=== PATIENT | female | born 1970 | race Caucasian/White ===

== ENCOUNTER 2023-09-14 01:44 | Emergency (ER) | payer MEDICARE, MEDICAID, SELFPAY ==
[2023-09-14 01:45] VITALS: PULSE 120; RESP 16; TEMP 35.9; O2SAT 98; BMI 37.8
--- NOTE | 2023-09-14 01:46 | EX.ED.DYSGE1 ---
HPI History of Present Illness Chief Complaint: Abd Pain [facility] Medical History (Updated 09/14/23 @ 01:46 by Angela Miranda) Diabetes Home Medications lisinopril 2.5 mg tablet 2.5 mg PO BID 09/02/13 [History Last Taken Unknown] oxycodone-acetaminophen 10 mg-325 mg tablet (Percocet) 1 tab PO Q6H PRN PRN Pain 09/02/13 [History Last Taken Unknown] sulfamethoxazole 800 mg-trimethoprim 160 mg tablet (Bactrim DS) 1 tab PO BID 7 days #14 tabs 09/14/23 [Rx Last Taken Unknown] Allergy/AdvReac Type Severity Reaction Status Date / Time No Known Allergies Allergy Verified 09/14/23 01:45 Social History Smoking Status: Current every day smoker EXAM Physical Exam Const Vital Signs: 09/14/23 01:45 09/14/23 01:49 09/14/23 03:13 Temperature 96.7 F L Temperature Source Temporal Pulse Rate 120 H 108 H Respiratory Rate 16 15 Blood Pressure 238/131 H 198/113 H Blood Pressure Mean 166 141 Pulse Ox 98 96 Oxygen Delivery Method Room Air MDM MDM MDM Narrative Medical decision making narrative: HISTORY OF PRESENT ILLNESS: 53-year-old female here with lower abdominal pain. She states he has been suffering from 2 days of lower abdominal pain, urinary frequency urgency she thinks may have a UTI. She denies any chest pain, shortness of breath. Denies any headache. Denies any focal neurological deficits. Notes she has not been compliant with her home blood pressure regiment. REVIEW OF SYSTEMS: Pertinent positives: Abdominal pain, frequency, urgency Pertinent negatives: Headache, shortness of breath, chest pain, focal weakness. PHYSICAL EXAM: Nursing triage notes reviewed, Vital signs reviewed Constitutional: please see mdm HENT: MMM Eyes: Pupils equal round and reactive to light, Extraocular muscles intact Neck: No stridor, no JVD, full neck ROM Lungs: Clear to auscultation, No wheezing or rales. No increased work of breathing, no conversational dyspnea, no accessory muscle use, no nasal flaring. No respiratory distress noted Heart: Regular rate and rhythm, No murmurs, No rubs and No gallops, 2+ distal pulses (radial, femoral, posterior tibial) in all extremities Abdomen: Soft, lower abdominal tenderness but no rigidity, rebound or guarding, no obvious peritoneal signs, no palpable pulsatile abdominal masses, no auscultated abdominal bruit : No CVAT Extremities: No edema Neuro: No focal neurological deficits, cranial nerves II through XII intact, 5/5 strength in all extremities. Intact sensation to light touch in all extremities, 2+ reflexes bilateral patella tendons. Normal gait. No ataxia. Skin: No rash or lesions noted MEDICAL DECISION MAKING: Chief Complaint: Abdominal pain External records reviewed: Imaging studies reviewed: No recent advanced imaging the abdomen or pelvis Factors affecting care: Type 2 diabetes Social determinants of health: Current everyday smoker History obtained from others: none Consults: none [facility] Narrative: The patient was initially hypertensive, tachycardic otherwise had a nonfocal neuroexam and had lower abdominal tenderness. Patient notes she is typically hypertensive with blood pressures in the 200s typically. Patient also states she normally gets whitecoat hypertension. She just wanted her urine checked and just wanted antibiotics. Urine was consistent with acute UTI. Vital signs improved after home blood pressure medicine and pain medicine. She was still tachycardic and hypertensive however so I offered additional workup to rule out any signs of endorgan dysfunction including EKG and labs. Patient refused. Patient was alert and oriented x 3. Patient was not clinically intoxicated. She stated she like to go home with oral antibiotics follow-up with her primary doctor. She promised to return if symptoms change or worsen. Given the patient was alert and orient x 3 respected her decision and discharged home with prescription for Bactrim and close PCP follow-up. She was given strict return precautions. The patient and/or family, caregivers express understanding. The patient and/or family, caregivers agrees with the plan. Shared decision making: I will have a discussion with the patient and or visitors regarding risk/benefits of further testing or admission. They will be made aware of of the risk/benefits inherent in this decision they will be given the opportunity to voice understanding. Total critical care time today provided was at least 0 minutes. This excludes separately billable procedures. Critical care time (if documented) is secondary to the patient having high probability of clinically significant/life threatening deterioration in the patient's condition which required my urgent intervention. Impression: 1. Acute cystitis 2. Poorly controlled Hypertension 3. Tachycardia Dispo: Discharge Lab Data Labs: Laboratory Results - last 24 hr 09/14/23 01:45 Urine Color Yellow Urine Clarity Cloudy Urine pH 6.0 Ur Specific [place] 1.015 Urine Protein 100 H Urine Glucose (UA) 1000 H Urine Ketones Negative Urine Occult Blood 250 H Urine Nitrite Positive H Urine Bilirubin Negative Urine Urobilinogen Normal Ur Leukocyte Esterase 500 H Urine RBC > 100 SEEN Urine WBC 50-100 SEEN Ur Squamous Epith Cells 0-5 SEEN Urine Bacteria 1+ Urine Mucus 0 SEEN Discharge Plan Triage Chief Complaint: Abd Pain ED Provider: Elmer Gomes Dx/Rx/DC Orders Instructions: ED Hypertension, Established, ED Cystitis Female Adult Prescriptions: New sulfamethoxazole-trimethoprim [Bactrim DS] 800-160 mg tablet 1 tab PO BID 7 Days Qty: 14 0RF No Action oxycodone-acetaminophen [Percocet] 1 EACH tablet 1 tab PO Q6H PRN PRN (Reason: Pain) Patient Comments: PAIN lisinopril 2.5 MG tablet 2.5 mg PO BID Patient Comments: BLOOD PRESSURE Primary Care Provider: Care Physician,No Primary Referrals: Britt Galvez MD [Med Staff - [employer]] - Activity Restrictions/Additional Instructions: Thank you for trusting us with your care today! Please take Tylenol (2 pills, 650 mg), ibuprofen (2 pills, 400 mg) every 6 hours as needed for pain and fever control. Please take antibiotics as prescribed. Take your already prescribed home blood pressure medicine. Please return to the emergency department if your symptoms change or worsen. Specifically if you develop chest pain, shortness of breath, headache, slurred speech, loss of movement or sensation. Vomiting if you cannot take your antibiotics by mouth. Please follow with your primary care physician for further outpatient evaluation and management. Disposition Disposition: Home, Self Care
[2023-09-14 01:49] VITALS: BP 238/131
[2023-09-14 02:16] LABS: Color, Urine Yellow (Yellow); Glucose, Dipstick 1000 mg/dl (Normal); Ketone-Dipstick Negative (Negative); Leukocyte Esterase-Dipstick 500 /ul (Negative); Nitrite-Dipstick Positive (Negative); Occult Blood-Urine 250 /ul (Negative); Protein-Dipstick 100 mg/dl (Negative); Specific Gravity, Urine 1.015 (1.002-1.030); Urine Bilirubin Dipstick Negative (Negative); Urine Clarity Cloudy (Clear); Urine Urobilinogen Normal (Normal)
[2023-09-14 02:17] LABS: Mucous, Urine 0 SEEN /hpf (<or=2+)
[2023-09-14 02:22] LABS: Red Blood Cells-Urine > 100 SEEN /hpf (0-5)
[2023-09-14 02:23] LABS: Bacteria 1+ /hpf (None Seen); Squamous Epithelial Cells - UA 0-5 SEEN /hpf (5-10); White Blood Cells 50-100 SEEN /hpf (0-5)
[2023-09-14] MEDS: Oxycodone/Apap 5/325 Tablet PO (02:24)
[2023-09-14] MEDS: Lisinopril 20 MG Tablet PO (02:25)
[2023-09-14] MEDS: amLODIPine 10 MG Tablet PO (02:25)
[2023-09-14] MEDS: Smz/Tmp Ds Tablet 1 TABLET PO (02:51)
[2023-09-14 03:13] VITALS: BP 198/113; PULSE 108; RESP 15; O2SAT 96
== END 2023-09-14 03:48 | disposition home or self-care (01) ==
PROVIDERS: Emergency Provider Emergency Medicine; Visit Provider Emergency Medicine
DX: N30.00 Acute cystitis without hematuria (principal); E11.9 Type 2 diabetes mellitus without complications; R00.0 Tachycardia, unspecified; F17.200 Nicotine dependence, unspecified, uncomplicated; I10 Essential (primary) hypertension; Z79.899 Other long term (current) drug therapy
CPT/HCPCS: 81001; 99282

== ENCOUNTER 2023-09-16 05:45 | Emergency (ER) | payer MEDICARE, MEDICAID, SELFPAY ==
[2023-09-16 05:46] VITALS: BP 254/124; PULSE 118; RESP 18; TEMP 35.9; O2SAT 98; BMI 38.5
[2023-09-16 05:48] VITALS: BP 223/122; PULSE 118; RESP 18; TEMP 35.9; O2SAT 98
[2023-09-16 06:13] LABS: Absolute Neutrophil Count 10.1 X10^3/uL (2.0-7.7); Basophil# 0.07 X10^3/uL; Basophil% 0.5 % (0-1); Eosinophil# 0.13 X10^3/uL; Eosinophils% 0.9 % (0-5); Hematocrit 48.3 % (37-47); Hemoglobin 16.4 g/dL (12.0-15.0); Lymphocyte % 24.3 % (19-41); Mean Corpuscular Hgb 30.3 pg (27.0-32.0); Mean Corpuscular Volume 89.3 fL (81-99); Mean Platelet Vol. 12.4 fl (6.2-12.0); Monocyte# 1.15 X10^3/uL; Monocyte% 7.6 % (0-10); NRBC Flagged by Analyzer 0 % (0-5); Neutrophil # 10.09 X10^3/uL (2.7-7.7); Neutrophil % 66.2 % (47-70); Platelet Count 274 K/mm3 (150-450); RBC Distribution Width CV 12.8 % (11.6-14.6); RBC Distribution Width SD 41.5 fl (35.1-43.9); Red Blood Count 5.41 M/mm3 (4.2-5.4); White Blood Count 15.2 K/mm3 (4.4-11.0)
[2023-09-16 06:21] LABS: Bacteria 0 SEEN /hpf (None Seen); Mucous, Urine 0 SEEN /hpf (<or=2+); Red Blood Cells-Urine 0 SEEN /hpf (0-5)
[2023-09-16 06:22] LABS: Color, Urine Yellow (Yellow); Glucose, Dipstick 1000 mg/dl (Normal); Ketone-Dipstick Negative (Negative); Leukocyte Esterase-Dipstick Negative /ul (Negative); Nitrite-Dipstick Negative (Negative); Occult Blood-Urine 10 /ul (Negative); Protein-Dipstick 100 mg/dl (Negative); Urine Bilirubin Dipstick Negative (Negative); Urine Clarity Sl. Cloudy (Clear); Urine Urobilinogen Normal (Normal)
[2023-09-16 06:28] LABS: Squamous Epithelial Cells - UA 0-5 SEEN /hpf (5-10); White Blood Cells 5-10 SEEN /hpf (0-5)
--- NOTE | 2023-09-16 06:30 | EDS_ITS ---
HPI HPI - GI History of Present Illness Chief Complaint: Abd Pain Informant: patient Abdominal Pain/Flank Pain Onset: Today and Hours (6) Context: Gradual Onset Timing: Continuous Quality: - (Pressure) Location: RLQ Worsened by: Nothing Relieved by: Nothing Nausea/Vomiting/Emesis GI Symptom: Positive for Nausea; Negative for Vomiting Onset: Today Diarrhea/Melena/Hematochezia GI Symptom: Negative for Diarrhea, Melena or Hematochezia Associated Symptoms Associated Symptoms: Negative for Dysuria, Frequency or Hematuria Narrative Narrative: Patient presents with abdominal pain that began suddenly approximately 6 hours prior to arrival. Patient states it has been constant. Patient describes as a pressure. Patient states it is mainly over the right lower abdomen. Patient admits to some nausea but denies any vomiting. Patient denies any diarrhea, melena, or hematochezia. Patient denies any dysuria, frequency, or hematuria. Patient does admit to decreased urine output. Patient states nothing makes her pain better nothing makes it worse. Patient does admit to a decreased appetite. Patient states last time she ate anything was 11 PM last night. Patient states she did have some Sprite this morning at 5:45 AM. [facility] Medical History (Updated 09/16/23 @ 09:[address] Yaniv Tarango DO) Diabetes HTN (hypertension) Psoriasis Home Medications lisinopril 2.5 mg tablet 2.5 mg PO BID 09/02/13 [History Last Taken Unknown] oxycodone-acetaminophen 10 mg-325 mg tablet (Percocet) 1 tab PO Q6H PRN PRN Pain 09/02/13 [History Last Taken Unknown] sulfamethoxazole 800 mg-trimethoprim 160 mg tablet (Bactrim DS) 1 tab PO BID 7 days #14 tabs 09/14/23 [Rx Last Taken Unknown] ciprofloxacin HCl 500 mg tablet 500 mg PO BID #14 TABLETS 09/16/23 [Rx Last Taken Unknown] Allergy/AdvReac Type Severity Reaction Status Date / Time No Known Allergies Allergy Verified 09/16/23 05:51 Surgical History (Updated 09/16/23 @ 09:[address] Yaniv Tarango DO) History of nasal surgery Hx of cholecystectomy Hx of lymph node biopsy Social History Smoking Status: Current every day smoker tobacco type: cigarettes ROS ROS ED Constitutional Constitutional ED: Denies chills or fever(s) Eyes Eyes: Denies blurry vision or change in vision ENT ENT ED: Denies rhinorrhea or sore throat Cardiovascular Cardiovascular: Denies chest pain or palpitations Respiratory/Chest Respiratory/Chest: Denies cough or dyspnea Gastrointestinal Gastrointestinal: Reports abdominal pain and nausea; Denies vomiting Genitourinary Genitourinary ED: Denies dysuria or hematuria Musculoskeletal Musculoskeletal: Reports back pain; Denies neck pain Integumentary Denies abscess or rash Neurologic Neurologic: Reports headache(s); Denies weakness Allergic/Immunologic Allergic/Immunologic ED: Denies mouth swelling or urticaria EXAM Physical Exam Const Vital Signs: 09/16/23 05:46 09/16/23 05:48 09/16/23 05:48 Temperature 96.6 F L 96.6 F L Temperature Source Temporal Temporal Pulse Rate 118 H 118 H Respiratory Rate 18 18 Blood Pressure 254/124 H 223/122 H 223/122 H Blood Pressure Mean 167 155 155 Pulse Ox 98 98 09/16/23 07:14 09/16/23 07:39 Temperature Temperature Source Pulse Rate 97 Respiratory Rate Blood Pressure 163/93 H 166/96 H Blood Pressure Mean 116 119 Pulse Ox Positive well nourished and well developed General Appearance ED: well developed and NAD HEENT Reports moist mucous membranes normocephalic and atraumatic Resp normal respiratory effort and clear to auscultation bilaterally Cardio regular rate and regular rhythm GI Palpation: soft and tender RLQ and suprapubic; Negative for guarding Extremity full ROM General Extremety ED: Negative for edema or tenderness General Extremity: Negative for edema Neuro CN's II-XII intact bilaterally, moves all extremities and no sensory deficits noted Sensorium / Orientation: alert Motor Exam: strength 5/5 throughout Psych mental status grossly normal MDM MDM MDM Narrative Medical decision making narrative: Differential diagnosis includes appendicitis, gastroenteritis, ovarian cyst, ectopic , urinary tract infection, ureteral calculus, and gastroenteritis. CBC will be obtained to assess for leukocytosis and anemia. Comprehensive metabolic profile will be obtained to assess for hepatic function, renal function, and electrolyte abnormality. Urinalysis will be obtained to assess for urinary tract infection. CT scan of the abdomen and pelvis will be obtained to assess for appendicitis and ureteral calculus. Lab Data Attestation: I reviewed the patient's lab results. Lab results narrative: CBC was reviewed. There is mild leukocytosis of 15.2. Hemoglobin was 16.4 and hematocrit was 48.3. Comprehensive metabolic profile was reviewed. Glucose was elevated at 42. Anion gap was normal. Sodium slightly low at 135. BUN was normal at 14. Creatinine was slightly elevated at 1.56. The remainder was essentially within normal limits. Urinalysis was reviewed. There are 5-10 white blood cells but a negative leukocyte esterases. Urine glucose was thousand. Labs: Laboratory Results - last 24 hr 09/16/23 09/16/23 05:55 06:10 WBC 15.2 H RBC 5.41 H Hgb 16.4 H Hct 48.3 H MCV 89.3 MCH 30.3 MCHC 34.0 RDW Std Deviation 41.5 RDW Coeff of [place] 12.8 Plt Count 274 MPV 12.4 H Immature Gran % (Auto) 0.500 Neut % (Auto) 66.2 Lymph % (Auto) 24.3 Gage % (Auto) 7.6 Eos % (Auto) 0.9 Baso % (Auto) 0.5 Absolute Neuts (auto) 10.1 H Absolute Lymphs (auto) 3.70 Nucleated RBC % 0 Sodium 135 L Potassium 3.8 Chloride 103 Carbon Dioxide 25.0 Anion Gap 7 BUN 14 Creatinine 1.56 H Estim Creat Clear Calc 34.90 Est GFR (MDRD) Af Amer 45 L Est GFR (MDRD) Non-Af 37 L BUN/Creatinine Ratio 9.0 L Glucose 482 H* Calcium 9.1 Total Bilirubin 0.40 AST 13 L ALT 19 Alkaline Phosphatase 168 H Total Protein 9.1 H Albumin 3.7 Globulin 5.4 H Albumin/Globulin Ratio 0.7 L Urine Color Yellow Urine Clarity Sl. Cloudy Urine pH 6.0 Ur Specific [place] 1.020 Urine Protein 100 H Urine Glucose (UA) 1000 H Urine Ketones Negative Urine Occult Blood 10 H Urine Nitrite Negative Urine Bilirubin Negative Urine Urobilinogen Normal Ur Leukocyte Esterase Negative Urine RBC 0 SEEN Urine WBC 5-10 SEEN Ur Squamous Epith Cells 0-5 SEEN Urine Bacteria 0 SEEN Urine Mucus 0 SEEN Radiography Diagnostic Testing: Clinical Impression(s) from Imaging Studies Abdomen/Pelvis CT 09/16/23 06:28 IMPRESSION: Thick-walled urinary bladder with adjacent stranding, consistent with cystitis. Mild bilateral hydroureteronephrosis with urothelial thickening in the bilateral ureters and adjacent periureteral stranding and fluid. This is consistent with bilateral pyelitis. No evidence of pyelonephritis at this time. No bowel obstruction or inflammation. Normal appendix. Small amount of free fluid. No free air or fluid collection. Electronically Signed: Michael Aguillon MD at 9:17 EST , CT scan of the abdomen pelvis was obtained. There is a thick-walled urinary bladder with adjacent stranding consistent with cystitis. There is mild bilateral hydroureteronephrosis with thickening of the bilateral ureters and adjacent periureteral stranding of the fluid consistent with bilateral pyelitis. There is no evidence of pyelonephritis. This was interpreted by the radiologist and was also independently reviewed by myself. Treatment and Re-Evaluation :: Patient was given morphine and Zofran initially. Patient was also given a dose of labetalol. Because of her elevated glucose, patient was given a dose of Humalog. Patient was also given IV fluids. Patient was given a dose of Cipro here. Patient was given a prescription for Cipro. Patient was instructed to drink plenty of fluids. Patient was instructed to follow-up with her primary care physician in 3 to 5 days for reevaluation. Patient was instructed to take Tylenol or ibuprofen as needed for any pain. Patient was instructed to monitor her blood sugars daily. Patient understood and was agreeable with the plan. All questions were answered. Discharge Plan Triage Chief Complaint: Abd Pain ED Provider: Yaniv Tarango Dx/Rx/DC Orders Clinical Impression: Acute cystitis, Hyperglycemia Instructions: ED Diabetic Hyperglycemia, ED Cystitis Female Adult Prescriptions: New ciprofloxacin HCl [ciprofloxacin HCl] 500 mg tablet 500 mg PO BID Qty: 14 0RF No Action oxycodone-acetaminophen [Percocet] 1 EACH tablet 1 tab PO Q6H PRN PRN (Reason: Pain) Patient Comments: PAIN lisinopril 2.5 MG tablet 2.5 mg PO BID Patient Comments: BLOOD PRESSURE sulfamethoxazole-trimethoprim [Bactrim DS] 800-160 mg tablet 1 tab PO BID 7 Days Qty: 14 0RF Primary Care Provider: KLAUDIA MCDERMOTT Referrals: KLAUDIA MCDERMOTT [Other] - 3-5 Days Care Physician,No Primary [Non-Staff] - Disposition Disposition: Home, Self Care
[2023-09-16] MEDS: Labetalol (Prefilled) 20 MG/4 ML IV (06:37)
[2023-09-16] MEDS: Morphine 4 MG/ML Syringe IV (06:41)
[2023-09-16] MEDS: Ondansetron 4 MG/2 ML Vial IV (06:41)
--- NOTE | 2023-09-16 06:52 | ED.RN ---
PT STATES I WANT MY MEDICATIONS PUSHED THRU THE LOW PORT. THIS RN STATES I DON'T PUSH THRU THAT PORT I DON'T WANT YOU TO HAVE A WEIRD FEELING . PT STATES I LIKE THAT RAM FEELING. THIS RN INFORMS PT THAT THAT IS A PROBLEM. MEDS PUSHED THRU HIGHER PORT
[2023-09-16 07:06] LABS: ALB/GLOB Ratio 0.7 RATIO (0.9-2.4); AST(SGOT) 13 U/L (15-37); Alanine Aminotransfer ALT/SGPT 19 U/L (13-56); Albumin, Serum 3.7 g/dL (3.2-5.0); Alkaline Phosphatase 168 U/L (45-117); Anion Gap 7 (5-15); BUN 14 mg/dL (7-18); Calcium,Total 9.1 mg/dL (8.5-10.1); Chloride 103 mmol/L (98-107); Creatinine, Serum 1.56 mg/dL (0.55-1.02); EST Glomerular Filtration Rate 37 mL/min (>60); Est Glom Filt Rate - Afr Amer 45 mL/min (>60); Globulin 5.4 g/dL (2.2-4.2); Glucose 482 mg/dL (74-106); Potassium 3.8 mmol/L (3.5-5.1); Protein, Total 9.1 g/dL (6.4-8.2); Sodium Level 135 mmol/L (136-145)
[2023-09-16 07:14] VITALS: BP 163/93
[2023-09-16] MEDS: Insulin Lispro 100 UNIT/ML INSULN.PEN 12 UNIT SC (07:35)
[2023-09-16 07:39] VITALS: BP 166/96; PULSE 97
[2023-09-16] MEDS: 0.9% Normal Saline (1000mL) 1,000 ML 1000 ML IV (09:28)
== END 2023-09-16 10:03 | disposition home or self-care (01) ==
PROVIDERS: Emergency Provider Emergency Medicine; Visit Provider Emergency Medicine
DX: N30.00 Acute cystitis without hematuria (principal); E11.65 Type 2 diabetes mellitus with hyperglycemia; F17.210 Nicotine dependence, cigarettes, uncomplicated
CPT/HCPCS: 74177; 80053; 81001; 85025; 87086; 87088; 96361; 96374; 96375; 99282; J7030; Q9967; A4216; J2405

== ENCOUNTER 2024-03-14 11:42 | Inpatient (IN) | payer MEDICARE, MEDICAID, SELFPAY ==
[2024-03-14] VITALS (12 sets, daily range): BP systolic 131–208; BP diastolic 80–134; PULSE 77–113; RESP 16–26; TEMP 35.8–36.4; O2SAT 93–97; BMI 36.1; BMI 36.5
--- NOTE | 2024-03-14 11:51 | EKG12_ITS ---
Test Reason : CHEST PAIN Blood Pressure : / mmHG Vent. Rate : 106 BPM Atrial Rate : 106 BPM P-R Int : 152 ms QRS Dur : 094 ms QT Int : 372 ms P-R-T Axes : 058 -30 107 degrees QTc Int : 494 ms Sinus tachycardia Left axis deviation Minimal voltage criteria for LVH, may be normal variant ( [place] product ) T wave abnormality, consider lateral ischemia Abnormal ECG Confirmed by MICHELE MOLINA, FLORENCIA ([id number]), certified pesticide applicator LAUREN AKINS ([id number]) on 03/18/2024 11:11:18 AM Referred By: Confirmed By:FLORENCIA BAUTISTA MD
[2024-03-14 12:28] LABS: Absolute Lymphocyte Count 3.17 X10^3/uL (0.83-4.51); Absolute Neutrophil Count 6.8 X10^3/uL (2.0-7.7); Basophil# 0.07 X10^3/uL; Basophil% 0.6 % (0-1); Eosinophils% 1.8 % (0-5); Hematocrit 46.8 % (37-47); Hemoglobin 15.5 g/dL (12.0-15.0); Lymphocyte # 3.17 X10^3/ul (0.83-4.51); Lymphocyte % 28.5 % (19-41); Mean Corp Hgb Conc 33.1 g/dL (32-36); Mean Corpuscular Hgb 28.9 pg (27.0-32.0); Mean Corpuscular Volume 87.2 fL (81-99); Mean Platelet Vol. 13.5 fl (6.2-12.0); Monocyte# 0.92 X10^3/uL; Monocyte% 8.3 % (0-10); NRBC Flagged by Analyzer 0 % (0-5); Neutrophil # 6.75 X10^3/uL (2.7-7.7); Neutrophil % 60.5 % (47-70); Platelet Count 196 K/mm3 (150-450); RBC Distribution Width CV 13.3 % (11.6-14.6); RBC Distribution Width SD 42.1 fl (35.1-43.9); Red Blood Count 5.37 M/mm3 (4.2-5.4); White Blood Count 11.1 K/mm3 (4.4-11.0)
--- NOTE | 2024-03-14 12:29 | CT_ITS ---
STUDY: CTA CHEST REASON FOR EXAM: Female, 53 years old. Chest pain RADIATION DOSAGE (If Supplied By Facility): CTDIvol = ( 25.24 ) mGy, DLP = ( 468.16 ) mGycm TECHNIQUE: The examination was performed with the intravenous administration of [id number] 100ML. Post-processing of the angiographic images was performed, with multiplanar reformation and 3D reconstruction. Individualized dose optimization techniques were used for this CT. COMPARISON: None. FINDINGS: Normal enhancement of the main pulmonary artery and right and left pulmonary arteries. Normal enhancement of the bilateral peripheral pulmonary arteries. There is no demonstrated pulmonary embolism. Normal thoracic aorta and visualized great vessels. There is no demonstrated aortic dissection. There are calcifications of the coronary arteries. Normal mediastinum. Normal hilar regions. Normal visualized trachea and bronchi. The lungs are well expanded. Questionable mild degree of vascular congestion. Normal pleura. Normal chest wall structures. Normal osseous structures. Normal visualized upper abdomen. CT/CTA Chest W/WO Contrast IMPRESSION: Questionable mild degree of vascular congestion. Electronically Signed: Diaz Chaudhary MD at 13:37 EDT ,
[2024-03-14 12:42] LABS: D-Dimer Quantitative (DVT/PE) 0.51 FEU/ug/m (0.27-0.49)
[2024-03-14] MEDS: Morphine 4 MG/ML Syringe IV (12:42)
[2024-03-14] MEDS: Aspirin 81 MG TAB.CHEW 324 MG PO (12:42)
[2024-03-14] MEDS: Ondansetron 4 MG/2 ML Vial IV (12:42)
[2024-03-14] MEDS: Labetalol (Compound) 20 MG/4 ML SYRINGE IV (12:51)
[2024-03-14 12:53] LABS: Anion Gap 7 (5-15); BUN 15 mg/dL (7-18); BUN/Creat Ratio 11.2 RATIO (10-20); Calcium,Total 9.4 mg/dL (8.5-10.1); Chloride 100 mmol/L (98-107); Creatinine, Serum 1.34 mg/dL (0.55-1.02); EST Glomerular Filtration Rate 44 mL/min (>60); Est Glom Filt Rate - Afr Amer 53 mL/min (>60); Estimated Creatinine Clearance 53.07 ml/min; Glucose 498 mg/dL (74-106); Potassium 4.1 mmol/L (3.5-5.1); Sodium Level 131 mmol/L (136-145); Troponin-I HS (w/2H Reflex) 5221 pg/mL (3.0-54.0)
--- NOTE | 2024-03-14 13:01 | ED.VIS.CHEST ---
HPI History of Present Illness Chief Complaint: Chest Pain Narrative Narrative: 53-year-old female presenting with chest pain. She states it started yesterday. She describes it as a squeezing or pressure in the center of her chest. She feels it up into her jaw and into her left arm/shoulder. Patient states that she does not have a history of cardiac disease. Her last stress test she states was over 2 years ago. Patient does have a history of hypertension and states she has not taken her medicine since March 2022. She states she supposed to be on several different medications but has not taken them. She states she has not seen her primary care provider. Patient states that she does not see a primary care provider because she has been depressed and not wanting to leave the house. She does have a mild headache. She denies any visual changes. No nausea or vomiting. PE Risk Factors: Negative for Recent Travel/Surgery, Recent Immobilization, Prior DVT or PE, Cancer or OCP + Smoking + >/=35 PFSH PFSH Medical History Psoriasis HTN (hypertension) Diabetes Home Medications ?Medication ?Instructions ?Recorded ?Last Taken ?Type lisinopril 2.5 mg tablet 2.5 mg PO BID 09/02/13 Unknown History oxycodone-acetaminophen 10 mg-325 1 tab PO Q6H PRN PRN Pain 09/02/13 Unknown History mg tablet (Percocet) sulfamethoxazole 800 1 tab PO BID 7 days #14 tabs 09/14/23 Unknown Rx mg-trimethoprim 160 mg tablet (Bactrim DS) Allergy/AdvReac Type Severity Reaction Status Date / Time No Known Allergies Allergy Verified 03/14/24 11:45 Surgical History History of nasal surgery Hx of lymph node biopsy Hx of cholecystectomy Social History Smoking Status: Current every day smoker tobacco type: cigarettes ROS ROS ED Constitutional Constitutional ED: Denies chills or fever(s) Eyes Eyes: Denies blurry vision or change in vision ENT ENT ED: Denies ear pain or sore throat Cardiovascular Cardiovascular: Reports chest pain; Denies palpitations or racing heartbeat Respiratory/Chest Respiratory/Chest: Denies cough, dyspnea or sputum Gastrointestinal Gastrointestinal: Denies abdominal pain, constipation, diarrhea, nausea or vomiting Genitourinary Genitourinary ED: Denies dysuria, hematuria or urinary frequency Musculoskeletal Musculoskeletal: Denies arthralgias, myalgias or neck pain Integumentary Denies abscess, Abrasions or rash Neurologic Neurologic: Reports headache(s); Denies paresthesias or weakness Psychiatric Psychiatric: Denies anxiety, depression, suicidal ideation or suicidal thoughts Endocrine Endocrinology: Denies polydipsia or polyuria EXAM Physical Exam Const Vital Signs: 03/14/24 11:42 03/14/24 11:51 03/14/24 12:16 Temperature 96.4 F L Temperature Source Temporal Pulse Rate 113 H Respiratory Rate 20 H Respiratory Effort Normal Non-Labored Blood Pressure 208/134 H Blood Pressure Mean 158 Blood Pressure Source Blood Pressure Position Blood Pressure Location Pulse Ox 97 Oxygen Delivery Method Room Air Room Air Oxygen Flow Rate (L/min) 03/14/24 12:42 03/14/24 13:00 03/14/24 13:30 Temperature Temperature Source Pulse Rate 108 H 108 H 86 Respiratory Rate 24 H 16 Respiratory Effort Blood Pressure 197/133 H 146/101 H 140/100 H Blood Pressure Mean 154 116 113 Blood Pressure Source Monitor Blood Pressure Position Semi-Fowlers Blood Pressure Location Right Arm Pulse Ox 94 93 Oxygen Delivery Method Room Air Room Air Oxygen Flow Rate (L/min) 03/14/24 14:00 03/14/24 14:05 Temperature Temperature Source Pulse Rate 83 Respiratory Rate 26 H Respiratory Effort Blood Pressure 139/97 H 139/97 H Blood Pressure Mean 111 111 Blood Pressure Source Monitor Blood Pressure Position Semi-Fowlers Blood Pressure Location Right Arm Pulse Ox 97 Oxygen Delivery Method Nasal Cannula Oxygen Flow Rate (L/min) 2 Positive well nourished General Appearance ED: NAD; Negative for pallor HEENT Reports moist mucous membranes normocephalic Eyes PERRL and EOMs intact bilaterally Chest Wall inspection of chest normal and palpation of chest normal Resp normal respiratory effort and clear to auscultation bilaterally Auscultation: Negative for rales, rhonchi or wheezes Cardio regular rhythm Rate: tachycardic Neuro oriented x3 and CN's II-XII intact bilaterally Sensorium / Orientation: awake and alert Motor Exam: strength 5/5 throughout Psych mental status grossly normal Skin no rashes or lesions noted and no wounds General Skin Exam: Negative for jaundice or pallor Heart Score History: Moderately Suspicious ECG: Normal Age: >45 - <65 years Risk Factors: >/= 3 Risk Factors or History of CAD Troponin: >/=3 x Normal Limit Score: 6 MDM MDM MDM Narrative Medical decision making narrative: 53-year-old female present chest pain and mild headache. Subarachnoid hemorrhage, ACS, pneumonia, PE, aortic dissection, hypertensive, dehydration, anemia, electrolyte abnormalities. Patient medicated with 20 mg of labetalol, morphine, Zofran. CBC will be obtained to assess white blood cell count, hemoglobin, platelets. BMP to assess renal function, electrolytes, glucose. High-sensitivity troponin and EKG to assess for ischemia/dysrhythmia. Chest x-ray to rule out pneumonia or CHF. However D-dimer was obtained and is elevated at 0.51. Will obtain a CTA of the chest. CBC shows white blood cell count of 11.1. Hemoglobin 15.5. Platelets are normal at 196. Sodium slightly low at 131 however this is likely due to her glucose at 498. This is likely pseudohyponatremia. Creatinine 1.34. This is slightly better than previous. High-sensitivity troponin came back at 5200.1. EKG interpreted by myself shows a sinus tachycardia with a rate of 106 bpm. No STEMI. Chest x-ray interpreted by myself shows concern for vascular congestion/CHF discussed the case with Dr. Ortega who recommended a nitroglycerin drip which will be started. Will obtain a CT of the chest prior to starting a heparin drip. CTA of the chest was negative for PE or dissection but does show CHF. CT brain negative for acute intracranial pathology. Heparin drip was started. Patient's blood pressure is now down to 139/97. Patient was given 15 units of Humalog for the hospitalist. Her symptoms have been controlled with the nitroglycerin drip. Patient in stable condition. Impression: 1. Medical noncompliance 2. Hypertensive emergency 3. NSTEMI 4. Headache 5. Hyperglycemia 6. CHF Lab Data Attestation: I reviewed the patient's lab results. Labs: Laboratory Results - last 24 hr 03/14/24 12:10 WBC 11.1 H RBC 5.37 Hgb 15.5 H Hct 46.8 MCV 87.2 MCH 28.9 MCHC 33.1 RDW Std Deviation 42.1 RDW Coeff of Nhung 13.3 Plt Count 196 MPV 13.5 H Immature Gran % (Auto) 0.300 Neut % (Auto) 60.5 Lymph % (Auto) 28.5 Anson % (Auto) 8.3 Eos % (Auto) 1.8 Baso % (Auto) 0.6 Absolute Neuts (auto) 6.8 Absolute Lymphs (auto) 3.17 Nucleated RBC % 0 PT 13.7 INR 1.0 APTT 27.1 D-Dimer Quant (PE/DVT) 0.51 H* Sodium 131 L Potassium 4.1 Chloride 100 Carbon Dioxide 24.0 Anion Gap 7 BUN 15 Creatinine 1.34 H Estim Creat Clear Calc 53.07 Est GFR (MDRD) Af Amer 53 L Est GFR (MDRD) Non-Af 44 L BUN/Creatinine Ratio 11.2 Glucose 498 H* Calcium 9.4 Troponin I High Sens 5221 H* Radiography Diagnostic Testing: Clinical Impression(s) from Imaging Studies Chest CTA 03/14/24 12:29 IMPRESSION: Questionable mild degree of vascular congestion. Electronically Signed: Diaz Chaudhary MD at 13:37 EDT , Brain CT 03/14/24 13:02 IMPRESSION: Focal area of decreased attenuation in the region of the body of the left caudate nucleus. Age of which cannot be determined at this time. Electronically Signed: Diaz Chaudhary MD at 13:36 EDT , Chest X-Ray 03/14/24 13:05 IMPRESSION: Mild degree of vascular congestion. Electronically Signed: Diaz Chaudhary MD at 13:18 EDT , Discharge Plan Triage Chief Complaint: Chest Pain ED Provider: Ernie Uribe Dx/Rx/DC Orders Prescriptions: No Action oxycodone-acetaminophen [Percocet] 1 EACH tablet 1 tab PO Q6H PRN PRN (Reason: Pain) Patient Comments: PAIN lisinopril 2.5 MG tablet 2.5 mg PO BID Patient Comments: BLOOD PRESSURE sulfamethoxazole-trimethoprim [Bactrim DS] 800-160 mg tablet 1 tab PO BID 7 Days Qty: 14 0RF Primary Care Provider: KLAUDIA MCDERMOTT Referrals: KLAUDIA MCDERMOTT [Other] Print Language: Turkmen
--- NOTE | 2024-03-14 13:02 | CT_ITS ---
STUDY: CT BRAIN WITHOUT CONTRAST REASON FOR EXAM: Female, 53 years old. Headache RADIATION DOSAGE (If Supplied By Facility): CTDIvol = ( 44.99 ) mGy, DLP = ( 863.60 ) mGycm TECHNIQUE: Transaxial CT imaging of the brain was performed without administration of intravenous contrast material. Individualized dose optimization techniques were used for this CT. COMPARISON: No relevant priors. FINDINGS: Normal soft tissue structures. Normal calvarium. Normal size ventricles and extra-axial spaces for the patient''s age. Focal area of decreased attenuation deep in the left cerebral hemisphere most likely within the body of the left caudate nucleus. Clinical correlation is recommended. Normal basal ganglia and thalami. Normal brainstem. Normal cerebellum. There is no intracranial hemorrhage. There are no findings of an acute ischemic infarction. Atherosclerotic calcification of the vertebral arteries Normal visualized paranasal sinuses. CT/Brain/Head without Contrast IMPRESSION: Focal area of decreased attenuation in the region of the body of the left caudate nucleus. Age of which cannot be determined at this time. Electronically Signed: Diaz Chaudhary MD at 13:36 EDT ,
--- NOTE | 2024-03-14 13:05 | RAD_ITS ---
STUDY: X-RAY CHEST REASON FOR EXAM: Female, 53 years old. Chest pain TECHNIQUE: Single AP portable view of the chest. COMPARISON: Comparison is made with prior study dated September 06, 2013. FINDINGS: EKG electrodes are seen. Mild elevation of the right hemidiaphragm. Mild degree of vascular congestion. There is no demonstrated pleural abnormality. There is borderline cardiomegaly. Normal mediastinum and haylie. Normal visualized pulmonary arteries. Normal visualized aortic arch and descending thoracic aorta. Normal visualized thoracic spine. Normal visualized ribs, clavicles, and shoulders. There is no demonstrated abnormality of the visualized soft tissue structures of the upper abdomen. RAD/Chest 1 View (Portable) IMPRESSION: Mild degree of vascular congestion. Electronically Signed: Diaz Chaudhary MD at 13:18 EDT ,
[2024-03-14] MEDS: Nitroglycerin Infusion 250 ML 3 MG CONT INF (13:30)
[2024-03-14 13:53] LABS: Partial Thromboplast Time 27.1 Seconds (24.1-36.2); Prothrombin Time (Protime)PT. 13.7 SECONDS (11.7-14.9)
[2024-03-14] MEDS: HEPARIN/D5w 25,000 UNITS 25,000 UNITS/250 ML IV.SOLN. 10 UNITS CONT INF (14:07)
[2024-03-14] MEDS: Heparin Injection (Vial) 5,000 UNIT/ML VIAL 4000 UNIT IV (14:08)
[2024-03-14 14:21] LABS: Reflex Troponin-HS? (from REC) Y
--- NOTE | 2024-03-14 14:30 | PCM.HP.STD ---
HPI - General General Date of Admission: 03/14/24 Date of Service: 03/14/24 Chief Complaint: Chest pain started yesterday with radiation to left arm HPI Narrative NEIL WELLINGTON, is a 53 F came to ED for chest pain which was midsternal in location with radiation to neck and jaw and left arm since yesterday night. She does not follow PCP, last seen more than a year ago. She described her chest pain as pressure, feeling like heavyweight associated with mild shortness of breath but no dizziness or lightheadedness. Chest pain was a spontaneous onset when she was doing her house chores. She said she had similar chest pain about more than a year ago and went to [facility] where probably she had cardiac cath but she could not tell me details whether she had a stent or not. She is not very aware of her own medical history. In ED, her blood pressure was very high and chest pain of anginal nature, started on IV nitro drip. Blood pressure is improved and chest pain has almost resolved. She is not aware of family history of CAD or [place] in first-degree family active. She smokes cigarettes about 2 pack/day since age of 11 or 12. Denies drinking alcohol or substance use. [facility] Medical History Psoriasis HTN (hypertension) Diabetes Home Medications ?Medication ?Instructions ?Recorded ?Last Taken ?Type lisinopril 2.5 mg tablet 2.5 mg PO BID 09/02/13 Unknown History oxycodone-acetaminophen 10 mg-325 1 tab PO Q6H PRN PRN Pain 09/02/13 Unknown History mg tablet (Percocet) sulfamethoxazole 800 1 tab PO BID 7 days #14 tabs 09/14/23 Unknown Rx mg-trimethoprim 160 mg tablet (Bactrim DS) Allergy/AdvReac Type Severity Reaction Status Date / Time No Known Allergies Allergy Verified 03/14/24 11:45 Surgical History History of nasal surgery Hx of lymph node biopsy Hx of cholecystectomy Social History Smoking Status: Current every day smoker tobacco type: cigarettes ROS ROS Narrative Constitutional: Reports fatigue and weakness. No fever. HEENT: Reports systems reviewed and no addt'l complaints, except as documented Respiratory/Chest: Denies history of COPD but chronic smoker. CVS: As described in HPI Gastrointestinal: Denies coffee ground emesis, hematemesis or vomiting Genitourinary: Denies burning urination or new urinary tract symptoms Musculoskeletal: Denies acute joint pain or limited range of motion. No acute injury Neurologic: Denies seizure-like symptoms. skin: No ulcer. No rash Endocrinology: DM type II, uncontrolled. Blood sugar very high. Reports systems reviewed and no addt'l complaints, except as documented Hematologic/Lymphatic: Reports systems reviewed and no addt'l complaints, except as documented Rest 14 ROS are negative except as mentioned in HPI Vital Signs Vital Signs Vital Signs: 03/14/24 11:42 03/14/24 11:51 03/14/24 12:16 Temperature 96.4 F L Temperature Source Temporal Pulse Rate 113 H Respiratory Rate 20 H Respiratory Effort Normal Non-Labored Blood Pressure 208/134 H Blood Pressure Mean 158 Blood Pressure Source Blood Pressure Position Blood Pressure Location Pulse Ox 97 Oxygen Delivery Method Room Air Room Air Oxygen Flow Rate (L/min) 03/14/24 12:42 03/14/24 13:00 03/14/24 13:30 Temperature Temperature Source Pulse Rate 108 H 108 H 86 Respiratory Rate 24 H 16 Respiratory Effort Blood Pressure 197/133 H 146/101 H 140/100 H Blood Pressure Mean 154 116 113 Blood Pressure Source Monitor Blood Pressure Position Semi-Fowlers Blood Pressure Location Right Arm Pulse Ox 94 93 Oxygen Delivery Method Room Air Room Air Oxygen Flow Rate (L/min) 03/14/24 14:00 03/14/24 14:05 Temperature Temperature Source Pulse Rate 83 Respiratory Rate 26 H Respiratory Effort Blood Pressure 139/97 H 139/97 H Blood Pressure Mean 111 111 Blood Pressure Source Monitor Blood Pressure Position Semi-Fowlers Blood Pressure Location Right Arm Pulse Ox 97 Oxygen Delivery Method Nasal Cannula Oxygen Flow Rate (L/min) 2 Weight Weight: 204 lb Body Mass Index (BMI) 36.1 Physical Exam Narrative General: Alert, Oriented x3, Cooperative, obesity grade 370 BMI 36.1 kg/m? HEENT: Atraumatic, PERRLA, EOMI, Normocephalic Oral: Oral mucosa dry no Gingival or Mucosal Lesions/ Ulcerations Neck: Supple, No JVD, Negative Carotid Bruits Chest wall/Lungs: Air entry diminished in bilateral lung bases. No crepitation/rhonchi Cardiovascular: Sinus tachycardia. Normal S1, Normal S2, systolic murmur present. Abdomen: Bowel Sounds Present, Soft, Non Tender, Non-Distended : No dysuria. No renal angle tenderness. No suprapubic tenderness. Extremities: No edema, Capillary Refill Less than 3 Seconds Skin: No rashes, No breakdown Musculoskeletal: No Tenderness to Palpation of Joints or Extremities. ROM full and adequate Neurological: Cranial nerves II-XII grossly intact, DTR 2+/4. No acute focal neurological deficit. Psych/Mental Status: Flat affect. Results Lab / Micro Data 03/14/24 12:10 03/14/24 12:10 Labs: Laboratory Results - last 24 hr 03/14/24 12:10: WBC 11.1 H, RBC 5.37, Hgb 15.5 H, Hct 46.8, MCV 87.2, MCH 28.9, MCHC 33.1, RDW Std Deviation 42.1, RDW Coeff of Nhung 13.3, Plt Count 196, MPV 13.5 H, Immature Gran % (Auto) 0.300, Neut % (Auto) 60.5, Lymph % (Auto) 28.5, [place]ombs % (Auto) 8.3, Eos % (Auto) 1.8, Baso % (Auto) 0.6, Absolute Neuts (auto) 6.8, Absolute Lymphs (auto) 3.17, Nucleated RBC % 0, PT 13.7, INR 1.0, APTT 27.1, D-Dimer Quant (PE/DVT) 0.51 H*, Sodium 131 L, Potassium 4.1, Chloride 100, Carbon Dioxide 24.0, Anion Gap 7, BUN 15, Creatinine 1.34 H, Estim Creat Clear Calc 53.07, Est GFR (MDRD) Af Amer 53 L, Est GFR (MDRD) Non-Af 44 L, BUN/Creatinine Ratio 11.2, Glucose 498 H*, Calcium 9.4, Troponin I High Sens 5221 H* Imaging Radiology Impression Chest CTA 03/14/24 12:29 IMPRESSION: Questionable mild degree of vascular congestion. Electronically Signed: Diaz Chaudhary MD at 13:37 EDT , Brain CT 03/14/24 13:02 IMPRESSION: Focal area of decreased attenuation in the region of the body of the left caudate nucleus. Age of which cannot be determined at this time. Electronically Signed: Diaz Chaudhary MD at 13:36 EDT , Chest X-Ray 03/14/24 13:05 IMPRESSION: Mild degree of vascular congestion. Electronically Signed: Diaz Chaudhary MD at 13:18 EDT , Assessment & Plan Assessment/Plan (1) NSTEMI, initial episode of care: (2) Heart failure: QUALIFIERS: Heart failure type: unspecified Heart failure chronicity: acute Qualified Code(s): I50.9 - Heart failure, unspecified PLAN: Plan This is 59-year-old female came to ED for chest pain associated shortness of breath suggestive of anginal quality and high troponin consistent with non-STEMI 1. ACS/Non-STEMI: Patient is being admitted in PCU. Twelve-lead EKG shows sinus tachycardia 106 bpm, QTc 494 ms. [place] 152 ms, LAD with LVH. Currently on fixed dose of nitro drip 5 mics per minute and taper off. Patient blood pressure and chest pain has much improved. Patient also had labetalol 20 mg IV cycle cardiac enzymes. 2D echo is ordered. First troponin 5221. Second 1 pending. Patient had aspirin 324 mg and started on baby aspirin, metoprolol succinate, low-dose lisinopril and high intensity statin. Started on IV heparin drip. Shank Turner is consulted. Plan for possible heart catheter tomorrow AM. 2. Acute heart failure, exact classification, chronicity or etiology unclear possible ischemic cardiomyopathy: Chest x-ray and CTA showed pulmonary venous congestion. Lasix 40 mg IV 1 dose and titrate as needed. Rest as already mentioned above 3. Diabetes mellitus type 2: Glucose 490 8 in the morning, uncontrolled. Humalog insulin 15 units one-time given. Accu-Chek insulin coverage Humalog sliding scale. Started on Lantus 50 units subcutaneous daily 4. Hypertension, uncontrolled: Blood pressure was 208/134 in triage which was controlled 140/124. Will try to keep blood pressure 140-150 systolic for next 48 hours. Patient also had mild headache for which CT head was done even before starting nitro drip. It shows focal area of decreased attenuation in the region of body of left caudate nucleus, asymptomatic, probably chronic finding. Patient not having any focal signs and symptoms of stroke. 5. Chronically smoker: Patient smokes about 2 packs/day advised quitting smoking. 6. DVT prophylaxis already on therapeutic dose of heparin drip. Living will/advanced directive/end of life care: Patient does not have living will or advanced directive. She does not tending to power of state attorney. She has son and next of kin. After discussion of benefits/risks procedures involved with full code, DNR CC arrest and DNR CC, the patient opted for full code. Patient does want artificial life support including intubation, tube feed, ventilator and/chest compression, central venous catheter, vasopressor and DC shock if needed Total time spent in [id number] encounter in discussion of advanced directive 17 minutes. L Laboratory Results 03/14/24 12:10: WBC 11.1 H, RBC 5.37, Hgb 15.5 H, Hct 46.8, MCV 87.2, MCH 28.9, MCHC 33.1, RDW Std Deviation 42.1, RDW Coeff of Nhung 13.3, Plt Count 196, MPV 13.5 H, Immature Gran % (Auto) 0.300, Neut % (Auto) 60.5, Lymph % (Auto) 28.5, Toombs % (Auto) 8.3, Eos % (Auto) 1.8, Baso % (Auto) 0.6, Absolute Neuts (auto) 6.8, Absolute Lymphs (auto) 3.17, Nucleated RBC % 0, PT 13.7, INR 1.0, APTT 27.1, D-Dimer Quant (PE/DVT) 0.51 H*, Sodium 131 L, Potassium 4.1, Chloride 100, Carbon Dioxide 24.0, Anion Gap 7, BUN 15, Creatinine 1.34 H, Estim Creat Clear Calc 53.07, Est GFR (MDRD) Af Amer 53 L, Est GFR (MDRD) Non-Af 44 L, BUN/Creatinine Ratio 11.2, Glucose 498 H*, Calcium 9.4, Troponin I High Sens 5221 H* 03/14/24 14:45: Magnesium Pending, Troponin I High Sens Pending Clinical Impression(s) from Imaging Studies Chest CTA 03/14/24 12:29 IMPRESSION: Questionable mild degree of vascular congestion. Brain CT 03/14/24 13:02 IMPRESSION: Focal area of decreased attenuation in the region of the body of the left caudate nucleus. Age of which cannot be determined at this time. Chest X-Ray 03/14/24 13:05 IMPRESSION: Mild degree of vascular congestion. Charges/Coding Visit Charges Inpatient E&M: 92144 Init Hosp L3 Procedures Hospitalists Procedures: 69633 Advncd Care Plan 30 Min
[2024-03-14] MEDS: Insulin Lispro 100 UNIT/ML INSULN.PEN 15 UNIT SC (14:49)
[2024-03-14 15:48] LABS: Magnesium 1.6 mg/dL (1.6-2.6); Troponin-I HS 7528 pg/mL (3.0-54.0)
--- NOTE | 2024-03-14 15:48 | EKG12_ITS ---
Test Reason : AM EKG Blood Pressure : / mmHG Vent. Rate : 089 BPM Atrial Rate : 089 BPM P-R Int : 144 ms QRS Dur : 094 ms QT Int : 418 ms P-R-T Axes : 048 -41 102 degrees QTc Int : 508 ms Normal sinus rhythm Left axis deviation Minimal voltage criteria for LVH, may be normal variant ( Holland product ) T wave abnormality, consider lateral ischemia Prolonged QT Abnormal ECG When compared with ECG of 14-MAR-2024 17:10, MANUAL COMPARISON REQUIRED, DATA IS UNCONFIRMED Confirmed by Ricky Wagoner ([id number]), staff editor LAUREN AKINS ([id number]) on 03/19/2024 6:11:55 AM Referred By: Confirmed By:Ricky Wagoner
[2024-03-14] MEDS: 0.9% Saline Lock 10 ML Syringe IV (16:27)
[2024-03-14] MEDS: Metoprolol(XL)Succ 25 MG Tablet PO (16:27)
[2024-03-14] MEDS: Furosemide 40 MG/4 ML Vial IV (16:27)
[2024-03-14] MEDS: Insulin Lispro 100 UNIT/ML INSULN.PEN SC ×2 (16:29→20:47)
[2024-03-14] MEDS: Insulin Glargine-YFGN 100 UNIT/ML Pen 15 UNIT SC (16:30)
--- NOTE | 2024-03-14 16:51 | ECHOCS_ITS ---
Reason For Study: NSTEMI Procedure This was a 2D Doppler, Color Flow transthoracic echocardiogram. The study was technically difficult. Contrast injection was performed. Exam performed portable in patient room. Left Ventricle Normal LV size. Moderate concentric left ventricular hypertrophy. The estimated ejection fraction is 40 %. Moderate global left ventricular systolic dysfunction. Stage 2 diastolic dysfunction. Right Ventricle Mildly dilated right ventricle. Mild global right ventricular systolic dysfunction. Atria The left atrium is mildly enlarged. Normal right atrium. Mitral Valve Mild diffuse mitral valve thickening. Mild (1+) mitral valve insufficiency. Tricuspid Valve Normal tricuspid valve. Mild to moderate (1-2+) tricuspid valve insufficiency. Pulmonary artery systolic pressure is 46 mmHg. Aortic Valve Trisinus/trileaflet aortic valve. Mild focal aortic valve calcification. There is no aortic stenosis. Pulmonic Valve Normal pulmonic valve. Trivial pulmonic valve insufficiency. Great Vessels Normal aortic root. Pericardium/Pleural No pericardial effusion. Medication Diluted definity 2ml given slow IV push to enhance endocardial definition. MMode/2D Measurements & Calculations LVIDd: 4.7 cm IVSd: 1.6 cm Ao root diam: 3.3 cm LVIDs: 4.1 cm LVPWd: 1.6 cm LA dimension: 4.7 cm RVDd: 4.3 cm FS: 12.6 % LAV(MOD-bp): 62.4 ml LVAd ap4: 36.0 cm2 SV(MOD-sp4): 59.8 ml LAV(MOD-bp) Indexed: 31.9 ml/m2 LVLd ap4: 7.5 cm LAV(MOD-sp2): 75.9 ml EDV(MOD-sp4): 137.3 ml LAV(MOD-sp4): 50.0 ml EDV(sp4-el): 146.0 ml LVAs ap4: 25.0 cm2 LVLs ap4: 6.4 cm ESV(MOD-sp4): 77.5 ml ESV(sp4-el): 82.6 ml EF(MOD-sp4): 43.6 % EF(sp4-el): 43.4 % SV(sp4-el): 63.4 ml LA A4 area: 19.0 cm2 RA A4 area: 16.2 cm2 TAPSE: 1.5 cm Time Measurements MV dec time: 0.18 sec Doppler Measurements & Calculations MV E max butch: 150.6 cm/sec Lat Peak E' Butch: 5.0 cm/sec Med Peak E' Butch: 3.9 cm/sec MV A max butch: 86.3 cm/sec E/E' lat: 30.2 E/E' med: 38.4 MV E/A: 1.7 MV V2 max: 165.3 cm/sec MV P1/2t max butch: 165.3 cm/sec Ao V2 max: 141.4 cm/sec MV max P.0 mmHg MV P1/2t: 65.0 msec Ao max P.0 mmHg MV V2 mean: 81.9 cm/sec Ao V2 mean: 98.0 cm/sec MV mean P.4 mmHg MV dec slope: 744.5 cm/sec2 Ao mean P.4 mmHg MV V2 VTI: 40.7 cm MVA(P1/2t): 3.4 cm2 Ao V2 VTI: 22.1 cm AV (velocity ratio): 0.60 LV V1 max: 94.9 cm/sec MR max butch: 526.7 cm/sec PA V2 max: 84.6 cm/sec LV V1 max P.6 mmHg MR max P.0 mmHg PA max PG (full): 1.5 mmHg LV V1 mean P.8 mmHg MR mean butch: 380.9 cm/sec PA V2 mean: 54.9 cm/sec LV V1 mean: 61.7 cm/sec MR mean P.1 mmHg PA mean PG (full): 0.61 mmHg LV V1 VTI: 13.3 cm MR VTI: 169.3 cm TR max butch: 326.1 cm/sec TR max P.5 mmHg ECHO/Echo Complete W/ Contrast Interpretation Summary The estimated ejection fraction is 40 %. Stage 2 diastolic dysfunction. Moderate global left ventricular systolic dysfunction. Mildly dilated right ventricle. Mild global right ventricular systolic dysfunction. The left atrium is mildly enlarged. Mild diffuse mitral valve thickening. Mild (1+) mitral valve insufficiency. Mild to moderate (1-2+) tricuspid valve insufficiency. The study was technically difficult. Contrast injection was performed. Ordering Physician: Dmitry Retana Performed By: Peter Todd RCS
[2024-03-14 16:53] LABS: Bedside Glucose 297 mg/dL (74-106)
--- NOTE | 2024-03-14 17:08 | PCM.CONS.C ---
Assessment & Plan Assessment/Plan (1) NSTEMI, initial episode of care: PLAN: Agree with continuing IV heparin at this time. Chest pain is resolved. Agree with aspirin, beta-nando, statin, JAQUELINE inhibitor. Patient's creatinine is slightly elevated compared to baseline. Her blood sugar is also significantly elevated. Her blood pressure was significantly elevated on arrival and has improved now. Possible coronary angiogram tomorrow. (2) Hypertensive urgency: HPI Consult Data Date of Consult: 03/14/24 HPI Narrative Reason for Consultation: Chest pain, non-STEMI, uncontrolled hypertension HPI Narrative: NEIL WELLINGTON, is a 53 F who presents with chest pain that started yesterday. Patient's blood pressure was significantly elevated in the ER. She had a CT chest that was negative for PE and dissection. Her high-sensitivity troponin was a little over 5000 and then 7500. Patient was started on a nitro drip and heparin drip. Chest pain has now resolved. Patient is a poor historian. She describes what appears to be a heart cath at an outside hospital but does not recall the results or if she had a stent. [facility] Medical History (Updated 03/14/24 @ 17:[address] Linus Ortega MD) Psoriasis HTN (hypertension) Diabetes Home Medications ?Medication ?Instructions ?Recorded ?Last Taken ?Type lisinopril 2.5 mg tablet 2.5 mg PO BID 09/02/13 Unknown History oxycodone-acetaminophen 10 mg-325 1 tab PO Q6H PRN PRN Pain 09/02/13 Unknown History mg tablet (Percocet) sulfamethoxazole 800 1 tab PO BID 7 days #14 tabs 09/14/23 Unknown Rx mg-trimethoprim 160 mg tablet (Bactrim DS) Allergy/AdvReac Type Severity Reaction Status Date / Time No Known Allergies Allergy Verified 03/14/24 11:45 Surgical History History of nasal surgery Hx of lymph node biopsy Hx of cholecystectomy Social History Smoking Status: Current every day smoker tobacco type: cigarettes Physical Exam Const alert, oriented x3 and no apparent distress HEENT normocephalic Eyes no scleral icterus Resp normal respiratory effort and clear to auscultation bilaterally Cardio regular rate Extremity no pedal edema Skin no rashes or lesions noted Psych mental status grossly normal Risk Stratification Risk Stratification Applicable: No Charges/Coding Visit Charges Inpatient E&M: 52189 Init Hosp L2 Objective Data Vital Signs: Vital Signs Temp Pulse Resp BP Pulse Ox O2 Del Method O2 Flow Rate 97.1 F L 77 16 160/91 H 96 Room Air 2 03/14/24 15:43 03/14/24 16:27 03/14/24 15:43 03/14/24 16:27 03/14/24 15:43 03/14/24 16:12 03/14/24 15:00 Oxygen Flow Rate (L/min) 2 Oxygen Delivery Method Room Air Weight: 206 lb 5.643 oz Body Mass Index (BMI) 36.5 Intake & Output: Intake and Output for Last 24 Hours 03/12/24 03/13/24 03/14/24 23:59 23:59 23:59 Intake Total 1.75 / 1.75 Balance 1.75 / 1.75 Lab / Micro Data 03/14/24 12:10 03/14/24 12:10 Labs: Laboratory Results - last 24 hr 03/14/24 12:10: WBC 11.1 H, RBC 5.37, Hgb 15.5 H, Hct 46.8, MCV 87.2, MCH 28.9, MCHC 33.1, RDW Std Deviation 42.1, RDW Coeff of Nhung 13.3, Plt Count 196, MPV 13.5 H, Immature Gran % (Auto) 0.300, Neut % (Auto) 60.5, Lymph % (Auto) 28.5, [place] % (Auto) 8.3, Eos % (Auto) 1.8, Baso % (Auto) 0.6, Absolute Neuts (auto) 6.8, Absolute Lymphs (auto) 3.17, Nucleated RBC % 0, PT 13.7, INR 1.0, APTT 27.1, D-Dimer Quant (PE/DVT) 0.51 H*, Sodium 131 L, Potassium 4.1, Chloride 100, Carbon Dioxide 24.0, Anion Gap 7, BUN 15, Creatinine 1.34 H, Estim Creat Clear Calc 53.07, Est GFR (MDRD) Af Amer 53 L, Est GFR (MDRD) Non-Af 44 L, BUN/Creatinine Ratio 11.2, Glucose 498 H*, Calcium 9.4, Troponin I High Sens 5221 H* 03/14/24 14:45: Magnesium 1.6, Troponin I High Sens 7528 H* 03/14/24 16:26: POC Glucose 297 H Cardiology Labs/Tests 03/14/24 12:10: WBC 11.1 H, RBC 5.37, Hgb 15.5 H, Hct 46.8, MCV 87.2, MCH 28.9, MCHC 33.1, Plt Count 196, MPV 13.5 H, Immature Gran % (Auto) 0.300, Neut % (Auto) 60.5, Lymph % (Auto) 28.5, [place] % (Auto) 8.3, Eos % (Auto) 1.8, Baso % (Auto) 0.6, Absolute Neuts (auto) 6.8, Nucleated RBC % 0, PT 13.7, INR 1.0, APTT 27.1, D-Dimer Quant (PE/DVT) 0.51 H*, Sodium 131 L, Potassium 4.1, Chloride 100, Carbon Dioxide 24.0, Anion Gap 7, BUN 15, Creatinine 1.34 H, Est GFR (MDRD) Af Amer 53 L, Est GFR (MDRD) Non-Af 44 L, BUN/Creatinine Ratio 11.2, Glucose 498 H*, Calcium 9.4 03/14/24 14:45: Magnesium 1.6 Rhythm: EKG: ECHO: Stress Test: Cardiac Cath: PCI: CT Surgery: Holter monitor: EPS: PPM: CXR: Chest CT Scan: Radiography Diagnostic Testing: Radiology Impression Chest CTA 03/14/24 12:29 IMPRESSION: Questionable mild degree of vascular congestion. Electronically Signed: Diaz Chaudhary MD at 13:37 EDT , Brain CT 03/14/24 13:02 IMPRESSION: Focal area of decreased attenuation in the region of the body of the left caudate nucleus. Age of which cannot be determined at this time. Electronically Signed: Diaz Chaudhary MD at 13:36 EDT , Chest X-Ray 03/14/24 13:05 IMPRESSION: Mild degree of vascular congestion. Electronically Signed: Diaz Chaudhary MD at 13:18 EDT ,
[2024-03-14] MEDS: Lisinopril 10 MG Tablet PO (18:08)
[2024-03-14 18:38] LABS: Troponin-I HS 17010 pg/mL (3.0-54.0)
[2024-03-14 20:27] LABS: Partial Thromboplast Time 42.8 Seconds (24.1-36.2)
[2024-03-14] MEDS: Atorvastatin Calcium 40 MG Tablet PO (20:49)
[2024-03-14 21:15] LABS: Bedside Glucose 203 mg/dL (74-106)
[2024-03-15] VITALS (14 sets, daily range): BP systolic 113–150; BP diastolic 72–103; PULSE 75–98; RESP 16–18; TEMP 36.4–37.2; O2SAT 91–100
[2024-03-15 03:04] LABS: Absolute Lymphocyte Count 3.39 X10^3/uL (0.83-4.51); Absolute Neutrophil Count 8.1 X10^3/uL (2.0-7.7); Basophil# 0.08 X10^3/uL; Basophil% 0.6 % (0-1); Eosinophil# 0.25 X10^3/uL; Eosinophils% 1.9 % (0-5); Hematocrit 45.1 % (37-47); Hemoglobin 14.5 g/dL (12.0-15.0); Lymphocyte # 3.39 X10^3/ul (0.83-4.51); Lymphocyte % 26.3 % (19-41); Mean Corp Hgb Conc 32.2 g/dL (32-36); Mean Corpuscular Hgb 28.5 pg (27.0-32.0); Mean Corpuscular Volume 88.6 fL (81-99); Mean Platelet Vol. 12.6 fl (6.2-12.0); Monocyte# 0.99 X10^3/uL; Monocyte% 7.7 % (0-10); NRBC Flagged by Analyzer 0 % (0-5); Neutrophil # 8.14 X10^3/uL (2.7-7.7); Neutrophil % 63.1 % (47-70); Platelet Count 208 K/mm3 (150-450); RBC Distribution Width CV 13.3 % (11.6-14.6); RBC Distribution Width SD 43.4 fl (35.1-43.9); Red Blood Count 5.09 M/mm3 (4.2-5.4); White Blood Count 12.9 K/mm3 (4.4-11.0)
[2024-03-15 03:14] LABS: Partial Thromboplast Time 38.7 Seconds (24.1-36.2)
[2024-03-15] MEDS: Heparin Injection (Vial) 5,000 UNIT/ML VIAL IV (03:27)
[2024-03-15 03:46] LABS: Anion Gap 9 (5-15); BUN 17 mg/dL (7-18); BUN/Creat Ratio 15.5 RATIO (10-20); Calcium,Total 9.4 mg/dL (8.5-10.1); Chloride 100 mmol/L (98-107); Cholesterol 190 mg/dL (200); EST Glomerular Filtration Rate 55 mL/min (>60); Est Glom Filt Rate - Afr Amer 67 mL/min (>60); Estimated Creatinine Clearance 65.05 ml/min; Glucose 284 mg/dL (74-106); High Density Lipoprotein 47 mg/dL; Potassium 3.5 mmol/L (3.5-5.1); Sodium Level 135 mmol/L (136-145); Thyroid Stim Hormone (TSH) 3.66 uIU/mL (0.358-3.74); Triglycerides 135 mg/dL; Very Low Density Lipoprotein 27 mg/dL (5-40)
--- NOTE | 2024-03-15 05:55 | EKG12_ITS ---
Test Reason : Blood Pressure : / mmHG Vent. Rate : 075 BPM Atrial Rate : 075 BPM P-R Int : 160 ms QRS Dur : 098 ms QT Int : 452 ms P-R-T Axes : 065 -41 128 degrees QTc Int : 504 ms Normal sinus rhythm Left axis deviation Minimal voltage criteria for LVH, may be normal variant ( Sanju product ) T wave abnormality, consider lateral ischemia Prolonged QT Abnormal ECG When compared with ECG of 14-MAR-2024 12:17, MANUAL COMPARISON REQUIRED, DATA IS UNCONFIRMED Confirmed by Ricky Wagoner ([id number]), market editor LAUREN AKINS ([id number]) on 03/19/2024 6:13:11 AM Referred By: MILVIA Confirmed By:Ricky Wagoner
[2024-03-15] MEDS: Aspirin E.C. 81 MG Tablet PO (06:17)
[2024-03-15] MEDS: Metoprolol(XL)Succ 25 MG Tablet PO (06:18)
[2024-03-15 06:35] LABS: Bedside Glucose 273 mg/dL (74-106)
[2024-03-15 07:56] LABS: Hemoglobin A1c 12.7 % (3.8-5.6)
[2024-03-15 08:59] LABS: Partial Thromboplast Time 34.2 Seconds (24.1-36.2)
--- NOTE | 2024-03-15 09:42 | PN.CARD_ITS ---
Documented by User: Katelin RUTHERFORD, SANGEETA 03/15/24 09:50 Subjective Subjective Patient seen and examined today. She currently does not have any chest pain. She does not have any shortness of breath. She notes that she feels slightly better than yesterday. In talking with patient she has not been to her primary care doctors in quite some time. She admits to not being compliant with her medications. Her troponins trended to 17,010. Objective Data Vital Signs: Vital Signs Temp Pulse Resp BP Pulse Ox O2 Del Method O2 Flow Rate 97.6 F L 93 16 138/87 H 93 Room Air 2 03/15/24 06:12 03/15/24 06:18 03/15/24 06:12 03/15/24 06:18 03/15/24 08:23 03/15/24 08:23 03/14/24 15:00 Oxygen Flow Rate (L/min) 2 Oxygen Delivery Method Room Air Weight: 206 lb 5.643 oz Body Mass Index (BMI) 36.5 Intake & Output: Intake and Output for Last 24 Hours 03/13/24 03/14/24 03/15/24 23:59 23:59 23:59 Intake Total 459.43 / 459.43 73.7 / 73.7 Balance 459.43 / 459.43 73.7 / 73.7 Lab / Micro Data 03/15/24 02:53 03/15/24 02:53 Labs: Laboratory Results - last 24 hr 03/14/24 12:10: WBC 11.1 H, RBC 5.37, Hgb 15.5 H, Hct 46.8, MCV 87.2, MCH 28.9, MCHC 33.1, RDW Std Deviation 42.1, RDW Coeff of Nhung 13.3, Plt Count 196, MPV 13.5 H, Immature Gran % (Auto) 0.300, Neut % (Auto) 60.5, Lymph % (Auto) 28.5, [place] % (Auto) 8.3, Eos % (Auto) 1.8, Baso % (Auto) 0.6, Absolute Neuts (auto) 6.8, Absolute Lymphs (auto) 3.17, Nucleated RBC % 0, PT 13.7, INR 1.0, APTT 27.1, D-Dimer Quant (PE/DVT) 0.51 H*, Sodium 131 L, Potassium 4.1, Chloride 100, Carbon Dioxide 24.0, Anion Gap 7, BUN 15, Creatinine 1.34 H, Estim Creat Clear Calc 53.07, Est GFR (MDRD) Af Amer 53 L, Est GFR (MDRD) Non-Af 44 L, BUN/Creatinine Ratio 11.2, Glucose 498 H*, Calcium 9.4, Troponin I High Sens 5221 H* 03/14/24 14:45: Magnesium 1.6, Troponin I High Sens 7528 H* 03/14/24 16:26: POC Glucose 297 H 03/14/24 17:59: Troponin I High Sens 14353 H* 03/14/24 19:59: APTT 42.8 H 03/14/24 20:46: POC Glucose 203 H 03/15/24 02:53: WBC 12.9 H, RBC 5.09, Hgb 14.5, Hct 45.1, MCV 88.6, MCH 28.5, MCHC 32.2, RDW Std Deviation 43.4, RDW Coeff of Nhung 13.3, Plt Count 208, MPV 12.6 H, Immature Gran % (Auto) 0.400, Neut % (Auto) 63.1, Lymph % (Auto) 26.3, [place] % (Auto) 7.7, Eos % (Auto) 1.9, Baso % (Auto) 0.6, Absolute Neuts (auto) 8.1 H, Absolute Lymphs (auto) 3.39, Nucleated RBC % 0, APTT 38.7 H, Sodium 135 L , Potassium 3.5, Chloride 100, Carbon Dioxide 26.0, Anion Gap 9, BUN 17, C reatinine 1.10 H, Estim Creat Clear Calc 65.05, Est GFR (MDRD) Af Amer 67, Est GFR (MDRD) Non-Af 55 L, BUN/Creatinine Ratio 15.5, Glucose 284 H, Hemoglobin A1c 12.7 H, Calcium 9.4, Triglycerides 135, Cholesterol 190, LDL Cholesterol 116, VLDL Cholesterol 27, HDL Cholesterol 47, TSH 3.66 03/15/24 06:15: POC Glucose 273 H 03/15/24 08:45: APTT 34.2 Cardiology Labs/Tests 03/14/24 12:10: WBC 11.1 H, RBC 5.37, Hgb 15.5 H, Hct 46.8, MCV 87.2, MCH 28.9, MCHC 33.1, Plt Count 196, MPV 13.5 H, Immature Gran % (Auto) 0.300, Neut % (Auto) 60.5, Lymph % (Auto) 28.5, [place] % (Auto) 8.3, Eos % (Auto) 1.8, Baso % (Auto) 0.6, Absolute Neuts (auto) 6.8, Nucleated RBC % 0, PT 13.7, INR 1.0, APTT 27.1, D-Dimer Quant (PE/DVT) 0.51 H*, Sodium 131 L, Potassium 4.1, Chloride 100, Carbon Dioxide 24.0, Anion Gap 7, BUN 15, Creatinine 1.34 H, Est GFR (MDRD) Af Amer 53 L, Est GFR (MDRD) Non-Af 44 L, BUN/Creatinine Ratio 11.2, Glucose 498 H* , Calcium 9.4 03/14/24 14:45: Magnesium 1.6 03/14/24 19:59: APTT 42.8 H 03/15/24 02:53: WBC 12.9 H, RBC 5.09, Hgb 14.5, Hct 45.1, MCV 88.6, MCH 28.5, MCHC 32.2, Plt Count 208, MPV 12.6 H, Immature Gran % (Auto) 0.400, Neut % (Auto) 63.1, Lymph % (Auto) 26.3, [place] % (Auto) 7.7, Eos % (Auto) 1.9, Baso % (Auto) 0.6, Absolute Neuts (auto) 8.1 H, Nucleated RBC % 0, APTT 38.7 H, Sodium 135 L, Potassium 3.5, Chloride 100, Carbon Dioxide 26.0, Anion Gap 9, BUN 17, C reatinine 1.10 H, Est GFR (MDRD) Af Amer 67, Est GFR (MDRD) Non-Af 55 L, BUN/Creatinine Ratio 15.5, Glucose 284 H, Hemoglobin A1c 12.7 H, Calcium 9.4, Triglycerides 135, Cholesterol 190, LDL Cholesterol 116, VLDL Cholesterol 27, HDL Cholesterol 47 03/15/24 08:45: APTT 34.2 Rhythm: Sinus rhythm. ECHO: Pending. Radiography Diagnostic Testing: Radiology Impression Chest CTA 03/14/24 12:29 IMPRESSION: Questionable mild degree of vascular congestion. Electronically Signed: Diaz Chaudhary MD at 13:37 EDT , Brain CT 03/14/24 13:02 IMPRESSION: Focal area of decreased attenuation in the region of the body of the left caudate nucleus. Age of which cannot be determined at this time. Electronically Signed: Diaz Chaudhary MD at 13:36 EDT , Chest X-Ray 03/14/24 13:05 IMPRESSION: Mild degree of vascular congestion. Electronically Signed: Diaz Chaudhary MD at 13:18 EDT , Physical Exam Const alert, oriented x3 and no apparent distress HEENT normocephalic Eyes no scleral icterus Resp normal respiratory effort and clear to auscultation bilaterally Cardio regular rate and regular rhythm GI normal to inspection, nondistended, normoactive bowel sounds, soft to palpation and non-tender Extremity no pedal edema Peripheral Pulses: Yes pulses 2+ throughout Skin no rashes or lesions noted Psych mental status grossly normal Assessment & Plan Assessment/Plan (1) NSTEMI, initial episode of care: PLAN: Agree with continuing IV heparin at this time. Chest pain is resolved. Agree with aspirin, beta-nando, statin, JAQUELINE inhibitor. Patient's creatinine is slightly elevated compared to baseline. Her blood sugar is also significantly elevated. Her blood pressure was significantly elevated on arrival and has improved now. Possible coronary angiogram tomorrow. (2) Hypertensive urgency: PLAN: Plan * Patient is agreeable to proceed with diagnostic heart catheterization for her non-STEMI. * Continue with heparin, metoprolol, lisinopril, atorvastatin, aspirin. * Blood pressure better controlled on medications. Will continue to follow and adjust accordingly. * Echocardiogram is pending. Further recommendations will be made based on echocardiogram and diagnostic heart catheterization. Would like to follow-up with patient on an outpatient basis. Charges/Coding Visit Charges Inpatient E&M: 11660 Subs Hosp L3 Documented by User: Dr. Ilir Lr MD 03/15/24 12:18 Lab / Micro Data 03/15/24 02:53 03/15/24 02:53 Assessment & Plan Assessment/Plan (1) NSTEMI, initial episode of care: (2) Hypertensive urgency: PLAN: Plan Cardiac care plan; Patient underwent diagnostic heart catheterization for her non-STEMI. * Continue with heparin, metoprolol, lisinopril, atorvastatin, aspirin. * Blood pressure better controlled on medications. Will continue to follow and adjust accordingly. * Echocardiogram reviewed ejection fraction in the range of around 40% contrast echo used using Definity. Patient underwent cardiac catheterization which revealed significant lesion involving the ostium of the circumflex was occluded circumflex after the pheresed OM1 As well ostial lesion involving ramus intermedius Patient remained stable in the Research Nurse Practitioner with no further episode of chest pain Very high risk for PCI will plan for transfer to a tertiary cardiac facility. The risk will involve stenting post ostium of the circumflex as well as ramus intermedius which can compromise the left main. Will need surgical backup for procedure which is a high risk Patient condition is a stable The parameters for blood pressure and blood sugar is improving on the current treatment. And she has been stable hemodynamically in the Research Nurse Practitioner Will continue to monitor and follow-up clinically prior to transfer Ilir Lr MD,FACC,[facility]
--- NOTE | 2024-03-15 10:00 | CASEMGMT ---
Insurance review for hospitals In-network with [facility] Dual Complete insurance if transfer is recommended is as follows: [facility], [place], [facility], [facility], [facility], [facility], [facility] ([facility]), [facility], [facility], and . Rhonda Waller, Discharge Planning Asst.
--- NOTE | 2024-03-15 10:21 | CASEMGMT ---
PATTIE LUTHER Assessment Face to Face with patient for initial transition planning/care coordination assessment. PATTIE LUTHER introduced self and role at [facility], pt voices understanding. Pt is A&Ox4 and is resting comfortably in bed and is calm. Pt is about go for a cardiac cath. Care providers, pharmacy, and demographics verified. Admitting dx: CP, NSTEMI PCP: Luz Mera Specialists: Denies Preferred Pharmacy: [facility] [place] Insurance: [facility], [facility] Prescription Benefit: Yes LNOK: Bishnu Jiménez (SO) Living Arrangements: Pt lives with her SO in a single story home with 4 steps to enter ADLs/IADLs: Ind with ADLs. Pt states that her SO andfriend help her at home with IADLs Transportation: Self. 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 Pt states that she would like home oxygen. CM to follow to see if she qualifies. A verbal list of local in-network DME companies provided to the pt. Pt prefers [facility] HHC/SNF: Denies history Pt?s goal: Home Plan: Pt wishes to return home once she is medically ready. Pt states that it is too early to tell if she will need HHC or OP therapy at time of DC. Pt 6-Click score is 20. There currently is no therapy ordered. Pt is going for a heart cath at this time. CM to follow to ensure a safe DC from [facility]. Gina Michel RN, CM
--- NOTE | 2024-03-15 12:04 | PCM.OP.PRO ---
Procedure Report Date of Procedure: 03/15/24 Cardiac catheterization report. 1. Moderate sedation 2. Selective left coronary angiography 3. Selective right coronary angiography 4. Measurement of LVEDP 5. Pullback pressure 6. Placement of TR band to close the right radial artery arteriotomy site. Preprocedure diagnosis; 53-year-old patient history of diabetes hypertension presented with symptoms of chest pain evaluated In the hospital with an EKG, echocardiogram, series of high sensitive troponins Patient has hypertension started on medical treatment also has diabetes with blood sugar significant elevated Has non-ST elevation MN. Troponin I was significant elevated Maximum 7528. Patient treated with heparin aspirin statin Blood sugar improved from 498-2 84 Serum creatinine improved from 1.34-1.1. And blood pressure was better controlled. Based on the clinical presentation patient was taken to the Business System Consultant. Consent; Risk and benefit of the procedure explained in detail patient elected to proceed informed consent obtained. Moderate sedation patient sedated intravenous Versed intravenous fentanyl. Access; 6 [place] sheath placed in the right radial artery. Diagnostic catheter used 1. 5 [place] JL 3.5 #2 5 [place] JR4 Procedure in detail; Patient brought to the Business System Consultant in fasting state Right radial artery area prepped and draped in the usual sterile fashion And will proceed with access under fluoroscopic guidance. Will proceed with 5 [place] JL 3.5 diagnostic catheter advanced sending aorta cannulated the left main multiple views of the left coronary system were obtained. The catheter exchanged for 5 [place] JR4 catheter advanced sending aorta and cannulated the RCA without difficulty The same catheter was used to cross aortic valve and placed in the mid ventricle LVEDP measured And a pullback pressure recorded Following this all angiographic views were studied. And all catheter were removed TR band applied to right radial artery area No complication in the Business System Consultant Findings Hemodynamics LVEDP elevated to 27 mmHg There is no systolic gradient across aortic valve. Coronary angiography 1. Left main normal angiographically trifurcated into LAD, ramus intermedius and left circumflex 2. Left anterior descending artery mid LAD at the site of the second septal branch had nonobstructive atherosclerosis of around 30 to 40% the left anterior descending is a large vessel has a jagged diagonal branch with no significant atherosclerosis Mid and distal LAD had no significant atherosclerosis With a JULISSA-3 flow noted in the LAD 3. Ostial ramus intermedius of around 60-70% 4. Ostial left circumflex with haziness of around 70% Mid left circumflex after the OM1 is occluded. Conclusion recommendation 53-year-old patient with history of diabetes, hypertension presented with symptoms of chest pain with a clinical diagnosis of non-ST elevation MN Echocardiographic evaluation showed moderate LV systolic function ejection fraction in the range of around 40%. The finding of cardiac catheterization revealed significant lesion involving the ostium of the left circumflex which is moderate to large vessel as well as ramus intermedius. Patient remained stable clinically does not have any active chest pain. Start the patient on treatment with heparin aspirin statin beta-nando JAQUELINE inhibitor. I recommended to transfer this patient to a tertiary cardiac center due to the tight lesion involving the ostium of the circumflex as well as lesion in the large ramus intermedius with a risk of plaque shift compromise in the left main Patient will require high risk PCI at the tertiary cardiac center. Ilir Lr MD,FACC,[facility]
[2024-03-15] MEDS: Insulin Glargine-YFGN 100 UNIT/ML Pen 15 UNIT SC (12:21)
--- NOTE | 2024-03-15 12:25 | CASEMGMT ---
Social Work- SW met with pt to complete SDOH. Pt indicates that transportation, food, and utility information would be beneficial. SW provided resources for food stamps, home delivered meals, food pantries, people to people, community action, and [employer] card. No other resources requested at this time. SW will remain available to follow. BARBARA Calhoun
[2024-03-15] MEDS: Potassium Chloride Oral Tablet 20 MEQ 40 MEQ PO (12:27)
[2024-03-15 12:41] LABS: Bedside Glucose 282 mg/dL (74-106)
--- NOTE | 2024-03-15 14:07 | DS.PCM_ITS ---
Providers Date of Admission: 03/14/24 Date of Discharge: 03/15/24 Primary Care Physician: KLAUDIA MCDERMOTT Consultations 03/14/24 15:48 Consult: Cardiology Routine Consulting Provider: Linus Ortega Reason for Consult: Chest Pain/nstemi/acute HF EMERGENT Consult: No MD Notified: Yes Date Notified: 03/14/24 Time Notified: 14:26 Method of Notification: ED Physician Initiated Reason For Visit: CHEST PAIN/ NSTEMI Diagnosis Discharge Diagnosis (1) NSTEMI, initial episode of care: Status: Acute Code(s): I21.4 - Non-ST elevation (NSTEMI) myocardial infarction (2) Hypertensive urgency: Status: Acute Code(s): I16.0 - Hypertensive urgency Medications at Discharge Home Medications lisinopril 2.5 mg tablet 2.5 mg PO BID 09/02/13 oxycodone-acetaminophen 10 mg-325 mg tablet (Percocet) 1 tab PO Q6H PRN PRN Pain 09/02/13 sulfamethoxazole 800 mg-trimethoprim 160 mg tablet (Bactrim DS) 1 tab PO BID 7 days #14 tabs 09/14/23 Hospital Course Operations None Procedures 2-D Echocardiogram, Cardiac catheterization, EKG and - (CT brain/chest x-ray) Summary of Care Provided Minutes Spent on Discharge: 37 Hospital Course: Ms. Jennings is a 53-year-old white female who presents emergency department [facility] on 03/14/2020 for complaining of chest pain that started on the and had associated radiation to the left arm. She indicated also radiated to her left jaw and reported the pain felt like pressure and was associated with mild shortness of breath. It started while she was doing house chores. She indicated she had similar chest pain about a year prior to presenting here and went to [facility] at which time it sounds like she may have had a cardiac catheterization but could not tell me if any intervention was required. She was a poor historian. She is not aware of any familial history of coronary artery disease and has a history of hypertension and diabetes and has been smoking about 2 packs of cigarettes daily since she was 11 or 12 years old. Vital signs on presentation to the emergency department showed temperature of 96.4, heart rate 113, respiratory 20, blood pressure was 208/134 with a repeat of 197/133 and then 146/101, pulse ox was 97% on room air. Her CBC showed a mild leukocytosis and erythrocytosis with a white count of 11.1 and hemoglobin of 15.5. Coags were unremarkable. D-dimer was 0.51 which is slightly elevated but normalized when corrected for age. Chemistry panel showed mild hyponatremia with a sodium of 131 however this was pseudohyponatremia as her blood glucose level was 498. Serum creatinine was 1.34 and initial troponin was 5221 with a delta of 7528. Her third troponin was 17,010. Lipid panel was obtained and she was found of a total cholesterol of 190/LDL 116/HDL 47/triglycerides of 135. TSH was normal at 3.66. EKG on presentation did not show any signs of acute ST-T wave changes. In the emergency department she was started on a nitro drip which resulted in improvement in blood pressure and resolution of her chest pain. She was also started on heparin drip. She was admitted to telemetry floor and placed on aspirin, high-dose statin, JAQUELINE inhibitor, and metoprolol and cardiology was consulted. She was maintained on the nitro and heparin drip and cardiology evaluated the patient and after conversation with the patient elected to go to the [facility]. Cardiac catheterization revealed a normal left main with an LAD showing 30 to 40% stenosis and JULISSA flow 3, ostial ramus intermedius around 60 to 70% stenosis in ostial left circumflex with haziness of around 70% stenosis. The mid left circumflex after the OM 1 segment was occluded. Given these findings transfer to tertiary center was recommended due to the tightness of the lesion involving the ostium of the circumflex as well as a lesion of the large ramus intermedius with risk of plaque shift potentially compromising the left main resulting in a high risk PCI. Echo was performed and showed an EF of around 40%. Cardiology called [facility] and the patient was accepted by Dr. Max from cardiology. Patient was transferred to main campus medical center on 03/15/2024. Discharge diagnoses: NSTEMI DM-2 uncontrolled-A1c 12.7 Acute HFrEF CKD stage II Hypertension Hyperlipidemia Suspected COPD Chronic tobacco abuse Obesity Physical Exam Const alert, oriented x3, no apparent distress, no limitations and well nourished; Negative for average body habitus or healthy appearing Constitutional Narrative: Middle-aged, white female, obese, lying in left side-lying, appears comfortable, minimally interactive and affect seems flat, nontoxic, appears markedly older than stated age General Appearance: cooperative, comfortable, well kempt, well developed, disheveled and appears older than stated age Orientation / Consciousness: awake, oriented to person, oriented to place and oriented to time Exam Limitations: no limitations Nutritional Appearance: obese HEENT normocephalic, head/scalp atraumatic, hearing grossly normal bilaterally and moist oral mucous membranes HEENT Narrative: Dentition is poor, Mallampati is 2-3, no thrush Eyes PERRL, EOMs intact bilaterally and conjunctivae normal Eyes Narrative: No scleral icterus Neck no lymphadenopathy and supple Neck Narrative: Trachea midline, no thyroid enlargement Resp normal respiratory effort, no retractions, no use of accessory muscles and No clear to auscultation bilaterally Resp Narrative: Diffusely diminished, scattered end expiratory wheezes Auscultation: wheezes; Negative for rales or rhonchi Cardio regular rate, regular rhythm, S1 normal heart sound, S2 normal heart sound, no murmurs, no rub, no gallops and no clicks GI normal to inspection, nondistended, normoactive bowel sounds, soft to palpation and non-tender GI Narrative: Protuberant abdomen Extremity no clubbing, cyanosis or edema Extremity Narrative: Pedal pulses are 1+ bilaterally, right radial artery compression device in place after cath Skin no rashes or lesions noted, no wounds, skin turgor normal and no jaundice Skin Narrative: Patient's skin appears somewhat unclean Neuro oriented x3, CN's II-XII intact bilaterally, moves all extremities and no focal motor deficits Speech: speech normal Psych thought process normal Psych Narrative: Affect is flat Appearance: unkempt Attitude: calm and other Unengaged Weight / BMI Weight Weight: 93.6 kg Body Mass Index (BMI) 36.5 ABG / Lab / Microbiology Data 03/15/24 02:53 03/15/24 02:53 Laboratory: Laboratory Results - last 24 hr 03/14/24 14:45: Magnesium 1.6, Troponin I High Sens 7528 H* 03/14/24 16:26: POC Glucose 297 H 03/14/24 17:59: Troponin I High Sens 13800 H* 03/14/24 19:59: APTT 42.8 H 03/14/24 20:46: POC Glucose 203 H 03/15/24 02:53: WBC 12.9 H, RBC 5.09, Hgb 14.5, Hct 45.1, MCV 88.6, MCH 28.5, MCHC 32.2, RDW Std Deviation 43.4, RDW Coeff of [place]hung 13.3, Plt Count 208, MPV 12.6 H, Immature Gran % (Auto) 0.400, Neut % (Auto) 63.1, Lymph % (Auto) 26.3, [place] % (Auto) 7.7, Eos % (Auto) 1.9, Baso % (Auto) 0.6, Absolute Neuts (auto) 8.1 H, Absolute Lymphs (auto) 3.39, Nucleated RBC % 0, APTT 38.7 H, Sodium 135 L , Potassium 3.5, Chloride 100, Carbon Dioxide 26.0, Anion Gap 9, BUN 17, C reatinine 1.10 H, Estim Creat Clear Calc 65.05, Est GFR (MDRD) Af Amer 67, Est GFR (MDRD) Non-Af 55 L, BUN/Creatinine Ratio 15.5, Glucose 284 H, Hemoglobin A1c 12.7 H, Calcium 9.4, Triglycerides 135, Cholesterol 190, LDL Cholesterol 116, VLDL Cholesterol 27, HDL Cholesterol 47, TSH 3.66 03/15/24 06:15: POC Glucose 273 H 03/15/24 08:45: APTT 34.2 03/15/24 12:15: POC Glucose 282 H Meaningful Use Info Meaningful Use Meaningful Use Diagnoses (Choose all that apply): None applicable Ischemic Stroke Statin Dosing Therapy Reference: STATIN DOSE THERAPY REFERENCE: * Patients > 75 years receive moderate or high dose statin therapy. * Patients 75 years or YOUNGER should receive HIGH intensity statin dose unless contraindicated. You will be required to document reason for non-treatment if statin daily dose does not meet guidelines. HIGH DOSE STATIN THERAPY DAILY Atorvastatin > than or = to 40 mg Rosuvastatin > than or = to 20 mg Amlodipine + Atorvastatin > than or = to 2.5/40 mg Ezetimibe + Simvastatin 10/80 mg Simvastatin 80mg Discharge Plan Admission Admit Date/Time: 03/14/24 14:19 Primary Reason for Your Visit: chest pain Attending Provider: Mery Clarke Primary Care Provider: KLAUDIA MCDERMOTT Consulting Providers: Linus Ortega; Dmitry Retana Discharge Orders/Prescriptions Prescriptions: No Action oxycodone-acetaminophen [Percocet] 1 EACH tablet 1 tab PO Q6H PRN PRN (Reason: Pain) Patient Comments: PAIN lisinopril 2.5 MG tablet 2.5 mg PO BID Patient Comments: BLOOD PRESSURE sulfamethoxazole-trimethoprim [Bactrim DS] 800-160 mg tablet 1 tab PO BID 7 Days Qty: 14 0RF Referrals / Follow Up: KLAUDIA MCDERMOTT [Other] KLAUDIA MCDERMOTT [Other] Jocelyn Tan CORE MICROARCHITECT, CORE MI[facility]ARCHITECT-C [Non-Staff -Ordering Privileges] - 03/27/24 10:30 am Disposition Disposition (needs filled in before D/C Order can be placed): Acute Care Hospital Charges/Coding Visit Charges Inpatient E&M: 34325 Disch Hosp >30min
[2024-03-15] MEDS: Insulin Lispro 100 UNIT/ML INSULN.PEN SC ×2 (14:23→16:13)
[2024-03-15] MEDS: Insulin Lispro 100 UNIT/ML INSULN.PEN 10 UNIT SC (14:23)
[2024-03-15] MEDS: Acetaminophen 325 MG Tablet 650 MG PO (14:27)
[2024-03-15] MEDS: HEPARIN/D5w 25,000 UNITS 25,000 UNITS/250 ML IV.SOLN. 13 UNITS CONT INF (15:39)
--- NOTE | 2024-03-15 16:07 | NURSING ---
Report called to PATTIE Lopez at 1602.
[2024-03-15 16:35] LABS: Bedside Glucose 329 mg/dL (74-106)
== END 2024-03-15 18:01 | disposition short-term general hospital (02) | DRG 280 ==
LOC: ED 14:34 → PCU 14:42
PROVIDERS: Specialist; Admitting Provider Internal Medicine; Emergency Provider Student in an Organized Health Care Education/Training Program; Visit Provider Internal Medicine
DX: I21.4 Non-ST elevation (NSTEMI) myocardial infarction (principal); I50.21 Acute systolic (congestive) heart failure; I13.0 Hypertensive heart and chronic kidney disease with heart failure and stage 1 through stage 4 chronic kidney disease, or unspecified chronic kidney disease; E11.65 Type 2 diabetes mellitus with hyperglycemia; E11.22 Type 2 diabetes mellitus with diabetic chronic kidney disease; J44.9 Chronic obstructive pulmonary disease, unspecified; I16.0 Hypertensive urgency; E78.5 Hyperlipidemia, unspecified; N18.2 Chronic kidney disease, stage 2 (mild); F17.210 Nicotine dependence, cigarettes, uncomplicated; I25.10 Atherosclerotic heart disease of native coronary artery without angina pectoris; E66.9 Obesity, unspecified; Z91.199 Patient's noncompliance with other medical treatment and regimen due to unspecified reason; R51.9 Headache, unspecified; Z68.36 Body mass index [BMI] 36.0-36.9, adult; Z79.2 Long term (current) use of antibiotics; Z79.899 Other long term (current) drug therapy
CPT/HCPCS: 36415; 70450; 71045; 71275; 80048; 80061; 82962; 83036; 83735; 84443; 84484; 85025; 85379; 85610; 85730; 93005; 93306; 93454; 99152; 99153; 99285; J7030; J7040; Q9957; Q9967; A4216; C1769; C1894; C8929; J1940; J2405

== ENCOUNTER 2024-07-18 18:33 | Inpatient (IN) | payer MEDICARE, MEDICAID, SELFPAY ==
[2024-07-18] VITALS (11 sets, daily range): BP systolic 162–239; BP diastolic 64–107; PULSE 77–95; RESP 16–28; TEMP 36.9–37.1; O2SAT 94–97; BMI 39.5; BMI 38.2
--- NOTE | 2024-07-18 18:45 | EKG12_ITS ---
Test Reason : DYSRHYTHMIA Blood Pressure : / mmHG Vent. Rate : 088 BPM Atrial Rate : 088 BPM P-R Int : 150 ms QRS Dur : 090 ms QT Int : 412 ms P-R-T Axes : 048 -25 090 degrees QTc Int : 498 ms Normal sinus rhythm T wave abnormality, consider lateral ischemia Prolonged QT Abnormal ECG Confirmed by MICHELE MOLINA, FLORENCIA ([id number]), continuity editor TAN CAPONE ([id number]) on 07/19/2024 10:01:33 AM Referred By: Teddy Long Confirmed By:FLORENCIA BAUTISTA MD
--- NOTE | 2024-07-18 18:45 | CT_ITS ---
We are attempting to reach an attending provider to discuss findings. An addendum with communication details will be sent when the communication is complete. EXAM: CT HEAD WITHOUT INTRAVENOUS CONTRAST CLINICAL INDICATION: Neuro deficit, acute, stroke suspected TECHNIQUE: Multiple axial images were obtained of the head without intravenous contrast. This CT exam was performed using one or more of the following dose reduction techniques: automated exposure control, adjustment of the mA and/or kV according to patient size, and/or use of iterative reconstruction technique. COMPARISON: 03/14/2024 FINDINGS: BRAIN AND EXTRA-AXIAL SPACES: There is encephalomalacia in the occipital lobes bilaterally compatible with remote infarcts. No intra- or extra-axial hemorrhage. No intracranial mass or mass effect. Posterior fossa structures are unremarkable. Ventricles are appropriate for age. No hydrocephalus. Basal cisterns are patent. BONES/JOINTS: Unremarkable. No discrete lytic or blastic abnormalities. SINUSES: Unremarkable as visualized. Clear. MASTOID AIR CELLS: Unremarkable. Clear. ORBITS: Visualized globes, extraocular muscles, optic nerves and retrobulbar fat appear unremarkable. CT/STROKE Brain/Head without Cont IMPRESSION: 1. No acute intracranial abnormality. 2. Encephalomalacia in the occipital lobes compatible with remote infarcts. 3. ASPECTS score 10. Electronically Signed: Morris Camacho MD at 18:55 EDT ,
--- NOTE | 2024-07-18 18:50 | CT_ITS ---
We are attempting to reach an attending provider to discuss findings. An addendum with communication details will be sent when the communication is complete. EXAM: CT ANGIOGRAPHY HEAD AND NECK WITH INTRAVENOUS CONTRAST CLINICAL INDICATION: Neuro deficit, acute, stroke suspected TECHNIQUE: [place] [facility] [place]/head and neck CT angiography protocol performed with intravenous contrast. This CT exam was performed using one or more of the following dose reduction techniques: automated exposure control, adjustment of the mA and/or kV according to patient size, and/or use of iterative reconstruction technique. MIP reconstructed images were created and reviewed. CONTRAST: IV 100mL [id number] COMPARISON: No relevant prior studies available. FINDINGS: HEAD: RIGHT ANTERIOR CEREBRAL ARTERY: Unremarkable. No occlusion or significant stenosis. Anterior communicating artery is present. No aneurysm. RIGHT MIDDLE CEREBRAL ARTERY: Unremarkable. No occlusion or significant stenosis. No aneurysm. RIGHT POSTERIOR CEREBRAL ARTERY: Unremarkable. No occlusion or significant stenosis. No aneurysm. RIGHT INTRACRANIAL INTERNAL CAROTID ARTERY: Unremarkable. No significant stenosis. No dissection or occlusion. RIGHT INTRACRANIAL VERTEBRAL ARTERY: Unremarkable. No significant stenosis. No dissection or occlusion. LEFT ANTERIOR CEREBRAL ARTERY: Unremarkable. No occlusion or significant stenosis. No aneurysm. LEFT MIDDLE CEREBRAL ARTERY: Unremarkable. No occlusion or significant stenosis. No aneurysm. LEFT POSTERIOR CEREBRAL ARTERY: Unremarkable. No occlusion or significant stenosis. No aneurysm. LEFT INTRACRANIAL INTERNAL CAROTID ARTERY: Unremarkable. No significant stenosis. No dissection or occlusion. LEFT INTRACRANIAL VERTEBRAL ARTERY: Unremarkable. No significant stenosis. No dissection or occlusion. BASILAR ARTERY: Unremarkable. No occlusion or significant stenosis. No aneurysm. OTHER VASCULATURE: No vascular malformation. NECK: RIGHT COMMON CAROTID ARTERY: There is minimal soft plaque in the common carotid arteries bilaterally. There is no stenosis. No dissection or occlusion. RIGHT EXTRACRANIAL INTERNAL CAROTID ARTERY: Unremarkable. No significant stenosis. No dissection or occlusion. RIGHT EXTERNAL CAROTID ARTERY: Unremarkable. No occlusion. RIGHT EXTRACRANIAL VERTEBRAL ARTERY: Unremarkable. No significant stenosis. No dissection or occlusion. LEFT COMMON CAROTID ARTERY: See above. LEFT EXTRACRANIAL INTERNAL CAROTID ARTERY: Unremarkable. No significant stenosis. No dissection or occlusion. LEFT EXTERNAL CAROTID ARTERY: Unremarkable. No occlusion. LEFT EXTRACRANIAL VERTEBRAL ARTERY: Unremarkable. No significant stenosis. No dissection or occlusion. BRACHIOCEPHALIC AND SUBCLAVIAN ARTERIES: Unremarkable as visualized. No occlusion or significant stenosis. LUNG APICES: Unremarkable as visualized. HEAD and NECK: BONES/JOINTS: Unremarkable. No discrete lytic or blastic abnormalities. SOFT TISSUES: Unremarkable. CAROTID STENOSIS REFERENCE USING NASCET CRITERIA: % ICA stenosis = (1 - narrowest ICA diameter/diameter of distal cervical ICA) x 100. Mild - <50% stenosis. Moderate - 50-69% stenosis. Severe - 70-94% stenosis. Near occlusion - 95-99% stenosis. Occluded - 100% stenosis. CT/STROKE CTA Head AND Neck W/Con IMPRESSION: No acute findings in the arteries of the head and neck. Electronically Signed: Morris Camcaho MD at 19:11 EDT ,
--- NOTE | 2024-07-18 18:56 | ED.VIS.STROK ---
HPI History of Present Illness Chief Complaint: Stroke Alert Informant: patient Narrative Narrative: Patient is a 53-year-old female with history of NSTEMI, heart failure and prior stroke with residual vision deficits (she states she cannot see from the center of her vision). She states this all occurred about 4 months ago. She just recently returned home from nursing facility. She states that around noon today she started to have balance issues. She felt her vision was worse. She states her whole head and neck feel tingling. She denies any chest pain, shortness breath or difficulty breathing. Came in for further evaluation. Denies any associate numbness or tingling. Continues to smoke cigarettes. [facility] Medical History Psoriasis HTN (hypertension) Diabetes Home Medications ?Medication ?Instructions ?Recorded ?Last Taken ?Type HumaLOG KwikPen Insulin See Rx Instructions subcut 3XD 07/18/24 Unknown History DIABETES aspirin 81 mg chewable tablet 1 tab PO DAILY 07/18/24 Unknown History atorvastatin 40 mg tablet 40 mg PO DAILY 07/18/24 Unknown History buspirone 7.5 mg tablet 7.5 mg PO BID 07/18/24 Unknown History carvedilol 6.25 mg tablet 6.25 mg PO BID 07/18/24 Unknown History empagliflozin 10 mg tablet 10 mg PO DAILY 07/18/24 Unknown History (Jardiance) insulin glargine 100 unit/mL (3 26 unit subcut QPM 07/18/24 Unknown History mL) subcutaneous pen (Lantus Solostar U-100 Insulin) losartan 50 mg tablet 50 mg PO DAILY 07/18/24 Unknown History ropinirole 0.5 mg tablet 0.5 mg PO TID 07/18/24 Unknown History sertraline 25 mg tablet 25 mg PO DAILY 07/18/24 Unknown History ticagrelor 90 mg tablet (Brilinta) 90 mg PO BID 07/18/24 Unknown History Allergy/AdvReac Type Severity Reaction Status Date / Time No Known Allergies Allergy Verified 07/18/24 18:41 Surgical History History of nasal surgery Hx of lymph node biopsy Hx of cholecystectomy Social History Smoking Status: Current every day smoker tobacco type: cigarettes ROS ROS ED Constitutional Constitutional ED: Denies chills or fever(s) Eyes Eyes: Reports blurry vision and change in vision Cardiovascular Cardiovascular: Denies chest pain Respiratory/Chest Respiratory/Chest: Denies cough Gastrointestinal Gastrointestinal: Denies nausea or vomiting Musculoskeletal Musculoskeletal: Denies arthralgias or myalgias Integumentary Denies rash Neurologic Neurologic: Reports other Details: Feels off balance ; Denies headache(s), paresthesias or weakness Hematologic/Lymphatic Hematologic/Lymphatic: Denies easy bleeding or easy bruising EXAM Physical Exam Const Vital Signs: 07/18/24 18:35 07/18/24 18:41 07/18/24 19:00 Temperature 98.5 F Temperature Source Oral Pulse Rate 80 80 95 Respiratory Rate 16 16 28 H Blood Pressure 228/98 H 228/98 H 239/104 H Blood Pressure Mean 141 141 149 Pulse Ox 94 94 95 Oxygen Delivery Method Room Air Room Air Room Air 07/18/24 19:05 07/18/24 19:25 07/18/24 19:35 Temperature Temperature Source Pulse Rate 86 85 Respiratory Rate 25 H 18 Blood Pressure 229/100 H 202/107 H Blood Pressure Mean 143 138 Pulse Ox 95 97 97 Oxygen Delivery Method Room Air Room Air Room Air 07/18/24 20:00 07/18/24 20:11 07/18/24 20:25 Temperature 98.7 F Temperature Source Pulse Rate 85 86 84 Respiratory Rate 18 18 20 H Blood Pressure 193/94 H 193/88 H Blood Pressure Mean 127 123 Pulse Ox 97 97 97 Oxygen Delivery Method Room Air Room Air Positive well nourished and well developed General Appearance ED: well developed and NAD HEENT Reports moist mucous membranes Eyes PERRL and EOMs intact bilaterally Eyes Narrative: Patient does not have any significant nystagmus on exam. She has some central vision loss as well as what appears to be vision loss of the upper right quadrant in both eyes. Neck supple Chest Wall inspection of chest normal and palpation of chest normal Resp normal respiratory effort and clear to auscultation bilaterally Cardio Rate: regular rate Rhythm: regular rhythm Extremity normal to inspection General Extremety ED: Negative for edema General Extremity: Negative for edema Neuro oriented x3 Neuro Narrative: Very mild ataxia in the left upper extremity on exam. Decreased coordination with quick repetitive pinching movement of the left hand Sensorium / Orientation: alert Speech: speech normal Sensory Exam: sensory level loss detected Motor Exam: strength 5/5 throughout; Negative for general weakness Psych mental status grossly normal Skin no wounds NIHSS NIHSS Initial: 1a Level of Consciousness: 0 1b LOC Questions (Score 2 if aphasic/stupor): 0 1c LOC Commands (Only score 1st attempt): 0 2 Best Gaze (If aphasic, use reflexive mvmts.): 0 3 Visual: 1 4 Facial Palsy: 0 5 Motor Arm Right (UN = amputation/fusion): 0 5 Motor Arm Left: 0 6 Motor Leg Right: 0 6 Motor Leg Left: 0 7 Limb ataxia (Only + if out of proportion): 1 8 Sensory (Aphasia/stupor=0 or 1, coma=2): 0 9 Best Language: 0 10 Dysarthria (mute, coma=2, intubated=UN): 0 11 Extinction and Inattention (only scored if +): 0 Total Score: 2 Follow up: 1a Level of Consciousness: 0 1b LOC Questions (Score 2 if aphasic/stupor): 0 1c LOC Commands (Only score 1st attempt): 0 2 Best Gaze (If aphasic, use reflexive mvmts.): 0 3 Visual: 2 4 Facial Palsy: 0 5 Motor Arm Right (UN = amputation/fusion): 0 5 Motor Arm Left: 0 6 Motor Leg Right: 0 6 Motor Leg Left: 1 7 Limb ataxia (Only + if out of proportion): 1 8 Sensory (Aphasia/stupor=0 or 1, coma=2): 1 9 Best Language: 0 10 Dysarthria (mute, coma=2, intubated=UN): 0 11 Extinction and Inattention (only scored if +): 0 Total Score: 5 MDM MDM MDM Narrative Medical decision making narrative: Patient is evaluated in triage for concern of increased unsteadiness, worsening of vision and concern for recurrent stroke. Patient also feels that her head and neck are tingling. Stroke alert was called and brief NIH is performed in triage with NIH of 2. Patient sent for CT of the brain as well as CT of the head and neck. As her symptoms started at least 6 hours prior to arrival I do not think she is a TNK candidate. Repeat NIH is performed with teleneurology and her NIH is now 5 which I suspect is more accurate as she is now in the bed. CT of the brain communicated with the radiology shows encephalomalacia of the supra lobe compatible with remote infarct but no acute abnormality. CTA does not show any acute findings. Patient's blood work is significant for hypertension with a blood pressure of 228/98. I question some the symptoms could be associate with accelerated hypertension. Patient is given a dose of labetalol in the ER for blood pressure control but will aim for permissive hypertension's do not elicit any ischemia. Her lab work shows an elevated creatinine of 1.31 which is near her baseline. Her hemoglobin is also mildly elevated at 15.4 but patient is a heavy tobacco user. Her glucose is also elevated to 94 however patient has a normal anion gap and normal bicarb. Urinalysis is negative for infection. High sensitive troponin is elevated at 130 however on prior admission when patient had her NSTEMI her high sensitive troponin was in the thousands. Patient is given aspirin in the emergency room. Patient be admitted for further management of her hypertension and stroke workup. Spoke with hospitalist, Dr. Purvis who is agreeable this plan of care. Talk screen is also added on to ensure that there is no stimulator system that could be worsening her hypertension. Patient is agreeable this plan of care. History & Record Review Additional record(s) reviewed:: Prior inpatient record (Discharge summary from 03/15/2024-patient treated for NSTEMI and hypertensive urgency, was transferred to [facility] for further cardiac evaluation.) Lab Data Attestation: I reviewed the patient's lab results. Labs: Laboratory Results - last 24 hr 07/18/24 07/18/24 07/18/24 18:38 18:50 20:08 WBC 10.7 RBC 5.08 Hgb 15.4 H Hct 46.1 MCV 90.7 MCH 30.3 MCHC 33.4 RDW Std Deviation 44.2 H RDW Coeff of Nhung 13.2 Plt Count 293 MPV 11.8 Immature Gran % (Auto) 0.300 Neut % (Auto) 53.9 Lymph % (Auto) 34.2 [place] % (Auto) 8.4 Eos % (Auto) 2.4 Baso % (Auto) 0.8 Absolute Neuts (auto) 5.7 Absolute Lymphs (auto) 3.65 Nucleated RBC % 0 PT 12.9 INR 1.0 APTT 25.2 Sodium 138 Potassium 3.5 Chloride 106 Carbon Dioxide 27.0 Anion Gap 6 BUN 13 Creatinine 1.31 H Estim Creat Clear Calc 56.02 Est GFR (MDRD) Af Amer 55 L Est GFR (MDRD) Non-Af 45 L BUN/Creatinine Ratio 9.9 L Glucose 294 H Hemoglobin A1c 9.2 H Calcium 9.3 Troponin I High Sens 130 H* Urine Color Yellow Urine Clarity Clear Urine pH 6.0 Ur Specific [place] 1.010 Urine Protein 30 H Urine Glucose (UA) 1000 H Urine Ketones Negative Urine Occult Blood Negative Urine Nitrite Negative Urine Bilirubin Negative Urine Urobilinogen Normal Ur Leukocyte Esterase Negative Urine RBC 0-5 SEEN Urine WBC 0-5 SEEN Ur Squamous Epith Cells 0-5 SEEN Urine Bacteria RARE Urine Mucus 0 SEEN Urine Opiates Screen NEGATIVE Urine Methadone Screen NEGATIVE Ur Barbiturates Screen NEGATIVE Ur Phencyclidine Scrn NEGATIVE Ur Amphetamines Screen NEGATIVE MDMA (Ecstasy) Screen NEGATIVE U Benzodiazepines Scrn NEGATIVE Urine Cocaine Screen NEGATIVE U Cannabinoids Screen NEGATIVE Ur Drug Screen Comment POC Glucose 289 H Radiography Diagnostic Testing: Clinical Impression(s) from Imaging Studies Brain CT 07/18/24 18:45 IMPRESSION: 1. No acute intracranial abnormality. 2. Encephalomalacia in the occipital lobes compatible with remote infarcts. 3. ASPECTS score 10. Electronically Signed: Morris Camacho MD at 18:55 EDT , ADDENDUM: 07/18/24 1904 IMPRESSION: 1. No acute intracranial abnormality. 2. Encephalomalacia in the occipital lobes compatible with remote infarcts. 3. ASPECTS score 10. N.B. : The above Results were Read Back by Morris Camacho MD to Farrah Ludwig DO, and understanding confirmed on 07/18/2024 18:57:09 (ET). Electronically Signed: Morris Camacho MD at 18:55 EDT , Head/Neck CTA 07/18/24 18:50 IMPRESSION: No acute findings in the arteries of the head and neck. Electronically Signed: Morris Camacho MD at 19:11 EDT , ADDENDUM: 07/18/24 1923 IMPRESSION: No acute findings in the arteries of the head and neck. N.B. : The above Results were Read Back by Morris Camacho MD to Farrah Ludwig DO, and understanding confirmed on 07/18/2024 19:16:15 (ET). Electronically Signed: Morris Camacho MD at 19:11 EDT , Chest X-Ray 07/18/24 19:22 IMPRESSION: No radiographic evidence of acute cardiopulmonary disease. Electronically Signed: Morris Camacho MD at 20:00 EDT , Rhythm Strip Rhythm Strip: Sinus Rhythm Rate: 88 Ectopy: None EKG Initial EKG: Attestation: I personally reviewed and interpreted this EKG as follows: Interpretation: Sinus Rhythm Comments: Normal sinus rhythm at a rate of 88 bpm T wave inversions and 1, aVL and V6 Slightly prolonged QTc of 498 Normal NH and QRS No change compared to prior EKG Management Discussion w/another healthcare provider: Hospitalist Discharge Plan Dx/Rx/DC Orders Clinical Impression: Hypertensive emergency, Elevated troponin, Dizziness, Visual disturbance Disposition Disposition: Acute Care Hospital [facility] Discharge Date/Time: 07/18/24 20:56
[2024-07-18 19:02] LABS: Absolute Lymphocyte Count 3.65 X10^3/uL (0.83-4.51); Absolute Neutrophil Count 5.7 X10^3/uL (2.0-7.7); Basophil# 0.08 X10^3/uL; Basophil% 0.8 % (0-1); Eosinophil# 0.26 X10^3/uL; Eosinophils% 2.4 % (0-5); Hematocrit 46.1 % (37-47); Hemoglobin 15.4 g/dL (12.0-15.0); Lymphocyte # 3.65 X10^3/ul (0.83-4.51); Lymphocyte % 34.2 % (19-41); Mean Corp Hgb Conc 33.4 g/dL (32-36); Mean Corpuscular Hgb 30.3 pg (27.0-32.0); Mean Corpuscular Volume 90.7 fL (81-99); Mean Platelet Vol. 11.8 fl (6.2-12.0); Monocyte% 8.4 % (0-10); NRBC Flagged by Analyzer 0 % (0-5); Neutrophil # 5.74 X10^3/uL (2.7-7.7); Neutrophil % 53.9 % (47-70); Platelet Count 293 K/mm3 (150-450); RBC Distribution Width CV 13.2 % (11.6-14.6); RBC Distribution Width SD 44.2 fl (35.1-43.9); Red Blood Count 5.08 M/mm3 (4.2-5.4); White Blood Count 10.7 K/mm3 (4.4-11.0)
[2024-07-18 19:11] LABS: Partial Thromboplast Time 25.2 Seconds (24.1-36.2); Prothrombin Time (Protime)PT. 12.9 SECONDS (11.7-14.9)
--- NOTE | 2024-07-18 19:22 | RAD_ITS ---
EXAM: XR CHEST, 1 VIEW CLINICAL INDICATION: Neuro deficit, acute, stroke suspected TECHNIQUE: Frontal view of the chest. COMPARISON: 03/14/2024 FINDINGS: LUNGS AND PLEURAL SPACES: Unremarkable. No consolidation or edema. No pneumothorax. No effusion. HEART: Unremarkable. Cardiac silhouette not enlarged. MEDIASTINUM: Central airways and mediastinal contour are unremarkable. BONES/JOINTS: Unremarkable. No acute fracture. SOFT TISSUES: Unremarkable. RAD/Chest 1 View IMPRESSION: No radiographic evidence of acute cardiopulmonary disease. Electronically Signed: Morris Camacho MD at 20:00 EDT ,
[2024-07-18 19:34] LABS: Anion Gap 6 (5-15); BUN 13 mg/dL (7-18); BUN/Creat Ratio 9.9 RATIO (10-20); Calcium,Total 9.3 mg/dL (8.5-10.1); Chloride 106 mmol/L (98-107); Creatinine, Serum 1.31 mg/dL (0.55-1.02); EST Glomerular Filtration Rate 45 mL/min (>60); Est Glom Filt Rate - Afr Amer 55 mL/min (>60); Estimated Creatinine Clearance 56.02 ml/min; Glucose 294 mg/dL (74-106); Potassium 3.5 mmol/L (3.5-5.1); Sodium Level 138 mmol/L (136-145); Troponin-I HS 130 pg/mL (3.0-54.0)
[2024-07-18 19:40] LABS: Bedside Glucose 289 mg/dL (74-106)
--- NOTE | 2024-07-18 20:02 | PCM.HP.STD ---
HPI - General General Date of Admission: 07/18/24 Date of Service: 07/18/24 Chief Complaint: Dizziness, Headache and Elevated Blood Pressure. HPI Narrative NEIL JENNINGS, is a 53 F with a past medical history of essential hypertension; on Lisinopril, Losartan and Coreg, hyperlipidemia, obesity; with BMI of 38.3 this admission, DM-2; of unknown control on insulin, CAD; s/p NSTEMI, legally blind due to prior CVA due to bilateral medial field vision loss; on BASA and Brilinta, ongoing tobacco abuse, history of CHF, RLS; on ropinirole, depression; on sertraline, history of cellulitis, history of psoriasis, history of cholecystectomy, history of nasal surgery, history of lymph node biopsy, OA; with chronic pain on prn Oxycodone/APAP and recent discharge home from [facility] who presents to [facility] ER complaining of dizziness, headache and elevated blood pressure. Ms. Jennings reports her symptoms began approximately noon earlier today when she began to feel dizzy along with the sensation that her vision was worse than usual so she decided to come in for further evaluation and treatment. She also admits to a tingling sensation in her head and neck but she denies associated fever, chills, nausea, vomiting, diarrhea, constipation, chest pain or SOB. In the ER a 'stroke alert' was called with patient also having a critically elevated blood pressure of 239/104 mmHg consistent with suspected Hypertensive Emergency complicated by a mildly elevated troponin of 130 pg/mL due to suspected Acute Cardiac Strain with a CTA of the head and neck negative for acute pathologic changes and she was then admitted to the PCU for ongoing care for a stay that is expected to extend beyond 2 midnights. [facility] Medical History Psoriasis HTN (hypertension) Diabetes Home Medications ?Medication ?Instructions ?Recorded ?Last Taken ?Type HumaLOG KwikPen Insulin See Rx Instructions subcut 3XD 07/18/24 Unknown History DIABETES aspirin 81 mg chewable tablet 1 tab PO DAILY 07/18/24 Unknown History atorvastatin 40 mg tablet 40 mg PO DAILY 07/18/24 Unknown History buspirone 7.5 mg tablet 7.5 mg PO BID 07/18/24 Unknown History carvedilol 6.25 mg tablet 6.25 mg PO BID 07/18/24 Unknown History empagliflozin 10 mg tablet 10 mg PO DAILY 07/18/24 Unknown History (Jardiance) insulin glargine 100 unit/mL (3 26 unit subcut QPM 07/18/24 Unknown History mL) subcutaneous pen (Lantus Solostar U-100 Insulin) losartan 50 mg tablet 50 mg PO DAILY 07/18/24 Unknown History ropinirole 0.5 mg tablet 0.5 mg PO TID 07/18/24 Unknown History sertraline 25 mg tablet 25 mg PO DAILY 07/18/24 Unknown History ticagrelor 90 mg tablet (Brilinta) 90 mg PO BID 07/18/24 Unknown History Allergy/AdvReac Type Severity Reaction Status Date / Time No Known Allergies Allergy Verified 07/18/24 18:41 Surgical History History of nasal surgery Hx of lymph node biopsy Hx of cholecystectomy Social History Smoking Status: Current every day smoker tobacco type: cigarettes ROS ROS Narrative Review of Systems: Constitutional: Patient denies fever or chills. Eyes: Patient is legally blind at baseline after previous CVA as noted in HPI. ENT: Patient denies runny nose, sore throat or ear pain. Resp: Patient denies SOB or cough. CV: Patient denies chest pain, palpitations or heart racing. GI: Patient denies abdominal pain, nausea, vomiting, diarrhea or constipation. : Patient denies dysuria or hematuria. MSK: Patient denies arthralgias or myalgias. Skin: Patient denies rash, abscess or jaundice. Psych: Patient denies symptoms of uncontrolled depression or anxiety. Neuro: Patient admits to tingling sensation in her head and neck with dizziness and visual disturbance as per HPI. Allergy: Patient denies lip swelling, tongue swelling or urticaria. Hematology: Patient denies easy bleeding or easy bruisability. Endocrinology: Patient denies polyuria, polydipsia and polyphagia. 14 point ROS otherwise negative except for positives noted above in HPI. Vital Signs Vital Signs Vital Signs: 07/18/24 18:35 07/18/24 18:41 07/18/24 19:00 Temperature 98.5 F Temperature Source Oral Pulse Rate 80 80 95 Respiratory Rate 16 16 28 H Blood Pressure 228/98 H 228/98 H 239/104 H Blood Pressure Mean 141 141 149 Pulse Ox 94 94 95 Oxygen Delivery Method Room Air Room Air Room Air 07/18/24 19:05 07/18/24 19:25 Temperature Temperature Source Pulse Rate 86 Respiratory Rate 25 H Blood Pressure 229/100 H Blood Pressure Mean 143 Pulse Ox 95 97 Oxygen Delivery Method Room Air Room Air Weight Weight: 216 lb 0.848 oz Body Mass Index (BMI) 38.2 Physical Exam Const alert, oriented x3 and no apparent distress Constitutional Narrative: Obese with appearance much older than stated age. General Appearance: cooperative HEENT normocephalic, head/scalp atraumatic and hearing grossly normal bilaterally Eyes PERRL and EOMs intact bilaterally Neck no lymphadenopathy and supple Resp normal respiratory effort, no retractions, no use of accessory muscles and clear to auscultation bilaterally Cardio regular rate and regular rhythm GI normal to inspection, nondistended, normoactive bowel sounds, soft to palpation, non-tender and non-distended Extremity normal to inspection, full ROM and no clubbing, cyanosis or edema Skin Skin Narrative: Patient has no evidence of rash, abscess or jaundice. Neuro oriented x3, CN's II-XII intact bilaterally, moves all extremities and no focal motor deficits Sensorium / Orientation: awake, alert, oriented to person, oriented to place and oriented to time Speech: speech normal Psych affect normal Results Medical Records Data Attestation: I reviewed the patient's medical records Lab / Micro Data Attestation: I reviewed the patient's lab results. 07/18/24 18:50 07/18/24 18:50 Labs: Laboratory Results - last 24 hr 07/18/24 18:38: POC Glucose 289 H 07/18/24 18:50: WBC 10.7, RBC 5.08, Hgb 15.4 H, Hct 46.1, MCV 90.7, MCH 30.3, MCHC 33.4, RDW Std Deviation 44.2 H, RDW Coeff of [place]hung 13.2, Plt Count 293, MPV 11.8, Immature Gran % (Auto) 0.300, Neut % (Auto) 53.9, Lymph % (Auto) 34.2, [place] % (Auto) 8.4, Eos % (Auto) 2.4, Baso % (Auto) 0.8, Absolute Neuts (auto) 5.7, Absolute Lymphs (auto) 3.65, Nucleated RBC % 0, PT 12.9, INR 1.0, APTT 25.2, Sodium 138, Potassium 3.5, Chloride 106, Carbon Dioxide 27.0, Anion Gap 6, BUN 13, Creatinine 1.31 H, Estim Creat Clear Calc 56.02, Est GFR (MDRD) Af Amer 55 L, Est GFR (MDRD) Non-Af 45 L, BUN/Creatinine Ratio 9.9 L, Glucose 294 H, Calcium 9.3, Troponin I High Sens 130 H* Imaging Radiology Impression Brain CT 07/18/24 18:45 IMPRESSION: 1. No acute intracranial abnormality. 2. Encephalomalacia in the occipital lobes compatible with remote infarcts. 3. ASPECTS score 10. Electronically Signed: Morris Camacho MD at 18:55 EDT , ADDENDUM: 07/18/24 1904 IMPRESSION: 1. No acute intracranial abnormality. 2. Encephalomalacia in the occipital lobes compatible with remote infarcts. 3. ASPECTS score 10. N.B. : The above Results were Read Back by Morris Camacho MD to Farrah Ludwig DO, and understanding confirmed on 07/18/2024 18:57:09 (ET). Electronically Signed: Morris Camacho MD at 18:55 EDT , Head/Neck CTA 07/18/24 18:50 IMPRESSION: No acute findings in the arteries of the head and neck. Electronically Signed: Morris Camacho MD at 19:11 EDT , ADDENDUM: 07/18/24 192 IMPRESSION: No acute findings in the arteries of the head and neck. N.B. : The above Results were Read Back by Morris Camacho MD to Farrah Ludwig DO, and understanding confirmed on 07/18/2024 19:16:15 (ET). Electronically Signed: Morris Camacho MD at 19:11 EDT , Chest X-Ray 07/18/24 19:22 IMPRESSION: No radiographic evidence of acute cardiopulmonary disease. Electronically Signed: Morris Camacho MD at 20:00 EDT , Assessment & Plan Assessment/Plan (1) Hypertensive emergency: (2) Elevated troponin: (3) Dizziness: (4) Visual disturbance: (5) History of non-ST elevation myocardial infarction (NSTEMI): (6) Hyperlipidemia: QUALIFIERS: Hyperlipidemia type: unspecified Qualified Code(s): E78.5 - Hyperlipidemia, unspecified (7) Tobacco abuse: (8) Obesity (BMI 30-39.9): PLAN: Plan 1. Hypertensive Emergency with Dizziness and Visual Disturbance causing 'stroke alert' to be called in ER in spite of already being on Lisinopril, Losartan and Coreg - Admit to PCU. Complete TIA/CVA workup with MRI brain, cardiac echo and carotid doppler with previous CVA noted. UDS negative for stimulants raising suspicion for underlying secondary hypertension with critical hypertension in spite of already being on 3 antihypertensive agents. 2. Mildly elevated troponin of 130 pg/mL due to suspected Acute Cardiac Strain arising from #1 in the setting of known CAD; s/p NSTEMI - Serialize troponin. Echocardiogram pending for #1. Continue BASA, Brilinta, statin and Coreg as previous. 3. Legally blind due to prior CVA due to bilateral medial field vision loss; on BASA and Brilinta complicating #1 & #2 - Noted. 4. Hyperlipidemia - Resume statin and check Lipid Profile in light of #1 & #2. 5. Ongoing tobacco abuse adding to the burden of disease outlined from #1 - #4 - Tobacco Cessation will be strongly encouraged with Nicotine patch offered to control cravings. 6. Obesity; with BMI of 38.3 this admission adding to the medical complexity of the constellation of problems outlined from #1 - #5 - Weight loss will be recommended. Check TSH. This complicates her case and may hamper her recovery. 7. DM-2; of unknown control on insulin - ADA diet. FSBS q. AC/HS plus SSI. Check HgbA1c to objectively assess quality of diabetic control. 8. History of CHF - Stable. 9. RLS; on ropinirole - Resume ropinirole as before. 10. Depression; on sertraline - Continue home regimen. 11. History of cellulitis - Noted. 12. History of psoriasis - Noted. 13. History of cholecystectomy - Noted. 14. History of nasal surgery - Noted. 15. History of lymph node biopsy - Noted for the sake of completeness. 16. OA; with chronic pain on prn Oxycodone/APAP - Continue this agent for severe (level 6-10/10) pain. 17. DVT prophylaxis - Lovenox 40 mg sq daily plus SCD's. Total time: Approximately (but not less than) 75 minutes. Charges/Coding Visit Charges Inpatient E&M: 63026 Init Hosp L3
[2024-07-18 20:23] LABS: Mucous, Urine 0 SEEN /hpf (<or=2+)
--- NOTE | 2024-07-18 20:42 | ECHOCS_ITS ---
Reason For Study: TIA/STROKE Procedure This was a 2D Doppler, Color Flow transthoracic echocardiogram. The study was technically difficult. Contrast injection was performed. Exam performed portable in patient room. Left Ventricle Normal LV size. Severe concentric left ventricular hypertrophy. Left ventricular systolic function is normal. The estimated ejection fraction is 60 %. Diastolic function is indeterminate. No regional wall motion abnormalities noted. Right Ventricle Normal RV size. Normal systolic function. Atria The left atrium is mildly enlarged. Normal right atrium. Bubble contrast study negative for right to left interatrial shunt. Mitral Valve The mitral valve is structurally normal. No prolapse or stenosis seen. Mild (1+) mitral valve insufficiency. Tricuspid Valve Normal tricuspid valve. Trivial tricuspid valve insufficiency. Unable to estimate RV systolic pressure due to insufficient tricuspid regurgitant envelope. Aortic Valve Mild focal aortic valve calcification. There is no aortic stenosis. Pulmonic Valve The pulmonic valve is not well visualized. Great Vessels Normal aortic root. Pericardium/Pleural No pericardial effusion. Medication Diluted definity 2ml given slow IV push to enhance endocardial definition. Performed a rapid injection of agitated mix of 9 cc saline and 1cc air to assess for atrial septal defect. MMode/2D Measurements & Calculations LVIDd: 4.7 cm IVSd: 1.9 cm Ao root diam: 3.3 cm LVIDs: 3.6 cm LVPWd: 2.1 cm FS: 21.7 % LAV(MOD-bp): 63.5 ml LVAd ap4: 31.3 cm2 SV(MOD-sp4): 57.9 ml LAV(MOD-bp) Indexed: 31.3 ml/m2 LVLd ap4: 8.5 cm LAV(MOD-sp2): 45.2 ml EDV(MOD-sp4): 92.4 ml LAV(MOD-sp4): 71.2 ml EDV(sp4-el): 97.3 ml LVAs ap4: 16.7 cm2 LVLs ap4: 6.6 cm ESV(MOD-sp4): 34.5 ml ESV(sp4-el): 36.2 ml EF(MOD-sp4): 62.6 % EF(sp4-el): 62.8 % SV(sp4-el): 61.1 ml LA A4 area: 23.4 cm2 LA dimension(2D): 4.6 cm RA A4 area: 15.2 cm2 Time Measurements MV dec time: 0.21 sec Doppler Measurements & Calculations MV E max butch: 100.3 cm/sec Lat Peak E' Butch: 6.4 cm/sec Med Peak E' Butch: 4.7 cm/sec MV A max butch: 107.7 cm/sec E/E' lat: 15.6 E/E' med: 21.2 MV E/A: 0.93 MV V2 max: 115.5 cm/sec MV dec slope: 484.2 cm/sec2 Ao V2 max: 167.2 cm/sec MV max P.3 mmHg Ao max P.2 mmHg MV V2 mean: 80.2 cm/sec Ao V2 mean: 110.6 cm/sec MV mean P.8 mmHg Ao mean P.7 mmHg MV V2 VTI: 41.3 cm Ao V2 VTI: 36.0 cm AV (velocity ratio): 0.64 LV V1 max: 123.8 cm/sec PA V2 max: 74.9 cm/sec LV V1 max P.1 mmHg PA V2 mean: 47.8 cm/sec LV V1 mean P.7 mmHg LV V1 mean: 73.2 cm/sec LV V1 VTI: 23.1 cm ECHO/Echo Complete W/ Contrast Interpretation Summary The estimated ejection fraction is 60 %. Diastolic function is indeterminate. Severe concentric left ventricular hypertrophy. The left atrium is mildly enlarged. Bubble contrast study negative for right to left interatrial shunt. Mild (1+) mitral valve insufficiency. Mild focal aortic valve calcification. The study was technically difficult. Contrast injection was performed. Ordering Physician: Teddy Long Referring Physician: Teddy Long Performed By: Carol Villela RCS
--- NOTE | 2024-07-18 20:42 | CDU_ITS ---
Reason For Study: HX CVA Rt. Velocities/BP Lt. Velocities/BP Prox CCA 85.3/23.7 cm/sec. Prox CCA 125.3/21.2 cm/sec. Mid CCA 102.5/25.6 cm/sec. Mid CCA 81.8/17.9 cm/sec. Dist CCA 80.6/27.8 cm/sec. Dist CCA 96.5/19.2 cm/sec. Prox ICA 110.1/27.9 cm/sec. Prox ICA 92.8/21.6 cm/sec. Mid ICA 95.5/37.1 cm/sec. Mid ICA 59.8/21.6 cm/sec. Dist ICA 101.0/35.3 cm/sec. Dist ICA 78.9/29.2 cm/sec. Rt. ICA/CCA = 1.1. Lt. ICA/CCA = 1.3. Prox ECA 99.2/18.8 cm/sec. Prox ECA 227.0/32.7 cm/sec. Rt. Vert. 21.5/6.9 cm/sec. Lt. Vert. 36.5/16.6 cm/sec. Right Extracranial There is homogeneous, smooth atherosclerotic plaque noted in the right common carotid artery. There is intimal thickening but no significant atherosclerotic plaque noted in the right internal carotid artery. There is homogeneous, smooth atherosclerotic plaque noted in the right external carotid artery. Antegrade flow is noted in the right vertebral artery. Left Extracranial There is homogeneous, smooth atherosclerotic plaque noted in the left common carotid artery. There is intimal thickening but no significant atherosclerotic plaque noted in the left internal carotid artery. There is heterogeneous, irregular atherosclerotic plaque noted in the left external carotid artery. Antegrade flow is noted in the left vertebral artery. Procedure Carotid Duplex 25790. This is a Carotid Duplex examination using B-mode, color flow and specral Doppler. The exam was diagnostic. Exam performed portable in patient room. VL/Carotid Duplex Ultrasound Interpretation Summary Mild (<50%) stenosis right extracranial internal carotid. Mild (<50%) stenosis left extracranial internal carotid. Patent and antegrade vertebrals bilaterally. Ordering Physician: Teddy Long Referring Physician: N/A Performed By: Matt Hudson RVT
[2024-07-18] MEDS: Aspirin 81 MG TAB.CHEW 243 MG PO (20:43)
[2024-07-18 20:48] LABS: Color, Urine Yellow (Yellow); Glucose, Dipstick 1000 mg/dl (Normal); Ketone-Dipstick Negative (Negative); Leukocyte Esterase-Dipstick Negative /ul (Negative); Nitrite-Dipstick Negative (Negative); Occult Blood-Urine Negative /ul (Negative); Protein-Dipstick 30 mg/dl (Negative); Urine Bilirubin Dipstick Negative (Negative); Urine Clarity Clear (Clear); Urine Urobilinogen Normal (Normal)
[2024-07-18 20:56] LABS: Bacteria RARE /hpf (None Seen); Red Blood Cells-Urine 0-5 SEEN /hpf (0-5); Squamous Epithelial Cells - UA 0-5 SEEN /hpf (5-10); White Blood Cells 0-5 SEEN /hpf (0-5)
[2024-07-18 21:00] LABS: Amphetamine Urine NEGATIVE (<1000 ng/mL); Barbiturate Urine NEGATIVE (< 200 ng/mL); Benzodiazepine Urine NEGATIVE (< 200 ng/mL); Cocaine Urine NEGATIVE (< 300 ng/mL); Ecstacy Urine NEGATIVE (< 500 ng/mL); Methadone Urine NEGATIVE (< 300 ng/mL); Opiates Urine NEGATIVE (< 300 ng/mL); PCP Urine NEGATIVE (< 25 ng/mL); THC Urine NEGATIVE (< 50 ng/mL); Vista UDS pH Range 5
[2024-07-18 21:18] LABS: Hemoglobin A1c 9.2 % (3.8-5.6)
[2024-07-18 21:47] LABS: Alcohol, Blood (Medical)-Serum < 3.0 mg/dL
[2024-07-18] MEDS: TICAGRELOR 90 MG TABLET PO (22:23)
[2024-07-18] MEDS: 0.9% Saline Lock 10 ML Syringe IV (22:23)
[2024-07-18] MEDS: Insulin Glargine-YFGN 100 UNIT/ML Pen 16 UNIT SC (22:24)
[2024-07-18] MEDS: busPIRone 5 MG Tablet 7.5 MG PO (22:24)
[2024-07-18] MEDS: Atorvastatin Calcium 40 MG Tablet PO (22:25)
[2024-07-18] MEDS: Pramipexole Di-HCl 0.25 MG Tablet PO (22:25)
[2024-07-18] MEDS: oxyCODONE 5 MG Tablet PO (22:31)
[2024-07-18 23:04] LABS: Bedside Glucose 226 mg/dL (74-106)
[2024-07-18] MEDS: Scopolamine 1mg/72hr Patch 1 PATCH TD (23:58)
[2024-07-19 00:18] LABS: Troponin-I HS 126 pg/mL (3.0-54.0)
[2024-07-19 02:00] VITALS: BP 161/70; PULSE 65; RESP 18; TEMP 36.7; O2SAT 97
[2024-07-19 06:00] VITALS: BP 177/66; PULSE 74; RESP 18; TEMP 36.8; O2SAT 100
[2024-07-19] MEDS: Pramipexole Di-HCl 0.25 MG Tablet PO ×3 (06:14→21:52)
[2024-07-19] MEDS: Insulin Lispro 100 UNIT/ML INSULN.PEN SC ×4 (06:34→21:57)
[2024-07-19 06:38] LABS: Bedside Glucose 180 mg/dL (74-106)
[2024-07-19 06:46] LABS: Cholesterol 137 mg/dL (200); High Density Lipoprotein 44 mg/dL; Triglycerides 193 mg/dL; Very Low Density Lipoprotein 39 mg/dL (5-40)
--- NOTE | 2024-07-19 08:46 | PN.HOSP_ITS ---
Reason for Visit Reason for Visit: Diagnoses Obesity, unspecified (07/18/24) Hyperlipidemia, unspecified (07/18/24) Unspecified visual disturbance (07/18/24) Hypertensive emergency (07/18/24) Old myocardial infarction (07/18/24) Dizziness and giddiness (07/18/24) Other specified abnormal findings of blood chemistry (07/18/24) Tobacco use (07/18/24) Subjective Subjective Still feeling dizzy. Never had dizziness like this before. Objective Data Objective Data Vital Signs: Vital Signs Temp Pulse Resp BP Pulse Ox O2 Del Method 36.8 C 74 18 177/66 H 100 Room Air 07/19/24 06:00 07/19/24 06:00 07/19/24 06:00 07/19/24 06:00 07/19/24 06:00 07/19/24 06:00 Oxygen Delivery Method Room Air Weight: 101.3 kg Body Mass Index (BMI) 39.5 Intake & Output: Intake and Output for Last 24 Hours 07/17/24 07/18/24 07/19/24 23:59 23:59 23:59 Intake Total 220 / 220 0 / 0 Balance 220 / 220 0 / 0 Lab / Micro Data 07/18/24 18:50 07/18/24 18:50 Labs: Laboratory Results - last 24 hr 07/18/24 18:38: POC Glucose 289 H 07/18/24 18:50: WBC 10.7, RBC 5.08, Hgb 15.4 H, Hct 46.1, MCV 90.7, MCH 30.3, MCHC 33.4, RDW Std Deviation 44.2 H, RDW Coeff of [place]hung 13.2, Plt Count 293, MPV 11.8, Immature Gran % (Auto) 0.300, Neut % (Auto) 53.9, Lymph % (Auto) 34.2, [place] % (Auto) 8.4, Eos % (Auto) 2.4, Baso % (Auto) 0.8, Absolute Neuts (auto) 5.7, Absolute Lymphs (auto) 3.65, Nucleated RBC % 0, PT 12.9, INR 1.0, APTT 25.2, Sodium 138, Potassium 3.5, Chloride 106, Carbon Dioxide 27.0, Anion Gap 6, BUN 13, Creatinine 1.31 H, Estim Creat Clear Calc 56.02, Est GFR (MDRD) Af Amer 55 L, Est GFR (MDRD) Non-Af 45 L, BUN/Creatinine Ratio 9.9 L, Glucose 294 H, H emoglobin A1c 9.2 H, Calcium 9.3, Troponin I High Sens 130 H* 07/18/24 20:08: Urine Color Yellow, Urine Clarity Clear, Urine pH 6.0, Ur Specific [place] 1.010, Urine Protein 30 H, Urine Glucose (UA) 1000 H, Urine Ketones Negative, Urine Occult Blood Negative, Urine Nitrite Negative, Urine Bilirubin Negative, Urine Urobilinogen Normal, Ur Leukocyte Esterase Negative, Urine RBC 0-5 SEEN, Urine WBC 0-5 SEEN, Ur Squamous Epith Cells 0-5 SEEN, Urine Bacteria RARE, Urine Mucus 0 SEEN, Urine Opiates Screen NEGATIVE, Urine Methadone Screen NEGATIVE, Ur Barbiturates Screen NEGATIVE, Ur Phencyclidine Scrn NEGATIVE, Ur Amphetamines Screen NEGATIVE, MDMA (Ecstasy) Screen NEGATIVE, U Benzodiazepines Scrn NEGATIVE, Urine Cocaine Screen NEGATIVE, U Cannabinoids Screen NEGATIVE, Ur Drug Screen Comment 07/18/24 21:20: TSH 3.550, Ethyl Alcohol < 3.0 07/18/24 22:22: POC Glucose 226 H 07/18/24 23:15: Troponin I High Sens 126 H* 07/19/24 04:45: Triglycerides 193, Cholesterol 137, LDL Cholesterol 54, VLDL Cholesterol 39, HDL Cholesterol 44 07/19/24 06:18: POC Glucose 180 H Radiography Diagnostic Testing: Radiology Impression Brain CT 07/18/24 18:45 IMPRESSION: 1. No acute intracranial abnormality. 2. Encephalomalacia in the occipital lobes compatible with remote infarcts. 3. ASPECTS score 10. Electronically Signed: Morris Camacho MD at 18:55 EDT , ADDENDUM: 07/18/24 1259 IMPRESSION: 1. No acute intracranial abnormality. 2. Encephalomalacia in the occipital lobes compatible with remote infarcts. 3. ASPECTS score 10. N.B. : The above Results were Read Back by Morris Camacho MD to Farrah Ludwig DO, and understanding confirmed on 07/18/2024 18:57:09 (ET). Electronically Signed: Morris Camacho MD at 18:55 EDT , Head/Neck CTA 07/18/24 18:50 IMPRESSION: No acute findings in the arteries of the head and neck. Electronically Signed: Morris Camacho MD at 19:11 EDT , ADDENDUM: 07/18/24 1923 IMPRESSION: No acute findings in the arteries of the head and neck. N.B. : The above Results were Read Back by Morris Camacho MD to Farrah Ludwig DO, and understanding confirmed on 07/18/2024 19:16:15 (ET). Electronically Signed: Morris Camacho MD at 19:11 EDT , Chest X-Ray 07/18/24 19:22 IMPRESSION: No radiographic evidence of acute cardiopulmonary disease. Electronically Signed: Morris Camacho MD at 20:00 EDT , Rhythm Strip Rhythm Strip: Sinus Rhythm Rate: 88 Ectopy: None Physical Exam Const alert and no apparent distress HEENT head/scalp atraumatic and moist oral mucous membranes Eyes EOMs intact bilaterally Eyes Narrative: Difficulty tracking my fingers but she is legally blind. Resp normal respiratory effort, no retractions, no use of accessory muscles and clear to auscultation bilaterally Cardio regular rate, regular rhythm, S1 normal heart sound and S2 normal heart sound GI normal to inspection, nondistended, normoactive bowel sounds, soft to palpation, non-tender and non-distended Extremity normal to inspection, full ROM and no clubbing, cyanosis or edema Neuro Sensorium / Orientation: awake and alert Assessment & Plan Assessment/Plan (1) Hypertensive emergency: (2) Elevated troponin: PLAN: Plan Hypertensive Emergency * BP 229/100. Since improved. Symptomatic with dizziness. * On carvedilol 6.25 BID, losartan 50 daily (lisinopril ordered, will discontinue), start amlodipine. Dizziness * likely 2/2 hypertensive emergency versus vertigo. Less likely this being due to a stroke. * head CT and CTA H+N negative * MRI brain, echo ordered. * Neurology saw in ED and subsequently consulted. Elevated troponin * troponin 130. * suspect type II event. * recent NSTEMI in February. Multivessel disease and transferred to [facility] for mgmt. Pt had PCI to ostial mid circ and ostial RCA. 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 * DM2: a1c 9.2. glargine 26/QHS, VTE prophylaxis: LMWH. Charges/Coding Visit Charges Inpatient E&M: 72219 Subs Hosp L2
[2024-07-19 08:48] VITALS: O2SAT 97
[2024-07-19 09:39] VITALS: BP 173/99; PULSE 71; RESP 16; TEMP 36.3; O2SAT 97
[2024-07-19] MEDS: busPIRone 5 MG Tablet 7.5 MG PO ×2 (09:44→21:52)
[2024-07-19] MEDS: amLODIPine 5 MG Tablet PO (09:45)
[2024-07-19] MEDS: Sertraline 50 MG Tablet 25 MG PO (09:45)
[2024-07-19] MEDS: Aspirin 81 MG TAB.CHEW PO (09:46)
[2024-07-19] MEDS: Enoxaparin 40 MG/0.4 ML Syringe SC (09:47)
[2024-07-19] MEDS: Carvedilol 6.25 MG Tablet PO ×2 (09:47→16:27)
[2024-07-19] MEDS: Losartan Potassium 50 MG Tablet PO (09:47)
[2024-07-19] MEDS: TICAGRELOR 90 MG TABLET PO ×2 (09:47→21:52)
--- NOTE | 2024-07-19 11:40 | CASEMGMT ---
PATTIE LUTHER Face to Face with patient for initial transition planning/care coordination assessment. PATTIE LUTHER introduced self and role at [facility] [place]. Patient lying in bed, alert and oriented. Patient willing to participate in assessment and is able to answer all questions appropriately. Care providers, pharmacy, and demographics verified. Strata: 3 PCP: Luz Mera in [place]. List provided for Local PCPs if wishes to get established in [place] Specialists: none Preferred Pharmacy: [facility] [place] Insurance: [facility] Dual care Prescription Benefit: yes Living Will/HPOA: none LNOK: mother, friend Living Arrangements: Patient lives with caregiver in a mobile home with 6 steps and railing to enter the home. Patient states she is independent at home for care. Transportation: friend DME/HHC: Patient denies DME in the home. No previous HHC or SNF. Patient would like walker for at discharge, prefers [facility]. Green sheet placed on chart with script for hospitalist to sign. Patient wishes to discharge home and is interested in [facility] for med management and education. PATTIE LUTHER made referral to [facility]. Patient states she has no further needs or concerns at this time. CM to follow for discharge planning needs that may arise. Disposition Plan: Patient to discharge home with [facility], family support, and follow-up plans in place. Lisset LAIRD, RN, CM
[2024-07-19 12:19] LABS: Bedside Glucose 212 mg/dL (74-106)
--- NOTE | 2024-07-19 12:28 | CASEMGMT ---
SW met with patient due to SDOH concerns. SW introduced self and role at [facility]. SW provided patient with information on [employer], [employer], [employer], and the [employer] card. Patient stated she is blind, but her caregiver can read the papers for her. Caprice Shay [employer] EQUIPMENT TECHNICIAN G[employer]ER
--- NOTE | 2024-07-19 13:56 | NEURO.CONS ---
Assessment and Plan: Neuro Assessment/Plan This is a 53-year-old female with a past medical history of heart failure, NSTEMI, occipital stroke with visual deficits, hypertension, diabetes, psoriasis who presented to [facility] on 07/18/24 for new neurologic symptoms described as blurred vision, headache, and dizziness. Her systolic BP was >220 in the ED. Symptoms have improved with control of blood pressure. Overall high suspicion for hypertensive emergency. Agree with MRI brain to assess for any evidence of PRES, stroke. 1. MRI brain without contrast 2. Continue on ASA 81 and Brilinta (90mg) 3. BP goal: normotensive 4. Hemoglobin A1c 9.2, work on better blood glucose control in the outpatient setting I personally attended this patient and spent a total time of 60 minutes evaluating this patient including clinical assessment, review of chart, medical history imaging, and determining appropriate treatment and workup. HPI Consult Data Date of Consult: 07/19/24 HPI Narrative HPI Narrative: This is a 53-year-old female with a past medical history of heart failure, NSTEMI, occipital stroke with visual deficits, hypertension, diabetes, psoriasis who presented to [facility] on 07/18/24 for new neurologic symptoms. Amber reports on 07/18 she became dizzy, described as leaning to the left even when she was sitting. No room spinning. Her vision was blurred in both eyes, mild headache. She reports these symptoms started suddenly; describes like I was hit by a freight train. She has never experienced this before. This lasted 20-30 minutes, before symptoms improved. On arrival to the ED, BP was consistently >220systolic, with normal HR and RR. She was afebrile. CT head and CTA were completed and non-acute. Labs in the ED showed creatinine 1.31 with BUN 13, hemoglobin A1c 9.2, elevated troponin level. Currently, Amber reports symptoms have greatly improved, although still feels mild dizzy sensation. Mild headache and tired. For secondary stroke prevention, she is on ASA 81 and Brilinta (90mg) [facility] Medical History Psoriasis HTN (hypertension) Diabetes Home Medications ?Medication ?Instructions ?Recorded ?Last Taken ?Type HumaLOG KwikPen Insulin See Rx Instructions subcut 3XD 07/18/24 Unknown History DIABETES aspirin 81 mg chewable tablet 1 tab PO DAILY 07/18/24 Unknown History atorvastatin 40 mg tablet 40 mg PO DAILY 07/18/24 Unknown History buspirone 7.5 mg tablet 7.5 mg PO BID 07/18/24 Unknown History carvedilol 6.25 mg tablet 6.25 mg PO BID 07/18/24 Unknown History empagliflozin 10 mg tablet 10 mg PO DAILY 07/18/24 Unknown History (Jardiance) insulin glargine 100 unit/mL (3 26 unit subcut QPM 07/18/24 Unknown History mL) subcutaneous pen (Lantus Solostar U-100 Insulin) losartan 50 mg tablet 50 mg PO DAILY 07/18/24 Unknown History ropinirole 0.5 mg tablet 0.5 mg PO TID 07/18/24 Unknown History sertraline 25 mg tablet 25 mg PO DAILY 07/18/24 Unknown History ticagrelor 90 mg tablet (Brilinta) 90 mg PO BID 07/18/24 Unknown History Allergy/AdvReac Type Severity Reaction Status Date / Time No Known Allergies Allergy Verified 07/18/24 18:41 Surgical History History of nasal surgery Hx of lymph node biopsy Hx of cholecystectomy Social History Smoking Status: Current every day smoker tobacco type: cigarettes Vital Signs Vital Signs Vital Signs: 07/18/24 18:35 07/18/24 18:41 07/18/24 19:00 Temperature 98.5 F Temperature Source Oral Pulse Rate 80 80 95 Respiratory Rate 16 16 28 H Respiratory Effort Respiratory Depth Respiratory Pattern Blood Pressure 228/98 H 228/98 H 239/104 H Blood Pressure Mean 141 141 149 Blood Pressure Source Blood Pressure Position Blood Pressure Location Pulse Ox 94 94 95 Oxygen Delivery Method Room Air Room Air Room Air 07/18/24 19:05 07/18/24 19:25 07/18/24 19:35 Temperature Temperature Source Pulse Rate 86 85 Respiratory Rate 25 H 18 Respiratory Effort Respiratory Depth Respiratory Pattern Blood Pressure 229/100 H 202/107 H Blood Pressure Mean 143 138 Blood Pressure Source Blood Pressure Position Blood Pressure Location Pulse Ox 95 97 97 Oxygen Delivery Method Room Air Room Air Room Air 07/18/24 20:00 07/18/24 20:11 07/18/24 20:25 Temperature 98.7 F Temperature Source Pulse Rate 85 86 84 Respiratory Rate 18 18 20 H Respiratory Effort Respiratory Depth Respiratory Pattern Blood Pressure 193/94 H 193/88 H Blood Pressure Mean 127 123 Blood Pressure Source Blood Pressure Position Blood Pressure Location Pulse Ox 97 97 97 Oxygen Delivery Method Room Air Room Air 07/18/24 22:00 07/18/24 22:00 07/18/24 22:00 Temperature 98.4 F 98.4 F 98.4 F Temperature Source Oral Oral Oral Pulse Rate 77 77 77 Respiratory Rate 18 18 18 Respiratory Effort Respiratory Depth Respiratory Pattern Blood Pressure 162/64 H 162/64 H 162/64 H Blood Pressure Mean 96 96 96 Blood Pressure Source Monitor Monitor Monitor Blood Pressure Position Semi-Fowlers Semi-Fowlers Semi-Fowlers Blood Pressure Location Left Arm Left Arm Left Arm Pulse Ox 94 94 94 Oxygen Delivery Method Room Air Room Air Room Air 07/18/24 22:00 07/18/24 23:25 07/19/24 02:00 Temperature 98.0 F Temperature Source Oral Pulse Rate 65 Respiratory Rate 18 Respiratory Effort Normal Non-Labored Respiratory Depth Normal Respiratory Pattern Normal Blood Pressure 161/70 H Blood Pressure Mean 100 Blood Pressure Source Monitor Blood Pressure Position Semi-Fowlers Blood Pressure Location Left Arm Pulse Ox 96 97 Oxygen Delivery Method Room Air Room Air Room Air 07/19/24 02:00 07/19/24 02:15 07/19/24 06:00 Temperature 98.0 F 98.3 F Temperature Source Oral Oral Pulse Rate 65 74 Respiratory Rate 18 18 Respiratory Effort Normal Non-Labored Respiratory Depth Normal Respiratory Pattern Normal Blood Pressure 161/70 H 177/66 H Blood Pressure Mean 100 103 Blood Pressure Source Monitor Monitor Blood Pressure Position Semi-Fowlers Semi-Fowlers Blood Pressure Location Left Arm Left Arm Pulse Ox 97 100 Oxygen Delivery Method Room Air Room Air Room Air 07/19/24 06:00 07/19/24 08:48 07/19/24 09:39 Temperature 98.3 F 97.3 F L Temperature Source Oral Oral Pulse Rate 74 71 Respiratory Rate 18 16 Respiratory Effort Respiratory Depth Respiratory Pattern Blood Pressure 177/66 H 173/99 H Blood Pressure Mean 103 123 Blood Pressure Source Monitor Monitor Blood Pressure Position Semi-Fowlers Semi-Fowlers Blood Pressure Location Left Arm Left Arm Pulse Ox 100 97 97 Oxygen Delivery Method Room Air Room Air Room Air Weight Weight: 101.3 kg Body Mass Index (BMI) 39.5 NIHSS NIHSS Nursing Documentation NIHSS Nursing Documentation: NIHSS: Ischemic Stroke/TIA Start: 07/18/24 21:10 Text: For PCU Patients: NIH and Neuro Check every 4 Status: Active hours, PRN and with change in RN caregiver. Freq: [id number] Protocol: Activity Type Activity Date Activity User E-sign Co-sign Detail Recorded Client Recorded Date Recorded By Document 07/19/24 10:16 [facility] [id number] 07/19/24 10:24 [facility] 07/19/24 10:16 NIH Stroke Scale [NIHSS] A score of 0 is normal or asymptomatic . Total possible score is 42. Inpatient: RN or Physician to activate a stroke alert for onset of new stroke symptoms or with NIHSS increase >/= 3 points. Following change in neurological status, NIHSS will be performed per physician order or more frequently PRN. -1a. Level of Consciousness Alert; keenly responsive -1b. LOC Questions Answers BOTH questions correctly. -1c. LOC Commands Performs both tasks correctly . -2. Best Gaze Normal -3. Visual Bilateral hemianopia ( blind, including cortical blindness) -4. Facial Palsy Normal symmetrical movements -5a. Left Arm No drift; arm holds 90 (or 45 ) degrees for full 10 seconds -5b. Right Arm No drift; arm holds 90 (or 45 ) degrees for full 10 seconds -6a. Left Leg No drift; leg holds 30-degree position for full 5 seconds -6b. Right Leg No drift; leg holds 30-degree position for full 5 seconds -7. Limb Ataxia Absent -8. Sensory Normal; no sensory loss -9. Best Language No aphasia; normal -10. Dysarthria Normal -11. Extinction and Inattention No abnormality -Total 3 Query Text:A score of 0 is normal or asymptomatic. Total possible score is 42 . ED: Notify Physician for NIHSS increase by > / = 3 points. Inpatient: RN or Physician to activate a stroke alert for NIHSS increase of > / = 3 points. Coma Scale [Assess] -Eye Opening Spontaneous -Motor Obeys Commands -Verbal Oriented [Total] -Coma Scale Total 15 Physical Exam Neuro Neuro Narrative: Mental Status: The patient was alert and oriented to person, place, month, and year Language: speech is fluent and without dysarthria. Naming and repletion are intact Cranial Nerves: Pupils are equal and reactive to light. Central visual barriga are missing (chronic)? EOMI, no nystagmus is appreciated, visual barriga full, face is symmetric at rest and with activation, hearing is intact to conversational tone, tongue protrudes midline. Facial sensation is intact to light touch, and equal bilaterally. Motor: ?All extremities are antigravity. No pronator drift noted. Muscle bulk appears normal. Sensation- Intact to light touch bilaterally Coordination: No dysmetria on [id number], finger follow finger or [id number]. No truncal ataxia Lab / Micro Data 07/18/24 18:50 07/18/24 18:50 Labs: Laboratory Results - last 24 hr 07/18/24 18:38: POC Glucose 289 H 07/18/24 18:50: WBC 10.7, RBC 5.08, Hgb 15.4 H, Hct 46.1, MCV 90.7, MCH 30.3, MCHC 33.4, RDW Std Deviation 44.2 H, RDW Coeff of Nhung 13.2, Plt Count 293, MPV 11.8, Immature Gran % (Auto) 0.300, Neut % (Auto) 53.9, Lymph % (Auto) 34.2, [place] % (Auto) 8.4, Eos % (Auto) 2.4, Baso % (Auto) 0.8, Absolute Neuts (auto) 5.7, Absolute Lymphs (auto) 3.65, Nucleated RBC % 0, PT 12.9, INR 1.0, APTT 25.2, Sodium 138, Potassium 3.5, Chloride 106, Carbon Dioxide 27.0, Anion Gap 6, BUN 13, Creatinine 1.31 H, Estim Creat Clear Calc 56.02, Est GFR (MDRD) Af Amer 55 L, Est GFR (MDRD) Non-Af 45 L, BUN/Creatinine Ratio 9.9 L, Glucose 294 H, Hemoglobin A1c 9.2 H, Calcium 9.3, Troponin I High Sens 130 H* 07/18/24 20:08: Urine Color Yellow, Urine Clarity Clear, Urine pH 6.0, Ur Specific [place] 1.010, Urine Protein 30 H, Urine Glucose (UA) 1000 H, Urine Ketones Negative, Urine Occult Blood Negative, Urine Nitrite Negative, Urine Bilirubin Negative, Urine Urobilinogen Normal, Ur Leukocyte Esterase Negative, Urine RBC 0-5 SEEN, Urine WBC 0-5 SEEN, Ur Squamous Epith Cells 0-5 SEEN, Urine Bacteria RARE, Urine Mucus 0 SEEN, Urine Opiates Screen NEGATIVE, Urine Methadone Screen NEGATIVE, Ur Barbiturates Screen NEGATIVE, Ur Phencyclidine Scrn NEGATIVE, Ur Amphetamines Screen NEGATIVE, MDMA (Ecstasy) Screen NEGATIVE, U Benzodiazepines Scrn NEGATIVE, Urine Cocaine Screen NEGATIVE, U Cannabinoids Screen NEGATIVE, Ur Drug Screen Comment 07/18/24 21:20: TSH 3.550, Ethyl Alcohol < 3.0 07/18/24 22:22: POC Glucose 226 H 07/18/24 23:15: Troponin I High Sens 126 H* 07/19/24 04:45: Triglycerides 193, Cholesterol 137, LDL Cholesterol 54, VLDL Cholesterol 39, HDL Cholesterol 44 07/19/24 06:18: POC Glucose 180 H 07/19/24 11:56: POC Glucose 212 H Rhythm Strip Rhythm Strip: Sinus Rhythm Rate: 88 Ectopy: None Imaging Radiology Impression Brain CT 07/18/24 18:45 IMPRESSION: 1. No acute intracranial abnormality. 2. Encephalomalacia in the occipital lobes compatible with remote infarcts. 3. ASPECTS score 10. Electronically Signed: Morris Camacho MD at 18:55 EDT , ADDENDUM: 07/18/24 1904 IMPRESSION: 1. No acute intracranial abnormality. 2. Encephalomalacia in the occipital lobes compatible with remote infarcts. 3. ASPECTS score 10. N.B. : The above Results were Read Back by Morris Camacho MD to Farrah Ludwig DO, and understanding confirmed on 07/18/2024 18:57:09 (ET). Electronically Signed: Morris Camacho MD at 18:55 EDT , Head/Neck CTA 07/18/24 18:50 IMPRESSION: No acute findings in the arteries of the head and neck. Electronically Signed: Morris Camacho MD at 19:11 EDT , ADDENDUM: 07/18/24 1923 IMPRESSION: No acute findings in the arteries of the head and neck. N.B. : The above Results were Read Back by Morris Camacho MD to Farrah Ludwig DO, and understanding confirmed on 07/18/2024 19:16:15 (ET). Electronically Signed: Morris Camacho MD at 19:11 EDT , Chest X-Ray 07/18/24 19:22 IMPRESSION: No radiographic evidence of acute cardiopulmonary disease. Electronically Signed: Morris Camacho MD at 20:00 EDT , Active Medications Active Medications Active Medications: Current Medications Generic Name Dose Route Start Last Admin Trade Name Freq PRN Reason Stop Dose Admin Acetaminophen 650 mg 07/18/24 21:10 Acetaminophen 325 Mg Tablet PO Q4H PRN PRN Pain 1-5/10 Or Fever>99.6 Amlodipine Besylate 5 mg 07/19/24 10:00 07/19/24 09:45 Amlodipine 5 Mg Tablet PO 5 mg DAILY GER Administration Protocol Aspirin 81 mg 07/19/24 08:00 07/19/24 09:46 Aspirin 81 Mg Tab.Chew PO 81 mg DAILYCM GER Administration Atorvastatin Calcium 40 mg 07/18/24 22:00 07/18/24 22:25 Atorvastatin Calcium 40 Mg Tablet PO 40 mg 2200 [facility] Administration Buspirone HCl 7.5 mg 07/18/24 22:00 07/19/24 09:44 Buspirone 5 Mg Tablet PO 7.5 mg BID [facility] Administration Carvedilol 6.25 mg 07/18/24 22:00 07/19/24 09:47 Carvedilol 6.25 Mg Tablet PO 6.25 mg BIDCM [facility] Administration Protocol Enoxaparin Sodium 40 mg 07/19/24 10:00 07/19/24 09:47 Enoxaparin 40 Mg/0.4 Ml Syringe SC 40 mg DAILY GER Administration Hydralazine HCl 5 mg 07/18/24 21:10 Hydralazine 20 Mg/Ml Vial IV 07/19/24 21:10 Q30M PRN maintain BP parameters with HR <60 Sodium Chloride 500 mls @ 15 mls/hr 07/18/24 21:17 IV .[id number] PRN Saline Flush Sodium Chloride 500 mls @ 15 mls/hr 07/18/24 21:17 IV .[id number] PRN Additional IVPB Infusion Insulin Glargine 26 unit 07/19/24 22:00 Insulin Glargine-Yfgn 100 Unit/Ml Pen SC 2199 [facility] Insulin Human Lispro 0 unit 07/19/24 07:00 07/19/24 12:00 Insulin Lispro 100 Unit/Ml Insuln.Pen SC 1 unit ACHS [facility] Administration Protocol Labetalol HCl 20 mg 07/18/24 18:45 Labetalol (Prefilled) 20 Mg/4 Ml Vial IV 07/19/24 18:45 X1 PRN BLOOD PRESSURE Losartan Potassium 50 mg 07/19/24 10:00 07/19/24 09:47 Losartan Potassium 50 Mg Tablet PO 50 mg DAILY [facility] Administration Protocol Nicotine 14 mg 07/18/24 21:10 07/19/24 09:47 Nicotine 14 Mg Patch TD 14 mg DAILY [facility] Administration Oxycodone HCl 5 mg 07/18/24 21:10 07/18/24 22:31 Oxycodone 5 Mg Tablet PO 5 mg Q6H PRN PRN Administration Pain Score 6-10 Pramipexole Dihydrochloride 0.25 mg 07/18/24 22:00 07/19/24 13:14 Pramipexole Di-Hcl 0.25 Mg Tablet PO 0.25 mg TID G[facility] Administration Scopolamine HBr 1 patch 07/18/24 23:45 07/18/24 23:58 Scopolamine 1mg/72hr Patch TD 1 patch Q3D@2200 [facility] Administration Sertraline HCl 25 mg 07/19/24 10:00 07/19/24 09:45 Sertraline 50 Mg Tablet PO 25 mg DAILY [facility] Administration Sodium Chloride 10 - 40 ml 07/18/24 21:17 07/18/24 22:23 0.9% Saline Lock 10 Ml Syringe IV 10 ml UD PRN Administration SALINE FLUSH Ticagrelor 90 mg 07/18/24 22:00 07/19/24 09:47 Ticagrelor 90 Mg Tablet PO 90 mg BID GER Administration
--- NOTE | 2024-07-19 14:11 | CHAPLAIN ---
Type of Pastoral Visit _x__ Initial Visit ___ Follow-up Visit ___ On-call Visit ___ General Patient Visit ___ Spiritual Assessment ___ Family Conference ___ Bereavement ___ Rapid Response ___ Code Blue ___ Other (describe below) Pastoral Care Referral From _x__ Patient ___ Family ___ Nurse ___ Physician ___ Washer Off ___ Director Of Corporate Sales ___ Other (describe below) Sacrament/Intervention _x__ Active listening ___ Anointing ___ Mandaeism ___ Bereavement ___ Communion ___ Christina exploration ___ ___ Life review ___ Prayer ___ Reconciliation ___ Sacrament of Sick _x__ Supportive presence ___ Wedding ___ Other (describe below) Pastoral Comments patient is sitting up in the chair but not communicative; pt is asked questions but she does not answer much but with one word answers; pt states she has help and that she has no concerns but presents with a negative and frustrated attitude that is affirmed by her statements of unhappiness at being in the hospital and not knowing how to handle it all; offers of support, presence, and prayer are all denied; pt states that she just wants her lunch as she has not eaten all day;
[2024-07-19 16:01] VITALS: BP 169/73; PULSE 60; RESP 16; TEMP 36.4; O2SAT 97
[2024-07-19 16:46] LABS: Bedside Glucose 263 mg/dL (74-106)
[2024-07-19 17:00] VITALS: BMI 39.5
--- NOTE | 2024-07-19 20:42 | MRI_ITS ---
STUDY: MRI BRAIN WITHOUT CONTRAST REASON FOR EXAM: Female, 53 years old. Dizziness with visual disturbance; eval. for CVA. TECHNIQUE: Standardized multiplanar fat and water weighted pulse sequences were obtained. COMPARISON: Head CT dated July 18, 2024.. FINDINGS: A small acute infarct is present at the peripheral aspect of the left occipital lobe. No additional acute infarcts are present. Pre-existing infarcted parenchyma with associated volume loss and gliosis involving the anterior to posterior aspect of the left occipital lobe. Mild cortical gliosis and volume loss is present in the posterior and medial aspect of the right occipital lobe from prior infarction. There is mild cerebral atrophy with widening of the extra-axial spaces and ventricular dilatation. There are a limited number of small white matter hyperintensities, distributed throughout the deep white matter tracts of the cerebral hemispheres, consistent with mild chronic white matter ischemic changes. Normal T2* images of the brain without demonstrated susceptibility artifact. There is no demonstrated hemosiderin stain. Normal bilateral basal ganglia. Normal thalami. There is no extra-axial fluid accumulation. Normal flow voids within the major intracranial circulation suggesting patency by spin echo criteria. Normal sella turcica, pituitary gland, infundibular stalk, optic chiasm and hypothalamus. Normal tectal plate and pineal gland. Normal midbrain, bhavani and medulla. Normal cerebellum. Normal basal cisterns. Normal bilateral temporal bones. Normal bilateral internal auditory canals. No demonstrated orbital abnormality, within the constraints of a routine brain study. Normal visualized paranasal sinuses. Normal calvarium and skull base. Normal visualized soft tissue structures. Normal visualized upper cervical spine. MRI/Brain without Contrast IMPRESSION: 1. Small acute infarct is present at the peripheral aspect of the left occipital lobe. No additional acute infarcts are present Electronically Signed: Richard Sewell MD at 15:52 EDT Reading Location ID and State: [facility] / [place] , Service support ,
[2024-07-19] MEDS: Atorvastatin Calcium 40 MG Tablet PO (21:52)
[2024-07-19] MEDS: Insulin Glargine-YFGN 100 UNIT/ML Pen 26 UNIT SC (21:56)
[2024-07-19 22:00] VITALS: BP 161/75; PULSE 71; RESP 16; TEMP 36.1; O2SAT 94
[2024-07-19 23:07] LABS: Bedside Glucose 222 mg/dL (74-106)
[2024-07-20 01:30] VITALS: BP 147/81; PULSE 73; RESP 16; TEMP 35.9; O2SAT 95
[2024-07-20 02:00] VITALS: BP 161/78; PULSE 69; RESP 14; TEMP 36.1; O2SAT 96
[2024-07-20 05:37] LABS: Absolute Lymphocyte Count 3.78 X10^3/uL (0.83-4.51); Absolute Neutrophil Count 6.4 X10^3/uL (2.0-7.7); Basophil# 0.09 X10^3/uL; Basophil% 0.8 % (0-1); Eosinophil# 0.37 X10^3/uL; Eosinophils% 3.2 % (0-5); Hematocrit 44.2 % (37-47); Hemoglobin 14.7 g/dL (12.0-15.0); Lymphocyte # 3.78 X10^3/ul (0.83-4.51); Lymphocyte % 32.5 % (19-41); Mean Corp Hgb Conc 33.3 g/dL (32-36); Mean Corpuscular Hgb 30.2 pg (27.0-32.0); Mean Corpuscular Volume 90.9 fL (81-99); Mean Platelet Vol. 12.2 fl (6.2-12.0); Monocyte# 0.93 X10^3/uL; NRBC Flagged by Analyzer 0 % (0-5); Neutrophil # 6.42 X10^3/uL (2.7-7.7); Neutrophil % 55.2 % (47-70); Platelet Count 255 K/mm3 (150-450); RBC Distribution Width CV 13.2 % (11.6-14.6); RBC Distribution Width SD 43.8 fl (35.1-43.9); Red Blood Count 4.86 M/mm3 (4.2-5.4); White Blood Count 11.6 K/mm3 (4.4-11.0)
[2024-07-20] MEDS: Pramipexole Di-HCl 0.25 MG Tablet PO ×2 (05:54→13:29)
[2024-07-20] MEDS: Insulin Lispro 100 UNIT/ML INSULN.PEN SC ×2 (05:57→12:01)
[2024-07-20 06:00] VITALS: BP 151/73; PULSE 70; RESP 14; TEMP 36.4; O2SAT 97
[2024-07-20 06:16] LABS: Anion Gap 5 (5-15); BUN 18 mg/dL (7-18); BUN/Creat Ratio 17.6 RATIO (10-20); Chloride 110 mmol/L (98-107); Creatinine, Serum 1.02 mg/dL (0.55-1.02); EST Glomerular Filtration Rate 60 mL/min (>60); Est Glom Filt Rate - Afr Amer 73 mL/min (>60); Estimated Creatinine Clearance 73.29 ml/min; Glucose 178 mg/dL (74-106); Potassium 3.6 mmol/L (3.5-5.1); Sodium Level 139 mmol/L (136-145)
--- NOTE | 2024-07-20 07:30 | PN.HOSP_ITS ---
Reason for Visit Reason for Visit: Diagnoses Obesity, unspecified (07/18/24) Hyperlipidemia, unspecified (07/18/24) Unspecified visual disturbance (07/18/24) Hypertensive emergency (07/18/24) Old myocardial infarction (07/18/24) Dizziness and giddiness (07/18/24) Other specified abnormal findings of blood chemistry (07/18/24) Tobacco use (07/18/24) Subjective Subjective Still dizzy but better. Objective Data Objective Data Vital Signs: Vital Signs Temp Pulse Resp BP Pulse Ox O2 Del Method 36.4 C L 70 14 151/73 H 97 Room Air 07/20/24 06:00 07/20/24 06:00 07/20/24 06:00 07/20/24 06:00 07/20/24 06:00 07/20/24 06:00 Oxygen Delivery Method Room Air Weight: 101.3 kg Body Mass Index (BMI) 39.5 Intake & Output: Intake and Output for Last 24 Hours 07/18/24 07/19/24 07/20/24 23:59 23:59 23:59 Intake Total 220 / 220 0 / 0 Balance 220 / 220 0 / 0 Lab / Micro Data 07/20/24 04:23 07/20/24 04:23 Labs: Laboratory Results - last 24 hr 07/19/24 11:56: POC Glucose 212 H 07/19/24 16:24: POC Glucose 263 H 07/19/24 21:54: POC Glucose 222 H 07/20/24 04:23: WBC 11.6 H, RBC 4.86, Hgb 14.7, Hct 44.2, MCV 90.9, MCH 30.2, MCHC 33.3, RDW Std Deviation 43.8, RDW Coeff of Nhung 13.2, Plt Count 255, MPV 12.2 H, Immature Gran % (Auto) 0.300, Neut % (Auto) 55.2, Lymph % (Auto) 32.5, [place] % (Auto) 8.0, Eos % (Auto) 3.2, Baso % (Auto) 0.8, Absolute Neuts (auto) 6.4, Absolute Lymphs (auto) 3.78, Nucleated RBC % 0, Sodium 139, Potassium 3.6, Chloride 110 H, Carbon Dioxide 24.0, Anion Gap 5, BUN 18, Creatinine 1.02, Estim Creat Clear Calc 73.29, Est GFR (MDRD) Af Amer 73, Est GFR (MDRD) Non-Af 60, BUN/Creatinine Ratio 17.6, Glucose 178 H, Calcium 9.0 Radiography Diagnostic Testing: Radiology Impression Echocardiogram 07/18/24 20:42 Interpretation Summary The estimated ejection fraction is 60 %. Diastolic function is indeterminate. Severe concentric left ventricular hypertrophy. The left atrium is mildly enlarged. Bubble contrast study negative for right to left interatrial shunt. Mild (1+) mitral valve insufficiency. Mild focal aortic valve calcification. The study was technically difficult. Contrast injection was performed. Ordering Physician: Teddy Long Referring Physician: Teddy Long Performed By: Carol Villela RCS Brain MRI 07/19/24 20:42 IMPRESSION: 1. Small acute infarct is present at the peripheral aspect of the left occipital lobe. No additional acute infarcts are present Electronically Signed: Richard Sewell MD at 15:52 EDT Reading Location ID and State: [facility] / [place] , Service support , ADDENDUM: 07/19/24 1623 IMPRESSION: 1. Small acute infarct is present at the peripheral aspect of the left occipital lobe. No additional acute infarcts are present N.B. : Madonna Garcia RN, confirmed on 07/19/2024 16:16:17 (ET) that the healthcare facility has received the radiology report. Electronically Signed: Richard Sewell MD at 15:52 EDT , Rhythm Strip Rhythm Strip: Sinus Rhythm Rate: 88 Ectopy: None Physical Exam Const alert and no apparent distress HEENT head/scalp atraumatic and moist oral mucous membranes Resp normal respiratory effort, no retractions, no use of accessory muscles and clear to auscultation bilaterally Cardio regular rate, regular rhythm, S1 normal heart sound and S2 normal heart sound GI normal to inspection, nondistended, normoactive bowel sounds, soft to palpation, non-tender and non-distended Neuro Sensorium / Orientation: awake and alert Assessment & Plan Assessment/Plan (1) Hypertensive emergency: (2) Elevated troponin: PLAN: Plan Hypertensive Emergency * BP 229/100 on admission. Since improved. Symptomatic with dizziness. * On carvedilol 6.25 BID, losartan 50 daily (lisinopril ordered, will discontinue), start amlodipine. CVA * MRI brain shows small acute infarct at the periphery of the left occipital lobe. * Continue ASA, ticagrelor, atorvastatin * 30-day event monitor after discharge. Dizziness * given the location of the CVA, I still suspect it was not due to the CVA, but could be due to the hypertensive emergency or BPPV. * meclizine PRN. Elevated troponin * troponin 130. * suspect type II event 2/2 CVA, hypertensive emergency. * recent NSTEMI in February. Multivessel disease and transferred to [facility] for mgmt. Pt had PCI to ostial mid circ and ostial RCA. * continue ASA, ticagrelor, losartan, atorvastatin * Echo shows an EF 60%. Severe concentric LVH. 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 * DM2: a1c 9.2. glargine 26/QHS, VTE prophylaxis: LMWH.
[2024-07-20 10:00] VITALS: BP 182/93; PULSE 70; RESP 16; TEMP 37.1; O2SAT 95
[2024-07-20] MEDS: busPIRone 5 MG Tablet 7.5 MG PO (11:00)
[2024-07-20] MEDS: Carvedilol 6.25 MG Tablet PO (11:00)
[2024-07-20] MEDS: Aspirin 81 MG TAB.CHEW PO (11:00)
[2024-07-20] MEDS: Losartan Potassium 50 MG Tablet PO (11:01)
[2024-07-20] MEDS: Sertraline 50 MG Tablet 25 MG PO (11:02)
[2024-07-20] MEDS: amLODIPine 5 MG Tablet PO (11:03)
[2024-07-20] MEDS: TICAGRELOR 90 MG TABLET PO (11:03)
--- NOTE | 2024-07-20 11:10 | PCM.DC.SUM ---
Providers Date of Admission: 07/18/24 Primary Care Physician: KLAUDIA MCDERMOTT Consultations 07/18/24 21:10 Consult: Tele-Neurology Routine Consulting Provider: [facility] Reason for Consult: Acute Ischemic Stroke/TIA EMERGENT Consult: No MD Notified: Yes Date Notified: 07/18/24 Time Notified: 20:37 Method of Notification: ED Physician Initiated Method of Consult:: Telemedicine Nursing Unit Staff Notify [facility] of Tele-Neurology Consult: Yes Reason For Visit: HYPERTENSIVE EMERGENCY AND ELEVATED TROPONIN Diagnosis Discharge Diagnosis (1) Hypertensive emergency: Status: Acute Code(s): I16.1 - Hypertensive emergency (2) Elevated troponin: Status: Acute Code(s): R79.89 - Other specified abnormal findings of blood chemistry Plan Hypertensive Emergency BP 229/100 on admission. Since improved. Symptomatic with dizziness. On carvedilol 6.25 BID, losartan 50 daily (lisinopril ordered, will discontinue), start amlodipine. CVA MRI brain shows small acute infarct at the periphery of the left occipital lobe. Continue ASA, ticagrelor, atorvastatin 30-day event monitor after discharge. Dizziness given the location of the CVA, I still suspect it was not due to the CVA, but could be due to the hypertensive emergency or BPPV. meclizine PRN. Elevated troponin troponin 130. suspect type II event 2/2 CVA, hypertensive emergency. recent NSTEMI in February. Multivessel disease and transferred to [facility] for mgmt. Pt had PCI to ostial mid circ and ostial RCA. continue ASA, ticagrelor, losartan, atorvastatin Echo shows an EF 60%. Severe concentric LVH. 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 DM2: a1c 9.2. glargine 26/QHS, VTE prophylaxis: LMWH. Medications at Discharge Home Medications HumaLOG KwikPen Insulin See Rx Instructions subcut 3XD DIABETES 07/18/24 aspirin 81 mg chewable tablet 1 tab PO DAILY 07/18/24 buspirone 7.5 mg tablet 7.5 mg PO BID 07/18/24 carvedilol 6.25 mg tablet 6.25 mg PO BID 07/18/24 empagliflozin 10 mg tablet (Jardiance) 10 mg PO DAILY 07/18/24 insulin glargine 100 unit/mL (3 mL) subcutaneous pen (Lantus Solostar U-100 Insulin) 26 unit subcut QPM 07/18/24 losartan 50 mg tablet 50 mg PO DAILY 07/18/24 ropinirole 0.5 mg tablet 0.5 mg PO TID 07/18/24 sertraline 25 mg tablet 25 mg PO DAILY 07/18/24 ticagrelor 90 mg tablet (Brilinta) 90 mg PO BID 07/18/24 amlodipine 5 mg tablet 5 mg PO DAILY #30 tabs 07/20/24 atorvastatin 40 mg tablet 80 mg (2 x 40 mg) PO DAILY 30 days #60 tabs 07/20/24 meclizine 12.5 mg tablet 12.5 mg PO TID PRN PRN Dizziness #20 tabs 07/20/24 Hospital Course Operations None Procedures 2-D Echocardiogram Summary of Care Provided Minutes Spent on Discharge: 32 Hospital Course: Patient presents with dizziness. She was also profoundly hypertensive which came in here. Initially the blood pressure was felt to be either due to hypertension or benign vertigo but her MRI did show an occipital stroke. I do not feel that stroke caused her dizziness but may have exacerbated her blood pressure to maintain cerebral perfusion pressure but patient's dizziness is overall improved. Patient was seen in consultation by neurology as well. Patient is already on dual antiplatelet therapy for recent PCI that she had this summer. Patient is atorvastatin will be increased from 40-80 daily. For her blood pressure, amlodipine has been added. Patient was also on lisinopril and losartan as outpatient but lisinopril be discontinued as it was a lower dose. So further up titration of the amlodipine may be necessary in the future if blood pressure is not responsive to that. Weight / BMI Weight Weight: 101.3 kg Body Mass Index (BMI) 39.5 ABG / Lab / Microbiology Data 07/20/24 04:23 07/20/24 04:23 Laboratory: Laboratory Results - last 24 hr 07/19/24 11:56: POC Glucose 212 H 07/19/24 16:24: POC Glucose 263 H 07/19/24 21:54: POC Glucose 222 H 07/20/24 04:23: WBC 11.6 H, RBC 4.86, Hgb 14.7, Hct 44.2, MCV 90.9, MCH 30.2, MCHC 33.3, RDW Std Deviation 43.8, RDW Coeff of Nhung 13.2, Plt Count 255, MPV 12.2 H, Immature Gran % (Auto) 0.300, Neut % (Auto) 55.2, Lymph % (Auto) 32.5, [place] % (Auto) 8.0, Eos % (Auto) 3.2, Baso % (Auto) 0.8, Absolute Neuts (auto) 6.4, Absolute Lymphs (auto) 3.78, Nucleated RBC % 0, Sodium 139, Potassium 3.6, Chloride 110 H, Carbon Dioxide 24.0, Anion Gap 5, BUN 18, Creatinine 1.02, Estim Creat Clear Calc 73.29, Est GFR (MDRD) Af Amer 73, Est GFR (MDRD) Non-Af 60, BUN/Creatinine Ratio 17.6, Glucose 178 H, Calcium 9.0 Radiography Diagnostic Testing: Radiology Impression Echocardiogram 07/18/24 20:42 Interpretation Summary The estimated ejection fraction is 60 %. Diastolic function is indeterminate. Severe concentric left ventricular hypertrophy. The left atrium is mildly enlarged. Bubble contrast study negative for right to left interatrial shunt. Mild (1+) mitral valve insufficiency. Mild focal aortic valve calcification. The study was technically difficult. Contrast injection was performed. Ordering Physician: Teddy Long Referring Physician: Teddy Long Performed By: Carol Villela RCS Brain MRI 07/19/24 20:42 IMPRESSION: 1. Small acute infarct is present at the peripheral aspect of the left occipital lobe. No additional acute infarcts are present Electronically Signed: Richard Sewell MD at 15:52 EDT Reading Location ID and State: [facility] / [place] , Service support , ADDENDUM: 07/19/24 1623 IMPRESSION: 1. Small acute infarct is present at the peripheral aspect of the left occipital lobe. No additional acute infarcts are present N.B. : Madonna Garcia RN, confirmed on 07/19/2024 16:16:17 (ET) that the healthcare facility has received the radiology report. Electronically Signed: Richard Sewell MD at 15:52 EDT Reading Location ID and State: [facility] / [place] , Service support , D/C Instructions Discharge Diet: 1999 Calorie Control Diet Meaningful Use Info Meaningful Use Meaningful Use Diagnoses (Choose all that apply): Ischemic CVA CVA Therapy Assessed for PT,OT and/or ST?: Yes Ischemic Stroke Antithrombotic order at d/c?: Yes Dx of Atrial fib/flutter?: No Anticoagulant at discharge?: No Reason anticoagulant not ordered: Treatment not Indicated Statin Dosing Therapy Reference: STATIN DOSE THERAPY REFERENCE: * Patients > 75 years receive moderate or high dose statin therapy. * Patients 75 years or YOUNGER should receive HIGH intensity statin dose unless contraindicated. You will be required to document reason for non-treatment if statin daily dose does not meet guidelines. HIGH DOSE STATIN THERAPY DAILY Atorvastatin > than or = to 40 mg Rosuvastatin > than or = to 20 mg Amlodipine + Atorvastatin > than or = to 2.5/40 mg Ezetimibe + Simvastatin 10/80 mg Simvastatin 80mg Statins at discharge?: Yes If patient is 75 or younger, pt will be discharged on HIGH intensity statin.: Yes Primary Dx Acute Ischemic CVA?: Yes IV thrombolytic ordered during stay?: No Reason IV thrombolytic not ordered: Procedure not Indicated Discharge Plan Admission Admit Date/Time: 07/18/24 20:34 Primary Reason for Your Visit: CVA Attending Provider: Yaniv Nash Primary Care Provider: KLAUDIA MCDERMOTT Consulting Providers: Avtar Montelongo; Warren Reilly; Christy Walter; Mari Sanchez; Lala Penn; Cesar Astorga; Sheela Durand; Edwardo Peña; Jerardo Hinds; Fly Huntley; Ashlyn Triplett; Jayden Rodrigues; Patricia Vergara; Aleks Cantu; Nicholas Norman; Gerardo Lawrence; Sherwin Bustos; Diego Barr; Ana Cristina Clarke; Farzad Dodson; Teddy Long Discharge Orders/Prescriptions Prescriptions: New meclizine 12.5 mg Tablet 12.5 mg PO TID PRN PRN (Reason: Dizziness) Qty: 20 0RF amlodipine 5 mg Tablet 5 mg PO DAILY Qty: 30 0RF Continued Brilinta 90 mg tablet 90 mg PO BID losartan 50 mg tablet 50 mg PO DAILY carvedilol 6.25 mg tablet 6.25 mg PO BID ropinirole 0.5 mg tablet 0.5 mg PO TID sertraline 25 mg tablet 25 mg PO DAILY buspirone 7.5 mg tablet 7.5 mg PO BID aspirin 81 mg tablet,chewable 1 tab PO DAILY Jardiance 10 mg tablet 10 mg PO DAILY insulin glargine [Lantus Solostar U-100 Insulin] 100 unit/mL (3 mL) insulin pen 26 unit subcut QPM HumaLOG KwikPen Insulin pen injector See Rx Instructions subcut 3XD Protocol: 4. Sliding Scale Insulin High-Med Dosing Condition: 150-199 mg/dl = 2 units Condition: 200-259 mg/dl = 4 units Condition: 260-324 mg/dl = 6 units Condition: 325-374 mg/dl = 8 units Condition: 375-409 mg/dl = 10 units Condition: 410-449 mg/dl = 11 units Condition: Greater than 449 call physician Protocol Text: Suggested for: - Patients on Total Daily Insulin Dose of 56-80 units - Patient who are known to be insulin resistant or septic HIGH MEDIUM DOSING ALGORITHM Rx Instructions: SLIDING SCALE subcutaneously 3 times daily; SLIDING SCALE REFER TO SLIDING SCALE Changed atorvastatin 40 mg tablet 80 mg PO DAILY 30 Days Qty: 60 0RF Referrals / Follow Up: KLAUDIA MCDERMOTT [Other] - Within 2 Weeks KLAUDIA MCDERMOTT [Other] [facility] [Provider Group] - Within 3 Months Disposition Disposition (needs filled in before D/C Order can be placed): Home Health Service Charges/Coding Visit Charges Inpatient E&M: 37202 Disch Hosp >30min
[2024-07-20] MEDS: Enoxaparin 40 MG/0.4 ML Syringe SC (11:32)
[2024-07-20 12:05] LABS: Bedside Glucose 186 mg/dL (74-106)
--- NOTE | 2024-07-20 12:26 | STROKE.PNOTE ---
Objective Data Objective Data Vital Signs: Vital Signs Temp Pulse Resp BP Pulse Ox O2 Del Method 98.7 F 70 16 182/93 H 95 Room Air 07/20/24 10:00 07/20/24 10:00 07/20/24 10:00 07/20/24 10:00 07/20/24 10:00 07/20/24 10:00 Oxygen Delivery Method Room Air Weight: 101.3 kg Body Mass Index (BMI) 39.5 Intake & Output: Intake and Output for Last 24 Hours 07/18/24 07/19/24 07/20/24 23:59 23:59 23:59 Intake Total 220 / 220 0 / 0 Balance 220 / 220 0 / 0 Lab / Micro Data 07/20/24 04:23 07/20/24 04:23 Labs: Laboratory Results - last 24 hr 07/19/24 16:24: POC Glucose 263 H 07/19/24 21:54: POC Glucose 222 H 07/20/24 04:23: WBC 11.6 H, RBC 4.86, Hgb 14.7, Hct 44.2, MCV 90.9, MCH 30.2, MCHC 33.3, RDW Std Deviation 43.8, RDW Coeff of Nhung 13.2, Plt Count 255, MPV 12.2 H, Immature Gran % (Auto) 0.300, Neut % (Auto) 55.2, Lymph % (Auto) 32.5, [place] % (Auto) 8.0, Eos % (Auto) 3.2, Baso % (Auto) 0.8, Absolute Neuts (auto) 6.4, Absolute Lymphs (auto) 3.78, Nucleated RBC % 0, Sodium 139, Potassium 3.6, Chloride 110 H, Carbon Dioxide 24.0, Anion Gap 5, BUN 18, Creatinine 1.02, Estim Creat Clear Calc 73.29, Est GFR (MDRD) Af Amer 73, Est GFR (MDRD) Non-Af 60, BUN/Creatinine Ratio 17.6, Glucose 178 H, Calcium 9.0 07/20/24 05:57: POC Glucose 186 H Radiography Diagnostic Testing: Radiology Impression Echocardiogram 07/18/24 20:42 Interpretation Summary The estimated ejection fraction is 60 %. Diastolic function is indeterminate. Severe concentric left ventricular hypertrophy. The left atrium is mildly enlarged. Bubble contrast study negative for right to left interatrial shunt. Mild (1+) mitral valve insufficiency. Mild focal aortic valve calcification. The study was technically difficult. Contrast injection was performed. Ordering Physician: Teddy Long Referring Physician: Teddy Long Performed By: Carol Villela RCS Brain MRI 07/19/24 20:42 IMPRESSION: 1. Small acute infarct is present at the peripheral aspect of the left occipital lobe. No additional acute infarcts are present Electronically Signed: Richard Sewell MD at 15:52 EDT Reading Location ID and State: [facility] / [place] , Service support , ADDENDUM: 07/19/24 1623 IMPRESSION: 1. Small acute infarct is present at the peripheral aspect of the left occipital lobe. No additional acute infarcts are present N.B. : Madonna Garcia RN, confirmed on 07/19/2024 16:16:17 (ET) that the healthcare facility has received the radiology report. Electronically Signed: Richard Sewell MD at 15:52 EDT , Rhythm Strip Rhythm Strip: Sinus Rhythm Rate: 88 Ectopy: None Physical Exam Neuro Neuro Narrative: Neurological?examination: General: The patient appears nutritionally appropriate, well-groomed, and appears comfortable in no acute distress. Mental Status: ?The patient?s mental status was normal including orientation. ?Language was intact. ?Cranial nerves: ?Difficulty seeing centrally per patient, and extra-ocular motion was intact. Face motion symmetric. Tongue was midline with normal movement. ?There was no dysarthria. Motor: Suspect mild right arm weakness with Mild right arm pronator drift. Otherwise anti-gravity all other limbs without drift.Sensation: Decreased light touch in left leg (chronic per patient). ?Coordination: ?Bilateral finger to nose was normal. ?There was no dysmetria. Gait: ?deferred Subject: Neurology Subjective Patien feels okay this morning. She still feels off balance. She is on Asa, brillinta, lipitor 40, and nicotine patch. Patient has LINQ placed at time of her prior stroke, but has not sent data in a while. Assessment and Plan: Stroke Assessment/Plan NEIL WELLINGTON is a 53 left handed F with a history of psoriasis, CSD, CHF, prior ischemic stroke 4 months ago (LINQ placed) with residual vision deficits (legally blind), HTN, DM, and HL who presents with headache, dizziness, and blurry vision to [facility] on 07/18/24. LKN 07/17 evening, awoke 07/18 feeling off balance. In ER [facility] 229/100. CT brain negative. CTA head/neck negative. She was admitted. MRI brain DWI shows inferior division left MCA infarct, FLAIR shows old left MCA infarct and old right occipital margo infarct. LDL 54, HgbA1c 9.2. TTE EF 605. Neurological examination shows decreased vision and right arm weakness and left leg numbness (chronic), NIHSS 3 (VF-1, RUE-1, sens-1). ASSESSMENT/PLAN: Acute inferior division left MCA ischemic stroke, post stroke day #2. 1) Recommend LINQ interrogation to complete stroke workup. Otherwise stroke work-up completed. 2) Continue anti-platelet medication (on home Asa/brillinta). 3) Continue vascular risk factor modification. On lipitor. Smoking cessation reinforced, on nicoderm. Contiue BP management. 4) Follow-up in outpatient neurology clinic. Will sign off, please callus back with further stroke related questions. Primary team messaged recommendations on backline.
[2024-07-20 13:18] LABS: Bedside Glucose 247 mg/dL (74-106)
--- NOTE | 2024-07-23 08:44 | CCN.REFER ---
T/C TO PATIENT. AGREES TO [facility] WEEKLY HOME VISITS. SPORTS DOCTOR TO ARRANGE HOME VISIT WITHIN WEEK.
--- NOTE | 2024-07-29 14:03 | CCN.REFER ---
PATIENT ORIGINALLY AGREED TO [facility] HOME VISITS. UPON VISIT TO HOME - PATIENT WOULD NOT ALLOW [facility] STAFF INSIDE HOME. LIVING CONDITIONS WERE POOR WITH A VERY CLUTTERED HOME FROM THE VIEWS OUTSIDE. MULTIPLE SUSPICIOUS PEOPLE COMING AND GOING FROM HOME DURING NURSING VISIT IN THE DRIVEWAY. [facility] WILL NOT BE ABLE TO PROVIDE WEEKLY VISITS DUE TO PATIENT NOT AGREEING TO VS MONITORING AND HOME VISITS EACH WEEK.
== END 2024-07-20 15:10 | disposition home or self-care (01) | DRG 64 ==
LOC: ED 19:30 → PCU 20:31
PROVIDERS: Admitting Provider Internal Medicine; Emergency Provider Emergency Medicine; Referring Provider Internal Medicine
DX: I63.9 Cerebral infarction, unspecified (principal); I21.A1 Myocardial infarction type 2; I16.1 Hypertensive emergency; I11.0 Hypertensive heart disease with heart failure; E11.65 Type 2 diabetes mellitus with hyperglycemia; I69.398 Other sequelae of cerebral infarction; F32.A Depression, unspecified; Z68.38 Body mass index [BMI] 38.0-38.9, adult; I50.9 Heart failure, unspecified; M19.90 Unspecified osteoarthritis, unspecified site; H53.8 Other visual disturbances; E78.5 Hyperlipidemia, unspecified; F17.210 Nicotine dependence, cigarettes, uncomplicated; I25.2 Old myocardial infarction; Z79.4 Long term (current) use of insulin; I25.10 Atherosclerotic heart disease of native coronary artery without angina pectoris; R27.0 Ataxia, unspecified; G89.29 Other chronic pain; R79.89 Other specified abnormal findings of blood chemistry; R29.705 NIHSS score 5; H54.8 Legal blindness, as defined in USA; E66.812 Obesity, class 2; Z79.82 Long term (current) use of aspirin; Z79.84 Long term (current) use of oral hypoglycemic drugs; Z79.899 Other long term (current) drug therapy; Z79.02 Long term (current) use of antithrombotics/antiplatelets
CPT/HCPCS: 36415; 70450; 70496; 70498; 70551; 71045; 80048; 80061; 80307; 81001; 82077; 82962; 83036; 84443; 84484; 85025; 85610; 85730; 92610; 93005; 93306; 93880; 94762; 97162; 97166; 97802; 99285; 99406; Q9957; Q9967; A4216; C8929

== ENCOUNTER 2024-08-08 16:02 | Emergency (ER) | payer MEDICARE, MEDICAID, SELFPAY ==
[2024-08-08 16:03] VITALS: BP 120/90; PULSE 74; RESP 16; TEMP 35.8; O2SAT 97
[2024-08-08 17:10] VITALS: BP 141/81; BP 151/84; BP 169/108; PULSE 65; PULSE 68; PULSE 72
--- NOTE | 2024-08-08 17:10 | EKG12_ITS ---
Test Reason : DIZZY Blood Pressure : */* mmHG Vent. Rate : 69 BPM Atrial Rate : 69 BPM P-R Int : 146 ms QRS Dur : 98 ms QT Int : 448 ms P-R-T Axes : -25 -47 94 degrees QTcB Int : 480 ms Normal sinus rhythm Left axis deviation T wave abnormality, consider lateral ischemia Prolonged QT Abnormal ECG Confirmed by TRISHA MOLINA, REFUGIO ([id number]), material expeditor TAN CAPONE ([id number]) on 08/13/2024 7:50:31 AM Referred By: Cricket Fuentes Confirmed By: REFUGIO RICO MD
--- NOTE | 2024-08-08 17:12 | EX.ED.DYSGE1 ---
HPI History of Present Illness Chief Complaint: Dizziness Detail of Chief Complaint: Lightheadedness Informant: patient Onset/Context/Timing Onset: Today and Hours Context: Gradual Onset Timing: Continuous Current Severity: Mild Maximum Severity: Mild Narrative Narrative: 53-year-old female history of stroke x 3, [place] on Brilinta and diabetes. History of stents. States about an hour prior to arrival she felt fuzzy at home. Like lightheadedness. Associated nausea no vomiting. No chest pain. No shortness of breath. Says she took her blood pressure at home it was 104 over something. For her that is low. Says she just overall feels tired. Nausea but no vomiting. No diarrhea or melena. No dysuria or fever. Prior similar symptoms: No Recent Illness/Hospitalization: [facility] Medical History Tobacco abuse Hyperlipidemia History of non-ST elevation myocardial infarction (NSTEMI) Obesity (BMI 30-39.9) Visual disturbance Psoriasis HTN (hypertension) Diabetes Home Medications ?Medication ?Instructions ?Recorded ?Last Taken ?Type HumaLOG KwikPen Insulin See Rx Instructions subcut 3XD 07/18/24 Unknown History DIABETES aspirin 81 mg chewable tablet 1 tab PO DAILY heart health 07/18/24 Unknown History buspirone 7.5 mg tablet 7.5 mg PO BID mental health 07/18/24 Unknown History carvedilol 6.25 mg tablet 6.25 mg PO BID blood pressure 07/18/24 Unknown History empagliflozin 10 mg tablet 10 mg PO DAILY diabetes 07/18/24 Unknown History (Jardiance) insulin glargine 100 unit/mL (3 26 unit subcut QPM diabetes 07/18/24 Unknown History mL) subcutaneous pen (Lantus Solostar U-100 Insulin) losartan 50 mg tablet 50 mg PO DAILY blood pressure 07/18/24 Unknown History ropinirole 0.5 mg tablet 0.5 mg PO TID restless leg 07/18/24 Unknown History sertraline 25 mg tablet 25 mg PO DAILY mental health 07/18/24 Unknown History ticagrelor 90 mg tablet (Brilinta) 90 mg PO BID anti platelet 07/18/24 Unknown History atorvastatin 40 mg tablet 80 mg (2 x 40 mg) PO DAILY 30 days 07/20/24 Unknown Rx #60 tabs meclizine 12.5 mg tablet 12.5 mg PO TID PRN PRN Dizziness 07/20/24 Unknown Rx #20 tabs amlodipine 5 mg tablet 5 mg PO BID #60 tabs 07/25/24 Unknown Rx Allergy/AdvReac Type Severity Reaction Status Date / Time No Known Allergies Allergy Verified 08/08/24 16:08 Surgical History History of nasal surgery Hx of lymph node biopsy Hx of cholecystectomy Social History Smoking Status: Current every day smoker tobacco type: cigarettes ROS ROS ED ROS Narrative Lightheadedness. Nausea without vomiting. No fever. No dysuria. No chest pain. Constitutional Constitutional ED: Denies chills or fever(s) Eyes Eyes: Denies blurry vision ENT ENT ED: Denies ear pain Cardiovascular Cardiovascular: Denies chest pain Respiratory/Chest Respiratory/Chest: Denies cough or dyspnea Gastrointestinal Gastrointestinal: Reports nausea; Denies abdominal pain, constipation, diarrhea, melena or vomiting Genitourinary Genitourinary ED: Denies dysuria or hematuria Musculoskeletal Musculoskeletal: Denies arthralgias Integumentary Denies abscess Neurologic Neurologic: Reports headache(s) Psychiatric Psychiatric: Denies anxiety Endocrine Endocrinology: Denies cold intolerance Hematologic/Lymphatic Hematologic/Lymphatic: Reports none Allergic/Immunologic Allergic/Immunologic ED: Denies mouth swelling, tongue swelling or urticaria EXAM Physical Exam Narrative Exam Narrative: Well-appearing middle-aged female. Vital signs are stable afebrile. Pulse ox 97% on room air. Initial blood pressure 120/90. She does not look septic or toxic. She is in no distress. H EENT exam unremarkable. Pupils round reactive light. Extra motions are intact. No facial droop. Normal speech. Neck nontender no lymphadenopathy. Lungs clear to auscultation bilaterally. Heart regular rate rhythm rate about 70 no murmur. Chest wall ribs nontender. Abdomen soft nontender. No peritoneal signs. Moving all 4 extremities. 5 out of 5 party chief strength. Radial pulses are equal and symmetrical. Dorsi plantarflexion intact. No drift. Calves are nontender without edema or cords. Back nontender. She is awake and alert. No focal motor deficits. NIH 0. Answering questions and following commands. Const Vital Signs: 08/08/24 16:03 08/08/24 18:03 Temperature 96.4 F L Temperature Source Temporal Pulse Rate 74 Respiratory Rate 16 Blood Pressure 120/90 H 139/98 H Blood Pressure Mean 100 111 Pulse Ox 97 Oxygen Delivery Method Room Air Positive well nourished and well developed; Negative for cachectic, contractures or unkempt General Appearance ED: well developed and NAD; Negative for unkempt, cachectic, contractures, cyanotic, diaphoretic or pallor Nutritional Appearance: Negative for cachectic HEENT Reports moist mucous membranes Negative for trauma or tenderness Eyes PERRL and EOMs intact bilaterally General Eye ED: Negative for pale conjunctiva or scleral icterus Neck no lymphadenopathy, supple and no JVD General: Negative for tenderness Lymph Lymphatic: Negative for other Chest Wall inspection of chest normal and palpation of chest normal Chest: Negative for other Resp normal respiratory effort and clear to auscultation bilaterally Effort and Inspection: Negative for retractions Auscultation: Negative for rales, rhonchi, wheezes or diminished lung sounds Cardio regular rate, regular rhythm, S1 normal heart sound, S2 normal heart sound and no murmurs Palpation: Negative for palpable S3 or palpable S4 Rate: Negative for bradycardia or tachycardic Rhythm: Negative for abnormal rhythm GI normal to inspection, nondistended, normoactive bowel sounds and non-tender Inspection: Negative for abdominal distention Palpation: soft; Negative for tender, guarding or rebound tenderness present Back/Spine no CVA tenderness General Back: Negative for CVA tenderness Cervical Spine: Negative for cervical spine tenderness Thoracic Spine / Upper Back: Negative for thoracic spinal tenderness Lumbar Spine / Lower Back: Negative for lumbar spinal tenderness Extremity normal to inspection General Extremety ED: Negative for edema or tenderness General Extremity: Negative for edema Neuro oriented x3 Sensorium / Orientation: alert; Negative for orientation impaired, lethargic or stuporous Motor Exam: strength 5/5 throughout Psych mental status grossly normal Appearance: Negative for unkempt Attitude: No agitated Mood & Affect: Negative for depressed, anxious or tearful Skin no rashes or lesions noted and no wounds General Skin Exam: Negative for jaundice or pallor Lesions: No lesion noted Rashes: No rashes noted Trauma: Negative for abrasion Wounds: Negative for wounds noted MDM MDM MDM Narrative Medical decision making narrative: Middle-age female with both prior stroke history and [place] history on Brilinta. With lightheadedness. CAT scan of the brain and labs to be obtained. Exam is benign. Repeat exam at 6:46 PM patient doing well. Orthostatic vital signs are negative. CT and chest x-ray showed chronic changes nothing acute. Patient's repeat exam is unremarkable and unchanged. We discussed her test results. She will be discharged home with outpatient follow-up. History & Record Review Discussion w/independent historian: Patient Additional record(s) reviewed:: Prior inpatient record, Prior outpatient record, Prior ED visit and Prior labs Lab Data Attestation: I reviewed the patient's lab results. Lab results narrative: CBC send elevated white count of 15.7. H&H is 16 and 47. Platelets 230. Electrolytes show gap 9. BUN of 15 creatinine 1. Glucose 262. Liver enzymes unremarkable alk phos 139. Urinalysis shows thousand glucose. 250 occult blood. Negative nitrites. 5-10 red cells. 25-50 white cells. Contaminated with 5-10 epithelial cells and 1+ bacteria. Contaminated specimen. Labs: Laboratory Results - last 24 hr 08/08/24 08/08/24 17:17 17:21 WBC 15.7 H RBC 5.31 Hgb 16.2 H Hct 47.1 H MCV 88.7 MCH 30.5 MCHC 34.4 RDW Std Deviation 42.1 RDW Coeff of Nhung 12.9 Plt Count 230 MPV 12.1 H Immature Gran % (Auto) 0.600 Neut % (Auto) 70.1 H Lymph % (Auto) 20.0 [place] % (Auto) 6.4 Eos % (Auto) 2.2 Baso % (Auto) 0.7 Absolute Neuts (auto) 11.0 H Absolute Lymphs (auto) 3.14 Nucleated RBC % 0 Sodium 136 Potassium 3.5 Chloride 103 Carbon Dioxide 23.0 Anion Gap 9 BUN 15 Creatinine 1.07 H Est GFR (MDRD) Af Amer 69 Est GFR (MDRD) Non-Af 57 L BUN/Creatinine Ratio 14.0 Glucose 262 H Calcium 9.5 Total Bilirubin 0.90 AST 9 L ALT 22 Alkaline Phosphatase 139 H Total Protein 8.2 Albumin 3.9 Globulin 4.3 H Albumin/Globulin Ratio 0.9 Urine Color Yellow Urine Clarity Sl. Cloudy Urine pH 6.0 Ur Specific [place] 1.015 Urine Protein 30 H Urine Glucose (UA) 1000 H Urine Ketones Negative Urine Occult Blood 250 H Urine Nitrite Negative Urine Bilirubin Negative Urine Urobilinogen Normal Ur Leukocyte Esterase 100 H Urine RBC 5-10 SEEN Urine WBC 25-50 SEEN Ur Squamous Epith Cells 5-10 SEEN Urine Bacteria 1+ Urine Mucus 0 SEEN Radiography Chest X-Ray - ED: 2 View, Read by ED Physician, Lungs, Mediastinum, Bony Structures, No Acute Disease and Chronic Changes Diagnostic Testing: Clinical Impression(s) from Imaging Studies Brain CT 08/08/24 17:25 IMPRESSION: Remote bilateral occipital encephalomalacia. No acute disease. Electronically Signed: Heraclio Prince MD at 18:23 EST , Chest X-Ray 08/08/24 17:30 IMPRESSION: New electronic device right mid chest. Clinical correlation required. No acute disease otherwise. Electronically Signed: Heraclio Prince MD at 18:46 EST Reading Location ID and State: [facility] / [place] Tel , Service support , Chest x-ray, 2 views, AP and lateral, interpreted by myself shows no acute abnormality. Normal cardiac silhouette. Normal lung barriga with chronic changes. No infiltrate. No effusions. Rhythm Strip Rhythm Strip: Sinus Rhythm Rate: 69 Ectopy: None EKG Initial EKG: Attestation: I personally reviewed and interpreted this EKG as follows: Interpretation: Sinus Rhythm and No Acute Injury Pattern Comments: Normal sinus rhythm rate of 69 no acute signs of [place] nor ischemia nor dysrhythmia. Discharge Plan Triage Chief Complaint: Dizziness ED Provider: Cricket Fuentes Dx/Rx/DC Orders Clinical Impression: Light-headedness, History of multiple strokes, History of [place] (myocardial infarction), Chronic anticoagulation Instructions: ED Dizziness, Uncertain Cause Prescriptions: No Action Brilinta 90 mg tablet 90 mg PO BID losartan 50 mg tablet 50 mg PO DAILY carvedilol 6.25 mg tablet 6.25 mg PO BID ropinirole 0.5 mg tablet 0.5 mg PO TID sertraline 25 mg tablet 25 mg PO DAILY buspirone 7.5 mg tablet 7.5 mg PO BID aspirin 81 mg tablet,chewable 1 tab PO DAILY Jardiance 10 mg tablet 10 mg PO DAILY insulin glargine [Lantus Solostar U-100 Insulin] 100 unit/mL (3 mL) insulin pen 26 unit subcut QPM HumaLOG KwikPen Insulin pen injector See Rx Instructions subcut 3XD Protocol: 4. Sliding Scale Insulin High-Med Dosing Condition: 150-199 mg/dl = 2 units Condition: 200-259 mg/dl = 4 units Condition: 260-324 mg/dl = 6 units Condition: 325-374 mg/dl = 8 units Condition: 375-409 mg/dl = 10 units Condition: 410-449 mg/dl = 11 units Condition: Greater than 449 call physician Protocol Text: Suggested for: - Patients on Total Daily Insulin Dose of 56-80 units - Patient who are known to be insulin resistant or septic HIGH MEDIUM DOSING ALGORITHM Rx Instructions: SLIDING SCALE subcutaneously 3 times daily; SLIDING SCALE REFER TO SLIDING SCALE meclizine 12.5 mg Tablet 12.5 mg PO TID PRN PRN (Reason: Dizziness) Qty: 20 0RF atorvastatin 40 mg tablet 80 mg PO DAILY 30 Days Qty: 60 0RF amlodipine 5 mg tablet 5 mg PO BID Qty: 60 11RF Primary Care Provider: Care Physician,No Primary Referrals: Garrick Farrar MD [Med Staff - [facility]] - As soon as possible Care Physician,No Primary [Primary Care Provider] - Activity Restrictions/Additional Instructions: Plenty of fluids and rest. No specific findings today on your workup. Call and follow-up with local primary care physician or your primary care physician in [place]. Return if feeling worse. Print Language: Montenegrin Disposition Disposition: Home, Self Care
[2024-08-08 17:23] LABS: Absolute Lymphocyte Count 3.14 X10^3/uL (0.83-4.51); Basophil# 0.11 X10^3/uL; Basophil% 0.7 % (0-1); Eosinophil# 0.35 X10^3/uL; Eosinophils% 2.2 % (0-5); Hematocrit 47.1 % (37-47); Hemoglobin 16.2 g/dL (12.0-15.0); Lymphocyte # 3.14 X10^3/ul (0.83-4.51); Mean Corp Hgb Conc 34.4 g/dL (32-36); Mean Corpuscular Hgb 30.5 pg (27.0-32.0); Mean Corpuscular Volume 88.7 fL (81-99); Mean Platelet Vol. 12.1 fl (6.2-12.0); Monocyte% 6.4 % (0-10); NRBC Flagged by Analyzer 0 % (0-5); Neutrophil # 10.98 X10^3/uL (2.7-7.7); Neutrophil % 70.1 % (47-70); Platelet Count 230 K/mm3 (150-450); RBC Distribution Width CV 12.9 % (11.6-14.6); RBC Distribution Width SD 42.1 fl (35.1-43.9); Red Blood Count 5.31 M/mm3 (4.2-5.4); White Blood Count 15.7 K/mm3 (4.4-11.0)
--- NOTE | 2024-08-08 17:25 | CT_ITS ---
STUDY: CT BRAIN WITHOUT CONTRAST REASON FOR EXAM: Female, 53 years old. light headedness on thinner RADIATION DOSAGE (If Supplied By Facility): CTDIvol = ( 44.99 ) mGy, DLP = ( 846.73 ) mGycm TECHNIQUE: Transaxial CT imaging of the brain was performed without administration of intravenous contrast material. Individualized dose optimization techniques were used for this CT. The protocol utilizes one or more of the following dose reduction techniques: automated exposure control, adjustment of mA and/or kV according to patient size,and/or use of iterative reconstruction technique. COMPARISON: MR brain July 19, 2024. CT brain and CTA July 18, 2024. FINDINGS: Normal soft tissue structures. Normal calvarium. Normal size ventricles and extra-axial spaces for the patient''s age. Normal white matter tracts of the cerebral hemispheres. Normal basal ganglia and thalami. Normal brainstem. Normal cerebellum. Bilateral left greater than right occipital encephalomalacia unchanged. There is no intracranial hemorrhage. There are no findings of an acute ischemic infarction. Normal visualized paranasal sinuses. CT/Brain/Head without Contrast IMPRESSION: Remote bilateral occipital encephalomalacia. No acute disease. Electronically Signed: Heraclio Prince MD at 18:23 [facility] ,
[2024-08-08 17:26] LABS: Mucous, Urine 0 SEEN /hpf (<or=2+)
[2024-08-08 17:30] LABS: Color, Urine Yellow (Yellow); Glucose, Dipstick 1000 mg/dl (Normal); Ketone-Dipstick Negative (Negative); Leukocyte Esterase-Dipstick 100 /ul (Negative); Nitrite-Dipstick Negative (Negative); Occult Blood-Urine 250 /ul (Negative); Protein-Dipstick 30 mg/dl (Negative); Specific Gravity, Urine 1.015 (1.002-1.030); Urine Bilirubin Dipstick Negative (Negative); Urine Clarity Sl. Cloudy (Clear); Urine Urobilinogen Normal (Normal)
--- NOTE | 2024-08-08 17:30 | RAD_ITS ---
STUDY: X-RAY CHEST REASON FOR EXAM: Female, 53 years old. weakness TECHNIQUE: Single frontal view of the chest. COMPARISON: Chest x-ray July 18, 2024 FINDINGS: New electronic device projects over the right mediastinum. Loop recorder projects over the left chest. The lungs are clear and expanded. There is no demonstrated pleural abnormality. Normal size heart. Normal mediastinum and haylie. Normal visualized pulmonary arteries. Normal visualized aortic arch and descending thoracic aorta. Normal visualized thoracic spine. Normal visualized ribs, clavicles, and shoulders. There is no demonstrated abnormality of the visualized soft tissue structures of the upper abdomen. RAD/Chest PA and Lateral IMPRESSION: New electronic device right mid chest. Clinical correlation required. No acute disease otherwise. Electronically Signed: Heraclio Prince MD at 18:46 EST ,
[2024-08-08 17:40] LABS: ALB/GLOB Ratio 0.9 RATIO (0.9-2.4); AST(SGOT) 9 U/L (15-37); Alanine Aminotransfer ALT/SGPT 22 U/L (13-56); Albumin, Serum 3.9 g/dL (3.2-5.0); Alkaline Phosphatase 139 U/L (45-117); Anion Gap 9 (5-15); BUN 15 mg/dL (7-18); Calcium,Total 9.5 mg/dL (8.5-10.1); Chloride 103 mmol/L (98-107); Creatinine, Serum 1.07 mg/dL (0.55-1.02); EST Glomerular Filtration Rate 57 mL/min (>60); Est Glom Filt Rate - Afr Amer 69 mL/min (>60); Globulin 4.3 g/dL (2.2-4.2); Glucose 262 mg/dL (74-106); Potassium 3.5 mmol/L (3.5-5.1); Protein, Total 8.2 g/dL (6.4-8.2); Sodium Level 136 mmol/L (136-145)
[2024-08-08 17:40] LABS: Bacteria 1+ /hpf (None Seen); Squamous Epithelial Cells - UA 5-10 SEEN /hpf (5-10)
[2024-08-08 17:41] LABS: White Blood Cells 25-50 SEEN /hpf (0-5)
[2024-08-08 17:43] LABS: Red Blood Cells-Urine 5-10 SEEN /hpf (0-5)
[2024-08-08 18:03] VITALS: BP 139/98
[2024-08-08 18:58] VITALS: BP 139/98; PULSE 68; RESP 18; TEMP 36.6; O2SAT 99
== END 2024-08-08 19:28 | disposition home or self-care (01) ==
PROVIDERS: Emergency Provider Emergency Medicine; Referring Provider Emergency Medicine; Visit Provider Emergency Medicine
DX: R42 Dizziness and giddiness (principal); E11.9 Type 2 diabetes mellitus without complications; Z79.4 Long term (current) use of insulin; R11.0 Nausea; I10 Essential (primary) hypertension; E78.5 Hyperlipidemia, unspecified; F17.210 Nicotine dependence, cigarettes, uncomplicated; Z79.82 Long term (current) use of aspirin; Z79.84 Long term (current) use of oral hypoglycemic drugs; Z79.02 Long term (current) use of antithrombotics/antiplatelets; Z79.899 Other long term (current) drug therapy; Z86.73 Personal history of transient ischemic attack (TIA), and cerebral infarction without residual deficits; I25.2 Old myocardial infarction; Z95.5 Presence of coronary angioplasty implant and graft
CPT/HCPCS: 70450; 71046; 80053; 81001; 85025; 93005; 99285; A4216

== ENCOUNTER 2024-11-02 01:28 | Emergency (ER) | payer MEDICARE, MEDICAID, SELFPAY ==
[2024-11-02] VITALS (9 sets, daily range): BP systolic 128–211; BP diastolic 75–106; PULSE 71–105; RESP 18–30; TEMP 36.8–37.2; O2SAT 93–98; BMI 41.2
[2024-11-02] MEDS: Albuterol 2.5 MG/3 ML VIAL.NEB. INHALATION (01:56)
[2024-11-02] MEDS: Ipratropium/Albuterol Sulfate 3 ML AMPUL.NEB INHALATION (01:56)
[2024-11-02 01:58] LABS: Absolute Lymphocyte Count 1.92 X10^3/uL (0.83-4.51); Basophil# 0.12 X10^3/uL; Basophil% 1.7 % (0-1); Eosinophil# 0.16 X10^3/uL; Eosinophils% 2.2 % (0-5); Hematocrit 49.8 % (37-47); Hemoglobin 15.8 g/dL (12.0-15.0); Lymphocyte # 1.92 X10^3/ul (0.83-4.51); Lymphocyte % 26.9 % (19-41); Mean Corp Hgb Conc 31.7 g/dL (32-36); Mean Corpuscular Hgb 29.6 pg (27.0-32.0); Mean Corpuscular Volume 93.3 fL (81-99); Mean Platelet Vol. 12.1 fl (6.2-12.0); Monocyte# 0.95 X10^3/uL; Monocyte% 13.3 % (0-10); NRBC Flagged by Analyzer 0 % (0-5); Neutrophil # 3.97 X10^3/uL (2.7-7.7); Neutrophil % 55.6 % (47-70); Platelet Count 154 K/mm3 (150-450); RBC Distribution Width CV 12.8 % (11.6-14.6); RBC Distribution Width SD 43.5 fl (35.1-43.9); Red Blood Count 5.34 M/mm3 (4.2-5.4); White Blood Count 7.1 K/mm3 (4.4-11.0)
[2024-11-02] MEDS: cloNIDine HCl 0.1 MG Tablet PO (02:07)
--- NOTE | 2024-11-02 02:20 | RAD_ITS ---
PROCEDURE: PA and lateral chest radiographs, two views REASON FOR EXAM: Cough TECHNIQUE: PA and lateral chest radiographs were obtained. COMPARISON: 08/08/2024 FINDINGS: The cardiomediastinal silhouette is stable. Similar elevation right hemidiaphragm. Bones are osteopenic with degenerative changes in the spine. No pneumothorax, focal airspace consolidation, or pleural effusion. A left loop recorder remains in place. RAD/Chest PA and Lateral IMPRESSION: No acute cardiopulmonary process or significant change. If there are persisten t symptoms or clinical concern, short-term follow-up chest CT evaluation may be considered. Reading Location: [facility]
[2024-11-02 02:31] LABS: AST(SGOT) 19 U/L (15-37); Alanine Aminotransfer ALT/SGPT 34 U/L (13-56); Albumin, Serum 3.3 g/dL (3.2-5.0); Alkaline Phosphatase 138 U/L (45-117); Anion Gap 9 (5-15); BUN 16 mg/dL (7-18); BUN/Creat Ratio 12.8 RATIO (10-20); Bilirubin, Direct 0.12 mg/dL (0.00-0.30); Chloride 100 mmol/L (98-107); Creatinine, Serum 1.25 mg/dL (0.55-1.02); EST Glomerular Filtration Rate 48 mL/min (>60); Est Glom Filt Rate - Afr Amer 58 mL/min (>60); Estimated Creatinine Clearance 60.54 ml/min; Globulin 4.5 g/dL (2.2-4.2); Glucose 487 mg/dL (74-106); Magnesium 2.1 mg/dL (1.6-2.6); Potassium 4.2 mmol/L (3.5-5.1); Protein, Total 7.8 g/dL (6.4-8.2); Sodium Level 132 mmol/L (136-145)
[2024-11-02] MEDS: 0.9% Normal Saline (1000mL) 1,000 ML 999 ML IV (02:37)
--- NOTE | 2024-11-02 03:05 | EX.ED.DYSGE1 ---
HPI History of Present Illness Chief Complaint: Shortness of Breath Informant: patient and EMS Narrative Narrative: Patient is 54-year-old female with past medical history of insulin-dependent diabetes hypertension hyperlipidemia and CAD. She also reports a past medical history of smoking but denies any previous diagnosis of COPD or emphysema. She states her boyfriend and roommate have been sick with congestion and cough and she has had similar symptoms for the past 2 to 3 days. She states she feels like symptoms are worsening and secondary to this EMS was called to bring her in for evaluation. Patient also reports that she has been out of her daily medications for approximately 2 months and states she has not been able to follow-up with her doctor to get a refill [facility] Medical History Tobacco abuse Hyperlipidemia History of non-ST elevation myocardial infarction (NSTEMI) Obesity (BMI 30-39.9) Visual disturbance Psoriasis HTN (hypertension) Diabetes Home Medications ?Medication ?Instructions ?Recorded ?Last Taken ?Type HumaLOG KwikPen Insulin See Rx Instructions subcut 3XD 07/18/24 Unknown History Held on 11/02/24. DIABETES Instructions: pt hasn't taken med in 2 months, needs refill aspirin 81 mg chewable tablet 1 tab PO DAILY heart health 07/18/24 Unknown History Held on 11/02/24. Instructions: pt hasn't taken med in 2 months, needs refill buspirone 7.5 mg tablet 7.5 mg PO BID mental health 07/18/24 Unknown History Held on 11/02/24. Instructions: pt hasn't taken med in 2 months, needs refill carvedilol 6.25 mg tablet 6.25 mg PO BID blood pressure 07/18/24 Unknown History Held on 11/02/24. Instructions: pt hasn't taken med in 2 months, needs refill empagliflozin 10 mg tablet 10 mg PO DAILY diabetes 07/18/24 Unknown History (Jardiance) Held on 11/02/24. Instructions: pt hasn't taken med in 2 months, needs refill insulin glargine 100 unit/mL (3 26 unit subcut QPM diabetes 07/18/24 Unknown History mL) subcutaneous pen (Lantus Solostar U-100 Insulin) Held on 11/02/24. Instructions: pt hasn't taken med in 2 months, needs refill losartan 50 mg tablet 50 mg PO DAILY blood pressure 07/18/24 Unknown History ropinirole 0.5 mg tablet 0.5 mg PO TID restless leg 07/18/24 Unknown History Held on 11/02/24. Instructions: pt hasn't taken med in 2 months, needs refill sertraline 25 mg tablet 25 mg PO DAILY mental health 07/18/24 Unknown History Held on 11/02/24. Instructions: pt hasn't taken med in 2 months, needs refill ticagrelor 90 mg tablet (Brilinta) 90 mg PO BID anti platelet 07/18/24 Unknown History Held on 11/02/24. Instructions: pt hasn't taken med in 2 months, needs refill atorvastatin 40 mg tablet 80 mg (2 x 40 mg) PO DAILY 30 days 07/20/24 Unknown Rx Held on 11/02/24. #60 tabs Instructions: pt hasn't taken med in 2 months, needs refill meclizine 12.5 mg tablet 12.5 mg PO TID PRN PRN Dizziness 07/20/24 Unknown Rx Held on 11/02/24. #20 tabs Instructions: pt hasn't taken med in 2 months, needs refill amlodipine 5 mg tablet 5 mg PO BID #60 tabs 07/25/24 Unknown Rx Held on 11/02/24. Instructions: pt hasn't taken med in 2 months, needs refill Allergy/AdvReac Type Severity Reaction Status Date / Time No Known Allergies Allergy Verified 08/08/24 16:08 Surgical History History of nasal surgery Hx of lymph node biopsy Hx of cholecystectomy Social History Smoking Status: Current every day smoker tobacco type: cigarettes ROS ROS ED Constitutional Constitutional ED: Denies chills or fever(s) Eyes Eyes: Denies change in vision ENT ENT ED: Reports rhinorrhea and sore throat Cardiovascular Cardiovascular: Denies chest pain Respiratory/Chest Respiratory/Chest: Reports cough and dyspnea Gastrointestinal Gastrointestinal: Denies abdominal pain, diarrhea, nausea or vomiting Genitourinary Genitourinary ED: Denies dysuria Musculoskeletal Musculoskeletal: Reports myalgias Integumentary Denies rash Neurologic Neurologic: Denies headache(s) Hematologic/Lymphatic Hematologic/Lymphatic: Denies easy bleeding or easy bruising Allergic/Immunologic Allergic/Immunologic ED: Denies mouth swelling or tongue swelling EXAM Physical Exam Const Vital Signs: 11/02/24 01:30 11/02/24 01:33 11/02/24 01:59 Temperature 98.3 F 98.3 F Temperature Source Oral Oral Pulse Rate 102 H 105 H 100 Respiratory Rate 20 H 30 H 20 H Respiratory Effort Respiratory Depth Respiratory Pattern Normal Blood Pressure 211/106 H 211/106 H Blood Pressure Mean 141 141 Pulse Ox 95 96 Oxygen Delivery Method Room Air Room Air 11/02/24 01:59 11/02/24 02:08 11/02/24 02:08 Temperature Temperature Source Pulse Rate Respiratory Rate Respiratory Effort Short of Breath Labored Short of Breath Labored Respiratory Depth Shallow Respiratory Pattern Tachypnea Tachypnea Blood Pressure Blood Pressure Mean Pulse Ox 97 Oxygen Delivery Method Room Air Room Air 11/02/24 02:30 11/02/24 03:00 11/02/24 04:00 Temperature 98.9 F 98.9 F 98.5 F Temperature Source Oral Oral Oral Pulse Rate 83 79 71 Respiratory Rate 22 H 18 18 Respiratory Effort Respiratory Depth Respiratory Pattern Blood Pressure 152/101 H 152/75 H 137/76 H Blood Pressure Mean 118 100 96 Pulse Ox 94 98 93 Oxygen Delivery Method Room Air Room Air Room Air 11/02/24 04:14 Temperature 98.5 F Temperature Source Pulse Rate 81 Respiratory Rate 18 Respiratory Effort Respiratory Depth Respiratory Pattern Blood Pressure 137/76 H Blood Pressure Mean 96 Pulse Ox 95 Oxygen Delivery Method Positive well nourished, well developed and obese General Appearance ED: well developed; Negative for pallor Nutritional Appearance: obese HEENT HEENT Narrative: Nasal mucosa is hyperemic and boggy with enlarged inferior nasal turbinates Cobblestoning is noted in the posterior pharynx consistent with sinus drainage without airway edema or compromise; no secondary findings to suggest infection Eyes PERRL and EOMs intact bilaterally Neck supple and no JVD Chest Wall palpation of chest normal Resp Resp Narrative: Breath sounds are diminished throughout with diffuse inspiratory and expiratory wheeze There is mild tachypnea noted without nasal flaring retractions or accessory muscle use Cardio regular rate and regular rhythm Rate: other Other Details: Radial and carotid pulses are equal and symmetric No carotid bruit noted GI normal to inspection, nondistended, normoactive bowel sounds, non-tender, non-distended and no masses GI Narrative: No pulsatile mass or fluid wave Auscultation: normoactive bowel sounds Palpation: soft Extremity normal to inspection Extremity Narrative: No asymmetric edema no pitting edema negative Homans' sign bilaterally Neuro oriented x3, CN's II-XII intact bilaterally and no sensory deficits noted Neuro Narrative: GCS of 15 Cranial nerves II through XII are grossly intact no focal neurologic deficit No pronator drift no dysmetria no truncal ataxia NIH stroke scale score of 0 Sensorium / Orientation: alert Motor Exam: strength 5/5 throughout Psych mental status grossly normal Skin no rashes or lesions noted General Skin Exam: Negative for jaundice or pallor MDM MDM MDM Narrative Medical decision making narrative: Patient arrived to the ER hypertensive but otherwise with stable vitals and in no acute respiratory distress. She reported she has not been taking any of her home medication for approximately 2 months because she ran out of medication and could not get them refilled. Therefore the fact that she is hypertensive is to be expected. In order to ensure that the last few months of persistent hypertension has not led to acute kidney injury basic blood work will be obtained. Also because she has not been taking her insulin there is concern that she may be progressing to DKA or HHS. Her serum bicarb is normal her anion gap is normal and this goes against DKA and her serum osmolality is 296 going against HHS. Her main reason for coming in is persistent cough and congestion and with known sick contacts there is concern for COVID versus influenza versus RSV versus potential pneumonia and as she does have a history of congestive heart failure there is still potential for volume overload. Chest x-ray revealed no acute lung pathology such as pneumonia pneumothorax or pleural effusion. RSV swab was positive correlates with her symptoms and known sick contact. At this time she does not have findings of endorgan damage for hypertension and after treatment her blood pressure has improved. She was given 1 L of normal saline secondary to her hyperglycemia and after this blood sugar was rechecked and was still elevated so she was treated with insulin. At this time however she is not in acute kidney injury or showing signs of endorgan damage she is not persistently hypertensive despite treatment and she is not hypoxic or requiring supplemental oxygen and therefore there is no need for admission and she will be discharged home with symptomatic care History & Record Review Discussion w/independent historian: EMS personnel and Patient Lab Data Attestation: I reviewed the patient's lab results. Labs: Laboratory Results - last 24 hr 11/02/24 01:40 WBC 7.1 RBC 5.34 Hgb 15.8 H Hct 49.8 H MCV 93.3 MCH 29.6 MCHC 31.7 L RDW Std Deviation 43.5 RDW Coeff of Nhung 12.8 Plt Count 154 MPV 12.1 H Immature Gran % (Auto) 0.300 Neut % (Auto) 55.6 Lymph % (Auto) 26.9 [place] % (Auto) 13.3 H Eos % (Auto) 2.2 Baso % (Auto) 1.7 H Absolute Neuts (auto) 4.0 Absolute Lymphs (auto) 1.92 Nucleated RBC % 0 Sodium 132 L Potassium 4.2 Chloride 100 Carbon Dioxide 23.0 Anion Gap 9 BUN 16 Creatinine 1.25 H Estim Creat Clear Calc 60.54 Est GFR (MDRD) Af Amer 58 L Est GFR (MDRD) Non-Af 48 L BUN/Creatinine Ratio 12.8 Glucose 487 H* Calcium 9.0 Magnesium 2.1 Total Bilirubin 0.30 Direct Bilirubin 0.12 AST 19 ALT 34 Alkaline Phosphatase 138 H Total Protein 7.8 Albumin 3.3 Globulin 4.5 H Radiography Diagnostic Testing: Clinical Impression(s) from Imaging Studies Chest X-Ray 11/02/24 02:20 IMPRESSION: No acute cardiopulmonary process or significant change. If there are persistent symptoms or clinical concern, short-term follow-up chest CT evaluation may be considered. Reading Location: [facility] Chest x-ray as interpreted by the emergency medicine physician reveals no acute infiltrate pneumothorax pleural effusion or widening mediastinum Discharge Plan Triage Chief Complaint: Shortness of Breath ED Provider: Maximo Wayne Dx/Rx/DC Orders Clinical Impression: RSV bronchitis, Hypertension, Insulin dependent diabetes mellitus, Hyperglycemia Instructions: RSV (Respiratory Syncytial Virus) Prescriptions: No Action Brilinta 90 mg tablet 90 mg PO BID losartan 50 mg tablet 50 mg PO DAILY carvedilol 6.25 mg tablet 6.25 mg PO BID ropinirole 0.5 mg tablet 0.5 mg PO TID sertraline 25 mg tablet 25 mg PO DAILY buspirone 7.5 mg tablet 7.5 mg PO BID aspirin 81 mg tablet,chewable 1 tab PO DAILY Jardiance 10 mg tablet 10 mg PO DAILY insulin glargine [Lantus Solostar U-100 Insulin] 100 unit/mL (3 mL) insulin pen 26 unit subcut QPM HumaLOG KwikPen Insulin pen injector See Rx Instructions subcut 3XD Protocol: 4. Sliding Scale Insulin High-Med Dosing Condition: 150-199 mg/dl = 2 units Condition: 200-259 mg/dl = 4 units Condition: 260-324 mg/dl = 6 units Condition: 325-374 mg/dl = 8 units Condition: 375-409 mg/dl = 10 units Condition: 410-449 mg/dl = 11 units Condition: Greater than 449 call physician Protocol Text: Suggested for: - Patients on Total Daily Insulin Dose of 56-80 units - Patient who are known to be insulin resistant or septic HIGH MEDIUM DOSING ALGORITHM Rx Instructions: SLIDING SCALE subcutaneously 3 times daily; SLIDING SCALE REFER TO SLIDING SCALE meclizine 12.5 mg Tablet 12.5 mg PO TID PRN PRN (Reason: Dizziness) Qty: 20 0RF atorvastatin 40 mg tablet 80 mg PO DAILY 30 Days Qty: 60 0RF amlodipine 5 mg tablet 5 mg PO BID Qty: 60 11RF Primary Care Provider: Luz Mera Referrals: Luz Mera, EDUCATION ADMINISTRATOR-C [Primary Care Provider] - Activity Restrictions/Additional Instructions: Please use the inhaler provided to help with lung inflammation/bronchospasm caused by your RSV infection. Please follow-up with your family doctor soon as possible as you need to have your medications refilled in order to control your blood pressure and blood sugar. Return to the ER should you have any further concerns Print Language: Filipino Disposition Disposition: Home, Self Care
[2024-11-02] MEDS: guaiFENesin/Codeine 5 ML UDC 10 ML PO (03:06)
[2024-11-02] MEDS: Insulin Lispro 100 UNIT/ML INSULN.PEN 10 UNIT SC (04:29)
[2024-11-02] MEDS: Albuterol Sulfate 8 gm Inhaler (60 puffs) 2 PUFF INHALATION (04:29)
[2024-11-02 04:32] LABS: Bedside Glucose 404 mg/dL (74-106)
== END 2024-11-02 06:34 | disposition home or self-care (01) ==
PROVIDERS: Emergency Provider Emergency Medicine; PCP Nurse Practitioner Family; Visit Provider Emergency Medicine
DX: J20.5 Acute bronchitis due to respiratory syncytial virus (principal); E11.65 Type 2 diabetes mellitus with hyperglycemia; Z79.4 Long term (current) use of insulin; I25.10 Atherosclerotic heart disease of native coronary artery without angina pectoris; I10 Essential (primary) hypertension; E78.5 Hyperlipidemia, unspecified; Z11.52 Encounter for screening for COVID-19; F17.210 Nicotine dependence, cigarettes, uncomplicated; I25.2 Old myocardial infarction; Z79.02 Long term (current) use of antithrombotics/antiplatelets; Z79.82 Long term (current) use of aspirin; Z79.84 Long term (current) use of oral hypoglycemic drugs; Z79.899 Other long term (current) drug therapy
CPT/HCPCS: 71046; 80048; 80076; 82962; 83735; 85025; 87631; 94640; 96361; 96374; 99285; A4216

== ENCOUNTER 2025-07-09 09:00 | Emergency (ER) | payer MEDICARE, MEDICAID, SELFPAY ==
[2025-07-09 09:02] VITALS: BP 169/93; PULSE 73; RESP 15; TEMP 37.2; O2SAT 98; BMI 35.3
[2025-07-09] MEDS: 0.9% Normal Saline (1000mL) 1,000 ML 1000 ML IV (09:23)
[2025-07-09 09:24] LABS: Hematocrit 46.5 % (37-47); Hemoglobin 15.4 g/dL (12.0-15.0); Immature Granulocytes Count 0.070 X10^3/uL (0.0-0.0); Mean Corp Hgb Conc 33.1 g/dL (32-36); Mean Corpuscular Volume 89.8 fL (81-99); Mean Platelet Vol. 12.3 fl (6.2-12.0); NRBC Flagged by Analyzer 0 % (0-5); POSITIVE COUNT YES; RBC Distribution Width CV 12.6 % (11.6-14.6); RBC Distribution Width SD 41.1 fl (35.1-43.9); Red Blood Count 5.18 M/mm3 (4.2-5.4); White Blood Count 14.7 K/mm3 (4.4-11.0)
[2025-07-09] MEDS: DiphenhydrAMINE 50 MG/ML Syringe 25 MG IV (09:24)
[2025-07-09 09:28] VITALS: BP 150/86; PULSE 68; RESP 14
--- NOTE | 2025-07-09 09:40 | EX.ED.DYSGE1 ---
HPI History of Present Illness Chief Complaint: Headache Narrative Narrative: Chief complaint and HPI: 54-year-old male with past medical history of DM2, HTN, HLD, CAD, CVA presents for evaluation of headache. Patient states for the past several days she has been having a progressively worsening headache. States she has been sleeping little secondary to the pain. Associated symptom is light sensitivity although she is legally blind. She denies any history of migraines. Denies any fever, chills, URI symptoms, shortness of breath, chest pain, numbness/tingling, weakness, focal deficits, abdominal pain. Associated symptom is mild nausea. Patient states headache is already improving from when she called EMS. She states the headache waxes and wanes. Review of systems: See HPI Medications: As listed on the chart Allergies: As listed on the chart PFSH: Per chart Vital signs: As listed on the chart. Reviewed. Physical exam: Gen: A&O x3, NAD Eyes: No sclera icterus, conjunctiva clear, PERRL, EOMI ENT: TMs clear BL, moist mucous membranes, posterior oropharynx unremarkable, uvula midline, no temporal tenderness, no facial asymmetry Neck: Trachea midline, Full ROM CV: RRR, no murmurs, no peripheral edema Resp: Lungs CTA BL, no w/r/c GI: Abd soft, non-distended, non-tender, no r/r/g Musc: Full ROM, no deformity, strength +5/5 in all extremities, no pronator drift, no ataxia, lidocaine patches on bilateral calves Skin: Warm, dry, intact Neuro: Alert, oriented, grossly intact, sensation intact, no focal deficits Psych: Cooperative, appropriate mood and affect [facility] Medical History Tobacco abuse Hyperlipidemia History of non-ST elevation myocardial infarction (NSTEMI) Obesity (BMI 30-39.9) Visual disturbance Psoriasis HTN (hypertension) Diabetes Home Medications ?Medication ?Instructions ?Recorded ?Last Taken ?Type HumaLOG KwikPen Insulin See Rx Instructions subcut 3XD 07/18/24 Unknown History Held on 11/02/24. DIABETES Instructions: pt hasn't taken med in 2 months, needs refill aspirin 81 mg chewable tablet 1 tab PO DAILY heart health 07/18/24 Unknown History Held on 11/02/24. Instructions: pt hasn't taken med in 2 months, needs refill buspirone 7.5 mg tablet 7.5 mg PO BID mental health 07/18/24 Unknown History Held on 11/02/24. Instructions: pt hasn't taken med in 2 months, needs refill carvedilol 6.25 mg tablet 6.25 mg PO BID blood pressure 07/18/24 Unknown History Held on 11/02/24. Instructions: pt hasn't taken med in 2 months, needs refill empagliflozin 10 mg tablet 10 mg PO DAILY diabetes 07/18/24 Unknown History (Jardiance) Held on 11/02/24. Instructions: pt hasn't taken med in 2 months, needs refill insulin glargine 100 unit/mL (3 26 unit subcut QPM diabetes 07/18/24 Unknown History mL) subcutaneous pen (Lantus Solostar U-100 Insulin) Held on 11/02/24. Instructions: pt hasn't taken med in 2 months, needs refill losartan 50 mg tablet 50 mg PO DAILY blood pressure 07/18/24 Unknown History ropinirole 0.5 mg tablet 0.5 mg PO TID restless leg 07/18/24 Unknown History Held on 11/02/24. Instructions: pt hasn't taken med in 2 months, needs refill sertraline 25 mg tablet 25 mg PO DAILY mental health 07/18/24 Unknown History Held on 11/02/24. Instructions: pt hasn't taken med in 2 months, needs refill ticagrelor 90 mg tablet (Brilinta) 90 mg PO BID anti platelet 07/18/24 Unknown History Held on 11/02/24. Instructions: pt hasn't taken med in 2 months, needs refill atorvastatin 40 mg tablet 80 mg (2 x 40 mg) PO DAILY 30 days 07/20/24 Unknown Rx Held on 11/02/24. #60 tabs Instructions: pt hasn't taken med in 2 months, needs refill meclizine 12.5 mg tablet 12.5 mg PO TID PRN PRN Dizziness 07/20/24 Unknown Rx Held on 11/02/24. #20 tabs Instructions: pt hasn't taken med in 2 months, needs refill amlodipine 5 mg tablet 5 mg PO BID #60 tabs 07/25/24 Unknown Rx Held on 11/02/24. Instructions: pt hasn't taken med in 2 months, needs refill Allergy/AdvReac Type Severity Reaction Status Date / Time No Known Allergies Allergy Verified 07/09/25 09:02 Surgical History History of nasal surgery Hx of lymph node biopsy Hx of cholecystectomy Social History Smoking Status: Current every day smoker tobacco type: cigarettes EXAM Physical Exam Const Vital Signs: 07/09/25 09:02 07/09/25 09:28 07/09/25 11:01 Temperature 98.9 F Temperature Source Oral Pulse Rate 73 68 64 Respiratory Rate 15 14 18 Blood Pressure 169/93 H 150/86 H 141/76 H Blood Pressure Mean 118 107 97 Pulse Ox 98 97 Oxygen Delivery Method Room Air Room Air MDM MDM MDM Narrative Medical decision making narrative: 54-year-old male with past medical history of DM2, HTN, HLD, CAD, CVA presents for evaluation of headache. Patient states for the past several days she has been having a progressively worsening headache. States she has been sleeping little secondary to the pain. Associated symptom is light sensitivity although she is legally blind as well as nausea. Denies any fever, chills, URI symptoms, shortness of breath, chest pain, numbness/tingling, weakness, focal deficits, abdominal pain. Differential diagnosis includes but is not limited to tension headache, migraine headache, electrolyte abnormality, suspect less likely intracranial abnormality. NS bolus, Reglan, Benadryl, Tylenol ordered for symptoms. CT head ordered with basic labs. CBC shows leukocytosis of 14.7 and hemoconcentration of 15.4.. On chart review patient has a history of both on previous labs. BMP unremarkable except for hyperglycemia. Patient is a diabetic. CT of the brain shows bilateral occipital encephalomalacia. Consider sinusitis. Patient denying any URI symptoms. She has no sinus tenderness on exam. Does not correspond with sinusitis. UA negative for UTI. Positive for glucose. Patient is a diabetic. On reevaluation, patient's headache has resolved. Patient stable to discharge home. Follow-up with primary care physician. Return precautions explained. She confirmed understanding of the plan. Tylenol Motrin as needed. Impression: 1. Headache 2. Hyperglycemia and known diabetic Lab Data Labs: Laboratory Results - last 24 hr 07/09/25 07/09/25 08:50 11:04 WBC 14.7 H RBC 5.18 Hgb 15.4 H Hct 46.5 MCV 89.8 MCH 29.7 MCHC 33.1 RDW Std Deviation 41.1 RDW Coeff of Nhung 12.6 Plt Count TNP MPV 12.3 H Immature Gran % (Auto) 0.500 Neut % (Auto) 64.2 Lymph % (Auto) 25.7 [place] % (Auto) 6.8 Eos % (Auto) 2.1 Baso % (Auto) 0.7 Absolute Neuts (auto) 9.4 H Absolute Lymphs (auto) 3.77 Nucleated RBC % 0 Platelet Estimate ADEQUATE Sodium 135 Potassium 4.1 Chloride 99 Carbon Dioxide 24.1 Anion Gap 12 BUN 13 Creatinine 1.09 Estim Creat Clear Calc 63.70 Est GFR (MDRD) Non-Af 61 BUN/Creatinine Ratio 11.9 Glucose 325 H Calcium 9.4 Urine Color Yellow Urine Clarity Clear Urine pH 6.0 Ur Specific [place] 1.010 Urine Protein Negative Urine Glucose (UA) 1000 H Urine Ketones Negative Urine Occult Blood Negative Urine Nitrite Negative Urine Bilirubin Negative Urine Urobilinogen Normal Ur Leukocyte Esterase 25 H Urine RBC 0-5 SEEN Urine WBC 0-5 SEEN Ur Squamous Epith Cells 5-10 SEEN Urine Bacteria 1+ Urine Mucus 0 SEEN Radiography Diagnostic Testing: Clinical Impression(s) from Imaging Studies Brain CT 07/09/25 09:42 IMPRESSION: 1. Bilateral occipital encephalomalacia. 2. Paranasal sinus disease as above. Consider sinusitis. This may be the source of the patient's headache. Reading Location: [id number] Discharge Plan Triage Chief Complaint: Headache ED Provider: Peter Thompson Dx/Rx/DC Orders Clinical Impression: Headache Instructions: ED Headache Unspecified Prescriptions: No Action Brilinta 90 mg tablet 90 mg PO BID losartan 50 mg tablet 50 mg PO DAILY carvedilol 6.25 mg tablet 6.25 mg PO BID ropinirole 0.5 mg tablet 0.5 mg PO TID sertraline 25 mg tablet 25 mg PO DAILY buspirone 7.5 mg tablet 7.5 mg PO BID aspirin 81 mg tablet,chewable 1 tab PO DAILY Jardiance 10 mg tablet 10 mg PO DAILY insulin glargine [Lantus Solostar U-100 Insulin] 100 unit/mL (3 mL) insulin pen 26 unit subcut QPM HumaLOG KwikPen Insulin pen injector See Rx Instructions subcut 3XD Protocol: 4. Sliding Scale Insulin High-Med Dosing Condition: 150-199 mg/dl = 2 units Condition: 200-259 mg/dl = 4 units Condition: 260-324 mg/dl = 6 units Condition: 325-374 mg/dl = 8 units Condition: 375-409 mg/dl = 10 units Condition: 410-449 mg/dl = 11 units Condition: Greater than 449 call physician Protocol Text: Suggested for: - Patients on Total Daily Insulin Dose of 56-80 units - Patient who are known to be insulin resistant or septic HIGH MEDIUM DOSING ALGORITHM Rx Instructions: SLIDING SCALE subcutaneously 3 times daily; SLIDING SCALE REFER TO SLIDING SCALE meclizine 12.5 mg Tablet 12.5 mg PO TID PRN PRN (Reason: Dizziness) Qty: 20 0RF atorvastatin 40 mg tablet 80 mg PO DAILY 30 Days Qty: 60 0RF amlodipine 5 mg tablet 5 mg PO BID Qty: 60 11RF Primary Care Provider: Luz Mera Referrals: Luz Mera, COMMUNITY MANAGER-C [Primary Care Provider, Family Practice] - 3-5 Days Activity Restrictions/Additional Instructions: Follow-up with primary care physician. Monitor sugar at home. Return back to ED symptoms change or worsen. Print Language: Bangladeshi Disposition Disposition: Home, Self Care
--- NOTE | 2025-07-09 09:42 | CT_ITS ---
PROCEDURE: BRAIN/HEAD WITHOUT CONTRAST 07/09/2025 REASON FOR EXAM: Headache TECHNIQUE: Procedure Code: CTBR Modality: CT Procedure: BRAIN/HEAD WITHOUT CONTRAST Coronal and Sagittal reconstruction series were provided. One or more dose reduction techniques were used (e.g., Automated exposure control, adjustment of the mA and/or kV according to patient size, use of iterative reconstruction technique. RADIATION DOSE SUMMARY: CTDlvol: 45 mGy DLP: 846 mGycm COMPARISON: None FINDINGS: Brain: There is no evidence of hemorrhage, acute ischemia or mass. No extra- axial fluid collection, midline shift or mass effect. Encephalomalacia is seen occipital lobes bilaterally. Mild low-density in the periventricular white matter. Subtle patchy hypodensity in the deep white matter. CSF Spaces: Mild generalized cerebral atrophy Sinuses/Mastoids: Subtotal opacification right maxillary sinus with air-fluid level. Mucosal thickening left maxillary sinus; some of the contents are hyperdense suggesting inspissated mucus or fungal infection. Subtotal opacification right frontal sinus. Opacification right mid and anterior ethmoid air cells in the anterior left ethmoid air cells. Mucosal thickening right laterally in the right sphenoid sinus. Mastoid sinuses are clear. Bones: No fracture CT/Brain/Head without Contrast IMPRESSION: 1. Bilateral occipital encephalomalacia. 2. Paranasal sinus disease as above. Consider sinusitis. This may be the maggie rce of the patient's headache. Reading Location: [id number]
[2025-07-09 09:45] LABS: Differential Indicated SCAN CRITERIA MET
[2025-07-09 09:54] LABS: Anion Gap 12 (5-15); BUN 13 mg/dL (4-19); BUN/Creat Ratio 11.9 RATIO (10-20); Calcium,Total 9.4 mg/dL (7.6-11.0); Carbon Dioxide 24.1 mmol/L (21.0-32.0); Chloride 99 mmol/L (98-108); Estimated Creatinine Clearance 63.70 ml/min (50-250); Glucose 325 mg/dL (70-99); Potassium 4.1 mmol/L (3.3-5.1)
[2025-07-09 11:01] VITALS: BP 141/76; PULSE 64; RESP 18; O2SAT 97
[2025-07-09 11:15] LABS: Mucous, Urine 0 SEEN /hpf (<or=2+)
[2025-07-09 11:24] LABS: Color, Urine Yellow (Yellow); Glucose, Dipstick 1000 mg/dl (Normal); Ketone-Dipstick Negative (Negative); Leukocyte Esterase-Dipstick 25 /ul (Negative); Nitrite-Dipstick Negative (Negative); Occult Blood-Urine Negative /ul (Negative); Protein-Dipstick Negative (Negative); Specific Gravity, Urine 1.010 (1.002-1.030); Urine Bilirubin Dipstick Negative (Negative)
[2025-07-09 11:37] LABS: Squamous Epithelial Cells - UA 5-10 SEEN /hpf (5-10)
[2025-07-09 11:38] LABS: Red Blood Cells-Urine 0-5 SEEN /hpf (0-5)
[2025-07-09 12:26] VITALS: BP 134/78; PULSE 64; RESP 18; TEMP 36.6; O2SAT 99
== END 2025-07-09 12:27 | disposition home or self-care (01) ==
PROVIDERS: Emergency Provider Surgery; PCP Nurse Practitioner Family; Visit Provider Surgery
DX: R51.9 Headache, unspecified (principal); E11.65 Type 2 diabetes mellitus with hyperglycemia; Z79.4 Long term (current) use of insulin; E78.5 Hyperlipidemia, unspecified; I25.10 Atherosclerotic heart disease of native coronary artery without angina pectoris; I10 Essential (primary) hypertension; Z86.73 Personal history of transient ischemic attack (TIA), and cerebral infarction without residual deficits; I25.2 Old myocardial infarction; Z79.82 Long term (current) use of aspirin; Z79.84 Long term (current) use of oral hypoglycemic drugs; Z79.899 Other long term (current) drug therapy; Z90.49 Acquired absence of other specified parts of digestive tract; F17.210 Nicotine dependence, cigarettes, uncomplicated
CPT/HCPCS: 70450; 80048; 81001; 85025; 96361; 96374; 96375; 99285; A4216

== ENCOUNTER 2025-07-23 12:28 | Emergency (ER) | payer MEDICAID, MEDICARE, SELFPAY ==
[2025-07-23 12:30] VITALS: BP 156/91; PULSE 67; RESP 14; TEMP 36.8; O2SAT 98; BMI 35.7
--- NOTE | 2025-07-23 12:46 | EX.ED.DYSGE1 ---
HPI History of Present Illness Chief Complaint: Hypertension Informant: patient and EMS Narrative Narrative: Patient is a 54-year-old female with a history of DM presenting to the ED with elevated blood pressure and hyperglycemia. - Home health nurse recorded BP of 200/100 mmHg today. - Reports feeling a little bit lightheaded and off balance today; denies severe symptoms. - Denies dyspnea, chest pain, fever, or other illness although she felt a little short of breath once last night. - Denies dysuria; reports a normal cough. - Reports polyuria, unsure if it is more than usual. - Denies any recent EtOH or drug use. - Smoker. - Blood glucose measured at 354 mg/dL by EMS. - Has not taken insulin for an unspecified duration; insulin is at a different location, and she is unable to retrieve it. - Takes oral diabetes medication. [facility] Medical History Tobacco abuse Hyperlipidemia History of non-ST elevation myocardial infarction (NSTEMI) Obesity (BMI 30-39.9) Visual disturbance Psoriasis HTN (hypertension) Diabetes Home Medications ?Medication ?Instructions ?Recorded ?Last Taken ?Type HumaLOG KwikPen Insulin See Rx Instructions subcut 3XD 07/18/24 Unknown History Held on 11/02/24. DIABETES Instructions: pt hasn't taken med in 2 months, needs refill aspirin 81 mg chewable tablet 1 tab PO DAILY heart health 07/18/24 Unknown History Held on 11/02/24. Instructions: pt hasn't taken med in 2 months, needs refill buspirone 7.5 mg tablet 7.5 mg PO BID mental health 07/18/24 Unknown History Held on 11/02/24. Instructions: pt hasn't taken med in 2 months, needs refill carvedilol 6.25 mg tablet 6.25 mg PO BID blood pressure 07/18/24 Unknown History Held on 11/02/24. Instructions: pt hasn't taken med in 2 months, needs refill empagliflozin 10 mg tablet 10 mg PO DAILY diabetes 07/18/24 Unknown History (Jardiance) Held on 11/02/24. Instructions: pt hasn't taken med in 2 months, needs refill insulin glargine 100 unit/mL (3 26 unit subcut QPM diabetes 07/18/24 Unknown History mL) subcutaneous pen (Lantus Solostar U-100 Insulin) Held on 11/02/24. Instructions: pt hasn't taken med in 2 months, needs refill losartan 50 mg tablet 50 mg PO DAILY blood pressure 07/18/24 Unknown History ropinirole 0.5 mg tablet 0.5 mg PO TID restless leg 07/18/24 Unknown History Held on 11/02/24. Instructions: pt hasn't taken med in 2 months, needs refill sertraline 25 mg tablet 25 mg PO DAILY mental health 07/18/24 Unknown History Held on 11/02/24. Instructions: pt hasn't taken med in 2 months, needs refill ticagrelor 90 mg tablet (Brilinta) 90 mg PO BID anti platelet 07/18/24 Unknown History Held on 11/02/24. Instructions: pt hasn't taken med in 2 months, needs refill atorvastatin 40 mg tablet 80 mg (2 x 40 mg) PO DAILY 30 days 07/20/24 Unknown Rx Held on 11/02/24. #60 tabs Instructions: pt hasn't taken med in 2 months, needs refill meclizine 12.5 mg tablet 12.5 mg PO TID PRN PRN Dizziness 07/20/24 Unknown Rx Held on 11/02/24. #20 tabs Instructions: pt hasn't taken med in 2 months, needs refill amlodipine 5 mg tablet 5 mg PO BID #60 tabs 07/25/24 Unknown Rx Held on 11/02/24. Instructions: pt hasn't taken med in 2 months, needs refill Allergy/AdvReac Type Severity Reaction Status Date / Time No Known Allergies Allergy Verified 07/09/25 09:02 Surgical History History of nasal surgery Hx of lymph node biopsy Hx of cholecystectomy Social History Smoking Status: Current every day smoker tobacco type: cigarettes ROS ROS ED Constitutional Constitutional ED: Denies chills or fever(s) Eyes Eyes: Denies change in vision or diplopia ENT ENT ED: Denies rhinorrhea or sore throat Cardiovascular Cardiovascular: Reports lightheadedness; Denies chest pain, leg edema, palpitations or syncope Respiratory/Chest Respiratory/Chest: Reports cough; Denies dyspnea or sputum Gastrointestinal Gastrointestinal: Denies abdominal pain, diarrhea, nausea or vomiting Genitourinary Genitourinary ED: Reports urinary frequency; Denies dysuria or hematuria Musculoskeletal Musculoskeletal: Denies back pain or neck pain Integumentary Denies abscess or rash Neurologic Neurologic: Denies headache(s), paresthesias or weakness Psychiatric Psychiatric: Denies suicidal thoughts Endocrine Endocrinology: Reports polyuria EXAM Physical Exam Const Vital Signs: 07/23/25 12:30 07/23/25 14:29 Temperature 98.2 F Temperature Source Oral Pulse Rate 67 61 Respiratory Rate 14 18 Blood Pressure 156/91 H 168/91 H Blood Pressure Mean 112 116 Pulse Ox 98 99 Oxygen Delivery Method Room Air Positive well nourished, well developed and obese General Appearance ED: well developed and NAD Nutritional Appearance: obese HEENT Reports moist mucous membranes normocephalic and atraumatic Eyes PERRL and EOMs intact bilaterally Neck full ROM and supple Resp normal respiratory effort and clear to auscultation bilaterally Resp Narrative: occ expiratory wheeze. conversational w/o distress. Cardio regular rate, regular rhythm and no murmurs Rate: Negative for tachycardic GI non-tender and non-distended Auscultation: normoactive bowel sounds Palpation: soft Back/Spine no CVA tenderness General Back: other FROM Extremity normal to inspection General Extremety ED: Negative for edema, pulses abnormal or tenderness General Extremity: Negative for edema or pulses abnormal Neuro oriented x3, CN's II-XII intact bilaterally and no sensory deficits noted Sensorium / Orientation: awake and alert Motor Exam: strength 5/5 throughout Psych mental status grossly normal Skin no rashes or lesions noted and no wounds MDM MDM MDM Narrative Medical decision making narrative: Blood pressure currently 156/91, patient doing well relatively asymptomatic, we will observe her blood pressure work her up ensure that she has not had another NSTEMI or other evidence of endorgan damage. Assessment: The patient is a 54-year-old female presenting for elevated blood pressure and markedly elevated blood glucose noted by home-health and EMS. Initial BP reportedly 200s/100s and glucose 354 mg/dL; both improved after ED therapy to 153/88 and 170s respectively. Troponins x2 and chest radiograph are unremarkable, making acute coronary syndrome or pulmonary pathology unlikely. Mild nonspecific leukocytosis (12.6) without infectious source. Clinical picture most consistent with accelerated hypertension and hyperglycemia secondary to medication noncompliance; patient now asymptomatic and hemodynamically stable for discharge. Plan: - IV fluids administered for presumed dehydration from osmotic diuresis - Subcutaneous insulin given, achieved glucose reduction to 170s - Blood pressure monitored serially; no pharmacologic antihypertensive required in ED - Offered prescription for replacement insulin supply if unable to retrieve existing medications - Discharge home in stable condition with instructions to resume diabetes and antihypertensive medications and arrange outpatient follow-up Diagnostics: - Labs: WBC 12.6 K/?L (mild leukocytosis); renal function and electrolytes within normal limits - Troponin x2 ? normal - Urinalysis done due to urinary frequency, 100 leukocyte esterase, 5-10 white blood cells, 2+ bacteria and 1000 glucose; sent for culture, treatment not needed empirically given urinary frequency likely related to glycosuria from hyperglycemia. - Chest X-ray 1-view ? no acute infiltrate, no pulmonary edema, no focal abnormality Reevaluations: - After fluids and insulin, BP 153/88, glucose 170s; patient asymptomatic, no chest pain or dyspnea Lab Data Attestation: I reviewed the patient's lab results. Labs: Laboratory Results - last 24 hr 07/23/25 07/23/25 07/23/25 12:40 12:57 13:40 WBC 12.6 H RBC 4.91 Hgb 14.7 Hct 43.8 MCV 89.2 MCH 29.9 MCHC 33.6 RDW Std Deviation 43.6 RDW Coeff of Nhung 13.3 Plt Count 304 MPV 11.4 Immature Gran % (Auto) 0.400 Neut % (Auto) 62.6 Lymph % (Auto) 27.1 [place] % (Auto) 6.8 Eos % (Auto) 2.4 Baso % (Auto) 0.7 Absolute Neuts (auto) 7.9 H Absolute Lymphs (auto) 3.42 Nucleated RBC % 0 Sodium 137 Potassium 3.5 Chloride 102 Carbon Dioxide 21.6 Anion Gap 14 BUN 13 Creatinine 0.89 Estim Creat Clear Calc 78.57 Est GFR (MDRD) Non-Af 77 BUN/Creatinine Ratio 14.5 Glucose 315 H Calcium 9.1 Troponin T High Sens 8 Troponin T Hi Sens 2 Hr Urine Color Yellow Urine Clarity Sl. Cloudy Urine pH 6.0 Ur Specific Bonner 1.010 Urine Protein 15 H Urine Glucose (UA) 1000 H Urine Ketones Negative Urine Occult Blood 10 H Urine Nitrite Negative Urine Bilirubin Negative Urine Urobilinogen Normal Ur Leukocyte Esterase 100 H Urine RBC 0-5 SEEN Urine WBC 5-10 SEEN Ur Squamous Epith Cells 0-5 SEEN Urine Bacteria 2+ Urine Mucus 1+ Urine Yeast RARE POC Glucose 246 H 07/23/25 07/23/25 07/23/25 13:44 14:36 14:40 WBC RBC Hgb Hct MCV MCH MCHC RDW Std Deviation RDW Coeff of Nhung Plt Count MPV Immature Gran % (Auto) Neut % (Auto) Lymph % (Auto) [place] % (Auto) Eos % (Auto) Baso % (Auto) Absolute Neuts (auto) Absolute Lymphs (auto) Nucleated RBC % Sodium Potassium Chloride Carbon Dioxide Anion Gap BUN Creatinine Estim Creat Clear Calc Est GFR (MDRD) Non-Af BUN/Creatinine Ratio Glucose Calcium Troponin T High Sens Troponin T Hi Sens 2 Hr 9 Urine Color Urine Clarity Urine pH Ur Specific [place] Urine Protein Urine Glucose (UA) Urine Ketones Urine Occult Blood Urine Nitrite Urine Bilirubin Urine Urobilinogen Ur Leukocyte Esterase Urine RBC Urine WBC Ur Squamous Epith Cells Urine Bacteria Urine Mucus Urine Yeast POC Glucose 225 H 177 H Radiography Diagnostic Testing: Clinical Impression(s) from Imaging Studies Chest X-Ray 07/23/25 13:05 IMPRESSION: A left-sided loop recorder remains in place. Lungs appear clear. No pleural effusion or pneumothorax is seen. The cardiomediastinal silhouette is stable, without evidence of cardiomegaly. No acute osseous process is seen. No evidence of acute cardiopulmonary disease. Reading Location: [facility] Rhythm Strip Rhythm Strip: Sinus Rhythm Rate: 65 Ectopy: None EKG Initial EKG: Attestation: I personally reviewed and interpreted this EKG as follows: Interpretation: Sinus Rhythm, No Acute Injury Pattern and LAFB Prior EKG tracings: available for review Prior: Unchanged Discharge Plan Triage Chief Complaint: Hypertension ED Provider: Guero Gomez Dx/Rx/DC Orders Clinical Impression: Accelerated hypertension, Type 2 diabetes mellitus with hyperglycemia, Noncompliance with medication regimen, Lightheadedness Instructions: ED Diabetic Hyperglycemia Prescriptions: No Action Brilinta 90 mg tablet 90 mg PO BID losartan 50 mg tablet 50 mg PO DAILY carvedilol 6.25 mg tablet 6.25 mg PO BID ropinirole 0.5 mg tablet 0.5 mg PO TID sertraline 25 mg tablet 25 mg PO DAILY buspirone 7.5 mg tablet 7.5 mg PO BID aspirin 81 mg tablet,chewable 1 tab PO DAILY Jardiance 10 mg tablet 10 mg PO DAILY insulin glargine [Lantus Solostar U-100 Insulin] 100 unit/mL (3 mL) insulin pen 26 unit subcut QPM HumaLOG KwikPen Insulin pen injector See Rx Instructions subcut 3XD Protocol: 4. Sliding Scale Insulin High-Med Dosing Condition: 150-199 mg/dl = 2 units Condition: 200-259 mg/dl = 4 units Condition: 260-324 mg/dl = 6 units Condition: 325-374 mg/dl = 8 units Condition: 375-409 mg/dl = 10 units Condition: 410-449 mg/dl = 11 units Condition: Greater than 449 call physician Protocol Text: Suggested for: - Patients on Total Daily Insulin Dose of 56-80 units - Patient who are known to be insulin resistant or septic HIGH MEDIUM DOSING ALGORITHM Rx Instructions: SLIDING SCALE subcutaneously 3 times daily; SLIDING SCALE REFER TO SLIDING SCALE meclizine 12.5 mg Tablet 12.5 mg PO TID PRN PRN (Reason: Dizziness) Qty: 20 0RF atorvastatin 40 mg tablet 80 mg PO DAILY 30 Days Qty: 60 0RF amlodipine 5 mg tablet 5 mg PO BID Qty: 60 11RF Primary Care Provider: Luz Mera Referrals: Luz Mera, [employer] [Primary Care Provider, Family Practice] - 3-5 Days Referral Note: for BP recheck/reeval Activity Restrictions/Additional Instructions: Try to get your insulins and use as prescribed soon as possible. Print Language: Citizen Of [place] Disposition Disposition: Home, Self Care
[2025-07-23] MEDS: 0.9% Normal Saline (500mL Bag) 500 ML 999 ML IV (12:55)
[2025-07-23 12:57] LABS: Hematocrit 43.8 % (37-47); Hemoglobin 14.7 g/dL (12.0-15.0); Immature Granulocytes Count 0.050 X10^3/uL (0.0-0.0); Mean Corp Hgb Conc 33.6 g/dL (32-36); Mean Corpuscular Volume 89.2 fL (81-99); Mean Platelet Vol. 11.4 fl (6.2-12.0); NRBC Flagged by Analyzer 0 % (0-5); Platelet Count 304 K/mm3 (150-450); RBC Distribution Width CV 13.3 % (11.6-14.6); RBC Distribution Width SD 43.6 fl (35.1-43.9); Red Blood Count 4.91 M/mm3 (4.2-5.4); White Blood Count 12.6 K/mm3 (4.4-11.0)
--- NOTE | 2025-07-23 13:05 | RAD_ITS ---
PROCEDURE: RAD/Chest 1 View (Portable)
[2025-07-23 13:27] LABS: Troponin T High Sensitivity 8 ng/L (<=14)
[2025-07-23 13:28] LABS: Anion Gap 14 (5-15); BUN 13 mg/dL (4-19); BUN/Creat Ratio 14.5 RATIO (10-20); Calcium,Total 9.1 mg/dL (7.6-11.0); Carbon Dioxide 21.6 mmol/L (21.0-32.0); Chloride 102 mmol/L (98-108); Estimated Creatinine Clearance 78.57 ml/min (50-250); Glucose 315 mg/dL (70-99); Potassium 3.5 mmol/L (3.3-5.1)
[2025-07-23 14:05] LABS: Color, Urine Yellow (Yellow); Glucose, Dipstick 1000 mg/dl (Normal); Ketone-Dipstick Negative (Negative); Leukocyte Esterase-Dipstick 100 /ul (Negative); Nitrite-Dipstick Negative (Negative); Occult Blood-Urine 10 /ul (Negative); Protein-Dipstick 15 mg/dl (Negative); Specific Gravity, Urine 1.010 (1.002-1.030); Urine Bilirubin Dipstick Negative (Negative)
[2025-07-23 14:18] LABS: Mucous, Urine 1+ /hpf (<or=2+); Red Blood Cells-Urine 0-5 SEEN /hpf (0-5); Squamous Epithelial Cells - UA 0-5 SEEN /hpf (5-10); Yeast-Urine RARE /hpf (None Seen)
[2025-07-23 14:29] VITALS: BP 168/91; PULSE 61; RESP 18; O2SAT 99
[2025-07-23 15:01] LABS: Troponin T High Sens 2 HR 9 ng/L (<=14)
[2025-07-23 15:40] VITALS: BP 158/88; PULSE 62; RESP 20; TEMP 36.9; O2SAT 100
== END 2025-07-23 15:41 | disposition home or self-care (01) ==
PROVIDERS: Emergency Provider Emergency Medicine; PCP Nurse Practitioner Family; Visit Provider Emergency Medicine
DX: I10 Essential (primary) hypertension (principal); E11.65 Type 2 diabetes mellitus with hyperglycemia; Z79.4 Long term (current) use of insulin; Z91.148 Patient's other noncompliance with medication regimen for other reason; R42 Dizziness and giddiness; Z87.891 Personal history of nicotine dependence; I25.2 Old myocardial infarction; Z79.82 Long term (current) use of aspirin; Z79.899 Other long term (current) drug therapy; Z79.84 Long term (current) use of oral hypoglycemic drugs; Z90.49 Acquired absence of other specified parts of digestive tract; F17.210 Nicotine dependence, cigarettes, uncomplicated
CPT/HCPCS: 71045; 80048; 81001; 82962; 84484; 85025; 87086; 87088; 93005; 96360; 96372; 99285; A4216

== ENCOUNTER 2025-08-05 18:05 | Emergency (ER) | payer MEDICARE, MEDICAID, SELFPAY ==
[2025-08-05] VITALS (9 sets, daily range): BP systolic 136–183; BP diastolic 66–98; PULSE 67–91; RESP 16–24; TEMP 36.4–36.9; O2SAT 94–100; BMI 34.2
--- NOTE | 2025-08-05 18:15 | CT_ITS ---
PROCEDURE: STROKE CTA HEAD AND NECK W/CON 08/05/2025 REASON FOR EXAM: NEURO DEFICIT, ACUTE, STROKE SUSPECTED TECHNIQUE: Procedure Code: CTCTA.ST.HN Modality: CT Procedure: STROKE CTA HEAD AND NECK W/CON Multiplanar Sagittal and Coronal images were obtained. CONTRAST: 100 mL of Isovue 370 One or more dose reduction techniques were used (e.g., Automated exposure control, adjustment of the mA and/or kV according to patient size, use of iterative reconstruction technique). RADIATION DOSE SUMMARY: DLP: 598 mGycm COMPARISON: none FINDINGS: The aortic arch demonstrates a type I configuration. The ostia of the great vessels are patent. There is conventional branching. The right CCA contains mural noncalcified atherosclerosis with minimal stenosis. There is mild to moderate stenosis (~50%) of the right carotid bifurcation by NASCET criteria due to mural noncalcified atherosclerosis (series 2, image 253). There is moderate (~75%) stenosis of the right carotid siphon due to noncalcified atherosclerosis (series 2, image 378). The right A2 appears absent which may reflect congenital or occlusion. The right MCA appear patent. The left CCA contains mural noncalcified atherosclerosis with minimal stenosis. There is mild to moderate stenosis (~50%) of the left carotid bifurcation by NASCET criteria due to mural noncalcified atherosclerosis (series 2, image 252). the cervical left ICA is patent. The left RUTH ANN appear patent. There is mild stenosis of the distal M1 (series 2, image 391). There is no large vessel occlusion. The right vertebral artery arises from the right subclavian artery. The left vertebral artery arises from the left subclavian artery. There is mural noncalcified atherosclerosis of the proximal left subclavian artery with mild to moderate stenosis. There is complete occlusion of the right V1 and V2 segment up to the level of the C4 vertebral level. There is moderate stenosis vs possible dissection at the distal right V4 segment (series 2, image 351). Both vertebral arteries join to form the patent basilar artery. Both posterior cerebral arteries arise from the tip of the basilar. Both proximal APRON OPERATOR segments are patent but diminutive. There is no enhancing intracranial mass. Shotty cervical lymph nodes are identified. The thyroid gland is heterogeneous. The lung apices demonstrate no pneumothorax. No destructive osseous abnormalities identified. 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 Moderate stenosis vs possible dissection at the distal right V 4 segment. 2) right A2 appears absent which may reflect congenital or occlusion. 3) mild stenosis of the distal M1 (~50%). 4) mural noncalcified atherosclerosis of the proximal left subclavian artery wi th mild to moderate stenosis. 5) moderate (~75%) stenosis of the right carotid siphon and mild to moderate st enosis (~50%) of the bilateral carotid bulbs due to atherosclerosis. The critical findings in the findings and impression above were relayed directl y by me by telephone to Caprice Fermin on 08/05/2025 at 7:25 pm EST with readback verification. Reading Location: [facility]
--- NOTE | 2025-08-05 18:15 | EKG12_ITS ---
Test Reason : DYSRHYTHMIA Blood Pressure : */* mmHG Vent. Rate : 69 BPM Atrial Rate : 69 BPM P-R Int : 134 ms QRS Dur : 92 ms QT Int : 426 ms P-R-T Axes : -10 -7 98 degrees QTcB Int : 456 ms Normal sinus rhythm T wave abnormality, consider lateral ischemia Abnormal ECG Confirmed by Ricky Wagoner ([id number]), clinical editor TAN CAPONE ([id number]) on 08/06/2025 10:41:55 AM Referred By: Confirmed By: Ricky Wagoner
--- NOTE | 2025-08-05 18:15 | CT_ITS ---
PROCEDURE: STROKE BRAIN/HEAD WITHOUT CONT 08/05/2025 REASON FOR EXAM: NEURO DEFICIT, ACUTE, STROKE SUSPECTED TECHNIQUE: Procedure Code: CTBR.ST Modality: CT Procedure: STROKE BRAIN/HEAD WITHOUT CONT Coronal and Sagittal reconstruction series were provided. One or more dose reduction techniques were used (e.g., Automated exposure control, adjustment of the mA and/or kV according to patient size, use of iterative reconstruction technique. 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 Left carrizales radiata encephalomalacia. There is no acute infarct, intracranial hemorrhage, or mass effect. There is no hydrocephalus or significant midline shift. There is mild chronic microvascular ischemic changes and mild parenchymal volume loss. No acute, depressed calvarial fractures. No large scalp hematomas. Scattered paranasal sinus fluid. CT/STROKE Brain/Head without Cont IMPRESSION: No acute, large territorial infarction. 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 Left carrizales radiata encephalomalacia. Scattered paranasal sinus fluid. Stroke Alert: No acute, large territorial infarction. The critical findings in the findings and impression above were relayed directl y by me by telephone to Caprice Fermin on 08/05/2025 at 6:45 pm with readback verification. Reading Location: [facility]
--- OUTSIDE RECORDS SUMMARY | 2025-08-05 18:24 | XMS RPT_ITS | CCD ---
Author Organization [facility] Care Team Providers Care Cascade Operator Name Role Phone Ruthie MOLINA, Ricky Laguna Primary Care Provider Samaria BLAIR - Luz LEI Primary Care Provider Luz Mcdermott Primary Care Provider NONE, PCP Referring Unavailable JASE ORTIZ Admitting Unavailable MCDERMOTT, LUZ Primary Care Unavailable MAXIMO MAX Consulting Unavailable GUERO MONSON JR Attending Unavailable Mcdermott POISER - ELECTRICAL CAD DESIGNERLuz Primary Care Provider Samaria BLAIR - ELECTRICAL CAD DESIGNERLuz Primary Care Provider BAIRON BUCHANAN Primary Care Unavailable MCDERMOTT, LUZ E Primary Care Unavailable RIMA HAMMOND Attending Unavailable RIMA HAMMOND Admitting Unavailable MCDERMOTT, LUZ E Primary Care Unavailable MAROUF, LOAI F Referring Unavailable MAROUF, LOAI F Referring Unavailable MCDERMOTT, LUZ E Primary Care Unavailable MCDERMOTT, LUZ E Primary Care Unavailable MAROUF, LOAI F Referring Unavailable MCDERMOTT, LUZ E Referring Unavailable MCDERMOTT, LUZ E Primary Care Unavailable MAROUF, LOAI F Referring Unavailable MCDERMOTT, LUZ E Primary Care Unavailable MCDERMOTT, LUZ E Primary Care Unavailable MAROUF, LOAI F Referring Unavailable MAROUF, LOAI F Referring Unavailable MCDERMOTT, LUZ E Primary Care Unavailable MCDERMOTT, LUZ E Primary Care Unavailable MAROUF, LOAI F Referring Unavailable MAROUF, LOAI F Referring Unavailable MCDERMOTT, LUZ E Primary Care Unavailable MCDERMOTT, LUZ E Primary Care Unavailable MAROUF, LOAI F Referring Unavailable Samaria WALL CLEANER-CLuz Primary Care Physician Donna KINGSTON, Dr. Green Attending Physician Dr. Peter Thompson DO Emergency Departmen t Physician Luz Mcdermott Primary Care Unavailable Peter Thompson Attending UnavailMaximo Mcghee Attending Unavailable Luz Mcdermott Primary Care Unavailable Care Physician, No Primary Primary Care Unava ilable Cricket Fuentes Referring Unavailable Cricket Fuentes Attending Unavailable Luz Mcdermott Primary Care Unavailable Guero Gomez Attending Unavailable Medications Current Medications Medication Drug Class(es) Dates Sig (Normalized) Sig (Original) Acetaminophen (8 sources) Start: 03-29-2024 acetaminophen (TYLENOL) tablet 650 mg Start: 03-27-2024 End: 04-06-2024 take 650 mg by mouth every four hours as needed for pain Start: 03-15-2024 End: 03-16-2024 Start: 11-30-2022 take 1 tablet by honey th every eight hours as needed for pain acetaminophen (TYLENOL 8 HOUR ARTHRITIS PAIN) 650 MG extended release tablet Indications: Arthritis Take 1 tablet by mouth every 8 hours as needed for Pain 60 tablet 3 11/30/2022 Active Start: 04-05-2022 acetaminophen (TYLENOL) tablet 650 mg Start: 04-03-2022 acetaminophen (TYLENOL) tablet 650 mg cefTRIAXone (ROCEPHIN) 1,000 mg in sodium chloride 0.9 % 50 mL IVPB (mini-bag) (1 source) Start: 03-29-2024 End: 04-03-2024 1,000 mg, IntraVENous, EVERY 12 HOURS, 10 doses, First dose on Mon03/29/24 at 1230, Last dose on Mon04/03/24 at 0300 Antimicrobial Indications: Urinary Tract Infection UTI duration of therapy: 5 days cephalexin 500 mg oral capsule (3 sources) Cephalosporin Antibacterial Start: 04-02-2024 End: 04-04-2024 take 1 capsule by mouth three times daily cephALEXin (KEFLEX) 500 MG capsule Take 1 capsule by mouth 3 times daily for 2 days 0 04/02/2024 04/04/2024 Active Start: 09-08-2013 End: 09-08-2013 take 1 capsule by mouth three times daily Cephalexin (Keflex) 500 MG capsule Discontinued 500 mg PO THREE TIMES A DAY 24 0 September 08, 2013 1:00am September 08, 2013 9:48am diclofenac sodium 0.01 mg/mg topical gel (1 source) Nonsteroidal Anti-inflammatory Drug Start: 08-11-2022 diclofenac sodium (VOLTAREN) 1 % GEL Indications: Arthritis Apply 2 g topically 4 times daily 100 g 1 08/11/2022 Active docusate sodium 50 mg / sennosides, fpc 8.6 mg oral tablet (4 sources) Start: 03-23-2024 End: 03-28-2025 0.5 ml dulaglutide 1.5 mg/ml auto-injector (1 source) GLP-1 Receptor Agonist Start: 04-06-2022 Dulaglutide (TRULICITY) 0.75 MG/0.5ML SOPN Inject 0.75 mg into the skin once a week 4 pen 3 04/06/2022 Active empagliflozin 10 mg oral tablet (18 sources) Sodium-Glucose Cotransporter 2 Inhibitor Start: 06-23-2025 take 1 tablet by mouth once daily empagliflozin (JARDIANCE) 10 MG tablet Indications: Type 2 diabetes mellitus with other circulatory complication, with long-term current use of insulin (HCC) Take 1 tablet by mouth daily 90 tablet 1 06/23/2025 Suspended Start: 12-12-2024 take 1 tablet by honey th once daily empagliflozin (JARDIANCE) 10 MG tablet Indications: Type 2 diabetes mellitus with other circulatory complication, with long-term current use of insulin (HCC) Take 1 tablet by mouth daily 90 tablet 1 12/12/2024 Active Start: 07-18-2024 take 1 tablet by honey th twice daily Start: 04-03-2024 take 1 tablet by honey th once daily empagliflozin (JARDIANCE) 10 MG tablet Take 1 tablet by mouth daily 30 tablet 3 04/03/2024 Active Start: 03-29-2024 10 mg, Oral, D AILY, First dose on Mon03/29/24 at 1139, Until Discontinued Indication of Use: Type 2 diabetes, Heart Failure (preserved EF) Start: 01-05-2024 End: 04-02-2024 take 1 tablet by mouth once daily JARDIANCE 25 MG tablet Indications: Type 2 diabetes mellitus without complication, without long-term current use of insulin (HCC) TAKE ONE TABLET BY MOUTH DAILY AT 9AM 30 tablet 5 01/05/2024 04/02/2024 Discontinued (Stop Taking at Discharge) Start: 11-28-2022 take 1 tablet by honey th once daily empagliflozin (JARDIANCE) 10 MG tablet Indications: Uncontrolled type 2 diabetes mellitus with hyperglycemia (HCC) Take 1 tablet by mouth daily 90 tablet 1 11/28/2022 Active Start: 04-06-2022 take 1 tablet by honey th once daily empagliflozin (JARDIANCE) 10 MG tablet Take 1 tablet by mouth daily 30 tablet 3 04/06/2022 Active Start: 08-13-2021 End: 12-11-2021 Jardiance 10 mg oral tablet Dose : 10 mg = 1 tab(s), Oral, qAM, # 30 tab(s), 3 Refill(s), Pharmacy: [facility], 160, cm, 08/10/21 11:46:00 EST, Height, kg, 08/10/21 11:46:00 EST, Dosing Weight Start Date: 08/13/21 Stop Date: 12/11/21 Status: Ordered 1000 ml glucose 100 mg/ml injection (10 sources) Start: 03-29-2024 take 1 mL intravenously every hour IntraVENous, at 100 mL/hr, CONTINUOUS PRN, if blood glucose remains LESS THAN 70 mg/dL after 2 dextrose 10% intravenous boluses or administration of glucagon, Starting on Mon03/29/24 at 1204 If blood glucose fails to stabilize after 2 dextrose 10% intravenous boluses or glucagon administration, start dextrose 10% infusion at 100 mL/hour and repeat blood glucose at 30 and 60 minutes. If blood glucose is GREATER THAN 70 mg/dL after 60 minutes, discontinue dextrose 10% infusion. Start: 03-29-2024 dextrose bolus 10% 125 mL Start: 03-29-2024 16 g (4 tablet ), Oral, PRN, Starting on Mon03/29/24 at 1204, Until Discontinued, Low blood sugar If blood glucose is LESS THAN 70 mg/dL and patient is alert and tolerating oral. Give 4 tablets (16g) Repeat blood glucose in 15 minutes. If blood glucose is LESS THAN 70 mg/dL, repeat treatment and recheck blood glucose in 15 minutes x 2. If blood glucose remains LESS THAN 70 mg/dL, notify provider. Start: 03-15-2024 End: 03-27-2024 Start: 03-15-2024 End: 03-27-2024 Start: 04-03-2022 dextrose 5 % s olution Start: 04-03-2022 dextrose bolus 10% 125 mL Start: 04-03-2022 glucose chewab le tablet 16 g HumaLOG KwikPen Insulin pen injector (1 source) Start: 07-18-2024 inject 56-80 [IU] by subcutaneous injection twice daily 1 ml hydrALAZINE hydrochloride 20 mg/ml injection (3 sources) Arteriolar Vasodilator Start: 04-03-2022 hydrALAZINE (APRESOLINE) injection 10 mg Start: 04-03-2022 End: 04-03-2022 hydrALAZINE (APRESOLINE) inj ection 20 mg labetalol hydrochloride 5 mg/ml injectable solution (1 source) beta-Adrenergic Nando Start: 04-05-2022 labetalol (NORMODYNE;TRANDATE) injection 10 mg lidocaine 0.05 mg/mg medicated patch (2 sources) Antiarrhythmic, Amide Local Anesthetic Start: 12-12-2024 apply 1 dose transdermal route once daily lidocaine (LIDODERM) 5 % Indications: Other chronic pain Place 1 patch onto the skin daily 12 hours on, 12 hours off. 60 patch 1 12/12/2024 Active nitroglycerin 0.4 mg sublingual tablet (5 sources) Nitrate Vasodilator Start: 03-15-2024 End: 03-27-2025 Start: 04-03-2022 End: 04-04-2022 nitroglycerin (NITRO-BID) 2 % ointment 0.5 inch 2 ml ondansetron 2 mg/ml injection (1 source) Serotonin-3 Receptor Antagonist Start: 04-05-2022 ondansetron (ZOFRAN) injection 4 mg oxyCODONE hydrochloride 5 mg oral tablet (1 source) Opioid Agonist Start: 03-29-2024 oxyCODONE (ROXICODONE) immediate release tablet 5 mg polyethylene glycol 3350 [id number] mg powder for oral solution (6 sources) Osmotic Laxative Start: 03-23-2024 End: 03-31-2024 polyethylene glycol (GLYCOLAX) packet 17 g Start: 04-03-2022 17 g, Oral, DA STACY PRN, Starting on Mon04/03/22 at 1054, Until Discontinued, Constipation First line therapy for constipation 50 ml sodium chloride 9 mg/ml injection (20 sources) Start: 07-14-2025 IntraVENous, a t 75 mL/hr, CONTINUOUS, Starting on Mon07/14/25 at 1015, Pre-procedure(GI) Start: 07-14-2025 5-40 mL, Intra VENous, EVERY 12 HOURS SCHEDULED (2 times per day), First dose on Mon07/14/25 at 1015, Until Discontinued, For Line Patency: Peripheral IV = 5 mL; Midline or Central Line = 10 mL/lumen. If following IV push medication, administer flush at same rate as the IV push. Flush volume is determined by type of infusion therapy being given. For non-viscous solutions use: Peripheral IV = 5 mL Midline or Central Line = 10 mL/lumen For viscous solutions (i.e. blood components, parenteral nutrition, contrast media, or after obtaining blood sample) use: Peripheral IV = 10 mL Midline or Central Line = 20 mL/lumen, Pre-procedure(GI) Start: 07-14-2025 5-40 mL, Intra VENous, PRN, Starting on Mon07/14/25 at 0954, Until Discontinued, Line Care, After every IV line use, For Line Patency: Peripheral IV = 5 mL; Midline or Central Line = 10 mL/lumen. If following IV push medication, administer flush at same rate as the IV push. Flush volume is determined by type of infusion therapy being given. For non-viscous solutions use: Peripheral IV = 5 mL Midline or Central Line = 10 mL/lumen For viscous solutions (i.e. blood components, parenteral nutrition, contrast media, or after obtaining blood sample) use: Peripheral IV = 10 mL Midline or Central Line = 20 mL/lumen, Pre-procedure(GI) Start: 03-29-2024 0.9 % sodium c hloride infusion Start: 03-29-2024 sodium chlorid e flush 0.9 % injection 10 mL Start: 03-29-2024 End: 03-29-2024 sodium chloride 0.9 % bolus 500 mL Start: 03-15-2024 End: 03-27-2024 Start: 04-05-2022 0.9 % sodium c hloride infusion Start: 04-03-2022 sodium chlorid e flush 0.9 % injection 5-40 mL Start: 04-03-2022 IntraVENous, a t 5-250 mL/hr, PRN, if patient receiving piggyback infusions and maintenance fluids are not ordered OR KVO fluids to protect IV site / prevent frequent line interruptions/ long duration, Starting on [place] 04/03/22 at 1054 For piggyback infusion, administer at same rate as piggyback for a total of 25 mL. Enter 25 mL into dose field and piggyback rate into rate field of order. If piggyback is infusing at a rate less than 100 mL/hr, enter 25 mL into dose field and 100 mL/hr into rate field of order. For KVO fluids, enter rate of 20 mL/hr or less into rate field of order. Start: 04-03-2022 take 10 mL intraveno usly once as needed 10 mL, IntraVENous, PRN, Starting on [place] 04/03/22 at 1054, Until Discontinued, Line Care, After every IV line use Completed/Discontinued Medications Medication Drug Class(es) Dates Sig (Normalized) Sig (Original) acetaminophen 325 mg / oxyCODONE hydrochloride 10 mg oral tablet (2 sources) Opioid Agonist Start: 09-02-2013 End: 07-18-2024 Oxycodone-Acetamino phen (Percocet) 1 EACH tablet Discontinued 1 {tbl} PO EVERY 6 HOURS NEEDED as needed for Pain September 02, 2013 1:00am July 18, 2024 9:24pm albuterol 0.833 mg/ml / ipratropium bromide 0.167 mg/ml inhalation solution (14 sources) Anticholinergic, beta2-Adrenergic Agonist Start: 03-15-2024 End: 03-27-2025 Start: 04-03-2022 End: 04-03-2022 ipratropium-albuterol (DUONE B) nebulizer solution 1 ampule take 3 mL by inhalat ion every six hours as needed ipratropium 0.5 mg-albuterol 2.5 mg (DUONEB) 0.5-2.5 (3) MG/3ML SOLN nebulizer solution Inhale 3 mLs into the lungs every 6 hours as needed for Shortness of Breath Active ALPRAZolam 0.5 mg oral tablet (2 sources) Benzodiazepine Start: 03-19-2024 End: 03-20-2024 amLODIPine 5 mg oral tablet (12 sources) Dihydropyridine Calcium Channel Nando Start: 06-10-2025 take 1 tablet by mouth once daily amLODIPine (NORVASC) 5 MG tablet Indications: Uncontrolled hypertension Take 1 tablet by mouth daily 90 tablet 1 06/10/2025 Suspended Start: 12-12-2024 take 1 tablet by honey th once daily amLODIPine (NORVASC) 5 MG tablet Indications: Uncontrolled hypertension Take 1 tablet by mouth daily 90 tablet 1 12/12/2024 Active Start: 07-25-2024 take 1 tablet by honey th twice daily Start: 07-20-2024 End: 07-25-2024 take 1 tablet by mouth once daily Amlodipine 5 mg Tablet Discontinued 5 mg PO DAILY 30 0 July 20, 2024 12:00am July 25, 2024 2:04pm Start: 03-20-2023 End: 03-29-2024 take 1 tablet by mouth once daily amLODIPine (NORVASC) 5 MG tablet Indications: Hypertension, unspecified type Take 1 tablet by mouth daily 90 tablet 1 03/20/2023 03/29/2024 Discontinued (LIST CLEANUP) Start: 11-28-2022 take 1 tablet by honey th once daily amLODIPine (NORVASC) 5 MG tablet Indications: Hypertension, unspecified type Take 1 tablet by mouth daily 90 tablet 1 11/28/2022 Active Start: 04-05-2022 take 1 tablet by honey th once daily amLODIPine (NORVASC) 5 MG tablet Take 1 tablet by mouth daily 30 tablet 3 04/05/2022 Active aspirin 81 mg chewable tablet (20 sources) Platelet Aggregation Inhibitor, Nonsteroidal Anti-inflammatory Drug Start: 07-18-2024 Start: 06-29-2022 End: 03-28-2025 take 1 tablet by mouth once daily aspirin EC 81 MG EC tablet Take 1 tablet by mouth daily 30 tablet 5 06/29/2022 Suspended Start: 04-04-2022 aspirin EC tab let 81 mg Start: 08-13-2021 aspirin 81 mg oral tablet, chewable Dose : 81 mg = 1 tab(s), Oral, qDayM, # 30 tab(s), 3 Refill(s), Pharmacy: [facility], 160, cm, 08/10/21 11:46:00 EST, Height, kg, 08/10/21 11:46:00 EST, Dosing Weight Start Date: 08/13/21 Status: Ordered atorvastatin 40 mg oral tablet (20 sources) HMG-CoA Reductase Inhibitor Start: 07-18-2024 End: 07-20-2024 take 1 tablet by mouth once daily Atorvastatin 40 mg tablet Discontinued 40 mg PO DAILY July 18, 2024 12:00am July 20, 2024 11:20am Start: 04-02-2024 take 2 tablets by mo uth at bedtime atorvastatin (LIPITOR) 40 MG tablet Indications: Hyperlipidemia Take 2 tablets by mouth at bedtime Indications: High Amount of Fats in the Blood 90 tablet 1 06/23/2025 Suspended Start: 03-27-2024 End: 03-27-2024 Start: 03-27-2024 End: 03-27-2024 Start: 03-27-2024 End: 03-27-2025 Start: 03-20-2023 End: 04-02-2024 take 40 mg by mouth once daily 40 mg, Oral, NIGHTLY, F irst dose on Mon03/29/24 at 2100, Until Discontinued Start: 11-28-2022 take 1 tablet by honey once daily atorvastatin (LIPITOR) 40 MG tablet Take 1 tablet by mouth daily 90 tablet 1 11/28/2022 Active Start: 08-13-2021 take 40 mg by mouth once daily 40 mg, Oral, Nightly, First dose on Mon04/03/22 at 2100, Until Discontinued 60 actuat budesonide 0.16 mg/actuat / formoterol fumarate 0.0045 mg/actuat metered dose inhaler (4 sources) Corticosteroid, beta2-Adrenergic Agonist Start: 03-11-2025 take 2 puff(s) by inhalation twice daily SYMBICORT 160-4.5 MCG/ACT AERO Indications: Chronic obstructive pulmonary disease, unspecified COPD type (HCC) Inhale 2 puffs into the lungs 2 times daily 10.2 g 3 03/11/2025 Suspended busPIRone hydrochloride 7.5 mg oral tablet (7 sources) Start: 06-23-2025 take 1 tablet by mouth three times daily busPIRone (BUSPAR) 7.5 MG tablet Take 1 tablet by mouth 3 times daily 270 tablet 1 06/23/2025 Suspended Start: 07-18-2024 take 1 tablet by honey th twice daily Start: 05-14-2024 take 1 tablet by honey th three times daily busPIRone (BUSPAR) 7.5 MG tablet Take 1 tablet by mouth 3 times daily 05/14/2024 Active carvedilol 12.5 mg oral tablet (20 sources) alpha-Adrenergic Nando, beta-Adrenergic Nando Start: 07-18-2024 End: 07-18-2024 Carvedilol 12.5 mg tablet Discontinued 12.5 mg PO July 18, 2024 12:00am July 18, 2024 9:23pm Start: 04-02-2024 take 0.5 tablet by m outh twice daily carvedilol (COREG) 12.5 MG tablet Indications: Hypertension Take 0.5 tablets by mouth 2 times daily Indications: High Blood Pressure Disorder 04/02/2024 Active Start: 03-29-2024 take 6.25 mg by mout h twice daily at mealtime 6.25 mg, Oral, 2 TIMES DAILY, First dose on Mon03/29/24 at 1139, Until Discontinued Administer with food to minimize the risk of orthostatic hypotension Start: 03-17-2024 End: 03-27-2025 take 1 tablet by mouth twice daily at mealtime carvedilol (COREG) 6.25 MG tablet Indications: Hypertension Take 1 tablet by mouth 2 times daily (with meals) Indications: High Blood Pressure 180 tablet 1 06/10/2025 Suspended Start: 09-10-2023 End: 04-02-2024 take 1 tablet by mouth twice daily carvedilol (COREG) 12.5 MG tablet Indications: Uncontrolled hypertension TAKE 1 TABLET BY MOUTH TWICE DAILY 60 tablet 3 09/10/2023 04/02/2024 Discontinued Start: 11-28-2022 take 1 tablet by honey th twice daily carvedilol (COREG) 6.25 MG tablet Indications: Hypertension, unspecified type Take 1 tablet by mouth 2 times daily 180 tablet 1 11/28/2022 Active Start: 04-04-2022 carvedilol (CO REG) tablet 12.5 mg Start: 08-13-2021 End: 12-11-2021 Coreg 6.25 mg oral tablet Do se : 6.25 mg = 1 tab(s), Oral, BIDM, # 60 tab(s), 3 Refill(s), Pharmacy: [facility], 160, cm, 08/10/21 11:46:00 EST, Height, kg, 08/10/21 11:46:00 EST, Dosing Weight Start Date: 08/13/21 Stop Date: 12/11/21 Status: Ordered cholecalciferol 9.52 unt/ml / glucose 357 mg/ml oral gel (10 sources) Vitamin D Start: 03-15-2024 End: 03-27-2024 Start: 04-19-2022 TRUEPLUS GLUCO SE ON THE GO 4 g chewable tablet TAKE 3 TABLETS BY MOUTH NEEDED FOR LOW BLOOD SUGAR. 30 tablet 2 04/19/2022 Suspended Start: 04-19-2022 TRUEPLUS GLUCO SE ON THE GO 4 g chewable tablet TAKE 3 TABLETS BY MOUTH NEEDED FOR LOW BLOOD SUGAR. 30 tablet 2 04/19/2022 Active ciprofloxacin 500 mg oral tablet (2 sources) Quinolone Antimicrobial Start: 09-16-2023 End: 03-14-2024 take 1 tablet by mouth twice daily Ciprofloxacin Hcl 500 mg tablet Discontinued 500 mg PO TWICE A DAY 14 September 16, 2023 1:00am March 14, 2024 1:51pm cloNIDine hydrochloride 0.1 mg oral tablet (1 source) Central alpha-2 Adrenergic Agonist Start: 04-03-2022 End: 04-03-2022 cloNIDine (CATAPRES) tablet 0.2 mg Continuous Blood Gluc Computational Biologist (FREESTYLE LISET 14 DAY READER) WALKER (2 sources) Start: 04-13-2022 Continuous Blood Gluc Computational Biologist (FREESTYLE LISET 14 DAY READER) WALKER Indications: Uncontrolled type 2 diabetes mellitus with hyperglycemia (HCC) 1 actuation by Does not apply route 4 times daily (before meals and nightly) 1 each 0 04/13/2022 Suspended Start: 04-13-2022 Continuous Blo od Gluc Computational Biologist (FREESTYLE LISET 14 DAY READER) WALKER Indications: Uncontrolled type 2 diabetes mellitus with hyperglycemia (HCC) 1 actuation by Does not apply route 4 times daily (before meals and nightly) 1 each 0 04/13/2022 Active Continuous Blood Gluc Sensor (FREESTYLE LISET 14 DAY SENSOR) [facility] [place] (2 sources) Start: 03-14-2023 Continuous Blo od Gluc Sensor (FREESTYLE LISET 14 DAY SENSOR) [facility] [place] Indications: Uncontrolled type 2 diabetes mellitus with hyperglycemia (HCC) APPLY 1 SENSOR TO BACK OF UPPER ARM. REMOVE AND REPLACE EVERY 14 DAYS. USE WITH DEVICE TO MONITOR BLOOD SUGAR 2 each 10 03/14/2023 Suspended Start: 04-13-2022 Continuous Blo od Gluc Sensor (FREESTYLE LISET 14 DAY SENSOR) [facility] [place] Indications: Uncontrolled type 2 diabetes mellitus with hyperglycemia (HCC) Inject 1 actuation into the skin 4 times daily (before meals and nightly) 6 each 3 04/13/2022 Active Continuous Glucose Computational Biologist (DEXCOM G7 ASSEMBLER CONVERTIBLE TOP) WALKER (4 sources) Start: 02-20-2025 Continuous Glu cose Computational Biologist (DEXCOM G7 ASSEMBLER CONVERTIBLE TOP) WALKER Indications: Uncontrolled type 2 diabetes mellitus with hyperglycemia (HCC) , Type 2 diabetes mellitus with other circulatory complication, with long-term current use of insulin (HCC) 1 Device by Does not apply route daily 1 each 02/20/2025 Suspended Start: 02-20-2025 Continuous Glu cose Computational Biologist (DEXCOM G7 ASSEMBLER CONVERTIBLE TOP) WALKER Indications: Uncontrolled type 2 diabetes mellitus with hyperglycemia (HCC) , Type 2 diabetes mellitus with other circulatory complication, with long-term current use of insulin (HCC) 1 Device by Does not apply route daily 1 each 02/20/2025 Active Continuous Glucose Computational Biologist (FREESTYLE LISET 2 READER) WALKER (10 sources) Start: 12-12-2024 Continuous Glu cose Computational Biologist (FREESTYLE LISET 2 READER) WALKER Indications: Uncontrolled type 2 diabetes mellitus with hyperglycemia (HCC) USE DIRECTED FOUR TIMES DAILY BEFORE MEALS and NIGHTLY 1 each 12/12/2024 Suspended Start: 12-12-2024 Continuous Glu cose Computational Biologist (FREESTYLE LISET 2 READER) WALKER Indications: Uncontrolled type 2 diabetes mellitus with hyperglycemia (HCC) USE DIRECTED FOUR TIMES DAILY BEFORE MEALS and NIGHTLY 1 each 12/12/2024 Active Start: 09-15-2024 Continuous Glu cose Computational Biologist (FREESTYLE LISET 2 READER) WALKER Indications: Uncontrolled type 2 diabetes mellitus with hyperglycemia (HCC) USE DIRECTED FOUR TIMES DAILY BEFORE MEALS and NIGHTLY 1 each 09/15/2024 Active Start: 05-20-2024 Continuous Glu cose Computational Biologist (FREESTYLE LISET 2 READER) WALKER Indications: Uncontrolled type 2 diabetes mellitus with hyperglycemia (HCC) USE DIRECTED FOUR TIMES DAILY BEFORE MEALS and NIGHTLY 1 each 05/20/2024 Active Continuous Glucose Sensor (DEXCOM G7 SENSOR) [facility] [place] (4 sources) Start: 02-20-2025 Continuous Glu cose Sensor (DEXCOM G7 SENSOR) [facility] [place] Indications: Uncontrolled type 2 diabetes mellitus with hyperglycemia (HCC) , Type 2 diabetes mellitus with other circulatory complication, with long-term current use of insulin (HCC) 1 Device by Does not apply route every 10 days 3 each 02/20/2025 Suspended Start: 02-20-2025 Continuous Glu cose Sensor (DEXCOM G7 SENSOR) [facility] [place] Indications: Uncontrolled type 2 diabetes mellitus with hyperglycemia (HCC) , Type 2 diabetes mellitus with other circulatory complication, with long-term current use of insulin (HCC) 1 Device by Does not apply route every 10 days 3 each 02/20/2025 Active Continuous Glucose Sensor (FREESTYLE LISET 2 SENSOR) [facility] [place] (10 sources) Start: 12-12-2024 Continuous Glu cose Sensor (FREESTYLE LISET 2 SENSOR) [facility] [place] Indications: Uncontrolled type 2 diabetes mellitus with hyperglycemia (HCC) APPLY 1 SENSOR TO BACK OF UPPER ARM. REMOVE AND REPLACE EVERY 14 DAYS. USE WITH DEVICE TO MONITOR BLOOD SUGAR 2 each 12/12/2024 Suspended Start: 12-12-2024 Continuous Glu cose Sensor (FREESTYLE LISET 2 SENSOR) [facility] [place] Indications: Uncontrolled type 2 diabetes mellitus with hyperglycemia (HCC) APPLY 1 SENSOR TO BACK OF UPPER ARM. REMOVE AND REPLACE EVERY 14 DAYS. USE WITH DEVICE TO MONITOR BLOOD SUGAR 2 each 12/12/2024 Active Start: 09-15-2024 Continuous Glu cose Sensor (FREESTYLE LISET 2 SENSOR) [facility] [place] Indications: Uncontrolled type 2 diabetes mellitus with hyperglycemia (HCC) APPLY 1 SENSOR TO BACK OF UPPER ARM. REMOVE AND REPLACE EVERY 14 DAYS. USE WITH DEVICE TO MONITOR BLOOD SUGAR 2 each 09/15/2024 Active Start: 05-20-2024 Continuous Glu cose Sensor (FREESTYLE LISET 2 SENSOR) [facility] [place] Indications: Uncontrolled type 2 diabetes mellitus with hyperglycemia (HCC) APPLY 1 SENSOR TO BACK OF UPPER ARM. REMOVE AND REPLACE EVERY 14 DAYS. USE WITH DEVICE TO MONITOR BLOOD SUGAR 2 each 10 05/20/2024 Active 1 ml dexamethasone phosphate 10 mg/ml injection (1 source) Corticosteroid Start: 03-29-2024 End: 03-29-2024 dexAMETHasone (PF) (DECADRON) injection 8 mg diazePAM 5 mg oral tablet (1 source) Benzodiazepine Start: 03-29-2024 End: 03-30-2024 take 1 dose by mouth once 5 mg, Oral, ONCE PRN, 1 dose, Starting on Mon03/29/24 at 1141, Until 03/30/24 at 1055, MRI Administer 1 hour before MRI trip. Dulaglutide (TRULICITY) 3 MG/0.5ML SOPN (2 sources) Start: 12-10-2023 End: 04-02-2024 Dulaglutide (TRULICITY) 3 MG/0.5ML SOPN Indications: Uncontrolled type 2 diabetes mellitus with hyperglycemia (HCC) Inject Trulicity 3 mg once weekly 10 Adjustable Dose Pre-filled Pen Syringe 1 12/10/2023 04/02/2024 Discontinued (Stop Taking at Discharge) Start: 11-29-2022 Dulaglutide (T RULICITY) 3 MG/0.5ML SOPN Indications: Uncontrolled type 2 diabetes mellitus with hyperglycemia (HCC) Inject Trulicity 3 mg once weekly 12 Adjustable Dose Pre-filled Pen Syringe 1 11/29/2022 Active 0.4 ml enoxaparin sodium 100 mg/ml prefilled syringe (9 sources) Low Molecular Weight Heparin Start: 03-29-2024 End: 03-30-2024 enoxaparin (LOVENOX) injection 40 mg Start: 03-19-2024 End: 03-27-2024 Start: 04-03-2022 enoxaparin (LO VENOX) injection 40 mg enoxaparin (LOVE NOX) 300 MG/3ML injection Inject 0.4 mLs into the skin daily Active ezetimibe 10 mg oral tablet (2 sources) Dietary Cholesterol Absorption Inhibitor Start: 03-16-2024 End: 03-18-2024 folic acid 1 mg oral tablet (2 sources) Start: 03-17-2024 End: 03-18-2024 4 ml furosemide 10 mg/ml injection (8 sources) Loop Diuretic Start: 03-16-2024 End: 03-16-2024 Start: 06-29-2022 take 1 tablet by mouth once da stacy furosemide (LASIX) 20 MG tablet Take 1 tablet by mouth daily 30 tablet 5 06/29/2022 Active Start: 04-05-2022 furosemide (LA SIX) injection 40 mg Start: 04-03-2022 End: 04-04-2022 take 40 mg intravenously every eight hours 40 mg, IntraVENous, Every 8 hours, 3 doses, First dose on Mon04/03/22 at 1600, Last dose on Mon04/04/22 at 0800 Start: 04-03-2022 End: 04-03-2022 furosemide (LASIX) injection 40 mg Start: 08-13-2021 End: 12-11-2021 Lasix 40 mg oral tablet Dose : 40 mg = 1 tab(s), Oral, qDay, # 30 tab(s), 3 Refill(s), Pharmacy: [facility] #[id number], 160, cm, 08/10/21 11:46:00 EST, Height, kg, 08/10/21 11:46:00 EST, Dosing Weight Start Date: 08/13/21 Stop Date: 12/11/21 Status: Ordered glucagon (rdna) 1 mg injection (4 sources) Antihypoglycemic Agent Start: 03-29-2024 inject 1 mg by subcutaneous injection every hour as needed 1 mg, SubCUTAneous, PRN, Starting on Mon03/29/24 at 1204, Until Discontinued, Low blood sugar, Blood glucose LESS THAN 70 mg/dL and patient NOT ALERT or NPO and does not have IV access. After administration, attempt intravenous access and start dextrose 10% at 100 mL/hr. Repeat blood glucose in 15 minutes x 2 and notify provider. Start: 03-15-2024 End: 03-27-2024 Start: 04-03-2022 glucagon (rDNA ) injection 1 mg glucose monitoring kit (4 sources) Start: 02-20-2025 glucose monito ring kit Indications: Uncontrolled type 2 diabetes mellitus with hyperglycemia (HCC) , Type 2 diabetes mellitus with other circulatory complication, with long-term current use of insulin (HCC) 1 kit by Does not apply route daily 1 kit 02/20/2025 Suspended Start: 02-20-2025 glucose monito ring kit Indications: Uncontrolled type 2 diabetes mellitus with hyperglycemia (HCC) , Type 2 diabetes mellitus with other circulatory complication, with long-term current use of insulin (HCC) 1 kit by Does not apply route daily 1 kit 02/20/2025 Active Handicap Placard MISC (12 sources) Start: 12-12-[address] MISC Indications: Arthritis by Does not apply route Good for 5 years 1 each 12/12/2024 Suspended Start: 12-12-[address] MISC Indications: Arthritis by Does not apply route Good for 5 years 1 each 12/12/2024 Active Start: 11-30-[address] MISC Indications: Arthritis by Does not apply route Good for 5 years 1 each 11/30/2022 Active Start: 11-30-[address] MISC Indications: Arthritis by Does not apply route Good for 5 years 1 each 0 11/30/2022 Suspended Start: 11-30-[address] MISC Indications: Arthritis by Does not apply route Good for 5 years 1 each 0 11/30/2022 Active 250 ml heparin sodium, porcine 100 unt/ml injection (6 sources) Unfractionated Heparin, Anti-coagulant Start: 03-15-2024 End: 03-16-2024 Start: 03-15-2024 End: 03-16-2024 hydrOXYzine pamoate 25 mg oral capsule (2 sources) Antihistamine Start: 09-08-2013 End: 10-10-2013 take 1 capsule by mouth four times daily as needed Hydroxyzine Pamoate 25 MG capsule Discontinued 25 mg PO 4 TIMES DAILY NEEDED as needed for ITCHING 30 0 September 08, 2013 1:00am October 10, 2013 9:56pm insulin glargine 100 unt/ml injectable solution (20 sources) Insulin Analog Start: 06-23-2025 insulin glargi ne (LANTUS) 100 UNIT/ML injection vial Indications: Type 2 Diabetes Mellitus Inject 26 Units into the skin nightly Indications: Type 2 Diabetes 10 mL 2 06/23/2025 Suspended Start: 02-20-2025 insulin glargi ne (LANTUS) 100 UNIT/ML injection vial Indications: Type 2 Diabetes Mellitus Inject 26 Units into the skin nightly Indications: Type 2 Diabetes 10 mL 2 02/20/2025 Active Start: 12-12-2024 insulin glargi ne (LANTUS) 100 UNIT/ML injection vial Indications: Type 2 Diabetes Mellitus Inject 26 Units into the skin nightly Indications: Type 2 Diabetes 10 mL 2 12/12/2024 Active Start: 07-18-2024 Start: 03-29-2024 insulin glargi ne (LANTUS) injection vial 25 Units Start: 03-17-2024 End: 03-27-2025 Start: 03-15-2024 End: 03-17-2024 Start: 04-04-2022 insulin glargi ne (LANTUS) injection vial 12 Units insulin glargine (LANTUS) 100 UNIT/ML injection vial Indications: Type 2 Diabetes Mellitus Inject 26 Units into the skin nightly Indications: Type 2 Diabetes Active insulin glargine (LANTUS) 100 UNIT/ML injection vial Inject 26 Units into the skin nightly 0 Suspended insulin lispro 100 unt/ml injectable solution (20 sources) Insulin Analog Start: 06-23-2025 insulin lispro (HUMALOG,ADMELOG) 100 UNIT/ML SOLN injection vial Indications: Type 2 Diabetes Mellitus Inject 0-6 Units into the skin 3 times daily (with meals) Indications: Type 2 Diabetes Inject as per sliding scale: If 151-200=2u; 201-250=3u; 251-300=4u; 301-350=5u; 351-400=6u & call provider. 10 mL 5 06/23/2025 Suspended Start: 02-20-2025 insulin lispro (HUMALOG,ADMELOG) 100 UNIT/ML SOLN injection vial Indications: Type 2 Diabetes Mellitus Inject 0-6 Units into the skin 3 times daily (with meals) Indications: Type 2 Diabetes Inject as per sliding scale: If 151-200=2u; 201-250=3u; 251-300=4u; 301-350=5u; 351-400=6u & call provider. 10 mL 5 02/20/2025 Active Start: 12-12-2024 insulin lispro (HUMALOG,ADMELOG) 100 UNIT/ML SOLN injection vial Indications: Type 2 Diabetes Mellitus Inject 0-6 Units into the skin 3 times daily (with meals) Indications: Type 2 Diabetes Inject as per sliding scale: If 151-200=2u; 201-250=3u; 251-300=4u; 301-350=5u; 351-400=6u & call provider. 10 mL 5 12/12/2024 Active Start: 03-29-2024 insulin lispro (HUMALOG,ADMELOG) injection vial 2 Units Start: 03-29-2024 0-4 Units, Sub CUTAneous, NIGHTLY, First dose on Mon03/29/24 at 2100, Until Discontinued If continuous tube feedings/TPN/NPO, give correction dose based on result, no reduction in dose. If eating or bolus tube feeding: Corrective Bedtime Algorithm Glucose: Dose: 70-299 No Insulin 300-349 4 Units Over 349 4 Units and notify physician Start: 03-29-2024 insulin lispro (HUMALOG,ADMELOG) 100 UNIT/ML SOLN injection vial Inject 0-8 Units into the skin 3 times daily (with meals) 04/02/2024 Active Start: 03-29-2024 5 Units (round ed from 5.01 Units = 0.05 Units/kg 100.2 kg), SubCUTAneous, 3 TIMES DAILY WITH MEALS, First dose on Mon03/29/24 at 1230, Until Discontinued Give prior to [id number] only when tray is in room and patient eating 50% of meal. If meal intake is uncertain then immediate post meal injection is acceptable. Give prior to bolus tube feedings. Hold if patient is NPO or if pre-meal blood glucose is less than or equal to 70 mg/dL. Start: 03-17-2024 End: 03-27-2025 Start: 04-03-2022 insulin lispro (HUMALOG) injection vial 0-3 Units Start: 04-03-2022 insulin lispro (HUMALOG) injection vial 5 Units iopamidol (ISOVUE-300) 61 % injection 100 mL (1 source) Start: 04-05-2022 End: 04-05-2022 iopamidol (ISOVUE-300) 61 % injection 100 mL iopamidol (ISOVUE-300) 61 % injection 75 mL (1 source) Start: 04-03-2022 End: 04-03-2022 iopamidol (ISOVUE-300) 61 % injection 75 mL iopamidol (ISOVUE-370) 76 % injection 75 mL (1 source) Start: 03-29-2024 End: 03-29-2024 iopamidol (ISOVUE-370) 76 % injection 75 mL lisinopril 2.5 mg oral tablet (2 sources) Angiotensin Converting Enzyme Inhibitor Start: 09-02-2013 End: 07-18-2024 take 1 tablet by mouth twice daily Lisinopril 2.5 MG tablet Discontinued 2.5 mg PO TWICE A DAY September 02, 2013 1:00am July 18, 2024 9:24pm losartan potassium 50 mg oral tablet (20 sources) Angiotensin 2 Receptor Nando Start: 04-02-2024 losartan (COZAAR) tablet 25 mg Start: 03-28-2024 End: 03-28-2025 take 1 tablet by mouth once daily losartan (COZAAR) 50 MG tablet Indications: Hypertension Take 1 tablet by mouth daily Indications: High Blood Pressure 90 tablet 1 06/10/2025 Suspended Start: 03-17-2024 End: 03-27-2024 Start: 03-15-2024 End: 03-17-2024 Start: 03-20-2023 End: 04-02-2024 take 1 tablet by mouth once daily losartan (COZAAR) 100 MG tablet Indications: Hypertension, unspecified type Take 1 tablet by mouth daily 90 tablet 1 03/20/2023 04/02/2024 Discontinued (Stop Taking at Discharge) Start: 11-28-2022 take 1 tablet by honey once daily losartan (COZAAR) 100 MG tablet Indications: Hypertension, unspecified type Take 1 tablet by mouth daily 90 tablet 1 11/28/2022 Active Start: 04-04-2022 losartan (COZA AR) tablet 100 mg Start: 08-13-2021 End: 12-11-2021 losartan 100 mg oral tablet Dose : 100 mg = 1 tab(s), Oral, qDay, # 30 tab(s), 3 Refill(s), Pharmacy: [id number], 160, cm, 08/10/21 11:46:00 EST, Height, kg, 08/10/21 11:46:00 EST, Dosing Weight Start Date: 08/13/21 Stop Date: 12/11/21 Status: Ordered 50 ml magnesium sulfate 40 m g/ml injection (3 sources) Start: 03-17-2024 End: 03-17-2024 Start: 04-03-2022 End: 04-03-2022 magnesium sulfate 2000 mg in 50 mL IVPB premix meclizine hydrochloride 12.5 mg oral tablet (1 source) Antiemetic Start: 07-20-2024 take 1 tablet by mouth twice daily as needed for dizziness melatonin 5 mg oral tablet (2 sources) Start: 03-16-2024 End: 03-18-2024 meloxicam 7.5 mg oral tablet (2 sources) Nonsteroidal Anti-inflammatory Drug Start: 09-02-2013 End: 10-10-2013 take 1 tablet by mouth once daily Meloxicam 7.5 MG tablet Discontinued 7.5 mg PO DAILY September 02, 2013 1:00am October 10, 2013 9:55pm 24 hr metFORMIN hydrochloride 500 mg extended release oral tablet (3 sources) Biguanide Start: 07-20-2023 End: 03-29-2024 take 1 tablet by mouth twice daily at mealtime metFORMIN (GLUCOPHAGE-XR) 500 MG extended release tablet Indications: Uncontrolled type 2 diabetes mellitus with hyperglycemia (HCC) TAKE ONE (1) TABLET BY MOUTH TWICE DAILY WITH MEALS 60 tablet 07/20/2023 03/29/2024 Discontinued (LIST CLEANUP) Start: 11-28-2022 take 1 tablet by honey th twice daily before mealtime metFORMIN (GLUCOPHAGE XR) 500 MG extended release tablet Indications: Uncontrolled type 2 diabetes mellitus with hyperglycemia (HCC) Take 1 tablet by mouth 2 times daily (before meals) May substitute for generic or covered medication 180 tablet 1 11/28/2022 Active Start: 04-06-2022 metFORMIN (GLU COPHAGE) 500 MG tablet Start 04/08 due to heart cath 60 tablet 1 04/06/2022 Active methylPREDNISolone 125 mg injection (1 source) Corticosteroid Start: 04-03-2022 End: 04-03-2022 methylPREDNISolone sodium (SOLU-MEDROL) injection 125 mg 24 hr metoprolol succinate 25 mg extended release oral tablet (2 sources) beta-Adrenergic Nando Start: 03-15-2024 End: 03-17-2024 1 ml naloxone hydrochloride 0.4 mg/ml injection (2 sources) Opioid Antagonist Start: 03-15-2024 End: 03-27-2024 Nutritional Supplements (GLUCOSE MANAGEMENT) TABS (11 sources) Start: 02-20-2025 take 1 tablet by mouth once daily as needed Nutritional Supplements (GLUCOSE MANAGEMENT) TABS Take 1 tablet by mouth daily as needed (low blood sugar) 30 tablet 2 02/20/2025 Suspended Start: 02-20-2025 take 1 tablet by honey th once daily as needed Nutritional Supplements (GLUCOSE MANAGEMENT) TABS Take 1 tablet by mouth daily as needed (low blood sugar) 30 tablet 2 02/20/2025 Active Start: 09-03-2023 take 1 tablet by honey th once daily as needed Nutritional Supplements (GLUCOSE MANAGEMENT) TABS Indications: Type 2 diabetes mellitus without complication, without long-term current use of insulin Take 1 tablet by mouth daily as needed (low blood sugar) 30 tablet 2 09/03/2023 Active Start: 09-03-2023 take 1 tablet by honey th once daily as needed Nutritional Supplements (GLUCOSE MANAGEMENT) TABS Indications: Type 2 diabetes mellitus without complication, without long-term current use of insulin (HCC) Take 1 tablet by mouth daily as needed (low blood sugar) 30 tablet 2 09/03/2023 Active Start: 09-03-2023 take 1 tablet by honey th once daily as needed Nutritional Supplements (GLUCOSE MANAGEMENT) TABS Indications: Type 2 diabetes mellitus without complication, without long-term current use of insulin (HCC) Take 1 tablet by mouth daily as needed (low blood sugar) 30 tablet 2 09/03/2023 Suspended pantoprazole 40 mg delayed release oral tablet (2 sources) Proton Pump Inhibitor Start: 03-16-2024 End: 03-18-2024 permethrin 10 mg/ml medicated shampoo (4 sources) Pyrethroid Start: 09-07-2013 End: 10-10-2013 apply 60 mL topically once Permethrin (Nix Creme Rinse) 60 ML bottle Discontinued 60 mL TOPICAL ONE TIME 2 0 September 08, 2013 9:42am October 10, 2013 9:55pm Start: 09-07-2013 End: 10-10-2013 apply 60 mL topically once Permethrin (Nix Creme Rinse ) 60 ML bottle Discontinued 60 ML TOPICAL ONE TIME 2 September 08, 2013 8:42am October 10, 2013 8:55pm piperacillin-tazobactam (ZOSYN) 4,500 mg in sodium chloride 0.9 % 100 mL IVPB (mini-bag) (1 source) Start: 03-29-2024 End: 03-29-2024 piperacillin-tazobactam (ZOSYN) 4,500 mg in sodium chloride 0.9 % 100 mL IVPB (mini-bag) microencapsulated potassium chloride 20 meq extended release oral tablet (2 sources) Start: 12-29-2022 End: 03-29-2024 take 1 tablet by mouth once daily potassium chloride (KLOR-CON M) 20 MEQ extended release tablet Take 1 tablet by mouth daily 90 tablet 1 12/29/2022 03/29/2024 Discontinued (LIST CLEANUP) Start: 04-04-2022 End: 04-04-2022 potassium chloride (KLOR-CON M) extended release tablet 40 mEq rOPINIRole 0.5 mg oral tablet (8 sources) Nonergot Dopamine Agonist Start: 07-10-2025 take 1 tablet by mouth three times daily rOPINIRole (REQUIP) 0.5 MG tablet Indications: RLS (restless legs syndrome) Take 1 tablet by mouth 3 times daily 270 tablet 1 07/10/2025 Suspended Start: 12-12-2024 take 1 tablet by honey th three times daily rOPINIRole (REQUIP) 0.5 MG tablet Indications: RLS (restless legs syndrome) Take 1 tablet by mouth 3 times daily 270 tablet 1 12/12/2024 Active Start: 07-18-2024 End: 07-18-2024 Ropinirole 0.25 mg tablet Discontinued PO July 18, 2024 12:00am July 18, 2024 9:24pm Start: 07-18-2024 take 1 tablet by honey th twice daily rosuvastatin calcium 10 mg oral tablet (2 sources) HMG-CoA Reductase Inhibitor Start: 03-15-2024 End: 03-27-2024 sertraline 25 mg oral tablet (7 sources) Serotonin Reuptake Inhibitor Start: 06-10-2025 take 1 tablet by mouth once daily sertraline (ZOLOFT) 25 MG tablet Indications: Anxiety Take 1 tablet by mouth daily 90 tablet 1 06/10/2025 Suspended Start: 12-12-2024 take 1 tablet by honey th once daily sertraline (ZOLOFT) 25 MG tablet Indications: Anxiety Take 1 tablet by mouth daily 90 tablet 1 12/12/2024 Active Start: 07-18-2024 take 1 tablet by honey th twice daily spironolactone 25 mg oral ta blet (7 sources) Aldosterone Antagonist Start: 06-12-2023 End: 03-29-2024 Start: 11-30-2022 take 1 tablet by honey th once daily spironolactone (ALDACTONE) 25 MG tablet Indications: Chronic systolic (congestive) heart failure (HCC) Take 1 tablet by mouth daily 30 tablet 5 11/30/2022 Active Start: 04-04-2022 spironolactone (ALDACTONE) tablet 25 mg Start: 08-13-2021 End: 12-11-2021 Aldactone 50 mg oral tablet Dose : 50 mg = 1 tab(s), Oral, qDayM, # 30 tab(s), 3 Refill(s), Pharmacy: [facility] #[facility], 160, cm, 08/10/21 11:46:00 EST, Height, kg, 08/10/21 11:46:00 EST, Dosing Weight Start Date: 08/13/21 Stop Date: 12/11/21 Status: Ordered sulfamethoxazole 800 mg / trimethoprim 160 mg oral tablet (6 sources) Dihydrofolate Reductase Inhibitor Antibacterial, Sulfonamide Antimicrobial Start: 09-14-2023 End: 07-18-2024 Sulfamethoxazole-Trimethopri m (Bactrim Ds) 800-160 mg tablet Discontinued 1 {tbl} PO TWICE A DAY 14 7 September 14, 2023 1:00am July 18, 2024 9:24pm Start: 09-08-2013 End: 10-10-2013 Sulfamethoxazole-Trimethopri m 1 TABLET tablet Discontinued 2 {tbl} PO TWICE A DAY September 08, 2013 10:08am October 10, 2013 9:54pm Start: 09-08-2013 End: 10-10-2013 take 2 tablets by mouth twice daily Sulfamethoxazole-Trimethoprim Discontinu ed 2 TABLET PO TWICE A DAY September 08, 2013 9:08am October 10, 2013 8:54pm thiamine 100 mg oral tablet (2 sources) Start: 03-17-2024 End: 03-18-2024 ticagrelor 90 mg oral tablet (17 sources) Start: 07-10-2025 take 1 tablet by mouth twice daily ticagrelor (BRILINTA) 90 MG TABS tablet Indications: Hypertension Take 1 tablet by mouth 2 times daily Indications: High Blood Pressure 180 tablet 1 07/10/2025 Suspended Start: 03-16-2024 End: 03-16-2025 take 1 tablet by mouth twice daily Tirzepatide (MOUNJARO) 2.5 MG/0.5ML SOAJ pen (4 sources) Start: 06-23-2025 Tirzepatide (M OUNJARO) 2.5 MG/0.5ML SOAJ pen Indications: Uncontrolled type 2 diabetes mellitus with hyperglycemia (HCC) Inject 2.5 mg into the skin every 7 days 2 mL 5 06/23/2025 Suspended Start: 02-20-2025 Tirzepatide (M OUNJARO) 2.5 MG/0.5ML SOAJ pen Indications: Uncontrolled type 2 diabetes mellitus with hyperglycemia (HCC) Inject 2.5 mg into the skin every 7 days 2 mL 2 02/20/2025 Active (2 sources) Start: 03-19-2024 End: 03-19-2024 (6 sources) Start: 03-17-2024 End: 03-17-2024 Start: 03-16-2024 End: 03-27-2024 take 650 mg by mouth every four hours as needed for pain [Order 1 Start] Name: acetaminophen (Tylenol) tablet 650 mg Signed Summary: 650 mg, Oral, Every 4 hours PRN, mild pain (1-3), Starting on 03/16/24 at 1923, If inadequate response within 60 minutes, proceed to next-line agent for same PRN reason or contact provider if no further options ordered. [Order 1 End] [Order 2 Start] Name: Acetaminophen (Tylenol) 650 MG/20.3ML solution 650 mg Signed Summary: 650 mg, Oral, Every 4 hours PRN, mild pain (1-3), Starting on 03/16/24 at 1923, Give oral liquid if patient prefers or per feeding tube if present. If inadequate response within 60 minutes, proceed to next-line agent for same PRN reason or contact provider if no further options ordered. [Order 2 End] [Order 3 Start] Name: acetaminophen (Tylenol) suppository 650 mg Signed Summary: 650 mg, Rectal, Every 4 hours PRN, mild pain (1-3), Starting on Mon03/16/24 at 1923, Give AZ if unable to administer by mouth or feeding tube. If inadequate response within 60 minutes, proceed to next-line agent for same PRN reason or contact provider if no further options ordered. [Order 3 End] Start: 03-15-2024 End: 03-27-2024 take 4 mg by mouth every eight hours as needed for nausea and vomiting [Order 1 Start] Name: ondansetron ODT (Zofran-ODT) disintegrating tablet 4 mg Signed Summary: 4 mg, Oral, Every 8 hours PRN, nausea, vomiting, Starting on Mon03/15/24 at 1958, 1st Line. If inadequate response within 60 minutes, proceed to next-line agent or contact provider if no further options ordered. Patient should allow tablet to dissolve on tongue. Do not remove from blister pack until just before administering. [Order 1 End] [Order 2 Start] Name: ondansetron (Zofran) injection 4 mg Signed Summary: 4 mg, IntraVENous, Every 6 hours PRN, nausea, vomiting, Starting on Mon03/15/24 at 1958, 1st Line. Give IV if patient is unable to take orally. If inadequate response within 60 minutes, proceed to next-line agent or contact provider if no further options ordered. [Order 2 End] Problems Active Problems Problem Classification Problem Date Documented Da te Episodic/Chronic Acute bronchitis (1 source) Respiratory syncytial virus bronchitis; Translations: [Acute bronchitis due to respiratory syncytial virus] 11-10-2024 Episodic Acute myocardial infarction (9 sources) Myocardial infarction; Translations: [Non-ST elevation (NSTEMI) myocardial infarction] Onset: 03-15-2024 03-16-2024 Chronic Blindness and vision defects (10 sources) Blindness - both eyes; Translations: [Blindness right eye category 5, blindness left eye category 5] Onset: 04-02-2024 04-02-2024 Chronic Chronic kidney disease (6 sources) Chronic kidney disease stage 3; Translations: [Stage 3 chronic kidney disease, unspecified whether stage 3a or 3b CKD] Onset: 12-12-2024 12-12-2024 Chronic Chronic obstructive pulmonary disease and bronchiectasis (6 sources) Chronic obstructive lung disease; Translations: [Chronic obstructive pulmonary disease, unspecified] Onset: 12-12-2024 12-12-2024 Chronic Conduction disorders (1 source) Device in situ; Translations: [Encounter for adjustment and management of other cardiac device] 05-28-2025 Chronic Congestive heart failure; nonhypertensive (20 sources) Systolic heart failure; Translations: [Unspecified systolic (congestive) heart failure] Onset: 08-10-2021 Chronic Coronary atherosclerosis and other heart disease (3 sources) History of non-ST segment elevation myocardial infarction; Translations: [Old myocardial infarction] 03-29-2024 Chronic Diabetes mellitus with complications (20 sources) Hyperglycemia due to type 2 diabetes mellitus; Translations: [Type 2 diabetes mellitus with hyperglycemia] Onset: 03-18-2024 Resolved: 08-17-2022 Chronic Diabetes mellitus without complication (20 sources) Type 2 diabetes mellitus without complication; Translations: [Type 2 diabetes mellitus without complications] Onset: 08-10-2021 Chronic Diabetes mellitus without complication (3 sources) Hyperglycemia; Translations: [Hyperglycemia, unspecified] 09-16-2023 Episodic Disorders of lipid metabolism (1 source) Hyperlipidemia; Translations: [Hyperlipidemia, unspecified] 07-28-2024 Chronic Essential hypertension (6 sources) Essential hypertension; Translations: [Essential (primary) hypertension] Onset: 08-13-2021 Chronic Headache; including migraine (2 sources) Acute headache; Translations: [Acute nonintractable headache, unspecified headache type] 03-29-2024 Episodic Headache; including migraine (1 source) Headache; including migraine; Translations: [Headache, unspecified] Onset: 07-17-2025 Hypertension with complications and secondary hypertension (3 sources) Hypertensive emergency; Translations: [Hypertensive emergency] Onset: 08-09-2021 Chronic Late effects of cerebrovascular disease (10 sources) 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; Translations: [Other paralytic syndrome following cerebral infarction, bilateral] Onset: 04-02-2024 04-02-2024 Chronic Malaise and fatigue (1 source) Other fatigue; Translations: [Fatigue, unspecified type] Onset: 01-20-2025 Episodic Other aftercare (1 source) Long-term current use of anticoagulant; Translations: [senior care (current) use of anticoagulants] 08-16-2024 Episodic Other circulatory disease (2 sources) Presence of other cardiac implants and grafts; Translations: [Presence of other cardiac implants and grafts] Onset: 04-22-2025 Chronic Other gastrointestinal disorders (1 source) Constipation, unspecified; Translations: [Constipation, unspecified] Onset: 08-09-2021 Episodic Other hematologic conditions (1 source) Abnormal finding on evaluation procedure; Translations: [Other specified abnormalities of plasma proteins] Onset: 08-09-2021 Episodic Other infections; including parasitic (2 sources) Pediculosis capitis; Translations: [Pediculosis due to Pediculus humanus capitis] 09-08-2013 Episodic Other inflammatory condition of skin (14 sources) Psoriatic arthritis; Translations: [Arthropathic psoriasis, unspecified] Onset: 11-30-2022 11-30-2022 Chronic Other inflammatory condition of skin (2 sources) Psoriasis; Translations: [Psoriasis, unspecified] 09-08-2013 Chronic Other lower respiratory disease (1 source) Solitary nodule of lung; Translations: [Solitary pulmonary nodule] Onset: 08-09-2021 Episodic Other non-traumatic joint disorders (2 sources) Shoulder pain; Translations: [Pain in unspecified shoulder] 10-11-2013 Episodic Other nutritional; endocrine; and metabolic disorders (1 source) Morbid obesity; Translations: [Morbid (severe) obesity due to excess calories] Onset: 08-09-2021 Chronic Other nutritional; endocrine; and metabolic disorders (1 source) Body mass index 30+ - obesity; Translations: [Obesity, unspecified] 07-28-2024 Chronic Other screening for suspected conditions (not mental disorders or infectious disease) (17 sources) Raised cardiac enzyme or marker; Translations: [Other specified abnormal findings of blood chemistry] Onset: 03-29-2024 Resolved: 04-28-2024 04-28-2024 Episodic Bindu-; endo-; and myocarditis; cardiomyopathy (except that caused by tuberculosis or sexually transmitted disease) (1 source) Cardiomyopathy; Translations: [Cardiomyopathy, unspecified] Onset: 08-13-2021 Chronic Residual codes; unclassified (1 source) Edema, generalized; Translations: [Generalized edema] Onset: 08-09-2021 Episodic Residual codes; unclassified (3 sources) Tobacco user; Translations: [Tobacco use] Onset: 08-09-2021 Episodic Residual codes; unclassified (1 source) History of clinical finding in subject; Translations: [Patient's noncompliance with other medical treatment and regimen] Episodic Residual codes; unclassified (4 sources) Altered mental status; Translations: [Altered mental status, unspecified] Onset: 03-18-2024 03-18-2024 Episodic Residual codes; unclassified (1 source) Device in situ 05-29-2025 Episodic Screening and history of mental health and substance abuse codes (2 sources) Tobacco use and exposure - finding; Translations: [Personal history of nicotine dependence] Onset: 06-30-2025 Episodic Skin and subcutaneous tissue infections (2 sources) Cellulitis; Translations: [Cellulitis, unspecified] 09-08-2013 Episodic Substance-related disorders (1 source) Tobacco dependence syndrome; Translations: [Nicotine dependence, unspecified, uncomplicated] Chronic Syncope (1 source) Near syncope; Translations: [Syncope and collapse] Episodic Urinary tract infections (2 sources) Acute cystitis; Translations: [Acute cystitis without hematuria] 09-16-2023 Episodic Past or Other Problems Problem Classification Problem Date Documented Date Episodic/Chronic Acute cerebrovascular disease (20 sources) Lacunar infarction; 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] Onset: 03-18-2024 Resolved: 06-04-2025 03-18-2024 Chronic Blindness and vision defects (13 sources) Balint syndrome; 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] Onset: 03-31-2024 03-31-2024 Episodic Cancer of cervix (4 sources) Atypical squamous cells of undetermined significance on cervical Papanicolaou smear; Translations: [Atypical squamous cells of undetermined significance on cytologic smear of cervix (ASC-US)] Onset: 01-29-2014 03-16-2024 Episodic Conditions associated with dizziness or vertigo (3 sources) Dizziness; Translations: [Dizziness and giddiness] Onset: 11-08-2024 07-18-2024 Episodic Other circulatory disease (2 sources) History of cerebrovascular accident; Translations: [Personal history of transient ischemic attack (TIA), and cerebral infarction without residual deficits] Onset: 03-29-2024 06-04-2025 Episodic Other eye disorders (2 sources) Corneal ulcer; Translations: [Unspecified corneal ulcer, unspecified eye] Onset: 12-30-2016 03-16-2024 Episodic Other lower respiratory disease (1 source) Shortness of breath; Translations: [Shortness of breath] Onset: 11-17-2024 Episodic Septicemia (except in labor) (13 sources) Sepsis; Translations: [Sepsis, unspecified organism] Onset: 03-29-2024 03-29-2024 Episodic Viral infection (1 source) Disease caused by 2019-nCoV; Translations: [COVID-19] Onset: 08-13-2021 Results Test Name Value Interpretation Reference Range Facility Urine Cultureon 07-24-2025 [facility] Mixed Gram Positive Organisms [place] Count 11,000-25,000 [facility] Mixed contaminants. Submit a new specimen if indicated. Normal [facility] Comment on above: Performed By: #### L 500.2500, L100.0100 #### [facility] Laboratory [address] [place], [address] 12 Lead EKGon 07-23-2025 12 Lead EKG [facility] [address] [place] [address] 12 Lead EKG 07/23/25 1300 MR#: [id number] Acct: [id number] Name: NEIL WELLINGTON Rep #: [id number] : 1970 54 From: Eddy Puckett MD Attending Dr: Status: DEP ER Ordering Dr: Guero Gomez MD Date: 07/23/25 Location: ED Sex: F C Admitted: Test Reason : Blood Pressure : */* mmHG Vent. Rate : 65 BPM Atrial Rate : 65 BPM P-R Int : 144 ms QRS Dur : 88 ms QT Int : 462 ms P-R-T Axes : -9 -32 105 degrees QTcB Int : 480 ms Normal sinus rhythm Left axis deviation T wave abnormality, consider lateral ischemia QTcB >= 480 msec Abnormal ECG Confirmed by EDDY PUCKETT MD ([id number]), assignment editor LAUREN AKINS ([id number]) on 07/25/2025 7:08:43 AM Referred By: BB Confirmed By: EDDY PUCKETT MD 07/25/25 0708 Date Eddy Puckett MD CC: REBECCA Mcdermott; Dr. uGero Gomez MD Signed Normal [facility] Basic Metabolic Profile (BMP )on 07-23-2025 BUN/CRE 14.5 RATIO Normal 10-[address] [facility] Comment on above: Performed By: #### L 400.0001 #### [facility] [address] [place], [address] Calcium [Mass/Vol] 9.1 mg/dL Normal 7.6-11.0 [facility] Comment on above: Performed By: #### L 400.0001 #### [facility] [address] [place], [address] Chloride [Moles/Vol] 102 mmol/L Normal 98-108 [facility] Comment on above: Performed By: #### L 400.0001 #### [facility] [address] [place], [address] CO2 [Moles/Vol] 21.6 mmol/L Normal 21.0-32.[address] [facility] Comment on above: Performed By: #### L 400.0001 #### [facility] [address] [place], [address] Creatinine [Mass/Vol] 0.89 mg/dL Normal 0.70-1.20 [facility] Comment on above: Performed By: #### L 400.0001 #### [facility] [address] [place], [address] ECRCL 78.57 ml/min Normal 50-[address] [facility] Comment on above: Performed By: #### L 400.0001 #### [facility] [address] [place], [address] GAP 14 Normal 5-[address] [facility] Comment on above: Performed By: #### L 400.0001 #### [facility] [address] [place], [address] GFR/1.73 sq M.predicted among non-blacks MDRD (S/P/Bld) [Vol rate/Area] 77 mL/min/{1.73_m2} Normal >[address] [facility] Comment on above: Result Comment: mL/m in/1.73m2 CKD-EPI Creatinine Equation (2020) Performed By: #### L 400.0001 #### [facility] [address] [place], [address] Glucose [Mass/Vol] 315 mg/dL High 70-99 [facility] Comment on above: Performed By: #### L 400.0001 #### [facility] [address] [place], [address] Potassium [Moles/Vol] 3.5 mmol/L Normal 3.3-5.1 [facility] Comment on above: Performed By: #### L 400.0001 #### [facility] [address] [place], [address] Sodium [Moles/Vol] 137 mmol/L Normal 133-145 [facility] Comment on above: Performed By: #### L 400.0001 #### [facility] [address] [place], [address] Urea nitrogen [Mass/Vol] 13 mg/dL Normal 4-[address] [facility] Comment on above: Performed By: #### L 400.0001 #### [facility] [address] [place], [address] Bedside Glucoseon 07-23-2025 FINGERSTICK GLU 177 mg/dL High 74-[address] [facility] Comment on above: Result Comment: DENISE CARRINGTON OF PATIENT CARE PER NURSING PROTOCOL Performed By: #### L 501.080 #### [facility] [address] [place], [address] FINGERSTICK GLU 225 mg/dL High 74-[address] [facility] Comment on above: Result Comment: DENISE GEMENT OF PATIENT CARE PER NURSING PROTOCOL Performed By: #### L 501.080 #### [facility] [address] [place], [address] FINGERSTICK GLU 246 mg/dL High 74-[address] [facility] Comment on above: Result Comment: DENISE GEMENT OF PATIENT CARE PER NURSING PROTOCOL Performed By: #### L 400.0001 #### [facility] [address] [place], [address] CBC W/Diff, Automatedon 10-2 -2024 Absolute Lymph 3.42 X10 3/uL Normal 0.83-4.[address] [facility] Comment on above: Performed By: #### L 400.0001 #### [facility] [address] [place], [address] Absolute Neut 7.9 X10 3/uL High 2.0-7.[address] [facility] Comment on above: Performed By: #### L 400.0001 #### [facility] [address] [place], [address] Basophils/100 WBC (Bld) 0.7 % Normal 0-1 [facility] Comment on above: Performed By: #### L 400.0001 #### [facility] [address] [place], [address] Eosinophils/100 WBC (Bld) 2.4 % Normal 0-[address] [facility] Comment on above: Performed By: #### L 400.0001 #### [facility] [address] [place], [address] Erythrocyte distribution width (RBC) [Ratio] 13.3 % Normal 11.6-14.[address] [facility] Comment on above: Performed By: #### L 400.0001 #### [facility] [address] [place], [address] Hematocrit (Bld) [Volume fraction] 43.8 % Normal 37-[address] [facility] Comment on above: Performed By: #### L 400.0001 #### [facility] [address] [place], [address] Hemoglobin (Bld) [Mass/Vol] 14.7 g/dL Normal 12.0-15.[address] [facility] Comment on above: Performed By: #### L 400.0001 #### [facility] [address] [place], [address] IG% 0.400 Normal 0.0-0.[address] [facility] Comment on above: Result Comment: IG% - Immature Granulocytes (promyelocytes, myelocytes and metamyelocytes) > 1% indicates that a LEFT SHIFT is Present. Performed By: #### L 400.0001 #### [facility] [address] [place], [address] Lymphocytes/100 WBC (Bld) 27.1 % Normal 19-[address] [facility] Comment on above: Performed By: #### L 400.0001 #### [facility] [address] [place], [address] MCH (RBC) [Entitic mass] 29.9 pg Normal 27.0-32.[address] [facility] Comment on above: Performed By: #### L 400.0001 #### [facility] [address] [place], [address] MCHC (RBC) [Mass/Vol] 33.6 g/dL Normal 32-36 [facility] Comment on above: Performed By: #### L 400.0001 #### [facility] [address] [place], [address] MCV (RBC) [Entitic vol] 89.2 fL Normal 81-99 [facility] Comment on above: Performed By: #### L 400.0001 #### [facility] [address] [place], [address] Monocytes/100 WBC (Bld) 6.8 % Normal 0-10 [facility] Comment on above: Performed By: #### L 400.0001 #### [facility] [address] [place], [address] Neutrophils/100 WBC (Bld) 62.6 % Normal 47-[address] [facility] Comment on above: Performed By: #### L 400.0001 #### [facility] [address] [place], [address] Nucleated RBC (Bld) [#/Vol] 0 10*3/uL Normal 0-[address] [facility] Comment on above: Performed By: #### L 400.0001 #### [facility] [address] [place], [address] Platelet mean volume (Bld) [Entitic vol] 11.4 fL Normal 6.2-12.[address] [facility] Comment on above: Performed By: #### L 400.0001 #### [facility] [address] [place], [address] Platelets (Bld) [#/Vol] 304 10*3/uL Normal 150-[address] [facility] Comment on above: Performed By: #### L 400.0001 #### [facility] [address] [place], [address] RBC (Bld) [#/Vol] 4.91 10*6/uL Normal 4.2-5.4 [facility] Comment on above: Performed By: #### L 400.0001 #### [facility] [address] [place], [address] RDW SD 43.6 fl Normal 35.1-43.[address] [facility] Comment on above: Performed By: #### L 400.0001 #### [facility] [address] [place], [address] WBC (Bld) [#/Vol] 12.6 10*3/uL High 4.4-11.0 [facility] Comment on above: Performed By: #### L 400.0001 #### [facility] [address] [place], [address] Chest 1 View (Portable)on Chest 1 View (Portable) [facility] Imaging Services [address] [place] [address] Chest 1 View (Portable) MR#: [id number] Acct: [id number] Name: NEIL WELLINGTON Rep #: [id number] : 1970 F 54 From: Teddy Valladares PCP: REBECCA Parra Status: REG ER Study: Chest 1 View (Portable) Date of Exam: 07/23/25 Exam# [id number] Ordering Dr: Guero Gomez MD PROCEDURE: CHEST 1 VIEW (PORTABLE) 07/23/2025 REASON FOR EXAM: DYSPNEA TECHNIQUE: Frontal view of the chest. COMPARISON: Chest x-ray of 11/02/2024. RAD/Chest 1 View (Portable) IMPRESSION: A left-sided loop recorder remains in place. Lungs appear clear. No pleural effusion or pneumothorax is seen. The cardiomediastinal silhouette is stable, without evidence of cardiomegaly. No acute osseous process is seen. No evidence of acute cardiopulmonary disease. Reading Location: [place] [address] CC: WALL CLEANERJanethC Luz Mcdermott; Dr. Guero Gomez MD Charge Auditor: Signed Normal [facility] Emergency Department Summary on 07-23-2025 Emergency Department Summary [facility] Medical Records Department [address] [place] [address] Emergency Department Summary 07/23/25 MR#: [id number] Acct: [id number] Name: NEIL WELLINGTON Rep #: [id number] : 1970 54 From: Guero Gomez MD PCP: CHRISSIE ParraC Status:REG ER Location: ED HPI History of Present Illness Chief Complaint: Hypertension Informant: patient and EMS Narrative Narrative: Patient is a 54-year-old female with a history of DM presenting to the ED with elevated blood pressure and hyperglycemia. - Home health nurse recorded BP of 200/100 mmHg today. - Reports feeling "a little bit lightheaded" and "off balance" today; denies severe symptoms. - Denies dyspnea, chest pain, fever, or other illness although she felt a little short of breath once last night. - Denies dysuria; reports a "normal cough." - Reports polyuria, unsure if it is more than usual. - Denies any recent EtOH or drug use. - Smoker. - Blood glucose measured at 354 mg/dL by EMS. - Has not taken insulin for an unspecified duration; insulin is at a different location, and she is unable to retrieve it. - Takes oral diabetes medication. [facility] Medical History Tobacco abuse Hyperlipidemia History of non-ST elevation myocardial infarction (NSTEMI) Obesity (BMI 30-39.9) Visual disturbance Psoriasis HTN (hypertension) Diabetes Home Medications ???Medication ???Instructions ???Recorded ???Last Taken ???Type HumaLOG KwikPen Insulin See Rx Instructions subcut 3XD Unknown History Held on 11/02/24. DIABETES Instructions: pt hasn't taken med in 2 months, needs refill aspirin 81 mg chewable tablet 1 tab PO DAILY heart health Unknown History Held on 11/02/24. Instructions: pt hasn't taken med in 2 months, needs refill buspirone 7.5 mg tablet 7.5 mg PO BID mental health Unknown History Held on 11/02/24. Instructions: pt hasn't taken med in 2 months, needs refill carvedilol 6.25 mg tablet 6.25 mg PO BID blood pressure 06/26 01/16 Unknown History Held on 11/02/24. Instructions: pt hasn't taken med in 2 months, needs refill empagliflozin 10 mg tablet 10 mg PO DAILY diabetes 07/18/24 U nknown History (Jardiance) Held on 11/02/24. Instructions: pt hasn't taken med in 2 months, needs refill insulin glargine 100 unit/mL (3 26 unit subcut QPM diabetes Unknown History mL) subcutaneous pen (Lantus Solostar U-100 Insulin) Held on 11/02/24. Instructions: pt hasn't taken med in 2 months, needs refill losartan 50 mg tablet 50 mg PO DAILY blood pressure 06/26 01/16 Unknown History ropinirole 0.5 mg tablet 0.5 mg PO TID restless leg 4 Unknown History Held on 11/02/24. Instructions: pt hasn't taken med in 2 months, needs refill sertraline 25 mg tablet 25 mg PO DAILY mental health 07/18 Unknown History Held on 11/02/24. Instructions: pt hasn't taken med in 2 months, needs refill ticagrelor 90 mg tablet (Brilinta) 90 mg PO BID anti platelet 07/18 Unknown History Held on 11/02/24. Instructions: pt hasn't taken med in 2 months, needs refill atorvastatin 40 mg tablet 80 mg (2 x 40 mg) PO DAILY 30 days 07/20/24 Unknown Rx Held on 11/02/24. #60 tabs Instructions: pt hasn't taken med in 2 months, needs refill meclizine 12.5 mg tablet 12.5 mg PO TID PRN PRN Dizziness 1 Unknown Rx Held on 11/02/24. #20 tabs Instructions: pt hasn't taken med in 2 months, needs refill amlodipine 5 mg tablet 5 mg PO BID #60 tabs 07/25/24 Unkn own Rx Held on 11/02/24. Instructions: pt hasn't taken med in 2 months, needs refill Allergy/AdvReac Type Severity Reaction Status Date / Time No Known Allergies Allergy Verified 07/09/25 09:02 Surgical History History of nasal surgery Hx of lymph node biopsy Hx of cholecystectomy Social History Smoking Status: Current every day smoker tobacco type: cigarettes ROS ROS ED Constitutional Constitutional ED: Denies chills or fever(s) Eyes Eyes: Denies change in vision or diplopia ENT ENT ED: Denies rhinorrhea or sore throat Cardiovascular Cardiovascular: Reports lightheadedness; Denies chest pain, leg edema, palpitations or syncope Respiratory/Chest Respiratory/Chest: Reports cough; Denies dyspnea or sputum Gastrointestinal Gastrointestinal: Denies abdominal pain, diarrhea, nausea or vomiting Genitourinary Genitourinary ED: Reports urinary frequency; Denies dysuria or hematuria Musculoskeletal Musculoskeletal: Denies back pain or neck pain Integumentary Denies abscess or rash Neurol (more content not included)... Normal [facility] L501.4021on 07-23-2025 Trop T High Sen 8 ng/L Normal <=[address] [facility] Comment on above: Performed By: #### L 501.4021 #### [facility] [address] [place], [address] Troponin T HS 2 HRon 025 Trop T High Sen 9 ng/L Normal <=[address] [facility] Comment on above: Performed By: #### L 499.0042 #### [facility] [address] [place], [address] Troponin T HS 4 HRon 025 Trop T High Sen Normal <=[address] [facility] Comment on above: Result Comment: Canc elled via OM: Order cancelled - Patient discharged Performed By: #### L 500.2500, L100.0100 #### [facility] [address] [place], [address] Urinalysis, Completeon 07-23 BACTERIA 2+ /hpf Normal None Seen [facility] Comment on above: Order Comment: COLLE CTOR TO SPECIFY Performed By: #### L 499.0042 #### [facility] [address] [place], [address] EPI,SQUAMOUS 0-5 SEEN Normal 5-[address] [facility] Comment on above: Order Comment: COLLE CTOR TO SPECIFY Performed By: #### L 499.0042 #### [facility] [address] [place], [address] Mucus Ql (Urine sed) 1+ /hpf Normal [facility] Comment on above: Order Comment: MADDISON CTOR TO SPECIFY Performed By: #### L 499.0042 #### [facility] [address] [place], [address] RBC 0-5 SEEN Normal 0-[address] [facility] Comment on above: Order Comment: MADDISON CTOR TO SPECIFY Performed By: #### L 499.0042 #### [facility] [address] [place], [address] WBC 5-10 SEEN Normal 0-[address] [facility] Comment on above: Order Comment: MADDISON CTOR TO SPECIFY Performed By: #### L 499.0042 #### [facility] [address] [place], [address] YEAST RARE Normal None Seen [facility] Comment on above: Order Comment: MADDISON CTOR TO SPECIFY Performed By: #### L 499.0042 #### [facility] [address] [place], [address] Colonoscopy studyon 07-14-20 [facility] Patient: NEIL WELLINGTON : 1970 Account: [id number] Sex at : Female Age: 54 Years Procedure: Colonoscopy Date: 07/14/2025 Attending Physician: UNIQUE HAMMOND Indications: - Screening for colorectal malignant neoplasm Medications: - See the Anesthesia note for documentation of the administered medications Complications: - No immediate complications. Estimated Blood Loss: - Estimated blood loss was minimal. Procedure: - The Colonoscope was introduced through the anus and advanced to the cecum, identified by appendiceal orifice and ileocecal valve. - The colonoscopy was performed without difficulty. - The patient tolerated the procedure well. - The quality of the bowel preparation was good. - The ileocecal valve, appendiceal orifice, and rectum were photographed. Findings: - A 2 mm polyp was found in the descending colon. The polyp was sessile. Biopsies were taken with a cold forceps for histology. - A 2 mm polyp was found in the sigmoid colon. The polyp was sessile. Biopsies were taken with a cold forceps for histology. - External hemorrhoids were found during retroflexion. The hemorrhoids were Grade I (internal hemorrhoids that do not prolapse). Impression: - One 2 mm polyp in the descending colon. Biopsied. - One 2 mm polyp in the sigmoid colon. Biopsied. - External hemorrhoids. Recommendation: - Repeat colonoscopy in 5 years for surveillance. Procedure Code(s): - 23521, Colonoscopy, flexible; with biopsy, single or multiple Diagnosis Code(s): - Z12.11, Encounter for screening for malignant neoplasm of colon - D12.4, Benign neoplasm of descending colon - D12.5, Benign neoplasm of sigmoid colon - K64.0, First degree hemorrhoids - K64.4, Residual hemorrhoidal skin tags CPT(R) - 2023 copyright [employer]. All Rights Reserved. The CPT codes, CCI edits and ICD codes generated are intended as suggestions and were generated based on input data. These codes are preliminary and upon marketing assistant review may be revised to meet current compliance and payer requirements. The provider is responsible for the final determination of appropriate codes, and modifiers. Scope Withdrawal Time: 00:10:40 UNIQUE HAMMOND This document has been electronically signed. Note Initiated:07/14/2025 Note Completed:07/14/2025 11:51 AM Rima Mccain MD - 07/14/2025 [facility] Patient: NEIL WELLINGTON : 1970 Account: [id number] Sex at : Female Age: 54 Years Procedure: Colonoscopy Date: 07/14/2025 Attending Physician: UNIQUE HAMMOND Indications: - Screening for colorectal malignant neoplasm Medications: - See the Anesthesia note for documentation of the administered medications Complications: - No immediate complications. Estimated Blood Loss: - Estimated blood loss was minimal. Procedure: - The Colonoscope was introduced through the anus and advanced to the cecum, identified by appendiceal orifice and ileocecal valve. - The colonoscopy was performed without difficulty. - The patient tolerated the procedure well. - The quality of the bowel preparation was good. - The ileocecal valve, appendiceal orifice, and rectum were photographed. Findings: - A 2 mm polyp was found in the descending colon. The polyp was sessile. Biopsies were taken with a cold forceps for histology. - A 2 mm polyp was found in the sigmoid colon. The polyp was sessile. Biopsies were taken with a cold forceps for histology. - External hemorrhoids were found during retroflexion. The hemorrhoids were Grade I (internal hemorrhoids that do not prolapse). Impression: - One 2 mm polyp in the descending colon. Biopsied. - One 2 mm polyp in the sigmoid colon. Biopsied. - External hemorrhoids. Recommendation: - Repeat colonoscopy in 5 years for surveillance. Procedure Code(s): - 61808, Colonoscopy, flexible; with biopsy, single or multiple Diagnosis Code(s): - Z12.11, Encounter for screening for malignant neoplasm of colon - D12.4, Benign neoplasm of descending colon - D12.5, Benign neoplasm of sigmoid colon - K64.0, First degree hemorrhoids - K64.4, Residual hemorrhoidal skin tags CPT(R) - 2022 copyright [employer]. All Rights Reserved. The CPT codes, CCI edits and ICD codes generated are intended as suggestions and were generated based on input data. These codes are preliminary and upon marketing assistant review may be revised to meet current compliance and payer requirements. The provider is responsible for the final determination of appropriate codes, and modifiers. Scope Withdrawal Time: 00:10:40 UNIQUE HAMMOND This document has been electronically signed. Note Initiated:07/14/2025 Note Completed:07/14/2025 11:51 AM [facility] POCT Glucoseon 07-14-2025 Glucose [Mass/Vol] 192 mg/dL High 70 - 99 mg/dl [facility] Interpretation and review of laboratory results Abnormal [facility] Performed on ACCU-CHEK [facility] Glucose [Mass/Vol] 192 mg/dL Critically high 70-99 M [facility] Comment on above: Performed By: #### P GLU #### [facility] [address] [facility] [address] POC Performed on ACCU-CHEK Normal [facility] Comment on above: Performed By: #### P GLU #### [facility] [address] [facility] [address] Surgical Specimenon 07-14-20 Surgical Specimen [facility] Services [address] [place], [place] [id number] FINAL SURGICAL PATHOLOGY REPORT Patient Name: NEIL WELLINGTON Accession No: [id number] Age Sex: 1970 Location: [facility] Account No: [id number] Collected: 07/14/2025 [facility] Rec No: [id number] Received: 07/15/2025 Attend Phys: UNIQUE HAMMOND Completed: 07/16/2025 Perform Phys: UNIQUE HAMMOND FINAL DIAGNOSIS: A. DESCENDING POLYP: TUBULAR ADENOMA B. SIGMOID POLYP: HYPERPLASTIC POLYP CAROLYN/CAROLYN CLINICAL INFORMATION: Procedure: Colonoscopy with polypectomy. Preoperative diagnosis: Colon cancer screening. SPECIMEN: A. Descending Polyp B. Sigmoid Polyp GROSS DESCRIPTION: Received are two containers labeled with the patient's name. The specimens are received in formalin. A. Received is one container designated "colon". The specimen consists of portions of cunha soft tissue, 0.4 x 0.3 x 0.1 cm in aggregate. The specimen is submitted in toto in one cassette. B. Received is one container designated "sigmoid colon". The specimen consists of two pieces of cunha soft tissue, 0.1 and 0.3 cm in greatest dimension. The specimen is submitted in toto in one cassette. CAROLYN/TATYANA CPT: 89706 X2 Junior LYNNE M.D. 07/16/2025 Electronically signed out by Page 1 of 1 Invalid Interpretation Code [facility] Comment on above: Performed By: #### S UR #### [facility] [address] [facility] [address] Absolute lymphocyte countOrd ered By: Peter Thompson on 07-09-2025 Lymphocytes Auto (Unsp spec) [#/Vol] 3.77 10*3/uL 0.83-4.[address] [facility] Absolute neutrophil countOrd ered By: Peter Thompson on 07-09-2025 Neutrophils (Bld) [#/Vol] 9.4 10*3/uL High 2.0-7.[address] [facility] Anion gap in Serum or Plasma Ordered By: Petertyesha Thompson on 07-09-2025 Anion gap [Moles/Vol] 12 mmol/L 02-06 [facility] Automated lymphocyte count a s percentage of total leukocytesOrdered By: Peter Thompson on 07-09-2025 Lymphocytes/100 WBC Auto (Unsp spec) 25.7 % [facility] BUN/creatinine ratioOrdered By: Petertyesha Thompson on 07-09-2025 Urea nitrogen/Creatinine [Mass ratio] 11.9 mg/mg 07-[address] [facility] Basic Metabolic Profile (BMP )on 07-09-2025 BUN/CRE 11.9 RATIO Normal 07-[address] [facility] Comment on above: Performed By: #### L 500.2500, L100.0100 #### [facility] Laboratory [address] [place], [address] Calcium [Mass/Vol] 9.4 mg/dL Normal 7.6-11.0 [facility] Comment on above: Performed By: #### L 500.2500, L100.0100 #### [facility] [address] [place], [address] Chloride [Moles/Vol] 99 mmol/L Normal 98-108 [facility] Comment on above: Performed By: #### L 500.2500, L100.0100 #### [facility] [address] [place], [address] CO2 [Moles/Vol] 24.1 mmol/L Normal 21.0-32.[address] [facility] Comment on above: Performed By: #### L 500.2500, L100.0100 #### [facility] [address] [place], [address] Creatinine [Mass/Vol] 1.09 mg/dL Normal 0.70-1.20 [facility] Comment on above: Performed By: #### L 500.2500, L100.0100 #### [facility] [address] [place], [address] ECRCL 63.70 ml/min Normal 50-[address] [facility] Comment on above: Performed By: #### L 500.2500, L100.0100 #### [facility] [address] [place], [address] GAP 12 Normal 5-[address] [facility] Comment on above: Performed By: #### L 500.2500, L100.0100 #### [facility] [address] [place], [address] GFR/1.73 sq M.predicted among non-blacks MDRD (S/P/Bld) [Vol rate/Area] 61 mL/min/{1.73_m2} Normal >[address] [facility] Comment on above: Result Comment: mL/m in/1.73m2 CKD-EPI Creatinine Equation (2020) Performed By: #### L 500.2500, L100.0100 #### [facility] [address] [place], [address] Glucose [Mass/Vol] 325 mg/dL High 70-99 [facility] Comment on above: Performed By: #### L 500.2500, L100.0100 #### [facility] [address] [place], [address] Potassium [Moles/Vol] 4.1 mmol/L Normal 3.3-5.1 [facility] Comment on above: Performed By: #### L 500.2500, L100.0100 #### [facility] [address] [place], [address] Sodium [Moles/Vol] 135 mmol/L Normal 133-145 [facility] Comment on above: Performed By: #### L 500.2500, L100.0100 #### [facility] [address] [place], [address] Urea nitrogen [Mass/Vol] 13 mg/dL Normal 4-[address] [facility] Comment on above: Performed By: #### L 500.2500, L100.0100 #### [facility] [address] [place], [place], [address] Basophil percentageOrdered B y: Peter Thompson on 07-09-2025 Basophils/100 WBC (Bld) 0.7 % 0-1 [facility] Bilirubin Test strip Ql (U)O rdered By: Peter Thompson on 07-09-2025 Bilirubin Ql (U) Negative Negative [facility] Brain/Head without Contrasto n 07-09-2025 Brain/Head without Contrast [facility] Imaging Services [address] [place], [place] [address] Brain/Head without Contrast MR#: [id number] Acct: [id number] Name: NEIL WELLINGTON Rep #: [id number] : 1970 F 54 From: Anibal Clifton MD PCP: Luz Mcdermott [employer]-C Status: REG ER Study: Brain/Head without Contrast Date of Exam: 06/25 02/16 Exam# [id number] Ordering Dr: Peter Thompson DO PROCEDURE: BRAIN/HEAD WITHOUT CONTRAST 07/09/2025 REASON FOR EXAM: Headache TECHNIQUE: Procedure Code: CTBR Modality: CT Procedure: BRAIN/HEAD WITHOUT CONTRAST Coronal and Sagittal reconstruction series were provided. One or more dose reduction techniques were used (e.g., Automated exposure control, adjustment of the mA and/or kV according to patient size, use of iterative reconstruction technique. RADIATION DOSE SUMMARY: CTDlvol: 45 mGy DLP: 846 mGycm COMPARISON: None FINDINGS: Brain: There is no evidence of hemorrhage, acute ischemia or mass. No extra-axial fluid collection, midline shift or mass effect. Encephalomalacia is seen occipital lobes bilaterally. Mild low-density in the periventricular white matter. Subtle patchy hypodensity in the deep white matter. CSF Spaces: Mild generalized cerebral atrophy Sinuses/Mastoids: Subtotal opacification right maxillary sinus with air-fluid level. Mucosal thickening left maxillary sinus; some of the contents are hyperdense suggesting inspissated mucus or fungal infection. Subtotal opacification right frontal sinus. Opacification right mid and anterior ethmoid air cells in the anterior left ethmoid air cells. Mucosal thickening right laterally in the right sphenoid sinus. Mastoid sinuses are clear. Bones: No fracture CT/Brain/Head without Contrast IMPRESSION: 1. Bilateral occipital encephalomalacia. 2. Paranasal sinus disease as above. Consider sinusitis. This may be the source of the patient's headache. Reading Location: [id number] CC: W[employer]ER-C Luz Mcdermott; Dr. Peter Thompson DO Charge Auditor: Signed Normal [facility] CBC W/Diff, Automatedon 06-25 PLT EST ADEQUATE Normal ADEQ [facility] Comment on above: Performed By: #### L 500.2500, L100.0100 #### [facility] Laboratory [address] [place], [address] Carbon dioxide, total [Moles /volume] in Central venous bloodOrdered By: Peter Thompson on 07-09-2025 CO2 [Moles/Vol] 24.1 mmol/L 21.0-32.[address] [facility] Chloride assayOrdered By: Amor Thompson on 07-09-2025 Chloride [Moles/Vol] 99 mmol/L 98-108 [facility] Emergency Department Summary on 07-09-2025 Emergency Department Summary [facility] Medical Records Department [address] [place] [address] Emergency Department Summary 07/09/25 MR#: [id number] Acct: [id number] Name: NEIL WELLINGTON Rep #: [id number] : 1970 54 From: Peter Thompson DO PCP: REBECCA Parra Status:REG ER Location: ED HPI History of Present Illness Chief Complaint: Headache Narrative Narrative: Chief complaint and HPI: 54-year-old male with past medical history of DM2, HTN, HLD, CAD, CVA presents for evaluation of headache. Patient states for the past several days she has been having a progressively worsening headache. States she has been sleeping little secondary to the pain. Associated symptom is light sensitivity although she is legally blind. She denies any history of migraines. Denies any fever, chills, URI symptoms, shortness of breath, chest pain, numbness/tingling, weakness, focal deficits, abdominal pain. Associated symptom is mild nausea. Patient states headache is already improving from when she called EMS. She states the headache waxes and wanes. Review of systems: See HPI Medications: As listed on the chart Allergies: As listed on the chart PFSH: Per chart Vital signs: As listed on the chart. Reviewed. Physical exam: Gen: A O x3, NAD Eyes: No sclera icterus, conjunctiva clear, PERRL, EOMI ENT: TMs clear BL, moist mucous membranes, posterior oropharynx unremarkable, uvula midline, no temporal tenderness, no facial asymmetry Neck: Trachea midline, Full ROM CV: RRR, no murmurs, no peripheral edema Resp: Lungs CTA BL, no w/r/c GI: Abd soft, non-distended, non-tender, no r/r/g Musc: Full ROM, no deformity, strength +5/5 in all extremities, no pronator drift, no ataxia, lidocaine patches on bilateral calves Skin: Warm, dry, intact Neuro: Alert, oriented, grossly intact, sensation intact, no focal deficits Psych: Cooperative, appropriate mood and affect [facility] Medical History Tobacco abuse Hyperlipidemia History of non-ST elevation myocardial infarction (NSTEMI) Obesity (BMI 30-39.9) Visual disturbance Psoriasis HTN (hypertension) Diabetes Home Medications ???Medication ???Instructions ???Recorded ???Last Taken ???Type HumaLOG KwikPen Insulin See Rx Instructions subcut 3XD Unknown History Held on 11/02/24. DIABETES Instructions: pt hasn't taken med in 2 months, needs refill aspirin 81 mg chewable tablet 1 tab PO DAILY heart health Unknown History Held on 11/02/24. Instructions: pt hasn't taken med in 2 months, needs refill buspirone 7.5 mg tablet 7.5 mg PO BID mental health Unknown History Held on 11/02/24. Instructions: pt hasn't taken med in 2 months, needs refill carvedilol 6.25 mg tablet 6.25 mg PO BID blood pressure 06/26 01/16 Unknown History Held on 11/02/24. Instructions: pt hasn't taken med in 2 months, needs refill empagliflozin 10 mg tablet 10 mg PO DAILY diabetes 07/18/24 U nknown History (Jardiance) Held on 11/02/24. Instructions: pt hasn't taken med in 2 months, needs refill insulin glargine 100 unit/mL (3 26 unit subcut QPM diabetes Unknown History mL) subcutaneous pen (Lantus Solostar U-100 Insulin) Held on 11/02/24. Instructions: pt hasn't taken med in 2 months, needs refill losartan 50 mg tablet 50 mg PO DAILY blood pressure 06/26 01/16 Unknown History ropinirole 0.5 mg tablet 0.5 mg PO TID restless leg 4 Unknown History Held on 11/02/24. Instructions: pt hasn't taken med in 2 months, needs refill sertraline 25 mg tablet 25 mg PO DAILY mental health 07/18 Unknown History Held on 11/02/24. Instructions: pt hasn't taken med in 2 months, needs refill ticagrelor 90 mg tablet (Brilinta) 90 mg PO BID anti platelet 07/18 Unknown History Held on 11/02/24. Instructions: pt hasn't taken med in 2 months, needs refill atorvastatin 40 mg tablet 80 mg (2 x 40 mg) PO DAILY 30 days 07/20/24 Unknown Rx Held on 11/02/24. #60 tabs Instructions: pt hasn't taken med in 2 months, needs refill meclizine 12.5 mg tablet 12.5 mg PO TID PRN PRN Dizziness 1 Unknown Rx Held on 11/02/24. #20 tabs Instructions: pt hasn't taken med in 2 months, needs refill amlodipine 5 mg tablet 5 mg PO BID #60 tabs 07/25/24 Unkn own Rx Held on 11/02/24. Instructions: pt hasn't taken med in 2 months, needs refill Allergy/AdvReac Type Severity Reaction Status Date / Time No Known Allergies Allergy Verified 07/09/25 09:02 Surgical History History of nasal surgery Hx of lymph node biopsy Hx of cholecystectomy Social History ... Normal [facility] Eosinophil percentageOrdered By: Peter Thompson on 07-09-2025 Eosinophils/100 WBC (Bld) 2.1 % 0-[address] [facility] Erythrocyte distribution wid th ratioOrdered By: Peter Thompson on 07-09-2025 Erythrocyte distribution width (RBC) [Ratio] 12.6 % 11.6-14.[address] [facility] Erythrocyte distribution wid th standard deviationOrdered By: Peter Short on 07-09-2025 Erythrocyte distribution width (RBC) [Ratio] 41.1 fl 35.1-43.[address] [facility] Glomerular filtration rate ( GFR) estimation/1.73 sq m using serum, plasma, or whole bOrdered By: Peter Thompson on 07-09-2025 GFR/1.73 sq M.predicted among non-blacks MDRD (S/P/Bld) [Vol rate/Area] 61 mL/min/{1.73_m2} >[address] [facility] Comment on above: mL/min/1.73m2 CKD-EP I Creatinine Equation (2020) Hematocrit Auto (Bld) [Volum e fraction]Ordered By: Peter Thompson on 07-09-2025 Hematocrit (Bld) [Volume fraction] 46.5 % 37-[address] [facility] Hemoglobin measurementOrdere d By: Peter Thompson on 07-09-2025 Hemoglobin (Bld) [Mass/Vol] 15.4 g/dL High 12.0-15.[address] [facility] Immature granulocytes/100 WB C Auto (Bld)Ordered By: Peter Thompson on 07-09-2025 Immature granulocytes/100 WBC (Bld) 0.500 % 0.0-0.[address] [facility] Comment on above: IG% - Immature Granu locytes (promyelocytes, myelocytes and metamyelocytes) > 1% indicates that a LEFT SHIFT is Present. Ketones Test strip Ql (U)Ord ered By: Peter Thompson on 07-09-2025 Ketones Ql (U) Negative Negative [facility] MCV (mean corpuscular volume ) determinationOrdered By: Peter Thompson on 07-09-2025 MCV (RBC) [Entitic vol] 89.8 fL 81-99 [facility] Mean corpuscular hemoglobin (MCH) determinationOrdered By: Peter Thompson on 07-09-2025 MCH (RBC) [Entitic mass] 29.7 pg 27.0-32.[address] [facility] Mean corpuscular hemoglobin concentration (MCHC) determinationOrdered By: Peter Thompson on 07-09-2025 MCHC (RBC) [Mass/Vol] 33.1 g/dL 32-36 [facility] Mean platelet volume determi nationOrdered By: Peter Thompson on 07-09-2025 Platelet mean volume (Bld) [Entitic vol] 12.3 fL High 6.2-12.[address] [facility] Microscopic analysis of urin e for red blood cells (RBC)Ordered By: Peter Thompson on 07-09-2025 Microscopic analysis of urine for red blood cells (RBC) 0-5 SEEN /hpf 0-[address] [facility] Monocyte percentageOrdered B y: Peter Thompson on 07-09-2025 Monocytes/100 WBC (Bld) 6.8 % 0-10 [facility] Mucus LM Ql (Urine sed)Order ed By: Peter Thompson on 07-09-2025 Mucus Ql (Urine sed) 0 SEEN /hpf [facility] Neutrophil percentageOrdered By: Peter Thompson on 07-09-2025 Neutrophils/100 WBC (Bld) 64.2 % 47-[address] [facility] Nitrite Test strip Ql (U)Ord ered By: Peter Thompson on 07-09-2025 Nitrite Ql (U) Negative Negative [facility] Nucleated red blood cell per centageOrdered By: Peter Thompson on 07-09-2025 Nucleated RBC/100 WBC (Bld) [Ratio] 0 % 0-[address] [facility] Platelet countOrdered By: Amor Thompson on 07-09-2025 Platelet count TNP [facility] Comment on above: Test not performedPl ease note: For this sample, a platelet estimate is provided rather than a platelet count due to platelet clumping. Other parameters associated with this sample are not affected by platelet clumping. If a more accurate platelet count is required, a redraw of the patient will be necessary. Platelet estimateOrdered By: Peter Thompson on 07-09-2025 Platelets LM Ql (Bld) ADEQUATE ADEQ [facility] Potassium measurement (mass/ volume)Ordered By: Peter Thompson on 07-09-2025 Potassium (Unsp spec) [Mass/Vol] 4.1 mmol/L 3.3-5.[address] [facility] Protein Test strip Ql (U)Ord ered By: Peter Thompson on 07-09-2025 Protein Ql (U) Negative Negative [facility] RBC Auto (Bld) [#/Vol]Ordere d By: Peter Thompson on 07-09-2025 RBC (Bld) [#/Vol] 5.18 10*6/uL 4.2-5.4 [facility] Serum creatinine measurement (mass/volume)Ordered By: Peter Thompson on 07-09-2025 Creatinine [Mass/Vol] 1.09 mg/dL 0.70-1.20 [facility] Serum glucose measurement (m ass/volume)Ordered By: Peter Thompson on 07-09-2025 Glucose [Mass/Vol] 325 mg/dL High 70-99 [facility] Serum or plasma calcium mark urement (mass/volume)Ordered By: Peter Short on 07-09-2025 Calcium [Mass/Vol] 9.4 mg/dL 7.6-11.0 [facility] Serum or plasma urea nitroge n measurement (mass/volume)Ordered By: Peter Thompson on 07-09-2025 Urea nitrogen [Mass/Vol] 13 mg/dL 4-[address] [facility] Sodium levelOrdered By: Erick Thompson on 07-09-2025 Sodium [Moles/Vol] 135 mmol/L 133-145 [facility] Squamous epithelial cells de tection in urine sediment by light microscopyOrdered By: Peter Thompson on 07-09-2025 Epithelial cells.squamous LM Ql (Urine sed) 5-10 SEEN /hpf 5-[address] [facility] Urinalysis, Completeon 07-09 RBC 0-5 SEEN Normal 0-[address] [facility] Comment on above: Order Comment: MADDISON CTOR TO SPECIFY Performed By: #### L 400.0001 #### [facility] [address] [place] [address] BACTERIA 1+ /hpf Normal None Seen [facility] Comment on above: Order Comment: MADDISON CTOR TO SPECIFY Performed By: #### L 400.0001 #### [facility] [address] [facility] [address] EPI,SQUAMOUS 5-10 SEEN Normal 5-[address] [facility] Comment on above: Order Comment: MADDISON CTOR TO SPECIFY Performed By: #### L 400.0001 #### [facility] [address] [facility] [address] WBC 0-5 SEEN Normal 0-[address] [facility] Comment on above: Order Comment: MADDISON CTOR TO SPECIFY Performed By: #### L 400.0001 #### [facility] [address] [facility] [address] Mucus Ql (Urine sed) 0 SEEN Normal [facility] Comment on above: Order Comment: MADDISON CTOR TO SPECIFY Performed By: #### L 400.0001 #### [facility] [address] [place] [address] Urine clarityOrdered By: Sj Thompson on 07-09-2025 Clarity (U) Clear Clear [facility] Urine color determinationOrd ered By: Peter Thompson on 07-09-2025 Color (U) Yellow Yellow [facility] Urine glucose detectionOrder ed By: Peter Thompson on 07-09-2025 Glucose Ql (U) 1000 mg/dl High Normal [facility] Urine leukocyte esterase det ection by dipstickOrdered By: Peter Thompson on 07-09-2025 Leukocyte esterase Test strip Ql (U) 25 /ul High Negative [facility] Urine pHOrdered By: Peter Thorne on 07-09-2025 pH (U) 6.0 [pH] 5.0 - 8.[address] [facility] Urine sediment bacteria coun t by microscopy (number/high power field)Ordered By: Peter Thompson on 07-09-2025 Bacteria LM.HPF (Urine sed) [#/Area] 1 /[HPF] None Seen [facility] Urine specific gravity measu rementOrdered By: Peter Thompson on 07-09-2025 Specific gravity (U) [Rel density] 1.010 1.002-1.[address] [facility] Urine urobilinogen measureme ntOrdered By: Peter Thompson on 07-09-2025 Urobilinogen Ql (U) Normal mg/dl Normal [facility] White blood cell (WBC) count Ordered By: Peter Thompson on 07-09-2025 WBC (Bld) [#/Vol] 14.7 10*3/uL High 4.4-11.0 [facility] White blood cell countOrdere d By: Peter Thompson on 07-09-2025 White blood cell count 0-5 SEEN /hpf 0-[address] [facility] CT LUNG SCREENING (INITIAL/A NNUAL)on 06-30-2025 CT LUNG SCREENING (INITIAL/ANNUAL) EXAMINATION: LOW DOSE SCREENING CT OF THE CHEST WITHOUT CONTRAST 06/30/2025 3:36 pm TECHNIQUE: Low dose lung cancer screening CT of the chest was performed without the administration of intravenous contrast. Multiplanar reformatted images are provided for review. Automated exposure control, iterative reconstruction, and/or weight based adjustment of the mA/kV was utilized to reduce the radiation dose to as low as reasonably achievable. COMPARISON: None. HISTORY: ORDERING SYSTEM PROVIDED HISTORY: Personal history of tobacco use TECHNOLOGIST PROVIDED HISTORY: Age: Patient is 54 y.o. Smoking History: Tobacco Use Smoking status: Every Day Packs/day: 2.00 Years: 2.0 packs/day for 38.0 years (76.0 ttl pk-yrs) Types: Cigarettes Smokeless tobacco: Never Date of last lung cancer screenin12/16/2022 Is there documentation of shared decision making?->Yes Is this a low dose CT or a routine CT?->Low Dose CT Is this the first (baseline) CT or an annual exam?->Annual Does the patient show any signs or symptoms of lung cancer?->No Smoking Status?->Every Day Pack Years->76 What reading provider will be dictating this exam?->CRC FINDINGS: Mediastinum: The thoracic aorta is normal caliber. There is no pericardial effusion. No mediastinal or hilar pathological lymphadenopathy is identified. Lungs/Pleura: There are mild emphysematous changes. There is no pulmonary infiltrate or pulmonary mass. No suspicious solid noncalcified pulmonary nodules noted There is a 4 mm vague ground-glass focus within the right upper lobe laterally on axial image number 31 there is no pleural effusion or pleural thickening. Upper Abdomen: Limited images of the upper abdomen demonstrate no acute abnormality. Soft Tissues/Bones: Age related degenerative changes of the visualized osseous structures without focal destructive lesion. IMPRESSION: 1. There is no pulmonary infiltrate, mass or suspicious pulmonary nodule 2. Vague 4 mm ground-glass nodular density seen within the right upper lobe laterally best appreciated on axial image number 31 this is likely of no clinical significance. LUNG RADS: Lung-RADS 2 - Benign (v2022) Management: 12 month screening LDCT Interpreted by: Michael Melendez MD Signed by: Michael Melendez MD 07/01/25 Final result Normal [facility] Comprehensive Metabolic Pane darien 06-18-2025 Albumin [Mass/Vol] 4.0 g/dL Normal 3.5-4.6 [facility] Comment on above: Performed By: #### C MP #### [facility] [address] [place] [address] ALP [Catalytic activity/Vol] 144 U/L Critically high 40-130 [facility] Comment on above: Performed By: #### C MP #### [facility] [address] [place] [address] ALT [Catalytic activity/Vol] U/L Normal 0-33 [facility] Comment on above: Result Comment: Spec imen lipemia has exceeded the interference as defined by [facility]. Value may be falsely decreased. Performed By: #### C MP #### [facility] [address] [place] [address] Anion gap [Moles/Vol] 14 mmol/L Normal 9-15 [facility] Comment on above: Performed By: #### C MP #### [facility] [address] [place] [address] AST [Catalytic activity/Vol] 15 U/L Normal 0-35 [facility] Comment on above: Result Comment: Spec imen lipemia has exceeded the interference as defined by [facility]. Value may be falsely decreased. Performed By: #### C MP #### [facility] [address] [place] [address] Bilirubin [Mass/Vol] 0.3 mg/dL Normal 0.2-0.7 [facility] Comment on above: Performed By: #### C MP #### [facility] [address] [place] [address] Calcium [Mass/Vol] 9.2 mg/dL Normal 8.5-9.9 [facility] Comment on above: Performed By: #### C MP #### [facility] [address] [place] [address] Chloride [Moles/Vol] 99 mmol/L Normal 95-107 [facility] Comment on above: Performed By: #### C MP #### [facility] [address] [place] [address] CO2 [Moles/Vol] 20 mmol/L Normal 20-31 [facility] Comment on above: Performed By: #### C MP #### [facility] [address] [place] [address] Creatinine [Mass/Vol] 0.96 mg/dL Critically high 0.50-0.90 [facility] Comment on above: Performed By: #### C MP #### [facility] [address] [place] [address] GFR 70.4 Normal >60 [facility] Comment on above: Result Comment: Pedi atric calculator link https://www.kidney.org/professionals/kdoqi/gfr_calculatorped Effective Jun 27, 2022 These results are not intended for use in patients <18 years of age. eGFR results are calculated without a race factor using the 2020 CKD-EPI equation. Careful clinical correlation is recommended, particularly when comparing to results calculated using previous equations. The CKD-EPI equation is less accurate in patients with extremes of muscle mass, extra-renal metabolism of creatinine, excessive creatinine ingestion, or following therapy that affects renal tubular secretion. Performed By: #### C MP #### [facility] [address] [place] [address] Globulin (S) [Mass/Vol] 4.3 g/dL Critically high 2.3-3.5 [facility] Comment on above: Performed By: #### C MP #### [facility] [address] [place] [address] Glucose [Mass/Vol] 314 mg/dL Critically high 70-99 M [facility] Comment on above: Performed By: #### C MP #### [facility] [address] [place] [address] Potassium [Moles/Vol] 5.0 mmol/L Critically high 3.4-4.9 [facility] Comment on above: Performed By: #### C MP #### [facility] [address] [place] [address] Protein [Mass/Vol] 8.3 g/dL Critically high 6.3-8.0 M [facility] Comment on above: Performed By: #### C MP #### [facility] [address] [place] [address] Sodium [Moles/Vol] 133 mmol/L Low 135-144 [facility] Comment on above: Performed By: #### C MP #### [facility] [address] [place] [address] Urea nitrogen [Mass/Vol] 13 mg/dL Normal 6-20 [facility] Comment on above: Performed By: #### C MP #### [facility] [address] [place] [address] Lipid Panelon 06-18-2025 Cholesterol [Mass/Vol] 232 mg/dL Critically high 0-199 [facility] Comment on above: Result Comment: ATP III Cholesterol Classification is Borderline High. Performed By: #### L IPID #### [facility] [address] [place] [address] Cholesterol in HDL [Mass/Vol] 33 mg/dL Low 40-59 [facility] Comment on above: Result Comment: ATP III HDL Cholestrol Classification is low. Expected Values: Males: >55 = No Risk 35-55 = Moderate Risk <35 = High Risk Females: >65 = No Risk 45-65 = Moderate Risk <45 = High Risk NCEP Guidelines: Third Report January 2001 >59 = negative risk factor for CHD <40 = major risk factor for CHD Performed By: #### L IPID #### [facility] [address] [place] [address] Cholesterol in LDL [Mass/Vol] 123 mg/dL Normal 0-129 [facility] Comment on above: Result Comment: ATP III LDL Classification is Near Optimal. LDL calculated using the Friedewald equation. Performed By: #### L IPID #### [facility] [address] [place] [address] Triglyceride [Mass/Vol] 382 mg/dL Critically high 0-150 [facility] Comment on above: Result Comment: ATP III Triglycerides Classification is High. Performed By: #### L IPID #### [facility] [address] [place] [address] Comprehensive Metabolic Pane darien 02-20-2025 Anion gap [Moles/Vol] 13 mmol/L Normal 9-15 [facility] Comment on above: Performed By: #### C MP #### [facility] [address] [place] [address] Albumin [Mass/Vol] 4.1 g/dL Normal 3.5-4.6 [facility] Comment on above: Performed By: #### C MP #### [facility] [address] [place] [address] ALP [Catalytic activity/Vol] 152 U/L Critically high 40-130 [facility] Comment on above: Performed By: #### C MP #### [facility] [address] [place] [address] ALT [Catalytic activity/Vol] U/L Normal 0-33 [facility] Comment on above: Result Comment: Spec imen lipemia has exceeded the interference as defined by Wayne. Value may be falsely decreased. Performed By: #### C MP #### [facility] [address] [place] [address] AST [Catalytic activity/Vol] U/L Normal 0-35 [facility] Comment on above: Result Comment: Spec imen lipemia has exceeded the interference as defined by Wayne. Value may be falsely decreased. Performed By: #### C MP #### [facility] [address] [place] [address] Bilirubin [Mass/Vol] 0.5 mg/dL Normal 0.2-0.7 [facility] Comment on above: Performed By: #### C MP #### [facility] [address] [place] [address] Calcium [Mass/Vol] 9.7 mg/dL Normal 8.5-9.9 [facility] Comment on above: Performed By: #### C MP #### [facility] [address] [place] [address] Chloride [Moles/Vol] 98 mmol/L Normal 95-107 [facility] Comment on above: Performed By: #### C MP #### [facility] [address] [place] [address] CO2 [Moles/Vol] 28 mmol/L Normal 20-31 [facility] Comment on above: Performed By: #### C MP #### [facility] [address] [place] [address] Creatinine [Mass/Vol] 1.03 mg/dL Critically high 0.50-0.90 [facility] Comment on above: Performed By: #### C MP #### [facility] [address] [place] [address] GFR 64.8 Normal >60 [facility] Comment on above: Result Comment: Leticia atric calculator link https://www.kidney.org/professionals/kdoqi/gfr_calculatorped Effective Jun 27, 2022 These results are not intended for use in patients <18 years of age. eGFR results are calculated without a race factor using the 2020 CKD-EPI equation. Careful clinical correlation is recommended, particularly when comparing to results calculated using previous equations. The CKD-EPI equation is less accurate in patients with extremes of muscle mass, extra-renal metabolism of creatinine, excessive creatinine ingestion, or following therapy that affects renal tubular secretion. Performed By: #### C MP #### [facility] [address] [place] [address] Globulin (S) [Mass/Vol] 4.0 g/dL Critically high 2.3-3.5 [facility] Comment on above: Performed By: #### C MP #### [facility] [address] [place] [address] Glucose [Mass/Vol] 362 mg/dL Critically high 70-99 M [facility] Comment on above: Performed By: #### C MP #### [facility] [address] [place] [address] Potassium [Moles/Vol] 4.0 mmol/L Normal 3.4-4.9 [facility] Comment on above: Performed By: #### C MP #### [facility] [address] [place] [address] Protein [Mass/Vol] 8.1 g/dL Critically high 6.3-8.0 M [facility] Comment on above: Performed By: #### C MP #### [facility] [address] [place] [address] Sodium [Moles/Vol] 139 mmol/L Normal 135-144 [facility] Comment on above: Performed By: #### C MP #### [facility] [address] [place] [address] Urea nitrogen [Mass/Vol] 16 mg/dL Normal 6-20 [facility] Comment on above: Performed By: #### C MP #### [facility] [address] [place] [address] CBC panel Auto (Bld)on 01-20 Erythrocyte distribution width (RBC) [Ratio] 12.6 % Normal 11.5-15.0 [facility] Comment on above: Order Comment: Speci men Type: BLOOD SPECIMEN Ordering Facility: [facility] Address: [address] [place] [address], [address] [address] Performed By: #### 5 8410-2 #### [facility] CLIA [id number] [address] [place] [address] [place] Hematocrit (Bld) [Volume fraction] 46.7 % High 36.0-46.0 [facility] Comment on above: Order Comment: Speci men Type: BLOOD SPECIMEN Ordering Facility: [facility] Address: [address] [place] [address], [address] [place] [address] Performed By: #### 5 8410-2 #### [facility] CLIA [id number] [address] [place] [address] [place] Hemoglobin (Bld) [Mass/Vol] 15.4 g/dL Normal 11.5-15.5 [facility] Comment on above: Order Comment: Speci men Type: BLOOD SPECIMEN Ordering Facility: [facility] Address: [address] [place] [address], [address] [address] Performed By: #### 5 8410-2 #### [facility] CLIA [id number] [address] [place] [address] [place] MCH (RBC) [Entitic mass] 29.8 pg Normal 26.0-34.0 [facility] Comment on above: Order Comment: Speci men Type: BLOOD SPECIMEN Ordering Facility: [facility] Address: [address] [place] [address], [place] [id number] Performed By: #### 5 8410-2 #### [facility] CLIA [id number] [address] [place] [address] [place] MCHC (RBC) [Mass/Vol] 33.0 g/dL Normal 30.5-36.0 [facility] Comment on above: Order Comment: Speci men Type: BLOOD SPECIMEN Ordering Facility: [facility] Address: [address] [place] [address], [address] [address] Performed By: #### 5 8410-2 #### [facility] CLIA [id number] [address] [place] [address] [place] MCV (RBC) [Entitic vol] 90.3 fL Normal 80.0-100.0 C [facility] Comment on above: Order Comment: Speci men Type: BLOOD SPECIMEN Ordering Facility: [facility] Address: [address] [place] [address], [address] [address] Performed By: #### 5 8410-2 #### [facility] CLIA [id number] [address] [place] [address] [place] Nucleated RBC (Bld) [#/Vol] 10*3/uL Normal <0.01 [facility] Comment on above: Order Comment: Speci men Type: BLOOD SPECIMEN Ordering Facility: [facility] Address: [address] [place] [address], [address] [address] Performed By: #### 5 8410-2 #### [facility] CLIA [id number] [address] [place] [address] [place] Platelet mean volume (Bld) [Entitic vol] 12.8 fL High 9.0-12.7 [facility] Comment on above: Order Comment: Speci men Type: BLOOD SPECIMEN Ordering Facility: [facility] Address: [address] [place] [address] Performed By: #### 5 8410-2 #### [facility] CLIA [id number] [address] [place] [address] [place] Platelets (Bld) [#/Vol] 239 10*3/uL Normal 150-400 [facility] Comment on above: Order Comment: Speci men Type: BLOOD SPECIMEN Ordering Facility: [facility] Address: [address] [place] [address] Performed By: #### 5 8410-2 #### [facility] CLIA [id number] [address] [place] [address] [place] RBC (Bld) [#/Vol] 5.17 10*6/uL Normal 3.90-5.20 [facility] Comment on above: Order Comment: Speci men Type: BLOOD SPECIMEN Ordering Facility: [facility] Address: [address] [place] [address] Performed By: #### 5 8410-2 #### [facility] CLIA [id number] [address] [place] [address] [place] WBC (Bld) [#/Vol] 12.09 10*3/uL High 3.70-11.00 [facility] Comment on above: Order Comment: Speci men Type: BLOOD SPECIMEN Ordering Facility: [facility] Address: [address], [address], [place] [address] Performed By: #### 5 8410-2 #### [facility] CLIA [id number] [address] [place] [address] [place] Comprehensive metabolic 2000 panelon 01-20-2025 Albumin [Mass/Vol] 4.0 g/dL Normal 3.9-4.9 [facility] Comment on above: Order Comment: Speci men Type: BLOOD SPECIMEN Ordering Facility: [facility] Address: [address] [place] [address], [address], [place] [address] Performed By: #### 2 4323-8 #### [facility] CLIA [id number] [address] [place], [place] [id number] [place] ALP [Catalytic activity/Vol] 150 U/L High 34-123 [facility] Comment on above: Order Comment: Speci men Type: BLOOD SPECIMEN Ordering Facility: [facility] Address: [address] [place] [address], [address] [address] Performed By: #### 2 4323-8 #### [facility] CLIA [id number] [address] [place], [place] [id number] [place] ALT [Catalytic activity/Vol] 16 U/L Normal 7-38 [facility] Comment on above: Order Comment: Speci men Type: BLOOD SPECIMEN Ordering Facility: [facility] Address: [address] [place] [address], [address] [address] Performed By: #### 2 4323-8 #### [facility] CLIA [id number] [address] [place] [address] [place] Anion gap [Moles/Vol] 12 mmol/L Normal 8-15 [facility] Comment on above: Order Comment: Speci men Type: BLOOD SPECIMEN Ordering Facility: [facility] Address: [address] [place] [address], [address], [place] [address] Performed By: #### 2 4323-8 #### [facility] CLIA [id number] [address] [address] [place] AST [Catalytic activity/Vol] 15 U/L Normal 13-35 [facility] Comment on above: Order Comment: Speci men Type: BLOOD SPECIMEN Ordering Facility: [facility] Address: [address] [place] [address], [address] [address] Performed By: #### 2 4323-8 #### [facility] CLIA [id number] [address] [place] [id number] [place] Bilirubin [Mass/Vol] 0.3 mg/dL Normal 0.2-1.3 [facility] Comment on above: Order Comment: Speci men Type: BLOOD SPECIMEN Ordering Facility: [facility] Address: [address] [place] [address], [address] [address] Performed By: #### 2 4323-8 #### [facility] CLIA [id number] [address] [place] [id number] [place] Calcium [Mass/Vol] 9.2 mg/dL Normal 8.5-10.2 [facility] Comment on above: Order Comment: Speci men Type: BLOOD SPECIMEN Ordering Facility: [facility] Address: [address] [place] [address], [address] [address] Performed By: #### 2 4323-8 #### [facility] CLIA [id number] [address] [address] [place] Chloride [Moles/Vol] 101 mmol/L Normal 98-107 [facility] Comment on above: Order Comment: Speci men Type: BLOOD SPECIMEN Ordering Facility: [facility] Address: [address] [place] [address], [address] [address] Performed By: #### 2 4323-8 #### [facility] CLIA [id number] [address] [address] [place] CO2 [Moles/Vol] 24 mmol/L Normal 22-30 [facility] Comment on above: Order Comment: Roopa morales Type: BLOOD SPECIMEN Ordering Facility: [facility] Address: [address] [place] [address], [address], [place] [address] Performed By: #### 2 4323-8 #### [facility] CLIA [id number] [address] [place] [address] [place] Creatinine [Mass/Vol] 0.89 mg/dL Normal 0.58-0.96 [facility] Comment on above: Order Comment: Roopa morales Type: BLOOD SPECIMEN Ordering Facility: [facility] Address: [address] [place] [address], [address], [place] [address] Performed By: #### 2 4323-8 #### [facility] CLIA [id number] [address] [place] [address] [place] Creatinine and Glomerular filtration rate.predicted panel (S/P/Bld) 78 mL/min/1.73m??? Normal >=60 [facility] Comment on above: Order Comment: Roopa morales Type: BLOOD SPECIMEN Ordering Facility: [facility] Address: [address] [place] [address], [address], [place] [address] Result Comment: Devi mated Glomerular Filtration Rate (eGFR) is calculated using the 2020 CKD-EPI creatinine equation. This equation utilizes serum creatinine, sex, and age as parameters. The creatinine assay has traceable calibration to isotope dilution-mass spectrometry. Refer to KDIGO guidelines for clinical interpretation. In patients with unstable renal function, e.g. those with acute kidney injury, the eGFR may not accurately reflect actual GFR. Performed By: #### 2 4323-8 #### [facility] CLIA [id number] [address] [place] [id number] [place] Glucose [Mass/Vol] 407 mg/dL High 74-99 [facility] Comment on above: Order Comment: Roopa morales Type: BLOOD SPECIMEN Ordering Facility: [facility] Address: [address] [place] [address], [address], [place] [address] Result Comment: The [place] [employer] (ADA) provides guidance for cutoff values for fasting glucose and random glucose. The ADA defines fasting as no caloric intake for at least 8 hours. Fasting plasma glucose results between 100 to 125 mg/dL indicate increased risk for diabetes (prediabetes). Fasting plasma glucose results greater than or equal to 126 mg/dL meet the criteria for diagnosis of diabetes. In the absence of unequivocal hyperglycemia, results should be confirmed by repeat testing. In a patient with classic symptoms of hyperglycemia or hyperglycemic crisis, random plasma glucose results greater than or equal to 200 mg/dL meet the criteria for diagnosis of diabetes. Reference: Standards of Medical Care in Diabetes 2016, [place] [employer]. Diabetes Care. 2016.39(Suppl 1). Performed By: #### 2 4323-8 #### [facility] CLIA [id number] [address] [place] [address] [place] Potassium [Moles/Vol] 4.3 mmol/L Normal 3.7-5.1 [facility] Comment on above: Order Comment: Speci men Type: BLOOD SPECIMEN Ordering Facility: [facility] Address: [address] [place] [address], [place] [address] Performed By: #### 2 4323-8 #### [facility] CLIA [id number] [address] [place] [address] [place] Protein [Mass/Vol] 7.5 g/dL Normal 6.3-8.0 [facility] Comment on above: Order Comment: Speci men Type: BLOOD SPECIMEN Ordering Facility: [facility] Address: [address] [place] [address], [address] [address] Performed By: #### 2 4323-8 #### [facility] CLIA [id number] [address] [place] [id number] [place] Sodium [Moles/Vol] 137 mmol/L Normal 136-144 [facility] Comment on above: Order Comment: Speci men Type: BLOOD SPECIMEN Ordering Facility: [facility] Address: [address] [place] [address], [address] [address] Performed By: #### 2 4323-8 #### [facility] CLIA [id number] [address] [address] [place] Urea nitrogen [Mass/Vol] 11 mg/dL Normal 7-21 [facility] Comment on above: Order Comment: Roopa morales Type: BLOOD SPECIMEN Ordering Facility: [facility] Address: [address] [place] [address], [place] [address] Performed By: #### 2 4323-8 #### [facility] CLIA [id number] [address] [address] [place] HbA1c (Bld)on 01-20-2025 Average glucose Estimated from glycated hemoglobin (Bld) [Mass/Vol] 289 mg/dL Normal [facility] Comment on above: Order Comment: Roopa morales Type: BLOOD SPECIMEN Ordering Facility: [facility] Address: [address] [place] [address], [place] [address] Result Comment: eAG: (Estimated average glucose) is a calculated value from HgbA1c and is real estate representative of the average blood glucose level in the last 2-3 month period. Performed By: #### 5 5454-3 #### [facility] CLIA [id number] [address] [address] [place] HbA1c (Bld) [Mass fraction] 11.7 % High 4.3-5.6 [facility] Comment on above: Order Comment: Roopa morales Type: BLOOD SPECIMEN Ordering Facility: [facility] Address: [address] [place] [address], [place] [address] Result Comment: Amer [place] Diabetes Association guidelines indicate that patients with HgbA1c in the range 5.7-6.4% are at increased risk for development of diabetes, and intervention by lifestyle modification may be beneficial. HgbA1c greater or equal to 6.5% is considered diagnostic of diabetes. Performed By: #### 5 5454-3 #### [facility] CLIA [id number] [address] [facility] [place] [address] [place] Basic Metabolic Profile (BMP )on 11-02-2024 BUN/CRE 12.8 RATIO Normal 10-[address] [facility] Comment on above: Performed By: #### L 500.2500, L100.0100 #### [facility] [address] [place], [address] CA,Total 9.0 mg/dL Normal 8.5-10.[address] [facility] Comment on above: Performed By: #### L 500.2500, L100.0100 #### [facility] [address] [place], [address] Chloride [Moles/Vol] 100 mmol/L Normal 98-107 [facility] Comment on above: Performed By: #### L 500.2500, L100.0100 #### [facility] [address] [place], [address] CO2 [Moles/Vol] 23.0 mmol/L Normal 21.0-32.[address] [facility] Comment on above: Performed By: #### L 500.2500, L100.0100 #### [facility] [address] [place], [address] Creatinine [Mass/Vol] 1.25 mg/dL High 0.55-1.02 [facility] Comment on above: Result Comment: The validity of the calculated GFR GFRAA in patients over 70 years has not been determined. Clinical correlation is essential. Performed By: #### L 500.2500, L100.0100 #### [facility] [address] [place], [address] ECRCL 60.54 ml/min Normal [facility] Comment on above: Performed By: #### L 500.2500, L100.0100 #### [facility] [address] [place], [address] EST GFR - AA 58 mL/min Low >[address] [facility] Comment on above: Result Comment: Afri can Lebanese GFR Calc Performed By: #### L 500.2500, L100.0100 #### [facility] [address] [place], [address] GAP 9 Normal 5-[address] [facility] Comment on above: Performed By: #### L 500.2500, L100.0100 #### [facility] [address] [place], [address] GFR/1.73 sq M.predicted among non-blacks MDRD (S/P/Bld) [Vol rate/Area] 48 mL/min/{1.73_m2} Low >[address] [facility] Comment on above: Result Comment: Non- GFR Calc Performed By: #### L 500.2500, L100.0100 #### [facility] [address] [place], [address] Glucose [Mass/Vol] 487 mg/dL Invalid Interpretation Code 74-[address] [facility] Comment on above: Result Comment: Crit ical Result(s) Called at: 02:30:31 11/02/2024 by: Jerardo Gates. TO [employer]. Results read back by same. Glucose result greater than or equal to 200 mg/dL suggests DIABETES MELLITUS per A.D.A. criteria. Performed By: #### L 500.2500, L100.0100 #### [facility] [address] [place], [address] Potassium [Moles/Vol] 4.2 mmol/L Normal 3.5-5.1 [facility] Comment on above: Performed By: #### L 500.2500, L100.0100 #### [facility] [address] [place], [address] Sodium [Moles/Vol] 132 mmol/L Low 136-145 [facility] Comment on above: Performed By: #### L 500.2500, L100.0100 #### [facility] [address] [place], [address] Urea nitrogen [Mass/Vol] 16 mg/dL Normal 7-[address] [facility] Comment on above: Performed By: #### L 500.2500, L100.0100 #### [facility] [address] [place], [address] Bedside Glucoseon 11-02-2024 FINGERSTICK GLU 404 mg/dL High 74-[address] [facility] Comment on above: Result Comment: DENISE CARRINGTON OF PATIENT CARE PER NURSING PROTOCOL Performed By: #### L 501.080 #### [facility] [address] [place], [address] CBC W/Diff, Automatedon Absolute Lymph 1.92 X10 3/uL Normal 0.83-4.[address] [facility] Comment on above: Performed By: #### L 500.2500, L100.0100 #### [facility] [address] [place], [address] Absolute Neut 4.0 X10 3/uL Normal 2.0-7.[address] [facility] Comment on above: Performed By: #### L 500.2500, L100.0100 #### [facility] [address] [place], [address] Basophils/100 WBC (Bld) 1.7 % High 0-1 [facility] Comment on above: Performed By: #### L 500.2500, L100.0100 #### [facility] [address] [place], [address] Eosinophils/100 WBC (Bld) 2.2 % Normal 0-[address] [facility] Comment on above: Performed By: #### L 500.2500, L100.0100 #### [facility] [address] [place], [address] Erythrocyte distribution width (RBC) [Ratio] 12.8 % Normal 11.6-14.[address] [facility] Comment on above: Performed By: #### L 500.2500, L100.0100 #### [facility] [address] [place], [address] Hematocrit (Bld) [Volume fraction] 49.8 % High 37-[address] [facility] Comment on above: Performed By: #### L 500.2500, L100.0100 #### [facility] [address] [place], [address] Hemoglobin (Bld) [Mass/Vol] 15.8 g/dL High 12.0-15.[address] [facility] Comment on above: Performed By: #### L 500.2500, L100.0100 #### [facility] [address] [place], [address] IG% 0.300 Normal 0.0-0.[address] [facility] Comment on above: Result Comment: IG% - Immature Granulocytes (promyelocytes, myelocytes and metamyelocytes) > 1% indicates that a LEFT SHIFT is Present. Performed By: #### L 500.2500, L100.0100 #### [facility] [address] [place], [address] Lymphocytes/100 WBC (Bld) 26.9 % Normal 19-[address] [facility] Comment on above: Performed By: #### L 500.2500, L100.0100 #### [facility] [address] [place], [address] MCH (RBC) [Entitic mass] 29.6 pg Normal 27.0-32.[address] [facility] Comment on above: Performed By: #### L 500.2500, L100.0100 #### [facility] [address] [place], [address] MCHC (RBC) [Mass/Vol] 31.7 g/dL Low 32-36 [facility] Comment on above: Performed By: #### L 500.2500, L100.0100 #### [facility] [address] [place], [address] MCV (RBC) [Entitic vol] 93.3 fL Normal 81-99 [facility] Comment on above: Performed By: #### L 500.2500, L100.0100 #### [facility] [address] [place], [address] Monocytes/100 WBC (Bld) 13.3 % High 0-10 [facility] Comment on above: Performed By: #### L 500.2500, L100.0100 #### [facility] [address] [place], [address] Neutrophils/100 WBC (Bld) 55.6 % Normal 47-[address] [facility] Comment on above: Performed By: #### L 500.2500, L100.0100 #### [facility] [address] [place], [address] Nucleated RBC (Bld) [#/Vol] 0 10*3/uL Normal 0-[address] [facility] Comment on above: Performed By: #### L 500.2500, L100.0100 #### [facility] [address] [place], [address] Platelet mean volume (Bld) [Entitic vol] 12.1 fL High 6.2-12.[address] [facility] Comment on above: Performed By: #### L 500.2500, L100.0100 #### [facility] [address] [place], [address] Platelets (Bld) [#/Vol] 154 10*3/uL Normal 150-[address] [facility] Comment on above: Performed By: #### L 500.2500, L100.0100 #### [facility] [address] [place], [address] RBC (Bld) [#/Vol] 5.34 10*6/uL Normal 4.2-5.4 [facility] Comment on above: Performed By: #### L 500.2500, L100.0100 #### [facility] [address] [place], [address] RDW SD 43.5 fl Normal 35.1-43.[address] [facility] Comment on above: Performed By: #### L 500.2500, L100.0100 #### [facility] [address] [place], [address] WBC (Bld) [#/Vol] 7.1 10*3/uL Normal 4.4-11.0 [facility] Comment on above: Performed By: #### L 500.2500, L100.0100 #### [facility] [address] [place], [address] Chest PA and Lateralon 11-02 Chest PA and Lateral [facility] [address] [place] [address] Chest PA and Lateral MR#: [id number] Acct: [id number] Name: NEIL WELLINGTON Rep #: [id number] : 1970 F 54 From: Phuong Griffith i DO PCP: Care Physician,No Primary Status: PRE ER Study: Chest PA and Lateral Date of Exam: 11/02/24 Exam# [id number] Ordering Dr: Maximo Wayne DO PROCEDURE: PA and lateral chest radiographs, two views REASON FOR EXAM: Cough TECHNIQUE: PA and lateral chest radiographs were obtained. COMPARISON: 08/08/2024 FINDINGS: The cardiomediastinal silhouette is stable. Similar elevation right hemidiaphragm. Bones are osteopenic with degenerative changes in the spine. No pneumothorax, focal airspace consolidation, or pleural effusion. A left loop recorder remains in place. RAD/Chest PA and Lateral IMPRESSION: No acute cardiopulmonary process or significant change. If there are persistent symptoms or clinical concern, short-term follow-up chest CT evaluation may be considered. Reading Location: [facility] CC: Maximo Wayne DO; No Primary Care Physician Charge Auditor: Signed Normal [facility] Emergency Department Summary on 11-02-2024 Emergency Department Summary [facility] Medical Records Department [address] [place] [address] Emergency Department Summary 11/02/24 MR#: [id number] Acct: [id number] Name: NEIL WELLINGTON Rep #: [id number] : 1970 54 From: Maximo Wayne DO PCP: CHRISSIE ParraC Status:REG ER Location: ED HPI History of Present Illness Chief Complaint: Shortness of Breath Informant: patient and EMS Narrative Narrative: Patient is 54-year-old female with past medical history of insulin-dependent diabetes hypertension hyperlipidemia and CAD. She also reports a past medical history of smoking but denies any previous diagnosis of COPD or emphysema. She states her boyfriend and roommate have been sick with congestion and cough and she has had similar symptoms for the past 2 to 3 days. She states she feels like symptoms are worsening and secondary to this EMS was called to bring her in for evaluation. Patient also reports that she has been out of her daily medications for approximately 2 months and states she has not been able to follow-up with her doctor to get a refill [facility] Medical History Tobacco abuse Hyperlipidemia History of non-ST elevation myocardial infarction (NSTEMI) Obesity (BMI 30-39.9) Visual disturbance Psoriasis HTN (hypertension) Diabetes Home Medications ???Medication ???Instructions ???Recorded ???Last Taken ???Type HumaLOG KwikPen Insulin See Rx Instructions subcut 3XD Unknown History Held on 11/02/24. DIABETES Instructions: pt hasn't taken med in 2 months, needs refill aspirin 81 mg chewable tablet 1 tab PO DAILY heart health Unknown History Held on 11/02/24. Instructions: pt hasn't taken med in 2 months, needs refill buspirone 7.5 mg tablet 7.5 mg PO BID mental health Unknown History Held on 11/02/24. Instructions: pt hasn't taken med in 2 months, needs refill carvedilol 6.25 mg tablet 6.25 mg PO BID blood pressure 06/26 01/16 Unknown History Held on 11/02/24. Instructions: pt hasn't taken med in 2 months, needs refill empagliflozin 10 mg tablet 10 mg PO DAILY diabetes 07/18/24 U nknown History (Jardiance) Held on 11/02/24. Instructions: pt hasn't taken med in 2 months, needs refill insulin glargine 100 unit/mL (3 26 unit subcut QPM diabetes Unknown History mL) subcutaneous pen (Lantus Solostar U-100 Insulin) Held on 11/02/24. Instructions: pt hasn't taken med in 2 months, needs refill losartan 50 mg tablet 50 mg PO DAILY blood pressure 06/26 01/16 Unknown History ropinirole 0.5 mg tablet 0.5 mg PO TID restless leg 4 Unknown History Held on 11/02/24. Instructions: pt hasn't taken med in 2 months, needs refill sertraline 25 mg tablet 25 mg PO DAILY mental health 07/18 Unknown History Held on 11/02/24. Instructions: pt hasn't taken med in 2 months, needs refill ticagrelor 90 mg tablet (Brilinta) 90 mg PO BID anti platelet 07/18 Unknown History Held on 11/02/24. Instructions: pt hasn't taken med in 2 months, needs refill atorvastatin 40 mg tablet 80 mg (2 x 40 mg) PO DAILY 30 days 07/20/24 Unknown Rx Held on 11/02/24. #60 tabs Instructions: pt hasn't taken med in 2 months, needs refill meclizine 12.5 mg tablet 12.5 mg PO TID PRN PRN Dizziness 1 Unknown Rx Held on 11/02/24. #20 tabs Instructions: pt hasn't taken med in 2 months, needs refill amlodipine 5 mg tablet 5 mg PO BID #60 tabs 07/25/24 Unkn own Rx Held on 11/02/24. Instructions: pt hasn't taken med in 2 months, needs refill Allergy/AdvReac Type Severity Reaction Status Date / Time No Known Allergies Allergy Verified 08/08/24 16:08 Surgical History History of nasal surgery Hx of lymph node biopsy Hx of cholecystectomy Social History Smoking Status: Current every day smoker tobacco type: cigarettes ROS ROS ED Constitutional Constitutional ED: Denies chills or fever(s) Eyes Eyes: Denies change in vision ENT ENT ED: Reports rhinorrhea and sore throat Cardiovascular Cardiovascular: Denies chest pain Respiratory/Chest Respiratory/Chest: Reports cough and dyspnea Gastrointestinal Gastrointestinal: Denies abdominal pain, diarrhea, nausea or vomiting Genitourinary Genitourinary ED: Denies dysuria Musculoskeletal Musculoskeletal: Reports myalgias Integumentary Denies rash Neurologic Neurologic: Denies headache(s) Hematologic/Lymphati c Hematologic/Lymphati c: Denies easy bleeding or easy bruising Allergic/Immunologic Allergic/Immunologic ED: Denies mouth swelling or tongue swelling EXAM Physical Exa (more content not included)... Normal [facility] Liver Profileon 11-02-2024 Albumin [Mass/Vol] 3.3 g/dL Normal 3.2-5.0 [facility] Comment on above: Performed By: #### L 500.2500, L100.0100 #### [facility] [address] [place], [address] ALK P 138 U/L High 45-[address] [facility] Comment on above: Performed By: #### L 500.2500, L100.0100 #### [facility] [address] [place], [address] ALT [Catalytic activity/Vol] 34 U/L Normal 13-[address] [facility] Comment on above: Performed By: #### L 500.2500, L100.0100 #### [facility] [address] [place], [address] AST [Catalytic activity/Vol] 19 U/L Normal 15-[address] [facility] Comment on above: Performed By: #### L 500.2500, L100.0100 #### [facility] [address] [place], [address] Bilirubin [Mass/Vol] 0.30 mg/dL Normal 0.20-1.00 [facility] Comment on above: Result Comment: For patients on eltrombopag therapy, use of Dimension [place] TBIL is not recommended. Performed By: #### L 500.2500, L100.0100 #### [facility] [address] [place], [address] Bilirubin.direct [Mass/Vol] 0.12 mg/dL Normal 0.00-0.[address] [facility] Comment on above: Performed By: #### L 500.2500, L100.0100 #### [facility] [address] [place], [address] Globulin (S) [Mass/Vol] 4.5 g/dL High 2.2-4.2 [facility] Comment on above: Performed By: #### L 500.2500, L100.0100 #### [facility] [address] [place], [address] T PROT 7.8 g/dL Normal 6.4-8.[address] [facility] Comment on above: Performed By: #### L 500.2500, L100.0100 #### [facility] [address] [place], [address] M100.678on 11-02-2024 M100.678 SARS-CoV-2 (COVID 19) Negative INFLUENZA A Negative INFLUENZA B Negative RSV PCR A Positive A RSV Normal [facility] Comment on above: Performed By: #### L 499.0042 #### [facility] [address] [place], [address] Magnesiumon 11-02-2024 Magnesium [Mass/Vol] 2.1 mg/dL Normal 1.6-2.6 [facility] Comment on above: Performed By: #### L 500.2500, L100.0100 #### [facility] [address] [place], [address] 12 Lead EKGon 08-08-2024 12 Lead EKG [facility] [address] [place] [address] 12 Lead EKG 08/08/24 1722 MR#: [id number] Acct: [id number] Name: NEIL WELLINGTON Rep #: [id number] : 1970 53 From: Linus Ortega MD Attending Dr: Status: DEP ER Ordering Dr: Cricket Fuentes MD Date: 08/08/24 Location: ED Sex: F C Admitted: Test Reason : DIZZY Blood Pressure : */* mmHG Vent. Rate : 69 BPM Atrial Rate : 69 BPM P-R Int : 146 ms QRS Dur : 98 ms QT Int : 448 ms P-R-T Axes : -25 -47 94 degrees QTcB Int : 480 ms Normal sinus rhythm Left axis deviation T wave abnormality, consider lateral ischemia Prolonged QT Abnormal ECG Confirmed by TRISHA MOLINA, REFUGIO ([id number]), assignment editor TAN CAPONE ([id number]) on 08/13/2024 7:50:31 AM Referred By: Cricket Fuentes Confirmed By: REFUGIO ORTEGA MD 08/13/24 0750 Date Linus Ortega MD CC: Dr. Cricket Fuentse MD; No Primary Care Physician Signed Normal [facility] Brain/Head without Contrasto n 08-08-2024 Brain/Head without Contrast [facility] [address] [place], [place] [address] Brain/Head without Contrast MR#: [id number] Acct: [id number] Name: NEIL WELLINGTON Rep #: [id number] : 1970 F 53 From: Heraclio Valladares PCP: Care Physician,No Primary Status: REG ER Study: Brain/Head without Contrast Date of Exam: 07/26 01/16 Exam# [id number] Ordering Dr: Cricket Fuentes MD [id number] STUDY: CT BRAIN WITHOUT CONTRAST REASON FOR EXAM: Female, 53 years old. light headedness on thinner RADIATION DOSAGE (If Supplied By Facility): CTDIvol = ( 44.99 ) mGy, DLP = ( 846.73 ) mGycm TECHNIQUE: Transaxial CT imaging of the brain was performed without administration of intravenous contrast material. Individualized dose optimization techniques were used for this CT. The protocol utilizes one or more of the following dose reduction techniques: automated exposure control, adjustment of mA and/or kV according to patient size,and/or use of iterative reconstruction technique. COMPARISON: MR brain July 19, 2024. CT brain and CTA July 18, 2024. FINDINGS: Normal soft tissue structures. Normal calvarium. Normal size ventricles and extra-axial spaces for the patient''s age. Normal white matter tracts of the cerebral hemispheres. Normal basal ganglia and thalami. Normal brainstem. Normal cerebellum. Bilateral left greater than right occipital encephalomalacia unchanged. There is no intracranial hemorrhage. There are no findings of an acute ischemic infarction. Normal visualized paranasal sinuses. CT/Brain/Head without Contrast IMPRESSION: Remote bilateral occipital encephalomalacia. No acute disease. Electronically Signed: Heraclio Prince MD at 18:23 EST , CC: Dr. Cricket Fuentes MD; No Primary Care Physician Charge Auditor: Signed Normal [facility] CBC W/Diff, Automatedon 07-26 Absolute Lymph 3.14 X10 3/uL Normal 0.83-4.[address] [facility] Comment on above: Performed By: #### L 500.4050, L100.0100 #### [facility] [address] [place], [address] Absolute Neut 11.0 X10 3/uL High 2.0-7.[address] [facility] Comment on above: Performed By: #### L 500.4050, L100.0100 #### [facility] [address] [place], [address] Basophils/100 WBC (Bld) 0.7 % Normal 0-1 [facility] Comment on above: Performed By: #### L 500.4050, L100.0100 #### [facility] [address] [place], [address] Eosinophils/100 WBC (Bld) 2.2 % Normal 0-[address] [facility] Comment on above: Performed By: #### L 500.4050, L100.0100 #### [facility] [address] [place], [address] Erythrocyte distribution width (RBC) [Ratio] 12.9 % Normal 11.6-14.[address] [facility] Comment on above: Performed By: #### L 500.4050, L100.0100 #### [facility] [address] [place], [address] Hematocrit (Bld) [Volume fraction] 47.1 % High 37-[address] [facility] Comment on above: Performed By: #### L 500.4050, L100.0100 #### [facility] [address] [place], [address] Hemoglobin (Bld) [Mass/Vol] 16.2 g/dL High 12.0-15.[address] [facility] Comment on above: Performed By: #### L 500.4050, L100.0100 #### [facility] [address] [place], [address] IG% 0.600 Normal 0.0-0.[address] [facility] Comment on above: Result Comment: IG% - Immature Granulocytes (promyelocytes, myelocytes and metamyelocytes) > 1% indicates that a LEFT SHIFT is Present. Performed By: #### L 500.4050, L100.0100 #### [facility] [address] [place], [address] Lymphocytes/100 WBC (Bld) 20.0 % Normal 19-[address] [facility] Comment on above: Performed By: #### L 500.4050, L100.0100 #### [facility] [address] [place], [address] MCH (RBC) [Entitic mass] 30.5 pg Normal 27.0-32.[address] [facility] Comment on above: Performed By: #### L 500.4050, L100.0100 #### [facility] [address] [place], [address] MCHC (RBC) [Mass/Vol] 34.4 g/dL Normal 32-36 [facility] Comment on above: Performed By: #### L 500.4050, L100.0100 #### [facility] [address] [place], [address] MCV (RBC) [Entitic vol] 88.7 fL Normal 81-99 [facility] Comment on above: Performed By: #### L 500.4050, L100.0100 #### [facility] [address] [place], [address] Monocytes/100 WBC (Bld) 6.4 % Normal 0-10 [facility] Comment on above: Performed By: #### L 500.4050, L100.0100 #### [facility] [address] [place], [address] Neutrophils/100 WBC (Bld) 70.1 % High 47-[address] [facility] Comment on above: Performed By: #### L 500.4050, L100.0100 #### [facility] [address] [place], [address] Nucleated RBC (Bld) [#/Vol] 0 10*3/uL Normal 0-[address] [facility] Comment on above: Performed By: #### L 500.4050, L100.0100 #### [facility] [address] [place], [address] Platelet mean volume (Bld) [Entitic vol] 12.1 fL High 6.2-12.[address] [facility] Comment on above: Performed By: #### L 500.4050, L100.0100 #### [facility] [address] [place], [address] Platelets (Bld) [#/Vol] 230 10*3/uL Normal 150-[address] [facility] Comment on above: Performed By: #### L 500.4050, L100.0100 #### [facility] [address] [place], [address] RBC (Bld) [#/Vol] 5.31 10*6/uL Normal 4.2-5.4 [facility] Comment on above: Performed By: #### L 500.4050, L100.0100 #### [facility] [address] [place], [address] RDW SD 42.1 fl Normal 35.1-43.[address] [facility] Comment on above: Performed By: #### L 500.4050, L100.0100 #### [facility] [address] [place], [address] WBC (Bld) [#/Vol] 15.7 10*3/uL High 4.4-11.0 [facility] Comment on above: Performed By: #### L 500.4050, L100.0100 #### [facility] [address] [place], [place], [address] Chest PA and Lateralon 08-08 Chest PA and Lateral [facility] [address] [place] [address] Chest PA and Lateral MR#: [id number] Acct: [id number] Name: NEIL WELLINGTON Rep #: [id number] : 1970 F 53 From: Heraclio Valladares PCP: Care Physician,No Primary Status: [facility] ER Study: Chest PA and Lateral Date of Exam: 08/08/24 Exam# [id number] Ordering Dr: Cricket Fuentes MD [id number] STUDY: X-RAY CHEST REASON FOR EXAM: Female, 53 years old. weakness TECHNIQUE: Single frontal view of the chest. COMPARISON: Chest x-ray July 18, 2024 FINDINGS: New electronic device projects over the right mediastinum. Loop recorder projects over the left chest. The lungs are clear and expanded. There is no demonstrated pleural abnormality. Normal size heart. Normal mediastinum and haylie. Normal visualized pulmonary arteries. Normal visualized aortic arch and descending thoracic aorta. Normal visualized thoracic spine. Normal visualized ribs, clavicles, and shoulders. There is no demonstrated abnormality of the visualized soft tissue structures of the upper abdomen. RAD/Chest PA and Lateral IMPRESSION: New electronic device right mid chest. Clinical correlation required. No acute disease otherwise. Electronically Signed: Heraclio Prince MD at 18:46 EST , CC: Dr. Cricket Fuentes MD; No Primary Care Physician Charge Auditor: Signed Normal [facility] Comprehensive Metabolic Prof ilon 08-08-2024 Albumin [Mass/Vol] 3.9 g/dL Normal 3.2-5.0 [facility] Comment on above: Performed By: #### L 500.4050, L100.0100 #### [facility] [address] [place], [address] Albumin/Globulin [Mass ratio] 0.9 {ratio} Normal 0.9-2.[address] [facility] Comment on above: Performed By: #### L 500.4050, L100.0100 #### [facility] [address] [place], [address] ALK P 139 U/L High 45-[address] [facility] Comment on above: Performed By: #### L 500.4050, L100.0100 #### [facility] [address] [place], [address] ALT [Catalytic activity/Vol] 22 U/L Normal 13-[address] [facility] Comment on above: Performed By: #### L 500.4050, L100.0100 #### [facility] [address] [place], [address] AST [Catalytic activity/Vol] 9 U/L Low 15-[address] [facility] Comment on above: Performed By: #### L 500.4050, L100.0100 #### [facility] [address] [place], [address] Bilirubin [Mass/Vol] 0.90 mg/dL Normal 0.20-1.00 [facility] Comment on above: Result Comment: For patients on eltrombopag therapy, use of Dimension [place] TBIL is not recommended. Performed By: #### L 500.4050, L100.0100 #### [facility] [address] [place], [address] BUN/CRE 14.0 RATIO Normal 10-[address] [facility] Comment on above: Performed By: #### L 500.4050, L100.0100 #### [facility] [address] [place], [address] CA,Total 9.5 mg/dL Normal 8.5-10.[address] [facility] Comment on above: Performed By: #### L 500.4050, L100.0100 #### [facility] [address] [place], [address] Chloride [Moles/Vol] 103 mmol/L Normal 98-107 [facility] Comment on above: Performed By: #### L 500.4050, L100.0100 #### [facility] [address] [place], [address] CO2 [Moles/Vol] 23.0 mmol/L Normal 21.0-32.[address] [facility] Comment on above: Performed By: #### L 500.4050, L100.0100 #### [facility] [address] [place], [address] Creatinine [Mass/Vol] 1.07 mg/dL High 0.55-1.02 [facility] Comment on above: Result Comment: The validity of the calculated GFR GFRAA in patients over 70 years has not been determined. Clinical correlation is essential. Performed By: #### L 500.4050, L100.0100 #### [facility] [address] [place], [address] EST GFR - AA 69 mL/min Normal >[address] [facility] Comment on above: Result Comment: Afri can Lebanese GFR Calc Performed By: #### L 500.4050, L100.0100 #### [facility] [address] [place], [address] GAP 9 Normal 5-[address] [facility] Comment on above: Performed By: #### L 500.4050, L100.0100 #### [facility] [address] [place], [address] GFR/1.73 sq M.predicted among non-blacks MDRD (S/P/Bld) [Vol rate/Area] 57 mL/min/{1.73_m2} Low >[address] [facility] Comment on above: Result Comment: Non- GFR Calc Performed By: #### L 500.4050, L100.0100 #### [facility] [address] [place], [address] Globulin (S) [Mass/Vol] 4.3 g/dL High 2.2-4.2 [facility] Comment on above: Performed By: #### L 500.4050, L100.0100 #### [facility] [address] [place], [address] Glucose [Mass/Vol] 262 mg/dL High 74-106 [facility] Comment on above: Result Comment: Gluc ose result greater than or equal to 200 mg/dL suggests DIABETES MELLITUS per A.D.A. criteria. Performed By: #### L 500.4050, L100.0100 #### [facility] [address] [place], [address] Potassium [Moles/Vol] 3.5 mmol/L Normal 3.5-5.1 [facility] Comment on above: Performed By: #### L 500.4050, L100.0100 #### [facility] [address] [place], [address] Sodium [Moles/Vol] 136 mmol/L Normal 136-145 [facility] Comment on above: Performed By: #### L 500.4050, L100.0100 #### [facility] [address] [place], [address] T PROT 8.2 g/dL Normal 6.4-8.[address] [facility] Comment on above: Performed By: #### L 500.4050, L100.0100 #### [facility] [address] [place], [address] Urea nitrogen [Mass/Vol] 15 mg/dL Normal 7-[address] [facility] Comment on above: Performed By: #### L 500.4050, L100.0100 #### [facility] [address] [place], [address] Emergency Department Summary on 08-08-2024 Emergency Department Summary [facility] Medical Records Department [address] [facility] [place] [address] Emergency Department Summary 08/08/24 MR#: [id number] Acct: [id number] Name: NEIL WELLINGTON Rep #: [id number] : 1970 53 From: Cricket Fuentes MD PCP: Care Physician,No Primary Status:DEP ER Location: ED HPI History of Present Illness Chief Complaint: Dizziness Detail of Chief Complaint: Lightheadedness Informant: patient Onset/Context/Timing Onset: Today and Hours Context: Gradual Onset Timing: Continuous Current Severity: Mild Maximum Severity: Mild Narrative Narrative: 53-year-old female history of stroke x 3, [place] on Brilinta and diabetes. History of stents. States about an hour prior to arrival she felt "fuzzy" at home. Like lightheadedness. Associated nausea no vomiting. No chest pain. No shortness of breath. Says she took her blood pressure at home it was 104 over something. For her that is low. Says she just overall feels tired. Nausea but no vomiting. No diarrhea or melena. No dysuria or fever. Prior similar symptoms: No Recent Illness/Hospitalizat ion: Yes PFSH PFS Medical History Tobacco abuse Hyperlipidemia History of non-ST elevation myocardial infarction (NSTEMI) Obesity (BMI 30-39.9) Visual disturbance Psoriasis HTN (hypertension) Diabetes Home Medications ???Medication ???Instructions ???Recorded ???Last Taken ???Type HumaLOG KwikPen Insulin See Rx Instructions subcut 3XD 07/18/24 Unknown History DIABETES aspirin 81 mg chewable tablet 1 tab PO DAILY heart health 07/18/24 Unknown History buspirone 7.5 mg tablet 7.5 mg PO BID mental health 07/18/24 Unknown History carvedilol 6.25 mg tablet 6.25 mg PO BID blood pressure 07/18/24 Unknown History empagliflozin 10 mg tablet 10 mg PO DAILY diabetes 07/18/24 Unknown History (Jardiance) insulin glargine 100 unit/mL (3 26 unit subcut QPM diabetes 07/18/24 Unknown History mL) subcutaneous pen (Lantus Solostar U-100 Insulin) losartan 50 mg tablet 50 mg PO DAILY blood pressure 07/18/24 Unknown History ropinirole 0.5 mg tablet 0.5 mg PO TID restless leg 07/18/24 Unknown History sertraline 25 mg tablet 25 mg PO DAILY mental health 07/18/24 Unknown History ticagrelor 90 mg tablet (Brilinta) 90 mg PO BID anti platelet 07/18/24 Unknown History atorvastatin 40 mg tablet 80 mg (2 x 40 mg) PO DAILY 30 days 07/20/24 Unknown Rx #60 tabs meclizine 12.5 mg tablet 12.5 mg PO TID PRN PRN Dizziness 07/20/24 Unknown Rx #20 tabs amlodipine 5 mg tablet 5 mg PO BID #60 tabs 07/25/24 Unknown Rx Allergy/AdvReac Type Severity Reaction Status Date / Time No Known Allergies Allergy Verified 08/08/24 16:08 Surgical History History of nasal surgery Hx of lymph node biopsy Hx of cholecystectomy Social History Smoking Status: Current every day smoker tobacco type: cigarettes ROS ROS ED ROS Narrative Lightheadedness. Nausea without vomiting. No fever. No dysuria. No chest pain. Constitutional Constitutional ED: Denies chills or fever(s) Eyes Eyes: Denies blurry vision ENT ENT ED: Denies ear pain Cardiovascular Cardiovascular: Denies chest pain Respiratory/Chest Respiratory/Chest: Denies cough or dyspnea Gastrointestinal Gastrointestinal: Reports nausea; Denies abdominal pain, constipation, diarrhea, melena or vomiting Genitourinary Genitourinary ED: Denies dysuria or hematuria Musculoskeletal Musculoskeletal: Denies arthralgias Integumentary Denies abscess Neurologic Neurologic: Reports headache(s) Psychiatric Psychiatric: Denies anxiety Endocrine Endocrinology: Denies cold intolerance Hematologic/Lymphati c Hematologic/Lymphati c: Reports none Allergic/Immunologic Allergic/Immunologic ED: Denies mouth swelling, tongue swelling or urticaria EXAM Physical Exam Narrative Exam Narrative: Well-appearing middle-aged female. Vital signs are stable afebrile. Pulse ox 97% on room air. Initial blood pressure 120/90. She does not look septic or toxic. She is in no distress. H EENT exam unremarkable. Pupils round reactive light. Extra motions are intact. No facial droop. Normal speech. Neck nontender no lymphadenopathy. Lungs clear to auscultation bilaterally. Heart regular rate rhythm rate about 70 no murmur. Chest wall ribs nontender. Abdomen soft nontender. No peritoneal signs. Moving all 4 extremities. 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 Radial pulses are equal and symmetrical. Dorsi plantarflexion intact. No drift. Calves are nontender without edema or cords. Back nontender. She is awake and alert. No focal motor deficits. NIH 0. Answering questions and following commands. Const Vital Signs: 08/08/24 (more content not included)... Normal [facility] Urinalysis, Completeon 08-08 RBC 5-10 SEEN Normal 0-[address] [facility] Comment on above: Order Comment: CLEAN CATCH Performed By: #### L 500.2500, L100.0100 #### [facility] [address] [place], [address] WBC 25-50 SEEN Normal 0-[address] [facility] Comment on above: Order Comment: CLEAN CATCH Performed By: #### L 500.2500, L100.0100 #### [facility] [address] [place], [address] BACTERIA 1+ /hpf Normal None Seen [facility] Comment on above: Order Comment: CLEAN CATCH Performed By: #### L 500.2500, L100.0100 #### [facility] [address] [place], [address] EPI,SQUAMOUS 5-10 SEEN Normal 5-[address] [facility] Comment on above: Order Comment: CLEAN CATCH Performed By: #### L 500.2500, L100.0100 #### [facility] [address] [place], [address] Mucus Ql (Urine sed) 0 SEEN Normal [facility] Comment on above: Order Comment: CLEAN CATCH Performed By: #### L 500.2500, L100.0100 #### [facility] [address] [place], [address] Basic metabolic 2000 panelon 04-02-2024 Anion gap [Moles/Vol] 12 mmol/L [facility] Calcium [Mass/Vol] 9.2 mg/dL 8.5 - 9.9 mg/dL [facility] Chloride [Moles/Vol] 99 mmol/L [facility] CO2 [Moles/Vol] 23 mmol/L [facility] [employer] Creatinine [Mass/Vol] 1.06 mg/dL High 0.50 - 0.90 mg/dL [facility] GFR/1.73 sq M.predicted among non-blacks MDRD (S/P/Bld) [Vol rate/Area] 63.0 mL/min/{1.73_m2} 60 - PINF [facility] Comment on above: Pediatric calculator link https://www.kidney.org/professionals/kdoqi/gfr_calculatorped Effective Jun 27, 2022 These results are not intended for use in patients <18 years of age. eGFR results are calculated without a race factor using the 2020 CKD-EPI equation. Careful clinical correlation is recommended, particularly when comparing to results calculated using previous equations. The CKD-EPI equation is less accurate in patients with extremes of muscle mass, extra-renal metabolism of creatinine, excessive creatinine ingestion, or following therapy that affects renal tubular secretion. Glucose [Mass/Vol] 211 mg/dL High 70 - 99 mg/dL [facility] Interpretation and review of laboratory results Abnormal [facility] Potassium [Moles/Vol] 4.6 mmol/L [facility] Sodium [Moles/Vol] 134 mmol/L Low [facility] Urea nitrogen [Mass/Vol] 21 mg/dL High 6 - 20 mg/dL [facility] CBC W Auto Differential pane l (Bld)on 04-02-2024 Basophils (Bld) [#/Vol] 0.1 10*3/uL 0.0 - 0.2 K/uL [facility] Basophils/100 WBC (Bld) 0.5 % B ON [facility] Eosinophils (Bld) [#/Vol] 0.4 10*3/uL 0.0 - 0.7 K/uL [facility] Eosinophils/100 WBC (Bld) 3.0 % [facility] Erythrocyte distribution width (RBC) [Ratio] 12.9 % 11.5 - 14.5 % [facility] Hematocrit (Bld) [Volume fraction] 39.3 % 37.0 - 47.0 % [facility] Hemoglobin (Bld) [Mass/Vol] 12.9 g/dL 12.0 - 16.0 g/dL [facility] Interpretation and review of laboratory results Abnormal [facility] Lymphocytes (Bld) [#/Vol] 3.0 10*3/uL 1.0 - 4.8 K/uL [facility] Lymphocytes/100 WBC (Bld) 24.4 % [facility] MCH (RBC) [Entitic mass] 28.7 pg 27.0 - 31.3 pg [facility] MCHC (RBC) [Mass/Vol] 32.8 % Low 33.0 - 37.0 % [facility] MCV (RBC) [Entitic vol] 87.5 fL 79.4 - 94.8 fL [facility] Monocytes (Bld) [#/Vol] 1.1 10*3/uL High 0.2 - 0.8 K/uL [facility] Monocytes/100 WBC (Bld) 8.6 % B ON [facility] Neutrophils (Bld) [#/Vol] 7.8 10*3/uL High 1.4 - 6.5 K/uL [facility] Platelets (Bld) [#/Vol] 353 10*3/uL 130 - 400 K/uL [facility] RBC (Bld) [#/Vol] 4.49 10*6/uL [facility] [employer] [facility] Segmented neutrophils/100 WBC (Bld) 63.1 % [facility] WBC (Bld) [#/Vol] 12.3 10*3/uL High 4.8 - 10.8 K/uL [facility] EKG Rhythm Stripon MS [facility] MB [facility] POCT Glucoseon 04-02-2024 Glucose [Mass/Vol] 259 mg/dL High 70 - 99 mg/dl [facility] Interpretation and review of laboratory results Abnormal [facility] Performed on ACCU-CHEK [facility] Glucose [Mass/Vol] 189 mg/dL High 70 - 99 mg/dl [facility] Interpretation and review of laboratory results Abnormal [facility] Performed on ACCU-CHEK [facility] ANTI-DNA ANTIBODY, DOUBLE-ST RANDEDon 04-01-2024 DNA double strand Ab IF Crithidia luciliae (S) [Titer] 12 [facility] Comment on above: INTERPRETIVE INFORMA TION: Double-Stranded DNA (dsDNA) Ab IgG TEE 24 IU or less........Negative 25-30 IU.............Borderline Positive 30-60 IU.............Low Positive 60-200 IU............Positive 201 IU or greater....Strong Positive Positivity for anti-double stranded DNA (anti-dsDNA) IgG antibody is a diagnostic criterion of systemic lupus erythematosus (SLE). Specimens are initially screened by enzyme-linked immunosorbent assay (TEE). If ordered as reflex ([id number]), positive TEE results (>24 IU) will be reflexed to a highly specific IFA titer (Crithidia luciliae indirect fluorescent test [NEEMA]) for confirmation. Some patients with early or inactive SLE may be positive for anti-dsDNA IgG by TEE but negative by NEEMA. If the patient is negative by NEEMA but positive by TEE and clinical suspicion remains, consider antinuclear antibody (DANNY) testing by IFA. Additional information and recommendations for testing may be found at [email or web address]/[email or web address]-hqasn-pgcdjptiluohp. Performed by [facility], [address] [place] [id number] [email or web address], Estevan Orozco MD, Lab. Director [facility] Number: [id number] DNA double strand Ab IF Crit hidia luciliae (S) [Titer]on 04-01-2024 [facility] EKG Rhythm Stripon JLV [facility] Lupus Anticoagulant Reflex P anelon 04-01-2024 aPTT.lupus sensitive Coag (PPP) [Time] Not performed NINF - 1.20 [facility] aPTT.lupus sensitive/aPTT.lupus sensitive W excess phospholipid Coag (PPP) [Ratio] 1.10 NINF - 1.20 [facility] dRVVT w 1:1 PNP Coag (PPP) [Time] 1.20 NIN - 1.20 [facility] dRVVT W excess hexagonal phase phospholipid Coag (PPP) [Time] Not performed NINF - 7.9 s [facility] dRVVT/dRVVT.excess phospholipid Coag (PPP) [Ratio] 1.24 High NINF - 1.20 [facility] dRVVT/dRVVT.excess phospholipid Coag (PPP) [Ratio] 1.00 NINF - 1.20 [facility] Heparin neutralization Ql (PPP) Not performed Not Performed [facility] Interpretation and review of laboratory results Abnormal [facility] Low molecular weight heparin induced platelet Ab Ql (S) Not Present Not Present [facility] Lupus anticoagulant three screening tests W Reflex Coag (PPP) [Interp] See Note [facility] Comment on above: Lupus anticoagulant not detected. This panel did not detect evidence for heparin, direct thrombin inhibitors, or direct Xa inhibitors and drug neutralization was not performed. Lupus anticoagulant antibodies are heterogeneous and antibody titers fluctuate over time. Laboratory tests used to identify lupus anticoagulant demonstrate variable sensitivity. Testing is best performed when the patient is not acutely ill and not anticoagulated. If there is strong clinical suspicion for antiphospholipid antibody syndrome (APS), consider testing for cardiolipin and beta-2 glycoprotein 1 antibodies (IgG and IgM) if this testing has not already been performed. INTERPRETIVE INFORMATION: Lupus Anticoagulant Reflex Panel This test was developed and its performance characteristics determined by [facility]. It has not been cleared or approved by the U.S. Food and Drug Administration. This test was performed in a CLIA-certified laboratory and is intended for clinical purposes. Performed By: [facility] [address] [place] [id number] Electronic Publications Specialist: Shine Hinton MD, PhD CLIA Number: [id number] Neutralized dRVVT Screen Ratio Not performed NINF - 1.20 [facility] [employer] PT Coag (PPP) [Time] 14.1 s 12.0 - 15.5 s [facility]ON[facility] [employer] Thrombin time Coag (PPP) [Time] Not performed NINF - 19.5 s [facility]ON[facility] NOR[facility]Federal Finance [facility] POCT Glucoseon 04-01-2024 Glucose [Mass/Vol] 217 mg/dL High 70 - 99 mg/dl [facility] Interpretation and review of laboratory results Abnormal [facility] Performed on ACCU-CHEK [facility] Glucose [Mass/Vol] 324 mg/dL High 70 - 99 mg/dl [facility] Interpretation and review of laboratory results Abnormal [facility] Performed on ACCU-CHEK [facility] Glucose [Mass/Vol] 179 mg/dL High 70 - 99 mg/dl [facility] Interpretation and review of laboratory results Abnormal [facility] Performed on ACCU-CHEK [facility] US Heart Transesophagealon 0 04-01-2024 Body surface area Derived from formula 2.2 m2 [facility] [employer] MR Radius PISA 0.59 cm [facility] Big Live MR Regurg Volume PISA 18.83 mL [facility] MR VTI 104.6 cm DIPAK [facility] MV EROA PISA 0.2 cm2 [facility] MV Nyquist Velocity 28 cm/s DIPAK [facility] MV Regurg Velocity PISA 3.4 m/s B ON [facility] Addendum by Fara Soto DO on 04/01/2024 3:08 PM EDT Left Ventricle: Normal left ventricular systolic function with a visually estimated EF of 55 - 60%. Left ventricle size is normal. Moderately increased wall thickness. Normal wall motion. Mitral Valve: Mildly thickened, at the anterior and posterior leaflets. Moderate to severe regurgitation with an eccentrically directed jet and may underestimate severity. Left Atrium: Left atrium is moderately dilated. Normal sized appendage. No left atrial appendage thrombus noted. No left atrial appendage mass noted. Interatrial Septum: No interatrial shunt visualized with color Doppler. Agitated saline study was negative with and without provocation. Pericardium: Trivial localized pericardial effusion present around the right ventricle. No indication of cardiac tamponade. Image quality is adequate. Left Ventricle Normal left ventricular systolic function with a visually estimated EF of 55 - 60%. Left ventricle size is normal. Moderately increased wall thickness. Normal wall motion. Right Ventricle Right ventricle size is normal. Normal systolic function. Left Atrium Left atrium is moderately dilated. Normal sized appendage. No left atrial appendage thrombus noted. No left atrial appendage mass noted. Normal sized pulmonary veins. Right Atrium Right atrium size is normal. IVC/SVC IVC size is normal. Mitral Valve Mildly thickened, at the anterior and posterior leaflets. Moderate to severe regurgitation with an eccentrically directed jet and may underestimate severity. MV regurgitant volume by PISA is 18.83 mL. MV EROA by PISA is 0.2 cm2. The jet appears to be anterior directed with Coanda effect. No stenosis noted. Tricuspid Valve Valve structure is normal. Trace regurgitation. No stenosis noted. Aortic Valve Trileaflet valve. Mild sclerosis of the aortic valve, left, right and noncoronary cusps. No regurgitation. No stenosis. Pulmonic Valve Valve structure is normal. No regurgitation. No stenosis noted. Ascending Aorta Normal sized aortic root and ascending aorta. Pericardium Trivial localized pericardial effusion present around the right ventricle. No indication of cardiac tamponade. Septum No interatrial shunt visualized with color Doppler. Agitated saline study was negative with and without provocation. Pulmonary Artery Normal pulmonary arteries. Extracardiac No pleural effusion present. Study Details Image quality: adequate. The underlying ECG rhythm was sinus rhythm. The procedure, risks and alternatives were explained. Informed consent was obtained. ANNY probe number: [id number]. ANNY probe was inserted by the volleyball player with minimal difficulty. Benzocaine spray topical anesthetic was applied. Sedation was achieved by conscious sedation. 3 mg Versed was administered. 75 mcg of Fentanyl was administered. No complications. Color flow Doppler was performed and pulse wave and/or continuous wave Doppler was performed. Saline contrast was given to evaluate for intracardiac shunt. Wall Scoring Baseline Score Index: 1.00 The left ventricular wall motion is normal. [facility] [employer] [facility] [employer] Radiology Study observation (narrative) [facility] Basic metabolic 2000 panelon 03-31-2024 Anion gap [Moles/Vol] 14 mmol/L [facility] [employer] Calcium [Mass/Vol] 9.4 mg/dL 8.5 - 9.9 mg/dL [facility] Chloride [Moles/Vol] 100 mmol/L [facility] CO2 [Moles/Vol] 21 mmol/L [facility] Creatinine [Mass/Vol] 1.23 mg/dL High 0.50 - 0.90 mg/dL [facility] GFR/1.73 sq M.predicted among non-blacks MDRD (S/P/Bld) [Vol rate/Area] 52.7 mL/min/{1.73_m2} Low 60 - PINF [facility] Comment on above: Pediatric calculator link https://www.kidney.org/professionals/kdoqi/gfr_calculatorped Effective Jun 27, 2022 These results are not intended for use in patients <18 years of age. eGFR results are calculated without a race factor using the 2020 CKD-EPI equation. Careful clinical correlation is recommended, particularly when comparing to results calculated using previous equations. The CKD-EPI equation is less accurate in patients with extremes of muscle mass, extra-renal metabolism of creatinine, excessive creatinine ingestion, or following therapy that affects renal tubular secretion. Glucose [Mass/Vol] 182 mg/dL High 70 - 99 mg/dL [facility] Interpretation and review of laboratory results Abnormal [facility] Potassium [Moles/Vol] 4.4 mmol/L [facility] Sodium [Moles/Vol] 135 mmol/L [facility] Urea nitrogen [Mass/Vol] 28 mg/dL High 6 - 20 mg/dL [facility] CBC W Auto Differential pane l (Bld)on 03-31-2024 Basophils (Bld) [#/Vol] 0.1 10*3/uL 0.0 - 0.2 K/uL [facility] Basophils/100 WBC (Bld) 0.7 % B ON [facility] Eosinophils (Bld) [#/Vol] 0.2 10*3/uL 0.0 - 0.7 K/uL [facility] Eosinophils/100 WBC (Bld) 1.6 % [facility] Erythrocyte distribution width (RBC) [Ratio] 13.2 % 11.5 - 14.5 % [facility] Hematocrit (Bld) [Volume fraction] 38.5 % 37.0 - 47.0 % [facility] Hemoglobin (Bld) [Mass/Vol] 12.7 g/dL 12.0 - 16.0 g/dL [facility] Interpretation and review of laboratory results Abnormal [facility] Lymphocytes (Bld) [#/Vol] 2.8 10*3/uL 1.0 - 4.8 K/uL [facility] Lymphocytes/100 WBC (Bld) 20.9 % [facility] MCH (RBC) [Entitic mass] 29.0 pg 27.0 - 31.3 pg [facility] MCHC (RBC) [Mass/Vol] 33.0 % 33.0 - 37.0 % [facility] MCV (RBC) [Entitic vol] 87.9 fL 79.4 - 94.8 fL [facility] Monocytes (Bld) [#/Vol] 1.0 10*3/uL High 0.2 - 0.8 K/uL [facility] Monocytes/100 WBC (Bld) 7.2 % B ON [facility] Neutrophils (Bld) [#/Vol] 9.4 10*3/uL High 1.4 - 6.5 K/uL [facility] Platelets (Bld) [#/Vol] 367 10*3/uL 130 - 400 K/uL [facility] RBC (Bld) [#/Vol] 4.38 10*6/uL [facility] Segmented neutrophils/100 WBC (Bld) 69.0 % [facility] WBC (Bld) [#/Vol] 13.6 10*3/uL High 4.8 - 10.8 K/uL [facility] CT Head WO contraston 2023 Low-attenuation areas identified within the bilateral occipital lobes representing areas of evolving infarction. No acute intracranial hemorrhage, new mass effect or midline shift. [facility] EXAMINATION: CT OF THE HEAD WITHOUT CONTRAST 03/31/2024 7:40 am TECHNIQUE: CT of the head was performed without the administration of intravenous contrast. Automated exposure control, iterative reconstruction, and/or weight based adjustment of the mA/kV was utilized to reduce the radiation dose to as low as reasonably achievable. COMPARISON: MRI brain 03/30/2024 HISTORY: ORDERING SYSTEM PROVIDED HISTORY: f/u heamorrhagic transformation TECHNOLOGIST PROVIDED HISTORY: Reason for exam:->f/u heamorrhagic transformation Has a "code stroke" or "stroke alert" been called?->No What reading provider will be dictating this exam?->CRC FINDINGS: BRAIN/VENTRICLES: Low-attenuation areas identified within the bilateral occipital lobes representing areas of evolving infarction. Areas of subacute subarachnoid hemorrhage in the left occipital region on the MRI is not well appreciated on this examination. There is no acute intracranial hemorrhage, new mass effect or midline shift. No abnormal extra-axial fluid collection. There is no evidence of hydrocephalus. ORBITS: The visualized portion of the orbits demonstrate no acute abnormality. SINUSES: The visualized paranasal sinuses and mastoid air cells demonstrate no acute abnormality. SOFT TISSUES/SKULL: No acute abnormality of the visualized skull or soft tissues. [facility] Candy Ha MD - 03/31/2024 EXAMINATION: CT OF THE HEAD WITHOUT CONTRAST 03/31/2024 7:40 am TECHNIQUE: CT of the head was performed without the administration of intravenous contrast. Automated exposure control, iterative reconstruction, and/or weight based adjustment of the mA/kV was utilized to reduce the radiation dose to as low as reasonably achievable. COMPARISON: MRI brain 03/30/2024 HISTORY: ORDERING SYSTEM PROVIDED HISTORY: f/u heamorrhagic transformation TECHNOLOGIST PROVIDED HISTORY: Reason for exam:->f/u heamorrhagic transformation Has a "code stroke" or "stroke alert" been called?->No What reading provider will be dictating this exam?->CRC FINDINGS: BRAIN/VENTRICLES: Low-attenuation areas identified within the bilateral occipital lobes representing areas of evolving infarction. Areas of subacute subarachnoid hemorrhage in the left occipital region on the MRI is not well appreciated on this examination. There is no acute intracranial hemorrhage, new mass effect or midline shift. No abnormal extra-axial fluid collection. There is no evidence of hydrocephalus. ORBITS: The visualized portion of the orbits demonstrate no acute abnormality. SINUSES: The visualized paranasal sinuses and mastoid air cells demonstrate no acute abnormality. SOFT TISSUES/SKULL: No acute abnormality of the visualized skull or soft tissues. IMPRESSION: Low-attenuation areas identified within the bilateral occipital lobes representing areas of evolving infarction. No acute intracranial hemorrhage, new mass effect or midline shift. [facility] Radiology Study observation (narrative) [facility] CT Head WO contrastOrdered B y: Candy Ha on 03-31-2024 [facility] Work Phone: EKG Rhythm Stripon 4 [facility] SY [facility] MPO/AZ-3(ANCA) ABSon 024 Myeloperoxidase Ab Qn (S) 0 AU/mL 0 - 19 AU/mL [facility] Comment on above: INTERPRETIVE INFORMA TION: Myeloperoxidase Abs, IgG 19 AU/mL or Less ......... Negative 20-25 AU/mL .............. Equivocal 26 AU/mL or Greater ...... Positive Approximately 90% of patients with a P-ANCA pattern by IFA have antibodies specific for MPO. Proteinase 3 Ab Qn (S) 1 AU/mL 0 - 19 AU/mL [facility]ONMission Control TechnologiesBLUFFTON [facility]OS[facility]ITAL Comment on above: INTERPRETIVE INFORMA TION: Serine Proteinase 3, IgG 19 AU/mL or Less ........ Negative 20-25 AU/mL ............. Equivocal 26 AU/mL or Greater ..... Positive Approximately 85% of patients with a C-ANCA pattern by IFA have antibodies specific for PR3. Performed By: [facility] [address] [place] [id number] Electronic Publications Specialist: Shine Hinton MD, PhD CLIA Number: [id number] [facility]BL[facility] POCT Glucoseon 03-31-2024 Glucose [Mass/Vol] 254 mg/dL High 70 - 99 mg/dl [facility]ONFederal Finance [facility] Interpretation and review of laboratory results Abnormal [facility]ON[facility] Performed on ACCU-CHEK [facility]HTONFederal Finance [facility] Glucose [Mass/Vol] 350 mg/dL High 70 - 99 mg/dl [facility] Interpretation and review of laboratory results Abnormal [facility]ON[facility] Performed on ACCU-CHEK [facility]ONFederal Finance [facility] Glucose [Mass/Vol] 184 mg/dL High 70 - 99 mg/dl [facility] Interpretation and review of laboratory results Abnormal [facility]ON[facility] Performed on ACCU-CHEK [facility]HTONFederal Finance [facility]ONFederal Finance [facility] Glucose [Mass/Vol] 164 mg/dL High 70 - 99 mg/dl [facility] Interpretation and review of laboratory results Abnormal [facility]HTONMission Control TechnologiesBLUFFTON HOSPITAL Performed on ACCU-CHEK [facility] Glucose [Mass/Vol] 137 mg/dL High 70 - 99 mg/dl [facility] Interpretation and review of laboratory results Abnormal [employer] [facility] MARYVALEFederal Finance [facility] Performed on ACCU-CHEK [facility]HTONFederal Finance [facility] Glucose [Mass/Vol] 135 mg/dL High 70 - 99 mg/dl [facility] Interpretation and review of laboratory results Abnormal [employer] [facility] MARYVALEMission Control TechnologiesBLUFFTON HOSPITAL Performed on ACCU-CHEK [facility]ONMission Control Technologies HEALTH [facility]HTONMission Control TechnologiesBLUFFTON HOSPITAL Bacteria identified Cx Nom ( U)on 03-30-2024 ORDER#: [id number] ORDERED BY: MEG MATAMOROS SOURCE: Urine Clean Catch COLLECTED: 03/29/24 08:37 ANTIBIOTICS AT DOV.: RECEIVED : 03/29/24 08:37 [facility] CARDIOLIPIN ANTIBODIES IGG & IGMon 03-30-2024 Cardiolipin IgG IA Qn (S) [facility] Comment on above: INTERPRETIVE INFORMA TION: Anti-Cardiolipin IgG Ab <=14 GPL: Negative 15-19 GPL: Indeterminate 20-80 GPL: Low to Moderately Positive 81 GPL or above: High Positive The persistent presence of IgG and/or IgM cardiolipin (CL) antibodies in moderate or high levels (greater than 40 GPL and/or greater than 40 MPL units) is a laboratory criterion for the diagnosis of antiphospholipid syndrome (APS). Persistence is defined as moderate or high levels of IgG and/or IgM CL antibodies detected in two or more specimens drawn at least 12 weeks apart (J Throm Haemost. 2006;4:295-306). Lower positive levels of IgG and/or IgM CL antibodies (above cutoff but less than 40 GPL and/or less than 40 MPL units) may occur in patients with the clinical symptoms of APS; therefore, the actual significance of these levels is undefined. Results should not be used alone for diagnosis and must be interpreted in light of APS-specific clinical manifestations and/or other criteria phospholipid antibody tests. Cardiolipin IgM IA Qn (S) 11 [facility] Comment on above: INTERPRETIVE INFORMA TION: Anti-Cardiolipin IgM <=12 MPL: Negative 13-19 MPL: Indeterminate 20-80 MPL: Low to Moderately Positive 81 MPL or above: High Positive The persistent presence of IgG and/or IgM cardiolipin (CL) antibodies in moderate or high levels (greater than 40 GPL and/or greater than 40 MPL units) is a laboratory criterion for the diagnosis of antiphospholipid syndrome (APS). Persistence is defined as moderate or high levels of IgG and/or IgM CL antibodies detected in two or more specimens drawn at least 12 weeks apart (J Throm Haemost. 2006;4:295-306). Lower positive levels of IgG and/or IgM CL antibodies (above cutoff but less than 40 GPL and/or less than 40 MPL units) may occur in patients with the clinical symptoms of APS; therefore, the actual significance of these levels is undefined. Results should not be used alone for diagnosis and must be interpreted in light of APS-specific clinical manifestations and/or other criteria phospholipid antibody tests. Performed By: [facility] [address] [place], [place] [id number] Electronic Publications Specialist: Shine Hinton MD, PhD CLIA Number: [id number] [facility] CBC W Auto Differential pane l (Bld)on 03-30-2024 Basophils (Bld) [#/Vol] 0.0 10*3/uL 0.0 - 0.2 K/uL [facility] Basophils/100 WBC (Bld) 0.2 % B ON [facility] Eosinophils (Bld) [#/Vol] 0.0 10*3/uL 0.0 - 0.7 K/uL [facility] Eosinophils/100 WBC (Bld) 0.1 % [facility] Erythrocyte distribution width (RBC) [Ratio] 13.2 % 11.5 - 14.5 % [facility] Hematocrit (Bld) [Volume fraction] 35.6 % Low 37.0 - 47.0 % [facility] Hemoglobin (Bld) [Mass/Vol] 11.9 g/dL Low 12.0 - 16.0 g/dL [facility] Interpretation and review of laboratory results Abnormal [facility] Lymphocytes (Bld) [#/Vol] 2.2 10*3/uL 1.0 - 4.8 K/uL [facility] Lymphocytes/100 WBC (Bld) 10.8 % [facility] MCH (RBC) [Entitic mass] 29.0 pg 27.0 - 31.3 pg [facility] MCHC (RBC) [Mass/Vol] 33.4 % 33.0 - 37.0 % [facility] MCV (RBC) [Entitic vol] 86.8 fL 79.4 - 94.8 fL [facility] Monocytes (Bld) [#/Vol] 1.3 10*3/uL High 0.2 - 0.8 K/uL [facility] Monocytes/100 WBC (Bld) 6.6 % B ON [facility] Neutrophils (Bld) [#/Vol] 16.3 10*3/uL High 1.4 - 6.5 K/uL [facility] Platelets (Bld) [#/Vol] 362 10*3/uL 130 - 400 K/uL [facility] RBC (Bld) [#/Vol] 4.10 10*6/uL Low [facility] Segmented neutrophils/100 WBC (Bld) 81.7 % [facility] WBC (Bld) [#/Vol] 20.0 10*3/uL High 4.8 - 10.8 K/uL [facility] Comprehensive metabolic 2000 panelon 03-30-2024 Albumin [Mass/Vol] 3.1 g/dL Low 3.5 - 4.6 g/dL [facility] ALP [Catalytic activity/Vol] 173 U/L High 40 - 130 U/L [facility] ALT [Catalytic activity/Vol] 55 U/L High 0 - 33 U/L [facility] Anion gap [Moles/Vol] 15 mmol/L [facility] AST [Catalytic activity/Vol] 21 U/L 0 - 35 U/L [facility] Bilirubin [Mass/Vol] 0.3 mg/dL 0.2 - 0 .7 mg/dL [facility] Calcium [Mass/Vol] 9.3 mg/dL 8.5 - 9.9 mg/dL [facility] Chloride [Moles/Vol] 104 mmol/L [facility] CO2 [Moles/Vol] 19 mmol/L Low [facility] Creatinine [Mass/Vol] 1.25 mg/dL High 0.50 - 0.90 mg/dL [facility] GFR/1.73 sq M.predicted among non-blacks MDRD (S/P/Bld) [Vol rate/Area] 51.7 mL/min/{1.73_m2} Low 60 - PINF [facility] Comment on above: Pediatric calculator link https://www.kidney.org/professionals/kdoqi/gfr_calculatorped Effective Jun 27, 2022 These results are not intended for use in patients <18 years of age. eGFR results are calculated without a race factor using the 2020 CKD-EPI equation. Careful clinical correlation is recommended, particularly when comparing to results calculated using previous equations. The CKD-EPI equation is less accurate in patients with extremes of muscle mass, extra-renal metabolism of creatinine, excessive creatinine ingestion, or following therapy that affects renal tubular secretion. Globulin (S) [Mass/Vol] 4.6 g/dL High 2.3 - 3.5 g/dL [facility] Glucose [Mass/Vol] 174 mg/dL High 70 - 99 mg/dL [facility] Potassium [Moles/Vol] 4.5 mmol/L [facility] Protein [Mass/Vol] 7.7 g/dL 6.3 - 8.0 g/dL [facility] Sodium [Moles/Vol] 138 mmol/L [facility] Urea nitrogen [Mass/Vol] 29 mg/dL High 6 - 20 mg/dL [facility] Culture, Urineon 03-30-2024 Bacteria identified Cx Nom (U) Cult,Urine: NO SIGNIFICANT GROWTH Performed at [address] [id number] [phone] [facility] EKG Rhythm Stripon 4 IN [facility] SY [facility] MRI [facility] Hepatitis Panel, Acuteon HAV IgM IA Qn (S) Non-Reactive NR [facility] Comment on above: Performed at [facility], [address] [place] [id number] . Hep B Core Ab, IgM Non-Reactive NR [facility] Hepatitis B Surface Ag Non-Reactive NR [facility] Hepatitis C Ab Non-Reactive NR [facility] Comment on above: The hepatitis C procedure used in our laboratory is a Chemiluminescent test specific for three recombinant HCV antigens. A negative anti-HCV result indicates that the antibodies to hepatitis C virus are not present at this time. Individuals with reactive anti-HCV should be considered infected and infectious until proven otherwise. Confirmation of all equivocal or reactive results is recommended by ordering HCV RNA by PCR. [facility] Homocysteineon 03-30-2024 Homocysteine 15.0 umol/L 0.0 - 15.0 umol/L [facility] Comment on above: Performed at [facility], [address] [place] [address] . [facility] Lipid Panelon 03-30-2024 Cholesterol [Mass/Vol] 97 mg/dL 0 - 1 99 mg/dL [facility] Comment on above: ATP III Cholesterol classification is Desirable. Cholesterol in HDL [Mass/Vol] 24 mg/dL Low 40 - 59 mg/dL [facility] Comment on above: ATP III HDL Cholestr ol Classification is low. Expected Values: Males: >55 = No Risk 35-55 = Moderate Risk <35 = High Risk Females: >65 = No Risk 45-65 = Moderate Risk <45 = High Risk NCEP Guidelines: Third Report January 2001 >59 = negative risk factor for CHD <40 = major risk factor for CHD Cholesterol in LDL [Mass/Vol] 42 mg/dL 0 - 129 mg/dL [facility] Comment on above: ATP III LDL Classifi cation is Optimal. Triglyceride [Mass/Vol] 156 mg/dL High 0 - 150 mg/dL [facility] Comment on above: ATP III Triglyceride s Classification is Borderline High. MR Brain WO contraston 03-30 1. 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 The left-sided infarcts show some evidence of subacute hemorrhage. 2. Tiny acute/subacute left cerebellar lacunar infarct. 3. The findings were sent to the Radiology Results Communication Center at 1:11 pm on 03/30/2024 to be communicated to a licensed caregiver. [facility] EXAMINATION: MRI OF THE BRAIN WITHOUT CONTRAST 03/30/2024 11:20 am TECHNIQUE: Multiplanar multisequence MRI of the brain was performed without the administration of intravenous contrast. COMPARISON: Head CT and CTA head dated 03/29/2024 HISTORY: ORDERING SYSTEM PROVIDED HISTORY: Acute vs subacute CVA TECHNOLOGIST PROVIDED HISTORY: Reason for exam:->Acute vs subacute CVA What reading provider will be dictating this exam?->CRC FINDINGS: INTRACRANIAL STRUCTURES/VENTRICLE S: There are prominent areas of restricted diffusion in the bilateral occipital lobes, larger on the right extending into the posterior temporal lobe, consistent with acute/subacute posterior cerebral artery infarcts. On the sagittal T1 weighted images, few small areas of increased signal intensity is seen within the left occipital infarct, consistent with subacute hemorrhage. Otherwise, no definite acute hemorrhage is seen. There is associated cytotoxic edema with effacement of the overlying cortical sulci. Tiny focus of restricted diffusion is seen in the left cerebellar hemisphere on series 3, image 7, consistent with acute/subacute lacunar infarct. On the gradient echo images, small foci of low signal is seen in the bhavani with the large area on the left side as well as other tiny foci in the midbrain and posterolateral left thalamus, consistent with old microhemorrhage or possibly cavernomas. There is no evidence of midline shift. There is no evidence of hydrocephalus. The sellar/suprasellar regions appear unremarkable. The normal signal voids within the major intracranial vessels appear maintained. ORBITS: The visualized portion of the orbits demonstrate no acute abnormality. SINUSES: The visualized paranasal sinuses and mastoid air cells demonstrate no acute abnormality. BONES/SOFT TISSUES: The bone marrow signal intensity appears normal. The soft tissues demonstrate no acute abnormality. [facility] Aguilar Jones MD - 03/30/2024 EXAMINATION: MRI OF THE BRAIN WITHOUT CONTRAST 03/30/2024 11:20 am TECHNIQUE: Multiplanar multisequence MRI of the brain was performed without the administration of intravenous contrast. COMPARISON: Head CT and CTA head dated 03/29/2024 HISTORY: ORDERING SYSTEM PROVIDED HISTORY: Acute vs subacute CVA TECHNOLOGIST PROVIDED HISTORY: Reason for exam:->Acute vs subacute CVA What reading provider will be dictating this exam?->CRC FINDINGS: INTRACRANIAL STRUCTURES/VENTRICLE S: There are prominent areas of restricted diffusion in the bilateral occipital lobes, larger on the right extending into the posterior temporal lobe, consistent with acute/subacute posterior cerebral artery infarcts. On the sagittal T1 weighted images, few small areas of increased signal intensity is seen within the left occipital infarct, consistent with subacute hemorrhage. Otherwise, no definite acute hemorrhage is seen. There is associated cytotoxic edema with effacement of the overlying cortical sulci. Tiny focus of restricted diffusion is seen in the left cerebellar hemisphere on series 3, image 7, consistent with acute/subacute lacunar infarct. On the gradient echo images, small foci of low signal is seen in the bhavani with the large area on the left side as well as other tiny foci in the midbrain and posterolateral left thalamus, consistent with old microhemorrhage or possibly cavernomas. There is no evidence of midline shift. There is no evidence of hydrocephalus. The sellar/suprasellar regions appear unremarkable. The normal signal voids within the major intracranial vessels appear maintained. ORBITS: The visualized portion of the orbits demonstrate no acute abnormality. SINUSES: The visualized paranasal sinuses and mastoid air cells demonstrate no acute abnormality. BONES/SOFT TISSUES: The bone marrow signal intensity appears normal. The soft tissues demonstrate no acute abnormality. IMPRESSION: 1. 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 The left-sided infarcts show some evidence of subacute hemorrhage. 2. Tiny acute/subacute left cerebellar lacunar infarct. 3. The findings were sent to the Radiology Results Communication Center at 1:11 pm on 03/30/2024 to be communicated to a licensed caregiver. [facility] Radiology Study observation (narrative) [facility] MR Brain WO contrastOrdered By: Aguilar Jones on 03-30-2024 [facility] Work Phone: MRA Head vessels WO contrast on 03-30-2024 Bilateral posterior cerebral artery occlusions again noted, corresponding to bilateral posterior cerebral infarct seen on the MRI study. [facility] EXAMINATION: MRA OF THE HEAD WITHOUT CONTRAST 03/30/2024 11:20 am TECHNIQUE: MRA of the head was performed utilizing [id number] imaging with MIP images. No intravenous contrast was administered. COMPARISON: CTA head dated 03/29/2024 HISTORY: ORDERING SYSTEM PROVIDED HISTORY: Follow-up with basilar artery evaluation TECHNOLOGIST PROVIDED HISTORY: Reason for exam:->Follow-up with basilar artery evaluation What is the sedation requirement?->None What reading provider will be dictating this exam?->CRC FINDINGS: The images are somewhat degraded by motion artifact. ANTERIOR CIRCULATION: No significant stenosis of the intracranial internal carotid, anterior cerebral, or middle cerebral arteries. POSTERIOR CIRCULATION: No significant stenosis of the distal vertebral or basilar arteries. There is occlusion of the P2 segment of the left posterior cerebral artery. Short segment occlusion of the P segment of the right posterior cerebral artery is also noted. Some flow is seen more distally in the right posterior cerebral artery. The findings are similar compared to the recent CTA head. There is no evidence of an aneurysm or vascular malformation. [facility] Aguilar Jones MD - 03/30/2024 EXAMINATION: MRA OF THE HEAD WITHOUT CONTRAST 03/30/2024 11:20 am TECHNIQUE: MRA of the head was performed utilizing [id number] imaging with MIP images. No intravenous contrast was administered. COMPARISON: CTA head dated 03/29/2024 HISTORY: ORDERING SYSTEM PROVIDED HISTORY: Follow-up with basilar artery evaluation TECHNOLOGIST PROVIDED HISTORY: Reason for exam:->Follow-up with basilar artery evaluation What is the sedation requirement?->None What reading provider will be dictating this exam?->CRC FINDINGS: The images are somewhat degraded by motion artifact. ANTERIOR CIRCULATION: No significant stenosis of the intracranial internal carotid, anterior cerebral, or middle cerebral arteries. POSTERIOR CIRCULATION: No significant stenosis of the distal vertebral or basilar arteries. There is occlusion of the P2 segment of the left posterior cerebral artery. Short segment occlusion of the P segment of the right posterior cerebral artery is also noted. Some flow is seen more distally in the right posterior cerebral artery. The findings are similar compared to the recent CTA head. There is no evidence of an aneurysm or vascular malformation. IMPRESSION: Bilateral posterior cerebral artery occlusions again noted, corresponding to bilateral posterior cerebral infarct seen on the MRI study. [facility] Radiology Study observation (narrative) [facility] No Panel Informationon 03-30 Interpretation and review of laboratory results Abnormal [facility] POCT Glucoseon 03-30-2024 Glucose [Mass/Vol] 276 mg/dL High 70 - 99 mg/dl [facility] Interpretation and review of laboratory results Abnormal [facility] Performed on ACCU-CHEK [facility] Glucose [Mass/Vol] 214 mg/dL High 70 - 99 mg/dl [facility] Interpretation and review of laboratory results Abnormal [facility] Performed on ACCU-CHEK [facility] Glucose [Mass/Vol] 207 mg/dL High 70 - 99 mg/dl [facility] Interpretation and review of laboratory results Abnormal [facility] Performed on ACCU-CHEK [facility] Glucose [Mass/Vol] 161 mg/dL High 70 - 99 mg/dl [facility] Interpretation and review of laboratory results Abnormal [facility] Performed on ACCU-CHEK [facility] POCT Venouson 03-30-2024 Creatinine [Mass/Vol] 1.6 mg/dL High 0.6 - 1.2 mg/dL [facility] GFR/1.73 sq M.predicted among non-blacks MDRD (S/P/Bld) [Vol rate/Area] 38 mL/min/{1.73_m2} Abnormal 60 - PINF [facility] Comment on above: Pediatric calculator link https://www.kidney.org/professionals/kdoqi/gfr_calculatorped Effective Jun 27, 2022 These results are not intended for use in patients <18 years of age. eGFR results are calculated without a race factor using the 2020 CKD-EPI equation. Careful clinical correlation is recommended, particularly when comparing to results calculated using previous equations. The CKD-EPI equation is less accurate in patients with extremes of muscle mass, extra-renal metabolism of creatinine, excessive creatinine ingestion, or following therapy that affects renal tubular secretion. Interpretation and review of laboratory results Abnormal [facility] Performed on SEE BELOW [facility]ONMission Control TechnologiesBL[facility] Comment on above: Performed on POC Sample Type FLY [facility] Troponinon 03-30-2024 Interpretation and review of laboratory results Abnormal [facility] Troponin, High Sensitivity 170 ng/L Critically high 0 - 19 ng/L [facility] Comment on above: High Sensitivity Tro ponin values cannot be compared with other Troponin methodologies. CALL [facility] tel. [phone], trp5 results called to and read back by MITSI SAUCEDO RN, 03/30/2024 00:25, by [facility] Retroperitoneum limitedon 03-30-2024 Unremarkable ultrasound of the kidneys. [facility] EXAMINATION: ULTRASOUND OF THE KIDNEYS 03/30/2024 12:18 pm COMPARISON: None. HISTORY: ORDERING SYSTEM PROVIDED HISTORY: VERONA, CKD, Acute on chronic renal failure TECHNOLOGIST PROVIDED HISTORY: Reason for exam:->VERONA, CKD What reading provider will be dictating this exam?->CRC FINDINGS: The right kidney measures 10.2 cm in length and the left kidney measures 11.0 cm in length. Kidneys demonstrate normal cortical echogenicity. No hydronephrosis or intrarenal stones. No focal lesions. [facility] Teddy Ibrahim MD - 03/30/2024 EXAMINATION: ULTRASOUND OF THE KIDNEYS 03/30/2024 12:18 pm COMPARISON: None. HISTORY: ORDERING SYSTEM PROVIDED HISTORY: VERONA, CKD, Acute on chronic renal failure TECHNOLOGIST PROVIDED HISTORY: Reason for exam:->VERONA, CKD What reading provider will be dictating this exam?->CRC FINDINGS: The right kidney measures 10.2 cm in length and the left kidney measures 11.0 cm in length. Kidneys demonstrate normal cortical echogenicity. No hydronephrosis or intrarenal stones. No focal lesions. IMPRESSION: Unremarkable ultrasound of the kidneys. [facility] Radiology Study observation (narrative) [facility] Retroperitoneum limitedOr dered By: Teddy Ibrahim on 03-30-2024 [facility] Work Phone: Basic metabolic 2000 panelon 03-29-2024 Anion gap [Moles/Vol] 13 mmol/L [facility] Calcium [Mass/Vol] 8.8 mg/dL 8.5 - 9.9 mg/dL [facility] Chloride [Moles/Vol] 97 mmol/L [facility] CO2 [Moles/Vol] 18 mmol/L Low [facility] Creatinine [Mass/Vol] 1.43 mg/dL High 0.50 - 0.90 mg/dL [facility] GFR/1.73 sq M.predicted among non-blacks MDRD (S/P/Bld) [Vol rate/Area] 44.0 mL/min/{1.73_m2} Low 60 - PINF [facility] Comment on above: Pediatric calculator link https://www.kidney.org/professionals/kdoqi/gfr_calculatorped Effective Jun 27, 2022 These results are not intended for use in patients <18 years of age. eGFR results are calculated without a race factor using the 2020 CKD-EPI equation. Careful clinical correlation is recommended, particularly when comparing to results calculated using previous equations. The CKD-EPI equation is less accurate in patients with extremes of muscle mass, extra-renal metabolism of creatinine, excessive creatinine ingestion, or following therapy that affects renal tubular secretion. Glucose [Mass/Vol] 277 mg/dL High 70 - 99 mg/dL [facility] Interpretation and review of laboratory results Abnormal [facility] Potassium [Moles/Vol] 4.4 mmol/L [facility] Sodium [Moles/Vol] 128 mmol/L Low [facility] Urea nitrogen [Mass/Vol] 32 mg/dL High 6 - 20 mg/dL [facility] Beta-Hydroxybutyrateon 03-29 Beta hydroxybutyrate [Moles/Vol] 1.7 mg/dL 0.2 - 2.8 mg/dL [facility] Brain Natriuretic Peptideon 03-29-2024 Natriuretic peptide B (Bld) [Mass/Vol] 4153 pg/mL [facility] Comment on above: NT-pro BNP ACUTE Int erpretive Guidelines: Age Cutoff for Heart Failure Less than 50 yrs 450 pg/mL 50-75 yrs 900 pg/mL Greater than 75 yrs 1800 pg/mL NT-pro BNP NON-ACUTE Interpretive Guidelines: Age Reference Range Less than 74 yrs 0-125 pg/mL Greater than 74 yrs 0-450 pg/mL Other possible causes of an elevated NT-proBNP include: cardiac ischemia, acute coronary syndrome, COPD, pneumonia, atrial fibrillation, pulmonary emboli, pulmonary hypertension, pericarditis Reference: Gaetano Clarke, et al. NT-proBNP testing for diagnosis and short-term prognosis in acute destabilized HF: an international pooled analysis of 1256 patients. Heart Journal. 2006;27:330-337 CBC W Auto Differential pane l (Bld)on 03-29-2024 Anisocytosis Ql (Bld) 1+ [facility] Basophils (Bld) [#/Vol] 0.0 10*3/uL 0.0 - 0.2 K/uL [facility] Basophils/100 WBC (Bld) 0.3 % [facility] Eosinophils (Bld) [#/Vol] 0.0 10*3/uL 0.0 - 0.7 K/uL [facility] Eosinophils/100 WBC (Bld) 0.4 % [facility] Erythrocyte distribution width (RBC) [Ratio] 13.0 % 11.5 - 14.5 % [facility] Hematocrit (Bld) [Volume fraction] 40.7 % 37.0 - 47.0 % [facility] Hemoglobin (Bld) [Mass/Vol] 14.0 g/dL 12.0 - 16.0 g/dL [facility] Interpretation and review of laboratory results Abnormal [facility] Lymphocytes (Bld) [#/Vol] 3.7 10*3/uL 1.0 - 4.8 K/uL [facility] Lymphocytes/100 WBC (Bld) 14.0 % [facility] MCH (RBC) [Entitic mass] 29.8 pg 27.0 - 31.3 pg [facility] MCHC (RBC) [Mass/Vol] 34.4 % 33.0 - 37.0 % [facility] MCV (RBC) [Entitic vol] 86.6 fL 79.4 - 94.8 fL [facility] Monocytes (Bld) [#/Vol] 0.5 10*3/uL 0.2 - 0.8 K/uL [facility] Monocytes/100 WBC (Bld) 1.9 % [facility] Neutrophils (Bld) [#/Vol] 20.5 10*3/uL High 1.4 - 6.5 K/uL [facility] Platelets (Bld) [#/Vol] 376 10*3/uL 130 - 400 K/uL [facility] Platelets LM Ql (Bld) Adequate [facility] RBC (Bld) [#/Vol] 4.70 10*6/uL [facility] Segmented neutrophils/100 WBC (Bld) 83.0 % [facility] SLIDE REVIEW see below [facility] Comment on above: Slide review agrees with reported results Smudge cells LM Ql (Bld) 1.0 [facility] Variant lymphocytes/100 WBC (Bld) 1 % [facility] WBC (Bld) [#/Vol] 24.7 10*3/uL High 4.8 - 10.8 K/uL [facility] CT Head WO contraston 2023 Radiology Study observation (narrative) [facility] Cardiac echo study Procedure on 03-29-2024 AV Area by Peak Velocity 2.1 cm2 [facility] AV Area by VTI 2.1 cm2 [facility] AV Cusp Mmode 1.4 cm [facility] SECMission Control TechnologiesY [facility] AV Mean Gradient 7 mmHg [facility] AV Mean Velocity 1.2 m/s [facility] AV Peak Gradient 13 mmHg [facility] AV Peak Velocity 1.8 m/s [facility] AV Velocity Ratio 0.67 [facility] AV VTI 34.0 cm [facility] ST[facility]E/BSA Peak Velocity 1.0 cm2/m2 [facility] STEVE/BSA VTI 1.0 cm2/m2 [facility] Body surface area Derived from formula 2.2 m2 [facility] E/E' Lateral 27.20 [facility] E/E' Ratio (Averaged) 24.93 [facility] E/E' Septal 22.67 [facility] EF BP 64 % 55 - 100 % [facility] Est. RA Pressure 3 mmHg [facility] Fractional Shortening 2D 30 % 28 - 44 % [facility] TechnologiesY [facility] Interpretation and review of laboratory results Abnormal [facility] TechnologiesY [facility] IVSd 1.3 cm Abnormal 0.6 - 0.9 cm [facility] IVSs 1.9 cm [facility] [place] Diameter 4.4 cm [facility] [place] Size Index 2.10 cm/m2 [facility] [place] Volume A-L A4C 65 mL Abnormal 22 - 52 mL [facility] [place] Volume A-L A4C 55 mL Abnormal 22 - 52 mL [facility] [place] Volume A/L 61 mL [facility] [place] Volume Index A-L A2C 31 mL/m2 16 - 34 mL/m2 [facility] [place] Volume Index A-L A4C 26 mL/m2 16 - 34 mL/m2 [facility] [place] Volume Index A/L 29 mL/m2 16 - 34 mL/m2 [facility] [place] Volume Index MOD A2C 30 ml/m2 16 - 34 ml/m2 [facility] [place] Volume Index MOD A4C 24 ml/m2 16 - 34 ml/m2 [facility] [place] Volume MOD A2C 62 mL Abnormal 22 - 52 mL [facility] [place] Volume MOD A4C 51 mL 22 - 52 mL [facility] LV E' Lateral Velocity 5 cm/s ARMIDA N SECSem[employer] LV E' Septal Velocity 6 cm/s [facility] LV EDV A2C 110 mL [facility] LV EDV A4C 112 mL [facility] LV EDV BP 112 mL Abnormal 56 - 104 mL [facility] LV EDV Index A2C 52 mL/m2 [facility] LV EDV Index A4C 53 mL/m2 [facility] LV EDV Index BP 53 mL/m2 [facility] LV Ejection Fraction A2C 68 % [facility] LV Ejection Fraction A4C 57 % [facility] LV ESV A2C 35 mL [facility] LV ESV A4C 49 mL [facility] LV ESV BP 41 mL 19 - 49 mL [facility] LV ESV Index A2C 17 mL/m2 [facility] LV ESV Index A4C 23 mL/m2 [facility] LV ESV Index BP 20 mL/m2 [facility] LV Mass 2D 233.7 g Abnormal 67 - 162 g [facility] LV Mass 2D Index 111.3 g/m2 Abnormal 43 - 95 g/m2 [facility] [employer] LV RWT Ratio 0.44 [facility] LVIDd 5.0 cm 3.9 - 5.3 cm [facility] LVIDd Index 2.38 cm/m2 [facility] LVIDs 3.5 cm [facility] LVIDs Index 1.67 cm/m2 [facility] LVOT Area 3.1 cm2 [facility] LVOT Diameter 2.0 cm [facility] LVOT Mean Gradient 3 mmHg [facility] LVOT Peak Gradient 6 mmHg [facility] LVOT Peak Velocity 1.2 m/s [facility] LVOT Stroke Volume Index 35.1 mL/m2 [facility] LVOT SV 73.8 ml [facility] LVOT VTI 23.5 cm [facility] LVOT:AV VTI Index 0.69 [facility] LVPWd 1.1 cm Abnormal 0.6 - 0.9 cm [facility] LVPWs 2.1 cm [facility] MR Radius PISA 0.59 cm [facility] MR Regurg Volume PISA 20.42 mL [facility] MR VTI 141.5 cm [facility] MV A Velocity 1.13 m/s [facility] MV Area by VTI 1.6 cm2 [facility] MV E Velocity 1.36 m/s [facility] MV E Wave Deceleration Time 286.5 ms [facility] MV E/A 1.20 [facility] MV EROA PISA 0.1 cm2 [facility] MV Max Velocity 1.5 m/s [facility] Mean Gradient 4 mmHg [facility] Hivelocity MV Mean Velocity 0.9 m/s [facility] H[employer] MV Nyquist Velocity 33 cm/s [facility] MV Peak Gradient 9 mmHg [facility] MV Regurg Velocity PISA 5.0 m/s B ON [facility] MV VTI 45.9 cm [facility] MV:LVOT VTI Index 1.95 [facility] PV Max Velocity 1.1 m/s [facility] PV Peak Gradient 4 mmHg [facility] RVIDd 3.4 cm [facility] RVSP 31 mmHg [facility] TAPSE 1.8 cm 1.7 cm [facility] TR Max Velocity 2.65 m/s [facility] Peak Gradient 28 mmHg [facility] Left Ventricle: Normal left ventricular systolic function with a visually estimated EF of 50 - 55%. Left ventricle size is normal. Normal wall thickness. Normal wall motion. Diastolic dysfunction present with increased LAP with normal LV EF. Tricuspid Valve: The estimated RVSP is 31 mmHg. Left Atrium: Left atrium is mildly dilated. Image quality is adequate. Left Ventricle Normal left ventricular systolic function with a visually estimated EF of 50 - 55%. Left ventricle size is normal. Normal wall thickness. Normal wall motion. Diastolic dysfunction present with increased LAP with normal LV EF. Right Ventricle Right ventricle size is normal. Normal systolic function. Left Atrium Left atrium is mildly dilated. Right Atrium Right atrium size is normal. IVC/SVC IVC diameter is less than or equal to 21 mm and decreases greater than 50% during inspiration; therefore the estimated right atrial pressure is normal (~3 mmHg). IVC size is normal. Mitral Valve Valve structure is normal. Trace regurgitation. No stenosis noted. Tricuspid Valve Valve structure is normal. No regurgitation. No stenosis noted. The estimated RVSP is 31 mmHg. Aortic Valve Valve structure is normal. No regurgitation. No stenosis. Pulmonic Valve The pulmonic valve was not well visualized. No regurgitation. No stenosis noted. Ascending Aorta Normal sized aortic root and ascending aorta. Pericardium No pericardial effusion. Study Details Image quality: adequate. No contrast was given. [facility] CV CPACS [facility] Radiology Study observation (narrative) [facility] Comprehensive metabolic 2000 panelon 03-29-2024 Albumin [Mass/Vol] 3.5 g/dL 3.5 - 4.6 g/dL [facility] ALP [Catalytic activity/Vol] 223 U/L High 40 - 130 U/L [facility] ALT [Catalytic activity/Vol] 85 U/L High 0 - 33 U/L [facility] Anion gap [Moles/Vol] 16 mmol/L High [facility] AST [Catalytic activity/Vol] 36 U/L High 0 - 35 U/L [facility] Bilirubin [Mass/Vol] 0.7 mg/dL 0.2 - 0 .7 mg/dL [facility] Calcium [Mass/Vol] 9.9 mg/dL 8.5 - 9.9 mg/dL [facility] Chloride [Moles/Vol] 97 mmol/L [facility] CO2 [Moles/Vol] 19 mmol/L Low [facility] Creatinine [Mass/Vol] 1.58 mg/dL High 0.50 - 0.90 mg/dL [facility] GFR/1.73 sq M.predicted among non-blacks MDRD (S/P/Bld) [Vol rate/Area] 39.0 mL/min/{1.73_m2} Low 60 - PINF [facility] Comment on above: Pediatric calculator link https://www.kidney.org/professionals/kdoqi/gfr_calculatorped Effective Jun 27, 2022 These results are not intended for use in patients <18 years of age. eGFR results are calculated without a race factor using the 2020 CKD-EPI equation. Careful clinical correlation is recommended, particularly when comparing to results calculated using previous equations. The CKD-EPI equation is less accurate in patients with extremes of muscle mass, extra-renal metabolism of creatinine, excessive creatinine ingestion, or following therapy that affects renal tubular secretion. Globulin (S) [Mass/Vol] 4.8 g/dL High 2.3 - 3.5 g/dL [facility] Glucose [Mass/Vol] 206 mg/dL High 70 - 99 mg/dL [facility] Interpretation and review of laboratory results Abnormal [facility] Potassium [Moles/Vol] 4.2 mmol/L [facility] Protein [Mass/Vol] 8.3 g/dL High 6.3 - 8.0 g/dL [facility] Sodium [Moles/Vol] 132 mmol/L Low [facility] Urea nitrogen [Mass/Vol] 32 mg/dL High 6 - 20 mg/dL [facility] EKG 12 Leadon 03-29-2024 Atrial Rate 73 BPM [facility] P [place] 32 degrees [facility] P-R Interval 152 ms [facility] Q-T Interval 426 ms [facility] QRS Duration 92 ms [facility] QTc Calculation (Bazett) 469 ms [facility] R [place] 4 degrees [facility] T [place] 76 degrees [facility] Ventricular Rate 73 BPM [facility] Normal sinus rhythm Nonspecific T wave abnormality Prolonged QT Abnormal ECG When compared with ECG of 29-MAR-2024 08:10, No significant change was found Confirmed by GHADA PAL ([id number]) on 03/29/2024 4:14:34 PM Ghada Bella MD - 03/29/2024 Normal sinus rhythm Nonspecific T wave abnormality Prolonged QT Abnormal ECG When compared with ECG of 29-MAR-2024 08:10, No significant change was found Confirmed by GHADA PAL ([id number]) on 03/29/2024 4:14:34 PM [facility] Normal sinus rhythm Anterior infarct , age undetermined Abnormal ECG When compared with ECG of 05-APR-2022 05:28, Anterior infarct is now present Confirmed by GHADA PAL ([id number]) on 03/29/2024 4:14:26 PM Ghada Bella MD - 03/29/2024 Normal sinus rhythm Anterior infarct , age undetermined Abnormal ECG When compared with ECG of 05-APR-2022 05:28, Anterior infarct is now present Confirmed by GHADA PAL ([id number]) on 03/29/2024 4:14:26 PM [facility] EKG 12 LeadOrdered By: Dean Pal on 03-29-2024 Atrial Rate [address] [facility] [employer] Work Phone: [phone] P [place] [address] [facility] [employer] Work Phone: [phone] P-R Interval 156 ms [facility] [employer] Work Phone: Q-T Interval 420 ms [employer] [facility] [employer] Work Phone: QRS Duration 94 ms [employer] [facility] [employer] Work Phone: QTc Calculation (Bazett) 478 ms [facility] Work Phone: R [place] -17 degrees [facility] Work Phone: T [place] 76 degrees [facility] Work Phone: Ventricular Rate 78 BPM [facility] [employer] Work Phone: [facility] Work Phone: ESR Westergren method (Bld) [Velocity]on 03-29-2024 ESR (Bld) [Velocity] 87 mm High 0 - 30 mm [facility] Comment on above: ESR Units mm/Hr Interpretation and review of laboratory results Abnormal [facility] ETOHon 03-29-2024 Ethanol percent Not indicated G/dL [facility] Ethanolamine [Mass/Vol] <10 mg/dL [facility] Hemoglobin A1Con 03-29-2024 Glucose [Mass/Vol] 324 mg/dL [facility] Comment on above: The ADA and AACC rec ommend providing the estimated average glucose result to permit better patient understanding of their HBA1c result. Performed at [facility] [employer], [address] [place] [address] . HbA1c (Bld) [Mass fraction] 12.9 % High 4.0 - 6.0 % [facility] Interpretation and review of laboratory results Abnormal [facility] Lactate, Sepsison 03-29-2024 Lactic Acid, Sepsis 1.2 mmol/L 0.5 - 1. 9 mmol/L [facility] Lactic Acid, Sepsis 1.4 mmol/L 0.5 - 1. 9 mmol/L [facility] Magnesiumon 03-29-2024 Magnesium [Mass/Vol] 2.3 mg/dL 1.7 - 2 .4 mg/dL [facility] Microscopic Urinalysison Bacteria LM Ql (Urine sed) Negative Negative /HPF [facility] Epithelial cells Auto (Urine sed) [#/Area] 10-20 [facility] Hyaline casts Auto (Urine sed) [#/Area] 1-3 [facility] Interpretation and review of laboratory results Abnormal [facility] RBC LM.HPF (Urine sed) [#/Area] 5-10 Abnormal [facility] WBC Auto (Urine sed) [#/Area] >100 High [facility] No Panel Informationon 03-29 [facility] 1. Chronic right and subacute left parietooccipital infarcts. (Previously reported on an MRI of the brain from 03/19/2024 at an outside hospital). The report is available, the images are not available for direct comparison. 2. No new infarct or acute intracranial hemorrhage. 3. 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 4. 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 5. 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 6. 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 7. 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 8. Severe stenosis with near occlusion at the origin of the left vertebral artery. 9. Moderate stenosis of the junction of the V1 and V2 segments of the right vertebral artery. The above findings were discussed with SANGEETA Gonzalez at 9:45 a.m. on 03/29/2024. [facility] EXAMINATION: CTA OF THE HEAD WITHOUT AND WITH CONTRAST; CT OF THE HEAD WITHOUT CONTRAST; CTA OF THE NECK 03/29/2024 8:54 am; 03/29/2024 8:52 am: TECHNIQUE: CTA of the head/brain was performed without and with the administration of intravenous contrast. Multiplanar reformatted images are provided for review. MIP images are provided for review. Automated exposure control, iterative reconstruction, and/or weight based adjustment of the mA/kV was utilized to reduce the radiation dose to as low as reasonably achievable.; CT of the head was performed without the administration of intravenous contrast. Automated exposure control, iterative reconstruction, and/or weight based adjustment of the mA/kV was utilized to reduce the radiation dose to as low as reasonably achievable.; CTA of the neck was performed with the administration of intravenous contrast. Multiplanar reformatted images are provided for review. MIP images are provided for review. Stenosis of the internal carotid arteries measured using NASCET criteria. Automated exposure control, iterative reconstruction, and/or weight based adjustment of the mA/kV was utilized to reduce the radiation dose to as low as reasonably achievable. Noncontrast CT of the head with reconstructed 2-D images are also provided for review. COMPARISON: No prior imaging is available. Reports from previous imaging from 03/18/2024 and 03/19/2024 are available for review. HISTORY: ORDERING SYSTEM PROVIDED HISTORY: ams TECHNOLOGIST PROVIDED HISTORY: Reason for exam:->ams Additional Contrast?->1 What reading provider will be dictating this exam?->CRC; ORDERING SYSTEM PROVIDED HISTORY: headache, cva/bleed/trauma TECHNOLOGIST PROVIDED HISTORY: Has a "code stroke" or "stroke alert" been called?->No Reason for exam:->headache Decision Support Exception - unselect if not a suspected or confirmed emergency medical condition->Emergency Medical Condition (MA) What reading provider will be dictating this exam?->CRC FINDINGS: CT HEAD: BRAIN/VENTRICLES: There is abnormal hypoattenuation involving the bilateral occipital lobes, left greater than right. There is no acute intracranial hemorrhage. No mass effect or midline shift is present. There is no ventriculomegaly. ORBITS: Limited evaluation of the orbits is unremarkable. SINUSES: The paranasal sinuses and mastoid air cells are clear. SOFT TISSUES/SKULL: No lytic or blastic osseous lesions are identified. CTA NECK: AORTIC ARCH/ARCH VESSELS: No dissection or arterial injury. No significant stenosis of the brachiocephalic or subclavian arteries. CAROTID ARTERIES: There is circumferential mural thickening involving the bilateral common carotid arteries and proximal internal carotid arteries without significant stenosis or dissection. VERTEBRAL ARTERIES: There is a severe stenosis with near occlusion of the origin of the left vertebral artery. The left vertebral artery is otherwise normal in appearance. There is a moderate stenosis at the junction of the right V1 and V2 segments. The right vertebral artery is otherwise normal. SOFT TISSUES: The lung apices are clear. No pathologically enlarged lymphadenopathy or soft tissue mass is identified. The salivary glands are normal. The thyroid gland is unremarkable. BONES: No lytic or blastic osseous lesions are identified. CTA HEAD: ANTERIOR CIRCULATION: There is a severe stenosis of the supraclinoid left internal carotid artery. There is a saccular 2 mm aneurysm directed laterally from the cavernous right internal carotid artery. Azygous anterior cerebral artery is present. No significant stenosis or occlusion. The middle cerebral arteries are normal. There is no significant stenosis or aneurysm. POSTERIOR CIRCULATION: There is atherosclerotic plaque within the distal vertebral arteries without significant stenosis evident. The basilar artery is normal. There is abrupt occlusion of the P1 segment of the left posterior cerebral artery. There is abrupt occlusion of the P2 segment of the right posterior cerebral artery. OTHER: No dural venous sinus thrombosis on this non-dedicated study. [facility] Roger Dan MD - 03/29/2024 EXAMINATION: CTA OF THE HEAD WITHOUT AND WITH CONTRAST; CT OF THE HEAD WITHOUT CONTRAST; CTA OF THE NECK 03/29/2024 8:54 am; 03/29/2024 8:52 am: TECHNIQUE: CTA of the head/brain was performed without and with the administration of intravenous contrast. Multiplanar reformatted images are provided for review. MIP images are provided for review. Automated exposure control, iterative reconstruction, and/or weight based adjustment of the mA/kV was utilized to reduce the radiation dose to as low as reasonably achievable.; CT of the head was performed without the administration of intravenous contrast. Automated exposure control, iterative reconstruction, and/or weight based adjustment of the mA/kV was utilized to reduce the radiation dose to as low as reasonably achievable.; CTA of the neck was performed with the administration of intravenous contrast. Multiplanar reformatted images are provided for review. MIP images are provided for review. Stenosis of the internal carotid arteries measured using NASCET criteria. Automated exposure control, iterative reconstruction, and/or weight based adjustment of the mA/kV was utilized to reduce the radiation dose to as low as reasonably achievable. Noncontrast CT of the head with reconstructed 2-D images are also provided for review. COMPARISON: No prior imaging is available. Reports from previous imaging from 03/18/2024 and 03/19/2024 are available for review. HISTORY: ORDERING SYSTEM PROVIDED HISTORY: ams TECHNOLOGIST PROVIDED HISTORY: Reason for exam:->ams Additional Contrast?->1 What reading provider will be dictating this exam?->CRC; ORDERING SYSTEM PROVIDED HISTORY: headache, cva/bleed/trauma TECHNOLOGIST PROVIDED HISTORY: Has a "code stroke" or "stroke alert" been called?->No Reason for exam:->headache Decision Support Exception - unselect if not a suspected or confirmed emergency medical condition->Emergency Medical Condition ([place]) What reading provider will be dictating this exam?->CRC FINDINGS: CT HEAD: BRAIN/VENTRICLES: There is abnormal hypoattenuation involving the bilateral occipital lobes, left greater than right. There is no acute intracranial hemorrhage. No mass effect or midline shift is present. There is no ventriculomegaly. ORBITS: Limited evaluation of the orbits is unremarkable. SINUSES: The paranasal sinuses and mastoid air cells are clear. SOFT TISSUES/SKULL: No lytic or blastic osseous lesions are identified. CTA NECK: AORTIC ARCH/ARCH VESSELS: No dissection or arterial injury. No significant stenosis of the brachiocephalic or subclavian arteries. CAROTID ARTERIES: There is circumferential mural thickening involving the bilateral common carotid arteries and proximal internal carotid arteries without significant stenosis or dissection. VERTEBRAL ARTERIES: There is a severe stenosis with near occlusion of the origin of the left vertebral artery. The left vertebral artery is otherwise normal in appearance. There is a moderate stenosis at the junction of the right V1 and V2 segments. The right vertebral artery is otherwise normal. SOFT TISSUES: The lung apices are clear. No pathologically enlarged lymphadenopathy or soft tissue mass is identified. The salivary glands are normal. The thyroid gland is unremarkable. BONES: No lytic or blastic osseous lesions are identified. CTA HEAD: ANTERIOR CIRCULATION: There is a severe stenosis of the supraclinoid left internal carotid artery. There is a saccular 2 mm aneurysm directed laterally from the cavernous right internal carotid artery. Azygous anterior cerebral artery is present. No significant stenosis or occlusion. The middle cerebral arteries are normal. There is no significant stenosis or aneurysm. POSTERIOR CIRCULATION: There is atherosclerotic plaque within the distal vertebral arteries without significant stenosis evident. The basilar artery is normal. There is abrupt occlusion of the P1 segment of the left posterior cerebral artery. There is abrupt occlusion of the P2 segment of the right posterior cerebral artery. OTHER: No dural venous sinus thrombosis on this non-dedicated study. IMPRESSION: 1. Chronic right and subacute left parietooccipital infarcts. (Previously reported on an MRI of the brain from 03/19/2024 at an outside hospital). The report is available, the images are not available for direct comparison. 2. No new infarct or acute intracranial hemorrhage. 3. 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 4. 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 5. 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 6. Saccular 2 mm aneurysm directed laterally from the cavernous right in (more content not included)... [facility] tel. [phone], TROP results called to ED and read back by Yelizta Her, 03/29/2024 08:43, by [facility] Radiology Study observation (narrative) [facility] Interpretation and review of laboratory results Abnormal [facility] tel. [phone], TROP results called to ED and read back by Yelitza Her, 03/29/2024 08:43, by [facility] No Panel InformationOrdered By: Roger Dan on 03-29-2024 [facility] Work Phone: POCT CreatinineOrdered By: Viji Oneal on 03-29-2024 Interpretation and review of laboratory results Normal [facility] POC CREATININE WHOLE BLOOD 1.6 [facility] POCT Glucoseon 03-29-2024 Glucose [Mass/Vol] 285 mg/dL High 70 - 99 mg/dl [facility] Interpretation and review of laboratory results Abnormal [facility] Performed on ACCU-CHEK [facility] Glucose [Mass/Vol] 365 mg/dL High 70 - 99 mg/dl [facility] Interpretation and review of laboratory results Abnormal [facility] Performed on ACCU-CHEK [facility] Glucose [Mass/Vol] 275 mg/dL High 70 - 99 mg/dl [facility] Interpretation and review of laboratory results Abnormal [facility] Performed on [facility]-CHEK [facility] Glucose [Mass/Vol] 214 mg/dL High 70 - 99 mg/dl [facility] Interpretation and review of laboratory results Abnormal [facility] Performed on ACCU-CHEK [facility] Portable XR Chest AP single viewon 03-29-2024 No acute cardiopulmonary disease. [facility] EXAMINATION: ONE XRAY VIEW OF THE CHEST 03/29/2024 7:56 am COMPARISON: None. HISTORY: ORDERING SYSTEM PROVIDED HISTORY: ams TECHNOLOGIST PROVIDED HISTORY: Reason for exam:->ams Is the patient ?->No What reading provider will be dictating this exam?->CRC FINDINGS: Single AP upright portable chest demonstrate satisfactory expansion of the lungs which are clear. The cardiac silhouette appears unremarkable. There is no evidence of a pneumothorax. [facility] Alfredo Bell III, DO - 03/29/2024 EXAMINATION: ONE XRAY VIEW OF THE CHEST 03/29/2024 7:56 am COMPARISON: None. HISTORY: ORDERING SYSTEM PROVIDED HISTORY: ams TECHNOLOGIST PROVIDED HISTORY: Reason for exam:->ams Is the patient ?->No What reading provider will be dictating this exam?->CRC FINDINGS: Single AP upright portable chest demonstrate satisfactory expansion of the lungs which are clear. The cardiac silhouette appears unremarkable. There is no evidence of a pneumothorax. IMPRESSION: No acute cardiopulmonary disease. [facility] Radiology Study observation (narrative) [facility] Portable XR Chest AP single viewOrdered By: Alfredo Bell on 03-29-2024 [facility] Work Phone: Procalcitoninon 03-29-2024 Procalcitonin IA [Mass/Vol] 2.42 ng/mL High 0.00 - 0.15 ng/mL [facility] Comment on above: Suspected Sepsis: Low likelihood of sepsis <.50 ng/mL Increased likelihood of sepsis 0.50-2.00 ng/mL Antibiotics encouraged High risk of sepsis/shock >2.00 ng/mL Antibiotics strongly encouraged Suspected Lower Respiratory Tract Infections: Low likelihood of bacterial infection <0.24 ng/mL Increased likelihood of bacterial infection >0.24 ng/mL Antibiotics encouraged With successful antibiotic therapy, PCT levels should decrease rapidly. (Half-life of 24 to 36 hours.) Procalcitonin values from samples collected within the first 6 hours of systemic infection may still be low. Retesting may be indicated. Values from day 1 and day 4 can be entered into the Change in Procalcitonin Calculator to determine the patient's Mortality Risk Prognosis ([email or web address]-oza-inwofxunpl.com) In healthy neonates, plasma Procalcitonin (PCT) concentrations increase gradually after , reaching peak values at about 24 hours of age then decrease to normal values below 0.5 ng/mL by 48-72 hours of age. Respiratory pathogens DNA an d RNA panel SHAI+non-probe (Nph)on 03-29-2024 Adenovirus DNA SHAI+non-probe Ql (Nph) Not detected Not Detected [facility] B. parapertussis [id number] DNA SHAI+non-probe Ql (Nph) Not detected Not Detected [facility] B. pertussis toxin promoter region SHAI+non-probe Ql (Nph) Not detected Not Detected [facility] C. pneumoniae DNA SHAI+non-probe Ql (Nph) Not detected Not Detected [facility] FLUAV RNA SHAI+non-probe Ql (Nph) Not detected Not Detected [facility] FLUBV RNA SHAI+non-probe Ql (Nph) Not detected Not Detected [facility] HCoV 229E RNA SHAI+non-probe Ql (Nph) Not detected Not Detected [facility] HCoV HKU1 RNA SHAI+non-probe Ql (Nph) Not detected Not Detected [facility] HCoV NL63 RNA SHAI+non-probe Ql (Nph) Not detected Not Detected [facility] HCoV OC43 RNA SHAI+non-probe Ql (Nph) Not detected Not Detected [facility] hMPV RNA SHAI+non-probe Ql (Nph) Not detected Not Detected [facility] M. pneumoniae DNA SHAI+non-probe Ql (Nph) Not detected Not Detected [facility] Parainfluenza virus 1 RNA SHAI+non-probe Ql (Nph) Not detected Not Detected [facility] Parainfluenza virus 2 RNA SHAI+non-probe Ql (Nph) Not detected Not Detected [facility] Parainfluenza virus 3 RNA SHAI+non-probe Ql (Nph) Not detected Not Detected [facility] Parainfluenza virus 4 RNA SHAI+non-probe Ql (Nph) Not detected Not Detected [facility] Rhinovirus+Enterovirus RNA SHAI+non-probe Ql (Nph) Not detected Not Detected [facility] RSV RNA SHAI+non-probe Ql (Nph) Not detected Not Detected [facility] SARS-CoV-2 (COVID-19) RNA SHAI+non-probe Ql (Nph) Not detected Not Detected [facility] Troponin Now and Q 1 Hour x 3on 03-29-2024 Interpretation and review of laboratory results Abnormal [facility] Troponin, High Sensitivity 241 ng/L Critically high 0 - 19 ng/L [facility] Comment on above: High Sensitivity Tro ponin values cannot be compared with other Troponin methodologies. [facility] tel. [phone], TRP5 results called to and read back by Leona Oneal, 03/29/2024 11:18, by [facility] Interpretation and review of laboratory results Abnormal [facility] Troponin, High Sensitivity 273 ng/L Critically high 0 - 19 ng/L [facility] Comment on above: High Sensitivity Tro ponin values cannot be compared with other Troponin methodologies. [facility] tel. [phone], TRP5 results called to and read back by Leona Oneal, 03/29/2024 09:48, by [facility] Troponin, High Sensitivity 297 ng/L Critically high 0 - 19 ng/L [facility] Comment on above: High Sensitivity Tro ponin values cannot be compared with other Troponin methodologies. Urinalysis with Reflex to Cu ltureon 03-29-2024 Bilirubin Ql (U) MODERATE Abnormal Negative [facility] Clarity (U) TURBID Abnormal Clear [facility] Color (U) DARK YELLOW Abnormal Straw/Yellow [facility] Glucose Test strip (U) [Mass/Vol] 100 mg/dL Abnormal Negative [facility] Hemoglobin Ql (U) LARGE Abnormal Negative [facility] Interpretation and review of laboratory results Abnormal [facility] Ketones (U) [Mass/Vol] Negative Negat jorge mg/dL [facility] Leukocyte esterase Test strip Ql (U) MODERATE Abnormal Negative [facility] Nitrite Ql (U) Negative Negative [facility] pH (U) 5.0 [pH] 5.0 - 9.0 [facility] Protein (U) [Mass/Vol] mg/dL Abnormal Negat jorge mg/dL [facility] Specific gravity (U) [Rel density] 1.035 1.005 - 1.030 [facility] Urine Reflex to Culture Yes B ON [facility] Urobilinogen Qn (U) 1.0 [facility] Urine Drug Screenon 03-29-20 Amphetamines Ql (U) Negative Negative <1000 ng/mL [facility] Barbiturates Screen Ql (U) Negative Negative < 200 ng/mL [facility] Benzodiazepines Ql (U) Negative Negat jorge < 200 ng/mL [facility] Cannabinoids Screen Ql (U) Negative Negative < 50 ng/mL [facility] Cocaine Ql (U) Negative Negative < 300 ng/mL [facility] Drug screen comment (U) [Interp] see below [facility] Comment on above: This method is a scr eening test to detect only these drug classes as part of a medical workup. Confirmatory testing by another method should be ordered if clinically indicated. FENTANYL SCREEN, URINE Negative Negat jorge < 50 ng/mL [facility] Methadone Screen Ql (U) Negative Nega tive <300 ng/mL [facility] Opiates Screen Ql (U) Negative Negati ve < 300 ng/mL [facility] oxyCODONE Ql (U) Negative Negative <100 ng/mL [facility] Phencyclidine Ql (U) Negative Negativ e < 25 ng/mL [facility] Propoxyphene Screen Ql (U) Negative Negative <300 ng/mL [facility] CARECOORDon 03-27-2024 [facility] [place] Discharge med list transmitted to [facility] via [facility] per TCC request. [id number] completed in [facility] per TCC request. Facility notified via careport. Normal [facility] DC orders, MAR, and 7000 tasked to be sent to Lio Monzon via [employer]. Normal [facility] CARECOORD Normal [facility] IDNon 03-27-2024 IDN The patient is Moderately Stable - Low risk of patient condition declining or worsening The patient's goals for the shift include safety and rest The clinical goals for the shift include safety and rest Normal [facility] Laboratory - Chemistry and C hemistry - challengeon 03-27-2024 Glucose [Mass/Vol] 183 mg/dL High 70 - 100 mg/dL [facility] Glucose [Mass/Vol] 173 mg/dL High 70 - 100 mg/dL [facility] No Panel Informationon 03-27 Interpretation and review of laboratory results Abnormal [facility] Interpretation and review of laboratory results Abnormal [facility] Nursing Noteon 03-27-2024 Nursing Note Report called to Leonides Monzon. Patient's belongings gathered and with patient at bedside. YESSI and AVS in chart. Normal [facility] Progress Noteon 03-27-2024 Progress Note Normal [facility] Progress Note Normal [facility] Progress Note Normal [facility] CARECOORDon 03-26-2024 NADINE Spoke with mother Emerita, reviewed that [facility], [facility] and [facility] can accept. [facility] is facility of choice, snf updated via [employer], auth tasked to be started. [facility] CBC W Auto Differential pane l (Bld)on 03-26-2024 Basophils (Bld) [#/Vol] 0.1 10*3/uL 0.0 - 0.2 10*3/uL [facility] Basophils/100 WBC (Bld) 0.5 % 0.0 - 2.0 % [facility] Eosinophils (Bld) [#/Vol] 0.2 10*3/uL 0.0 - 0.5 10*3/uL [facility] Eosinophils/100 WBC (Bld) 1.1 % 0.0 - 6.0 % [facility] Erythrocyte distribution width (RBC) [Ratio] 13.1 % 11.5 - 15.0 % [facility] Hematocrit (Bld) [Volume fraction] 39.6 % 35.0 - 47.0 % [facility] Hemoglobin (Bld) [Mass/Vol] 13.1 g/dL 11.7 - 16.0 g/dL [facility] Immature granulocytes (Bld) [#/Vol] 0.1 10*3/uL High NINF - 0.1 10*3/uL [facility] Immature granulocytes/100 WBC (Bld) 0.5 % 0.0 - 2.0 % [facility] Interpretation and review of laboratory results Abnormal [facility] Lymphocytes (Bld) [#/Vol] 2.9 10*3/uL 1.0 - 4.3 10*3/uL [facility] Lymphocytes/100 WBC (Bld) 19.2 % 15.0 - 45.0 % [facility] MCH (RBC) [Entitic mass] 28.5 pg 26.0 - 34.0 pg [facility] MCHC (RBC) [Mass/Vol] 33.1 % 30.5 - 36.0 % [facility] MCV (RBC) [Entitic vol] 86.1 fL 77.0 - 99.0 fL [facility] Monocytes (Bld) [#/Vol] 1.7 10*3/uL High 0.0 - 0.9 10*3/uL [facility] Monocytes/100 WBC (Bld) 11.6 % 5.0 - 13.0 % [facility] Neutrophils (Bld) [#/Vol] 10.0 10*3/uL High 1.8 - 7.5 10*3/uL [facility] Neutrophils/100 WBC (Bld) 67.1 % 38.0 - 82.0 % [facility] Nucleated RBC/100 WBC (Bld) [Ratio] 0.0 % [facility] Platelet mean volume (Bld) [Entitic vol] 12.1 fL 9.0 - 12.7 fL [facility] Platelets (Bld) [#/Vol] 329 10*3/uL 140 - 440 10*3/uL [facility] RBC (Bld) [#/Vol] 4.60 10*6/uL 3.80 - 5.2 0 10*6/uL [facility] WBC (Bld) [#/Vol] 14.9 10*3/uL High 3.6 - 10.7 10*3/uL [facility] CBC WITH AUTO DIFFERENTIALon 03-26-2024 Basophils (Bld) [#/Vol] 0.1 10*3/uL Normal 0.0-0.2 [facility] Comment on above: Performed By: #### L [id number] ####Family Dinner Service Specialist: MESERET PAULA ([phone])[facility])[address] [place] [address] Basophils/100 WBC (Bld) 0.5 % Normal 0.0-2.0 [facility] Comment on above: Performed By: #### L [id number] ####Family Dinner Service Specialist: MESERET PAULA ([phone])[facility])[address] [place] [address] Eosinophils (Bld) [#/Vol] 0.2 10*3/uL Normal 0.0-0.5 [facility] Comment on above: Performed By: #### L [id number] ####Family Dinner Service Specialist: MESERET PAULA ([phone])[facility])[address] [place] [address] Eosinophils/100 WBC (Bld) 1.1 % Normal 0.0-6.0 [facility] Comment on above: Performed By: #### L [id number] ####Family Dinner Service Specialist: MESERET PAULA ([phone])[facility])[address] [place] [address] Erythrocyte distribution width (RBC) [Ratio] 13.1 % Normal 11.5-15.0 [facility] Comment on above: Performed By: #### L [id number] ####Family Dinner Service Specialist: MESERET PAULA ([phone])[facility] Hematocrit (Bld) [Volume fraction] 39.6 % Normal 35.0-47.0 [facility] Comment on above: Performed By: #### L [id number] ####Family Dinner Service Specialist: MESERET PAULA ([phone])[facility])[address] [place] [address] Hemoglobin (Bld) [Mass/Vol] 13.1 g/dL Normal 11.7-16.0 [facility] Comment on above: Performed By: #### L [id number] ####Family Dinner Service Specialist: MESERET PAULA ([phone])[facility])[address] [place] [address] IMMATURE GRANS % 0.5 % Normal 0.0-2.0 [facility] Comment on above: Performed By: #### L [id number] ####Family Dinner Service Specialist: MESERET PAULA ([phone])[facility])[address] [place] [address] IMMATURE GRANS ABSOLUTE 0.1 10*3/uL High <0.1 [facility] Comment on above: Performed By: #### L [id number] ####Family Dinner Service Specialist: MESERET PAULA ([phone])[facility])[address] [place] [address] Lymphocytes (Bld) [#/Vol] 2.9 10*3/uL Normal 1.0-4.3 [facility] Comment on above: Performed By: #### L [id number] ####Family Dinner Service Specialist: MESERET PAULA ([phone])[facility])[address] [place] [address] Lymphocytes/100 WBC (Bld) 19.2 % Normal 15.0-45.0 [facility] Comment on above: Performed By: #### L [id number] ####Family Dinner Service Specialist: MESERET PAULA ([phone])[facility])[address] [place] [address] MCH (RBC) [Entitic mass] 28.5 pg Normal 26.0-34.0 [facility] Comment on above: Performed By: #### L [id number] ####Family Dinner Service Specialist: MESERET PAULA ([phone])[facility])[address] [place] [address] MCHC 33.1 % Normal 30.5-36.0 [facility] Comment on above: Performed By: #### L [id number] ####Family Dinner Service Specialist: MESERET PAULA ([phone])[facility])[address] [place] [address] MCV (RBC) [Entitic vol] 86.1 fL Normal 77.0-99.0 [facility] Comment on above: Performed By: #### L [id number] ####Family Dinner Service Specialist: MESERET PAULA ([phone])[facility])[address] [place] [address] Monocytes (Bld) [#/Vol] 1.7 10*3/uL High 0.0-0.9 [facility] Comment on above: Performed By: #### L [id number] ####Family Dinner Service Specialist: MESERET PAULA ([phone])[facility])[address] [place] [address] Monocytes/100 WBC (Bld) 11.6 % Normal 5.0-13.0 [facility] Comment on above: Performed By: #### L [id number] ####Family Dinner Service Specialist: MESERET PAULA ([phone])[facility])[address] [place] [address] NEUTROPHILS ABSOLUTE 10.0 10*3/uL High 1.8-7.5 [facility] Comment on above: Performed By: #### L [id number] ####Family Dinner Service Specialist: MESERET PAULA ([phone])[facility])[address] [place] [address] Neutrophils/100 WBC (Bld) 67.1 % Normal 38.0-82.0 [facility] Comment on above: Performed By: #### L [id number] ####Family Dinner Service Specialist: MESEERT PAULA ([phone])[facility])[address] [place] [address] NRBC 0.0 /100 WBCs Normal 0.0-2.0 [facility] Comment on above: Performed By: #### L [id number] ####Family Dinner Service Specialist: MESERET PAULA ([phone])[facility])[address] [place] [address] Platelet mean volume (Bld) [Entitic vol] 12.1 fL Normal 9.0-12.7 [facility] Comment on above: Performed By: #### L [id number] ####Family Dinner Service Specialist: MESERET PAULA ([phone])[facility])[address] [place] [address] Platelets (Bld) [#/Vol] 329 10*3/uL Normal 140-440 [facility] Comment on above: Performed By: #### L [id number] ####Family Dinner Service Specialist: MESERET PAULA ([phone])[facility])[address] [place] [address] RBC (Bld) [#/Vol] 4.60 10*6/uL Normal 3.80-5.20 [facility] Comment on above: Performed By: #### L [id number] ####Family Dinner Service Specialist: MESERET PAULA ([phone])[facility])[address] [place] [address] WBC (Bld) [#/Vol] 14.9 10*3/uL High 3.6-10.7 [facility] Comment on above: Performed By: #### L [id number] ####Family Dinner Service Specialist: MESERET PAULA ([phone])[facility])[address] [place] [address] COMPREHENSIVE METABOLIC PANE [place] 03-26-2024 Albumin [Mass/Vol] 3.8 g/dL Normal 3.5-5.0 [facility] Comment on above: Performed By: #### L [id number], [id number], LAB17 ####Family Dinner Service Specialist: MESERET PAULA ([phone])[facility] [place] [address] [place] ALP [Catalytic activity/Vol] 173 U/L High 38-126 [facility] Comment on above: Performed By: #### L [id number], [id number], LAB17 ####Family Dinner Service Specialist: MESERET PAULA ([phone])[facility] [place] [address] [place] ALT [Catalytic activity/Vol] 121 U/L High 0-34 [facility] Comment on above: Performed By: #### L AB113, [id number], LAB17 ####Family Dinner Service Specialist: MESERET PAULA ([phone])[facility] ([facility])[address] [place] [address] Anion gap [Moles/Vol] 11 mmol/L Normal 3-13 [facility] Comment on above: Performed By: #### Yumiko ABAlina, [id number], LAB17 ####Family Dinner Service Specialist: MESERET PAULA ([phone])[facility] ([facility])[address] [place] [address] [place] AST [Catalytic activity/Vol] 85 U/L High 15-46 [facility] Comment on above: Performed By: #### Yumiko AB113, [id number], LAB17 ####Family Dinner Service Specialist: MESERET PAULA ([phone])[facility])[address] [place] [address] Bilirubin [Mass/Vol] 0.8 mg/dL Normal 0.2-1.3 [facility] Comment on above: Performed By: #### L AB113, [id number], LAB17 ####Family Dinner Service Specialist: MESERET PAULA ([phone])[facility] ([facility])[address] [place] [address] [place] Calcium [Mass/Vol] 9.2 mg/dL Normal 8.4-10.4 [facility] Comment on above: Performed By: #### L AB113, [id number], LAB17 ####Family Dinner Service Specialist: MESERET PAULA ([phone])[facility] ([facility])[address] [place] [address] [place] Chloride [Moles/Vol] 103 mmol/L Normal 98-107 [facility] Comment on above: Performed By: #### L AB113, [id number], LAB17 ####Family Dinner Service Specialist: MESERET PAULA ([phone])[facility])[address] [place] [address] CO2 [Moles/Vol] 21 mmol/L Low 22-30 [facility] Comment on above: Performed By: #### L AB113, [id number], LAB17 ####Family Dinner Service Specialist: MESERET PAULA ([phone])[facility])[address] [place] [address] Creatinine [Mass/Vol] 1.22 mg/dL High 0.52-1.04 [facility] Comment on above: Performed By: #### Yumiko AB113, DEU111, LAB17 ####Family Dinner Service Specialist: MESERET PAULA ([phone])[facility])[address] [place] [address] GLOMERULAR FILTRATION RATE ML/MIN/1.73 SQ M.PREDICTED 53.5 mL/min/1.73m*2 Low >60.0 [facility] Comment on above: Result Comment: Calc ulation based on the Chronic Kidney Disease Epidemiology Collaboration (CKD-EPI) equation refit without adjustment for race Performed By: #### L AB113, [id number], LAB17 ####Family Dinner Service Specialist: MESERET PAULA ([phone])[facility] ([facility])[address] [place] [address] Glucose [Mass/Vol] 179 mg/dL High 70-100 [facility] Comment on above: Performed By: #### L AB113, [id number], LAB17 ####Family Dinner Service Specialist: MESERET PAULA ([phone])[facility])[address] [place] [address] Potassium [Moles/Vol] 4.5 mmol/L Normal 3.5-5.1 [facility] Comment on above: Performed By: #### L AB113, [id number], LAB17 ####Family Dinner Service Specialist: MESERET [phone])[facility] [place] [address] Protein [Mass/Vol] 8.0 g/dL Normal 6.3-8.2 [facility] Comment on above: Performed By: #### L AB113, [id number], LAB17 ####Family Dinner Service Specialist: MESERET PAULA ([phone])[facility] ([facility])[address] [place] [address] Sodium [Moles/Vol] 135 mmol/L Normal 135-145 [facility] Comment on above: Performed By: #### L AB113, [id number], LAB17 ####Family Dinner Service Specialist: MESERET PAULA ([phone])[facility])[address] [place] [address] Urea nitrogen [Mass/Vol] 25 mg/dL High 7-17 [facility] Comment on above: Performed By: #### L AB113, [id number], LAB17 ####Family Dinner Service Specialist: MESERET PAULA ([phone])[facility] [place] [address] CT HEAD WO IV CONTRASTon CT HEAD WO IV CONTRAST Normal [facility] CT Head WO contraston 2023 [facility] RADIOLOGY [facility] EMERGENCY DEPARTMENT RADIOLOGY SYSTEM [facility] Radiology Study observation (narrative) [facility] Comprehensive metabolic 1998 panelon 03-26-2024 Albumin [Mass/Vol] 3.8 g/dL 3.5 - 5.0 g/dL [facility] ALP [Catalytic activity/Vol] 173 U/L High 38 - 126 U/L [facility] ALT [Catalytic activity/Vol] 121 U/L High 0 - 34 U/L [facility] Anion gap [Moles/Vol] 11 mmol/L 3 - 13 mmol/L [facility] AST [Catalytic activity/Vol] 85 U/L High 15 - 46 U/L [facility] Bilirubin [Mass/Vol] 0.8 mg/dL 0.2 - 1 .3 mg/dL [facility] Calcium [Mass/Vol] 9.2 mg/dL 8.4 - 10. 4 mg/dL [facility] Chloride [Moles/Vol] 103 mmol/L 98 - 10 7 mmol/L [facility] CO2 [Moles/Vol] 21 mmol/L Low 22 - 30 mmol/L [facility] Creatinine [Mass/Vol] 1.22 mg/dL High 0.52 - 1.04 mg/dL [facility] GFR/1.73 sq M.predicted MDRD (S/P/Bld) [Vol rate/Area] 53.5 mL/min/{1.73_m2} Low - PINF [facility] Glucose [Mass/Vol] 179 mg/dL High 70 - 100 mg/dL [facility] Interpretation and review of laboratory results Abnormal [facility] Potassium [Moles/Vol] 4.5 mmol/L 3.5 - 5.1 mmol/L [facility] Protein [Mass/Vol] 8.0 g/dL 6.3 - 8.2 g/dL [facility] Sodium [Moles/Vol] 135 mmol/L 135 - 145 mmol/L [facility] Urea nitrogen [Mass/Vol] 25 mg/dL High 7 - 17 mg/dL [facility] IDNon 03-26-2024 IDN Normal [facility] Laboratory - Chemistry and C hemistry - challengeon 03-26-2024 Glucose [Mass/Vol] 185 mg/dL High 70 - 100 mg/dL [facility] Glucose [Mass/Vol] 159 mg/dL High 70 - 100 mg/dL [facility] Glucose [Mass/Vol] 238 mg/dL High 70 - 100 mg/dL [facility] Glucose [Mass/Vol] 211 mg/dL High 70 - 100 mg/dL [facility] Glucose [Mass/Vol] 181 mg/dL High 70 - 100 mg/dL [facility] Magnesium [Mass/Vol] 2.2 mg/dL 1.6 - 2 .3 mg/dL [facility] MAGNESIUMon 03-26-2024 Magnesium [Mass/Vol] 2.2 mg/dL Normal 1.6-2.3 [facility] Comment on above: Performed By: #### L AB113, [id number], LAB17 ####Family Dinner Service Specialist: MESERET PAULA ([phone])[facility] ([address] No Panel Informationon 03-26 Interpretation and review of laboratory results Abnormal [facility] Interpretation and review of laboratory results Abnormal [facility] Interpretation and review of laboratory results Abnormal [facility] Interpretation and review of laboratory results Abnormal [facility] Interpretation and review of laboratory results Abnormal [facility] Interpretation and review of laboratory results Normal [facility] Nursing Noteon 03-26-2024 Nursing Note Normal [facility] PHOSPHORUSon 03-26-2024 Phosphate [Mass/Vol] 4.3 mg/dL Normal 2.5-4.5 [facility] Comment on above: Performed By: #### L AB113, [id number], LAB17 ####Family Dinner Service Specialist: MESERET PAULA ([phone])[address] Phosphate [Moles/Vol]on Phosphate [Mass/Vol] 4.3 mg/dL 2.5 - 4 .5 mg/dL [facility] Progress Noteon 03-26-2024 Progress Note Normal [facility] Progress Note Normal [facility] Progress Note Normal [facility] Progress Note Normal [facility] Progress Note Normal [facility] Progress Note Normal [facility] Progress Note Normal [facility] US ABDOMEN COMPLETEon 2023 US ABDOMEN COMPLETE Normal [facility] US Abdomenon 03-26-2024 [facility] RADIOLOGY [facility] EMERGENCY DEPARTMENT RADIOLOGY [facility] Radiology Study observation (narrative) [facility] US AbdomenOrdered By: Bety Atkinson on 03-26-2024 [facility] Work Phone: CARECOORDon 03-25-2024 CARECOORD Normal [facility] [place]OD[place] SW following with TCC. Normal [facility] CAR[place] Normal [facility] CBC W Auto Differential pane l (Bld)on 03-25-2024 Basophils (Bld) [#/Vol] 0.1 10*3/uL 0.0 - 0.2 10*3/uL [facility] Basophils/100 WBC (Bld) 0.6 % 0.0 - 2.0 % [facility] Eosinophils (Bld) [#/Vol] 0.2 10*3/uL 0.0 - 0.5 10*3/uL [facility] Eosinophils/100 WBC (Bld) 1.0 % 0.0 - 6.0 % [facility] Erythrocyte distribution width (RBC) [Ratio] 13.1 % 11.5 - 15.0 % [facility] Hematocrit (Bld) [Volume fraction] 41.6 % 35.0 - 47.0 % [facility] Hemoglobin (Bld) [Mass/Vol] 13.7 g/dL 11.7 - 16.0 g/dL [facility] Immature granulocytes (Bld) [#/Vol] 0.1 10*3/uL High NINF - 0.1 10*3/uL [facility] Immature granulocytes/100 WBC (Bld) 0.6 % 0.0 - 2.0 % [facility] Interpretation and review of laboratory results Abnormal [facility] Lymphocytes (Bld) [#/Vol] 3.1 10*3/uL 1.0 - 4.3 10*3/uL [facility] Lymphocytes/100 WBC (Bld) 21.5 % 15.0 - 45.0 % [facility] MCH (RBC) [Entitic mass] 28.3 pg 26.0 - 34.0 pg [facility] MCHC (RBC) [Mass/Vol] 32.9 % 30.5 - 36.0 % [facility] MCV (RBC) [Entitic vol] 86.0 fL 77.0 - 99.0 fL [facility] Monocytes (Bld) [#/Vol] 1.8 10*3/uL High 0.0 - 0.9 10*3/uL [facility] Monocytes/100 WBC (Bld) 12.8 % 5.0 - 13.0 % [facility] Neutrophils (Bld) [#/Vol] 9.1 10*3/uL High 1.8 - 7.5 10*3/uL [facility] Neutrophils/100 WBC (Bld) 63.5 % 38.0 - 82.0 % [facility] Nucleated RBC/100 WBC (Bld) [Ratio] 0.0 % [facility] Platelet mean volume (Bld) [Entitic vol] 12.0 fL 9.0 - 12.7 fL [facility] Platelets (Bld) [#/Vol] 301 10*3/uL 140 - 440 10*3/uL [facility] RBC (Bld) [#/Vol] 4.84 10*6/uL 3.80 - 5.2 0 10*6/uL [facility] WBC (Bld) [#/Vol] 14.4 10*3/uL High 3.6 - 10.7 10*3/uL [facility] CBC WITH AUTO DIFFERENTIALon 03-25-2024 Basophils (Bld) [#/Vol] 0.1 10*3/uL Normal 0.0-0.2 [facility] Comment on above: Performed By: #### L [id number] ####Family Dinner Service Specialist: MESERET PAULA ([phone])[facility] ([facility])[address] [place] [address] Basophils/100 WBC (Bld) 0.6 % Normal 0.0-2.0 [facility] Comment on above: Performed By: #### L [id number] ####Family Dinner Service Specialist: MESERET PAULA ([phone])[facility] ([facility])[address] [place] [address] Eosinophils (Bld) [#/Vol] 0.2 10*3/uL Normal 0.0-0.5 [facility] Comment on above: Performed By: #### L [id number] ####Family Dinner Service Specialist: MESERET PAULA ([phone])[facility] ([facility])[address] [place] [address] Eosinophils/100 WBC (Bld) 1.0 % Normal 0.0-6.0 [facility] Comment on above: Performed By: #### L [id number] ####Family Dinner Service Specialist: MESERET PAULA ([phone])[facility])[address] [place] [address] Erythrocyte distribution width (RBC) [Ratio] 13.1 % Normal 11.5-15.0 [facility] Comment on above: Performed By: #### L [id number] ####Family Dinner Service Specialist: MESERET PAULA ([phone])[facility])[address] [place] [address] Hematocrit (Bld) [Volume fraction] 41.6 % Normal 35.0-47.0 [facility] Comment on above: Performed By: #### L [id number] ####Family Dinner Service Specialist: MESERET PAULA ([phone])[facility])[address] [place] [address] Hemoglobin (Bld) [Mass/Vol] 13.7 g/dL Normal 11.7-16.0 [facility] [place] [facility] Comment on above: Performed By: #### L [id number] ####Family Dinner Service Specialist: MESERET PAULA ([phone])[facility])[address] [place] [address] IMMATURE GRANS % 0.6 % Normal 0.0-2.0 [facility] Comment on above: Performed By: #### L [id number] ####Family Dinner Service Specialist: MESERET PAULA ([phone])[facility])[address] [place] [address] IMMATURE GRANS ABSOLUTE 0.1 10*3/uL High <0.1 [facility] [place] [facility] Comment on above: Performed By: #### L [id number] ####Family Dinner Service Specialist: MESERET PAULA ([phone])[facility])[address] [place] [address] Lymphocytes (Bld) [#/Vol] 3.1 10*3/uL Normal 1.0-4.3 [facility] [place] [facility] Comment on above: Performed By: #### L [id number] ####Family Dinner Service Specialist: MESERET PAULA ([phone])[facility])[address] [place] [address] Lymphocytes/100 WBC (Bld) 21.5 % Normal 15.0-45.0 [facility] [place] [facility] Comment on above: Performed By: #### L [id number] ####Family Dinner Service Specialist: MESERET PAULA ([phone])[facility])[address] [place] [address] MCH (RBC) [Entitic mass] 28.3 pg Normal 26.0-34.0 [facility] [place] [facility] Comment on above: Performed By: #### L [id number] ####Family Dinner Service Specialist: MESERET PAULA ([phone])[facility])[address] [place] [address] MCHC 32.9 % Normal 30.5-36.0 [facility] [place] [facility] Comment on above: Performed By: #### L [id number] ####Family Dinner Service Specialist: MESERET PAULA ([phone])[facility])[address] [place] [address] MCV (RBC) [Entitic vol] 86.0 fL Normal 77.0-99.0 [facility] Comment on above: Performed By: #### L [id number] ####Family Dinner Service Specialist: MESERET PAULA ([phone])[facility])[address] [place] [address] Monocytes (Bld) [#/Vol] 1.8 10*3/uL High 0.0-0.9 [facility] [place] [facility] Comment on above: Performed By: #### L [id number] ####Family Dinner Service Specialist: MESERET PAULA ([phone])[facility])[address] [place] [address] Monocytes/100 WBC (Bld) 12.8 % Normal 5.0-13.0 [facility] Comment on above: Performed By: #### L [id number] ####Family Dinner Service Specialist: MESERET PAULA ([phone])[facility])[address] [place] [address] NEUTROPHILS ABSOLUTE 9.1 10*3/uL High 1.8-7.5 [facility] Comment on above: Performed By: #### L [id number] ####Family Dinner Service Specialist: MESERET PAULA ([phone])[facility])[address] [place] [address] Neutrophils/100 WBC (Bld) 63.5 % Normal 38.0-82.0 [facility] [place] [facility] Comment on above: Performed By: #### L [id number] ####Family Dinner Service Specialist: MESERET PAULA ([phone])[facility] ([facility])[address] [place] [address] NRBC 0.0 /100 WBCs Normal 0.0-2.0 [facility] Comment on above: Performed By: #### L [id number] ####Family Dinner Service Specialist: MESERET PAULA ([phone])[facility] ([facility])[address] [place] [address] Platelet mean volume (Bld) [Entitic vol] 12.0 fL Normal 9.0-12.7 [facility] [place] [facility] Comment on above: Performed By: #### L [id number] ####Family Dinner Service Specialist: MESERET PAULA ([phone])[facility] ([facility])[address] [place] [address] Platelets (Bld) [#/Vol] 301 10*3/uL Normal 140-440 [facility] [place] [facility] Comment on above: Performed By: #### L [id number] ####Family Dinner Service Specialist: MESERET PAULA ([phone])[facility] ([facility])[address] [place] [address] RBC (Bld) [#/Vol] 4.84 10*6/uL Normal 3.80-5.20 [facility] [place] [facility] Comment on above: Performed By: #### L [id number] ####Family Dinner Service Specialist: MESERET PAULA ([phone])[facility] ([facility])[address] [place] [address] WBC (Bld) [#/Vol] 14.4 10*3/uL High 3.6-10.7 [facility] [place] [facility] Comment on above: Performed By: #### L [id number] ####Family Dinner Service Specialist: MESERET PAULA ([phone])[facility])[address] [place] [address] COMPREHENSIVE METABOLIC PANE [place] 03-25-2024 Albumin [Mass/Vol] 3.9 g/dL Normal 3.5-5.0 [facility] [place] [facility] Comment on above: Performed By: #### Yumiko ABAlina, LAB17, [id number] ####Family Dinner Service Specialist: MESERET PAULA ([phone])[facility] [place] [address] ALP [Catalytic activity/Vol] 137 U/L High 38-126 [facility] [place] [facility] Comment on above: Performed By: #### Yumiko ABAlina, LAB17, [id number] ####Family Dinner Service Specialist: MESERET PAULA ([phone])[facility] [place] [address] ALT [Catalytic activity/Vol] 87 U/L High 0-34 [facility] [place] [facility] Comment on above: Performed By: #### Yumiko ABAlina, LAB17, [id number] ####Family Dinner Service Specialist: MESERET PAULA ([phone])[facility] ([facility])[address] [place] [address] Anion gap [Moles/Vol] 9 mmol/L Normal 3-13 [facility] Comment on above: Performed By: #### Yumiko ABAlina, LAB17, [id number] ####Family Dinner Service Specialist: MESERET PAULA ([phone])[facility] ([facility])[address] [place] [address] AST [Catalytic activity/Vol] 70 U/L High 15-46 [facility] [place] [facility] Comment on above: Performed By: #### Yumiko ABAlina, LAB17, [id number] ####Family Dinner Service Specialist: MESERET PAULA ([phone])[facility] ([facility])[address] [place] [address] Bilirubin [Mass/Vol] 0.9 mg/dL Normal 0.2-1.3 [facility] Comment on above: Performed By: #### Yumiko ABAlina, LAB17, [id number] ####Family Dinner Service Specialist: MESERET PAULA ([phone])[facility] ([facility])[address] [place] [address] Calcium [Mass/Vol] 9.4 mg/dL Normal 8.4-10.4 [facility] [place] [facility] Comment on above: Performed By: #### Yumiko ABAlina, LAB17, [id number] ####Family Dinner Service Specialist: MESERET PAULA ([phone])[facility] ([facility])[address] [place] [address] [place] Chloride [Moles/Vol] 103 mmol/L Normal 98-107 [facility] Comment on above: Performed By: #### L AB113, LAB17, [id number] ####Family Dinner Service Specialist: MESERET PAULA ([phone])[facility] [place] [address] [place] CO2 [Moles/Vol] 20 mmol/L Low 22-30 [facility] Comment on above: Performed By: #### Yumiko ABAlina, LAB17, [id number] ####Family Dinner Service Specialist: MESERET PAULA ([phone])[facility] ([facility])[address] [place] [address] Creatinine [Mass/Vol] 1.11 mg/dL High 0.52-1.04 [facility] Comment on above: Performed By: #### Yumiko ABAlina, LAB17, [id number] ####Family Dinner Service Specialist: MESERET PAULA ([phone])[facility] [place] [address] [place] GLOMERULAR FILTRATION RATE ML/MIN/1.73 SQ M.PREDICTED 59.9 mL/min/1.73m*2 Low >60.0 [facility] Comment on above: Result Comment: Calc ulation based on the Chronic Kidney Disease Epidemiology Collaboration (CKD-EPI) equation refit without adjustment for race Performed By: #### Yumiko ABAlina, LAB17, [id number] ####Family Dinner Service Specialist: MESERET PAULA ([phone])[facility] [place] [address] [place] Glucose [Mass/Vol] 193 mg/dL High 70-100 [facility] Comment on above: Performed By: #### L ABAlina, LAB17, [id number] ####Family Dinner Service Specialist: MESERET PAULA ([phone])[facility] [place] [address] [place] Potassium [Moles/Vol] 4.6 mmol/L Normal 3.5-5.1 [facility] Comment on above: Performed By: #### L AB113, LAB17, [id number] ####Family Dinner Service Specialist: MESERET PAULA ([phone])[facility])[address] [place] [address] Protein [Mass/Vol] 8.2 g/dL Normal 6.3-8.2 [facility] Comment on above: Performed By: #### L AB113, LAB17, [id number] ####Family Dinner Service Specialist: MESERET PAULA ([phone])[facility] ([facility])[address] [place] [address] Sodium [Moles/Vol] 132 mmol/L Low 135-145 [facility] [place] [facility] Comment on above: Performed By: #### Yumiko ABAlina, LAB17, [id number] ####Family Dinner Service Specialist: MESERET PAULA ([phone])[facility] ([facility])[address] [place] [address] Urea nitrogen [Mass/Vol] 23 mg/dL High 7-17 [facility] [place] [facility] Comment on above: Performed By: #### Yumiko AB113, LAB17, [id number] ####Family Dinner Service Specialist: MESERET PAULA ([phone])[facility] ([facility])[address] [place] [address] Comprehensive metabolic 1998 panelon 03-25-2024 Albumin [Mass/Vol] 3.9 g/dL 3.5 - 5.0 g/dL [facility] ALP [Catalytic activity/Vol] 137 U/L High 38 - 126 U/L [facility] ALT [Catalytic activity/Vol] 87 U/L High 0 - 34 U/L [facility] Anion gap [Moles/Vol] 9 mmol/L 3 - 13 mmol/L [facility] AST [Catalytic activity/Vol] 70 U/L High 15 - 46 U/L [facility] Bilirubin [Mass/Vol] 0.9 mg/dL 0.2 - 1 .3 mg/dL [facility] Calcium [Mass/Vol] 9.4 mg/dL 8.4 - 10. 4 mg/dL [facility] Chloride [Moles/Vol] 103 mmol/L 98 - 10 7 mmol/L [facility] CO2 [Moles/Vol] 20 mmol/L Low 22 - 30 mmol/L [facility] Creatinine [Mass/Vol] 1.11 mg/dL High 0.52 - 1.04 mg/dL [facility] GFR/1.73 sq M.predicted MDRD (S/P/Bld) [Vol rate/Area] 59.9 mL/min/{1.73_m2} Low - PINF [facility] Glucose [Mass/Vol] 193 mg/dL High 70 - 100 mg/dL [facility] Potassium [Moles/Vol] 4.6 mmol/L 3.5 - 5.1 mmol/L [facility] Protein [Mass/Vol] 8.2 g/dL 6.3 - 8.2 g/dL [facility] Sodium [Moles/Vol] 132 mmol/L Low 135 - 145 mmol/L [facility] Urea nitrogen [Mass/Vol] 23 mg/dL High 7 - 17 mg/dL [facility] IDNon 03-25-2024 IDN Patient verbalizes understanding to call for help. Patient used call light appropriately this shift to call for assistance. Safety measures maintained. Normal [facility] Laboratory - Chemistry and C hemistry - challengeon 03-25-2024 Glucose [Mass/Vol] 267 mg/dL High 70 - 100 mg/dL [facility] Glucose [Mass/Vol] 128 mg/dL High 70 - 100 mg/dL [facility] Glucose [Mass/Vol] 271 mg/dL High 70 - 100 mg/dL [facility] Glucose [Mass/Vol] 226 mg/dL High 70 - 100 mg/dL [facility] Magnesium [Mass/Vol] 2.2 mg/dL 1.6 - 2 .3 mg/dL [facility] MAGNESIUMon 03-25-2024 Magnesium [Mass/Vol] 2.2 mg/dL Normal 1.6-2.3 [facility] Comment on above: Performed By: #### L AB113, LAB17, [id number] ####Family Dinner Service Specialist: MESERET PAULA ([phone])[facility] ([address] Magnesium [Mass/Vol]on 03-25 Interpretation and review of laboratory results Normal [facility] No Panel Informationon 03-25 Interpretation and review of laboratory results Abnormal [facility] Interpretation and review of laboratory results Abnormal [facility] Interpretation and review of laboratory results Abnormal [facility] Interpretation and review of laboratory results Abnormal [facility] Interpretation and review of laboratory results Abnormal [facility] Nursing Noteon 03-25-2024 Nursing Note Normal [facility] Nursing Note Dr. Ace Cam notified that patients ALT/AST labs continue to elevate, and patient continues to take Tylenol prn. Dr. Cam acknowledged, no new orders received. Normal [facility] PHOSPHORUSon 03-25-2024 Phosphate [Mass/Vol] 4.6 mg/dL High 2.5-4.5 [facility] Comment on above: Performed By: #### L AB113, LAB17, [id number] ####Family Dinner Service Specialist: MESERET PAULA ([phone])[address] Phosphate [Moles/Vol]on Phosphate [Mass/Vol] 4.6 mg/dL High 2.5 - 4 .5 mg/dL [facility] Progress Noteon 03[facility]25-2024 Progress Note Normal [facility] Progress Note Normal [facility] Progress Note Normal [facility] Progress [facility] Normal [facility] Progress Note Normal [facility] [place] 03-24-2024 [place] Spoke with [facility] liaison, auth is back thru 03/29. No bed available at [facility] today. TCC to follow. Normal [facility] CBC W Auto Differential pane l (Bld)Ordered By: Jenifer Campos on 03-24-2024 Basophils (Bld) [#/Vol] 0.1 10*3/uL 0.0 - 0.2 10*3/uL [facility] Basophils/100 WBC (Bld) 0.4 % 0.0 - 2.0 % [facility] Eosinophils (Bld) [#/Vol] 0.1 10*3/uL 0.0 - 0.5 10*3/uL [facility] Eosinophils/100 WBC (Bld) 0.7 % 0.0 - 6.0 % [facility] Erythrocyte distribution width (RBC) [Ratio] 13.0 % 11.5 - 15.0 % [facility] Hematocrit (Bld) [Volume fraction] 41.3 % 35.0 - 47.0 % [facility] Hemoglobin (Bld) [Mass/Vol] 13.8 g/dL 11.7 - 16.0 g/dL [facility] Immature granulocytes (Bld) [#/Vol] 0.1 10*3/uL High NINF - 0.1 10*3/uL [facility] Immature granulocytes/100 WBC (Bld) 0.5 % 0.0 - 2.0 % [facility] Interpretation and review of laboratory results Abnormal [facility] Lymphocytes (Bld) [#/Vol] 2.7 10*3/uL 1.0 - 4.3 10*3/uL [facility] Lymphocytes/100 WBC (Bld) 18.2 % 15.0 - 45.0 % [facility] MCH (RBC) [Entitic mass] 28.7 pg 26.0 - 34.0 pg [facility] MCHC (RBC) [Mass/Vol] 33.4 % 30.5 - 36.0 % [facility] MCV (RBC) [Entitic vol] 85.9 fL 77.0 - 99.0 fL [facility] Monocytes (Bld) [#/Vol] 1.9 10*3/uL High 0.0 - 0.9 10*3/uL [facility] Monocytes/100 WBC (Bld) 12.5 % 5.0 - 13.0 % [facility] Neutrophils (Bld) [#/Vol] 10.1 10*3/uL High 1.8 - 7.5 10*3/uL [facility] Neutrophils/100 WBC (Bld) 67.7 % 38.0 - 82.0 % [facility] Nucleated RBC/100 WBC (Bld) [Ratio] 0.0 % [facility] Platelet mean volume (Bld) [Entitic vol] 12.0 fL 9.0 - 12.7 fL [facility] Platelets (Bld) [#/Vol] 317 10*3/uL 140 - 440 10*3/uL [facility] RBC (Bld) [#/Vol] 4.81 10*6/uL 3.80 - 5.2 0 10*6/uL [facility] WBC (Bld) [#/Vol] 15.0 10*3/uL High 3.6 - 10.7 10*3/uL [facility] CBC WITH AUTO DIFFERENTIALon 03-24-2024 Basophils (Bld) [#/Vol] 0.1 10*3/uL Normal 0.0-0.2 [facility] [place] [facility] Comment on above: Performed By: #### L [id number] ####Family Dinner Service Specialist: MESERET PAULA ([phone])[facility])[address] [place] [address] Basophils/100 WBC (Bld) 0.4 % Normal 0.0-2.0 [facility] Comment on above: Performed By: #### L [id number] ####Family Dinner Service Specialist: MESERET PAULA ([phone])[facility])[address] [place] [address] Eosinophils (Bld) [#/Vol] 0.1 10*3/uL Normal 0.0-0.5 [facility] [place] [facility] Comment on above: Performed By: #### L [id number] ####Family Dinner Service Specialist: MESERET PAULA ([phone])[facility])[address] [place] [address] Eosinophils/100 WBC (Bld) 0.7 % Normal 0.0-6.0 [facility] [place] [facility] Comment on above: Performed By: #### L [id number] ####Family Dinner Service Specialist: MESERET PAULA ([phone])[facility])[address] [place] [address] Erythrocyte distribution width (RBC) [Ratio] 13.0 % Normal 11.5-15.0 [facility] [place] [facility] Comment on above: Performed By: #### L [id number] ####Family Dinner Service Specialist: MESERET PAULA ([phone])[facility])[address] [place] [address] Hematocrit (Bld) [Volume fraction] 41.3 % Normal 35.0-47.0 [facility] [place] [facility] Comment on above: Performed By: #### L [id number] ####Family Dinner Service Specialist: MESERET PAULA ([phone])[facility])[address] [place] [address] Hemoglobin (Bld) [Mass/Vol] 13.8 g/dL Normal 11.7-16.0 [facility] [place] [facility] Comment on above: Performed By: #### L [id number] ####Family Dinner Service Specialist: MESERET PAULA ([phone])[facility])[address] [place] [address] IMMATURE GRANS % 0.5 % Normal 0.0-2.0 [facility] Comment on above: Performed By: #### L [id number] ####Family Dinner Service Specialist: MESERET PAULA ([phone])[facility])[address] [place] [address] IMMATURE GRANS ABSOLUTE 0.1 10*3/uL High <0.1 [facility] [place] [facility] Comment on above: Performed By: #### L [id number] ####Family Dinner Service Specialist: MESERET PAULA ([phone])[facility] ([facility])[address] [place] [address] Lymphocytes (Bld) [#/Vol] 2.7 10*3/uL Normal 1.0-4.3 [facility] [place] [facility] Comment on above: Performed By: #### L [id number] ####Family Dinner Service Specialist: MESERET PAULA ([phone])[facility])[address] [place] [address] Lymphocytes/100 WBC (Bld) 18.2 % Normal 15.0-45.0 [facility] [place] [facility] Comment on above: Performed By: #### L [id number] ####Family Dinner Service Specialist: MESERET PAULA ([phone])[facility])[address] [place] [address] MCH (RBC) [Entitic mass] 28.7 pg Normal 26.0-34.0 [facility] [place] [facility] Comment on above: Performed By: #### L [id number] ####Family Dinner Service Specialist: MESERET PAULA ([phone])[facility])[address] [place] [address] MCHC 33.4 % Normal 30.5-36.0 [facility] [place] [facility] Comment on above: Performed By: #### L [id number] ####Family Dinner Service Specialist: MESERET PAULA ([phone])[facility] ([facility])[address] [place] [address] MCV (RBC) [Entitic vol] 85.9 fL Normal 77.0-99.0 [facility] Comment on above: Performed By: #### L [id number] ####Family Dinner Service Specialist: MESERET PAULA ([phone])[facility])[address] [place] [address] Monocytes (Bld) [#/Vol] 1.9 10*3/uL High 0.0-0.9 [facility] [place] [facility] Comment on above: Performed By: #### L [id number] ####Family Dinner Service Specialist: MESERET PAULA ([phone])[facility] ([facility])[address] [place] [address] Monocytes/100 WBC (Bld) 12.5 % Normal 5.0-13.[address] [facility] Comment on above: Performed By: #### L [id number] ####Family Dinner Service Specialist: MESERET PAULA ([phone])[facility] ([facility])[address] [place] [address] NEUTROPHILS ABSOLUTE 10.1 10*3/uL High 1.8-7.5 [facility] Comment on above: Performed By: #### L [id number] ####Family Dinner Service Specialist: MESERET PAULA ([phone])[facility] ([facility])[address] [place] [address] Neutrophils/100 WBC (Bld) 67.7 % Normal 38.0-82.0 [facility] Comment on above: Performed By: #### L [id number] ####Family Dinner Service Specialist: MESERET PAULA ([phone])[facility])[address] [place] [address] [place] NRBC 0.0 /100 WBCs Normal 0.0-2.0 [facility] Comment on above: Performed By: #### L [id number] ####Family Dinner Service Specialist: MESERET PAULA ([phone])[facility])[address] [place] [address] Platelet mean volume (Bld) [Entitic vol] 12.0 fL Normal 9.0-12.7 [facility] [place] [facility] Comment on above: Performed By: #### L [id number] ####Family Dinner Service Specialist: MESERET PAULA ([phone])[facility] ([facility])[address] [place] [address] Platelets (Bld) [#/Vol] 317 10*3/uL Normal 140-440 [facility] [place] [facility] Comment on above: Performed By: #### L [id number] ####Family Dinner Service Specialist: MESERET PAULA ([phone])[facility])[address] [place] [address] RBC (Bld) [#/Vol] 4.81 10*6/uL Normal 3.80-5.20 [facility] [place] [facility] Comment on above: Performed By: #### L [id number] ####Family Dinner Service Specialist: MESERET PAULA ([phone])[facility])[address] [place] [address] WBC (Bld) [#/Vol] 15.0 10*3/uL High 3.6-10.7 [facility] Comment on above: Performed By: #### L [id number] ####Family Dinner Service Specialist: MESERET PAULA ([phone])[facility])[address] [place] [address] COMPREHENSIVE METABOLIC PANE [place] 03-24-2024 Albumin [Mass/Vol] 3.9 g/dL Normal 3.5-5.0 [facility] Comment on above: Performed By: #### L AB17, [id number], [id number] ####Family Dinner Service Specialist: MESERET PAULA ([phone])[facility])[address] [place] [address] ALP [Catalytic activity/Vol] 133 U/L High 38-126 [facility] Comment on above: Performed By: #### L AB17, [id number], [id number] ####Family Dinner Service Specialist: MESERET PAULA ([phone])[facility])[address] [place] [address] ALT [Catalytic activity/Vol] 67 U/L High 0-34 [facility] Comment on above: Performed By: #### L AB17, [id number], [id number] ####Family Dinner Service Specialist: MESERET PAULA ([phone])[facility] ([facility])[address] [place] [address] Anion gap [Moles/Vol] 10 mmol/L Normal 3-13 [facility] Comment on above: Performed By: #### L AB17, [id number], [id number] ####Family Dinner Service Specialist: MESERET PAULA ([phone])[facility])[address] [place] [address] AST [Catalytic activity/Vol] 63 U/L High 15-46 [facility] Comment on above: Performed By: #### L AB17, [id number], [id number] ####Family Dinner Service Specialist: MESERET PAULA ([phone])[facility] ([facility])[address] [place] [address] Bilirubin [Mass/Vol] 0.9 mg/dL Normal 0.2-1.3 [facility] Comment on above: Performed By: #### L AB17, [id number], [id number] ####Family Dinner Service Specialist: MESERET PAULA ([phone])[facility] ([facility])[address] [place] [address] Calcium [Mass/Vol] 9.5 mg/dL Normal 8.4-10.4 [facility] Comment on above: Performed By: #### L AB17, [id number], [id number] ####Family Dinner Service Specialist: MESERET PAULA ([phone])[facility])[address] [place] [address] Chloride [Moles/Vol] 100 mmol/L Normal 98-107 [facility] Comment on above: Performed By: #### L AB17, [id number], [id number] ####Family Dinner Service Specialist: MESERET PAULA ([phone])[facility] ([facility])[address] [place] [address] CO2 [Moles/Vol] 22 mmol/L Normal 22-30 [facility] Comment on above: Performed By: #### L AB17, [id number], [id number] ####Family Dinner Service Specialist: MESERET PAULA ([phone])[facility] ([facility])[address] [place] [address] Creatinine [Mass/Vol] 1.20 mg/dL High 0.52-1.04 [facility] Comment on above: Performed By: #### Yumiko AB17, [id number], [id number] ####Family Dinner Service Specialist: MESERET PAULA ([phone])[facility])[address] [place] [address] GLOMERULAR FILTRATION RATE ML/MIN/1.73 SQ M.PREDICTED 54.6 mL/min/1.73m*2 Low >60.0 [facility] Comment on above: Result Comment: Calc ulation based on the Chronic Kidney Disease Epidemiology Collaboration (CKD-EPI) equation refit without adjustment for race Performed By: #### Yumiko AB17, [id number], [id number] ####Family Dinner Service Specialist: MESERET PAULA ([phone])[facility] ([facility])[address] [place] [address] [place] Glucose [Mass/Vol] 236 mg/dL High 70-100 [facility] Comment on above: Performed By: #### Yumiko AB17, [id number], [id number] ####Family Dinner Service Specialist: MESERET PAULA ([phone])[facility] ([facility])[address] [place] [address] [place] Potassium [Moles/Vol] 4.6 mmol/L Normal 3.5-5.1 [facility] Comment on above: Performed By: #### L AB17, [id number], [id number] ####Family Dinner Service Specialist: MESERET PAULA ([phone])[facility])[address] [place] [address] [place] Protein [Mass/Vol] 8.0 g/dL Normal 6.3-8.2 [facility] Comment on above: Performed By: #### L AB17, [id number], [id number] ####Family Dinner Service Specialist: MESERET PAULA ([phone])[facility] [place] [address] Sodium [Moles/Vol] 131 mmol/L Low 135-145 [facility] Comment on above: Performed By: #### L AB17, [id number], [id number] ####Family Dinner Service Specialist: MESERET PAULA ([phone])[facility] [place] [address] Urea nitrogen [Mass/Vol] 24 mg/dL High 7-17 [facility] Comment on above: Performed By: #### L AB17, [id number], [id number] ####Family Dinner Service Specialist: MESERET PAULA ([phone])[facility] [place] [address] Comprehensive metabolic 1998 panelon 03-24-2024 Albumin [Mass/Vol] 3.9 g/dL 3.5 - 5.0 g/dL [facility] ALP [Catalytic activity/Vol] 133 U/L High 38 - 126 U/L [facility] ALT [Catalytic activity/Vol] 67 U/L High 0 - 34 U/L [facility] Anion gap [Moles/Vol] 10 mmol/L 3 - 13 mmol/L [facility] AST [Catalytic activity/Vol] 63 U/L High 15 - 46 U/L [facility] Bilirubin [Mass/Vol] 0.9 mg/dL 0.2 - 1 .3 mg/dL [facility] Calcium [Mass/Vol] 9.5 mg/dL 8.4 - 10. 4 mg/dL [facility] Chloride [Moles/Vol] 100 mmol/L 98 - 10 7 mmol/L [facility] CO2 [Moles/Vol] 22 mmol/L 22 - 30 mmol/L [facility] Creatinine [Mass/Vol] 1.20 mg/dL High 0.52 - 1.04 mg/dL [facility] GFR/1.73 sq M.predicted MDRD (S/P/Bld) [Vol rate/Area] 54.6 mL/min/{1.73_m2} Low - PINF [facility] Glucose [Mass/Vol] 236 mg/dL High 70 - 100 mg/dL [facility] Potassium [Moles/Vol] 4.6 mmol/L 3.5 - 5.1 mmol/L [facility] Protein [Mass/Vol] 8.0 g/dL 6.3 - 8.2 g/dL [facility] Sodium [Moles/Vol] 131 mmol/L Low 135 - 145 mmol/L [facility] Urea nitrogen [Mass/Vol] 24 mg/dL High 7 - 17 mg/dL [facility] IDNon 03-24-2024 IDN Patient free from injury. 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 Patient vitals stable, chronic conditions monitor and maintained. Normal [facility] IDN Normal [facility] Laboratory - Chemistry and C hemistry - challengeon 03-24-2024 Glucose [Mass/Vol] 221 mg/dL High 70 - 100 mg/dL [facility] Glucose [Mass/Vol] 294 mg/dL High 70 - 100 mg/dL [facility] Magnesium [Mass/Vol] 2.1 mg/dL 1.6 - 2 .3 mg/dL [facility] Glucose [Mass/Vol] 175 mg/dL High 70 - 100 mg/dL [facility] Glucose [Mass/Vol] 192 mg/dL High 70 - 100 mg/dL [facility] MAGNESIUMon 03-24-2024 Magnesium [Mass/Vol] 2.1 mg/dL Normal 1.6-2.3 [facility] Comment on above: Performed By: #### L AB17, [id number], [id number] ####Family Dinner Service Specialist: MESERET PAULA ([phone])[facility] ([address] Magnesium [Mass/Vol]on 03-24 Interpretation and review of laboratory results Normal [facility] No Panel Informationon 03-24 Interpretation and review of laboratory results Abnormal [facility] Interpretation and review of laboratory results Abnormal [facility] Interpretation and review of laboratory results Abnormal [facility] Interpretation and review of laboratory results Abnormal [facility] Interpretation and review of laboratory results Abnormal [facility] Nursing Noteon 03-24-2024 Nursing Note Patient awakens easily, resting in bed, but adamantly refuses am blood draw, despite encouragement. Safety measures maintained. Call light in reach. Normal [facility] PHOSPHORUSon 03-24-2024 Phosphate [Mass/Vol] 4.7 mg/dL High 2.5-4.5 [facility] Comment on above: Performed By: #### L AB17, [id number], [id number] ####Family Dinner Service Specialist: MESERET PAULA ([phone])[facility] ([address] Phosphate [Moles/Vol]on 02-25 Phosphate [Mass/Vol] 4.7 mg/dL High 2.5 - 4 .5 mg/dL [facility] Progress Noteon 03-24-2024 Progress Note Normal [facility] Progress Note Normal [facility] CARECOORDon 03-23-2024 CARECOORD Normal [facility] CBC W Auto Differential pane l (Bld)Ordered By: Teddy Esquivel on 03-23-2024 Erythrocyte distribution width (RBC) [Ratio] 13.1 % 11.5 - 15.0 % [facility] Hematocrit (Bld) [Volume fraction] 43.8 % 35.0 - 47.0 % [facility] Hemoglobin (Bld) [Mass/Vol] 14.3 g/dL 11.7 - 16.0 g/dL [facility] Interpretation and review of laboratory results Abnormal [facility] MCH (RBC) [Entitic mass] 28.0 pg 26.0 - 34.0 pg [facility] MCHC (RBC) [Mass/Vol] 32.6 % 30.5 - 36.0 % [facility] MCV (RBC) [Entitic vol] 85.9 fL 77.0 - 99.0 fL [facility] Platelet mean volume (Bld) [Entitic vol] 12.5 fL 9.0 - 12.7 fL [facility] Platelets (Bld) [#/Vol] 324 10*3/uL 140 - 440 10*3/uL [facility] RBC (Bld) [#/Vol] 5.10 10*6/uL 3.80 - 5.2 0 10*6/uL [facility] WBC (Bld) [#/Vol] 16.4 10*3/uL High 3.6 - 10.7 10*3/uL [facility] CBC WITH AUTO DIFFERENTIALon 03-23-2024 Erythrocyte distribution width (RBC) [Ratio] 13.1 % Normal 11.5-15.0 [facility] Comment on above: Performed By: #### L [id number], [id number] ####Family Dinner Service Specialist: MESERET PAULA ([phone])[address] Hematocrit (Bld) [Volume fraction] 43.8 % Normal 35.0-47.0 [facility] Comment on above: Performed By: #### Yumiko [id number], [id number] ####Family Dinner Service Specialist: MESERET PAULA ([phone])[address] Hemoglobin (Bld) [Mass/Vol] 14.3 g/dL Normal 11.7-16.0 [facility] Comment on above: Performed By: #### Yumiko [id number], [id number] ####Family Dinner Service Specialist: MESREET PAULA ([phone])[address] MCH (RBC) [Entitic mass] 28.0 pg Normal 26.0-34.0 [facility] Comment on above: Performed By: #### L [id number], [id number] ####Family Dinner Service Specialist: MESERET PAULA ([phone])[address] MCHC 32.6 % Normal 30.5-36.0 [facility] Comment on above: Performed By: #### L [id number], [id number] ####Family Dinner Service Specialist: MESERET PAULA ([phone])[address] MCV (RBC) [Entitic vol] 85.9 fL Normal 77.0-99.0 [facility] Comment on above: Performed By: #### L [id number], [id number] ####Family Dinner Service Specialist: MESERET PAULA ([phone])[facility])[address] [place] [address] Platelet mean volume (Bld) [Entitic vol] 12.5 fL Normal 9.0-12.7 [facility] Comment on above: Performed By: #### L [id number], [id number] ####Family Dinner Service Specialist: MESERET PAULA ([phone])[facility] ([facility])[address] [place] [address] Platelets (Bld) [#/Vol] 324 10*3/uL Normal 140-440 [facility] Comment on above: Performed By: #### L [id number], [id number] ####Family Dinner Service Specialist: MESERET PAULA ([phone])[facility] ([facility])[address] [place] [address] RBC (Bld) [#/Vol] 5.10 10*6/uL Normal 3.80-5.20 [facility] Comment on above: Performed By: #### L [id number], [id number] ####Family Dinner Service Specialist: MESERET PAULA ([phone])[facility] ([facility])[address] [place] [address] WBC (Bld) [#/Vol] 16.4 10*3/uL High 3.6-10.7 [facility] Comment on above: Performed By: #### L [id number], [id number] ####Family Dinner Service Specialist: MESERET PAULA ([phone])[facility] ([facility])[address] [place] [address] COMPREHENSIVE METABOLIC PANE [place] 03-23-2024 Albumin [Mass/Vol] 4.1 g/dL Normal 3.5-5.0 [facility] Comment on above: Performed By: #### L [id number], LAB17, [id number] ####Family Dinner Service Specialist: MESERET PAULA ([phone])[facility])[address] [place] [address] ALP [Catalytic activity/Vol] 136 U/L High 38-126 [facility] Comment on above: Performed By: #### L AB103, LAB17, [id number] ####Family Dinner Service Specialist: MESERET PAULA ([phone])[facility])[address] [place] [address] ALT [Catalytic activity/Vol] 52 U/L High 0-34 [facility] Comment on above: Performed By: #### Yumiko ABSteven, LAB17, [id number] ####Family Dinner Service Specialist: MESERET PAULA ([phone])[facility] ([facility])[address] [place] [address] Anion gap [Moles/Vol] 9 mmol/L Normal 3-13 [facility] Comment on above: Performed By: #### Yumiko RAPHAEL, LAB17, [id number] ####Family Dinner Service Specialist: MESERET PAULA ([phone])[facility])[address] [place] [address] AST [Catalytic activity/Vol] 47 U/L High 15-46 [facility] Comment on above: Performed By: #### Yumiko ABSteven, LAB17, [id number] ####Family Dinner Service Specialist: MESERET PAULA ([phone])[facility] ([facility])[address] [place] [address] Bilirubin [Mass/Vol] 0.8 mg/dL Normal 0.2-1.3 [facility] Comment on above: Performed By: #### Yumiko RAPHAEL, LAB17, [id number] ####Family Dinner Service Specialist: MESERET PAULA ([phone])[facility] ([facility])[address] [place] [address] Calcium [Mass/Vol] 9.7 mg/dL Normal 8.4-10.4 [facility] Comment on above: Performed By: #### Yumiko ABSteven, LAB17, [id number] ####Family Dinner Service Specialist: MESERET PAULA ([phone])[facility])[address] [place] [address] Chloride [Moles/Vol] 103 mmol/L Normal 98-107 [facility] Comment on above: Performed By: #### L AB103, LAB17, [id number] ####Family Dinner Service Specialist: MESERET PAULA ([phone])[facility] [place] [address] [place] CO2 [Moles/Vol] 21 mmol/L Low 22-30 [facility] Comment on above: Performed By: #### Yumiko RAPHAEL, LAB17, [id number] ####Family Dinner Service Specialist: MESERET PAULA ([phone])[facility] [place] [address] Creatinine [Mass/Vol] 1.25 mg/dL High 0.52-1.04 [facility] Comment on above: Performed By: #### Yumiko RAPHAEL, LAB17, [id number] ####Family Dinner Service Specialist: MESERET PAULA ([phone])[facility] ([facility])[address] [place] [address] [place] GLOMERULAR FILTRATION RATE ML/MIN/1.73 SQ M.PREDICTED 52.0 mL/min/1.73m*2 Low >60.0 [facility] Comment on above: Result Comment: Calc ulation based on the Chronic Kidney Disease Epidemiology Collaboration (CKD-EPI) equation refit without adjustment for race Performed By: #### Yumiko RAPHAEL, LAB17, [id number] ####Family Dinner Service Specialist: MESERET PAULA ([phone])[facility] ([facility])[address] [place] [address] [place] Glucose [Mass/Vol] 183 mg/dL High 70-100 [facility] Comment on above: Performed By: #### Yumiko RAPHAEL, LAB17, [id number] ####Family Dinner Service Specialist: MESERET PAULA ([phone])[facility] [place] [address] [place] Potassium [Moles/Vol] 4.8 mmol/L Normal 3.5-5.1 [facility] Comment on above: Performed By: #### Yumiko RAPHAEL, LAB17, [id number] ####Family Dinner Service Specialist: MESERET PAULA ([phone])[facility] [place] [address] [place] Protein [Mass/Vol] 8.2 g/dL Normal 6.3-8.2 [facility] Comment on above: Performed By: #### L AB103, LAB17, [id number] ####Family Dinner Service Specialist: MESERET PAULA ([phone])[facility] [place] [address] Sodium [Moles/Vol] 134 mmol/L Low 135-145 [facility] Comment on above: Performed By: #### L AB103, LAB17, [id number] ####Family Dinner Service Specialist: MESERET PAULA ([phone])[facility] [place] [address] Urea nitrogen [Mass/Vol] 22 mg/dL High 7-17 [facility] Comment on above: Performed By: #### L AB103, LAB17, [id number] ####Family Dinner Service Specialist: MESERET PAULA ([phone])[facility] ([facility])[address] [place] [address] CREATININE, URINE, RANDOMon 03-23-2024 CREATININE, URINE 92.3 mg/dL Normal No Range [facility] Comment on above: Performed By: #### L [id number], [id number] ####Family Dinner Service Specialist: MESERET PAULA ([phone])[facility] ([facility])[address] [place] [address] Comprehensive metabolic 1998 panelon 03-23-2024 Albumin [Mass/Vol] 4.1 g/dL 3.5 - 5.0 g/dL [facility] ALP [Catalytic activity/Vol] 136 U/L High 38 - 126 U/L [facility] ALT [Catalytic activity/Vol] 52 U/L High 0 - 34 U/L [facility] Anion gap [Moles/Vol] 9 mmol/L 3 - 13 mmol/L [facility] AST [Catalytic activity/Vol] 47 U/L High 15 - 46 U/L [facility] Bilirubin [Mass/Vol] 0.8 mg/dL 0.2 - 1 .3 mg/dL [facility] Calcium [Mass/Vol] 9.7 mg/dL 8.4 - 10. 4 mg/dL [facility] Chloride [Moles/Vol] 103 mmol/L 98 - 10 7 mmol/L [facility] CO2 [Moles/Vol] 21 mmol/L Low 22 - 30 mmol/L [facility] Creatinine [Mass/Vol] 1.25 mg/dL High 0.52 - 1.04 mg/dL [facility] GFR/1.73 sq M.predicted MDRD (S/P/Bld) [Vol rate/Area] 52.0 mL/min/{1.73_m2} Low - PINF [facility] Glucose [Mass/Vol] 183 mg/dL High 70 - 100 mg/dL [facility] Interpretation and review of laboratory results Abnormal [facility] Potassium [Moles/Vol] 4.8 mmol/L 3.5 - 5.1 mmol/L [facility] Protein [Mass/Vol] 8.2 g/dL 6.3 - 8.2 g/dL [facility] Sodium [Moles/Vol] 134 mmol/L Low 135 - 145 mmol/L [facility] Urea nitrogen [Mass/Vol] 22 mg/dL High 7 - 17 mg/dL [facility] Creatinine (U) [Mass/Vol]on 03-23-2024 CREATININE, URINE 92.3 mg/dL No Range [facility]24 IDN Patient denies pain throughout shift. She remains free from injury, calls appropriately for standby assist to and from bathroom. Normal [facility] Laboratory - Chemistry and C hemistry - challengeon 03-23-2024 Glucose [Mass/Vol] 262 mg/dL High 70 - 100 mg/dL [facility] Glucose [Mass/Vol] 163 mg/dL High 70 - 100 mg/dL [facility] Sodium (24H U) [Mass/Vol] 92 mmol/L High 30 - 90 mmol/L [facility] Glucose [Mass/Vol] 322 mg/dL High 70 - 100 mg/dL [facility] Glucose [Mass/Vol] 182 mg/dL High 70 - 100 mg/dL [facility] Magnesium [Mass/Vol] 2.1 mg/dL 1.6 - 2 .3 mg/dL [facility] Laboratory - Hematology and Cell countson 03-23-2024 Basophils (Bld) [#/Vol] 0.3 10*3/uL High 0.0 - 0.2 10*3/uL [facility] Basophils/100 WBC (Bld) 2 % 0 - 2 % [facility] Eosinophils (Bld) [#/Vol] 0.2 10*3/uL 0.0 - 0.5 10*3/uL [facility] Eosinophils/100 WBC (Bld) 1 % 0 - 6 % [facility] Lymphocytes (Bld) [#/Vol] 5.2 10*3/uL High 1.0 - 4.3 10*3/uL [facility] Lymphocytes/100 WBC (Bld) 32 % 15 - 45 % [facility] Monocytes (Bld) [#/Vol] 1.3 10*3/uL High 0.0 - 0.9 10*3/uL [facility] Monocytes/100 WBC (Bld) 8 % 5 - 13 % [facility] Neutrophils (Bld) [#/Vol] 9.2 10*3/uL High 1.8 - 7.5 10*3/uL [facility] Neutrophils.hypersegmen fabio LM Ql (Bld) Present Abnormal (none) [facility] RBC morphology finding Nom (Bld) Normal [facility] Segmented neutrophils/100 WBC (Bld) 56 % 38 - 82 % [facility] Variant lymphocytes (Bld) [#/Vol] 0.2 10*3/uL High NINF - 0.0 10*3/uL [facility] Variant lymphocytes/100 WBC (Bld) 1 % High NINF - 0 % [facility] MAGNESIUMon 03-23-2024 Magnesium [Mass/Vol] 2.1 mg/dL Normal 1.6-2.3 [facility] Comment on above: Performed By: #### L AB103, LAB17, [id number] ####Family Dinner Service Specialist: MESERET PAULA ([phone])[facility] ([facility])[address] [place] [address] MANUAL DIFFERENTIAL (CELLAVI SUKH)on 03-23-2024 BAND NEUTROPHILS TOTAL PER COUNTED LEUKOCYTES BY MANUAL COUNT Normal [facility] Comment on above: Performed By: #### L [id number], [id number] ####Family Dinner Service Specialist: MESERET PAULA ([phone])[facility] ([facility])[address] [place] [address] BASOPHILS (10*3/UL) IN BLOOD-CELLAVISION 0.3 10*3/uL High 0.0-0.2 [facility] Comment on above: Performed By: #### L [id number], [id number] ####Family Dinner Service Specialist: MESERET PAULA ([phone])[facility] [place] [address] [place] BASOPHILS TOTAL PER COUNTED LEUKOCYTES BY MANUAL COUNT 2 Normal [facility] Comment on above: Performed By: #### L [id number], [id number] ####Family Dinner Service Specialist: MESERET PAULA ([phone])[facility] [place] [address] [place] BASOPHILS/100 LEUKOCYTES IN BLOOD-CELLAVISION 2 % Normal 0-2 [facility] Comment on above: Performed By: #### L [id number], [id number] ####Family Dinner Service Specialist: MESERET PAULA ([phone])[facility] [place] [address] [place] BLASTS TOTAL PER COUNTED LEUKOCYTES BY MANUAL COUNT Normal [facility] Comment on above: Performed By: #### L [id number], [id number] ####Family Dinner Service Specialist: MESERET PAULA ([phone])[facility] ([facility])[address] [place] [address] [place] EOSINOPHILS (10*3/UL) IN BLOOD-CELLAVISION 0.2 10*3/uL Normal 0.0-0.5 [facility] Comment on above: Performed By: #### L [id number], [id number] ####Family Dinner Service Specialist: MESERET PAULA ([phone])[facility] [place] [address] [place] EOSINOPHILS TOTAL PER COUNTED LEUKOCYTES BY MANUAL COUNT 1 Normal 0-1 [facility] Comment on above: Performed By: #### L [id number], [id number] ####Family Dinner Service Specialist: MESERET PAULA ([phone])[facility] [place] [address] [place] EOSINOPHILS/100 LEUKOCYTES IN BLOOD-CELLAVISION 1 % Normal 0-6 [facility] Comment on above: Performed By: #### L [id number], [id number] ####Family Dinner Service Specialist: MESERET PAULA ([phone])[facility] ([facility])[address] [place] [address] HYPERSEGMENTED NEUTROPHILS IN BLOOD BY LIGHT MICROSCOPY (PRESENT) Present Abnormal (none) [facility] Comment on above: Performed By: #### L [id number], [id number] ####Family Dinner Service Specialist: MESERET PAULA ([phone])[facility] ([facility])[address] [place] [address] LYMPHOCYTE VARIANT/100 LEUKOCYTES IN BLOOD- CELLAVISION 1 % High <=0 [facility] Comment on above: Performed By: #### L [id number], [id number] ####Family Dinner Service Specialist: MESERET PAULA ([phone])[facility] ([facility])[address] [place] [address] LYMPHOCYTES (10*3/UL) IN BLOOD-CELLAVISION 5.2 10*3/uL High 1.0-4.3 [facility] Comment on above: Performed By: #### L [id number], [id number] ####Family Dinner Service Specialist: MESERET PAULA ([phone])[facility] ([facility])[address] [place] [address] [place] LYMPHOCYTES TOTAL PER COUNTED LEUKOCYTES BY MANUAL COUNT 32 Normal [facility] Comment on above: Performed By: #### L [id number], [id number] ####Family Dinner Service Specialist: MESERET PAULA ([phone])[facility] ([facility])[address] [place] [address] [place] LYMPHOCYTES/100 LEUKOCYTES IN BLOOD-CELLAVISION 32 % Normal 15-45 [facility] Comment on above: Performed By: #### L [id number], [id number] ####Family Dinner Service Specialist: MESERET PAULA ([phone])[facility])[address] [place] [address] [place] METAMYELOCYTES TOTAL PER COUNTED LEUKOCYTES BY MANUAL COUNT Normal [facility] Comment on above: Performed By: #### L [id number], [id number] ####Family Dinner Service Specialist: MESERET PAULA ([phone])[facility] ([facility])[address] [place] [address] [place] MONOCYTES (10*3/UL) IN BLOOD-CELLAVISION 1.3 10*3/uL High 0.0-0.9 [facility] Comment on above: Performed By: #### L [id number], [id number] ####Family Dinner Service Specialist: MESERET PAULA ([phone])[facility] [place] [address] [place] MONOCYTES TOTAL PER COUNTED LEUKOCYTES BY MANUAL COUNT 8 Normal [facility] Comment on above: Performed By: #### L [id number], [id number] ####Family Dinner Service Specialist: MESERET PAULA ([phone])[facility] ([facility])[address] [place] [address] [place] MONOCYTES/100 LEUKOCYTES IN BLOOD-RAMIRO 8 % Normal 5-13 [facility] Comment on above: Performed By: #### L [id number], [id number] ####Family Dinner Service Specialist: MESERET PAULA ([phone])[facility] [place] [address] [place] MYELOCYTES COUNTED BY MANUAL COUNT Normal [facility] Comment on above: Performed By: #### L [id number], [id number] ####Family Dinner Service Specialist: MESERET PAULA ([phone])[facility] [place] [address] [place] NEUTROPHILS TOTAL PER COUNTED LEUKOCYTES BY MANUAL COUNT 56 Normal [facility] Comment on above: Performed By: #### L [id number], [id number] ####Family Dinner Service Specialist: MESERET PAULA ([phone])[facility] ([facility])[address] [place] [address] [place] PROMYELOCYTES TOTAL PER COUNTED LEUKOCYTES BY MANUAL COUNT [facility] Comment on above: Performed By: #### L [id number], [id number] ####Family Dinner Service Specialist: MESERET PAULA ([phone])[facility] [facility])[address] [place] [address] [place] RBC MORPHOLOGY IN BLOOD Normal Normal [facility] Comment on above: Performed By: #### L [id number], [id number] ####Family Dinner Service Specialist: MESERET PAULA ([phone])[facility])[address] [place] [address] SEGMENTED NEUTROPHILS (10*3/UL) IN BLOOD-CELLAVISION 9.2 10*3/uL High 1.8-7.5 [facility] Comment on above: Performed By: #### L [id number], [id number] ####Family Dinner Service Specialist: MESERET PAULA ([phone])[facility])[address] [place] [address] [place] SEGMENTED NEUTROPHILS/100 LEUKOCYTES-CE 56 % Normal 38-82 [facility] Comment on above: Performed By: #### L [id number], [id number] ####Family Dinner Service Specialist: MESERET PAULA ([phone])[facility])[address] [place] [address] UNCLASSIFIED CELLS TOTAL PER COUNTED LEUKOCYTES BY MANUAL COUNT Normal [facility] Comment on above: Performed By: #### L [id number], [id number] ####Family Dinner Service Specialist: MESERET PAULA ([phone])[facility])[address] [place] [address] VARIANT LYMPHOCYTES (10*3/UL) IN BLOOD-CELLAVISION 0.2 10*3/uL High <=0.0 [facility] Comment on above: Performed By: #### L [id number], [id number] ####Family Dinner Service Specialist: MESERET PAULA ([phone])[facility])[address] [place] [address] [place] VARIANT LYMPHOCYTES TOTAL PER COUNTED LEUKOCYTES BY MANUAL COUNT 1 Normal [facility] Comment on above: Performed By: #### L [id number], [id number] ####Family Dinner Service Specialist: MESERET PAULA ([phone])[facility])[address] [place] [address] No Panel Informationon 03-23 Interpretation and review of laboratory results Abnormal [facility] Interpretation and review of laboratory results Abnormal [facility] Interpretation and review of laboratory results Abnormal [facility] Interpretation and review of laboratory results Abnormal [facility] Interpretation and review of laboratory results Abnormal [facility] Atypical Lymphocytes Manual 1 [facility] Basophils Manual 2 [facility] Eosinophils Manual 1 0 - 1 [facility] Interpretation and review of laboratory results Abnormal [facility] Lymphocytes Manual 32 [facility] Monocytes Manual 8 [facility] Neutrophils Manual 56 [facility] Interpretation and review of laboratory results Normal [facility] PHOSPHORUSon 03-23-2024 Phosphate [Mass/Vol] 4.5 mg/dL Normal 2.5-4.5 [facility] Comment on above: Performed By: #### L [id number], LAB17, [id number] ####Family Dinner Service Specialist: MESERET PAULA ([phone])[facility])[address] [place] [address] Phosphate [Moles/Vol]on 02-24 Phosphate [Mass/Vol] 4.5 mg/dL 2.5 - 4 .5 mg/dL [facility] Progress Noteon 03-23-2024 Progress Note Normal [facility] Progress Note Normal [facility] SODIUM, URINE, RANDOMon 02-24 Sodium (U) [Moles/Vol] 92 mmol/L High 30-90 [facility] Comment on above: Performed By: #### L [id number], [id number] ####Family Dinner Service Specialist: MESERET PAULA ([phone])[facility])[address] [place] [address] [place] 03-22-2024 [place] Auth pending to [facility]. Spoke with [facility] liaison, do not anticipate hearing today but potentially over the weekend. Will task weekend staff to follow for potential discharge. Normal [facility] CBC W Auto Differential pane l (Bld)on 03-22-2024 Basophils (Bld) [#/Vol] 0.1 10*3/uL 0.0 - 0.2 10*3/uL [facility] Basophils/100 WBC (Bld) 0.4 % 0.0 - 2.0 % [facility] Eosinophils (Bld) [#/Vol] 0.2 10*3/uL 0.0 - 0.5 10*3/uL [facility] Eosinophils/100 WBC (Bld) 1.3 % 0.0 - 6.0 % [facility] Erythrocyte distribution width (RBC) [Ratio] 13.2 % 11.5 - 15.0 % [facility] Hematocrit (Bld) [Volume fraction] 43.8 % 35.0 - 47.0 % [facility] Hemoglobin (Bld) [Mass/Vol] 14.3 g/dL 11.7 - 16.0 g/dL [facility] Immature granulocytes (Bld) [#/Vol] 0.1 10*3/uL High NINF - 0.1 10*3/uL [facility] Immature granulocytes/100 WBC (Bld) 0.6 % 0.0 - 2.0 % [facility] Interpretation and review of laboratory results Abnormal [facility] Lymphocytes (Bld) [#/Vol] 3.6 10*3/uL 1.0 - 4.3 10*3/uL [facility] Lymphocytes/100 WBC (Bld) 25.1 % 15.0 - 45.0 % [facility] MCH (RBC) [Entitic mass] 28.0 pg 26.0 - 34.0 pg [facility] MCHC (RBC) [Mass/Vol] 32.6 % 30.5 - 36.0 % [facility] MCV (RBC) [Entitic vol] 85.7 fL 77.0 - 99.0 fL [facility] Monocytes (Bld) [#/Vol] 1.6 10*3/uL High 0.0 - 0.9 10*3/uL [facility] Monocytes/100 WBC (Bld) 11.2 % 5.0 - 13.0 % [facility] Neutrophils (Bld) [#/Vol] 8.8 10*3/uL High 1.8 - 7.5 10*3/uL [facility] Neutrophils/100 WBC (Bld) 61.4 % 38.0 - 82.0 % [facility] Nucleated RBC/100 WBC (Bld) [Ratio] 0.0 % [facility] Platelet mean volume (Bld) [Entitic vol] 12.7 fL 9.0 - 12.7 fL [facility] Platelets (Bld) [#/Vol] 286 10*3/uL 140 - 440 10*3/uL [facility] RBC (Bld) [#/Vol] 5.11 10*6/uL 3.80 - 5.2 0 10*6/uL [facility] WBC (Bld) [#/Vol] 14.3 10*3/uL High 3.6 - 10.7 10*3/uL [facility] CBC WITH AUTO DIFFERENTIALon 03-22-2024 Basophils (Bld) [#/Vol] 0.1 10*3/uL Normal 0.0-0.2 [facility] Comment on above: Performed By: #### L [id number] ####Family Dinner Service Specialist: MESERET PAULA ([phone])[facility])[address] [place] [address] Basophils/100 WBC (Bld) 0.4 % Normal 0.0-2.0 [facility] Comment on above: Performed By: #### L [id number] ####Family Dinner Service Specialist: MESERET PAULA ([phone])[facility])[address] [place] [address] Eosinophils (Bld) [#/Vol] 0.2 10*3/uL Normal 0.0-0.5 [facility] Comment on above: Performed By: #### L [id number] ####Family Dinner Service Specialist: MESERET PAULA ([phone])[facility])[address] [place] [address] Eosinophils/100 WBC (Bld) 1.3 % Normal 0.0-6.0 [facility] Comment on above: Performed By: #### L [id number] ####Family Dinner Service Specialist: MESERET PAULA ([phone])[facility])[address] [place] [address] Erythrocyte distribution width (RBC) [Ratio] 13.2 % Normal 11.5-15.0 [facility] Comment on above: Performed By: #### L [id number] ####Family Dinner Service Specialist: MESERET PAULA ([phone])[facility])[address] [place] [address] Hematocrit (Bld) [Volume fraction] 43.8 % Normal 35.0-47.0 [facility] Comment on above: Performed By: #### L [id number] ####Family Dinner Service Specialist: MESERET PAULA ([phone])[facility])[address] [place] [address] Hemoglobin (Bld) [Mass/Vol] 14.3 g/dL Normal 11.7-16.0 [facility] Comment on above: Performed By: #### L [id number] ####Family Dinner Service Specialist: MESERET PAULA ([phone])[facility])[address] [place] [address] IMMATURE GRANS % 0.6 % Normal 0.0-2.0 [facility] Comment on above: Performed By: #### L [id number] ####Family Dinner Service Specialist: MESERET PAULA ([phone])[facility])[address] [place] [address] IMMATURE GRANS ABSOLUTE 0.1 10*3/uL High <0.1 [facility] Comment on above: Performed By: #### L [id number] ####Family Dinner Service Specialist: MESERET PAULA ([phone])[facility])[address] [place] [address] Lymphocytes (Bld) [#/Vol] 3.6 10*3/uL Normal 1.0-4.3 [facility] Comment on above: Performed By: #### L [id number] ####Family Dinner Service Specialist: MESERET PAULA ([phone])[facility])[address] [place] [address] Lymphocytes/100 WBC (Bld) 25.1 % Normal 15.0-45.0 [facility] Comment on above: Performed By: #### L [id number] ####Family Dinner Service Specialist: MESERET PAULA ([phone])[facility])[address] [place] [address] MCH (RBC) [Entitic mass] 28.0 pg Normal 26.0-34.0 [facility] Comment on above: Performed By: #### L [id number] ####Family Dinner Service Specialist: MESERET PAULA ([phone])[facility])[address] [place] [address] MCHC 32.6 % Normal 30.5-36.0 [facility] Comment on above: Performed By: #### L [id number] ####Family Dinner Service Specialist: MESERET PAULA ([phone])[facility])[address] [place] [address] MCV (RBC) [Entitic vol] 85.7 fL Normal 77.0-99.0 [facility] Comment on above: Performed By: #### L [id number] ####Family Dinner Service Specialist: MESERET PAULA ([phone])[facility])[address] [place] [address] Monocytes (Bld) [#/Vol] 1.6 10*3/uL High 0.0-0.9 [facility] Comment on above: Performed By: #### L [id number] ####Family Dinner Service Specialist: MESERET PAULA ([phone])[facility])[address] [place] [address] Monocytes/100 WBC (Bld) 11.2 % Normal 5.0-13.0 [facility] Comment on above: Performed By: #### L [id number] ####Family Dinner Service Specialist: MESERET PAULA ([phone])[facility])[address] [place] [address] NEUTROPHILS ABSOLUTE 8.8 10*3/uL High 1.8-7.5 [facility] Comment on above: Performed By: #### L [id number] ####Family Dinner Service Specialist: MESERET PAULA ([phone])[facility])[address] [place] [address] Neutrophils/100 WBC (Bld) 61.4 % Normal 38.0-82.0 [facility] Comment on above: Performed By: #### L [id number] ####Family Dinner Service Specialist: MESERET PAULA ([phone])[facility])[address] [place] [address] NRBC 0.0 /100 WBCs Normal 0.0-2.0 [facility] Comment on above: Performed By: #### L [id number] ####Family Dinner Service Specialist: MESERET PAULA ([phone])[facility])[address] [place] [address] Platelet mean volume (Bld) [Entitic vol] 12.7 fL Normal 9.0-12.7 [facility] Comment on above: Performed By: #### L [id number] ####Family Dinner Service Specialist: MESERET PAULA ([phone])[facility])[address] [place] [address] Platelets (Bld) [#/Vol] 286 10*3/uL Normal 140-440 [facility] Comment on above: Performed By: #### L [id number] ####Family Dinner Service Specialist: MESERET PAULA ([phone])[facility])[address] [place] [address] RBC (Bld) [#/Vol] 5.11 10*6/uL Normal 3.80-5.20 [facility] Comment on above: Performed By: #### L [id number] ####Family Dinner Service Specialist: MESERET PAULA ([phone])[facility])[address] [place] [address] WBC (Bld) [#/Vol] 14.3 10*3/uL High 3.6-10.7 [facility] Comment on above: Performed By: #### L [id number] ####Family Dinner Service Specialist: MESERET PAULA ([phone])[facility])[address] [place] [address] COMPREHENSIVE METABOLIC PANE [place] 03-22-2024 Albumin [Mass/Vol] 3.9 g/dL Normal 3.5-5.0 [facility] Comment on above: Performed By: #### [place]umi[place] AB103, LAB17, [id number] ####Family Dinner Service Specialist: MESERET PAULA ([phone])[facility])[address] [place] [address] ALP [Catalytic activity/Vol] 122 U/L Normal 38-126 [facility] Comment on above: Performed By: #### Yumiko ABSteven, LAB17, [id number] ####Family Dinner Service Specialist: MESERET PAULA ([phone])[facility])[address] [place] [address] ALT [Catalytic activity/Vol] 48 U/L High 0-34 [facility] Comment on above: Performed By: #### Yumiko RAPHAEL, LAB17, [id number] ####Family Dinner Service Specialist: MESERET PAULA ([phone])[facility])[address] [place] [address] Anion gap [Moles/Vol] 10 mmol/L Normal 3-13 [facility] Comment on above: Performed By: #### Yumiko RAPHAEL, LAB17, [id number] ####Family Dinner Service Specialist: MESERET PAULA ([phone])[facility])[address] [place] [address] AST [Catalytic activity/Vol] 44 U/L Normal 15-46 [facility] Comment on above: Performed By: #### Yumiko RAPHAEL, LAB17, [id number] ####Family Dinner Service Specialist: MESERET PAULA ([phone])[facility])[address] [place] [address] Bilirubin [Mass/Vol] 0.7 mg/dL Normal 0.2-1.3 [facility] Comment on above: Performed By: #### Yumiko RAPHAEL, LAB17, [id number] ####Family Dinner Service Specialist: MESERET PAULA ([phone])[facility])[address] [place] [address] Calcium [Mass/Vol] 9.4 mg/dL Normal 8.4-10.4 [facility] Comment on above: Performed By: #### Yumiko ABSteven, LAB17, [id number] ####Family Dinner Service Specialist: MESERET PAULA ([phone])[facility] [place] [address] [place] Chloride [Moles/Vol] 105 mmol/L Normal 98-107 [facility] Comment on above: Performed By: #### Yumiko RAPHAEL, LAB17, [id number] ####Family Dinner Service Specialist: MESERET PAULA ([phone])[facility] [place] [address] [place] CO2 [Moles/Vol] 21 mmol/L Low 22-30 [facility] Comment on above: Performed By: #### Yumiko RAPHAEL, LAB17, [id number] ####Family Dinner Service Specialist: MESERET PAULA ([phone])[facility])[address] [place] [address] Creatinine [Mass/Vol] 1.11 mg/dL High 0.52-1.04 [facility] Comment on above: Performed By: #### Yumiko RAPHAEL, LAB17, [id number] ####Family Dinner Service Specialist: MESERET PAULA ([phone])[facility] [place] [address] [place] GLOMERULAR FILTRATION RATE ML/MIN/1.73 SQ M.PREDICTED 59.9 mL/min/1.73m*2 Low >60.0 [facility] Comment on above: Result Comment: Calc ulation based on the Chronic Kidney Disease Epidemiology Collaboration (CKD-EPI) equation refit without adjustment for race Performed By: #### Yumiko RAPHAEL, LAB17, [id number] ####Family Dinner Service Specialist: MESERET PAULA ([phone])[facility] [place] [address] [place] Glucose [Mass/Vol] 187 mg/dL High 70-100 [facility] Comment on above: Performed By: #### Yumiko RAPHAEL, LAB17, [id number] ####Family Dinner Service Specialist: MESERET PAULA ([phone])[facility] [place] [address] [place] Potassium [Moles/Vol] 4.6 mmol/L Normal 3.5-5.1 [facility] Comment on above: Performed By: #### L AB103, LAB17, [id number] ####Family Dinner Service Specialist: MESERET PAULA ([phone])[facility])[address] [place] [address] Protein [Mass/Vol] 7.6 g/dL Normal 6.3-8.2 [facility] Comment on above: Performed By: #### Yumiko AB103, LAB17, [id number] ####Family Dinner Service Specialist: MESERET PAULA ([phone])[facility])[address] [place] [address] Sodium [Moles/Vol] 135 mmol/L Normal 135-145 [facility] Comment on above: Performed By: #### Yumiko LAWRENCE103, LAB17, [id number] ####Family Dinner Service Specialist: MESERET PAULA ([phone])[facility])[address] [place] [address] Urea nitrogen [Mass/Vol] 24 mg/dL High 7-17 [facility] Comment on above: Performed By: #### Yumiko LAWRENCE103, LAB17, [id number] ####Family Dinner Service Specialist: MESERET PAULA ([phone])[facility])[address] [place] [address] Comprehensive metabolic 1998 panelon 03-22-2024 Albumin [Mass/Vol] 3.9 g/dL 3.5 - 5.0 g/dL [facility] ALP [Catalytic activity/Vol] 122 U/L 38 - 126 U/L [facility] ALT [Catalytic activity/Vol] 48 U/L High 0 - 34 U/L [facility] Anion gap [Moles/Vol] 10 mmol/L 3 - 13 mmol/L [facility] AST [Catalytic activity/Vol] 44 U/L 15 - 46 U/L [facility] Bilirubin [Mass/Vol] 0.7 mg/dL 0.2 - 1 .3 mg/dL [facility] Calcium [Mass/Vol] 9.4 mg/dL 8.4 - 10. 4 mg/dL [facility] Chloride [Moles/Vol] 105 mmol/L 98 - 10 7 mmol/L [facility] CO2 [Moles/Vol] 21 mmol/L Low 22 - 30 mmol/L [facility] Creatinine [Mass/Vol] 1.11 mg/dL High 0.52 - 1.04 mg/dL [facility] GFR/1.73 sq M.predicted MDRD (S/P/Bld) [Vol rate/Area] 59.9 mL/min/{1.73_m2} Low - PINF [facility] Glucose [Mass/Vol] 187 mg/dL High 70 - 100 mg/dL [facility] Potassium [Moles/Vol] 4.6 mmol/L 3.5 - 5.1 mmol/L [facility] Protein [Mass/Vol] 7.6 g/dL 6.3 - 8.2 g/dL [facility] Sodium [Moles/Vol] 135 mmol/L 135 - 145 mmol/L [facility] Urea nitrogen [Mass/Vol] 24 mg/dL High 7 - 17 mg/dL [facility] Laboratory - Chemistry and C hemistry - challengeon 03-22-2024 Glucose [Mass/Vol] 199 mg/dL High 70 - 100 mg/dL [facility] Glucose [Mass/Vol] 202 mg/dL High 70 - 100 mg/dL [facility] Glucose [Mass/Vol] 392 mg/dL High 70 - 100 mg/dL [facility] Glucose [Mass/Vol] 204 mg/dL High 70 - 100 mg/dL [facility] Magnesium [Mass/Vol] 2.0 mg/dL 1.6 - 2 .3 mg/dL [facility] MAGNESIUMon 03-22-2024 Magnesium [Mass/Vol] 2.0 mg/dL Normal 1.6-2.3 [facility] Comment on above: Performed By: #### L AB103, LAB17, [id number] ####Family Dinner Service Specialist: MESERET PAULA ([phone])[facility] ([address] Magnesium [Mass/Vol]on 03-22 Interpretation and review of laboratory results Normal [facility] No Panel Informationon 03-22 Interpretation and review of laboratory results Abnormal [facility] Interpretation and review of laboratory results Abnormal [facility] Interpretation and review of laboratory results Abnormal [facility] Interpretation and review of laboratory results Abnormal [facility] Interpretation and review of laboratory results Abnormal [facility] Nursing Noteon 03-22-2024 Nursing Note Patient arrived to [facility] [address] [facility]. Vitals obtained, heart monitor on patient. Call light within reach, bed alarm on. Normal [facility] PHOSPHORUSon 03-22-2024 Phosphate [Mass/Vol] 5.1 mg/dL High 2.5-4.5 [facility] Comment on above: Performed By: #### L AB103, LAB17, [id number] ####Family Dinner Service Specialist: MESERET PAULA ([phone])[facility] ([address] Phosphate [Moles/Vol]on 02-24 Phosphate [Mass/Vol] 5.1 mg/dL High 2.5 - 4 .5 mg/dL [facility] Progress Noteon 03-22-2024 Progress Note [facility] Progress Note Normal [facility] Progress Note Normal [facility] Progress [facility] Normal [facility] Progress Note Normal [facility] [place]ORDon 03-21-2024 [place] Normal [facility] CBC W Auto Differential pane l (Bld)on 03-21-2024 Basophils (Bld) [#/Vol] 0.1 10*3/uL 0.0 - 0.2 10*3/uL [facility] Basophils/100 WBC (Bld) 0.5 % 0.0 - 2.0 % [facility] Eosinophils (Bld) [#/Vol] 0.2 10*3/uL 0.0 - 0.5 10*3/uL [facility] Eosinophils/100 WBC (Bld) 1.2 % 0.0 - 6.0 % [facility] Erythrocyte distribution width (RBC) [Ratio] 13.3 % 11.5 - 15.0 % [facility] Hematocrit (Bld) [Volume fraction] 43.5 % 35.0 - 47.0 % [facility] Hemoglobin (Bld) [Mass/Vol] 14.5 g/dL 11.7 - 16.0 g/dL [facility] Immature granulocytes (Bld) [#/Vol] 0.1 10*3/uL High NINF - 0.1 10*3/uL [facility] Immature granulocytes/100 WBC (Bld) 0.6 % 0.0 - 2.0 % [facility] Interpretation and review of laboratory results Abnormal [facility] Lymphocytes (Bld) [#/Vol] 3.3 10*3/uL 1.0 - 4.3 10*3/uL [facility] Lymphocytes/100 WBC (Bld) 23.4 % 15.0 - 45.0 % [facility] MCH (RBC) [Entitic mass] 28.8 pg 26.0 - 34.0 pg [facility] MCHC (RBC) [Mass/Vol] 33.3 % 30.5 - 36.0 % [facility] MCV (RBC) [Entitic vol] 86.3 fL 77.0 - 99.0 fL [facility] Monocytes (Bld) [#/Vol] 1.4 10*3/uL High 0.0 - 0.9 10*3/uL [facility] Monocytes/100 WBC (Bld) 9.9 % 5.0 - 13.0 % [facility] Neutrophils (Bld) [#/Vol] 9.2 10*3/uL High 1.8 - 7.5 10*3/uL [facility] Neutrophils/100 WBC (Bld) 64.4 % 38.0 - 82.0 % [facility] Nucleated RBC/100 WBC (Bld) [Ratio] 0.0 % [facility] Platelet mean volume (Bld) [Entitic vol] 12.9 fL High 9.0 - 12.7 fL [facility] Platelets (Bld) [#/Vol] 257 10*3/uL 140 - 440 10*3/uL [facility] RBC (Bld) [#/Vol] 5.04 10*6/uL 3.80 - 5.2 0 10*6/uL [facility] WBC (Bld) [#/Vol] 14.2 10*3/uL High 3.6 - 10.7 10*3/uL [facility] CBC WITH AUTO DIFFERENTIALon 03-21-2024 Basophils (Bld) [#/Vol] 0.1 10*3/uL Normal 0.0-0.2 [facility] Comment on above: Performed By: #### L [id number] ####Family Dinner Service Specialist: MESERET [phone])[facility] ([facility])[address] [place] [address] Basophils/100 WBC (Bld) 0.5 % Normal 0.0-2.0 [facility] Comment on above: Performed By: #### L [id number] ####Family Dinner Service Specialist: MESERET PAULA ([phone])[facility])[address] [place] [address] Eosinophils (Bld) [#/Vol] 0.2 10*3/uL Normal 0.0-0.5 [facility] Comment on above: Performed By: #### L [id number] ####Family Dinner Service Specialist: MESERET PAULA ([phone])[facility])[address] [place] [address] Eosinophils/100 WBC (Bld) 1.2 % Normal 0.0-6.0 [facility] Comment on above: Performed By: #### L [id number] ####Family Dinner Service Specialist: MESERET PAULA ([phone])[facility] ([facility])[address] [place] [address] Erythrocyte distribution width (RBC) [Ratio] 13.3 % Normal 11.5-15.0 [facility] Comment on above: Performed By: #### L [id number] ####Family Dinner Service Specialist: MESERET PAULA ([phone])[address] Hematocrit (Bld) [Volume fraction] 43.5 % Normal 35.0-47.0 [facility] Comment on above: Performed By: #### L [id number] ####Family Dinner Service Specialist: EMSERET PAULA ([phone])[facility])[address] [place] [address] Hemoglobin (Bld) [Mass/Vol] 14.5 g/dL Normal 11.7-16.0 [facility] Comment on above: Performed By: #### L [id number] ####Family Dinner Service Specialist: MESERET PAULA ([phone])[facility])[address] [place] [address] IMMATURE GRANS % 0.6 % Normal 0.0-2.0 [facility] Comment on above: Performed By: #### L [id number] ####Family Dinner Service Specialist: MESERET PAULA ([phone])[facility])[address] [place] [address] IMMATURE GRANS ABSOLUTE 0.1 10*3/uL High <0.1 [facility] Comment on above: Performed By: #### L [id number] ####Family Dinner Service Specialist: MESERET PAULA ([phone])[facility])[address] [place] [address] Lymphocytes (Bld) [#/Vol] 3.3 10*3/uL Normal 1.0-4.3 [facility] Comment on above: Performed By: #### L [id number] ####Family Dinner Service Specialist: MESERET PAULA ([phone])[facility])[address] [place] [address] Lymphocytes/100 WBC (Bld) 23.4 % Normal 15.0-45.0 [facility] Comment on above: Performed By: #### L [id number] ####Family Dinner Service Specialist: MESERET PAULA ([phone])[facility])[address] [place] [address] MCH (RBC) [Entitic mass] 28.8 pg Normal 26.0-34.0 [facility] Comment on above: Performed By: #### L [id number] ####Family Dinner Service Specialist: MESERET PAULA ([phone])[facility])[address] [place] [address] MCHC 33.3 % Normal 30.5-36.0 [facility] Comment on above: Performed By: #### L [id number] ####Family Dinner Service Specialist: MESERET PAULA ([phone])[facility])[address] [place] [address] MCV (RBC) [Entitic vol] 86.3 fL Normal 77.0-99.0 [facility] Comment on above: Performed By: #### L [id number] ####Family Dinner Service Specialist: MESERET PAULA ([phone])[facility] ([facility])[address] [place] [address] Monocytes (Bld) [#/Vol] 1.4 10*3/uL High 0.0-0.9 [facility] Comment on above: Performed By: #### L [id number] ####Family Dinner Service Specialist: MESERET PAULA ([phone])[facility] ([facility])[address] [place] [address] Monocytes/100 WBC (Bld) 9.9 % Normal 5.0-13.0 [facility] Comment on above: Performed By: #### L [id number] ####Family Dinner Service Specialist: MESERET PAULA ([phone])[facility])[address] [place] [address] NEUTROPHILS ABSOLUTE 9.2 10*3/uL High 1.8-7.5 [facility] Comment on above: Performed By: #### L [id number] ####Family Dinner Service Specialist: MESERET PAULA ([phone])[facility] ([facility])[address] [place] [address] Neutrophils/100 WBC (Bld) 64.4 % Normal 38.0-82.0 [facility] Comment on above: Performed By: #### L [id number] ####Family Dinner Service Specialist: MESERET PAULA ([phone])[facility])[address] [place] [address] NRBC 0.0 /100 WBCs Normal 0.0-2.0 [facility] Comment on above: Performed By: #### L [id number] ####Family Dinner Service Specialist: MESERET PAULA ([phone])[facility])[address] [place] [address] Platelet mean volume (Bld) [Entitic vol] 12.9 fL High 9.0-12.7 [facility] Comment on above: Performed By: #### L [id number] ####Family Dinner Service Specialist: MESERET [phone])[facility] ([facility])[address] [place] [address] Platelets (Bld) [#/Vol] 257 10*3/uL Normal 140-440 [facility] Comment on above: Performed By: #### L [id number] ####Family Dinner Service Specialist: MESERET PAULA ([phone])[facility] ([facility])[address] [place] [address] RBC (Bld) [#/Vol] 5.04 10*6/uL Normal 3.80-5.20 [facility] Comment on above: Performed By: #### L [id number] ####Family Dinner Service Specialist: MESERET PAULA ([phone])[facility] ([facility])[address] [place] [address] WBC (Bld) [#/Vol] 14.2 10*3/uL High 3.6-10.7 [facility] Comment on above: Performed By: #### L [id number] ####Family Dinner Service Specialist: MESERET PAULA ([phone])[facility] ([facility])[address] [place] [address] COMPREHENSIVE METABOLIC PANE [place] 03-21-2024 Albumin [Mass/Vol] 4.0 g/dL Normal 3.5-5.0 [facility] Comment on above: Performed By: #### L [id number], [id number], LAB17 ####Family Dinner Service Specialist: MESERET PAULA ([phone])[facility] ([facility])[address] [place] [address] ALP [Catalytic activity/Vol] 124 U/L Normal 38-126 [facility] Comment on above: Performed By: #### L [id number], [id number], LAB17 ####Family Dinner Service Specialist: MESERET PAULA ([phone])[facility])[address] [place] [address] ALT [Catalytic activity/Vol] 42 U/L High 0-34 [facility] Comment on above: Performed By: #### L [id number], [id number], LAB17 ####Family Dinner Service Specialist: MESERET PAULA ([phone])[facility] ([facility])[address] [place] [address] Anion gap [Moles/Vol] 11 mmol/L Normal 3-13 [facility] Comment on above: Performed By: #### L [id number], [id number], LAB17 ####Family Dinner Service Specialist: MESERET PAULA ([phone])[facility])[address] [place] [address] AST [Catalytic activity/Vol] 49 U/L High 15-46 [facility] Comment on above: Performed By: #### L [id number], [id number], LAB17 ####Family Dinner Service Specialist: MESERET PAULA ([phone])[facility] ([facility])[address] [place] [address] Bilirubin [Mass/Vol] 0.9 mg/dL Normal 0.2-1.3 [facility] Comment on above: Performed By: #### L [id number], [id number], LAB17 ####Family Dinner Service Specialist: MESERET PAULA ([phone])[facility] [place] [address] Calcium [Mass/Vol] 9.6 mg/dL Normal 8.4-10.4 [facility] Comment on above: Performed By: #### L [id number], [id number], LAB17 ####Family Dinner Service Specialist: MESERET PAULA ([phone])[facility] [place] [address] [place] Chloride [Moles/Vol] 104 mmol/L Normal 98-107 [facility] Comment on above: Performed By: #### L [id number], [id number], LAB17 ####Family Dinner Service Specialist: MESERET PAULA ([phone])[facility] [place] [address] [place] CO2 [Moles/Vol] 20 mmol/L Low 22-30 [facility] Comment on above: Performed By: #### L AB103, [id number], LAB17 ####Family Dinner Service Specialist: MESERET PAULA ([phone])[facility] ([facility])[address] [place] [address] Creatinine [Mass/Vol] 0.91 mg/dL Normal 0.52-1.04 [facility] Comment on above: Performed By: #### L AB103, [id number], LAB17 ####Family Dinner Service Specialist: MESERET PAULA ([phone])[facility])[address] [place] [address] GLOMERULAR FILTRATION RATE ML/MIN/1.73 SQ M.PREDICTED 76.1 mL/min/1.73m*2 Normal >60.0 [facility] Comment on above: Result Comment: Calc ulation based on the Chronic Kidney Disease Epidemiology Collaboration (CKD-EPI) equation refit without adjustment for raceORDER COMMENTS:Slightly Hemolyzed. Interpret K+, ALKP, AST with caution. Performed By: #### L AB103, [id number], LAB17 ####Family Dinner Service Specialist: MESERET PAULA ([phone])[facility])[address] [place] [address] Glucose [Mass/Vol] 189 mg/dL High 70-100 [facility] Comment on above: Performed By: #### L AB103, [id number], LAB17 ####Family Dinner Service Specialist: MESERET PAULA ([phone])[facility])[address] [place] [address] Potassium [Moles/Vol] 4.7 mmol/L Normal 3.5-5.1 [facility] Comment on above: Performed By: #### L AB103, [id number], LAB17 ####Family Dinner Service Specialist: MESERET PAULA ([phone])[facility])[address] [place] [address] [place] Protein [Mass/Vol] 8.3 g/dL High 6.3-8.2 [facility] Comment on above: Performed By: #### L AB103, [id number], LAB17 ####Family Dinner Service Specialist: MESERET PAULA ([phone])[facility])[address] [place] [address] Sodium [Moles/Vol] 135 mmol/L Normal 135-145 [facility] Comment on above: Performed By: #### L AB103, [id number], LAB17 ####Family Dinner Service Specialist: MESERET PAULA ([phone])[facility] ([facility])[address] [place] [address] Urea nitrogen [Mass/Vol] 15 mg/dL Normal 7-17 [facility] Comment on above: Performed By: #### L AB103, [id number], LAB17 ####Family Dinner Service Specialist: MESERET PAULA ([phone])[facility] [place] [address] Comprehensive metabolic 1998 panelon 03-21-2024 Albumin [Mass/Vol] 4.0 g/dL 3.5 - 5.0 g/dL [facility] ALP [Catalytic activity/Vol] 124 U/L 38 - 126 U/L [facility] ALT [Catalytic activity/Vol] 42 U/L High 0 - 34 U/L [facility] Anion gap [Moles/Vol] 11 mmol/L 3 - 13 mmol/L [facility] AST [Catalytic activity/Vol] 49 U/L High 15 - 46 U/L [facility] Bilirubin [Mass/Vol] 0.9 mg/dL 0.2 - 1 .3 mg/dL [facility] Calcium [Mass/Vol] 9.6 mg/dL 8.4 - 10. 4 mg/dL [facility] Chloride [Moles/Vol] 104 mmol/L 98 - 10 7 mmol/L [facility] CO2 [Moles/Vol] 20 mmol/L Low 22 - 30 mmol/L [facility] Creatinine [Mass/Vol] 0.91 mg/dL 0.52 - 1.04 mg/dL [facility] GFR/1.73 sq M.predicted MDRD (S/P/Bld) [Vol rate/Area] 76.1 mL/min/{1.73_m2} - PINF [facility] Glucose [Mass/Vol] 189 mg/dL High 70 - 100 mg/dL [facility] Potassium [Moles/Vol] 4.7 mmol/L 3.5 - 5.1 mmol/L [facility] Protein [Mass/Vol] 8.3 g/dL High 6.3 - 8.2 g/dL [facility] Sodium [Moles/Vol] 135 mmol/L 135 - 145 mmol/L [facility] Urea nitrogen [Mass/Vol] 15 mg/dL 7 - 17 mg/dL [facility] Consulton 03-21-2024 Consult Normal [facility] Consult Normal [facility] IDNon 03-21-2024 IDN Normal [facility] IDN Normal [facility] IDN Normal [facility] Laboratory - Chemistry and C hemistry - challengeon 03-21-2024 Glucose [Mass/Vol] 241 mg/dL High 70 - 100 mg/dL [facility] Glucose [Mass/Vol] 262 mg/dL High 70 - 100 mg/dL [facility] Glucose [Mass/Vol] 177 mg/dL High 70 - 100 mg/dL [facility] Glucose [Mass/Vol] 183 mg/dL High 70 - 100 mg/dL [facility] Magnesium [Mass/Vol] 2.0 mg/dL 1.6 - 2 .3 mg/dL [facility] MAGNESIUMon 03-21-2024 Magnesium [Mass/Vol] 2.0 mg/dL Normal 1.6-2.3 [facility] Comment on above: Result Comment: MARY Minor COMMENTS:Slightly Hemolyzed. Interpret Magnesium with caution. Performed By: #### L AB103, [id number], LAB17 ####Family Dinner Service Specialist: MESERET PAULA ([phone])[address] Magnesium [Mass/Vol]on 03-21 Interpretation and review of laboratory results Normal [facility] No Panel Informationon 03-21 Interpretation and review of laboratory results Abnormal [facility] Interpretation and review of laboratory results Abnormal [facility] Interpretation and review of laboratory results Abnormal [facility] Interpretation and review of laboratory results Abnormal [facility] Interpretation and review of laboratory results Abnormal [facility] PHOSPHORUSon 03-21-2024 Phosphate [Mass/Vol] 5.0 mg/dL High 2.5-4.5 [facility] Comment on above: Result Comment: ORDE R COMMENTS:Slightly Hemolyzed. Interpret Phosphorus with caution. Performed By: #### L AB103, [id number], LAB17 ####Family Dinner Service Specialist: MESERET PAULA ([phone])[facility] [place] [address] Phosphate [Moles/Vol]on 02-24 Phosphate [Mass/Vol] 5.0 mg/dL High 2.5 - 4 .5 mg/dL [facility] Progress Noteon 03-21-2024 Progress Note Normal [facility] Progress Note Normal [facility] Progress Note Normal [facility] Progress Note Normal [facility] CBC W Auto Differential pane l (Bld)on 03-20-2024 Basophils (Bld) [#/Vol] 0.0 10*3/uL 0.0 - 0.2 10*3/uL [facility] Basophils/100 WBC (Bld) 0.3 % 0.0 - 2.0 % [facility] Eosinophils (Bld) [#/Vol] 0.2 10*3/uL 0.0 - 0.5 10*3/uL [facility] Eosinophils/100 WBC (Bld) 1.5 % 0.0 - 6.0 % [facility] Erythrocyte distribution width (RBC) [Ratio] 13.4 % 11.5 - 15.0 % [facility] Hematocrit (Bld) [Volume fraction] 41.0 % 35.0 - 47.0 % [facility] Hemoglobin (Bld) [Mass/Vol] 13.6 g/dL 11.7 - 16.0 g/dL [facility] Immature granulocytes (Bld) [#/Vol] 0.0 10*3/uL NINF - 0.1 10*3/uL [facility] Immature granulocytes/100 WBC (Bld) 0.3 % 0.0 - 2.0 % [facility] Interpretation and review of laboratory results Abnormal [facility] Lymphocytes (Bld) [#/Vol] 2.8 10*3/uL 1.0 - 4.3 10*3/uL [facility] Lymphocytes/100 WBC (Bld) 22.4 % 15.0 - 45.0 % [facility] MCH (RBC) [Entitic mass] 28.6 pg 26.0 - 34.0 pg [facility] MCHC (RBC) [Mass/Vol] 33.2 % 30.5 - 36.0 % [facility] MCV (RBC) [Entitic vol] 86.1 fL 77.0 - 99.0 fL [facility] Monocytes (Bld) [#/Vol] 1.3 10*3/uL High 0.0 - 0.9 10*3/uL [facility] Monocytes/100 WBC (Bld) 10.2 % 5.0 - 13.0 % [facility] Neutrophils (Bld) [#/Vol] 8.0 10*3/uL High 1.8 - 7.5 10*3/uL [facility] Neutrophils/100 WBC (Bld) 65.3 % 38.0 - 82.0 % [facility] Nucleated RBC/100 WBC (Bld) [Ratio] 0.0 % [facility] Platelet mean volume (Bld) [Entitic vol] 13.0 fL High 9.0 - 12.7 fL [facility] Platelets (Bld) [#/Vol] 207 10*3/uL 140 - 440 10*3/uL [facility] RBC (Bld) [#/Vol] 4.76 10*6/uL 3.80 - 5.2 0 10*6/uL [facility] WBC (Bld) [#/Vol] 12.3 10*3/uL High 3.6 - 10.7 10*3/uL [facility] CBC WITH AUTO DIFFERENTIALon 03-20-2024 Basophils (Bld) [#/Vol] 0.0 10*3/uL Normal 0.0-0.2 [facility] Comment on above: Performed By: #### L [id number] ####Family Dinner Service Specialist: MESERET PAULA ([phone])[address] Basophils/100 WBC (Bld) 0.3 % Normal 0.0-2.0 [facility] Comment on above: Performed By: #### L [id number] ####Family Dinner Service Specialist: MESERET PAULA ([phone])[facility])[address] [place] [address] Eosinophils (Bld) [#/Vol] 0.2 10*3/uL Normal 0.0-0.5 [facility] Comment on above: Performed By: #### L [id number] ####Family Dinner Service Specialist: MESERET PAULA ([phone])[facility])[address] [place] [address] Eosinophils/100 WBC (Bld) 1.5 % Normal 0.0-6.0 [facility] Comment on above: Performed By: #### L [id number] ####Family Dinner Service Specialist: MESERET PAULA ([phone])[facility])[address] [place] [address] Erythrocyte distribution width (RBC) [Ratio] 13.4 % Normal 11.5-15.0 [facility] Comment on above: Performed By: #### L [id number] ####Family Dinner Service Specialist: MESERET PAULA ([phone])[address] Hematocrit (Bld) [Volume fraction] 41.0 % Normal 35.0-47.0 [facility] Comment on above: Performed By: #### L [id number] ####Family Dinner Service Specialist: MESERET PAULA ([phone])[address] Hemoglobin (Bld) [Mass/Vol] 13.6 g/dL Normal 11.7-16.0 [facility] Comment on above: Performed By: #### L [id number] ####Family Dinner Service Specialist: MESERET PAULA ([phone])[facility])[address] [place] [address] IMMATURE GRANS % 0.3 % Normal 0.0-2.0 [facility] Comment on above: Performed By: #### L [id number] ####Family Dinner Service Specialist: MESERET PAULA ([phone])[address] IMMATURE GRANS ABSOLUTE 0.0 10*3/uL Normal <0.1 [facility] Comment on above: Performed By: #### L [id number] ####Family Dinner Service Specialist: MESERET PAULA ([phone])[facility])[address] [place] [address] Lymphocytes (Bld) [#/Vol] 2.8 10*3/uL Normal 1.0-4.3 [facility] Comment on above: Performed By: #### L [id number] ####Family Dinner Service Specialist: MESERET PAULA ([phone])[facility] ([facility])[address] [place] [address] Lymphocytes/100 WBC (Bld) 22.4 % Normal 15.0-45.0 [facility] Comment on above: Performed By: #### L [id number] ####Family Dinner Service Specialist: MESERET PAULA ([phone])[facility])[address] [place] [address] MCH (RBC) [Entitic mass] 28.6 pg Normal 26.0-34.0 [facility] Comment on above: Performed By: #### L [id number] ####Family Dinner Service Specialist: MESERET PAULA ([phone])[facility])[address] [place] [address] MCHC 33.2 % Normal 30.5-36.0 [facility] Comment on above: Performed By: #### L [id number] ####Family Dinner Service Specialist: MESERET PAULA ([phone])[facility] ([facility])[address] [place] [address] MCV (RBC) [Entitic vol] 86.1 fL Normal 77.0-99.0 [facility] Comment on above: Performed By: #### L [id number] ####Family Dinner Service Specialist: MESERET PAULA ([phone])[facility] ([facility])[address] [place] [address] Monocytes (Bld) [#/Vol] 1.3 10*3/uL High 0.0-0.9 [facility] Comment on above: Performed By: #### L [id number] ####Family Dinner Service Specialist: MESERET PAULA ([phone])[facility])[address] [place] [address] Monocytes/100 WBC (Bld) 10.2 % Normal 5.0-13.0 [facility] Comment on above: Performed By: #### L [id number] ####Family Dinner Service Specialist: MESERET PAULA ([phone])[facility] ([facility])[address] [place] [address] NEUTROPHILS ABSOLUTE 8.0 10*3/uL High 1.8-7.5 [facility] Comment on above: Performed By: #### L [id number] ####Family Dinner Service Specialist: MESERET PAULA ([phone])[facility] ([facility])[address] [place] [address] Neutrophils/100 WBC (Bld) 65.3 % Normal 38.0-82.0 [facility] Comment on above: Performed By: #### L [id number] ####Family Dinner Service Specialist: MESERET PAULA ([phone])[facility] ([facility])[address] [place] [address] NRBC 0.0 /100 WBCs Normal 0.0-2.0 [facility] Comment on above: Performed By: #### L [id number] ####Family Dinner Service Specialist: MESERET PAULA ([phone])[facility] ([facility])[address] [place] [address] Platelet mean volume (Bld) [Entitic vol] 13.0 fL High 9.0-12.7 [facility] Comment on above: Performed By: #### L [id number] ####Family Dinner Service Specialist: MESERET PAULA ([phone])[facility] ([facility])[address] [place] [address] [place] Platelets (Bld) [#/Vol] 207 10*3/uL Normal 140-440 [facility] Comment on above: Performed By: #### L [id number] ####Family Dinner Service Specialist: MESERET PAULA ([phone])[facility] ([facility])[address] [place] [address] RBC (Bld) [#/Vol] 4.76 10*6/uL Normal 3.80-5.20 [facility] Comment on above: Performed By: #### L [id number] ####Family Dinner Service Specialist: MESERET PAULA ([phone])[facility] ([facility])[address] [place] [address] WBC (Bld) [#/Vol] 12.3 10*3/uL High 3.6-10.7 [facility] Comment on above: Performed By: #### L [id number] ####Family Dinner Service Specialist: MESERET PAULA ([phone])[facility] ([facility])[address] [place] [address] COMPREHENSIVE METABOLIC PANE [place] 03-20-2024 Albumin [Mass/Vol] 3.7 g/dL Normal 3.5-5.0 [facility] Comment on above: Performed By: #### L AB103, [id number], LAB17 ####Family Dinner Service Specialist: MESERET PAULA ([phone])[facility] ([facility])[address] [place] [address] ALP [Catalytic activity/Vol] 115 U/L Normal 38-126 [facility] Comment on above: Performed By: #### L AB103, [id number], LAB17 ####Family Dinner Service Specialist: MESERET PAULA ([phone])[facility] ([facility])[address] [place] [address] ALT [Catalytic activity/Vol] 31 U/L Normal 0-34 [facility] Comment on above: Performed By: #### L AB103, [id number], LAB17 ####Family Dinner Service Specialist: MESERET PAULA ([phone])[facility] ([facility])[address] [place] [address] Anion gap [Moles/Vol] 8 mmol/L Normal 3-13 [facility] Comment on above: Performed By: #### L AB103, [id number], LAB17 ####Family Dinner Service Specialist: MESERET PAULA ([phone])[facility])[address] [place] [address] AST [Catalytic activity/Vol] 47 U/L High 15-46 [facility] Comment on above: Performed By: #### L AB103, [id number], LAB17 ####Family Dinner Service Specialist: MESERET PAULA ([phone])[facility] ([facility])[address] [place] [address] [place] Bilirubin [Mass/Vol] 0.7 mg/dL Normal 0.2-1.3 [facility] Comment on above: Performed By: #### L AB103, [id number], LAB17 ####Family Dinner Service Specialist: MESERET PAULA ([phone])[facility] [place] [address] Calcium [Mass/Vol] 9.2 mg/dL Normal 8.4-10.4 [facility] Comment on above: Performed By: #### L AB103, [id number], LAB17 ####Family Dinner Service Specialist: MESERET PAULA ([phone])[facility] [place] [address] Chloride [Moles/Vol] 103 mmol/L Normal 98-107 [facility] Comment on above: Performed By: #### L AB103, [id number], LAB17 ####Family Dinner Service Specialist: MESERET PAULA ([phone])[facility] [place] [address] [place] CO2 [Moles/Vol] 22 mmol/L Normal 22-30 [facility] Comment on above: Performed By: #### L AB103, [id number], LAB17 ####Family Dinner Service Specialist: MESERET PAULA ([phone])[facility] [place] [address] [place] Creatinine [Mass/Vol] 0.90 mg/dL Normal 0.52-1.04 [facility] Comment on above: Performed By: #### L AB103, [id number], LAB17 ####Family Dinner Service Specialist: MESERET PAULA ([phone])[facility])[address] [place] [address] [place] GLOMERULAR FILTRATION RATE ML/MIN/1.73 SQ M.PREDICTED 77.1 mL/min/1.73m*2 Normal >60.0 [facility] Comment on above: Result Comment: Calc ulation based on the Chronic Kidney Disease Epidemiology Collaboration (CKD-EPI) equation refit without adjustment for race Performed By: #### L [id number], [id number], LAB17 ####Family Dinner Service Specialist: MESERET PAULA ([phone])[facility])[address] [place] [address] Glucose [Mass/Vol] 312 mg/dL High 70-100 [facility] Comment on above: Performed By: #### Yumiko AB103, [id number], LAB17 ####Family Dinner Service Specialist: MESERET PAULA ([phone])[facility])[address] [place] [address] Potassium [Moles/Vol] 4.1 mmol/L Normal 3.5-5.1 [facility] Comment on above: Performed By: #### Yumiko AB103, [id number], LAB17 ####Family Dinner Service Specialist: MESERET PAULA ([phone])[facility])[address] [place] [address] Protein [Mass/Vol] 7.5 g/dL Normal 6.3-8.2 [facility] Comment on above: Performed By: #### Yumiko AB103, [id number], [id number] ####Family Dinner Service Specialist: MESERET PAULA ([phone])[facility])[address] [place] [address] Sodium [Moles/Vol] 134 mmol/L Low 135-145 [facility] Comment on above: Performed By: #### Yumiko ABSteven, [id number], [id number] ####Family Dinner Service Specialist: MESERET PAULA ([phone])[facility])[address] [place] [address] Urea nitrogen [Mass/Vol] 17 mg/dL Normal 7-17 [facility] Comment on above: Performed By: #### L AB103, [id number], LAB17 ####Family Dinner Service Specialist: MESERET PAULA ([phone])[facility])[address] [place] [address] Comprehensive metabolic 1998 panelon 03-20-2024 Albumin [Mass/Vol] 3.7 g/dL 3.5 - 5.0 g/dL [facility] ALP [Catalytic activity/Vol] 115 U/L 38 - 126 U/L [facility] ALT [Catalytic activity/Vol] 31 U/L 0 - 34 U/L [facility] Anion gap [Moles/Vol] 8 mmol/L 3 - 13 mmol/L [facility] AST [Catalytic activity/Vol] 47 U/L High 15 - 46 U/L [facility] Bilirubin [Mass/Vol] 0.7 mg/dL 0.2 - 1 .3 mg/dL [facility] Calcium [Mass/Vol] 9.2 mg/dL 8.4 - 10. 4 mg/dL [facility] Chloride [Moles/Vol] 103 mmol/L 98 - 10 7 mmol/L [facility] CO2 [Moles/Vol] 22 mmol/L 22 - 30 mmol/L [facility] Creatinine [Mass/Vol] 0.90 mg/dL 0.52 - 1.04 mg/dL [facility] GFR/1.73 sq M.predicted MDRD (S/P/Bld) [Vol rate/Area] 77.1 mL/min/{1.73_m2} - PINF [facility] Glucose [Mass/Vol] 312 mg/dL High 70 - 100 mg/dL [facility] Interpretation and review of laboratory results Abnormal [facility] Potassium [Moles/Vol] 4.1 mmol/L 3.5 - 5.1 mmol/L [facility] Protein [Mass/Vol] 7.5 g/dL 6.3 - 8.2 g/dL [facility] Sodium [Moles/Vol] 134 mmol/L Low 135 - 145 mmol/L [facility] Urea nitrogen [Mass/Vol] 17 mg/dL 7 - 17 mg/dL [facility] IDNon 03-20-2024 IDN Normal [facility] Laboratory - Chemistry and C hemistry - challengeon 03-20-2024 Glucose [Mass/Vol] 264 mg/dL High 70 - 100 mg/dL [facility] Glucose [Mass/Vol] 165 mg/dL High 70 - 100 mg/dL [facility] Glucose [Mass/Vol] 227 mg/dL High 70 - 100 mg/dL [facility] Glucose [Mass/Vol] 216 mg/dL High 70 - 100 mg/dL [facility] Glucose [Mass/Vol] 208 mg/dL High 70 - 100 mg/dL [facility] Magnesium [Mass/Vol] 1.8 mg/dL 1.6 - 2 .3 mg/dL [facility] MAGNESIUMon 03-20-2024 Magnesium [Mass/Vol] 1.8 mg/dL Normal 1.6-2.3 [facility] Comment on above: Performed By: #### L AB103, [id number], LAB17 ####Family Dinner Service Specialist: MESERET PAULA ([phone])[facility])[address] [place] [address] No Panel Informationon 03-20 Interpretation and review of laboratory results Abnormal [facility] Interpretation and review of laboratory results Abnormal [facility] Interpretation and review of laboratory results Abnormal [facility] Interpretation and review of laboratory results Abnormal [facility] Interpretation and review of laboratory results Abnormal [facility] Interpretation and review of laboratory results Normal [facility] PHOSPHORUSon 03-20-2024 Phosphate [Mass/Vol] 4.1 mg/dL Normal 2.5-4.5 [facility] Comment on above: Performed By: #### L AB103, [id number], LAB17 ####Family Dinner Service Specialist: MESERET PAULA ([phone])[address] Phosphate [Moles/Vol]on 02-24 Phosphate [Mass/Vol] 4.1 mg/dL 2.5 - 4 .5 mg/dL [facility] Progress Noteon 03-20-2024 Progress Note Normal [facility] Progress Note Normal [facility] Progress Note Normal [facility] Progress Note Normal [facility] Progress Note Normal [facility] CBC W Auto Differential pane l (Bld)on 03-19-2024 Basophils (Bld) [#/Vol] 0.0 10*3/uL 0.0 - 0.2 10*3/uL [facility] Basophils/100 WBC (Bld) 0.3 % 0.0 - 2.0 % [facility] Eosinophils (Bld) [#/Vol] 0.3 10*3/uL 0.0 - 0.5 10*3/uL [facility] Eosinophils/100 WBC (Bld) 1.9 % 0.0 - 6.0 % [facility] Erythrocyte distribution width (RBC) [Ratio] 13.5 % 11.5 - 15.0 % [facility] Hematocrit (Bld) [Volume fraction] 41.7 % 35.0 - 47.0 % [facility] Hemoglobin (Bld) [Mass/Vol] 13.8 g/dL 11.7 - 16.0 g/dL [facility] Immature granulocytes (Bld) [#/Vol] 0.1 10*3/uL High NINF - 0.1 10*3/uL [facility] Immature granulocytes/100 WBC (Bld) 0.6 % 0.0 - 2.0 % [facility] Interpretation and review of laboratory results Abnormal [facility] IPF 12 [facility] Lymphocytes (Bld) [#/Vol] 3.1 10*3/uL 1.0 - 4.3 10*3/uL [facility] Lymphocytes/100 WBC (Bld) 22.4 % 15.0 - 45.0 % [facility] MCH (RBC) [Entitic mass] 28.7 pg 26.0 - 34.0 pg [facility] MCHC (RBC) [Mass/Vol] 33.1 % 30.5 - 36.0 % [facility] MCV (RBC) [Entitic vol] 86.7 fL 77.0 - 99.0 fL [facility] Monocytes (Bld) [#/Vol] 1.3 10*3/uL High 0.0 - 0.9 10*3/uL [facility] Monocytes/100 WBC (Bld) 9.5 % 5.0 - 13.0 % [facility] Neutrophils (Bld) [#/Vol] 9.2 10*3/uL High 1.8 - 7.5 10*3/uL [facility] Neutrophils/100 WBC (Bld) 65.3 % 38.0 - 82.0 % [facility] Nucleated RBC/100 WBC (Bld) [Ratio] 0.0 % [facility] Platelet mean volume (Bld) [Entitic vol] 13.2 fL High 9.0 - 12.7 fL [facility] Platelets (Bld) [#/Vol] 191 10*3/uL 140 - 440 10*3/uL [facility] RBC (Bld) [#/Vol] 4.81 10*6/uL 3.80 - 5.2 0 10*6/uL [facility] WBC (Bld) [#/Vol] 14.0 10*3/uL High 3.6 - 10.7 10*3/uL [facility] CBC WITH AUTO DIFFERENTIALon 03-19-2024 Basophils (Bld) [#/Vol] 0.0 10*3/uL Normal 0.0-0.2 [facility] Comment on above: Performed By: #### L [id number] ####Family Dinner Service Specialist: MESERET PAULA ([phone])[facility])[address] [place] [address] Basophils/100 WBC (Bld) 0.3 % Normal 0.0-2.0 [facility] Comment on above: Performed By: #### L [id number] ####Family Dinner Service Specialist: MESERET PAULA ([phone])[facility])[address] [place] [address] Eosinophils (Bld) [#/Vol] 0.3 10*3/uL Normal 0.0-0.5 [facility] Comment on above: Performed By: #### L [id number] ####Family Dinner Service Specialist: MESERET PAULA ([phone])[facility])[address] [place] [address] Eosinophils/100 WBC (Bld) 1.9 % Normal 0.0-6.0 [facility] Comment on above: Performed By: #### L [id number] ####Family Dinner Service Specialist: MESERET PAULA ([phone])[facility])[address] [place] [address] Erythrocyte distribution width (RBC) [Ratio] 13.5 % Normal 11.5-15.0 [facility] Comment on above: Performed By: #### L [id number] ####Family Dinner Service Specialist: MESERET PAULA ([phone])[facility])[address] [place] [address] Hematocrit (Bld) [Volume fraction] 41.7 % Normal 35.0-47.0 [facility] Comment on above: Performed By: #### L [id number] ####Family Dinner Service Specialist: MESERET PAULA ([phone])[facility])[address] [place] [address] Hemoglobin (Bld) [Mass/Vol] 13.8 g/dL Normal 11.7-16.0 [facility] Comment on above: Performed By: #### L [id number] ####Family Dinner Service Specialist: MESERET PAULA ([phone])[facility])[address] [place] [address] IMMATURE GRANS % 0.6 % Normal 0.0-2.0 [facility] Comment on above: Performed By: #### L [id number] ####Family Dinner Service Specialist: MESERET PAULA ([phone])[facility])[address] [place] [address] IMMATURE GRANS ABSOLUTE 0.1 10*3/uL High <0.1 [facility] Comment on above: Performed By: #### L [id number] ####Family Dinner Service Specialist: MESERET PAULA ([phone])[facility])[address] [place] [address] [place] IPF 12 Normal [facility] Comment on above: Performed By: #### L [id number] ####Family Dinner Service Specialist: MESERET PAULA ([phone])[facility])[address] [place] [address] [place] Lymphocytes (Bld) [#/Vol] 3.1 10*3/uL Normal 1.0-4.3 [facility] Comment on above: Performed By: #### L [id number] ####Family Dinner Service Specialist: MESERET PAULA ([phone])[facility])[address] [place] [address] Lymphocytes/100 WBC (Bld) 22.4 % Normal 15.0-45.0 [facility] Comment on above: Performed By: #### L [id number] ####Family Dinner Service Specialist: MESERET [phone])[facility] ([facility])[address] [place] [address] MCH (RBC) [Entitic mass] 28.7 pg Normal 26.0-34.0 [facility] Comment on above: Performed By: #### L [id number] ####Family Dinner Service Specialist: MESERET PAULA ([phone])[facility])[address] [place] [address] MCHC 33.1 % Normal 30.5-36.0 [facility] Comment on above: Performed By: #### L [id number] ####Family Dinner Service Specialist: MESERET PAULA ([phone])[facility])[address] [place] [address] MCV (RBC) [Entitic vol] 86.7 fL Normal 77.0-99.0 [facility] Comment on above: Performed By: #### L [id number] ####Family Dinner Service Specialist: MESERET PAULA ([phone])[facility])[address] [place] [address] Monocytes (Bld) [#/Vol] 1.3 10*3/uL High 0.0-0.9 [facility] Comment on above: Performed By: #### L [id number] ####Family Dinner Service Specialist: MESERET PAULA ([phone])[facility])[address] [place] [address] Monocytes/100 WBC (Bld) 9.5 % Normal 5.0-13.0 [facility] Comment on above: Performed By: #### L [id number] ####Family Dinner Service Specialist: MESERET PAULA ([phone])[facility])[address] [place] [address] NEUTROPHILS ABSOLUTE 9.2 10*3/uL High 1.8-7.5 [facility] Comment on above: Performed By: #### L [id number] ####Family Dinner Service Specialist: MESERET PAULA ([phone])[facility])[address] [place] [address] Neutrophils/100 WBC (Bld) 65.3 % Normal 38.0-82.0 [facility] Comment on above: Performed By: #### L [id number] ####Family Dinner Service Specialist: MESERET PAULA ([phone])[facility])[address] [place] [address] NRBC 0.0 /100 WBCs Normal 0.0-2.0 [facility] Comment on above: Performed By: #### L [id number] ####Family Dinner Service Specialist: MESERET PAULA ([phone])[facility] ([facility])[address] [place] [address] Platelet mean volume (Bld) [Entitic vol] 13.2 fL High 9.0-12.7 [facility] Comment on above: Performed By: #### L [id number] ####Family Dinner Service Specialist: MESERET PAULA ([phone])[facility])[address] [place] [address] Platelets (Bld) [#/Vol] 191 10*3/uL Normal 140-440 [facility] Comment on above: Performed By: #### L [id number] ####Family Dinner Service Specialist: MESERET PAULA ([phone])[facility])[address] [place] [address] RBC (Bld) [#/Vol] 4.81 10*6/uL Normal 3.80-5.20 [facility] Comment on above: Performed By: #### L [id number] ####Family Dinner Service Specialist: MESERET PAULA ([phone])[facility])[address] [place] [address] WBC (Bld) [#/Vol] 14.0 10*3/uL High 3.6-10.7 [facility] Comment on above: Performed By: #### L [id number] ####Family Dinner Service Specialist: MESERET PAULA ([phone])[facility])[address] [place] [address] COMPREHENSIVE METABOLIC PANE [place] 03-19-2024 Albumin [Mass/Vol] 3.7 g/dL Normal 3.5-5.0 [facility] Comment on above: Performed By: #### L [id number], [id number], LAB17 ####Family Dinner Service Specialist: MESERET PAULA ([phone])[facility])[address] [place] [address] ALP [Catalytic activity/Vol] 111 U/L Normal 38-126 [facility] Comment on above: Performed By: #### Yumiko AB103, [id number], LAB17 ####Family Dinner Service Specialist: MESERET PAULA ([phone])[facility])[address] [place] [address] ALT [Catalytic activity/Vol] 25 U/L Normal 0-34 [facility] Comment on above: Performed By: #### Yumiko AB103, [id number], LAB17 ####Family Dinner Service Specialist: MESERET PAULA ([phone])[facility])[address] [place] [address] Anion gap [Moles/Vol] 8 mmol/L Normal 3-13 [facility] Comment on above: Performed By: #### Yumiko ABSteven, [id number], LAB17 ####Family Dinner Service Specialist: MESERET PAULA ([phone])[facility] ([facility])[address] [place] [address] AST [Catalytic activity/Vol] 43 U/L Normal 15-46 [facility] Comment on above: Performed By: #### Yumiko AB103, [id number], LAB17 ####Family Dinner Service Specialist: MESERET PAULA ([phone])[facility] ([facility])[address] [place] [address] [place] Bilirubin [Mass/Vol] 0.6 mg/dL Normal 0.2-1.3 [facility] Comment on above: Performed By: #### L AB103, [id number], LAB17 ####Family Dinner Service Specialist: MESERET PAULA ([phone])[facility])[address] [place] [address] Calcium [Mass/Vol] 9.0 mg/dL Normal 8.4-10.4 [facility] Comment on above: Performed By: #### L AB103, [id number], LAB17 ####Family Dinner Service Specialist: MESERET PAULA ([phone])[facility])[address] [place] [address] [place] Chloride [Moles/Vol] 106 mmol/L Normal 98-107 [facility] Comment on above: Performed By: #### L AB103, [id number], LAB17 ####Family Dinner Service Specialist: MESERET PAULA ([phone])[facility] ([facility])[address] [place] [address] CO2 [Moles/Vol] 22 mmol/L Normal 22-30 [facility] Comment on above: Performed By: #### L AB103, [id number], LAB17 ####Family Dinner Service Specialist: MESERET PAULA ([phone])[facility])[address] [place] [address] Creatinine [Mass/Vol] 0.95 mg/dL Normal 0.52-1.04 [facility] Comment on above: Performed By: #### L AB103, [id number], LAB17 ####Family Dinner Service Specialist: MESERET PAULA ([phone])[facility])[address] [place] [address] GLOMERULAR FILTRATION RATE ML/MIN/1.73 SQ M.PREDICTED 72.2 mL/min/1.73m*2 Normal >60.0 [facility] Comment on above: Result Comment: Calc ulation based on the Chronic Kidney Disease Epidemiology Collaboration (CKD-EPI) equation refit without adjustment for race Performed By: #### L AB103, [id number], LAB17 ####Family Dinner Service Specialist: MESERET PAULA ([phone])[facility] ([facility])[address] [place] [address] [place] Glucose [Mass/Vol] 209 mg/dL High 70-100 [facility] Comment on above: Performed By: #### L AB103, [id number], LAB17 ####Family Dinner Service Specialist: MESERET PAULA ([phone])[facility])[address] [place] [address] [place] Potassium [Moles/Vol] 4.2 mmol/L Normal 3.5-5.1 [facility] Comment on above: Performed By: #### L AB103, [id number], LAB17 ####Family Dinner Service Specialist: MESERET PAULA ([phone])[facility] ([facility])[address] [place] [address] Protein [Mass/Vol] 7.4 g/dL Normal 6.3-8.2 [facility] Comment on above: Performed By: #### Yumiko AB103, [id number], LAB17 ####Family Dinner Service Specialist: MESERET PAULA ([phone])[facility] ([facility])[address] [place] [address] Sodium [Moles/Vol] 136 mmol/L Normal 135-145 [facility] Comment on above: Performed By: #### Yumiko AB103, [id number], LAB17 ####Family Dinner Service Specialist: MESERET PAULA ([phone])[facility] ([facility])[address] [place] [address] Urea nitrogen [Mass/Vol] 18 mg/dL High 7-17 [facility] Comment on above: Performed By: #### Yumiko AB103, [id number], LAB17 ####Family Dinner Service Specialist: MESERET PAULA ([phone])[facility])[address] [place] [address] Comprehensive metabolic 1998 panelon 03-19-2024 Albumin [Mass/Vol] 3.7 g/dL 3.5 - 5.0 g/dL [facility] ALP [Catalytic activity/Vol] 111 U/L 38 - 126 U/L [facility] ALT [Catalytic activity/Vol] 25 U/L 0 - 34 U/L [facility] Anion gap [Moles/Vol] 8 mmol/L 3 - 13 mmol/L [facility] AST [Catalytic activity/Vol] 43 U/L 15 - 46 U/L [facility] Bilirubin [Mass/Vol] 0.6 mg/dL 0.2 - 1 .3 mg/dL [facility] Calcium [Mass/Vol] 9.0 mg/dL 8.4 - 10. 4 mg/dL [facility] Chloride [Moles/Vol] 106 mmol/L 98 - 10 7 mmol/L [facility] CO2 [Moles/Vol] 22 mmol/L 22 - 30 mmol/L [facility] Creatinine [Mass/Vol] 0.95 mg/dL 0.52 - 1.04 mg/dL [facility] GFR/1.73 sq M.predicted MDRD (S/P/Bld) [Vol rate/Area] 72.2 mL/min/{1.73_m2} - PINF [facility] Glucose [Mass/Vol] 209 mg/dL High 70 - 100 mg/dL [facility] Interpretation and review of laboratory results Abnormal [facility] Potassium [Moles/Vol] 4.2 mmol/L 3.5 - 5.1 mmol/L [facility] Protein [Mass/Vol] 7.4 g/dL 6.3 - 8.2 g/dL [facility] Sodium [Moles/Vol] 136 mmol/L 135 - 145 mmol/L [facility] Urea nitrogen [Mass/Vol] 18 mg/dL High 7 - 17 mg/dL [facility] Consulton 03-19-2024 Consult Normal [facility] IDNon 03-19-2024 IDN The patient is Moderately Stable - Low risk of patient condition declining or worsening The patient's goals for the shift include remain CP free The clinical goals for the shift include remain CP free Normal [facility] Laboratory - Chemistry and C hemistry - challengeon 03-19-2024 Glucose [Mass/Vol] 138 mg/dL High 70 - 100 mg/dL [facility] Glucose [Mass/Vol] 266 mg/dL High 70 - 100 mg/dL [facility] Glucose [Mass/Vol] 186 mg/dL High 70 - 100 mg/dL [facility] Magnesium [Mass/Vol] 2.0 mg/dL 1.6 - 2 .3 mg/dL [facility] MAGNESIUMon 03-19-2024 Magnesium [Mass/Vol] 2.0 mg/dL Normal 1.6-2.3 [facility] Comment on above: Performed By: #### L AB103, [id number], LAB17 ####Family Dinner Service Specialist: MESERET PAULA ([phone])[facility] ([address] MR Brain WO and W contrast I Von 03-19-2024 [facility] MR Brain WO and W contrast I VOrdered By: Garrick Wharton on 03-19-2024 [facility] Work Phone: MRA Head vessels WO contrast on 03-19-2024 [facility] MRA Neck vessels WO and W co ntrast Gi 03-19-2024 [facility] No Panel Informationon 03-19 Radiology Study observation (narrative) [facility] Interpretation and review of laboratory results Abnormal [facility] Interpretation and review of laboratory results Abnormal [facility] Interpretation and review of laboratory results Abnormal [facility] Interpretation and review of laboratory results Normal [facility] PHOSPHORUSon 03-19-2024 Phosphate [Mass/Vol] 3.5 mg/dL Normal 2.5-4.5 [facility] Comment on above: Performed By: #### L AB103, [id number], LAB17 ####Family Dinner Service Specialist: MESERET PAULA ([phone])[address] Phosphate [Moles/Vol]on 02-24 Phosphate [Mass/Vol] 3.5 mg/dL 2.5 - 4 .5 mg/dL [facility] Progress Noteon 03-19-2024 Progress Note Normal [facility] Progress Note Normal [facility] Progress Note Normal [facility] Progress Note Normal [facility] Progress Note Normal [facility] Progress Note Normal [facility] Progress Note Normal [facility] XR ABDOMEN 1 VIEWon 03-19-20 XR ABDOMEN 1 VIEW Normal [facility] XR Abdomen Single viewon [facility] Radiology Study observation (narrative) Luis Alston alth XR Abdomen Single viewOrdere d By: Emelia Galeana on 03-19-2024 [facility] [employer] Phone: CARECOORDon 03-18-2024 [place] Normal [facility] CBC W Auto Differential pane l (Bld)Ordered By: Tri Barajas on 03-18-2024 Basophils (Bld) [#/Vol] 0.0 10*3/uL 0.0 - 0.2 10*3/uL [facility] Basophils/100 WBC (Bld) 0.2 % 0.0 - 2.0 % [facility] Eosinophils (Bld) [#/Vol] 0.3 10*3/uL 0.0 - 0.5 10*3/uL [facility] Eosinophils/100 WBC (Bld) 2.2 % 0.0 - 6.0 % [facility] Erythrocyte distribution width (RBC) [Ratio] 13.6 % 11.5 - 15.0 % [facility] Hematocrit (Bld) [Volume fraction] 42.5 % 35.0 - 47.0 % [facility] Hemoglobin (Bld) [Mass/Vol] 14.0 g/dL 11.7 - 16.0 g/dL [facility] Immature granulocytes (Bld) [#/Vol] 0.1 10*3/uL High NINF - 0.1 10*3/uL [facility] Immature granulocytes/100 WBC (Bld) 0.5 % 0.0 - 2.0 % [facility] Interpretation and review of laboratory results Abnormal [facility] Lymphocytes (Bld) [#/Vol] 3.2 10*3/uL 1.0 - 4.3 10*3/uL [facility] Lymphocytes/100 WBC (Bld) 22.7 % 15.0 - 45.0 % [facility] MCH (RBC) [Entitic mass] 28.6 pg 26.0 - 34.0 pg [facility] MCHC (RBC) [Mass/Vol] 32.9 % 30.5 - 36.0 % [facility] MCV (RBC) [Entitic vol] 86.9 fL 77.0 - 99.0 fL [facility] Monocytes (Bld) [#/Vol] 1.5 10*3/uL High 0.0 - 0.9 10*3/uL [facility] Monocytes/100 WBC (Bld) 10.9 % 5.0 - 13.0 % [facility] Health Neutrophils (Bld) [#/Vol] 8.9 10*3/uL High 1.8 - 7.5 10*3/uL [facility] Neutrophils/100 WBC (Bld) 63.5 % 38.0 - 82.0 % [facility] Nucleated RBC/100 WBC (Bld) [Ratio] 0.0 % [facility] Platelet mean volume (Bld) [Entitic vol] 12.8 fL High 9.0 - 12.7 fL [facility] Platelets (Bld) [#/Vol] 190 10*3/uL 140 - 440 10*3/uL [facility] RBC (Bld) [#/Vol] 4.89 10*6/uL 3.80 - 5.2 0 10*6/uL [facility] WBC (Bld) [#/Vol] 14.1 10*3/uL High 3.6 - 10.7 10*3/uL [facility] CBC WITH AUTO DIFFERENTIALon 03-18-2024 Basophils (Bld) [#/Vol] 0.0 10*3/uL Normal 0.0-0.2 [facility] Comment on above: Performed By: #### L [id number] ####Family Dinner Service Specialist: MESERET PAULA ([phone])[facility])[address] [place] [address] Basophils/100 WBC (Bld) 0.2 % Normal 0.0-2.0 [facility] Comment on above: Performed By: #### L [id number] ####Family Dinner Service Specialist: MESERET PAULA ([phone])[facility])[address] [place] [address] Eosinophils (Bld) [#/Vol] 0.3 10*3/uL Normal 0.0-0.5 [facility] Comment on above: Performed By: #### L [id number] ####Family Dinner Service Specialist: MESERET PAULA ([phone])[facility])[address] [place] [address] Eosinophils/100 WBC (Bld) 2.2 % Normal 0.0-6.0 [facility] Comment on above: Performed By: #### L [id number] ####Family Dinner Service Specialist: MESERET [phone])[facility])[address] [place] [address] Erythrocyte distribution width (RBC) [Ratio] 13.6 % Normal 11.5-15.0 [facility] Comment on above: Performed By: #### L [id number] ####Family Dinner Service Specialist: MESERET PAULA ([phone])[facility])[address] [place] [address] Hematocrit (Bld) [Volume fraction] 42.5 % Normal 35.0-47.0 [facility] Comment on above: Performed By: #### L [id number] ####Family Dinner Service Specialist: MESERET PAULA ([phone])[facility])[address] [place] [address] Hemoglobin (Bld) [Mass/Vol] 14.0 g/dL Normal 11.7-16.0 [facility] Comment on above: Performed By: #### L [id number] ####Family Dinner Service Specialist: MESERET PAULA ([phone])[facility])[address] [place] [address] IMMATURE GRANS % 0.5 % Normal 0.0-2.0 [facility] Comment on above: Performed By: #### L [id number] ####Family Dinner Service Specialist: MESERET PAULA ([phone])[facility])[address] [place] [address] IMMATURE GRANS ABSOLUTE 0.1 10*3/uL High <0.1 [facility] Comment on above: Performed By: #### L [id number] ####Family Dinner Service Specialist: MESERET PAULA ([phone])[facility])[address] [place] [address] Lymphocytes (Bld) [#/Vol] 3.2 10*3/uL Normal 1.0-4.3 [facility] Comment on above: Performed By: #### L [id number] ####Family Dinner Service Specialist: MESERET PAULA ([phone])[facility])[address] [place] [address] Lymphocytes/100 WBC (Bld) 22.7 % Normal 15.0-45.0 [facility] Comment on above: Performed By: #### L [id number] ####Family Dinner Service Specialist: MESERET PAULA ([phone])[facility])[address] [place] [address] MCH (RBC) [Entitic mass] 28.6 pg Normal 26.0-34.0 [facility] Comment on above: Performed By: #### L [id number] ####Family Dinner Service Specialist: MESERET PAULA ([phone])[facility])[address] [place] [address] MCHC 32.9 % Normal 30.5-36.0 [facility] Comment on above: Performed By: #### L [id number] ####Family Dinner Service Specialist: MESERET PAULA ([phone])[facility])[address] [place] [address] MCV (RBC) [Entitic vol] 86.9 fL Normal 77.0-99.0 [facility] Comment on above: Performed By: #### L [id number] ####Family Dinner Service Specialist: MESERET PAULA ([phone])[facility])[address] [place] [address] Monocytes (Bld) [#/Vol] 1.5 10*3/uL High 0.0-0.9 [facility] Comment on above: Performed By: #### L [id number] ####Family Dinner Service Specialist: MESERET PAULA ([phone])[facility])[address] [place] [address] Monocytes/100 WBC (Bld) 10.9 % Normal 5.0-13.0 [facility] Comment on above: Performed By: #### L [id number] ####Family Dinner Service Specialist: MESERET PAULA ([phone])[facility])[address] [place] [address] NEUTROPHILS ABSOLUTE 8.9 10*3/uL High 1.8-7.5 [facility] Comment on above: Performed By: #### L [id number] ####Family Dinner Service Specialist: MESERET PAULA ([phone])[facility] [place] [address] Neutrophils/100 WBC (Bld) 63.5 % Normal 38.0-82.0 [facility] Comment on above: Performed By: #### L [id number] ####Family Dinner Service Specialist: MESERET PAULA ([phone])[facility] ([facility])[address] [place] [address] NRBC 0.0 /100 WBCs Normal 0.0-2.0 [facility] Comment on above: Performed By: #### L [id number] ####Family Dinner Service Specialist: MESERET PAULA ([phone])[facility] ([facility])[address] [place] [address] Platelet mean volume (Bld) [Entitic vol] 12.8 fL High 9.0-12.7 [facility] Comment on above: Performed By: #### L [id number] ####Family Dinner Service Specialist: MESERET PAULA ([phone])[facility] ([facility])[address] [place] [address] Platelets (Bld) [#/Vol] 190 10*3/uL Normal 140-440 [facility] Comment on above: Performed By: #### L [id number] ####Family Dinner Service Specialist: MESERET PAULA ([phone])[facility] ([facility])[address] [place] [address] RBC (Bld) [#/Vol] 4.89 10*6/uL Normal 3.80-5.20 [facility] Comment on above: Performed By: #### L [id number] ####Family Dinner Service Specialist: MESERET PAULA ([phone])[facility] ([facility])[address] [place] [address] WBC (Bld) [#/Vol] 14.1 10*3/uL High 3.6-10.7 [facility] Comment on above: Performed By: #### L [id number] ####Family Dinner Service Specialist: MESERET PAULA ([phone])[facility] ([facility])[address] [place] [address] COMPREHENSIVE METABOLIC PANE [place] 03-18-2024 Albumin [Mass/Vol] 3.7 g/dL Normal 3.5-5.0 [facility] Comment on above: Performed By: #### Yumiko AB113, [id number], LAB17 ####Family Dinner Service Specialist: MESERET PAULA ([phone])[facility] ([facility])[address] [place] [address] ALP [Catalytic activity/Vol] 115 U/L Normal 38-126 [facility] Comment on above: Performed By: #### Yumiko ABAlina, [id number], LAB17 ####Family Dinner Service Specialist: MESERET PAULA ([phone])[facility] ([facility])[address] [place] [address] ALT [Catalytic activity/Vol] 27 U/L Normal 0-34 [facility] Comment on above: Performed By: #### Yumiko LADD, [id number], LAB17 ####Family Dinner Service Specialist: MESERET PAULA ([phone])[facility] ([facility])[address] [place] [address] Anion gap [Moles/Vol] 5 mmol/L Normal 3-13 [facility] Comment on above: Performed By: #### Yumiko LADD, [id number], LAB17 ####Family Dinner Service Specialist: MESERET PAULA ([phone])[facility] ([facility])[address] [place] [address] AST [Catalytic activity/Vol] 67 U/L High 15-46 [facility] Comment on above: Performed By: #### Yumiko ABAlina, [id number], LAB17 ####Family Dinner Service Specialist: MESERET PAULA ([phone])[facility] ([facility])[address] [place] [address] Bilirubin [Mass/Vol] 1.0 mg/dL Normal 0.2-1.3 [facility] Comment on above: Performed By: #### Yumiko AB113, [id number], LAB17 ####Family Dinner Service Specialist: MESERET PAULA ([phone])[facility] ([facility])[address] [place] [address] Calcium [Mass/Vol] 8.8 mg/dL Normal 8.4-10.4 [facility] Comment on above: Performed By: #### Yumiko AB113, [id number], LAB17 ####Family Dinner Service Specialist: MESERET PAULA ([phone])[facility] ([facility])[address] [place] [address] Chloride [Moles/Vol] 105 mmol/L Normal 98-107 [facility] Comment on above: Performed By: #### Yumiko ABAlina, [id number], LAB17 ####Family Dinner Service Specialist: MESERET PAULA ([phone])[facility] [place] [address] CO2 [Moles/Vol] 24 mmol/L Normal 22-30 [facility] Comment on above: Performed By: #### Yumiko ABAlina, [id number], LAB17 ####Family Dinner Service Specialist: MESERET PAULA ([phone])[facility] ([facility])[address] [place] [address] Creatinine [Mass/Vol] 0.85 mg/dL Normal 0.52-1.04 [facility] Comment on above: Performed By: #### Yumiko LADD, [id number], LAB17 ####Family Dinner Service Specialist: MESERET PAULA ([phone])[facility] ([facility])[address] [place] [address] [place] GLOMERULAR FILTRATION RATE ML/MIN/1.73 SQ M.PREDICTED 82.6 mL/min/1.73m*2 Normal >60.0 [facility] Comment on above: Result Comment: Calc ulation based on the Chronic Kidney Disease Epidemiology Collaboration (CKD-EPI) equation refit without adjustment for race Performed By: #### L AB113, [id number], LAB17 ####Family Dinner Service Specialist: MESERET PAULA ([phone])[facility] ([facility])[address] [place] [address] [place] Glucose [Mass/Vol] 206 mg/dL High 70-100 [facility] Comment on above: Performed By: #### Yumiko ABAlina, [id number], LAB17 ####Family Dinner Service Specialist: MESERET [phone])[facility] [place] [address] Potassium [Moles/Vol] 3.8 mmol/L Normal 3.5-5.1 [facility] Comment on above: Performed By: #### L AB113, [id number], LAB17 ####Family Dinner Service Specialist: MESERET PAULA ([phone])[facility] ([facility])[address] [place] [address] Protein [Mass/Vol] 7.3 g/dL Normal 6.3-8.2 [facility] Comment on above: Performed By: #### L AB113, [id number], LAB17 ####Family Dinner Service Specialist: MESERET PAULA ([phone])[facility] ([facility])[address] [place] [address] Sodium [Moles/Vol] 134 mmol/L Low 135-145 [facility] Comment on above: Performed By: #### L AB113, [id number], LAB17 ####Family Dinner Service Specialist: MESERET PAULA ([phone])[facility] ([facility])[address] [place] [address] Urea nitrogen [Mass/Vol] 16 mg/dL Normal 7-17 [facility] Comment on above: Performed By: #### L AB113, [id number], LAB17 ####Family Dinner Service Specialist: MESERET PAULA ([phone])[facility] ([facility])[address] [place] [address] CT HEAD WO IV CONTRASTon CT HEAD WO IV CONTRAST Normal [facility] CT Head WO contraston 2023 [facility] Radiology Study observation (narrative) [facility] Gamaliel alth CT Head WO contrastOrdered B y: Bartolo Bateman on 03-18-2024 [facility] Work Phone: Comprehensive metabolic 1998 panelon 03-18-2024 Albumin [Mass/Vol] 3.7 g/dL 3.5 - 5.0 g/dL [facility] ALP [Catalytic activity/Vol] 115 U/L 38 - 126 U/L [facility] ALT [Catalytic activity/Vol] 27 U/L 0 - 34 U/L [facility] Anion gap [Moles/Vol] 5 mmol/L 3 - 13 mmol/L [facility] AST [Catalytic activity/Vol] 67 U/L High 15 - 46 U/L [facility] Bilirubin [Mass/Vol] 1.0 mg/dL 0.2 - 1 .3 mg/dL [facility] Calcium [Mass/Vol] 8.8 mg/dL 8.4 - 10. 4 mg/dL [facility] Chloride [Moles/Vol] 105 mmol/L 98 - 10 7 mmol/L [facility] CO2 [Moles/Vol] 24 mmol/L 22 - 30 mmol/L [facility] Creatinine [Mass/Vol] 0.85 mg/dL 0.52 - 1.04 mg/dL [facility] GFR/1.73 sq M.predicted MDRD (S/P/Bld) [Vol rate/Area] 82.6 mL/min/{1.73_m2} - PINF [facility] Glucose [Mass/Vol] 206 mg/dL High 70 - 100 mg/dL [facility] Interpretation and review of laboratory results Abnormal [facility] Potassium [Moles/Vol] 3.8 mmol/L 3.5 - 5.1 mmol/L [facility] Protein [Mass/Vol] 7.3 g/dL 6.3 - 8.2 g/dL [facility] Sodium [Moles/Vol] 134 mmol/L Low 135 - 145 mmol/L [facility] Urea nitrogen [Mass/Vol] 16 mg/dL 7 - 17 mg/dL [facility] Consulton 03-18-2024 Consult Normal [facility] Consult Normal [facility] Consult Normal [facility] Consult Normal [facility] ECG 12-LEADon 03-18-2024 ECG 12-LEAD IMPRESSION: Sinus rhythm Right axis deviation Abnormal T, consider ischemia, lateral leads Electronically Signed On 03-18-2024 17:22:31 EDT by Justine Connolly Normal [facility] ECG 12-LEAD IMPRESSION: Sinus rhythm Abnormal T, consider ischemia, lateral leads ST elevation, consider inferior injury Electronically Signed On 03-18-2024 17:20:07 EDT by Justine Connolly Normal [facility] Laboratory - Chemistry and C hemistry - challengeon 03-18-2024 Glucose [Mass/Vol] 178 mg/dL High 70 - 100 mg/dL [facility] Glucose [Mass/Vol] 214 mg/dL High 70 - 100 mg/dL [facility] Glucose [Mass/Vol] 242 mg/dL High 70 - 100 mg/dL [facility] Magnesium [Mass/Vol] 2.0 mg/dL 1.6 - 2 .3 mg/dL [facility] MAGNESIUMon 03-18-2024 Magnesium [Mass/Vol] 2.0 mg/dL Normal 1.6-2.3 [facility] Comment on above: Performed By: #### L AB113, [id number], LAB17 ####Family Dinner Service Specialist: MESERET PAULA ([phone])[facility] ([address] No Panel Informationon 03-18 Interpretation and review of laboratory results Abnormal [facility] P [place] -44 degrees [facility] [place] Interval 150 ms [facility] QRS [place] 154 degrees [facility] QRSD Interval 90 ms [facility] QT Interval 410 ms [facility] QTC Interval 487 ms [facility] T Wave [place] 96 degrees [facility] CV EPIPHANY [facility] CV EPIPHANY [facility] Interpretation and review of laboratory results Abnormal [facility] Interpretation and review of laboratory results Abnormal [facility] Interpretation and review of laboratory results Normal [facility] No Panel InformationOrdered By: Justine Connolly on 03-18-2024 P [place] 65 degrees [facility] Work Phone: [place] Interval 162 ms [facility] Work Phone: QRS [place] 4 degrees [facility] Work Phone: QRSD Interval 91 ms [facility] Work Phone: QT Interval 406 ms [facility] Work Phone: QTC Interval 476 ms [facility] Work Phone: T Wave [place] 139 degrees [facility] Work Phone: [facility] Work Phone: PHOSPHORUSon 03-18-2024 Phosphate [Mass/Vol] 3.1 mg/dL Normal 2.5-4.5 [facility] Comment on above: Performed By: #### L AB113, [id number], LAB17 ####Family Dinner Service Specialist: MESERET PAULA ([phone])[address] Phosphate [Moles/Vol]on 02-24 Phosphate [Mass/Vol] 3.1 mg/dL 2.5 - 4 .5 mg/dL [facility] Progress Noteon 03-18-2024 Progress Note Normal [facility] Progress Note Normal [facility] Progress Note Normal [facility] Progress [facility] Vital signson 03-18-2024 Heart rate 85 /min bpm [facility] Vital signsOrdered By: Justine Connolly on 03-18-2024 Heart rate 82 /min bpm [facility] Work Phone: CBC W Auto Differential pane l (Bld)on 03-17-2024 Basophils (Bld) [#/Vol] 0.1 10*3/uL 0.0 - 0.2 10*3/uL [facility] Basophils/100 WBC (Bld) 0.4 % 0.0 - 2.0 % [facility] Eosinophils (Bld) [#/Vol] 0.1 10*3/uL 0.0 - 0.5 10*3/uL [facility] Eosinophils/100 WBC (Bld) 0.8 % 0.0 - 6.0 % [facility] Erythrocyte distribution width (RBC) [Ratio] 13.9 % 11.5 - 15.0 % [facility] Hematocrit (Bld) [Volume fraction] 46.5 % 35.0 - 47.0 % [facility] Hemoglobin (Bld) [Mass/Vol] 15.2 g/dL 11.7 - 16.0 g/dL [facility] Immature granulocytes (Bld) [#/Vol] 0.1 10*3/uL High NINF - 0.1 10*3/uL [facility] Immature granulocytes/100 WBC (Bld) 0.4 % 0.0 - 2.0 % [facility] Interpretation and review of laboratory results Abnormal [facility] IPF 13 [facility] Lymphocytes (Bld) [#/Vol] 2.9 10*3/uL 1.0 - 4.3 10*3/uL [facility] Lymphocytes/100 WBC (Bld) 17.5 % 15.0 - 45.0 % [facility] MCH (RBC) [Entitic mass] 28.7 pg 26.0 - 34.0 pg [facility] MCHC (RBC) [Mass/Vol] 32.7 % 30.5 - 36.0 % [facility] MCV (RBC) [Entitic vol] 87.7 fL 77.0 - 99.0 fL [facility] Monocytes (Bld) [#/Vol] 1.6 10*3/uL High 0.0 - 0.9 10*3/uL [facility] Monocytes/100 WBC (Bld) 10.0 % 5.0 - 13.0 % [facility] Neutrophils (Bld) [#/Vol] 11.5 10*3/uL High 1.8 - 7.5 10*3/uL [facility] Neutrophils/100 WBC (Bld) 70.9 % 38.0 - 82.0 % [facility] Nucleated RBC/100 WBC (Bld) [Ratio] 0.0 % [facility] Platelet mean volume (Bld) [Entitic vol] 13.3 fL High 9.0 - 12.7 fL [facility] Platelets (Bld) [#/Vol] 187 10*3/uL 140 - 440 10*3/uL [facility] RBC (Bld) [#/Vol] 5.30 10*6/uL High 3.80 - 5.2 0 10*6/uL [facility] WBC (Bld) [#/Vol] 16.3 10*3/uL High 3.6 - 10.7 10*3/uL [facility] CBC WITH AUTO DIFFERENTIALon 03-17-2024 Basophils (Bld) [#/Vol] 0.1 10*3/uL Normal 0.0-0.2 [facility] Comment on above: Performed By: #### L [id number] ####Family Dinner Service Specialist: MESERET PAULA ([phone])[facility] ([address] Basophils/100 WBC (Bld) 0.4 % Normal 0.0-2.[address] [facility] Comment on above: Performed By: #### L [id number] ####Family Dinner Service Specialist: MESERET PAULA ([phone])[facility])[address] [place] [address] Eosinophils (Bld) [#/Vol] 0.1 10*3/uL Normal 0.0-0.5 [facility] Comment on above: Performed By: #### L [id number] ####Family Dinner Service Specialist: MESERET PAULA ([phone])[facility])[address] [place] [address] Eosinophils/100 WBC (Bld) 0.8 % Normal 0.0-6.0 [facility] Comment on above: Performed By: #### L [id number] ####Family Dinner Service Specialist: MESERET PAULA ([phone])[address] Erythrocyte distribution width (RBC) [Ratio] 13.9 % Normal 11.5-15.0 [facility] Comment on above: Performed By: #### L [id number] ####Family Dinner Service Specialist: MESERET PAULA ([phone])[address] Hematocrit (Bld) [Volume fraction] 46.5 % Normal 35.0-47.0 [facility] Comment on above: Performed By: #### L [id number] ####Family Dinner Service Specialist: MESERET PAULA ([phone])[facility])[address] [place] [address] Hemoglobin (Bld) [Mass/Vol] 15.2 g/dL Normal 11.7-16.0 [facility] Comment on above: Performed By: #### L [id number] ####Family Dinner Service Specialist: MESERET PAULA ([phone])[facility])[address] [place] [address] IMMATURE GRANS % 0.4 % Normal 0.0-2.0 [facility] Comment on above: Performed By: #### L [id number] ####Family Dinner Service Specialist: MESERET [phone])[facility])[address] [place] [address] IMMATURE GRANS ABSOLUTE 0.1 10*3/uL High <0.1 [facility] Comment on above: Performed By: #### L [id number] ####Family Dinner Service Specialist: MESERET PAULA ([phone])[facility])[address] [place] [address] IPF 13 Normal [facility] Comment on above: Performed By: #### L [id number] ####Family Dinner Service Specialist: MESERET PAULA ([phone])[facility])[address] [place] [address] Lymphocytes (Bld) [#/Vol] 2.9 10*3/uL Normal 1.0-4.3 [facility] Comment on above: Performed By: #### L [id number] ####Family Dinner Service Specialist: MESERET PAULA ([phone])[facility])[address] [place] [address] Lymphocytes/100 WBC (Bld) 17.5 % Normal 15.0-45.0 [facility] Comment on above: Performed By: #### L [id number] ####Family Dinner Service Specialist: MESERET APULA ([phone])[facility])[address] [place] [address] MCH (RBC) [Entitic mass] 28.7 pg Normal 26.0-34.0 [facility] Comment on above: Performed By: #### L [id number] ####Family Dinner Service Specialist: MESERET PAULA ([phone])[facility])[address] [place] [address] MCHC 32.7 % Normal 30.5-36.0 [facility] Comment on above: Performed By: #### L [id number] ####Family Dinner Service Specialist: MESERET PAULA ([phone])[facility])[address] [place] [address] MCV (RBC) [Entitic vol] 87.7 fL Normal 77.0-99.0 [facility] Comment on above: Performed By: #### L [id number] ####Family Dinner Service Specialist: MESERET PAULA ([phone])[facility] ([facility])[address] [place] [address] Monocytes (Bld) [#/Vol] 1.6 10*3/uL High 0.0-0.9 [facility] Comment on above: Performed By: #### L [id number] ####Family Dinner Service Specialist: MESERET PAULA ([phone])[facility] ([facility])[address] [place] [address] Monocytes/100 WBC (Bld) 10.0 % Normal 5.0-13.0 [facility] Comment on above: Performed By: #### L [id number] ####Family Dinner Service Specialist: MESERET PAULA ([phone])[facility] ([facility])[address] [place] [address] NEUTROPHILS ABSOLUTE 11.5 10*3/uL High 1.8-7.5 [facility] Comment on above: Performed By: #### L [id number] ####Family Dinner Service Specialist: MESERET PAULA ([phone])[facility] ([facility])[address] [place] [address] Neutrophils/100 WBC (Bld) 70.9 % Normal 38.0-82.0 [facility] Comment on above: Performed By: #### L [id number] ####Family Dinner Service Specialist: MESERET PAULA ([phone])[facility] ([facility])[address] [place] [address] NRBC 0.0 /100 WBCs Normal 0.0-2.0 [facility] Comment on above: Performed By: #### L [id number] ####Family Dinner Service Specialist: MESERET PAULA ([phone])[facility])[address] [place] [address] Platelet mean volume (Bld) [Entitic vol] 13.3 fL High 9.0-12.7 [facility] Comment on above: Performed By: #### L [id number] ####Family Dinner Service Specialist: MESERET PAULA ([phone])[facility] ([facility])[address] [place] [address] Platelets (Bld) [#/Vol] 187 10*3/uL Normal 140-440 [facility] Comment on above: Performed By: #### L [id number] ####Family Dinner Service Specialist: MESERET PAULA ([phone])[facility])[address] [place] [address] RBC (Bld) [#/Vol] 5.30 10*6/uL High 3.80-5.20 [facility] Comment on above: Performed By: #### L [id number] ####Family Dinner Service Specialist: MESERET PAULA ([phone])[facility] ([facility])[address] [place] [address] WBC (Bld) [#/Vol] 16.3 10*3/uL High 3.6-10.7 [facility] Comment on above: Performed By: #### L [id number] ####Family Dinner Service Specialist: MESERET PAULA ([phone])[facility] ([facility])[address] [place] [address] COMPREHENSIVE METABOLIC PANE [place] 03-17-2024 Albumin [Mass/Vol] 4.0 g/dL Normal 3.5-5.0 [facility] Comment on above: Performed By: #### L [id number], [id number], [id number] ####Family Dinner Service Specialist: MESERET PAULA ([phone])[facility] ([facility])[address] [place] [address] ALP [Catalytic activity/Vol] 128 U/L High 38-126 [facility] Comment on above: Performed By: #### L [id number], [id number], [id number] ####Family Dinner Service Specialist: MESERET PAULA ([phone])[facility])[address] [place] [address] ALT [Catalytic activity/Vol] 40 U/L High 0-34 [facility] Comment on above: Performed By: #### L [id number], [id number], [id number] ####Family Dinner Service Specialist: MESERET PAULA ([phone])[facility] ([facility])[address] [place] [address] Anion gap [Moles/Vol] 8 mmol/L Normal 3-13 [facility] Comment on above: Performed By: #### L AB113, [id number], LAB17 ####Family Dinner Service Specialist: MESERET PAULA ([phone])[facility] [place] [address] AST [Catalytic activity/Vol] 132 U/L High 15-46 [facility] Comment on above: Performed By: #### L AB113, [id number], LAB17 ####Family Dinner Service Specialist: MESERET PAULA ([phone])[facility] ([facility])[address] [place] [address] Bilirubin [Mass/Vol] 1.0 mg/dL Normal 0.2-1.3 [facility] Comment on above: Performed By: #### Yumiko ABAlina, [id number], [id number] ####Family Dinner Service Specialist: MESERET PAULA ([phone])[facility] ([facility])[address] [place] [address] Calcium [Mass/Vol] 9.0 mg/dL Normal 8.4-10.4 [facility] Comment on above: Performed By: #### L [id number], [id number], LAB17 ####Family Dinner Service Specialist: MESERET PAULA ([phone])[facility] [place] [address] [place] Chloride [Moles/Vol] 102 mmol/L Normal 98-107 [facility] Comment on above: Performed By: #### L [id number], [id number], LAB17 ####Family Dinner Service Specialist: MESERET PAULA ([phone])[facility] ([facility])[address] [place] [address] [place] CO2 [Moles/Vol] 24 mmol/L Normal 22-30 [facility] Comment on above: Performed By: #### L AB113, [id number], LAB17 ####Family Dinner Service Specialist: MESERET PAULA ([phone])[facility])[address] [place] [address] Creatinine [Mass/Vol] 0.89 mg/dL Normal 0.52-1.04 [facility] Comment on above: Performed By: #### Yumiko AB113, [id number], LAB17 ####Family Dinner Service Specialist: MESERET PAULA ([phone])[facility])[address] [place] [address] GLOMERULAR FILTRATION RATE ML/MIN/1.73 SQ M.PREDICTED 78.1 mL/min/1.73m*2 Normal >60.0 [facility] Comment on above: Result Comment: Calc ulation based on the Chronic Kidney Disease Epidemiology Collaboration (CKD-EPI) equation refit without adjustment for race Performed By: #### Yumiko LADD, [id number], [id number] ####Family Dinner Service Specialist: MESERET PAULA ([phone])[facility])[address] [place] [address] Glucose [Mass/Vol] 269 mg/dL High 70-100 [facility] Comment on above: Performed By: #### Yumiko ABAlina, [id number], LAB17 ####Family Dinner Service Specialist: MESERET PAULA ([phone])[facility] ([facility])[address] [place] [address] Potassium [Moles/Vol] 4.0 mmol/L Normal 3.5-5.1 [facility] Comment on above: Performed By: #### Yumiko ABAlina, [id number], [id number] ####Family Dinner Service Specialist: MESERET PAULA ([phone])[facility])[address] [place] [address] Protein [Mass/Vol] 7.9 g/dL Normal 6.3-8.2 [facility] Comment on above: Performed By: #### Yumiko ABAlina, [id number], LAB17 ####Family Dinner Service Specialist: MESERET PAULA ([phone])[facility])[address] [place] [address] [place] Sodium [Moles/Vol] 133 mmol/L Low 135-145 [facility] Comment on above: Performed By: #### L AB113, [id number], LAB17 ####Family Dinner Service Specialist: MESERET PAULA ([phone])[facility] ([facility])[address] [place] [address] Urea nitrogen [Mass/Vol] 22 mg/dL High 7-17 [facility] Comment on above: Performed By: #### L AB113, [id number], LAB17 ####Family Dinner Service Specialist: MESERET PAULA ([phone])[facility] ([facility])[address] [place] [address] Cardiac catheterization stud yon 03-17-2024 CV CPACS HEMO Cardiac catheterization stud yOrdered By: Maximo aMx on 03-17-2024 [facility] [employer] Work Phone: Comprehensive metabolic 1998 panelon 03-17-2024 Albumin [Mass/Vol] 4.0 g/dL 3.5 - 5.0 g/dL [facility] [employer] ALP [Catalytic activity/Vol] 128 U/L High 38 - 126 U/L [facility] [employer] ALT [Catalytic activity/Vol] 40 U/L High 0 - 34 U/L [facility] Anion gap [Moles/Vol] 8 mmol/L 3 - 13 mmol/L [facility] AST [Catalytic activity/Vol] 132 U/L High 15 - 46 U/L [facility] Bilirubin [Mass/Vol] 1.0 mg/dL 0.2 - 1 .3 mg/dL [facility] Calcium [Mass/Vol] 9.0 mg/dL 8.4 - 10. 4 mg/dL [facility] Chloride [Moles/Vol] 102 mmol/L 98 - 10 7 mmol/L [facility] CO2 [Moles/Vol] 24 mmol/L 22 - 30 mmol/L [facility] Creatinine [Mass/Vol] 0.89 mg/dL 0.52 - 1.04 mg/dL [facility] GFR/1.73 sq M.predicted MDRD (S/P/Bld) [Vol rate/Area] 78.1 mL/min/{1.73_m2} - PINF [facility] Glucose [Mass/Vol] 269 mg/dL High 70 - 100 mg/dL [facility] Interpretation and review of laboratory results Abnormal [facility] Potassium [Moles/Vol] 4.0 mmol/L 3.5 - 5.1 mmol/L [facility] Protein [Mass/Vol] 7.9 g/dL 6.3 - 8.2 g/dL [facility] Sodium [Moles/Vol] 133 mmol/L Low 135 - 145 mmol/L [facility] Urea nitrogen [Mass/Vol] 22 mg/dL High 7 - 17 mg/dL [facility] Consulton 03-17-2024 Consult Normal [facility] - Chemistry and C hemistry - challengeon 03-17-2024 Glucose [Mass/Vol] 242 mg/dL High 70 - 100 mg/dL [facility] Lipoprotein a [Mass/Vol] 19 mg/dL NINF - 29 mg/dL [facility] Glucose [Mass/Vol] 287 mg/dL High 70 - 100 mg/dL [facility] Glucose [Mass/Vol] 369 mg/dL High 70 - 100 mg/dL [facility] Glucose [Mass/Vol] 255 mg/dL High 70 - 100 mg/dL [facility] Magnesium [Mass/Vol] 1.7 mg/dL 1.6 - 2 .3 mg/dL [facility] MAGNESIUMon 03-17-2024 Magnesium [Mass/Vol] 1.7 mg/dL Normal 1.6-2.3 [facility] Comment on above: Performed By: #### L [id number], [id number], LAB17 ####Family Dinner Service Specialist: MESERET PAULA ([phone])[address] No Panel Informationon 03-17 Interpretation and review of laboratory results Abnormal [facility] Interpretation and review of laboratory results Abnormal [facility] Interpretation and review of laboratory results Abnormal [facility] Interpretation and review of laboratory results Abnormal [facility] Interpretation and review of laboratory results Normal [facility] PHOSPHORUSon 03-17-2024 Phosphate [Mass/Vol] 3.1 mg/dL Normal 2.5-4.5 [facility] Comment on above: Performed By: #### L AB113, [id number], LAB17 ####Family Dinner Service Specialist: MESERET PAULA ([phone])[facility])[address] [place] [address] Phosphate [Moles/Vol]on 02-24 Phosphate [Mass/Vol] 3.1 mg/dL 2.5 - 4 .5 mg/dL [facility] Progress Noteon 03-17-2024 Progress Note Nutrition rescreen completed. Patient referred to the Dietitian for uncontrolled DM. Yashira Ferrer, LYUBOV Normal [facility] Progress Note Normal [facility] Progress Note Normal [facility] US Heart TransthoracicOrdere d By: Shine Almendarez on 03-17-2024 Ao Root Index 1.20 cm/m2 [facility] Work Phone: Aortic Root 2.3 cm [facility] [employer] Work Phone: Ascending Aorta 3.1 cm [facility] Work Phone: Ascending Aorta Index 1.61 cm/m2 [facility] [employer] Work Phone: EF BP 65 % 55 - 100 % [facility] [employer] Work Phone: Fractional Shortening 2D 30 % 28 - 44 % [facility] [employer] Work Phone: Interpretation and review of laboratory results Abnormal [facility] [employer] Work Phone: IVSd 1.4 cm Abnormal 0.6 - 0.9 cm [facility] [employer] Work Phone: LA Diameter 4.5 cm [facility] [employer] Work Phone: LA Size Index 2.34 cm/m2 [facility] Work Phone: LA Volume 2C 81 mL Abnormal 22 - 52 mL [facility] [employer] Work Phone: LA Volume 4C 68 mL Abnormal 22 - 52 mL [facility] [employer] Work Phone: LA Volume A/L 79 mL [facility] [employer] Work Phone: LA Volume BP 74 mL Abnormal 22 - 52 mL [facility] [employer] Work Phone: LA Volume Index 2C 42 mL/m2 Abnormal 16 - 34 mL/m2 [facility] [employer] Work Phone: LA Volume Index 4C 35 mL/m2 Abnormal 16 - 34 mL/m2 [facility] [employer] Work Phone: LA Volume Index A/L 41 mL/m2 16 - 34 mL/m2 [facility] Work Phone: LA Volume Index BP 39 ml/m2 16 - 34 ml/m2 [facility] Work Phone: LA/AO Root Ratio 1.96 [facility] Work Phone: LV E' Lateral Velocity 6 cm/s [facility] Work Phone: LV E' Septal Velocity 6 cm/s [facility] Work Phone: LV EDV A2C 147 mL [facility] Work Phone: LV EDV A4C 169 mL [facility] Work Phone: LV EDV BP 163 mL Abnormal 56 - 104 mL [facility] Work Phone: LV EDV Index A2C 77 mL/m2 [facility] Work Phone: LV EDV Index A4C 88 mL/m2 [facility] Work Phone: LV EDV Index BP 85 mL/m2 [facility] Work Phone: LV Ejection Fraction A2C 67 % [facility] Work Phone: LV Ejection Fraction A4C 63 % [facility] Work Phone: LV ESV A2C 48 mL [facility] Work Phone: LV ESV A4C 62 mL [facility] Work Phone: LV ESV BP 56 mL Abnormal 19 - 49 mL [facility] Work Phone: LV ESV Index A2C 25 mL/m2 [facility] Work Phone: LV ESV Index A4C 32 mL/m2 [facility] Work Phone: LV ESV Index BP 29 mL/m2 [facility] Work Phone: LV Mass 2D 276.4 g Abnormal 67 - 162 g [facility] Work Phone: LV Mass 2D Index 144.0 g/m2 Abnormal 43 - 95 g/m2 [facility] Work Phone: LV RWT Ratio 0.52 [facility] Work Phone: LVIDd 5.0 cm 3.9 - 5.3 cm [facility] Work Phone: LVIDd Index 2.60 cm/m2 [facility] [employer] Work Phone: LVIDs 3.5 cm [facility] Work Phone: LVIDs Index 1.82 cm/m2 [facility] Work Phone: LVOT Area 2.3 cm2 [facility] Work Phone: LVOT Cardiac Output 3.7 liter/minute [facility] Work Phone: LVOT Diameter 1.7 cm [facility] [employer] Work Phone: LVOT Mean Gradient 3 mmHg [facility] [employer] Work Phone: LVOT Peak Gradient 5 mmHg [facility] Work Phone: LVOT Peak Velocity 1.2 m/s [facility] [employer] Work Phone: LVOT Stroke Volume Index 19.4 mL/m2 [facility] [employer] Work Phone: LVOT SV 37.2 ml [facility] [employer] Work Phone: LVOT VTI 16.4 cm [facility] [employer] Work Phone: LVPWd 1.3 cm Abnormal 0.6 - 0.9 cm [facility] Work Phone: RA Area 4C 37.0 mL [facility] Work Phone: RA Area 4C 34.7 mL [facility] Work Phone: RV Basal Dimension 4.1 cm [facility] Work Phone: RV Mid Dimension 3.3 cm [facility] Work Phone: TAPSE 2.2 cm 1.7 cm [facility] Work Phone: [facility] [employer] Work Phone: US Heart Transthoracicon CV CPACS APTTon 03-16-2024 aPTT Coag (Bld) [Time] 27.4 s Normal 20.0-30.5 [facility] Comment on above: Result Comment: MARY Minor COMMENTS:NOTE: The therapeutic time for Heparin anticoagulation, based on Xa activity inhibition, is an APTT of 46-80 seconds. Performed By: #### L [id number] ####Family Dinner Service Specialist: MESERET PAULA ([phone])[address] Anesthesia Noteon 03-16-2024 Anesthesia Note Normal [facility] CBC W Auto Differential pane l (Bld)on 03-16-2024 Erythrocyte distribution width (RBC) [Ratio] 13.7 % 11.5 - 15.0 % [facility] Hematocrit (Bld) [Volume fraction] 45.0 % 35.0 - 47.0 % [facility] Hemoglobin (Bld) [Mass/Vol] 14.6 g/dL 11.7 - 16.0 g/dL [facility] Interpretation and review of laboratory results Abnormal [facility] MCH (RBC) [Entitic mass] 28.7 pg 26.0 - 34.0 pg [facility] MCHC (RBC) [Mass/Vol] 32.4 % 30.5 - 36.0 % [facility] MCV (RBC) [Entitic vol] 88.6 fL 77.0 - 99.0 fL [facility] Platelet mean volume (Bld) [Entitic vol] 12.9 fL High 9.0 - 12.7 fL [facility] Platelets (Bld) [#/Vol] 203 10*3/uL 140 - 440 10*3/uL [facility] RBC (Bld) [#/Vol] 5.08 10*6/uL 3.80 - 5.2 0 10*6/uL [facility] WBC (Bld) [#/Vol] 16.2 10*3/uL High 3.6 - 10.7 10*3/uL [facility] CBC WITH AUTO DIFFERENTIALon 03-16-2024 Erythrocyte distribution width (RBC) [Ratio] 13.7 % Normal 11.5-15.0 [facility] Comment on above: Performed By: #### L [id number], [id number] ####Family Dinner Service Specialist: MESERET PAULA ([phone])[facility])[address] [place] [address] Hematocrit (Bld) [Volume fraction] 45.0 % Normal 35.0-47.0 [facility] Comment on above: Performed By: #### L [id number], [id number] ####Family Dinner Service Specialist: MESERET PAULA ([phone])[facility])[address] [place] [address] Hemoglobin (Bld) [Mass/Vol] 14.6 g/dL Normal 11.7-16.0 [facility] Comment on above: Performed By: #### L [id number], [id number] ####Family Dinner Service Specialist: MESERET PAULA ([phone])[facility])[address] [place] [address] MCH (RBC) [Entitic mass] 28.7 pg Normal 26.0-34.0 [facility] Comment on above: Performed By: #### Yumiko [id number], [id number] ####Family Dinner Service Specialist: MESERET PAULA ([phone])[facility])[address] [place] [address] MCHC 32.4 % Normal 30.5-36.0 [facility] Comment on above: Performed By: #### L [id number], [id number] ####Family Dinner Service Specialist: MESERET PAULA ([phone])[facility])[address] [place] [address] MCV (RBC) [Entitic vol] 88.6 fL Normal 77.0-99.0 [facility] Comment on above: Performed By: #### L [id number], [id number] ####Family Dinner Service Specialist: MESERET PAULA ([phone])[facility])[address] [place] [address] Platelet mean volume (Bld) [Entitic vol] 12.9 fL High 9.0-12.7 [facility] Comment on above: Performed By: #### L [id number], [id number] ####Family Dinner Service Specialist: MESERET PAULA ([phone])[facility])[address] [place] [address] Platelets (Bld) [#/Vol] 203 10*3/uL Normal 140-440 [facility] Comment on above: Performed By: #### L [id number], [id number] ####Family Dinner Service Specialist: MESERET PAULA ([phone])[facility])[address] [place] [address] RBC (Bld) [#/Vol] 5.08 10*6/uL Normal 3.80-5.20 [facility] Comment on above: Performed By: #### L [id number], [id number] ####Family Dinner Service Specialist: MESERET PAULA ([phone])[facility])[address] [place] [address] WBC (Bld) [#/Vol] 16.2 10*3/uL High 3.6-10.7 [facility] Comment on above: Performed By: #### Yumiko [id number], [id number] ####Family Dinner Service Specialist: MESERET PAULA ([phone])[facility] ([facility])[address] [place] [address] COMPREHENSIVE METABOLIC PANE [place] 03-16-2024 Albumin [Mass/Vol] 3.8 g/dL Normal 3.5-5.0 [facility] Comment on above: Performed By: #### Yumiko [id number], LAB17 ####Family Dinner Service Specialist: MESERET PAULA ([phone])[facility])[address] [place] [address] ALP [Catalytic activity/Vol] 110 U/L Normal 38-126 [facility] Comment on above: Performed By: #### L [id number], LAB17 ####Family Dinner Service Specialist: MESERET PAULA ([phone])[facility])[address] [place] [address] ALT [Catalytic activity/Vol] 48 U/L High 0-34 [facility] Comment on above: Performed By: #### L [id number], LAB17 ####Family Dinner Service Specialist: MESERET PAULA ([phone])[facility] ([facility])[address] [place] [address] [place] Anion gap [Moles/Vol] 6 mmol/L Normal 3-13 [facility] Comment on above: Performed By: #### L [id number], LAB17 ####Family Dinner Service Specialist: MESERET PAULA ([phone])[facility] [place] [address] [place] AST [Catalytic activity/Vol] 182 U/L High 15-46 [facility] Comment on above: Performed By: #### L [id number], LAB17 ####Family Dinner Service Specialist: MESERET PAULA ([phone])[facility] [place] [address] Bilirubin [Mass/Vol] 1.0 mg/dL Normal 0.2-1.3 [facility] Comment on above: Performed By: #### L ABJusto, LAB17 ####Family Dinner Service Specialist: MESERET PAULA ([phone])[facility] [place] [address] Calcium [Mass/Vol] 9.2 mg/dL Normal 8.4-10.4 [facility] Comment on above: Performed By: #### L [id number], LAB17 ####Family Dinner Service Specialist: MESERET PAULA ([phone])[facility] [place] [address] [place] Chloride [Moles/Vol] 105 mmol/L Normal 98-107 [facility] Comment on above: Performed By: #### L [id number], LAB17 ####Family Dinner Service Specialist: MESERET PAULA ([phone])[facility] [place] [address] [place] CO2 [Moles/Vol] 27 mmol/L Normal 22-30 [facility] Comment on above: Performed By: #### L [id number], LAB17 ####Family Dinner Service Specialist: MESERET PAULA ([phone])[facility] [place] [address] [place] Creatinine [Mass/Vol] 0.96 mg/dL Normal 0.52-1.04 [facility] Comment on above: Performed By: #### Yumiko LAWRENCE74Zoya, LAB17 ####Family Dinner Service Specialist: MESERET PAULA ([phone])[facility])[address] [place] [address] [place] GLOMERULAR FILTRATION RATE ML/MIN/1.73 SQ M.PREDICTED 71.3 mL/min/1.73m*2 Normal >60.0 [facility] Comment on above: Result Comment: Calc ulation based on the Chronic Kidney Disease Epidemiology Collaboration (CKD-EPI) equation refit without adjustment for race Performed By: #### Yumiko MATHEW, LAB17 ####Family Dinner Service Specialist: MESERET PAULA ([phone])[facility])[address] [place] [address] Glucose [Mass/Vol] 153 mg/dL High 70-100 [facility] Comment on above: Performed By: #### Yumiko MATHEW, LAB17 ####Family Dinner Service Specialist: MESERET PAULA ([phone])[facility])[address] [place] [address] Potassium [Moles/Vol] 3.9 mmol/L Normal 3.5-5.1 [facility] Comment on above: Performed By: #### Yumiko MATHEW, LAB17 ####Family Dinner Service Specialist: MESERET PAULA ([phone])[facility] ([facility])[address] [place] [address] Protein [Mass/Vol] 7.4 g/dL Normal 6.3-8.2 [facility] Comment on above: Performed By: #### L [id number], LAB17 ####Family Dinner Service Specialist: MESERET PAULA ([phone])[facility])[address] [place] [address] [place] Sodium [Moles/Vol] 138 mmol/L Normal 135-145 [facility] Comment on above: Performed By: #### L 74Zoya, LAB17 ####Family Dinner Service Specialist: MESERET PAULA ([phone])[facility] [place] [address] Urea nitrogen [Mass/Vol] 21 mg/dL High 7-17 [facility] Comment on above: Performed By: #### L [id number], LAB17 ####Family Dinner Service Specialist: MESERET PAULA ([phone])[facility] ([facility])[address] [place] [address] Comprehensive metabolic 1998 panelon 03-16-2024 Albumin [Mass/Vol] 3.8 g/dL 3.5 - 5.0 g/dL [facility] ALP [Catalytic activity/Vol] 110 U/L 38 - 126 U/L [facility] ALT [Catalytic activity/Vol] 48 U/L High 0 - 34 U/L [facility] Anion gap [Moles/Vol] 6 mmol/L 3 - 13 mmol/L [facility] AST [Catalytic activity/Vol] 182 U/L High 15 - 46 U/L [facility] Bilirubin [Mass/Vol] 1.0 mg/dL 0.2 - 1 .3 mg/dL [facility] Calcium [Mass/Vol] 9.2 mg/dL 8.4 - 10. 4 mg/dL [facility] Chloride [Moles/Vol] 105 mmol/L 98 - 10 7 mmol/L [facility] CO2 [Moles/Vol] 27 mmol/L 22 - 30 mmol/L [facility] Creatinine [Mass/Vol] 0.96 mg/dL 0.52 - 1.04 mg/dL [facility] GFR/1.73 sq M.predicted MDRD (S/P/Bld) [Vol rate/Area] 71.3 mL/min/{1.73_m2} - PINF [facility] Glucose [Mass/Vol] 153 mg/dL High 70 - 100 mg/dL [facility] Interpretation and review of laboratory results Abnormal [facility] Potassium [Moles/Vol] 3.9 mmol/L 3.5 - 5.1 mmol/L [facility] Protein [Mass/Vol] 7.4 g/dL 6.3 - 8.2 g/dL [facility] Sodium [Moles/Vol] 138 mmol/L 135 - 145 mmol/L [facility] [facility] Urea nitrogen [Mass/Vol] 21 mg/dL High 7 - 17 mg/dL [facility] Health Consulton 03-16-2024 Consult Normal [facility] HEMOGLOBIN A1Con 03-16-2024 Glucose [Mass/Vol] 335 mg/dL Normal [facility] Comment on above: Performed By: #### L [id number] ####Family Dinner Service Specialist: MESERET PAULA ([phone])[facility] ([facility])[address] [place] [address] HbA1c (Bld) [Mass fraction] 13.3 % High <5.7 [facility] Comment on above: Result Comment: Norm al less than 5.7%Prediabetes 5.7% to 6.4%Diabetes 6.5% or higher--HgbA1C levels may not be accurate in patients who have renal disease, received recent blood transfusions, are anemic, or who have dyshemoglobinemia. Performed By: #### L AB90 ####Family Dinner Service Specialist: MESERET PAULA ([phone])[facility] ([facility])[address] [place] [address] LIPID PANELon 03-16-2024 Cholesterol [Mass/Vol] 173 mg/dL Normal <200 [facility] Comment on above: Performed By: #### L AB18, [id number], [id number] ####Family Dinner Service Specialist: MESERET PAULA ([phone])[facility] ([facility])[address] [place] [address] Cholesterol in HDL [Mass/Vol] 39 mg/dL Low 40-60 [facility] Comment on above: Performed By: #### L AB18, [id number], [id number] ####Family Dinner Service Specialist: MESERET PAULA ([phone])[facility])[address] [place] [address] Cholesterol.total/Radha sterol in HDL [Mass ratio] 4 {ratio} Normal [facility] Comment on above: Result Comment: Ref Range:< 3 Low Risk for CHD3-6 Mod Risk for CHD> 6 High Risk for CHD Performed By: #### L AB18, [id number], [id number] ####Family Dinner Service Specialist: MESERET PAULA ([phone])[facility] ([facility])[address] [place] [address] LOW DENSITY LIPOPROTEIN 104 mg/dL High 0-<[address] [facility] Comment on above: Performed By: #### L AB18, [id number], [id number] ####Family Dinner Service Specialist: MESERET PAULA ([phone])[facility] ([facility])[address] [place] [address] Triglyceride [Mass/Vol] 150 mg/dL High <[address] [facility] Comment on above: Performed By: #### L AB18, [id number], [id number] ####Family Dinner Service Specialist: MESERET PAULA ([phone])[facility] ([facility])[address] [place] [address] Laboratory - Chemistry and C hemistry - challengeon 03-16-2024 Glucose [Mass/Vol] 286 mg/dL High 70 - 100 mg/dL [facility] Glucose [Mass/Vol] 209 mg/dL High 70 - 100 mg/dL [facility] TSH Qn 1.923 m[IU]/[facility] Estimated from glycated hemoglobin (Bld) [Mass/Vol] 335 mg/dL [facility] Glucose [Mass/Vol] 203 mg/dL High 70 - 100 mg/dL [facility] Troponin I.cardiac [Mass/Vol] 37.400 ng/mL Crit[facility] high [facility] - 0.[facility] ng/mL [facility] Laboratory - Chemistry and C hemistry - challengeOrdered By: Brandon Dao on 03-16-2024 Troponin I.cardiac [Mass/Vol] 41.600 ng/mL Critically high NINF - 0.034 ng/mL [facility] Laboratory - Hematology and Cell countson 03-16-2024 HbA1c (Bld) [Mass fraction] 13.3 % High NINF - 5.7 % [facility] Lipid 1996 panelon 4 Cholesterol [Mass/Vol] 173 mg/dL NINF - 200 mg/dL [facility] Cholesterol in HDL [Mass/Vol] 39 mg/dL Low 40 - 60 mg/dL [facility] Cholesterol in LDL [Mass/Vol] 104 mg/dL High 0 - <100 [facility] Cholesterol.total/Radha sterol in HDL [Mass ratio] 4 {ratio} [facility] Interpretation and review of laboratory results Abnormal [facility] Triglyceride [Mass/Vol] 150 mg/dL High NINF - 150 mg/dL [facility] MANUAL DIFFERENTIALon 2023 BASOPHILS (10*3/UL) IN BLOOD BY MANUAL COUNT 0.2 10*3/uL Normal 0.0-0.2 [facility] Comment on above: Performed By: #### L [id number], [id number] ####Family Dinner Service Specialist: MESERET PAULA ([phone])[facility])[address] [place] [address] [place] BASOPHILS TOTAL PER COUNTED LEUKOCYTES BY MANUAL COUNT 1 Normal [facility] Comment on above: Performed By: #### L [id number], [id number] ####Family Dinner Service Specialist: MESERET PAULA ([phone])[facility])[address] [place] [address] BASOPHILS/100 LEUKOCYTES IN BLOOD BY MANUAL COUNT 1 % Normal 0-2 [facility] Comment on above: Performed By: #### Yumiko [id number], [id number] ####Family Dinner Service Specialist: MESERET PAULA ([phone])[facility])[address] [place] [address] CELLS COUNTED TOTAL (#) IN BLOOD 100 Normal [facility] Comment on above: Performed By: #### Yumiko [id number], [id number] ####Family Dinner Service Specialist: MESERET PAULA ([phone])[facility])[address] [place] [address] DIFFERENTIAL METHOD Automated differential reported after manual slide review Normal [facility] Comment on above: Performed By: #### L [id number], [id number] ####Family Dinner Service Specialist: MESERET PAULA ([phone])[facility] ([facility])[address] [place] [address] [place] EOSINOPHILS (10*3/UL) IN BLOOD BY MANUAL COUNT 0.2 10*3/uL Normal 0.0-0.5 [facility] Comment on above: Performed By: #### L [id number], [id number] ####Family Dinner Service Specialist: MESERET PAULA ([phone])[facility])[address] [place] [address] [place] EOSINOPHILS TOTAL PER COUNTED LEUKOCYTES BY MANUAL COUNT 1 Normal 0-1 [facility] Comment on above: Performed By: #### L [id number], [id number] ####Family Dinner Service Specialist: MESERET PAULA ([phone])[facility])[address] [place] [address] [place] EOSINOPHILS/100 LEUKOCYTES IN BLOOD BY MANUAL COUNT 1 % Normal 0-6 [facility] Comment on above: Performed By: #### L [id number], [id number] ####Family Dinner Service Specialist: MESERET PAULA ([phone])[facility])[address] [place] [address] LEUKOCYTE MORPHOLOGY FINDING IN BLOOD Normal Normal [facility] Comment on above: Performed By: #### Yumiko [id number], [id number] ####Family Dinner Service Specialist: MESERET PAULA ([phone])[facility] ([facility])[address] [place] [address] [place] LEUKOCYTES (10*3/UL) NUCLEATED ERYTHROCYTE ADJUST 16.2 10*3/uL High 3.6-10.7 [facility] Comment on above: Performed By: #### Yumiko [id number], [id number] ####Family Dinner Service Specialist: MESERET PAULA ([phone])[facility])[address] [place] [address] [place] LYMPHOCYTES (10*3/UL) IN BLOOD BY MANUAL COUNT 3.6 10*3/uL Normal 1.0-4.3 [facility] Comment on above: Performed By: #### Yumiko [id number], [id number] ####Family Dinner Service Specialist: MESERET PAULA ([phone])[facility])[address] [place] [address] [place] LYMPHOCYTES TOTAL PER COUNTED LEUKOCYTES BY MANUAL COUNT 22 Normal [facility] Comment on above: Performed By: #### L [id number], [id number] ####Family Dinner Service Specialist: MESERET PAULA ([phone])[facility])[address] [place] [address] [place] LYMPHOCYTES/100 LEUKOCYTES IN BLOOD BY MANUAL COUNT 22 % Normal 15-45 [facility] Comment on above: Performed By: #### L [id number], [id number] ####Family Dinner Service Specialist: MESERET PAULA ([phone])[facility])[address] [place] [address] [place] MONOCYTES (10*3/UL) IN BLOOD BY MANUAL COUNT 1.6 10*3/uL High 0.0-0.9 [facility] Comment on above: Performed By: #### L [id number], [id number] ####Family Dinner Service Specialist: MESERET PAULA ([phone])[facility])[address] [place] [address] [place] MONOCYTES TOTAL PER COUNTED LEUKOCYTES BY MANUAL COUNT 10 Normal [facility] Comment on above: Performed By: #### Yumiko [id number], [id number] ####Family Dinner Service Specialist: MESERET PAULA ([phone])[facility])[address] [place] [address] [place] MONOCYTES/100 LEUKOCYTES IN BLOOD BY MANUAL COUNT 10 % Normal 5-13 [facility] Comment on above: Performed By: #### Yumiko [id number], [id number] ####Family Dinner Service Specialist: MESERET PAULA ([phone])[facility])[address] [place] [address] [place] NEUTROPHILS (SEGS+BANDS) (10*3/UL) BY MANUAL COUNT 10.7 10*3/uL High 1.8-7.0 [facility] Comment on above: Performed By: #### L [id number], [id number] ####Family Dinner Service Specialist: MESERET PAULA ([phone])[facility])[address] [place] [address] [place] NEUTROPHILS TOTAL PER COUNTED LEUKOCYTES BY MANUAL COUNT 66 Normal [facility] Comment on above: Performed By: #### L [id number], [id number] ####Family Dinner Service Specialist: MESERET PAULA ([phone])[facility])[address] [place] [address] [place] PLATELET MORPHOLOGY IN BLOOD Normal Normal [facility] Comment on above: Performed By: #### L [id number], [id number] ####Family Dinner Service Specialist: MESERET [phone])[facility] ([facility])[address] [place] [address] RBC MORPHOLOGY IN BLOOD Normal Normal [facility] Comment on above: Performed By: #### L [id number], [id number] ####Family Dinner Service Specialist: MESERET PAULA ([phone])[facility] ([facility])[address] [place] [address] SEGEMENTED NEUTROPHILS/100 LEUKOCYTES BY MANUAL COUNT 66 % Normal 38-82 [facility] Comment on above: Performed By: #### L [id number], [id number] ####Family Dinner Service Specialist: MESERET PAULA ([phone])[facility] [place] [address] Manual differential performe d Ql (Bld)Ordered By: Dani Dickens on 03-16-2024 Basophils (Bld) [#/Vol] 0.2 10*3/uL 0.0 - 0.2 10*3/uL [facility] Basophils Manual 1 [facility] Basophils/100 WBC (Bld) 1 % 0 - 2 % [facility] Cells Counted Total (Bld) [#] 100 {cells} [facility] Differential Method Automated differential reported after manual slide review [facility] Eosinophils (Bld) [#/Vol] 0.2 10*3/uL 0.0 - 0.5 10*3/uL [facility] Eosinophils Manual 1 0 - 1 [facility] Eosinophils/100 WBC (Bld) 1 % 0 - 6 % [facility] Interpretation and review of laboratory results Abnormal [facility] Leukocyte morphology finding Nom (Bld) Normal [facility] Lymphocytes (Bld) [#/Vol] 3.6 10*3/uL 1.0 - 4.3 10*3/uL [facility] Lymphocytes Manual 22 [facility] Lymphocytes/100 WBC (Bld) 22 % 15 - 45 % [facility] Monocytes (Bld) [#/Vol] 1.6 10*3/uL High 0.0 - 0.9 10*3/uL [facility] Monocytes Manual 10 [facility] Monocytes/100 WBC (Bld) 10 % 5 - 13 % [facility] Neutrophils (Bld) [#/Vol] 10.7 10*3/uL High 1.8 - 7.0 10*3/uL [facility] Neutrophils Manual 66 [facility] Platelet morphology finding Nom (Bld) Normal [facility] RBC morphology finding Nom (Bld) Normal [facility] Segmented neutrophils/100 WBC (Bld) 66 % 38 - 82 % [facility] WBC corrected for nucl RBC (Bld) [#/Vol] 16.2 10*3/uL High 3.6 - 10.7 10*3/uL [facility] No Panel Informationon 03-16 Interpretation and review of laboratory results Abnormal [facility] Interpretation and review of laboratory results Abnormal [facility] Interpretation and review of laboratory results Normal [facility] POCT ACT 111 [facility] Interpretation and review of laboratory results Abnormal [facility] POCT ACT 232 High [facility] POCT ACT 225 High [facility] Interpretation and review of laboratory results Abnormal [facility] Interpretation and review of laboratory results Abnormal [facility] Progress Noteon 03-16-2024 Progress Note Normal [facility] THYROID STIMULATING HORMONEo n 03-16-2024 THYROID STIMULATING HORMONE 1.923 uIU/mL Normal 0.465-4.680 [facility] Comment on above: Performed By: #### L AB18, [id number], [id number] ####Family Dinner Service Specialist: MESERET PAULA ([phone])[facility] [place] [address] [place] TROPONIN Ion 03-16-2024 Troponin I.cardiac [Mass/Vol] 37.400 ng/mL Critically high <0.034 [facility] Comment on above: Result Comment: MARY R COMMENTS:Slightly Hemolyzed. Interpret Troponin I with caution.Patients with high levels of Biotin oral intake (ie >5 mg/day) may have falsely decreased Troponin levels. Performed By: #### L AB18, [id number], [id number] ####Family Dinner Service Specialist: MESERET PAULA ([phone])[facility] ([facility])[address] [place] [id number] [place] Troponin I.cardiac [Mass/Vol] 41.600 ng/mL Critically high <0.034 [facility] Comment on above: Result Comment: MARY Minor COMMENTS:Patients with high levels of Biotin oral intake (ie >5 mg/day) may have falsely decreased Troponin levels. Performed By: #### L [id number], [id number] ####Family Dinner Service Specialist: MESERET PAULA ([phone])[facility] [place] [address] TSH Qnon 03-16-2024 Interpretation and review of laboratory results Normal [facility] Troponin I.cardiac [Mass/Vol ]on 03-16-2024 Interpretation and review of laboratory results Abnormal [facility] Troponin I.cardiac [Mass/Vol ]Ordered By: Brandon Dao on 03-16-2024 Interpretation and review of laboratory results Abnormal [facility] aPTT Coag (Bld) [Time]on aPTT Coag (PPP) [Time] 27.4 s 20.0 - 30.5 s [facility] Interpretation and review of laboratory results Normal [facility] APTTon 03-15-2024 aPTT Coag (Bld) [Time] 22.2 s Normal 20.0-30.5 [facility] Comment on above: Result Comment: MARY Minor COMMENTS:NOTE: The therapeutic time for Heparin anticoagulation, based on Xa activity inhibition, is an APTT of 46-80 seconds. Performed By: #### L [id number] ####Family Dinner Service Specialist: MESERET PAULA ([phone])[facility] [place] [address] CBC W Auto Differential pane l (Bld)on 03-15-2024 Basophils (Bld) [#/Vol] 0.1 10*3/uL 0.0 - 0.2 10*3/uL [facility] Basophils/100 WBC (Bld) 0.4 % 0.0 - 2.0 % [facility] Eosinophils (Bld) [#/Vol] 0.2 10*3/uL 0.0 - 0.5 10*3/uL [facility] Eosinophils/100 WBC (Bld) 0.9 % 0.0 - 6.0 % [facility] Erythrocyte distribution width (RBC) [Ratio] 13.7 % 11.5 - 15.0 % [facility] Hematocrit (Bld) [Volume fraction] 48.1 % High 35.0 - 47.0 % [facility] Hemoglobin (Bld) [Mass/Vol] 15.9 g/dL 11.7 - 16.0 g/dL [facility] Immature granulocytes (Bld) [#/Vol] 0.1 10*3/uL High NINF - 0.1 10*3/uL [facility] Immature granulocytes/100 WBC (Bld) 0.3 % 0.0 - 2.0 % [facility] Interpretation and review of laboratory results Abnormal [facility] Lymphocytes (Bld) [#/Vol] 3.3 10*3/uL 1.0 - 4.3 10*3/uL [facility] Lymphocytes/100 WBC (Bld) 20.7 % 15.0 - 45.0 % [facility] MCH (RBC) [Entitic mass] 29.6 pg 26.0 - 34.0 pg [facility] MCHC (RBC) [Mass/Vol] 33.1 % 30.5 - 36.0 % [facility] MCV (RBC) [Entitic vol] 89.6 fL 77.0 - 99.0 fL [facility] Monocytes (Bld) [#/Vol] 1.4 10*3/uL High 0.0 - 0.9 10*3/uL [facility] Monocytes/100 WBC (Bld) 8.9 % 5.0 - 13.0 % [facility] Neutrophils (Bld) [#/Vol] 10.9 10*3/uL High 1.8 - 7.5 10*3/uL [facility] Neutrophils/100 WBC (Bld) 68.8 % 38.0 - 82.0 % [facility] Nucleated RBC/100 WBC (Bld) [Ratio] 0.0 % [facility] Platelet mean volume (Bld) [Entitic vol] 12.8 fL High 9.0 - 12.7 fL [facility] Platelets (Bld) [#/Vol] 231 10*3/uL 140 - 440 10*3/uL [facility] RBC (Bld) [#/Vol] 5.37 10*6/uL High 3.80 - 5.2 0 10*6/uL [facility] WBC (Bld) [#/Vol] 15.8 10*3/uL High 3.6 - 10.7 10*3/uL [facility] CBC WITH AUTO DIFFERENTIALon 03-15-2024 Basophils (Bld) [#/Vol] 0.1 10*3/uL Normal 0.0-0.2 [facility] Comment on above: Performed By: #### L [id number] ####Family Dinner Service Specialist: MESERET PAULA ([phone])[facility] ([facility])[address] [place] [address] Basophils/100 WBC (Bld) 0.4 % Normal 0.0-2.0 [facility] Comment on above: Performed By: #### L [id number] ####Family Dinner Service Specialist: MESERET PAULA ([phone])[facility])[address] [place] [address] Eosinophils (Bld) [#/Vol] 0.2 10*3/uL Normal 0.0-0.5 [facility] Comment on above: Performed By: #### L [id number] ####Family Dinner Service Specialist: MESERET PAULA ([phone])[facility])[address] [place] [address] Eosinophils/100 WBC (Bld) 0.9 % Normal 0.0-6.0 [facility] Comment on above: Performed By: #### L [id number] ####Family Dinner Service Specialist: MESERET PAULA ([phone])[facility])[address] [place] [address] Erythrocyte distribution width (RBC) [Ratio] 13.7 % Normal 11.5-15.0 [facility] Comment on above: Performed By: #### L [id number] ####Family Dinner Service Specialist: MESERET PAULA ([phone])[facility])[address] [place] [address] Hematocrit (Bld) [Volume fraction] 48.1 % High 35.0-47.0 [facility] Comment on above: Performed By: #### L [id number] ####Family Dinner Service Specialist: MESERET PAULA ([phone])[facility])[address] [place] [address] Hemoglobin (Bld) [Mass/Vol] 15.9 g/dL Normal 11.7-16.0 [facility] Comment on above: Performed By: #### L [id number] ####Family Dinner Service Specialist: MESERET PAULA ([phone])[facility])[address] [place] [address] IMMATURE GRANS % 0.3 % Normal 0.0-2.0 [facility] Comment on above: Performed By: #### L [id number] ####Family Dinner Service Specialist: MESERET PAULA ([phone])[facility])[address] [place] [address] IMMATURE GRANS ABSOLUTE 0.1 10*3/uL High <0.1 [facility] Comment on above: Performed By: #### L [id number] ####Family Dinner Service Specialist: MESERET PAULA ([phone])[facility] ([facility])[address] [place] [address] Lymphocytes (Bld) [#/Vol] 3.3 10*3/uL Normal 1.0-4.3 [facility] Comment on above: Performed By: #### L [id number] ####Family Dinner Service Specialist: MESERET PAULA ([phone])[facility])[address] [place] [address] Lymphocytes/100 WBC (Bld) 20.7 % Normal 15.0-45.0 [facility] Comment on above: Performed By: #### L [id number] ####Family Dinner Service Specialist: MESERET PAULA ([phone])[facility])[address] [place] [address] MCH (RBC) [Entitic mass] 29.6 pg Normal 26.0-34.0 [facility] Comment on above: Performed By: #### L [id number] ####Family Dinner Service Specialist: MESERET PAULA ([phone])[facility])[address] [place] [address] MCHC 33.1 % Normal 30.5-36.0 [facility] Comment on above: Performed By: #### L [id number] ####Family Dinner Service Specialist: MESERET PAULA ([phone])[facility] ([facility])[address] [place] [address] MCV (RBC) [Entitic vol] 89.6 fL Normal 77.0-99.0 [facility] Comment on above: Performed By: #### L [id number] ####Family Dinner Service Specialist: MESERET PAULA ([phone])[facility] ([facility])[address] [place] [address] Monocytes (Bld) [#/Vol] 1.4 10*3/uL High 0.0-0.9 [facility] Comment on above: Performed By: #### L [id number] ####Family Dinner Service Specialist: MESERET PAULA ([phone])[facility] ([facility])[address] [place] [address] Monocytes/100 WBC (Bld) 8.9 % Normal 5.0-13.0 [facility] Comment on above: Performed By: #### L [id number] ####Family Dinner Service Specialist: MESERET PAULA ([phone])[facility] ([facility])[address] [place] [address] NEUTROPHILS ABSOLUTE 10.9 10*3/uL High 1.8-7.5 [facility] Comment on above: Performed By: #### L [id number] ####Family Dinner Service Specialist: MESERET PAULA ([phone])[facility] ([facility])[address] [place] [address] Neutrophils/100 WBC (Bld) 68.8 % Normal 38.0-82.0 [facility] Comment on above: Performed By: #### L [id number] ####Family Dinner Service Specialist: MESERET PAULA ([phone])[facility])[address] [place] [address] NRBC 0.0 /100 WBCs Normal 0.0-2.0 [facility] Comment on above: Performed By: #### L [id number] ####Family Dinner Service Specialist: MESERET PAULA ([phone])[facility] ([facility])[address] [place] [address] Platelet mean volume (Bld) [Entitic vol] 12.8 fL High 9.0-12.7 [facility] Comment on above: Performed By: #### L [id number] ####Family Dinner Service Specialist: MESERET PAULA ([phone])[facility] ([facility])[address] [place] [address] Platelets (Bld) [#/Vol] 231 10*3/uL Normal 140-440 [facility] Comment on above: Performed By: #### L [id number] ####Family Dinner Service Specialist: MESERET PAULA ([phone])[facility] ([facility])[address] [place] [address] RBC (Bld) [#/Vol] 5.37 10*6/uL High 3.80-5.20 [facility] Comment on above: Performed By: #### L [id number] ####Family Dinner Service Specialist: MESERET PAULA ([phone])[facility] ([facility])[address] [place] [address] WBC (Bld) [#/Vol] 15.8 10*3/uL High 3.6-10.7 [facility] Comment on above: Performed By: #### L [id number] ####Family Dinner Service Specialist: MESERET PAULA ([phone])[facility] ([facility])[address] [place] [address] COMPREHENSIVE METABOLIC PANE [place] 03-15-2024 Albumin [Mass/Vol] 4.1 g/dL Normal 3.5-5.0 [facility] Comment on above: Performed By: #### L [id number], [id number], [id number], [id number], [id number] ####Family Dinner Service Specialist: MESERET PAULA ([phone])[facility])[address] [place] [address] ALP [Catalytic activity/Vol] 126 U/L Normal 38-126 [facility] Comment on above: Performed By: #### L [id number], [id number], [id number], [id number], [id number] ####Family Dinner Service Specialist: MESERET PAULA ([phone])[facility])[address] [place] [address] ALT [Catalytic activity/Vol] 52 U/L High 0-34 [facility] Comment on above: Performed By: #### L [id number], [id number], [id number], [id number], [id number] ####Family Dinner Service Specialist: MESERET PAULA ([phone])[facility] ([facility])[address] [place] [address] Anion gap [Moles/Vol] 6 mmol/L Normal 3-13 [facility] Comment on above: Performed By: #### L [id number], [id number], [id number], [id number], LAB17 ####Family Dinner Service Specialist: MESERET PAULA ([phone])[facility])[address] [place] [address] AST [Catalytic activity/Vol] 205 U/L High 15-46 [facility] Comment on above: Performed By: #### L [id number], [id number], [id number], [id number], LAB17 ####Family Dinner Service Specialist: MESERET PAULA ([phone])[facility])[address] [place] [address] Bilirubin [Mass/Vol] 0.8 mg/dL Normal 0.2-1.3 [facility] Comment on above: Performed By: #### L [id number], [id number], [id number], [id number], LAB17 ####Family Dinner Service Specialist: MESERET PAULA ([phone])[facility] ([facility])[address] [place] [address] Calcium [Mass/Vol] 9.6 mg/dL Normal 8.4-10.4 [facility] Comment on above: Performed By: #### L [id number], [id number], [id number], [id number], LAB17 ####Family Dinner Service Specialist: MESERET PAULA ([phone])[facility])[address] [place] [address] [place] Chloride [Moles/Vol] 102 mmol/L Normal 98-107 [facility] Comment on above: Performed By: #### L [id number], [id number], [id number], [id number], LAB17 ####Family Dinner Service Specialist: MESERET PAULA ([phone])[facility] [place] [id number] [place] [address] CO2 [Moles/Vol] 29 mmol/L Normal 22-30 [facility] Comment on above: Performed By: #### L [id number], [id number], [id number], [id number], LAB17 ####Family Dinner Service Specialist: MESERET PAULA ([phone])[facility] ([facility])[address] [place] [address] Creatinine [Mass/Vol] 0.96 mg/dL Normal 0.52-1.04 [facility] Comment on above: Performed By: #### Yumiko AB106, [id number], [id number], [id number], LAB17 ####Family Dinner Service Specialist: MESERET PAULA ([phone])[facility] ([facility])[address] [place] [address] [place] GLOMERULAR FILTRATION RATE ML/MIN/1.73 SQ M.PREDICTED 71.3 mL/min/1.73m*2 Normal >60.0 [facility] Comment on above: Result Comment: Calc ulation based on the Chronic Kidney Disease Epidemiology Collaboration (CKD-EPI) equation refit without adjustment for race Performed By: #### L AB106, [id number], [id number], [id number], LAB17 ####Family Dinner Service Specialist: MESERET PAULA ([phone])[facility] ([facility])[address] [place] [address] [place] Glucose [Mass/Vol] 152 mg/dL High 70-100 [facility] Comment on above: Performed By: #### L AB106, [id number], [id number], [id number], LAB17 ####Family Dinner Service Specialist: MESERET PAULA ([phone])[facility] ([facility])[address] [place] [address] [place] Potassium [Moles/Vol] 4.1 mmol/L Normal 3.5-5.1 [facility] Comment on above: Performed By: #### L AB106, [id number], [id number], [id number], LAB17 ####Family Dinner Service Specialist: MESERET PAULA ([phone])[facility] ([facility])[address] [place] [address] Protein [Mass/Vol] 8.0 g/dL Normal 6.3-8.2 [facility] Comment on above: Performed By: #### L AB106, [id number], [id number], [id number], LAB17 ####Family Dinner Service Specialist: MESERET PAULA ([phone])[facility] ([facility])[address] [place] [address] Sodium [Moles/Vol] 137 mmol/L Normal 135-145 [facility] Comment on above: Performed By: #### L AB106, [id number], [id number], [id number], LAB17 ####Family Dinner Service Specialist: MESERET PAULA ([phone])[facility] ([facility])[address] [place] [address] Urea nitrogen [Mass/Vol] 19 mg/dL High 7-17 [facility] Comment on above: Performed By: #### L [id number], [id number], [id number], [id number], LAB17 ####Family Dinner Service Specialist: MESERET PAULA ([phone])[facility] ([facility])[address] [place] [address] Comprehensive metabolic 1998 panelon 03-15-2024 Albumin [Mass/Vol] 4.1 g/dL 3.5 - 5.0 g/dL [facility] ALP [Catalytic activity/Vol] 126 U/L 38 - 126 U/L [facility] ALT [Catalytic activity/Vol] 52 U/L High 0 - 34 U/L [facility] Anion gap [Moles/Vol] 6 mmol/L 3 - 13 mmol/L [facility] AST [Catalytic activity/Vol] 205 U/L High 15 - 46 U/L [facility] Bilirubin [Mass/Vol] 0.8 mg/dL 0.2 - 1 .3 mg/dL [facility] Calcium [Mass/Vol] 9.6 mg/dL 8.4 - 10. 4 mg/dL [facility] Chloride [Moles/Vol] 102 mmol/L 98 - 10 7 mmol/L [facility] CO2 [Moles/Vol] 29 mmol/L 22 - 30 mmol/L [facility] Creatinine [Mass/Vol] 0.96 mg/dL 0.52 - 1.04 mg/dL [facility] GFR/1.73 sq M.predicted MDRD (S/P/Bld) [Vol rate/Area] 71.3 mL/min/{1.73_m2} - PINF [facility] Glucose [Mass/Vol] 152 mg/dL High 70 - 100 mg/dL [facility] Interpretation and review of laboratory results Abnormal [facility] Potassium [Moles/Vol] 4.1 mmol/L 3.5 - 5.1 mmol/L [facility] Protein [Mass/Vol] 8.0 g/dL 6.3 - 8.2 g/dL [facility] Sodium [Moles/Vol] 137 mmol/L 135 - 145 mmol/L [facility] Urea nitrogen [Mass/Vol] 19 mg/dL High 7 - 17 mg/dL [facility] LIPOPROTEIN A (LPA)on 2023 Lipoprotein a [Mass/Vol] 19 mg/dL Normal <=29 [facility] Comment on above: Result Comment: Perf ormed By: [address] [place], [place] [id number] Director: Shine Hinton MD, PhDCLIA Number: [id number] Performed By: #### L [id number] ####[facility] ([facility])[address] Laboratory - Chemistry and C hemistry - challengeOrdered By: Lisset Rodriguez on 03-15-2024 Troponin I.cardiac [Mass/Vol] 32.700 ng/mL Critically high NINF - 0.034 ng/mL [facility] Laboratory - Chemistry and C hemistry - challengeon 03-15-2024 Magnesium [Mass/Vol] 1.8 mg/dL 1.6 - 2 .3 mg/dL [facility] Glucose [Mass/Vol] 149 mg/dL High 70 - 100 mg/dL [facility] MAGNESIUMon 03-15-2024 Magnesium [Mass/Vol] 1.8 mg/dL Normal 1.6-2.3 [facility] Comment on above: Performed By: #### L [id number], [id number], [id number], [id number], LAB17 ####Family Dinner Service Specialist: MESERET PAULA ([phone])[facility] ([facility])[address] [place] [address] NT PRO BNPon 03-15-2024 Natriuretic peptide B (Bld) [Mass/Vol] 3160 pg/mL High <125 [facility] Comment on above: Performed By: #### L AB106, [id number], [id number], [id number], LAB17 ####Family Dinner Service Specialist: MESERET PAULA ([phone])[facility] ([facility])[address] [place] [address] [place] Natriuretic peptide B [Mass/ Vol]on 03-15-2024 Interpretation and review of laboratory results Abnormal [facility] Natriuretic peptide B (Bld) [Mass/Vol] 3160 pg/mL High NINF - 125 pg/mL [facility] No Panel Informationon 03-15 Interpretation and review of laboratory results Normal [facility] Interpretation and review of laboratory results Abnormal [facility] PHOSPHORUSon 03-15-2024 Phosphate [Mass/Vol] 4.4 mg/dL Normal 2.5-4.5 [facility] Comment on above: Performed By: #### L AB106, [id number], [id number], [id number], LAB17 ####Family Dinner Service Specialist: MESERET PAULA ([phone])[facility] ([facility])[address] [place] [address] [place] Phosphate [Moles/Vol]on 02-24 Phosphate [Mass/Vol] 4.4 mg/dL 2.5 - 4 .5 mg/dL [facility] TROPONIN, WITH SERIAL REFLEX on 03-15-2024 Troponin I.cardiac [Mass/Vol] 32.700 ng/mL Critically high <0.034 [facility] Comment on above: Result Comment: MARY Minor COMMENTS:Patients with high levels of Biotin oral intake (ie >5 mg/day) may have falsely decreased Troponin levels. Performed By: #### L AB106, [id number], [id number], [id number], LAB17 ####Family Dinner Service Specialist: MESERET PAULA ([phone])[facility] ([facility])[address] [place] [address] Troponin I.cardiac [Mass/Vol ]Ordered By: Lisset Rodriguez on 03-15-2024 Interpretation and review of laboratory results Abnormal [facility] XR CHEST 1 VIEWon 03-15-2024 XR CHEST 1 VIEW Normal [facility] XR Chest Single viewon 03-15 [facility] Radiology Study observation (narrative) [facility] XR Chest Single viewOrdered By: Jordan Davies on 03-15-2024 [facility] Work Phone: aPTT Coag (Bld) [Time]on aPTT Coag (PPP) [Time] 22.2 s 20.0 - 30.5 s [facility] Interpretation and review of laboratory results Normal [facility] Absolute lymphocyte countOrd ered By: ED PROVIDER on 09-16-2023 Lymphocytes Auto (Unsp spec) [#/Vol] 3.70 10*3/uL 0.83-4.[address] [facility] Basophil percentageOrdered B y: Yaniv Tarango on 09-16-2023 Basophil percentage 5-10 SEEN /hpf 0-5 [facility] Bilirubin [Mass/Vol] 0.40 mg/dL 0.20-1.00 [facility] Comment on above: For patients on eltr ombopag therapy, use of Dimension [place] TBIL is not recommended. Chloride [Moles/Vol] 103 mmol/L 98-107 [facility] Glucose [Mass/Vol] 482 mg/dL 74-106 [facility] Comment on above: Critical Result(s) C alled at: 07:05:01 09/16/2023 by: Jelani Dailey RN (ER). Results read back by same.Glucose result greater than or equal to 200 mg/dLsuggests DIABETES MELLITUS per A.D.A. criteria. Potassium [Moles/Vol] 3.8 mmol/L 3.5-5.1 [facility] Comment on above: Slight Hemolysis, Re sult may be falsely increased. Protein [Mass/Vol] 9.1 g/dL 6.4-8.2 [facility] Sodium [Moles/Vol] 135 mmol/L 136-145 [facility] Basophil percentageOrdered B y: ED PROVIDER on 09-16-2023 Basophils/100 WBC (Bld) 0.5 % 0-1 [facility] Eosinophils/100 WBC (Bld) 0.9 % 0-[address] [facility] Neutrophils (Bld) [#/Vol] 10.1 10*3/uL 2.0-7.[address] [facility] Neutrophils/100 WBC (Bld) 66.2 % 47-[address] [facility] WBC (Bld) [#/Vol] 15.2 10*3/uL 4.4-11.0 [facility] Bilirubin Test strip Ql (U)O rdered By: Yaniv Tarango on 09-16-2023 Bilirubin Ql (U) Negative Negative [facility] Blood erythrocytes count (nu mber/volume)Ordered By: ED PROVIDER on 09-16-2023 RBC (Bld) [#/Vol] 5.41 10*6/uL 4.2-5.4 [facility] Blood hemoglobin measurement (mass/volume)Ordered By: ED PROVIDER on 09-16-2023 Hemoglobin (Bld) [Mass/Vol] 16.4 g/dL 12.0-15.[address] [facility] Blood lymphocytes/100 leukoc ytesOrdered By: ED PROVIDER on 09-16-2023 Lymphocytes/100 WBC (Bld) 24.3 % 19-[address] [facility] Blood monocytes/100 leukocyt esOrdered By: ED PROVIDER on 09-16-2023 Monocytes/100 WBC (Bld) 7.6 % 0-10 [facility] Blood platelet mean volumeOr dered By: ED PROVIDER on 09-16-2023 Platelet mean volume (Bld) [Entitic vol] 12.4 fL 6.2-12.[address] [facility] Determination of erythrocyte mean corpuscular volume (MCV)Ordered By: ED PROVIDER on 09-16-2023 MCV (RBC) [Entitic vol] 89.3 fL 81-99 [facility] Hematocrit Auto (Bld) [Volum e fraction]Ordered By: ED PROVIDER on 09-16-2023 Hematocrit (Bld) [Volume fraction] 48.3 % 37-[address] [facility] Ketones Test strip Ql (U)Ord ered By: Yaniv Tarango on 09-16-2023 Ketones Ql (U) Negative Negative [facility] Laboratory - Chemistry and C hemistry - challengeOrdered By: Yaniv Tarango on 09-16-2023 ALP [Catalytic activity/Vol] 168 U/L 45-[address] [facility] ALT [Catalytic activity/Vol] 19 U/L 13-[address] [facility] CO2 [Moles/Vol] 25.0 mmol/L 21.0-32.[address] [facility] Globulin (S) [Mass/Vol] 5.4 g/dL 2.2-4.2 [facility] Urea nitrogen/Creatinine [Mass ratio] 9.0 mg/mg 10-[address] [facility] Laboratory - Hematology and Cell countsOrdered By: ED PROVIDER on 09-16-2023 Erythrocyte distribution width (RBC) [Entitic vol] 41.5 fL 35.1-43.[address] [facility] Erythrocyte distribution width (RBC) [Ratio] 12.8 % 11.6-14.[address] [facility] Immature granulocytes/100 WBC (Bld) 0.500 % 0.0-0.[address] [facility] Comment on above: IG% - Immature Granu locytes (promyelocytes, myelocytes and metamyelocytes) > 1% indicates that a LEFT SHIFT is Present. MCH (RBC) [Entitic mass] 30.3 pg 27.0-32.[address] [facility] Nucleated RBC/100 WBC (Bld) [Ratio] 0 % 0-[address] [facility] MCHC Auto (RBC) [Mass/Vol]Or dered By: ED PROVIDER on 09-16-2023 MCHC (RBC) [Mass/Vol] 34.0 g/dL 32-36 [facility] Mucus LM Ql (Urine sed)Order ed By: Yaniv Tarango on 09-16-2023 Mucus Ql (Urine sed) 0 SEEN /hpf [facility] Nitrite Test strip Ql (U)Ord ered By: Yaniv Tarango on 09-16-2023 Nitrite Ql (U) Negative Negative [facility] No Panel InformationOrdered By: Yaniv Tarango on 09-16-2023 Estimated Creatinine Clearance Calc 34.90 ml/min [facility] Estimated GFR (MDRD) Amer 45 mL/min >[address] [facility] Comment on above: GFR Calc Estimated GFR (MDRD) Non-Af Amer 37 mL/min >[address] [facility] Comment on above: Non- GFR Calc Platelets bldOrdered By: ED PROVIDER on 09-16-2023 Platelets (Bld) [#/Vol] 274 10*3/uL 150-[address] [facility] Protein Test strip Ql (U)Ord ered By: Yaniv Tarango on 09-16-2023 Protein Ql (U) 100 mg/dl Negative [facility] Serum or plasma albumin mark urement (mass/volume)Ordered By: Yaniv Tarango on 09-16-2023 Albumin [Mass/Vol] 3.7 g/dL 3.2-5.0 [facility] Serum or plasma albumin/glob ulin mass ratioOrdered By: Yaniv Tarango on 09-16-2023 Albumin/Globulin [Mass ratio] 0.7 {ratio} 0.9-2.[address] [facility] Serum or plasma calcium mark urement (mass/volume)Ordered By: Yaniv Tarango on 09-16-2023 Calcium [Mass/Vol] 9.1 mg/dL 8.5-10.1 [facility] Serum or plasma creatinine m easurement (mass/volume)Ordered By: Yaniv Tarango on 09-16-2023 Creatinine [Mass/Vol] 1.56 mg/dL 0.55-1.02 [facility] Comment on above: The validity of the calculated GFR & GFRAA in patients over 70 years has not been determined. Clinical correlation is essential. Serum or plasma urea nitroge n measurement (mass/volume)Ordered By: Yaniv Tarango on 09-16-2023 Urea nitrogen [Mass/Vol] 14 mg/dL 7-[address] [facility] Squamous epithelial cells de tection in urine sediment by light microscopyOrdered By: Yaniv Tarango on 09-16-2023 Epithelial cells.squamous LM Ql (Urine sed) 0-5 SEEN /hpf 5-[address] [facility] Thin prep Papanicolaou smear with manual screeningOrdered By: Yaniv Tarango on 09-16-2023 Thin prep Papanicolaou smear with manual screening 13 U/L 15-[address] [facility] Comment on above: Slight Hemolysis, Re sult may be falsely increased. Thin prep Papanicolaou smear with manual screening 7 5-[address] [facility] Urine blood detectionOrdered By: Yaniv Tarango on 09-16-2023 RBC Ql (U) 10 /ul Negative [facility] RBC Ql (U) 0 SEEN /hpf 0-[address] [facility] Urine clarityOrdered By: Trudy Tarango on 09-16-2023 Clarity (U) Sl. Cloudy Clear [facility] Urine color determinationOrd ered By: Yaniv Tarango on 09-16-2023 Color (U) Yellow Yellow [facility] Urine glucose detectionOrder ed By: Yaniv Tarango on 09-16-2023 Glucose Ql (U) 1000 mg/dl Normal [facility] Urine leukocyte esterase det ection by dipstickOrdered By: Yaniv Tarango on 09-16-2023 Leukocyte esterase Test strip Ql (U) Negative Negative [facility] Urine pHOrdered By: Yaniv gloria on 09-16-2023 pH (U) 6.0 [pH] 5.0 - 8.[address] [facility] Urine sediment bacteria coun t by microscopy (number/high power field)Ordered By: Yaniv Tarango on 09-16-2023 Bacteria LM.HPF (Urine sed) [#/Area] 0 /[HPF] None Seen [facility] Urine specific gravity measu rementOrdered By: Yaniv Tarango on 09-16-2023 Specific gravity (U) [Rel density] 1.020 1.002-1.[address] [facility] Urobilinogen Auto test strip Ql (U)Ordered By: Yaniv Tarango on 09-16-2023 Urobilinogen Ql (U) Normal mg/dl Normal [facility] Basophil percentageOrdered B y: Elmer Gomes on 09-14-2023 Basophil percentage 50-100 SEEN /hpf 0-[address] [facility] Bilirubin Test strip Ql (U)O rdered By: Elmer Gomes on 09-14-2023 Bilirubin Ql (U) Negative Negative [facility] Ketones Test strip Ql (U)Ord ered By: Elmer Gomes on 09-14-2023 Ketones Ql (U) Negative Negative [facility] Mucus LM Ql (Urine sed)Order ed By: Elmer Gomes on 09-14-2023 Mucus Ql (Urine sed) 0 SEEN /hpf [facility] Nitrite Test strip Ql (U)Ord ered By: Elmer Gomes on 09-14-2023 Nitrite Ql (U) Positive Negative [facility] Protein Test strip Ql (U)Ord ered By: Elmer Gomes on 09-14-2023 Protein Ql (U) 100 mg/dl Negative [facility] Squamous epithelial cells de tection in urine sediment by light microscopyOrdered By: Elmer Gomes on 09-14-2023 Epithelial cells.squamous LM Ql (Urine sed) 0-5 SEEN /hpf 5-[address] [facility] Urine blood detectionOrdered By: Elmer Gomes on 09-14-2023 RBC Ql (U) 250 /ul Negative [facility] RBC Ql (U) > 100 SEEN /hpf 0-[address] [facility] Urine clarityOrdered By: Lucie Gomes on 09-14-2023 Clarity (U) Cloudy Clear [facility] Urine color determinationOrd ered By: Elmer Gomes on 09-14-2023 Color (U) Yellow Yellow [facility] Urine glucose detectionOrder ed By: Elmer Gomes on 09-14-2023 Glucose Ql (U) 1000 mg/dl Normal [facility] Urine leukocyte esterase det ection by dipstickOrdered By: Elmer Gomes on 09-14-2023 Leukocyte esterase Test strip Ql (U) 500 /ul Negative [facility] Urine pHOrdered By: Elmer grier on 09-14-2023 pH (U) 6.0 [pH] 5.0 - 8.[address] [facility] Urine sediment bacteria coun t by microscopy (number/high power field)Ordered By: Elmer Gomes on 09-14-2023 Bacteria LM.HPF (Urine sed) [#/Area] 1 /[HPF] None Seen [facility] Urine specific gravity measu rementOrdered By: Elmer Gomes on 09-14-2023 Specific gravity (U) [Rel density] 1.015 1.002-1.[address] [facility] Urobilinogen Auto test strip Ql (U)Ordered By: Elmer Gomes on 09-14-2023 Urobilinogen Ql (U) Normal mg/dl Normal [facility] CT Lung Screen (Annual/Basel ine)on 12-16-2022 6 mm low-density nodule lateral right upper lobe. Although felt to be stable from a CTA examination from March 2022, recommend six-month follow-up noncontrast chest CT LUNG RADS: Lung-RADS 3 - Probably Benign (v2022) Management: 6 month LDCT RECOMMENDATIONS: If you would like to register your patient with the [facility] Lung Nodule/Lung Cancer Screening Program, please contact the Nurse Navigator at . [facility] EXAMINATION: LOW DOSE SCREENING CT OF THE CHEST WITHOUT CONTRAST 12/16/2022 1:49 pm TECHNIQUE: Low dose lung cancer screening CT of the chest was performed without the administration of intravenous contrast. Multiplanar reformatted images are provided for review. Automated exposure control, iterative reconstruction, and/or weight based adjustment of the mA/kV was utilized to reduce the radiation dose to as low as reasonably achievable. COMPARISON: March 2022 CTA chest HISTORY: ORDERING SYSTEM PROVIDED HISTORY: Personal history of tobacco use TECHNOLOGIST PROVIDED HISTORY: Age: Patient is 52 y.o. Smoking History: Social History Tobacco Use Smoking status: Every Day Packs/day: 2.00 Years: 38.00 Pack years: 76 Types: Cigarettes Smokeless tobacco: Never Alcohol use: Never Drug use: Never Pack years: 76 Date of last lung cancer screening: No previous lung cancer screening exam Is there documentation of shared decision making?->Yes Is this a low dose CT or a routine CT?->Low Dose CT Is this the first (baseline) CT or an annual exam?->Baseline Does the patient show any signs or symptoms of lung cancer?->No Smoking Status?->Every Day Smoking packs per day?->2 Years smoking?->38 What reading provider will be dictating this exam?->CRC FINDINGS: Mediastinum: Mild cardiomegaly. No lymphadenopathy. Lungs/Pleura: Low-density 6 mm nodule right upper lobe (series 3, image 23). This measured 5 mm on the prior CTA examination, though this may be technical in nature. Mild bronchial wall thickening Upper Abdomen: Limited images of the upper abdomen demonstrate no acute abnormality. Soft Tissues/Bones: Age related degenerative changes of the visualized osseous structures without focal destructive lesion. [facility] Tyron Gale MD - 12/16/2022 EXAMINATION: LOW DOSE SCREENING CT OF THE CHEST WITHOUT CONTRAST 12/16/2022 1:49 pm TECHNIQUE: Low dose lung cancer screening CT of the chest was performed without the administration of intravenous contrast. Multiplanar reformatted images are provided for review. Automated exposure control, iterative reconstruction, and/or weight based adjustment of the mA/kV was utilized to reduce the radiation dose to as low as reasonably achievable. COMPARISON: March 2022 CTA chest HISTORY: ORDERING SYSTEM PROVIDED HISTORY: Personal history of tobacco use TECHNOLOGIST PROVIDED HISTORY: Age: Patient is 52 y.o. Smoking History: Social History Tobacco Use Smoking status: Every Day Packs/day: 2.00 Years: 38.00 Pack years: 76 Types: Cigarettes Smokeless tobacco: Never Alcohol use: Never Drug use: Never Pack years: 76 Date of last lung cancer screening: No previous lung cancer screening exam Is there documentation of shared decision making?->Yes Is this a low dose CT or a routine CT?->Low Dose CT Is this the first (baseline) CT or an annual exam?->Baseline Does the patient show any signs or symptoms of lung cancer?->No Smoking Status?->Every Day Smoking packs per day?->2 Years smoking?->38 What reading provider will be dictating this exam?->CRC FINDINGS: Mediastinum: Mild cardiomegaly. No lymphadenopathy. Lungs/Pleura: Low-density 6 mm nodule right upper lobe (series 3, image 23). This measured 5 mm on the prior CTA examination, though this may be technical in nature. Mild bronchial wall thickening Upper Abdomen: Limited images of the upper abdomen demonstrate no acute abnormality. Soft Tissues/Bones: Age related degenerative changes of the visualized osseous structures without focal destructive lesion. IMPRESSION: 6 mm low-density nodule lateral right upper lobe. Although felt to be stable from a CTA examination from March 2022, recommend six-month follow-up noncontrast chest CT LUNG RADS: Lung-RADS 3 - Probably Benign (v2022) Management: 6 month LDCT RECOMMENDATIONS: If you would like to register your patient with the [facility] Lung Nodule/Lung Cancer Screening Program, please contact the Nurse Navigator at . [employer] Work Phone: Radiology Study observation (narrative) DIP[employer] BROWN [employer] Live Work Phone: CT Lung Screen (Annual/Basel ine)Ordered By: Tyron Gale on 12-16-2022 [employer] [facility] [employer] Work Phone: Basic Metabolic Panelon 03-25 Anion gap [Moles/Vol] 12 mmol/L [facility] [employer] Calcium [Mass/Vol] 9.2 mg/dL 8.5 - 9.9 mg/dL [facility] [employer] Chloride [Moles/Vol] 98 mmol/L [facility] [employer] CO2 [Moles/Vol] 26 mmol/L [facility] [employer] Creatinine [Mass/Vol] 0.82 mg/dL 0.50 - 0.90 mg/dL [facility] GFR >60.0 >60 [facility] Comment on above: >60 mL/min/1.73m2 EG FR, calc. for ages 18 and older using the MDRD formula (not corrected for weight), is valid for stable renal function. GFR Non- >60.0 >60 [facility] [employer] Comment on above: >60 mL/min/1.73m2 EG FR, calc. for ages 18 and older using the MDRD formula (not corrected for weight), is valid for stable renal function. Glucose [Mass/Vol] 181 mg/dL High 70 - 99 mg/dL [facility] Interpretation and review of laboratory results Abnormal [facility] [employer] Potassium [Moles/Vol] 4.2 mmol/L [facility] [employer] Sodium [Moles/Vol] 136 mmol/L [facility] [employer] Urea nitrogen (BldV) [Mass/Vol] 22 mg/dL High 6 - 20 mg/dL [facility] CBC with Auto Differentialon 04-06-2022 Basophils (Bld) [#/Vol] 0.2 10*3/uL 0.0 - 0.2 K/uL [facility] Basophils/100 WBC (Bld) 1.5 % B ON [facility] Eosinophils (Bld) [#/Vol] 0.2 10*3/uL 0.0 - 0.7 K/uL [facility] Eosinophils/100 WBC (Bld) 2.1 % [facility] Hematocrit (Bld) [Volume fraction] 45.9 % 37.0 - 47.0 % [facility] Hemoglobin (Bld) [Mass/Vol] 15.3 g/dL 12.0 - 16.0 g/dL [facility] Interpretation and review of laboratory results Abnormal [facility] Lymphocytes (Bld) [#/Vol] 3.3 10*3/uL 1.0 - 4.8 K/uL [facility] Lymphocytes/100 WBC (Bld) 32.2 % [facility] MCH (RBC) [Entitic mass] 31.3 pg 27.0 - 31.3 pg [facility] MCHC (RBC) [Mass/Vol] 33.4 % 33.0 - 37.0 % [facility] MCV (RBC) [Entitic vol] 93.8 fL 82.0 - 100.0 fL [facility] Monocytes (Bld) [#/Vol] 1.1 10*3/uL High 0.2 - 0.8 K/uL [facility] Monocytes/100 WBC (Bld) 11.1 % B ON [facility] Neutrophils Absolute 5.4 K/uL 1.4 - 6 .5 K/uL [facility] Neutrophils/100 WBC (Bld) 53.1 % [facility] Platelet distribution width (Bld) [Ratio] 14.6 % High 11.5 - 14.5 % [facility] Platelets (Bld) [#/Vol] 181 10*3/uL 130 - 400 K/uL [facility] RBC (Bld) [#/Vol] 4.89 10*6/uL [facility] WBC (Bld) [#/Vol] 10.3 10*3/uL 4.8 - 10.8 K/uL [facility] Magnesiumon 04-06-2022 Magnesium [Mass/Vol] 2.0 mg/dL 1.7 - 2 .4 mg/dL [facility] No Panel Informationon 04-06 [facility] POCT Glucoseon 04-06-2022 Glucose [Mass/Vol] 247 mg/dL High 70 - 99 mg/dl [facility] Interpretation and review of laboratory results Abnormal [facility] Performed on ACCU-CHEK [facility] Comment on above: Notified RN or MD [facility] Glucose [Mass/Vol] 194 mg/dL High 70 - 99 mg/dl [facility] Interpretation and review of laboratory results Abnormal [facility] Performed on ACCU-CHEK [facility] Comment on above: Notified RN or MD Sliding Scale [facility] Basic Metabolic Panelon 03-25 Anion gap [Moles/Vol] 11 mmol/L [facility] Calcium [Mass/Vol] 8.8 mg/dL 8.5 - 9.9 mg/dL [facility] Chloride [Moles/Vol] 96 mmol/L [facility] CO2 [Moles/Vol] 28 mmol/L [facility] Creatinine [Mass/Vol] 0.86 mg/dL 0.50 - 0.90 mg/dL [facility] GFR >60.0 >60 [facility] Comment on above: >60 mL/min/1.73m2 EG FR, calc. for ages 18 and older using the MDRD formula (not corrected for weight), is valid for stable renal function. GFR Non- >60.0 >60 [facility] Comment on above: >60 mL/min/1.73m2 EG FR, calc. for ages 18 and older using the MDRD formula (not corrected for weight), is valid for stable renal function. Glucose [Mass/Vol] 175 mg/dL High 70 - 99 mg/dL [facility] Interpretation and review of laboratory results Abnormal [facility] Potassium [Moles/Vol] 3.5 mmol/L [facility] Sodium [Moles/Vol] 135 mmol/L [facility] Urea nitrogen (BldV) [Mass/Vol] 19 mg/dL 6 - 20 mg/dL [facility] CBCon 04-05-2022 Hematocrit (Bld) [Volume fraction] 42.8 % 37.0 - 47.0 % [facility] Hemoglobin (Bld) [Mass/Vol] 14.6 g/dL 12.0 - 16.0 g/dL [facility] Interpretation and review of laboratory results Abnormal [facility] MCH (RBC) [Entitic mass] 31.5 pg High 27.0 - 31.3 pg [facility] MCHC (RBC) [Mass/Vol] 34.0 % 33.0 - 37.0 % [facility] MCV (RBC) [Entitic vol] 92.7 fL 82.0 - 100.0 fL [facility] Platelet distribution width (Bld) [Ratio] 14.6 % High 11.5 - 14.5 % [facility] Platelets (Bld) [#/Vol] 180 10*3/uL 130 - 400 K/uL [facility] RBC (Bld) [#/Vol] 4.62 10*6/uL [facility] WBC (Bld) [#/Vol] 10.4 10*3/uL 4.8 - 10.8 K/uL [facility] EKG 12 Leadon 04-05-2022 Atrial Rate 81 BPM [facility] Work Phone: P [place] 62 degrees [facility] Work Phone: P-R Interval 150 ms [facility] Work Phone: Q-T Interval 428 ms [facility] Work Phone: QRS Duration 100 ms [facility] Work Phone: QTc Calculation (Bazett) 497 ms [facility] Work Phone: R [place] -15 degrees [facility] Work Phone: T [place] 71 degrees [facility] Work Phone: Ventricular Rate 81 BPM [facility] [employer] Work Phone: Normal sinus rhythm Prolonged QT Abnormal ECG When compared with ECG of 03-APR-2022 17:25, T wave inversion no longer evident in Inferior leads T wave inversion no longer evident in Anterolateral leads QT has shortened Confirmed by Callum Esquivel ([id number]) on 04/05/2022 7:29:41 AM [facility] MUSE Result, Unknown Provider - 04/05/2022 Normal sinus rhythm Prolonged QT Abnormal ECG When compared with ECG of 03-APR-2022 17:25, T wave inversion no longer evident in Inferior leads T wave inversion no longer evident in Anterolateral leads QT has shortened Confirmed by Callum Esquivel ([id number]) on 04/05/2022 7:29:[address] [facility] Work Phone: [facility] [employer] Work Phone: POCT Glucoseon 04-05-2022 Glucose [Mass/Vol] 156 mg/dL High 70 - 99 mg/dl [facility]ON[facility] [employer] Interpretation and review of laboratory results Abnormal [facility] [employer] Performed on ACCU-CHEK [facility]ON[facility] [employer] Comment on above: Notified RN or MD [facility] [employer] Glucose [Mass/Vol] 174 mg/dL High 70 - 99 mg/dl [facility] Interpretation and review of laboratory results Abnormal [facility]ONMission Control TechnologiesBLUFFTON HOSPITAL Performed on ACCU-CHEK [facility] Glucose [Mass/Vol] 361 mg/dL High 70 - 99 mg/dl [facility]ONMission Control TechnologiesBLUFFTON [facility]OS[facility] Interpretation and review of laboratory results Abnormal [employer] [facility] [employer]EM[employer] Performed on ACCU-CHEK [facility] [employer] [facility]ONFederal [facility] Glucose [Mass/Vol] 154 mg/dL High 70 - 99 mg/dl [facility]ONMission Control TechnologiesBLUFFTON [facility]OSPITAL Interpretation and review of laboratory results Abnormal [facility] [employer] Performed on ACCU-CHEK [facility]ONM[facility] [employer] [facility]ONMission Control TechnologiesBLUFFTON [facility] Brain Natriuretic Peptideon 04-04-2022 Natriuretic peptide B (Bld) [Mass/Vol] 4169 pg/mL [facility] Comment on above: NT-pro BNP ACUTE Int erpretive Guidelines: Age Cutoff for Heart Failure Less than 50 yrs 450 pg/mL 50-75 yrs 900 pg/mL Greater than 75 yrs 1800 pg/mL NT-pro BNP NON-ACUTE Interpretive Guidelines: Age Reference Range Less than 74 yrs 0-125 pg/mL Greater than 74 yrs 0-450 pg/mL Other possible causes of an elevated NT-proBNP include: cardiac ischemia, acute coronary syndrome, COPD, pneumonia, atrial fibrillation, pulmonary emboli, pulmonary hypertension, pericarditis Reference: Gaetano Clarke et al. NT-proBNP testing for diagnosis and short-term prognosis in acute destabilized HF: an international pooled analysis of 1256 patients. Heart Journal. 2006;27:330-337 CBC with Auto Differentialon 04-04-2022 Basophils (Bld) [#/Vol] 0.0 10*3/uL 0.0 - 0.2 K/uL [facility] Basophils/100 WBC (Bld) 0.7 % B [facility] Eosinophils (Bld) [#/Vol] 0.0 10*3/uL 0.0 - 0.7 K/uL [facility] Eosinophils/100 WBC (Bld) 0.2 % [facility] Hematocrit (Bld) [Volume fraction] 41.4 % 37.0 - 47.0 % [facility] Hemoglobin (Bld) [Mass/Vol] 14.1 g/dL 12.0 - 16.0 g/dL [facility] Interpretation and review of laboratory results Abnormal [facility] Lymphocytes (Bld) [#/Vol] 2.8 10*3/uL 1.0 - 4.8 K/uL [facility] Lymphocytes/100 WBC (Bld) 16.0 % [facility] MCH (RBC) [Entitic mass] 31.8 pg High 27.0 - 31.3 pg [facility] MCHC (RBC) [Mass/Vol] 34.1 % 33.0 - 37.0 % [facility] MCV (RBC) [Entitic vol] 93.1 fL 82.0 - 100.0 fL [facility] Monocytes (Bld) [#/Vol] 1.2 10*3/uL High 0.2 - 0.8 K/uL [facility] Monocytes/100 WBC (Bld) 6.6 % B ON [facility] Neutrophils Absolute 13.3 K/uL High 1.4 - 6 .5 K/uL [facility] Neutrophils/100 WBC (Bld) 76.0 % [facility] Plasma Cells Relative 1 % [facility] Platelet distribution width (Bld) [Ratio] 14.5 % 11.5 - 14.5 % [facility] PLATELET SLIDE REVIEW Normal [facility] Platelets (Bld) [#/Vol] 197 10*3/uL 130 - 400 K/uL [facility] RBC (Bld) [#/Vol] 4.44 10*6/uL [facility] RBC (Bld) [#/Vol] Normal [facility] WBC (Bld) [#/Vol] 17.5 10*3/uL High 4.8 - 10.8 K/uL [facility] Comprehensive Metabolic Pane l w/ Reflex to MGon 04-04-2022 Albumin [Mass/Vol] 3.8 g/dL 3.5 - 4.6 g/dL [facility] ALP (Bld) [Catalytic activity/Vol] 101 U/L 40 - 130 U/L [facility] ALT [Catalytic activity/Vol] 21 U/L 0 - 33 U/L [facility] Anion gap [Moles/Vol] 17 mmol/L High [facility] AST [Catalytic activity/Vol] 22 U/L 0 - 35 U/L [facility] Comment on above: Specimen hemolysis h as exceeded the interference as defined by Wayne. Value may be falsely increased. Suggest recollection if clinically indicated. Bilirubin [Mass/Vol] 1.0 mg/dL High 0.2 - 0 .7 mg/dL [facility] Calcium [Mass/Vol] 9.2 mg/dL 8.5 - 9.9 mg/dL [facility] Chloride [Moles/Vol] 95 mmol/L [facility] CO2 [Moles/Vol] 25 mmol/L [facility] Creatinine [Mass/Vol] 0.89 mg/dL 0.50 - 0.90 mg/dL [facility] Free PSA/Total PSA [Mass fraction] 7.2 g/dL 6.3 - 8.0 g/dL [facility] GFR >60.0 >60 [facility] Comment on above: >60 mL/min/1.73m2 EG FR, calc. for ages 18 and older using the MDRD formula (not corrected for weight), is valid for stable renal function. GFR Non- >60.0 >60 [facility] Comment on above: >60 mL/min/1.73m2 EG FR, calc. for ages 18 and older using the MDRD formula (not corrected for weight), is valid for stable renal function. Globulin (S) [Mass/Vol] 3.4 g/dL 2.3 - 3.5 g/dL [facility] Glucose [Mass/Vol] 247 mg/dL High 70 - 99 mg/dL [facility] Interpretation and review of laboratory results Abnormal [facility] Potassium reflex Magnesium 3.3 Low [facility] Sodium [Moles/Vol] 137 mmol/L [facility] Urea nitrogen (BldV) [Mass/Vol] 24 mg/dL High 6 - 20 mg/dL [facility] ECHO Complete 2D W Doppler W Coloron 04-04-2022 Transthoracic Echocardiography Report (TTE) Demographics Patient Name ELIZ TREJO Gender Female R Patient Number [id number] Race Ethnicity Visit Number [id number] Room Number W184 Corporate ID Date of Study 04/04/2022 Referring Physician Number Date of 1970 [employer] Quita Del Toro Age 51 year(s) Interpreting [facility] Physician Cardiology Jean-Paul Klein MD Procedure Type of Study TTE procedure:ECHO COMPLETE 2D W/DOP W/COLOR. Procedure Date Date: 04/04/2022 Start: 02:02 PM Study Location: Portable Technical Quality: Adequate visualization Indications:Congesti ve heart failure. Patient Status: Routine Height: 63 inches Weight: 210 pounds BSA: 1.97 m^2 BMI: 37.2 kg/m^2 BP: 148/81 mmHg Conclusions Summary Normal tricuspid valve structure and function. Mild TR RVSP 39 mmHg Normal left ventricle structure and function. Left ventricular ejection fraction is visually estimated at 50%. Pseudonormal filling pattern noted. Signature ---- ---- Findings Left Ventricle Normal left ventricle structure and function. Left ventricular ejection fraction is visually estimated at 50%. Pseudonormal filling pattern noted. Right Ventricle Normal right ventricle structure and function. Normal right ventricle systolic pressure. Left Atrium Normal left atrium. Right Atrium Normal right atrium. Mitral Valve Normal mitral valve structure and function. Tricuspid Valve Normal tricuspid valve structure and function. Mild TR RVSP 39 mmHg Aortic Valve Normal aortic valve structure and function. Pulmonic Valve The pulmonic valve was not well visualized . Pericardial Effusion No evidence of pericardial effusion. Pleural Effusion No evidence of pleural effusion. M-Mode Measurements (cm) LVIDd: 4.03 cm LVIDs: 2.85 cm IVSd: 1.9 cm IVSs: 1.89 cm LVPWd: 2.06 cm AO Root Dimension: 2.82 cm Rt. Vent. Dimension: 3.64 cm LVOT: 1.98 cm Doppler Measurements: AV Velocity:0.03 m/s MV Peak E-Wave: 1.03 m/s AV Peak Gradient: 9.42 mmHg MV Peak A-Wave: 0.67 m/s AV Mean Gradient: 4.96 mmHg AV Area (Continuity):2.62 cm^2 TR Velocity:2.68 m/s Estimated RAP:10 mmHg TR Gradient:28.65 mmHg RVSP:38.65 mmHg Valves Mitral Valve Peak E-Wave: 1.03 m/s Peak A-Wave: 0.67 m/s E/A Ratio: 1.52 Peak Gradient: 4.21 mmHg Deceleration Time: 148.7 msec Aortic Valve Peak Velocity: 1.53 m/s Mean Velocity: 1.03 m/s Peak Gradient: 9.42 mmHg Mean Gradient: 4.96 mmHg Area (continuity): 2.62 cm^2 AV VTI: 22.34 cm Tricuspid Valve Estimated RVSP: 38.65 mmHg Estimated RAP: 10 mmHg TR Velocity: 2.68 m/s TR Gradient: 28.65 mmHg Pulmonic Valve Peak Velocity: 0.89 m/s Peak Gradient: 3.14 mmHg Estimated PASP: 38.65 mmHg LVOT Peak Velocity: 1.25 m/s Mean Velocity: 0.84 m/s Peak Gradient: 6.29 mmHg Mean Gradient: 3.33 mmHg LVOT Diameter: 1.98 cm LVOT VTI: 19.04 cm Structures Left Atrium LA Volume/Index: 51.88 ml /26 m^2 LA Area: 17.49 cm^2 Left Ventricle Diastolic Dimension: 4.03 cm Systolic Dimension: 2.85 cm Septum Diastolic: 1.9 cm Septum Systolic: 1.89 cm PW Diastolic: 2.06 cm FS: 29.3 % LV EDV/LV EDV Index: 71.29 ml/36 m^2 LV ESV/LV ESV Index: 30.85 ml/16 m^2 EF Calculated: 56.7 % LV Length: 7.79 cm LVOT Diameter: 1.98 cm Right Atrium RA Systolic Pressure: 10 mmHg Right Ventricle Diastolic Dimension: 3.64 cm RV Systolic Pressure: 38.65 mmHg Aorta/ Miscellaneous Aorta Aortic Root: 2.82 cm LVOT Diameter: 1.98 cm MLO[facility] CPACS Result, Unknown Provider - 04/04/2022 Transthoracic Echocardiography Report (TTE) Demographics Patient Name ELIZ TREJO Gender Female R Patient Number [id number] Race Ethnicity Visit Number [id number] Room Number W184 Corporate ID Date of Study 04/04/2022 Referring Physician Number Date of 1970 [employer] Quita Del Toro Age 51 year(s) Interpreting [facility] Physician Cardiology Jean-Paul Klein MD Procedure Type of Study TTE procedure:ECHO COMPLETE 2D W/DOP W/COLOR. Procedure Date Date: 04/04/2022 Start: 02:02 PM Study Location: Portable Technical Quality: Adequate visualization Indications:Congesti ve heart failure. Patient Status: Routine Height: 63 inches Weight: 210 pounds BSA: 1.97 m^2 BMI: 37.2 kg/m^2 BP: 148/81 mmHg Conclusions Summary Normal tricuspid valve structure and function. Mild TR RVSP 39 mmHg Normal left ventricle structure and function. Left ventricular ejection fraction is visually estimated at 50%. Pseudonormal filling pattern noted. Signature ---- ---- Findings Left Ventricle Normal left ventricle structure and function. Left ventricular ejection fraction is visually estimated at 50%. Pseudonormal filling pattern noted. Right Ventricle Normal right ventricle structure and function. Normal right ventricle systolic pressure. Left Atrium Normal left atrium. Right Atrium Normal right atrium. Mitral Valve Normal mitral valve structure and function. Tricuspid Valve Normal tricuspid valve structure and function. Mild TR RVSP 39 mmHg Aortic Valve Normal aortic valve structure and function. Pulmonic Valve The pulmonic valve was not well visualized . Pericardial Effusion No evidence of pericardial effusion. Pleural Effusion No evidence of pleural effusion. M-Mode Measurements (cm) LVIDd: 4.03 cm LVIDs: 2.85 cm IVSd: 1.9 cm IVSs: 1.89 cm LVPWd: 2.06 cm AO Root Dimension: 2.82 cm Rt. Vent. Dimension: 3.64 cm LVOT: 1.98 cm Doppler Measurements: AV Velocity:0.03 m/s MV Peak E-Wave: 1.03 m/s AV Peak Gradient: 9.42 mmHg MV Peak A-Wave: 0.67 m/s AV Mean Gradient: 4.96 mmHg AV Area (Continuity):2.62 cm^2 TR Velocity:2.68 m/s Estimated RAP:10 mmHg TR Gradient:28.65 mmHg RVSP:38.65 mmHg Valves Mitral Valve Peak E-Wave: 1.03 m/s Peak A-Wave: 0.67 m/s E/A Ratio: 1.52 Peak Gradient: 4.21 mmHg Deceleration Time: 148.7 msec Aortic Valve Peak Velocity: 1.53 m/s Mean Velocity: 1.03 m/s Peak Gradient: 9.42 mmHg Mean Gradient: 4.96 mmHg Area (continuity): 2.62 cm^2 AV VTI: 22.34 cm Tricuspid Valve Estimated RVSP: 38.65 mmHg Estimated RAP: 10 mmHg TR Velocity: 2.68 m/s TR Gradient: 28.65 mmHg Pulmonic Valve Peak Velocity: 0.89 m/s Peak Gradient: 3.14 mmHg Estimated PASP: 38.65 mmHg LVOT Peak Velocity: 1.25 m/s Mean Velocity: 0.84 m/s Peak Gradient: 6.29 mmHg Mean Gradient: 3.33 mmHg LVOT Diameter: 1.98 cm LVOT VTI: 19.04 cm Structures Left Atrium LA Volume/Index: 51.88 ml /26 m^2 LA Area: 17.49 cm^2 Left Ventricle Diastolic Dimension: 4.03 cm Systolic Dimension: 2.85 cm Septum Diastolic: 1.9 cm Septum Systolic: 1.89 cm PW Diastolic: 2.06 cm FS: 29.3 % LV EDV/LV EDV Index: 71.29 ml/36 m^2 LV ESV/LV ESV Index: 30.85 ml/16 m^2 EF Calculated: 56.7 % LV Length: 7.79 cm LVOT Diameter: 1.98 cm Right Atrium RA Systolic Pressure: 10 mmHg Right Ventricle Diastolic Dimension: 3.64 cm RV Systolic Pressure: 38.65 mmHg Aorta/ Miscellaneous Aorta Aortic Root: 2.82 cm LVOT Diameter: 1.98 cm [employer] Phone: [employer] Phone: EKG 12 LeadOrdered By: Dean Pal on 04-04-2022 Atrial Rate 109 BPM [facility] Work Phone: P [place] 61 degrees [facility] Work Phone: P-R Interval 138 ms [facility] Work Phone: Q-T Interval 374 ms [facility] Work Phone: QRS Duration 86 ms [facility] Work Phone: [phone] QTc Calculation (Bazett) 503 ms [facility] Work Phone: R [place] -16 degrees [facility] Work Phone: T [place] 60 degrees [facility] [employer] Work Phone: Ventricular Rate 109 BPM [facility] [employer] Work Phone: [facility] [employer] Work Phone: EKG 12 Leadon 04-04-2022 Sinus tachycardia Otherwise normal ECG No previous ECGs available Confirmed by GHADA PAL ([id number]) on 04/04/2022 4:56:34 PM Ghada Bella MD - 04/04/2022 Sinus tachycardia Otherwise normal ECG No previous ECGs available Confirmed by GHADA PAL ([id number]) on 04/04/2022 4:56:34 PM [employer] Work Phone: Atrial Rate 101 BPM [employer] Work Phone: P [place] 68 degrees [employer] Work Phone: P-R Interval 160 ms [employer] Work Phone: Q-T Interval 430 ms [employer] Work Phone: QRS Duration 92 ms [facility] [employer] Work Phone: QTc Calculation (Bazett) 557 ms [employer] Work Phone: R [place] -22 degrees [facility] [employer] Work Phone: T [place] 224 degrees [facility] [employer] Work Phone: Ventricular Rate 101 BPM [facility] MARYVALEJanette [facility] [employer] Work Phone: Sinus tachycardia T wave abnormality, consider inferior ischemia T wave abnormality, consider anterolateral ischemia Prolonged QT Abnormal ECG When compared with ECG of 03-APR-2022 05:14, T wave inversion now evident in Inferior leads T wave inversion now evident in Anterolateral leads Confirmed by GHADA PAL ([id number]) on 04/04/2022 9:34:57 AM Ghada Bella MD - 04/04/2022 Sinus tachycardia T wave abnormality, consider inferior ischemia T wave abnormality, consider anterolateral ischemia Prolonged QT Abnormal ECG When compared with ECG of 03-APR-2022 05:14, T wave inversion now evident in Inferior leads T wave inversion now evident in Anterolateral leads Confirmed by GHADA PAL ([id number]) on 04/04/2022 9:34:57 AM [facility] [employer] Work Phone: [facility] [employer] Work Phone: Magnesiumon 04-04-2022 Magnesium [Mass/Vol] 2.0 mg/dL 1.7 - 2 .4 mg/dL [facility] Microscopic Urinalysison Bacteria, UA Negative Negative /HPF [facility] Epithelial Cells, UA 3-5 [facility] Hyaline Casts, UA 0-1 [facility] Interpretation and review of laboratory results Abnormal [facility] RBC, UA 0-2 [facility] Trichomonas, UA Present Abnormal None Seen /HPF [facility] WBC, UA 10-20 Abnormal [facility] No Panel Informationon 04-04 [facility] POCT Glucoseon 04-04-2022 Glucose [Mass/Vol] 238 mg/dL High 70 - 99 mg/dl [facility] Interpretation and review of laboratory results Abnormal [facility] Performed on ACCU-CHEK [facility] Glucose [Mass/Vol] 161 mg/dL High 70 - 99 mg/dl [facility] Interpretation and review of laboratory results Abnormal [facility] Performed on ACCU-CHEK [facility] Glucose [Mass/Vol] 350 mg/dL High 70 - 99 mg/dl [facility] Interpretation and review of laboratory results Abnormal [facility] Performed on ACCU-CHEK [facility] Glucose [Mass/Vol] 218 mg/dL High 70 - 99 mg/dl [facility] Interpretation and review of laboratory results Abnormal [facility] Performed on ACCU-CHEK [facility] Procalcitoninon 04-04-2022 Procalcitonin 0.07 ng/mL 0.00 - 0.15 ng/mL [facility] Comment on above: Suspected Sepsis: Low likelihood of sepsis <.50 ng/mL Increased likelihood of sepsis 0.50-2.00 ng/mL Antibiotics encouraged High risk of sepsis/shock >2.00 ng/mL Antibiotics strongly encouraged Suspected Lower Respiratory Tract Infections: Low likelihood of bacterial infection <0.24 ng/mL Increased likelihood of bacterial infection >0.24 ng/mL Antibiotics encouraged With successful antibiotic therapy, PCT levels should decrease rapidly. (Half-life of 24 to 36 hours.) Procalcitonin values from samples collected within the first 6 hours of systemic infection may still be low. Retesting may be indicated. Values from day 1 and day 4 can be entered into the Change in Procalcitonin Calculator to determine the patient's Mortality Risk Prognosis ([email or web address]) In healthy neonates, plasma Procalcitonin (PCT) concentrations increase gradually after , reaching peak values at about 24 hours of age then decrease to normal values below 0.5 ng/mL by 48-72 hours of age. Collection has been rescheduled by PRE[facility] at 04/04/2022 09:08 Reason: Patient in [facility] Urinalysison 04-04-2022 Bilirubin Urine Negative Negative [facility] Blood, Urine Negative Negative [facility] Clarity, UA Clear Clear [facility] Color, UA Yellow Straw/Yellow [facility] Glucose, Ur 100 mg/dL Abnormal Negative [facility] Interpretation and review of laboratory results Abnormal [facility] Ketones Ql (U) Negative Negative mg/dL [facility] Leukocyte esterase Test strip Ql (U) SMALL Abnormal Negative [facility] Nitrite, Urine Negative Negative [facility] pH, UA 5.5 [facility] Protein, UA Negative Negative mg/dL [facility] Specific [place], UA 1.012 [facility] Urobilinogen, Urine 1.0 <2.0 E.U./dL [facility] APTTon 04-03-2022 aPTT Coag (Bld) [Time] 27.5 s [facility] Comment on above: Effective 07/29/2020: Heparin Therapeutic Range: 64.0 98.0 seconds. Brain Natriuretic Peptideon 04-03-2022 Natriuretic peptide B (Bld) [Mass/Vol] 4734 pg/mL [facility] Comment on above: NT-pro BNP ACUTE Int erpretive Guidelines: Age Cutoff for Heart Failure Less than 50 yrs 450 pg/mL 50-75 yrs 900 pg/mL Greater than 75 yrs 1800 pg/mL NT-pro BNP NON-ACUTE Interpretive Guidelines: Age Reference Range Less than 74 yrs 0-125 pg/mL Greater than 74 yrs 0-450 pg/mL Other possible causes of an elevated NT-proBNP include: cardiac ischemia, acute coronary syndrome, COPD, pneumonia, atrial fibrillation, pulmonary emboli, pulmonary hypertension, pericarditis Reference: Gaetano Clarke, et al. NT-proBNP testing for diagnosis and short-term prognosis in acute destabilized HF: an international pooled analysis of 1256 patients. Heart Journal. 2006;27:330-337 CBC with Auto Differentialon 04-03-2022 Basophils (Bld) [#/Vol] 0.1 10*3/uL 0.0 - 0.2 K/uL [facility] Basophils/100 WBC (Bld) 1.1 % B [facility] Eosinophils (Bld) [#/Vol] 0.2 10*3/uL 0.0 - 0.7 K/uL [facility] Eosinophils/100 WBC (Bld) 1.8 % [facility] Hematocrit (Bld) [Volume fraction] 43.0 % 37.0 - 47.0 % [facility] Hemoglobin (Bld) [Mass/Vol] 14.7 g/dL 12.0 - 16.0 g/dL [facility] Interpretation and review of laboratory results Abnormal [facility] Lymphocytes (Bld) [#/Vol] 3.0 10*3/uL 1.0 - 4.8 K/uL [facility] Lymphocytes/100 WBC (Bld) 32.5 % [facility] MCH (RBC) [Entitic mass] 31.5 pg High 27.0 - 31.3 pg [facility] MCHC (RBC) [Mass/Vol] 34.2 % 33.0 - 37.0 % [facility] MCV (RBC) [Entitic vol] 92.1 fL 82.0 - 100.0 fL [facility] Monocytes (Bld) [#/Vol] 0.8 10*3/uL 0.2 - 0.8 K/uL [facility] Monocytes/100 WBC (Bld) 8.7 % B [facility] Neutrophils Absolute 5.1 K/uL 1.4 - 6 .5 K/uL [facility] Neutrophils/100 WBC (Bld) 55.9 % [facility] Platelet distribution width (Bld) [Ratio] 14.4 % 11.5 - 14.5 % [facility] Platelets (Bld) [#/Vol] 162 10*3/uL 130 - 400 K/uL [facility] RBC (Bld) [#/Vol] 4.67 10*6/uL [facility] WBC (Bld) [#/Vol] 9.2 10*3/uL 4.8 - 10.8 K/uL [facility] COVID-19, Rapidon 04-03-2022 SARS-CoV-2 (COVID-19) RNA SHAI+probe Ql (Unsp spec) Not detected Not Detected [facility] Comment on above: Rapid NAAT: Negative results should be treated as presumptive and, if inconsistent with clinical signs and symptoms or necessary for patient management, should be tested with an alternative molecular assay. Negative results do not preclude SARS-CoV-2 infection and should not be used as the sole basis for patient management decisions. This test has been authorized by the FDA under an Emergency Use Authorization (EUA) for use by authorized laboratories. Fact sheet for Healthcare Providers: https://www.fda.gov/media/175894/download Fact sheet for Patients: https://www.fda.gov/media/208779/download METHODOLOGY: Isothermal Nucleic Acid Amplification [facility] CTA CHEST W WO CONTRASTon NO EVIDENCE OF PULMONARY EMBOLI. FINDINGS CONSISTENT WITH MILD CARDIAC DECOMPENSATION WITH A SMALL RIGHT PLEURAL EFFUSION. ATYPICAL PNEUMONIA SHOULD BE EXCLUDED CLINICALLY. [facility] CTA CHEST W WO CONTRAST: 04/03/2022 CLINICAL HISTORY: Shortness of breath. COMPARISON: None available. Spiral enhanced images were obtained of the chest during the infusion of approximately 75 mL of Isovue 300 contrast with pulmonary artery CTA protocol. Routine and volume rendered images were obtained on a 3-dimensional workstation. All CT scans at this facility use dose modulation, iterative reconstruction, and/or weight based dosing when appropriate to reduce radiation dose to as low as reasonably achievable. FINDINGS: There are no filling defects identified within the pulmonary arterial vasculature to suggest pulmonary emboli. The thoracic aorta is normal in caliber with minimal atherosclerotic plaquing of the arch. There is no dissection. The heart is mildly enlarged. A small layering right pleural effusion is present Minimal diffuse interstitial prominence and groundglass opacity is most likely edema. Atypical pneumonia should be excluded clinically. There is no focal consolidation, worrisome nodules, lymphadenopathy, left pleural or pericardial effusions identified. Mild degenerative changes of the thoracic spine are noted. There are no fractures identified. The limited images of the upper abdomen are noncontributory. [facility] Michael Fraga MD - 04/03/2022 CTA CHEST W WO CONTRAST: 04/03/2022 CLINICAL HISTORY: Shortness of breath. COMPARISON: None available. Spiral enhanced images were obtained of the chest during the infusion of approximately 75 mL of Isovue 300 contrast with pulmonary artery CTA protocol. Routine and volume rendered images were obtained on a 3-dimensional workstation. All CT scans at this facility use dose modulation, iterative reconstruction, and/or weight based dosing when appropriate to reduce radiation dose to as low as reasonably achievable. FINDINGS: There are no filling defects identified within the pulmonary arterial vasculature to suggest pulmonary emboli. The thoracic aorta is normal in caliber with minimal atherosclerotic plaquing of the arch. There is no dissection. The heart is mildly enlarged. A small layering right pleural effusion is present Minimal diffuse interstitial prominence and groundglass opacity is most likely edema. Atypical pneumonia should be excluded clinically. There is no focal consolidation, worrisome nodules, lymphadenopathy, left pleural or pericardial effusions identified. Mild degenerative changes of the thoracic spine are noted. There are no fractures identified. The limited images of the upper abdomen are noncontributory. IMPRESSION: NO EVIDENCE OF PULMONARY EMBOLI. FINDINGS CONSISTENT WITH MILD CARDIAC DECOMPENSATION WITH A SMALL RIGHT PLEURAL EFFUSION. ATYPICAL PNEUMONIA SHOULD BE EXCLUDED CLINICALLY. [facility] [employer] Work Phone: [facility] [employer] Work Phone: Radiology Study observation (narrative) [facility] [employer] [facility] [employer] Work Phone: Comprehensive Metabolic Pane l w/ Reflex to MGon 04-03-2022 Albumin [Mass/Vol] 4.3 g/dL 3.5 - 4.6 g/dL [facility] ALP (Bld) [Catalytic activity/Vol] 102 U/L 40 - 130 U/L [facility] [employer] ALT [Catalytic activity/Vol] 27 U/L 0 - 33 U/L [facility] [employer] Anion gap [Moles/Vol] 13 mmol/L [facility] [employer] AST [Catalytic activity/Vol] 22 U/L 0 - 35 U/L [facility] [employer] Bilirubin [Mass/Vol] 0.7 mg/dL 0.2 - 0 .7 mg/dL [facility] [employer] Calcium [Mass/Vol] 9.0 mg/dL 8.5 - 9.9 mg/dL [facility] [employer] Chloride [Moles/Vol] 104 mmol/L [facility] CO2 [Moles/Vol] 22 mmol/L [facility] Creatinine [Mass/Vol] 0.78 mg/dL 0.50 - 0.90 mg/dL [facility] Free PSA/Total PSA [Mass fraction] 7.6 g/dL 6.3 - 8.0 g/dL [facility] GFR >60.0 >60 [facility] Comment on above: >60 mL/min/1.73m2 EG FR, calc. for ages 18 and older using the MDRD formula (not corrected for weight), is valid for stable renal function. GFR Non- >60.0 >60 [facility] Comment on above: >60 mL/min/1.73m2 EG FR, calc. for ages 18 and older using the MDRD formula (not corrected for weight), is valid for stable renal function. Globulin (S) [Mass/Vol] 3.3 g/dL 2.3 - 3.5 g/dL [facility] Glucose [Mass/Vol] 248 mg/dL High 70 - 99 mg/dL [facility] Interpretation and review of laboratory results Abnormal [facility] Potassium reflex Magnesium 4.1 [facility] Sodium [Moles/Vol] 139 mmol/L [facility] Urea nitrogen (BldV) [Mass/Vol] 13 mg/dL 6 - 20 mg/dL [facility] D-Dimer, Quantitativeon 03-25 D-Dimer, Quant 1.61 Critically high [facility] Comment on above: VTE (DVT or PE) cut- off = 0.50 mg/L [facility] Interpretation and review of laboratory results Abnormal [facility] CALL [facility] tel. [phone], Coag results called to and read back by /NI, 04/03/2022 06:14, by [facility] Hemoglobin A1con 04-03-2022 HbA1c (Bld) [Mass fraction] 10.0 % High 4.8 - 5.9 % [facility] Interpretation and review of laboratory results Abnormal [facility] No Panel Informationon 04-03 [facility] POCT Glucoseon 04-03-2022 Glucose [Mass/Vol] 299 mg/dL High 70 - 99 mg/dl [facility] Interpretation and review of laboratory results Abnormal [facility] Performed on ACCU-CHEK [facility] Glucose [Mass/Vol] 318 mg/dL High 70 - 99 mg/dl [facility] Interpretation and review of laboratory results Abnormal [facility] Performed on ACCU-CHEK [facility] Glucose [Mass/Vol] 366 mg/dL High 70 - 99 mg/dl [facility] Interpretation and review of laboratory results Abnormal [facility] Performed on ACCU-CHEK [facility] Procalcitoninon 04-03-2022 Procalcitonin 0.06 ng/mL 0.00 - 0.15 ng/mL [facility] Comment on above: Suspected Sepsis: Low likelihood of sepsis <.50 ng/mL Increased likelihood of sepsis 0.50-2.00 ng/mL Antibiotics encouraged High risk of sepsis/shock >2.00 ng/mL Antibiotics strongly encouraged Suspected Lower Respiratory Tract Infections: Low likelihood of bacterial infection <0.24 ng/mL Increased likelihood of bacterial infection >0.24 ng/mL Antibiotics encouraged With successful antibiotic therapy, PCT levels should decrease rapidly. (Half-life of 24 to 36 hours.) Procalcitonin values from samples collected within the first 6 hours of systemic infection may still be low. Retesting may be indicated. Values from day 1 and day 4 can be entered into the Change in Procalcitonin Calculator to determine the patient's Mortality Risk Prognosis ([email or web address]) In healthy neonates, plasma Procalcitonin (PCT) concentrations increase gradually after , reaching peak values at about 24 hours of age then decrease to normal values below 0.5 ng/mL by 48-72 hours of age. [facility] Protime-INRon 04-03-2022 INR Coag (Bld) [Relative time] 1.1 {INR} [facility] PT Coag (PPP) [Time] 14 s [facility] Rapid Influenza A/B Antigens on 04-03-2022 Influenza A by PCR Negative [facility] Influenza B by PCR Negative [facility] Troponinon 04-03-2022 Troponin I.cardiac [Mass/Vol] ng/mL 0.000 - 0.010 ng/mL [facility] Comment on above: Methodology by Tropjanette Hooker. [facility] Troponin I.cardiac [Mass/Vol] ng/mL 0.000 - 0.010 ng/mL [facility] Comment on above: Methodology by Tropo bela T. [facility] Troponin I.cardiac [Mass/Vol] ng/mL 0.000 - 0.010 ng/mL [facility] Comment on above: Methodology by Tropo bela Hooker. US DUP LOWER EXTREMITIES JACKELIN ATERAL VENOUSon 04-03-2022 NO DVT IDENTIFIED IN EITHER LOWER EXTREMITY. [facility] US DUP LOWER EXTREMITIES BILATERAL VENOUS : 04/03/2022 CLINICAL HISTORY: Lower extremity swelling and shortness of breath. COMPARISON: 03/19/2015. Grayscale, compression, color and waveform Doppler analysis of both lower extremity deep venous systems was performed with augmentation. FINDINGS: There is no deep venous thrombosis, abnormal masses, fluid collections or other findings of concern identified within either lower extremity. [facility] Michael Fraga MD - 04/03/2022 US DUP LOWER EXTREMITIES BILATERAL VENOUS : 04/03/2022 CLINICAL HISTORY: Lower extremity swelling and shortness of breath. COMPARISON: 03/19/2015. Grayscale, compression, color and waveform Doppler analysis of both lower extremity deep venous systems was performed with augmentation. FINDINGS: There is no deep venous thrombosis, abnormal masses, fluid collections or other findings of concern identified within either lower extremity. IMPRESSION: NO DVT IDENTIFIED IN EITHER LOWER EXTREMITY. [facility] [employer] Work Phone: [facility] Work Phone: Radiology Study observation (narrative) [facility] [employer] Work Phone: XR CHEST PORTABLEon 04-03-20 22 BORDERLINE CARDIOMEGALY. NO OTHER EVIDENCE OF ACTIVE CARDIOPULMONARY DISEASE, BY PORTABLE CHEST RADIOGRAPHY. [facility] XR CHEST PORTABLE : 04/03/2022 CLINICAL HISTORY: PNA . COMPARISON: None available TECHNIQUE: A portable upright AP radiograph of the chest was obtained. FINDINGS: The heart is borderline enlarged, exaggerated by technique. There is no significant pulmonary infiltrate, sizable pleural effusion, vascular congestion, pneumothorax, or displaced fractures identified. [facility] Michael Fraga MD - 04/03/2022 XR CHEST PORTABLE : 04/03/2022 CLINICAL HISTORY: PNA . COMPARISON: None available TECHNIQUE: A portable upright AP radiograph of the chest was obtained. FINDINGS: The heart is borderline enlarged, exaggerated by technique. There is no significant pulmonary infiltrate, sizable pleural effusion, vascular congestion, pneumothorax, or displaced fractures identified. IMPRESSION: BORDERLINE CARDIOMEGALY. NO OTHER EVIDENCE OF ACTIVE CARDIOPULMONARY DISEASE, BY PORTABLE CHEST RADIOGRAPHY. [employer] Phone: Radiology Study observation (narrative) [employer] Phone: XR CHEST PORTABLEOrdered By: Michael Fraga on 04-03-2022 [facility] Submittable Phone: .Auto Diffon 08-13-2021 Basophil, Absolute 0.10 10 3/mcL Normal 0.00-0.27 Counts include 234 beds at the [facility] ([place]) Comment on above: Performed By: #### C BC, ADIFF, ANEU, LIP, CMP, GFR, PBNP, TROPHS #### [address] [address] Basophils/100 WBC (Bld) 1.0 % Normal 0.0-2.5 [facility] ([place]) Comment on above: Performed By: #### C BC, ADIFF, ANEU, LIP, CMP, GFR, PBNP, TROPHS #### [address] [address] Eosinophil, Absolute 0.00 10 3/mcL Normal 0.00-0.65 [facility] ([place]) Comment on above: Performed By: #### C BC, ADIFF, ANEU, LIP, CMP, GFR, PBNP, TROPHS #### [address] [address] Eosinophils/100 WBC (Bld) 0.6 % Normal 0.0-6.0 [facility] ([place]) Comment on above: Performed By: #### C BC, ADIFF, ANEU, LIP, CMP, GFR, PBNP, TROPHS #### [address] [address] Lymphocyte, Absolute 1.70 10 3/mcL Normal 0.90-4.32 [facility] ([place]) Comment on above: Performed By: #### C BC, ADIFF, ANEU, LIP, CMP, GFR, PBNP, TROPHS #### [address] [address] Lymphocytes/100 WBC (Bld) 35.5 % Normal 20.0-40.0 [facility] ([place] Comment on above: Performed By: #### C BC, ADIFF, ANEU, LIP, CMP, GFR, PBNP, TROPHS #### [address] [address] Monocyte, Absolute 0.90 10 3/mcL Normal 0.09-1.40 Counts include 234 beds at the [facility] ([place]) Comment on above: Performed By: #### C BC, ADIFF, ANEU, LIP, CMP, GFR, PBNP, TROPHS #### [address] [address] Monocytes/100 WBC (Bld) 19.0 % High 2.0-13.0 [facility] ([place]) Comment on above: Performed By: #### C BC, ADIFF, ANEU, LIP, CMP, GFR, PBNP, TROPHS #### [address] [address] Neutrophils/100 WBC (Bld) 43.9 % Low 50.0-75.0 [facility] ([place]) Comment on above: Performed By: #### C BC, ADIFF, ANEU, LIP, CMP, GFR, PBNP, TROPHS #### [address] [address] .GFRon 08-13-2021 GFR >60 Normal [facility] ([place]) Comment on above: Result Comment: GFR Population mean for , Non- Americans Ages 20-29 = 116 mL/min/1.73 sq.m. Ages 30-39 = 107 mL/min/1.73 sq.m. Ages 40-49 = 99 mL/min/1.73 sq.m. Ages 50-59 = 93 mL/min/1.73 sq.m. Ages 60-69 = 85 mL/min/1.73 sq.m. Ages 70+ = 75 mL/min/1.73 sq.m. Chronic Kidney Disease: Less than 60 mL/min/1.73 square meters End Stage Renal Disease: Less than 15 mL/min/1.73 square meters Performed By: #### C BC, ADIFF, ANEU, LIP, CMP, GFR, PBNP, TROPHS #### [address] [address] GFR Non- >60 Normal [facility] ([place]) Comment on above: Result Comment: GFR Population mean for , Non- Americans Ages 20-29 = 116 mL/min/1.73 sq.m. Ages 30-39 = 107 mL/min/1.73 sq.m. Ages 40-49 = 99 mL/min/1.73 sq.m. Ages 50-59 = 93 mL/min/1.73 sq.m. Ages 60-69 = 85 mL/min/1.73 sq.m. Ages 70+ = 75 mL/min/1.73 sq.m. Chronic Kidney Disease: Less than 60 mL/min/1.73 square meters End Stage Renal Disease: Less than 15 mL/min/1.73 square meters Performed By: #### C BC, ADIFF, ANEU, LIP, CMP, GFR, PBNP, TROPHS #### [address] [address] .NEUABSon 08-13-2021 Neutrophil, Absolute 2.10 10 3/mcL Low 2.25-8.10 [facility] ([place]) Comment on above: Performed By: #### C BC, ADIFF, ANEU, LIP, CMP, GFR, PBNP, TROPHS #### [address] [address] BMPon 08-13-2021 BUN/Creatinine Ratio 21.1 ratio Normal 10.0-22.0 [facility] ([place]) Comment on above: Performed By: #### C BC, ADIFF, ANEU, LIP, CMP, GFR, PBNP, TROPHS #### [address] [address] Calcium [Mass/Vol] 8.6 mg/dL Normal 8.4-10.1 [facility] ([place]) Comment on above: Result Comment: No te - New Reference Range in effect 20 Performed By: #### C BC, ADIFF, ANEU, LIP, CMP, GFR, PBNP, TROPHS #### [address] [address] Chloride [Moles/Vol] 102 mmol/L Normal 98-110 [facility] ([place]) Comment on above: Performed By: #### C BC, ADIFF, ANEU, LIP, CMP, GFR, PBNP, TROPHS #### [address] [address] CO2 [Moles/Vol] 30 mmol/L Normal 22-32 [facility] ([place]) Comment on above: Performed By: #### C BC, ADIFF, ANEU, LIP, CMP, GFR, PBNP, TROPHS #### [address] [address] Creatinine [Mass/Vol] 0.90 mg/dL Normal 0.50-1.20 Counts include 234 beds at the [facility] ([place]) Comment on above: Performed By: #### C BC, ADIFF, ANEU, LIP, CMP, GFR, PBNP, TROPHS #### [address] [address] Electrolyte Balance 6.0 mEq/L Normal 4.0-15.0 [facility] ([place]) Comment on above: Performed By: #### C BC, ADIFF, ANEU, LIP, CMP, GFR, PBNP, TROPHS #### [address] [address] Glucose [Mass/Vol] 139 mg/dL High 70-110 [facility] ([place]) Comment on above: Performed By: #### C BC, ADIFF, ANEU, LIP, CMP, GFR, PBNP, TROPHS #### [address] [address] Potassium [Moles/Vol] 3.9 mmol/L Normal 3.5-5.0 Counts include 234 beds at the [facility] ([place]) Comment on above: Result Comment: Spec imen slightly hemolyzed. Results may be falsely elevated. Performed By: #### C BC, ADIFF, ANEU, LIP, CMP, GFR, PBNP, TROPHS #### [address] [address] Sodium [Moles/Vol] 138 mmol/L Normal 136-145 [facility] ([place]) Comment on above: Performed By: #### C BC, ADIFF, ANEU, LIP, CMP, GFR, PBNP, TROPHS #### [address] [address] Urea nitrogen [Mass/Vol] 19.0 mg/dL Normal 8.0-22.0 [facility] ([place] Comment on above: Performed By: #### C BC, ADIFF, ANEU, LIP, CMP, GFR, PBNP, TROPHS #### [address] [address] CBCon 08-13-2021 Erythrocyte distribution width (RBC) [Ratio] 16.6 % High 11.5-15.5 [facility] ([place] Comment on above: Performed By: #### C BC, ADIFF, ANEU, LIP, CMP, GFR, PBNP, TROPHS #### [address] [address] Hematocrit (Bld) [Volume fraction] 41.0 % Normal 34.0-46.0 [facility] ([place] Comment on above: Performed By: #### C BC, ADIFF, ANEU, LIP, CMP, GFR, PBNP, TROPHS #### [address] [address] Hgb 13.5 G/dL Normal 12.0-16.0 [facility] ([place] Comment on above: Performed By: #### C BC, ADIFF, ANEU, LIP, CMP, GFR, PBNP, TROPHS #### [address] [address] MCH (RBC) [Entitic mass] 30.0 pg Normal 27.0-33.0 [facility] ([place] Comment on above: Performed By: #### C BC, ADIFF, ANEU, LIP, CMP, GFR, PBNP, TROPHS #### [place] [address] MCHC 32.9 G/dL Normal 32.0-36.0 [facility] ([place] Comment on above: Performed By: #### C BC, ADIFF, ANEU, LIP, CMP, GFR, PBNP, TROPHS #### [place] [id number] MCV (RBC) [Entitic vol] 91.2 fL Normal 80.0-99.0 [facility] ([place]) Comment on above: Performed By: #### C BC, ADIFF, ANEU, LIP, CMP, GFR, PBNP, TROPHS #### [address] [address] Platelet 147 10 3/mcL Low 150-450 [facility] ([place]) Comment on above: Performed By: #### C BC, ADIFF, ANEU, LIP, CMP, GFR, PBNP, TROPHS #### [address] [address] Platelet mean volume (Bld) [Entitic vol] 11.2 fL High 6.6-10.5 [facility] ([place] Comment on above: Performed By: #### C BC, ADIFF, ANEU, LIP, CMP, GFR, PBNP, TROPHS #### [place] [id number] RBC 4.49 10 6/mcL Normal 4.10-5.30 [facility] ([place] Comment on above: Performed By: #### C BC, ADIFF, ANEU, LIP, CMP, GFR, PBNP, TROPHS #### [place] [address] [place], [place] [address] WBC 4.90 10 3/mcL Normal 4.50-10.80 [facility] ([place] Comment on above: Performed By: #### C BC, ADIFF, ANEU, LIP, CMP, GFR, PBNP, TROPHS #### [facility] [address], [place] [address] LABORATORYOrdered By: Romy Carmona on 08-13-2021 Blood Glucose Testing Reason Routine (08/13/21 12:34 PM) [facility] Glucose [Mass/Vol] 198 mg/dL Invalid Interpretation Code 70 - 110 mg/dL [facility] Blood Glucose Testing Reason Routine (08/13/21 8:22 AM) [facility] Glucose [Mass/Vol] 144 mg/dL Invalid Interpretation Code 70 - 110 mg/dL [facility] LABORATORYOrdered By: SYSTEM SYSTEM on 08-13-2021 Base excess Calc (BldMV) [Moles/Vol] 6.0 mEq/L Invalid Interpretation Code 4.0 - 15.0 mEq/L ADM SS Basophils (Bld) [#/Vol] 0.10 103/mcL Invalid Interpretation Code 0.00 - 0.27 10^3/mcL AH Remisol SS Basophils/100 WBC (Bld) 1.0 % Invalid Interpretation Code 0.0 - 2.5 % AH Remisol SS Calcium [Mass/Vol] 8.6 mg/dL Invalid Interpretation Code 8.4 - 10.1 mg/dL AH ADM SS Chloride [Moles/Vol] 102 mmol/L Invalid Interpretation Code 98 - 110 mEq/L AH ADM SS CO2 [Moles/Vol] 30 mmol/L Invalid Interpretation Code 22 - 32 mEq/L AH ADM SS Creatinine [Mass/Vol] 0.90 mg/dL Invalid Interpretation Code 0.50 - 1.20 mg/dL AH ADM SS Eosinophils (Bld) [#/Vol] 0.00 103/mcL Invalid Interpretation Code 0.00 - 0.65 10^3/mcL AH Remisol SS Eosinophils/100 WBC (Bld) 0.6 % Invalid Interpretation Code 0.0 - 6.0 % AH Remisol SS Erythrocyte distribution width (RBC) [Ratio] 16.6 % Invalid Interpretation Code 11.5 - 15.5 % AH Remisol SS GFR/1.73 sq M.predicted among blacks MDRD (S/P/Bld) [Vol rate/Area] ml/min/1.73sqm Invalid Interpretation Code AH ADM SS GFR/1.73 sq M.predicted among non-blacks MDRD (S/P/Bld) [Vol rate/Area] ml/min/1.73sqm Invalid Interpretation Code ADM SS Glucose [Mass/Vol] 139 mg/dL Invalid Interpretation Code 70 - 110 mg/dL AH ADM SS Hematocrit (Bld) [Volume fraction] 41.0 % Invalid Interpretation Code 34.0 - 46.0 % AH Remisol SS Hemoglobin (Bld) [Mass/Vol] 13.5 G/dL Invalid Interpretation Code 12.0 - 16.0 G/dL AH Remisol SS Lymphocytes (Bld) [#/Vol] 1.70 103/mcL Invalid Interpretation Code 0.90 - 4.32 10^3/mcL AH Remisol SS Lymphocytes/100 WBC (Bld) 35.5 % Invalid Interpretation Code 20.0 - 40.0 % AH Remisol SS Magnesium [Mass/Vol] 2.2 mg/dL Invalid Interpretation Code 1.6 - 2.4 mg/dL AH ADM SS Comment on above: Result Comment: Spec imen slightly hemolyzed. Results may be falsely elevated. MCH (RBC) [Entitic mass] 30.0 pg Invalid Interpretation Code 27.0 - 33.0 pg AH Remisol SS MCHC (RBC) [Mass/Vol] 32.9 G/dL Invalid Interpretation Code 32.0 - 36.0 G/dL AH Remisol SS MCV (RBC) [Entitic vol] 91.2 fL Invalid Interpretation Code 80.0 - 99.0 fL AH Remisol SS Monocytes (Bld) [#/Vol] 0.90 103/mcL Invalid Interpretation Code 0.09 - 1.40 10^3/mcL AH Remisol SS Monocytes/100 WBC (Bld) 19.0 % Invalid Interpretation Code 2.0 - 13.0 % AH Remisol SS Neutrophils (Bld) [#/Vol] 2.10 103/mcL Invalid Interpretation Code 2.25 - 8.10 10^3/mcL AH Remisol SS Neutrophils/100 WBC (Bld) 43.9 % Invalid Interpretation Code 50.0 - 75.0 % AH Remisol SS Platelet mean volume (Bld) [Entitic vol] 11.2 fL Invalid Interpretation Code 6.6 - 10.5 fL AH Remisol SS Platelets (Bld) [#/Vol] 147 103/mcL Invalid Interpretation Code 150 - 450 10^3/mcL AH Remisol SS Potassium [Moles/Vol] 3.9 mmol/L Invalid Interpretation Code 3.5 - 5.0 mEq/L AH ADM SS Comment on above: Result Comment: Spec imen slightly hemolyzed. Results may be falsely elevated. RBC (Bld) [#/Vol] 4.49 106/mcL Invalid Interpretation Code 4.10 - 5.30 10^6/mcL AH Remisol SS Sodium [Moles/Vol] 138 mmol/L Invalid Interpretation Code 136 - 145 mEq/L AH ADM SS Urea nitrogen [Mass/Vol] 19.0 mg/dL Invalid Interpretation Code 8.0 - 22.0 mg/dL AH ADM SS Urea nitrogen/Creatinine [Mass ratio] 21.1 ratio Invalid Interpretation Code 10.0 - 22.0 ratio AH ADM SS WBC (Bld) [#/Vol] 4.90 103/mcL Invalid Interpretation Code 4.50 - 10.80 10^3/mcL AH Remisol SS MGon 08-13-2021 Magnesium [Mass/Vol] 2.2 mg/dL Normal 1.6-2.4 [facility] ([place]) Comment on above: Result Comment: Spec imen slightly hemolyzed. Results may be falsely elevated. Performed By: #### C BC, ADIFF, ANEU, LIP, CMP, GFR, PBNP, TROPHS #### [place] [address] [address] .GFRon 08-12-2021 GFR >60 Normal [facility] ([place]) Comment on above: Result Comment: GFR Population mean for , Non- Americans Ages 20-29 = 116 mL/min/1.73 sq.m. Ages 30-39 = 107 mL/min/1.73 sq.m. Ages 40-49 = 99 mL/min/1.73 sq.m. Ages 50-59 = 93 mL/min/1.73 sq.m. Ages 60-69 = 85 mL/min/1.73 sq.m. Ages 70+ = 75 mL/min/1.73 sq.m. Chronic Kidney Disease: Less than 60 mL/min/1.73 square meters End Stage Renal Disease: Less than 15 mL/min/1.73 square meters Performed By: #### C BC, ADIFF, ANEU, LIP, CMP, GFR, PBNP, TROPHS #### [address] [address] GFR Non- 57 ml/min/1.73sqm Normal [facility] ([place]) Comment on above: Result Comment: GFR Population mean for , Non- Americans Ages 20-29 = 116 mL/min/1.73 sq.m. Ages 30-39 = 107 mL/min/1.73 sq.m. Ages 40-49 = 99 mL/min/1.73 sq.m. Ages 50-59 = 93 mL/min/1.73 sq.m. Ages 60-69 = 85 mL/min/1.73 sq.m. Ages 70+ = 75 mL/min/1.73 sq.m. Chronic Kidney Disease: Less than 60 mL/min/1.73 square meters End Stage Renal Disease: Less than 15 mL/min/1.73 square meters Performed By: #### C BC, ADIFF, ANEU, LIP, CMP, GFR, PBNP, TROPHS #### [address] [address] .Manual Diffon 08-12-2021 Basophil %, Manual 1.0 % Normal 0.0-2.5 [facility] ([place]) Comment on above: Performed By: #### C BC, ADIFF, ANEU, LIP, CMP, GFR, PBNP, TROPHS #### [address] [address] Basophil, Abs Manual 0.04 10 3/mcL Normal 0.00-0.27 [facility] ([place]) Comment on above: Performed By: #### C BC, ADIFF, ANEU, LIP, CMP, GFR, PBNP, TROPHS #### [address] [address] Cells Counted 100 Normal [facility] ([place]) Comment on above: Performed By: #### C BC, ADIFF, ANEU, LIP, CMP, GFR, PBNP, TROPHS #### [address] [address] Eosinophil %, Manual 0.0 % Normal 0.0-6.0 [facility] ([place] Comment on above: Performed By: #### C BC, ADIFF, ANEU, LIP, CMP, GFR, PBNP, TROPHS #### [address] [address] Eosinophil, Abs Manual 0.00 10 3/mcL Normal 0.00-0.65 [facility] ([place] Comment on above: Performed By: #### C BC, ADIFF, ANEU, LIP, CMP, GFR, PBNP, TROPHS #### [address] [address] Lymphocyte %, Manual 11.0 % Low 20.0-40.0 [facility] ([place]) Comment on above: Performed By: #### C BC, ADIFF, ANEU, LIP, CMP, GFR, PBNP, TROPHS #### [address] [address] Lymphocyte, Abs Manual 0.49 10 3/mcL Low 0.90-4.32 [facility] ([place] Comment on above: Performed By: #### C BC, ADIFF, ANEU, LIP, CMP, GFR, PBNP, TROPHS #### [address] [address] Monocyte %, Manual 4.0 % Normal 2.0-13.0 [facility] ([place]) Comment on above: Performed By: #### C BC, ADIFF, ANEU, LIP, CMP, GFR, PBNP, TROPHS #### [address] [address] Monocyte, Abs Manual 0.18 10 3/mcL Normal 0.09-1.40 [facility] ([place]) Comment on above: Performed By: #### C BC, ADIFF, ANEU, LIP, CMP, GFR, PBNP, TROPHS #### [address] [address] Neutrophil %, Manual 84.0 % High 50.0-75.0 [facility] ([place]) Comment on above: Performed By: #### C BC, ADIFF, ANEU, LIP, CMP, GFR, PBNP, TROPHS #### [address] [address] Neutrophil, Abs Manual 3.78 10 3/mcL Normal 2.25-8.10 [facility] ([place] Comment on above: Performed By: #### C BC, ADIFF, ANEU, LIP, CMP, GFR, PBNP, TROPHS #### [address] [address] .Morphon 08-12-2021 Anisocytosis Ql (Bld) Slight Normal Counts include 234 beds at the [facility] ([place]) Comment on above: Performed By: #### C BC, ADIFF, ANEU, LIP, CMP, GFR, PBNP, TROPHS #### [address] [address] Platelet Estimate Normal Normal [facility] ([place] Comment on above: Performed By: #### C BC, ADIFF, ANEU, LIP, CMP, GFR, PBNP, TROPHS #### [address] [address] Tear Cell Rare Normal [facility] ([place] Comment on above: Performed By: #### C BC, ADIFF, ANEU, LIP, CMP, GFR, PBNP, TROPHS #### [address] [address] BMPon 08-12-2021 BUN/Creatinine Ratio 13.6 ratio Normal 10.0-22.0 [facility] ([place] Comment on above: Performed By: #### C BC, ADIFF, ANEU, LIP, CMP, GFR, PBNP, TROPHS #### [address] [address] Calcium [Mass/Vol] 9.3 mg/dL Normal 8.4-10.1 [facility] ([place]) Comment on above: Result Comment: No te - New Reference Range in effect 20 Performed By: #### C BC, ADIFF, ANEU, LIP, CMP, GFR, PBNP, TROPHS #### [address] [address] Chloride [Moles/Vol] 101 mmol/L Normal 98-110 [facility] ([place] Comment on above: Performed By: #### C BC, ADIFF, ANEU, LIP, CMP, GFR, PBNP, TROPHS #### [address] [address] CO2 [Moles/Vol] 32 mmol/L Normal 22-32 [facility] ([place] Comment on above: Performed By: #### C BC, ADIFF, ANEU, LIP, CMP, GFR, PBNP, TROPHS #### [address] [address] Creatinine [Mass/Vol] 1.03 mg/dL Normal 0.50-1.20 Counts include 234 beds at the [facility] ([place]) Comment on above: Performed By: #### C BC, ADIFF, ANEU, LIP, CMP, GFR, PBNP, TROPHS #### [address] [address] Electrolyte Balance 8.0 mEq/L Normal 4.0-15.0 [facility] ([place]) Comment on above: Performed By: #### C BC, ADIFF, ANEU, LIP, CMP, GFR, PBNP, TROPHS #### [address] [address] Glucose [Mass/Vol] 139 mg/dL High 70-110 [facility] ([place] Comment on above: Performed By: #### C BC, ADIFF, ANEU, LIP, CMP, GFR, PBNP, TROPHS #### [address] [address] Potassium [Moles/Vol] 3.6 mmol/L Normal 3.5-5.0 Counts include 234 beds at the [facility] ([place] Comment on above: Performed By: #### C BC, ADIFF, ANEU, LIP, CMP, GFR, PBNP, TROPHS #### [place] [id number] Sodium [Moles/Vol] 141 mmol/L Normal 136-145 [facility] ([place]) Comment on above: Performed By: #### C BC, ADIFF, ANEU, LIP, CMP, GFR, PBNP, TROPHS #### [place] [address] Urea nitrogen [Mass/Vol] 14.0 mg/dL Normal 8.0-22.0 [facility] ([place] Comment on above: Performed By: #### C BC, ADIFF, ANEU, LIP, CMP, GFR, PBNP, TROPHS #### [place] [phone] CBCon 08-12-2021 Erythrocyte distribution width (RBC) [Ratio] 16.9 % High 11.5-15.5 [facility] ([place] Comment on above: Performed By: #### C BC, ADIFF, ANEU, LIP, CMP, GFR, PBNP, TROPHS #### [place] [phone] Hematocrit (Bld) [Volume fraction] 41.2 % Normal 34.0-46.0 [facility] ([place] Comment on above: Performed By: #### C BC, ADIFF, ANEU, LIP, CMP, GFR, PBNP, TROPHS #### [place] [address] Hgb 13.4 G/dL Normal 12.0-16.0 [facility] ([place] Comment on above: Performed By: #### C BC, ADIFF, ANEU, LIP, CMP, GFR, PBNP, TROPHS #### [place] [phone] MCH (RBC) [Entitic mass] 29.9 pg Normal 27.0-33.0 [facility] ([place] Comment on above: Performed By: #### C BC, ADIFF, ANEU, LIP, CMP, GFR, PBNP, TROPHS #### [address] [address] MCHC 32.4 G/dL Normal 32.0-36.0 [facility] ([place] Comment on above: Performed By: #### C BC, ADIFF, ANEU, LIP, CMP, GFR, PBNP, TROPHS #### [address] [address] MCV (RBC) [Entitic vol] 92.4 fL Normal 80.0-99.0 [facility] ([place] Comment on above: Performed By: #### C BC, ADIFF, ANEU, LIP, CMP, GFR, PBNP, TROPHS #### [address] [address] Platelet 148 10 3/mcL Low 150-450 [facility] ([place] Comment on above: Performed By: #### C BC, ADIFF, ANEU, LIP, CMP, GFR, PBNP, TROPHS #### [address] [address] Platelet mean volume (Bld) [Entitic vol] 10.7 fL High 6.6-10.5 [facility] ([place] Comment on above: Performed By: #### C BC, ADIFF, ANEU, LIP, CMP, GFR, PBNP, TROPHS #### [address] [address] RBC 4.46 10 6/mcL Normal 4.10-5.30 [facility] ([place] Comment on above: Performed By: #### C BC, ADIFF, ANEU, LIP, CMP, GFR, PBNP, TROPHS #### [address] [address] WBC 4.50 10 3/mcL Normal 4.50-10.80 [facility] ([place] Comment on above: Performed By: #### C BC, ADIFF, ANEU, LIP, CMP, GFR, PBNP, TROPHS #### [place] [address] [place], [place] [address] LABORATORYOrdered By: Candie Interiano on 08-12-2021 Glucose [Mass/Vol] 174 mg/dL Invalid Interpretation Code 70 - 110 mg/dL [facility] LABORATORYOrdered By: Daniel Quiroga on 08-12-2021 Adenovirus DNA SHAI+non-probe Ql (Nph) Not Detected *NA* (08/12/21 2:29 PM) Invalid Interpretation Code Not Detected AH Auto Viro/Sero SS ADMITTED TO INTENSIVE CARE UNIT FOR CONDITION OF INTEREST:FIND:PT:^DOUG NT:ORD: No (08/12/21 2:29 PM) Invalid Interpretation Code AH Auto Viro/Sero SS B. pertussis toxin promoter region SHAI+non-probe Ql (Nph) Not Detected *NA* (08/12/21 2:29 PM) Invalid Interpretation Code Not Detected AH Auto Viro/Sero SS Bordetella Parapertussis Not Detected *NA* (08/12/21 2:29 PM) Invalid Interpretation Code Not Detected AH Auto Viro/Sero SS C. pneumoniae DNA SHAI+non-probe Ql (Nph) Not Detected *NA* (08/12/21 2:29 PM) Invalid Interpretation Code Not Detected AH Auto Viro/Sero SS EMPLOYED IN A HEALTHCARE SETTING:FIND:PT:^GELY T:ORD: No (08/12/21 2:29 PM) Invalid Interpretation Code AH Auto Viro/Sero SS FIRST TEST FOR CONDITION OF INTEREST:FIND:PT:^DOUG NT:ORD: No (08/12/21 2:29 PM) Invalid Interpretation Code AH Auto Viro/Sero SS FLUAV RNA SHAI+non-probe Ql (Nph) Not Detected *NA* (08/12/21 2:29 PM) Invalid Interpretation Code Not Detected AH Auto Viro/Sero SS FLUBV RNA SHAI+non-probe Ql (Nph) Not Detected *NA* (08/12/21 2:29 PM) Invalid Interpretation Code Not Detected AH Auto Viro/Sero SS HAS SYMPTOMS RELATED TO CONDITION OF INTEREST:FIND:PT:^DOUG NT:ORD: No (08/12/21 2:29 PM) Invalid Interpretation Code Auto Viro/Sero SS hMPV RNA SHAI+non-probe Ql (Nph) Not Detected *NA* (08/12/21 2:29 PM) Invalid Interpretation Code Not Detected Auto Viro/Sero SS Illness or injury onset date and time [id number] Invalid Interpretation Code Auto Viro/Sero SS M. pneumoniae DNA SHAI+non-probe Ql (Nph) Not Detected *NA* (08/12/21 2:29 PM) Invalid Interpretation Code Not Detected Auto Viro/Sero SS Parainfluenza virus 1 RNA SHAI+non-probe Ql (Nph) Not Detected *NA* (08/12/21 2:29 PM) Invalid Interpretation Code Not Detected Auto Viro/Sero SS Parainfluenza virus 2 RNA SHAI+non-probe Ql (Nph) Not Detected *NA* (08/12/21 2:29 PM) Invalid Interpretation Code Not Detected Auto Viro/Sero SS Parainfluenza virus 3 RNA SHAI+non-probe Ql (Nph) Not Detected *NA* (08/12/21 2:29 PM) Invalid Interpretation Code Not Detected Auto Viro/Sero SS Parainfluenza virus 4 RNA SHAI+non-probe Ql (Nph) Not Detected *NA* (08/12/21 2:29 PM) Invalid Interpretation Code Not Detected Auto Viro/Sero SS Patient was hospitalized because of this condition Yes (08/12/21 2:29 PM) Invalid Interpretation Code Auto Viro/Sero SS status Not (08/12/21 2:29 PM) Invalid Interpretation Code Auto Viro/Sero SS RESIDES IN A CONGREGATE CARE SETTING:FIND:PT:^PATIEN T:ORD: No (08/12/21 2:29 PM) Invalid Interpretation Code Auto Viro/Sero SS Rhinovirus+Enterovirus RNA SHAI+non-probe Ql (Nph) Not Detected *NA* (08/12/21 2:29 PM) Invalid Interpretation Code Not Detected Auto Viro/Sero SS RSV RNA SHAI+non-probe Ql (Nph) Not Detected *NA* (08/12/21 2:29 PM) Invalid Interpretation Code Not Detected Auto Viro/Sero SS SARS-CoV-2 (COVID-19) RNA SHAI+probe Ql (Unsp spec) Detected 1 *ABN* (08/12/21 2:29 PM) Invalid Interpretation Code Not Detected AH Auto Viro/Sero SS Comment on above: Result Comment: This organism causes a reportable disease. Infection Control has been notified. Results have been reported to the [place] [facility]. LABORATORYOrdered By: Gely Ramirez on 08-12-2021 Blood Glucose Testing Reason Routine (08/12/21 11:20 AM) [facility] LABORATORYOrdered By: SYSTEM SYSTEM on 08-12-2021 Anisocytosis Ql (Bld) Slight *NA* (08/12/21 10:25 AM) Invalid Interpretation Code AH Remisol SS Basophils (Bld) [#/Vol] 0.04 103/mcL Invalid Interpretation Code 0.00 - 0.27 10^3/mcL AH Remisol SS Basophils/100 WBC (Bld) 1.0 % Invalid Interpretation Code 0.0 - 2.5 % Remisol SS Cells Counted Total (Unsp spec) [#] 100 Invalid Interpretation Code Remisol SS Dacrocytes LM Ql (Bld) Rare *NA* (08/12/21 10:25 AM) Invalid Interpretation Code AH Remisol SS Eosinophils (Bld) [#/Vol] 0.00 103/mcL Invalid Interpretation Code 0.00 - 0.65 10^3/mcL AH Remisol SS Eosinophils/100 WBC (Bld) 0.0 % Invalid Interpretation Code 0.0 - 6.0 % AH Remisol SS Erythrocyte distribution width (RBC) [Ratio] 16.9 % Invalid Interpretation Code 11.5 - 15.5 % AH Remisol SS Hematocrit (Bld) [Volume fraction] 41.2 % Invalid Interpretation Code 34.0 - 46.0 % AH Remisol SS Hemoglobin (Bld) [Mass/Vol] 13.4 G/dL Invalid Interpretation Code 12.0 - 16.0 G/dL AH Remisol SS Lymphocytes (Bld) [#/Vol] 0.49 103/mcL Invalid Interpretation Code 0.90 - 4.32 10^3/mcL AH Remisol SS Lymphocytes/100 WBC (Bld) 11.0 % Invalid Interpretation Code 20.0 - 40.0 % AH Remisol SS MCH (RBC) [Entitic mass] 29.9 pg Invalid Interpretation Code 27.0 - 33.0 pg AH Remisol SS MCHC (RBC) [Mass/Vol] 32.4 G/dL Invalid Interpretation Code 32.0 - 36.0 G/dL AH Remisol SS MCV (RBC) [Entitic vol] 92.4 fL Invalid Interpretation Code 80.0 - 99.0 fL AH Remisol SS Monocytes (Bld) [#/Vol] 0.18 103/mcL Invalid Interpretation Code 0.09 - 1.40 10^3/mcL AH Remisol SS Monocytes/100 WBC (Bld) 4.0 % Invalid Interpretation Code 2.0 - 13.0 % AH Remisol SS Neutrophils (Bld) [#/Vol] 3.78 103/mcL Invalid Interpretation Code 2.25 - 8.10 10^3/mcL AH Remisol SS Neutrophils/100 WBC (Bld) 84.0 % Invalid Interpretation Code 50.0 - 75.0 % AH Remisol SS Platelet mean volume (Bld) [Entitic vol] 10.7 fL Invalid Interpretation Code 6.6 - 10.5 fL AH Remisol SS Platelets (Bld) [#/Vol] 148 103/mcL Invalid Interpretation Code 150 - 450 10^3/mcL AH Remisol SS Platelets LM Ql (Bld) Normal *NA* (08/12/21 10:25 AM) Invalid Interpretation Code AH Remisol SS RBC (Bld) [#/Vol] 4.46 106/mcL Invalid Interpretation Code 4.10 - 5.30 10^6/mcL AH Remisol SS WBC (Bld) [#/Vol] 4.50 103/mcL Invalid Interpretation Code 4.50 - 10.80 10^3/mcL AH Remisol SS Base excess Calc (BldMV) [Moles/Vol] 8.0 mEq/L Invalid Interpretation Code 4.0 - 15.0 mEq/L AH ADM SS Calcium [Mass/Vol] 9.3 mg/dL Invalid Interpretation Code 8.4 - 10.1 mg/dL AH ADM SS Chloride [Moles/Vol] 101 mmol/L Invalid Interpretation Code 98 - 110 mEq/L AH ADM SS CO2 [Moles/Vol] 32 mmol/L Invalid Interpretation Code 22 - 32 mEq/L AH ADM SS Creatinine [Mass/Vol] 1.03 mg/dL Invalid Interpretation Code 0.50 - 1.20 mg/dL ADM SS GFR/1.73 sq M.predicted among blacks MDRD (S/P/Bld) [Vol rate/Area] ml/min/1.73sqm Invalid Interpretation Code ADM SS GFR/1.73 sq M.predicted among non-blacks MDRD (S/P/Bld) [Vol rate/Area] 57 ml/min/1.73sqm Invalid Interpretation Code ADM SS Glucose [Mass/Vol] 139 mg/dL Invalid Interpretation Code 70 - 110 mg/dL ADM SS Magnesium [Mass/Vol] 2.1 mg/dL Invalid Interpretation Code 1.6 - 2.4 mg/dL ADM SS Potassium [Moles/Vol] 3.6 mmol/L Invalid Interpretation Code 3.5 - 5.0 mEq/L ADM SS Sodium [Moles/Vol] 141 mmol/L Invalid Interpretation Code 136 - 145 mEq/L ADM SS Urea nitrogen [Mass/Vol] 14.0 mg/dL Invalid Interpretation Code 8.0 - 22.0 mg/dL ADM SS Urea nitrogen/Creatinine [Mass ratio] 13.6 ratio Invalid Interpretation Code 10.0 - 22.0 ratio ADM SS MGon 08-12-2021 Magnesium [Mass/Vol] 2.1 mg/dL Normal 1.6-2.4 [facility] ([place]) Comment on above: Performed By: #### C BC, ADIFF, ANEU, LIP, CMP, GFR, PBNP, TROPHS #### [address] [address] PREGUon 08-12-2021 HCG ( test) Ql (U) Negative Normal [facility] ([place]) Comment on above: Performed By: #### C BC, ADIFF, ANEU, LIP, CMP, GFR, PBNP, TROPHS #### [address] [address] test (u) int Not detected Invalid Interpretation Code [facility] ([place]) Comment on above: Performed By: #### C BC, ADIFF, ANEU, LIP, CMP, GFR, PBNP, TROPHS #### [address] [address] Nevaeh 08-12-2021 Adenovirus Not detected Normal Not Detected [facility] ([place]) Comment on above: Performed By: #### C BC, ADIFF, ANEU, LIP, CMP, GFR, PBNP, TROPHS #### [address] [address] Bordetella Parapertussis Not detected Normal Not Detected [facility] ([place]) Comment on above: Performed By: #### C BC, ADIFF, ANEU, LIP, CMP, GFR, PBNP, TROPHS #### [place] [address] Bordetella Pertussis Not detected Normal Not Detected [facility] ([place]) Comment on above: Performed By: #### C BC, ADIFF, ANEU, LIP, CMP, GFR, PBNP, TROPHS #### [place] [address] Chlamydophila pneumoniae Not detected Normal Not Detected [facility] ([place]) Comment on above: Performed By: #### C BC, ADIFF, ANEU, LIP, CMP, GFR, PBNP, TROPHS #### [place] [address] Coronavirus 229E (Not COVID-19) Not detected Normal Not Detected [facility] ([place]) Comment on above: Performed By: #### C BC, ADIFF, ANEU, LIP, CMP, GFR, PBNP, TROPHS #### [place] [address] Coronavirus HKU1 (Not COVID-19) Not detected Normal Not Detected [facility] ([place]) Comment on above: Performed By: #### C BC, ADIFF, ANEU, LIP, CMP, GFR, PBNP, TROPHS #### [place] [address] Coronavirus NL63 (Not COVID-19) Not detected Normal Not Detected [facility] ([place]) Comment on above: Performed By: #### C BC, ADIFF, ANEU, LIP, CMP, GFR, PBNP, TROPHS #### [address] [address] Coronavirus OC43 (Not COVID-19) Not detected Normal Not Detected [facility] ([place] Comment on above: Performed By: #### C BC, ADIFF, ANEU, LIP, CMP, GFR, PBNP, TROPHS #### [place] [address] Date of Onset [id number] Invalid Interpretation Code [facility] ([place] Comment on above: Performed By: #### C BC, ADIFF, ANEU, LIP, CMP, GFR, PBNP, TROPHS #### [address] [address] Employed in Healthcare No Normal [facility] ([place]) Comment on above: Performed By: #### C BC, ADIFF, ANEU, LIP, CMP, GFR, PBNP, TROPHS #### [place] [address] First Test No Normal [facility] ([place] Comment on above: Performed By: #### C BC, ADIFF, ANEU, LIP, CMP, GFR, PBNP, TROPHS #### [address] [address] Hospitalized Yes Normal [facility] ([place] Comment on above: Performed By: #### C BC, ADIFF, ANEU, LIP, CMP, GFR, PBNP, TROPHS #### [address] [address] Human Metapneumovirus Not detected Normal Not Detected [facility] ([place] Comment on above: Performed By: #### C BC, ADIFF, ANEU, LIP, CMP, GFR, PBNP, TROPHS #### [address] [address] ICU No Normal [facility] ([place] Comment on above: Performed By: #### C BC, ADIFF, ANEU, LIP, CMP, GFR, PBNP, TROPHS #### [address] [address] Influenza A Not detected Normal Not Detected [facility] ([place] Comment on above: Performed By: #### C BC, ADIFF, ANEU, LIP, CMP, GFR, PBNP, TROPHS #### [place] [address] Influenza B Not detected Normal Not Detected [facility] ([place] Comment on above: Performed By: #### C BC, ADIFF, ANEU, LIP, CMP, GFR, PBNP, TROPHS #### [place] [address] Mycoplasma pneumoniae Not detected Normal Not Detected [facility] ([place] Comment on above: Performed By: #### C BC, ADIFF, ANEU, LIP, CMP, GFR, PBNP, TROPHS #### [place] [address] Parainfluenza 1 Not detected Normal Not Detected [facility] ([place] Comment on above: Performed By: #### C BC, ADIFF, ANEU, LIP, CMP, GFR, PBNP, TROPHS #### [place] [address] Parainfluenza 2 Not detected Normal Not Detected [facility] ([place] Comment on above: Performed By: #### C BC, ADIFF, ANEU, LIP, CMP, GFR, PBNP, TROPHS #### [place] [address] Parainfluenza 3 Not detected Normal Not Detected [facility] ([place] Comment on above: Performed By: #### C BC, ADIFF, ANEU, LIP, CMP, GFR, PBNP, TROPHS #### [place] [address] Parainfluenza 4 Not detected Normal Not Detected [facility] ([place] Comment on above: Performed By: #### C BC, ADIFF, ANEU, LIP, CMP, GFR, PBNP, TROPHS #### [place] [address] Not Normal [facility] ([place]) Comment on above: Performed By: #### C BC, ADIFF, ANEU, LIP, CMP, GFR, PBNP, TROPHS #### [place] [id number] [place], [place] [address] Resides in Congregate Care Setting No Normal [facility] ([place]) Comment on above: Performed By: #### C BC, ADIFF, ANEU, LIP, CMP, GFR, PBNP, TROPHS #### [place] [address] [place], [place] [address] Respiratory Syncytial Virus Not detected Normal Not Detected [facility] ([place]) Comment on above: Performed By: #### C BC, ADIFF, ANEU, LIP, CMP, GFR, PBNP, TROPHS #### [place] [address] [place], [place] [address] Rhinovirus/Enterovirus Not detected Normal Not Detecte d [facility] ([place]) Comment on above: Performed By: #### C BC, ADIFF, ANEU, LIP, CMP, GFR, PBNP, TROPHS #### [place] [address] [place] [address] SARS-CoV-2 (COVID-19) RNA SHAI+probe Ql (Unsp spec) Detected Abnormal Not Detected [facility] ([place]) Comment on above: Result Comment: This organism causes a reportable disease. Infection Control has been notified. Results have been reported to the [place] Department of Health. This test is being used under the FDA EUA procedure. This assay has been validated in the [facility] for use with nasopharyngeal specimens in [facility]. If a non-validated specimen or test collection method was used, please interpret the results with caution, especially if the test result is negative. A positive test result for COVID-19 indicates that RNA from SARS-CoV-2 was detected, and the patient is infected with the virus and presumed to be contagious. Laboratory test results should always be considered in the context of clinical observations and epidemiological data in making a final diagnosis and patient management decisions. Patient management should follow current CDC guidelines. A negative test result for this test means that SARS-CoV-2 RNA was not present in the specimen above the limit of detection. However, a negative result does not rule out COVID-19 and should not be used as the sole basis for treatment or patient management decisions. A negative result does not exclude the possibility of COVID-19. When diagnostic testing is negative, the possibility of a false negative result should be considered in the context of a patient's recent exposures and the presence of clinical signs and symptoms consistent with COVID-19. The possibility of a false negative result should especially be considered if the patient?s recent exposures or clinical presentation indicate that COVID-19 is likely, and diagnostic tests for other causes of illness (e.g., other respiratory illness) are negative. If COVID-19 is still suspected based on exposure history together with other clinical findings, re-testing should be considered by healthcare providers in consultation with public health authorities. Performed By: #### C BC, ADIFF, ANEU, LIP, CMP, GFR, PBNP, TROPHS #### [place] [address] Symptomatic as Defined by [facility] No Normal [facility] ([place]) Comment on above: Performed By: #### C BC, ADIFF, ANEU, LIP, CMP, GFR, PBNP, TROPHS #### [place] [address] UAon 08-12-2021 Color (U) Yellow Normal [facility] ([place]) Comment on above: Performed By: #### C BC, ADIFF, ANEU, LIP, CMP, GFR, PBNP, TROPHS #### [place] [phone] Glucose (U) [Mass/Vol] mg/dL Abnormal Negative [facility] ([place]) Comment on above: Performed By: #### C BC, ADIFF, ANEU, LIP, CMP, GFR, PBNP, TROPHS #### [place] [phone] Ketones Ql (U) Negative Normal Neg-Trace [facility] ([place]) Comment on above: Performed By: #### C BC, ADIFF, ANEU, LIP, CMP, GFR, PBNP, TROPHS #### [place] [phone] UA Appear Clear Normal Clear [facility] ([place] Comment on above: Performed By: #### C BC, ADIFF, ANEU, LIP, CMP, GFR, PBNP, TROPHS #### [address] [address] UA Blood Moderate Abnormal Neg-Trace [facility] ([place]) Comment on above: Performed By: #### C BC, ADIFF, ANEU, LIP, CMP, GFR, PBNP, TROPHS #### [address] [address] UA Leuk Est Trace Normal Negative [facility] ([place]) Comment on above: Performed By: #### C BC, ADIFF, ANEU, LIP, CMP, GFR, PBNP, TROPHS #### [address] [address] UA Nitrite Negative Normal Negative [facility] ([place]) Comment on above: Performed By: #### C BC, ADIFF, ANEU, LIP, CMP, GFR, PBNP, TROPHS #### [address] [address] UA pH 8.0 Normal 5.0 - 8.0 [facility] ([place]) Comment on above: Performed By: #### C BC, ADIFF, ANEU, LIP, CMP, GFR, PBNP, TROPHS #### [address] [address] UA Protein Negative Normal Negative [facility] ([place]) Comment on above: Performed By: #### C BC, ADIFF, ANEU, LIP, CMP, GFR, PBNP, TROPHS #### [address] [address] UA Spec Grav 1.010 Normal 1.006-1.029 [facility] ([place]) Comment on above: Performed By: #### C BC, ADIFF, ANEU, LIP, CMP, GFR, PBNP, TROPHS #### [address] [address] UA Specimen Type Void Normal [facility] ([place]) Comment on above: Performed By: #### C BC, ADIFF, ANEU, LIP, CMP, GFR, PBNP, TROPHS #### [address] [address] UA Urobilinogen 1.0 E.U./dL Normal 0.2-1.0 [facility] ([place]) Comment on above: Performed By: #### C BC, ADIFF, ANEU, LIP, CMP, GFR, PBNP, TROPHS #### [address] [address] Urobilinogen (U) [Mass/Vol] Negative Normal Neg-Trace [facility] ([place]) Comment on above: Performed By: #### C BC, ADIFF, ANEU, LIP, CMP, GFR, PBNP, TROPHS #### [address] [address] UAMICon 08-12-2021 UA Bacteria Trace Abnormal Negative [facility] ([place] Comment on above: Performed By: #### C BC, ADIFF, ANEU, LIP, CMP, GFR, PBNP, TROPHS #### [address] [address] UA Glitter cells Rare Abnormal [facility] ([place] Comment on above: Performed By: #### C BC, ADIFF, ANEU, LIP, CMP, GFR, PBNP, TROPHS #### [address] [address] UA RBC 0-2 Normal 0-2 [facility] ([place] Comment on above: Performed By: #### C BC, ADIFF, ANEU, LIP, CMP, GFR, PBNP, TROPHS #### [address] [address] UA Squam Epithelial Rare Normal 0-20 [facility] ([place]) Comment on above: Performed By: #### C BC, ADIFF, ANEU, LIP, CMP, GFR, PBNP, TROPHS #### [address] [address] UA WBC 0-2 Normal 0-5 [facility] ([place]) Comment on above: Performed By: #### C BC, ADIFF, ANEU, LIP, CMP, GFR, PBNP, TROPHS #### [place] [address] XR CHEST 1 VIEWon 08-12-2021 XR CHEST 1 VIEW ORIGINAL HISTORY: Short of breath COMPARISON: 3 days previously FINDINGS: The lungs are clear. The pulmonary vasculature is unremarkable in appearance. IMPRESSION: Clear lungs. Interpreted by: Jerardo Olivera MD Preliminary Report By: Jerardo Olivera MD Electronically signed By Jerardo Olivera MD Dictated Date: 08/12/2021 12:28:18 PM Prelim Date: 08/12/2021 12:28:43 PM Sign Date: 08/12/2021 12:28:43 PM Ordering Provider: MAXIMO Casas [facility] ([place]) .Auto Diffon 08-11-2021 Basophil, Absolute 0.00 10 3/mcL Normal 0.00-0.27 Counts include 234 beds at the [facility] ([place]) Comment on above: Performed By: #### C BC, ADIFF, ANEU, LIP, CMP, GFR, PBNP, TROPHS #### [address] [address] Basophils/100 WBC (Bld) 0.7 % Normal 0.0-2.5 [facility] ([place]) Comment on above: Performed By: #### C BC, ADIFF, ANEU, LIP, CMP, GFR, PBNP, TROPHS #### [address] [address] Eosinophil, Absolute 0.10 10 3/mcL Normal 0.00-0.65 [facility] ([place]) Comment on above: Performed By: #### C BC, ADIFF, ANEU, LIP, CMP, GFR, PBNP, TROPHS #### [address] [address] Eosinophils/100 WBC (Bld) 1.1 % Normal 0.0-6.0 [facility] ([place]) Comment on above: Performed By: #### C BC, ADIFF, ANEU, LIP, CMP, GFR, PBNP, TROPHS #### [address] [address] Lymphocyte, Absolute 1.10 10 3/mcL Normal 0.90-4.32 [facility] ([place]) Comment on above: Performed By: #### C BC, ADIFF, ANEU, LIP, CMP, GFR, PBNP, TROPHS #### [address] [address] Lymphocytes/100 WBC (Bld) 15.2 % Low 20.0-40.0 [facility] ([place] Comment on above: Performed By: #### C BC, ADIFF, ANEU, LIP, CMP, GFR, PBNP, TROPHS #### [address] [address] Monocyte, Absolute 0.60 10 3/mcL Normal 0.09-1.40 Counts include 234 beds at the [facility] ([place]) Comment on above: Performed By: #### C BC, ADIFF, ANEU, LIP, CMP, GFR, PBNP, TROPHS #### [address] [address] Monocytes/100 WBC (Bld) 8.0 % Normal 2.0-13.0 [facility] ([place]) Comment on above: Performed By: #### C BC, ADIFF, ANEU, LIP, CMP, GFR, PBNP, TROPHS #### [address] [address] Neutrophils/100 WBC (Bld) 75.0 % Normal 50.0-75.0 [facility] ([place]) Comment on above: Performed By: #### C BC, ADIFF, ANEU, LIP, CMP, GFR, PBNP, TROPHS #### [address] [address] .GFRon 08-11-2021 GFR >60 Normal [facility] ([place]) Comment on above: Result Comment: GFR Population mean for , Non- Americans Ages 20-29 = 116 mL/min/1.73 sq.m. Ages 30-39 = 107 mL/min/1.73 sq.m. Ages 40-49 = 99 mL/min/1.73 sq.m. Ages 50-59 = 93 mL/min/1.73 sq.m. Ages 60-69 = 85 mL/min/1.73 sq.m. Ages 70+ = 75 mL/min/1.73 sq.m. Chronic Kidney Disease: Less than 60 mL/min/1.73 square meters End Stage Renal Disease: Less than 15 mL/min/1.73 square meters Performed By: #### C BC, ADIFF, ANEU, LIP, CMP, GFR, PBNP, TROPHS #### [address] [address] GFR Non- >60 Normal [facility] ([place]) Comment on above: Result Comment: GFR Population mean for , Non- Americans Ages 20-29 = 116 mL/min/1.73 sq.m. Ages 30-39 = 107 mL/min/1.73 sq.m. Ages 40-49 = 99 mL/min/1.73 sq.m. Ages 50-59 = 93 mL/min/1.73 sq.m. Ages 60-69 = 85 mL/min/1.73 sq.m. Ages 70+ = 75 mL/min/1.73 sq.m. Chronic Kidney Disease: Less than 60 mL/min/1.73 square meters End Stage Renal Disease: Less than 15 mL/min/1.73 square meters Performed By: #### C BC, ADIFF, ANEU, LIP, CMP, GFR, PBNP, TROPHS #### [place] [id number] .Morphon 08-11-2021 Platelet Estimate Normal Normal [facility] ([place]) Comment on above: Result Comment: Few platelet clumps seen. Performed By: #### C BC, ADIFF, ANEU, LIP, CMP, GFR, PBNP, TROPHS #### [place] [id number] RBC morphology finding Nom (Bld) Normal Normal [facility] ([place]) Comment on above: Performed By: #### C BC, ADIFF, ANEU, LIP, CMP, GFR, PBNP, TROPHS #### [place] [id number] .NEUABSon 08-11-2021 Neutrophil, Absolute 5.30 10 3/mcL Normal 2.25-8.10 [facility] ([place]) Comment on above: Performed By: #### C BC, ADIFF, ANEU, LIP, CMP, GFR, PBNP, TROPHS #### [address] [address] on 08-11-2021 Barometric Pressure 712 mmHg Normal [facility] ([place]) Comment on above: Performed By: #### C BC, ADIFF, ANEU, LIP, CMP, GFR, PBNP, TROPHS #### [address] [address] Base excess Calc (Bld) [Moles/Vol] 7.1 mmol/L Normal [facility] ([place]) Comment on above: Performed By: #### C BC, ADIFF, ANEU, LIP, CMP, GFR, PBNP, TROPHS #### [address] [address] CO2 [Moles/Vol] 32.6 mmol/L High 22.0-30.0 [facility] ([place]) Comment on above: Performed By: #### C BC, ADIFF, ANEU, LIP, CMP, GFR, PBNP, TROPHS #### [address] [address] HCO3 (Bld) [Moles/Vol] 31.3 mmol/L High 21.0-29.0 [facility] ([place]) Comment on above: Performed By: #### C BC, ADIFF, ANEU, LIP, CMP, GFR, PBNP, TROPHS #### [address] [address] Oxygen (Bld) [Partial pressure] 54.6 mm[Hg] Low 74.0-108.0 [facility] ([place]) Comment on above: Performed By: #### C BC, ADIFF, ANEU, LIP, CMP, GFR, PBNP, TROPHS #### [address] [address] Oxygen saturation in Blood 89.2 % Low 92.0-96.0 [facility] ([place]) Comment on above: Performed By: #### C BC, ADIFF, ANEU, LIP, CMP, GFR, PBNP, TROPHS #### [address] [address] pCO2 42.4 mmHg Normal 32.0-46.0 [facility] ([place]) Comment on above: Performed By: #### C BC, ADIFF, ANEU, LIP, CMP, GFR, PBNP, TROPHS #### [address] [address] pH (Bld) 7.486 [pH] High 7.380-7.460 [facility] ([place]) Comment on above: Performed By: #### C BC, ADIFF, ANEU, LIP, CMP, GFR, PBNP, TROPHS #### [address] [address] BMPon 08-11-2021 BUN/Creatinine Ratio 16.5 ratio Normal 10.0-22.0 [facility] ([place]) Comment on above: Order Comment: hemol yzed...notified Leighann 08/11/2021 06:11:06 EST Performed By: #### C BC, ADIFF, ANEU, LIP, CMP, GFR, PBNP, TROPHS #### [address] [address] Calcium [Mass/Vol] 9.3 mg/dL Normal 8.4-10.1 [facility] ([place]) Comment on above: Order Comment: hemol yzed...notified Leighann 08/11/2021 06:11:06 EST Result Comment: No te - New Reference Range in effect 20 Performed By: #### C BC, ADIFF, ANEU, LIP, CMP, GFR, PBNP, TROPHS #### [address] [address] Chloride [Moles/Vol] 104 mmol/L Normal 98-110 [facility] ([place]) Comment on above: Order Comment: hemol yzed...notified Leighann 08/11/2021 06:11:06 EST Performed By: #### C BC, ADIFF, ANEU, LIP, CMP, GFR, PBNP, TROPHS #### [address] [address] CO2 [Moles/Vol] 29 mmol/L Normal 22-32 [facility] ([place]) Comment on above: Order Comment: hemol yzed...notified Leighann 08/11/2021 06:11:06 EST Performed By: #### C BC, ADIFF, ANEU, LIP, CMP, GFR, PBNP, TROPHS #### [place] [address] [address] Creatinine [Mass/Vol] 0.91 mg/dL Normal 0.50-1.20 Counts include 234 beds at the [facility] ([place]) Comment on above: Order Comment: hemol yzed...notified Leighann 08/11/2021 06:11:06 EST Performed By: #### C BC, ADIFF, ANEU, LIP, CMP, GFR, PBNP, TROPHS #### [address] [address] Electrolyte Balance 9.0 mEq/L Normal 4.0-15.0 [facility] ([place]) Comment on above: Order Comment: hemol yzed...notified [facility] 08/11/2021 06:11:06 EST Performed By: #### C BC, ADIFF, ANEU, LIP, CMP, GFR, PBNP, TROPHS #### [address] [address] Glucose [Mass/Vol] 158 mg/dL High 70-110 [facility] ([place]) Comment on above: Order Comment: hemol yzed...notified Leighann 08/11/2021 06:11:06 EST Performed By: #### C BC, ADIFF, ANEU, LIP, CMP, GFR, PBNP, TROPHS #### [place] [address] [address] Potassium [Moles/Vol] 3.4 mmol/L Low 3.5-5.0 Counts include 234 beds at the [facility] ([place]) Comment on above: Order Comment: hemol yzed...notified Leighann 08/11/2021 06:11:06 EST Performed By: #### C BC, ADIFF, ANEU, LIP, CMP, GFR, PBNP, TROPHS #### [address] [address] Sodium [Moles/Vol] 142 mmol/L Normal 136-145 [facility] ([place]) Comment on above: Order Comment: hemol yzed...notified Leighann 08/11/2021 06:11:06 EST Performed By: #### C BC, ADIFF, ANEU, LIP, CMP, GFR, PBNP, TROPHS #### [address] [address] Urea nitrogen [Mass/Vol] 15.0 mg/dL Normal 8.0-22.0 [facility] ([place]) Comment on above: Order Comment: hemol yzed...notified Leighann 08/11/2021 06:11:06 EST Performed By: #### C BC, ADIFF, ANEU, LIP, CMP, GFR, PBNP, TROPHS #### [address] [address] CBCon 08-11-2021 Platelet 186 10 3/mcL Normal 150-450 [facility] ([place]) Comment on above: Performed By: #### C BC, ADIFF, ANEU, LIP, CMP, GFR, PBNP, TROPHS #### [address] [address] Platelet mean volume (Bld) [Entitic vol] 11.4 fL High 6.6-10.5 [facility] ([place]) Comment on above: Performed By: #### C BC, ADIFF, ANEU, LIP, CMP, GFR, PBNP, TROPHS #### [address] [address] Erythrocyte distribution width (RBC) [Ratio] 16.5 % High 11.5-15.5 [facility] ([place]) Comment on above: Performed By: #### C BC, ADIFF, ANEU, LIP, CMP, GFR, PBNP, TROPHS #### [address] [address] Hematocrit (Bld) [Volume fraction] 40.5 % Normal 34.0-46.0 [facility] ([place]) Comment on above: Performed By: #### C BC, ADIFF, ANEU, LIP, CMP, GFR, PBNP, TROPHS #### [address] [address] Hgb 13.2 G/dL Normal 12.0-16.0 [facility] ([place]) Comment on above: Performed By: #### C BC, ADIFF, ANEU, LIP, CMP, GFR, PBNP, TROPHS #### [address] [address] MCH (RBC) [Entitic mass] 30.1 pg Normal 27.0-33.0 [facility] ([place]) Comment on above: Performed By: #### C BC, ADIFF, ANEU, LIP, CMP, GFR, PBNP, TROPHS #### [place] [address] MCHC 32.7 G/dL Normal 32.0-36.0 [facility] ([place]) Comment on above: Performed By: #### C BC, ADIFF, ANEU, LIP, CMP, GFR, PBNP, TROPHS #### [place] [address] MCV (RBC) [Entitic vol] 92.0 fL Normal 80.0-99.0 [facility] ([place]) Comment on above: Performed By: #### C BC, ADIFF, ANEU, LIP, CMP, GFR, PBNP, TROPHS #### [place] [address] RBC 4.40 10 6/mcL Normal 4.10-5.30 [facility] ([place]) Comment on above: Performed By: #### C BC, ADIFF, ANEU, LIP, CMP, GFR, PBNP, TROPHS #### [place] [address] WBC 7.00 10 3/mcL Normal 4.50-10.80 [facility] ([place]) Comment on above: Performed By: #### C BC, ADIFF, ANEU, LIP, CMP, GFR, PBNP, TROPHS #### [place] [address] DRUGUon 08-11-2021 Drug Screen Urine Negative Normal [facility] ([place]) Comment on above: Performed By: #### C BC, ADIFF, ANEU, LIP, CMP, GFR, PBNP, TROPHS #### [address] [address] Drug Screen Urine Interp Urine shows no evidence of drugs routinely screened. Invalid Interpretation Code [facility] ([place]) Comment on above: Performed By: #### C BC, ADIFF, ANEU, LIP, CMP, GFR, PBNP, TROPHS #### [address] [address] U pH Drug Scrn 8.0 Normal 5.0-8.0 [facility] ([place]) Comment on above: Performed By: #### C BC, ADIFF, ANEU, LIP, CMP, GFR, PBNP, TROPHS #### [address] [address] U Specific [place] Drg Scrn 1.008 Normal 1.005-1.030 [facility] ([place]) Comment on above: Performed By: #### C BC, ADIFF, ANEU, LIP, CMP, GFR, PBNP, TROPHS #### [address] [address] Urine Drugs screened: See Below Normal Counts include 234 beds at the [facility] ([place]) Comment on above: Result Comment: This drug screen is a presumptive screening only. No confirmation will be performed unless requested. Drugs screened include: Threshold Amphetamines/Methamphetamines 1,000 ng/mL Barbiturates 200 ng/mL Benzodiazepine metabolites 200 ng/mL Cannabinoids (THC metabolites) 50 ng/mL Benzoylecognine (Cocaine metab) 300 ng/mL Opiates 300 ng/mL Phencyclidine (PCP) 25 ng/mL Methadone 300 ng/mL Propoxyphene 300 ng/mL Testing has been performed FOR MEDICAL PURPOSES ONLY. Performed By: #### C BC, ADIFF, ANEU, LIP, CMP, GFR, PBNP, TROPHS #### [address] [address] LABORATORYOrdered By: Lizzeth Ferrer on 08-11-2021 Urine Preg POC Confirmation Sent to lab (08/11/21 10:47 PM) [facility] LABORATORYOrdered By: Renu Redding on 08-11-2021 Appearance (U) Clear (08/11/21 10:45 PM) Invalid Interpretation Code Clear AH Auto Urine SS Bacteria LM.HPF (Urine sed) [#/Area] Trace /HPF Invalid Interpretation Code Negative/HPF AH Auto Urine SS Bilirubin Ql (U) Negative (08/11/21 10:45 PM) Invalid Interpretation Code Neg-Trace AH Auto Urine SS Color (U) Yellow (08/11/21 10:45 PM) Invalid Interpretation Code AH Auto Urine SS Glucose Test strip (U) [Mass/Vol] >=1000 mg/dL Invalid Interpretation Code Negativemg/d L AH Auto Urine SS HCG Qn (U) Negative (08/11/21 10:45 PM) Invalid Interpretation Code AH Manual Urine SS Hemoglobin Auto test strip (U) [Mass/Vol] Moderate *ABN* (08/11/21 10:45 PM) Invalid Interpretation Code Neg-Trace AH Auto Urine SS Ketones Ql (U) Negative Invalid Interpretation Code Neg-Tracemg/ dL AH Auto Urine SS test (u) int HCG not detected.Very dilute urine specimens, as indicated by a low specific gravity, may not contain real estate representative levels of hCG.If is still suspected, a first morning urine specimen should be collected 48 hours later and tested. Invalid Interpretation Code AH Manual Urine SS UA Glitter cells Rare /HPF Invalid Interpretation Code AH Auto Urine SS UA Leuk Est Trace *NA* (08/11/21 10:45 PM) Invalid Interpretation Code Negative AH Auto Urine SS UA Nitrite Negative (08/11/21 10:45 PM) Invalid Interpretation Code Negative AH Auto Urine SS UA pH 8.0 (08/11/21 10:45 PM) Invalid Interpretation Code 5.0 - 8.0 AH Auto Urine SS UA Protein Negative Invalid Interpretation Code Negativemg/d L AH Auto Urine SS UA RBC 0-2 /HPF Invalid Interpretation Code 0-2/HPF AH Auto Urine SS UA Spec Grav 1.010 (08/11/21 10:45 PM) Invalid Interpretation Code 1.006-1.029 AH Auto Urine SS UA Specimen Type Void (08/11/21 10:45 PM) Invalid Interpretation Code AH Auto Urine SS UA Squam Epithelial Rare /HPF Invalid Interpretation Code 0-20/HPF AH Auto Urine SS UA Urobilinogen 1.0 E.U./dL Invalid Interpretation Code 0.2-1.0E.U./ dL Auto Urine SS WBC LM.HPF (Urine sed) [#/Area] 0-2 /HPF Invalid Interpretation Code 0-5/HPF Auto Urine SS LABORATORYOrdered By: Chandrika Butler on 08-11-2021 Barometric Pressure 712 mm[Hg] Invalid Interpretation Code Auto Chem SS Base excess Calc (Bld) [Moles/Vol] 7.1 mmol/L Invalid Interpretation Code Auto Chem SS CO2 (Bld) [Partial pressure] 42.4 mm[Hg] Invalid Interpretation Code 32.0 - 46.0 mm Hg Auto Chem SS CO2 [Moles/Vol] 32.6 mmol/L Invalid Interpretation Code 22.0 - 30.0 mmol/L Auto Chem SS HCO3 (Bld) [Moles/Vol] 31.3 mmol/L Invalid Interpretation Code 21.0 - 29.0 mmol/L AH Auto Chem SS Oxygen (Bld) [Partial pressure] 54.6 mm[Hg] Invalid Interpretation Code 74.0 - 108.0 mm Hg AH Auto Chem SS pH (Bld) 7.486 [pH] Invalid Interpretation Code 7.380 - 7.460 Auto Chem SS LABORATORYOrdered By: SYSTEM SYSTEM on 08-11-2021 Base excess Calc (BldMV) [Moles/Vol] 9.0 mEq/L Invalid Interpretation Code 4.0 - 15.0 mEq/L ADM SS Calcium [Mass/Vol] 9.3 mg/dL Invalid Interpretation Code 8.4 - 10.1 mg/dL ADM SS Chloride [Moles/Vol] 104 mmol/L Invalid Interpretation Code 98 - 110 mEq/L ADM SS CO2 [Moles/Vol] 29 mmol/L Invalid Interpretation Code 22 - 32 mEq/L ADM SS Creatinine [Mass/Vol] 0.91 mg/dL Invalid Interpretation Code 0.50 - 1.20 mg/dL ADM SS GFR/1.73 sq M.predicted among blacks MDRD (S/P/Bld) [Vol rate/Area] ml/min/1.73sqm Invalid Interpretation Code ADM SS GFR/1.73 sq M.predicted among non-blacks MDRD (S/P/Bld) [Vol rate/Area] ml/min/1.73sqm Invalid Interpretation Code ADM SS Glucose [Mass/Vol] 158 mg/dL Invalid Interpretation Code 70 - 110 mg/dL AH ADM SS Magnesium [Mass/Vol] 2.1 mg/dL Invalid Interpretation Code 1.6 - 2.4 mg/dL AH ADM SS Potassium [Moles/Vol] 3.4 mmol/L Invalid Interpretation Code 3.5 - 5.0 mEq/L AH ADM SS Sodium [Moles/Vol] 142 mmol/L Invalid Interpretation Code 136 - 145 mEq/L AH ADM SS Urea nitrogen [Mass/Vol] 15.0 mg/dL Invalid Interpretation Code 8.0 - 22.0 mg/dL AH ADM SS Urea nitrogen/Creatinine [Mass ratio] 16.5 ratio Invalid Interpretation Code 10.0 - 22.0 ratio AH ADM SS Basophils (Bld) [#/Vol] 0.00 103/mcL Invalid Interpretation Code 0.00 - 0.27 10^3/mcL AH Remisol SS Basophils/100 WBC (Bld) 0.7 % Invalid Interpretation Code 0.0 - 2.5 % AH Remisol SS Eosinophils (Bld) [#/Vol] 0.10 103/mcL Invalid Interpretation Code 0.00 - 0.65 10^3/mcL AH Remisol SS Eosinophils/100 WBC (Bld) 1.1 % Invalid Interpretation Code 0.0 - 6.0 % AH Remisol SS Erythrocyte distribution width (RBC) [Ratio] 16.5 % Invalid Interpretation Code 11.5 - 15.5 % AH Remisol SS Hematocrit (Bld) [Volume fraction] 40.5 % Invalid Interpretation Code 34.0 - 46.0 % AH Remisol SS Hemoglobin (Bld) [Mass/Vol] 13.2 G/dL Invalid Interpretation Code 12.0 - 16.0 G/dL AH Remisol SS Lymphocytes (Bld) [#/Vol] 1.10 103/mcL Invalid Interpretation Code 0.90 - 4.32 10^3/mcL AH Remisol SS Lymphocytes/100 WBC (Bld) 15.2 % Invalid Interpretation Code 20.0 - 40.0 % AH Remisol SS MCH (RBC) [Entitic mass] 30.1 pg Invalid Interpretation Code 27.0 - 33.0 pg AH Remisol SS MCHC (RBC) [Mass/Vol] 32.7 G/dL Invalid Interpretation Code 32.0 - 36.0 G/dL AH Remisol SS MCV (RBC) [Entitic vol] 92.0 fL Invalid Interpretation Code 80.0 - 99.0 fL AH Remisol SS Monocytes (Bld) [#/Vol] 0.60 103/mcL Invalid Interpretation Code 0.09 - 1.40 10^3/mcL AH Remisol SS Monocytes/100 WBC (Bld) 8.0 % Invalid Interpretation Code 2.0 - 13.0 % AH Remisol SS Neutrophils (Bld) [#/Vol] 5.30 103/mcL Invalid Interpretation Code 2.25 - 8.10 10^3/mcL AH Remisol SS Neutrophils/100 WBC (Bld) 75.0 % Invalid Interpretation Code 50.0 - 75.0 % AH Remisol SS Platelet mean volume (Bld) [Entitic vol] 11.4 fL Invalid Interpretation Code 6.6 - 10.5 fL AH Remisol SS Platelets (Bld) [#/Vol] 186 103/mcL Invalid Interpretation Code 150 - 450 10^3/mcL AH Remisol SS Platelets LM Ql (Bld) Normal 4 *NA* (08/11/21 4:14 AM) Invalid Interpretation Code AH Remisol SS Comment on above: Result Comment: Few platelet clumps seen. RBC (Bld) [#/Vol] 4.40 106/mcL Invalid Interpretation Code 4.10 - 5.30 10^6/mcL AH Remisol SS RBC morphology finding Nom (Bld) Normal *NA* (08/11/21 4:14 AM) Invalid Interpretation Code AH Remisol SS WBC (Bld) [#/Vol] 7.00 103/mcL Invalid Interpretation Code 4.50 - 10.80 10^3/mcL AH Remisol SS MGon 08-11-2021 Magnesium [Mass/Vol] 2.1 mg/dL Normal 1.6-2.4 [facility] ([place]) Comment on above: Order Comment: hemol yzed...notified Leighann 08/11/2021 06:11:52 EST Performed By: #### C BC, ADIFF, ANEU, LIP, CMP, GFR, PBNP, TROPHS #### [place] [phone] No Panel Informationon 08-11 Culture Urine <10,000 cfu/ml. No Significant growth. Sensitivity not indicated. [facility] Microscopic examination of blood, culture Culture has been received in lab and is no growth to date. Routine cultures are held for 5 days. [facility] .Auto Diffon 08-10-2021 Basophil, Absolute 0.10 10 3/mcL Normal 0.00-0.19 Counts include 234 beds at the [facility] ([place]) Comment on above: Performed By: #### C BC, ADIFF, ANEU, LIP, CMP, GFR, PBNP, TROPHS #### [address] [address] Basophils/100 WBC (Bld) 1.5 % Normal 0.0-2.5 [facility] ([place]) Comment on above: Performed By: #### C BC, ADIFF, ANEU, LIP, CMP, GFR, PBNP, TROPHS #### [address] [address] Eosinophil, Absolute 0.10 10 3/mcL Normal 0.00-0.40 [facility] ([place]) Comment on above: Performed By: #### C BC, ADIFF, ANEU, LIP, CMP, GFR, PBNP, TROPHS #### [address] [address] Eosinophils/100 WBC (Bld) 1.6 % Normal 0.0-7.0 [facility] ([place]) Comment on above: Performed By: #### C BC, ADIFF, ANEU, LIP, CMP, GFR, PBNP, TROPHS #### [address] [address] Lymphocyte, Absolute 2.20 10 3/mcL Normal 0.77-3.85 [facility] ([place]) Comment on above: Performed By: #### C BC, ADIFF, ANEU, LIP, CMP, GFR, PBNP, TROPHS #### [address] [address] Lymphocytes/100 WBC (Bld) 28.7 % Normal 10.0-50.0 [facility] ([place]) Comment on above: Performed By: #### C BC, ADIFF, ANEU, LIP, CMP, GFR, PBNP, TROPHS #### [address] [address] Monocyte, Absolute 0.70 10 3/mcL Normal 0.15-1.00 Counts include 234 beds at the [facility] ([place]) Comment on above: Performed By: #### C BC, ADIFF, ANEU, LIP, CMP, GFR, PBNP, TROPHS #### [address] [address] Monocytes/100 WBC (Bld) 9.2 % Normal 1.7-13.0 [facility] ([place]) Comment on above: Performed By: #### C BC, ADIFF, ANEU, LIP, CMP, GFR, PBNP, TROPHS #### [address] [address] Neutrophils/100 WBC (Bld) 59.0 % Normal 37.0-80.0 [facility] ([place]) Comment on above: Performed By: #### C BC, ADIFF, ANEU, LIP, CMP, GFR, PBNP, TROPHS #### [address] [address] .GFRon 08-10-2021 GFR >60 Normal [facility] ([place]) Comment on above: Result Comment: GFR Population mean for , Non- Americans Ages 20-29 = 116 mL/min/1.73 sq.m. Ages 30-39 = 107 mL/min/1.73 sq.m. Ages 40-49 = 99 mL/min/1.73 sq.m. Ages 50-59 = 93 mL/min/1.73 sq.m. Ages 60-69 = 85 mL/min/1.73 sq.m. Ages 70+ = 75 mL/min/1.73 sq.m. Chronic Kidney Disease: Less than 60 mL/min/1.73 square meters End Stage Renal Disease: Less than 15 mL/min/1.73 square meters Performed By: #### C BC, ADIFF, ANEU, LIP, CMP, GFR, PBNP, TROPHS #### [address] [address] GFR Non- >60 Normal [facility] ([place]) Comment on above: Result Comment: GFR Population mean for , Non- Americans Ages 20-29 = 116 mL/min/1.73 sq.m. Ages 30-39 = 107 mL/min/1.73 sq.m. Ages 40-49 = 99 mL/min/1.73 sq.m. Ages 50-59 = 93 mL/min/1.73 sq.m. Ages 60-69 = 85 mL/min/1.73 sq.m. Ages 70+ = 75 mL/min/1.73 sq.m. Chronic Kidney Disease: Less than 60 mL/min/1.73 square meters End Stage Renal Disease: Less than 15 mL/min/1.73 square meters Performed By: #### C BC, ADIFF, ANEU, LIP, CMP, GFR, PBNP, TROPHS #### [address] [address] .NEUABSon 08-10-2021 Neutrophil, Absolute 4.60 10 3/mcL Normal 2.85-6.16 [facility] [place]) Comment on above: Performed By: #### C BC, ADIFF, ANEU, LIP, CMP, GFR, PBNP, TROPHS #### [address] [address] APTTon 08-10-2021 aPTT Coag (Bld) [Time] 28.6 s Normal 24.8-33.3 [facility] ([place]) Comment on above: Result Comment: For Heparin anticoagulation therapy, the recommended therapeutic range is: 53.6-87.4 seconds (1.5 - 2.5 the normal plasma mean). Patients on heparin therapy may have an extreme result. Performed By: #### C BC, ADIFF, ANEU, LIP, CMP, GFR, PBNP, TROPHS #### [address] [address] Heparin dose (APTT) Heparin IV Normal [facility] ([place]) Comment on above: Performed By: #### C BC, ADIFF, ANEU, LIP, CMP, GFR, PBNP, TROPHS #### [address] [address] BMPon 08-10-2021 BUN/Creatinine Ratio 15.5 ratio Normal 10.0-22.0 [facility] ([place]) Comment on above: Performed By: #### C BC, ADIFF, ANEU, LIP, CMP, GFR, PBNP, TROPHS #### [address] [address] Calcium [Mass/Vol] 9.0 mg/dL Normal 8.4-10.1 [facility] ([place]) Comment on above: Result Comment: No te - New Reference Range in effect 20 Performed By: #### C BC, ADIFF, ANEU, LIP, CMP, GFR, PBNP, TROPHS #### [address] [address] Chloride [Moles/Vol] 104 mmol/L Normal 98-110 [facility] ([place]) Comment on above: Performed By: #### C BC, ADIFF, ANEU, LIP, CMP, GFR, PBNP, TROPHS #### [address] [address] CO2 [Moles/Vol] 30 mmol/L Normal 22-32 [facility] ([place]) Comment on above: Performed By: #### C BC, ADIFF, ANEU, LIP, CMP, GFR, PBNP, TROPHS #### [address] [address] Creatinine [Mass/Vol] 0.84 mg/dL Normal 0.50-1.20 Counts include 234 beds at the [facility] ([place]) Comment on above: Performed By: #### C BC, ADIFF, ANEU, LIP, CMP, GFR, PBNP, TROPHS #### [address] [address] Electrolyte Balance 6.0 mEq/L Normal 4.0-15.0 [facility] ([place]) Comment on above: Performed By: #### C BC, ADIFF, ANEU, LIP, CMP, GFR, PBNP, TROPHS #### [address] [address] Glucose [Mass/Vol] 156 mg/dL High 70-110 [facility] ([place]) Comment on above: Performed By: #### C BC, ADIFF, ANEU, LIP, CMP, GFR, PBNP, TROPHS #### [address] [address] Potassium [Moles/Vol] 3.8 mmol/L Normal 3.5-5.0 Counts include 234 beds at the [facility] ([place]) Comment on above: Result Comment: Spec imen slightly hemolyzed. Performed By: #### C BC, ADIFF, ANEU, LIP, CMP, GFR, PBNP, TROPHS #### [place] [address] Sodium [Moles/Vol] 140 mmol/L Normal 136-145 [facility] ([place]) Comment on above: Performed By: #### C BC, ADIFF, ANEU, LIP, CMP, GFR, PBNP, TROPHS #### [address] [address] Urea nitrogen [Mass/Vol] 13.0 mg/dL Normal 8.0-22.0 [facility] ([place] Comment on above: Performed By: #### C BC, ADIFF, ANEU, LIP, CMP, GFR, PBNP, TROPHS #### [address] [address] CBCon 08-10-2021 Erythrocyte distribution width (RBC) [Ratio] 16.3 % High 11.5-14.5 [facility] ([place] Comment on above: Performed By: #### C BC, ADIFF, ANEU, LIP, CMP, GFR, PBNP, TROPHS #### [address] [address] Hematocrit (Bld) [Volume fraction] 38.9 % Normal 37.0-47.0 [facility] ([place] Comment on above: Performed By: #### C BC, ADIFF, ANEU, LIP, CMP, GFR, PBNP, TROPHS #### [address] [address] Hgb 12.7 G/dL Normal 12.0-16.0 [facility] ([place] Comment on above: Performed By: #### C BC, ADIFF, ANEU, LIP, CMP, GFR, PBNP, TROPHS #### [address] [address] MCH (RBC) [Entitic mass] 29.6 pg Normal 27.0-31.2 [facility] ([place] Comment on above: Performed By: #### C BC, ADIFF, ANEU, LIP, CMP, GFR, PBNP, TROPHS #### [place] [address] MCHC 32.8 G/dL Low 33.0-37.0 [facility] ([place] Comment on above: Performed By: #### C BC, ADIFF, ANEU, LIP, CMP, GFR, PBNP, TROPHS #### [place] [address] MCV (RBC) [Entitic vol] 90.4 fL Normal 80.0-94.0 [facility] ([place]) Comment on above: Performed By: #### C BC, ADIFF, ANEU, LIP, CMP, GFR, PBNP, TROPHS #### [place] [phone] Platelet 179 10 3/mcL Normal 130-400 [facility] ([place]) Comment on above: Performed By: #### C BC, ADIFF, ANEU, LIP, CMP, GFR, PBNP, TROPHS #### [address] [address] Platelet mean volume (Bld) [Entitic vol] 10.5 fL High 7.4-10.4 [facility] ([place] Comment on above: Performed By: #### C BC, ADIFF, ANEU, LIP, CMP, GFR, PBNP, TROPHS #### [place] [phone] RBC 4.30 10 6/mcL Normal 4.20-5.40 [facility] ([place] Comment on above: Performed By: #### C BC, ADIFF, ANEU, LIP, CMP, GFR, PBNP, TROPHS #### [facility] [address] [place], [place] [address] WBC 7.80 10 3/mcL Normal 4.60-10.80 [facility] ([place] Comment on above: Performed By: #### C BC, ADIFF, ANEU, LIP, CMP, GFR, PBNP, TROPHS #### [facility] [address] [place], [place] [address] LABORATORYOrdered By: Renu Redding on 08-10-2021 Drug Screen Urine Negative (08/10/21 11:12 PM) Invalid Interpretation Code Chemistry S Drug Screen Urine Interp Urine shows no evidence of drugs routinely screened. Invalid Interpretation Code AH Chemistry S pH (U) 8.0 [pH] Invalid Interpretation Code 5.0 - 8.0 AH Chemistry S Specific gravity (U) [Rel density] 1.008 Invalid Interpretation Code 1.005 - 1.030 AH Chemistry S Urine Drugs screened: See Below (08/10/21 11:12 PM) Invalid Interpretation Code AH Chemistry S LABORATORYOrdered By: Philip Cool on 08-10-2021 Magnesium [Mass/Vol] 1.9 mg/dL Invalid Interpretation Code 1.8 - 2.4 mg/dL AO ADM SS aPTT Coag (Bld) [Time] 28.6 s Invalid Interpretation Code 24.8 - 33.3 seconds AO Coag SS Heparin dose (APTT) Heparin IV (08/10/21 9:11 AM) Invalid Interpretation Code AO Coag SS INR Coag (PPP) [Relative time] 1.2 {INR} Invalid Interpretation Code 0.9 - 1.2 ratio AO Coag SS PT Coag (PPP) [Time] 14.3 s Invalid Interpretation Code 9.7 - 14.3 seconds AO Coag SS LABORATORYOrdered By: Emerita Lacey on 08-10-2021 Basophil, Absolute 0.10 103/mcL Invalid Interpretation Code 0.00 - 0.19 10^3/mcL AO Auto Heme SS Basophils/100 WBC (Bld) 1.5 % Invalid Interpretation Code 0.0 - 2.5 % AO Auto Heme SS Eosinophil, Absolute 0.10 103/mcL Invalid Interpretation Code 0.00 - 0.40 10^3/mcL AO Auto Heme SS Eosinophils/100 WBC (Bld) 1.6 % Invalid Interpretation Code 0.0 - 7.0 % AO Auto Heme SS Erythrocyte distribution width (RBC) [Ratio] 16.3 % Invalid Interpretation Code 11.5 - 14.5 % AO Auto Heme SS Hematocrit (Bld) [Volume fraction] 38.9 % Invalid Interpretation Code 37.0 - 47.0 % AO Auto Heme SS Hemoglobin (Bld) [Mass/Vol] 12.7 G/dL Invalid Interpretation Code 12.0 - 16.0 G/dL AO Auto Heme SS Lymphocyte, Absolute 2.20 103/mcL Invalid Interpretation Code 0.77 - 3.85 10^3/mcL AO Auto Heme SS Lymphocytes/100 WBC (Bld) 28.7 % Invalid Interpretation Code 10.0 - 50.0 % AO Auto Heme SS MCH (RBC) [Entitic mass] 29.6 pg Invalid Interpretation Code 27.0 - 31.2 pg AO Auto Heme SS MCHC (RBC) [Mass/Vol] 32.8 G/dL Invalid Interpretation Code 33.0 - 37.0 G/dL AO Auto Heme SS MCV (RBC) [Entitic vol] 90.4 fL Invalid Interpretation Code 80.0 - 94.0 fL AO Auto Heme SS Monocyte, Absolute 0.70 103/mcL Invalid Interpretation Code 0.15 - 1.00 10^3/mcL AO Auto Heme SS Monocytes/100 WBC (Bld) 9.2 % Invalid Interpretation Code 1.7 - 13.0 % AO Auto Heme SS Neutrophil, Absolute 4.60 103/mcL Invalid Interpretation Code 2.85 - 6.16 10^3/mcL AO Auto Heme SS Neutrophils/100 WBC (Bld) 59.0 % Invalid Interpretation Code 37.0 - 80.0 % AO Auto Heme SS Platelet mean volume (Bld) [Entitic vol] 10.5 fL Invalid Interpretation Code 7.4 - 10.4 fL AO Auto Heme SS Platelets (Bld) [#/Vol] 179 103/mcL Invalid Interpretation Code 130 - 400 10^3/mcL AO Auto Heme SS RBC (Bld) [#/Vol] 4.30 106/mcL Invalid Interpretation Code 4.20 - 5.40 10^6/mcL AO Auto Heme SS WBC (Bld) [#/Vol] 7.80 103/mcL Invalid Interpretation Code 4.60 - 10.80 10^3/mcL AO Auto Heme SS LABORATORYOrdered By: Shayy Pierce on 08-10-2021 Glucose [Mass/Vol] 200 mg/dL Invalid Interpretation Code 70 - 110 mg/dL [facility] MGon 08-10-2021 Magnesium [Mass/Vol] 1.9 mg/dL Normal 1.8-2.4 [facility] ([place]) Comment on above: Performed By: #### C BC, ADIFF, ANEU, LIP, CMP, GFR, PBNP, TROPHS #### [address] [address] No Panel InformationOrdered By: Samanta Pan on 08-10-2021 Blood Glucose Testing Reason Routine (08/10/21 8:19 AM) [facility] PROon 08-10-2021 INR Coag (PPP) [Relative time] 1.2 {INR} Normal 0.9-1.2 [facility] ([place]) Comment on above: Result Comment: Moose dard Dose 2.0 - 3.0 High Dose 2.5 - 3.5 The recommended therapeutic range for oral anticoagulant therapy is: LOW RISK: Prophylaxis of venous thrombosis INR: 2.0 - 3.0 Treatment of pulmonary embolism 2.0 - 3.0 Prevention of systemic embolism 2.0 - 3.0 HIGH RISK: Mechanical prosthetic valves 2.5 - 3.5 Performed By: #### C BC, ADIFF, ANEU, LIP, CMP, GFR, PBNP, TROPHS #### [address] [address] PT Coag (PPP) [Time] 14.3 s Normal 9.7-14.3 [facility] ([place]) Comment on above: Performed By: #### C BC, ADIFF, ANEU, LIP, CMP, GFR, PBNP, TROPHS #### [place] [address] [place], [place] [address] .Auto Diffon 08-09-2021 Basophil, Absolute 0.10 10 3/mcL Normal 0.00-0.19 Counts include 234 beds at the [facility] ([place]) Comment on above: Performed By: #### C BC, ADIFF, ANEU, LIP, CMP, GFR, PBNP, TROPHS #### [address] [address] Basophils/100 WBC (Bld) 1.1 % Normal 0.0-2.5 [facility] ([place]) Comment on above: Performed By: #### C BC, ADIFF, ANEU, LIP, CMP, GFR, PBNP, TROPHS #### [address] [address] Eosinophil, Absolute 0.10 10 3/mcL Normal 0.00-0.40 [facility] ([place]) Comment on above: Performed By: #### C BC, ADIFF, ANEU, LIP, CMP, GFR, PBNP, TROPHS #### [address] [address] Eosinophils/100 WBC (Bld) 0.8 % Normal 0.0-7.0 [facility] ([place]) Comment on above: Performed By: #### C BC, ADIFF, ANEU, LIP, CMP, GFR, PBNP, TROPHS #### [address] [address] Lymphocyte, Absolute 3.20 10 3/mcL Normal 0.77-3.85 [facility] ([place]) Comment on above: Performed By: #### C BC, ADIFF, ANEU, LIP, CMP, GFR, PBNP, TROPHS #### [address] [address] Lymphocytes/100 WBC (Bld) 27.0 % Normal 10.0-50.0 [facility] ([place]) Comment on above: Performed By: #### C BC, ADIFF, ANEU, LIP, CMP, GFR, PBNP, TROPHS #### [address] [address] Monocyte, Absolute 0.90 10 3/mcL Normal 0.15-1.00 Counts include 234 beds at the [facility] ([place]) Comment on above: Performed By: #### C BC, ADIFF, ANEU, LIP, CMP, GFR, PBNP, TROPHS #### [address] [address] Monocytes/100 WBC (Bld) 7.4 % Normal 1.7-13.0 [facility] ([place]) Comment on above: Performed By: #### C BC, ADIFF, ANEU, LIP, CMP, GFR, PBNP, TROPHS #### [address] [address] Neutrophils/100 WBC (Bld) 63.7 % Normal 37.0-80.0 [facility] ([place] Comment on above: Performed By: #### C BC, ADIFF, ANEU, LIP, CMP, GFR, PBNP, TROPHS #### [address] [address] .GFRon 08-09-2021 GFR 72 ml/min/1.73sqm Normal [facility] ([place]) Comment on above: Result Comment: GFR Population mean for , Non- Americans Ages 20-29 = 116 mL/min/1.73 sq.m. Ages 30-39 = 107 mL/min/1.73 sq.m. Ages 40-49 = 99 mL/min/1.73 sq.m. Ages 50-59 = 93 mL/min/1.73 sq.m. Ages 60-69 = 85 mL/min/1.73 sq.m. Ages 70+ = 75 mL/min/1.73 sq.m. Chronic Kidney Disease: Less than 60 mL/min/1.73 square meters End Stage Renal Disease: Less than 15 mL/min/1.73 square meters Performed By: #### C BC, ADIFF, ANEU, LIP, CMP, GFR, PBNP, TROPHS #### [address] [address] GFR Non- 60 ml/min/1.73sqm Normal [facility] ([place]) Comment on above: Result Comment: GFR Population mean for , Non- Americans Ages 20-29 = 116 mL/min/1.73 sq.m. Ages 30-39 = 107 mL/min/1.73 sq.m. Ages 40-49 = 99 mL/min/1.73 sq.m. Ages 50-59 = 93 mL/min/1.73 sq.m. Ages 60-69 = 85 mL/min/1.73 sq.m. Ages 70+ = 75 mL/min/1.73 sq.m. Chronic Kidney Disease: Less than 60 mL/min/1.73 square meters End Stage Renal Disease: Less than 15 mL/min/1.73 square meters Performed By: #### C BC, ADIFF, ANEU, LIP, CMP, GFR, PBNP, TROPHS #### [address] [address] GFR 68 ml/min/1.73sqm Normal [facility] ([place]) Comment on above: Result Comment: GFR Population mean for , Non- Americans Ages 20-29 = 116 mL/min/1.73 sq.m. Ages 30-39 = 107 mL/min/1.73 sq.m. Ages 40-49 = 99 mL/min/1.73 sq.m. Ages 50-59 = 93 mL/min/1.73 sq.m. Ages 60-69 = 85 mL/min/1.73 sq.m. Ages 70+ = 75 mL/min/1.73 sq.m. Chronic Kidney Disease: Less than 60 mL/min/1.73 square meters End Stage Renal Disease: Less than 15 mL/min/1.73 square meters Performed By: #### C BC, ADIFF, ANEU, LIP, CMP, GFR, PBNP, TROPHS #### [address] [address] GFR Non- 56 ml/min/1.73sqm [facility] ([place]) Comment on above: Result Comment: GFR Population mean for , Non- Americans Ages 20-29 = 116 mL/min/1.73 sq.m. Ages 30-39 = 107 mL/min/1.73 sq.m. Ages 40-49 = 99 mL/min/1.73 sq.m. Ages 50-59 = 93 mL/min/1.73 sq.m. Ages 60-69 = 85 mL/min/1.73 sq.m. Ages 70+ = 75 mL/min/1.73 sq.m. Chronic Kidney Disease: Less than 60 mL/min/1.73 square meters End Stage Renal Disease: Less than 15 mL/min/1.73 square meters Performed By: #### C BC, ADIFF, ANEU, LIP, CMP, GFR, PBNP, TROPHS #### [place] [address] .NEUABSon 08-09-2021 Neutrophil, Absolute 7.60 10 3/mcL High 2.85-6.16 [facility] ([place]) Comment on above: Performed By: #### C BC, ADIFF, ANEU, LIP, CMP, GFR, PBNP, TROPHS #### [place] [address] .Urinalysis Microscopic (AO) on 08-09-2021 UA Bacteria Trace Abnormal [facility] ([place]) Comment on above: Performed By: #### C BC, ADIFF, ANEU, LIP, CMP, GFR, PBNP, TROPHS #### [place] [address] UA RBC None Seen Normal None Seen [facility] ([place] Comment on above: Performed By: #### C BC, ADIFF, ANEU, LIP, CMP, GFR, PBNP, TROPHS #### [place] [address] UA Squam Epithelial 0-5 Abnormal None Seen [facility] ([place]) Comment on above: Performed By: #### C BC, ADIFF, ANEU, LIP, CMP, GFR, PBNP, TROPHS #### [place] [address] UA WBC 10-15 Abnormal None Seen [facility] ([place] Comment on above: Performed By: #### C BC, ADIFF, ANEU, LIP, CMP, GFR, PBNP, TROPHS #### [place] [address] A1Con 08-09-2021 HbA1c (Bld) [Mass fraction] 9.8 % High 4.3-6.4 [facility] ([place]) Comment on above: Performed By: #### C BC, ADIFF, ANEU, LIP, CMP, GFR, PBNP, TROPHS #### [address] [address] CBCon 08-09-2021 Erythrocyte distribution width (RBC) [Ratio] 16.4 % High 11.5-14.5 [facility] ([place] Comment on above: Performed By: #### C BC, ADIFF, ANEU, LIP, CMP, GFR, PBNP, TROPHS #### [place] [phone] Hematocrit (Bld) [Volume fraction] 43.2 % Normal 37.0-47.0 [facility] ([place] Comment on above: Performed By: #### C BC, ADIFF, ANEU, LIP, CMP, GFR, PBNP, TROPHS #### [place] [address] Hgb 14.2 G/dL Normal 12.0-16.0 [facility] ([place] Comment on above: Performed By: #### C BC, ADIFF, ANEU, LIP, CMP, GFR, PBNP, TROPHS #### [address] [address] MCH (RBC) [Entitic mass] 29.8 pg Normal 27.0-31.2 [facility] ([place] Comment on above: Performed By: #### C BC, ADIFF, ANEU, LIP, CMP, GFR, PBNP, TROPHS #### [place] [address] MCHC 32.9 G/dL Low 33.0-37.0 [facility] ([place] Comment on above: Performed By: #### C BC, ADIFF, ANEU, LIP, CMP, GFR, PBNP, TROPHS #### [place] [phone] MCV (RBC) [Entitic vol] 90.6 fL Normal 80.0-94.0 [facility] ([place] Comment on above: Performed By: #### C BC, ADIFF, ANEU, LIP, CMP, GFR, PBNP, TROPHS #### [place] [address] Platelet 232 10 3/mcL Normal 130-400 [facility] ([place] Comment on above: Performed By: #### C BC, ADIFF, ANEU, LIP, CMP, GFR, PBNP, TROPHS #### [address] [address] Platelet mean volume (Bld) [Entitic vol] 10.8 fL High 7.4-10.4 [facility] ([place] Comment on above: Performed By: #### C BC, ADIFF, ANEU, LIP, CMP, GFR, PBNP, TROPHS #### [address] [address] RBC 4.76 10 6/mcL Normal 4.20-5.40 [facility] ([place] Comment on above: Performed By: #### C BC, ADIFF, ANEU, LIP, CMP, GFR, PBNP, TROPHS #### [address] [address] WBC 11.90 10 3/mcL High 4.60-10.80 [facility] ([place] Comment on above: Performed By: #### C BC, ADIFF, ANEU, LIP, CMP, GFR, PBNP, TROPHS #### [address] [address] CMPon 08-09-2021 Albumin Level 3.2 G/dL Low 3.5-5.0 [facility] ([place] Comment on above: Performed By: #### C BC, ADIFF, ANEU, LIP, CMP, GFR, PBNP, TROPHS #### [address] [address] Albumin/Globulin [Mass ratio] 0.9 {ratio} Low 1.1-2.5 [facility] ([place] Comment on above: Performed By: #### C BC, ADIFF, ANEU, LIP, CMP, GFR, PBNP, TROPHS #### [address] [address] ALP [Catalytic activity/Vol] 90 U/L Normal 40-135 [facility] ([place] Comment on above: Performed By: #### C BC, ADIFF, ANEU, LIP, CMP, GFR, PBNP, TROPHS #### [address] [address] ALT [Catalytic activity/Vol] 25 U/L Normal 14-59 [facility] ([place] Comment on above: Performed By: #### C BC, ADIFF, ANEU, LIP, CMP, GFR, PBNP, TROPHS #### [address] [address] AST [Catalytic activity/Vol] 20 U/L Normal 10-40 [facility] ([place] Comment on above: Performed By: #### C BC, ADIFF, ANEU, LIP, CMP, GFR, PBNP, TROPHS #### [address] [address] Bili Total 1.2 mg/dL High 0.2-1.0 [facility] ([place] Comment on above: Result Comment: Use of this assay is not recommended for patients undergoing treatment with eltrombopag due to the potential for falsely elevated results. Performed By: #### C BC, ADIFF, ANEU, LIP, CMP, GFR, PBNP, TROPHS #### [address] [address] BUN/Creatinine Ratio 12 ratio Normal 7-27 [facility] ([place] Comment on above: Performed By: #### C BC, ADIFF, ANEU, LIP, CMP, GFR, PBNP, TROPHS #### [address] [address] Calcium [Mass/Vol] 8.6 mg/dL Normal 8.4-10.2 [facility] ([place]) Comment on above: Performed By: #### C BC, ADIFF, ANEU, LIP, CMP, GFR, PBNP, TROPHS #### [address] [address] Chloride [Moles/Vol] 103 mmol/L Normal 98-107 [facility] ([place] Comment on above: Performed By: #### C BC, ADIFF, ANEU, LIP, CMP, GFR, PBNP, TROPHS #### [address] [address] CO2 [Moles/Vol] 30 mmol/L High 22-29 [facility] ([place]) Comment on above: Performed By: #### C BC, ADIFF, ANEU, LIP, CMP, GFR, PBNP, TROPHS #### [address] [address] Creatinine [Mass/Vol] 0.99 mg/dL Normal 0.55-1.02 Counts include 234 beds at the [facility] ([place]) Comment on above: Performed By: #### C BC, ADIFF, ANEU, LIP, CMP, GFR, PBNP, TROPHS #### [address] [address] Electrolyte Balance 9.0 mEq/L Normal [facility] ([place]) Comment on above: Performed By: #### C BC, ADIFF, ANEU, LIP, CMP, GFR, PBNP, TROPHS #### [address] [address] Globulin 3.7 G/dL Normal [facility] ([place]) Comment on above: Performed By: #### C BC, ADIFF, ANEU, LIP, CMP, GFR, PBNP, TROPHS #### [address] [address] Glucose [Mass/Vol] 219 mg/dL High 70-105 [facility] ([place]) Comment on above: Performed By: #### C BC, ADIFF, ANEU, LIP, CMP, GFR, PBNP, TROPHS #### [address] [address] Potassium [Moles/Vol] 3.5 mmol/L Normal 3.5-5.1 Counts include 234 beds at the [facility] ([place]) Comment on above: Performed By: #### C BC, ADIFF, ANEU, LIP, CMP, GFR, PBNP, TROPHS #### [address] [address] Sodium [Moles/Vol] 142 mmol/L Normal 136-145 [facility] ([place]) Comment on above: Performed By: #### C BC, ADIFF, ANEU, LIP, CMP, GFR, PBNP, TROPHS #### [address] [address] [address] Total Protein 6.9 G/dL Normal 6.4-8.2 [facility] ([place]) Comment on above: Performed By: #### C BC, ADIFF, ANEU, LIP, CMP, GFR, PBNP, TROPHS #### [address] [address] Urea nitrogen [Mass/Vol] 12 mg/dL Normal 7-18 [facility] ([place] Comment on above: Performed By: #### C BC, ADIFF, ANEU, LIP, CMP, GFR, PBNP, TROPHS #### [address] [address] Albumin Level 3.4 G/dL Low 3.5-5.0 [facility] ([place] Comment on above: Performed By: #### C BC, ADIFF, ANEU, LIP, CMP, GFR, PBNP, TROPHS #### [address] [address] Albumin/Globulin [Mass ratio] 0.9 {ratio} Low 1.1-2.5 [facility] ([place] Comment on above: Performed By: #### C BC, ADIFF, ANEU, LIP, CMP, GFR, PBNP, TROPHS #### [address] [address] ALP [Catalytic activity/Vol] 98 U/L Normal 40-135 [facility] ([place] Comment on above: Performed By: #### C BC, ADIFF, ANEU, LIP, CMP, GFR, PBNP, TROPHS #### [address] [address] ALT [Catalytic activity/Vol] 29 U/L Normal 14-59 [facility] ([place] Comment on above: Performed By: #### C BC, ADIFF, ANEU, LIP, CMP, GFR, PBNP, TROPHS #### [address] [address] AST [Catalytic activity/Vol] 25 U/L Normal 10-40 [facility] [place] Comment on above: Performed By: #### C BC, ADIFF, ANEU, LIP, CMP, GFR, PBNP, TROPHS #### [address] [address] Bili Total 1.2 mg/dL High 0.2-1.0 [facility] ([place] Comment on above: Result Comment: Use of this assay is not recommended for patients undergoing treatment with eltrombopag due to the potential for falsely elevated results. Performed By: #### C BC, ADIFF, ANEU, LIP, CMP, GFR, PBNP, TROPHS #### [address] [address] BUN/Creatinine Ratio 12 ratio Normal 7-27 [facility] ([place]) Comment on above: Performed By: #### C BC, ADIFF, ANEU, LIP, CMP, GFR, PBNP, TROPHS #### [address] [address] Calcium [Mass/Vol] 8.9 mg/dL Normal 8.4-10.2 [facility] ([place]) Comment on above: Performed By: #### C BC, ADIFF, ANEU, LIP, CMP, GFR, PBNP, TROPHS #### [address] [address] Chloride [Moles/Vol] 103 mmol/L Normal 98-107 [facility] ([place] Comment on above: Performed By: #### C BC, ADIFF, ANEU, LIP, CMP, GFR, PBNP, TROPHS #### [address] [address] CO2 [Moles/Vol] 26 mmol/L Normal 22-29 [facility] [place] Comment on above: Performed By: #### C BC, ADIFF, ANEU, LIP, CMP, GFR, PBNP, TROPHS #### [address] [address] Creatinine [Mass/Vol] 1.05 mg/dL High 0.55-1.02 Counts include 234 beds at the [facility] ([place]) Comment on above: Performed By: #### C BC, ADIFF, ANEU, LIP, CMP, GFR, PBNP, TROPHS #### [address] [address] Electrolyte Balance 10.0 mEq/L Normal [facility] ([place]) Comment on above: Performed By: #### C BC, ADIFF, ANEU, LIP, CMP, GFR, PBNP, TROPHS #### [address] [address] Globulin 3.9 G/dL Normal [facility] ([place] Comment on above: Performed By: #### C BC, ADIFF, ANEU, LIP, CMP, GFR, PBNP, TROPHS #### [address] [address] Glucose [Mass/Vol] 281 mg/dL High 70-105 [facility] ([place]) Comment on above: Performed By: #### C BC, ADIFF, ANEU, LIP, CMP, GFR, PBNP, TROPHS #### [address] [address] Potassium [Moles/Vol] 4.4 mmol/L Normal 3.5-5.1 Counts include 234 beds at the [facility] ([place]) Comment on above: Performed By: #### C BC, ADIFF, ANEU, LIP, CMP, GFR, PBNP, TROPHS #### [address] [address] Sodium [Moles/Vol] 139 mmol/L Normal 136-145 [facility] ([place]) Comment on above: Performed By: #### C BC, ADIFF, ANEU, LIP, CMP, GFR, PBNP, TROPHS #### [address] [address] Total Protein 7.3 G/dL Normal 6.4-8.2 [facility] ([place] Comment on above: Performed By: #### C BC, ADIFF, ANEU, LIP, CMP, GFR, PBNP, TROPHS #### [address] [address] Urea nitrogen [Mass/Vol] 13 mg/dL Normal 7-18 [facility] ([place] Comment on above: Performed By: #### C BC, ADIFF, ANEU, LIP, CMP, GFR, PBNP, TROPHS #### [place] [address] [id number] 08-09-2021 Date of Onset [id number] Invalid Interpretation Code [facility] [place] Comment on above: Performed By: #### C BC, ADIFF, ANEU, LIP, CMP, GFR, PBNP, TROPHS #### [place] [address] Employed in Healthcare No [facility] ([place]) Comment on above: Performed By: #### C BC, ADIFF, ANEU, LIP, CMP, GFR, PBNP, TROPHS #### [place] [address] First [facility] ([place] Comment on above: Performed By: #### C BC, ADIFF, ANEU, LIP, CMP, GFR, PBNP, TROPHS #### [place] [address] Hospitalized [facility] [place] Comment on above: Performed By: #### C BC, ADIFF, ANEU, LIP, CMP, GFR, PBNP, TROPHS #### [place] [address] ICU [facility] [place] Comment on above: Performed By: #### C BC, ADIFF, ANEU, LIP, CMP, GFR, PBNP, TROPHS #### [place] [address] [facility] [place] Comment on above: Performed By: #### C BC, ADIFF, ANEU, LIP, CMP, GFR, PBNP, TROPHS #### [place] [address] Resides in Congregate Care Setting [facility] ([place] Comment on above: Performed By: #### C BC, ADIFF, ANEU, LIP, CMP, GFR, PBNP, TROPHS #### [address] [address] SARS-CoV-2 (COVID-19) RNA SHAI+probe Ql (Unsp spec) Negative Normal Negative [facility] [place] Comment on above: Performed By: #### C BC, ADIFF, ANEU, LIP, CMP, GFR, PBNP, TROPHS #### [address] [address] [place], [place] [address] SARS-CoV-2 (COVID-19) RNA SHAI+probe Ql (Unsp spec) Normal [facility] [place] Comment on above: Result Comment: Nega tive results do not preclude SARS-CoV-2 infection and should not be used as the sole basis for patient management decisions. Negative results must be combined with clinical observations, patient history, and epidemiological information. There is a risk of false negative values resulting from improperly collected, transported, or handled specimens. There is a risk of false negative values due to the presence of sequence variants in the pathogen targets of the assay, procedural errors, amplification inhibitors in specimens, or inadequate numbers of organisms for amplification. MATHEUS SARS-CoV-2 Assay is a Real-Time reverse-transcriptase polymerase chain reaction (RT-PCR) based qualitative in vitro diagnostic test intended for the qualitative detection of nucleic acid from the SARS-CoV-2 in nasopharyngeal swab specimens collected from individuals suspected of COVID-19 by their healthcare provider. Testing is limited to laboratories certified under the Clinical Laboratory Improvement Amendments of 1988 (CLIA), 42 U.S.C. ?263a, to perform moderate and high complexity tests. COVID-19 Int Performed By: #### C BC, ADIFF, ANEU, LIP, CMP, GFR, PBNP, TROPHS #### [address] [address] Symptomatic as Defined by CDC Yes Normal [facility] ([place] Comment on above: Performed By: #### C BC, ADIFF, ANEU, LIP, CMP, GFR, PBNP, TROPHS #### [place] [address] [place], [place] [address] CT CHEST/ABDOMEN/PELVIS W/CO NTRASTon 08-09-2021 CT CHEST/ABDOMEN/PELVIS W/CONTRAST ORIGINAL EXAMINATION: CT pulmonary angiogram OF THE CHEST, CT ABDOMEN AND PELVIS WITH CONTRAST 08/09/2021 3:43 am TECHNIQUE: CT of the chest, abdomen and pelvis was performed with the administration of intravenous contrast. Multiplanar reformatted images are provided for review. Dose modulation, iterative reconstruction, and/or weight based adjustment of the mA/kV was utilized to reduce the radiation dose to as low as reasonably achievable. Three-dimensional reconstructions were created.. No pulmonary embolism is present. Pulmonary arteries are normal in size. The heart is mildly enlarged in a generalized manner. No pericardial fluid is present. The thoracic aorta is nonaneurysmal. No coronary artery calcification is detected. COMPARISON: Chest x-ray on 08/09/2021 HISTORY: ORDERING SYSTEM PROVIDED HISTORY: Reason for Exam: difficulty breathing; suspect PE Short of breath. Abdomen pain. FINDINGS: Chest: Mediastinum: There is adequate opacification of pulmonary arteries. There is no pulmonary embolism. Pulmonary arteries are normal in size. The heart is mildly enlarged in a generalized manner. There is no pericardial fluid. No coronary artery calcification is present. Thoracic aorta is nonaneurysmal. A 1.1 cm right paratracheal lymph node is present. There is a 1.4 cm right hilar lymph node Lungs/pleura: Small right pleural effusion layers out dependently. There is mild atelectasis associated with the right pleural fluid. Small ground-glass infiltrate in the left upper lobe is present. There is a 4 mm noncalcified right upper lobe nodule seen on image 15 of series 7. Soft Tissues/Bones: No acute findings. Abdomen/Pelvis: Organs: The liver, pancreas, spleen, adrenal glands, and kidneys show no sign of acute abnormality. GI/Bowel: There is no intestinal obstruction or inflammation the appendix is normal. There is a small amount of generalized ascites. No free intraperitoneal air is present. Pelvis: There is small amount of ascites in the pelvis. Uterus is normal in size and contains an intrauterine contraceptive device. There is a 1 cm faint hyperdensity in the uterus that is likely a small fibroid. There is no adnexal abnormality. Urinary bladder is nearly empty and contains no stones. Peritoneum/Retroperi toneum: Abdominal aorta is nonaneurysmal. Inferior vena cava is normal in size. There is no retroperitoneal lymph node enlargement. Bones/Soft Tissues: No acute or aggressive osseous lesion is present. There is moderate generalized edema of abdominal wall consistent with anasarca. IMPRESSION: Mild cardiomegaly, small pleural effusion, small amount of ascites, and anasarca. These findings may be on the basis of congestive heart failure. Hepatic failure or renal insufficiency are also considerations. No hepatic or renal abnormality is detected on this exam. No pulmonary embolism. Small ground-glass infiltrate in left upper lobe may be infectious or inflammatory. 4 mm right upper lobe lung nodule. If patient is low risk, no routine follow-up. If patient is high risk, optional CT at 12 months. If stable at 12 months, no further follow-up. Mild mediastinal and right hilar lymph node enlargement is likely reactive. Interpreted by: Jeremy Polk MD Preliminary Report By: Jeremy Polk MD Electronically signed By Jeremy Polk MD Dictated Date: 08/09/2021 3:49:17 AM Prelim Date: 08/09/2021 4:05:06 AM Sign Date: 08/09/2021 4:05:06 AM Ordering Provider: PHUONG Casas [facility]) DIMERon 08-09-2021 D-Dimer 535 ng/mL D-DU High 0-230 [facility]) Comment on above: Result Comment: The result of the D-Dimer test should be evaluated in the context of all the clinical and laboratory data available. In those instances where the laboratory result does not agree with the clinical evaluation, additional tests should be performed accordingly. If the D-Dimer result is used to exclude DVT or PE, the recommended cutoff value is less than 230 ng/mL. The D-Dimer result should not be used alone to rule in DVT/PE, but should be used in conjunction with a clinical pretest probability (PTP)assessment model to exclude venous thromboembolism (VTE) in outpatients suspected of deep venous thrombosis (DVT) and pulmonary embolism (PE). Performed By: #### C BC, ADIFF, ANEU, LIP, CMP, GFR, PBNP, TROPHS #### [facility] [address] [place], [place] [address] LABORATORYOrdered By: Jocelyn Lopez on 08-09-2021 Blood Glucose Testing Reason Routine (08/09/21 8:37 PM) [facility] Glucose [Mass/Vol] 168 mg/dL Invalid Interpretation Code 70 - 110 mg/dL [facility] LABORATORYOrdered By: Jag Palencia on 08-09-2021 Glucose [Mass/Vol] 181 mg/dL Invalid Interpretation Code 70 - 110 mg/dL [facility] LABORATORYOrdered By: Alvina Hernandez on 08-09-2021 Albumin BCP dye [Mass/Vol] 3.2 G/dL Invalid Interpretation Code 3.5 - 5.0 G/dL AO ADM SS Albumin/Globulin [Mass ratio] 0.9 {ratio} Invalid Interpretation Code 1.1 - 2.5 ratio AO ADM SS ALP [Catalytic activity/Vol] 90 U/L Invalid Interpretation Code 40 - 135 U/L AO ADM SS ALT With P-5'-P [Catalytic activity/Vol] 25 U/L Invalid Interpretation Code 14 - 59 U/L AO ADM SS AST With P-5'-P [Catalytic activity/Vol] 20 U/L Invalid Interpretation Code 10 - 40 U/L AO ADM SS Bilirubin [Mass/Vol] 1.2 mg/dL Invalid Interpretation Code 0.2 - 1.0 mg/dL AO ADM SS Calcium [Mass/Vol] 8.6 mg/dL Invalid Interpretation Code 8.4 - 10.2 mg/dL AO ADM SS Chloride [Moles/Vol] 103 mmol/L Invalid Interpretation Code 98 - 107 mmol/L AO ADM SS CO2 [Moles/Vol] 30 mmol/L Invalid Interpretation Code 22 - 29 mmol/L AO ADM SS Creatinine [Mass/Vol] 0.99 mg/dL Invalid Interpretation Code 0.55 - 1.02 mg/dL AO ADM SS Electrolyte Balance 9.0 mEq/L Invalid Interpretation Code AO ADM SS Globulin 3.7 G/dL Invalid Interpretation Code AO ADM SS Glucose [Mass/Vol] 219 mg/dL Invalid Interpretation Code 70 - 105 mg/dL AO ADM SS HbA1c (Bld) [Mass fraction] 9.8 % Invalid Interpretation Code 4.3 - 6.4 % AO ADM SS Potassium [Moles/Vol] 3.5 mmol/L Invalid Interpretation Code 3.5 - 5.1 mmol/L AO ADM SS Protein [Mass/Vol] 6.9 G/dL Invalid Interpretation Code 6.4 - 8.2 G/dL AO ADM SS Sodium [Moles/Vol] 142 mmol/L Invalid Interpretation Code 136 - 145 mmol/L AO ADM SS Troponin I.cardiac DL <= 0.01 ng/mL [Mass/Vol] 55.7 ng/L Invalid Interpretation Code 0.0 - 51.4 ng/L AO ADM SS Urea nitrogen [Mass/Vol] 12 mg/dL Invalid Interpretation Code 7 - 18 mg/dL AO ADM SS Urea nitrogen/Creatinine [Mass ratio] 12 ratio Invalid Interpretation Code 7 - 27 ratio AO ADM SS Troponin I.cardiac DL <= 0.01 ng/mL [Mass/Vol] 53.7 ng/L Invalid Interpretation Code 0.0 - 51.4 ng/L AO ADM SS LABORATORYOrdered By: SYSTEM SYSTEM on 08-09-2021 GFR 72 ml/min/1.73sqm Invalid Interpretation Code AO Chemistry S GFR Non- 60 ml/min/1.73sqm Invalid Interpretation Code AO Chemistry S GFR 68 ml/min/1.73sqm Invalid Interpretation Code AO Chemistry S GFR Non- 56 ml/min/1.73sqm Invalid Interpretation Code AO Chemistry S LABORATORYOrdered By: Lucrecia Jon on 08-09-2021 Fibrin D-dimer DDU (PPP) [Mass/Vol] 535 ng/mL D-DU Invalid Interpretation Code 0 - 230 ng/mL D-DU AO Coag SS ADMITTED TO INTENSIVE CARE UNIT FOR CONDITION OF INTEREST:FIND:PT:^PATIE NT:ORD: No (08/09/21 1:40 AM) Invalid Interpretation Code AO Auto Urine SS Albumin BCP dye [Mass/Vol] 3.4 G/dL Invalid Interpretation Code 3.5 - 5.0 G/dL AO ADM SS Albumin/Globulin [Mass ratio] 0.9 {ratio} Invalid Interpretation Code 1.1 - 2.5 ratio AO ADM SS ALP [Catalytic activity/Vol] 98 U/L Invalid Interpretation Code 40 - 135 U/L AO ADM SS ALT With P-5'-P [Catalytic activity/Vol] 29 U/L Invalid Interpretation Code 14 - 59 U/L AO ADM SS Appearance (U) Clear (08/09/21 1:40 AM) Invalid Interpretation Code Clear AO Auto Urine SS AST With P-5'-P [Catalytic activity/Vol] 25 U/L Invalid Interpretation Code 10 - 40 U/L AO ADM SS Bacteria LM.HPF (Urine sed) [#/Area] Trace /HPF Invalid Interpretation Code AO Auto Urine SS Basophil, Absolute 0.10 103/mcL Invalid Interpretation Code 0.00 - 0.19 10^3/mcL AO Auto Heme SS Basophils/100 WBC (Bld) 1.1 % Invalid Interpretation Code 0.0 - 2.5 % AO Auto Heme SS Bilirubin [Mass/Vol] 1.2 mg/dL Invalid Interpretation Code 0.2 - 1.0 mg/dL AO ADM SS Bilirubin Ql (U) Small *ABN* (08/09/21 1:40 AM) Invalid Interpretation Code Negative AO Auto Urine SS Calcium [Mass/Vol] 8.9 mg/dL Invalid Interpretation Code 8.4 - 10.2 mg/dL AO ADM SS Chloride [Moles/Vol] 103 mmol/L Invalid Interpretation Code 98 - 107 mmol/L AO ADM SS CO2 [Moles/Vol] 26 mmol/L Invalid Interpretation Code 22 - 29 mmol/L AO ADM SS Color (U) Dark yellow Invalid Interpretation Code AO Auto Urine SS Creatinine [Mass/Vol] 1.05 mg/dL Invalid Interpretation Code 0.55 - 1.02 mg/dL AO ADM SS Electrolyte Balance 10.0 mEq/L Invalid Interpretation Code AO ADM SS EMPLOYED IN A HEALTHCARE SETTING:FIND:PT:^GELY T:ORD: No (08/09/21 1:40 AM) Invalid Interpretation Code AO Auto Urine SS Eosinophil, Absolute 0.10 103/mcL Invalid Interpretation Code 0.00 - 0.40 10^3/mcL AO Auto Heme SS Eosinophils/100 WBC (Bld) 0.8 % Invalid Interpretation Code 0.0 - 7.0 % AO Auto Heme SS Erythrocyte distribution width (RBC) [Ratio] 16.4 % Invalid Interpretation Code 11.5 - 14.5 % AO Auto Heme SS FIRST TEST FOR CONDITION OF INTEREST:FIND:PT:^DOUG NT:ORD: No (08/09/21 1:40 AM) Invalid Interpretation Code AO Auto Urine SS Globulin 3.9 G/dL Invalid Interpretation Code AO ADM SS Glucose [Mass/Vol] 281 mg/dL Invalid Interpretation Code 70 - 105 mg/dL AO ADM SS Glucose Test strip (U) [Mass/Vol] 100 mg/dL Invalid Interpretation Code Negativemg/d L AO Auto Urine SS HAS SYMPTOMS RELATED TO CONDITION OF INTEREST:FIND:PT:^DOUG NT:ORD: Yes (08/09/21 1:40 AM) Invalid Interpretation Code AO Auto Urine SS HCG ( test) Ql Negative (08/09/21 1:40 AM) Invalid Interpretation Code AO Manual Urine SS Hematocrit (Bld) [Volume fraction] 43.2 % Invalid Interpretation Code 37.0 - 47.0 % AO Auto Heme SS Hemoglobin (Bld) [Mass/Vol] 14.2 G/dL Invalid Interpretation Code 12.0 - 16.0 G/dL AO Auto Heme SS Hemoglobin Auto test strip (U) [Mass/Vol] Trace *ABN* (08/09/21 1:40 AM) Invalid Interpretation Code Negative AO Auto Urine SS Illness or injury onset date and time [id number] Invalid Interpretation Code AO Auto Urine SS Ketones Ql (U) Negative Invalid Interpretation Code Negativemg/d L AO Auto Urine SS Lipase [Catalytic activity/Vol] 181 U/L Invalid Interpretation Code 73 - 393 U/L AO ADM SS Lymphocyte, Absolute 3.20 103/mcL Invalid Interpretation Code 0.77 - 3.85 10^3/mcL AO Auto Heme SS Lymphocytes/100 WBC (Bld) 27.0 % Invalid Interpretation Code 10.0 - 50.0 % AO Auto Heme SS MCH (RBC) [Entitic mass] 29.8 pg Invalid Interpretation Code 27.0 - 31.2 pg AO Auto Heme SS MCHC (RBC) [Mass/Vol] 32.9 G/dL Invalid Interpretation Code 33.0 - 37.0 G/dL AO Auto Heme SS MCV (RBC) [Entitic vol] 90.6 fL Invalid Interpretation Code 80.0 - 94.0 fL AO Auto Heme SS Monocyte, Absolute 0.90 103/mcL Invalid Interpretation Code 0.15 - 1.00 10^3/mcL AO Auto Heme SS Monocytes/100 WBC (Bld) 7.4 % Invalid Interpretation Code 1.7 - 13.0 % AO Auto Heme SS Natriuretic peptide.B prohormone N-Terminal [Mass/Vol] 7070 pg/mL Invalid Interpretation Code 0 - 125 pg/mL AO ADM SS Neutrophil, Absolute 7.60 103/mcL Invalid Interpretation Code 2.85 - 6.16 10^3/mcL AO Auto Heme SS Neutrophils/100 WBC (Bld) 63.7 % Invalid Interpretation Code 37.0 - 80.0 % AO Auto Heme SS Patient was hospitalized because of this condition No (08/09/21 1:40 AM) Invalid Interpretation Code AO Auto Urine SS Platelet mean volume (Bld) [Entitic vol] 10.8 fL Invalid Interpretation Code 7.4 - 10.4 fL AO Auto Heme SS Platelets (Bld) [#/Vol] 232 103/mcL Invalid Interpretation Code 130 - 400 10^3/mcL AO Auto Heme SS Potassium [Moles/Vol] 4.4 mmol/L Invalid Interpretation Code 3.5 - 5.1 mmol/L AO ADM SS status Not (08/09/21 1:40 AM) Invalid Interpretation Code AO Auto Urine SS test (u) int Not detected Invalid Interpretation Code AO Manual Urine SS Protein [Mass/Vol] 7.3 G/dL Invalid Interpretation Code 6.4 - 8.2 G/dL AO ADM SS RBC (Bld) [#/Vol] 4.76 106/mcL Invalid Interpretation Code 4.20 - 5.40 10^6/mcL AO Auto Heme SS RESIDES IN A CONGREGATE CARE SETTING:FIND:PT:^PATIEN T:ORD: No (08/09/21 1:40 AM) Invalid Interpretation Code AO Auto Urine SS SARS-CoV-2 (COVID-19) RNA SHAI+probe Ql (Resp) Negative (08/09/21 1:40 AM) Invalid Interpretation Code Negative AO Auto Urine SS SARS-CoV-2 (COVID-19) RNA SHAI+probe Ql (Unsp spec) Negative results do not preclude SARS-CoV-2 infection and should not be used as the sole basis for patient management decisions. Negative results must be combined with clinical observations, patient history, and epidemiological information.There is a risk of false negative values resulting from improperly collected, transported, or handled specimens.There is a risk of false negative values due to the presence of sequence variants in the pathogen targets of the assay, procedural errors, amplification inhibitors in specimens, or inadequate numbers of organisms for amplification.MATHEUS SARS-CoV-2 Assay is a Real-Time reverse-transcriptas e polymerase chain reaction (RT-PCR) based qualitative in vitro diagnostic test intended for the qualitative detection of nucleic acid from the SARS-CoV-2 in nasopharyngeal swab specimens collected from individuals suspected of COVID-19 by their healthcare provider. Testing is limited to laboratories certified under the Clinical Laboratory Improvement Amendments of 1988 (CLIA), 42 U.S.C. 263a, to perform moderate and high complexity tests. Invalid Interpretation Code AO Auto Urine SS Sodium [Moles/Vol] 139 mmol/L Invalid Interpretation Code 136 - 145 mmol/L AO ADM SS Troponin I.cardiac DL <= 0.01 ng/mL [Mass/Vol] 56.2 ng/L Invalid Interpretation Code 0.0 - 51.4 ng/L AO ADM SS UA Leuk Est Trace *ABN* (08/09/21 1:40 AM) Invalid Interpretation Code Negative AO Auto Urine SS UA Nitrite Negative (08/09/21 1:40 AM) Invalid Interpretation Code Negative AO Auto Urine SS UA pH 5.5 (08/09/21 1:40 AM) Invalid Interpretation Code 5.0 - 8.0 AO Auto Urine SS UA Protein >=300 mg/dL Invalid Interpretation Code Negativemg/d L AO Auto Urine SS UA RBC None Seen /HPF Invalid Interpretation Code None Seen/HPF AO Auto Urine SS UA Spec Grav >=1.030 *ABN* (08/09/21 1:40 AM) Invalid Interpretation Code 1.015-1.025 AO Auto Urine SS UA Specimen Type Clean Catch (08/09/21 1:40 AM) Invalid Interpretation Code AO Auto Urine SS UA Squam Epithelial 0-5 /HPF Invalid Interpretation Code None Seen/HPF AO Auto Urine SS UA Urobilinogen 1.0 E.U./dL Invalid Interpretation Code 0.2-1.0E.U./ dL AO Auto Urine SS Urea nitrogen [Mass/Vol] 13 mg/dL Invalid Interpretation Code 7 - 18 mg/dL AO ADM SS Urea nitrogen/Creatinine [Mass ratio] 12 ratio Invalid Interpretation Code 7 - 27 ratio AO ADM SS WBC (Bld) [#/Vol] 11.90 103/mcL Invalid Interpretation Code 4.60 - 10.80 10^3/mcL AO Auto Heme SS WBC LM.HPF (Urine sed) [#/Area] 10-15 /HPF Invalid Interpretation Code None Seen/HPF AO Auto Urine SS LIPon 08-09-2021 Lipase Level 181 U/L Normal 73-393 [facility] ([place]) Comment on above: Performed By: #### C BC, ADIFF, ANEU, LIP, CMP, GFR, PBNP, TROPHS #### [place] [address] [place], [place] [address] PBNPon 08-09-2021 Natriuretic peptide B (Bld) [Mass/Vol] 7070 pg/mL High 0-125 [facility] ([place] Comment on above: Result Comment: NT-p roBNP results of less than 300 pg/mL effectively rules out acute congestive heart failure with 99% negative predictive value. Performed By: #### C BC, ADIFF, ANEU, LIP, CMP, GFR, PBNP, TROPHS #### [place] [address] PREGUon 08-09-2021 HCG ( test) Ql (U) Negative Normal [facility] ([place] Comment on above: Performed By: #### U A, PREGU, UAMICAO #### [place] [address] test (u) int Not detected Invalid Interpretation Code [facility] ([place] Comment on above: Performed By: #### U A, PREGU, UAMICAO #### [place] [address] TROPHSon 08-09-2021 Troponin I High Sensitivity 55.7 ng/L High 0.0-51.4 [facility] ([place] Comment on above: Performed By: #### C BC, ADIFF, ANEU, LIP, CMP, GFR, PBNP, TROPHS #### [place] [address] Troponin I High Sensitivity 53.7 ng/L High 0.0-51.4 [facility] ([place] Comment on above: Performed By: #### C BC, ADIFF, ANEU, LIP, CMP, GFR, PBNP, TROPHS #### [place] [address] Troponin I High Sensitivity 56.2 ng/L High 0.0-51.4 [facility] ([place] Comment on above: Performed By: #### C BC, ADIFF, ANEU, LIP, CMP, GFR, PBNP, TROPHS #### [place] [address] UAon 08-09-2021 Color (U) Dark yellow Normal [facility] ([place] Comment on above: Performed By: #### U A, PREGU, UAMICAO #### [place] [address] Glucose (U) [Mass/Vol] 100 mg/dL Abnormal Negative [facility] ([place]) Comment on above: Performed By: #### U A, PREGU, UAMICAO #### [place] [address] Ketones Ql (U) Negative Normal Negative [facility] ([place] Comment on above: Performed By: #### U A, PREGU, UAMICAO #### [place] [address] UA Appear Clear Normal Clear [facility] [place] Comment on above: Performed By: #### U A, PREGU, UAMICAO #### [place] [address] UA Bili Small Abnormal Negative [facility] [place]) Comment on above: Performed By: #### U A, PREGU, UAMICAO #### [address] [address] UA Blood Trace Abnormal Negative [facility] [place] Comment on above: Performed By: #### U A, PREGU, UAMICAO #### [place] [id number] UA Leuk Est Trace Abnormal Negative [facility] [place] Comment on above: Performed By: #### U A, PREGU, UAMICAO #### [address] [address] UA Nitrite Negative Normal Negative [facility] [place] Comment on above: Performed By: #### U A, PREGU, UAMICAO #### [place] [id number] UA pH 5.5 Normal 5.0 - 8.0 [facility] [place] Comment on above: Performed By: #### U A, PREGU, UAMICAO #### [place] [address] UA Protein >=300 Abnormal Negative [facility] [place] Comment on above: Performed By: #### U A PREGU UAMICAO #### [address] [address] UA Spec Grav >=1.030 Abnormal 1.015-1.025 [facility] [place] Comment on above: Performed By: #### U A PREGU UAMICAO #### [address] [address] UA Specimen Type Clean Catch Normal [facility] [place] Comment on above: Performed By: #### U A PREGU, UAMICAO #### [address] [address] UA Urobilinogen 1.0 E.U./dL Normal 0.2-1.0 [facility] [place] Comment on above: Performed By: #### U A PREGU UAMICAO #### [address] [address] XR CHEST 1 VIEWon 08-09-2021 XR CHEST 1 VIEW ORIGINAL EXAMINATION: ONE XRAY VIEW OF THE CHEST 08/09/2021 2:15 am COMPARISON: None. HISTORY: ORDERING SYSTEM PROVIDED HISTORY: Reason for Exam: chest pain FINDINGS: The heart size is at the upper limits of normal. There is no lung infiltrate or edema. No pneumothorax or pleural fluid is present. The skeletal structures are unremarkable. IMPRESSION: No acute radiographic abnormality of the chest. Interpreted by: Jeremy Polk MD Preliminary Report By: Jeremy Polk MD Electronically signed By Jeremy Polk MD Dictated Date: 08/09/2021 2:19:48 AM Prelim Date: 08/09/2021 2:20:26 AM Sign Date: 08/09/2021 2:20:26 AM Ordering Provider: [facility] ([place]) Vital Signs Date Time Vital Sign Value Performing Clinician Dayron craevn 07-14-2025 12:05-0400 Diastolic blood pressure 75 mm[Hg] Unique Hammond MD Work Phone: [facility] 07-14-2025 12:05-0400 Heart rate 83 /min Unique Hammond MD Work Phone: [facility] 07-14-2025 12:05-0400 Respiratory rate 20 /min Unique Hammond MD Work Phone: [facility] 07-14-2025 12:05-0400 SaO2% (BldA) [Mass fraction] 96 % Unique Hammond MD Work Phone: [facility] 07-14-2025 12:05-0400 Systolic blood pressure 155 mm[Hg] Unique Hammond MD Work Phone: [facility] 07-14-2025 10:15-0400 Body temperature 97.9 [degF] Unique Hammond MD Work Phone: [facility] 07-14-2025 10:00-0400 Body height 160 cm Unique Hammond MD Work Phone: [facility] 07-14-2025 10:00-0400 Body mass index (BMI) [Ratio] 34.01 kg/m2 Unique Hammond MD Work Phone: [facility] 07-14-2025 10:00-0400 Body weight 87.09 kg Unique Hammond MD Work Phone: [facility] 07-09-2025 12:26-0400 Body temperature 97.8 [degF] Luz Martinezach WALL CLEANER[employer]C Work Phone: [facility] 07-09-2025 12:26-0400 Diastolic blood pressure 78 mm[Hg] Luz Mcdermott W[employer] CLE[employer]ER[employer]C Work Phone: [facility] 07-09-2025 12:26-0400 Heart rate 64 /min Luz Samaria W[employer] CLE[employer]ER[employer]C Work Phone: [facility] 07-09-2025 12:26-0400 Respiratory rate 18 /min Luz Mcdermott W[employer] CLE[employer]C Work Phone: [facility] 07-09-2025 12:26-0400 SaO2% (BldA) [Mass fraction] 99 % Luz Mcdermott WALL CLE[employer]ER[employer]C Work Phone: [facility] 07-09-2025 12:26-0400 Systolic blood pressure 134 mm[Hg] Luz Mcdermott WALL CLE[employer]ER[employer]C Work Phone: [facility] 07-09-2025 09:02-0400 Body height 160.02 cm Luz Mcdermott WALL CLE[employer]ER[employer]C Work Phone: [facility] 07-09-2025 09:02-0400 Body mass index (BMI) [Ratio] 35.3 kg/m2 Luz Mcdermott WALL CLE[employer]ER[employer]C Work Phone: [facility] 07-09-2025 09:02-0400 Body weight 90.4 kg Luz Mdcermott WALL CLE[employer]ER-C Work Phone: [facility] 04-02-2024 07:12-0400 Body temperature 98.4 [degF] Mateusz Ruff MD Work Phone: [employer] 04-02-2024 07:12-0400 Diastolic blood pressure 73 mm[Hg] Mateusz Ruff MD Work Phone: [employer] [facility] 04-02-2024 07:12-0400 Heart rate 60 /min Mateusz Ruff MD Work Phone: [facility] 04-02-2024 07:12-0400 Respiratory rate 17 /min Mateusz Ruff MD Work Phone: [facility] 04-02-2024 07:12-0400 SaO2% (BldA) [Mass fraction] 99 % Mateusz Ruff MD Work Phone: [facility] 04-02-2024 07:12-0400 Systolic blood pressure 149 mm[Hg] Mateusz Ruff MD Work Phone: [facility] 04-01-2024 10:21-0400 Body height 162.6 cm Mateusz Ruff MD Work Phone: [employer] [facility] 04-01-2024 10:21-0400 Body mass index (BMI) [Ratio] 40.68 kg/m2 Mateusz Ruff MD Work Phone: [facility] [employer] 04-01-2024 10:21-0400 Body weight 107.5 kg Mateusz Ruff MD Work Phone: [facility] [employer] 03-27-2024 15:33-0400 Body temperature 97.2 [degF] [facility] 03-27-2024 15:33-0400 Diastolic blood pressure 79 mm[Hg] [facility] 03-27-2024 15:33-0400 Heart rate 83 /min Jase Olsono DO Work Phone: [facility] [employer] 03-27-2024 15:33-0400 Respiratory rate 18 /min Jase Olsono DO Work Phone: [facility] [employer] 03-27-2024 15:33-0400 SaO2% (BldA) [Mass fraction] 95 % Jase Olsono DO [facility] 03-27-2024 15:33-0400 Systolic blood pressure 143 mm[Hg] Jase Olsono DO Work Phone: [facility] [employer] 03-27-2024 03:42-0400 Body mass index (BMI) [Ratio] 36.43 kg/m2 Jase Olsono DO [facility] 03-27-2024 03:42-0400 Body weight 90.36 kg Jase Olsono DO Work Phone: [facility] [employer] 03-18-2024 12:33-0400 Body height 157.5 cm Jase Olsono DO Work Phone: [facility] 09-16-2023 07:39-0500 Diastolic blood pressure 96 mm[Hg] [facility] 09-16-2023 07:39-0500 Heart rate 97 /min [facility] 09-16-2023 07:39-0500 Systolic blood pressure 166 mm[Hg] [facility] 09-16-2023 05:48-0500 Body temperature 96.6 [degF] [facility] 09-16-2023 05:48-0500 Respiratory rate 18 /min [facility] 09-16-2023 05:48-0500 SaO2% (BldA) [Mass fraction] 98 % [facility] 09-16-2023 05:46-0500 Body height 160.[address] [facility] 09-16-2023 05:46-0500 Body mass index (BMI) [Ratio] 38.5 kg/m2 [facility] 09-16-2023 05:46-0500 Body weight 98.[address] [facility] 09-14-2023 03:13-0500 Diastolic blood pressure 113 mm[Hg] [facility] 09-14-2023 03:13-0500 Heart rate 108 /min [facility] 09-14-2023 03:13-0500 Respiratory rate 15 /min [facility] 09-14-2023 03:13-0500 SaO2% (BldA) [Mass fraction] 96 % [facility] 09-14-2023 03:13-0500 Systolic blood pressure 198 mm[Hg] [facility] 09-14-2023 01:45-0500 Body mass index (BMI) [Ratio] 37.8 kg/m2 [facility] 09-14-2023 01:45-0500 Body temperature 96.7 [degF] [facility] 09-14-2023 01:45-0500 Body weight 100.[address] [facility] 04-05-2022 21:53-0400 Body temperature 97.7 [degF] Simpson MD Work Phone: [facility] 04-05-2022 21:53-0400 Diastolic blood pressure 73 mm[Hg] Simpson MD Work Phone: [facility] 04-05-2022 21:53-0400 Heart rate 74 /min Simpson MD Work Phone: [facility] 04-05-2022 21:53-0400 Respiratory rate 18 /min Simpson MD Work Phone: [facility] 04-05-2022 21:53-0400 SaO2% (BldA) [Mass fraction] 93 % Simpson MD Work Phone: [facility] 04-05-2022 21:53-0400 Systolic blood pressure 139 mm[Hg] Simpson MD Work Phone: [facility] 04-05-2022 05:45-0400 Body mass index (BMI) [Ratio] 37.02 kg/m2 Simpson MD Work Phone: [facility] 04-05-2022 05:45-0400 Body weight 94.8 kg Simpson MD Work Phone: [facility] 04-03-2022 05:13-0400 Body height 160 cm Simpson MD Work Phone: [facility] 08-13-2021 12:34-0500 Body temperature 98.06 [degF] DR YAMILETH NOVOA MD [facility] 08-13-2021 12:34-0500 Diastolic blood pressure 82 mm[Hg] DR YAMILETH NOVOA MD [facility] 08-13-2021 12:34-0500 Heart rate 67 /min DR YAMILETH NOVOA MD [facility] 08-13-2021 12:34-0500 Mean blood pressure 98 mm[Hg] DR YAMILETH NOVOA MD [facility] 08-13-2021 12:34-0500 Respiratory rate 18 /min DR YAMILETH NOVOA MD [facility] 08-13-2021 12:34-0500 Systolic blood pressure 130 mm[Hg] DR YAMILETH NOVOA MD [address] [place] [address] 08-13-2021 08:22-0500 Diastolic blood pressure 94 mm[Hg] DR YAMILETH NOVOA MD [address] [place] [address] 08-13-2021 08:22-0500 Heart rate 80 /min DR YAMILETH NOVOA MD [address] [place] [address] 08-13-2021 08:22-0500 Mean blood pressure 113 mm[Hg] DR YAMILETH NOVOA MD [address] [place] [address] 08-13-2021 08:22-0500 Respiratory rate 18 /min DR YAMILETH NOVOA MD [facility] 08-13-2021 08:22-0500 Systolic blood pressure 150 mm[Hg] DR YAMILETH NOVOA MD [facility] 08-13-2021 05:35-0500 Body temperature 98.42 [degF] DR YAMILETH NOVOA MD [facility] 08-13-2021 05:35-0500 Diastolic blood pressure 76 mm[Hg] DR YAMILETH NOVOA MD [facility] 08-13-2021 05:35-0500 Heart rate 82 /min DR YAMILETH NOVOA MD [address] [place] [address] 08-13-2021 05:35-0500 Mean blood pressure 96 mm[Hg] DR YAMILETH NOVOA MD [facility] 08-13-2021 05:35-0500 Respiratory rate 18 /min DR YAMILETH NOVOA MD [facility] 08-13-2021 05:35-0500 Systolic blood pressure 136 mm[Hg] DR YAMILETH NOVOA MD [facility] 08-12-2021 22:26-0500 Body temperature 98.42 [degF] DR YAMILETH NOVOA MD [facility] 08-12-2021 18:14-0500 Body temperature 98.6 [degF] DR YAMILETH NOVOA MD [facility] 08-12-2021 02:49-0500 Reason For Taking VItal Signs DR YAMILETH NOVOA MD [facility] 08-11-2021 22:31-0500 Heart rate 86 /min DR YAMILETH NOVOA MD [facility] 08-11-2021 19:33-0500 Reason For Taking VItal Signs DR YAMILETH NOVOA MD [facility] 08-11-2021 19:16-0500 Reason For Taking VItal Signs DR YAMILETH NOVOA MD [facility] 08-11-2021 10:08-0500 SaO2% (BldA) [Mass fraction] 89.2 % DR YAMILETH NOVOA MD [employer] [facility] 08-10-2021 23:05-0500 Heart rate 99 /min DR YAMILETH NOVOA MD [facility] 08-10-2021 19:43-0500 Heart rate 103 /min DR YAMILETH NOVOA MD [facility] 08-10-2021 11:46-0500 Body height [address] YAMILETH NOVOA MD [facility] 08-10-2021 11:46-0500 Body weight [address] YAMILETH NOVOA MD [facility] 08-10-2021 11:46-0500 Body weight 41.02 kg/m2 DR YAMILETH NOOVA MD [facility] 08-10-2021 10:16-0500 Diastolic blood pressure 96 mm[Hg] MARTA SERGIO [employer]ELECTRICAL CAD DESIGNER [facility] 08-10-2021 10:16-0500 Heart rate 80 /min MARTA SERGIO [employer] DES[employer] [facility] 08-10-2021 10:16-0500 Respiratory rate 20 /min MARTA SERGIO [employer] DES[employer] [facility] 08-10-2021 10:16-0500 Systolic blood pressure 152 mm[Hg] MARTA SERGIO [employer]RICAL [employer] DESIGNER [facility] 08-10-2021 08:19-0500 Body temperature 98.6 [degF] MARTA SERGIO [employer]ELECTRICAL [employer] DESIGNER [facility] 08-10-2021 08:19-0500 Diastolic blood pressure 93 mm[Hg] MARTA HILL PO[employer]ER[employer]ELECTRICAL CAD DESIGNER [facility] 08-10-2021 08:19-0500 Heart rate 104 /min MARTA HILL [employer]ICAL [employer] DES[employer] [facility] 08-10-2021 08:19-0500 Mean blood pressure 121 mm[Hg] MARTA HILL [employer]ICAL [employer] DES[employer] [facility] 08-10-2021 08:19-0500 Reason For Taking VItal Signs MARTA HILL [employer]ICAL [employer] DESIGN[employer] [facility] 08-10-2021 08:19-0500 Respiratory rate 20 /min MARTA HILL [employer]ICAL [employer] DES[employer] [facility] 08-10-2021 08:19-0500 Systolic blood pressure 176 mm[Hg] MARTA HILL [employer]ICAL [employer] DES[employer] [facility] 08-10-2021 04:00-0500 Body temperature 98.24 [degF] MARTA HILL [employer]RICAL [employer] DESIGNER [facility] 08-10-2021 04:00-0500 Diastolic blood pressure 112 mm[Hg] MARTA REAELY [employer]LECTRICAL [employer] DESIGNER [facility] 08-10-2021 04:00-0500 Heart rate 78 /min MARTA REAELY [employer]ICAL [employer] DES[employer] [facility] 08-10-2021 04:00-0500 Mean blood pressure 135 mm[Hg] MARTA HILL [employer]ICAL [employer] DES[employer] [facility] 08-10-2021 04:00-0500 Reason For Taking VItal Signs MARTA HILL [employer]ICAL [employer] DESIGN[employer] [facility] 08-10-2021 04:00-0500 Systolic blood pressure 181 mm[Hg] MARTA HILL [employer]ICAL [employer] DES[employer] [facility] 08-10-2021 00:18-0500 Body temperature 98.24 [degF] MARTA HILL [employer]RICAL [employer] DESIGNER [facility] 08-10-2021 00:18-0500 Mean blood pressure 122 mm[Hg] MARTA HILL [employer]ICAL [employer] DESIGNER [facility] 08-10-2021 00:18-0500 Reason For Taking VItal Signs MARTA HILL [employer]ICAL [employer] DESIGNER [facility] 08-09-2021 05:42-0500 Body height 160 cm MARTA HILL [employer]ICAL [employer] DESIGNER [facility] 08-09-2021 05:42-0500 Body weight 105 kg MARTA HILL [employer]ICAL [employer] DES[employer]ER [facility] 08-09-2021 05:42-0500 Body weight 41.02 kg/m2 MARTA HILL [employer]ICAL [employer] DES[employer] [facility] 08-09-2021 01:55-0500 Heart rate 90 /min MARTA HILL [employer]ICAL [employer] DES[employer] [facility] 08-09-2021 01:49-0500 Heart rate 124 /min MARTA REAELY [employer]RICAL [employer] DESIGNER [facility] 08-09-2021 01:33-0500 Body height 160 cm MARTA HILL [employer]ICAL [employer] DES[employer]ER [facility] 08-09-2021 01:33-0500 Body weight 104.5 kg MARTA HILL [employer]ICAL [employer] DES[employer] [facility] 08-09-2021 01:33-0500 Heart rate 124 /min MARTA HILL [employer] DES[employer] [facility] Encounters Encounter Date Encounter Type Care Provider Facility Start: 07-23-2025 End: 07-23-2025 Emergency department patient visit Luz Mcdermott Facility:[facility] Start: 07-14-2025 End: 07-14-2025 ambulatory LUZ [facility] Start: 07-14-2025 End: 07-14-2025 Subsequent hospital visit by physician Rima Hammond MD Work Phone: [facility] [place] Comment on above: Colon cancer screeni ng Start: 07-09-2025 End: 07-09-2025 Emergency department patient visit Dr. Peter Thompson DO -Emergency Department Work Phone: Start: 07-01-2025 End: 07-01-2025 ambulatory LUZ MCDERMOTT [facility] Start: 06-30-2025 End: 07-02-2025 ambulatory [facility] Start: 05-27-2025 End: 05-27-2025 ambulatory [facility] Start: 05-27-2025 End: 05-27-2025 Subsequent hospital visit by physician [facility] Comment on above: Encounter for loop r ecorder check (Primary Dx) Start: 04-22-2025 End: 04-22-2025 ambulatory [facility] Start: 04-22-2025 End: 04-22-2025 Subsequent hospital visit by physician [facility] Comment on above: Arrived Start: 03-18-2025 End: 03-18-2025 ambulatory [facility] Start: 03-18-2025 End: 03-18-2025 Subsequent hospital visit by physician [facility] Comment on above: Arrived Start: 02-11-2025 End: 02-11-2025 ambulatory [facility] Start: 02-11-2025 End: 02-11-2025 Subsequent hospital visit by physician [facility] Comment on above: Arrived Start: 01-20-2025 End: 01-20-2025 ambulatory BAIRON BUCHANAN Facility:[facility] Start: 01-07-2025 End: 01-07-2025 ambulatory [facility] Start: 01-07-2025 End: 01-07-2025 Subsequent hospital visit by physician [facility] Comment on above: Arrived Start: 12-03-2024 End: 12-03-2024 ambulatory [facility] Start: 12-03-2024 End: 12-03-2024 Subsequent hospital visit by physician [facility] Comment on above: Arrived Start: 11-02-2024 End: 11-02-2024 Emergency department patient visit Maximo Wayne Facility:[facility] Start: 10-29-2024 End: 10-29-2024 ambulatory [facility] Start: 10-29-2024 End: 10-29-2024 Subsequent hospital visit by physician [facility] Comment on above: Arrived Start: 08-20-2024 End: 08-20-2024 ambulatory FARA SOTO [facility] Start: 08-20-2024 End: 08-20-2024 Subsequent hospital visit by physician [facility] Start: 08-08-2024 End: 08-08-2024 Emergency department patient visit No Primary Care Physician Facility:[facility] Start: 06-11-2024 End: 06-11-2024 Subsequent hospital visit by physician Connor [facility] Comment on above: Arrived Start: 03-29-2024 End: 04-02-2024 Evaluation and management of inpatient Mateusz Ruff MD Work Phone: [facility] 2W Ortho Tele Comment on above: Sepsis secondary to UTI (HCC) (Primary Dx); Acute nonintractable headache, unspecified headache type; Cerebrovascular accident (CVA), unspecified mechanism (HCC); History of non-ST elevation myocardial infarction (NSTEMI); Cerebral infarction due to posterior cerebral artery occlusion, unspecified blood vessel laterality (HCC); Systolic congestive heart failure, unspecified HF chronicity (HCC); 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-Emergency Department Work Phone: Start: 09-14-2023 End: 09-14-2023 Emergency department patient visit 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); Near syncope; H/O noncompliance with medical treatment, presenting hazards to health; Tobacco dependence Start: 08-10-2021 End: 08-13-2021 Evaluation and management of inpatient DR YAMILETH NOVOA MD [facility] Start: 08-09-2021 End: 08-10-2021 Evaluation and management of inpatient MARTA HILL POISER[employer]ELECTRICAL CAD DESIGNER [facility] Procedures Date Procedure Procedure Detail Performing Clinician Start: 07-14-2025 End: 07-14-2025 Colonoscopy Rima Hammond MD Work Phone: Start: 07-14-2025 Gluc bld gluc mntr dev cleared fda spec home use Unknown Provider Result Start: 07-09-2025 Urnls dip stick/tablet reagent auto microscopy Luz Mcdermott WALL CLEANER[employer]C Work Phone: Start: 07-09-2025 CT of head without contrast Luz Mcdermott WALL CLE[employer]ER[employer]C Work Phone: Start: 07-09-2025 Estimated creatinine clearance Luz Mcdermott WALL CLEANER[employer]C Work Phone: Start: 04-02-2024 Gluc bld gluc mntr dev cleared fda spec home use Unknown Provider Result Start: 04-02-2024 Rhythm ecg 1-3 leads w/interpretation & report Unknown Provider Result Start: 04-02-2024 Gluc bld gluc mntr dev cleared fda spec home use Unknown Provider Result Start: 04-02-2024 Basic metabolic 2000 panel - Serum or Plasma Sal Jalloh DO Work Phone: Start: 04-02-2024 Blood count complete auto&auto difrntl wbc Sal Jalloh DO Work Phone: Start: 04-02-2024 Rhythm ecg 1-3 leads w/interpretation & report Unknown Provider Result Start: 04-01-2024 Gluc bld gluc mntr dev cleared fda spec home use Unknown Provider Result Start: 04-01-2024 Gluc bld gluc mntr dev cleared fda spec home use Unknown Provider Result Start: 04-01-2024 ELECTROPHYSIOLOGY PROCEDURE Fara hill DO Work Phone: Start: 04-01-2024 Percutaneous coronary intervention Fara Soto DO Work Phone: Start: 04-01-2024 Echo transesophag r-t 2d w/prb img acquisj i&r Kamron Cool MD Work Phone: Start: 04-01-2024 Rhythm ecg 1-3 leads w/interpretation & report Unknown Provider Result Start: 04-01-2024 Gluc bld gluc mntr dev cleared fda spec home use Unknown Provider Result Start: 04-01-2024 Rhythm ecg 1-3 leads w/interpretation & report Unknown Provider Result Start: 03-31-2024 Gluc bld gluc mntr dev cleared fda spec home use Unknown Provider Result Start: 03-31-2024 Gluc bld gluc mntr dev cleared fda spec home use Unknown Provider Result Start: 03-31-2024 Rhythm ecg 1-3 leads w/interpretation & report Unknown Provider Result Start: 03-31-2024 Gluc bld gluc mntr dev cleared fda spec home use Unknown Provider Result Start: 03-31-2024 Rhythm ecg 1-3 leads w/interpretation & report Unknown Provider Result Start: 03-31-2024 End: 03-31-2024 Basic metabolic panel calcium total Mateusz Ruff MD Work Phone: Start: 03-31-2024 Gluc bld gluc mntr dev cleared fda spec home use Unknown Provider Result Start: 03-31-2024 Ct head/brain w/o contrast material Kamron Cool MD Work Phone: Start: 03-31-2024 Gluc bld gluc mntr dev cleared fda spec home use Unknown Provider Result Start: 03-31-2024 Rhythm ecg 1-3 leads w/interpretation & report Unknown Provider Result Start: 03-30-2024 Gluc bld gluc mntr dev cleared fda spec home use Unknown Provider Result Start: 03-30-2024 Gluc bld gluc mntr dev cleared fda spec home use Unknown Provider Result Start: 03-30-2024 Us retroperitoneal real time w/image limited Quiuqe Nugent MD Work Phone: Start: 03-30-2024 Rhythm ecg 1-3 leads w/interpretation & report Unknown Provider Result Start: 03-30-2024 Gluc bld gluc mntr dev cleared fda spec home use Unknown Provider Result Start: 03-30-2024 End: 03-30-2024 Mra head w/o contrst material Kamron Cool MD Work Phone: Start: 03-30-2024 End: 03-30-2024 Rhythm ecg 1-3 leads w/interpretation & report Unknown Provider Result Start: 03-30-2024 Gluc bld gluc mntr dev cleared fda spec home use Unknown Provider Result Start: 03-30-2024 Lipid panel Quique Nugent MD Work Phone: Start: 03-30-2024 MPO/AZ-3(ANCA) ABS Kamron Cool MD Work Phone: Start: 03-30-2024 Thromboplastin inhibition tissue Kamron Cool MD Work Phone: Start: 03-30-2024 Rhythm ecg 1-3 leads w/interpretation & report Unknown Provider Result Start: 03-29-2024 Acute hepatitis panel Quique Nugent MD Work Phone: Start: 03-29-2024 Assay of troponin quantitative Fara Soto DO Work Phone: Start: 03-29-2024 Gluc bld gluc mntr dev cleared fda spec home use Unknown Provider Result Start: 03-29-2024 Gluc bld gluc mntr dev cleared fda spec home use Unknown Provider Result Start: 03-29-2024 Ecg routine ecg w/least 12 lds w/i&r Fara Soto DO Work Phone: Start: 03-29-2024 End: 03-29-2024 Basic metabolic panel calcium total Quique Nugent MD Work Phone: Start: 03-29-2024 CARDIOLIPIN ANTIBODIES IGG & IGM Kamron Cool MD Work Phone: Start: 03-29-2024 Echo tthrc r-t 2d w/wom-mode compl spec&colr d Quique Nugent MD Work Phone: Start: 03-29-2024 End: 03-29-2024 Hemoglobin glycosylated a1c Quique sims MD Work Phone: Start: 03-29-2024 Ecg routine ecg w/least 12 lds i&r only Quique Nugent MD Work Phone: Start: 03-29-2024 Assay of troponin quantitative Meg RUTHERFORD-Amanda Work Phone: Start: 03-29-2024 End: 03-29-2024 Ct angiography head w/contrast/noncontrast eMg RUTHERFORD-Amanda Work Phone: Start: 03-29-2024 Ct angiography neck w/contrast/noncontrast Meg Matamoros PA-C Work Phone: Start: 03-29-2024 Bacteria identified in Blood by Culture Meg RUTHERFORD-C Work Phone: Start: 03-29-2024 End: 03-29-2024 Culture bacterial quanttative colony count urine Meg RUTHERFORD-Amanda Work Phone: Start: 03-29-2024 Ecg routine ecg w/least 12 lds i&r only Meg RUTHERFORD-Amanda Work Phone: Start: 03-29-2024 Respiratory pathogens DNA and RNA panel - Nasopharynx by SHAI with non-probe detection Meg RUTHERFORD-C Work Phone: Start: 03-29-2024 Radiologic exam chest single view Meg Matamoros PA-C Work Phone: Start: 03-29-2024 POCT VENOUS Quique Nugent MD Work Phone: Start: 03-29-2024 End: 03-29-2024 Comprehensive metabolic panel Meg Matamoros PA-C Work Phone: Start: 03-29-2024 End: 03-29-2024 LACTATE, SEPSIS Meg Gina Saturnino HOPE Work Phone: Start: 03-29-2024 Assay of ethanol Meg Matamoros PA-C Work Phone: Start: 03-29-2024 Drug tst prsmv instrmnt chem analyzers pr date Meg Matamoros PA-C Work Phone: Start: 03-29-2024 Urinalysis microscopic only Meg Gina Matanino holt PA-C Work Phone: Start: 03-29-2024 Urnls dip stick/tablet rgnt auto w/o microscopy Meg Gina Saturnino HOPE Work Phone: Start: 03-27-2024 Glucose quantitative blood xcpt reagent strip Guero Monson MD Work Phone: Start: 03-27-2024 Glucose quantitative blood xcpt reagent strip Guero Monson MD Work Phone: Start: 03-26-2024 Glucose quantitative blood xcpt reagent strip Guero Monson MD Work Phone: Start: 03-26-2024 Glucose quantitative blood xcpt reagent strip Guero Monson MD Work Phone: Start: 03-26-2024 Ct head/brain w/o contrast material Alice Harper DO Work Phone: Start: 03-26-2024 Glucose quantitative blood xcpt reagent strip Guero Monson MD Work Phone: Start: 03-26-2024 Glucose quantitative blood xcpt reagent strip Guero Monson MD Work Phone: Start: 03-26-2024 Us abdominal real time w/image documentation afviji W Pool DO Work Phone: Start: 03-26-2024 Glucose quantitative blood xcpt reagent strip Marily Silverio DO Work Phone: Start: 03-26-2024 Comprehensive metabolic panel Christiana Cruz DO Work Phone: Start: 03-25-2024 Glucose quantitative blood xcpt reagent strip Marily D Zaugg DO Work Phone: Start: 03-25-2024 Glucose quantitative blood xcpt reagent strip Marily D Zaugg DO Work Phone: Start: 03-25-2024 Glucose quantitative blood xcpt reagent strip Marily D Zaugg DO Work Phone: Start: 03-25-2024 Glucose quantitative blood xcpt reagent strip Marily D Zaugg DO Work Phone: Start: 03-25-2024 Comprehensive metabolic panel Soumajit Anthony DO Work Phone: Start: 03-24-2024 Glucose quantitative blood xcpt reagent strip Marily D Zaugg DO Work Phone: Start: 03-24-2024 Glucose quantitative blood xcpt reagent strip Marily D Zaugg DO Work Phone: Start: 03-24-2024 End: 03-24-2024 Comprehensive metabolic panel Soumajit Anthony DO Work Phone: Start: 03-24-2024 Glucose quantitative blood xcpt reagent strip Marily D Zaugg DO Work Phone: Start: 03-23-2024 Glucose quantitative blood xcpt reagent strip Marily D Zaugg DO Work Phone: Start: 03-23-2024 Glucose quantitative blood xcpt reagent strip Marily D Zaugg DO Work Phone: Start: 03-23-2024 Creatinine other source Camilo Camara DO Work Phone: Start: 03-23-2024 Glucose quantitative blood xcpt reagent strip Marily D Zaugg DO Work Phone: Start: 03-23-2024 Glucose quantitative blood xcpt reagent strip Marily D Zaugg DO Work Phone: Start: 03-23-2024 Comprehensive metabolic panel Soumajit Anthony DO Work Phone: Start: 03-23-2024 Manual Differential panel - Blood Soumajit Anthony DO Work Phone: Start: 03-22-2024 Glucose quantitative blood xcpt reagent strip Justine E Citlali MOLINA Work Phone: Start: 03-22-2024 Glucose quantitative blood xcpt reagent strip Justine E Citlali MOLINA Work Phone: Start: 03-22-2024 Glucose quantitative blood xcpt reagent strip Justine E Citlali MOLINA Work Phone: Start: 03-22-2024 Glucose quantitative blood xcpt reagent strip Justine E Citlali MOLINA Work Phone: Start: 03-22-2024 Comprehensive metabolic panel Souelvie Cruz DO Work Phone: Start: 03-21-2024 Glucose quantitative blood xcpt reagent strip Justine Socrates Godwin MD Work Phone: Start: 03-21-2024 Glucose quantitative blood xcpt reagent strip Justine E Citlali MOLINA Work Phone: Start: 03-21-2024 Glucose quantitative blood xcpt reagent strip Justine E Citlali MOLINA Work Phone: Start: 03-21-2024 Glucose quantitative blood xcpt reagent strip Justine Sorcates Godwin MD Work Phone: Start: 03-21-2024 Comprehensive metabolic panel Christiana Cruz DO Work Phone: Start: 03-20-2024 Glucose quantitative blood xcpt reagent strip Justine Socrates Godwin MD Work Phone: Start: 03-20-2024 Glucose quantitative blood xcpt reagent strip Justine Socrates Godwin MD Work Phone: Start: 03-20-2024 Glucose quantitative blood xcpt reagent strip Justine E Citlali MOLINA Work Phone: Start: 03-20-2024 Glucose quantitative blood xcpt reagent strip Justine Socrates Godwin MD Work Phone: Start: 03-20-2024 Glucose quantitative blood xcpt reagent strip Justine Socrates Godwin MD Work Phone: Start: 03-20-2024 Comprehensive metabolic panel Souadint Anthony DO Work Phone: Start: 03-19-2024 Mra head w/o contrst material Gi Sim MD Work Phone: Start: 03-19-2024 Glucose quantitative blood xcpt reagent strip Justine Godwin MD Work Phone: Start: 03-19-2024 Glucose quantitative blood xcpt reagent strip Justine Godwin MD Work Phone: Start: 03-19-2024 Radiologic exam abdomen 1 view Marah Daren DO Work Phone: Start: 03-19-2024 Glucose quantitative blood xcpt reagent strip Justine Godwin MD Work Phone: Start: 03-19-2024 Comprehensive metabolic panel Sousccarolynnt Anthony DO Work Phone: Start: 03-18-2024 Glucose quantitative blood xcpt reagent strip Justine Godwin MD Work Phone: Start: 03-18-2024 History of placement of stent for coronary artery disease Jase Lucasyordanjanette DO Work Phone: Start: 03-18-2024 Glucose quantitative blood xcpt reagent strip Justine Godwin MD Work Phone: Start: 03-18-2024 Ct head/brain w/o contrast material Ace Blakely MD Work Phone: Start: 03-18-2024 Glucose quantitative blood xcpt reagent strip Justine Godwin MD Work Phone: Start: 03-18-2024 Comprehensive metabolic panel Soumajit Anthony DO Work Phone: Start: 03-17-2024 Glucose quantitative blood xcpt reagent strip Jase Lucasneo DO Work Phone: Start: 03-17-2024 Glucose quantitative blood xcpt reagent strip Jase Lucasneo DO Work Phone: Start: 03-17-2024 Glucose quantitative blood xcpt reagent strip Jase Lucasyordano DO Work Phone: Start: 03-17-2024 TTE w or wo fol wcon,Doppler Marah Daren DO Work Phone: Start: 03-17-2024 Glucose quantitative blood xcpt reagent strip Jase Ortiz DO Work Phone: Start: 03-17-2024 Comprehensive metabolic panel Souelvie Cruz DO Work Phone: Start: 03-16-2024 Glucose quantitative blood xcpt reagent strip Jase Ortiz DO Work Phone: Start: 03-16-2024 Glucose quantitative blood xcpt reagent strip Jase Ortiz DO Work Phone: Start: 03-16-2024 Ecg routine ecg w/least 12 lds trcg only w/o i&r Festus Han MD Work Phone: Start: 03-16-2024 Cardiac catheterization study Maximo Max MD Work Phone: Start: 03-16-2024 End: 03-16-2024 POCT ACT Jase Valladares O Work Phone: Start: 03-16-2024 End: 03-16-2024 POCT ACT Jase Valladares O Work Phone: Start: 03-16-2024 Glucose quantitative blood xcpt reagent strip aJse Ortiz DO Work Phone: Start: 03-16-2024 Hemoglobin glycosylated a1c Bhavana adam MD Work Phone: Start: 03-16-2024 Lipid panel Marah Daren DO Work Phone: Start: 03-16-2024 Manual differential performed [Presence] in Blood Vinuth Koduru DO Work Phone: Start: 03-16-2024 Comprehensive metabolic panel Soumacarolynnt Anthony DO Work Phone: Start: 03-15-2024 End: 03-15-2024 Comprehensive metabolic panel Soumacarolynnt Anthony DO Work Phone: Start: 03-15-2024 Ecg routine ecg w/least 12 lds trcg only w/o i&r Soumajit Anthony DO Work Phone: Start: 03-15-2024 Radiologic exam chest single view Christiana Cruz DO Work Phone: Start: 09-16-2023 Computed tomography of abdomen and pelvis with contrast Start: 12-16-2022 CT LUNG SCREENING Luz Mcdermott POISER - ELECTRICAL CAD DESIGNER Work Phone: Start: 04-06-2022 Gluc bld gluc mntr dev cleared fda spec home use Unknown Provider Result Start: 04-06-2022 End: 04-06-2022 Basic metabolic panel calcium total Arabella Stnoe DO Work Phone: Start: 04-05-2022 Gluc bld gluc mntr dev cleared fda spec home use Unknown Provider Result Start: 04-05-2022 Gluc bld gluc mntr dev cleared fda spec home use Unknown Provider Result Start: 04-05-2022 Gluc bld gluc mntr dev cleared fda spec home use Unknown Provider Result Start: 04-05-2022 End: 04-05-2022 Basic metabolic panel calcium total Callum Esquivel MD Work Phone: Start: 04-05-2022 Ecg routine ecg w/least 12 lds w/i&r Corbett MD Work Phone: Start: 04-04-2022 Gluc bld gluc mntr dev cleared fda spec home use Unknown Provider Result Start: 04-04-2022 Gluc bld gluc mntr dev cleared fda spec home use Unknown Provider Result Start: 04-04-2022 Echo tthrc r-t 2d w/wom-mode compl spec&colr d Quique Nugent MD Work Phone: Start: 04-04-2022 Gluc bld gluc mntr dev cleared fda spec home use Unknown Provider Result Start: 04-04-2022 Urinalysis microscopic only Arabella candelario DO Work Phone: Start: 04-04-2022 Urnls dip stick/tablet rgnt auto w/o microscopy Arabella Stone DO Work Phone: Start: 04-04-2022 Procalcitonin (pct) Arabella Stone DO Work Phone: Start: 04-04-2022 End: 04-04-2022 Assay of magnesium Quique Nugent MD Work Phone: Start: 04-03-2022 Assay of troponin quantitative Quique Nugent MD Work Phone: Start: 04-03-2022 Gluc bld gluc mntr dev cleared fda spec home use Unknown Provider Result Start: 04-03-2022 Ecg routine ecg w/least 12 lds i&r only Quique Nugent MD Work Phone: Start: 04-03-2022 Gluc bld gluc mntr dev cleared fda spec home use Unknown Provider Result Start: 04-03-2022 Dup-scan xtr veins complete bilateral study Quique Nugent MD Work Phone: Start: 04-03-2022 Hemoglobin glycosylated a1c Quique sims MD Work Phone: Start: 04-03-2022 Gluc bld gluc mntr dev cleared fda spec home use Unknown Provider Result Start: 04-03-2022 Ct angiography chest w/contrast/noncontrast Corbett MD Work Phone: Start: 04-03-2022 COVID-19, RAPID Corbett MD Work Phone: Start: 04-03-2022 Iaadiadoo influenza Corbett MD Work Phone: Start: 04-03-2022 Radiologic exam chest single view Corbett MD Work Phone: Start: 04-03-2022 Natriuretic peptide Corbett MD Work Phone: Start: 04-03-2022 Ecg routine ecg w/least 12 lds w/i&r Mel RUTHERFORD Work Phone: Cholecstot/cholecsto st w/expl drg/rmvl st1 spx MARTA HILL POISER-ELECTRICAL CAD DESIGNER History of placement of stent for coronary artery disease S/P coronary artery stent placement Jase Ortiz DO Work Phone: Plan of Treatment Date Care Activity Detail Author Start: 07-14-2035 Screening for malignant neoplasm of colon [facility] Start: 2031 [facility] Start: 06-30-2026 Screening for malignant neoplasm of lung Lung Cancer Screening &/or Counseling [facility] Start: 06-18-2026 GFR test (Diabetes, CKD 3-4, OR last GFR 15-59) GFR test (Diabetes, CKD 3-4, OR last GFR 15-59) [facility] Start: 06-18-2026 Lipid panel Lipids [facility] Start: 02-20-2026 GFR test (Diabetes, CKD 3-4, OR last GFR 15-59) GFR test (Diabetes, CKD 3-4, OR last GFR 15-59) [facility] Start: 01-21-2026 GFR test (Diabetes, CKD 3-4, OR last GFR 15-59) GFR test (Diabetes, CKD 3-4, OR last GFR 15-59) [facility] Start: 12-12-2025 Depression Monitoring Depression Monitoring [facility] [employer] Start: 09-17-2025 Hemoglobin A1c measurement A1C test (Diabetic or Prediabetic) [facility] Start: 09-10-2025 End: 09-10-2025 Patient encounter procedure 09/10/2025 2:30 PM EST Office Visit [facility] [address] [place] [address] Luz Mcdermott, POISER - ELECTRICAL CAD DESIGNER [address] [place] [address] 3 month follow up [facility] Comment on above: 3 month follow up Start: 08-30-2025 Screening for malignant neoplasm of breast Breast cancer screen [facility] Start: 08-20-2025 End: 08-20-2025 Patient encounter procedure 08/20/2025 11:00 AM EST Office Visit [facility] [address] [place] [address] Catie Moreno DO [address] [place] [address] Specialty Services Required [facility] Comment on above: Specialty Services Required Start: 07-14-2025 End: 07-14-2025 Colon ca scrn not hi rsk ind COLORECTAL CANCER SCREENING, NOT HIGH RISK Colon cancer screening 07/14/2025 11:26 AM EDT [facility] Start: 07-09-[address] [facility] Start: 05-28-2025 End: 05-28-2026 PACEMAKER EVALUATION PACEMAKER EVALUATION Cardiac Services Routine Encounter for loop recorder check Expected: 05/28/2025, Expires: 05/28/2026 [facility] Comment on above: Expected: 05/28/2025, Expires: Start: 05-26-2025 COVID-19 Vaccine () COVID-19 Vaccine () [facility] Start: 04-25-2025 [facility] Start: 04-22-2025 Hemoglobin A1c measurement A1C test (Diabetic or Prediabetic) [facility] Start: 04-02-2025 GFR test (Diabetes, CKD 3-4, OR last GFR 15-59) GFR test (Diabetes, CKD 3-4, OR last GFR 15-59) [facility] Start: 03-30-2025 [facility]id [facility] Start: 03-26-2025 Creatinine measurement [facility] Start: 03-26-2025 Potassium measurement [facility] Start: 03-26-2025 [facility] Start: 03-21-2025 Glaucoma screening [facility] Start: 03-20-2025 End: 03-20-2025 Patient encounter procedure 03/20/2025 1:30 PM EDT Office Visit [facility] [address] [place] [address] Luz Mcdermott, POISER - ELECTRICAL CAD DESIGNER [address] [place] [address] 4 week follow up [facility] Comment on above: 4 week follow up Start: 03-17-2025 [facility] Start: 03-16-2025 Hemoglobin A1c measurement [facility] Start: 03-16-2025 Lipid panel [facility] Start: 02-20-2025 End: 02-20-2025 Patient encounter procedure 02/20/2025 1:00 PM EDT Office Visit [facility] [address] [place] [address] Luz Mcdermott, POISER - ELECTRICAL CAD DESIGNER [address] [place] [address] 1-3 months [facility] Comment on above: 1-3 months Start: 01-23-2025 End: 01-23-2025 Patient encounter procedure 01/23/2025 2:00 PM EDT Office Visit [facility] [address] [place] [address] Luz Mcdermott, POISER - ELECTRICAL CAD DESIGNER [address] [place] [address] 1-3 months [facility] Comment on above: 1-3 months Start: 12-12-2024 End: 12-12-2024 Patient encounter procedure 12/12/2024 2:30 PM EDT Office Visit [facility] [address] [place] [address] Luz Mcdermott, POISER - ELECTRICAL CAD DESIGNER [address] [place] [address] Med refills [facility] Comment on above: Med refills Start: 09-25-2024 Annual Wellness Visit (Medicare Advantage) Annual Wellness Visit (Medicare Advantage) [facility] Start: 08-30-2024 Urine screening for protein Diabetic Alb to Cr ratio (uACR) test [facility] Start: 06-29-2024 Hemoglobin A1c measurement A1C test (Diabetic or Prediabetic) [facility] [employer] Start: 06-06-2024 Screening for malignant neoplasm of lung Lung Cancer Screening &/or Counseling [facility] [employer] Start: 05-26-2024 COVID-19 Vaccine ( season) COVID-19 Vaccine () [facility] Start: 05-26-2024 COVID-19 Vaccine () COVID-19 Vaccine () [facility] [employer] Start: 05-26-2024 [facility] [employer] Start: 05-09-2024 End: 05-09-2024 Patient encounter procedure 05/09/2024 10:40 AM EDT Office Visit [facility] [address] [address] [place] [address] [place] [id number] WEEK S/P ILR [facility] Comment on above: 4 WEEK S/P ILR Start: 04-25-2024 Influenza vaccination Flu vaccine (#1) [facility] Start: 04-08-2024 End: 04-08-2024 Nursing evaluation of patient and report 04/08/2024 1:00 PM EDT Nurse Only [facility] [address] [facility] [address] [place] [id number] 1 WEEK STAPLE REMOVAL [facility] Comment on above: 1 WEEK STAPLE REMOVAL Start: 12-17-2023 Screening for malignant neoplasm of lung [facility] Start: 12-01-2023 Depression Monitoring Depression Monitoring [facility] [employer] Start: 09-25-2023 Annual Wellness Visit (Medicare Advantage) Annual Wellness Visit (Medicare Advantage) [facility] Start: 09-25-2023 [facility] Start: 09-16-2023 Bacteria identified in Urine by Culture Urine Culture [facility] Start: 09-16-[address] [facility] Start: 09-16-[address] [facility] Start: 08-11-2023 Hemoglobin A1c measurement A1C test (Diabetic or Prediabetic) [facility] Start: 07-13-2023 GFR test (Diabetes, CKD 3-4, OR last GFR 15-59) GFR test (Diabetes, CKD 3-4, OR last GFR 15-59) [facility] Start: 05-26-2023 [facility] Start: 04-25-2023 Diabetic foot examination Diabetic foot exam [facility] Start: 04-21-2023 Lipid panel Lipids [facility] Start: 12-29-2022 End: 12-29-2022 Patient encounter procedure 12/29/2022 Office Visit Cardiology Mel Antonio PA [address] [facility] [address] [place] [address] [facility] Start: 12-27-2022 End: 12-27-2022 Patient encounter procedure 12/27/2022 Office Visit Family Luz Stanley APRN - ELECTRICAL CAD DESIGNER [address] [place] [address] [facility] Start: 07-04-2022 Hemoglobin A1c measurement A1C test (Diabetic or Prediabetic) [facility] Start: 05-26-2022 Influenza vaccination Flu vaccine (#1) [facility] Start: 04-25-2022 Influenza vaccination Flu vaccine (#1) [facility] Start: 04-21-2022 End: 04-21-2022 Patient encounter procedure 04/21/2022 Office Visit Cardiology Mel Antonio PA [address] [facility] [address] [place] [address] [facility] Start: 04-13-2022 End: 04-13-2022 Patient encounter procedure 04/13/2022 Office Visit Family Luz Stanley APRN - ELECTRICAL CAD DESIGNER [address] [place] [address] (work) [facility] Start: 2021 Screening for malignant neoplasm of breast Breast cancer screen [facility] Start: 2021 Screening for malignant neoplasm of lung Low dose CT lung screening [facility] Start: 2021 Shingles vaccine (1 of 2) Shingles vaccine (1 of 2) [facility] Start: 2021 [facility] Start: 2016 Screening for malignant neoplasm of colon [facility] Start: 03-13-2016 Lipid panel Lipids [facility] Start: 2011 Screening for malignant neoplasm of breast [facility] Start: 2001 Screening for malignant neoplasm of cervix [facility] Start: 1992 Screening for malignant neoplasm of cervix [facility] Start: 1990 DTaP/Tdap/Td vaccine (1 - Tdap) DTaP/Tdap/Td vaccine (1 - Tdap) [facility] Start: 1990 Hepatitis B vaccine (1 of 3 - 19+ 3-dose series) Hepatitis B vaccine (1 of 3 - 19+ 3-dose series) [facility] Start: 1990 Hepatitis B vaccine (1 of 3 - Risk 3-dose series) Hepatitis B vaccine (1 of 3 - Risk 3-dose series) [facility] Start: 1990 Pneumococcal 50+ years Vaccine (1 of 2 - PCV) Pneumococcal 50+ years Vaccine (1 of 2 - PCV) [facility] Start: 1990 [facility] Start: 1989 Diabetic retinal exam Diabetic retinal exam [facility] Start: 1989 Glaucoma screening Diabetic retinal exam [facility] Start: 1989 Hepatitis C screening [facility] Start: 1989 Urine screening for protein [facility] Start: 1989 [facility] Start: 1983 Depression Monitoring Depression Monitoring [facility] Start: 1983 Depression Screen Depression Screen [facility] Start: 1983 [facility] Start: 1981 Diabetic foot examination [facility] Start: 1981 Preventive dental service [facility] Start: 1977 Pneumococcal 0-64 years Vaccine (1 - PCV) Pneumococcal 0-64 years Vaccine (1 - PCV) [facility] Start: 1977 Pneumococcal 0-64 years Vaccine (1 of 2 - PCV) Pneumococcal 0-64 years Vaccine (1 of 2 - PCV) [facility] Start: 1977 [facility] Start: 1976 COVID-19 Vaccine (1) COVID-19 Vaccine (1) [facility] Start: 1972 [facility] Start: 02-17-1972 COVID-19 Vaccine (#1) COVID-19 Vaccine (#1) [facility] Start: 1971 Hepatitis B vaccine (1 of 3 - 3-dose series) Hepatitis B vaccine (1 of 3 - 3-dose series) [facility] Start: 1971 HIV screening [facility] Start: 1971 Screening for malignant neoplasm of colon [facility] Bacteria # 2 identif ied in Blood by Culture Culture, Blood 2 Microbiology STAT 03/29/2024 8:42 AM EDT [facility] Bacteria identified in Blood by Culture Blood Culture 1 Microbiology STAT 03/29/2024 8:42 AM EDT [facility] [employer] Basic metabolic 2000 panel - Serum or Plasma Basic Metabolic Panel Lab Routine Tomorrow AM until discontinued starting 04/06/2022, 1 completed [facility] [employer] Work Phone: Comment on above: Tomorrow AM until discontinued starting 04/06/2022, 1 completed End: 04-07-2022 Brain Natriuretic Peptide Brain Natriuretic Peptide Lab Timed One Time for 1 Occurrences starting 04/07/2022 until 04/07/2022 [facility] [employer] Phone: Comment on above: One Time for 1 Occurrences starting 03/25 until 04/07/2022 End: 04-05-2022 Catheterization and angiography procedure details panel Diagnostic Cardiac Glazier Stained Glass Procedure Cardiac Cath Routine One Time for 1 Occurrences starting 04/05/2022 until 04/05/2022 [employer] [employer] Phone: Comment on above: One Time for 1 Occurrences starting 03/25 until 04/05/2022 CBC W Auto Different ial panel - Blood CBC with Auto Differential Lab Routine Tomorrow AM until discontinued starting 04/06/2022, 1 completed [employer] Phone: Comment on above: Tomorrow AM until discontinued starting 04/06/2022, 1 completed EKG 12 Lead EKG 12 Lead ECG Routine 03/29/2024 6:14 PM EDT [facility] Electrophysiology procedure Electrophysiology procedure CV Electrophysiology Routine Systolic congestive heart failure, unspecified HF chronicity (HCC) 04/01/2024 12:32 PM EDT [facility] [place] Glucose [Mass/volume ] in Serum or Plasma [employer] Phone: Comment on above: 4X Daily (AC & HS) until discontinued st arting 04/03/2022 As Needed until disc ontinued starting 04/03/2022 Glucose [Mass/volume ] in Serum or Plasma [facility] [place] Comment on above: 4X Daily (AC & HS) until discontinued st arting 03/29/2024 As Needed until disc ontinued starting 03/29/2024 Glucose [Mass/volume ] in Serum or Plasma POCT glucose Point of Care Testing STAT As Needed until discontinued starting 07/14/2025 [employer] Comment on above: As Needed until discontinued starting Magnesium [Mass/volu me] in Serum or Plasma Magnesium Lab Routine Tomorrow AM until discontinued starting 04/06/2022, 1 completed [employer] Phone: Comment on above: Tomorrow AM until discontinued starting 04/06/2022, 1 completed Oxygen therapy [Mini mum Data Set] Initiate Oxygen Therapy Protocol Respiratory Care Routine Daily until discontinued starting 04/03/2022 [employer] Phone: Comment on above: Daily until discontinued starting 2021 Oxygen therapy [Mini mum Data Set] Initiate Oxygen Therapy Protocol Respiratory Care Routine As Needed until discontinued starting 04/05/2022 [employer] Phone: Comment on above: As Needed until discontinued starting Oxygen therapy [Mini mum Data Set] Initiate Oxygen Therapy Protocol Respiratory Care Routine Daily until discontinued starting 04/05/2022 [facility] Work Phone: Comment on above: Daily until discontinued starting 2021 Oxygen therapy [Mini mum Data Set] Initiate Oxygen Therapy Protocol Respiratory Care Routine Daily until discontinued starting 03/29/2024 [facility] Comment on above: Daily until discontinued starting 2023 Pathology study Surgical Patholo gy Lab Routine Colon cancer screening Release Upon Ordering for 1 Occurrences starting 07/14/2025 [employer] Comment on above: Release Upon Ordering for 1 Occurrences starting 07/14/2025 Patient Education [facility] Work Phone: Patient referral [facility] Work Phone: Percutaneous coronar y intervention Cardiac procedure CV Cardiac Cath Routine Systolic congestive heart failure, unspecified HF chronicity (HCC) 04/01/2024 12:32 PM EDT [facility] End: 07-14-2025 Urine , POCT Urine , POCT Point of Care Testing STAT One Time for 1 Occurrences starting 07/14/2025 until 07/14/2025 [employer] Comment on above: One Time for 1 Occurrences starting 06/26 until 07/14/2025 Payers Date Payer Category Payer Medicare [id number] 2024 Self-pay 2023 Medicare [id number] 2022 Medicare [id number] 2014 Medicaid [id number] 1970 Unknown [id number] 2.16. [id number] 1970 Unknown [id number] 2.16. 840.1.272968.3.579.2.182 1970 Unknown [id number] 2.16. 840.1.018930.3.579.2.182 1970 Unknown [id number] 2.16. 840.1.368175.3.579.2.182 1970 Unknown [id number] 2.16. 840.1.444434.3.579.2.182 1970 Unknown [id number] 2.16. 840.1.457647.3.579.2.182 1970 Unknown [id number] 2.16. 840.1.403697.3.579.2.182 1970 Unknown [id number] 2.16. 840.1.768192.3.579.2.182 1970 Unknown [id number] 2.16. 840.1.578498.3.579.2.182 1971 Unknown [id number] 2.16 840.1.527454.3.579.2.182 1970 Unknown [id number] 2.16. 840.1.382071.3.579.2.182 Medicare MEDICARE PART A B [id number] Unknown [id number] Unknown [id number] 2.16.8 [id number] Unknown [id number] 2.16.8 40.1.493929.3.579.2.462 Unknown [id number] 2.16.8 40.1.203074.3.579.2.462 Unknown [id number] 2.16.8 [id number] Social History Date Type Detail Facility Start: 08-09-2021 Heavy tobacco smoker (finding) [facility] Start: 1970 Sex Assigned At Female A [facility] Start: 04-03-2022 End: 07-09-2025 Tobacco smoking status NHIS Smokes tobacco daily [employer] Phone: Start: 04-03-2022 End: 07-14-2025 Cigarettes smoked current (pack per day) - Reported 2 [facility] Start: 04-03-2022 End: 12-12-2024 Tobacco use and exposure Smokeless tobacco non-user [employer] Phone: Start: 04-04-2022 End: 07-14-2025 Alcohol intake Lifetime non-drinker (finding) [employer] Phone: Start: 04-03-2022 End: 11-30-2022 History SDOH Alcohol Frequency 1 [employer] Phone: Start: 1970 Sex Assigned At Not on file [facility] Phone: Start: 03-24-2022 End: 11-30-2022 Exposure to SARS-CoV-2 (event) Not sure [employer] Phone: History of tobacco use Cigarette Smoker [facility] Phone: Start: 11-30-2022 History SDOH Financial 5 [employer] Phone: Start: 11-30-2022 History SDOH Transpo rt Non-Med 2 [employer] Phone: Start: 09-16-2023 End: 03-16-2024 Tobacco smoking status NHIS Unknown if ever smoked [facility] Start: 09-07-2013 None [facility] Start: 09-07-2013 Spouse/ Signif icant Other [facility] Start: 09-07-2013 Cigarettes [facility] Start: 03-27-2024 End: 07-14-2025 [facility] [employer] Has the electric, [employer] s, oil, or water company threatened to shut off services in your home in past 12Mo [employer] Within the last year , have you been afraid of your partner or ex-partner? No [employer] How often to you hav e a drink containing alcohol? Never [facility] Start: 03-15-2024 Gender identity Identifies as female gender (finding) [employer] (I/We) worried wheth er (my/our) food would run out before (I/we) got money to buy more. Never true [facility] [employer] Start: 11-06-2012 Sex Female (finding) [place] [facility] [employer] Procedure Code Equipment Code Equipment Origin al Text Equipment Identifier Dates [id number] Start: 03-16-2024 [id number] Start: 03-16-2024 Monitor Crd 1.4 Cc 3.4 Gm Insertable Linq - [id number], [id number] FDA Start: 04-01-2024 1 strip by Other route 4 times daily as needed for Other (blood sugar checks) Test 4 times a day & as needed for symptoms of irregular blood glucose. [id number] Start: 02-20-2025 1 each by Does n ot apply route daily [id number] Start: 02-20-2025 [employer] Linq 22 FDA Start: 04-01-2024 Mental Status Date Assessment Result Facility 07-09-2025 Cognitive function Level Of Consciousness Awake [facility] Work Phone: Clinical Notes 08-09-2021 to 07-09-2025 Discharge InstructionsDischarge Instr - ActivityDischarge Instr - DietDischarge Instr - COCAttachmentsSal Jalloh, - 04/02/2024 1:30 PM EDTMSal rose, - 04/01/2024 5:25 PM EDT Note Date & Type Note Facility 07-09-[address] [facility] 07-09-2025 Radiology Diagnostic study note [facility] Imaging Services [address] [place] [address] Brain/Head without Contrast MR#: [id number] Acct: [id number] Name: NEIL WELLINGTON Rep #: [id number] : 1970 F 54 From: Ian Clifton MD PCP: REBECCA Parra Status: REG E R Study:Brain/Head without Contrast Date of Exa m: 07/09/25 Exam# [id number] Ordering Dr: Peter Billy DO PROCEDURE: BRAIN/HEAD WITHOUT CONTRAST 07/09/2025 REASON FOR EXAM: Headache TECHNIQUE: Procedure Code: CTBR Modality: CT Procedure: BRAIN/HEAD WITHOUT CONTRAST Coronal and Sagittal reconstruction series were provided. One or more dose reduction techniques were used (e.g., Automated exposure control, adjustment of the mA and/or kV according to patient size, use of iterative reconstruction technique. RADIATION DOSE SUMMARY: CTDlvol: 45 mGy DLP: 846 mGycm COMPARISON: None FINDINGS: Brain: There is no evidence of hemorrhage, acute ischemia or mass. No extra-axial fluid collection, midline shift or mass effect. Encephalomalacia is seen occipital lobes bilaterally. Mild low-density in the periventricular white matter. Subtle patchy hypodensityin the deep white matter. CSF Spaces: Mild generalized cerebral atrophy Sinuses/Mastoids: Subtotal opacification right maxillary sinus with air-fluid level. Mucosal thickening left maxillary sinus; some of the contents are hyperdense suggesting inspissated mucus or fungal infection. Subtotal opacification right frontal sinus. Opacification right mid and anterior ethmoid air cells in the anterior left ethmoid air cells. Mucosal thickening right laterally in the right sphenoid sinus. Mastoid sinuses are clear. Bones: No fracture CT/Brain/Head without Contrast IMPRESSION: 1. Bilateral occipital encephalomalacia. 2. Paranasal sinus disease as above. Consider sinusitis. This may be the source of the patient's headache. Reading Location: [id number] CC: WALL CLEANERJeffery Mcdermott; Dr. Peter Thompson DO ~ Charge Auditor: Signed [facility] 04-02-2024 Hospital Discharge instructions Catia Murillo RN - 04/02/2024 1:37 PM EDT Catia Murillo RN - 04/02/2024 1:53 PM EDT UP TOLERATED WITH WALKER AND ASSISTANCE, SAFELY. Catia Murillo RN - 04/02/2024 1:54 PM EDT Good nutrition is important when healing from an illness, injury, or surgery. Follow any nutrition recommendations given to you during your hospital stay. If you were given an oral nutrition supplement while in the hospital, continue to take this supplement at home. You can take it with meals, in-between meals, and/or before bedtime. These supplements can be purchased at most local grocery stores, pharmacies, and [employer]stores. If you have any questions about your diet or nutrition, call the hospital and ask for the dietitian. - GENERAL DIET 4 CARB CHOICES Catia Murillo RN - 04/02/2024 11:41 AM EDT Continuity of Care Form Patient Name: Neil Wellington : 1970 Admit date: 03/29/2024 Discharge date: 04/02/2024 Code Status Order: Full Code Advance Directives: Admitting Physician: Mateusz Ruff MD PCP: Luz Mcdermott, ROSSY - ELECTRICAL CAD DESIGNER Discharging Nurse: 2W Discharging Hospital Unit/Room#: W292/W292-01 Discharging Unit Phone Number: [phone] Emergency Contact: Extended Emergency Contact Information Primary Emergency Contact: MarvinEmerita gil Mobile Relation: Parent Preferred language: Togolese Director Index needed? No Secondary Emergency Contact: yanna luna Mobile Relation: Boyfriend Director Index needed? No Past Surgical History: History reviewed. No pertinent surgical history. Immunization History: There is no immunization history on file for this patient. 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 IV Access: - None Nursing Mobility/ADLs: Walking Assisted Transfer Assisted Bathing Assisted Dressing Assisted Toileting Assisted Feeding Dependent Waffle Machine Operator Assisted Med Delivery whole Wound Care Documentation and Therapy: Elimination: Continence: Bowel: Yes Bladder: Yes Urinary Catheter: None Colostomy/Ileostomy/Ileal Conduit: No Date of Last BM: 04/02/2024 No intake or output data in the 24 hours ending 04/02/24 1136 I/O last 3 completed shifts: In: - Out: 200 [Urine:200] Safety Concerns: History of falls Impairments/Disabilities: Vision Nutrition Therapy: Current Nutrition Therapy: - Oral Diet: Carb Control 4 carbs/meal (1800kcals/day) Routes of Feeding: Oral Liquids: Thin Liquids Daily Fluid Restriction: no Last Modified Barium Swallow with Video (Video Swallowing Test): not done Treatments at the Time of Hospital Discharge: Respiratory Treatments: N/A Oxygen Therapy: is not on home oxygen therapy. Ventilator: - No ventilator support Rehab Therapies: Physical Therapy and Occupational Therapy Weight Bearing Status/Restrictions: No weight bearing restrictions Other Medical Equipment (for information only, NOT a DME order): walker Other Treatments: none Patient's personal belongings (please select all that are sent with patient): Glasses, medical technologist chief, medtronic device, clothing RN SIGNATURE: CASE MANAGEMENT/SOCIAL WORK SECTION Inpatient Status Date: 03/29/2024 Readmission Risk Assessment Score: Readmission Risk Risk of Unplanned Readmission: 13 Discharging to Facility/ Agency Name: [facility] Address: Phone: Fax: Dialysis Facility (if applicable) Name: Address: Dialysis Schedule: Phone: Fax: Melt Helper/Applications Developer signature: PHYSICIAN SECTION Prognosis: {Prognosis:2321862471} Condition at Discharge: { Patient Condition:792151569} Rehab Potential (if transferring to Rehab): {Prognosis:2747013930} Recommended Labs or Other Treatments After Discharge: Physician Certification: I certify the above information and transfer of Neil Wellington is necessary for the continuing treatment of the diagnosis listed and that she requires [facility] Facility for less 30 days. Update Admission H&P: {CHP DME Changes in HandP:200058676} PHYSICIAN SIGNATURE: The following attachments cannot be sent through Care Everywhere.cephalexin (Togolese)empagliflozin (Togolese)insulin lispro (Togolese)Stroke (Togolese)documented in this encounter [facility] 04-02-2024 Hospital course Narrative [facility] Hospital Medicine Discharge Summary Neil Wellington : 1970 Admit date: 03/29/2024 Discharge date: 04/02/2024 Admitting Physician: Mateusz Ruff MD Primary Care Physician: Luz Mcdermott, POISER - ELECTRICAL CAD DESIGNER Discharge Diagnoses: Principal Problem: Sepsis (HCC) Active Problems: CVA (cerebrovascular accident due to intracerebral hemorrhage) (HCC) 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 * Chief Complaint Patient presents with Headache X3 days Condition: improved Activity: no strenuous activity Diet: diabetic Disposition: SNF Functional Status: ambulatory with assistance Significant Findings: MRI Brain: 1. 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 The left-sided infarcts show some evidence of subacute hemorrhage. 2. Tiny acute/subacute left cerebellar lacunar infarct. ANNY: Moderate to severe eccentric mitral regurgitation Moderate left atrial enlargement No evidence of thrombus in the left atrium or left atrial appendage. No PFO or ASD by color flow Doppler or agitated bubble study x 2 Elevated LA pressure with bowing of atrial septum to right. Normal LVEF 55-60% Recommendations: Given evidence of moderate LAE and significant MR, the likelihood of pAFib is now considered high. Will proceed with loop recorder implant. Hospital Course: 53-year-old female with class III obesity, poorly controlled type 2 diabetes, CAD (recent IL and stenting) and recent CVA complicated by near complete vision loss for which she was recovering at nursing facility presented initially with worsening vision, headache, new leukocytosis. She was empirically treated for infection that while cultures were negative. MRI showed large bilateral occipital strokes as described above. She did have ANNY and loop recorder implantation. For now, she will continue on dual antiplatelet therapy and high intensity statin with close attention to risk factor modification (obesity, diabetes, hypertension). She will continue her rehabilitation at [facility]. Exam on Discharge: BP (!) 149/73 Pulse 60 Temp 98.4 F (36.9 C) (Oral) Resp 17 Ht 1.626 m (5' 4") Wt 107.5 kg (236 lb 15.9 oz) SpO2 99% BMI 40.68 kg/m General appearance: alert, cooperative and no distress. Obese and chronically ill-appearing Mental Status: oriented to person, place and time and normal affect Lungs: clear to auscultation bilaterally, normal effort Heart: regular rate and rhythm, no murmur Abdomen: soft, nontender, nondistended, bowel sounds present, no masses Extremities: no edema, redness, tenderness in the calves Skin: no gross lesions, rashes Discharge Medication List: Medication List START taking these medications cephALEXin 500 MG capsule Commonly known as: KEFLEX Take 1 capsule by mouth 3 times daily for 2 days empagliflozin 10 MG tablet Commonly known as: JARDIANCE Take 1 tablet by mouth daily Start taking on: April 03, 2024 insulin lispro 100 UNIT/ML Soln injection vial Commonly known as: HUMALOG,ADMELOG Inject 0-8 Units into the skin 3 times daily (with meals) CONTINUE taking these medications aspirin EC 81 MG EC tablet Take 1 tablet by mouth daily atorvastatin 40 MG tablet Commonly known as: LIPITOR carvedilol 12.5 MG tablet Commonly known as: COREG enoxaparin 300 MG/3ML injection Commonly known as: LOVENOX FreeStyle Liset 14 Day [place] Walker 1 actuation by Does not apply route 4 times daily (before meals and nightly) FreeStyle Liset 14 Day Sensor Misc APPLY 1 SENSOR TO BACK OF UPPER ARM. REMOVE AND REPLACE EVERY 14 DAYS. USE WITH DEVICE TO MONITOR BLOOD SUGAR Glucose Management Tabs Take 1 tablet by mouth daily as needed (low blood sugar) Handicap Placard Misc by Does not apply route Good for 5 years insulin glargine 100 UNIT/ML injection vial Commonly known as: LANTUS ipratropium 0.5 mg-albuterol 2.5 mg 0.5-2.5 (3) MG/3ML Soln nebulizer solution Commonly known as: DUONEB losartan 50 MG tablet Commonly known as: COZAAR ticagrelor 90 MG Tabs tablet Commonly known as: BRILINTA TRUEplus Glucose On The Go 4 g chewable tablet Generic drug: glucose TAKE 3 TABLETS BY MOUTH NEEDED FOR LOW BLOOD SUGAR. STOP taking these medications Trulicity 3 MG/0.5ML Sopn Generic drug: Dulaglutide Where to Get Your Medications Information about where to get these medications is not yet available Ask your nurse or doctor about these medications cephALEXin 500 MG capsule empagliflozin 10 MG tablet insulin lispro 100 UNIT/ML Soln injection vial DC time 43 minutes Signed: Sal Jalloh DO 04/02/2024, 1:30 PM documented in this encounter [facility] 04-01-2024 History of Present illness Narrative Physician Progress Note 04/01/2024 5:25 PM Name: Neil Wellington IP Day: 3 Admit Date: 03/29/2024 6:54 AM PCP: Luz Mcdermott APRN - CNP Code Status: Full Code Subjective: Still having difficulty seeing. Doing fine after ANNY and loop recorder insertion Current Facility-Administered Medications Medication Dose Route Frequency Provider Last Rate Last Admin bacteriostatic water injection 30 mL 30 mL IntraVENous Once Fara Soto F, DO sodium chloride flush 0.9 % injection 10 mL 10 mL IntraVENous PRN Quique Nugent MD 10 mL at 04/01/24 1510 0.9 % sodium chloride infusion IntraVENous PRN Quique Nugent MD polyethylene glycol (GLYCOLAX) packet 17 g 17 g Oral Daily PRN Quique Nugent MD acetaminophen (TYLENOL) tablet 650 mg 650 mg Oral Q6H PRN Quique Nugent MD Or acetaminophen (TYLENOL) suppository 650 mg 650 mg Rectal Q6H PRN Quique Nugent MD ticagrelor (BRILINTA) tablet 90 mg 90 mg Oral BID Quique Nugent MD 90 mg at 03/31/242002 empagliflozin (JARDIANCE) tablet 10 mg 10 mg Oral Daily Quique Nugent MD 10 mg at 03/31/24 0938 carvedilol (COREG) tablet 6.25 mg 6.25 mg Oral BID Quique Nugent MD 6.25 mg at 03/31/242002 atorvastatin (LIPITOR) tablet 40 mg 40 mg Oral Nightly Quique Nugent MD 40 mg at 03/31/242002 aspirin EC tablet 81 mg 81 mg Oral Daily Quique Nugent MD 81 mg at 03/31/24 0938 insulin lispro (HUMALOG,ADMELOG) injection vial 5 Units 0.05 Units/kg SubCUTAneous TID Quique Nugent MD 5 Units at 03/31/24 1715 glucose chewable tablet 16 g 4 tablet Oral PRN Quique Nugent MD dextrose bolus 10% 125 mL 125 mL IntraVENous PRN Quique Nugent MD Or dextrose bolus 10% 250 mL 250 mL IntraVENous PRN Quique Nugent MD glucagon injection 1 mg 1 mg SubCUTAneous PRN Quique Nugent MD dextrose 10 % infusion IntraVENous Continuous PRN Quique Nugent MD insulin lispro (HUMALOG,ADMELOG) injection vial 0-8 Units 0-8 Units SubCUTAneous TID WC Quique Nugent MD 2 Units at 03/30/24 1800 insulin lispro (HUMALOG,ADMELOG) injection vial 0-4 Units 0-4 Units SubCUTAneous Nightly Quique Nugent MD 4 Units at 03/31/242009 cefTRIAXone (ROCEPHIN) 1,000 mg in sodium chloride 0.9 % 50 mL IVPB (mini-bag) 1,000 mg IntraVENous Q12H Quique Nugent MD Stopped at 04/01/24 1551 oxyCODONE (ROXICODONE) immediate release tablet 5 mg 5 mg Oral Q4H PRN Quique Nugent MD 5 mg at 04/01/24 0148 insulin glargine (LANTUS) injection vial 25 Units 25 Units SubCUTAneous Daily Quique Nugent MD 25 Units at 03/31/24 0939 Physical Examination: Vitals: BP 117/78 Pulse 71 Temp 98.2 F (36.8 C) (Oral) Resp 19 Ht 1.626 m (5' 4") Wt 107.5 kg (236 lb 15.9 oz) SpO2 96% BMI 40.68 kg/m Temp (24hrs), Av.5 F (36.9 C), Min:97.5 F (36.4 C), Max:99.1 F (37.3 C) General appearance: alert, cooperative and no distress. Obese Mental Status: oriented to person, place and time and normal affect Lungs: clear to auscultation bilaterally, normal effort Heart: regular rate and rhythm, no murmur Abdomen: soft, nontender, nondistended, bowel sounds present, no masses Extremities: no edema, redness, tenderness in the calves. Cap refill <2s Skin: no gross lesions, rashes Data: Labs: Recent Labs 03/30/24 0638 03/31/24 1101 WBC 20.0* 13.6* HGB 11.9* 12.7 PLT 362 367 Recent Labs 03/30/24 0638 03/31/24 1101 NA 138 135 K 4.5 4.4 CL 104 100 CO2 19* 21 BUN 29* 28* CREATININE 1.25* 1.23* GLUCOSE 174* 182* Recent Labs 03/30/24 0638 AST 21 ALT 55* BILITOT 0.3 ALKPHOS 173* Assessment and Plan: 1. Large bilateral CVA involving occipital lobes: -DAPT, high intensity statin -Reviewed ANNY -Loop recorder implanted. 2. Suspected sepsis due to UTI: -Though culture negative, will treat empirically with ceftriaxone until discharge Mild VERONA on CKD 3: Improved Poorly controlled type 2 diabetes Class III obesity Hypertension Moderate to severe mitral regurgitation Diet: ADULT DIET; Regular; 4 carb choices (60 gm/meal) Full Code Awaiting SNF acceptance Report given to Aung on nursing unit. No questions or concerns at this time. Patient placed on portable tele monitor and transport request placed VSS remain stable at this time. Loop insert site/dressing remains CDI. Gag reflux has returned and patient tolerating PO fluids. No complaints of pain at this time. Attempted to see patient on neurology rounds. Patient at ANNY. Patient arrived from procedure room. Report received from Catia OVERTON. VSS and monitored. LOOP insert site remains CDI. Patient sister requested to return back to [facility], shown to the floor. Patient to metallurgical lab technician for procedure at this time. Report given to Elise OVERTON. Patient taken to procedure room for procedure Patient arrived from nursing unit via cart. Informed consent obtained from Sister JOE via telephone. All questions and concerns addressed with understanding verbalized. Patient prepped for procedure. Physical Therapy Med Surg Initial Assessment Facility/Department: [address] Room: [place] [address] NAME: Neil Wellington : 1970 (53 y.o.) CODE STATUS: Full Code Date of Service: 04/01/2024 Patient Diagnosis(es): CVA (cerebrovascular accident due to intracerebral hemorrhage) ([facility]) [I61.9] Sepsis secondary to UTI ([facility]) [A41.9, N39.0] History of non-ST elevation myocardial infarction (NSTEMI) [I25.2] Sepsis ([facility]) [A41.9] Acute nonintractable headache, unspecified headache type [R51.9] Cerebrovascular accident (CVA), unspecified mechanism ([facility]) [I63.9] Cerebral infarction due to posterior cerebral artery occlusion, unspecified blood vessel laterality ([facility]) [I63.539] Systolic congestive heart failure, unspecified HF chronicity ([facility]) [I50.20] Chief Complaint Patient presents with Headache X3 days Patient Active Problem List Diagnosis Date Noted Psoriatic arthritis ([facility]) 11/30/2022 Chronic systolic (congestive) heart failure 11/30/2022 Type 2 diabetes mellitus without complication, without long-term current use of insulin ([facility]) 08/17/2022 New onset of congestive heart failure (HCC) 04/03/2022 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 No pertinent surgical history. Chart Reviewed: Yes Family / Caregiver Present: No Diagnosis: Sepsis (HCC) General Comment Comments: Pt resting in bed - agreeable to PT evaluation Restrictions: Restrictions/Precautions: Fall Risk, Bed Alarm, Other (comment) (new onset of blindness per pt report) SUBJECTIVE: Subjective: "I'm groggy." Pain Pain: Denies pain pre and post session Prior Level of Function: Social/Functional History Lives With: (Pt states that she doesn't live alone, however unable to describe current living situation.) Type of Home: Apartment Home Layout: One level Home Access: Stairs to enter without rails Entrance Stairs - Number of Steps: 5 Bathroom Toilet: Standard Bathroom Accessibility: Accessible Home Equipment: None Receives Help From: Other (comment) (snf staff.) ADL Assistance: Needs assistance (per halfway SBA with ambulation and adl's since the pt is visually impaired.) Homemaking Responsibilities: No Ambulation Assistance: Independent (without AD; per case management, pt requires SBA) Transfer Assistance: Independent (Per facility, pt completes with SBA) Active Jewel Stripper: No Occupation: On disability Additional Comments: PLOF was difficult to obtain as patient was unable to report consistently. Information above obtained per case management and pt report OBJECTIVE: Vision Vision: Impaired Vision Exceptions: (Pt able to focus on object, unable to track effectively) Hearing: Within functional limits Cognition: Overall Orientation Status: Impaired Orientation Level: Disoriented to place, Disoriented to time, Disoriented to situation, Oriented to person Follows Commands: Within Functional Limits Cognition Comment: Patient had difficulty with attending to directions and then following through with information. She frequently reported "I don't know" when asked simple question about her PLOF Observation/Palpation Observation: No acute distress noted. Heavy word finding deficits and confusion noted during assessment. ROM: AROM: Generally decreased, functional Strength: Strength: Generally decreased, functional Neuro: Balance Sitting - Static: Good;- Sitting - Dynamic: Fair Standing - Static: Fair Standing - Dynamic: Poor;Fair Tone: Normal Coordination: Grossly decreased, non-functional Sensation: Intact Bed mobility Supine to Sit: Stand by assistance Sit to Supine: Stand by assistance Bed Mobility Comments: Increased time to complete Transfers Sit to Stand: Minimal Assistance;Stand by assistance Stand to Sit: Minimal Assistance;Stand by assistance Bed to Chair: Minimal assistance;Stand by assistance Comment: Close guarding d/t inconsistencies in balance and decreased attention. Ambulation Surface: Level tile Device: Rolling Walker Assistance: Minimal assistance Quality of Gait: Steadying assist and assist to manage WW safely. Decreased attention requiring cues for redirection. Distance: 10ft with turn Activity Tolerance Activity Tolerance: Treatment limited secondary to decreased cognition Patient Education Education Given To: Patient Education Provided: Role of Therapy;Plan of Care Education Method: Verbal Barriers to Learning: Cognition Education Outcome: Verbalized understanding;Continued education needed ASSESSMENT: Body Structures, Functions, Activity Limitations Requiring Skilled Therapeutic Intervention: Decreased functional mobility ;Decreased ADL status;Decreased cognition;Decreased safe awareness;Decreased strength;Decreased endurance;Decreased balance;Decreased coordination Decision Making: Medium Complexity History: High Exam: Med Clinical Presentation: High Therapy Prognosis: Good Barriers to Learning: attention; vision DISCHARGE RECOMMENDATIONS: Discharge Recommendations: Continue to assess pending progress, Patient would benefit from continued therapy after discharge Assessment: Continued PT indicated to progress mobility and facilitate DC at highest level of indep and safety. Per chart, pt's baseline SBA, and per pt's report, baseline is indep. Currently pt with decline in function from reported baseline. Rec therapy stay prior to DC home. Requires PT Follow-Up: Yes PLAN OF CARE: Physical Therapy Plan General Plan: 1 time a day 3-6 times a week Current Treatment Recommendations: Strengthening, ROM, Balance training, Functional mobility training, ADL/Self-care training, Transfer training, Endurance training, Gait training, Stair training, Neuromuscular re-education, Safety education & training, Home exercise program, Equipment evaluation, education, & procurement, Patient/Caregiver education & training, Positioning Safety Devices Type of Devices: All fall risk precautions in place Goals: Care Home Goals Fly Raiser Lockstitch Goal 1: Pt to complete bed mobility with indep Care Home Goal 2: Pt to complete transfers with SBA Fly Raiser Lockstitch Goal 3: Pt to ambulate 50-150ft with LRD and SBA Fly Raiser Lockstitch Goal 4: Pt to manage 5 steps with HR and SBA [facility] (6 CLICK) BASIC MOBILITY AM-PAC Inpatient Mobility Raw Score : 17 Therapy Time: Individual Time In 0845 Time Out 0854 Minutes 9 Rasheeda Monsivais PT, 04/01/24 at 9:12 AM Definitions for assistance levels Independent = pt does not require any physical supervision or assistance from another person for activity completion. Device may be needed. Stand by assistance = pt requires verbal cues or instructions from another person, close to but not touching, to perform the activity Minimal assistance= pt performs 75% or more of the activity; assistance is required to complete the activity Moderate assistance= pt performs 50% of the activity; assistance is required to complete the activity Maximal assistance = pt performs 25% of the activity; assistance is required to complete the activity Dependent = pt requires total physical assistance to accomplish the task Obtained telephone consent from sister, Valerie with RN x 2 for ANNY, +/- loop recorder insert. Cardiology Follow up Note Subjective: No chest pain or shortness of breath. Still with significant visual impairment and headaches. Review of Systems: As noted in HPI Objective: BP (!) 140/76 Pulse 65 Temp 98.4 F (36.9 C) (Oral) Resp 18 Ht 1.62 m (5' 3.78") Wt 107.5 kg (237 lb) SpO2 99% BMI 40.96 kg/m Constitutional: alert, cooperative, in no distress Eyes: Conjunctiva clear; no scleral icturus. PERRLA Respiratory: clear to auscultation bilaterally Musculoskeletal: No chest wall tenderness. No clubbing or cyanosis. Cardiovascular: regular rate and rhythm, S1, S2 normal, no murmur, click, rub or gallop. No carotid bruit. No JVD. Pulses 2+ and symmetric. GI: soft, non-tender, non-distended. Bowel sounds normal. No masses, no organomegaly MSK: extremities normal, atraumatic, no clubbing. No chest wall pain. Neurologic: + visual Skin: No rashes or lesions. No cyanosis. Intake/Output Summary (Last 24 hours) at 03/31/2024 8447 Last data filed at 03/31/2024 0220 Gross per 24 hour Intake 325 ml Output 700 ml Net -375 ml Medications: ticagrelor, 90 mg, BID empagliflozin, 10 mg, Daily carvedilol, 6.25 mg, BID atorvastatin, 40 mg, Nightly aspirin EC, 81 mg, Daily insulin lispro, 0.05 Units/kg, TID WC insulin lispro, 0-8 Units, TID WC insulin lispro, 0-4 Units, Nightly cefTRIAXone (ROCEPHIN) IV, 1,000 mg, Q12H insulin glargine, 25 Units, Daily sodium chloride dextrose Recent Labs 03/29/24 0730 03/29/24 0745 03/29/24 1738 03/30/24 0638 03/31/24 1101 HGB 14.0 -- -- 11.9* 12.7 WBC 24.7* -- -- 20.0* 13.6* PLT 376 -- -- 362 367 NA -- 132* 128* 138 135 K -- 4.2 4.4 4.5 4.4 CO2 -- 19* 18* 19* 21 BUN -- 32* 32* 29* 28* MG -- 2.3 -- -- -- C r 1.25 High-sensitivity troponin: 297, 293, 241, 170 EKG: My independent review reveals sinus rhythm. No significant ST-T wave changes. Telemetry: Not currently on telemetry Chest x-ray negative for acute process Echo (TTE) complete 03/29/2024 Interpretation Summary Left Ventricle: Normal left ventricular systolic function with a visually estimated EF of 50 - 55%. Left ventricle size is normal. Normal wall thickness. Normal wall motion. Diastolic dysfunction present with increased LAP with normal LV EF. Tricuspid Valve: The estimated RVSP is 31 mmHg. Left Atrium: Left atrium is mildly dilated. Image quality is adequate. CT of the head: Chronic right and subacute left parietooccipital infarcts. (Previously reported on an MRI of the brain from 03/19/2024 at an outside hospital). The report is available, the images are not available for direct comparison. 2. No new infarct or acute intracranial hemorrhage. 3. 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 4. 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 5. 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 6. 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 7. 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 8. Severe stenosis with near occlusion at the origin of the left vertebral artery. 9. Moderate stenosis of the junction of the V1 and V2 segments of the right vertebral artery. Echo at [facility] 03/17/24 Left Ventricle: Left ventricle size is normal. Mildly increased wall thickness. Normal left ventricular systolic function. EF by 2D Simpsons Biplane is 65%. See diagram for wall motion findings. Right Ventricle: Right ventricle size is normal. Normal systolic function. Mitral Valve: Not well visualized. Valve structure is normal. Moderate (2+) regurgitation. Left Atrium: Left atrium is mildly dilated. Left atrium size is mildly increased (LA volume index 35-41 mL/m2).LA Vol Index is 39 ml/m2. Cardiac cath: 03/17/24 at [facility] - Successful IVUS guided PCI of ostial to mid circumflex artery with deployment of 3.0 mm x 48 mm Synergy KINGSLEY (culprit lesion) - Successful IVUS guided PCI of ostial RCA with deployment of 4.0 mm x 12 mm Xience KINGSLEY - Medical therapy for mild to moderate disease of LAD and ramus as well as ostial LMT disease Assessment: Elevated troponin, suspect demand ischemia due to residual mild to moderate nonobstructive CAD in the LAD, ramus branch, and left main. Known CAD with recent IL, status post PCI/drug-eluting stents to circumflex and RCA (03/17/2024 at [facility]) History of cardiomyopathy, now recovered with normal LV systolic function, EF 50 to 55% Subacute left parietal occipital CVA, cryptogenic, suspected thromboembolic. Hypertension Hyperlipidemia Diabetes mellitus type 2 COPD/tobacco abuse Obesity Principal Problem: Sepsis (HCC) Active Problems: CVA (cerebrovascular accident due to intracerebral hemorrhage) (HCC) Elevated troponin Balint's syndrome Resolved Problems: * No resolved hospital problems. * Recommendations: Case discussed with neurology. Patient recommended ANNY to evaluate for embolic causes. If ANNY is negative, then loop recorder implantation is warranted to monitor for A-fib. She is at high risk for developing A-fib. Risks and benefits of ANNY and loop recorder were discussed in detail including risks of bleeding, infection, and esophageal injury. She would like to think about it and discuss with her brother and sister. She will let me know. If agreeable, plan for tomorrow. Continue aspirin and Brilinta without interruption for at least the next 6 months, ideally 1 year. Continue carvedilol, Jardiance, and statin. ADDENDUM: Spoke with patient's sister Valerie at [phone] with update and recommendation for above procedures. Reviewed risks/benefits again. She will speak to patient today and patient will make decision. Sister also mentions patient has had issues with non compliance in the past due to meth addiction but patient will likely require correction care so compliance should improve. Thank you for allowing me to participate in your patient's cardiac care. Should you have questions, please do not hesitate to contact me. Fara Soto DO, FAC, [facility] Hospitalist Progress Note PCP: Luz Mcdermott APRN - [facility] Date of Admission: 03/29/2024 Chief Complaint: Bilateral occipital strokes Subjective: : Pt is tearful today and having adjustment difficulty after the stroke. She continues to report blindness and only able to see shadows. No headache.No fever or dysuria Medications: Infusion Medications sodium chloride dextrose Scheduled Medications ticagrelor 90 mg Oral BID empagliflozin 10 mg Oral Daily carvedilol 6.25 mg Oral BID atorvastatin 40 mg Oral Nightly aspirin EC 81 mg Oral Daily insulin lispro 0.05 Units/kg SubCUTAneous TID WC insulin lispro 0-8 Units SubCUTAneous TID WC insulin lispro 0-4 Units SubCUTAneous Nightly cefTRIAXone (ROCEPHIN) IV 1,000 mg IntraVENous Q12H insulin glargine 25 Units SubCUTAneous Daily PRN Meds: sodium chloride flush, sodium chloride, polyethylene glycol, acetaminophen OR acetaminophen, glucose, dextrose bolus OR dextrose bolus, glucagon (rDNA), dextrose, oxyCODONE Intake/Output Summary (Last 24 hours) at 03/31/2024 1256 Last data filed at 03/31/2024 0220 Gross per 24 hour Intake 625 ml Output 1750 ml Net -1125 ml Exam: BP 134/77 Pulse 69 Temp 97.9 F (36.6 C) (Oral) Resp 18 Ht 1.62 m (5' 3.78") Wt 107.5 kg (237 lb) SpO2 98% BMI 40.96 kg/m General appearance: alert, awake Lungs: clear to auscultation bilaterally, normal effort Heart: regular rate and rhythm, no murmur Abdomen: soft, nontender, nondistended, bowel sounds present, no masses Extremities: no edema, redness, tenderness in the calves. 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 She is able to move her eyes with intact EOMI Labs: Recent Labs 03/29/24 0730 03/30/24 0638 03/31/24 1101 WBC 24.7* 20.0* 13.6* HGB 14.0 11.9* 12.7 HCT 40.7 35.6* 38.5 PLT 376 362 367 Recent Labs 03/29/24 1738 03/30/24 0638 03/31/24 1101 NA 128* 138 135 K 4.4 4.5 4.4 CL 97 104 100 CO2 18* 19* 21 BUN 32* 29* 28* CREATININE 1.43* 1.25* 1.23* CALCIUM 8.8 9.3 9.4 Recent Labs 03/29/24 0745 03/30/24 0638 AST 36* 21 ALT 85* 55* BILITOT 0.7 0.3 ALKPHOS 223* 173* No results for input(s): "INR" in the last 72 hours. No results for input(s): "CKTOTAL", "TROPONINI" in the last 72 hours. Radiology: CT HEAD WO CONTRAST Final Result Low-attenuation areas identified within the bilateral occipital lobes representing areas of evolving infarction. No acute intracranial hemorrhage, new mass effect or midline shift. US RETROPERITONEAL LIMITED Final Result Unremarkable ultrasound of the kidneys. MRA HEAD WO CONTRAST Final Result Bilateral posterior cerebral artery occlusions again noted, corresponding to bilateral posterior cerebral infarct seen on the MRI study. MRI BRAIN WO CONTRAST Final Result 1. 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 The left-sided infarcts show some evidence of subacute hemorrhage. 2. Tiny acute/subacute left cerebellar lacunar infarct. 3. The findings were sent to the Radiology Results Communication Center at 1:11 pm on 03/30/2024 to be communicated to a licensed caregiver. CTA NECK W WO CONTRAST Final Result 1. Chronic right and subacute left parietooccipital infarcts. (Previously reported on an MRI of the brain from 03/19/2024 at an outside hospital). The report is available, the images are not available for direct comparison. 2. No new infarct or acute intracranial hemorrhage. 3. 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 4. 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 5. 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 6. 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 7. 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 8. Severe stenosis with near occlusion at the origin of the left vertebral artery. 9. Moderate stenosis of the junction of the V1 and V2 segments of the right vertebral artery. The above findings were discussed with SANGEETA Gonzalez at 9:45 a.m. on 03/29/2024. CTA HEAD W WO CONTRAST Final Result 1. Chronic right and subacute left parietooccipital infarcts. (Previously reported on an MRI of the brain from 03/19/2024 at an outside hospital). The report is available, the images are not available for direct comparison. 2. No new infarct or acute intracranial hemorrhage. 3. 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 4. 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 5. 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 6. 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 7. 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 8. Severe stenosis with near occlusion at the origin of the left vertebral artery. 9. Moderate stenosis of the junction of the V1 and V2 segments of the right vertebral artery. The above findings were discussed with SANGEETA Gonzalez at 9:45 a.m. on 03/29/2024. CT HEAD WO CONTRAST Final Result 1. Chronic right and subacute left parietooccipital infarcts. (Previously reported on an MRI of the brain from 03/19/2024 at an outside hospital). The report is available, the images are not available for direct comparison. 2. No new infarct or acute intracranial hemorrhage. 3. 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 4. 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 5. 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 6. 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 7. 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 8. Severe stenosis with near occlusion at the origin of the left vertebral artery. 9. Moderate stenosis of the junction of the V1 and V2 segments of the right vertebral artery. The above findings were discussed with SANGEETA Gonzalez at 9:45 a.m. on 03/29/2024. XR CHEST PORTABLE Final Result No acute cardiopulmonary disease. 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 The left-sided infarcts show some evidence of subacute hemorrhage. Repeat CT of the head done on 03/31 didn't show any noticeable hemorrhage or bleeding. The patient is currently on ASA, brillinta, and lipitor. ANNY and loop recorder recommended per neurology *Sepsis present on admission. Likely source is urinary.Noted to have leukocytosis and evidence of UTI on urinalysis. WBC count down to 13K. No other signs of sepsis. Continue IV Rocephin and follow up blood and urine cultures. *VERONA/CKD. Improved, creatinine almost back to baseline *Elevated troponin. Recent IL. Recent stenting. Patient is on dual antiplatelets therapy as well as beta-nando. Her troponin is flat. No chest pain. Seen by cardiology and recommended conservative management. Continue DAPT, coreg and lipitor *Elevated liver enzymes of unknown etiology. Showed some improvement. US liver on 03/26/2024 didn't show any significant pathology *Diabetes with hyperglycemia. On lantus 25 units daily, jardiance and pre meal lispro cover with ISS. Bloood sugars reviewed seems to be better controlled with current dose of lantus *Multiple other medical issues not listed above. Diet: ADULT DIET; Regular Code Status: Full Code Neurology Follow up SUBJECTIVE: Patient quite frustrated as she cannot see and she was not able to eat. Headache does not appear to be a prominent symptom at this time. 03/31 No clinical change. Patient is blind has some minor vision on the left side though this could be a balance syndrome with visual apraxia. No other focal findings noted. No headaches reported. Repeat CT scan done and shows no hemorrhage. Current Facility-Administered Medications Medication Dose Route Frequency Provider Last Rate Last Admin sodium chloride flush 0.9 % injection 10 mL 10 mL IntraVENous PRN Quique Nugent MD 10 mL at 03/30/24 1008 0.9 % sodium chloride infusion IntraVENous PRN Quique Nugent MD polyethylene glycol (GLYCOLAX) packet 17 g 17 g Oral Daily PRN Quique Nugent MD acetaminophen (TYLENOL) tablet 650 mg 650 mg Oral Q6H PRN Quique Nugent MD Or acetaminophen (TYLENOL) suppository 650 mg 650 mg Rectal Q6H PRN Quique Nugent MD ticagrelor (BRILINTA) tablet 90 mg 90 mg Oral BID Quique Nugent MD 90 mg at 03/31/24 0938 empagliflozin (JARDIANCE) tablet 10 mg 10 mg Oral Daily Quique Nugent MD 10 mg at 03/31/24 0938 carvedilol (COREG) tablet 6.25 mg 6.25 mg Oral BID Quique Nugent MD 6.25 mg at 03/31/24 0938 atorvastatin (LIPITOR) tablet 40 mg 40 mg Oral Nightly Quique Nugent MD 40 mg at 03/30/24 2149 aspirin EC tablet 81 mg 81 mg Oral Daily Quique Nugent MD 81 mg at 03/31/24 0938 insulin lispro (HUMALOG,ADMELOG) injection vial 5 Units 0.05 Units/kg SubCUTAneous TID Quique Nugent MD 5 Units at 03/30/24 1759 glucose chewable tablet 16 g 4 tablet Oral PRN Quique Nugent MD dextrose bolus 10% 125 mL 125 mL IntraVENous PRN Quique Nugent MD Or dextrose bolus 10% 250 mL 250 mL IntraVENous PRN Quique Nugent MD glucagon injection 1 mg 1 mg SubCUTAneous PRN Quique Nugent MD dextrose 10 % infusion IntraVENous Continuous PRN Quique Nugent MD insulin lispro (HUMALOG,ADMELOG) injection vial 0-8 Units 0-8 Units SubCUTAneous TID Quique Nugent MD 2 Units at 03/30/24 1800 insulin lispro (HUMALOG,ADMELOG) injection vial 0-4 Units 0-4 Units SubCUTAneous Nightly Quique Nugent MD 4 Units at 03/29/24 2056 cefTRIAXone (ROCEPHIN) 1,000 mg in sodium chloride 0.9 % 50 mL IVPB (mini-bag) 1,000 mg IntraVENous Q12H Quique Nugent MD Stopped at 03/31/24 0342 oxyCODONE (ROXICODONE) immediate release tablet 5 mg 5 mg Oral Q4H PRN Quique Nugent MD 5 mg at 03/31/24 1137 insulin glargine (LANTUS) injection vial 25 Units 25 Units SubCUTAneous Daily Quique uNgent MD 25 Units at 03/31/24 0939 PHYSICAL EXAM: BP 134/77 Pulse 69 Temp 97.9 F (36.6 C) (Oral) Resp 18 Ht 1.62 m (5' 3.78") Wt 107.5 kg (237 lb) SpO2 98% BMI 40.96 kg/m General Appearance: Skin: normal CVS - Normal sounds, No murmurs , No carotid Bruits RS -CTA Abdomen Soft, BS present Review of Systems Mental Status Exam: Level of Alertness: awake Orientation: person, place, time Attention/Concentration: normal Language: normal Funduscopic Exam: Cranial Nerves Cranial nerve II patient completely blind or patient truly has a visual apraxia Cranial nerve III Pupils: equal, round, reactive to light Cranial nerves III, IV, Extraocular Movements: intact Cranial nerve XI Shoulder shrug: intact Cranial nerve XII Tongue movement: normal Motor: Overall weakness of 4/5 Drift: absent Motor exam is symmetrical 4 out of 5 all extremities bilaterally Tone: normal Abnormal Movements: absent Sensory: Pinprick Right Upper Extremity: normal Left Upper Extremity: normal Right Lower Extremity: normal Left Lower Extremity: normal Vibration Touch Proprioception Coordination: Unable to perform as no vision F Gait: Casual: Gait is deferred. Reflexes: Deep Tendon Reflexes: Reflexes are 2 + Plantar response: Right: downgoing Left: downgoing Vascular: Cardiac Exam: normal Echo (TTE) complete (PRN contrast/bubble/strain/3D) Result Date: 03/29/2024 Left Ventricle: Normal left ventricular systolic function with a visually estimated EF of 50 - 55%. Left ventricle size is normal. Normal wall thickness. Normal wall motion. Diastolic dysfunction present with increased LAP with normal LV EF. Tricuspid Valve: The estimated RVSP is 31 mmHg. Left Atrium: Left atrium is mildly dilated. Image quality is adequate. CT HEAD WO CONTRAST Result Date: 03/29/2024 EXAMINATION: CTA OF THE HEAD WITHOUT AND WITH CONTRAST; CT OF THE HEAD WITHOUT CONTRAST; CTA OF THE NECK 03/29/2024 8:54 am; 03/29/2024 8:52 am: TECHNIQUE: CTA of the head/brain was performed without and with the administration of intravenous contrast. Multiplanar reformatted images are provided for review. MIP images are provided for review. Automated exposure control, iterative reconstruction, and/or weight based adjustment of the mA/kV was utilized to reduce the radiation dose to as low as reasonably achievable.; CT of the head was performed without the administration of intravenous contrast. Automated exposure control, iterative reconstruction, and/or weight based adjustment of the mA/kV was utilized to reduce the radiation dose to as low as reasonably achievable.; CTA of the neck was performed with the administration of intravenous contrast. Multiplanar reformatted images are provided for review. MIP images are provided for review. Stenosis of the internal carotid arteries measured using NASCET criteria. Automated exposure control, iterative reconstruction, and/or weight based adjustment of the mA/kV was utilized to reduce the radiation dose to as low as reasonably achievable. Noncontrast CT of the head with reconstructed 2-D images are also provided for review. COMPARISON: No prior imaging is available. Reports from previous imaging from 03/18/2024 and 03/19/2024 are available for review. HISTORY: ORDERING SYSTEM PROVIDED HISTORY: ams TECHNOLOGIST PROVIDED HISTORY: Reason for exam:->ams Additional Contrast?->1 What reading provider will be dictating this exam?->CRC; ORDERING SYSTEM PROVIDED HISTORY: headache, cva/bleed/trauma TECHNOLOGIST PROVIDED HISTORY: Has a "code stroke" or "stroke alert" been called?->No Reason for exam:->headache Decision Support Exception - unselect if not a suspected or confirmed emergency medical condition->Emergency Medical Condition ([place]) What reading provider will be dictating this exam?->CRC FINDINGS: CT HEAD: BRAIN/VENTRICLES: There is abnormal hypoattenuation involving the bilateral occipital lobes, left greater than right. There is no acute intracranial hemorrhage. No mass effect or midline shift is present. There is no ventriculomegaly. ORBITS: Limited evaluation of the orbits is unremarkable. SINUSES: The paranasal sinuses and mastoid air cells are clear. SOFT TISSUES/SKULL: No lytic or blastic osseous lesions are identified. CTA NECK: AORTIC ARCH/ARCH VESSELS: No dissection or arterial injury. No significant stenosis of the brachiocephalic or subclavian arteries. CAROTID ARTERIES: There is circumferential mural thickening involving the bilateral common carotid arteries and proximal internal carotid arteries without significant stenosis or dissection. VERTEBRAL ARTERIES: There is a severe stenosis with near occlusion of the origin of the left vertebral artery. The left vertebral artery is otherwise normal in appearance. There is a moderate stenosis at the junction of the right V1 and V2 segments. The right vertebral artery is otherwise normal. SOFT TISSUES: The lung apices are clear. No pathologically enlarged lymphadenopathy or soft tissue mass is identified. The salivary glands are normal. The thyroid gland is unremarkable. BONES: No lytic or blastic osseous lesions are identified. CTA HEAD: ANTERIOR CIRCULATION: There is a severe stenosis of the supraclinoid left internal carotid artery. There is a saccular 2 mm aneurysm directed laterally from the cavernous right internal carotid artery. Azygous anterior cerebral artery is present. No significant stenosis or occlusion. The middle cerebral arteries are normal. There is no significant stenosis or aneurysm. POSTERIOR CIRCULATION: There is atherosclerotic plaque within the distal vertebral arteries without significant stenosis evident. The basilar artery is normal. There is abrupt occlusion of the P1 segment of the left posterior cerebral artery. There is abrupt occlusion of the P2 segment of the right posterior cerebral artery. OTHER: No dural venous sinus thrombosis on this non-dedicated study. 1. Chronic right and subacute left parietooccipital infarcts. (Previously reported on an MRI of the brain from 03/19/2024 at an outside hospital). The report is available, the images are not available for direct comparison. 2. No new infarct or acute intracranial hemorrhage. 3. 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 4. 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 5. 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 6. 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 7. 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 8. Severe stenosis with near occlusion at the origin of the left vertebral artery. 9. Moderate stenosis of the junction of the V1 and V2 segments of the right vertebral artery. The above findings were discussed with SANGEETA Gonzalez at 9:45 a.m. on 03/29/2024. CTA NECK W WO CONTRAST Result Date: 03/29/2024 EXAMINATION: CTA OF THE HEAD WITHOUT AND WITH CONTRAST; CT OF THE HEAD WITHOUT CONTRAST; CTA OF THE NECK 03/29/2024 8:54 am; 03/29/2024 8:52 am: TECHNIQUE: CTA of the head/brain was performed without and with the administration of intravenous contrast. Multiplanar reformatted images are provided for review. MIP images are provided for review. Automated exposure control, iterative reconstruction, and/or weight based adjustment of the mA/kV was utilized to reduce the radiation dose to as low as reasonably achievable.; CT of the head was performed without the administration of intravenous contrast. Automated exposure control, iterative reconstruction, and/or weight based adjustment of the mA/kV was utilized to reduce the radiation dose to as low as reasonably achievable.; CTA of the neck was performed with the administration of intravenous contrast. Multiplanar reformatted images are provided for review. MIP images are provided for review. Stenosis of the internal carotid arteries measured using NASCET criteria. Automated exposure control, iterative reconstruction, and/or weight based adjustment of the mA/kV was utilized to reduce the radiation dose to as low as reasonably achievable. Noncontrast CT of the head with reconstructed 2-D images are also provided for review. COMPARISON: No prior imaging is available. Reports from previous imaging from 03/18/2024 and 03/19/2024 are available for review. HISTORY: ORDERING SYSTEM PROVIDED HISTORY: ams TECHNOLOGIST PROVIDED HISTORY: Reason for exam:->ams Additional Contrast?->1 What reading provider will be dictating this exam?->CRC; ORDERING SYSTEM PROVIDED HISTORY: headache, cva/bleed/trauma TECHNOLOGIST PROVIDED HISTORY: Has a "code stroke" or "stroke alert" been called?->No Reason for exam:->headache Decision Support Exception - unselect if not a suspected or confirmed emergency medical condition->Emergency Medical Condition ([place]) What reading provider will be dictating this exam?->CRC FINDINGS: CT HEAD: BRAIN/VENTRICLES: There is abnormal hypoattenuation involving the bilateral occipital lobes, left greater than right. There is no acute intracranial hemorrhage. No mass effect or midline shift is present. There is no ventriculomegaly. ORBITS: Limited evaluation of the orbits is unremarkable. SINUSES: The paranasal sinuses and mastoid air cells are clear. SOFT TISSUES/SKULL: No lytic or blastic osseous lesions are identified. CTA NECK: AORTIC ARCH/ARCH VESSELS: No dissection or arterial injury. No significant stenosis of the brachiocephalic or subclavian arteries. CAROTID ARTERIES: There is circumferential mural thickening involving the bilateral common carotid arteries and proximal internal carotid arteries without significant stenosis or dissection. VERTEBRAL ARTERIES: There is a severe stenosis with near occlusion of the origin of the left vertebral artery. The left vertebral artery is otherwise normal in appearance. There is a moderate stenosis at the junction of the right V1 and V2 segments. The right vertebral artery is otherwise normal. SOFT TISSUES: The lung apices are clear. No pathologically enlarged lymphadenopathy or soft tissue mass is identified. The salivary glands are normal. The thyroid gland is unremarkable. BONES: No lytic or blastic osseous lesions are identified. CTA HEAD: ANTERIOR CIRCULATION: There is a severe stenosis of the supraclinoid left internal carotid artery. There is a saccular 2 mm aneurysm directed laterally from the cavernous right internal carotid artery. Azygous anterior cerebral artery is present. No significant stenosis or occlusion. The middle cerebral arteries are normal. There is no significant stenosis or aneurysm. POSTERIOR CIRCULATION: There is atherosclerotic plaque within the distal vertebral arteries without significant stenosis evident. The basilar artery is normal. There is abrupt occlusion of the P1 segment of the left posterior cerebral artery. There is abrupt occlusion of the P2 segment of the right posterior cerebral artery. OTHER: No dural venous sinus thrombosis on this non-dedicated study. 1. Chronic right and subacute left parietooccipital infarcts. (Previously reported on an MRI of the brain from 03/19/2024 at an outside hospital). The report is available, the images are not available for direct comparison. 2. No new infarct or acute intracranial hemorrhage. 3. 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 4. 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 5. 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 6. 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 7. 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 8. Severe stenosis with near occlusion at the origin of the left vertebral artery. 9. Moderate stenosis of the junction of the V1 and V2 segments of the right vertebral artery. The above findings were discussed with SANGEETA Gonzalez at 9:45 a.m. on 03/29/2024. CTA HEAD W WO CONTRAST Result Date: 03/29/2024 EXAMINATION: CTA OF THE HEAD WITHOUT AND WITH CONTRAST; CT OF THE HEAD WITHOUT CONTRAST; CTA OF THE NECK 03/29/2024 8:54 am; 03/29/2024 8:52 am: TECHNIQUE: CTA of the head/brain was performed without and with the administration of intravenous contrast. Multiplanar reformatted images are provided for review. MIP images are provided for review. Automated exposure control, iterative reconstruction, and/or weight based adjustment of the mA/kV was utilized to reduce the radiation dose to as low as reasonably achievable.; CT of the head was performed without the administration of intravenous contrast. Automated exposure control, iterative reconstruction, and/or weight based adjustment of the mA/kV was utilized to reduce the radiation dose to as low as reasonably achievable.; CTA of the neck was performed with the administration of intravenous contrast. Multiplanar reformatted images are provided for review. MIP images are provided for review. Stenosis of the internal carotid arteries measured using NASCET criteria. Automated exposure control, iterative reconstruction, and/or weight based adjustment of the mA/kV was utilized to reduce the radiation dose to as low as reasonably achievable. Noncontrast CT of the head with reconstructed 2-D images are also provided for review. COMPARISON: No prior imaging is available. Reports from previous imaging from 03/18/2024 and 03/19/2024 are available for review. HISTORY: ORDERING SYSTEM PROVIDED HISTORY: ams TECHNOLOGIST PROVIDED HISTORY: Reason for exam:->ams Additional Contrast?->1 What reading provider will be dictating this exam?->CRC; ORDERING SYSTEM PROVIDED HISTORY: headache, cva/bleed/trauma TECHNOLOGIST PROVIDED HISTORY: Has a "code stroke" or "stroke alert" been called?->No Reason for exam:->headache Decision Support Exception - unselect if not a suspected or confirmed emergency medical condition->Emergency Medical Condition ([place]) What reading provider will be dictating this exam?->CRC FINDINGS: CT HEAD: BRAIN/VENTRICLES: There is abnormal hypoattenuation involving the bilateral occipital lobes, left greater than right. There is no acute intracranial hemorrhage. No mass effect or midline shift is present. There is no ventriculomegaly. ORBITS: Limited evaluation of the orbits is unremarkable. SINUSES: The paranasal sinuses and mastoid air cells are clear. SOFT TISSUES/SKULL: No lytic or blastic osseous lesions are identified. CTA NECK: AORTIC ARCH/ARCH VESSELS: No dissection or arterial injury. No significant stenosis of the brachiocephalic or subclavian arteries. CAROTID ARTERIES: There is circumferential mural thickening involving the bilateral common carotid arteries and proximal internal carotid arteries without significant stenosis or dissection. VERTEBRAL ARTERIES: There is a severe stenosis with near occlusion of the origin of the left vertebral artery. The left vertebral artery is otherwise normal in appearance. There is a moderate stenosis at the junction of the right V1 and V2 segments. The right vertebral artery is otherwise normal. SOFT TISSUES: The lung apices are clear. No pathologically enlarged lymphadenopathy or soft tissue mass is identified. The salivary glands are normal. The thyroid gland is unremarkable. BONES: No lytic or blastic osseous lesions are identified. CTA HEAD: ANTERIOR CIRCULATION: There is a severe stenosis of the supraclinoid left internal carotid artery. There is a saccular 2 mm aneurysm directed laterally from the cavernous right internal carotid artery. Azygous anterior cerebral artery is present. No significant stenosis or occlusion. The middle cerebral arteries are normal. There is no significant stenosis or aneurysm. POSTERIOR CIRCULATION: There is atherosclerotic plaque within the distal vertebral arteries without significant stenosis evident. The basilar artery is normal. There is abrupt occlusion of the P1 segment of the left posterior cerebral artery. There is abrupt occlusion of the P2 segment of the right posterior cerebral artery. OTHER: No dural venous sinus thrombosis on this non-dedicated study. 1. Chronic right and subacute left parietooccipital infarcts. (Previously reported on an MRI of the brain from 03/19/2024 at an outside hospital). The report is available, the images are not available for direct comparison. 2. No new infarct or acute intracranial hemorrhage. 3. 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 4. 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 5. 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 6. 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 7. 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 8. Severe stenosis with near occlusion at the origin of the left vertebral artery. 9. Moderate stenosis of the junction of the V1 and V2 segments of the right vertebral artery. The above findings were discussed with SANGEETA Gonzalez at 9:45 a.m. on 03/29/2024. XR CHEST PORTABLE Result Date: 03/29/2024 EXAMINATION: ONE XRAY VIEW OF THE CHEST 03/29/2024 7:56 am COMPARISON: None. HISTORY: ORDERING SYSTEM PROVIDED HISTORY: ams TECHNOLOGIST PROVIDED HISTORY: Reason for exam:->ams Is the patient ?->No What reading provider will be dictating this exam?->CRC FINDINGS: Single AP upright portable chest demonstrate satisfactory expansion of the lungs which are clear. The cardiac silhouette appears unremarkable. There is no evidence of a pneumothorax. No acute cardiopulmonary disease. Recent Labs 03/29/24 0730 03/30/24 0638 03/31/24 1101 WBC 24.7* 20.0* 13.6* HGB 14.0 11.9* 12.7 PLT 376 362 367 Recent Labs 03/29/24 1738 03/30/24 0638 03/31/24 1101 NA 128* 138 135 K 4.4 4.5 4.4 CL 97 104 100 CO2 18* 19* 21 BUN 32* 29* 28* CREATININE 1.43* 1.25* 1.23* GLUCOSE 277* 174* 182* Recent Labs 03/29/24 0745 03/30/24 0638 BILITOT 0.7 0.3 ALKPHOS 223* 173* AST 36* 21 ALT 85* 55* Lab Results Component Value Date/Time PROTIME 14.0 04/03/2022 05:30 AM INR 1.1 04/03/2022 05:30 AM No results found for: "LITHIUM", "DILFRTOT", "VALPROATE" ASSESSMENT AND PLAN Bilateral occipital parietal strokes. The right one appears to be chronic and the right 1 quite large is subacute. 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 Findings based on patient's clinical presentation of bilateral parieto-occipital strokes and initially was able to function and see. This explains the ophthalmic examination that was done at [facility]. In any case the strokes appear to be secondary to multiple risk factors for cerebrovascular disease. MRI pending an MRA to see if there is ongoing basilar artery stenosis. 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 No extracranial stenosis identified on the MRA done at [facility] which is more reliable. Instructed nursing staff to feed her as she is not able to feed herself due to the blindness. 7/7 Bilateral occipital strokes. The right one is chronic the left 1 large parieto-occipital is acute to subacute. This has remained stable since hospitalization repeat CT scan done due to hemorrhagic transformation of the stroke on the MRI. Patient still needs to continue aspirin and Brilinta. Had a lengthy discussion with cardiology and given her age and the type of stroke I recommended a ANNY and eventually patient require loop recorder as high risk for atrial fibrillation the management of this likely changes if she is high risk for atrial fibrillation then anticoagulation be recommended. Patient also high risk for DVT likely to be expected for patient is going to be immobile due to blindness. Had a lengthy discussion with the sister regarding all the findings that we are seeing at this point and the expectation is long-term care as patient likely require help and there is no way to predict what her visual compensation is going to be at least for now. 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 No other large vessel disease identified to consider any other syndromes of concern. No fibromuscular dysplasia notable on all the studies that are available. Total time 50-minute Kamron Cool MD, AARON Diplomate, [place] [employer] Board Certified in Vascular Neurology Board Certified in Neuromuscular Medicine Certified in Neurorehabilitation Cardiology Follow up Note Subjective: No chest pain or shortness of breath. Headaches improved. Still with significant visual impairment. Troponin trending down Review of Systems: As noted manage Objective: BP 129/63 Pulse 67 Temp 98.8 F (37.1 C) (Oral) Resp 17 Ht 1.62 m (5' 3.78") Wt 107.5 kg (237 lb) SpO2 99% BMI 40.96 kg/m Constitutional: alert, cooperative, in no distress Eyes: Conjunctiva clear; no scleral icturus. PERRLA Respiratory: clear to auscultation bilaterally Musculoskeletal: No chest wall tenderness. No clubbing or cyanosis. Cardiovascular: regular rate and rhythm, S1, S2 normal, no murmur, click, rub or gallop. No carotid bruit. No JVD. Pulses 2+ and symmetric. GI: soft, non-tender, non-distended. Bowel sounds normal. No masses, no organomegaly MSK: extremities normal, atraumatic, no clubbing. No chest wall pain. Neurologic: + Blindness Skin: No rashes or lesions. No cyanosis. Intake/Output Summary (Last 24 hours) at 03/30/2024 1930 Last data filed at 03/30/2024 1750 Gross per 24 hour Intake 875 ml Output 1050 ml Net -175 ml Medications: ticagrelor, 90 mg, BID empagliflozin, 10 mg, Daily carvedilol, 6.25 mg, BID atorvastatin, 40 mg, Nightly aspirin EC, 81 mg, Daily insulin lispro, 0.05 Units/kg, TID WC insulin lispro, 0-8 Units, TID WC insulin lispro, 0-4 Units, Nightly cefTRIAXone (ROCEPHIN) IV, 1,000 mg, Q12H insulin glargine, 25 Units, Daily sodium chloride dextrose Recent Labs 03/29/24 0730 03/29/24 0745 03/29/24 1738 03/30/24 0638 HGB 14.0 -- -- 11.9* WBC 24.7* -- -- 20.0* PLT 376 -- -- 362 NA -- 132* 128* 138 K -- 4.2 4.4 4.5 CO2 -- 19* 18* 19* BUN -- 32* 32* 29* MG -- 2.3 -- -- C r 1.25 High-sensitivity troponin: 297, 293, 241, 170 EKG: My independent review reveals sinus rhythm. No significant ST-T wave changes. Telemetry: Not currently on telemetry Chest x-ray negative for acute process Echo (TTE) complete 03/29/2024 Interpretation Summary Left Ventricle: Normal left ventricular systolic function with a visually estimated EF of 50 - 55%. Left ventricle size is normal. Normal wall thickness. Normal wall motion. Diastolic dysfunction present with increased LAP with normal LV EF. Tricuspid Valve: The estimated RVSP is 31 mmHg. Left Atrium: Left atrium is mildly dilated. Image quality is adequate. CT of the head: Chronic right and subacute left parietooccipital infarcts. (Previously reported on an MRI of the brain from 03/19/2024 at an outside hospital). The report is available, the images are not available for direct comparison. 2. No new infarct or acute intracranial hemorrhage. 3. 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 4. 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 5. 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 6. 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 7. 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 8. Severe stenosis with near occlusion at the origin of the left vertebral artery. 9. Moderate stenosis of the junction of the V1 and V2 segments of the right vertebral artery. Echo at [facility] 03/17/24 Left Ventricle: Left ventricle size is normal. Mildly increased wall thickness. Normal left ventricular systolic function. EF by 2D Simpsons Biplane is 65%. See diagram for wall motion findings. Right Ventricle: Right ventricle size is normal. Normal systolic function. Mitral Valve: Not well visualized. Valve structure is normal. Moderate (2+) regurgitation. Left Atrium: Left atrium is mildly dilated. Left atrium size is mildly increased (LA volume index 35-41 mL/m2).LA Vol Index is 39 ml/m2. Cardiac cath: 03/17/24 at [facility] - Successful IVUS guided PCI of ostial to mid circumflex artery with deployment of 3.0 mm x 48 mm Synergy KINGSLEY (culprit lesion) - Successful IVUS guided PCI of ostial RCA with deployment of 4.0 mm x 12 mm Xience KINGSLEY - Medical therapy for mild to moderate disease of LAD and ramus as well as ostial LMT disease Assessment: Elevated troponin, suspect demand ischemia due to residual mild to moderate nonobstructive CAD in the LAD, ramus branch, and left main. Known CAD with recent IL, status post PCI/drug-eluting stents to circumflex and RCA (03/17/2024 at [facility]) History of cardiomyopathy, now recovered with normal LV systolic function, EF 50 to 55% Subacute left parietal occipital CVA, possibly related to recent cardiac catheterization. Hypertension Hyperlipidemia Diabetes mellitus type 2 COPD/tobacco abuse Obesity Principal Problem: Sepsis (HCC) Active Problems: CVA (cerebrovascular accident due to intracerebral hemorrhage) ([facility]) Elevated troponin Resolved Problems: * No resolved hospital problems. * Recommendations: Troponins continue trending down Continue aspirin and Brilinta without interruption for at least the next 6 months, ideally 1 year. Continue carvedilol, Jardiance, and statin. No plan for further ischemic workup at this time unless anginal symptoms develop especially given concern for recent thromboembolic phenomenon from cardiac catheterization (risk outweigh benefits at this time). May need to be considered for ANNY pending neurology recommendations. Thank you for allowing me to participate in your patient's cardiac care. Should you have questions, please do not hesitate to contact me. Fara Soto DO, FAC, [facility] Hospitalist Progress Note PCP: Luz Mcdermott, POISER - ELECTRICAL CAD DESIGNER Date of Admission: 03/29/2024 Chief Complaint: Bilateral occipital strokes Subjective: : Pt reports improvement in the headaches but is frustrated because she cannot see at all. NO chest pain, SOB, N,V. No focal motor weakness. Medications: Infusion Medications sodium chloride dextrose Scheduled Medications ticagrelor 90 mg Oral BID empagliflozin 10 mg Oral Daily carvedilol 6.25 mg Oral BID atorvastatin 40 mg Oral Nightly aspirin EC 81 mg Oral Daily insulin lispro 0.05 Units/kg SubCUTAneous TID WC insulin lispro 0-8 Units SubCUTAneous TID WC insulin lispro 0-4 Units SubCUTAneous Nightly cefTRIAXone (ROCEPHIN) IV 1,000 mg IntraVENous Q12H insulin glargine 25 Units SubCUTAneous Daily PRN Meds: sodium chloride flush, sodium chloride, polyethylene glycol, acetaminophen OR acetaminophen, glucose, dextrose bolus OR dextrose bolus, glucagon (rDNA), dextrose, oxyCODONE Intake/Output Summary (Last 24 hours) at 03/30/2024 1525 Last data filed at 03/30/2024 1008 Gross per 24 hour Intake 10 ml Output -- Net 10 ml Exam: BP 129/63 Pulse 67 Temp 98.8 F (37.1 C) (Oral) Resp 17 Ht 1.62 m (5' 3.78") Wt 107.5 kg (237 lb) SpO2 99% BMI 40.96 kg/m General appearance: alert, awake Lungs: clear to auscultation bilaterally, normal effort Heart: regular rate and rhythm, no murmur Abdomen: soft, nontender, nondistended, bowel sounds present, no masses Extremities: no edema, redness, tenderness in the calves. 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 She is able to move her eyes with intact EOMI Labs: Recent Labs 03/29/24 0730 03/30/24 0638 WBC 24.7* 20.0* HGB 14.0 11.9* HCT 40.7 35.6* PLT 376 362 Recent Labs 03/29/24 0745 03/29/24 0755 03/29/24 1738 03/30/24 0638 NA 132* -- 128* 138 K 4.2 -- 4.4 4.5 CL 97 -- 97 104 CO2 19* -- 18* 19* BUN 32* -- 32* 29* CREATININE 1.58* 1.6* 1.43* 1.25* CALCIUM 9.9 -- 8.8 9.3 Recent Labs 03/29/24 0745 03/30/24 0638 AST 36* 21 ALT 85* 55* BILITOT 0.7 0.3 ALKPHOS 223* 173* No results for input(s): "INR" in the last 72 hours. No results for input(s): "CKTOTAL", "TROPONINI" in the last 72 hours. Radiology: US RETROPERITONEAL LIMITED Final Result Unremarkable ultrasound of the kidneys. MRA HEAD WO CONTRAST Final Result Bilateral posterior cerebral artery occlusions again noted, corresponding to bilateral posterior cerebral infarct seen on the MRI study. MRI BRAIN WO CONTRAST Final Result 1. 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 The left-sided infarcts show some evidence of subacute hemorrhage. 2. Tiny acute/subacute left cerebellar lacunar infarct. 3. The findings were sent to the Radiology Results Communication Center at 1:11 pm on 03/30/2024 to be communicated to a licensed caregiver. CTA NECK W WO CONTRAST Final Result 1. Chronic right and subacute left parietooccipital infarcts. (Previously reported on an MRI of the brain from 03/19/2024 at an outside hospital). The report is available, the images are not available for direct comparison. 2. No new infarct or acute intracranial hemorrhage. 3. 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 4. 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 5. 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 6. 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 7. 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 8. Severe stenosis with near occlusion at the origin of the left vertebral artery. 9. Moderate stenosis of the junction of the V1 and V2 segments of the right vertebral artery. The above findings were discussed with SANGEETA Gonzalez at 9:45 a.m. on 03/29/2024. CTA HEAD W WO CONTRAST Final Result 1. Chronic right and subacute left parietooccipital infarcts. (Previously reported on an MRI of the brain from 03/19/2024 at an outside hospital). The report is available, the images are not available for direct comparison. 2. No new infarct or acute intracranial hemorrhage. 3. 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 4. 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 5. 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 6. 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 7. 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 8. Severe stenosis with near occlusion at the origin of the left vertebral artery. 9. Moderate stenosis of the junction of the V1 and V2 segments of the right vertebral artery. The above findings were discussed with SANGEETA Gonzalez at 9:45 a.m. on 03/29/2024. CT HEAD WO CONTRAST Final Result 1. Chronic right and subacute left parietooccipital infarcts. (Previously reported on an MRI of the brain from 03/19/2024 at an outside hospital). The report is available, the images are not available for direct comparison. 2. No new infarct or acute intracranial hemorrhage. 3. 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 4. 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 5. 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 6. 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 7. 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 8. Severe stenosis with near occlusion at the origin of the left vertebral artery. 9. Moderate stenosis of the junction of the V1 and V2 segments of the right vertebral artery. The above findings were discussed with SANGEETA Gonzalez at 9:45 a.m. on 03/29/2024. XR CHEST PORTABLE Final Result No acute cardiopulmonary disease. CT HEAD WO CONTRAST (Results Pending) Assessment/Plan: Active Hospital Problems Diagnosis Date Noted Sepsis ([facility]) [A41.9] 03/29/2024 CVA (cerebrovascular accident due to intracerebral hemorrhage) ([facility]) [I61.9] 03/29/2024 Elevated troponin [R79.89] 03/29/2024 *Large bilateral acute/subacute posterior cerebral artery infarcts, MRI reports noed showing larger infarct on the left involving the bilateral occipital lobes and extending into the left posterior temporal lobe. The left-sided infarcts show some evidence of subacute hemorrhage. The findings were reviewed with Dr. Cool and he feels that the hemorrhage is small and is most likely related to ischemic stroke transformation. Ok to continue aspirin and brillinta but hold lovenox. Repeat CT head in the morning. Continue high dose statin. May need ANNY on Monday *Sepsis present on admission. Likely source is urinary.Noted to have leukocytosis and evidence of UTI on urinalysis. *UTI. Continue IV Rocephin and follow up blood and urine cultures. *VERONA/CKD. Improved, creatinine almost back to baseline *Elevated troponin. Recent IL. Recent stenting. Patient is on dual antiplatelets therapy as well as beta-nando. Her troponin is flat. No chest pain. Seen by cardiology and recommended conservative management. Continue DAPT, coreg and lipitor *Elevated liver enzymes of unknown etiology. Showed some improvement. US liver on 03/26/2024 didn't show any significant pathology *Diabetes with hyperglycemia. On lantus 25 units daily, jardiance and pre meal lispro cover with ISS. *Multiple other medical issues not listed above. Diet: ADULT DIET; Regular Code Status: Full Code Mayraetn assisted by CANDY STARCH MOLD PRINTERJerardo, to eat. Ate breakfast late and consumed 100 %. Also ate 100 % of lunch. In bed resting with eyes closed. Physical Therapy Missed Treatment Facility/Department: [facility] MED SURG [id number] NAME: Neil Wellington : 1970 (53 y.o.) Account: [id number] Gender: female Orders received, chart reviewed. Attempted PT evaluation at 1312, patient with Nsg. Eating lunch. Will follow and attempt PT evaluation again at earliest availability. Rosita Jack, PT, 03/30/24 at 1:10 PM Neurology Follow up SUBJECTIVE: Patient quite frustrated as she cannot see and she was not able to eat. Headache does not appear to be a prominent symptom at this time. Current Facility-Administered Medications Medication Dose Route Frequency Provider Last Rate Last Admin sodium chloride flush 0.9 % injection 10 mL 10 mL IntraVENous PRN Quique Nugent MD 10 mL at 03/30/24 1008 0.9 % sodium chloride infusion IntraVENous PRN Quique Nugent MD enoxaparin (LOVENOX) injection 40 mg 40 mg SubCUTAneous Daily Quique Nugent MD 40 mg at 03/30/24 1007 polyethylene glycol (GLYCOLAX) packet 17 g 17 g Oral Daily PRN Quique Nugent MD acetaminophen (TYLENOL) tablet 650 mg 650 mg Oral Q6H PRN Quique Nugent MD Or acetaminophen (TYLENOL) suppository 650 mg 650 mg Rectal Q6H PRN Quique Nuegnt MD ticagrelor (BRILINTA) tablet 90 mg 90 mg Oral BID Quique Nugent MD 90 mg at 03/30/241006 empagliflozin (JARDIANCE) tablet 10 mg 10 mg Oral Daily Quique Nugent MD 10 mg at 03/30/241006 carvedilol (COREG) tablet 6.25 mg 6.25 mg Oral BID Quique Nugent MD 6.25 mg at 03/30/241015 atorvastatin (LIPITOR) tablet 40 mg 40 mg Oral Nightly Quique Nugent MD 40 mg at 03/29/242055 aspirin EC tablet 81 mg 81 mg Oral Daily Quique Nugent MD 81 mg at 03/30/241006 insulin lispro (HUMALOG,ADMELOG) injection vial 5 Units 0.05 Units/kg SubCUTAneous TID WC Quique Nugent MD 5 Units at 03/30/24 1008 glucose chewable tablet 16 g 4 tablet Oral PRN Quique Nugent MD dextrose bolus 10% 125 mL 125 mL IntraVENous PRN Quique Nugent MD Or dextrose bolus 10% 250 mL 250 mL IntraVENous PRN Quique Nugent MD glucagon injection 1 mg 1 mg SubCUTAneous PRN Quique Nugent MD dextrose 10 % infusion IntraVENous Continuous PRN Quique Nugent MD insulin lispro (HUMALOG,ADMELOG) injection vial 0-8 Units 0-8 Units SubCUTAneous TID WC Quique Nugent MD 4 Units at 03/29/24 1737 insulin lispro (HUMALOG,ADMELOG) injection vial 0-4 Units 0-4 Units SubCUTAneous Nightly Quique Nugent MD 4 Units at 03/29/24 2056 cefTRIAXone (ROCEPHIN) 1,000 mg in sodium chloride 0.9 % 50 mL IVPB (mini-bag) 1,000 mg IntraVENous Q12H Quique Nugent MD Stopped at 03/30/24 0341 oxyCODONE (ROXICODONE) immediate release tablet 5 mg 5 mg Oral Q4H PRN Quique Nugent MD 5 mg at 03/29/24 1459 insulin glargine (LANTUS) injection vial 25 Units 25 Units SubCUTAneous Daily Quique Nugent MD 25 Units at 03/30/24 1008 PHYSICAL EXAM: BP (!) 151/81 Pulse 69 Temp 98.6 F (37 C) (Oral) Resp 17 Ht 1.62 m (5' 3.78") Wt 107.5 kg (237 lb) SpO2 100% BMI 40.96 kg/m General Appearance: Skin: normal CVS - Normal sounds, No murmurs , No carotid Bruits RS -CTA Abdomen Soft, BS present Review of Systems Mental Status Exam: Level of Alertness: awake Orientation: person, place, time Attention/Concentration: normal Language: normal Funduscopic Exam: Cranial Nerves Cranial nerve II patient completely blind Cranial nerve III Pupils: equal, round, reactive to light Cranial nerves III, IV, Extraocular Movements: intact Cranial nerve XI Shoulder shrug: intact Cranial nerve XII Tongue movement: normal Motor: Overall weakness of 4/5 Drift: absent Motor exam is symmetrical 4 out of 5 all extremities bilaterally Tone: normal Abnormal Movements: absent Sensory: Pinprick Right Upper Extremity: normal Left Upper Extremity: normal Right Lower Extremity: normal Left Lower Extremity: normal Vibration Touch Proprioception Coordination: Unable to perform as no vision F Gait: Casual: Gait is deferred. Reflexes: Deep Tendon Reflexes: Reflexes are 2 + Plantar response: Right: downgoing Left: downgoing Vascular: Cardiac Exam: normal Echo (TTE) complete (PRN contrast/bubble/strain/3D) Result Date: 03/29/2024 Left Ventricle: Normal left ventricular systolic function with a visually estimated EF of 50 - 55%. Left ventricle size is normal. Normal wall thickness. Normal wall motion. Diastolic dysfunction present with increased LAP with normal LV EF. Tricuspid Valve: The estimated RVSP is 31 mmHg. Left Atrium: Left atrium is mildly dilated. Image quality is adequate. CT HEAD WO CONTRAST Result Date: 03/29/2024 EXAMINATION: CTA OF THE HEAD WITHOUT AND WITH CONTRAST; CT OF THE HEAD WITHOUT CONTRAST; CTA OF THE NECK 03/29/2024 8:54 am; 03/29/2024 8:52 am: TECHNIQUE: CTA of the head/brain was performed without and with the administration of intravenous contrast. Multiplanar reformatted images are provided for review. MIP images are provided for review. Automated exposure control, iterative reconstruction, and/or weight based adjustment of the mA/kV was utilized to reduce the radiation dose to as low as reasonably achievable.; CT of the head was performed without the administration of intravenous contrast. Automated exposure control, iterative reconstruction, and/or weight based adjustment of the mA/kV was utilized to reduce the radiation dose to as low as reasonably achievable.; CTA of the neck was performed with the administration of intravenous contrast. Multiplanar reformatted images are provided for review. MIP images are provided for review. Stenosis of the internal carotid arteries measured using NASCET criteria. Automated exposure control, iterative reconstruction, and/or weight based adjustment of the mA/kV was utilized to reduce the radiation dose to as low as reasonably achievable. Noncontrast CT of the head with reconstructed 2-D images are also provided for review. COMPARISON: No prior imaging is available. Reports from previous imaging from 03/18/2024 and 03/19/2024 are available for review. HISTORY: ORDERING SYSTEM PROVIDED HISTORY: ams TECHNOLOGIST PROVIDED HISTORY: Reason for exam:->ams Additional Contrast?->1 What reading provider will be dictating this exam?->CRC; ORDERING SYSTEM PROVIDED HISTORY: headache, cva/bleed/trauma TECHNOLOGIST PROVIDED HISTORY: Has a "code stroke" or "stroke alert" been called?->No Reason for exam:->headache Decision Support Exception - unselect if not a suspected or confirmed emergency medical condition->Emergency Medical Condition ([place]) What reading provider will be dictating this exam?->CRC FINDINGS: CT HEAD: BRAIN/VENTRICLES: There is abnormal hypoattenuation involving the bilateral occipital lobes, left greater than right. There is no acute intracranial hemorrhage. No mass effect or midline shift is present. There is no ventriculomegaly. ORBITS: Limited evaluation of the orbits is unremarkable. SINUSES: The paranasal sinuses and mastoid air cells are clear. SOFT TISSUES/SKULL: No lytic or blastic osseous lesions are identified. CTA NECK: AORTIC ARCH/ARCH VESSELS: No dissection or arterial injury. No significant stenosis of the brachiocephalic or subclavian arteries. CAROTID ARTERIES: There is circumferential mural thickening involving the bilateral common carotid arteries and proximal internal carotid arteries without significant stenosis or dissection. VERTEBRAL ARTERIES: There is a severe stenosis with near occlusion of the origin of the left vertebral artery. The left vertebral artery is otherwise normal in appearance. There is a moderate stenosis at the junction of the right V1 and V2 segments. The right vertebral artery is otherwise normal. SOFT TISSUES: The lung apices are clear. No pathologically enlarged lymphadenopathy or soft tissue mass is identified. The salivary glands are normal. The thyroid gland is unremarkable. BONES: No lytic or blastic osseous lesions are identified. CTA HEAD: ANTERIOR CIRCULATION: There is a severe stenosis of the supraclinoid left internal carotid artery. There is a saccular 2 mm aneurysm directed laterally from the cavernous right internal carotid artery. Azygous anterior cerebral artery is present. No significant stenosis or occlusion. The middle cerebral arteries are normal. There is no significant stenosis or aneurysm. POSTERIOR CIRCULATION: There is atherosclerotic plaque within the distal vertebral arteries without significant stenosis evident. The basilar artery is normal. There is abrupt occlusion of the P1 segment of the left posterior cerebral artery. There is abrupt occlusion of the P2 segment of the right posterior cerebral artery. OTHER: No dural venous sinus thrombosis on this non-dedicated study. 1. Chronic right and subacute left parietooccipital infarcts. (Previously reported on an MRI of the brain from 03/19/2024 at an outside hospital). The report is available, the images are not available for direct comparison. 2. No new infarct or acute intracranial hemorrhage. 3. 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 4. 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 5. 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 6. 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 7. 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 8. Severe stenosis with near occlusion at the origin of the left vertebral artery. 9. Moderate stenosis of the junction of the V1 and V2 segments of the right vertebral artery. The above findings were discussed with SANGEETA Gonzalez at 9:45 a.m. on 03/29/2024. CTA NECK W WO CONTRAST Result Date: 03/29/2024 EXAMINATION: CTA OF THE HEAD WITHOUT AND WITH CONTRAST; CT OF THE HEAD WITHOUT CONTRAST; CTA OF THE NECK 03/29/2024 8:54 am; 03/29/2024 8:52 am: TECHNIQUE: CTA of the head/brain was performed without and with the administration of intravenous contrast. Multiplanar reformatted images are provided for review. MIP images are provided for review. Automated exposure control, iterative reconstruction, and/or weight based adjustment of the mA/kV was utilized to reduce the radiation dose to as low as reasonably achievable.; CT of the head was performed without the administration of intravenous contrast. Automated exposure control, iterative reconstruction, and/or weight based adjustment of the mA/kV was utilized to reduce the radiation dose to as low as reasonably achievable.; CTA of the neck was performed with the administration of intravenous contrast. Multiplanar reformatted images are provided for review. MIP images are provided for review. Stenosis of the internal carotid arteries measured using NASCET criteria. Automated exposure control, iterative reconstruction, and/or weight based adjustment of the mA/kV was utilized to reduce the radiation dose to as low as reasonably achievable. Noncontrast CT of the head with reconstructed 2-D images are also provided for review. COMPARISON: No prior imaging is available. Reports from previous imaging from 03/18/2024 and 03/19/2024 are available for review. HISTORY: ORDERING SYSTEM PROVIDED HISTORY: ams TECHNOLOGIST PROVIDED HISTORY: Reason for exam:->ams Additional Contrast?->1 What reading provider will be dictating this exam?->CRC; ORDERING SYSTEM PROVIDED HISTORY: headache, cva/bleed/trauma TECHNOLOGIST PROVIDED HISTORY: Has a "code stroke" or "stroke alert" been called?->No Reason for exam:->headache Decision Support Exception - unselect if not a suspected or confirmed emergency medical condition->Emergency Medical Condition ([place]) What reading provider will be dictating this exam?->CRC FINDINGS: CT HEAD: BRAIN/VENTRICLES: There is abnormal hypoattenuation involving the bilateral occipital lobes, left greater than right. There is no acute intracranial hemorrhage. No mass effect or midline shift is present. There is no ventriculomegaly. ORBITS: Limited evaluation of the orbits is unremarkable. SINUSES: The paranasal sinuses and mastoid air cells are clear. SOFT TISSUES/SKULL: No lytic or blastic osseous lesions are identified. CTA NECK: AORTIC ARCH/ARCH VESSELS: No dissection or arterial injury. No significant stenosis of the brachiocephalic or subclavian arteries. CAROTID ARTERIES: There is circumferential mural thickening involving the bilateral common carotid arteries and proximal internal carotid arteries without significant stenosis or dissection. VERTEBRAL ARTERIES: There is a severe stenosis with near occlusion of the origin of the left vertebral artery. The left vertebral artery is otherwise normal in appearance. There is a moderate stenosis at the junction of the right V1 and V2 segments. The right vertebral artery is otherwise normal. SOFT TISSUES: The lung apices are clear. No pathologically enlarged lymphadenopathy or soft tissue mass is identified. The salivary glands are normal. The thyroid gland is unremarkable. BONES: No lytic or blastic osseous lesions are identified. CTA HEAD: ANTERIOR CIRCULATION: There is a severe stenosis of the supraclinoid left internal carotid artery. There is a saccular 2 mm aneurysm directed laterally from the cavernous right internal carotid artery. Azygous anterior cerebral artery is present. No significant stenosis or occlusion. The middle cerebral arteries are normal. There is no significant stenosis or aneurysm. POSTERIOR CIRCULATION: There is atherosclerotic plaque within the distal vertebral arteries without significant stenosis evident. The basilar artery is normal. There is abrupt occlusion of the P1 segment of the left posterior cerebral artery. There is abrupt occlusion of the P2 segment of the right posterior cerebral artery. OTHER: No dural venous sinus thrombosis on this non-dedicated study. 1. Chronic right and subacute left parietooccipital infarcts. (Previously reported on an MRI of the brain from 03/19/2024 at an outside hospital). The report is available, the images are not available for direct comparison. 2. No new infarct or acute intracranial hemorrhage. 3. 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 4. 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 5. 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 6. 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 7. 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 8. Severe stenosis with near occlusion at the origin of the left vertebral artery. 9. Moderate stenosis of the junction of the V1 and V2 segments of the right vertebral artery. The above findings were discussed with SANGEETA Gonzalez at 9:45 a.m. on 03/29/2024. CTA HEAD W WO CONTRAST Result Date: 03/29/2024 EXAMINATION: CTA OF THE HEAD WITHOUT AND WITH CONTRAST; CT OF THE HEAD WITHOUT CONTRAST; CTA OF THE NECK 03/29/2024 8:54 am; 03/29/2024 8:52 am: TECHNIQUE: CTA of the head/brain was performed without and with the administration of intravenous contrast. Multiplanar reformatted images are provided for review. MIP images are provided for review. Automated exposure control, iterative reconstruction, and/or weight based adjustment of the mA/kV was utilized to reduce the radiation dose to as low as reasonably achievable.; CT of the head was performed without the administration of intravenous contrast. Automated exposure control, iterative reconstruction, and/or weight based adjustment of the mA/kV was utilized to reduce the radiation dose to as low as reasonably achievable.; CTA of the neck was performed with the administration of intravenous contrast. Multiplanar reformatted images are provided for review. MIP images are provided for review. Stenosis of the internal carotid arteries measured using NASCET criteria. Automated exposure control, iterative reconstruction, and/or weight based adjustment of the mA/kV was utilized to reduce the radiation dose to as low as reasonably achievable. Noncontrast CT of the head with reconstructed 2-D images are also provided for review. COMPARISON: No prior imaging is available. Reports from previous imaging from 03/18/2024 and 03/19/2024 are available for review. HISTORY: ORDERING SYSTEM PROVIDED HISTORY: ams TECHNOLOGIST PROVIDED HISTORY: Reason for exam:->ams Additional Contrast?->1 What reading provider will be dictating this exam?->CRC; ORDERING SYSTEM PROVIDED HISTORY: headache, cva/bleed/trauma TECHNOLOGIST PROVIDED HISTORY: Has a "code stroke" or "stroke alert" been called?->No Reason for exam:->headache Decision Support Exception - unselect if not a suspected or confirmed emergency medical condition->Emergency Medical Condition (MA) What reading provider will be dictating this exam?->CRC FINDINGS: CT HEAD: BRAIN/VENTRICLES: There is abnormal hypoattenuation involving the bilateral occipital lobes, left greater than right. There is no acute intracranial hemorrhage. No mass effect or midline shift is present. There is no ventriculomegaly. ORBITS: Limited evaluation of the orbits is unremarkable. SINUSES: The paranasal sinuses and mastoid air cells are clear. SOFT TISSUES/SKULL: No lytic or blastic osseous lesions are identified. CTA NECK: AORTIC ARCH/ARCH VESSELS: No dissection or arterial injury. No significant stenosis of the brachiocephalic or subclavian arteries. CAROTID ARTERIES: There is circumferential mural thickening involving the bilateral common carotid arteries and proximal internal carotid arteries without significant stenosis or dissection. VERTEBRAL ARTERIES: There is a severe stenosis with near occlusion of the origin of the left vertebral artery. The left vertebral artery is otherwise normal in appearance. There is a moderate stenosis at the junction of the right V1 and V2 segments. The right vertebral artery is otherwise normal. SOFT TISSUES: The lung apices are clear. No pathologically enlarged lymphadenopathy or soft tissue mass is identified. The salivary glands are normal. The thyroid gland is unremarkable. BONES: No lytic or blastic osseous lesions are identified. CTA HEAD: ANTERIOR CIRCULATION: There is a severe stenosis of the supraclinoid left internal carotid artery. There is a saccular 2 mm aneurysm directed laterally from the cavernous right internal carotid artery. Azygous anterior cerebral artery is present. No significant stenosis or occlusion. The middle cerebral arteries are normal. There is no significant stenosis or aneurysm. POSTERIOR CIRCULATION: There is atherosclerotic plaque within the distal vertebral arteries without significant stenosis evident. The basilar artery is normal. There is abrupt occlusion of the P1 segment of the left posterior cerebral artery. There is abrupt occlusion of the P2 segment of the right posterior cerebral artery. OTHER: No dural venous sinus thrombosis on this non-dedicated study. 1. Chronic right and subacute left parietooccipital infarcts. (Previously reported on an MRI of the brain from 03/19/2024 at an outside hospital). The report is available, the images are not available for direct comparison. 2. No new infarct or acute intracranial hemorrhage. 3. 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 4. 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 5. 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 6. 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 7. 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 8. Severe stenosis with near occlusion at the origin of the left vertebral artery. 9. Moderate stenosis of the junction of the V1 and V2 segments of the right vertebral artery. The above findings were discussed with SANGEETA Gonzalez at 9:45 a.m. on 03/29/2024. XR CHEST PORTABLE Result Date: 03/29/2024 EXAMINATION: ONE XRAY VIEW OF THE CHEST 03/29/2024 7:56 am COMPARISON: None. HISTORY: ORDERING SYSTEM PROVIDED HISTORY: ams TECHNOLOGIST PROVIDED HISTORY: Reason for exam:->ams Is the patient ?->No What reading provider will be dictating this exam?->CRC FINDINGS: Single AP upright portable chest demonstrate satisfactory expansion of the lungs which are clear. The cardiac silhouette appears unremarkable. There is no evidence of a pneumothorax. No acute cardiopulmonary disease. Recent Labs 03/29/24 0730 03/30/24 0638 WBC 24.7* 20.0* HGB 14.0 11.9* PLT 376 362 Recent Labs 03/29/24 0745 03/29/24 0755 03/29/24 1738 03/30/24 0638 NA 132* -- 128* 138 K 4.2 -- 4.4 4.5 CL 97 -- 97 104 CO2 19* -- 18* 19* BUN 32* -- 32* 29* CREATININE 1.58* 1.6* 1.43* 1.25* GLUCOSE 206* -- 277* 174* Recent Labs 03/29/24 0745 03/30/24 0638 BILITOT 0.7 0.3 ALKPHOS 223* 173* AST 36* 21 ALT 85* 55* Lab Results Component Value Date/Time PROTIME 14.0 04/03/2022 05:30 AM INR 1.1 04/03/2022 05:30 AM No results found for: "LITHIUM", "DILFRTOT", "VALPROATE" ASSESSMENT AND PLAN Bilateral occipital parietal strokes. The right one appears to be chronic and the right 1 quite large is subacute. 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 Findings based on patient's clinical presentation of bilateral parieto-occipital strokes and initially was able to function and see. This explains the ophthalmic examination that was done at [facility]. In any case the strokes appear to be secondary to multiple risk factors for cerebrovascular disease. MRI pending an MRA to see if there is ongoing basilar artery stenosis. 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 No extracranial stenosis identified on the MRA done at [facility] which is more reliable. Instructed nursing staff to feed her as she is not able to feed herself due to the blindness. Kamron Cool MD, FAHA Diplomate, [place] Board [employer]iatry & Neurology Board Certified in Vascular Neurology Board Certified in Neuromuscular Medicine Certified in Neurorehabilitation [facility] OCCUPATIONAL [facility]Y EVALUATION - ACUTE NAME: Neil [place] : 1970 (53 y.o.) CODE STATUS: Full Code Room: W292/W292-01 Date of Service: 03/29/2024 Patient Diagnosis(es): CVA (cerebrovascular accident due to intracerebral hemorrhage) (HCC) [I61.9] Sepsis secondary to UTI (HCC) [A41.9, N39.0] History of non-ST elevation myocardial infarction (NSTEMI) [I25.2] Sepsis (HCC) [A41.9] Acute nonintractable headache, unspecified headache type [R51.9] Cerebrovascular accident (CVA), unspecified mechanism (HCC) [I63.9] Cerebral infarction due to posterior cerebral artery occlusion, unspecified blood vessel laterality ([facility]) [I63.539] Systolic congestive heart failure, unspecified HF chronicity ([facility]) [I50.20] Patient Active Problem List Diagnosis Date Noted Psoriatic arthritis ([facility]) 11/30/2022 Chronic systolic (congestive) heart failure 11/30/2022 Type 2 diabetes mellitus without complication, without long-term current use of insulin ([facility]) 08/17/2022 New onset of congestive heart failure ([facility]) 04/03/2022 Sepsis ([facility]) 03/29/2024 CVA (cerebrovascular accident due to intracerebral hemorrhage) ([facility]) 03/29/2024 Past Medical History: Diagnosis Date Diabetes mellitus ([facility]) Hypertension History reviewed. No pertinent surgical history. Restrictions Restrictions/Precautions: Fall Risk, Bed Alarm, Other (comment) (new onset of blindness) Safety Devices: Safety Devices Type of Devices: All fall risk precautions in place Patient's date of confirmed: Yes General: Chart Reviewed: Yes Subjective Subjective: "I can't see" Pain at start of treatment: No Pain at end of treatment: No Prior Level of Function: Social/Functional History Lives With: (Patient was in a NH for about 1 day prior to this hospitalization. Prior to that per visitor in the room reported [facility] and then went to [facility] for about one day) Type of Home: Facility Home Layout: One level (layout/equipment per facility.) Bathroom Toilet: Standard Bathroom Accessibility: Accessible Home Equipment: None Has the patient had two or more falls in the past year or any fall with injury in the past year?: Unknown Receives Help From: Other (comment) (snf staff.) ADL Assistance: Needs assistance (per halfway SBA with ambulation and adl's since the pt is visually impaired.) Homemaking Responsibilities: No Ambulation Assistance: Needs assistance (sba) Active Jewel Stripper: No Occupation: On disability Additional Comments: PLOF was difficult to obtain as patient was unable to report OBJECTIVE: Orientation Status: Orientation Overall Orientation Status: Impaired Orientation Level: Disoriented to place;Disoriented to time;Disoriented to situation Observation: Observation/Palpation Posture: Fair Observation: Patient exhibits decreased ability to focus and often defers questions and reports an inability to state answers to questions asks Cognition Status: Cognition Cognition Comment: Patient had difficulty with attending to directions and then following through with information. She frequently reported "I don't know" when asked simple question about her PLOF Perception Status: Perception Overall Perceptual Status: (Unable to assess due to vision impairments) Vision and Hearing Status: Vision Vision Exceptions: Legally blind (new onset of blindness) Hearing Hearing: Within functional limits Vision - Basic Assessment Prior Vision: Blind Visual Field Cut: Not tested Vision Comments: bright light was turned on in patient's room but it did not appear to make a difference for patient's ability to see GROSS ASSESSMENT AROM/PROM: AROM: Generally decreased, functional PROM: Generally decreased, functional UE STRENGTH: Strength: Generally decreased, functional UE COORDINATION: Coordination: Generally decreased, functional UE TONE: Tone: Normal UE SENSATION: Sensation: (NT) Hand Dominance: Hand Dominance Hand Dominance: Right ADL Status: ADL Feeding: Dependent/Total Feeding Skilled Clinical Factors: visitor mentioned that she was feeding patient because with new onset of decreased vision patient is unable to feed herself Grooming: Minimal assistance;Setup Grooming Skilled Clinical Factors: Following set up including placing soap on patient's hands and turning the water on patient was able to wash her hands with min assist while standing at the sink. Patient was able to use mouthwash for oral cleansing with min assist to maintain balance and to identify the exact location of the sink UE Dressing: Based on clinical judgement;Moderate assistance;Verbal cueing LE Dressing: Based on clinical judgement;Dependent/Total Toileting Skilled Clinical Factors: Nursing completed just prior to therapist arrival Functional Mobility: Minimal assistance Toilet Transfers Toilet - Technique: Ambulating Toilet Transfer: Minimal assistance Toilet Transfers Comments: observed patient going to the bathroom with RN Functional Mobility: Transfers Sit to stand: Minimal assistance Stand to sit: Minimal assistance Patient ambulated to/from sink with Handheld assist at Min A level. Bed Mobility Bed mobility Supine to Sit: Stand by assistance Sit to Supine: Stand by assistance Scooting: Minimal assistance Seated and Standing Balance: Balance Sitting: With support Standing: With support Functional Endurance: Activity Tolerance Activity Tolerance: Patient Tolerated treatment well D/C Recommendations: OT D/C RECOMMENDATIONS REQUIRES OT FOLLOW-UP: Yes Equipment Recommendations: OT Equipment Recommendations Other: to be assessed OT Education: Patient Education Education Given To: Patient (visitor) Education Provided: Plan of Care;Role of Therapy Education Method: Verbal Barriers to Learning: Cognition;Vision Education Outcome: Continued education needed OT Follow Up: OT D/C RECOMMENDATIONS REQUIRES OT FOLLOW-UP: Yes Assessment/Discharge Disposition: Assessment: Patient is a 53 year old female with recent admission to a SNF prior to CVA with loss of vision and decerased ability to perform self care. Patient will benefit from occupational therapy to address the above stated issues Performance deficits / Impairments: Decreased functional mobility , Decreased vision/visual deficit, Decreased posture, Decreased cognition, Decreased ADL status, Decreased coordination, Decreased high-level IADLs, Decreased balance, Decreased endurance, Decreased safe awareness Prognosis: Guarded Discharge Recommendations: Continue to assess pending progress Decision Making: High Complexity History: intensive chart review Exam: 10 areas of deficit Assistance / Modification: max modifcation due to vision [facility] ([facility]) Self care Score How much help is needed for putting on and taking off regular lower body clothing?: Total How much help is needed for bathing (which includes washing, rinsing, drying)?: A Lot How much help is needed for toileting (which includes using toilet, bedpan, or urinal)?: A Lot How much help is needed for putting on and taking off regular upper body clothing?: A Lot How much help is needed for taking care of personal grooming?: A Lot How much help for eating meals?: Total [facility] Inpatient Daily Activity Raw Score: 10 [facility] Inpatient ADL T-Scale Score : 27.31 ADL Inpatient CMS 0-100% Score: 74.7 Therapy nino for assistance levels - Independent/Mod I = Pt. is able to perform task with no assistance but may require a device Stand by assistance = Pt. does not perform task at an independent level but does not need physical assistance, requires verbal cues Minimal, Moderate, Maximal Assistance = Pt. requires physical assistance (25%, 50%, 75% assist from helper) for task but is able to actively participate in task Dependent = Pt. requires total assistance with task and is not able to actively participate with task completion Plan: Occupational Therapy Plan Times Per Week: 1-4 Therapy Duration: (acute length of stay) Current Treatment Recommendations: Strengthening, Equipment evaluation, education, & procurement, Patient/Caregiver education & training, Balance training, Safety education & training, Cognitive/Perceptual training, Self-Care / ADL, Cognitive reorientation, Coordination training, Endurance training Additional Comments: low vision training Goals: Patient will: - Improve functional endurance to tolerate/complete 15-30 mins of ADL's - Be supervision in UB ADLs - Be min assist in LB ADLs - Be supervision in ADL transfers without LOB - Be supervision in toileting tasks - Improve B UE strength and endurance to WFL in order to participate in self-care activities as projected. - Sequence self-care tasks with min verbal cues - Other : Feed herself after set up with verbal cues Patient Goal: Patient goals : Patient was unable to state a goal during the eval Discussed and agreed upon: Yes Comments: Therapy Time: Individual Time In 1330 Time Out 1350 Minutes 20 Eval: 20 minutes Electronically signed by: DONNY Watkins/Yumiko, 03/29/2024, 3:05 PM documented in this encounter [facility] 03-27-2024 Nurse Note Report called to Leonides Monzon. Patient's belongings gathered and with patient at bedside. YESSI and AVS in chart. Dr. Camara came to patient room and assessed patient. He states no new neurological deficit. I informed him that patient ALT/AST had been trending up. He states he reviewed patient chart and okay to give Tylenol. I went to patients room and she was sleeping, awoke easily and took Tylenol. Safety measures maintained. Continuous tele monitoring in progress. She denies further needs at this time. Patients brother Junaid visited late this shift. Patient gave me verbal permission to discuss her care, medical history and plans with her brother and that she wants he to help make decisions in regards to her discharge. Junaid had to leave, but I spoke with him on the phone. He states that he and the rest of the patients family live about an hour away in [place] and would like for patient to be discharged to somewhere closer to them if possible, because she has no family around her, and he feels that most of the people that live around her are just using her. He states their mother doesn't drive so it would be difficult to be involved in patients care. If possible he would like to see if she could go to [facility] instead of [facility]. I confirmed his contact information, and made him the primary contact in the chart based on patient request and his agreement to assist with patient care. Dr. Ace Cam notified that patients ALT/AST labs continue to elevate, and patient continues to take Tylenol prn. Dr. Cam acknowledged, no new orders received. Patient awakens easily, resting in bed, but adamantly refuses am blood draw, despite encouragement. Safety measures maintained. Call light in reach. Patient arrived to [facility] from [facility]. Vitals obtained, heart monitor on patient. Call light within reach, bed alarm on. documented in this encounter [facility] 03-27-2024 Miscellaneous Notes Patient Choice Patient Name: NEIL WELLINGTON Date of : 1970 All Providers Sent Referral Name: [facility] ([facility]AN Member) Phone: [phone] Address: [address] [place] [address] Name: [facility] Address: [address] [place] [address] Name: [facility] Phone: [phone] Address: [address] [place] [address] Name: Leonides Monzon Phone: [phone] Address: [address] [place] [address] [address] [place] [address] Name: [facility] Phone: [phone] Address: [address] [place] [address] Name: [facility] Phone: [phone] Address: [address] [place] [address] Name: [facility] Phone: [phone] Address: [address] [place] [address] Discharge med list transmitted to [facility] via [facility] per [facility] request. 7000 completed in [facility] per T[facility] request. Facility notified via [facility]. DC orders, MAR, and 7000 tasked to be sent to [facility] via [facility]. Per TCC pt is going to be dc'd today to [facility] at a snf loc. Transportation set up with [employer] and [employer] claimed the trip. 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 Informed director of pulmonary unit, TCC, Tian Anders, pt informed, facility via careport, and pt's mom Jessica. The patient is Moderately Stable - Low risk of patient condition declining or worsening The patient's goals for the shift include safety and rest The clinical goals for the shift include safety and rest Called to bedside by nursing d/t complaints of headaches and visual field deficits. Known visual deficits for 1-2 weeks prior to admission. MRI obtained on 03/19/2024 consistent with acute infarct in the posterior temporal and occipital lobes. On initial stroke neurologist examination, documented complete hemianopia. She was evaluated by ophthalmology on 03/21 with recommendation for formal visual field testing as outpatient. Patient unable to provide any insight regarding timing of visual changes or worsening of symptoms. She at one point states that her vision has been altered since she got here but later states that her vision worsened today. She is unable to provide further details regarding the nature of her visual abnormalities (blurry versus black etc). Extraoccular motions intact during exams. NIHSS completed with score of 4 for aphasia and visual field deficits. She was unable to answer her cell phone d/t reported visual deficits, but notably did set water jug on table without apparent difficulty. She additionally complains of continued headache. 10/10 headache reported overnight which was alleviated with Tylenol. Discussed with attending physician, and d/t inconsistency of exam, and worsening headache over past day, will obtain non-contrast CT scan. Alice Harper DO, RD 03/26/24 The patient is Moderately Unstable - Medium risk of patient condition declining or worsening The patient's goals for the shift include rest and safety The clinical goals for the shift include remain CP free, remain free of injury, remain hemodynamically stable Spoke with mother Emerita, reviewed that [facility] is facility of choice, snf updated via [facility] tasked to be started. Called to bedside by nursing as on awakening this AM, patient reporting a 10/10 headache. Went to bedside to evaluate. No new neurologic deficits on exam, patient still denoting vision changes that are similar to prior. Patient alert and oriented. Patient states that this headache feels similar to headaches that she has had in the past. Pain is predominately located in the center of the forehead. Patient states that this headache did not awaken her from her sleep, but that she noticed it when the nurse woke her up this AM. Explained to patient that will give her a dose of tylenol this AM and see how she responds, information to be passed on to day team to follow up on and assess for resolution or change in symptoms Patient verbalizes understanding to call for help. Patient used call light appropriately this shift to call for assistance. Safety measures maintained. Referral placed to SNF - 1. [facility] 2. [facility] 3. [facility] 4. [facility] 5. [facility] via [facility] per TCC request. Await review and response regarding ability to accept. TCC notified. Spoke with sister Valerie, updated her that [facility] and [facility] in [place] do no have open beds. She is agreeable to referral to [facility] and referrals to snfs in [facility], [facility], and [facility]. Spoke with pt's mom Emerita, she requests referral to [facility] as well. Referrals tasked to be placed in careport. Referral placed to SNF - [facility] via [facility] per TCC request. Await review and response regarding ability to accept. TCC notified. SW following with TCC. Referral placed to SNF - [facility] via [facility] per TCC request. Await review and response regarding ability to accept. TCC notified. Received note from RN that family would like referral to [facility], does not want [facility]. Would like pt to be close to family. Met with pt at bedside to discuss, she confirms she would like a snf in [place]. Received call from sister Valerie, she states that it is important for pt to be close to family so family can assist in caring for pt. Referral has been tasked to be placed to [place], if they are unable to accept will work with family on other choices. Valerie agreeable to this plan. Patient free from injury. 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 Patient vitals stable, chronic conditions monitor and maintained. The patient is Moderately Stable - Low risk of patient condition declining or worsening The patient's goals for the shift include remain CP free The clinical goals for the shift include remain CP free Over the shift, the patient did not make progress toward the following goals. Barriers to progression include knowledge deficit. Recommendations to address these barriers include education. Spoke with [facility] liaison, auth is back thru 03/29. No bed available at [facility] today. TCC to follow. Patient denies pain throughout shift. She remains free from injury, calls appropriately for standby assist to and from bathroom. Images from the original note were not included. Care Management Progress Note Tasked to follow this patient over the weekend. Spoke with [facility] liaison, auth remains pending. TCC to follow. Discharge Milestones and Delays Expected date/time: 03/22/[address] discharge order Complete med reconciliation Case mgmt discharge readiness Clinical Stability Diagnostic Workup Patient Education Complete Expected Discharge History Expected Date/Time Set By Reviewed At 03/22/2024 Jessica Nelson RN 03/21/2024 10:45 AM 06/22/2024 Jessica Nelson RN 03/20/2024 10:14 AM 06/22/2024 Jessica Nelson RN 03/19/2024 10:24 AM 06/22/2024 Christiana Cruz DO 03/15/2024 7:57 PM Length of Stay (Days): 8 GMLOS: 3.8 Auth pending to [facility]. Spoke with [facility] liaison, do not anticipate hearing today but potentially over the weekend. Will task weekend staff to follow for potential discharge. Problem: Pain - Adult Goal: Verbalizes/displays adequate comfort level or baseline comfort level Outcome: Progressing Problem: Safety - Adult Goal: Free from fall injury Outcome: Progressing Problem: Discharge Planning Goal: Discharge to home or other facility with appropriate resources Outcome: Progressing Problem: Chronic Conditions and Co-morbidities Goal: Patient's chronic conditions and co-morbidity symptoms are monitored and maintained or improved Outcome: Progressing Problem: Problem Interventions Goal: Assess Nutritional Intake Outcome: Progressing The patient is Moderately Stable - Low risk of patient condition declining or worsening The patient's goals for the shift include have pain controlled. The clinical goals for the shift include remain safe. The patient is Moderately Stable - Low risk of patient condition declining or worsening The patient's goals for the shift include remain CP free The clinical goals for the shift include remain CP free Over the shift, the patient did not make progress toward the following goals. Barriers to progression include current diagnostic. Recommendations to address these barriers include verbally confirming an understanding of plan of care. Images from the original note were not included. Care Management Progress Note Patient remains in CTV ICU with NSTEMI. VSS, on RA, in NSR on tele, endocrine and neuro critical care following and PT/OT recommending IPR. DCP-requested [facility] start auth Discharge Milestones and Delays Expected date/time: 06/22/[address] discharge order Complete med reconciliation Case mgmt discharge readiness Clinical Stability Diagnostic Workup Patient Education Complete Expected Discharge History Expected Date/Time Set By Reviewed At 06/22/2024 Jessica Nelson RN 03/20/2024 10:14 AM 06/22/2024 Jessica Nelson RN 03/19/2024 10:24 AM 06/22/2024 Christiana Cruz DO 03/15/2024 7:57 PM Length of Stay (Days): 6 GMLOS: 3.8 The patient is Moderately Stable - Low risk of patient condition declining or worsening The patient's goals for the shift include remain CP free The clinical goals for the shift include remain CP free Over the shift, the patient did not make progress toward the following goals. Barriers to progression include . Recommendations to address these barriers include . Problem: Discharge Planning Goal: Discharge to home or other facility with appropriate resources Outcome: Not Progressing The patient is Moderately Stable - Low risk of patient condition declining or worsening The patient's goals for the shift include remain CP free The clinical goals for the shift include remain CP free Over the shift, the patient did not make progress toward the following goals. Barriers to progression include none. Recommendations to address these barriers include none. Referral placed to [facility] request. Await review and response regarding ability to accept. TCC notified. Electronically signed by [facility] [place]. Spoke with patient at bedside to discuss PT recommendation of IPR. Patient agreeable, choice provided, would like [facility]. Task to [facility] to place referral. The patient is Moderately Stable - Low risk of patient condition declining or worsening The patient's goals for the shift include remain CP free The clinical goals for the shift include remain CP free Care Managment Initial Assessment Date: 03/18/2024 Patient Name: Neil Wellington : 1970 Patient Information Source of Information: Patient Cognition/Language: WFL - Within Functional Limits Permission given to speak with patient real estate representative/caregiver as indicated: Confirmation of Payer with patient/family: Yes Payer Name: [employer] Caroleen: No Confirmation of Primary Care Physician: Confirmed PCP Name: Luz Mcdermott Seen in last 2 years?: Yes Primary Caregiver: Self If assistance needed, confirmed caregiver ready, willing and able to care for patient at discharge: Confirmed with: Living Arrangements Current Residence: Private Residence (trailer) Number of Floors 1 Number of Entry Steps: 5 or more Bed/Bath Levels: Both first floor Facility: Facility Name: Plan to Return: Lives with: Alone Support Systems: Friends/neighbors Activities of Daily Living Ambulation: Independent Bathing/Dressing: Independent Elimination/Continence/Toileting: Independent Feeding: Independent Who Assists with Activities of Daily Living: Instrumental Activities of Daily Living Prescription Coverage: Yes Pharmacy Used: Patient unable to recall Medication Management: Independent Transportation/Shopping: Transportation Mode: Needs Assistance with Transportation at Discharge: No Meal Preparation: Independent Laundry/Cleaning: Independent Finances/Bill Paying: Independent Communication: Independent Types of Care Services/Equipment Utilized Care Services: Dialysis Type: Durable Medical Equipment: Patient's Goal/Discharge Plan Patient expects to be discharged to: home Discharge Planning Actions: No needs identified Patient's Choice Rights and [employer] and Collaborative Relationships Disclosed as Indicated for Post-Acute Care: Interdisciplinary Team Engagement: Social Work Referral for: Additional Information: Patient admitted to CTV ICU with NSTEMI. Spoke with patient at bedside, introduced self and role. Patient from home with SO, is independent, has PCP and prescription coverage, will have a ride home and anticipate no discharge needs. Jessica Nelson RN Sedation Plan ASA class 3 - patient with severe systemic disease Mallampati class: III - soft palate, base of uvula visible. Sedation plan: local anesthesia and moderate (conscious sedation) Risks, benefits, and alternatives discussed with patient. Plan discussed with attending. Immediate reassessment prior to sedation: Patient's status reviewed and vital signs assessed; acceptable to perform procedure and proceed to administer sedation as planned. documented in this encounter [facility] 03-27-2024 History of Present illness Narrative Images from the original note were not included. Speech-Language Pathology SPEECH LANGUAGE PATHOLOGY [facility] Language Treatment Note Patient Name: Neil Wellington Evaluation Date: 03/27/2024 Date of : 1970 Admission Date: 03/15/2024 7:36 PM Age: 53 y.o. Room/Bed: [facility] Subjective Patient confused, and restless. Seen upright in bed. No visitors at bedside . Spoke with TIAN Anders who cleared pt for treatment. Pain: RN managing pain. PPE Worn: gloves Objective & Assessment Language Treatment # of Activities: 1 Language Activity 1: expressive language tasks Activity 1 Comment: Pt was lethargic and restless in bed. Cues provided for her keep eyes open and participate in session. Oriented to self and place " hospital " but unable to state name of this facility. She continues to report visual defiicts and is unable to read any large print words. responsive naming tasks = 20% with max cues, category naming for 4 items was 30% with max cues and increased time to complete task. Often needs re-direction due to poor attention / focus. Word finding deficits also noted in conversational speech. The patient continues to present with significant expressive language deficits, cognitive deficits and poor attention / focus. Plan & Recommendations Plan: continue current POC , pt will require ongoing speech therapy at next level of care Continue acute HULL AND DECK REMOVER therapy per initial plan of care and established goals. D/C Recommendations: ongoing speech therapy at next level of care Education Education Given: role of therapy, communication Given To: patient Response: no evidence of learning Goals Patient Stated Goal: improve communication Encounter Problems Encounter Problems (Active) Speech/Language/Cognition Patient will name objects/items in environment or functional pictures with 75% accuracy (Progressing) Start: 03/19/24 Expected End: 04/02/24 Patient will participate with evaluation of reading comprehension and graphic expression. (Not Progressing) Start: 03/19/24 Expected End: 04/02/24 Goal Note Visual deficits Encounter Problems (Resolved) HULL AND DECK REMOVER Misc Misc 1 (Completed) Start: 03/19/24 Expected End: 04/02/24 Resolved: 03/20/24 Goal Note Patient will follow 3 step commands x 80% Therapy Time HULL AND DECK REMOVER Individual Minutes Time In: 924 Time Out: 939 Minutes: 15 SALVADOR Maldonado Department of Internal Medicine Division of Endocrinology, Diabetes, & Metabolism Endocrinology Note Patient Name: Neil Wellington : 1970 AGE: 53 y.o. 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 Please reach out to our team with any further questions or concerns ICU goal <180 GMF goal <150 POCT BG ACHS Hypoglycemia management per protocol Carb controlled diet ANTICIPATED ENDOCRINE HOME GOING RECOMMENDATIONS: Optimized for Discharge from Endocrine standpoint: yes Home Going Endocrine Rx Recommendations-- Please continue current insulin regimen to [facility] or SNF on DC Outpt Follow Up-- PCP SUBJECTIVE/HPI: CHIEF COMPLAINT: No chief complaint on file. Patient presented to [facility] ED with CP radiating down left arm and jaw pain started 03/13/24 Patient transferred from [facility] had there -for NSTEMI--for CABG vs stents--patient declines surgery Had heart cath and stents placed at [facility] 03/16/24 EF improved on ANNY after stents placed ( was 44% at [facility]) Today patient is resting in bed, barely opens eyes Endorses not taking any medications ordered for more than year Reviewed PCP not from care everywhere 07/2023 states depression reason for not taking medications--patient states ahe did npot follow up with PCP at that visit was advised ED for HTN and patient refused--states memory issues at that time--does not look like mediction for depression was discussed Today she says she does not care Reviewed A1c and need for insulin here but we need to discuss plan. Patient just states I don't care several times in trying determine what plan of treatment she is willing to do--discussed with Dr Caal will place psych consult Asked about appetite and what she ate--I don't remember Per nursing ate eggs and hungarian toast for BF Interval events BGL below-stable today Resting in bed VSS RA Flat affect Had all of bfast just finished eating Cannot recall if had late snack Did eat dinner last night She denies nv abd pain No family in room today Will go to [facility] rehab vs home snf near her hometown with family Spoke with nursing Remains on on GMF- waiting for rehab bed Still no discharge as of yet She has remained stable we will sign off at this time Type of DM: DM2 Onset of DM: age 51 Home DM Medication Regimen: was ordered but not clear if she ever took regularly DM control (last A1c/glucose data): Lab Results Component Value Date HGBA1C 13.3 (H) 03/16/2024 Glucose Date/Time Value Ref Range Status 03/27/2024 07:45 AM 173 (H) 70 - 100 mg/dL Final 03/26/2024 07:58 PM 185 (H) 70 - 100 mg/dL Final 03/26/2024 04:47 PM 159 (H) 70 - 100 mg/dL Final 03/26/2024 01:01 PM 238 (H) 70 - 100 mg/dL Final 03/26/2024 10:32 AM 211 (H) 70 - 100 mg/dL Final 03/26/2024 07:35 AM 181 (H) 70 - 100 mg/dL Final Review of Systems Respiratory: Negative for chest tightness and shortness of breath. Cardiovascular: Negative for chest pain. Skin: Negative for wound. Neurological: Negative for numbness. Psychiatric/Behavioral: Positive for behavioral problems. ROS negative except for those mentioned in HPI. OBJECTIVE: Vitals: 03/26/24199903/26/24 2348 03/27/24 0342 03/27/24 0743 BP: 108/74 105/69 116/66 138/81 BP Location: Left arm Left arm Left arm Left arm Patient Position: Sitting Lying Lying Lying Pulse: 79 84 82 77 Resp: 16 20 18 18 Temp: 37.3 C (99.1 F) 36.8 C (98.3 F) 36.5 C (97.7 F) (!) 35.9 C (96.6 F) TempSrc: Temporal Temporal Temporal Temporal SpO2: 97% 96% 95% 92% Weight: 199 lb 3.2 oz (90.4 kg) Height: Physical Exam Vitals and nursing note reviewed. Constitutional: General: She is awake. She is not in acute distress. Appearance: She is obese. Eyes: Conjunctiva/sclera: Conjunctivae normal. Cardiovascular: Rate and Rhythm: Normal rate. Pulses: Normal pulses. Pulmonary: Breath sounds: Normal breath sounds. Abdominal: General: Bowel sounds are normal. Tenderness: There is no guarding. Musculoskeletal: General: No swelling. Normal range of motion. Skin: General: Skin is warm and dry. Neurological: Mental Status: She is alert and oriented to person, place, and time. Mental status is at baseline. Psychiatric: Attention and Perception: She is inattentive. Mood and Affect: Mood is depressed. Behavior: Behavior is slowed and withdrawn. Comments: 24 hour intake/output: Intake/Output Summary (Last 24 hours) at 03/27/2024 0943 Last data filed at 03/27/2024 0851 Gross per 24 hour Intake 680 ml Output 1450 ml Net -770 ml Diet: Adult diet Regular; 4 carb choices (60 gm/meal); Low Fat/Low Chol/High Fiber/2 gm Na Medications (as per EMR): HomeMeds: No current outpatient medications Scheduled Meds:aspirin, 81 mg, Oral, Daily carvedilol, 6.25 mg, Oral, BID WC enoxaparin, 40 mg, SubCUTAneous, Daily insulin glargine, 26 Units, SubCUTAneous, Nightly insulin lispro, 0-12 Units, SubCUTAneous, TID WC insulin lispro, 24 Units, SubCUTAneous, TID WC losartan, 50 mg, Oral, Daily polyethylene glycol (PEG) 3350, 17 g, Oral, Daily rosuvastatin, 40 mg, Oral, Nightly senna-docusate sodium, 2 tablet, Oral, Daily ticagrelor, 90 mg, Oral, BID Continuous Infusions: PRN Meds:PRN medications: acetaminophen OR acetaminophen OR acetaminophen, dextrose, dextrose, glucagon (rDNA), glucose, insulin lispro, ipratropium-albuterol, naloxone, nitroglycerin, ondansetron ODT OR ondansetron, sodium chloride Diagnostic Workup: I reviewed pertinent Laboratory results, Radiographic results, and Other Clinical Notes at the time of today's encounter. Labs: No components found for: "LABA1C" No components found for: "EAG" Lab Results Component Value Date NA 135 03/26/2024 K 4.5 03/26/2024 CL 103 03/26/2024 CO2 21 (L) 03/26/2024 BUN 25 (H) 03/26/2024 CREATININE 1.22 (H) 03/26/2024 GLUCOSE 179 (H) 03/26/2024 CALCIUM 9.2 03/26/2024 Lab Results Component Value Date CHOL 173 03/16/2024 Lab Results Component Value Date TRIG 150 (H) 03/16/2024 Lab Results Component Value Date HDL 39 (L) 03/16/2024 Lab Results Component Value Date LDLCALC 104 (H) 03/16/2024 No results found for: "VLDL" Lab Results Component Value Date CHOLHDLRATIO 4 03/16/2024 No results found for: "[id number]" Lab Results Component Value Date TSH 1.923 03/16/2024 Radiology reportsas per the Radiologist Radiology: POCT glucose meter Result Date: 03/16/2024 Performed by: [facility], [address] [place] [id number] CLIA ID: [id number] POCT glucose meter Result Date: 03/16/2024 Performed by: [facility], [address] [place] [address] CLIA ID: [id number] POCT ACT Result Date: 03/16/2024 Performed by: [facility], [address] [place] [id number] CLIA ID: [id number] POCT ACT Result Date: 03/16/2024 Performed by: [facility], [address] [place] [id number] CLIA ID: [id number] POCT ACT Result Date: 03/16/2024 Performed by: [facility], [address] [place] [id number] CLIA ID: [id number] ECG 12 lead Sinus rhythm Right axis deviation Abnormal T, consider ischemia, lateral leads ST elevation, consider inferior injury Cardiac procedure Result Date: 03/16/2024 - Successful IVUS guided PCI of ostial to mid circumflex artery with deployment of 3.0 mm x 48 mm Synergy KINGSLEY - Successful IVUS guided PCI of ostial RCA with deployment of 4.0 mm x 12 mm Xience KINGSLEY - Medical therapy for mild to moderate disease of LAD and ramus POCT glucose meter Result Date: 03/16/2024 Performed by: [facility], [address] [place] [id number] CLIA ID: [id number] POCT glucose meter Result Date: 03/15/2024 Performed by: [facility], [address] [place] [id number] CLIA ID: [id number] XR chest 1 view Result Date: 03/15/2024 Patient Name: NEIL WELLINGTON : 1970 [id number] Exam Date/Time: 03/15/2024 20:23 Procedure: XR CHEST 1 VIEW Ordering Provider: ORTIZ JOSEPH Reason For Exam: Shortness of breath PORTABLE CHEST: INDICATION: Shortness of breath COMPARISON: No previous studies are available for comparison. Obtained at 2020. A single portable AP radiograph of the chest was obtained. The heart is borderline in size. The mediastinal silhouette is normal. There is mild vascular congestion. No effusions or acute infiltrates. There is no pleural thickening. The osseous structures are unremarkable. Mild vascular congestion. Report Dictated on Electronically Signed By: Jordan Davies DO Electronically Signed Date/Time: 03/15/2024 10:47 PM EDT ECG 12 lead Sinus rhythm Probable left atrial enlargement Abnormal T, consider ischemia, lateral leads ST elevation, consider inferior injury History/Other: Past Medical History: History reviewed. No pertinent past medical history. Past Surgical History: Past Surgical History: Procedure Laterality Date CARDIAC CATHETERIZATION N/A 03/16/2024 Performed by Maximo Max MD at [facility] Cardiac Cath/EP Lab CARDIAC CATHETERIZATION N/A 03/16/2024 Performed by Maximo Max MD at [facility] Cardiac Cath/EP Lab CARDIAC CATHETERIZATION N/A 03/16/2024 Performed by Maximo Max MD at [facility] Cardiac Cath/EP Lab Allergy(ies): No Known Allergies Family History: No family history on file. Social History: Social History Tobacco Use Smoking status: Unknown Portions of the information within this encounter were entered using an electronic dictation system. Best attempts were made to edit/proofread the information prior to note completion. Despite the review of information, some errors may remain. If there are questions related to the information contained within the note please contact the signing physician directly. I spent 35 minutes with the pt which involved coordination of care, medical evaluation, review of records, and/or counseling of the pt regarding his/her condition/disease state/prognosis on the date of this note. Med Team Progress Note Neil Wellington : 1970(53 y.o.) Date: March 27, 2024 Med Team: A Attending: Dr. Guero Monson Chief Complaint: NSTEMI, Stroke Subjective: - No acute overnight events - Yesterday was called to bedside for concern of headache and vision changes per Dr. Harper's note. On further examination, no changes in neurologic ability following stroke. Visual exam inconsistent with a change in her already present hemianopia. CT Head was ordered and demonstrated no acute infarct or hemorrhage, only evolution of left posterior temporal and left occipital infarct. Today: - She reports some fatigue and difficulty seeing. She has been eating well and drinking, but endorses a headache that comes and goes. Otherwise, no nausea, vomiting, SOB, chest pain, change in mental status. She refused blood draw due to her stating that it aggravates her headache. - Authorization filed and accepted for [facility] in [place], [place]. Medically stable for discharge, transport planned for this afternoon. Please see discharge summary for entire hospital course. PRN meds used in last 24hrs: Tylenol Patient seen and examined on teaching rounds this AM. Headache resolved. Vision changes actually a bit better per patient today. Review of Systems Constitutional: Negative for chills, diaphoresis and fever. Respiratory: Negative for cough, shortness of breath and wheezing. Cardiovascular: Negative for chest pain, palpitations and leg swelling. Gastrointestinal: Negative for abdominal pain, constipation, diarrhea, nausea and vomiting. Genitourinary: Negative for dysuria, frequency and urgency. Neurological: Positive for speech difficulty. Negative for weakness, light-headedness and headaches. Scheduled Meds:aspirin, 81 mg, Oral, Daily carvedilol, 6.25 mg, Oral, BID WC enoxaparin, 40 mg, SubCUTAneous, Daily insulin glargine, 26 Units, SubCUTAneous, Nightly insulin lispro, 0-12 Units, SubCUTAneous, TID WC insulin lispro, 24 Units, SubCUTAneous, TID WC losartan, 50 mg, Oral, Daily polyethylene glycol (PEG) 3350, 17 g, Oral, Daily rosuvastatin, 40 mg, Oral, Nightly senna-docusate sodium, 2 tablet, Oral, Daily ticagrelor, 90 mg, Oral, BID Objective: BP 138/81 (BP Location: Left arm, Patient Position: Lying) Pulse 77 Temp (!) 35.9 C (96.6 F) (Temporal) Resp 18 Ht 5' 2" (1.575 m) Wt 199 lb 3.2 oz (90.4 kg) SpO2 92% BMI 36.43 kg/m Physical Exam Vitals reviewed. Constitutional: General: She is not in acute distress. Appearance: She is obese. She is not ill-appearing, toxic-appearing or diaphoretic. HENT: Head: Normocephalic and atraumatic. Mouth/Throat: Mouth: Mucous membranes are dry. Pharynx: Oropharynx is clear. Eyes: General: No scleral icterus. Extraocular Movements: Extraocular movements intact. Conjunctiva/sclera: Conjunctivae normal. Cardiovascular: Rate and Rhythm: Normal rate and regular rhythm. Pulses: Normal pulses. Heart sounds: Normal heart sounds. No murmur heard. No friction rub. No gallop. Pulmonary: Effort: Pulmonary effort is normal. Breath sounds: Normal breath sounds. No wheezing, rhonchi or rales. Abdominal: General: Abdomen is flat. There is no distension. Palpations: Abdomen is soft. Tenderness: There is no abdominal tenderness. Musculoskeletal: General: Normal range of motion. Right lower leg: No edema. Left lower leg: No edema. Skin: General: Skin is warm and dry. Neurological: Mental Status: She is alert and oriented to person, place, and time. Comments: Some word finding difficulty, some visual deficit, appears to be worse in the right visual field, decreased visual acuity, able to see figures, follow finger (although worse in the right visual field. [facility] within last 24 hours No results found for: "WBC", "HGB", "HCT", "PLT", "MCV" No results found for: "NA", "K", "CL", "CO2", "BUN", "CREATININE", "GLUCOSE", "CALCIUM", "MG", "PHOS" No results found for: "AST", "ALT", "PROT", "BILITOT", "ALKPHOS", "INR", "APTT", "LIPASE" No results found for: "CKTOTAL", "CKMB", "TROPONINI" No results found for: "PROCAL", "CHOL", "TRIG", "HDL", "TSH", "VITD25", "HGBA1C", "VANCOTROUGH" Abdominal US (03/26) - Surgically absent GB, No intrahepatic/extrahepatic dilatation of the bile ducts, normal parenchymal echogenicity of the bilateral kidneys, normal spleen. Head CT (03/26) 1. Evolutionary changes of a subacute left temporal occipital infarct. Remote right occipital infarct. 2. No definite acute cortical infarct or intracranial hemorrhage. Note that if there is persistent concern for a new acute infarct, MRI is a more sensitive means of evaluation. 3. White matter changes likely due to microangiopathic disease." Assessment and Plan: NSTEMI - S/p [facility] (03/16/24) - [place] to ostial-mid Lcx (85% stenosis) and ostial RCA (80% stenosis), with medical mgmt of mild - moderate disease of LAD disease -LV function preserved post event with EF 65% Plan: - Continue ASA 81 mg daily - Continue Brilinta 90 mg BID - Continue Losartan 50 mg daily for afterload reduction - Continue Coreg 6.25 mg BID daily Agree VERONA - Cr increased by 0.3 to 1.25 from 03/21 to 03/23, consistent with stage I VERONA per KDIGO criteria. - Encouraging PO intake of water Agree. Continue to monitor labs every week at [facility]. Transaminitis - AST of 85, ALT of 121 yesterday, and elevated Alk Phos at 173 yesterday, no new lab values. - Recommending hepatic panel within [address] [facility] - See below (HLD), changing crestor to atorvastatin as it may have been the etiology. Agree Subacute embolic stroke of left posterior temporal and occipital lobe - Suspect embolic vs atheroembolic (03/19/24) 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 - Speech therapy following, appreciate their assistance, PT/OT - Ophthalmology consulted, recommended outpatient follow up in eye clinic for formal visual field testing - Fall precautions - Continue DAPT - Head CT on Mar 31 demonstrating evolution of left occipital and left posterior temporal lobe, no hemorrhage. - Outpatient ANNY and event monitor recommended by neuro, neuro felt that even if patient had indication for anticoagulation that she would not be a great candidate due to concern for compliance Agree T2DM - Ha1c 13.3% (03/16/24) - Non-compliant with home regimen (Metformin 500 mg BID daily, Jardiance 10 mg daily, Trulicity 3 mg once weekly) Plan: - Endocrinology recommendations for discharge to SNF include the following: - Continue Lantus 26 units nightly - Humalog insulin 24 units before meals (changed recommendation) - Humalog low dose SS with meals - 4 units with late night snack Agree Chronic Problems and Follow Up Items: HTN - Continue Losartan 50 mg daily - Continue Coreg 6.25 mg BID daily HLD - Changing to Atorvastatin 80 mg every day from Crestor 40 mg. HF recovered EF - TTE (03/17/24) - EF 65%, mildly increased wall thickness and moderate (2+) regurgitation Plan: - Continue Losartan 50 mg daily - Continue Coreg 6.25 mg BID daily - Consider starting Farxiga 10 mg daily in outpatient setting given history of T2DM Suspected COPD Tobacco Use - Consider obtaining PFTs outpatient - Encouraged smoking cessation; patient not ready to quit - Goals of Care: FULL CODE - DVT Prophylaxis: Lovenox 40 q24hr - CrCl >30 - GI Prophylaxis: Not Indicated - Diet: Carb-Control and Cardiac Disposition: Discharge this afternoon to [facility] ([facility]) I have discussed the care of Neil Wellington with the medical student and/or resident. I have personally taken a history, examined the patient, and performed the associated medical decision making activities. I have reviewed & verified the attested documentation. Unless otherwise noted above, this documentation reflects the history, physical exam, and medical decision making that I performed myself. Please see green and bolded text for my personal highlights or additions to the note. Patient seen and examined by myself on 03/27/24 >30 minutes spent on hospital discharge Images from the original note were not included. Department of Psychiatry Consult Service Psychiatry Progress Note Neil Wellington is a 53 y.o. female who was seen in follow up for: depression Interval History: Patient seen and examined at the beside, calm and cooperative on approach. She expresses frustration with her vision. Says she wants to talk to family, but is unable to answer her phone and can't remember her pass code to make outgoing calls. Says her mood has gotten worse since she's been hospitalized. Endorses hopelessness and anhedonia due to her medical condition. She remains ambivalent regarding psychotropics at this time. Medications: aspirin, 81 mg, Oral, Daily carvedilol, 6.25 mg, Oral, BID WC enoxaparin, 40 mg, SubCUTAneous, Daily insulin glargine, 26 Units, SubCUTAneous, Nightly insulin lispro, 0-12 Units, SubCUTAneous, TID WC insulin lispro, 24 Units, SubCUTAneous, TID WC losartan, 50 mg, Oral, Daily polyethylene glycol (PEG) 3350, 17 g, Oral, Daily rosuvastatin, 40 mg, Oral, Nightly senna-docusate sodium, 2 tablet, Oral, Daily ticagrelor, 90 mg, Oral, BID PRN medications: [Held by provider] acetaminophen OR [Held by provider] acetaminophen OR [Held by provider] acetaminophen, dextrose, dextrose, glucagon (rDNA), glucose, insulin lispro, ipratropium-albuterol, naloxone, nitroglycerin, ondansetron ODT OR ondansetron, sodium chloride Mental Status Examination: Level of consciousness: Alert Appearance: Well-groomed and hospital attire Eye contact: Poor Behavior/Motor: Normal Gait: Sitting down Involuntary movements: Normal Attitude toward examiner: Cooperative Speech: clear, coherent, and word-finding difficulty Mood: Depressed Affect: blunted Associations: Intact Thought processes: logical and sequential/linear Thought content: No SI, No HI, and No AVH Cognition: Oriented per interview Concentration: Intact Memory: recent and remote memory intact Insight: Fair Judgement: Fair Vitals: Vitals: 03/26/24 0325 03/26/24 0544 03/26/24 0736 03/26/24 1052 BP: 108/59 128/80 125/78 110/59 BP Location: Right arm Left arm Left arm Patient Position: Lying Sitting Lying Pulse: 77 96 92 75 Resp: 18 16 16 Temp: 36.5 C (97.7 F) 36.4 C (97.6 F) 36.4 C (97.6 F) TempSrc: Temporal Temporal Temporal SpO2: 96% 96% 96% 99% Weight: 90.4 kg (199 lb 6.4 oz) Height: Physical Exam: Physical Exam Constitutional: Appearance: Normal appearance. HENT: Head: Normocephalic and atraumatic. Mouth/Throat: Mouth: Mucous membranes are moist. Pharynx: Oropharynx is clear. Pulmonary: Effort: Pulmonary effort is normal. Abdominal: General: Abdomen is flat. Neurological: Mental Status: She is alert. Labs: Recent Results (from the past 48 hour(s)) POCT glucose meter Collection Time: 03/24/24 4:42 PM Result Value Ref Range Glucose 294 (H) 70 - 100 mg/dL POCT glucose meter Collection Time: 03/24/24 8:28 PM Result Value Ref Range Glucose 221 (H) 70 - 100 mg/dL CBC auto differential Collection Time: 03/25/24 5:33 AM Result Value Ref Range Auto WBC 14.4 (H) 3.6 - 10.7 10*3/uL RBC 4.84 3.80 - 5.20 10*6/uL Hemoglobin 13.7 11.7 - 16.0 g/dL Hematocrit 41.6 35.0 - 47.0 % MCV 86.0 77.0 - 99.0 fL MCH 28.3 26.0 - 34.0 pg MCHC 32.9 30.5 - 36.0 % RDW 13.1 11.5 - 15.0 % Platelets 301 140 - 440 10*3/uL MPV 12.0 9.0 - 12.7 fL nRBC 0.0 0.0 - 2.0 /100 WBCs Neutrophils Relative 63.5 38.0 - 82.0 % Lymphocytes Relative 21.5 15.0 - 45.0 % Monocytes Relative 12.8 5.0 - 13.0 % Eosinophils Relative 1.0 0.0 - 6.0 % Basophils Relative 0.6 0.0 - 2.0 % Immature Grans % 0.6 0.0 - 2.0 % Neutrophils Absolute 9.1 (H) 1.8 - 7.5 10*3/uL Lymphocytes Absolute 3.1 1.0 - 4.3 10*3/uL Monocytes Absolute 1.8 (H) 0.0 - 0.9 10*3/uL Eosinophils Absolute 0.2 0.0 - 0.5 10*3/uL Basophils Absolute 0.1 0.0 - 0.2 10*3/uL Immature Grans Absolute 0.1 (H) <0.1 10*3/uL Comprehensive metabolic panel Collection Time: 03/25/24 5:33 AM Result Value Ref Range SODIUM 132 (L) 135 - 145 mmol/L POTASSIUM 4.6 3.5 - 5.1 mmol/L CHLORIDE 103 98 - 107 mmol/L CARBON DIOXIDE 20 (L) 22 - 30 mmol/L ANION GAP 9 3 - 13 mmol/L UREA NITROGEN 23 (H) 7 - 17 mg/dL CREATININE 1.11 (H) 0.52 - 1.04 mg/dL GLUCOSE 193 (H) 70 - 100 mg/dL CALCIUM 9.4 8.4 - 10.4 mg/dL AST (SGOT) 70 (H) 15 - 46 U/L ALT 87 (H) 0 - 34 U/L ALKALINE PHOSPHATASE 137 (H) 38 - 126 U/L ALBUMIN 3.9 3.5 - 5.0 g/dL BILIRUBIN, TOTAL 0.9 0.2 - 1.3 mg/dL TOTAL PROTEIN 8.2 6.3 - 8.2 g/dL eGFR 59.9 (L) >60.0 mL/min/1.73m*2 Magnesium Collection Time: 03/25/24 5:33 AM Result Value Ref Range MAGNESIUM 2.2 1.6 - 2.3 mg/dL Phosphorus Collection Time: 03/25/24 5:33 AM Result Value Ref Range PHOSPHORUS 4.6 (H) 2.5 - 4.5 mg/dL POCT glucose meter Collection Time: 03/25/24 7:38 AM Result Value Ref Range Glucose 226 (H) 70 - 100 mg/dL POCT glucose meter Collection Time: 03/25/24 11:41 AM Result Value Ref Range Glucose 271 (H) 70 - 100 mg/dL POCT glucose meter Collection Time: 03/25/24 6:01 PM Result Value Ref Range Glucose 128 (H) 70 - 100 mg/dL POCT glucose meter Collection Time: 03/25/24 7:44 PM Result Value Ref Range Glucose 267 (H) 70 - 100 mg/dL CBC auto differential Collection Time: 03/26/24 5:37 AM Result Value Ref Range Auto WBC 14.9 (H) 3.6 - 10.7 10*3/uL RBC 4.60 3.80 - 5.20 10*6/uL Hemoglobin 13.1 11.7 - 16.0 g/dL Hematocrit 39.6 35.0 - 47.0 % MCV 86.1 77.0 - 99.0 fL MCH 28.5 26.0 - 34.0 pg MCHC 33.1 30.5 - 36.0 % RDW 13.1 11.5 - 15.0 % Platelets 329 140 - 440 10*3/uL MPV 12.1 9.0 - 12.7 fL nRBC 0.0 0.0 - 2.0 /100 WBCs Neutrophils Relative 67.1 38.0 - 82.0 % Lymphocytes Relative 19.2 15.0 - 45.0 % Monocytes Relative 11.6 5.0 - 13.0 % Eosinophils Relative 1.1 0.0 - 6.0 % Basophils Relative 0.5 0.0 - 2.0 % Immature Grans % 0.5 0.0 - 2.0 % Neutrophils Absolute 10.0 (H) 1.8 - 7.5 10*3/uL Lymphocytes Absolute 2.9 1.0 - 4.3 10*3/uL Monocytes Absolute 1.7 (H) 0.0 - 0.9 10*3/uL Eosinophils Absolute 0.2 0.0 - 0.5 10*3/uL Basophils Absolute 0.1 0.0 - 0.2 10*3/uL Immature Grans Absolute 0.1 (H) <0.1 10*3/uL Comprehensive metabolic panel Collection Time: 03/26/24 5:37 AM Result Value Ref Range SODIUM 135 135 - 145 mmol/L POTASSIUM 4.5 3.5 - 5.1 mmol/L CHLORIDE 103 98 - 107 mmol/L CARBON DIOXIDE 21 (L) 22 - 30 mmol/L ANION GAP 11 3 - 13 mmol/L UREA NITROGEN 25 (H) 7 - 17 mg/dL CREATININE 1.22 (H) 0.52 - 1.04 mg/dL GLUCOSE 179 (H) 70 - 100 mg/dL CALCIUM 9.2 8.4 - 10.4 mg/dL AST (SGOT) 85 (H) 15 - 46 U/L ALT 121 (H) 0 - 34 U/L ALKALINE PHOSPHATASE 173 (H) 38 - 126 U/L ALBUMIN 3.8 3.5 - 5.0 g/dL BILIRUBIN, TOTAL 0.8 0.2 - 1.3 mg/dL TOTAL PROTEIN 8.0 6.3 - 8.2 g/dL eGFR 53.5 (L) >60.0 mL/min/1.73m*2 Magnesium Collection Time: 03/26/24 5:37 AM Result Value Ref Range MAGNESIUM 2.2 1.6 - 2.3 mg/dL Phosphorus Collection Time: 03/26/24 5:37 AM Result Value Ref Range PHOSPHORUS 4.3 2.5 - 4.5 mg/dL POCT glucose meter Collection Time: 03/26/24 7:35 AM Result Value Ref Range Glucose 181 (H) 70 - 100 mg/dL POCT glucose meter Collection Time: 03/26/24 10:32 AM Result Value Ref Range Glucose 211 (H) 70 - 100 mg/dL POCT glucose meter Collection Time: 03/26/24 1:01 PM Result Value Ref Range Glucose 238 (H) 70 - 100 mg/dL DIAGNOSIS: Unspecified mood disorder Rule out MDD vs dysthymia ASSESSMENT/PLAN: -Continue supportive psychotherapy -Patient still ambivalent about meds -Delirium precautions Encourage family members to visit Bring special items from home Utilize hearing aids and glasses Open blinds in the daytime Reduce nighttime disruptions Monitor for substance-related withdrawals Promote early, safe mobilization Optimize pain control with non-opioid medications as able Minimize physical restraints Avoid benzodiazepines, anticholinergics & other sedating medications Discontinue lines, drains and tubes as able Will follow. Patient seen and staffed with attending psychiatrist, Dr. Bartlett. . Associated attestation - Ole Bartlett MD - 03/27/2024 9:45 AM EDT I saw and evaluated the patient, participating in the nino portions of the service. I reviewed the resident s note. I agree with the resident s findings and plan. Patient presently declines offer of sertraline to address dysphoric mood. Ole Bartlett MD Images from the original note were not included. PHYSICAL THERAPY [facility] Treatment Note Name/MRN: Neil Wellington ([id number]) Date of : 1970 Age: 53 y.o. Room/Bed: W5524/W524 B Discharge Recommendation: IP Rehab Equipment Needed: (tbd) Assessment Pt presents with the listed deficits and decreased functional mobility. Bed Mobility demo'd SBA with use of bed features. Transfers demo'd Real. Ambulation demo'd with use of FWW at Real. Pt limited by visual deficits, dizziness, fatigue, weakness and decreased endurance. Increased time required to complete tasks d/t fatigue. PT goals progressing. Pt would benefit from continued skilled PT. Pt would tolerate 15 hours of therapy a day. Recommend IP Rehab at discharge. Subjective Pt side lying. Agreeable to therapy. RN cleared for PT. Pain: Pt denies any current pain. Medical Precautions: No active isolations Proper PPE donned/doffed in accordance with facility standards. Fall Risk: Llamas Fall Risk Score: 45 (High Risk) Overall Cognitive Status: WFL Overall Orientation Status: Oriented x4 Family/Caregiver Present: none Objective Bed Mobility Supine to sit: SBA Sit to supine: SBA Scooting: SBA Increased time and effort required to complete. HOB elevated with use of bed rails. Cues for sequencing required. Required increased time to complete but no physical assist. Slow transitions noted. Denies dizziness. Transfers/Mobility Sit to stand: Min Assist Stand to sit: Min Assist Toilet: Min Assist X 3 from EOB. Good anterior wt shift noted. Cues for proper hand and foot placement. Wanting to pull up on FWW. Cues to reach for safety awareness and maintain eccentric control when returning to seated surface. Pt "plopping" when returning to seated surface. Use of grab bars from toilet. Cues for upright posture. Notable posting against bed to maintain stability. No LOB. Slight sway and unsteadiness noted. Denies dizziness. Device(s) used: front wheeled walker Ambulation Ambulation 1 Assistive device(s) used: front wheeled walker Assist level: Min Assist Distance (ft): 125 ft x 2 Quality of gait: short reciprocal stepping, decreased B foot clearance, shuffling, uneven step length, narrow TAMI, slow mely, postural sway, path deviations, instability through all phases Cues for obstacle negotiation and FWW management and safety. Pt cued to maintain TAMI within FWW. Cued to maintain close proximity to FWW. Cues for continuous reciprocal gait with increased step height and length to normalize gait pattern. Limited carryover noted. X 4 LOB with assist from this SOLOIST DANCER to recover. Cues for management and safety when turning with use of FWW. Cues for upright posture with some carryover. Denies dizziness and increase in pain. General instability/unsteadiness. Seated rest break between ambulations. Ambulation 2 Assistive device(s) used: front wheeled walker Assist level: Min Assist Distance (ft): 25ft x 2 Quality of gait: See above Balance: Balance activities performed reaching outside TAMI for pericare, hand hygiene and face washing. Pt able to perform with intermittent UE support. Able to shawn and doff brief without assist and with use of grab bar Posture: fair Sitting - Static: Supervision Sitting - Dynamic: Supervision Standing - Static: Contact Guard Standing - Dynamic: Contact Guard, Min Assist Exercises Exercises Quad Sets: BLE AROM x 3 reps Heelslides: BLE AROM x 4 reps in sitting Gluteal Sets: BLE AROM x 3 reps Knee Long Arc Quad: BLE AROM x 5 reps Ankle Pumps: BLE AROM x 10 reps Comments: Increased time and cues required for performance. Verbal and tactile cues needed. Educated on benefits of performing exercise throughout the day. Recommend 2-3 sets of 10 reps x 2-3 times a day. Pt verbalized understanding. Heart Failure on Admission Dyspnea: Yes Heart failure diagnosis: No dyspnea with moderate exertion (NYHA class II) Plan Continue acute PT per plan of care. Safety/Education Safety Safety Devices in place: All fall risk precautions in place, call light within reach, gait belt, patient at risk for falls, nurse notified, and patient positioned onto transport cart of Restraints: No Education Education Given To: patient Education Provided: PT Role, PT Goals, Gait Training, Plan of Care, Home Exercise Program, Precautions, Transfer Training, Energy Conservation, Equipment, Fall Prevention Education, Discharge Recommendations, Benefits of Increasing Activity, and Breathing Techniques Education Method: Verbal, Demonstration, and Teach Back Barriers to Learning: None Education Outcome: Verbalized Understanding, Demonstrated Understanding, and Continued Education Needed Outcome Measures AM-PAC AM-PAC Inpatient Mobility Raw Score (No Stairs) : 17 [facility] Score: Walked 250 ft or more (i.e. several laps on unit) Goals Patient Stated Goal: to go home Encounter Problems Encounter Problems (Active) Mobility Patient will ambulate 150 feet with min assist and least restrictive device in order to improve safety and independence with mobility. (Progressing) Start: 03/19/24 Patient will ascend and descend 5 stairs with no assistive device and min assist in order to safely negotiate home. (Not Addressed) Start: 03/19/24 Pain - Adult Transfers Patient will perform bed mobility with modified independence in order to improve independence and prepare for out of bed mobility. (Progressing) Start: 03/19/24 Patient will complete functional transfer with one hand hold with modified independence in order to prepare for ambulation. (Progressing) Start: 03/19/24 Therapy Time Individual Co-treatment Time In 0900 Time Out 0924 Minutes 24 Timed Code Treatment Minutes: 23 Minutes (GENNARO, GT) SOLOIST DANCER wore PPE in compliance with hospital guidelines and regulation when treating this patient. Padmini Khan, SOLOIST DANCER Images from the original note were not included. Speech-Language Pathology SPEECH LANGUAGE PATHOLOGY [facility] Language Treatment Note Patient Name: Neil Wellington Evaluation Date: 03/26/2024 Date of : 1970 Admission Date: 03/15/2024 7:36 PM Age: 53 y.o. Room/Bed: [facility] B Subjective Patient awakened easily and was cooperative. Appeared frustrated by her communication difficulty. Pain: Pt denies any current pain. PPE Worn: not applicable Objective & Assessment Language Treatment # of Activities: 1 Language Activity 1: expressive language tasks Patient completed mild-moderate level responsive naming tasks with 25% accuracy. With phonemic cueing and more descriptions, accuracy improved to 63%. Able to name a maximum of one item in a stated category but was able to increase to 3 with cues. Did not attempt reading/writing tasks due to visual deficits. Plan & Recommendations Continue acute [employer] DECK [employer]OVER therapy per initial plan of care and established goals. D/C Recommendations: ongoing speech therapy at next level of care Education Education Given: role of therapy, communication Given To: patient Response: verbalizes understanding Goals Patient Stated Goal: to be done with therapy Encounter Problems Encounter Problems (Active) Speech/Language/Cognition Patient will name objects/items in environment or functional pictures with 75% accuracy (Progressing) Start: 03/19/24 Expected End: 04/02/24 Patient will participate with evaluation of reading comprehension and graphic expression. (Not Addressed) Start: 03/19/24 Expected End: 04/02/24 Encounter Problems (Resolved) [facility]OVER Misc Misc 1 (Completed) Start: 03/19/24 Expected End: 04/02/24 Resolved: 03/20/24 Goal Note Patient will follow 3 step commands x 80% Therapy Time [facility] Individual Minutes Time In: 1055 Time Out: 1110 Minutes: 15 Patti Gaston MA, CCC/[facility]OVER Department of Internal Medicine Division of Endocrinology, Diabetes, & Metabolism Endocrinology Note Patient Name: Neil Wellington : 1970 AGE: 53 y.o. Room/Bed: [facility]/[address] Admission Date: 03/15/2024 Visit Date: 03/26/2024 Reason for Endocrine Consult: uncontrolled DM Provider/Team Requesting Consult: Cardiology PCP: Luz Mcdermott Outpt Peanut Cleaner: No ASSESSMENT: Uncontrolled DM2 with correction insulin Med noncompliance NSTEMI-stents placed 03/16/24 CKD 3 Depression Tobacco abuse HTN/HLP Poor vision Psoriatic arthritis PLAN: Keep lantus to 26 units HS Keep Humalog units before meals Continue Humalog low dose SS Add humalog HS scale dose 4 units PRN if eats late snack Psych consult for depression- refusing psych meds Refusing diabetes education ICU goal <180 GMF goal <150 POCT BG ACHS Hypoglycemia management per protocol Carb controlled diet ANTICIPATED ENDOCRINE HOME GOING RECOMMENDATIONS: Optimized for Discharge from Endocrine standpoint: yes Home Going Endocrine Rx Recommendations-- Please continue current insulins to [facility] Outpt Follow Up-- PCP SUBJECTIVE/HPI: CHIEF COMPLAINT: No chief complaint on file. Patient presented to [facility] ED with CP radiating down left arm and jaw pain started 03/13/24 Patient transferred from [facility] had there -for NSTEMI--for CABG vs stents--patient declines surgery Had heart cath and stents placed at [facility] 03/16/24 EF improved on ANNY after stents placed ( was 44% at [facility]) Today patient is resting in bed, barely opens eyes Endorses not taking any medications ordered for more than year Reviewed PCP not from care everywhere 07/2023 states depression reason for not taking medications--patient states ahe did npot follow up with PCP at that visit was advised ED for HTN and patient refused--states memory issues at that time--does not look like mediction for depression was discussed Today she says she does not care Reviewed A1c and need for insulin here but we need to discuss plan. Patient just states I don't care several times in trying determine what plan of treatment she is willing to do--discussed with Dr Caal will place psych consult Asked about appetite and what she ate--I don't remember Per nursing ate eggs and hungarian toast for BF Interval events BGL below- elevated Resting in chair VSS RA Flat affect Had all of bfast just finished eating Cannot recall if had late snack Did eat dinner last night She denies nv abd pain No family in room Will go to [facility] rehab vs home snf near her hometown with family Spoke with nursing Remains on on GMF- waiting for rehab bed Type of DM: DM2 Onset of DM: age 51 Home DM Medication Regimen: was ordered but not clear if she ever took regularly DM control (last A1c/glucose data): Lab Results Component Value Date HGBA1C 13.3 (H) 03/16/2024 Glucose Date/Time Value Ref Range Status 03/26/2024 07:35 AM 181 (H) 70 - 100 mg/dL Final 03/25/2024 07:44 PM 267 (H) 70 - 100 mg/dL Final 03/25/2024 06:01 PM 128 (H) 70 - 100 mg/dL Final 03/25/2024 11:41 AM 271 (H) 70 - 100 mg/dL Final 03/25/2024 07:38 AM 226 (H) 70 - 100 mg/dL Final 03/24/2024 08:28 PM 221 (H) 70 - 100 mg/dL Final Review of Systems Respiratory: Negative for chest tightness and shortness of breath. Cardiovascular: Negative for chest pain. Skin: Negative for wound. Neurological: Negative for numbness. Psychiatric/Behavioral: Positive for behavioral problems. ROS negative except for those mentioned in HPI. OBJECTIVE: Vitals: 03/25/24 2344 03/26/24 0325 03/26/24 0544 03/26/24 0736 BP: 147/66 108/59 128/80 125/78 BP Location: Right arm Left arm Patient Position: Lying Sitting Pulse: 80 77 96 92 Resp: 16 18 16 Temp: (!) 35.8 C (96.5 F) 36.5 C (97.7 F) 36.4 C (97.6 F) TempSrc: Temporal Temporal Temporal SpO2: 94% 96% 96% 96% Weight: 199 lb 6.4 oz (90.4 kg) Height: Physical Exam Vitals and nursing note reviewed. Constitutional: General: She is awake. She is not in acute distress. Appearance: She is obese. Eyes: Conjunctiva/sclera: Conjunctivae normal. Cardiovascular: Rate and Rhythm: Normal rate. Pulses: Normal pulses. Pulmonary: Breath sounds: Normal breath sounds. Abdominal: General: Bowel sounds are normal. Tenderness: There is no guarding. Musculoskeletal: General: No swelling. Normal range of motion. Skin: General: Skin is warm and dry. Neurological: Mental Status: She is alert and oriented to person, place, and time. Mental status is at baseline. Psychiatric: Attention and Perception: She is inattentive. Mood and Affect: Mood is depressed. Behavior: Behavior is slowed and withdrawn. Comments: 24 hour intake/output: Intake/Output Summary (Last 24 hours) at 03/26/2024 0954 Last data filed at 03/26/2024 0646 Gross per 24 hour Intake 1080 ml Output 700 ml Net 380 ml Diet: Adult diet Regular; 4 carb choices (60 gm/meal); Low Fat/Low Chol/High Fiber/2 gm Na Medications (as per EMR): HomeMeds: No current outpatient medications Scheduled Meds:aspirin, 81 mg, Oral, Daily carvedilol, 6.25 mg, Oral, BID WC enoxaparin, 40 mg, SubCUTAneous, Daily insulin glargine, 26 Units, SubCUTAneous, Nightly insulin lispro, 0-12 Units, SubCUTAneous, TID WC insulin lispro, 24 Units, SubCUTAneous, TID WC losartan, 50 mg, Oral, Daily polyethylene glycol (PEG) 3350, 17 g, Oral, Daily rosuvastatin, 40 mg, Oral, Nightly senna-docusate sodium, 2 tablet, Oral, Daily ticagrelor, 90 mg, Oral, BID Continuous Infusions: PRN Meds:PRN medications: [Held by provider] acetaminophen OR [Held by provider] acetaminophen OR [Held by provider] acetaminophen, dextrose, dextrose, glucagon (rDNA), glucose, insulin lispro, ipratropium-albuterol, naloxone, nitroglycerin, ondansetron ODT OR ondansetron, sodium chloride Diagnostic Workup: I reviewed pertinent Laboratory results, Radiographic results, and Other Clinical Notes at the time of today's encounter. Labs: No components found for: "LABA1C" No components found for: "EAG" Lab Results Component Value Date NA 135 03/26/2024 K 4.5 03/26/2024 CL 103 03/26/2024 CO2 21 (L) 03/26/2024 BUN 25 (H) 03/26/2024 CREATININE 1.22 (H) 03/26/2024 GLUCOSE 179 (H) 03/26/2024 CALCIUM 9.2 03/26/2024 Lab Results Component Value Date CHOL 173 03/16/2024 Lab Results Component Value Date TRIG 150 (H) 03/16/2024 Lab Results Component Value Date HDL 39 (L) 03/16/2024 Lab Results Component Value Date LDLCALC 104 (H) 03/16/2024 No results found for: "VLDL" Lab Results Component Value Date CHOLHDLRATIO 4 03/16/2024 No results found for: "[id number]" Lab Results Component Value Date TSH 1.923 03/16/2024 Radiology reportsas per the Radiologist Radiology: POCT glucose meter Result Date: 03/16/2024 Performed by: [facility], [address] [place] [id number] CLIA ID: [id number] POCT glucose meter Result Date: 03/16/2024 Performed by: [facility], [address] [place] [address] [id number] CLIA ID: [id number] POCT ACT Result Date: 03/16/2024 Performed by: [facility], [address] [place] [address] [id number] CLIA ID: [id number] POCT ACT Result Date: 03/16/2024 Performed by: [facility], [address] [place] [address] [id number] CLIA ID: [id number] POCT ACT Result Date: 03/16/2024 Performed by: [facility], [address] [place] [address] [id number] CLIA ID: [id number] ECG 12 lead Sinus rhythm Right axis deviation Abnormal T, consider ischemia, lateral leads ST elevation, consider inferior injury Cardiac procedure Result Date: 03/16/2024 - Successful IVUS guided PCI of ostial to mid circumflex artery with deployment of 3.0 mm x 48 mm Synergy KINGSLEY - Successful IVUS guided PCI of ostial RCA with deployment of 4.0 mm x 12 mm Xience KINGSLEY - Medical therapy for mild to moderate disease of LAD and ramus POCT glucose meter Result Date: 03/16/2024 Performed by: [facility], [address] [place] [address] [id number] CLIA ID: [id number] POCT glucose meter Result Date: 03/15/2024 Performed by: [facility], [address] [place] [address] [id number] CLIA ID: [id number] XR chest 1 view Result Date: 03/15/2024 Patient Name: NEIL WELLINGTON : 1970 Exam Date/Time: 03/15/2024 20:23 Procedure: XR CHEST 1 VIEW Ordering Provider: ORTIZ JOSEPH Reason For Exam: Shortness of breath PORTABLE CHEST: INDICATION: Shortness of breath COMPARISON: No previous studies are available for comparison. Obtained at 2020. A single portable AP radiograph of the chest was obtained. The heart is borderline in size. The mediastinal silhouette is normal. There is mild vascular congestion. No effusions or acute infiltrates. There is no pleural thickening. The osseous structures are unremarkable. Mild vascular congestion. Report Dictated on Electronically Signed By: Jordan Davies DO Electronically Signed Date/Time: 03/15/2024 10:47 PM EDT ECG 12 lead Sinus rhythm Probable left atrial enlargement Abnormal T, consider ischemia, lateral leads ST elevation, consider inferior injury History/Other: Past Medical History: History reviewed. No pertinent past medical history. Past Surgical History: Past Surgical History: Procedure Laterality Date CARDIAC CATHETERIZATION N/A 03/16/2024 Performed by Maximo Max MD at [facility] Cardiac Cath/EP Lab CARDIAC CATHETERIZATION N/A 03/16/2024 Performed by Maximo Max MD at [facility] Cardiac Cath/EP Lab CARDIAC CATHETERIZATION N/A 03/16/2024 Performed by Maximo Max MD at [facility] Cardiac Cath/EP Lab Allergy(ies): No Known Allergies Family History: No family history on file. Social History: Social History Tobacco Use Smoking status: Unknown Portions of the information within this encounter were entered using an electronic dictation system. Best attempts were made to edit/proofread the information prior to note completion. Despite the review of information, some errors may remain. If there are questions related to the information contained within the note please contact the signing physician directly. I spent 15 minutes with the pt which involved coordination of care, medical evaluation, review of records, and/or counseling of the pt regarding his/her condition/disease state/prognosis on the date of this note. Associated attestation - Rosamaria Urban MD - 03/26/2024 1:53 PM EDT Attending Supervising Physician's Attestation Statement I performed a history and physical examination on the patient and discussed the management with the nurse practitioner. I reviewed and agree with the findings and plan as documented in her note. Patient with type 2 diabetes No overnight events Patient seen at bedside. Asleep but arousable , answers with eyes closed. Has been tolerating diet without any GI issues Noted plans for placement On exam she is obese, sleepy CVS RRR Abdomen B/L AE + No lower extremity edema Assessment: Type 2 DM with complications, uncontrolled, on long-term insulin Type 2 DM with hyperglycemia CAD/NSTEMI s/p PCI Acute CVA Depression Poor compliance with therapy Tobacco abuse Vision impairment Recommendations: Current sugars are improving, no changes to insulin regimen today. Noted plans for discharge to rehab- continue current doses of insulin on discharge to rehab Portions of the information within this encounter were entered using an electronic dictation system. Best attempts were made to edit/proofread the information prior to note completion. Despite the review of information, some errors may remain. If there are questions related to the information contained within the note please contact the signing physician directly. I spent 20 minutes with the pt which involved coordination of care, medical evaluation, review of records, and/or counseling of the pt regarding his/her condition/disease state/prognosis on the date of this note. Med Team Progress Note Neil Wellington : 1970(53 y.o.) Date: March 26, 2024 Med Team: [place] Attending: Dr. Guero Monson Chief Complaint: NSTEMI, Stroke Subjective: - Acute events per evening team: Mrs. Wellington reported headache localized to center of the forehead. Reported no new neurologic changes. Received does of acetaminophen. - Mrs. Wellington was seen this morning with no acute complaints. Per case management, bed available at [facility] near her family ([place], [place]), will have authorization filed today. - She endorses some mouth dryness and some speech difficulty, is slow to respond to questioning. PRN meds used in last 24hrs: Tylenol Patient seen and examined on teaching rounds this AM. I agree with the above. See later note from Dr. Harper as she developed additional complaints this afternoon related to headache and vision changes. Review of Systems Constitutional: Negative for chills, diaphoresis and fever. Respiratory: Negative for cough, shortness of breath and wheezing. Cardiovascular: Negative for chest pain, palpitations and leg swelling. Gastrointestinal: Negative for abdominal pain, constipation, diarrhea, nausea and vomiting. Genitourinary: Negative for dysuria, frequency and urgency. Neurological: Positive for speech difficulty. Negative for weakness, light-headedness and headaches. Scheduled Meds:aspirin, 81 mg, Oral, Daily carvedilol, 6.25 mg, Oral, BID WC enoxaparin, 40 mg, SubCUTAneous, Daily insulin glargine, 26 Units, SubCUTAneous, Nightly insulin lispro, 0-12 Units, SubCUTAneous, TID WC insulin lispro, 24 Units, SubCUTAneous, TID WC losartan, 50 mg, Oral, Daily polyethylene glycol (PEG) 3350, 17 g, Oral, Daily rosuvastatin, 40 mg, Oral, Nightly senna-docusate sodium, 2 tablet, Oral, Daily ticagrelor, 90 mg, Oral, BID Objective: BP 125/78 (BP Location: Left arm, Patient Position: Sitting) Pulse 92 Temp 36.4 C (97.6 F) (Temporal) Resp 16 Ht 5' 2" (1.575 m) Wt 199 lb 6.4 oz (90.4 kg) SpO2 96% BMI 36.47 kg/m Physical Exam Vitals reviewed. Constitutional: General: She is not in acute distress. Appearance: She is obese. She is not ill-appearing, toxic-appearing or diaphoretic. HENT: Head: Normocephalic and atraumatic. Mouth/Throat: Mouth: Mucous membranes are dry. Pharynx: Oropharynx is clear. Eyes: General: No scleral icterus. Conjunctiva/sclera: Conjunctivae normal. Cardiovascular: Rate and Rhythm: Normal rate and regular rhythm. Pulses: Normal pulses. Heart sounds: Normal heart sounds. No murmur heard. No friction rub. No gallop. Pulmonary: Effort: Pulmonary effort is normal. Breath sounds: Normal breath sounds. No wheezing, rhonchi or rales. Abdominal: General: Abdomen is flat. There is no distension. Palpations: Abdomen is soft. Tenderness: There is no abdominal tenderness. Musculoskeletal: General: Normal range of motion. Right lower leg: No edema. Left lower leg: No edema. Skin: General: Skin is warm and dry. Neurological: Mental Status: She is alert. Comments: Some word finding difficulty [facility] within last 24 hours Auto WBC Date Value Ref Range Status 03/26/2024 14.9 (H) 3.6 - 10.7 10*3/uL Final Hemoglobin Date Value Ref Range Status 03/26/2024 13.1 11.7 - 16.0 g/dL Final Hematocrit Date Value Ref Range Status 03/26/2024 39.6 35.0 - 47.0 % Final Platelets Date Value Ref Range Status 03/26/2024 329 140 - 440 10*3/uL Final MCV Date Value Ref Range Status 03/26/2024 86.1 77.0 - 99.0 fL Final SODIUM Date Value Ref Range Status 03/26/2024 135 135 - 145 mmol/L Final POTASSIUM Date Value Ref Range Status 03/26/2024 4.5 3.5 - 5.1 mmol/L Final CHLORIDE Date Value Ref Range Status 03/26/2024 103 98 - 107 mmol/L Final CARBON DIOXIDE Date Value Ref Range Status 03/26/2024 21 (L) 22 - 30 mmol/L Final UREA NITROGEN Date Value Ref Range Status 03/26/2024 25 (H) 7 - 17 mg/dL Final CREATININE Date Value Ref Range Status 03/26/2024 1.22 (H) 0.52 - 1.04 mg/dL Final GLUCOSE Date Value Ref Range Status 03/26/2024 179 (H) 70 - 100 mg/dL Final CALCIUM Date Value Ref Range Status 03/26/2024 9.2 8.4 - 10.4 mg/dL Final MAGNESIUM Date Value Ref Range Status 03/26/2024 2.2 1.6 - 2.3 mg/dL Final PHOSPHORUS Date Value Ref Range Status 03/26/2024 4.3 2.5 - 4.5 mg/dL Final AST (SGOT) Date Value Ref Range Status 03/26/2024 85 (H) 15 - 46 U/L Final ALT Date Value Ref Range Status 03/26/2024 121 (H) 0 - 34 U/L Final TOTAL PROTEIN Date Value Ref Range Status 03/26/2024 8.0 6.3 - 8.2 g/dL Final BILIRUBIN, TOTAL Date Value Ref Range Status 03/26/2024 0.8 0.2 - 1.3 mg/dL Final ALKALINE PHOSPHATASE Date Value Ref Range Status 03/26/2024 173 (H) 38 - 126 U/L Final No results found for: "CKTOTAL", "CKMB", "TROPONINI" No results found for: "PROCAL", "CHOL", "TRIG", "HDL", "TSH", "VITD25", "HGBA1C", "VANCOTROUGH" Abdominal US (03/26) - Surgically absent GB, No intrahepatic/extrahepatic dilatation of the bile ducts, normal parenchymal echogenicity of the bilateral kidneys, normal spleen. Assessment and Plan: NSTEMI - S/p LHC (03/16/24) - KINGSLEY to ostial-mid Lcx (85% stenosis) and ostial RCA (80% stenosis), with medical mgmt of mild - moderate disease of LAD disease -LV function preserved post event with EF 65% Plan: - Continue ASA 81 mg daily - Continue Brilinta 90 mg BID - Continue Losartan 50 mg daily for afterload reduction - Continue Coreg 6.25 mg BID daily Agree. VERONA-improving - FENa of 0.9% consistent with pre-renal injury - creatinine bump to 1.25 on 03/23/24, up from 0.91 on 03/21/24 consistent with KDIGO criteria - up to 1.22 today, she is quite dry on exam, I encouraged adequate PO fluid intake Transaminitis - AST of 85, ALT of 121 today, and elevated Alk Phos at 173 - Uptrending since Mar 21, abdominal US ordered to evaluate US unremarkable. Agree. I'm not sure the cause, but it is pretty mild at this point. Continue to monitor. We thought about stopping acetaminophen altogether, but it is helping her headache symptoms and other options are even less desirable for her. Continue for now, but monitor. 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 Having intermittent headaches (none on my encounter this AM but returned this PM). Complains of vision changes but history isn't clear if these are new/evolving. Regardless, we got a CT scan this afternoon which showed evolutionary changes to infarcts but otherwise no hemorrhage. T2DM - Ha1c 13.3% (03/16/24) - Non-compliant with home regimen (Metformin 500 mg BID daily, Jardiance 10 mg daily, Trulicity 3 mg once weekly) Plan: - Endocrinology recommendations for discharge to SNF include the following: - Continue Lantus 26 units nightly - Humalog insulin units before meals (changed recommendation) - Humalog low dose SS with meals - 4 units with late night snack Agree. Continue current insulin doses per endocrine including on discharge to SNF. Chronic Problems and Follow Up Items: HTN - Continue Losartan 50 mg daily - Continue Coreg 6.25 mg BID daily HLD - Continue Crestor 40 mg nighty HF recovered EF - TTE (03/17/24) - EF 65%, mildly increased wall thickness and moderate (2+) regurgitation Plan: - Continue Losartan 50 mg daily - Continue Coreg 6.25 mg BID daily - Consider starting Farxiga 10 mg daily in outpatient setting given history of T2DM Suspected COPD Tobacco Use - Consider obtaining PFTs outpatient - Encouraged smoking cessation; patient not ready to quit - Goals of Care: FULL CODE - DVT Prophylaxis: Lovenox 40 q24hr - CrCl >30 - GI Prophylaxis: Not Indicated - Diet: Carb-Control and Cardiac I have discussed the care of Neil Wellington with the medical student and/or resident. I have personally taken a history, examined the patient, and performed the associated medical decision making activities. I have reviewed & verified the attested documentation. Unless otherwise noted above, this documentation reflects the history, physical exam, and medical decision making that I performed myself. Please see green and bolded text for my personal highlights or additions to the note. Patient seen and examined by myself on 03/26/24 Images from the original note were not included. OCCUPATIONAL THERAPY [facility] Treatment Note Name/MRN: Neil Wellington ([id number]) Date of : 1970 Age: 53 y.o. Room/Bed: [facility] B Discharge Recommendation: IP Rehab Equipment Needed: (TBD next level of therapy) Prior Level of Function ADL Assistance: Independent Ambulation Assistance: Independent Transfer Assistance: Independent Assessment Cooperative/motivated. Difficulty with negotiating in environment due to visual deficit. Will need ongoing services of neuro emt b/intervention specialist. Suggest intensive rehab level therapies at discharge. Subjective Pt in bed, agrees to OT as requested for insurance precert. Tearful, "I can't see right, everything I used to be able to do is so hard now." Pain: No specific c/o pain this session. Medical Precautions: No active isolations Proper PPE donned/doffed in accordance with facility standards. Fall Risk: Llamas Fall Risk Score: 60 (High Risk) Family/Caregiver Present: none Objective ADLs Grooming: Min Assist, stand at sink to wash hands, complete oral care LE Dressing: Min Assist Toileting: Min Assist Bed Mobility Supine to sit: Supervision Sit to supine: Supervision Transfers/Mobility Sit to stand: Contact Guard Stand to sit: Contact Guard Stand step: Min Assist, for guidance/positioning Toilet: Min Assist Sitting balance: Supervision Standing balance: Min Assist, dynamic tasks; largely due to vision deficit Functional mobility: Min Assist, funct amb with min assist, FWW. Assist to negotiate walker around obstacles due to visual deficit; pt occasionally running into objects in both hemifields. Plan Continue acute OT per plan of care. Safety/Education Safety Safety Devices in place: call light within reach, left in bed, and no alarms engaged upon entry Restraints: N/A Education Walker management Will need ongoing education. AM-PAC AM-PAC Inpatient Daily Activity Raw Score: 19 ADL Inpatient CMS G-Code Modifier: CK Goals Patient Stated Goal: be able to function Encounter Problems Encounter Problems (Active) Balance Patient will maintain dynamic standing balance for 10 minutes with modified independence in order to demonstrate decreased risk of falling. (Progressing) Start: 03/20/24 Expected End: 04/17/24 Bathing Patient will utilize adaptive techniques to bathe body with mod I (Not Addressed) Start: 03/20/24 Expected End: 04/17/24 Dressings Lower Extremities Patient will dress lower body with mod I (Progressing) Start: 03/20/24 Expected End: 04/17/24 Toileting Patient will complete toileting tasks at standard toilet with modified independence. (Progressing) Start: 03/20/24 Expected End: 04/17/24 Transfers Patient will complete functional transfer with no assistive device with independence in order to prepare for ambulation. (Progressing) Start: 03/20/24 Expected End: 04/17/24 Vision Patient will ID 4 # objects in bilateral visual hemispheres with min verbal cues. (Progressing) Start: 03/20/24 Expected End: 04/17/24 Therapy Time Individual Co-treatment Time In 1440 Time Out 1503 Minutes 23 Timed Code Treatment Minutes: (Funct--1; Self--1) MALA Cao Images from the original note were not included. Speech-Language Pathology SPEECH LANGUAGE PATHOLOGY [facility] Language Treatment Note Patient Name: Neil Wellington Evaluation Date: 03/25/2024 Date of : 1970 Admission Date: 03/15/2024 7:36 PM Age: 53 y.o. Room/Bed: [facility] B Subjective Patient alert and cooperative. Seen upright in bedside chair. No visitors at bedside. Spoke with RN, Shalonda, who cleared pt for treatment. Pain: RN managing pain. PPE Worn: gloves Objective & Assessment Activity 1: Naming - semantic feature analysis Pt's visual deficits prohibit pt from identify objects/pictures clearly. Semantic feature analysis was utilized to increase naming function with current word-finding deficits. [employer] provided the pt with an object name, and prompted pt to provided 3-4 attributes per object (function, location, looks like, etc). Pt presented with 67% accuracy in 9 trials. Agitation increases as session progressed. Reading/writing not addressed due to pt preference ("I can't see anything anyways") Plan & Recommendations Plan: Continue acute [employer] therapy per initial plan of care and established goals. D/C Recommendations: to be determined Education Education Given: communication Given To: patient and RN Response: verbalizes understanding Goals Patient Stated Goal: "Can I just lay down" Encounter Problems Encounter Problems (Active) Speech/Language/Cognition Patient will name objects/items in environment or functional pictures with 75% accuracy (Progressing) Start: 03/19/24 Expected End: 04/02/24 Patient will participate with evaluation of reading comprehension and graphic expression. (Not Progressing) Start: 03/19/24 Expected End: 04/02/24 Encounter Problems (Resolved) HULL AND DECK REMOVER Misc Misc 1 (Completed) Start: 03/19/24 Expected End: 04/02/24 Resolved: 03/20/24 Goal Note Patient will follow 3 step commands x 80% Therapy Time HULL AND DECK REMOVER Individual Minutes Time In: 1000 Time Out: 1017 Minutes: 17 Jessica Solis CCC-HULL AND DECK REMOVER Images from the original note were not included. PHYSICAL THERAPY [facility] Treatment Note Name/MRN: Neil Wellington ([id number]) Date of : 1970 Age: 53 y.o. Room/Bed: 5524/5[facility]4 B Discharge Recommendation: IP Rehab Equipment Needed: (tbd) Assessment The pt is continuing to make progress towards her goals and will continue to benefit from therapy to improve her overall functional capacity. The pt would benefit from 15 hours of therapy a week, and she would be able to participate with intense therapies. IP REHAB is recommended at discharge. CGA to Min assist was required for mobility. Overall endurance remains below baseline per pt report and her limited vision did also hinder her balance. Pt did present with several episodes of unsteadiness and required assist to correct. Seated rest breaks were needed secondary to fatigue. Subjective Pt in bed and agreed to PT. Pt reported feeling tired. Pain: Pt denies any current pain. Medical Precautions: No active isolations Proper PPE donned/doffed in accordance with facility standards. Fall Risk: Llamas Fall Risk Score: 60 (High Risk) Precautions/Restrictions: Lines/Drains/Airways: IV, tele Overall Cognitive Status: Exceptions - Arousal/alertness: appropriate responses to stimuli - Following commands: follows one step commands consistently - Attention span: attends with cues to redirect - Memory: decreased short term memory - Safety judgement: decreased awareness of need for assistance - Problem solving: decreased awareness of errors - Insights: pt presented as aware of her limitations - Initiation: requires cues for some - Sequencing: requires cues for some Overall Orientation Status: Oriented to Place and Oriented to Person Family/Caregiver Present: none Objective Bed Mobility Supine to sit: Min Assist Sit to supine: SBA Rolling to right: Supervision Rolling to left: Supervision Scooting: Supervision Use of rails and hand held assist. Increased time needed. Transfers/Mobility Sit to stand: Min Assist Stand to sit: Min Assist 3 trials from EOB to FWW with cues. Device(s) used: front wheeled walker Ambulation Ambulation 1 Assistive device(s) used: front wheeled walker Assist level: Min Assist Distance (ft): 130 Quality of gait: step through pattern, decreased velocity and step length, unsteady with turns and maneuvering around objects Ambulation 2 Assistive device(s) used: front wheeled walker Assist level: Min Assist Distance (ft): 155 Quality of gait: decreased velocity and step length and height, intermittent unsteadiness with assist to correct balance. Cues for posture provided intermittently. Balance: Pt able to stand with near upright posture for greater than one minute with UE support. Pt able to stand with UE support and demonstrate anterior trunk lean with correction to neutral with UE assist without LOB on second standing trail, time greater than one minute. Posture: fair Sitting - Static: Supervision Sitting - Dynamic: SBA Standing - Static: Contact Guard Standing - Dynamic: Min Assist Exercises Exercises Straight Leg Raise: x8 bilat Hip Flexion: x8 bilat Hip Abduction: x10 bilat in sidelying. Knee Long Arc Quad: x10 seated cues for eccentric control Ankle Pumps: x10 bilat Comments: Increased time and cues required for performance. Verbal and tactile cues needed. Plan Continue acute PT per plan of care. Safety/Education Safety Safety Devices in place: call light within reach, left in bed, gait belt, and no alarms engaged upon entry Restraints: No Education Education Given To: patient Education Provided: PT Role, PT Goals, Gait Training, Plan of Care, and Transfer Training Education Method: Verbal Barriers to Learning: cognition Education Outcome: Verbalized Understanding and Continued Education Needed Outcome Measures AM-PAC AM-PAC Inpatient Mobility Raw Score (No Stairs) : 16 JH-HLM JH-HLM Score: Walked 250 ft or more (i.e. several laps on unit) Goals Patient Stated Goal: to go home Encounter Problems Encounter Problems (Active) Mobility Patient will ambulate 150 feet with min assist and least restrictive device in order to improve safety and independence with mobility. (Progressing) Start: 03/19/24 Patient will ascend and descend 5 stairs with no assistive device and min assist in order to safely negotiate home. (Not Addressed) Start: 03/19/24 Pain - Adult Transfers Patient will perform bed mobility with modified independence in order to improve independence and prepare for out of bed mobility. (Progressing) Start: 03/19/24 Patient will complete functional transfer with one hand hold with modified independence in order to prepare for ambulation. (Progressing) Start: 03/19/24 Therapy Time Individual Co-treatment Time In 916 (one gait, one TP) Time Out 0940 Minutes 23 Timed Code Treatment Minutes: 23 Minutes Ricky Pearson PT Department of Internal Medicine Division of Endocrinology, Diabetes, & Metabolism Endocrinology Note Patient Name: Neil Wellington : 1970 AGE: 53 y.o. Room/Bed: [facility] B Admission Date: 03/15/2024 Visit Date: 03/25/2024 Reason for Endocrine Consult: uncontrolled DM Provider/Team Requesting Consult: Cardiology PCP: Luz Mcdermott Outpt Peanut Cleaner: No ASSESSMENT: Uncontrolled DM2 with correction insulin Med noncompliance NSTEMI-stents placed 03/16/24 CKD 3 Depression Tobacco abuse HTN/HLP Poor vision Psoriatic arthritis PLAN: Keep lantus to 26 units HS Increase Humalog units before meals Continue Humalog low dose SS Add humalog HS scale dose 4 units PRN if eats late snack Psych consult for depression- refusing psych meds Refusing diabetes education ICU goal <180 GMF goal <150 POCT BG ACHS Hypoglycemia management per protocol Carb controlled diet ANTICIPATED ENDOCRINE HOME GOING RECOMMENDATIONS: Optimized for Discharge from Endocrine standpoint: yes Home Going Endocrine Rx Recommendations-- Please continue current insulins to [facility] Out[facility] Follow Up-- PCP SUBJECTIVE/HPI: CHIEF COMPLAINT: No chief complaint on file. Patient presented to [facility] ED with CP radiating down left arm and jaw pain started 03/13/24 Patient transferred from [facility] had there -for NSTEMI--for CABG vs stents--patient declines surgery Had heart cath and stents placed at [facility] 03/16/24 EF improved on ANNY after stents placed ( was 44% at [facility]) Today patient is resting in bed, barely opens eyes Endorses not taking any medications ordered for more than year Reviewed PCP not from care everywhere 07/2023 states depression reason for not taking medications--patient states ahe did npot follow up with PCP at that visit was advised ED for HTN and patient refused--states memory issues at that time--does not look like mediction for depression was discussed Today she says she does not care Reviewed A1c and need for insulin here but we need to discuss plan. Patient just states I don't care several times in trying determine what plan of treatment she is willing to do--discussed with Dr Caal will place psych consult Asked about appetite and what she ate--I don't remember Per nursing ate eggs and hungarian toast for BF Interval events BGL below- elevated Resting in chair OT in room VSS RA Flat affect Had all of bfast- eggs and sides (cannot recall) Had late snack Did eat dinner last night She denies nv abd pain No family in room Advised to not snack on candy while here Does not want to take home insulins Will plan for this on DC Will go to [facility] rehab vs home snf near her hometown with family Spoke with nursing Remains on on GMF- waiting for rehab bed Type of DM: DM2 Onset of DM: age 51 Home DM Medication Regimen: was ordered but not clear if she ever took regularly DM control (last A1c/glucose data): Lab Results Component Value Date HGBA1C 13.3 (H) 03/16/2024 Glucose Date/Time Value Ref Range Status 03/25/2024 07:38 AM 226 (H) 70 - 100 mg/dL Final 03/24/2024 08:28 PM 221 (H) 70 - 100 mg/dL Final 03/24/2024 04:42 PM 294 (H) 70 - 100 mg/dL Final 03/24/2024 11:47 AM 175 (H) 70 - 100 mg/dL Final 03/24/2024 07:29 AM 192 (H) 70 - 100 mg/dL Final 03/23/2024 07:43 PM 262 (H) 70 - 100 mg/dL Final Review of Systems Respiratory: Negative for chest tightness and shortness of breath. Cardiovascular: Negative for chest pain. Skin: Negative for wound. Neurological: Negative for numbness. Psychiatric/Behavioral: Positive for behavioral problems. ROS negative except for those mentioned in HPI. OBJECTIVE: Vitals: 03/24/24 2028 03/24/24 2336 03/25/24 0329 03/25/24 0739 BP: 100/61 103/79 96/63 122/62 BP Location: Left arm Patient Position: Lying Pulse: 88 86 83 82 Resp: 16 16 16 18 Temp: 36.9 C (98.4 F) 36.7 C (98 F) 36.4 C (97.6 F) 36.6 C (97.9 F) TempSrc: Temporal Temporal Temporal Temporal SpO2: 97% 98% 93% 93% Weight: 199 lb 14.4 oz (90.7 kg) Height: Physical Exam Vitals and nursing note reviewed. Constitutional: General: She is awake. She is not in acute distress. Appearance: She is obese. Eyes: Conjunctiva/sclera: Conjunctivae normal. Cardiovascular: Rate and Rhythm: Normal rate. Pulses: Normal pulses. Pulmonary: Breath sounds: Normal breath sounds. Abdominal: General: Bowel sounds are normal. Tenderness: There is no guarding. Musculoskeletal: General: No swelling. Normal range of motion. Skin: General: Skin is warm and dry. Neurological: Mental Status: She is alert and oriented to person, place, and time. Mental status is at baseline. Psychiatric: Attention and Perception: She is inattentive. Mood and Affect: Mood is depressed. Behavior: Behavior is slowed and withdrawn. Comments: 24 hour intake/output: Intake/Output Summary (Last 24 hours) at 03/25/2024 0905 Last data filed at 03/25/2024 0644 Gross per 24 hour Intake 940 ml Output 900 ml Net 40 ml Diet: Adult diet Regular; 4 carb choices (60 gm/meal); Low Fat/Low Chol/High Fiber/2 gm Na Medications (as per EMR): HomeMeds: No current outpatient medications Scheduled Meds:aspirin, 81 mg, Oral, Daily carvedilol, 6.25 mg, Oral, BID WC enoxaparin, 40 mg, SubCUTAneous, Daily insulin glargine, 26 Units, SubCUTAneous, Nightly insulin lispro, 0-12 Units, SubCUTAneous, TID WC insulin lispro, 20 Units, SubCUTAneous, TID WC losartan, 50 mg, Oral, Daily polyethylene glycol (PEG) 3350, 17 g, Oral, Daily rosuvastatin, 40 mg, Oral, Nightly senna-docusate sodium, 2 tablet, Oral, Daily ticagrelor, 90 mg, Oral, BID Continuous Infusions: PRN Meds:PRN medications: acetaminophen OR acetaminophen OR acetaminophen, dextrose, dextrose, glucagon (rDNA), glucose, insulin lispro, ipratropium-albuterol, naloxone, nitroglycerin, ondansetron ODT OR ondansetron, sodium chloride Diagnostic Workup: I reviewed pertinent Laboratory results, Radiographic results, and Other Clinical Notes at the time of today's encounter. Labs: No components found for: "LABA1C" No components found for: "EAG" Lab Results Component Value Date NA 132 (L) 03/25/2024 K 4.6 03/25/2024 CL 103 03/25/2024 CO2 20 (L) 03/25/2024 BUN 23 (H) 03/25/2024 CREATININE 1.11 (H) 03/25/2024 GLUCOSE 193 (H) 03/25/2024 CALCIUM 9.4 03/25/2024 Lab Results Component Value Date CHOL 173 03/16/2024 Lab Results Component Value Date TRIG 150 (H) 03/16/2024 Lab Results Component Value Date HDL 39 (L) 03/16/2024 Lab Results Component Value Date LDLCALC 104 (H) 03/16/2024 No results found for: "VLDL" Lab Results Component Value Date CHOLHDLRATIO 4 03/16/2024 No results found for: "[id number]" Lab Results Component Value Date TSH 1.923 03/16/2024 Radiology reportsas per the Radiologist Radiology: POCT glucose meter Result Date: 03/16/2024 [facility]formed [facility]: [facility], [address] [place] [id number] CLIA ID: [id number] POCT glucose meter Result Date: 03/16/2024 [facility]formed by: [facility], [address] [place] [id number] CLIA ID: [id number] POCT ACT Result Date: 03/16/2024 Performed by: [facility], [address] [place] [id number] CLIA ID: [id number] POCT ACT Result Date: 03/16/2024 [facility]formed by: [facility], [address] [place] [id number] CLIA ID: [id number] POCT ACT Result Date: 03/16/2024 Performed by: [facility], [address] [place] [id number] CLIA ID: [id number] ECG 12 lead Sinus rhythm Right axis deviation Abnormal T, consider ischemia, lateral leads ST elevation, consider inferior injury Cardiac procedure Result Date: 03/16/2024 - Successful IVUS guided PCI of ostial to mid circumflex artery with deployment of 3.0 mm x 48 mm Synergy KINGSLEY - Successful IVUS guided PCI of ostial RCA with deployment of 4.0 mm x 12 mm Xience KINGSLEY - Medical therapy for mild to moderate disease of LAD and ramus POCT glucose meter Result Date: 03/16/2024 Performed by: [facility], [address] [place] [id number] CLIA ID: [id number] POCT glucose meter Result Date: 03/15/2024 Performed by: [facility], [address] [place] [id number] CLIA ID: [id number] XR chest 1 view Result Date: 03/15/2024 Patient Name: NEIL WELLINGTON : 1970 Exam Date/Time: 03/15/2024 20:23 Procedure: XR CHEST 1 VIEW Ordering Provider: ORTIZ JOSEPH Reason For Exam: Shortness of breath PORTABLE CHEST: INDICATION: Shortness of breath COMPARISON: No previous studies are available for comparison. Obtained at 2020 hours. A single portable AP radiograph of the chest was obtained. The heart is borderline in size. The mediastinal silhouette is normal. There is mild vascular congestion. No effusions or acute infiltrates. There is no pleural thickening. The osseous structures are unremarkable. Mild vascular congestion. Report Dictated on Electronically Signed By: Jordan Davies DO Electronically Signed Date/Time: 03/15/2024 10:47 PM EDT ECG 12 lead Sinus rhythm Probable left atrial enlargement Abnormal T, consider ischemia, lateral leads ST elevation, consider inferior injury History/Other: Past Medical History: History reviewed. No pertinent past medical history. Past Surgical History: Past Surgical History: Procedure Laterality Date CARDIAC CATHETERIZATION N/A 03/16/2024 Performed by Maximo Max MD at [facility] Cardiac Cath/EP Lab CARDIAC CATHETERIZATION N/A 03/16/2024 Performed by Maximo Max MD at [facility] Cardiac Cath/EP Lab CARDIAC CATHETERIZATION N/A 03/16/2024 Performed by Maximo Max MD at [facility] Cardiac Cath/EP Lab Allergy(ies): No Known Allergies Family History: No family history on file. Social History: Social History Tobacco Use Smoking status: Unknown Portions of the information within this encounter were entered using an electronic dictation system. Best attempts were made to edit/proofread the information prior to note completion. Despite the review of information, some errors may remain. If there are questions related to the information contained within the note please contact the signing physician directly. I spent 25 minutes with the pt which involved coordination of care, medical evaluation, review of records, and/or counseling of the pt regarding his/her condition/disease state/prognosis on the date of this note. Med Team Progress Note Neli Wellington : 1970(53 y.o.) Date: March 25, 2024 Med Team: [place] Attending: Dr. Guero Monson Chief Complaint: NSTEMI, Stroke Subjective: - No acute events overnight. - Currently, pt seen and examined at bedside. Eating breakfast without any acute distress. She continues to have some word finding difficulty but is working with speech therapy. She denies CP, dyspnea, but does c/o some difficulty intermittently breathing through nose. Saturating consistently >92% on room air. She denies abdominal pain. Eating/drinking well. Pt confirms that she no longer wants to go to [facility]. Wants to go to [place] to be closer to her family. Case management aware. PRN meds used in last 24hrs: Tylenol Patient seen and examined with Dr. Harper. I agree with the above. Review of Systems Constitutional: Negative for chills, diaphoresis and fever. HENT: Positive for congestion. Respiratory: Negative for cough, shortness of breath and wheezing. Cardiovascular: Negative for chest pain, palpitations and leg swelling. Gastrointestinal: Negative for abdominal pain, constipation, diarrhea, nausea and vomiting. Genitourinary: Negative for dysuria, frequency and urgency. Neurological: Positive for speech difficulty. Negative for weakness, light-headedness and headaches. Scheduled Meds:aspirin, 81 mg, Oral, Daily carvedilol, 6.25 mg, Oral, BID WC enoxaparin, 40 mg, SubCUTAneous, Daily insulin glargine, 26 Units, SubCUTAneous, Nightly insulin lispro, 0-12 Units, SubCUTAneous, TID WC insulin lispro, 20 Units, SubCUTAneous, TID WC losartan, 50 mg, Oral, Daily polyethylene glycol (PEG) 3350, 17 g, Oral, Daily rosuvastatin, 40 mg, Oral, Nightly senna-docusate sodium, 2 tablet, Oral, Daily ticagrelor, 90 mg, Oral, BID Objective: BP 122/62 (BP Location: Left arm, Patient Position: Lying) Pulse 82 Temp 36.6 C (97.9 F) (Temporal) Resp 18 Ht 5' 2" (1.575 m) Wt 199 lb 14.4 oz (90.7 kg) SpO2 93% BMI 36.56 kg/m Physical Exam Vitals reviewed. Constitutional: General: She is not in acute distress. Appearance: She is obese. She is not ill-appearing, toxic-appearing or diaphoretic. HENT: Head: Normocephalic and atraumatic. Mouth/Throat: Mouth: Mucous membranes are moist. Pharynx: Oropharynx is clear. Eyes: General: No scleral icterus. Conjunctiva/sclera: Conjunctivae normal. Cardiovascular: Rate and Rhythm: Normal rate and regular rhythm. Pulses: Normal pulses. Heart sounds: Normal heart sounds. No murmur heard. No friction rub. No gallop. Pulmonary: Effort: Pulmonary effort is normal. Breath sounds: Normal breath sounds. No wheezing, rhonchi or rales. Abdominal: General: Abdomen is flat. There is no distension. Palpations: Abdomen is soft. Tenderness: There is no abdominal tenderness. Musculoskeletal: General: Normal range of motion. Right lower leg: No edema. Left lower leg: No edema. Skin: General: Skin is warm and dry. Neurological: Mental Status: She is alert. Comments: Some word finding difficulty [facility] within last 24 hours Auto WBC Date Value Ref Range Status 03/25/2024 14.4 (H) 3.6 - 10.7 10*3/uL Final Hemoglobin Date Value Ref Range Status 03/25/2024 13.7 11.7 - 16.0 g/dL Final 03/24/2024 13.8 11.7 - 16.0 g/dL Final Hematocrit Date Value Ref Range Status 03/25/2024 41.6 35.0 - 47.0 % Final Platelets Date Value Ref Range Status 03/25/2024 301 140 - 440 10*3/uL Final MCV Date Value Ref Range Status 03/25/2024 86.0 77.0 - 99.0 fL Final SODIUM Date Value Ref Range Status 03/25/2024 132 (L) 135 - 145 mmol/L Final POTASSIUM Date Value Ref Range Status 03/25/2024 4.6 3.5 - 5.1 mmol/L Final CHLORIDE Date Value Ref Range Status 03/25/2024 103 98 - 107 mmol/L Final CARBON DIOXIDE Date Value Ref Range Status 03/25/2024 20 (L) 22 - 30 mmol/L Final UREA NITROGEN Date Value Ref Range Status 03/25/2024 23 (H) 7 - 17 mg/dL Final CREATININE Date Value Ref Range Status 03/25/2024 1.11 (H) 0.52 - 1.04 mg/dL Final 03/24/2024 1.20 (H) 0.52 - 1.04 mg/dL Final GLUCOSE Date Value Ref Range Status 03/25/2024 193 (H) 70 - 100 mg/dL Final CALCIUM Date Value Ref Range Status 03/25/2024 9.4 8.4 - 10.4 mg/dL Final MAGNESIUM Date Value Ref Range Status 03/25/2024 2.2 1.6 - 2.3 mg/dL Final PHOSPHORUS Date Value Ref Range Status 03/25/2024 4.6 (H) 2.5 - 4.5 mg/dL Final AST (SGOT) Date Value Ref Range Status 03/25/2024 70 (H) 15 - 46 U/L Final ALT Date Value Ref Range Status 03/25/2024 87 (H) 0 - 34 U/L Final TOTAL PROTEIN Date Value Ref Range Status 03/25/2024 8.2 6.3 - 8.2 g/dL Final BILIRUBIN, TOTAL Date Value Ref Range Status 03/25/2024 0.9 0.2 - 1.3 mg/dL Final ALKALINE PHOSPHATASE Date Value Ref Range Status 03/25/2024 137 (H) 38 - 126 U/L Final No results found for: "CKTOTAL", "CKMB", "TROPONINI" No results found for: "PROCAL", "CHOL", "TRIG", "HDL", "TSH", "VITD25", "HGBA1C", "VANCOTROUGH" Assessment and Plan: NSTEMI - S/p [facility] (03/16/24) - KINGSLEY to ostial-mid Lcx (85% stenosis) and ostial RCA (80% stenosis), with medical mgmt of mild - moderate disease of LAD disease -LV function preserved post event with EF 65% Plan: - Continue ASA 81 mg daily - Continue Brilinta 90 mg BID - Continue Losartan 50 mg daily for afterload reduction - Continue Coreg 6.25 mg BID daily Agree VERONA-improving - FENa of 0.9% consistent with pre-renal injury -creatinine bump to 1.25 on 03/23/24, up from 0.91 on 03/21/24 consistent with KDIGO criteria -down to 1.11 today, encourage adequate PO fluid intake Agree Subacute embolic stroke of left posterior temporal and occipital lobe - Suspect embolic vs atheroembolic (03/19/24) 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 - Speech therapy following, appreciate their assistance, PT/OT - Ophthalmology consulted, recommended outpatient follow up in eye clinic for formal visual field testing - Fall precautions - Continue DAPT - Outpatient ANNY and event monitor recommended by neuro, neuro felt that even if patient had indication for anticoagulation that she would not be a great candidate due to concern for compliance Agree T2DM - Ha1c 13.3% (03/16/24) - Non-compliant with home regimen (Metformin 500 mg BID daily, Jardiance 10 mg daily, Trulicity 3 mg once weekly) Plan: - Endocrinology following - Continue Lantus 26 units nightly - Increase prandial insulin to units before meals - MDSSI with meals - 4 units with late night snack Agree Transaminitis -AST of 70, ALT of 87 today -initial bump in LFTs observed after cardiac event but normalized, has been up-trending over past 3 days, will monitor, if continues to uptrend, consider RUQ US Chronic Problems and Follow Up Items: HTN - Continue Losartan 50 mg daily - Continue Coreg 6.25 mg BID daily HLD - Continue Crestor 40 mg nighty HF recovered EF - TTE (03/17/24) - EF 65%, mildly increased wall thickness and moderate (2+) regurgitation Plan: - Continue Losartan 50 mg daily - Continue Coreg 6.25 mg BID daily - Consider starting Farxiga 10 mg daily in outpatient setting given history of T2DM Suspected COPD Tobacco Use - Consider obtaining PFTs outpatient - Encouraged smoking cessation; patient not ready to quit - Goals of Care: FULL CODE - DVT Prophylaxis: Lovenox 40 q24hr - CrCl >30 - GI Prophylaxis: Not Indicated - Diet: Carb-Control and Cardiac I have discussed the care of Neil Wellington with the medical student and/or resident. I have personally taken a history, examined the patient, and performed the associated medical decision making activities. I have reviewed & verified the attested documentation. Unless otherwise noted above, this documentation reflects the history, physical exam, and medical decision making that I performed myself. Please see green and bolded text for my personal highlights or additions to the note. Patient seen and examined by myself on 03/25/24 Department of Internal Medicine Division of Endocrinology, Diabetes, & Metabolism Endocrinology Note Patient Name: Neil Wellington : 1970 AGE: 53 y.o. Room/Bed: [facility] B Admission Date: 03/15/2024 Visit Date: 03/24/2024 Reason for Endocrine Consult: uncontrolled DM Provider/Team Requesting Consult: Cardiology PCP: Luz Mcdermott Outpt Peanut Cleaner: No ASSESSMENT: Uncontrolled DM2 Med noncompliance NSTEMI-stents placed 03/16/24 CKD 3 Depression Tobacco abuse HTN/HLP Poor vision Psoriatic arthritis PLAN: Continue lantus to 26 units HS Increase Humalog 20/20/20 units before meals Continue Humalog moderate dose SS Add humalog HS dose 4 units PRN if eats late snack Psych consult for depression- refusing psych meds Diabetic education completed last week ICU goal <180 GMF goal <150 POCT BG ACHS Hypoglycemia management per protocol Carb controlled diet ANTICIPATED ENDOCRINE HOME GOING RECOMMENDATIONS: Optimized for Discharge from Endocrine standpoint: yes Home Going Endocrine Rx Recommendations-- Please continue current insulins to [facility] Start noeity 0.75 weekly Jardiance 25 mg po daily Once out of rehab start metformin 500 mg po bid Meter + testing supplies Outpt Follow Up-- PCP SUBJECTIVE/HPI: CHIEF COMPLAINT: No chief complaint on file. Patient presented to [facility] ED with CP radiating down left arm and jaw pain started 03/13/24 Patient transferred from [facility] had there -for NSTEMI--for CABG vs stents--patient declines surgery Had heart cath and stents placed at [facility] 03/16/24 EF improved on ANNY after stents placed ( was 44% at [facility]) Today patient is resting in bed, barely opens eyes Endorses not taking any medications ordered for more than year Reviewed PCP not from care everywhere 07/2023 states depression reason for not taking medications--patient states ahe did npot follow up with PCP at that visit was advised ED for HTN and patient refused--states memory issues at that time--does not look like mediction for depression was discussed Today she says she does not care Reviewed A1c and need for insulin here but we need to discuss plan. Patient just states I don't care several times in trying determine what plan of treatment she is willing to do--discussed with Dr Caal will place psych consult Asked about appetite and what she ate--I don't remember Per nursing ate eggs and hungarian toast for BF Type of DM: DM2 Onset of DM: age 51 Home DM Medication Regimen: was ordered but not clear if she ever took regularly DM control (last A1c/glucose data): Lab Results Component Value Date HGBA1C 13.3 (H) 03/16/2024 TODAY- BGLs as below Glucose levels with continued fluctuation Denies nausea Denies pain Has been eating well, did not have an bedtime snack last night She is looking forward to going to rehab tomorrow if possible Glucose Date/Time Value Ref Range Status 03/24/2024 07:29 AM 192 (H) 70 - 100 mg/dL Final 03/23/2024 07:43 PM 262 (H) 70 - 100 mg/dL Final 03/23/2024 04:42 PM 163 (H) 70 - 100 mg/dL Final 03/23/2024 11:04 AM 322 (H) 70 - 100 mg/dL Final 03/23/2024 07:52 AM 182 (H) 70 - 100 mg/dL Final 03/22/2024 08:14 PM 199 (H) 70 - 100 mg/dL Final Review of Systems Respiratory: Negative for chest tightness and shortness of breath. Cardiovascular: Negative for chest pain. Skin: Negative for wound. Neurological: Negative for numbness. Psychiatric/Behavioral: Positive for behavioral problems. ROS negative except for those mentioned in HPI. OBJECTIVE: Vitals: 03/23/24 1944 03/23/24 2339 03/24/24 0427 03/24/24 0729 BP: 130/75 145/93 109/71 123/90 BP Location: Left arm Patient Position: Lying Pulse: 88 94 86 95 Resp: 16 16 16 16 Temp: 36.7 C (98.1 F) 36.6 C (97.8 F) 36.9 C (98.5 F) 36.3 C (97.3 F) TempSrc: Temporal Temporal Temporal Temporal SpO2: 94% 94% 97% 95% Weight: 199 lb (90.3 kg) Height: Physical Exam Vitals and nursing note reviewed. Constitutional: General: She is awake. She is not in acute distress. Appearance: She is obese. Eyes: Conjunctiva/sclera: Conjunctivae normal. Cardiovascular: Rate and Rhythm: Normal rate. Pulses: Normal pulses. Pulmonary: Breath sounds: Normal breath sounds. Abdominal: General: Bowel sounds are normal. Tenderness: There is no guarding. Musculoskeletal: General: No swelling. Normal range of motion. Skin: General: Skin is warm and dry. Neurological: Mental Status: She is alert and oriented to person, place, and time. Mental status is at baseline. Psychiatric: Attention and Perception: She is inattentive. Mood and Affect: Mood is depressed. Behavior: Behavior is slowed and withdrawn. Comments: 24 hour intake/output: Intake/Output Summary (Last 24 hours) at 03/24/2024 0972 Last data filed at 03/24/2024 0427 Gross per 24 hour Intake 476 ml Output 800 ml Net -324 ml Diet: Adult diet Regular; 4 carb choices (60 gm/meal); Low Fat/Low Chol/High Fiber/2 gm Na Medications (as per EMR): HomeMeds: No current outpatient medications Scheduled Meds:aspirin, 81 mg, Oral, Daily carvedilol, 6.25 mg, Oral, BID WC enoxaparin, 40 mg, SubCUTAneous, Daily insulin glargine, 26 Units, SubCUTAneous, Nightly insulin lispro, 0-12 Units, SubCUTAneous, TID WC insulin lispro, 18 Units, SubCUTAneous, TID WC losartan, 50 mg, Oral, Daily polyethylene glycol (PEG) 3350, 17 g, Oral, Daily rosuvastatin, 40 mg, Oral, Nightly senna-docusate sodium, 2 tablet, Oral, Daily ticagrelor, 90 mg, Oral, BID Continuous Infusions: PRN Meds:PRN medications: acetaminophen OR acetaminophen OR acetaminophen, dextrose, dextrose, glucagon (rDNA), glucose, insulin lispro, ipratropium-albuterol, naloxone, nitroglycerin, ondansetron ODT OR ondansetron, sodium chloride Diagnostic Workup: I reviewed pertinent Laboratory results, Radiographic results, and Other Clinical Notes at the time of today's encounter. Labs: No components found for: "LABA1C" No components found for: "EAG" Lab Results Component Value Date NA 134 (L) 03/23/2024 K 4.8 03/23/2024 CL 103 03/23/2024 CO2 21 (L) 03/23/2024 BUN 22 (H) 03/23/2024 CREATININE 1.25 (H) 03/23/2024 GLUCOSE 183 (H) 03/23/2024 CALCIUM 9.7 03/23/2024 Lab Results Component Value Date CHOL 173 03/16/2024 Lab Results Component Value Date TRIG 150 (H) 03/16/2024 Lab Results Component Value Date HDL 39 (L) 03/16/2024 Lab Results Component Value Date LDLCALC 104 (H) 03/16/2024 No results found for: "VLDL" Lab Results Component Value Date CHOLHDLRATIO 4 03/16/2024 No results found for: "[id number]" Lab Results Component Value Date TSH 1.923 03/16/2024 Radiology reportsas per the Radiologist Radiology: POCT glucose meter Result Date: 03/16/2024 Performed by: [facility], [address] [place], [place] [id number] CLIA ID: [id number] POCT glucose meter Result Date: 03/16/2024 Performed by: [facility], [address] [place] [id number] CLIA ID: [id number] POCT ACT Result Date: 03/16/2024 Performed by: [facility], [address] [place] [id number] CLIA ID: [id number] POCT ACT Result Date: 03/16/2024 Performed by: [facility], [address] [place] [id number] CLIA ID: [id number] POCT ACT Result Date: 03/16/2024 Performed by: [facility], [address] [place] [id number] CLIA ID: [id number] ECG 12 lead Sinus rhythm Right axis deviation Abnormal T, consider ischemia, lateral leads ST elevation, consider inferior injury Cardiac procedure Result Date: 03/16/2024 - Successful IVUS guided PCI of ostial to mid circumflex artery with deployment of 3.0 mm x 48 mm Synergy KINGSLEY - Successful IVUS guided PCI of ostial RCA with deployment of 4.0 mm x 12 mm Xience KINGSLEY - Medical therapy for mild to moderate disease of LAD and ramus POCT glucose meter Result Date: 03/16/2024 Performed by: [facility], [address] [place] [id number] CLIA ID: [id number] POCT glucose meter Result Date: 03/15/2024 Performed by: [facility], [address] [place] [id number] CLIA ID: [id number] XR chest 1 view Result Date: 03/15/2024 Patient Name: [place]IL WELL[place] : 1970 [place] [id number] Exam Date/Time: 03/15/2024 20:23 Procedure: XR CHEST 1 VIEW Ordering Provider: ORTIZ JOSEPH Reason For Exam: Shortness of breath PORTABLE CHEST: INDICATION: Shortness of breath COMPARISON: No previous studies are available for comparison. Obtained at 2020. A single portable AP radiograph of the chest was obtained. The heart is borderline in size. The mediastinal silhouette is normal. There is mild vascular congestion. No effusions or acute infiltrates. There is no pleural thickening. The osseous structures are unremarkable. Mild vascular congestion. Report Dictated on Electronically Signed By: Jordan Davies DO Electronically Signed Date/Time: 03/15/2024 10:47 PM EDT ECG 12 lead Sinus rhythm Probable left atrial enlargement Abnormal T, consider ischemia, lateral leads ST elevation, consider inferior injury History/Other: Past Medical History: History reviewed. No pertinent past medical history. Past Surgical History: Past Surgical History: Procedure Laterality Date CARDIAC CATHETERIZATION N/A 03/16/2024 Performed by Maximo Max MD at [facility] Cardiac Cath/EP Lab CARDIAC CATHETERIZATION N/A 03/16/2024 Performed by Maximo Max MD at [facility] Cardiac Cath/EP Lab CARDIAC CATHETERIZATION N/A 03/16/2024 Performed by Maximo Max MD at [facility] Cardiac Cath/EP Lab Allergy(ies): No Known Allergies Family History: No family history on file. Social History: Social History Tobacco Use Smoking status: Unknown Portions of the information within this encounter were entered using an electronic dictation system. Best attempts were made to edit/proofread the information prior to note completion. Despite the review of information, some errors may remain. If there are questions related to the information contained within the note please contact the signing physician directly. I spent 15 minutes with the pt which involved coordination of care, medical evaluation, review of records, and/or counseling of the pt regarding his/her condition/disease state/prognosis on the date of this note. Associated attestation - Jazmine Caal MD - 03/24/2024 2:32 PM EDT I performed a history and physical examination of the patient. I have reviewed the patient's chart including pertinent history, medications, labs, radiology, and other reports. I reviewed the resident/AMINTA's note, agree with the documented findings and plan of care (with modifications noted if any), and discussed the management plan. Pt was seen at bedside. She was laying in bed. She was hugging a stuffed animal. conversant. Still with poor vision. Eating well. No additional snacks today. BG improved today. States that she would like to be discharged to SNF/rehab closer to her family in [facility]. Adult diet Regular; 4 carb choices (60 gm/meal); Low Fat/Low Chol/High Fiber/2 gm Na Estimated Creatinine Clearance: 57.3 mL/min (A) (by C-G formula based on SCr of 1.2 mg/dL (H)). BP 103/72 (BP Location: Left arm, Patient Position: Sitting) Pulse 85 Temp 36.1 C (96.9 F) (Temporal) Resp 16 Ht 5' 2" (1.575 m) Wt 199 lb (90.3 kg) SpO2 95% BMI 36.40 kg/m Obese, sleepy, not in distress, RRR, abdomen soft, nontender, no edema, no focal deficits, poor vision, mild expressive aphasia, flat affect. Dx: Type 2 DM with complications, uncontrolled, on long-term insulin Type 2 DM with hyperglycemia CAD/NSTEMI s/p PCI Acute strokes Depression Poor compliance with therapy Tobacco abuse Vision impairment Plan: -pt with poorly controlled DM due to poor compliance -BG improved with basal bolus insulin regimen; occasional hyperglycemia due to related to dietary indiscretion -continue Lantus 26 at bedtime -continue Humalog 18 units TID + mod dose SS -closely monitor BG; adjust doses as necessary -management of hypoglycemia per protocol -counseled pt on DM management -carb controlled diet --discussed importance of compliance with diet -s/p DSME --limited participation due to poor vision; will need continued education -pt has declined tx for ongoing depression -tobacco cessation -FU with Ophthalmology -Noted plan for discharge to [facility] rehab hospital although patient prefers a facility closer to her family Anticipated homegoing regimen: Lantus/Humalog at [facility]; possibly switch to Trulicity, metformin, and Jardiance on DC to home; resume liset CGM FU with Endocrinology outpatient. Total time 20 minutes which include review of records, counseling, management, and coordination of care as documented in note. Med Team Progress Note Neil Wellington : 1970(53 y.o.) Date: March 24, 2024 Med Team: A Attending: Dr. Silverio Chief Complaint: NSTEMI Subjective: - No acute events overnight. - Patient seen and examined at bedside this AM. Patient reportedly refused labs this AM. Discussed this with patient and ultimately was agreeable to lab draw. Patient's auth was accepted for [facility] rehab, currently awaiting a bed becoming available and then will be able to be discharged at that time. Patient currently medically stable for discharge at this time. Patient with no other questions or concerns at this time. Review of Systems Constitutional: Negative for chills, diaphoresis and fever. Respiratory: Negative for cough, shortness of breath and wheezing. Cardiovascular: Negative for chest pain, palpitations and leg swelling. Gastrointestinal: Negative for abdominal pain, constipation, diarrhea, nausea and vomiting. Genitourinary: Negative for dysuria, frequency and urgency. Neurological: Negative for weakness, light-headedness and headaches. Scheduled Meds:aspirin, 81 mg, Oral, Daily carvedilol, 6.25 mg, Oral, BID WC enoxaparin, 40 mg, SubCUTAneous, Daily insulin glargine, 26 Units, SubCUTAneous, Nightly insulin lispro, 0-12 Units, SubCUTAneous, TID WC insulin lispro, 18 Units, SubCUTAneous, TID WC losartan, 50 mg, Oral, Daily polyethylene glycol (PEG) 3350, 17 g, Oral, Daily rosuvastatin, 40 mg, Oral, Nightly senna-docusate sodium, 2 tablet, Oral, Daily ticagrelor, 90 mg, Oral, BID Continuous Infusions: Objective: BP 109/71 Pulse 86 Temp 36.9 C (98.5 F) (Temporal) Resp 16 Ht 5' 2" (1.575 m) Wt 199 lb (90.3 kg) SpO2 97% BMI 36.40 kg/m Physical Exam Vitals reviewed. Constitutional: General: She is not in acute distress. Appearance: She is obese. She is not ill-appearing, toxic-appearing or diaphoretic. HENT: Head: Normocephalic and atraumatic. Mouth/Throat: Mouth: Mucous membranes are moist. Pharynx: Oropharynx is clear. Eyes: General: No scleral icterus. Conjunctiva/sclera: Conjunctivae normal. Cardiovascular: Rate and Rhythm: Normal rate and regular rhythm. Pulses: Normal pulses. Heart sounds: Normal heart sounds. No murmur heard. No friction rub. No gallop. Pulmonary: Effort: Pulmonary effort is normal. Breath sounds: Normal breath sounds. No wheezing, rhonchi or rales. Abdominal: General: Abdomen is flat. There is no distension. Palpations: Abdomen is soft. Tenderness: There is no abdominal tenderness. Musculoskeletal: General: Normal range of motion. Right lower leg: No edema. Left lower leg: No edema. Skin: General: Skin is warm and dry. Neurological: Mental Status: She is alert. [facility] within last 24 hours No results found for: "WBC", "HGB", "HCT", "PLT", "MCV" No results found for: "NA", "K", "CL", "CO2", "BUN", "CREATININE", "GLUCOSE", "CALCIUM", "MG", "PHOS" No results found for: "AST", "ALT", "PROT", "BILITOT", "ALKPHOS", "INR", "APTT", "LIPASE" No results found for: "CKTOTAL", "CKMB", "TROPONINI" No results found for: "PROCAL", "CHOL", "TRIG", "HDL", "TSH", "VITD25", "HGBA1C", "VANCOTROUGH" Assessment and Plan: NSTEMI - S/p [facility] (03/16/24) - KINGSLEY to ostial-mid Lcx (85% stenosis) and ostial RCA (80% stenosis), with medical mgmt of mild - moderate disease of LAD disease Plan: - Continue ASA 81 mg daily - Continue Brilinta 90 mg BID - Continue Losartan 50 mg daily - Continue Coreg 6.25 mg BID daily - PT/OT - PT recommending IP Rehab, auth accepted for [facility] rehab, currently awaiting bed - Continue to monitor daily labs VERONA - FeNa 0.9%, indicating pre-renal etiology - Discussed with patient and will obtain labs this afternoon, if Cr remains stable or improved then etiology of Cr bump likely 2/2 the initiation of ARB and will continue med. However, if markedly worse then will have to look at holding ARB HTN - Continue Losartan 50 mg daily - Continue Coreg 6.25 mg BID daily HLD - Continue Crestor 40 mg nighty Subacute embolic stroke of left posterior temporal and occipital lobe - Suspect embolic vs atheroembolic (03/19/24) Chronic right occipital infarct - Speech therapy following, appreciate their assistance - Ophthalmology consulted, recommended outpatient follow up in eye clinic for formal visual field testing - Fall precautions - Continue Tele - Continue DAPT - Outpatient ANNY and event monitor recommended by neuro, neuro felt that even if patient had indication for anticoagulation that she would not be a great candidate due to concern for compliance Suspected VALENTIN - Will need referral to Sleep Medicine outpatient for sleep study HF recovered EF - TTE (03/17/24) - EF 65%, mildly increased wall thickness and moderate (2+) regurgitation Plan: - Continue Losartan 50 mg daily - Continue Coreg 6.25 mg BID daily - Consider starting Farxiga 10 mg daily in outpatient setting given history of T2DM T2DM - Ha1c 13.3% (03/16/24) - Non-compliant with home regimen (Metformin 500 mg BID daily, Jardiance 10 mg daily, Trulicity 3 mg once weekly) Plan: - Endocrinology following - Continue Lantus 26 units nightly - Continue Humalog 18 units TID with meals - MDSSI with meals - 4 units lispro with late nigh snack prn Suspected COPD Tobacco Use - Consider obtaining PFTs outpatient - Encouraged smoking cessation; patient not ready to quit - Goals of Care: FULL CODE - DVT Prophylaxis: Lovenox 40 q24hr - CrCl >30 - GI Prophylaxis: Not Indicated - Diet: General Associated attestation - Marily Silverio DO - 03/24/2024 1:30 PM EDT I saw and evaluated the patient. I agree with the findings and plan of care as documented in the resident's note, except as noted in Green text. Patient seen and examined personally during bedside teaching rounds (Date of Service: 03/24/24) -pt refused am labs. On rounds discussed rationale and need for repeat to monitor kidney function. Agreeable for labs sometime today. 7AM-5PM: contact resident on "ACH Med A" (find by hovering over attending's name on left side of patient's chart) 5PM-7AM: contact AI2 res Department of Internal Medicine Division of Endocrinology, Diabetes, & Metabolism Endocrinology Note Patient Name: Neil Wellington : 1970 AGE: 53 y.o. Room/Bed: [facility]/[address] Admission Date: 03/15/2024 Visit Date: 03/23/2024 Reason for Endocrine Consult: uncontrolled DM Provider/Team Requesting Consult: Cardiology PCP: Luz Mcdermott Outpt Peanut Cleaner: No ASSESSMENT: Uncontrolled DM2 Med noncompliance NSTEMI-stents placed 03/16/24 CKD 3 Depression Tobacco abuse HTN/HLP Poor vision Psoriatic arthritis PLAN: Keep lantus to 26 units HS Humalog units before meals Continue Humalog low dose SS Add humalog HS scale dose 4 units PRN if eats late snack Psych consult for depression- refusing psych meds Refusing diabetes education ICU goal <180 GMF goal <150 POCT BG ACHS Hypoglycemia management per protocol Carb controlled diet ANTICIPATED ENDOCRINE HOME GOING RECOMMENDATIONS: Optimized for Discharge from Endocrine standpoint: yes Home Going Endocrine Rx Recommendations-- Please continue current insulins to [facility] Start trulicity 0.75 weekly Jardiance 25 mg po daily Once out of rehab start metformin 500 mg po bid Meter + testing supplies Outpt Follow Up-- PCP SUBJECTIVE/HPI: CHIEF COMPLAINT: No chief complaint on file. Patient presented to [facility] ED with CP radiating down left arm and jaw pain started 03/13/24 Patient transferred from [facility] had there -for NSTEMI--for CABG vs stents--patient declines surgery Had heart cath and stents placed at [facility] 03/16/24 EF improved on ANNY after stents placed ( was 44% at [facility]) Today patient is resting in bed, barely opens eyes Endorses not taking any medications ordered for more than year Reviewed PCP not from care everywhere 07/2023 states depression reason for not taking medications--patient states ahe did npot follow up with PCP at that visit was advised ED for HTN and patient refused--states memory issues at that time--does not look like mediction for depression was discussed Today she says she does not care Reviewed A1c and need for insulin here but we need to discuss plan. Patient just states I don't care several times in trying determine what plan of treatment she is willing to do--discussed with Dr Caal will place psych consult Asked about appetite and what she ate--I don't remember Per nursing ate eggs and hungarian toast for BF Interval events BGL below- elevated Resting in bed- tired today VSS RA Flat affect Had all of bfast- eggs and sides (cannot recall) Not sure if she had late snack "but maybe did" Did eat dinner last night She denies nv abd pain No family in room Denies snacking on M& Ms today Does not want to take home insulins Will plan for this on DC Will go to [facility] rehab Spoke with nursing Now on GMF- waiting for rehab bed Type of DM: DM2 Onset of DM: age 51 Home DM Medication Regimen: was ordered but not clear if she ever took regularly DM control (last A1c/glucose data): Lab Results Component Value Date HGBA1C 13.3 (H) 03/16/2024 Glucose Date/Time Value Ref Range Status 03/23/2024 07:52 AM 182 (H) 70 - 100 mg/dL Final 03/22/2024 08:14 PM 199 (H) 70 - 100 mg/dL Final 03/22/2024 06:45 PM 202 (H) 70 - 100 mg/dL Final 03/22/2024 11:32 AM 392 (H) 70 - 100 mg/dL Final 03/22/2024 08:58 AM 204 (H) 70 - 100 mg/dL Final 03/21/2024 07:46 PM 241 (H) 70 - 100 mg/dL Final Review of Systems Respiratory: Negative for chest tightness and shortness of breath. Cardiovascular: Negative for chest pain. Skin: Negative for wound. Neurological: Negative for numbness. Psychiatric/Behavioral: Positive for behavioral problems. ROS negative except for those mentioned in HPI. OBJECTIVE: Vitals: 03/22/24 2013 03/22/24 2332 03/23/24 0314 03/23/24 0750 BP: 114/83 128/85 135/93 129/83 BP Location: Left arm Left arm Left arm Left arm Patient Position: Sitting Lying Sitting Sitting Pulse: 91 94 108 99 Resp: 18 20 18 18 Temp: 36.8 C (98.3 F) 36.7 C (98 F) 37.4 C (99.4 F) 36.7 C (98 F) TempSrc: Temporal Temporal Temporal Temporal SpO2: 94% 97% 95% 96% Weight: 200 lb 1.6 oz (90.8 kg) Height: Physical Exam Vitals and nursing note reviewed. Constitutional: General: She is awake. She is not in acute distress. Appearance: She is obese. Eyes: Conjunctiva/sclera: Conjunctivae normal. Cardiovascular: Rate and Rhythm: Normal rate. Pulses: Normal pulses. Pulmonary: Breath sounds: Normal breath sounds. Abdominal: General: Bowel sounds are normal. Tenderness: There is no guarding. Musculoskeletal: General: No swelling. Normal range of motion. Skin: General: Skin is warm and dry. Neurological: Mental Status: She is alert and oriented to person, place, and time. Mental status is at baseline. Psychiatric: Attention and Perception: She is inattentive. Mood and Affect: Mood is depressed. Behavior: Behavior is slowed and withdrawn. Comments: 24 hour intake/output: Intake/Output Summary (Last 24 hours) at 03/23/2024 0838 Last data filed at 03/23/2024 0825 Gross per 24 hour Intake 596 ml Output 200 ml Net 396 ml Diet: Adult diet Regular; 4 carb choices (60 gm/meal); Low Fat/Low Chol/High Fiber/2 gm Na Medications (as per EMR): HomeMeds: No current outpatient medications Scheduled Meds:aspirin, 81 mg, Oral, Daily carvedilol, 6.25 mg, Oral, BID WC enoxaparin, 40 mg, SubCUTAneous, Daily insulin glargine, 30 Units, SubCUTAneous, Nightly insulin lispro, 0-12 Units, SubCUTAneous, TID WC insulin lispro, 18 Units, SubCUTAneous, TID WC [Held by provider] losartan, 50 mg, Oral, Daily rosuvastatin, 40 mg, Oral, Nightly ticagrelor, 90 mg, Oral, BID Continuous Infusions: PRN Meds:PRN medications: acetaminophen OR acetaminophen OR acetaminophen, dextrose, dextrose, glucagon (rDNA), glucose, ipratropium-albuterol, naloxone, nitroglycerin, ondansetron ODT OR ondansetron, sodium chloride Diagnostic Workup: I reviewed pertinent Laboratory results, Radiographic results, and Other Clinical Notes at the time of today's encounter. Labs: No components found for: "LABA1C" No components found for: "EAG" Lab Results Component Value Date NA 134 (L) 03/23/2024 K 4.8 03/23/2024 CL 103 03/23/2024 CO2 21 (L) 03/23/2024 BUN 22 (H) 03/23/2024 CREATININE 1.25 (H) 03/23/2024 GLUCOSE 183 (H) 03/23/2024 CALCIUM 9.7 03/23/2024 Lab Results Component Value Date CHOL 173 03/16/2024 Lab Results Component Value Date TRIG 150 (H) 03/16/2024 Lab Results Component Value Date HDL 39 (L) 03/16/2024 Lab Results Component Value Date LDLCALC 104 (H) 03/16/2024 No results found for: "VLDL" Lab Results Component Value Date CHOLHDLRATIO 4 03/16/2024 No results found for: "[id number]" Lab Results Component Value Date TSH 1.923 03/16/2024 Radiology reportsas per the Radiologist Radiology: POCT glucose meter Result Date: 03/16/2024 Performed by: [facility], [address] [place] [id number] CLIA ID: [id number] POCT glucose meter Result Date: 03/16/2024 Performed by: [facility], [address] [place] [id number] CLIA ID: [id number] POCT ACT Result Date: 03/16/2024 Performed by: [facility], [address] [place] [address] [id number] CLIA ID: [id number] POCT ACT Result Date: 03/16/2024 Performed by: [facility], [address] [place] [id number] CLIA ID: [id number] POCT ACT Result Date: 03/16/2024 Performed by: [facility], [address] [place] [id number] CLIA ID: [id number] ECG 12 lead Sinus rhythm Right axis deviation Abnormal T, consider ischemia, lateral leads ST elevation, consider inferior injury Cardiac procedure Result Date: 03/16/2024 - Successful IVUS guided PCI of ostial to mid circumflex artery with deployment of 3.0 mm x 48 mm Synergy KINGSLEY - Successful IVUS guided PCI of ostial RCA with deployment of 4.0 mm x 12 mm Xience KINGSLEY - Medical therapy for mild to moderate disease of LAD and ramus POCT glucose meter Result Date: 03/16/2024 Performed by: [facility], [address] [place] [id number] CLIA ID: [id number] POCT glucose meter Result Date: 03/15/2024 Performed by: [facility], [address] [place] [id number] CLIA ID: [id number] XR chest 1 view Result Date: 03/15/2024 Patient Name: NEIL WELLINGTON : 1970 Exam Date/Time: 03/15/2024 20:23 Procedure: XR CHEST 1 VIEW Ordering Provider: ORTIZ JOSEPH Reason For Exam: Shortness of breath PORTABLE CHEST: INDICATION: Shortness of breath COMPARISON: No previous studies are available for comparison. Obtained at 2020 hours. A single portable AP radiograph of the chest was obtained. The heart is borderline in size. The mediastinal silhouette is normal. There is mild vascular congestion. No effusions or acute infiltrates. There is no pleural thickening. The osseous structures are unremarkable. Mild vascular congestion. Report Dictated on Electronically Signed By: Jordan Davies DO Electronically Signed Date/Time: 03/15/2024 10:47 PM EDT ECG 12 lead Sinus rhythm Probable left atrial enlargement Abnormal T, consider ischemia, lateral leads ST elevation, consider inferior injury History/Other: Past Medical History: History reviewed. No pertinent past medical history. Past Surgical History: Past Surgical History: Procedure Laterality Date CARDIAC CATHETERIZATION N/A 03/16/2024 Performed by Maximo Max MD at [facility] Cardiac Cath/EP Lab CARDIAC CATHETERIZATION N/A 03/16/2024 Performed by Maximo Max MD at [facility] Cardiac Cath/EP Lab CARDIAC CATHETERIZATION N/A 03/16/2024 Performed by Maximo Max MD at [facility] Cardiac Cath/EP Lab Allergy(ies): No Known Allergies Family History: No family history on file. Social History: Social History Tobacco Use Smoking status: Unknown Portions of the information within this encounter were entered using an electronic dictation system. Best attempts were made to edit/proofread the information prior to note completion. Despite the review of information, some errors may remain. If there are questions related to the information contained within the note please contact the signing physician directly. I spent 15 minutes with the pt which involved coordination of care, medical evaluation, review of records, and/or counseling of the pt regarding his/her condition/disease state/prognosis on the date of this note. Associated attestation - Jazmine Caal MD - 03/23/2024 2:25 PM EDT I performed a history and physical examination of the patient. I have reviewed the patient's chart including pertinent history, medications, labs, radiology, and other reports. I reviewed the resident/AMINTA's note, agree with the documented findings and plan of care (with modifications noted if any), and discussed the management plan. Pt was seen in bed. Fairly sleepy but arousable. Still with poor vision. Eating well. She denies eating any additional snacks today. BG improved this morning to 182 but before lunch was 322. Adult diet Regular; 4 carb choices (60 gm/meal); Low Fat/Low Chol/High Fiber/2 gm Na Estimated Creatinine Clearance: 55.2 mL/min (A) (by C-G formula based on SCr of 1.25 mg/dL (H)). BP 117/80 (BP Location: Right arm, Patient Position: Sitting) Pulse 85 Temp (!) 35.7 C (96.2 F) (Temporal) Resp 17 Ht 5' 2" (1.575 m) Wt 200 lb 1.6 oz (90.8 kg) SpO2 95% BMI 36.60 kg/m Obese, sleepy, not in distress, RRR, abdomen soft, nontender, no edema, no focal deficits, poor vision, flat affect. Dx: Type 2 DM with complications, uncontrolled, on long-term insulin Type 2 DM with hyperglycemia CAD/NSTEMI s/p PCI Acute strokes Depression Poor compliance with therapy Tobacco abuse Vision impairment Plan: -pt with poorly controlled DM due to poor compliance -BG improved with basal bolus insulin regimen; hyperglycemia likely related to dietary indiscretion -continue Lantus 26 at bedtime -okay to continue Humalog 18 units TID + mod dose SS -continue Humalog 4 units if eating bedtime snack -closely monitor BG; adjust doses as necessary -management of hypoglycemia per protocol -counseled pt on DM management -carb controlled diet --discussed importance of compliance with diet -s/p DSME --limited participation due to poor vision; will need continued education -pt has declined tx for ongoing depression -tobacco cessation -FU with Ophthalmology -Noted plan for discharge to [facility] Anticipated homegoing regimen: Lantus/Humalog at [facility]; possibly switch to Trulicity, metformin, and Jardiance on DC to home; resume liset CGM FU with Endocrinology outpatient. Total time 20 minutes which include review of records, counseling, management, and coordination of care as documented in note. Med Team Progress Note Neil Wellington : 1970(53 y.o.) Date: March 23, 2024 Med Team: Viji Attending: Dr. Silverio Chief Complaint: NSTEMI Subjective: - No acute events overnight. - Patient seen and examined at bedside this AM. No new complaints at this time. Vitals stable. Patient sweaty on exam, however denying any symptoms of chest pain, shortness of breath, N/V, jaw pain, pain radiating into the extremities. 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 Patient updated on the plan of care and was in agreement, had no other questions at this time. Review of Systems Constitutional: Positive for diaphoresis. Negative for chills and fever. Respiratory: Negative for cough, shortness of breath and wheezing. Cardiovascular: Negative for chest pain, palpitations and leg swelling. Gastrointestinal: Negative for abdominal pain, constipation, diarrhea, nausea and vomiting. Genitourinary: Negative for dysuria, frequency and urgency. Neurological: Negative for weakness, light-headedness and headaches. Scheduled Meds:aspirin, 81 mg, Oral, Daily carvedilol, 6.25 mg, Oral, BID WC enoxaparin, 40 mg, SubCUTAneous, Daily insulin glargine, 26 Units, SubCUTAneous, Nightly insulin lispro, 0-12 Units, SubCUTAneous, TID WC insulin lispro, 14 Units, SubCUTAneous, TID WC insulin lispro, 4 Units, SubCUTAneous, Nightly losartan, 50 mg, Oral, Daily rosuvastatin, 40 mg, Oral, Nightly ticagrelor, 90 mg, Oral, BID Continuous Infusions: Objective: BP 135/93 (BP Location: Left arm, Patient Position: Sitting) Pulse 108 Temp 37.4 C (99.4 F) (Temporal) Resp 18 Ht 5' 2" (1.575 m) Wt 200 lb 1.6 oz (90.8 kg) SpO2 95% BMI 36.60 kg/m Physical Exam Vitals reviewed. Constitutional: General: She is not in acute distress. Appearance: She is obese. She is diaphoretic. She is not ill-appearing or toxic-appearing. HENT: Head: Normocephalic and atraumatic. Mouth/Throat: Mouth: Mucous membranes are moist. Pharynx: Oropharynx is clear. Eyes: General: No scleral icterus. Conjunctiva/sclera: Conjunctivae normal. Cardiovascular: Rate and Rhythm: Normal rate and regular rhythm. Pulses: Normal pulses. Heart sounds: Normal heart sounds. No murmur heard. No friction rub. No gallop. Pulmonary: Effort: Pulmonary effort is normal. Breath sounds: Normal breath sounds. No wheezing, rhonchi or rales. Abdominal: General: Abdomen is flat. There is no distension. Palpations: Abdomen is soft. Tenderness: There is no abdominal tenderness. Musculoskeletal: General: Normal range of motion. Right lower leg: No edema. Left lower leg: No edema. Skin: General: Skin is warm. Neurological: Mental Status: She is alert. [facility] within last 24 hours Auto WBC Date Value Ref Range Status 03/23/2024 16.4 (H) 3.6 - 10.7 10*3/uL Final Hemoglobin Date Value Ref Range Status 03/23/2024 14.3 11.7 - 16.0 g/dL Final Hematocrit Date Value Ref Range Status 03/23/2024 43.8 35.0 - 47.0 % Final Platelets Date Value Ref Range Status 03/23/2024 324 140 - 440 10*3/uL Final MCV Date Value Ref Range Status 03/23/2024 85.9 77.0 - 99.0 fL Final SODIUM Date Value Ref Range Status 03/23/2024 134 (L) 135 - 145 mmol/L Final POTASSIUM Date Value Ref Range Status 03/23/2024 4.8 3.5 - 5.1 mmol/L Final CHLORIDE Date Value Ref Range Status 03/23/2024 103 98 - 107 mmol/L Final CARBON DIOXIDE Date Value Ref Range Status 03/23/2024 21 (L) 22 - 30 mmol/L Final UREA NITROGEN Date Value Ref Range Status 03/23/2024 22 (H) 7 - 17 mg/dL Final CREATININE Date Value Ref Range Status 03/23/2024 1.25 (H) 0.52 - 1.04 mg/dL Final GLUCOSE Date Value Ref Range Status 03/23/2024 183 (H) 70 - 100 mg/dL Final CALCIUM Date Value Ref Range Status 03/23/2024 9.7 8.4 - 10.4 mg/dL Final MAGNESIUM Date Value Ref Range Status 03/23/2024 2.1 1.6 - 2.3 mg/dL Final PHOSPHORUS Date Value Ref Range Status 03/23/2024 4.5 2.5 - 4.5 mg/dL Final AST (SGOT) Date Value Ref Range Status 03/23/2024 47 (H) 15 - 46 U/L Final ALT Date Value Ref Range Status 03/23/2024 52 (H) 0 - 34 U/L Final TOTAL PROTEIN Date Value Ref Range Status 03/23/2024 8.2 6.3 - 8.2 g/dL Final BILIRUBIN, TOTAL Date Value Ref Range Status 03/23/2024 0.8 0.2 - 1.3 mg/dL Final ALKALINE PHOSPHATASE Date Value Ref Range Status 03/23/2024 136 (H) 38 - 126 U/L Final No results found for: "CKTOTAL", "CKMB", "TROPONINI" No results found for: "PROCAL", "CHOL", "TRIG", "HDL", "TSH", "VITD25", "HGBA1C", "VANCOTROUGH" Assessment and Plan: NSTEMI - S/p [facility] (03/16/24) - KINGSLEY to ostial-mid Lcx (85% stenosis) and ostial RCA (80% stenosis), with medical mgmt of mild - moderate disease of LAD disease Plan: - Continue ASA 81 mg daily - Continue Brilinta 90 mg BID - Continue Losartan 50 mg daily - Continue Coreg 6.25 mg BID daily - PT/OT - PT recommending IP Rehab, referral sent to [facility] rehab - Continue to monitor daily labs VERONA - Obtain urine studies HTN - Continue Losartan 50 mg daily - Continue Coreg 6.25 mg BID daily HLD - Continue Crestor 40 mg nighty Subacute embolic stroke of left posterior temporal and occipital lobe - Suspect embolic vs atheroembolic (03/19/24) Chronic right occipital infarct - Speech therapy following, appreciate their assistance - Ophthalmology consulted, recommended outpatient follow up in eye clinic for formal visual field testing - Fall precautions - Continue Tele - Continue DAPT - Outpatient ANNY and event monitor recommended by neuro, neuro felt that even if patient had indication for anticoagulation that she would not be a great candidate due to concern for compliance Suspected VALENTIN - Will need referral to Sleep Medicine outpatient for sleep study HF recovered EF - TTE (03/17/24) - EF 65%, mildly increased wall thickness and moderate (2+) regurgitation Plan: - Continue Losartan 50 mg daily - Continue Coreg 6.25 mg BID daily - Consider starting Farxiga 10 mg daily in outpatient setting given history of T2DM T2DM - Ha1c 13.3% (03/16/24) - Non-compliant with home regimen (Metformin 500 mg BID daily, Jardiance 10 mg daily, Trulicity 3 mg once weekly) Plan: - Endocrinology following - Continue Lantus 26 units nightly - Continue Humalog 18 units TID with meals - MDSSI with meals - 4 units with late nigh snack Suspected COPD Tobacco Use - Consider obtaining PFTs outpatient - Encouraged smoking cessation; patient not ready to quit - Goals of Care: FULL CODE - DVT Prophylaxis: Lovenox 40 q24hr - CrCl >30 - GI Prophylaxis: Not Indicated - Diet: General Associated attestation - Marily Silverio DO - 03/23/2024 4:03 PM EDT I saw and evaluated the patient. I agree with the findings and plan of care as documented in the resident's note, except as noted in Green text. Patient seen and examined personally during bedside teaching rounds (Date of Service: 03/23/24) -pt not taking any medication prior to hospital stay, reports knows she should. Endo following 7AM-5PM: contact resident on "[facility] Med A" (find by hovering over attending's name on left side of patient's chart) 5PM-7AM: contact AI2 res Nutrition Assessment Type and Reason for Visit: Reassess Nutrition Recommendations/Plan: Continue 4 carb choices, cardiac diet as ordered. Pt is eating well on current diet Pt remains inappropriate for diet education; will continue to monitor Suggest continued documentation of pt's % PO intake at meals in I/O flowsheet RD will monitor overall nutrition status and will follow weekly Malnutrition Assessment: Malnutrition Status: At risk for malnutrition (Comment) Context: Acute Illness Findings of the 6 clinical characteristics of malnutrition: Energy Intake: (eating well at all meals) Weight Loss: Greater than 2% over 1 week (-3.3% BW since 02/23; will monitor) Body Fat Loss: Muscle Mass Loss: Fluid Accumulation: Pool Coordinator Strength: Nutrition Assessment: Pt with PMH including uncontrolled T2DM, HTN, HLD, CKD stage III, suspected COPD, chronic tobacco abuse with reported 2PPD x40+ years, and obesity presented to [facility] 03/15/[address] [facility] for CABG evaluation after she initially presented with chest pain and underwent LHC which demonstrated MV CAD. She refused CABG and underwent PCI with KINGSLEY 03/16. Pt is noted to be a poor historian, oriented x2 per documentation. Pt is noted to be non compliant with medications, disinterested and disengaged with medical treatment, concern for depression. Psych saw for concern of apathy. Continued AMS with CT head 03/18 showing concern for strokes. Stroke service consulted. Suspected embolic stroke. Pt is A&Ox2 this a.m. Noted to be consistently apathetic about treatments. Remains inappropriate for diet educaiton. Eating well at all meals. Estimated Daily Nutrient Needs: Energy Requirements Based On: Kcal/kg Weight Used for Energy Requirements: [place] (25-30 kcal/kg) Weight for Energy Calculation (kg): 50 kg Total Energy Requirements (kcals/day): 1401-7336 Weight Used for Protein Requirements: [place] (1.2-1.3 g/kg) Weight in Kg Used for Protein Requirements: 50 kg Estimated Total Protein (g/day): 60-65 Estimated Daily Total Fluid (ml/day): per MD Nutrition Related Findings: Lives with: Alone Teeth: Missing teeth Room Service Room Service: Assist Lemuel Scale Score: 19 .Wound Type: None Net IO Since Admission: 1,210 mL [03/22/24 1639] Edema: RUE Edema: Trace, LUE Edema: Trace, RLE Edema: Non-pitting, LLE Edema: Non-pitting Bowel Sounds (All Quadrants): Active Last BM Date: 03/21/24 Labs and meds reviewed: aspirin, 81 mg, Oral, Daily carvedilol, 6.25 mg, Oral, BID WC enoxaparin, 40 mg, SubCUTAneous, Daily insulin glargine, 26 Units, SubCUTAneous, Nightly insulin lispro, 0-12 Units, SubCUTAneous, TID WC insulin lispro, 14 Units, SubCUTAneous, TID WC insulin lispro, 4 Units, SubCUTAneous, Nightly losartan, 50 mg, Oral, Daily rosuvastatin, 40 mg, Oral, Nightly ticagrelor, 90 mg, Oral, BID BMP: Recent Labs 03/20/24 0113 03/21/24 0537 03/22/24 0057 NA 134* 135 135 K 4.1 4.7 4.6 CL 103 104 105 CO2 22 20* 21* BUN 17 15 24* CREATININE 0.90 0.91 1.11* GLUCOSE 312* 189* 187* CALCIUM 9.2 9.6 9.4 MG 1.8 2.0 2.0 PHOS 4.1 5.0* 5.1* Recent Labs 03/21/24 0748 03/21/24 1207 03/21/24 1659 03/21/24 1946 03/22/24 0858 03/22/24 1132 POCGLU 183* 177* 262* 241* 204* 392* Lab Results Component Value Date HGBA1C 13.3 (H) 03/16/2024 Lab Results Component Value Date EFBP 65 03/17/2024 Lab Results Component Value Date CHOL 173 03/16/2024 HDL 39 (L) 03/16/2024 TRIG 150 (H) 03/16/2024 Current Nutrition Therapies: Adult diet Regular; 4 carb choices (60 gm/meal); Low Fat/Low Chol/High Fiber/2 gm Na Current Oral Intake Average Meal Intake: 76-100% (documented at 7 meals in 3 days) Average Supplements Intake: None Ordered Anthropometric Measures: Height: 157.5 cm (5' 2") Current Body Weight: 90.3 kg (199 lb) (03/22) Admission Body Weight: 93.5 kg (206 lb 2.1 oz[facility] Usual Body Weight: (229# on 04/27/23, 221# on 07/31/23) [place] Body Weight (lbs) (Calculated): 110 lbs [place] Body Weight (Kg) (Calculated): 50 kg % [place] Body Weight (Calculated): 184.6 % BMI (kg/m2) (Calculated): 36.4 BMI Categories: Obese Class 2 (BMI 35.0 -39.9) Wt Readings from Last 10 Encounters: 03/22/24 90.3 kg (199 lb) Nutrition Diagnosis: Altered nutrition-related lab values related to endocrine dysfuntion as evidenced by (elevated A1C) Nutrition Interventions: Food and/or Nutrient Delivery: Continue Current Diet Nutrition Education/Counseling: Education not appropriate Coordination of Nutrition Care: Continue to monitor while inpatient Goals: Goals: PO intake 75% or greater, by next RD assessment (Glucose will be well-controlled during admission) Nutrition Monitoring and Evaluation: Behavioral-Environmental Outcomes: Knowledge or Skill, Beliefs and Attitutes Food/Nutrient Intake Outcomes: Food and Nutrient Intake, Supplement Intake Physical Signs/Symptoms Outcomes: Biochemical Data, GI Status, Fluid Status or Edema, Weight, Nutrition Focused Physical Findings Discharge Planning: Too soon to determine Marily Watkins RD, LD Contact: *[phone] or via [employer] chat Images from the original note were not included. PHYSICAL THERAPY [facility] Treatment Note Name/MRN: Neil Wellington ([id number]) Date of : 1970 Age: 53 y.o. Room/Bed: T1-111/T1-111 A Discharge Recommendation: IP Rehab Equipment Needed: (TBD at next level of care) Prior Level of Function ADL Assistance: Independent Ambulation Assistance: Independent Transfer Assistance: Independent Assessment Pt requires min to mod assist for transfers and ambulation with FWW, SBA for bed mobility. She is unsteady, impulsive and is at high risk for falls. No PT goals met this session. Recommend IP Rehab at discharge. Subjective Pt is supine in the bed, agrees to PT. Pt reports decreased vision from stroke Pain: Pt denies any current pain. Medical Precautions: No active isolations Proper PPE donned/doffed in accordance with facility standards. Fall Risk: Llamas Fall Risk Score: 60 (High Risk) Precautions/Restrictions: Lines/Drains/Airways: IV, tele Overall Cognitive Status: Exceptions - Safety judgement: decreased awareness of need for assistance and decreased awareness of need for safety - Problem solving: assistance required to identify errors made, assistance required to correct errors made, and decreased awareness of errors Family/Caregiver Present: none Objective Bed Mobility Supine to sit: SBA Sit to supine: SBA Transfers/Mobility Sit to stand: Min Assist Stand to sit: Min Assist Toilet: Min Assist Verbal cues for hand placement Ambulation Ambulation 1 Assistive device(s) used: front wheeled walker Assist level: Min Assist, Mod Assist Distance (ft): 15 ft, 20 ft x 2 Pt's right knee buckled during ambulation, requiring mod assist to correct Balance: static stand at FWW with min assist x 1 Exercises Exercises Hip Flexion: x10 seated Hip Abduction: x10 Knee Long Arc Quad: x10 seated Ankle Pumps: x10 Plan Continue acute PT per plan of care. Safety/Education Safety Safety Devices in place: All fall risk precautions in place, call light within reach, left in bed, bed alarm in place, patient at risk for falls, and nurse notified Restraints: No Education Education Given To: patient Education Provided: PT Role, PT Goals, Gait Training, Transfer Training, and Discharge Recommendations Education Method: Verbal Barriers to Learning: Cognition Education Outcome: Continued Education Needed Outcome Measures AM-PAC AM-PAC Inpatient Mobility Raw Score (No Stairs) : 16 JH-HLM JH-HLM Score: Walked 25 ft or more (i.e. walked outside of room) Goals Patient Stated Goal: to go home Encounter Problems Encounter Problems (Active) Mobility Patient will ambulate 150 feet with min assist and least restrictive device in order to improve safety and independence with mobility. (Progressing) Start: 03/19/24 Patient will ascend and descend 5 stairs with no assistive device and min assist in order to safely negotiate home. (Not Addressed) Start: 03/19/24 Pain - Adult Transfers Patient will perform bed mobility with modified independence in order to improve independence and prepare for out of bed mobility. (Progressing) Start: 03/19/24 Patient will complete functional transfer with one hand hold with modified independence in order to prepare for ambulation. (Progressing) Start: 03/19/24 Therapy Time Individual Co-treatment Time In 1320 Time Out 1345 Minutes 25 Timed Code Treatment Minutes: (GT, FA) Claribel Castaneda PTA Images from the original note were not included. Speech-Language Pathology SPEECH LANGUAGE PATHOLOGY [facility] Language Treatment Note Patient Name: Neil Wellington Evaluation Date: 03/22/2024 Date of : 1970 Admission Date: 03/15/2024 7:36 PM Age: 53 y.o. Room/Bed: T1-111/T1-111 A Subjective Patient alert and agitated. Seen upright in bedside chair. No visitors at bedside. Spoke with RNJelani, who cleared pt for treatment. Pain: RN managing pain. PPE Worn: not applicable Objective & Assessment Activity 1: Naming + semantic features Pt somewhat agitated in today's therapy session. Lunch tray brought in and pt agreeable to work with H[employer] AND DECK REMOVER while eating. Pt prompted to name the objects on her tray, but noted difficulty with visual deficits. H[employer] DECK REMOVER provided the name, pt prompted to provide 1-3 semantic attributes per item - 60% Activity 2: Reading/writing Attempted activity, but pt declined and due to agitation, did not push pt to further participate. Will re-attempt this goal next session. Plan & Recommendations Plan: Continue acute H[employer] AND DECK REMOVER therapy per initial plan of care and established goals. D/C Recommendations: to be determined Education Education Given: communication, cognition Given To: patient and RN Response: verbalizes understanding Goals Patient Stated Goal: None stated. Encounter Problems Encounter Problems (Active) Speech/Language/Cognition Patient will name objects/items in environment or functional pictures with 75% accuracy (Progressing) Start: 03/19/24 Expected End: 04/02/24 Patient will participate with evaluation of reading comprehension and graphic expression. (Progressing) Start: 03/19/24 Expected End: 04/02/24 Encounter Problems (Resolved) HULL AND DECK REMOVER Misc Misc 1 (Completed) Start: 03/19/24 Expected End: 04/02/24 Resolved: 03/20/24 Goal Note Patient will follow 3 step commands x 80% Therapy Time HULL AND DECK REMOVER Individual Minutes Time In: 1237 Time Out: 1250 Minutes: 13 DAVON Mayer Images from the original note were not included. [facility] [place] [facility] CCU PROGRESS NOTE Patient Name: Neil Wellington : 1970 Subjective: Interval History: no events overnight. No active concerns today. A&Ox1 today to person. Review of Systems: Review of Systems Constitutional: Negative for chills, fatigue and fever. Respiratory: Negative for cough and shortness of breath. Cardiovascular: Negative for chest pain and palpitations. Gastrointestinal: Negative for abdominal distention, abdominal pain, diarrhea, nausea and vomiting. Genitourinary: Negative for difficulty urinating. Psychiatric/Behavioral: Positive for confusion. Inpatient Medications: Scheduled Meds:aspirin, 81 mg, Oral, Daily carvedilol, 6.25 mg, Oral, BID WC enoxaparin, 40 mg, SubCUTAneous, Daily insulin glargine, 26 Units, SubCUTAneous, Nightly insulin lispro, 0-12 Units, SubCUTAneous, TID WC insulin lispro, 14 Units, SubCUTAneous, TID WC insulin lispro, 4 Units, SubCUTAneous, Nightly losartan, 50 mg, Oral, Daily rosuvastatin, 40 mg, Oral, Nightly ticagrelor, 90 mg, Oral, BID Continuous Infusions: PRN Meds used in the last 24hr: acetaminophen x1 Objective: Physical Examination: BP 124/76 Pulse 95 Temp 36.3 C (97.3 F) (Oral) Resp 18 Ht 5' 2" (1.575 m) Wt 199 lb (90.3 kg) SpO2 95% BMI 36.40 kg/m No intake or output data in the 24 hours ending 03/22/24 1235 Physical Exam Vitals reviewed. Constitutional: General: She is not in acute distress. Cardiovascular: Rate and Rhythm: Normal rate and regular rhythm. Pulses: Normal pulses. Heart sounds: Normal heart sounds. No murmur heard. Pulmonary: Effort: Pulmonary effort is normal. No respiratory distress. Breath sounds: Normal breath sounds. No wheezing. Abdominal: General: Abdomen is flat. Bowel sounds are normal. There is no distension. Tenderness: There is no abdominal tenderness. Musculoskeletal: Right lower leg: No edema. Left lower leg: No edema. Skin: General: Skin is warm and dry. Neurological: Mental Status: She is alert. Psychiatric: Comments: A&Ox2 Pertinent Labs: BMP: Lab Results Component Value Date NA 135 03/22/2024 K 4.6 03/22/2024 CL 105 03/22/2024 CO2 21 (L) 03/22/2024 BUN 24 (H) 03/22/2024 CREATININE 1.11 (H) 03/22/2024 GLUCOSE 187 (H) 03/22/2024 CALCIUM 9.4 03/22/2024 MG 2.0 03/22/2024 PHOS 5.1 (H) 03/22/2024 CBC: Lab Results Component Value Date WBC 14.3 (H) 03/22/2024 HGB 14.3 03/22/2024 HCT 43.8 03/22/2024 MCV 85.7 03/22/2024 PLT 286 03/22/2024 Cardiac profile: TROPONIN I Date Value Ref Range Status 03/16/2024 37.400 (HH) <0.034 ng/mL Final 03/16/2024 41.600 (HH) <0.034 ng/mL Final 03/15/2024 32.700 (HH) <0.034 ng/mL Final Coagulation: No results found for: "INR", "PTT" Lipid panel: Lab Results Component Value Date CHOL 173 03/16/2024 HDL 39 (L) 03/16/2024 TRIG 150 (H) 03/16/2024 Other: Lab Results Component Value Date HGBA1C 13.3 (H) 03/16/2024 TSH 1.923 03/16/2024 Chest Imaging: CXR: === 03/15/24 === XR ABDOMEN 1 VIEW - Impression - No findings that preclude MR imaging. Report Dictated on Electronically Signed By: Emelia Galeana MD Electronically Signed Date/Time: 03/19/2024 11:52 AM EDT Cardiac Studies: Telemetry findings reviewed: yes ECG: Encounter Date: 03/15/24 ECG 12 lead Result Value Heart Rate 85 QRSD Interval 90 QT Interval 410 QTC Interval 487 P [place] -44 QRS [place] 154 T Wave [place] 96 [place] Interval 150 Impression Sinus rhythm Right axis deviation Abnormal T, consider ischemia, lateral leads Electronically Signed On 03-18-2024 17:22:31 EDT by Justine Connolly Echo: 03/15/24 TRANSTHORACIC ECHOCARDIOGRAM (TTE) COMPLETE (CONTRAST/BUBBLE/3D PRN) 03/17/2024 12:46 PM (Final) Interpretation Summary Left Ventricle: Left ventricle size is normal. Mildly increased wall thickness. Normal left ventricular systolic function. EF by 2D Simpsons Biplane is 65%. See diagram for wall motion findings. Right Ventricle: Right ventricle size is normal. Normal systolic function. Mitral Valve: Not well visualized. Valve structure is normal. Moderate (2+) regurgitation. Left Atrium: Left atrium is mildly dilated. Left atrium size is mildly increased (LA volume index 35-41 mL/m2).LA Vol Index is 39 ml/m2. Signed by: Shine Almendarez MD on 03/17/2024 12:46 PM Cath Report: 03/15/24 CARDIAC PROCEDURE 03/17/2024 3:19 PM (Final) Conclusion - Successful IVUS guided PCI of ostial to mid circumflex artery with deployment of 3.0 mm x 48 mm Synergy KINGSLEY (culprit lesion) - Successful IVUS guided PCI of ostial RCA with deployment of 4.0 mm x 12 mm Xience KINGSLEY - Medical therapy for mild to moderate disease of LAD and ramus as well as ostial LMT disease Signed by: Maximo Max MD on 03/17/2024 3:19 PM Assessment/Plan NSTEMI - Presented to [facility] ED with substernal chest pain that started on 03/13/24 - Initially placed on nitroglycerin gtt which resolved - Transferred from [facility] on 03/15/24 for concern of high-risk PCI and CABG evaluation - EKG NSR with high lateral T wave inversions and no ST depression - Troponin 32.7 ==> 41.6 ==> 37.4 - proBNP elevated to 3,160 [facility] (03/16/24) - KINGSLEY to ostial-mid Lcx (85% stenosis) and ostial RCA (80% stenosis), and mild - moderate disease of LAD and ramus - Continue ASA 81 mg daily - Continue Brilinta 90 mg BID daily - Continue Losartan 50 mg daily - Continue Coreg 6.25 mg BID daily - PT/OT - PT recommending IP Rehab - Encourage ambulation HTN BP normotensive to mildly hypertensive this morning - Continue Losartan 50 mg daily - Continue Coreg 6.25 mg BID daily HLD - Continue Crestor 40 mg nighty Vasogenic Edema Suspected embolic stroke A&O x 2; rest of Neuro exam unremarkable NIH score of 1 - Neurology consulted; appreciate recs - MRA imaging ordered; FINDINGS: Diffusion-weighted imaging shows an acute infarct in the posterior temporal and occipital lobes on the left measuring 2.6 x 6.2 cm. In addition, there are several tiny posterior fossa acute infarcts involving bilateral cerebellar hemispheres and right side of bhavani. Chronic right occipital infarct. There are patchy and confluent areas of T2 bright signal in the periventricular and subcortical white matter, which are nonspecific, but may relate to chronic small vessel ischemic changes. Major intracranial flow voids are visualized. Ventricular system is normal for age. On gradient echo T2-weighted imaging, there are multiple foci of very low signal which may represent remote areas of remote hemorrhage. - Consult Speech therapy - Consult OT for visual rehab > ophthalmology consult which recommended outpatient follow up - Fall precautions - Continue Tele - continue DAPT - Outpatient ANNY and event monitor recommended by neuro crit-care Suspected VALENTIN - Will need referral to Sleep Medicine outpatient for sleep study Delirium Likely in setting of current hospitalization but unaware of baseline - Psychiatry consulted; appreciate recs HFrEF (EF on 03/15/24) Euvolemic on exam TTE (03/17/24) - EF 65%, mildly increased wall thickness and moderate (2+) regurgitation - Continue Losartan 50 mg daily - Continue Coreg 6.25 mg BID daily - Consider starting Farxiga 10 mg daily in outpatient setting given history of T2DM T2DM Ha1c 13.3% (03/16/24) Non-compliant with home regimen (Metformin 500 mg BID daily, Jardiance 10 mg daily, Trulicity 3 mg once weekly) - Endocrinology following - Continue Lantus 24 units nightly - Continue Humalog 10 units TID with meals - MDSSI with meals Suspected COPD Tobacco Use - Consider obtaining PFTs outpatient - Encouraged smoking cessation; patient not ready to quit - Goals of Care: Full Code - DVT Prophylaxis: lovenox daily - GI Prophylaxis: Protonix daily - Diet: Cardiac and carb control - BMI Classification: Body mass index is 36.9 kg/m . - Disposition: Transfer to [facility] / Telemetry. > will be ready for [facility] if accepted from medical perspective Associated attestation - Justine Godwin MD - 03/22/2024 10:56 PM EDT I, Dr. Justine Godwin, saw and evaluated the patient on 03/22/2024. I personally obtained the nino and critical portions of the history and physical exam. I reviewed the medical record including labs, imaging studies, and notes. I discussed the patient with the medical advisor, and I agree with the resident's medical decision making. 53 y.o. female with uncontrolled diabetes mellitus type 2 (A1c 13.3%), hyperlipidemia, hypertension transferred from [facility] for non-STEMI and multivessel coronary disease. Successful staged PCI of ostial RCA and ostial/proximal circumflex with 2 separate KINGSLEY, with medical management of LAD disease. EF preserved. Postprocedural course complicated by altered mental status with CT and MRI showing evidence of acute left posterior temporal and occipital stroke with old right occipital stroke. Patient has remained stable with no focal neurologic deficits at this point. LV function preserved with no major valvular abnormalities. Labs stable with normal kidney function and blood counts. No arrhythmias at any point on telemetry. Patient remains without acute complaints. She has been able to ambulate to bathroom. Acute rehab advised given recent stroke, and patient has verbally agreed. No anginal symptoms or neurologic changes. Continuing baseline medical therapy of patient's CAD with recent PCI. Continue DAPT, high intensity statin, and beta-nando. Given lack of atrial arrhythmias, currently no indication for anticoagulation. Patient stable for transfer to general medical floor pending discharge to acute rehab. Medically stable for discharge when accepted by rehab. Case discussed with clinical coordinators. Justine Godwin MD Department of Internal Medicine Division of Endocrinology, Diabetes, & Metabolism Endocrinology Note Patient Name: Neil Wellington : 1970 AGE: 53 y.o. Room/Bed: T1-111/T1-111 A Admission Date: 03/15/2024 Visit Date: 03/22/2024 Reason for Endocrine Consult: uncontrolled DM Provider/Team Requesting Consult: Cardiology PCP: Luz Mcdermott Outpt Peanut Cleaner: No ASSESSMENT: Uncontrolled DM2 Med noncompliance NSTEMI-stents placed 03/16/24 CKD 3 Depression Tobacco abuse HTN/HLP Poor vision Psoriatic arthritis PLAN: Keep lantus to 26 units HS Humalog 14//14 units before meals Continue Humalog low dose SS Add humalog HS scale dose 4 units PRN if eats late snack Psych consult for depression- refusing psych meds Refusing diabetes education ICU goal <180 GMF goal <150 POCT BG ACHS Hypoglycemia management per protocol Carb controlled diet ANTICIPATED ENDOCRINE HOME GOING RECOMMENDATIONS: Optimized for Discharge from Endocrine standpoint: yes Home Going Endocrine Rx Recommendations-- Please continue current insulins to [facility] Start trulicity 0.75 weekly Jardiance 25 mg po daily Once out of rehab start metformin 500 mg po bid Meter + testing supplies Outpt Follow Up-- PCP SUBJECTIVE/HPI: CHIEF COMPLAINT: No chief complaint on file. Patient presented to [facility] ED with CP radiating down left arm and jaw pain started 03/13/24 Patient transferred from [facility] had there -for NSTEMI--for CABG vs stents--patient declines surgery Had heart cath and stents placed at [facility] 03/16/24 EF improved on ANNY after stents placed ( was 44% at [facility]) Today patient is resting in bed, barely opens eyes Endorses not taking any medications ordered for more than year Reviewed PCP not from care everywhere 07/2023 states depression reason for not taking medications--patient states ahe did npot follow up with PCP at that visit was advised ED for HTN and patient refused--states memory issues at that time--does not look like mediction for depression was discussed Today she says she does not care Reviewed A1c and need for insulin here but we need to discuss plan. Patient just states I don't care several times in trying determine what plan of treatment she is willing to do--discussed with Dr Caal will place psych consult Asked about appetite and what she ate--I don't remember Per nursing ate eggs and hungarian toast for BF Interval events BGL below Resting in bed- tired today VSS RA Flat affect Had all of bfast- eggs and sides (cannot recall) Not sure if she had late snack "but maybe did" Did eat dinner last night Today for lunch- per nursing she had "M&M candy before bgl check- now 392" She denies nv abd pain No family in room Does not want to take home insulins Will plan for this on DC Will go to [facility] Spoke with nursing Type of DM: DM2 Onset of DM: age 51 Home DM Medication Regimen: was ordered but not clear if she ever took regularly DM control (last A1c/glucose data): Lab Results Component Value Date HGBA1C 13.3 (H) 03/16/2024 Glucose Date/Time Value Ref Range Status 03/21/2024 07:46 PM 241 (H) 70 - 100 mg/dL Final 03/21/2024 04:59 PM 262 (H) 70 - 100 mg/dL Final 03/21/2024 12:07 PM 177 (H) 70 - 100 mg/dL Final 03/21/2024 07:48 AM 183 (H) 70 - 100 mg/dL Final 03/20/2024 07:55 PM 264 (H) 70 - 100 mg/dL Final 03/20/2024 03:58 PM 165 (H) 70 - 100 mg/dL Final Review of Systems Respiratory: Negative for chest tightness and shortness of breath. Cardiovascular: Negative for chest pain. Skin: Negative for wound. Neurological: Negative for numbness. Psychiatric/Behavioral: Positive for behavioral problems. ROS negative except for those mentioned in HPI. OBJECTIVE: Vitals: 03/21/24 1659 03/21/24 2005 03/22/24 0222 03/22/24 0847 BP: 138/84 126/70 124/76 BP Location: Left arm Left arm Patient Position: Lying Sitting Pulse: 92 85 95 Resp: 20 18 18 Temp: 36.6 C (97.9 F) 36.8 C (98.2 F) 36.3 C (97.3 F) TempSrc: Temporal Temporal Oral SpO2: 95% 93% 95% Weight: 199 lb (90.3 kg) Height: Physical Exam Vitals and nursing note reviewed. Constitutional: General: She is awake. She is not in acute distress. Appearance: She is obese. Eyes: Conjunctiva/sclera: Conjunctivae normal. Cardiovascular: Rate and Rhythm: Normal rate. Pulses: Normal pulses. Pulmonary: Breath sounds: Normal breath sounds. Abdominal: General: Bowel sounds are normal. Tenderness: There is no guarding. Musculoskeletal: General: No swelling. Normal range of motion. Skin: General: Skin is warm and dry. Neurological: Mental Status: She is alert and oriented to person, place, and time. Mental status is at baseline. Psychiatric: Attention and Perception: She is inattentive. Mood and Affect: Mood is depressed. Behavior: Behavior is slowed and withdrawn. Comments: 24 hour intake/output: Intake/Output Summary (Last 24 hours) at 03/22/2024 0854 Last data filed at 03/21/2024 1200 Gross per 24 hour Intake 250 ml Output -- Net 250 ml Diet: Adult diet Regular; 4 carb choices (60 gm/meal); Low Fat/Low Chol/High Fiber/2 gm Na Medications (as per EMR): HomeMeds: No current outpatient medications Scheduled Meds:aspirin, 81 mg, Oral, Daily carvedilol, 6.25 mg, Oral, BID enoxaparin, 40 mg, SubCUTAneous, Daily insulin glargine, 26 Units, SubCUTAneous, Nightly insulin lispro, 0-12 Units, SubCUTAneous, TID WC insulin lispro, 14 Units, SubCUTAneous, TID WC insulin lispro, 4 Units, SubCUTAneous, Nightly losartan, 50 mg, Oral, Daily rosuvastatin, 40 mg, Oral, Nightly ticagrelor, 90 mg, Oral, BID Continuous Infusions: PRN Meds:PRN medications: acetaminophen OR acetaminophen OR acetaminophen, dextrose, dextrose, glucagon (rDNA), glucose, ipratropium-albuterol, naloxone, nitroglycerin, ondansetron ODT OR ondansetron, sodium chloride Diagnostic Workup: I reviewed pertinent Laboratory results, Radiographic results, and Other Clinical Notes at the time of today's encounter. Labs: No components found for: "LABA1C" No components found for: "EAG" Lab Results Component Value Date NA 135 03/22/2024 K 4.6 03/22/2024 CL 105 03/22/2024 CO2 21 (L) 03/22/2024 BUN 24 (H) 03/22/2024 CREATININE 1.11 (H) 03/22/2024 GLUCOSE 187 (H) 03/22/2024 CALCIUM 9.4 03/22/2024 Lab Results Component Value Date CHOL 173 03/16/2024 Lab Results Component Value Date TRIG 150 (H) 03/16/2024 Lab Results Component Value Date HDL 39 (L) 03/16/2024 Lab Results Component Value Date LDLCALC 104 (H) 03/16/2024 No results found for: "VLDL" Lab Results Component Value Date CHOLHDLRATIO 4 03/16/2024 No results found for: "[id number]" Lab Results Component Value Date TSH 1.923 03/16/2024 Radiology reportsas per the Radiologist Radiology: POCT glucose meter Result Date: 03/16/2024 Performed by: [facility], [address] [place] [id number] CLIA ID: [id number] POCT glucose meter Result Date: 03/16/2024 Performed by: [facility], [address] [place] [id number] CLIA ID: [id number] POCT ACT Result Date: 03/16/2024 Performed by: [facility], [address] [place] [id number] CLIA ID: [id number] POCT ACT Result Date: 03/16/2024 Performed by: [facility], [address] [place] [id number] CLIA ID: [id number] POCT ACT Result Date: 03/16/2024 Performed by: [facility], [address] [place] [id number] CLIA ID: [id number] ECG 12 lead Sinus rhythm Right axis deviation Abnormal T, consider ischemia, lateral leads ST elevation, consider inferior injury Cardiac procedure Result Date: 03/16/2024 - Successful IVUS guided PCI of ostial to mid circumflex artery with deployment of 3.0 mm x 48 mm Synergy KINGSLEY - Successful IVUS guided PCI of ostial RCA with deployment of 4.0 mm x 12 mm Xience KINGSLEY - Medical therapy for mild to moderate disease of LAD and ramus POCT glucose meter Result Date: 03/16/2024 Performed by: [facility], [address] [place] [id number] CLIA ID: [id number] POCT glucose meter Result Date: 03/15/2024 Performed by: [facility], [address] [place] [id number] CLIA ID: [id number] XR chest 1 view Result Date: 03/15/2024 Patient Name: NEIL WELLINGTON : 1970 Exam Date/Time: 03/15/2024 20:23 Procedure: XR CHEST 1 VIEW Ordering Provider: ORTIZ JOSEPH Reason For Exam: Shortness of breath PORTABLE CHEST: INDICATION: Shortness of breath COMPARISON: No previous studies are available for comparison. Obtained at 2020 hours. A single portable AP radiograph of the chest was obtained. The heart is borderline in size. The mediastinal silhouette is normal. There is mild vascular congestion. No effusions or acute infiltrates. There is no pleural thickening. The osseous structures are unremarkable. Mild vascular congestion. Report Dictated on Electronically Signed By: Jordan Davies DO Electronically Signed Date/Time: 03/15/2024 10:47 PM EDT ECG 12 lead Sinus rhythm Probable left atrial enlargement Abnormal T, consider ischemia, lateral leads ST elevation, consider inferior injury History/Other: Past Medical History: History reviewed. No pertinent past medical history. Past Surgical History: Past Surgical History: Procedure Laterality Date CARDIAC CATHETERIZATION N/A 03/16/2024 Performed by Maximo Max MD at [facility] Cardiac Cath/EP Lab CARDIAC CATHETERIZATION N/A 03/16/2024 Performed by Maximo Max MD at [facility] Cardiac Cath/EP Lab CARDIAC CATHETERIZATION N/A 03/16/2024 Performed by Maximo Max MD at [facility] Cardiac Cath/EP Lab Allergy(ies): No Known Allergies Family History: No family history on file. Social History: Social History Tobacco Use Smoking status: Unknown Portions of the information within this encounter were entered using an electronic dictation system. Best attempts were made to edit/proofread the information prior to note completion. Despite the review of information, some errors may remain. If there are questions related to the information contained within the note please contact the signing physician directly. I spent 15 minutes with the pt which involved coordination of care, medical evaluation, review of records, and/or counseling of the pt regarding his/her condition/disease state/prognosis on the date of this note. Associated attestation - Jazmine Caal MD - 03/22/2024 5:25 PM EDT I performed a history and physical examination of the patient. I have reviewed the patient's chart including pertinent history, medications, labs, radiology, and other reports. I reviewed the resident/AMINTA's note, agree with the documented findings and plan of care (with modifications noted if any), and discussed the management plan. Pt was in bed. Lethargic/sleepy but able to communicate. Still with poor vision. Eating well. She had candy before lunch (M&M's) that her family brought in. BG higher today. Adult diet Regular; 4 carb choices (60 gm/meal); Low Fat/Low Chol/High Fiber/2 gm Na Estimated Creatinine Clearance: 62 mL/min (A) (by C-G formula based on SCr of 1.11 mg/dL (H)). BP 128/77 (BP Location: Right arm, Patient Position: Sitting) Pulse 87 Temp (!) 35.9 C (96.7 F) (Temporal) Resp 18 Ht 5' 2" (1.575 m) Wt 199 lb (90.3 kg) SpO2 95% BMI 36.40 kg/m Obese, sleepy, not in distress, RRR, abdomen soft, nontender, no edema, no focal deficits, poor vision, flat affect. Dx: Type 2 DM with complications, uncontrolled, on long-term insulin Type 2 DM with hyperglycemia CAD/NSTEMI s/p PCI Acute strokes Depression Poor compliance with therapy Tobacco abuse Vision impairment Plan: -pt with poorly controlled DM due to poor compliance -continue Lantus 26 at bedtime -continue Humalog 14 units TID + mod dose SS -continue Humalog 4 units with bedtime snack -closely monitor BG; adjust doses as necessary -management of hypoglycemia per protocol -counseled pt on DM management -carb controlled diet --discussed importance of compliance with diet -s/p DSME --limited participation due to poor vision; will need continued education -pt declined tx for ongoing depression -tobacco cessation -FU with Ophthalmology -Noted plan for discharge to [facility] Anticipated homegoing regimen: Lantus/Humalog at [facility]; possibly switch to Trulicity, metformin, and Jardiance on DC to home; resume liset CGM FU with Endocrinology outpatient. Total time 20 minutes which include review of records, counseling, management, and coordination of care as documented in note. Images from the original note were not included. Speech-Language Pathology SPEECH LANGUAGE PATHOLOGY [facility] Language Treatment Note Patient Name: Neil Wellington Evaluation Date: 03/21/2024 Date of : 1970 Admission Date: 03/15/2024 7:36 PM Age: 53 y.o. Room/Bed: T1-111/T1-111 A Subjective Patient alert and cooperative. Seen upright in bedside chair. No visitors at bedside. Spoke with RN Mundo who cleared pt for treatment. Pain: 0-10 pain scale: 2/10 Location: hand PPE Worn: gloves Objective & Assessment Language Treatment Language Activity 1: Assess graphic expression - signature: 100% Writing words to dictation (3 - 7 letters) 75%= . Sentence completion (1 word required) = 20% (noted reversal of letters and semantic paraphasias). Writing words by description: 80% Language Activity 2: Naming objects - patient named objects x 40% accuracy independently and with a ist phoneme cue = 100%. Patient is frustrated by her inability to find her words Spoke with the RN. Patient was seen by ophthalmology and there is no ocular deficit. Plan & Recommendations Plan: Continue acute HULL AND DECK REMOVER therapy per initial plan of care and established goals. D/C Recommendations: ongoing speech therapy at next level of care Education Education Given: role of therapy Given To: patient Response: demonstrated understanding Goals Patient Stated Goal: to be able to speak clearly Encounter Problems Encounter Problems (Active) Speech/Language/Cognition Patient will name objects/items in environment or functional pictures with 75% accuracy (Progressing) Start: 03/19/24 Expected End: 04/02/24 Patient will participate with evaluation of reading comprehension and graphic expression. (Progressing) Start: 03/19/24 Expected End: 04/02/24 Encounter Problems (Resolved) HULL AND DECK REMOVER Misc Misc 1 (Completed) Start: 03/19/24 Expected End: 04/02/24 Resolved: 03/20/24 Goal Note Patient will follow 3 step commands x 80% Therapy Time HULL AND DECK REMOVER Individual Minutes Time In: 1520 Time Out: 1540 Minutes: 20 SALVADOR Teran Images from the original note were not included. PHYSICAL THERAPY [facility] Treatment Note Name/MRN: Neil Wellington ([id number]) Date of : 1970 Age: 53 y.o. Room/Bed: T1-111/T1-111 A Discharge Recommendation: IP Rehab Equipment Needed: (TBD at next level of care) Prior Level of Function ADL Assistance: Independent Ambulation Assistance: Independent Transfer Assistance: Independent Assessment Pt requires min to mod assist for ambulation. She is unsteady and at increased risk for falls. No PT goals met this session. Recommend IP Rehab at discharge. Subjective Pt is supine in the bed, agrees to PT. Reports being really tired. Pain: Pt denies any current pain. Medical Precautions: No active isolations Proper PPE donned/doffed in accordance with facility standards. Fall Risk: Llamas Fall Risk Score: 45 (High Risk) Precautions/Restrictions: Lines/Drains/Airways: IV, tele Overall Cognitive Status: Exceptions - Safety judgement: decreased awareness of need for assistance and decreased awareness of need for safety - Problem solving: assistance required to identify errors made, assistance required to correct errors made, and decreased awareness of errors Family/Caregiver Present: none Objective Bed Mobility Supine to sit: SBA Sit to supine: SBA Transfers/Mobility Sit to stand: Min Assist Stand to sit: Min Assist Toilet: Min Assist Verbal cues for hand placement Ambulation Ambulation 1 Assistive device(s) used: front wheeled walker Assist level: Min Assist, Mod Assist Distance (ft): 20 ft x 2 Quality of gait: pt needed assist to maneuver FWW Balance: Pt stood at sink to wash and dry hands with min assist Exercises Exercises Quad Sets: x 5 Heelslides: x10 Hip Flexion: x10 seated Hip Abduction: x10 Knee Long Arc Quad: x10 seated Ankle Pumps: x10 Plan Continue acute PT per plan of care. Safety/Education Safety Safety Devices in place: All fall risk precautions in place, call light within reach, left in bed, bed alarm in place, patient at risk for falls, and nurse notified Restraints: No Education Education Given To: patient Education Provided: PT Role, PT Goals, Gait Training, Plan of Care, Transfer Training, and Discharge Recommendations Education Method: Verbal Barriers to Learning: Cognition Education Outcome: Continued Education Needed Outcome Measures AM-PAC AM-PAC Inpatient Mobility Raw Score (No Stairs) : 16 JH-HLM -HLM Score: Walked 25 ft or more (i.e. walked outside of room) Goals Patient Stated Goal: to go home Encounter Problems Encounter Problems (Active) Mobility Patient will ambulate 150 feet with min assist and least restrictive device in order to improve safety and independence with mobility. (Progressing) Start: 03/19/24 Patient will ascend and descend 5 stairs with no assistive device and min assist in order to safely negotiate home. (Not Addressed) Start: 03/19/24 Pain - Adult Transfers Patient will perform bed mobility with modified independence in order to improve independence and prepare for out of bed mobility. (Progressing) Start: 03/19/24 Patient will complete functional transfer with one hand hold with modified independence in order to prepare for ambulation. (Progressing) Start: 03/19/24 Therapy Time Individual Co-treatment Time In 1146 Time Out 1209 Minutes 23 Timed Code Treatment Minutes: (GT, FA) Claribel Castaneda PTA Department of Internal Medicine Division of Endocrinology, Diabetes, & Metabolism Endocrinology Note Patient Name: Neil Wellington : 1970 AGE: 53 y.o. Room/Bed: T1-111/T1-111 A Admission Date: 03/15/2024 Visit Date: 03/21/2024 Reason for Endocrine Consult: uncontrolled DM Provider/Team Requesting Consult: Cardiology PCP: Luz Mcdermott Outpt Peanut Cleaner: No ASSESSMENT: Uncontrolled DM2 Med noncompliance NSTEMI-stents placed 03/16/24 CKD 3 Depression Tobacco abuse HTN/HLP Poor vision Psoriatic arthritis PLAN: Keep lantus to 26 units HS Humalog 09/05/12 units before meals Continue Humalog low dose SS Add humalog HS scale dose 4 units PRN if eats late snack Psych consult for depression- refusing psych meds Refusing diabetes education ICU goal <180 GMF goal <150 POCT BG ACHS Hypoglycemia management per protocol Carb controlled diet ANTICIPATED ENDOCRINE HOME GOING RECOMMENDATIONS: Optimized for Discharge from Endocrine standpoint: yes Home Going Endocrine Rx Recommendations-- Please continue current insulins to [facility] Start trulicity 0.75 weekly Jardiance 25 mg po daily Once out of rehab start metformin 500 mg po bid Meter + testing supplies Outpt Follow Up-- PCP SUBJECTIVE/HPI: CHIEF COMPLAINT: No chief complaint on file. Patient presented to [facility] ED with CP radiating down left arm and jaw pain started 03/13/24 Patient transferred from [facility] had there -for NSTEMI--for CABG vs stents--patient declines surgery Had heart cath and stents placed at [facility] 03/16/24 EF improved on ANNY after stents placed ( was 44% at [facility]) Today patient is resting in bed, barely opens eyes Endorses not taking any medications ordered for more than year Reviewed PCP not from care everywhere 07/2023 states depression reason for not taking medications--patient states ahe did npot follow up with PCP at that visit was advised ED for HTN and patient refused--states memory issues at that time--does not look like mediction for depression was discussed Today she says she does not care Reviewed A1c and need for insulin here but we need to discuss plan. Patient just states I don't care several times in trying determine what plan of treatment she is willing to do--discussed with Dr Caal will place psych consult Asked about appetite and what she ate--I don't remember Per nursing ate eggs and hungarian toast for BF Interval events BGL below-better controlled today Resting in chair VSS RA Flat affect Had all of bfast- eggs and sides Has bebeto crackers over night Did eat dinner last night- nursing did not give humalog per MAR She denies nv abd pain No family in room Does not want to take home insulins Will plan for this on DC Will go to [facility] rehab over stay here Spoke with nursing Type of DM: DM2 Onset of DM: age 51 Home DM Medication Regimen: was ordered but not clear if she ever took regularly DM control (last A1c/glucose data): Lab Results Component Value Date HGBA1C 13.3 (H) 03/16/2024 Glucose Date/Time Value Ref Range Status 03/21/2024 07:48 AM 183 (H) 70 - 100 mg/dL Final 03/20/2024 07:55 PM 264 (H) 70 - 100 mg/dL Final 03/20/2024 03:58 PM 165 (H) 70 - 100 mg/dL Final 03/20/2024 12:19 PM 227 (H) 70 - 100 mg/dL Final 03/20/2024 08:10 AM 216 (H) 70 - 100 mg/dL Final 03/20/2024 06:26 AM 208 (H) 70 - 100 mg/dL Final Review of Systems Respiratory: Negative for chest tightness and shortness of breath. Cardiovascular: Negative for chest pain. Skin: Negative for wound. Neurological: Negative for numbness. Psychiatric/Behavioral: Positive for behavioral problems. ROS negative except for those mentioned in HPI. OBJECTIVE: Vitals: 03/20/24 1936 03/21/24 0056 03/21/24 0522 03/21/24 0615 BP: 121/82 147/86 127/66 BP Location: Left arm Left arm Left arm Patient Position: Sitting Lying Lying Pulse: 84 91 91 Resp: 20 16 20 Temp: 36.6 C (97.8 F) 36.7 C (98 F) TempSrc: Temporal Temporal SpO2: 96% 95% 94% Weight: 201 lb 11.5 oz (91.5 kg) Height: Physical Exam Vitals and nursing note reviewed. Constitutional: General: She is awake. She is not in acute distress. Appearance: She is obese. Eyes: Conjunctiva/sclera: Conjunctivae normal. Cardiovascular: Rate and Rhythm: Normal rate. Pulses: Normal pulses. Pulmonary: Breath sounds: Normal breath sounds. Abdominal: General: Bowel sounds are normal. Tenderness: There is no guarding. Musculoskeletal: General: No swelling. Normal range of motion. Skin: General: Skin is warm and dry. Neurological: Mental Status: She is alert and oriented to person, place, and time. Mental status is at baseline. Psychiatric: Attention and Perception: She is inattentive. Mood and Affect: Mood is depressed. Behavior: Behavior is slowed and withdrawn. Comments: 24 hour intake/output: Intake/Output Summary (Last 24 hours) at 03/21/2024 09 Last data filed at 03/20/20242041 Gross per 24 hour Intake 640 ml Output -- Net 640 ml Diet: Adult diet Regular; 4 carb choices (60 gm/meal); Low Fat/Low Chol/High Fiber/2 gm Na Medications (as per EMR): HomeMeds: No current outpatient medications Scheduled Meds:aspirin, 81 mg, Oral, Daily carvedilol, 6.25 mg, Oral, BID WC enoxaparin, 40 mg, SubCUTAneous, Daily insulin glargine, 26 Units, SubCUTAneous, Nightly insulin lispro, 0-12 Units, SubCUTAneous, TID WC insulin lispro, 12 Units, SubCUTAneous, TID WC insulin lispro, 4 Units, SubCUTAneous, Nightly losartan, 50 mg, Oral, Daily rosuvastatin, 40 mg, Oral, Nightly ticagrelor, 90 mg, Oral, BID Continuous Infusions: PRN Meds:PRN medications: acetaminophen OR acetaminophen OR acetaminophen, dextrose, dextrose, glucagon (rDNA), glucose, ipratropium-albuterol, naloxone, nitroglycerin, ondansetron ODT OR ondansetron, sodium chloride Diagnostic Workup: I reviewed pertinent Laboratory results, Radiographic results, and Other Clinical Notes at the time of today's encounter. Labs: No components found for: "LABA1C" No components found for: "EAG" Lab Results Component Value Date NA 135 03/21/2024 K 4.7 03/21/2024 CL 104 03/21/2024 CO2 20 (L) 03/21/2024 BUN 15 03/21/2024 CREATININE 0.91 03/21/2024 GLUCOSE 189 (H) 03/21/2024 CALCIUM 9.6 03/21/2024 Lab Results Component Value Date CHOL 173 03/16/2024 Lab Results Component Value Date TRIG 150 (H) 03/16/2024 Lab Results Component Value Date HDL 39 (L) 03/16/2024 Lab Results Component Value Date LDLCALC 104 (H) 03/16/2024 No results found for: "VLDL" Lab Results Component Value Date CHOLHDLRATIO 4 03/16/2024 No results found for: "[id number]" Lab Results Component Value Date TSH 1.923 03/16/2024 Radiology reportsas per the Radiologist Radiology: POCT glucose meter Result Date: 03/16/2024 Performed by: [facility], [address] [place] [id number] CLIA ID: [id number] POCT glucose meter Result Date: 03/16/2024 Performed by: [facility], [address] [place] [id number] CLIA ID: [id number] POCT ACT Result Date: 03/16/2024 Performed by: [facility], [address] [place] [address] CLIA ID: [id number] POCT ACT Result Date: 03/16/2024 Performed by: [facility], [address] [place] [address] CLIA ID: [id number] POCT ACT Result Date: 03/16/2024 Performed by: [facility], [address] [place] [address] CLIA ID: [id number] ECG 12 lead Sinus rhythm Right axis deviation Abnormal T, consider ischemia, lateral leads ST elevation, consider inferior injury Cardiac procedure Result Date: 03/16/2024 - Successful IVUS guided PCI of ostial to mid circumflex artery with deployment of 3.0 mm x 48 mm Synergy KINGSLEY - Successful IVUS guided PCI of ostial RCA with deployment of 4.0 mm x 12 mm Xience KINGSLEY - Medical therapy for mild to moderate disease of LAD and ramus POCT glucose meter Result Date: 03/16/2024 Performed by: [facility], [address] [place] [id number] CLIA ID: [id number] POCT glucose meter Result Date: 03/15/2024 Performed by: [facility], [address] [place] [address] CLIA ID: [id number] XR chest 1 view Result Date: 03/15/2024 Patient Name: NEIL WELLINGTON : 1970 [id number] Exam Date/Time: 03/15/2024 20:23 Procedure: XR CHEST 1 VIEW Ordering Provider: ORTIZ JOSEPH Reason For Exam: Shortness of breath PORTABLE CHEST: INDICATION: Shortness of breath COMPARISON: No previous studies are available for comparison. Obtained at 2020 hours. A single portable AP radiograph of the chest was obtained. The heart is borderline in size. The mediastinal silhouette is normal. There is mild vascular congestion. No effusions or acute infiltrates. There is no pleural thickening. The osseous structures are unremarkable. Mild vascular congestion. Report Dictated on Electronically Signed By: Jordan Davies DO Electronically Signed Date/Time: 03/15/2024 10:47 PM EDT ECG 12 lead Sinus rhythm Probable left atrial enlargement Abnormal T, consider ischemia, lateral leads ST elevation, consider inferior injury History/Other: Past Medical History: History reviewed. No pertinent past medical history. Past Surgical History: Past Surgical History: Procedure Laterality Date CARDIAC CATHETERIZATION N/A 03/16/2024 Performed by Maximo Max MD at [facility] Cardiac Cath/EP Lab CARDIAC CATHETERIZATION N/A 03/16/2024 Performed by Maximo Max MD at [facility] Cardiac Cath/EP Lab CARDIAC CATHETERIZATION N/A 03/16/2024 Performed by Maximo Max MD at [facility] Cardiac Cath/EP Lab Allergy(ies): No Known Allergies Family History: No family history on file. Social History: Social History Tobacco Use Smoking status: Unknown Portions of the information within this encounter were entered using an electronic dictation system. Best attempts were made to edit/proofread the information prior to note completion. Despite the review of information, some errors may remain. If there are questions related to the information contained within the note please contact the signing physician directly. I spent 15 minutes with the pt which involved coordination of care, medical evaluation, review of records, and/or counseling of the pt regarding his/her condition/disease state/prognosis on the date of this note. Associated attestation - Jazmine Caal MD - 03/21/2024 5:31 PM EDT I performed a history and physical examination of the patient. I have reviewed the patient's chart including pertinent history, medications, labs, radiology, and other reports. I reviewed the resident/AMINTA's note, agree with the documented findings and plan of care (with modifications noted if any), and discussed the management plan. Pt was in bed. Feels tired. Mild aphasia. Poor vision. Was seen by Ophthalmology no ocular deficits from stroke but will need follow-up outpatient for formal visual testing. Eating well. BG overall improved but higher before dinner. Patient was seen by primary special educator today; unable to participate in insulin teaching due to poor vision. Adult diet Regular; 4 carb choices (60 gm/meal); Low Fat/Low Chol/High Fiber/2 gm Na Estimated Creatinine Clearance: 76.1 mL/min (by C-G formula based on SCr of 0.91 mg/dL). BP 138/99 (BP Location: Left arm, Patient Position: Lying) Pulse 87 Temp 36.9 C (98.4 F) (Temporal) Resp 20 Ht 5' 2" (1.575 m) Wt 201 lb 11.5 oz (91.5 kg) SpO2 94% BMI 36.90 kg/m Obese, awake, alert, not in distress, RRR, abdomen soft, nontender, no edema, no focal deficits, poor vision, mild expressive aphasia, flat affect. Dx: Type 2 DM with complications, uncontrolled, on long-term insulin Type 2 DM with hyperglycemia CAD/NSTEMI s/p PCI Acute strokes Depression Poor compliance with therapy Tobacco abuse Vision impairment Plan: -pt with poorly controlled DM due to poor compliance -continue Lantus 26 at bedtime -increase Humalog 14 units TID + mod dose SS -continue Humalog 4 units with bedtime snack -closely monitor BG; adjust doses as necessary -management of hypoglycemia per protocol -counseled pt on DM management -carb controlled diet -s/p DSME --will need continued education -pt declined tx for ongoing depression -tobacco cessation -Noted plan for discharge to [facility] Anticipated homegoing regimen: Lantus/Humalog at [facility]; possibly switch to Trulicity, metformin, and Jardiance vs insulin; will resume liset CGM FU with Endocrinology outpatient. Total time 25 minutes which include review of records, counseling, management, and coordination of care as documented in note. Images from the original note were not included. [facility] PROGRESS NOTE Patient Name: Neil Wellington : 1970 Subjective: Interval History: no acute events overnight. When seen alert and oriented to place and self. No complaints today. Review of Systems: Review of Systems Constitutional: Negative for chills, fatigue and fever. Respiratory: Negative for cough and shortness of breath. Cardiovascular: Negative for chest pain and palpitations. Gastrointestinal: Negative for abdominal distention, abdominal pain, diarrhea, nausea and vomiting. Genitourinary: Negative for difficulty urinating. Psychiatric/Behavioral: Positive for confusion. Inpatient Medications: Scheduled Meds:aspirin, 81 mg, Oral, Daily carvedilol, 6.25 mg, Oral, BID WC enoxaparin, 40 mg, SubCUTAneous, Daily insulin glargine, 26 Units, SubCUTAneous, Nightly insulin lispro, 0-12 Units, SubCUTAneous, TID WC insulin lispro, 12 Units, SubCUTAneous, TID WC insulin lispro, 4 Units, SubCUTAneous, Nightly losartan, 50 mg, Oral, Daily rosuvastatin, 40 mg, Oral, Nightly ticagrelor, 90 mg, Oral, BID Continuous Infusions: PRN Meds used in the last 24hr: none Objective: Physical Examination: BP 127/66 (BP Location: Left arm, Patient Position: Lying) Pulse 91 Temp 36.7 C (98 F) (Temporal) Resp 20 Ht 5' 2" (1.575 m) Wt 201 lb 11.5 oz (91.5 kg) SpO2 94% BMI 36.90 kg/m Intake/Output Summary (Last 24 hours) at 03/21/2024 0722 Last data filed at 03/20/20242041 Gross per 24 hour Intake 760 ml Output -- Net 760 ml Physical Exam Vitals reviewed. Constitutional: General: She is not in acute distress. Cardiovascular: Rate and Rhythm: Normal rate and regular rhythm. Pulses: Normal pulses. Heart sounds: Normal heart sounds. No murmur heard. Pulmonary: Effort: Pulmonary effort is normal. No respiratory distress. Breath sounds: Normal breath sounds. No wheezing. Abdominal: General: Abdomen is flat. Bowel sounds are normal. There is no distension. Tenderness: There is no abdominal tenderness. Musculoskeletal: Right lower leg: No edema. Left lower leg: No edema. Skin: General: Skin is warm and dry. Neurological: Mental Status: She is alert. Psychiatric: Comments: A&Ox2 Pertinent Labs: BMP: Lab Results Component Value Date NA 135 03/21/2024 K 4.7 03/21/2024 CL 104 03/21/2024 CO2 20 (L) 03/21/2024 BUN 15 03/21/2024 CREATININE 0.91 03/21/2024 GLUCOSE 189 (H) 03/21/2024 CALCIUM 9.6 03/21/2024 MG 2.0 03/21/2024 PHOS 5.0 (H) 03/21/2024 CBC: Lab Results Component Value Date WBC 14.2 (H) 03/21/2024 HGB 14.5 03/21/2024 HCT 43.5 03/21/2024 MCV 86.3 03/21/2024 PLT 257 03/21/2024 Cardiac profile: TROPONIN I Date Value Ref Range Status 03/16/2024 37.400 (HH) <0.034 ng/mL Final 03/16/2024 41.600 (HH) <0.034 ng/mL Final 03/15/2024 32.700 (HH) <0.034 ng/mL Final Coagulation: No results found for: "INR", "PTT" Lipid panel: Lab Results Component Value Date CHOL 173 03/16/2024 HDL 39 (L) 03/16/2024 TRIG 150 (H) 03/16/2024 Other: Lab Results Component Value Date HGBA1C 13.3 (H) 03/16/2024 TSH 1.923 03/16/2024 Chest Imaging: CXR: === 03/15/24 === XR ABDOMEN 1 VIEW - Impression - No findings that preclude MR imaging. Report Dictated on Electronically Signed By: Emelia Galeana MD Electronically Signed Date/Time: 03/19/2024 11:52 AM EDT Cardiac Studies: Telemetry findings reviewed: yes ECG: Encounter Date: 03/15/24 ECG 12 lead Result Value Heart Rate 85 QRSD Interval 90 QT Interval 410 QTC Interval 487 P [place] -44 QRS [place] 154 T Wave [place] 96 [place] Interval 150 Impression Sinus rhythm Right axis deviation Abnormal T, consider ischemia, lateral leads Electronically Signed On 03-18-2024 17:22:31 EDT by Justine Connolly Echo: 03/15/24 TRANSTHORACIC ECHOCARDIOGRAM (TTE) COMPLETE (CONTRAST/BUBBLE/3D PRN) 03/17/2024 12:46 PM (Final) Interpretation Summary Left Ventricle: Left ventricle size is normal. Mildly increased wall thickness. Normal left ventricular systolic function. EF by 2D Simpsons Biplane is 65%. See diagram for wall motion findings. Right Ventricle: Right ventricle size is normal. Normal systolic function. Mitral Valve: Not well visualized. Valve structure is normal. Moderate (2+) regurgitation. Left Atrium: Left atrium is mildly dilated. Left atrium size is mildly increased (LA volume index 35-41 mL/m2).LA Vol Index is 39 ml/m2. Signed by: Shine Almendarez MD on 03/17/2024 12:46 PM Cath Report: 03/15/24 CARDIAC PROCEDURE 03/17/2024 3:19 PM (Final) Conclusion - Successful IVUS guided PCI of ostial to mid circumflex artery with deployment of 3.0 mm x 48 mm Synergy KINGSLEY (culprit lesion) - Successful IVUS guided PCI of ostial RCA with deployment of 4.0 mm x 12 mm Xience KINGSLEY - Medical therapy for mild to moderate disease of LAD and ramus as well as ostial LMT disease Signed by: Maximo Max MD on 03/17/2024 3:19 PM Assessment/Plan NSTEMI - Presented to [facility] ED with substernal chest pain that started on 03/13/24 - Initially placed on nitroglycerin gtt which resolved - Transferred from [facility] on 03/15/24 for concern of high-risk PCI and CABG evaluation - EKG NSR with high lateral T wave inversions and no ST depression - Troponin 32.7 ==> 41.6 ==> 37.4 - proBNP elevated to 3,160 [facility] (03/16/24) - KINGSLEY to ostial-mid Lcx (85% stenosis) and ostial RCA (80% stenosis), and mild - moderate disease of LAD and ramus - Continue ASA 81 mg daily - Continue Brilinta 90 mg BID daily - Continue Losartan 50 mg daily - Continue Coreg 6.25 mg BID daily - PT/OT - PT recommending IP Rehab - Encourage ambulation HTN BP normotensive to mildly hypertensive this morning - Continue Losartan 50 mg daily - Continue Coreg 6.25 mg BID daily HLD - Continue Crestor 40 mg nighty Vasogenic Edema Suspected embolic stroke A&O x 2; rest of Neuro exam unremarkable NIH score of 1 - Neurology consulted; appreciate recs - MRA imaging ordered; FINDINGS: Diffusion-weighted imaging shows an acute infarct in the posterior temporal and occipital lobes on the left measuring 2.6 x 6.2 cm. In addition, there are several tiny posterior fossa acute infarcts involving bilateral cerebellar hemispheres and right side of bhavani. Chronic right occipital infarct. There are patchy and confluent areas of T2 bright signal in the periventricular and subcortical white matter, which are nonspecific, but may relate to chronic small vessel ischemic changes. Major intracranial flow voids are visualized. Ventricular system is normal for age. On gradient echo T2-weighted imaging, there are multiple foci of very low signal which may represent remote areas of remote hemorrhage. - Consult Speech therapy - Consult OT for visual rehab > recommended ophthalmology consult, will place - Fall precautions - Continue Tele - continue DAPT - Outpatient ANNY and event monitor recommended by neuro crit-care Suspected VALENTIN - Will need referral to Sleep Medicine outpatient for sleep study Delirium Likely in setting of current hospitalization but unaware of baseline - Psychiatry consulted; appreciate recs HFrEF (EF on 03/15/24) Euvolemic on exam TTE (03/17/24) - EF 65%, mildly increased wall thickness and moderate (2+) regurgitation - Continue Losartan 50 mg daily - Continue Coreg 6.25 mg BID daily - Consider starting Farxiga 10 mg daily in outpatient setting given history of T2DM T2DM Ha1c 13.3% (03/16/24) Non-compliant with home regimen (Metformin 500 mg BID daily, Jardiance 10 mg daily, Trulicity 3 mg once weekly) - Endocrinology following - Continue Lantus 24 units nightly - Continue Humalog 10 units TID with meals - MDSSI with meals Suspected COPD Tobacco Use - Consider obtaining PFTs outpatient - Encouraged smoking cessation; patient not ready to quit - Goals of Care: Full Code - DVT Prophylaxis: lovenox daily - GI Prophylaxis: Protonix daily - Diet: Cardiac and carb control - BMI Classification: Body mass index is 36.9 kg/m . - Disposition: Transfer to [facility] / Telemetry. > will be ready for [facility] if accepted from medical perspective Associated attestation - Justine Godwin MD - 03/21/2024 11:57 PM EDT I, Dr. Justine Godwin, saw and evaluated the patient on 03/21/2024. I personally obtained the nino and critical portions of the history and physical exam. I reviewed the medical record including labs, imaging studies, and notes. I discussed the patient with the medical advisor, and I agree with the resident's medical decision making. 53 y.o. female with uncontrolled diabetes mellitus type 2 (A1c 13.3%), hyperlipidemia, hypertension transferred from [facility] for non-STEMI and multivessel coronary disease. Successful staged PCI of ostial RCA and ostial/proximal circumflex with 2 separate KINGSLEY, with medical management of LAD disease. EF preserved. Postprocedural course complicated by altered mental status with CT and MRI showing evidence of acute left posterior temporal and occipital stroke with old right occipital stroke. Patient has remained stable with no focal neurologic deficits at this point. LV function preserved with no major valvular abnormalities. Labs stable with normal kidney function and blood counts. No arrhythmias at any point on telemetry. Patient remains without acute complaints, but is not very conversational. Acute rehab advised given recent stroke, and patient has verbally agreed. No anginal symptoms. Continuing baseline medical therapy of patient's CAD with recent PCI. Continue DAPT, high intensity statin, and beta-nando. Continue symptom management for recent embolic stroke. No evidence of hemorrhage. Currently no indication for anticoagulation. No atrial fibrillation. Patient stable for transfer to general medical floor pending discharge to acute rehab. Stable for discharge when accepted by rehab. Case discussed with clinical coordinators. Justine Godwin MD Images from the original note were not included. OCCUPATIONAL THERAPY [facility] Initial Evaluation Name/MRN: Neil Wellington ([id number]) Evaluation Date: 03/20/2024 Date of : 1970 Admission Date: 03/15/2024 7:36 PM Age: 53 y.o. Room/Bed: T1-111/T1-111 A Discharge Recommendation: IP Rehab Equipment Needed: (TBD next level of therapy) Assessment IMPRESSION: Pt admitted to [facility] for NSTEMI and possible stroke affecting the R side and vision. 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 The pt also presents to have difficulty with far sightedness and convergence at this time (see below for details). Additionally, the pt required min assist for LB ADLs and functional mobility. Presents with impulsivity and limited safety awareness. IP Rehab recommended at discharge. OT is recommending Opthalmology evaluation. Performance Deficits /Impairments: Increased Pain, Decreased Functional Mobility, Decreased ADL status, Decreased ROM, Decreased Strength, Decreased Safety Awareness, Decreased Cognition, Decreased Endurance, Decreased Balance, Decreased Vision/Visual Deficit, and Decreased High Level IADLs Prognosis: Good Decision Making: Medium Complexity Subjective Pt seen side-lying upon OT arrival. Agreeable to therapy but presents with significant fatigue. Seemed lethargic during eval. Slight aphasia noted, pt voiced frustrations with speech difficulties. Left in bed at end of session with all needs within reach, RN notified. Pain: Pt denies any current pain. Past Medical History: History reviewed. No pertinent past medical history. Past Surgical History: Past Surgical History: Procedure Laterality Date CARDIAC CATHETERIZATION N/A 03/16/2024 Performed by Maximo Max MD at [facility] Cardiac Cath/EP Lab CARDIAC CATHETERIZATION N/A 03/16/2024 Performed by Maximo Max MD at [facility] Cardiac Cath/EP Lab CARDIAC CATHETERIZATION N/A 03/16/2024 Performed by Maximo Max MD at [facility] Cardiac Cath/EP Lab Admission Diagnosis: Patient Active Problem List Diagnosis Date Noted S/P coronary artery stent placement 03/18/2024 Altered mental status, unspecified 03/18/2024 Lacunar cerebrovascular accident (CVA) ([facility]) 03/18/2024 Uncontrolled type 2 diabetes mellitus with hyperglycemia ([facility]) 03/18/2024 NSTEMI (non-ST elevated myocardial infarction) ([facility]) 03/15/2024 Psoriatic arthritis ([facility]) 11/30/2022 Chronic systolic (congestive) heart failure ([facility]) 11/30/2022 Type 2 diabetes mellitus without complication, without long-term current use of insulin ([facility]) ([facility]) 08/17/2022 Cornea ulcer 12/30/2016 SHAN III (cervical intraepithelial neoplasia grade III) with severe dysplasia 07/10/2015 ASCUS with positive high risk HPV cervical 01/29/2014 Medical Precautions: No active isolations Proper PPE donned/doffed in accordance with facility standards. Fall Risk: Llamas Fall Risk Score: 45 (High Risk) Precautions/Restrictions: Lines/Drains/Airways: IV, tele Family/Caregiver Present: none Overall Cognitive Status: Exceptions - Arousal/alertness: delayed responses to stimuli - Following commands: follows one step commands with increased time - Safety judgement: decreased awareness of need for assistance and decreased awareness of need for safety Overall Orientation Status: Oriented to Place and Oriented to Person Social/Functional History Patient admitted from home. Lives With: Significant Other Type of Home: trailer Home Layout: Single Level Home Home Access: Stairs to Enter without Rails (# of stairs: 5) Bathroom Shower/Tub: Tub/shower combo Toilet: Standard Home Equipment: none Homemaking Responsibilities: Needs Assist Receives Help From: Significant other Active Jewel Stripper: Yes Prior Level of Function ADL Assistance: Independent Ambulation Assistance: Independent Transfer Assistance: Independent Objective ADLs LE Dressing: Min Assist, While pt donned bilateral socks while sitting EOB. Impaired seated balance noted Toileting: Min Assist, to steady balance while pt completed clothing management and bindu hygiene. Upper Extremity Assessment AROM: Exceptions: LUE is WFL, R shoulder flexion ~100 degrees. PROM: WFL Strength: Exceptions: R weaker than L, demo's 3-/5 RUE, 3+/5 LUE Occupational Therapy: Neuro-Vision Assessment Visual Acuity wears glasses at all times and and are being used during the eval WFL Impaired Comments: Functional near sight [x] [] Pt able to read words that within arms reach, however when asked to look at therapist's finger that was ~10 inches from face, pt states "I cannot see a finger". Possible indication of visual loss at midline. Functional far sight [] [x] Could not read clock or see objects ~10+ feet away from pt Smooth Pursuits/Tracking WFL Impaired Comments: Crosses midline [x] [] Able to track to all quadrants [x] [] Head stays still [] [x] Head moves slightly to L side when tracking to across midline to L side Visual Field/Peripheral WFL Impaired Comments: Ocular ROM [x] [] Confrontation test [x] [] Peripherals Right [] [x] Acknowledges objects ~45 degrees from midline Left [] [x] Acknowledges objects ~45 degrees from midline Neglect Yes No Comments: Is neglect suspected? [] [x] Extinguish Test: No neglect noted on either side. Convergence WFL Impaired Comments: [] [x] Pt stops with converging ~4 inches from nose. Did not report any breaks or recovery. Breaks at N/A ; no report in break Recovers at N/A; No report of recovery Diplopia Yes No Comments: Does patient c/o double vision? [] [x] WFL Impaired [place] 4 Dot Test [] [] Not tested; as pt does not report double vision at this time. Additional Information Pt has difficulty seeing objects that are directly in front of pt, indicating possible visual loss at midline to about 10 degrees from midline bilaterally. 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 The pt also presents to have difficulty with far sightedness and convergence at this time. OT is recommending an ophthalmology evaluation. Will continue to follow and educate on compensatory strategies as needed. Further Treatment Indicated: yes, recommending ophthalmology evaluation. Hearing: normal Bed Mobility Supine to sit: SBA Sit to supine: SBA Scooting: SBA Transfers/Functional Mobility Sit to stand: Min Assist Stand to sit: Min Assist Toilet: Min Assist Sitting balance: Min Assist Standing balance: Min Assist Functional mobility: Min Assist Pt presents with impulsivity and limited safety awareness. Min assist for all tasks, demo's impaired balance. Device(s) used: none Hand dominance: Right AM-PAC AM-PAC Inpatient Daily Activity Raw Score: 20 ADL Inpatient CMS G-Code Modifier: CJ Plan Pt would benefit from skilled acute OT services to address Strengthening, ROM, Balance Training, Functional Mobility Training, Endurance Training, Neuromuscular Re-Education Training, Cognitive Reorientation, Pain Management, Safety Education and Training, Patient/Caregiver Training, Equipment Evaluation/Education, Positioning, Self-Care/ADL Training, and Visual Training. Frequency: 4x/week for 4 weeks Barriers: Pain, Decreased endurance, and vision Prognosis: good Safety/Education Safety Safety Devices in place: All fall risk precautions in place, call light within reach, left in bed, bed alarm in place, gait belt, patient at risk for falls, and nurse notified Restraints: No Education Education Given To: patient Education Provided: OT Role, Plan of Care, Low Vision Education, and Discharge Recommendations Education Method: Verbal Barriers to Learning: None Education Outcome: Verbalized Understanding Goals Patient Stated Goal: Get better Encounter Problems Encounter Problems (Active) Balance Patient will maintain dynamic standing balance for 10 minutes with modified independence in order to demonstrate decreased risk of falling. Start: 03/20/24 Expected End: 04/17/24 Bathing Patient will utilize adaptive techniques to bathe body with mod I Start: 03/20/24 Expected End: 04/17/24 Dressings Lower Extremities Patient will dress lower body with mod I Start: 03/20/24 Expected End: 04/17/24 Toileting Patient will complete toileting tasks at standard toilet with modified independence. Start: 03/20/24 Expected End: 04/17/24 Transfers Patient will complete functional transfer with no assistive device with independence in order to prepare for ambulation. Start: 03/20/24 Expected End: 04/17/24 Vision Patient will ID 4 # objects in bilateral visual hemispheres with min verbal cues. Start: 03/20/24 Expected End: 04/17/24 Therapy Time Individual Co-treatment Time In 1440 Time Out 1513 Minutes 33 Timed Code Treatment Minutes: 12 Minutes (SC-1) Boogie Booker OT Patient's Occupational Therapy Plan of Care supervision is transferred to a [facility] Occupational Therapist. Goals and/or treatment plan was established in collaboration with patient/family/other representatives. Patient again turned on her side I came to talk to her about her MRI and the plan of care but she just told me that she was tired and did not wanted to talk I am concern based on her exam, behaviour and her poor compliance that even if she was to have indications for anticoagulation that she was likely not to adhere to recommendations , I suggest conservative treatments with SAMM< ensure and prove consistent follow up Try to get event monitor and ANNY as outpatient if she was to follow up and prove compliance prior to initiating anticoagulation of any kind Images from the original note were not included. Speech-Language Pathology SPEECH LANGUAGE PATHOLOGY [facility] Language Treatment Note Patient Name: Neil Wellington Evaluation Date: 03/20/2024 Date of : 1970 Admission Date: 03/15/2024 7:36 PM Age: 53 y.o. Room/Bed: T1111/T1-111 A Subjective Patient lethargic and cooperative. Seen semi-upright in bed. No visitors at bedside. Spoke with RN Mundo who cleared pt for treatment. Pain: Pt denies any current pain. PPE Worn: gloves Objective & Assessment Language Treatment # of Activities: 3 Language Activity 1: Assess reading comprehension - patient able to identify named pictures (field of 2) x 75%. Letter recognition (field of 5) = 62% Patient matched word to picture x 80%. Reading a sentence (3 words) = 0%. Language Activity 2: Naming pictures: 40% independent and 100% with 1st phoneme cue. Language Activity 3: 3-step commands = 100% (goal met) Noted right neglect with letter recognition. Patient continues to state "I cannot see anything." Patient states that she is left handed and typically prints. Did not attempt to evaluate graphic expression due to patient somnolence and right side lying in the bed. Patient reiterated that she completed 9th or 10th grade and that she quit school to help her mother at home. Spoke with OT who is planning a vision assessment now. Plan & Recommendations Plan: Continue acute HULL AND DECK REMOVER therapy per initial plan of care and established goals. D/C Recommendations: to be determined Education Education Given: role of therapy Given To: patient and RN Response: patient needs reinforcement Goals Patient Stated Goal: None stated Encounter Problems Encounter Problems (Active) Speech/Language/Cognition Patient will name objects/items in environment or functional pictures with 75% accuracy (Progressing) Start: 03/19/24 Expected End: 04/02/24 Patient will participate with evaluation of reading comprehension and graphic expression. (Progressing) Start: 03/19/24 Expected End: 04/02/24 Encounter Problems (Resolved) HULL AND DECK REMOVER Misc Misc 1 (Completed) Start: 03/19/24 Expected End: 04/02/24 Resolved: 03/20/24 Goal Note Patient will follow 3 step commands x 80% Therapy Time HULL AND DECK REMOVER Individual Minutes Time In: 1340 Time Out: 1400 Minutes: 20 SALVADOR Teran Images from the original note were not included. PHYSICAL THERAPY [facility] Treatment Note Name/MRN: Neil Wellington ([id number]) Date of : 1970 Age: 53 y.o. Room/Bed: T1-111/T1-111 A Discharge Recommendation: IP Rehab Equipment Needed: (TBD at next level of care) Prior Level of Function ADL Assistance: Independent Ambulation Assistance: Independent Transfer Assistance: Independent Assessment Pt requires min to mod assist for mobility. She is unsteady, impulsive, and at increased risk for falls. Pt would be able to tolerate 3 hours of therapy per day. Recommend IP Rehab at discharge. Subjective Pt is supine in the bed, agrees to PT. Reports that she feels SOB. SpO2 at 96-99% on RA. Pain: Pt denies any current pain. Medical Precautions: No active isolations Proper PPE donned/doffed in accordance with facility standards. Fall Risk: Llamas Fall Risk Score: 45 (High Risk) Precautions/Restrictions: Lines/Drains/Airways: IV FALL risk Overall Cognitive Status: Exceptions - Safety judgement: decreased awareness of need for assistance and decreased awareness of need for safety - Problem solving: assistance required to identify errors made, assistance required to correct errors made, and decreased awareness of errors - Insights: decreased awareness of deficits Overall Orientation Status: Unable to Assess Family/Caregiver Present: none Objective Bed Mobility Supine to sit: Min Assist Sit to supine: Min Assist Rolling to left: Min Assist Transfers/Mobility Sit to stand: Mod Assist Stand to sit: Min Assist Verbal cues for hand placement and safety with transfers Ambulation Ambulation 1 Assistive device(s) used: front wheeled walker Assist level: Min Assist, Mod Assist Distance (ft): 8 ft x 2 Balance: static stand at FWW with min assist x 1 Exercises Exercises Heelslides: x10 Hip Abduction: x10 Knee Long Arc Quad: x10 Ankle Pumps: x10 Plan Continue acute PT per plan of care. Safety/Education Safety Safety Devices in place: All fall risk precautions in place, call light within reach, left in bed, bed alarm in place, gait belt, patient at risk for falls, and nurse notified Restraints: No Education Education Given To: patient Education Provided: PT Role, PT Goals, Gait Training, Plan of Care, Transfer Training, and Discharge Recommendations Education Method: Verbal Barriers to Learning: Cognition Education Outcome: Verbalized Understanding and Continued Education Needed Outcome Measures AM-PAC AM-PAC Inpatient Mobility Raw Score (No Stairs) : 13 JH-HLM JH-HLM Score: Walked 10 steps or more (i.e. walked to restroom) Goals Patient Stated Goal: to go home Encounter Problems Encounter Problems (Active) Mobility Patient will ambulate 150 feet with min assist and least restrictive device in order to improve safety and independence with mobility. (Progressing) Start: 03/19/24 Patient will ascend and descend 5 stairs with no assistive device and min assist in order to safely negotiate home. (Not Addressed) Start: 03/19/24 Pain - Adult Transfers Patient will perform bed mobility with modified independence in order to improve independence and prepare for out of bed mobility. (Progressing) Start: 03/19/24 Patient will complete functional transfer with one hand hold with modified independence in order to prepare for ambulation. (Progressing) Start: 03/19/24 Therapy Time Individual Co-treatment Time In 1313 Time Out 1337 Minutes 24 Timed Code Treatment Minutes: (GT. FA) Claribel Castaneda PTA Department of Internal Medicine Division of Endocrinology, Diabetes, & Metabolism Endocrinology Note Patient Name: Neil Wellington : 1970 AGE: 53 y.o. Room/Bed: T1-111/T1-111 A Admission Date: 03/15/2024 Visit Date: 03/20/2024 Reason for Endocrine Consult: uncontrolled DM Provider/Team Requesting Consult: Cardiology PCP: Luz Mcdermott Outpt Peanut Cleaner: No ASSESSMENT: Uncontrolled DM2 Med noncompliance NSTEMI-stents placed 03/16/24 CKD 3 Depression Tobacco abuse HTN/HLP Poor vision Psoriatic arthritis PLAN: Keep lantus to 26 units HS Humalog 09/05/12 units before meals Continue Humalog low dose SS Add humalog HS scale dose 4 units PRN if eats late snack Psych consult for depression- refusing psych meds Refusing diabetes education ICU goal <180 GMF goal <150 POCT BG ACHS Hypoglycemia management per protocol Carb controlled diet ANTICIPATED ENDOCRINE HOME GOING RECOMMENDATIONS: Optimized for Discharge from Endocrine standpoint: yes Home Going Endocrine Rx Recommendations-- Please continue current insulins to [facility] Start trulicity 0.75 weekly Jardiance 25 mg po daily Once out of rehab start metformin 500 mg po bid Meter + testing supplies Outpt Follow Up-- PCP SUBJECTIVE/HPI: CHIEF COMPLAINT: No chief complaint on file. Patient presented to [facility] ED with CP radiating down left arm and jaw pain started 03/13/24 Patient transferred from [facility] had there -for NSTEMI--for CABG vs stents--patient declines surgery Had heart cath and stents placed at [facility] 03/16/24 EF improved on ANNY after stents placed ( was 44% at [facility]) Today patient is resting in bed, barely opens eyes Endorses not taking any medications ordered for more than year Reviewed PCP not from care everywhere 07/2023 states depression reason for not taking medications--patient states ahe did npot follow up with PCP at that visit was advised ED for HTN and patient refused--states memory issues at that time--does not look like mediction for depression was discussed Today she says she does not care Reviewed A1c and need for insulin here but we need to discuss plan. Patient just states I don't care several times in trying determine what plan of treatment she is willing to do--discussed with Dr Caal will place psych consult Asked about appetite and what she ate--I don't remember Per nursing ate eggs and hungarian toast for BF Interval events BGL below- elevated Resting in chair VSS RA Flat affect Had all of bfast- eggs and "cannot remember what else" Has bebeto joeng over night Did eat dinner last night- nursing did not give humalog per MAR She denies nv abd pain No family in room Does not want to take home insulins Will plan for this on DC Will go to [facility] rehab over stay here Spoke with nursing Type of DM: DM2 Onset of DM: age 51 Home DM Medication Regimen: was ordered but not clear if she ever took regularly DM control (last A1c/glucose data): Lab Results Component Value Date HGBA1C 13.3 (H) 03/16/2024 Glucose Date/Time Value Ref Range Status 03/20/2024 08:10 AM 216 (H) 70 - 100 mg/dL Final 03/20/2024 06:26 AM 208 (H) 70 - 100 mg/dL Final 03/19/2024 05:01 PM 138 (H) 70 - 100 mg/dL Final 03/19/2024 12:42 PM 266 (H) 70 - 100 mg/dL Final 03/19/2024 08:52 AM 186 (H) 70 - 100 mg/dL Final 03/18/2024 05:22 PM 178 (H) 70 - 100 mg/dL Final Review of Systems Respiratory: Negative for chest tightness and shortness of breath. Cardiovascular: Negative for chest pain. Skin: Negative for wound. Neurological: Negative for numbness. Psychiatric/Behavioral: Positive for behavioral problems. ROS negative except for those mentioned in HPI. OBJECTIVE: Vitals: 03/20/24 0348 03/20/24 0400 03/20/24 0555 03/20/24 0911 BP: 149/69 138/95 BP Location: Left arm Left arm Patient Position: Sitting Sitting Pulse: 86 94 95 Resp: 20 18 Temp: 36.3 C (97.3 F) 36.2 C (97.2 F) TempSrc: Temporal Temporal SpO2: 98% 99% Weight: 203 lb 14.8 oz (92.5 kg) Height: Physical Exam Vitals and nursing note reviewed. Constitutional: General: She is awake. She is not in acute distress. Appearance: She is obese. Eyes: Conjunctiva/sclera: Conjunctivae normal. Cardiovascular: Rate and Rhythm: Normal rate. Pulses: Normal pulses. Pulmonary: Breath sounds: Normal breath sounds. Abdominal: General: Bowel sounds are normal. Tenderness: There is no guarding. Musculoskeletal: General: No swelling. Normal range of motion. Skin: General: Skin is warm and dry. Neurological: Mental Status: She is alert and oriented to person, place, and time. Mental status is at baseline. Psychiatric: Attention and Perception: She is inattentive. Mood and Affect: Mood is depressed. Behavior: Behavior is slowed and withdrawn. Comments: 24 hour intake/output: Intake/Output Summary (Last 24 hours) at 03/20/2024 1039 Last data filed at 03/20/2024 0800 Gross per 24 hour Intake 720 ml Output -- Net 720 ml Diet: Adult diet Regular; 4 carb choices (60 gm/meal); Low Fat/Low Chol/High Fiber/2 gm Na Medications (as per EMR): HomeMeds: No current outpatient medications Scheduled Meds:aspirin, 81 mg, Oral, Daily carvedilol, 6.25 mg, Oral, BID WC enoxaparin, 40 mg, SubCUTAneous, Daily insulin glargine, 26 Units, SubCUTAneous, Nightly insulin lispro, 0-12 Units, SubCUTAneous, TID WC insulin lispro, 12 Units, SubCUTAneous, TID WC losartan, 50 mg, Oral, Daily rosuvastatin, 40 mg, Oral, Nightly ticagrelor, 90 mg, Oral, BID Continuous Infusions: PRN Meds:PRN medications: acetaminophen OR acetaminophen OR acetaminophen, ALPRAZolam, dextrose, dextrose, glucagon (rDNA), glucose, ipratropium-albuterol, naloxone, nitroglycerin, ondansetron ODT OR ondansetron, sodium chloride Diagnostic Workup: I reviewed pertinent Laboratory results, Radiographic results, and Other Clinical Notes at the time of today's encounter. Labs: No components found for: "LABA1C" No components found for: "EAG" Lab Results Component Value Date NA 134 (L) 03/20/2024 K 4.1 03/20/2024 CL 103 03/20/2024 CO2 22 03/20/2024 BUN 17 03/20/2024 CREATININE 0.90 03/20/2024 GLUCOSE 312 (H) 03/20/2024 CALCIUM 9.2 03/20/2024 Lab Results Component Value Date CHOL 173 03/16/2024 Lab Results Component Value Date TRIG 150 (H) 03/16/2024 Lab Results Component Value Date HDL 39 (L) 03/16/2024 Lab Results Component Value Date LDLCALC 104 (H) 03/16/2024 No results found for: "VLDL" Lab Results Component Value Date CHOLHDLRATIO 4 03/16/2024 No results found for: "WHLC01SHE" Lab Results Component Value Date TSH 1.923 03/16/2024 Radiology reportsas per the Radiologist Radiology: POCT glucose meter Result Date: 03/16/2024 Performed by: [facility], [address] [place] [id number] CLIA ID: [id number] POCT glucose meter Result Date: 03/16/2024 Performed by: [facility], [address] [place] [id number] CLIA ID: [id number] POCT ACT Result Date: 03/16/2024 Performed by: [facility], [address] [place] [address] [id number] CLIA ID: [id number] POCT ACT Result Date: 03/16/2024 Performed by: [facility], [address] [place] [id number] CLIA ID: [id number] POCT ACT Result Date: 03/16/2024 Performed by: [facility], [address] [place] [id number] CLIA ID: [id number] ECG 12 lead Sinus rhythm Right axis deviation Abnormal T, consider ischemia, lateral leads ST elevation, consider inferior injury Cardiac procedure Result Date: 03/16/2024 - Successful IVUS guided PCI of ostial to mid circumflex artery with deployment of 3.0 mm x 48 mm Synergy KINGSLEY - Successful IVUS guided PCI of ostial RCA with deployment of 4.0 mm x 12 mm Xience KINGSLEY - Medical therapy for mild to moderate disease of LAD and ramus POCT glucose meter Result Date: 03/16/2024 Performed by: [facility], [address] [place] [address] [id number] CLIA ID: [id number] POCT glucose meter Result Date: 03/15/2024 Performed by: [facility], [address] [place] [id number] CLIA ID: [id number] XR chest 1 view Result Date: 03/15/2024 Patient Name: NEIL WELLINGTON : 1970 Exam Date/Time: 03/15/2024 20:23 Procedure: XR CHEST 1 VIEW Ordering Provider: ORTIZ JOSEPH Reason For Exam: Shortness of breath PORTABLE CHEST: INDICATION: Shortness of breath COMPARISON: No previous studies are available for comparison. Obtained at 2020 hours. A single portable AP radiograph of the chest was obtained. The heart is borderline in size. The mediastinal silhouette is normal. There is mild vascular congestion. No effusions or acute infiltrates. There is no pleural thickening. The osseous structures are unremarkable. Mild vascular congestion. Report Dictated on Electronically Signed By: Jordan Davies DO Electronically Signed Date/Time: 03/15/2024 10:47 PM EDT ECG 12 lead Sinus rhythm Probable left atrial enlargement Abnormal T, consider ischemia, lateral leads ST elevation, consider inferior injury History/Other: Past Medical History: History reviewed. No pertinent past medical history. Past Surgical History: Past Surgical History: Procedure Laterality Date CARDIAC CATHETERIZATION N/A 03/16/2024 Performed by Maximo Max MD at [facility] Cardiac Cath/EP Lab CARDIAC CATHETERIZATION N/A 03/16/2024 Performed by Maximo Max MD at [facility] Cardiac Cath/EP Lab CARDIAC CATHETERIZATION N/A 03/16/2024 Performed by Maximo Max MD at [facility] Cardiac Cath/EP Lab Allergy(ies): No Known Allergies Family History: No family history on file. Social History: Social History Tobacco Use Smoking status: Unknown Portions of the information within this encounter were entered using an electronic dictation system. Best attempts were made to edit/proofread the information prior to note completion. Despite the review of information, some errors may remain. If there are questions related to the information contained within the note please contact the signing physician directly. I spent 15 minutes with the pt which involved coordination of care, medical evaluation, review of records, and/or counseling of the pt regarding his/her condition/disease state/prognosis on the date of this note. Associated attestation - Jazmine Caal MD - 03/20/2024 5:42 PM EDT I performed a history and physical examination of the patient. I have reviewed the patient's chart including pertinent history, medications, labs, radiology, and other reports. I reviewed the resident/AMINTA's note, agree with the documented findings and plan of care (with modifications noted if any), and discussed the management plan. Pt was in bed. More awake and conversant today. She states she has poor vision. Some aphasia. BG elevated but improved to 165 before dinner. Patient did not receive Humalog dose for dinner last night and BG spiked to 312 this morning. Patient also had crackers last night. Patient continues to refuse pharmacotherapy for depression. MRI showed acute strokes in the left posterior temporal and occipital lobes as well as bilateral cerebellar hemispheres and right bhavani. Neurology following. Patient has refused diabetes education twice. She states that her family would like her to move to [facility] where they can help her. Adult diet Regular; 4 carb choices (60 gm/meal); Low Fat/Low Chol/High Fiber/2 gm Na Estimated Creatinine Clearance: 77.5 mL/min (by C-G formula based on SCr of 0.9 mg/dL). BP 138/95 (BP Location: Left arm, Patient Position: Sitting) Pulse 95 Temp 36.2 C (97.2 F) (Temporal) Resp 18 Ht 5' 2" (1.575 m) Wt 203 lb 14.8 oz (92.5 kg) SpO2 99% BMI 37.30 kg/m Obese, awake, alert, not in distress, RRR, abdomen soft, nontender, no open skin lesions, no edema, no focal deficits, poor vision, mild expressive aphasia, flat affect. Dx: Type 2 DM with complications, uncontrolled, on long-term insulin Type 2 DM with hyperglycemia CAD/NSTEMI s/p PCI Acute strokes Depression Poor compliance with therapy Tobacco abuse Vision impairment Psoriatic arthritis Plan: -pt with poorly controlled DM due to poor compliance -will continue Lantus 26 and Humalog 12 units TID + mod dose SS -- d/w RN -Will start Humalog 4 units with bedtime snack -closely monitor BG; adjust doses as necessary -management of hypoglycemia per protocol -counseled pt on DM management -carb controlled diet -will benefit from DSME -- however, pt has refused multiple times; we can attempt again in the future -Since patient may not be able to comply with insulin regimen, she can resume home regimen on discharge from rehab -pt declined tx for ongoing depression -Neuro following for stroke -tobacco cessation -Noted plan for discharge to [facility] Anticipated homegoing regimen: Lantus/Humalog at [facility]; switch to Trulicity, metformin, and Jardiance on DC to home; possible insulin?; will resume liset CGM FU with Endocrinology outpatient. Total time 35 minutes which include review of records, counseling, management, and coordination of care as documented in note. Images from the original note were not included. [facility] PROGRESS NOTE Patient Name: Neil Wellington : 1970 Subjective: Interval History: MRIs resulted. No acute events noted by night team. When seen today patient with no complaints. Denying chest pain, sob, fevers, chills. A&O only to person today. Not in distress. Review of Systems: Review of Systems Constitutional: Negative for chills, fatigue and fever. Respiratory: Negative for cough and shortness of breath. Cardiovascular: Negative for chest pain and palpitations. Gastrointestinal: Negative for abdominal distention, abdominal pain, diarrhea, nausea and vomiting. Genitourinary: Negative for difficulty urinating. Psychiatric/Behavioral: Positive for confusion. Inpatient Medications: Scheduled Meds:aspirin, 81 mg, Oral, Daily carvedilol, 6.25 mg, Oral, BID WC enoxaparin, 40 mg, SubCUTAneous, Daily insulin glargine, 26 Units, SubCUTAneous, Nightly insulin lispro, 0-12 Units, SubCUTAneous, TID WC insulin lispro, 12 Units, SubCUTAneous, TID WC losartan, 50 mg, Oral, Daily rosuvastatin, 40 mg, Oral, Nightly ticagrelor, 90 mg, Oral, BID Continuous Infusions: PRN Meds used in the last 24hr: None Objective: Physical Examination: BP 149/69 (BP Location: Left arm, Patient Position: Sitting) Pulse 94 Temp 36.3 C (97.3 F) (Temporal) Resp 20 Ht 5' 2" (1.575 m) Wt 203 lb 14.8 oz (92.5 kg) SpO2 98% BMI 37.30 kg/m Intake/Output Summary (Last 24 hours) at 03/20/2024 0704 Last data filed at 03/19/2024 1619 Gross per 24 hour Intake 600 ml Output -- Net 600 ml Physical Exam Vitals reviewed. Constitutional: General: She is not in acute distress. Cardiovascular: Rate and Rhythm: Normal rate and regular rhythm. Pulses: Normal pulses. Heart sounds: Normal heart sounds. No murmur heard. Pulmonary: Effort: Pulmonary effort is normal. No respiratory distress. Breath sounds: Normal breath sounds. No wheezing. Abdominal: General: Abdomen is flat. Bowel sounds are normal. There is no distension. Tenderness: There is no abdominal tenderness. Musculoskeletal: Right lower leg: No edema. Left lower leg: No edema. Skin: General: Skin is warm and dry. Neurological: Mental Status: She is alert. Psychiatric: Comments: A&Ox1 Pertinent Labs: BMP: Lab Results Component Value Date NA 134 (L) 03/20/2024 K 4.1 03/20/2024 CL 103 03/20/2024 CO2 22 03/20/2024 BUN 17 03/20/2024 CREATININE 0.90 03/20/2024 GLUCOSE 312 (H) 03/20/2024 CALCIUM 9.2 03/20/2024 MG 1.8 03/20/2024 PHOS 4.1 03/20/2024 CBC: Lab Results Component Value Date WBC 12.3 (H) 03/20/2024 HGB 13.6 03/20/2024 HCT 41.0 03/20/2024 MCV 86.1 03/20/2024 PLT 207 03/20/2024 Cardiac profile: TROPONIN I Date Value Ref Range Status 03/16/2024 37.400 (HH) <0.034 ng/mL Final 03/16/2024 41.600 (HH) <0.034 ng/mL Final 03/15/2024 32.700 (HH) <0.034 ng/mL Final Coagulation: No results found for: "INR", "PTT" Lipid panel: Lab Results Component Value Date CHOL 173 03/16/2024 HDL 39 (L) 03/16/2024 TRIG 150 (H) 03/16/2024 Other: Lab Results Component Value Date HGBA1C 13.3 (H) 03/16/2024 TSH 1.923 03/16/2024 Chest Imaging: CXR: === 03/15/24 === XR ABDOMEN 1 VIEW - Impression - No findings that preclude MR imaging. Report Dictated on Electronically Signed By: Emelia Galeana MD Electronically Signed Date/Time: 03/19/2024 11:52 AM EDT Cardiac Studies: Telemetry findings reviewed: yes ECG: Encounter Date: 03/15/24 ECG 12 lead Result Value Heart Rate 85 QRSD Interval 90 QT Interval 410 QTC Interval 487 P [place] -44 QRS [place] 154 T Wave [place] 96 [place] Interval 150 Impression Sinus rhythm Right axis deviation Abnormal T, consider ischemia, lateral leads Electronically Signed On 03-18-2024 17:22:31 EDT by Justine Connolly Echo: 03/15/24 TRANSTHORACIC ECHOCARDIOGRAM (TTE) COMPLETE (CONTRAST/BUBBLE/3D PRN) 03/17/2024 12:46 PM (Final) Interpretation Summary Left Ventricle: Left ventricle size is normal. Mildly increased wall thickness. Normal left ventricular systolic function. EF by 2D Simpsons Biplane is 65%. See diagram for wall motion findings. Right Ventricle: Right ventricle size is normal. Normal systolic function. Mitral Valve: Not well visualized. Valve structure is normal. Moderate (2+) regurgitation. Left Atrium: Left atrium is mildly dilated. Left atrium size is mildly increased (LA volume index 35-41 mL/m2).LA Vol Index is 39 ml/m2. Signed by: Shine Almendarez MD on 03/17/2024 12:46 PM Cath Report: 03/15/24 CARDIAC PROCEDURE 03/17/2024 3:19 PM (Final) Conclusion - Successful IVUS guided PCI of ostial to mid circumflex artery with deployment of 3.0 mm x 48 mm Synergy KINGSLEY (culprit lesion) - Successful IVUS guided PCI of ostial RCA with deployment of 4.0 mm x 12 mm Xience KINGSLEY - Medical therapy for mild to moderate disease of LAD and ramus as well as ostial LMT disease Signed by: Maximo Max MD on 03/17/2024 3:19 PM Assessment/Plan NSTEMI - Presented to [facility] ED with substernal chest pain that started on 03/13/24 - Initially placed on nitroglycerin gtt which resolved - Transferred from [facility] on 03/15/24 for concern of high-risk PCI and CABG evaluation - EKG NSR with high lateral T wave inversions and no ST depression - Troponin 32.7 ==> 41.6 ==> 37.4 - proBNP elevated to 3,160 C (03/16/24) - KINGSLEY to ostial-mid Lcx (85% stenosis) and ostial RCA (80% stenosis), and mild - moderate disease of LAD and ramus - Continue ASA 81 mg daily - Continue Brilinta 90 mg BID daily - Continue Losartan 50 mg daily - Continue Coreg 6.25 mg BID daily - PT/OT - PT recommending IP Rehab - Encourage ambulation HTN BP normotensive to mildly hypertensive this morning - Continue Losartan 50 mg daily - Continue Coreg 6.25 mg BID daily HLD - Continue Crestor 40 mg nighty Vasogenic Edema Suspected embolic stroke A&O x 1; rest of Neuro exam unremarkable NIH score of 1 - Neurology consulted; appreciate recs - MRA imaging ordered; FINDINGS: Diffusion-weighted imaging shows an acute infarct in the posterior temporal and occipital lobes on the left measuring 2.6 x 6.2 cm. In addition, there are several tiny posterior fossa acute infarcts involving bilateral cerebellar hemispheres and right side of bhavani. Chronic right occipital infarct. There are patchy and confluent areas of T2 bright signal in the periventricular and subcortical white matter, which are nonspecific, but may relate to chronic small vessel ischemic changes. Major intracranial flow voids are visualized. Ventricular system is normal for age. On gradient echo T2-weighted imaging, there are multiple foci of very low signal which may represent remote areas of remote hemorrhage. - Consult Speech therapy - Consult OT for visual rehab - Fall precautions - Continue Tele Suspected VALENTIN - Will need referral to Sleep Medicine outpatient for sleep study Delirium Likely in setting of current hospitalization but unaware of baseline - Psychiatry consulted; appreciate recs HFrEF (EF on 03/15/24) Euvolemic on exam TTE (03/17/24) - EF 65%, mildly increased wall thickness and moderate (2+) regurgitation - Continue Losartan 50 mg daily - Continue Coreg 6.25 mg BID daily - Consider starting Farxiga 10 mg daily in outpatient setting given history of T2DM T2DM Ha1c 13.3% (03/16/24) Non-compliant with home regimen (Metformin 500 mg BID daily, Jardiance 10 mg daily, Trulicity 3 mg once weekly) - Endocrinology following - Continue Lantus 24 units nightly - Continue Humalog 10 units TID with meals - MDSSI with meals Suspected COPD Tobacco Use - Consider obtaining PFTs outpatient - Encouraged smoking cessation; patient not ready to quit - Goals of Care: Full Code - DVT Prophylaxis: lovenox - GI Prophylaxis: Protonix daily - Diet: NPO - BMI Classification: Body mass index is 37.3 kg/m . - Disposition: Transfer to [facility] / Telemetry. Associated attestation - Justine Godwin MD - 03/20/2024 4:25 PM EDT I, Dr. Justine Godwin, saw and evaluated the patient on 03/20/2024. I personally obtained the nino and critical portions of the history and physical exam. I reviewed the medical record including labs, imaging studies, and notes. I discussed the patient with the medical advisor, and I agree with the resident's medical decision making. 53 y.o. female with uncontrolled diabetes mellitus type 2 (A1c 13.3%), hyperlipidemia, hypertension transferred from [facility] for non-STEMI and evidence of multivessel coronary disease by cardiac cath. Successful staged PCI of ostial RCA and ostial/proximal circumflex with 2 separate KINGSLEY, with medical management of LAD disease. EF preserved. Postprocedural course complicated by altered mental status CT and MRI showing evidence of acute left posterior temporal and occipital stroke with old right occipital stroke. No focal neurologic deficits at this point. Labs stable with normal kidney function and blood counts. No arrhythmias at any point on telemetry. Patient remains without acute complaints, but is not very conversational. Acute rehab advised given recent stroke, and patient has verbally agreed. No anginal symptoms. Impression/Plan: Non-STEMI, type 1, in the setting of multivessel coronary disease. Successful circumflex and RCA PCI. continue DAPT with aspirin and Brilinta, beta-nando, high intensity statin Mild ischemic cardiomyopathy with inferior/posterior hypokinesis but preserved EF. No heart failure. Continue beta-nando and ARB. Uncontrolled diabetes mellitus type 2--appreciate endocrinology input. Continue insulin. Needs close long-term management. Small stroke noted by CT head with associated altered mental status, but no acute focal deficits. No intracranial bleed. Appreciate neurology management. For now, continue antiplatelet therapy. No convincing evidence for oral anticoagulant. Transferring to floor for further PT/OT assessment, and acute rehab placement Justine Godwin MD Images from the original note were not included. Speech-Language Pathology SPEECH LANGUAGE PATHOLOGY [facility] Speech Language Evaluation Patient Name: Neil Wellington Evaluation Date: 03/19/2024 Date of : 1970 Admission Date: 03/15/2024 7:36 PM Age: 53 y.o. Room/Bed: [facility] A Subjective Patient alert and cooperative. Seen upright in bed. No visitors at bedside. Spoke with RN Jessica who cleared pt to be evaluated. Past Medical History: History reviewed. No pertinent past medical history. Past Surgical History: Past Surgical History: Procedure Laterality Date CARDIAC CATHETERIZATION N/A 03/16/2024 Performed by Maximo Max MD at [facility] Cardiac Cath/EP Lab CARDIAC CATHETERIZATION N/A 03/16/2024 Performed by Maximo Max MD at [facility] Cardiac Cath/EP Lab CARDIAC CATHETERIZATION N/A 03/16/2024 Performed by Maximo Max MD at [facility] Cardiac Cath/EP Lab Admission Diagnosis: Patient Active Problem List Diagnosis Date Noted S/P coronary artery stent placement 03/18/2024 Altered mental status, unspecified 03/18/2024 Lacunar cerebrovascular accident (CVA) ([facility]) 03/18/2024 Uncontrolled type 2 diabetes mellitus with hyperglycemia ([facility]) 03/18/2024 NSTEMI (non-ST elevated myocardial infarction) ([facility]) 03/15/2024 Psoriatic arthritis ([facility]) 11/30/2022 Chronic systolic (congestive) heart failure ([facility]) 11/30/2022 Type 2 diabetes mellitus without complication, without long-term current use of insulin ([facility]) ([facility]) 08/17/2022 Cornea ulcer 12/30/2016 SHAN III (cervical intraepithelial neoplasia grade III) with severe dysplasia 07/10/2015 ASCUS with positive high risk HPV cervical 01/29/2014 CT/MRI Results: CT head wo IV contrast 03/18/2024 Impression Hypoattenuation in the white matter of left parieto-occipital temporal region suggesting vasogenic edema. There may be a small component of transcortical hypoattenuation anteriorly in the left temporal lobe. Findings are nonspecific and could be due to an acute/subacute infarct though the degree of vasogenic edema could also raise possibility of other etiologies such as neoplasm if in the appropriate clinical setting. Suspect acute to subacute lacunar infarct of the left caudate body and into the anterior limb internal capsule and left lentiform nucleus. Suggest neurology consult and further evaluation with MRI without and with contrast. CRITICAL TEST RESULT COMMUNICATION: Notification of these findings was made to JUSTINE GODWIN via phone call on 03/18/2024 12:24 PM EDT. Report Dictated on Electronically Signed By: Bartolo Bateman MD Electronically Signed Date/Time: 03/18/2024 12:26 PM EDT History of Present Illness: [facility] Complaint: Chest pain History of Present Illness: Neil Wellington is a 53 y.o. female with significant past medical history of HFrEF (LVEF 40% on TTE 03/15/24), uncontrolled type II diabetes mellitus, hypertension, hyperlipidemia, CKD stage III, suspected COPD, chronic tobacco abuse, and obesity who presented to [facility] 03/15/[address] [facility] as a transfer for CAD management/CABG evaluation. HOSPITAL COURSE : The patient is a 53 y.o. female with PMH HFrEF (LVEF 40% on TTE 03/15/24), uncontrolled type II diabetes mellitus, hypertension, hyperlipidemia, CKD stage III, suspected COPD, chronic tobacco abuse, and obesity that was admitted to the hospital on 03/15/2024 7:36 PM for CAD management/CABG evaluation following presentation to [facility] ED with substernal chest pain that started 03/13. LHC 03/16 with KINGSLEY to ostial-mid LCX and ostial RCA. Started on aspirin and brilinta. Altered mental status 03/17 with NIH 0. Endo seeing for controlled DM. Psych saw for concern of apathy. Continued AMS with CT head 03/18 showing concern for strokes. Stroke service consulted. 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 MRI pending at time of transfer. Patient Complaint: No Patient complaints during evaluation Pain: Patient did not describe any pain during evaluation PPE Worn: gloves Social Support: Boyfriend, reportedly has people come check on her. Community resources: Friends, boyfriend Social Roles/Occupation: unemployed and disability Education Level: Some High School Per patient, Patient completed up to sophomore year of high school Objective Oral Motor Mechanism: Adequate structure, strength, and ROM in lingual, labial, and buccal musculature. No dentition. Auditory Comprehension: Object Identification: 100% Body Parts: 100% Following 1-step commands: 100% Following 2-step commands: 100% Following 3-step commands: 0% Answering Yes/No Questions: Simple: 100% Summary: Pt presents with within functional limits impairment in auditory comprehension. Impairment limited to load capacity following three-step commands Verbal Expression: Automatic Speech Tasks: Counting 1 - 10: Initiated w/ cue then 100% Days of Week: 100%, with cues for initiation Months of Year: 0% with cues Confrontation Namin% although 100% with initial phoneme cues Function of Object: 100% Responsive Namin% independently, with initial phoneme cue, 100% Divergent Namin% Patient was required to generate 5 category members and was only able to generate 1 member per category Verbal Explanation: 100% although lacking content words Synonyms 25% Antonyms: 100% Fluency: Pt demonstrated fluent sentences in conversational speech and could state her wants and needs independently. Fluency in sentence production and spontaneous conversation improved as session went on Summary: Pt presents with moderate impairment in verbal expression, characterized by anomia. Concomitant Factors: Other RN reported visual changes and unknown intellectual limitations Impact on Functioning: Activity Limitations and Restrictions: General tasks and demands: moderate Interpersonal interactions: moderate Employment: severe Assessment/Plan IMPRESSION: The patient presents with functional auditory comprehension for limited complexity of information. Patient also demonstrates moderate verbal expression difficulties characterized by anomia/word finding difficulty. Pt would benefit from skilled acute [employer]OVER services to address word finding difficulties and further assess reading and writing. Frequency: 3 days/wk for 2 weeks Barriers: Impaired vision and unknown baseline intellectual ability Prognosis: good D/C Recommendations: to be determined Education Given: role of therapy Given To: patient and RN Response: verbalizes understanding Goals Patient Stated Goal: Patient unable to participate in goal setting at this time. 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 Start: 03/19/24 Expected End: 04/02/24 Therapy Time [employer] DECK REMOVER Individual Minutes Time In: 1450 Time Out: 1520 Minutes: 30 Heraclio Wagoner - Speech therapy student [facility] CCU TRANSFER NOTE Name: Neil Wellington : 1970 Admit Date: 03/15/2024 Transfer Date: 03/19/2024 HOSPITAL COURSE : The patient is a 53 y.o. female with PMH HFrEF (LVEF 40% on TTE 03/15/24), uncontrolled type II diabetes mellitus, hypertension, hyperlipidemia, CKD stage III, suspected COPD, chronic tobacco abuse, and obesity that was admitted to the hospital on 03/15/2024 7:36 PM for CAD management/CABG evaluation following presentation to [facility] with substernal chest pain that started 03/13. LHC 03/16 with KINGSLEY to ostial-mid LCX and ostial RCA. Started on aspirin and brilinta. Altered mental status 03/17 with NIH 0. Endo seeing for controlled DM. Psych saw for concern of apathy. Continued AMS with CT head 03/18 showing concern for strokes. Stroke service consulted. 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 MRI pending at time of transfer. CARDIAC STUDIES: Echo (TTE): 03/17 Left Ventricle: Left ventricle size is normal. Mildly increased wall thickness. Normal left ventricular systolic function. EF by 2D Simpsons Biplane is 65%. See diagram for wall motion findings. Right Ventricle: Right ventricle size is normal. Normal systolic function. Mitral Valve: Not well visualized. Valve structure is normal. Moderate (2+) regurgitation. Left Atrium: Left atrium is mildly dilated. Left atrium size is mildly increased (LA volume index 35-41 mL/m2).LA Vol Index is 39 ml/m2. Cardiac Cath (c): 03/17 - Successful IVUS guided PCI of ostial to mid circumflex artery with deployment of 3.0 mm x 48 mm Synergy KINGSLEY (culprit lesion) - Successful IVUS guided PCI of ostial RCA with deployment of 4.0 mm x 12 mm Xience KINGSLEY - Medical therapy for mild to moderate disease of LAD and ramus as well as ostial LMT disease CARDIAC MEDICATIONS: ASA: ASA 81mg QD P2Y12: Brilinta 90mg BID Statin: Crestor 40mg QHS JAQUELINE/ARB: Losartan 50mg QD B-Nando: Coreg 6.25 mg BID Diuresis: Not needed Anticoagulation: SCDs Other: - Goals of Care: Full Code - DVT Prophylaxis: Lovenox 40 q24hr - CrCl >30 - GI Prophylaxis: Not Indicated - Diet: General and Cardiac carb control Accepting Physician: Transfer d/w Dr. Milad Cristobal - transfer to [facility] Team A Department of Psychiatry Consult Service Resident Consult Follow-Up Note CHIEF COMPLAINT: depression SUBJECTIVE: Patient seen and examined at bedside. She reports feeling better today. Still having difficulty with with word finding. Was able to have a phone call with her boyfriend who is incarcerated. Denies thoughts of suicide. Denies homicidal ideation, auditory hallucinations, and visual hallucinations. She is discharge focused. Discussed initiating an antidepressant again today. Discussed the potential adverse effects for sertraline as well as the potential benefits. She declined initiating the medicine today. CURRENT MEDICATIONS: Current Facility-Administered Medications Medication Dose Route Frequency Provider Last Rate Last Admin acetaminophen (Tylenol) tablet 650 mg 650 mg Oral q4h PRN Vinuth Koduru, DO 650 mg at 03/17/242046 Or Acetaminophen (Tylenol) 650 MG/20.3ML solution 650 mg 650 mg Oral q4h PRN Vinuth Koduru, DO Or acetaminophen (Tylenol) suppository 650 mg 650 mg Rectal q4h PRN Vinuth Koduru, DO ALPRAZolam (Xanax) tablet 0.5 mg 0.5 mg Oral Once PRN Lucrecia Smallwood, DO aspirin EC tablet 81 mg 81 mg Oral Daily Soumajit Anthony, DO 81 mg at 03/19/24 0943 carvedilol (Coreg) tablet 6.25 mg 6.25 mg Oral BID Deric Farooq, DO 6.25 mg at 03/19/24 0943 dextrose 5 % infusion 100 mL/hr IntraVENous PRN Souadint Anthony, DO dextrose 50 % solution 12.5 g 12.5 g IntraVENous PRN Christiana Moredu, DO enoxaparin (Lovenox) syringe 40 mg 40 mg SubCUTAneous Daily Marah Daren, DO 40 mg at 03/19/24 0943 glucagon (human recombinant) injection 1 mg 1 mg IntraMUSCular PRN Christiana Moredu, DO glucose oral gel 15 g 15 g Oral PRN Christiana Moredu, DO insulin glargine (Lantus) injection 24 Units 24 Units SubCUTAneous Nightly Yaz Eddy, POISER - ELECTRICAL CAD DESIGNER 24 Units at 03/18/24 2019 Insulin Lispro (Humalog) injection 0-12 Units 0-12 Units SubCUTAneous TID Jazmine Caal MD 6 Units at 03/19/24 124 Insulin Lispro (Humalog) injection 10 Units 10 Units SubCUTAneous TID Jazmine Caal MD 10 Units at 03/19/24 124 ipratropium-albuterol (Duo-Neb) 0.5-2.5 mg/3 mL nebulizer solution 3 mL 3 mL Nebulization TID PRN Souadint Anthony, DO losartan (Cozaar) tablet 50 mg [address] [facility] Daren, DO 50 mg at 03/19/24 0943 naloxone (Narcan) injection 0.4 mg 0.4 mg IntraVENous q5 min PRN Souelvie Moredu, DO nitroglycerin (Nitrostat) SL tablet 0.4 mg 0.4 mg SubLINGual q5 min PRN Souadint Anthony, DO ondansetron ODT (Zofran-ODT) disintegrating tablet 4 mg 4 mg Oral q8h PRN Soumajit Anthony, DO Or ondansetron (Zofran) injection 4 mg 4 mg IntraVENous q6h PRN Soumacarolynnt Anthony, DO rosuvastatin (Crestor) tablet 40 mg 40 mg Oral Nightly Soumajit Anthony, DO 40 mg at 03/18/242019 sodium chloride 0.9 % infusion 5-250 mL/hr IntraVENous PRN Soumajit Anthony, DO ticagrelor (Brilinta) tablet 90 mg 90 mg Oral BID Bhavana Brink MD 90 mg at 03/19/24 0942 PSYCHIATRIC EXAMINATION: Vitals: Vitals: 03/19/24 1200 BP: 114/59 Pulse: 75 Resp: Temp: SpO2: (!) 88% Physical Examination: Constitutional: well developed, ill appearing, but non-toxic, alert, and obese Musculoskeletal: gait Not examined Mental Status Examination: Appearance: moderately kept, appears slightly older than stated age Attitude toward examiner: Difficult to engage. and Poor eye contact. Behavior/motor: No psychomotor agitation or retardation, no tremor or other abnormal movements. Speech: Regular rate, rhythm, volume and articulation Mood: "Fine" Affect: Dysphoric, constricted but reactive Thought process: Linear, goal directed Thought content: Mood congruent Thought perception: No perceptual abnormalities noted Suicidal ideation:Denies Homicidal ideation: Denies Cognition: oriented to person Memory: Not formally tested Insight: fair Judgment: fair DATA REVIEWED: Encounter Date: 03/15/24 ECG 12 lead Result Value Heart Rate 85 QRSD Interval 90 QT Interval 410 QTC Interval 487 P [place] -44 QRS [place] 154 T Wave [place] 96 [place] Interval 150 Impression Sinus rhythm Right axis deviation Abnormal T, consider ischemia, lateral leads Electronically Signed On 03-18-2024 17:22:31 EDT by Justine Connolly Labs: Recent Results (from the past 24 hour(s)) POCT glucose meter Collection Time: 03/18/24 1:14 PM Result Value Ref Range Glucose 214 (H) 70 - 100 mg/dL POCT glucose meter Collection Time: 03/18/24 5:22 PM Result Value Ref Range Glucose 178 (H) 70 - 100 mg/dL CBC auto differential Collection Time: 03/19/24 12:35 AM Result Value Ref Range Auto WBC 14.0 (H) 3.6 - 10.7 10*3/uL RBC 4.81 3.80 - 5.20 10*6/uL Hemoglobin 13.8 11.7 - 16.0 g/dL Hematocrit 41.7 35.0 - 47.0 % MCV 86.7 77.0 - 99.0 fL MCH 28.7 26.0 - 34.0 pg MCHC 33.1 30.5 - 36.0 % RDW 13.5 11.5 - 15.0 % Platelets 191 140 - 440 10*3/uL MPV 13.2 (H) 9.0 - 12.7 fL nRBC 0.0 0.0 - 2.0 /100 WBCs Neutrophils Relative 65.3 38.0 - 82.0 % Lymphocytes Relative 22.4 15.0 - 45.0 % Monocytes Relative 9.5 5.0 - 13.0 % Eosinophils Relative 1.9 0.0 - 6.0 % Basophils Relative 0.3 0.0 - 2.0 % Immature Grans % 0.6 0.0 - 2.0 % Neutrophils Absolute 9.2 (H) 1.8 - 7.5 10*3/uL Lymphocytes Absolute 3.1 1.0 - 4.3 10*3/uL Monocytes Absolute 1.3 (H) 0.0 - 0.9 10*3/uL Eosinophils Absolute 0.3 0.0 - 0.5 10*3/uL Basophils Absolute 0.0 0.0 - 0.2 10*3/uL Immature Grans Absolute 0.1 (H) <0.1 10*3/uL IPF 12 Comprehensive metabolic panel Collection Time: 03/19/24 12:35 AM Result Value Ref Range SODIUM 136 135 - 145 mmol/L POTASSIUM 4.2 3.5 - 5.1 mmol/L CHLORIDE 106 98 - 107 mmol/L CARBON DIOXIDE 22 22 - 30 mmol/L ANION GAP 8 3 - 13 mmol/L UREA NITROGEN 18 (H) 7 - 17 mg/dL CREATININE 0.95 0.52 - 1.04 mg/dL GLUCOSE 209 (H) 70 - 100 mg/dL CALCIUM 9.0 8.4 - 10.4 mg/dL AST (SGOT) 43 15 - 46 U/L ALT 25 0 - 34 U/L ALKALINE PHOSPHATASE 111 38 - 126 U/L ALBUMIN 3.7 3.5 - 5.0 g/dL BILIRUBIN, TOTAL 0.6 0.2 - 1.3 mg/dL TOTAL PROTEIN 7.4 6.3 - 8.2 g/dL eGFR 72.2 >60.0 mL/min/1.73m*2 Magnesium Collection Time: 03/19/24 12:35 AM Result Value Ref Range MAGNESIUM 2.0 1.6 - 2.3 mg/dL Phosphorus Collection Time: 03/19/24 12:35 AM Result Value Ref Range PHOSPHORUS 3.5 2.5 - 4.5 mg/dL POCT glucose meter Collection Time: 03/19/24 8:52 AM Result Value Ref Range Glucose 186 (H) 70 - 100 mg/dL POCT glucose meter Collection Time: 03/19/24 12:42 PM Result Value Ref Range Glucose 266 (H) 70 - 100 mg/dL ASSESSMENT: Patient is a 53-year-old female with a past medical history significant for T2DM, HLD, CAD, HTN, arthritis, tobacco use, and depression who is presenting to the hospital status post PCI. Psychiatry was consulted for evaluation of depression. Still appears overtly dysphoric on exam. Also declined starting sertraline. Inpatient psychiatric hospitalization not presently indicated given that she is not displaying a high risk for suicide. Diagnostic Impression: Unspecified mood disorder R/O Major depressive disorder, recurrent episode, moderate vs Persistent depressive disorder RECOMMENDATIONS: Inpatient psychiatric hospitalization not presently indicated Medications: Declined starting an antidepressant at this time Labs: None to be ordered by psychiatry Studies: None to be ordered by psychiatry Delirium precautions: Avoid sedating/anticholinergic medications, encourage sleep hygiene, minimize barriers to nutrition, optimize sensory input and access to assistive devices (dentures, glasses, etc) where indicated, encourage time up in chair as able, D/c Saenz, restraints, IV lines, as able and reserve agitation PRNs for instances where patient is danger to self/others/treatment. Recommendations shared with primary team. Follow up: Will follow as able Pt seen and discussed with attending psychiatrist, Dr. Bartlett, who agrees with above recommendations. Associated attestation - Ole Bartlett MD - 03/20/2024 2:50 PM EDT I saw and evaluated the patient, participating in the nino portions of the service. I reviewed the resident s note. I agree with the resident s findings and plan. Ole Bartlett MD Images from the original note were not included. PHYSICAL THERAPY [facility] Initial Evaluation Name/MRN: Neil Wellington ([id number]) Evaluation Date: 03/19/2024 Date of : 1970 Admission Date: 03/15/2024 7:36 PM Age: 53 y.o. Room/Bed: T1-111/T1-111 A Discharge Recommendation: IP Rehab Equipment Needed: No Assessment IMPRESSION: Neil Wellington was admitted on 03.15.24 with NSTEMI. She has also had a ?? Stroke leaving her right side weaker than her left. She has right UE weakness, right homonymous hemianopsia, is slow to answer questions, and does not have the answer to some of the questions. She has decreased safety, decreased vision on right, and is disoriented to place, situation and time. Recommend IP REHAB upon discharge. Diagnosis: NSTEMI, ??stroke affecting her right side. Prognosis: good Performance Deficits /Impairments: Decreased Functional Mobility, Decreased ADL status, Decreased ROM, Decreased Strength, Decreased Safety Awareness, Decreased Endurance, Decreased Balance, Decreased High Level IADLs, Decreased Coordination, and Decreased Posture Decision Making: Medium Complexity Subjective Pt was in bed upon arrival. She is lethargic and confused, poor historian, right sided weakness. High fall risk. Chair alarm activated at end of session. Food tray in front of patient , nurse aware. Pain: Pt denies any current pain. Past Medical History: History reviewed. No pertinent past medical history. Past Surgical History: Past Surgical History: Procedure Laterality Date CARDIAC CATHETERIZATION N/A 03/16/2024 Performed by Maximo Max MD at [facility] Cardiac Cath/EP Lab CARDIAC CATHETERIZATION N/A 03/16/2024 Performed by Maximo Max MD at [facility] Cardiac Cath/EP Lab CARDIAC CATHETERIZATION N/A 03/16/2024 Performed by Maximo Max MD at [facility] Cardiac Cath/EP Lab Admission Diagnosis: Patient Active Problem List Diagnosis Date Noted S/P coronary artery stent placement 03/18/2024 Altered mental status, unspecified 03/18/2024 Lacunar cerebrovascular accident (CVA) ([facility]) 03/18/2024 Uncontrolled type 2 diabetes mellitus with hyperglycemia ([facility]) 03/18/2024 NSTEMI (non-ST elevated myocardial infarction) ([facility]) 03/15/2024 Psoriatic arthritis ([facility]) 11/30/2022 Chronic systolic (congestive) heart failure ([facility]) 11/30/2022 Type 2 diabetes mellitus without complication, without long-term current use of insulin ([facility]) ([facility]) 08/17/2022 Cornea ulcer 12/30/2016 SHAN III (cervical intraepithelial neoplasia grade III) with severe dysplasia 07/10/2015 ASCUS with positive high risk HPV cervical 01/29/2014 Medical Precautions: No active isolations Proper PPE donned/doffed in accordance with facility standards. Fall Risk: Llamas Fall Risk Score: 45 (High Risk) Precautions/Restrictions: Lines/Drains/Airways: IV FALL risk Family/Caregiver Present: none Overall Cognitive Status: Slow to answer, slow to move. Overall Orientation Status: Oriented to Person Vision: right sided homonymous hemianopsia Hearing: normal Social/Functional History Patient admitted from home. 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: Yes Prior Level of Function ADL Assistance: Independent Ambulation Assistance: Independent Transfer Assistance: Independent Objective Lower Extremity Assessment AROM: WFL PROM: WFL Strength: WFL Bed Mobility: Supine to sit: Min Assist Rolling to left: Min Assist Scooting: Min Assist Transfers Sit to stand: Min Assist Stand to sit: Min Assist Bed to chair: Min Assist Ambulation Ambulation 1 Assistive device(s) used: bear hug assist Assist level: Mod Assist Distance (ft): 5' Quality of gait: step to pattern, uneven step length, narrow TAMI, slow mely, postural sway Coordination: Impaired: decreased coordination with transfers, bed mobility, and gait Outcome Measures AM-PAC How much HELP from another person do you currently need Turning from your back to your side while in a flat bed without using bedrails?: A Little Moving from lying on your back to sitting on the side of a flat bed without using bedrails?: A Little Moving to and from a bed to a chair (including a wheelchair)?: A Little Standing up from a chair using your arms (wheelchair or bedside chair)?: A Little Walking in a hospital room?: A Little Stair climbing assessed?: No AM-PAC Inpatient Mobility Raw Score (No Stairs) : 15 JH-HLM -HLM Score: Transferred to chair/commode Plan Pt would benefit from skilled acute PT services to address Strengthening, Balance Training, Functional Mobility Training, Endurance Training, Gait Training, Stair Training, and Positioning. Frequency: 3x/week for 2 weeks Barriers: Cognitive deficit, Impulsivity, Limited safety awareness, Limited insight into deficits, Communication deficit, Decreased endurance, Decreased proprioception, Upper extremity weakness, and Impaired vision Safety/Education Safety Safety Devices in place: call light within reach, left in bed, left in chair, chair alarm in place, gait belt, patient at risk for falls, and nurse notified Restraints: No Education Education Given To: patient Education Provided: PT Role, Gait Training, Transfer Training, Low Vision Education, and Discharge Recommendations Education Method: Verbal and Demonstration Barriers to Learning: Cognition, Vision Education Outcome: Continued Education Needed Goals Patient Stated Goal: Patient unable to participate in goal setting at this time. Encounter Problems Encounter Problems (Active) Mobility Patient will ambulate 150 feet with min assist and least restrictive device in order to improve safety and independence with mobility. Start: 03/19/24 Patient will ascend and descend 5 stairs with no assistive device and min assist in order to safely negotiate home. Start: 03/19/24 Pain - Adult Transfers Patient will perform bed mobility with modified independence in order to improve independence and prepare for out of bed mobility. Start: 03/19/24 Patient will complete functional transfer with one hand hold with modified independence in order to prepare for ambulation. Start: 03/19/24 Therapy Time Individual Co-treatment Time In 09 Time Out 0931 Minutes 26 Timed Code Treatment Minutes: 13 Minutes Padmini Davis PT Patient's Physical Therapy Plan of Care supervision is transferred to a [facility] Therapy Services Physical Therapist. Goals and/or treatment plan was established in collaboration with patient/family/other representatives. PROGRESS NOTE. NEUROCRITICAL CARE Patient Name:Neil Wellington Patient : 1970 Acct: [id number] Date of Admission: 03/15/2024 Room/Bed: T1-111/T1-111 A PCP: Luz Mcdermott Patient location ICU Remains in the hospital due to persistent unresolved acute issues, Subjective: New Complain: Patient with no new neurological complaints, refusing to be examined because she complained of being tired Awaiting imaiging Current Facility-Administered Medications: acetaminophen (Tylenol) tablet 650 mg, 650 mg, Oral, q4h PRN, 650 mg at 03/17/242046 OR Acetaminophen (Tylenol) 650 MG/20.3ML solution 650 mg, 650 mg, Oral, q4h PRN OR acetaminophen (Tylenol) suppository 650 mg, 650 mg, Rectal, q4h PRN, Vicki Francis, DO ALPRAZolam (Xanax) tablet 0.5 mg, 0.5 mg, Oral, Once PRN, Lucrecia Smallwood, DO, 0.5 mg at 03/19/24 1720 aspirin EC tablet 81 mg, 81 mg, Oral, Daily, Soumajit Anthony, DO, 81 mg at 03/19/24 0943 carvedilol (Coreg) tablet 6.25 mg, 6.25 mg, Oral, BID , Deric Farooq, DO, 6.25 mg at 03/19/24 1718 dextrose 5 % infusion, 100 mL/hr, IntraVENous, PRN, Soumajit Anthony, DO dextrose 50 % solution 12.5 g, 12.5 g, IntraVENous, PRN, Soumajit Anthony, DO enoxaparin (Lovenox) syringe 40 mg, 40 mg, SubCUTAneous, Daily, Marah Daren, DO, 40 mg at 03/19/24 0943 glucagon (human recombinant) injection 1 mg, 1 mg, IntraMUSCular, PRN, Soumajit Anthony, DO glucose oral gel 15 g, 15 g, Oral, PRN, Soumajit Anthony, DO insulin glargine (Lantus) injection 26 Units, 26 Units, SubCUTAneous, Nightly, Yaz Eddy, POISER - ELECTRICAL CAD DESIGNER, 26 Units at 03/19/242004 Insulin Lispro (Humalog) injection 0-12 Units, 0-12 Units, SubCUTAneous, TID , Jazmine Caal MD, 6 Units at 03/19/24 1246 Insulin Lispro (Humalog) injection 12 Units, 12 Units, SubCUTAneous, TID SHERYL, Yaz Eddy, POISER - ELECTRICAL CAD DESIGNER ipratropium-albuterol (Duo-Neb) 0.5-2.5 mg/3 mL nebulizer solution 3 mL, 3 mL, Nebulization, TID PRN, Soumajit Anthony, DO losartan (Cozaar) tablet 50 mg, 50 mg, Oral, Daily, Marah Daren, DO, 50 mg at 03/19/24 0943 naloxone (Narcan) injection 0.4 mg, 0.4 mg, IntraVENous, q5 min PRN, Soumajit Anthony, DO nitroglycerin (Nitrostat) SL tablet 0.4 mg, 0.4 mg, SubLINGual, q5 min PRN, Soumajit Anthony, DO ondansetron ODT (Zofran-ODT) disintegrating tablet 4 mg, 4 mg, Oral, q8h PRN OR ondansetron (Zofran) injection 4 mg, 4 mg, IntraVENous, q6h PRN, Soumajit Anthony, DO rosuvastatin (Crestor) tablet 40 mg, 40 mg, Oral, Nightly, Soumajit Anthony, DO, 40 mg at 03/19/242004 sodium chloride 0.9 % infusion, 5-250 mL/hr, IntraVENous, PRN, Soumajit Anthony, DO [COMPLETED] ticagrelor (Brilinta) tablet 180 mg, 180 mg, Oral, Once, 180 mg at 03/16/24 1051 FOLLOWED BY ticagrelor (Brilinta) tablet 90 mg, 90 mg, Oral, BID, Bhavana Brink MD, 90 mg at 03/19/242004 Stroke Specific: Lipids: No results for input(s): "CHOL", "TRIG", "HDL", "AMYLASE", "LIPASE" in the last 72 hours. 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 PRINTER MRA extracrnial poor quality but vessels appeared to be open Physical Examination: Patient Vitals for the past 8 hrs: BP Temp Temp src Pulse Resp SpO2 Weight 06/26/24 0555 -- -- -- -- -- -- 92.5 kg (203 lb 14.8 oz) 03/20/24 0400 149/69 36.3 C (97.3 F) Temporal 94 20 98 % -- 03/20/24 0348 -- -- -- 86 -- -- -- 03/20/24 0347 121/74 36.2 C (97.2 F) Temporal 83 18 94 % -- PRIOR NIHSS 5 Neuro Critical Care / stroke Attending Neurological ASSESSMENT / PLAN/RECOMMENDATIONS: Subacute left temporo parietal subcortical infarction suspect embolic however it could also be athero thrombotic , in the setting of cardiac ischemia - Nees outpatient event monitor , - Consider ANNY , as outpatient in the next couple of weeks , OK to be done outpatient since it would not be advisable to place her on triple therapy at this time as she is at risk for hemorrhagic transformation Follow up with neurology in Neuro Critical Care / stroke Attending I personally interviewed and examined this patient , personally completed completed the note for this patient. I reviewed the chart including MAR, labs, neuroimaging, other imaging studies and discussed my diagnostic impression and patient's plan of care with my AMINTA/resident/ Fellow , student and the consulting team and patient's family members/surrogate decision makers (in cases where the patient is incapacitated and unable to participate in their own care). [x] Encounter Face to Face [x] follow up [x] Time spend [x] 35 [x] No longer neurological follow up needed, will sign off, let us know if need for further assistance Personal discussion of test results and plan of care with: Patient treatments and testing options informed consent and plan of care, Admitting Team, ., ., . Thank you Luz Mcdermott for the opportunity to be involved in this patient's care. Department of Internal Medicine Division of Endocrinology, Diabetes, & Metabolism Endocrinology Note Patient Name: Neil Wellington : 1970 AGE: 53 y.o. Room/Bed: T1-111/T1-111 A Admission Date: 03/15/2024 Visit Date: 03/19/2024 Reason for Endocrine Consult: uncontrolled DM Provider/Team Requesting Consult: Cardiology PCP: Luz Mcdermott Outpt Peanut Cleaner: No ASSESSMENT: Uncontrolled DM2 Med noncompliance NSTEMI-stents placed 03/16/24 CKD 3 Depression Tobacco abuse HTN/HLP Poor vision Psoriatic arthritis PLAN: Increase lantus to 26 units HS Increase Humalog 09/05/12 units before meals Continue Humalog low dose SS Psych consult for depression ICU goal <180 GMF goal <150 POCT BG ACHS Hypoglycemia management per protocol Carb controlled diet ANTICIPATED ENDOCRINE HOME GOING RECOMMENDATIONS: Optimized for Discharge from Endocrine standpoint: No Home Going Endocrine Rx Recommendations-- TBD--patient has not taken any medications for more than 1 year Will eval if ok for insulin pens on dc with education team Outpt Follow Up-- PCP SUBJECTIVE/HPI: CHIEF COMPLAINT: No chief complaint on file. Patient presented to [facility] ED with CP radiating down left arm and jaw pain started 03/13/24 Patient transferred from [facility] had there -for NSTEMI--for CABG vs stents--patient declines surgery Had heart cath and stents placed at [facility] 03/16/24 EF improved on ANNY after stents placed ( was 44% at [facility]) Today patient is resting in bed, barely opens eyes Endorses not taking any medications ordered for more than year Reviewed PCP not from care everywhere 07/2023 states depression reason for not taking medications--patient states ahe did npot follow up with PCP at that visit was advised ED for HTN and patient refused--states memory issues at that time--does not look like mediction for depression was discussed Today she says she does not care Reviewed A1c and need for insulin here but we need to discuss plan. Patient just states I don't care several times in trying determine what plan of treatment she is willing to do--discussed with Dr Caal will place psych consult Asked about appetite and what she ate--I don't remember Per nursing ate eggs and hungarian toast for BF Interval events BGL below- elevated Resting in chair VSS RA Still has Flat affect Psych on for depression She is eating ok Had all of bfast Denies late snacks No nv noted Dm ed to help eval her insulin techniques Spoke w nursing team Type of DM: DM2 Onset of DM: age 51 Home DM Medication Regimen: was ordered but not clear if she ever took regularly DM control (last A1c/glucose data): Lab Results Component Value Date HGBA1C 13.3 (H) 03/16/2024 Glucose Date/Time Value Ref Range Status 03/18/2024 05:22 PM 178 (H) 70 - 100 mg/dL Final 03/18/2024 01:14 PM 214 (H) 70 - 100 mg/dL Final 03/18/2024 09:16 AM 242 (H) 70 - 100 mg/dL Final 03/17/2024 08:40 PM 242 (H) 70 - 100 mg/dL Final 03/17/2024 05:42 PM 287 (H) 70 - 100 mg/dL Final 03/17/2024 01:11 PM 369 (H) 70 - 100 mg/dL Final Review of Systems Respiratory: Negative for chest tightness and shortness of breath. Cardiovascular: Negative for chest pain. Endocrine: Positive for polydipsia and polyuria. Skin: Negative for wound. Neurological: Negative for numbness. Psychiatric/Behavioral: Positive for behavioral problems. ROS negative except for those mentioned in HPI. OBJECTIVE: Vitals: 03/19/24 0300 03/19/24 0400 03/19/24 0500 03/19/24 0600 BP: 144/72 145/80 159/87 (!) 152/104 BP Location: Left arm Patient Position: Lying Pulse: 98 102 89 97 Resp: 18 Temp: 36.4 C (97.6 F) TempSrc: Temporal SpO2: 96% 97% 96% 96% Weight: Height: Physical Exam Vitals and nursing note reviewed. Constitutional: General: She is awake. She is not in acute distress. Appearance: She is obese. Cardiovascular: Rate and Rhythm: Normal rate and regular rhythm. Pulses: Normal pulses. Heart sounds: Normal heart sounds. Pulmonary: Breath sounds: Normal breath sounds. Abdominal: General: Bowel sounds are normal. Musculoskeletal: General: No swelling. Normal range of motion. Cervical back: Normal range of motion. Skin: General: Skin is warm and dry. Neurological: Mental Status: She is alert and oriented to person, place, and time. Psychiatric: Attention and Perception: She is inattentive. Mood and Affect: Mood is depressed. Behavior: Behavior is slowed and withdrawn. Comments: 24 hour intake/output: Intake/Output Summary (Last 24 hours) at 03/19/2024 0846 Last data filed at 03/18/2024 1400 Gross per 24 hour Intake 1000 ml Output -- Net 1000 ml Diet: Adult diet Regular; 4 carb choices (60 gm/meal); Low Fat/Low Chol/High Fiber/2 gm Na Medications (as per EMR): HomeMeds: No current outpatient medications Scheduled Meds:aspirin, 81 mg, Oral, Daily carvedilol, 6.25 mg, Oral, BID WC enoxaparin, 40 mg, SubCUTAneous, Daily insulin glargine, 24 Units, SubCUTAneous, Nightly insulin lispro, 0-12 Units, SubCUTAneous, TID WC insulin lispro, 10 Units, SubCUTAneous, TID WC losartan, 50 mg, Oral, Daily rosuvastatin, 40 mg, Oral, Nightly ticagrelor, 90 mg, Oral, BID Continuous Infusions: PRN Meds:PRN medications: acetaminophen OR acetaminophen OR acetaminophen, ALPRAZolam, dextrose, dextrose, glucagon (rDNA), glucose, ipratropium-albuterol, naloxone, nitroglycerin, ondansetron ODT OR ondansetron, sodium chloride Diagnostic Workup: I reviewed pertinent Laboratory results, Radiographic results, and Other Clinical Notes at the time of today's encounter. Labs: No components found for: "LABA1C" No components found for: "EAG" Lab Results Component Value Date NA 136 03/19/2024 K 4.2 03/19/2024 CL 106 03/19/2024 CO2 22 03/19/2024 BUN 18 (H) 03/19/2024 CREATININE 0.95 03/19/2024 GLUCOSE 209 (H) 03/19/2024 CALCIUM 9.0 03/19/2024 Lab Results Component Value Date CHOL 173 03/16/2024 Lab Results Component Value Date TRIG 150 (H) 03/16/2024 Lab Results Component Value Date HDL 39 (L) 03/16/2024 Lab Results Component Value Date LDLCALC 104 (H) 03/16/2024 No results found for: "VLDL" Lab Results Component Value Date CHOLHDLRATIO 4 03/16/2024 No results found for: "[id number]" Lab Results Component Value Date TSH 1.923 03/16/2024 Radiology reportsas per the Radiologist Radiology: POCT glucose meter Result Date: 03/16/2024 Performed by: [facility], [address] [place] [id number] CLIA ID: [id number] POCT glucose meter Result Date: 03/16/2024 Performed by: [facility], [address] [place] [id number] CLIA ID: [id number] POCT ACT Result Date: 03/16/2024 Performed by: [facility], [address] [place] [id number] CLIA ID: [id number] POCT ACT Result Date: 03/16/2024 Performed by: [facility], [address] [place] [id number] CLIA ID: [id number] POCT ACT Result Date: 03/16/2024 Performed by: [facility], [address] [place] [id number] CLIA ID: [id number] ECG 12 lead Sinus rhythm Right axis deviation Abnormal T, consider ischemia, lateral leads ST elevation, consider inferior injury Cardiac procedure Result Date: 03/16/2024 - Successful IVUS guided PCI of ostial to mid circumflex artery with deployment of 3.0 mm x 48 mm Synergy KINGSLEY - Successful IVUS guided PCI of ostial RCA with deployment of 4.0 mm x 12 mm Xience KINGSLEY - Medical therapy for mild to moderate disease of LAD and ramus POCT glucose meter Result Date: 03/16/2024 Performed by: [facility], [address] [place] [id number] CLIA ID: [id number] POCT glucose meter Result Date: 03/15/2024 Performed by: [facility], [address] [place] [id number] CLIA ID: [id number] XR chest 1 view Result Date: 03/15/2024 Patient Name: NEIL WELLINGTON : 1970 Exam Date/Time: 03/15/2024 20:23 Procedure: XR CHEST 1 VIEW Ordering Provider: ORTIZ JOSEPH Reason For Exam: Shortness of breath PORTABLE CHEST: INDICATION: Shortness of breath COMPARISON: No previous studies are available for comparison. Obtained at 2020 hours. A single portable AP radiograph of the chest was obtained. The heart is borderline in size. The mediastinal silhouette is normal. There is mild vascular congestion. No effusions or acute infiltrates. There is no pleural thickening. The osseous structures are unremarkable. Mild vascular congestion. Report Dictated on Electronically Signed By: Jordan Davies DO Electronically Signed Date/Time: 03/15/2024 10:47 PM EDT ECG 12 lead Sinus rhythm Probable left atrial enlargement Abnormal T, consider ischemia, lateral leads ST elevation, consider inferior injury History/Other: Past Medical History: History reviewed. No pertinent past medical history. Past Surgical History: Past Surgical History: Procedure Laterality Date CARDIAC CATHETERIZATION N/A 03/16/2024 Performed by Maximo Max MD at [facility] Cardiac Cath/EP Lab CARDIAC CATHETERIZATION N/A 03/16/2024 Performed by Maximo Max MD at [facility] Cardiac Cath/EP Lab CARDIAC CATHETERIZATION N/A 03/16/2024 Performed by Maximo Max MD at [facility] Cardiac Cath/EP Lab Allergy(ies): No Known Allergies Family History: No family history on file. Social History: Social History Tobacco Use Smoking status: Unknown Portions of the information within this encounter were entered using an electronic dictation system. Best attempts were made to edit/proofread the information prior to note completion. Despite the review of information, some errors may remain. If there are questions related to the information contained within the note please contact the signing physician directly. I spent 15 minutes with the pt which involved coordination of care, medical evaluation, review of records, and/or counseling of the pt regarding his/her condition/disease state/prognosis on the date of this note. Associated attestation - Jazmine Caal MD - 03/19/2024 1:59 PM EDT I performed a history and physical examination of the patient. I have reviewed the patient's chart including pertinent history, medications, labs, radiology, and other reports. I reviewed the resident/AMINTA's note, agree with the documented findings and plan of care (with modifications noted if any), and discussed the management plan. Pt was in bed. Sleepy but arousable. Eating well. BG still elevated but overall improved. Appreciate Psych input; noted pt refused pharmacotherapy. Stroke workup per Neuro. Adult diet Regular; 4 carb choices (60 gm/meal); Low Fat/Low Chol/High Fiber/2 gm Na Estimated Creatinine Clearance: 73.3 mL/min (by C-G formula based on SCr of 0.95 mg/dL). BP 114/59 Pulse 75 Temp 36.1 C (97 F) (Temporal) Resp 18 Ht 5' 2" (1.575 m) Wt 203 lb 7.8 oz (92.3 kg) SpO2 (!) 88% BMI 37.22 kg/m Obese, sleepy, not in distress, RRR, abdomen soft, nontender, no open skin lesions, no edema, no focal deficits, depressed, flat affect. Dx: Type 2 DM with complications, uncontrolled, on long-term insulin Type 2 DM with hyperglycemia CAD/NSTEMI s/p PCI Depression Poor compliance with therapy Tobacco abuse Vision impairment Psoriatic arthritis Plan: -pt with poorly controlled DM due to poor cmpliance, possibly contributed by depression -will increase Lantus to 26 and Humalog to 12 units TID + mod dose SS -closely monitor BG; adjust doses as necessary -management of hypoglycemia per protocol -counseled pt on DM management -carb controlled diet -advised pt regarding importance of compliance -advised to start back on Liset at home -will benefit from DSME -- refused yesterday; will retry today -- will need to evaluate ability to use insulin to determine appropriate homegoing regimen -she will likely need to determine a simple DM regimen for pt due to physical limitations -appreciate Psych eval/mx for ongoing depression -Neuro workup in process -tobacco cessation Anticipated homegoing regimen: possibly resume Trulicity, metformin, Jardiance; possible insulin? FU with Endocrinology outpatient. Total time 20 minutes which include review of records, counseling, management, and coordination of care as documented in note. Images from the original note were not included. [facility] PROGRESS NOTE Patient Name: Neil Wellington : 1970 Subjective: Interval History: - No acute overnight events - Resting in bed comfortably; NAD - Minimally engaged in conversation - Denies chest pain, lightheadedness, palpitations, shortness of breath, nausea, and vomiting - Still A&O x1; oriented to name, not place, month and year Review of Systems: Review of Systems All other systems reviewed and are negative. Inpatient Medications: Scheduled Meds:aspirin, 81 mg, Oral, Daily carvedilol, 6.25 mg, Oral, BID WC insulin glargine, 24 Units, SubCUTAneous, Nightly insulin lispro, 0-12 Units, SubCUTAneous, TID WC insulin lispro, 10 Units, SubCUTAneous, TID WC losartan, 50 mg, Oral, Daily rosuvastatin, 40 mg, Oral, Nightly ticagrelor, 90 mg, Oral, BID Continuous Infusions: none PRN Meds used in the last 24hr: none Objective: Physical Examination: BP (!) 152/104 Pulse 97 Temp 36.4 C (97.6 F) (Temporal) Resp 18 Ht 1.575 m (5' 2") Wt 92.3 kg (203 lb 7.8 oz) SpO2 96% BMI 37.22 kg/m Intake/Output Summary (Last 24 hours) at 03/19/2024 0701 Last data filed at 03/18/2024 1400 Gross per 24 hour Intake 1000 ml Output -- Net 1000 ml Physical Exam Constitutional: Appearance: She is obese. Comments: Appears sluggish; slow to respond Cardiovascular: Rate and Rhythm: Normal rate and regular rhythm. Comments: Radial access site intact Pulmonary: Effort: Pulmonary effort is normal. Abdominal: General: Abdomen is flat. Palpations: Abdomen is soft. Musculoskeletal: Right lower leg: No edema. Left lower leg: No edema. Skin: General: Skin is warm and dry. Neurological: General: No focal deficit present. Mental Status: She is alert. Cranial Nerves: No cranial nerve deficit. Sensory: No sensory deficit. Motor: No weakness. Coordination: Coordination normal. Deep Tendon Reflexes: Reflexes normal. Comments: A&O x 1; oriented to name; not location, month and year Psychiatric: Comments: Flat affect Pertinent Labs: BMP: Lab Results Component Value Date NA 136 03/19/2024 K 4.2 03/19/2024 CL 106 03/19/2024 CO2 22 03/19/2024 BUN 18 (H) 03/19/2024 CREATININE 0.95 03/19/2024 GLUCOSE 209 (H) 03/19/2024 CALCIUM 9.0 03/19/2024 MG 2.0 03/19/2024 PHOS 3.5 03/19/2024 CBC: Lab Results Component Value Date WBC 14.0 (H) 03/19/2024 HGB 13.8 03/19/2024 HCT 41.7 03/19/2024 MCV 86.7 03/19/2024 PLT 191 03/19/2024 Cardiac profile: TROPONIN I Date Value Ref Range Status 03/16/2024 37.400 (HH) <0.034 ng/mL Final 03/16/2024 41.600 (HH) <0.034 ng/mL Final 03/15/2024 32.700 (HH) <0.034 ng/mL Final Coagulation: No results found for: "INR", "PTT" Lipid panel: Lab Results Component Value Date CHOL 173 03/16/2024 HDL 39 (L) 03/16/2024 TRIG 150 (H) 03/16/2024 Other: Lab Results Component Value Date HGBA1C 13.3 (H) 03/16/2024 TSH 1.923 03/16/2024 Chest Imaging: CXR: === 03/15/24 === XR CHEST 1 VIEW - Impression - Mild vascular congestion. Report Dictated on Electronically Signed By: Jordan Davies DO Electronically Signed Date/Time: 03/15/2024 10:47 PM EDT Cardiac Studies: Telemetry findings reviewed: yes ECG: Encounter Date: 03/15/24 ECG 12 lead Result Value Heart Rate 85 QRSD Interval 90 QT Interval 410 QTC Interval 487 P [place] -44 QRS [place] 154 T Wave [place] 96 [place] Interval 150 Impression Sinus rhythm Right axis deviation Abnormal T, consider ischemia, lateral leads Electronically Signed On 03-18-2024 17:22:31 EDT by Justine Connolly Echo: No results found for this or any previous visit. Cath Report: No results found for this or any previous visit. Assessment/Plan NSTEMI - Presented to [facility] with substernal chest pain that started on 03/13/24 - Initially placed on nitroglycerin gtt which resolved - Transferred from [facility] on 03/15/24 for concern of high-risk PCI and CABG evaluation - EKG NSR with high lateral T wave inversions and no ST depression - Troponin 32.7 ==> 41.6 ==> 37.4 - proBNP elevated to 3,160 [facility] (03/16/24) - KINGSLEY to ostial-mid Lcx (85% stenosis) and ostial RCA (80% stenosis), and mild - moderate disease of LAD and ramus - Continue ASA 81 mg daily - Continue Brilinta 90 mg BID daily - Continue Losartan 50 mg daily - Continue Coreg 6.25 mg BID daily - PT/OT - PT recommending IP Rehab - Encourage ambulation HTN BP normotensive to mildly hypertensive this morning - Continue Losartan 50 mg daily - Continue Coreg 6.25 mg BID daily HLD - Continue Crestor 40 mg nighty Vasogenic Edema Suspected embolic stroke A&O x 1; rest of Neuro exam unremarkable NIH score of 1 - Neurology consulted; appreciate recs - MRA imaging ordered; results pending - Xanax 0.5 mg x 1 PRN for anxiety prior to MRA - Consult Speech therapy - Consult OT for visual rehab - Fall precautions - Continue Tele Suspected VALENTIN - Will need referral to Sleep Medicine outpatient for sleep study Delirium Likely in setting of current hospitalization but unaware of baseline - Psychiatry consulted; appreciate recs HFrEF (EF on 03/15/24) Euvolemic on exam TTE (03/17/24) - EF 65%, mildly increased wall thickness and moderate (2+) regurgitation - Continue Losartan 50 mg daily - Continue Coreg 6.25 mg BID daily - Consider starting Farxiga 10 mg daily in outpatient setting given history of T2DM T2DM Ha1c 13.3% (03/16/24) Non-compliant with home regimen (Metformin 500 mg BID daily, Jardiance 10 mg daily, Trulicity 3 mg once weekly) - Endocrinology following - Continue Lantus 24 units nightly - Continue Humalog 10 units TID with meals - MDSSI with meals Suspected COPD Tobacco Use - Consider obtaining PFTs outpatient - Encouraged smoking cessation; patient not ready to quit - Goals of Care: Full Code - DVT Prophylaxis: heparin - GI Prophylaxis: Protonix daily - Diet: NPO - BMI Classification: Body mass index is 37.22 kg/m . - Disposition: Continue to monitor in CCU.; plan for discharge tomorrow if no acute changes Associated attestation - Justine Godwin MD - 03/19/2024 5:21 PM EDT I, Dr. Justine Godwin, saw and evaluated the patient on 03/19/2024. I personally obtained the nino and critical portions of the history and physical exam. I reviewed the medical record including labs, imaging studies, and notes. I discussed the patient with the medical advisor, and I agree with the resident's medical decision making. 53 y.o. female with uncontrolled diabetes mellitus type 2 (A1c 13.3%), hyperlipidemia, hypertension transferred from [facility] for non-STEMI and evidence of multivessel coronary disease by cardiac cath. LAD disease noted to be only mild to moderate, prompting staged PCI of ostial RCA and ostial/proximal circumflex with 2 separate KINGSLEY. EF preserved with mild inferior/posterior hypokinesis. Postprocedural course complicated by altered mental status with CT head showing evidence of small stroke. No focal neurologic deficits. Neuro involved and brain MRI pending. No clinical changes overnight. Patient remains fatigued. Labs stable with creatinine 0.9, normal LFTs, mild leukocytosis. Impression/Plan: Non-STEMI, type 1, in the setting of multivessel coronary disease. Successful circumflex and RCA PCI with plan for medical management of mild to moderate LAD disease--continue DAPT with aspirin and Brilinta, beta-nando, high intensity statin Mild ischemic cardiomyopathy with inferior/posterior hypokinesis but preserved EF. Continue beta-nando and ARB. Uncontrolled diabetes mellitus type 2--appreciate endocrinology input. Continue insulin Small stroke noted by CT head with associated altered mental status, but no acute focal deficits. No intracranial bleed. Ongoing neurochecks. Brain MRI scheduled. Appreciate neurology management. Transferring to floor for further PT/OT assessment, and possible rehab post-discharge. Justine Godwin MD Nutrition Assessment Type and Reason for Visit: Initial (DT referral- uncontrolled DM) Nutrition Recommendations/Plan: Suggest modifying diet to SANDY, 4 carb choices (60 g/meal) diet to promote PO intake and euglycemia Pt is added to room service assist due to 'poor vision' noted per chart review Monitor PO intake for indication for ONS. Suggest to document pt's % PO intake at meals to facilitate monitoring Diabetes diet and heart healthy diet information is added to pt's discharge instruction. Will monitor appropriateness for diet education needs assessment RD will monitor PO intake, weight, labs, overall nutrition status and will follow weekly Malnutrition Assessment: Malnutrition Status: Insufficient data Nutrition Assessment: Pt with PMH including uncontrolled T2DM, HTN, HLD, CKD stage III, suspected COPD, chronic tobacco abuse with reported 2PPD x40+ years, and obesity presented to [facility] 03/15/[address] [facility] for CABG evaluation after she initially presented with chest pain and underwent LHC which demonstrated MV CAD. She refused CABG and underwent PCI with KINGSLEY 03/16. Pt is noted to be a poor historian, oriented x2 per documentation. Pt is noted to be non compliant with medications, disinterested and disengaged with medical treatment, concern for depression. Psych consulted. Noted A1C of 13.3 on 03/16. Pt is sleeping at time of RD visit and does not respond to name. Estimated Daily Nutrient Needs: Energy Requirements Based On: Kcal/kg Weight Used for Energy Requirements: [place] (25-30 kcal/kg) Weight for Energy Calculation (kg): 50 kg Total Energy Requirements (kcals/day): 1627-4041 Weight Used for Protein Requirements: [place] (1.2-1.3 g/kg) Weight in Kg Used for Protein Requirements: 50 kg Estimated Total Protein (g/day): 60-65 Estimated Daily Total Fluid (ml/day): per MD Nutrition Related Findings: Lives with: Alone Teeth: Missing teeth Room Service Room Service: Selective Lemuel Scale Score: 20 .Wound Type: None Net IO Since Admission: -1,600 mL [03/18/24 1509] Edema: RLE Edema: Non-pitting, LLE Edema: Non-pitting Labs and meds reviewed: aspirin, 81 mg, Oral, Daily carvedilol, 6.25 mg, Oral, BID WC insulin glargine, 24 Units, SubCUTAneous, Nightly insulin lispro, 0-12 Units, SubCUTAneous, TID WC insulin lispro, 10 Units, SubCUTAneous, TID WC losartan, 50 mg, Oral, Daily rosuvastatin, 40 mg, Oral, Nightly ticagrelor, 90 mg, Oral, BID BMP: Recent Labs 03/15/24 2247 03/16/24 0157 03/17/24 0049 03/18/24 0130 NA 137 138 133* 134* K 4.1 3.9 4.0 3.8 CL 102 105 102 105 CO2 29 24 24 BUN 19* 21* 22* 16 CREATININE 0.96 0.96 0.89 0.85 GLUCOSE 152* 153* 269* 206* CALCIUM 9.6 9.2 9.0 8.8 MG 1.8 -- 1.7 2.0 PHOS 4.4 -- 3.1 3.1 Recent Labs 03/17/24 0905 03/17/24 1311 03/17/24 1742 03/17/24 2040 03/18/24 0916 03/18/24 1314 POCGLU 255* 369* 287* 242* 242* 214* Lab Results Component Value Date HGBA1C 13.3 (H) 03/16/2024 Lab Results Component Value Date EFBP 65 03/17/2024 Lab Results Component Value Date CHOL 173 03/16/2024 HDL 39 (L) 03/16/2024 TRIG 150 (H) 03/16/2024 Current Nutrition Therapies: Adult diet Regular; Low Fat/Low Chol/High Fiber/2 gm Na Current Oral Intake Average Meal Intake: Unable to assess Average Supplements Intake: None Ordered Anthropometric Measures: Height: 157.5 cm (5' 2") Current Body Weight: 92.1 kg (203 lb 0.7 oz) (03/18) Admission Body Weight: 93.5 kg (206 lb 2.1 oz[facility] Usual Body Weight: (229# on 04/27/23, 221# on 07/31/23) [place] Body Weight (lbs) (Calculated): 110 lbs [place] Body Weight (Kg) (Calculated): 50 kg % [place] Body Weight (Calculated): 184.6 % BMI (kg/m2) (Calculated): 37.1 BMI Categories: Obese Class 2 (BMI 35.0 -39.9) Wt Readings from Last 10 Encounters: 03/18/24 92.1 kg (203 lb 0.7 oz) Nutrition Diagnosis: Altered nutrition-related lab values related to endocrine dysfuntion as evidenced by (elevated A1C) Nutrition Interventions: Food and/or Nutrient Delivery: Modify Current Diet Nutrition Education/Counseling: Education not appropriate (A&Ox2; sleeping; non compliance) Coordination of Nutrition Care: Continue to monitor while inpatient Goals: Goals: PO intake 75% or greater, by next RD assessment (Glucose will be well-controlled during admission) Nutrition Monitoring and Evaluation: Behavioral-Environmental Outcomes: Knowledge or Skill, Beliefs and Attitutes Food/Nutrient Intake Outcomes: Food and Nutrient Intake, Supplement Intake Physical Signs/Symptoms Outcomes: Biochemical Data, GI Status, Fluid Status or Edema, Weight, Nutrition Focused Physical Findings Discharge Planning: Too soon to determine Marily Watkins RD, LD Contact: *[phone] or via [employer] chat Images from the original note were not included. [facility] [place] [facility] CCU PROGRESS NOTE Patient Name: Neil Wellington : 1970 Subjective: Interval History: - No acute overnight events - Patient was resting in bed this morning. A& O x 1; oriented to name, not month, year and location. Denies chest pain, palpitations, shortness of breath, nausea, vomiting, diarrhea. Review of Systems: Review of Systems All other systems reviewed and are negative. Inpatient Medications: Scheduled Meds:aspirin, 81 mg, Oral, Daily carvedilol, 6.25 mg, Oral, BID WC insulin glargine, 24 Units, SubCUTAneous, Nightly insulin lispro, 0-12 Units, SubCUTAneous, TID WC insulin lispro, 8 Units, SubCUTAneous, TID WC losartan, 50 mg, Oral, Daily rosuvastatin, 40 mg, Oral, Nightly ticagrelor, 90 mg, Oral, BID Continuous Infusions: none PRN Meds used in the last 24hr: Tylenol 650 mg x 1 Objective: Physical Examination: BP 137/74 (BP Location: Left arm, Patient Position: Lying) Pulse 84 Temp 36.2 C (97.2 F) (Temporal) Resp 18 Ht 1.575 m (5' 2") Wt 92.1 kg (203 lb 0.7 oz) SpO2 95% BMI 37.14 kg/m No intake or output data in the 24 hours ending 03/18/24 1246 Physical Exam Constitutional: Appearance: She is obese. Comments: Appears sluggish;slow to respond Cardiovascular: Rate and Rhythm: Normal rate and regular rhythm. Comments: Radial access site intact Pulmonary: Effort: Pulmonary effort is normal. Abdominal: General: Abdomen is flat. Palpations: Abdomen is soft. Musculoskeletal: Right lower leg: No edema. Left lower leg: No edema. Skin: General: Skin is warm and dry. Neurological: General: No focal deficit present. Mental Status: She is alert. Cranial Nerves: No cranial nerve deficit. Sensory: No sensory deficit. Motor: No weakness. Coordination: Coordination normal. Gait: Gait abnormal (Unable to visualize gait but patient reports instability with walking). Deep Tendon Reflexes: Reflexes normal. Comments: A&O x 1; oriented to name; not location, month and year Psychiatric: Comments: Flat affect Pertinent Labs: BMP: Lab Results Component Value Date NA 134 (L) 03/18/2024 K 3.8 03/18/2024 CL 105 03/18/2024 CO2 24 03/18/2024 BUN 16 03/18/2024 CREATININE 0.85 03/18/2024 GLUCOSE 206 (H) 03/18/2024 CALCIUM 8.8 03/18/2024 MG 2.0 03/18/2024 PHOS 3.1 03/18/2024 CBC: Lab Results Component Value Date WBC 14.1 (H) 03/18/2024 HGB 14.0 03/18/2024 HCT 42.5 03/18/2024 MCV 86.9 03/18/2024 PLT 190 03/18/2024 Cardiac profile: TROPONIN I Date Value Ref Range Status 03/16/2024 37.400 (HH) <0.034 ng/mL Final 03/16/2024 41.600 (HH) <0.034 ng/mL Final 03/15/2024 32.700 (HH) <0.034 ng/mL Final Coagulation: No results found for: "INR", "PTT" Lipid panel: Lab Results Component Value Date CHOL 173 03/16/2024 HDL 39 (L) 03/16/2024 TRIG 150 (H) 03/16/2024 Other: Lab Results Component Value Date HGBA1C 13.3 (H) 03/16/2024 TSH 1.923 03/16/2024 Chest Imaging: CXR: === 03/15/24 === XR CHEST 1 VIEW - Impression - Mild vascular congestion. Report Dictated on Electronically Signed By: Jordan Davies DO Electronically Signed Date/Time: 03/15/2024 10:47 PM EDT Cardiac Studies: Telemetry findings reviewed: yes ECG: Encounter Date: 03/15/24 ECG 12 lead Result Value Heart Rate 85 QRSD Interval 90 QT Interval 410 QTC Interval 487 P [place] -44 QRS [place] 154 T Wave [place] 96 [place] Interval 150 Impression Sinus rhythm Right axis deviation Abnormal T, consider ischemia, lateral leads ST elevation, consider inferior injury Echo: No results found for this or any previous visit. Cath Report: No results found for this or any previous visit. Assessment/Plan NSTEMI - Presented to [facility] ED with substernal chest pain that started on 03/13/24 - Initially placed on nitroglycerin gtt which resolved - Transferred from [facility] on 03/15/24 for concern of high-risk PCI and CABG evaluation - EKG NSR with high lateral T wave inversions and no ST depression - Troponin 32.7 ==> 41.6 ==> 37.4 - proBNP elevated to 3,160 LHC (03/16/24) - KINGSLEY to ostial-mid Lcx (85% stenosis) and ostial RCA (80% stenosis), and mild - moderate disease of LAD and ramus - Continue ASA 81 mg daily - Continue Brilinta 90 mg BID daily - PT/OT HTN BP elevated this morning 148/103 - Continue Losartan 50 mg daily - Continue Coreg 6.25 mg BID daily HFrEF (EF on 03/15/24) Euvolemic on exam TTE (03/17/24) - EF 65%, mildly increased wall thickness and moderate (2+) regurgitation - Continue Losartan 50 mg daily - Continue Coreg 6.25 mg BID daily - Discontinue Spironolactone 25 mg daily - Consider starting Farxiga 10 mg daily in outpatient setting given history of T2DM HLD - Continue Crestor 40 mg nighty - Discontinue Zetia 10 mg nightly T2DM Ha1c 13.3% (03/16/24) Non-compliant with home regimen (Metformin 500 mg BID daily, Jardiance 10 mg daily, Trulicity 3 mg once weekly) - Endocrinology following - Continue Lantus 24 units nightly - Continue Humalog 8 units TID with meals - LDSSI - Endocrinology consulted; appreciate recs Delirium Likely in setting of current hospitalization but unaware of baseline A&O x 1; rest of Neuro exam unremarkable NIH score of 0 - Will obtain CT head wo contrast to rule out stroke/TIA - Psychiatry consulted; appreciate recs Suspected COPD Tobacco Use - Consider obtaining PFTs outpatient - Encouraged smoking cessation; patient not ready to quit - Goals of Care: Full Code - DVT Prophylaxis: heparin - GI Prophylaxis: Protonix daily - Diet: NPO - BMI Classification: Body mass index is 37.14 kg/m . - Disposition: Continue to monitor in CCU. Associated attestation - Justine Godwin MD - 03/18/2024 10:10 PM EDT I, Dr. Justine Godwin, saw and evaluated the patient on 03/18/2024. I personally obtained the nino and critical portions of the history and physical exam. I reviewed the medical record including labs, imaging studies, and notes. I discussed the patient with the medical advisor, and I agree with the resident's medical decision making. 53 y.o. female with uncontrolled diabetes mellitus type 2 (A1c 13.3%), hyperlipidemia, hypertension transferred from [facility] for non-STEMI and evidence of multivessel coronary disease by cardiac cath. LAD disease noted to be only mild to moderate, prompting staged PCI of ostial RCA and ostial/proximal circumflex with 2 separate KINGSLEY echo personally reviewed showing EF 65% with left atrial enlargement and. Moderate mitral insufficiency. Mild Inari posterior hypokinesis noted. Patient noted to have some decreased alertness yesterday and this morning with no focal neurologic deficits. No headache reported. No arrhythmias. Creatinine 0.8 downtrending mild leukocytosis of 14,000, hemoglobin A1c 13.3%, LDL 104. Endocrinology assistance appreciated. Impression/Plan: Non-STEMI, type 1, in the setting of multivessel coronary disease. Successful circumflex and RCA PCI with plan for medical management of mild to moderate LAD disease--continue DAPT with aspirin and Brinlinta, beta-nando, high intensity statin Mild ischemic cardiomyopathy with inferior/posterior hypokinesis but preserved EF. Continue beta-nando and ARB. Uncontrolled diabetes mellitus type 2--appreciate endocrinology input. Continue insulin Altered mental status with decreased alertness. No focal deficits. In light of recent cardiac caths and PCI, CT head advised to exclude CVA or bleed. Close neurochecks. CT head revealed possible subacute stroke (left lacunar; left parietal/occipital). Keep patient in CCU with close neurochecks. Continue current meds. Neurocritical care consultation. Will need MRI Justine Godwin MD Department of Internal Medicine Division of Endocrinology, Diabetes, & Metabolism Endocrinology Note Patient Name: Neil Wellington : 1970 AGE: 53 y.o. Room/Bed: [facility]/[address] Admission Date: 03/15/2024 Visit Date: 03/18/2024 Reason for Endocrine Consult: uncontrolled DM Provider/Team Requesting Consult: Cardiology PCP: Luz Mcdermott Outpt Peanut Cleaner: No ASSESSMENT: Uncontrolled DM2 Med noncompliance NSTEMI-stents placed 03/16/24 CKD 3 Depression Tobacco abuse HTN/HLP Poor vision Psoriatic arthritis PLAN: Increase lantus to 24 units HS Keep Humalog 6 units before meals Continue Humalog low dose SS Psych consult for depression ICU goal <180 GMF goal <150 POCT BG ACHS Hypoglycemia management per protocol Carb controlled diet ANTICIPATED ENDOCRINE HOME GOING RECOMMENDATIONS: Optimized for Discharge from Endocrine standpoint: No Home Going Endocrine Rx Recommendations-- TBD--patient has not taken any medications for more than 1 year Outpt Follow Up-- PCP SUBJECTIVE/HPI: CHIEF COMPLAINT: No chief complaint on file. Patient presented to [facility] ED with CP radiating down left arm and jaw pain started 03/13/24 Patient transferred from [facility] had there -for NSTEMI--for CABG vs stents--patient declines surgery Had heart cath and stents placed at [facility] 03/16/24 EF improved on ANNY after stents placed ( was 44% at [facility]) Today patient is resting in bed, barely opens eyes Endorses not taking any medications ordered for more than year Reviewed PCP not from care everywhere 07/2023 states depression reason for not taking medications--patient states ahe did npot follow up with PCP at that visit was advised ED for HTN and patient refused--states memory issues at that time--does not look like mediction for depression was discussed Today she says she does not care Reviewed A1c and need for insulin here but we need to discuss plan. Patient just states I don't care several times in trying determine what plan of treatment she is willing to do--discussed with Dr Caal will place psych consult Asked about appetite and what she ate--I don't remember Per nursing ate eggs and hungarian toast for BF Interval events 6-24-24 BGL below- elevated Resting in chair VSS RA Flat affect Does not communicate much States ate eggs for bfast and denies late snacking Has cough Denies nv abd pain Psych on to see Spoke with nursing team Type of DM: DM2 Onset of DM: age 51 Home DM Medication Regimen: was ordered but not clear if she ever took regularly DM control (last A1c/glucose data): Lab Results Component Value Date HGBA1C 13.3 (H) 03/16/2024 Glucose Date/Time Value Ref Range Status 03/18/2024 09:16 AM 242 (H) 70 - 100 mg/dL Final 03/17/2024 08:40 PM 242 (H) 70 - 100 mg/dL Final 03/17/2024 05:42 PM 287 (H) 70 - 100 mg/dL Final 03/17/2024 01:11 PM 369 (H) 70 - 100 mg/dL Final 03/17/2024 09:05 AM 255 (H) 70 - 100 mg/dL Final 03/16/2024 08:41 PM 286 (H) 70 - 100 mg/dL Final Review of Systems Respiratory: Negative for chest tightness and shortness of breath. Cardiovascular: Negative for chest pain. Endocrine: Positive for polydipsia and polyuria. Skin: Negative for wound. Neurological: Negative for numbness. Psychiatric/Behavioral: Positive for behavioral problems. ROS negative except for those mentioned in HPI. OBJECTIVE: Vitals: 03/18/24 0500 03/18/24 0600 03/18/24 0700 03/18/24 0801 BP: (!) 129/115 146/77 158/81 BP Location: Patient Position: Pulse: 105 92 98 Resp: 16 Temp: TempSrc: SpO2: 98% 95% 97% Weight: Height: Physical Exam Vitals and nursing note reviewed. Constitutional: General: She is awake. She is not in acute distress. Appearance: She is obese. Cardiovascular: Rate and Rhythm: Normal rate and regular rhythm. Pulses: Normal pulses. Heart sounds: Normal heart sounds. Pulmonary: Breath sounds: Normal breath sounds. Abdominal: General: Bowel sounds are normal. Musculoskeletal: General: No swelling. Normal range of motion. Cervical back: Normal range of motion. Skin: General: Skin is warm and dry. Neurological: Mental Status: She is alert and oriented to person, place, and time. Psychiatric: Attention and Perception: She is inattentive. Mood and Affect: Mood is depressed. Behavior: Behavior is slowed and withdrawn. Comments: 24 hour intake/output: Intake/Output Summary (Last 24 hours) at 03/18/2024 0984 Last data filed at 03/17/2024 0935 Gross per 24 hour Intake 55 ml Output -- Net 55 ml Diet: Adult diet Regular; Low Fat/Low Chol/High Fiber/2 gm Na Medications (as per EMR): HomeMeds: No current outpatient medications Scheduled Meds:aspirin, 81 mg, Oral, Daily carvedilol, 6.25 mg, Oral, BID WC ezetimibe, 10 mg, Oral, Nightly folic acid, 1 mg, Oral, Daily insulin glargine, 18 Units, SubCUTAneous, Nightly insulin lispro, 0-12 Units, SubCUTAneous, TID WC insulin lispro, 8 Units, SubCUTAneous, TID WC losartan, 50 mg, Oral, Daily melatonin, 5 mg, Oral, Nightly nicotine, 1 patch, TransDERmal, Daily pantoprazole, 40 mg, Oral, q AM rosuvastatin, 40 mg, Oral, Nightly spironolactone, 25 mg, Oral, Daily thiamine, 100 mg, Oral, Daily ticagrelor, 90 mg, Oral, BID Continuous Infusions: PRN Meds:PRN medications: acetaminophen OR acetaminophen OR acetaminophen, dextrose, dextrose, glucagon (rDNA), glucose, ipratropium-albuterol, naloxone, nitroglycerin, ondansetron ODT OR ondansetron, sodium chloride Diagnostic Workup: I reviewed pertinent Laboratory results, Radiographic results, and Other Clinical Notes at the time of today's encounter. Labs: No components found for: "LABA1C" No components found for: "EAG" Lab Results Component Value Date NA 134 (L) 03/18/2024 K 3.8 03/18/2024 CL 105 03/18/2024 CO2 24 03/18/2024 BUN 16 03/18/2024 CREATININE 0.85 03/18/2024 GLUCOSE 206 (H) 03/18/2024 CALCIUM 8.8 03/18/2024 Lab Results Component Value Date CHOL 173 03/16/2024 Lab Results Component Value Date TRIG 150 (H) 03/16/2024 Lab Results Component Value Date HDL 39 (L) 03/16/2024 Lab Results Component Value Date LDLCALC 104 (H) 03/16/2024 No results found for: "VLDL" Lab Results Component Value Date CHOLHDLRATIO 4 03/16/2024 No results found for: "[id number]" Lab Results Component Value Date TSH 1.923 03/16/2024 Radiology reportsas per the Radiologist Radiology: POCT glucose meter Result Date: 03/16/2024 [facility]formed [facility]: [facility], [address] [place] [id number] CLIA ID: [id number] POCT glucose meter Result Date: 03/16/2024 [facility]formed by: [facility], [address] [place] [id number] CLIA ID: [id number] POCT ACT Result Date: 03/16/2024 Performed by: [employer] [facility], [address] [place] [id number] CLIA ID: [id number] POCT ACT Result Date: 03/16/2024 [facility]formed by: [facility], [address] [place] [id number] CLIA ID: [id number] POCT ACT Result Date: 03/16/2024 Performed by: [facility], [address] [place] [id number] CLIA ID: [id number] ECG 12 lead Sinus rhythm Right axis deviation Abnormal T, consider ischemia, lateral leads ST elevation, consider inferior injury Cardiac procedure Result Date: 03/16/2024 - Successful IVUS guided PCI of ostial to mid circumflex artery with deployment of 3.0 mm x 48 mm Synergy KINGSLEY - Successful IVUS guided PCI of ostial RCA with deployment of 4.0 mm x 12 mm Xience KINGSLEY - Medical therapy for mild to moderate disease of LAD and ramus POCT glucose meter Result Date: 03/16/2024 Performed by: [facility], [address] [place] [address] CLIA ID: [id number] POCT glucose meter Result Date: 03/15/2024 Performed by: [facility], [address] [place] [id number] CLIA ID: [id number] XR chest 1 view Result Date: 03/15/2024 Patient Name: NEIL WELLINGTON : 1970 [id number] Exam Date/Time: 03/15/2024 20:23 Procedure: XR CHEST 1 VIEW Ordering Provider: ORTIZ JOSEPH Reason For Exam: Shortness of breath PORTABLE CHEST: INDICATION: Shortness of breath COMPARISON: No previous studies are available for comparison. Obtained at 2020. A single portable AP radiograph of the chest was obtained. The heart is borderline in size. The mediastinal silhouette is normal. There is mild vascular congestion. No effusions or acute infiltrates. There is no pleural thickening. The osseous structures are unremarkable. Mild vascular congestion. Report Dictated on Electronically Signed By: Jordan Davies DO Electronically Signed Date/Time: 03/15/2024 10:47 PM EDT ECG 12 lead Sinus rhythm Probable left atrial enlargement Abnormal T, consider ischemia, lateral leads ST elevation, consider inferior injury History/Other: Past Medical History: History reviewed. No pertinent past medical history. Past Surgical History: Past Surgical History: Procedure Laterality Date CARDIAC CATHETERIZATION N/A 03/16/2024 Performed by Maximo Max MD at [facility] Cardiac Cath/EP Lab CARDIAC CATHETERIZATION N/A 03/16/2024 Performed by Maximo Max MD at [facility] Cardiac Cath/EP Lab CARDIAC CATHETERIZATION N/A 03/16/2024 Performed by Maximo Max MD at [facility] Cardiac Cath/EP Lab Allergy(ies): No Known Allergies Family History: No family history on file. Social History: Social History Tobacco Use Smoking status: Unknown Portions of the information within this encounter were entered using an electronic dictation system. Best attempts were made to edit/proofread the information prior to note completion. Despite the review of information, some errors may remain. If there are questions related to the information contained within the note please contact the signing physician directly. I spent 15 minutes with the pt which involved coordination of care, medical evaluation, review of records, and/or counseling of the pt regarding his/her condition/disease state/prognosis on the date of this note. Associated attestation - Jazmine Caal MD - 03/18/2024 2:06 PM EDT I performed a history and physical examination of the patient. I have reviewed the patient's chart including pertinent history, medications, labs, radiology, and other reports. I reviewed the resident/AMINTA's note, agree with the documented findings and plan of care (with modifications noted if any), and discussed the management plan. Pt was up in the recliner. Denies pain. No SOB. Eating well. Lethargic. Eyes closed. Not very conversant. BG still elevated. Explained current plan. She acknowledged she needed to do better. Psych consulted. Adult diet Regular; Low Fat/Low Chol/High Fiber/2 gm Na Estimated Creatinine Clearance: 81.8 mL/min (by C-G formula based on SCr of 0.85 mg/dL). BP 137/74 (BP Location: Left arm, Patient Position: Lying) Pulse 84 Temp 36.2 C (97.2 F) (Temporal) Resp 18 Ht 5' 2" (1.575 m) Wt 203 lb 0.7 oz (92.1 kg) SpO2 95% BMI 37.14 kg/m Obese, awake, alert, not in distress, RRR, abdomen soft, nontender, no open skin lesions, no edema, no focal deficits, depressed, flat affect. Dx: Type 2 DM with complications, uncontrolled, on long-term insulin Type 2 DM with hyperglycemia CAD/NSTEMI s/p PCI Depression Poor compliance with therapy Tobacco abuse Vision impairment Psoriatic arthritis Plan: -pt with poorly controlled DM due to poor cmpliance, possibly contributed by depression -will increase Lantus to 24 and Humalog to 10 units TID + mod dose SS -closely monitor BG; adjust doses as necessary -management of hypoglycemia per protocol -counseled pt on DM management -carb controlled diet -advised pt regarding importance of compliance -advised to start back on Liset at home -will benefit from DSME -- will also evaluate ability to use insulin -will need to determine a simple DM regimen for pt due to physical limitations -appreciate Psych eval/mx for ongoing depression -tobacco cessation Anticipated homegoing regimen: possibly resume Trulicity, metformin, Jardiance; possible insulin? FU with Endocrinology outpatient. Total time 20 minutes which include review of records, counseling, management, and coordination of care as documented in note. [facility] Respiratory Care Department Progress Note As part of the Respiratory Assessment Program (RAP), the following Respiratory Therapist evaluation has been completed, including a chart review and clinical/physical assessment. Respiratory Therapist RAP Evaluation Guideline Points 0 1 2 3 4 Points Strongly Consider History Factor No Pulmonary conditions Stable Pulmonary condition(s) Surgery or Intervention that may impact Pulmonary system (at risk) Surgery or Intervention that is impacting Pulmonary system Active Exacerbation of Pulmonary Condition 1 Respiratory Pattern Regular, RR= 12-18 OCONNOR or Increased RR= 19-24 Irregular, or RR= 25-30 SOB, talk in short sentences, or RR= 31-35 Severe SOB, accessory muscle use, one word answers, or RR>35 0 Aerosol Med(s), High Flow O2 Breath Sounds Clear Diminished in 1 lobe Diminished in ? 2 lobes Adventitious breath sounds Coarse crackles, Wheezes, or Diminished in >2 lobes 0 Aerosol Med(s), Bronchial Hygiene, Hyperinflation Cough & Sputum Strong cough, no secretion retention or production Weak cough, no secretion retention or production Weak cough, w/ production (less often than Q2hr), or secretion retention No cough, w/ secretion retention or production (less often than Q2hr) Significant secretion production (more often than Q2hr) or mucus plug 0 Aerosol Med(s), Bronchial Hygiene, Hyperinflation Level of Activity Ambulatory Ambulatory with Assist Up in chair or edge of bed (dangle) Non-ambulatory, bedridden with active ROM Completely paralyzed or without active ROM 1 Triage 5 0-2 Triage 4 3-5 Triage 3 6-10 Triage 2 11-14 Triage 1 ?15 Total 2 Triage Score = 5 TRIAGE SCORING - SUGGESTED FREQUENCIES Aerosol Therapy Bronchial Hygiene Hyperinflation Triage Score Q4h & PRN 1 Q4hWA (QID) & PRN 2 TID & PRN 3 BID & PRN 4 PRN 5 Therapy(s) Indicated Yes/No Aerosol Medication No Hyperinflation No Bronchial Hygiene No High Flow Oxygen No RT to enter/modify frequency of treatment order in EMR/EHR to match this RAP evaluation. Based on this RAP evaluation the following therapy is being changed to PRN Comments: Thank you for involving Respiratory in the care of this patient, Nutrition rescreen completed. Patient referred to the Dietitian for uncontrolled DM. LYUBOV Palacio Images from the original note were not included. [facility] [place] [facility] CCU PROGRESS NOTE Patient Name: Neil Wellington : 1970 Subjective: Interval History: No acute overnight events. This morning, nurse was concerned for change in mentation and expressive aphasia. Stroke team NOT activated. NIH score of 0. Patient was resting in bed this morning; sluggish and slow to respond (similar to yesterday). However, patient appears more confused than yesterday; unclear of baseline. A&O x 1. Denies chest pain, shortness of breath, palpitations, lightheadedness, dizziness, nausea and vomiting. States last bowel movement was near day of admission. Review of Systems: Review of Systems All other systems reviewed and are negative. Inpatient Medications: Scheduled Meds:aspirin, 81 mg, Oral, Daily carvedilol, 6.25 mg, Oral, BID WC ezetimibe, 10 mg, Oral, Nightly folic acid, 1 mg, Oral, Daily insulin glargine, 10 Units, SubCUTAneous, Nightly insulin lispro, 0-6 Units, SubCUTAneous, TID WC ipratropium-albuterol, 3 mL, Nebulization, TID losartan, 50 mg, Oral, Daily melatonin, 5 mg, Oral, Nightly nicotine, 1 patch, TransDERmal, Daily pantoprazole, 40 mg, Oral, q AM rosuvastatin, 40 mg, Oral, Nightly spironolactone, 25 mg, Oral, Daily thiamine, 100 mg, Oral, Daily ticagrelor, 90 mg, Oral, BID Continuous Infusions: PRN Meds used in the last 24hr: heparin 4000 units x 1 Objective: Physical Examination: BP 154/94 Pulse 81 Temp 36.5 C (97.7 F) (Temporal) Resp 17 Ht 1.575 m (5' 2") Wt 92.5 kg (203 lb 14.8 oz) SpO2 96% BMI 37.30 kg/m Intake/Output Summary (Last 24 hours) at 03/17/2024 0949 Last data filed at 03/16/2024 1700 Gross per 24 hour Intake -- Output 1055 ml Net -1055 ml Physical Exam Constitutional: Appearance: She is obese. Comments: Sluggish-appearing Cardiovascular: Rate and Rhythm: Normal rate and regular rhythm. Comments: Radial access site intact Pulmonary: Effort: Pulmonary effort is normal. Abdominal: General: Abdomen is flat. Palpations: Abdomen is soft. Musculoskeletal: Right lower leg: No edema. Left lower leg: No edema. Skin: General: Skin is warm and dry. Neurological: General: No focal deficit present. Mental Status: She is alert. Cranial Nerves: No cranial nerve deficit. Sensory: No sensory deficit. Motor: No weakness. Coordination: Coordination normal. Deep Tendon Reflexes: Reflexes normal. Comments: A&O x 1; oriented to name; not location, month and year Pertinent Labs: BMP: Lab Results Component Value Date NA 133 (L) 03/17/2024 K 4.0 03/17/2024 CL 102 03/17/2024 CO2 24 03/17/2024 BUN 22 (H) 03/17/2024 CREATININE 0.89 03/17/2024 GLUCOSE 269 (H) 03/17/2024 CALCIUM 9.0 03/17/2024 MG 1.7 03/17/2024 PHOS 3.1 03/17/2024 CBC: Lab Results Component Value Date WBC 16.3 (H) 03/17/2024 HGB 15.2 03/17/2024 HCT 46.5 03/17/2024 MCV 87.7 03/17/2024 PLT 187 03/17/2024 Cardiac profile: TROPONIN I Date Value Ref Range Status 03/16/2024 37.400 (HH) <0.034 ng/mL Final 03/16/2024 41.600 (HH) <0.034 ng/mL Final 03/15/2024 32.700 (HH) <0.034 ng/mL Final Coagulation: No results found for: "INR", "PTT" Lipid panel: Lab Results Component Value Date CHOL 173 03/16/2024 HDL 39 (L) 03/16/2024 TRIG 150 (H) 03/16/2024 Other: Lab Results Component Value Date HGBA1C 13.3 (H) 03/16/2024 TSH 1.923 03/16/2024 Chest Imaging: CXR: === 03/15/24 === XR CHEST 1 VIEW - Impression - Mild vascular congestion. Report Dictated on Electronically Signed By: Jordan Davies DO Electronically Signed Date/Time: 03/15/2024 10:47 PM EDT Cardiac Studies: Telemetry findings reviewed: yes ECG: Encounter Date: 03/15/24 ECG 12 lead Result Value Heart Rate 85 QRSD Interval 90 QT Interval 410 QTC Interval 487 P [place] -44 QRS [place] 154 T Wave [place] 96 [place] Interval 150 Impression Sinus rhythm Right axis deviation Abnormal T, consider ischemia, lateral leads ST elevation, consider inferior injury Echo: No results found for this or any previous visit. Cath Report: No results found for this or any previous visit. Assessment/Plan NSTEMI - Presented to [facility] ED with substernal chest pain that started on 03/13/24 - Initially placed on nitroglycerin gtt which resolved - Transferred from [facility] on 03/15/24 for concern of high-risk PCI and CABG evaluation - EKG NSR with high lateral T wave inversions and no ST depression - Troponin 32.7 ==> 41.6 ==> 37.4 - proBNP elevated to 3,160 - CTS consulted - Patient does not want to proceed with bypass surgery [facility] (03/16/24) - KINGSLEY to ostial-mid Lcx (85% stenosis) and ostial RCA (80% stenosis), and mild - moderate disease of LAD and ramus - Continue ASA 81 mg daily - Continue Brilinta 90 mg BID daily - PT/OT HTN BP elevated overnight with max SBP 177 and DBP of 100 - INCREASE Losartan 25 to 50 mg daily - START Coreg 6.25 mg BID daily; if BP elevated this afternoon; can increase to 12.5 mg HFrEF (EF 40% on 03/15/24) Euvolemic on exam UOP of 1.35 L yesterday S/p IV Lasix 40 mg x 1 - TTE results pending - Continue Losartan 50 mg daily - DC Toprol XL-25 mg daily - Continue Coreg 6.25 mg BID daily - START Spironolactone 25 mg daily - Consider starting Farxiga 10 mg daily in outpatient setting given history of T2DM HLD - Continue Crestor 40 mg nighty - Continue Zetia 10 mg nightly T2DM Ha1c 13.3% (03/16/24) Non-compliant with home regimen (Metformin 500 mg BID daily, Jardiance 10 mg daily, Trulicity 3 mg once weekly) - Continue home Lantus 10 units nightly - Consider increasing to 14 units nightly - Consider starting Humalog 15 units TID with meals - LDSSI - Endocrinology consulted; appreciate recs Delirium Likely in setting of current hospitalization but unaware of baseline A&O x 1; rest of Neuro exam unremarkable NIH score of 0 - no concern for TIA/stroke at this moment - Consider starting thiamine and folate for concern of alcohol withdrawal Suspected COPD Tobacco Use - DuoNebs TID - Consider obtaining PFTs outpatient - Continue NRT - Counseled on tobacco cessation and discussed risks for developing recurrent IL; patient refused to stop smoking and understood risks of her decision - Goals of Care: Full Code - DVT Prophylaxis: heparin - GI Prophylaxis: Protonix daily - Diet: NPO - BMI Classification: Body mass index is 37.3 kg/m . - Disposition: Continue to monitor in CCU. Associated attestation - Shine Almendarez MD - 03/18/2024 12:39 PM EDT I, Dr. Shine Almendarez, saw and evaluated the patient on 03/17/2024. I personally obtained the nino and critical portions of the history and physical exam. I reviewed the chart, the resident's documentation, and discussed the patient with the resident. I agree with the resident's medical decision making and have edited the note to reflect my clinical findings and my assessment and plan. In summary, Neil Wellington is a 53 yo F with NSTEMI s/p PCI. Hypertensive. - Smoking cessation - DAPT, statin - BP control -- Carvedilol Shine Almendarez MD Department of Cardiovascular Disease, Division of Heart Failure [facility] [place] 12:23 PM 03/17/24 Addendum: Patient has Class 3 obesity with BMI of 37.1 Shine Almendarez MD Department of Cardiovascular Disease, Division of Heart Failure [facility] [place] [facility] Cardiovascular Medicine Interventional Cardiology Progress Note Today's Date: 03/17/2024 8:23 AM PatientName: Neil Wellington Date of Admission: 03/15/2024 7:36 PM Patient's Age: 53 y.o., 1970 Primary Care Physician: Luz Mcdermott Subjective: No acute events overnight. Patient denies any chest pain, palpitations, or SOB. Sitting in a chair eating breakfast at the time of my exam and doing well. Allergies: Patient has no known allergies. Current Medications: aspirin, 81 mg, Oral, Daily ezetimibe, 10 mg, Oral, Nightly insulin glargine, 10 Units, SubCUTAneous, Nightly insulin lispro, 0-6 Units, SubCUTAneous, TID WC And insulin lispro, 0-6 Units, SubCUTAneous, Nightly ipratropium-albuterol, 3 mL, Nebulization, TID losartan, 50 mg, Oral, Daily magnesium sulfate, 2,000 mg, IntraVENous, Once melatonin, 5 mg, Oral, Nightly metoprolol succinate XL, 25 mg, Oral, Daily nicotine, 1 patch, TransDERmal, Daily pantoprazole, 40 mg, Oral, q AM rosuvastatin, 40 mg, Oral, Nightly spironolactone, 25 mg, Oral, Daily ticagrelor, 90 mg, Oral, BID Infusions: Physical Exam: VITAL SIGNS: Vitals: 03/17/24 0453 03/17/24 0500 03/17/24 0730 03/17/24 0742 BP: BP Location: Patient Position: Pulse: 92 96 89 Resp: 16 Temp: TempSrc: SpO2: 97% 98% 97% Weight: 203 lb 14.8 oz (92.5 kg) Height: Telemetry: Intake/Output Summary (Last 24 hours) at 03/17/2024 0823 Last data filed at 03/16/2024 1700 Gross per 24 hour Intake -- Output 1355 ml Net -1355 ml Wt Readings from Last 3 Encounters: 03/17/24 203 lb 14.8 oz (92.5 kg) Physical Exam Cardiovascular: Rate and Rhythm: Normal rate and regular rhythm. Heart sounds: No murmur heard. Comments: Radial access site intact. Faint distal pulse is noted to right radial artery, which is similar prior to PCI Pulmonary: Effort: Pulmonary effort is normal. Breath sounds: Normal breath sounds. Musculoskeletal: Cervical back: Normal range of motion. Neurological: Mental Status: She is alert and oriented to person, place, and time. Data: CBC: Recent Labs 03/15/24224603/16/244 03/17/24 0049 WBC 15.8* 16.2* 16.3* HGB 15.9 14.6 15.2 HCT 48.1* 45.0 46.5 MCV 89.6 88.6 87.7 PLT 231 203 187 BMP: Recent Labs 03/15/24224603/16/247 03/17/24 0049 NA 137 138 133* K 4.1 3.9 4.0 CL 102 105 102 CO2 29 27 24 BUN 19* 21* 22* CREATININE 0.96 0.96 0.89 EGFR 71.3 71.3 78.1 Biomarkers: Recent Labs 03/15/24224603/16/2415603/16/24453 TROPONINI 32.700* 41.600* 37.400* PRO-BNP: Recent Labs 03/15/242246 BNP 3,160* ABGs: No results found for: "PHART", "PO2ART", "[id number]" PT/INR: No results for input(s): "INR" in the last 72 hours. APTT: Recent Labs 03/15/24 2247 03/16/24 0454 APTT 22.2 27.4 TSH: Lab Results Component Value Date TSH 1.923 03/16/2024 FASTING LIPID PANEL: Lab Results Component Value Date CHOL 173 03/16/2024 Lab Results Component Value Date HDL 39 (L) 03/16/2024 Lab Results Component Value Date LDLCALC 104 (H) 03/16/2024 Lab Results Component Value Date TRIG 150 (H) 03/16/2024 No results found for: "CHOLHDL" LIVER PROFILE: Results from last 7 days Lab Units 03/17/24 0049 03/16/24 0157 03/15/247 AST U/L 132* 182* 205* ALT U/L 40* 48* 52* Hemoglobin A1C: Lab Results Component Value Date HGBA1C 13.3 (H) 03/16/2024 Iron: No results found for: "IRON", "TIBC", "FERRITIN" CXR: XR chest 1 view Final Result Mild vascular congestion. Report Dictated on Electronically Signed By: Jordan Davies DO Electronically Signed Date/Time: 03/15/2024 10:47 PM EDT Last EKG 03/15/24 ECG 12-LEAD (Preliminary) This result has not been signed. Information might be incomplete. Impression Sinus rhythm Right axis deviation Abnormal T, consider ischemia, lateral leads ST elevation, consider inferior injury Last Echo No results found for this or any previous visit. Last Cath 03/15/24 CARDIAC PROCEDURE (Preliminary) This result has not been signed. Information might be incomplete. Conclusion - Successful IVUS guided PCI of ostial to mid circumflex artery with deployment of 3.0 mm x 48 mm Synergy KINGSLEY - Successful IVUS guided PCI of ostial RCA with deployment of 4.0 mm x 12 mm Xience KINGSLEY - Medical therapy for mild to moderate disease of LAD and ramus Last Stress Test No results found for this or any previous visit. Last EP study No results found for this or any previous visit. No results found for: "EFBP", "PLVEF", "LVEFPHYS", "LVEF2D", "EF" Problem List: Patient Active Problem List Diagnosis NSTEMI (non-ST elevated myocardial infarction) (HCC) Type 2 diabetes mellitus without complication, without long-term current use of insulin (CMS/HCC) (HCC) Psoriatic arthritis (HCC) ASCUS with positive high risk HPV cervical Chronic systolic (congestive) heart failure (HCC) SHAN III (cervical intraepithelial neoplasia grade III) with severe dysplasia Cornea ulcer Assessment & Plan: Coronary artery disease s/p PCI PCI to circumflex and RCA via right radial artery. Poor radial pulse prior to PCI and required ultrasound for radial access. Pulse is faint to right radial artery which is similar prior to PCI On DAPT and tolerating well On GDMT for ACS Discussed the importance of medication adherence to DAPT and patient agreeable to taking her medications as prescribed Discussed cardiac rehab and patient is agreeable to the referral Associated attestation - Maximo Max MD - 03/17/2024 2:38 PM EDT I, Dr. Maximo Max, saw and evaluated the patient 03/17/2024. I personally obtained the nino and critical portions of the history and physical exam. I reviewed the chart and discussed the patient with the resident/fellow. I agree with the resident's and/or fellow's medical decision making and have edited the note to reflect my findings and my assessment and plan. Doing well today s/p PCI of the LCx and RCA in the setting of NSTEMI. Denies chest pain, dyspnea. EF preserved. Given the LCx was an acute thrombotic occlusion on original cath from [facility], would recommend observing at least one more day in CCU. Plan DAPT, statin on discharge. Images from the original note were not included. [facility] [place] [facility] CCU PROGRESS NOTE Patient Name: Neil Wellington : 1970 Subjective: Interval History: This morning, patient appears very tired and not engaged in conversation. Denies chest pain, shortness of breath, lightheadedness, dizziness, abdominal pain and nausea. Discussed plan with patient regarding CABG evaluation vs PCI. No further questions or concerns at this time. Review of Systems: Review of Systems All other systems reviewed and are negative. Inpatient Medications: Scheduled Meds:acetaminophen, 1,000 mg, Oral, 3 times per day aspirin, 81 mg, Oral, Daily ezetimibe, 10 mg, Oral, Nightly insulin glargine, 10 Units, SubCUTAneous, Nightly insulin lispro, 0-6 Units, SubCUTAneous, TID WC And insulin lispro, 0-6 Units, SubCUTAneous, Nightly ipratropium-albuterol, 3 mL, Nebulization, TID losartan, 25 mg, Oral, Daily metoprolol succinate XL, 25 mg, Oral, Daily nicotine, 1 patch, TransDERmal, Daily pantoprazole, 40 mg, Oral, q AM rosuvastatin, 40 mg, Oral, Nightly ticagrelor, 90 mg, Oral, BID Continuous Infusions:heparin, 5-30 Units/kg/hr, Last Rate: 12 Units/kg/hr (03/16/24 0531) PRN Meds used in the last 24hr: heparin 4000 units x 1 Objective: Physical Examination: BP (!) 147/103 Pulse 73 Temp (!) 35.6 C (96 F) Resp 16 Ht 1.575 m (5' 2") Wt 93.5 kg (206 lb 2.1 oz) SpO2 97% BMI 37.70 kg/m Intake/Output Summary (Last 24 hours) at 03/16/2024 1119 Last data filed at 03/16/2024 0830 Gross per 24 hour Intake -- Output 600 ml Net -600 ml Physical Exam Constitutional: Appearance: She is obese. Cardiovascular: Rate and Rhythm: Normal rate and regular rhythm. Pulmonary: Effort: Pulmonary effort is normal. Breath sounds: Wheezing present. Abdominal: General: Abdomen is flat. Palpations: Abdomen is soft. Skin: General: Skin is warm and dry. Neurological: Mental Status: She is alert and oriented to person, place, and time. Psychiatric: Mood and Affect: Mood normal. Pertinent Labs: BMP: Lab Results Component Value Date NA 138 03/16/2024 K 3.9 03/16/2024 CL 105 03/16/2024 CO2 27 03/16/2024 BUN 21 (H) 03/16/2024 CREATININE 0.96 03/16/2024 GLUCOSE 153 (H) 03/16/2024 CALCIUM 9.2 03/16/2024 MG 1.8 03/15/2024 PHOS 4.4 03/15/2024 CBC: Lab Results Component Value Date WBC 16.2 (H) 03/16/2024 HGB 14.6 03/16/2024 HCT 45.0 03/16/2024 MCV 88.6 03/16/2024 PLT 203 03/16/2024 Cardiac profile: TROPONIN I Date Value Ref Range Status 03/16/2024 37.400 (HH) <0.034 ng/mL Final 03/16/2024 41.600 (HH) <0.034 ng/mL Final 03/15/2024 32.700 (HH) <0.034 ng/mL Final Coagulation: No results found for: "INR", "PTT" Lipid panel: Lab Results Component Value Date CHOL 173 03/16/2024 HDL 39 (L) 03/16/2024 TRIG 150 (H) 03/16/2024 Other: No results found for: "HGBA1C", "TSH" Chest Imaging: CXR: === 03/15/24 === XR CHEST 1 VIEW - Impression - Mild vascular congestion. Report Dictated on Electronically Signed By: Jordan Davies DO Electronically Signed Date/Time: 03/15/2024 10:47 PM EDT Cardiac Studies: Telemetry findings reviewed: yes ECG: Encounter Date: 03/15/24 ECG 12 lead Result Value Heart Rate 82 QRSD Interval 91 QT Interval 406 QTC Interval 476 P [place] 65 QRS [place] 4 T Wave [place] 139 [place] Interval 162 Impression Sinus rhythm Probable left atrial enlargement Abnormal T, consider ischemia, lateral leads ST elevation, consider inferior injury Echo: No results found for this or any previous visit. Cath Report: No results found for this or any previous visit. Assessment/Plan NSTEMI - Presented to [facility] ED with substernal chest pain that started on 03/13/24 - Initially placed on nitroglycerin gtt which resolved - Transferred from [facility] for concern of high-risk PCI and CABG evaluation - EKG NSR with high lateral T wave inversions and no ST depression - Troponin 32.7 ==> 41.6 ==> 37.4 - proBNP elevated to 3,160 - [facility] reviewed with ostial LMT disease, mild LAD disease and possible severe ostial stenosis of RCA - CTS consulted - Patient does not want to proceed with bypass surgery - Case discussed with phlebotomy director with plan for PCI - NPO this morning for potential PCI this afternoon - Will load with Brilinta 180 mg followed by 90 mg BID - Continue ASA 81 mg daily - Continue heparin drip HFrEF (EF 40% on 03/15/24) Unable to access TTE records from [facility] - Will obtain TTE S/p IV Lasix 40 mg x 1 - Continue Losartan 25 mg PO daily - Continue Toprol-XL 25 mg PO daily HTN HLD BP normotensive this morning - Will obtain lipid panel - Continue Crestor 40 mg nighty - START Zetia 10 mg nightly T2DM Ha1c 13.3% on 08/30/23 - Will obtain Ha1c today - Continue home Lantus 10 units nightly - LDSSI - POCT glucose checks as needed Suspected COPD Tobacco Use - DuoNebs TID - Consider obtaining PFTs outpatient - Continue NRT CKD Stage III Cr 0.96 - stable - Avoid nephrotoxic agents as able - Goals of Care: Full Code - DVT Prophylaxis: Heparin Drip - GI Prophylaxis: Protonix daily - Diet: NPO - BMI Classification: Body mass index is 37.7 kg/m . - Disposition: Continue to monitor in CCU. Associated attestation - Jase Ortiz DO - 03/16/2024 5:57 PM EDT Pt seen and examined, her films reviewed. The LMT does not look severe (may need IVUS confirmation and there is no significant LAD disease. The RCA and Cx are problematic and amenable to PCI. Concern for compliance with DAPT. She needs verry aggressive RF management. We started this today. Patient seen and examined independently by me. Above discussed and I agree with resident and or fellow note except where indicated in the EMR revision history. Also see my additional comments and changes indicated by discrete font, text color, italics, and/or initials. Labs, cultures, and radiographs where available were personally reviewed. Changes were made in the orders as necessary. I discussed patient concerns with all appropriate caregivers and instructions were given. Please see our orders for the updated patient care plan. documented in this encounter [facility] 03-25-2024 Note Referral placed to [facility] - 1. [facility]. [place] 3. [place] 4. [facility] 5. [facility] via [facility] per TCC request. Await review and response regarding ability to accept. TCC notified. Electronically signed by KASIA Barajas. [facility] 03-25-2024 Note Referral placed to [facility] via [facility] per TCC request. Await review and response regarding ability to accept. TCC notified. [facility] 03-25-2024 Note Referral placed to [facility] via [facility] per TCC request. Await review and response regarding ability to accept. TCC notified. [facility] 03-24-2024 Note [facility] 03-24-2024 Hospital course Narrative Images from the original note were not included. Internal Medicine: Med Team Discharge Summary Neil Wellington : 1970 ADMIT DATE: 03/15/2024 DISCHARGE DATE: 03/27/24 PCP: Luz Mcdermott Visit Status: Admission Code Status: FULL CODE Primary Discharge Diagnosis: NSTEMI Secondary Discharge Diagnoses: Subacute embolic stroke of left posterior temporal and occipital lobe - Suspect embolic vs atheroembolic (03/19/24) Chronic right occipital infarct VERONA HTN HLD Suspected VALENTIN HF recovered EF T2DM Suspected COPD Tobacco use disorder Transaminitis Reason for Admission & Hospital Course: Neil Wellington is a 53 y.o. female that presented to [facility] on 03/15/2024 and was admitted for NSTEMI. Patient initially presented to [facility] where she was complaining of chest pain radiating to the left arm and jaw that started on 03/13. On arrival to [facility] ED patient hypertensive and the 200s systolic, blood glucose elevated 498, creatinine 1.34, initial Troponin 5221 with delta of 7528, third troponin obtained at 17,010. No signs of ST segment changes on initial EKG. Patient was started on nitroglycerin drip as well as heparin drip. At [facility] she underwent left heart cath which demonstrated LMCA with LAD 30 to 40% stenosis and JULISSA-3 flow, ostial ramus intermedius 60 to 70% stenosis and ostial left circumflex with haziness of around 70%. Mid left's circumflex after M1 segment was also occluded. Based on these findings it was recommended the patient be transferred to [facility] for further management. Patient underwent left heart catheterization and staged PCI with KINGSLEY placed to ostial mid circumflex and ostial RCA and medical management of mild to moderate disease of the LAD. Following catheterization patient was started on DAPT, initiated on losartan and Coreg. Echo obtained on 03/17 showed ejection fraction recovered to 65% with mildly increased wall thickness and moderate 2+ regurgitation of the mitral valve, echo at outside hospital prior to patient's transfer showed that LVEF was 40%. On morning of 03/18 patient with altered mental status and decreased alertness, with no focal neurologic deficit however in light of recent cardiac cath and PCI it was recommended that patient undergo CT head to exclude CVA. Patient ultimately found to have had subacute embolic/atheroembolic stroke of the left posterior temporal and occipital lobe as well as had evidence of chronic right occipital infarct. Patient was seen by neurology, recommended that the patient undergo outpatient ANNY and event monitor. Also stated that they felt that even if patient had indication for anticoagulation that she would not be a great candidate due to concern for compliance. Patient was evaluated by PT/OT who recommended patient undergo inpatient rehab. Ophthalmology was consulted due to visual changes associated with subacute stroke, recommended patient undergo outpatient follow-up for formal visual testing. Patient also with chronic noncompliance to her diabetes regimen, A1c of 13.3% on admission. Endocrinology consulted, adjustments were made to patient's insulin regimen. These changes to be continued on transfer to SNF, however also have recommendations in place for once patient is discharged home. Patient will need to follow-up/establish with PCP following stent at rehab facility. On March 26, there was concern for elevation in AST/ALT, which reached 85 and 121, respectively. Abdominal US was ordered which was unremarkable. Additionally, she exhibited an intense headache later in the afternoon with complaints of difficulty seeing. She had some inconsistent visual and oculomotor defects and so a head CT was ordered which showed infarction evolution in the left posterior temporal and occipital area with no hemorrhage. Her headache resolved with acetaminophen. Disposition: Acute Rehab Activity: No restriction. Diet: Adult diet Regular; 4 carb choices (60 gm/meal); Low Fat/Low Chol/High Fiber/2 gm Na Discharge Medications: Medication List START taking these medications acetaminophen 325 MG tablet Commonly known as: Tylenol Take 2 tablets (650 mg) by mouth every 4 hours as needed for mild pain (1-3) for up to 10 days. aspirin 81 MG EC tablet Take 1 tablet (81 mg) by mouth daily. Start taking on: March 28, 2024 atorvastatin 80 MG tablet Commonly known as: Lipitor Take 1 tablet (80 mg) by mouth Nightly. carvedilol 6.25 MG tablet Commonly known as: Coreg Take 1 tablet (6.25 mg) by mouth in the morning and 1 tablet (6.25 mg) in the evening. Take with meals. insulin glargine 100 UNIT/ML injection Commonly known as: Lantus Inject 26 Units under the skin Nightly. * Insulin Lispro 100 UNIT/ML solution injection Commonly known as: Humalog Inject 24 Units under the skin in the morning and 24 Units at noon and 24 Units in the evening. Inject with meals. * Insulin Lispro 100 UNIT/ML solution injection Commonly known as: Humalog Inject 0-12 Units under the skin 3 times daily (with meals). * Insulin Lispro 100 UNIT/ML solution injection Commonly known as: Humalog Inject 4 Units under the skin take with snacks for high blood sugar (For late night snack). ipratropium-albuterol 0.5-2.5 mg/3 mL nebulizer solution Commonly known as: Duo-Neb Take 3 mL by nebulization 3 times daily as needed for wheezing. losartan 50 MG tablet Commonly known as: Cozaar Take 1 tablet (50 mg) by mouth daily. Start taking on: March 28, 2024 nitroglycerin 0.4 MG SL tablet Commonly known as: Nitrostat Place 1 tablet (0.4 mg) under the tongue every 5 minutes as needed for chest pain. polyethylene glycol (PEG) 3350 17 g packet Commonly known as: Miralax Take 17 g by mouth daily for 3 days. Start taking on: March 28, 2024 senna-docusate sodium 8.6-50 MG tablet Commonly known as: Senokot-S Take 2 tablets by mouth daily. Start taking on: March 28, 2024 ticagrelor 90 MG tablet Commonly known as: Brilinta Take 1 tablet (90 mg) by mouth 2 times daily for 708 doses. * This list has 3 medication(s) that are the same as other medications prescribed for you. Read the directions carefully, and ask your doctor or other care provider to review them with you. Where to Get Your Medications Information about where to get these medications is not yet available Ask your nurse or doctor about these medications acetaminophen 325 MG tablet aspirin 81 MG EC tablet atorvastatin 80 MG tablet carvedilol 6.25 MG tablet insulin glargine 100 UNIT/ML injection Insulin Lispro 100 UNIT/ML solution injection Insulin Lispro 100 UNIT/ML solution injection Insulin Lispro 100 UNIT/ML solution injection ipratropium-albuterol 0.5-2.5 mg/3 mL nebulizer solution losartan 50 MG tablet nitroglycerin 0.4 MG SL tablet polyethylene glycol (PEG) 3350 17 g packet senna-docusate sodium 8.6-50 MG tablet ticagrelor 90 MG tablet Notable Medication Changes & Reasoning: NSTEMI Medications: - Aspirin 81 mg daily - Brilinta 90 mg twice daily - Losartan 50 mg daily - Coreg 6.25 mg twice daily - Crestor 40 mg daily Endocrinology recommendations for SNF: - Lantus 26 units nightly - Humalog 18 units 3 times daily with meals - Medium dose slding scale with meals while in the SNF - 4 units lispro with late-night snacks as needed Consultants CTS Endocrinology Psychiatry Neurocritical care Ophthalmology Cardiac rehab Procedures Performed Left heart cath with staged PCI and KINGSLEY placement to ostial-mid left circumflex and ostial RCA Significant Laboratory/Radiographic Data: TTE 03/17/2024: Left Ventricle: Left ventricle size is normal. Mildly increased wall thickness. Normal left ventricular systolic function. EF by 2D Simpsons Biplane is 65%. See diagram for wall motion findings. Right Ventricle: Right ventricle size is normal. Normal systolic function. Mitral Valve: Not well visualized. Valve structure is normal. Moderate (2+) regurgitation. Left Atrium: Left atrium is mildly dilated. Left atrium size is mildly increased (LA volume index 35-41 mL/m2).LA Vol Index is 39 ml/m2. CT head without contrast 03/14/2024: IMPRESSION: - Hypoattenuation in the white matter of left parieto-occipital temporal region suggesting vasogenic edema. There may be a small component of transcortical hypoattenuation anteriorly in the left temporal lobe. Findings are nonspecific and could be due to an acute/subacute infarct though the degree of vasogenic edema could also raise possibility of other etiologies such as neoplasm if in the appropriate clinical setting. - Suspect acute to subacute lacunar infarct of the left caudate body and into the anterior limb internal capsule and left lentiform nucleus. MR brain/head/neck with and without contrast 03/19/2024: FINDINGS: Diffusion-weighted imaging shows an acute infarct in the posterior temporal and occipital lobes on the left measuring 2.6 x 6.2 cm. In addition, there are several tiny posterior fossa acute infarcts involving bilateral cerebellar hemispheres and right side of bhavani. Chronic right occipital infarct. There are patchy and confluent areas of T2 bright signal in the periventricular and subcortical white matter, which are nonspecific, but may relate to chronic small vessel ischemic changes. Major intracranial flow voids are visualized. Ventricular system is normal for age. On gradient echo T2-weighted imaging, there are multiple foci of very low signal which may represent remote areas of remote hemorrhage. No abnormal enhancement seen after IV contrast administration. Postcontrast images suboptimal secondary to motion artifact. CT head wo IV contrast 03/26/2024 FINDINGS: Cerebral and cerebellar parenchyma: Encephalomalacia and gliosis in the right occipital lobe related to a chronic remote infarct. Interval increase in hypodensity in the left occipital and temporal lobes corresponding to evolutionary changes of the recently seen infarct on MRI. The small infarcts in the cerebellum noted on the prior MRI are not well seen by CT. Periventricular low attenuation areas are noted bilaterally, likely due to white matter small vessel ischemic change. No evidence of hemorrhage. No additional focal mass or edema. IMPRESSION: 1. Evolutionary changes of a subacute left temporal occipital infarct. Remote right occipital infarct. 2. No definite acute cortical infarct or intracranial hemorrhage. Note that if there is persistent concern for a new acute infarct, MRI is a more sensitive means of evaluation. 3. White matter changes likely due to microangiopathic disease. Pending Results at Time of Discharge None Follow Up Appointment(s): No future appointments. Items to Address at Followup Visit: - Establish PCP - Ensure compliance with medication regimen at discharge - CBC, CMP- mildly elevated transaminases, ensure resolution - Ophthalmology evaluation, will need formal visual field testing - ANNY and event monitor in setting of subacute stroke discovered while hospitalized - Consideration of anticoagulation, patient needs to show signs of compliance to therapy prior to initiation - Sleep medicine referral for polysomnography - Ensure cardiology follow-up given recent stent placement - Endocrinology follow-up for diabetes management, poorly controlled, consider GLP-1, SGLT-2 inhibitor and metformin if patient shows signs of compliance. - Likely COPD; outpatient PFTs as well as education on smoking cessation documented in this encounter [facility] 03-21-2024 Consult note Formatting of th is note is different from the original. Images from the original note were not included. [facility] CTV ICU [address] [place] [id number] Dept: [phone] Loc: [phone] Reason for Visit: No chief complaint on file. Assessment and Plan Problem List Items Addressed This Visit * (Principal) NSTEMI (non-ST elevated myocardial infarction) (HCC) - Primary Relevant Medications nitroglycerin (Nitrostat) SL tablet 0.4 mg ticagrelor (Brilinta) tablet 90 mg carvedilol (Coreg) tablet 6.25 mg Other Relevant Orders Transthoracic echocardiogram (TTE) complete with contrast, bubble, strain, and 3D PRN (Completed) Case Request [place] Stained Glass: Left heart cath / coronary angiography (Completed) Cardiac procedure (Completed) Ambulatory referral to Cardiology Chronic systolic (congestive) heart failure (HCC) Relevant Medications nitroglycerin (Nitrostat) SL tablet 0.4 mg ticagrelor (Brilinta) tablet 90 mg carvedilol (Coreg) tablet 6.25 mg Other Relevant Orders Transthoracic echocardiogram (TTE) complete with contrast, bubble, strain, and 3D PRN (Completed) No follow-ups on file. Subjective No Known Allergies Current Facility-Administered Medications Medication Dose Route Frequency Provider Last Rate Last Admin acetaminophen (Tylenol) tablet 650 mg 650 mg Oral q4h PRN Vinuth Koduru, DO 650 mg at 03/17/242046 Or Acetaminophen (Tylenol) 650 MG/20.3ML solution 650 mg 650 mg Oral q4h PRN Vinuth Koduru, DO Or acetaminophen (Tylenol) suppository 650 mg 650 mg Rectal q4h PRN Vinuth Koduru, DO aspirin EC tablet 81 mg 81 mg Oral Daily Soumajit Anthony, DO 81 mg at 03/21/24 08 carvedilol (Coreg) tablet 6.25 mg 6.25 mg Oral BID Deric Farooq, DO 6.25 mg at 03/21/24 0814 dextrose 5 % infusion 100 mL/hr IntraVENous PRN Souadint Anthony, DO dextrose 50 % solution 12.5 g 12.5 g IntraVENous PRN Christaina Cruz, DO enoxaparin (Lovenox) syringe 40 mg 40 mg SubCUTAneous Daily Marah Daren, DO 40 mg at 03/21/24 08 glucagon (human recombinant) injection 1 mg 1 mg IntraMUSCular PRN Christiana Cruz, DO glucose oral gel 15 g 15 g Oral PRN Christiana Cruz, DO insulin glargine (Lantus) injection 26 Units 26 Units SubCUTAneous Nightly ROSSY Hatch CNP 26 Units at 03/20/241958 Insulin Lispro (Humalog) injection 0-12 Units 0-12 Units SubCUTAneous TID Jazmine Caal MD 2 Units at 03/21/241214 Insulin Lispro (Humalog) injection 12 Units 12 Units SubCUTAneous TID ROSSY Hatch CNP 12 Units at 03/21/241215 Insulin Lispro (Humalog) injection 4 Units 4 Units SubCUTAneous Nightly ROSSY Hatch CNP 4 Units at 03/20/241958 ipratropium-albuterol (Duo-Neb) 0.5-2.5 mg/3 mL nebulizer solution 3 mL 3 mL Nebulization TID PRN Christiana Cruz, DO losartan (Cozaar) tablet 50 mg 50 mg Oral Daily Marah Daren, DO 50 mg at 03/21/24 08 naloxone (Narcan) injection 0.4 mg 0.4 mg IntraVENous q5 min PRN Souelvie Cruz, DO nitroglycerin (Nitrostat) SL tablet 0.4 mg 0.4 mg SubLINGual q5 min PRN Soumajit Anthony, DO ondansetron ODT (Zofran-ODT) disintegrating tablet 4 mg 4 mg Oral q8h PRN Soumajit Anthony, DO Or ondansetron (Zofran) injection 4 mg 4 mg IntraVENous q6h PRN Soumajit Anthony, DO rosuvastatin (Crestor) tablet 40 mg 40 mg Oral Nightly Soumajit Anthony, DO 40 mg at 03/20/241958 sodium chloride 0.9 % infusion 5-250 mL/hr IntraVENous PRN Soumajit Anthony, DO ticagrelor (Brilinta) tablet 90 mg 90 mg Oral BID Bhavana Brink MD 90 mg at 03/21/24 0814 History reviewed. No pertinent past medical history. Social History Tobacco Use Smoking status: Unknown Smokeless tobacco: Not on file Substance Use Topics Alcohol use: Not on file Past Surgical History: Procedure Laterality Date CARDIAC CATHETERIZATION N/A 03/16/2024 Performed by Maximo Max MD at [facility] Cardiac Cath/EP Lab CARDIAC CATHETERIZATION N/A 03/16/2024 Performed by Maximo Max MD at [facility] Cardiac Cath/EP Lab CARDIAC CATHETERIZATION N/A 03/16/2024 Performed by Maximo Max MD at [facility] Cardiac Cath/EP Lab No family history on file. Objective Base Eye Exam Visual Acuity (Snellen - Linear) Right Left Near sc J10 J10 Tonometry (Tonopen, 3:35 PM) Right Left Pressure soft soft Extraocular Movement Right Left Full, Ortho Full, Ortho Neuro/Psych Oriented x3: Yes Mood/Affect: Normal Slit Lamp and Fundus Exam External Exam Right Left External Normal Normal Slit Lamp Exam Right Left Lids/Lashes Normal Normal Conjunctiva/Sclera White and quiet White and quiet Cornea Clear Clear Anterior Chamber Deep and quiet Deep and quiet Iris Round and reactive Round and reactive Lens Clear Clear Anterior Vitreous Normal Normal Fundus Exam Right Left Disc Normal Normal Macula Normal Normal Vessels Normal Normal Periphery Normal Normal 1. Acute left occipital infarct - anterior and posterior segments of both eyes appear within normal limits (normal ocular exam). Difficult to perform bedside acuity. Confrontational barriga at times appeared full but inconsistent. Recommend follow in Eye Clinic on discharge for formal visual field testing. Holland Cline MD Associated Order(s): IP CONSULT TO BINDER OPERATOR In Patient DIABETES EDUCATION: Patient instructed in the following; Most recent HgbA1C lab result 13.3, its interpretation and in the need for optimal glycemic management. Hyperglycemia symptoms DM pathophysiology and natural progression of disease with the loss of beta cells. Nutrition; with attention to Carb/protein/healthy fat balance, emphasizing a regular schedule for meal times. Hypoglycemia sxs, treatment and prevention; The need for prompt recognition of and treatment for. Agrees to have oral glucose readily available at all times. The timing, actions and side effects of ordered oral agent(s) and non insulin injectables Availability of CGMs The importance of communicate CGM reports and/or glucose log to provider at follow up, The steps in using a glucometer: Obtaining BG sample, correctly, the purpose, proper disposal of sharps, frequency of testing, documentation, target blood sugars and when to call the doctor The rationale for basal, prandial, mixed insulins, their timing, actions and potential side effects. Timing of meals and prandial doses, emphasizing a regular schedule for meal times. Using demo flex and kwikpen, patient able to perform an "air shot", dial up draw up accurate stated doses and self-inject into a model, accurately; Agrees to continue skill, and self-inject ordered doses under direct support staff supervision. Storage of insulin, Implications for driving now that insulin therapy initiated Effects of steroid use on BG and in the need for the wood form builder or ordering physician to decrease insulin dosages as steroids are weaned. States understanding of importance of communicating BG results to physician, at regular intervals Pt verbalized good understanding of information given. Denies having any concerns or questions regarding current home regimen (SMBG, taking oral meds, insulin administration). Encouraged to follow up as outpatient Handouts reviewed and given: Survival Skills: Controlling Blood Sugar Book Blood Sugar Log Sat at bedside, identified my role. Pt believes she has been on insulin in the past, although her "friend," would give her 'the shot." Although pt did not elaborate. Instr in the importance of ongoing insulin and the need to work with her on the skill. Pulled out a demo pen, pt rolled over in bed, closed her eyes and stated not now. Per PT note, the recommendation is for rehab. Plan to follow and attempt session again Attempted to engage in conversation with pt.. Instructed in current A1C value and interpretation, symptoms of hyperglycemia and the need for insulin therapy while in the hospital and upon discharge. When I offered to demonstrate insulin pen administration, pt responded "no." After explaining the importance, stated "no," again. Updated direct support staff. Will attempt to engage in conversation, tomorrow Associated Order(s): IP CONSULT TO NEUROLOGY INITIAL CONSULT NOTE. NEUROCRITICAL CARE Patient Name: Neil Wellington Patient : 1970 Acct: [id number] Date of Admission: 03/15/2024 Room[facility]: [facility] A PCP: Luz Mcdermott History of Present Ilness: Neil Wellington is a 53 y.o. is right handed female whom presented to [facility] on 03/15/[address] [facility] as a transfer for CAD management/CABG evaluation after sustaining NSTEMI on 03/13/24 with chief complaint of "chest pain." Neuro critical care was consulted for "acute vs subacute stroke on CT ordered for continuous altered mental status." Complain: word finding difficulty and loss of vision (> 1 week) Evolution: Patient complained of chest pain with radiation to left arm and jaw which started on 03/13/24. She was treated for NSTEMI at [facility]. At [facility] ED, she was notably hypertensive wit initial SPB in 200s which came down to 146. She received nitroglycerin and was started on heparin. Admitted on aspirin, high dose statin, ACEi, and metoprolol. Underwent left heart catheterization. Transferred to [facility]. Patient noted to have disorientation to place, time, situation so primary team ordered CT head wo contrast which revealed suspected acute-subacute lacunar infarct of left caudate body. Associated symptoms: chest pain, fatigue, depression This occurred in the setting of: HFrEF (LVEF 40% on TTE 03/15/24), uncontrolled type II diabetes mellitus, hypertension, hyperlipidemia, CKD stage III, suspected COPD, chronic tobacco abuse, and obesity as well as poor compliance with home medications Past Medical History: History reviewed. No pertinent past medical history. NSTEMI Hypertension HFrEF (EF 65% on 03/17/24) Hyperlipidemia Diabetes mellitus, type 2, uncontrolled Tobacco use Suspected COPD Past Surgical History: Past Surgical History: Procedure Laterality Date CARDIAC CATHETERIZATION N/A 03/16/2024 Performed by Maximo Max MD at [facility] Cardiac Cath/EP Lab CARDIAC CATHETERIZATION N/A 03/16/2024 Performed by Maximo Max MD at [facility] Cardiac Cath/EP Lab CARDIAC CATHETERIZATION N/A 03/16/2024 Performed by Maximo Max MD at [facility] Cardiac Cath/EP Lab Home Medications: Prior to Admission medications Not on File Current Hospital Medications: Current Facility-Administered Medications: acetaminophen (Tylenol) tablet 650 mg, 650 mg, Oral, q4h PRN, 650 mg at 03/17/242046 OR Acetaminophen (Tylenol) 650 MG/20.3ML solution 650 mg, 650 mg, Oral, q4h PRN OR acetaminophen (Tylenol) suppository 650 mg, 650 mg, Rectal, q4h PRN, Vicki Francis, aspirin EC tablet 81 mg, 81 mg, Oral, Daily, Christiana Cruz, DO, 81 mg at 03/18/24 0924 carvedilol (Coreg) tablet 6.25 mg, 6.25 mg, Oral, BID , Deric Farooq, DO, 6.25 mg at 03/18/24 0924 dextrose 5 % infusion, 100 mL/hr, IntraVENous, PRN, Soumacarolynnt Anthony, DO dextrose 50 % solution 12.5 g, 12.5 g, IntraVENous, PRN, Soumacarolynnt Anthony, DO glucagon (human recombinant) injection 1 mg, 1 mg, IntraMUSCular, PRN, Soumamiki Cruz, DO glucose oral gel 15 g, 15 g, Oral, PRN, Soumacarolynnt Anthony, DO insulin glargine (Lantus) injection 24 Units, 24 Units, SubCUTAneous, Nightly, Yaz Eddy, POISER - ELECTRICAL CAD DESIGNER Insulin Lispro (Humalog) injection 0-12 Units, 0-12 Units, SubCUTAneous, TID Jazmine SAUCEDO MD, 4 Units at 03/18/24 1335 Insulin Lispro (Humalog) injection 10 Units, 10 Units, SubCUTAneous, TID Jazmine SAUCEDO MD ipratropium-albuterol (Duo-Neb) 0.5-2.5 mg/3 mL nebulizer solution 3 mL, 3 mL, Nebulization, TID PRN, Soumacarolynnt Anthony, DO losartan (Cozaar) tablet 50 mg, 50 mg, Oral, Daily, Marah Daren, DO, 50 mg at 03/18/24 0924 naloxone (Narcan) injection 0.4 mg, 0.4 mg, IntraVENous, q5 min PRN, Soumajit Anthony, DO nitroglycerin (Nitrostat) SL tablet 0.4 mg, 0.4 mg, SubLINGual, q5 min PRN, Soumajit Anthony, DO ondansetron ODT (Zofran-ODT) disintegrating tablet 4 mg, 4 mg, Oral, q8h PRN OR ondansetron (Zofran) injection 4 mg, 4 mg, IntraVENous, q6h PRN, Soumajit Anthony, DO rosuvastatin (Crestor) tablet 40 mg, 40 mg, Oral, Nightly, Soumajit Anthony, DO, 40 mg at 03/17/24 2041 sodium chloride 0.9 % infusion, 5-250 mL/hr, IntraVENous, PRN, Soumajit Anthony, DO [COMPLETED] ticagrelor (Brilinta) tablet 180 mg, 180 mg, Oral, Once, 180 mg at 03/16/24 1051 FOLLOWED BY ticagrelor (Brilinta) tablet 90 mg, 90 mg, Oral, BID, Bhavana Brink MD, 90 mg at 03/18/24 0924 Continuous Infusions: Allergies: Patient has no known allergies. Social History: TOBACCO: has no history on file for tobacco use. ETOH: has no history on file for alcohol use. RECREATIONAL DRUG USE: Social History Substance and Sexual Activity Drug Use Not on file Family History: :Unable to obtain, due to patient level of consciousness, no data on file, no family able to provide information No family history on file. ROS:A complete review of system was performed , pertinent positives noted and remainder are negative Review of Systems Eyes: Positive for visual disturbance. Neurological: Positive for speech difficulty. Psychiatric/Behavioral: Positive for decreased concentration. Physical Examination: Patient Vitals for the past 8 hrs: BP Temp Temp src Pulse Resp SpO2 Height 03/18/24 1600 -- 36.6 C (97.8 F) -- -- -- -- -- 03/18/24 1233 -- -- -- -- -- -- 1.575 m (5' 2") 03/18/24 1212 137/74 36.2 C (97.2 F) Temporal 84 18 95 % -- 03/18/24 1100 143/84 -- -- 89 -- -- -- 03/18/24 1000 149/79 -- -- 94 -- 96 % -- 03/18/24 0900 (!) 166/89 -- -- 90 -- 90 % -- I/O last 3 completed shifts: In: 55 (0.6 mL/kg) [I.V.:55 (0.6 mL/kg)] Out: - (0 mL/kg) Weight: 92.1 kg General Physical Examination: General: Appears well nourished, somewhat uncomfortable and frustrated with speech, in no acute distress. HEENT:Normocephalic, atraumaticl CV: S1+S2, RRR, no MRG. Pulm:CTA b/l, unlabored Abdomen: Soft NT/ND. BS + Skin: Intact without ulcers, breakdowns or discoloration Extremities: normal with no edema or cyanosis Orthopedic limitation; No Pulses: Intact peripherally Carotid auscultation :No bruits Neurological Examination: Higher Functions: Mental Status Exam: Level of Alertness:Awake Orientation: Normal to self, time, place Memory: Normal Fund of Knowledge: Intact Language: Anomic aphasia - word finding difficulty Dysarthria not present Cranial Nerves: -II Visual acuity: normal -II Visual barriga: Right Homonymous anopia -III Pupils (~ 4 mm OD, 4 mm OU) equal, round, reactive to light -III-IV- Extraocular Movements: intact -Nystagmus not present -Saccades and pursuits normal -V Facial sensation: intact Corneal's Intact bilateral -VII Facial strength: intact -VIII Hearing: intact -IX-X- Gag reflex present -X Palate:intact -XI Shoulder shrug: Intact -XII Tongue movement: Normal Funduscopic Exam: normal, no edema or exudates both eyes Motor Examination: Tone after evaluation of 4 limbs, the following findings applied: decreased LEFT arm and leg -Bulk: normal -Muscle Stretchafter evaluation of all limbs, and axial musculature the following findings applied: Drift: absent -Reflexes: after evaluation of 4 limbs, the following findings applied ; normal all limbs -Plantar responce: Flexor bilaterally Sensory Intact to light touch, pain / temperature, proprioception, Coordination: Arms Normal finger to nose Legs Intact heel knee cramer testing Tremors not present Gait abnormal, patient unable to walk due to acute circumstances / bedrest / safety concerns NIHSS 1a Level of consciousness: 0=alert; keenly responsive 1b. LOC questions: 0=Performs both tasks correctly 1c. LOC commands: 0=Performs both tasks correctly 2. Best Gaze: 0=normal 3. Visual: 2=Complete hemianopia 4. Facial Palsy: 0=Normal symmetric movement 5a. Motor left arm: 0=No drift, limb holds 90 (or 45) degrees for full 10 seconds 5b. Motor right arm: 0=No drift, limb holds 90 (or 45) degrees for full 10 seconds 6a. motor left le=No drift, limb holds 90 (or 45) degrees for full 10 seconds 6b Motor right le=No drift, limb holds 90 (or 45) degrees for full 10 seconds 7. Limb Ataxia: 2=Present in two limbs 8. Sensory: 0=Normal; no sensory loss 9. Best Language: 1=Mild to moderate aphasia; some obvious loss of fluency or facility of comprehension without significant limitation on ideas expressed or form of expression. 10. Dysarthria: 0=Normal 11. Extinction and Inattention: 0=No abnormality 12. Distal motor function: 0=Normal Total: 5 Results Labs: Last 24hrs Recent Results (from the past 24 hour(s)) POCT glucose meter Collection Time: 03/17/24 5:42 PM Result Value Ref Range Glucose 287 (H) 70 - 100 mg/dL POCT glucose meter Collection Time: 03/17/24 8:40 PM Result Value Ref Range Glucose 242 (H) 70 - 100 mg/dL CBC auto differential Collection Time: 03/18/24 1:30 AM Result Value Ref Range Auto WBC 14.1 (H) 3.6 - 10.7 10*3/uL RBC 4.89 3.80 - 5.20 10*6/uL Hemoglobin 14.0 11.7 - 16.0 g/dL Hematocrit 42.5 35.0 - 47.0 % MCV 86.9 77.0 - 99.0 fL MCH 28.6 26.0 - 34.0 pg MCHC 32.9 30.5 - 36.0 % RDW 13.6 11.5 - 15.0 % Platelets 190 140 - 440 10*3/uL MPV 12.8 (H) 9.0 - 12.7 fL nRBC 0.0 0.0 - 2.0 /100 WBCs Neutrophils Relative 63.5 38.0 - 82.0 % Lymphocytes Relative 22.7 15.0 - 45.0 % Monocytes Relative 10.9 5.0 - 13.0 % Eosinophils Relative 2.2 0.0 - 6.0 % Basophils Relative 0.2 0.0 - 2.0 % Immature Grans % 0.5 0.0 - 2.0 % Neutrophils Absolute 8.9 (H) 1.8 - 7.5 10*3/uL Lymphocytes Absolute 3.2 1.0 - 4.3 10*3/uL Monocytes Absolute 1.5 (H) 0.0 - 0.9 10*3/uL Eosinophils Absolute 0.3 0.0 - 0.5 10*3/uL Basophils Absolute 0.0 0.0 - 0.2 10*3/uL Immature Grans Absolute 0.1 (H) <0.1 10*3/uL Comprehensive metabolic panel Collection Time: 03/18/24 1:30 AM Result Value Ref Range SODIUM 134 (L) 135 - 145 mmol/L POTASSIUM 3.8 3.5 - 5.1 mmol/L CHLORIDE 105 98 - 107 mmol/L CARBON DIOXIDE 24 22 - 30 mmol/L ANION GAP 5 3 - 13 mmol/L UREA NITROGEN 16 7 - 17 mg/dL CREATININE 0.85 0.52 - 1.04 mg/dL GLUCOSE 206 (H) 70 - 100 mg/dL CALCIUM 8.8 8.4 - 10.4 mg/dL AST (SGOT) 67 (H) 15 - 46 U/L ALT 27 0 - 34 U/L ALKALINE PHOSPHATASE 115 38 - 126 U/L ALBUMIN 3.7 3.5 - 5.0 g/dL BILIRUBIN, TOTAL 1.0 0.2 - 1.3 mg/dL TOTAL PROTEIN 7.3 6.3 - 8.2 g/dL eGFR 82.6 >60.0 mL/min/1.73m*2 Magnesium Collection Time: 03/18/24 1:30 AM Result Value Ref Range MAGNESIUM 2.0 1.6 - 2.3 mg/dL Phosphorus Collection Time: 03/18/24 1:30 AM Result Value Ref Range PHOSPHORUS 3.1 2.5 - 4.5 mg/dL POCT glucose meter Collection Time: 03/18/24 9:16 AM Result Value Ref Range Glucose 242 (H) 70 - 100 mg/dL POCT glucose meter Collection Time: 03/18/24 1:14 PM Result Value Ref Range Glucose 214 (H) 70 - 100 mg/dL Since admission: Recent Labs 03/15/24 2247 03/16/24 0157 03/16/24 0454 TROPONINI 32.700* 41.600* 37.400* Recent Labs 03/18/24 0130 ALKPHOS 115 ALT 27 AST 67* BILITOT 1.0 Stroke Specific: Lipids: Recent Labs 03/16/24 0454 CHOL 173 TRIG 150* HDL 39* Radiology: CT head wo IV contrast Result Date: 03/18/2024 Patient Name: [facility] [place] : 1970 [place] [id number] Exam Date/Time: 03/18/2024 12:02 Procedure: CT HEAD WO IV CONTRAST Ordering Provider: GODWIN MARK Reason For Exam: Mental status change, unknown cause EXAMINATION: CT HEAD WO IV CONTRAST HISTORY: Mental status change, unknown cause TECHNIQUE: CT head without contrast. Dose reduction was employed with automated exposure control. COMPARISON: None available. RESULT: Acute change/mass effect: Hypoattenuation predominantly in the white matter of the left parieto-occipital and temporal lobes, likely edema with suggestion of a small transcortical hypoattenuation in the temporal lobe (series 6 image 34). Mild local sulcal effacement. No extra-axial fluid collection. Hemorrhage: No evidence of acute intracranial hemorrhage. Chronic change: Linear encephalomalacia in the right occipital lobe continuous with the occipital horn of the right lateral ventricle. Atherosclerotic calcifications of the carotid siphons and vertebral arteries. Hypoattenuation of the left caudate consistent with a lacunar infarct left caudate body involving the anterior limb of the left internal capsule and extending into the left lentiform nucleus Parenchyma: There is no significant volume loss. Ventricles: Normal caliber and morphology. Other: The calvarium, skull base, imaged paranasal sinuses, mastoids, orbits and extracranial soft tissues are unremarkable. Hypoattenuation in the white matter of left parieto-occipital temporal region suggesting vasogenic edema. There may be a small component of transcortical hypoattenuation anteriorly in the left temporal lobe. Findings are nonspecific and could be due to an acute/subacute infarct though the degree of vasogenic edema could also raise possibility of other etiologies such as neoplasm if in the appropriate clinical setting. Suspect acute to subacute lacunar infarct of the left caudate body and into the anterior limb internal capsule and left lentiform nucleus. Suggest neurology consult and further evaluation with MRI without and with contrast. CRITICAL TEST RESULT COMMUNICATION: Notification of these findings was made to JUSTINE GODWIN via phone call on 03/18/2024 12:24 PM EDT. Report Dictated on Electronically Signed By: Bartolo Bateman MD Electronically Signed Date/Time: 03/18/2024 12:26 PM EDT ASSESSMENT: Anomic Aphasia Vision impairment Acute to subacute lacunar infarct of the left caudate body and into the anterior limb internal capsule and left lentiform nucleus -ETIOLOGY: lacunar infarct, small vessel disease Chronic issues Uncontrolled diabetes mellitus type 2 CAD/NSTEMI s/p PCI Tobacco use PLAN / SUGGESTIONS: -MRI brain w and wo contrast: pending -MRA head and neck w and wo IV contrast: pending -0.5 mg Alprazolam (Xanax) ordered once PRN to be given 30-90 minutes before imaging to reduce anxiety -Continue 81 mg aspirin daily -Continue 40 mg rosuvastatin nightly -Blood pressure control, continue 6.25 mg carvedilol BID -Maximum fall precautions in place -Diabetes control -Recommend smoking cessation -PT/OT will likely recommend inpatient rehabilitation -Follow up for stroke with outpatient neurology -Case management to assist -Neuro critical care will continue to follow for finalized recommendations. Thank you. Patient seen and discussed with Dr. Roney MD Associated attestation - Gi Sim MD - 03/18/2024 6:44 PM EDT Neuro Critical Care / stroke Attending Patient seen with my resident She reported visual problems and speech problems between 1 - 2 weeks prior to coming But for sure for the last week . The CT suggest " vasogenic edema " Most large subacute strokes in the 1-4 weeks period may adquire imaging that is confusing and hard to determine if infarction or tumor, which is the case this time This is NOT A LACUNAR stroke , If a stroke it would be likely embolic and left [employer] most likely Plan Will complete stroke risk assessment, with imaging At risk for stroke in the setting of recent IL, She also has enlarge left atrium . ( Which in combination with BMI 37 % and Mallampati iv places her at risk for VALENTIN and PAF She is on Brilinta and and ASA already for her recent cardiac stents , x 3 Will discuss after MRIs and MRAs with cardiology if need or not for ANNY Patient to continue telemetry She needs speech therapy order, for expressive aphasia Needs OT consultation for visual rehab Max fall precautions, she can't see and she is not aware of it She will NOT be able to drive , Need referral to sleep medicine for VALENTIN evaluation as outpatient Very severe uncontrol DM, will need endocrine None compliant with medications she may benefit of close monitor by PCP , She would benefit of referral to bariatric care I personally interviewed and examined this patient , reviewed , corrected, agreed and attested the note for this patient. I reviewed the chart including MAR, labs, neuroimaging, other imaging studies and discussed my diagnostic impression and patient's plan of care with my AMINTA/resident/ Fellow , student and the consulting team and patient's family members/surrogate decision makers (in cases where the patient is incapacitated and unable to participate in their own care). [x] Encounter Face to Face [x] Consult [x] Time spend [x] 80 [x] will continue to follow Personal discussion of test results and plan of care with: Patient treatments and testing options informed consent and plan of care, Admitting Team, ., ., . Thank you Luz Mcdermott for the opportunity to be involved in this patient's care. Associated Order(s): IP CONSULT TO PSYCHIATRY Department of Psychiatry Consult Service Resident Consult Note Reason for Consult: "Depression, non-compliance with treatment, apathy" Requesting Physician: Jazmine Caal MD CHIEF COMPLAINT: No chief complaint on file. History obtained from: patient and past medical records HISTORY OF PRESENT ILLNESS: The patient is a 53 y.o.female with significant past medical history of T2DM, HLD, CAD, HTN, arthritis, tobacco use, and depression who arrived from [facility] after being cared for an NSTEMI. Pt was subsequently transferred to [facility] for high risk PCI vs CABG. Psychiatry was consulted for evaluation of depression. Patient seen and examined at bedside. She explained the events leading to her hospital admission. Expresses preference of wanting to return home. She is also unsure of the future directions with her care. She does admit to struggling with a depressed mood, but has difficulty identifying psychosocial stressors. Reports difficulty with finances. Additionally, her boyfriend is now incarcerated. She declined to explain what for. She is also has infrequent contact with her son. Endorses increased appetite, problems with fatigue, and anhedonia. She denies thoughts of suicide or homicide. She also denies auditory and visual hallucinations. Denies ever seeing a psychiatrist before. Offered to initiate an antidepressant to address her mood, however patient declined. She does look uncomfortable on exam, however she denies pain. REVIEW OF SYSTEMS: Medical Review Of Systems: Pertinent items are noted in HPI. Psychiatric Review Of Systems: Depressed mood: Endorses depressed mood Sleep changes:Denies Appetite changes: Reports increased appetite Weight changes:Denies Energy changes: Reports problems with fatigue Loss of interest/anhedonia: Anhedonia expressed on interview Somatic symptoms:Denies Libido changes:Denies Anxiety/panic:Denies Guilty/hopeless:Denies Self-injurious/risky behavior:Denies Suicidal ideation:Denies Homicidal ideation:Denies Access to weapons:Denies Lifetime Psychiatric Review Of Systems: Loren or hypomania:Denies Panic attacks:Denies Phobias:Denies PTSD:Denies Obsessions/compulsions:Denies Hallucinations:Denies Delusions:Denies PAST PSYCHIATRIC HISTORY: The patient is not currently receiving care for the above psychiatric illness. Past mental health outpatient care includes: Denies Previous psychiatric hospitalizations: Denies Previous diagnoses: Depression Previous suicide attempts:Denies History of self-injurious behavior:Denies History of violence:Denies Past psychiatric medications include: Denies ever being on a psychotropic meds PAST MEDICAL/SURGICAL HISTORY: Past Medical History: History reviewed. No pertinent past medical history. Past Surgical History: Past Surgical History: Procedure Laterality Date CARDIAC CATHETERIZATION N/A 03/16/2024 Performed by Maximo Max MD at [facility] Cardiac Cath/EP Lab CARDIAC CATHETERIZATION N/A 03/16/2024 Performed by Maximo Max MD at [facility] Cardiac Cath/EP Lab CARDIAC CATHETERIZATION N/A 03/16/2024 Performed by Maximo Max MD at [facility] Cardiac Cath/EP Lab CURRENT MEDICATIONS/ALLERGIES: Current Facility-Administered Medications Medication Dose Route Frequency Provider Last Rate Last Admin acetaminophen (Tylenol) tablet 650 mg 650 mg Oral q4h PRN Vinuth Koduru, DO 650 mg at 03/17/242046 Or Acetaminophen (Tylenol) 650 MG/20.3ML solution 650 mg 650 mg Oral q4h PRN Vinuth Koduru, DO Or acetaminophen (Tylenol) suppository 650 mg 650 mg Rectal q4h PRN Teddyuth Koduru, DO aspirin EC tablet 81 mg 81 mg Oral Daily Souadint Anthony, DO 81 mg at 03/17/24 0923 carvedilol (Coreg) tablet 6.25 mg 6.25 mg Oral BID Deric Farooq, DO 6.25 mg at 03/17/24 1747 dextrose 5 % infusion 100 mL/hr IntraVENous PRN Soumajit Anthony, DO dextrose 50 % solution 12.5 g 12.5 g IntraVENous PRN Soumajit Anthony, DO ezetimibe (Zetia) tablet 10 mg 10 mg Oral Nightly Marah Daren, DO 10 mg at 03/17/242040 folic acid (Folvite) tablet 1 mg 1 mg Oral Daily Feroz Siddiqui MD 1 mg at 03/17/24 1224 glucagon (human recombinant) injection 1 mg 1 mg IntraMUSCular PRN Christiana Cruz, DO glucose oral gel 15 g 15 g Oral PRN Christiana Cruz, DO insulin glargine (Lantus) injection 18 Units 18 Units SubCUTAneous Nightly Sosalyle Woodard, POISER - CASH APPLICATIONS ANALYST 18 Units at 03/17/242040 Insulin Lispro (Humalog) injection 0-12 Units 0-12 Units SubCUTAneous TID Jazmine Caal MD Insulin Lispro (Humalog) injection 8 Units 8 Units SubCUTAneous TID Jazmine Caal MD ipratropium-albuterol (Duo-Neb) 0.5-2.5 mg/3 mL nebulizer solution 3 mL 3 mL Nebulization TID PRN Christiana rCuz, DO losartan (Cozaar) tablet 50 mg 50 mg Oral Daily [facility], DO 50 mg at 03/17/24923 melatonin tablet 5 mg 5 mg Oral Nightly Vinuth Koduru, DO 5 mg at 03/17/242040 naloxone (Narcan) injection 0.4 mg 0.4 mg IntraVENous q5 min PRN Christiana Cruz, DO nicotine (Nicoderm, Step 1) 21 MG/24HR patch 1 patch 1 patch TransDERmal Daily carolemorro Cruz, DO nitroglycerin (Nitrostat) SL tablet 0.4 mg 0.4 mg SubLINGual q5 min PRN Christiana Moredu, DO ondansetron ODT (Zofran-ODT) disintegrating tablet 4 mg 4 mg Oral q8h PRN Souelvie Cruz, DO Or ondansetron (Zofran) injection 4 mg 4 mg IntraVENous q6h PRN Soumacarolynnt Anthony, DO pantoprazole (ProtoNix) EC tablet 40 mg 40 mg Oral q AM Soumacarolynnt Anthony, DO 40 mg at 03/17/24922 rosuvastatin (Crestor) tablet 40 mg 40 mg Oral Nightly Soumajit Anthony, DO 40 mg at 03/17/242040 sodium chloride 0.9 % infusion 5-250 mL/hr IntraVENous PRN Christiana Cruz, DO spironolactone (Aldactone) tablet 25 mg 25 mg Oral Daily Marah Daren, DO 25 mg at 03/17/24 0924 thiamine (Vitamin B1) tablet 100 mg 100 mg Oral Daily Feroz Siddiqui MD 100 mg at 03/17/24 1224 ticagrelor (Brilinta) tablet 90 mg 90 mg Oral BID Bhavana Brink MD 90 mg at 03/17/24 204 Allergies: No Known Allergies FAMILY HISTORY: Psychiatric Family History: Denies Family history of suicide:Denies SOCIAL HISTORY: Relationship status: Single, denies ever being Children: Has a son that she is not in frequent contact with Living situation: Currently living alone in a trailer Level of education: 10th grade, dropped out to take care of mother Occupation: unemployed, disabled service:Denies Legal history:Denies Trauma history: Patient deferred discussing this at this time Substance Use History: Nicotine: ~2ppd Alcohol:Denies Recreational Drugs: Denies PSYCHIATRIC EXAMINATION: Vitals: Vitals: 03/18/24 0801 BP: Pulse: Resp: 16 Temp: SpO2: Physical Examination: Constitutional: well developed, ill appearing, but non-toxic, alert, and obese Musculoskeletal: gait Not examined Mental Status Examination: Appearance: moderately kept, appears slightly older than stated age, in hospital attire Attitude toward examiner: Difficult to engage. Poor eye contact Behavior/motor: No psychomotor agitation or retardation, no tremor or other abnormal movements. Speech: Regular rate, rhythm, volume and articulation Mood: "Depressed" Affect: Dysphoric, constricted Thought process: Linear, goal directed Thought content: Mood congruent Thought perception: No perceptual abnormalities noted Suicidal ideation:Denies Homicidal ideation: Denies Cognition: oriented to person Memory: Not formally tested due to poor participation Insight: fair Judgment: appropriate DATA REVIEWED: Prior records have been reviewed in EMR Encounter Date: 03/15/24 ECG 12 lead Result Value Heart Rate 85 QRSD Interval 90 QT Interval 410 QTC Interval 487 P [place] -44 QRS [place] 154 T Wave [place] 96 [place] Interval 150 Impression Sinus rhythm Right axis deviation Abnormal T, consider ischemia, lateral leads ST elevation, consider inferior injury Labs: Recent Results (from the past 24 hour(s)) Transthoracic echocardiogram (TTE) complete with contrast, bubble, strain, and 3D PRN Collection Time: 03/17/24 10:22 AM Result Value Ref Range IVSd 1.4 (A) 0.6 - 0.9 cm LVIDd 5.0 3.9 - 5.3 cm LVIDs 3.5 cm LVOT Diameter 1.7 cm LVPWd 1.3 (A) 0.6 - 0.9 cm EF BP 65 55 - 100 % LV Ejection Fraction A2C 67 % LV Ejection Fraction A4C 63 % LV EDV A2C 147 mL LV EDV A4C 169 mL LV EDV BP 163 (A) 56 - 104 mL LV ESV A2C 48 mL LV ESV A4C 62 mL LV ESV BP 56 (A) 19 - 49 mL LVOT Cardiac Output 3.7 liter/minute LVOT Peak Gradient 5 mmHg LVOT Mean Gradient 3 mmHg LVOT SV 37.2 ml LVOT Peak Velocity 1.2 m/s LVOT VTI 16.4 cm RV Mid Dimension 3.3 cm RV Basal Dimension 4.1 cm LA Diameter 4.5 cm LA Volume A/L 79 mL LA Volume 2C 81 (A) 22 - 52 mL LA Volume 4C 68 (A) 22 - 52 mL LA Volume BP 74 (A) 22 - 52 mL RA Area 4C 37.0 mL RA Area 4C 34.7 mL LV E' Lateral Velocity 6 cm/s LV E' Septal Velocity 6 cm/s TAPSE 2.2 1.7 cm Ascending Aorta 3.1 cm Aortic Root 2.3 cm Fractional Shortening 2D 30 28 - 44 % LV ESV Index BP 29 mL/m2 LV EDV Index BP 85 mL/m2 LV ESV Index A4C 32 mL/m2 LV EDV Index A4C 88 mL/m2 LV ESV Index A2C 25 mL/m2 LV EDV Index A2C 77 mL/m2 LVIDd Index 2.60 cm/m2 LVIDs Index 1.82 cm/m2 LV RWT Ratio 0.52 LV Mass 2D 276.4 (A) 67 - 162 g LV Mass 2D Index 144.0 (A) 43 - 95 g/m2 LA Volume Index BP 39 16 - 34 ml/m2 LA Volume Index A/L 41 16 - 34 mL/m2 LVOT Stroke Volume Index 19.4 mL/m2 LVOT Area 2.3 cm2 LA Volume Index 2C 42 (A) 16 - 34 mL/m2 LA Volume Index 4C 35 (A) 16 - 34 mL/m2 LA Size Index 2.34 cm/m2 LA/AO Root Ratio 1.96 Ao Root Index 1.20 cm/m2 Ascending Aorta Index 1.61 cm/m2 POCT glucose meter Collection Time: 03/17/24 1:11 PM Result Value Ref Range Glucose 369 (H) 70 - 100 mg/dL POCT glucose meter Collection Time: 03/17/24 5:42 PM Result Value Ref Range Glucose 287 (H) 70 - 100 mg/dL POCT glucose meter Collection Time: 03/17/24 8:40 PM Result Value Ref Range Glucose 242 (H) 70 - 100 mg/dL CBC auto differential Collection Time: 03/18/24 1:30 AM Result Value Ref Range Auto WBC 14.1 (H) 3.6 - 10.7 10*3/uL RBC 4.89 3.80 - 5.20 10*6/uL Hemoglobin 14.0 11.7 - 16.0 g/dL Hematocrit 42.5 35.0 - 47.0 % MCV 86.9 77.0 - 99.0 fL MCH 28.6 26.0 - 34.0 pg MCHC 32.9 30.5 - 36.0 % RDW 13.6 11.5 - 15.0 % Platelets 190 140 - 440 10*3/uL MPV 12.8 (H) 9.0 - 12.7 fL nRBC 0.0 0.0 - 2.0 /100 WBCs Neutrophils Relative 63.5 38.0 - 82.0 % Lymphocytes Relative 22.7 15.0 - 45.0 % Monocytes Relative 10.9 5.0 - 13.0 % Eosinophils Relative 2.2 0.0 - 6.0 % Basophils Relative 0.2 0.0 - 2.0 % Immature Grans % 0.5 0.0 - 2.0 % Neutrophils Absolute 8.9 (H) 1.8 - 7.5 10*3/uL Lymphocytes Absolute 3.2 1.0 - 4.3 10*3/uL Monocytes Absolute 1.5 (H) 0.0 - 0.9 10*3/uL Eosinophils Absolute 0.3 0.0 - 0.5 10*3/uL Basophils Absolute 0.0 0.0 - 0.2 10*3/uL Immature Grans Absolute 0.1 (H) <0.1 10*3/uL Comprehensive metabolic panel Collection Time: 03/18/24 1:30 AM Result Value Ref Range SODIUM 134 (L) 135 - 145 mmol/L POTASSIUM 3.8 3.5 - 5.1 mmol/L CHLORIDE 105 98 - 107 mmol/L CARBON DIOXIDE 24 22 - 30 mmol/L ANION GAP 5 3 - 13 mmol/L UREA NITROGEN 16 7 - 17 mg/dL CREATININE 0.85 0.52 - 1.04 mg/dL GLUCOSE 206 (H) 70 - 100 mg/dL CALCIUM 8.8 8.4 - 10.4 mg/dL AST (SGOT) 67 (H) 15 - 46 U/L ALT 27 0 - 34 U/L ALKALINE PHOSPHATASE 115 38 - 126 U/L ALBUMIN 3.7 3.5 - 5.0 g/dL BILIRUBIN, TOTAL 1.0 0.2 - 1.3 mg/dL TOTAL PROTEIN 7.3 6.3 - 8.2 g/dL eGFR 82.6 >60.0 mL/min/1.73m*2 Magnesium Collection Time: 03/18/24 1:30 AM Result Value Ref Range MAGNESIUM 2.0 1.6 - 2.3 mg/dL Phosphorus Collection Time: 03/18/24 1:30 AM Result Value Ref Range PHOSPHORUS 3.1 2.5 - 4.5 mg/dL POCT glucose meter Collection Time: 03/18/24 9:16 AM Result Value Ref Range Glucose 242 (H) 70 - 100 mg/dL PDMP records have been reviewed ASSESSMENT: Patient is a 53-year-old female with a past medical history significant for T2DM, HLD, CAD, HTN, arthritis, tobacco use, and depression who is presenting to the hospital status post PCI. Psychiatry was consulted for evaluation of depression. Inpatient psychiatric hospitalization not presently indicated given that she does not display a high risk for suicide. We will continue to follow while the patient is in the hospital to address any new concerns that may arise. Diagnostic Impression: Unspecified mood disorder R/O Major depressive disorder, recurrent episode, moderate vs Persistent depressive disorder Risk of harm to self: Low Risk -- Risk factors include: Depression, History of not adhering to treatment or medication regimen , Hopelessness , Lack of outpatient care , Medical illness comorbidity , and Unwillingness to seek help Protective factors include:Denies current suicidal ideation, Denies history of suicide attempts , Future-oriented talk , Interpersonal relationships and supports, e.g., family, friends, peers, community , and Restricted access to firearms or other lethal means of suicide Risk of harm to others: low - No significant risk factors identified on screening RECOMMENDATIONS: Inpatient psychiatric hospitalization not presently indicated. Medications: Patient declined medications at this time Labs: None to be ordered by psychiatry Studies: None to be ordered by psychiatry Delirium precautions: Avoid sedating/anticholinergic medications, encourage sleep hygiene, minimize barriers to nutrition, optimize sensory input and access to assistive devices (dentures, glasses, etc) where indicated, encourage time up in chair as able, D/c Saenz, restraints, IV lines, as able and reserve agitation PRNs for instances where patient is danger to self/others/treatment. Recommendations shared with primary team. Follow up: Will follow Pt seen and discussed with attending psychiatrist, Dr. Bartlett, who agrees with above recommendations. Associated attestation - Ole Bartlett MD - 03/19/2024 8:21 AM EDT I saw and evaluated the patient, participating in the nino portions of the service. I reviewed the resident s note. I agree with the resident s findings and plan. Ole Bartlett MD Associated Order(s): IP CONSULT TO CARDIAC REHAB; IP CONSULT TO CARDIAC REHAB Received referral and reviewed chart. Unable to discuss Phase II Cardiopulmonary Rehab Referral with Neil Wellington at this time. Will follow to discuss program when appropriate. Patient will be contacted at home if discharged prior to discussion. Associated Order(s): IP CONSULT TO ENDOCRINOLOGY Department of Internal Medicine Division of Endocrinology, Diabetes, & Metabolism Endocrinology Note Patient Name: Neil Wellington : 1970 AGE: 53 y.o. Room/Bed: T1-111/T1-111 A Admission Date: 03/15/2024 Visit Date: 03/17/2024 Reason for Endocrine Consult: uncontrolled DM Provider/Team Requesting Consult: Cardiology PCP: Luz E Mcdermott Outpt Peanut Cleaner: No ASSESSMENT: Uncontrolled DM2 Med noncompliance NSTEMI-stents placed 03/16/24 CKD 3 Depression Tobacco abuse HTN/HLP Poor vision Psoriatic arthritis PLAN: Increase lantus to 18 units Add Humalog 6 units before meals Continue Humalog low dose SS Discontinue night Humalog Psych consult for depression ICU goal <180 GMF goal <150 POCT BG ACHS Hypoglycemia management per protocol Carb controlled diet ANTICIPATED ENDOCRINE HOME GOING RECOMMENDATIONS: Optimized for Discharge from Endocrine standpoint: No Home Going Endocrine Rx Recommendations-- TBD--patient has not taken any medications for more than 1 year Outpt Follow Up-- PCP SUBJECTIVE/HPI: CHIEF COMPLAINT: No chief complaint on file. Patient presented to [facility] ED with CP radiating down left arm and jaw pain started 03/13/24 Patient transferred from [facility] had there -for NSTEMI--for CABG vs stents--patient declines surgery Had heart cath and stents placed at [facility] 03/16/24 EF improved on ANNY after stents placed ( was 44% at [facility]) Today patient is resting in bed, barely opens eyes Endorses not taking any medications ordered for more than year Reviewed PCP not from care everywhere 07/2023 states depression reason for not taking medications--patient states ahe did npot follow up with PCP at that visit was advised ED for HTN and patient refused--states memory issues at that time--does not look like mediction for depression was discussed Today she says she does not care Reviewed A1c and need for insulin here but we need to discuss plan. Patient just states I don't care several times in trying determine what plan of treatment she is willing to do--discussed with Dr Caal will place psych consult Asked about appetite and what she ate--I don't remember Per nursing ate eggs and hungarian toast for BF Type of DM: DM2 Onset of DM: age 51 Home DM Medication Regimen: was ordered but not clear if she ever took regularly DM control (last A1c/glucose data): Lab Results Component Value Date HGBA1C 13.3 (H) 03/16/2024 Glucose Date/Time Value Ref Range Status 03/17/2024 09:05 AM 255 (H) 70 - 100 mg/dL Final 03/16/2024 08:41 PM 286 (H) 70 - 100 mg/dL Final 03/16/2024 05:33 PM 209 (H) 70 - 100 mg/dL Final 03/16/2024 08:12 AM 203 (H) 70 - 100 mg/dL Final 03/15/2024 10:56 PM 149 (H) 70 - 100 mg/dL Final Review of Systems Respiratory: Negative for chest tightness and shortness of breath. Cardiovascular: Negative for chest pain. Endocrine: Positive for polydipsia and polyuria. Skin: Negative for wound. Neurological: Negative for numbness. Psychiatric/Behavioral: Per chart reports depression but not treated since not taking any medications ROS negative except for those mentioned in HPI. OBJECTIVE: Vitals: 03/17/24 1005 03/17/24 1031 03/17/24 1100 03/17/24 1200 BP: (!) 152/102 157/73 148/72 BP Location: Patient Position: Pulse: 95 89 97 Resp: 16 Temp: TempSrc: SpO2: 96% 97% 95% Weight: 203 lb (92.1 kg) Height: 5' 2" (1.575 m) Physical Exam Vitals reviewed. Constitutional: Appearance: She is obese. Comments: Does not open eyes to questions, answers some questions in 1-2 words only Cardiovascular: Rate and Rhythm: Normal rate and regular rhythm. Pulses: Normal pulses. Heart sounds: Normal heart sounds. Pulmonary: Breath sounds: Normal breath sounds. Abdominal: General: Bowel sounds are normal. Musculoskeletal: General: No swelling. Normal range of motion. Cervical back: Normal range of motion. Skin: General: Skin is warm and dry. Neurological: Mental Status: She is oriented to person, place, and time. Psychiatric: Comments: States frequently to questions "I don't care" 24 hour intake/output: Intake/Output Summary (Last 24 hours) at 03/17/2024 1214 Last data filed at 03/17/2024 0935 Gross per 24 hour Intake 55 ml Output 655 ml Net -600 ml Diet: Adult diet Regular; Low Fat/Low Chol/High Fiber/2 gm Na Medications (as per EMR): HomeMeds: No current outpatient medications Scheduled Meds:aspirin, 81 mg, Oral, Daily carvedilol, 6.25 mg, Oral, BID WC ezetimibe, 10 mg, Oral, Nightly folic acid, 1 mg, Oral, Daily insulin glargine, 10 Units, SubCUTAneous, Nightly insulin lispro, 0-6 Units, SubCUTAneous, TID WC ipratropium-albuterol, 3 mL, Nebulization, TID losartan, 50 mg, Oral, Daily melatonin, 5 mg, Oral, Nightly nicotine, 1 patch, TransDERmal, Daily pantoprazole, 40 mg, Oral, q AM rosuvastatin, 40 mg, Oral, Nightly spironolactone, 25 mg, Oral, Daily thiamine, 100 mg, Oral, Daily ticagrelor, 90 mg, Oral, BID Continuous Infusions: PRN Meds:PRN medications: acetaminophen OR acetaminophen OR acetaminophen, dextrose, dextrose, glucagon (rDNA), glucose, naloxone, nitroglycerin, ondansetron ODT OR ondansetron, sodium chloride Diagnostic Workup: I reviewed pertinent Laboratory results, Radiographic results, and Other Clinical Notes at the time of today's encounter. Labs: No components found for: "LABA1C" No components found for: "EAG" Lab Results Component Value Date NA 133 (L) 03/17/2024 K 4.0 03/17/2024 CL 102 03/17/2024 CO2 24 03/17/2024 BUN 22 (H) 03/17/2024 CREATININE 0.89 03/17/2024 GLUCOSE 269 (H) 03/17/2024 CALCIUM 9.0 03/17/2024 Lab Results Component Value Date CHOL 173 03/16/2024 Lab Results Component Value Date TRIG 150 (H) 03/16/2024 Lab Results Component Value Date HDL 39 (L) 03/16/2024 Lab Results Component Value Date LDLCALC 104 (H) 03/16/2024 No results found for: "VLDL" Lab Results Component Value Date CHOLHDLRATIO 4 03/16/2024 No results found for: "[id number]" Lab Results Component Value Date TSH 1.923 03/16/2024 Radiology reportsas per the Radiologist Radiology: POCT glucose meter Result Date: 03/16/2024 Performed by: [facility], [address] [place] [id number] CLIA ID: [id number] POCT glucose meter Result Date: 03/16/2024 Performed by: [facility], [address] [place] [id number] CLIA ID: [id number] POCT ACT Result Date: 03/16/2024 Performed by: [facility], [address] [place] [id number] CLIA ID: [id number] POCT ACT Result Date: 03/16/2024 Performed by: [facility], [address] [place] [id number] CLIA ID: [id number] POCT ACT Result Date: 03/16/2024 Performed by: [facility], [address] [place] [id number] CLIA ID: [id number] ECG 12 lead Sinus rhythm Right axis deviation Abnormal T, consider ischemia, lateral leads ST elevation, consider inferior injury Cardiac procedure Result Date: 03/16/2024 - Successful IVUS guided PCI of ostial to mid circumflex artery with deployment of 3.0 mm x 48 mm Synergy KINGSLEY - Successful IVUS guided PCI of ostial RCA with deployment of 4.0 mm x 12 mm Xience KINGSLEY - Medical therapy for mild to moderate disease of LAD and ramus POCT glucose meter Result Date: 03/16/2024 Performed by: [facility], [address] [place] [id number] CLIA ID: [id number] POCT glucose meter Result Date: 03/15/2024 Performed by: [facility], [address] [place] [id number] CLIA ID: [id number] XR chest 1 view Result Date: 03/15/2024 Patient Name: NEIL WELLINGTON : 1970 [facility]#: [id number] Exam Date/Time: 03/15/2024 20:23 Procedure: XR CHEST 1 VIEW Ordering Provider: ORTIZ JOSEPH Reason For Exam: Shortness of breath PORTABLE CHEST: INDICATION: Shortness of breath COMPARISON: No previous studies are available for comparison. Obtained at 2020. A single portable AP radiograph of the chest was obtained. The heart is borderline in size. The mediastinal silhouette is normal. There is mild vascular congestion. No effusions or acute infiltrates. There is no pleural thickening. The osseous structures are unremarkable. Mild vascular congestion. Report Dictated on Electronically Signed By: Jordan Davies DO Electronically Signed Date/Time: 03/15/2024 10:47 PM EDT ECG 12 lead Sinus rhythm Probable left atrial enlargement Abnormal T, consider ischemia, lateral leads ST elevation, consider inferior injury History/Other: Past Medical History: History reviewed. No pertinent past medical history. Past Surgical History: History reviewed. No pertinent surgical history. Allergy(ies): No Known Allergies Family History: No family history on file. Social History: Social History Tobacco Use Smoking status: Unknown Portions of the information within this encounter were entered using an electronic dictation system. Best attempts were made to edit/proofread the information prior to note completion. Despite the review of information, some errors may remain. If there are questions related to the information contained within the note please contact the signing physician directly. I spent 30 minutes with the pt which involved coordination of care, medical evaluation, review of records, and/or counseling of the pt regarding his/her condition/disease state/prognosis on the date of this note. Associated attestation - Jazmine Caal MD - 03/17/2024 10:55 PM EDT I performed a history and physical examination of the patient. I have reviewed the patient's chart including pertinent history, medications, labs, radiology, and other reports. I reviewed the resident/AMINTA's note, agree with the documented findings and plan of care (with modifications noted if any), and discussed the management plan. Consulted for: DM Pt admitted for CAD mx from [facility]. Pt had NSTEMI, EF 40%, LHC showed MV-CAD. Pt recommended CABG but she refused. She underwent PCI/stent placement 03/16/24. Pt has uncontrolled T2DM dx 2021, supposed to be on Trulicity, metformin, and Jardiance. She states she took these meds before for a short period but has not taken them in >1 yr. Denied s/e or cost/access issues. She states she just did not want to take them. Also poorly compliant with the rest of her meds. She has Liset at home with reader; has not been using. Poor diet; drinks regular pop. Smokes. Lives with boyfriend who is currently incarcerated. She has vision problems. She has arthritis. BG have been >200. Pt was very disinterested and disengaged. She denies SI but has been very depressed. No family in the area. No other support system. Pt was struggling with eating her lunch due to poor vision and decreased dexterity and ROM. Adult diet Regular; Low Fat/Low Chol/High Fiber/2 gm Na Lab Results Component Value Date HGBA1C 13.3 (H) 03/16/2024 Estimated Creatinine Clearance: 78.1 mL/min (by C-G formula based on SCr of 0.89 mg/dL). BP 127/68 (BP Location: Left arm, Patient Position: Lying) Pulse 81 Temp 36.2 C (97.2 F) (Temporal) Resp 16 Ht 5' 2" (1.575 m) Wt 203 lb (92.1 kg) SpO2 95% BMI 37.13 kg/m Obese, disheveled, awake, alert, not in distress, RRR, intact pulses, clear breath sounds, no rales, abdomen soft, nontender, no open skin lesions, no edema, no focal deficits, depressed, flat affect. Dx: Type 2 DM with complications, uncontrolled, on long-term insulin Type 2 DM with hyperglycemia CAD/NSTEMI s/p PCI Depression Poor compliance with therapy Tobacco abuse Vision impairment Psoriatic arthritis Plan: -pt with poorly controlled DM due to poor cmpliance, possibly contributed by depression -will increase Lantus to 18 and start Humalog 6 units TID + low dose SS --- will increase further starting radha to Humalog 8 units TID and mod dose SS -closely monitor BG; adjust doses as necessary -management of hypoglycemia per protocol -counseled pt on DM management; reviewed DM complications -carb controlled diet -will benefit from DSME -will need to determine a simple DM regimen for pt due to physical limitations -will consult Psych due to ongoing depression and poor compliance significantly affecting health -tobacco cessation Anticipated homegoing regimen: possibly resume Trulicity, metformin, Jardiance FU with Endocrinology outpatient. Total time 50 minutes which include review of records, counseling, management, and coordination of care as documented in note. Associated Order(s): IP CONSULT TO CARDIOTHORACIC SURGERY Images from the original note were not included. [facility]: Cardiothoracic Surgery Consultation Note PATIENT NAME: Neil Wellington : 1970 (53 y.o.) TODAY'S DATE: 03/16/2024 DATE OF ADMISSION: 03/15/2024 7:36 PM Reason for Consult: Multivessel CAD Consulting Provider: Dr. Ortiz Subjective: CC: Chest pain, SOB HPI: 53 yo female with PMH of HFrEF (LVEF 40% on TTE 03/15/24), T2DM, HTN, HPL, CKD stg III, COPD, tobacco use (2PPD), obesity. She presented to [facility] on 03/13/24 with c/o chest pain with radiation to left arm and jaw along with SOB. She had a similar episode approx 1 year ago, underwent cath at [facility], unable to recall if an intervention was performed. In [facility] ED workup showed patient was hypertensive with SBP in 200s, BG 498, Cr- 1.34, initial troponin elevated. She underwent a LHC which demonstrated multivessel CAD including LAD 30-40% stenosis and JULISSA 3 flow, ostial ramus intermedius 60-70%, ostial LCx ~70% stenosis, mid-left LCx after OM1 segment occluded. She was transferred to [facility] for high risk PCI vs CABG. Patient seen while resting in bed. She answered questions with mostly one-word answers and kept eyes closed for most of conversation. Did state she did not want to undergo surgery. Would not be interested in CABG. Review of Systems Constitutional: Positive for fatigue. Negative for activity change and fever. Eyes: Negative for visual disturbance. Respiratory: Negative for cough, chest tightness and shortness of breath. Cardiovascular: Negative for chest pain, palpitations and leg swelling. Gastrointestinal: Negative for abdominal pain, nausea and vomiting. Musculoskeletal: Negative for gait problem. Skin: Negative for wound. Neurological: Negative for speech difficulty and weakness. Psychiatric/Behavioral: Positive for decreased concentration. Negative for confusion and sleep disturbance. The patient is not nervous/anxious. Allergies: Patient has no known allergies. Past Medical History: has no past medical history on file. Past Surgical History: has no past surgical history on file. Social History: Family History: Patient is not aware of any family hx of CAD Medications: Prior to Admission medications Not on File Objective: Vitals: BP: 121/78, MAP (mmHg): 91, BP Method: Automatic Heart Rate: 73 Resp: 25 Temp: 36.9 C (98.4 F), Temp Source: Temporal BMI (Calculated): 37.69 Intake/Output Summary (Last 24 hours) at 03/16/2024 0758 Last data filed at 03/15/2024 2304 Gross per 24 hour Intake -- Output 300 ml Net -300 ml Physical Exam Constitutional: General: She is not in acute distress. Comments: answers some questions HENT: Head: Normocephalic and atraumatic. Right Ear: External ear normal. Left Ear: External ear normal. Nose: Nose normal. Mouth/Throat: Dentition: Abnormal dentition. Eyes: General: Lids are normal. Conjunctiva/sclera: Conjunctivae normal. Cardiovascular: Rate and Rhythm: Normal rate and regular rhythm. Heart sounds: Normal heart sounds. No murmur heard. Pulmonary: Effort: Pulmonary effort is normal. No accessory muscle usage. Breath sounds: Normal breath sounds. No wheezing or rhonchi. Abdominal: General: Bowel sounds are normal. Tenderness: There is no abdominal tenderness. Musculoskeletal: Right lower leg: No edema. Left lower leg: No edema. Skin: General: Skin is warm. Capillary Refill: Capillary refill takes less than 2 seconds. Findings: No lesion, rash or wound. Comments: Color normal for ethnicity Psychiatric: Attention and Perception: She is inattentive. Diagnostics: Reviewed in EMR Labs: Reviewed in EMR BMP: Recent Labs 03/15/24224603/16/24 0157 NA 137 138 K 4.1 3.9 CL 102 105 CO2 29 27 BUN 19* 21* CREATININE 0.96 0.96 CALCIUM 9.6 9.2 MG 1.8 -- PHOS 4.4 -- CBC: Recent Labs 03/15/24224603/16/24 0454 WBC 15.8* 16.2* HGB 15.9 14.6 HCT 48.1* 45.0 PLT 231 203 MCV 89.6 88.6 RDW 13.7 13.7 Assessment: Multivessel CAD NSTEMI T2 DM HTN HPL COPD CKD stg III Tobacco abuse (2 PPD) Plan: Patient states she does not wish to undergo surgical intervention, she refused CABG at this time Recommend alternative management to CAD (PCI per interventional cardiology) If patient changes her mind on CABG, please notify oncall CTS provider Will sign off treatment team Personally Reviewed: [x]Epic notes [x]Radiology studies [x]Labs [x]EKG []Other A total of 30 minutes were spent between the byoe-id-vtag encounter, physical exam, reviewing the medical history, coordinating the patient's care, counseling/educating the patient, ordering medications/test/procedures, interpreting results and documenting clinical information in the patients electronic health record on the day of the encounter. The patient was seen and examined independently and relevant data reviewed by myself. A full chart review was performed. Associated attestation - Yaniv Bishop MD - 03/27/2024 9:12 AM EDT DOS: 03-16-24 I personally performed a mcmj-md-uvjk diagnostic evaluation on this patient I agree with the findings and plan of care as documented by the AMINTA or resident. There has been no change in the physical exam or findings unless otherwise noted below. A total of 80 minutes were spent between the skiy-nu-rgyt encounter, physical exam, reviewing the medical history, coordinating the patient's care, counseling/educating the patient, ordering medications/test/procedures, interpreting results and documenting clinical information in the patients electronic health record on the day of the encounter. The patient was seen and examined independently and relevant data reviewed by myself. A full chart review was performed. documented in this encounter [facility] 03-20-2024 Note [facility] via [facility] per [facility] request. Await review and response regarding ability to accept. TCC notified. Electronically signed by KASIA Barajas. [facility] 03-20-2024 Note Spoke with patient a t bedside to discuss PT recommendation of IPR. Patient agreeable, choice provided, would like [facility]. Task to [facility] to place referral. [facility] 03-18-2024 Hospital Discharge instructions Henny Chong, POISER - ELECTRICAL CAD DESIGNER - 03/18/2024 10:32 AM EDT Expect a phone call within 72 hours post discharge. If you have questions, issues, or concerns please call or text the Ischemic Heart Disease Hotline, this is a cell phone, # [phone] (available 17/04) Post Cardiac Catheterization/Wrist Site Care Call your doctor with any medication questions or if you notice any side effects from your medications. If you are unable to fill your medications, please call your Contact Finger Assembler immediately. The office number is located with your follow-up appointment information. Call your doctor if any redness or drainage from the wound site. DO NOT stop taking your medication unless instructed to do so by your doctor. No alcoholic beverages for 24 hours. It may interfere with healing. No exercise or sex for 5 days. Call your doctor if a lump at the puncture site enlarges or is larger than marble size. Call your doctor for numbness, tingling, or swelling of the fingers, hand or wrist. Call your doctor for increased area or bruising with discoloration extending into the arm. If bleeding occurs, hold pressure with your thumb against the puncture site and your finger against the back of the wrist for 10 minutes, if BLEEDING continues CALL 911. OK to shower. No tub baths, swimming pools or hot tub soaking for 3 days. Wash site daily with soap and water, dry gently. The healing wound should remain soft and dry. Keep site clean and dry, no soaking of wrist for 3 days (no cleaning or dish washing). Remove band aid the day after procedure and leave open to air. No bending of affected wrist for 24 hours. DO NOT lift more than 3 pounds for 3-5 days[address] No driving for 24 hours. ACUTE CORONARY SYNDROME (Heart attack, Myocardial Infarction [STEMI/NSTEMI], unstable angina): situations where the blood supplied to the heart muscle is severely reduced or blocked (the blockage can be a narrowing or sudden and complete). Then the section of the heart muscle supplied by that artery can be damaged. The amount of damage increases the longer an artery stays blocked and in some cases, it may even . The amount of damage to the heart muscle depends on the size of the area supplied by the blocked artery and the time between injury and treatment. Risk Factors Cannot Change [] Age [] Gender [] Family history of heart disease Can Change [] Tobacco use (cigarettes, chewing, vape) [] Diabetes [] High cholesterol [] Sedentary lifestyle [] Poor diet [] For women, a History of high blood pressure, pre-eclampsia or diabetes during GREEN ZONE: All Clear- Your Symptoms Are Under Control No increase in frequency or severity of chest pain No increased shortness of breath No lightheadedness or dizziness This Means You Should: Continue taking your medications as prescribed Continue activity as tolerated Exercise regularly or as recommended by your physician Eat a healthy diet low in saturated and trans fat, limiting alcohol and caffeine Maintain a healthy weight Keep all doctor appointments Avoid smoking YELLOW ZONE: Caution Chest pain, pressure or tightness - return of symptoms similar to what brought you to the hospital Pain radiating into your neck, jaw or arm Shortness of breath Nausea or heavy sweating Lightheadedness or dizziness Any side effects from your medications Uneasy feeling or that something is wrong This Means You Should: Call/text the Ischemic hotline [phone] or your doctor's office for further instructions RED ZONE: Medical Alert Chest pain/pressure/discomfort or pain in the neck, jaw, arm, upper back that is lasting longer than 5 minutes OR NOT relieved after nitroglycerin (if prescribed) Severe shortness of breath Passing out or fainting This Means You Should Call 911 Immediately Heart-Healthy Life-Style Modifications Take your medications as prescribed Quit smoking ([email or web address]) Control your blood sugar Treat high-blood pressure Eat a heart-healthy diet, low in saturated and trans-fat, sodium and added sugars Exercise regularly Achieve and maintain a healthy weight Keep your follow-up appointments Ask Your Provider Before You Take New medications Tknf-yev-vldasva drugs, nutrition supplements or herbal therapies Avoid nonsteroidal anti-inflammatory drugs (NSAIDS). Example are ibuprofen (Advil , Motrin ) and naproxen (Aleve , Naprosyn ). Acetaminophen (Tylenol ) is recommended to relieve aches, pains and/or fever. Avoid decongestants, such as pseudoephedrine (Sudafed ). If you have any questions about whether it is safe to take a medicine, ask your doctor, nurse, or pharmacist. Cardiac Rehab The Cardiac Rehab team at [facility] consists of highly skilled exercise physiologists, nurses, respiratory therapists and physicians working together with you. Our purpose is to help you have a full recovery and achieve the goals you set for yourself. Over the years many of our patients have returned to activities they assumed they would never do again! We can help restore your confidence and motivation to make lifestyle changes that can have a significant impact on your health and quality of life! We can help answer questions and concerns you may have about exercise, lifestyle, medications, diet, stress and anxiety which are common following a hospitalization. We monitor ECG and vital signs during exercise and discuss your progress with you and report to your physician. Cardiac Rehab is proven to help reduce readmissions, improve functional capacity and lower recurrence of problems with your heart. We have facilities at both [facility] and [facility]. At both locations we have street level parking which is free and our sites are easily accessible. For both [facility] you can contact us at . We invite you to call us with your questions or to get started in our program. If you have other questions or concerns be sure to ask your provider during your follow up visit. We look forward to seeing you there. Our locations: [facility] [address] [facility] [address] [facility] [id number] - [facility] Martita Aceves RN - 03/21/2024 10:39 AM EDT Images from the original note were not included. Continuity of Care Form Patient Name: Neil Wellington : 1970 Admit date: 03/15/2024 Discharge date: 03/27/2024 Code Status Order: Full Code Advance Directives: N Admitting Physician: Jase Ortiz DO PCP: Luz Mcdermott Discharging Nurse: TIAN Anders Discharging Hospital Unit/Room#: T1-111/T1-111 A Discharging Unit Phone Number: [phone] Emergency Contact: Extended Emergency Contact Information Primary Emergency Contact: Yanna Jiménez Relation: Significant Other Preferred language: Togolese Director Index needed? No Secondary Emergency Contact: Eliz Quiroga Relation: Brother Past Surgical History: Past Surgical History: Procedure Laterality Date CARDIAC CATHETERIZATION N/A 03/16/2024 Performed by Maximo Max MD at [facility] Cardiac Cath/EP Lab CARDIAC CATHETERIZATION N/A 03/16/2024 Performed by Maximo Max MD at [facility] Cardiac Cath/EP Lab CARDIAC CATHETERIZATION N/A 03/16/2024 Performed by Maximo Max MD at [facility] Cardiac Cath/EP Lab Immunization History: There is no immunization history on file for this patient. Active Problems: Medical Problems Problem List * (Principal) NSTEMI (non-ST elevated myocardial infarction) (HCC) Type 2 diabetes mellitus without complication, without long-term current use of insulin (CMS/HCC) (HCC) Psoriatic arthritis (HCC) ASCUS with positive high risk HPV cervical Chronic systolic (congestive) heart failure (HCC) SHAN III (cervical intraepithelial neoplasia grade III) with severe dysplasia Overview Signed 03/16/2024 6:20 AM by Bhavana Brink MD S/p LEEP Cornea ulcer S/P coronary artery stent placement Altered mental status, unspecified Lacunar cerebrovascular accident (CVA) (HCC) Uncontrolled type 2 diabetes mellitus with hyperglycemia (HCC) Isolation/Infection: No active isolations No active infections Nurse Assessment: Last Vital Signs: BP 138/99 (BP Location: Left arm, Patient Position: Lying) Pulse 87 Temp 37.2 C (98.9 F) (Temporal) Resp 20 Ht 1.575 m (5' 2") Wt 91.5 kg (201 lb 11.5 oz) SpO2 94% BMI 36.90 kg/m Last documented pain score (0-10 scale): Last Weight: Wt Readings from Last 1 Encounters: 03/21/24 91.5 kg (201 lb 11.5 oz) Mental Status: YESSI Patient Mental Status: oriented IV Access: YESSI IV Access: None Nursing Mobility/ADLs: Walking Minimal assistance Transfer Minimal assistance Bathing Minimal assistance Dressing Minimal assistance Toileting Minimal assistance Feeding Minimal assistance Waffle Machine Operator Minimal assistance Med Delivery yes Wound Care Documentation and Therapy: Puncture Site 03/18/24 Wrist Anterior;Right (Active) Location Radial - right 03/20/241999 Site Assessment No redness, drainage, swelling or hematoma 03/20/241999 Dressing Applied No 03/20/241999 Number of days: 3 Elimination: Continence: Bowel: yes Bladder: yes Urinary Catheter: None Colostomy/Ileostomy/Ileal Conduit: None Date of Last BM: 03/21/2024 Intake/Output Summary (Last 24 hours) at 03/21/2024 1039 Last data filed at 03/21/2024 0800 Gross per 24 hour Intake 840 ml Output -- Net 840 ml I/O last 3 completed shifts: In: 760 (8.3 mL/kg) [P.O.:760] Out: - (0 mL/kg) Weight: 91.5 kg Safety Concerns: history of falls (last 30 days) and at risk for falls Impairments/Disabilities: vision and hearing Nutrition Therapy: Current Nutrition Therapy: Oral diet: carb control 4 carbs/meal (1800kcals/day), low fat, low fiber, and low sodium (2gm) Routes of Feeding: oral Liquids: no restrictions Daily Fluid Restriction: no Last Modified Barium Swallow with Video (Video Swallowing Test): not done Treatments at the Time of Hospital Discharge: Respiratory Treatments: none Oxygen Therapy: is not on home oxygen therapy. Ventilator: No ventilator support Rehab Therapies: physical therapy, occupational therapy, speech therapy, nursing, and aide Weight Bearing Status/Restrictions: no restriction Other Medical Equipment (for information only, NOT a DME order): bedside commode Other Treatments: none Patient's personal belongings (please select all that are sent with patient): glasses and clothing RN SIGNATURE: MANAGEMENT/SOCIAL WORK SECTION Inpatient Status Date: 03/15/2024 Discharging to Facility/ Agency Name: [facility] Address: [address] [place] [id number] Fax: Dialysis Facility (if applicable) Name: Address: Dialysis Schedule: Phone: Fax: Melt Helper/Applications Developer signature: ICIAN SECTION Name: Neil Wellington Prognosis: fair Condition at Discharge: stable Rehab Potential (if transferring to Rehab): good, pt declined IPR, wants to go to SNF in [place] Recommended Labs or Other Treatments After Discharge: - will need follow up with endocrinology in [place], diabetes uncontrolled and insulin titrated during inpatient stay - will need ANNY and event monitor as outpatient prior to initiating anticoagulation of any kind - Will need hepatic panel within 1 week to monitor AST/ALT elevation while on atorvastatin - Consider starting Farxiga 10 mg daily in outpatient setting given history of T2DM and HF The individual is being admitted to a nursing facility directly from an [facility] or a unit of a [facility] that is not operated by or licensed by [facility] under section 5119.14 or 5160-3-15.1 5 The individual requires the level of services provided by a nursing facility for the condition for which he or she was treated in the hospital and, Physician Certification: I certify the above information and transfer of Neil Wellington is necessary for the continuing treatment of the diagnosis listed and that she requires fci facility for less than 30 days. Update Admission H&P: No change in H&P PHYSICIAN SIGNATURE: The following attachments cannot be sent through Care Everywhere.Heart Healthy Diet (Togolese)Dietary Fats (Togolese)Diabetes and Diet (Togolese)Carb Counting for Adults With Diabetes (Togolese)documented in this encounter [facility] 03-15-2024 Note [facility] 03-15-2024 History and physical note Images from the original note were not included. [facility] [place] [facility] CCU HISTORY & PHYSICAL Patient Name: Neil Wellington : 1970 Date of Admission: 03/15/2024 7:36 PM Established volleyball player: N/A Subjective: Chief Complaint: Chest pain History of Present Illness: Neil Wellington is a 53 y.o. female with significant past medical history of HFrEF (LVEF 40% on TTE 03/15/24), uncontrolled type II diabetes mellitus, hypertension, hyperlipidemia, CKD stage III, suspected COPD, chronic tobacco abuse, and obesity who presented to [facility] 03/15/[address] [facility] as a transfer for CAD management/CABG evaluation. Per [facility] notes, patient complained of chest pain with radiation to left arm and jaw that started 03/13. She described it as pressure and endorsed accompanying shortness of breath. She reported that it starting while doing house chores. She described similar chest pain a year prior for which she underwent catheterization at [facility] but could not recall whether intervention was performed; she was a poor historian. She was unaware of any familial CAD. She is a heavy smoker; 2 PPD for 40+ years. Upon arrival at [facility] ED, she was notably hypertensive with initial SBPs in the 200s, which later came down to 146. She was notably leukocytotic and erythrocytotic with WBC 11.1 and Hgb 15.5. Other labs notable for Na 131 which was deemed normal in s/o elevated BG 498, Cr 1.34, initial troponin 5221 with delta 7528. Third troponin 17,010. Lipid panel with total cholesterol 190, LDL 116, HDL 47, TG 135. TSH WNL at 3.66. EKG demonstrated no signs of acute ST-T wave changes. She was started on nitroglycerin gtt. which notably improved blood pressure and resolved her chest pain. Started on heparin gtt. as well. Admitted to telemetry floor and placed on aspirin, high-dose statin, ACEi, and metoprolol. Underwent LHC which demonstrated normal LMCA with LAD 30-40% stenosis and JULISSA 3 flow, ostial ramus intermedius 60-70% stenosis in ostial LCx with haziness of ~70% stenosis. Mid-left LCx after OM1 segment occluded. As a result of these findings, transfer to another hospital was recommended based on tightness of lesions of LCx ostium and ramus intermedius with risk of plaque shift. TTE demonstrated LVEF 40%. Patient was ultimately accepted by Dr Max from cardiology at [facility]. Upon inquiry, patient partially reinforced some of this history. She remained a poor historian. She denies chest pain currently. She has some shortness of breath and feels she needs the supplemental oxygen for now; currently on 2.5 LPM O2 via NC. Denies home oxygen use/dependence. Complains of right arm pain following her cath, but otherwise no other complaints, including fever, nausea, chills, cough, abdominal pain, dysuria, hematuria, dyschezia, hematochezia, dizziness, lightheadedness, or headaches. Endorses appetite. On exam, she appears disheveled, obese, and in mild distress. Cardiac auscultation unremarkable; normal rate, rhythm, no murmurs noted. Mild wheezing noted on upper lung barriga bilaterally. Left lower extremity notable cooler than right, otherwise b/l LEs dry, nonedematous, nonerythematous with 2+ posterior tibial pulses bilaterally. 2+ radial pulses bilaterally; remainder of extremities warm and dry. Review of Systems: Review of Systems Constitutional: Negative for chills and fatigue. Respiratory: Positive for shortness of breath. Negative for cough, choking, chest tightness and wheezing. Cardiovascular: Negative for chest pain, palpitations and leg swelling. Gastrointestinal: Negative for abdominal pain, blood in stool, diarrhea, nausea and vomiting. Genitourinary: Negative for dysuria and hematuria. Neurological: Negative for dizziness, weakness, light-headedness and headaches. Psychiatric/Behavioral: Negative for agitation. Past Medical History: No past medical history on file. Past Surgical History: No past surgical history on file. Family History: No family history on file. Social History: Allergies: Not on File Medications: No current outpatient medications Objective: Physical Examination: There were no vitals taken for this visit. No intake or output data in the 24 hours ending 03/15/242006 Physical Exam Constitutional: Appearance: She is obese. HENT: Head: Normocephalic and atraumatic. Cardiovascular: Rate and Rhythm: Normal rate and regular rhythm. Pulses: Normal pulses. Heart sounds: Normal heart sounds. Pulmonary: Effort: Pulmonary effort is normal. Breath sounds: Wheezing present. Abdominal: Palpations: Abdomen is soft. Tenderness: There is no abdominal tenderness. Musculoskeletal: General: No swelling or tenderness. Right lower leg: No edema. Left lower leg: No edema. Skin: General: Skin is dry. Comments: Left lower extremity cool to touch, remainder of extremities warm. Neurological: Mental Status: She is alert and oriented to person, place, and time. Psychiatric: Mood and Affect: Mood normal. Behavior: Behavior normal. Laboratory Tests: BMP: No results found for: "NA", "K", "CL", "CO2", "BUN", "CREATININE", "GLUCOSE", "CALCIUM", "MG", "PHOS" CBC: No results found for: "WBC", "HGB", "HCT", "MCV", "PLT" Cardiac profile: No results found for: "BNP", "TROPONINI" Coagulation: No results found for: "PROTIME", "INR", "APTT" Lipid panel: No results found for: "CHOL", "HDL", "LDLCALC", "TRIG" Other: No results found for: "HGBA1C", "TSH" Chest Imaging: CXR: CT Chest wo contrast: CTA Chest w and wo contrast: Cardiac Studies: Telemetry findings: Last EKG: No results found for this or any previous visit. Last Echo: No results found for this or any previous visit. Last Cath: No results found for this or any previous visit. Last Stress Test: No results found for this or any previous visit. Last EP study: No results found for this or any previous visit. Assessment/Plan NSTEMI CAD [facility] 03/15/24 demonstrating extensive LCx and ramus disease Patient presented with symptoms of pressurized chest pain with radiation to left arm and jaw and accompanying shortness of breath, initially placed on nitroglycerin gtt. which resolved initial hypertension on presentation as well as chest pain EKG at [facility] demonstrated no acute ST-T changes; will obtain repeat EKG for re-evaluation here at [facility] demonstrated significant LCx and ramus stenoses; deemed high risk PCI Plan: Will consider CT surgery consult for CABG evaluation tomorrow (03/16) No need for nitroglycerin gtt. currently given lack of chest pain, will have sublingual nitroglycerin 0.4 mg tabs available PRN Initiate heparin gtt. Initiate aspirin 81 mg daily Initiate rosuvastatin 40 mg daily HFrEF (LVEF 40% on TTE 03/15/24) TTE at [facility] demonstrated LVEF 40%; other features not elucidated on report; will try obtaining formal TTE report Patient does not currently appear volume overloaded on exam, however cannot r/o patient's SOB 2* fluid in lungs Plan: Obtain CXR for further evaluation Initiate some HFrEF GDMT: Losartan 25 mg daily Metoprolol succinate 25 mg daily Type II diabetes mellitus Hyperglycemia On 10 U Lantus nightly at home, will continue here LDSSI + hypoglycemia protocol Diabetic + low sodium diet Hypertension Continue aforementioned HFrEF regimen Hyperlipidemia Continue aforementioned statin Suspected COPD Suspected VALENTIN DuoNebs TID Consider outpatient PFTs and PSG Work on weaning supplemental O2 CKD stage III Avoid nephrotoxic agents as best as possible, eg abstinence from NSAIDs Tobacco abuse Heavy smoker, 2 PPD for 40+ years 24-hour transdermal nicotine 21 mg patch nightly - Goals of Care: Full Code - DVT Prophylaxis: Heparin - GI Prophylaxis: Protonix daily - Diet: Carb-Control and Low-Sodium - BMI Classification: There is no height or weight on file to calculate BMI. - Disposition: Admit to CCU. Associated attestation - Jase Ortiz DO - 03/16/2024 10:03 AM EDT The patient sustained a NSTEMI and was cared at [facility]. Cath was performed there and I reviewed the study. Currently pain free. Limited echo reports a 40% EF (needs confirmation). ECG shwos NSR with high lateral T wave inversions no ST depression. CXR c/w significant tobacco use. No heart failure. Labs look OK. The cath shows some ostial LMT disease This does not look severe to me and it was not more thoroughly interrogated with IVUS or iFR/FFR. The LAD has mid diffuse disease with small to moderate sized diagonals that are mildly diseased. The Cx mostly consists of a moderate size high lateral branch with moderated to severe disease and may have been the culprit. The RCA is large. I believe there is a severe ostial stenosis and some distal disease. CT surgery has seen her and she told them she did not want bypass. I discussed options with her and she is not engaging an any decision making. My recommendation would be as follows: Recath and reevaluate LMT more thoroughly. If significant stenosis, CABG would be a reasonable option especially if LVD confirmed. If she refuses, PCI ostial LMT and RCA and perhaps the Cx (assuming she will conform to DAPT requirements and this is a credible unknown in her). GDMT with DAPT, and smoking cessation, which is absolutely causative here and needs to be stopped, or she will continue to have recurrent event. She has significant hyperlipidemia that apparently has not been treated. We will initiate therapies. LP(a) assessment underway. We will discuss with the Interventional Service. Patient seen and examined independently by me. Above discussed and I agree with resident and or fellow note except where indicated in the EMR revision history. Also see my additional comments and changes indicated by discrete font, text color, italics, and/or initials. Labs, cultures, and radiographs where available were personally reviewed. Changes were made in the orders as necessary. I discussed patient concerns with all appropriate caregivers and instructions were given. Please see our orders for the updated patient care plan. documented in this encounter [facility] 04-06-2022 History of Present illness Narrative Discharge paperwork reviewed with patient. Follow up appts reviewed, new medications reviewed. Patient had a ride. Transport called. Tele pack removed and returned to monitor room. Assessment documented. Vital signs stable. Meds taken well. Denies any discomfort or pain. Right wrist dressing is clean, dry and intact, no numbness or pain. Call light within reach. BP 139/73 Pulse 74 Temp 97.7 F (36.5 C) (Oral) Resp 18 Ht 5' 3" (1.6 m) Wt 209 lb (94.8 kg) SpO2 93% BMI 37.02 kg/m ENDO CONSULT CALLED TO DR SMITH/ GÉNESIS EDDY VIA PERFECT SERVE Neil Wellington, seen for evaluation and education on Type 2 uncontrolled. Lab Results Component Value Date LABA1C 10.0 (H) 04/03/2022 No results found for: EAG Neil Wellington has had diabetes for unknown by patient years. Discussed with Neil Wellington, their current diabetes self-care routines prior to this admission. medication compliance: taking nothing at home, diabetic diet compliance: noncompliant much of the time, home glucose monitoring: is not performed Survival Skill Topics discussed: [x] Type 2 Diabetes diagnosis as chronic and progressive [] Type 1 Diabetes diagnosis [x] Eating healthy - [x] plate method [] portion control [] label reading [] carb counting [x] sources of carbohydrates Assessment of current status: [x] Needs instruction [] Needs review [] Comprehends nino points [] Demonstrates understanding/competence [] Not covered Neil did give up mountain dew , SN encouraged water [x] Being active current recommendations and safety Assessment of current status: [] Needs instruction [] Needs review [] Comprehends nino points [] Demonstrates understanding/competence [x] Not covered [x] Medications current medications: action, side effects, precautions Patient's medications: no homegoing plans in notes , she was not taking anything for her diabetes at home Assessment of current status: [] Needs instruction [] Needs review [] Comprehends nino points [] Demonstrates understanding/competence [x] Not covered [x] Monitoring frequency & targets . Assessment of current status: [x] Needs instruction [] Needs review [] Comprehends nino points [] Demonstrates understanding/competence [] Not covered [x] Signs and symptoms of hypo/hyperglycemia, and Rule of 15 handouts provided. Assessment of current status: [] Needs instruction [] Needs review [] Comprehends nino points [] Demonstrates understanding/competence [x] Not covered [x] Sick day management handout provided [] Testing for ketones Assessment of current status: [] Needs instruction [] Needs review [] Comprehends nino points [] Demonstrates understanding/competence [x] Not covered [x] Overview of chronic complications and how to prevent them from occurring Assessment of current status: [] Needs instruction [] Needs review [] Comprehends nino points [] Demonstrates understanding/competence [x] Not covered [x] Use of insulin: [] Previous use of insulin - Patient currently taking: ____ Assessment of current status: [] Needs instruction [] Needs review [] Comprehends nino points [] Demonstrates understanding/competence [] Not covered Reviewed the following [] Type of insulin onset, peak and duration of each type [] Injection site currently uses: [] abd [] thighs [] upper arms [] Inspected site for bruising, redness, infection, lipoatrophy or lipohypertrophy. [] no problems [] Problem: [] Not injecting near umbilicus or scars/tattoos. [] Rotates sites appropriately [] Not rotating sites and advised [] Proper storage of insulin [] Stores insulin appropriately [] Does not store insulin appropriately and reinstructed [] History of hypoglycemia within last month? [] Yes. Was it treated appropriately? [] yes [] no and reinstructed on proper treatment [] No [x] New to insulin Patient is new to insulin and prescribed: ____ [] Instructed today on type of insulin(s), onset, peak and duration. [x] Demonstrated proper administration technique using []Vial & syringe [x]Pen. [x] Return demonstration via [] Self-injection __U Site:____ [x] demonstrator pillow. [] Verbally [x] Reviewed recommended injection sites, proper storage of insulin, Proper needle disposal, importance of blood glucose monitoring when taking insulin, and risk of hypoglycemia. [x] Handouts given. SN instructed on insulin pen in case it's ordered at discharge. Neil had difficulty manipulating the pen and needles, r/t dexterity. She did bend the needle twice using injection pillow. She stated she has someone at home who could help her with this if needed. [x] Use of meter: [] Previous use of meter and at home patient checks: patient did nt have a meter at home [] Daily [] weekly [] monthly [] other: [] Once a day [] twice a day [] 3 times a day [] 4 times a day or more [] Before meal [] 2 hours after meal [] Reviewed technique and patient uses meter: [] Appropriately [] Patient was not using appropriately and advised [x] Patient is new to glucose meter and instructed on the following.: [x] Overview of meter 800 number on all machines for help [] Proper storage/ handling of meter and test strips [x] Washing hands, turning on meter [x] Loading and using lancet device to obtain an adequate sample [x] Obtaining blood sample and reading results on meter [x] Proper disposal of used strips and lancets [x] Frequency of testing , per Dr order [x] Importance of record keeping [] When to call their PCM with abnormal results [x] Desired blood glucose goals for optimal control handout given [] All of the above [] Patient instructed on home meter. Name of meter: [x] Patient instructed with demonstrator model in office. Freestyle The patient return demonstrated: [x] verbally [] self-tested BG SUPPORT MATERIALS The following support materials were provided for patient to take home: [x] Diabetes Education Survival Packet [x] Self-care diary/log for blood glucose and food [] Insulin how to kit [x] Diabetes ID card [x] [facility] Diabetes Education brochure/ contact card RECOMMENDATIONS INPATIENT PLAN: [] Claims Adjuster Supervisor Consult this admission for education on CHO diet and diet plan for home [] Would recommend follow -up education at outpatient diabetes education at [facility]. [] An order has been placed for signature. Diabetes Education team will contact patient for appointment after discharge. [] Patient declines education at this time. Education Brochure given for future reference [x] No further education is recommended at this time. Neil reports she has some cognitive difficulties , needs things explained slowly and forgets much of what she hears, per her. Education would be appropriate with a co-learner. RN Bedside Support Plan: [x] Bedside RN to support patient with administration of insulin at bedside [] Bedside RN to support patient with SMBG - OK to use home meter along-side floor meter [] Reinforce target BG ranges, Hyper and Hypo signs and symptoms and treatment [] Bedside RN to coordinate BG Check with mealtime and insulin [] Bedside RN to ensure snack at HS for patient on HS insulin [x] Bedside RN to reinforce survival skills education and diabetes self-care . Spoke to nurse Radha, advised her of Neil's difficulty with injection and suggested she participate in insulin administration while inpatient , incase it's ordered at discharge . Also advised genaky note to MD for glucometer and supplies at discharge. [x] Patient will need prescriptions for the following supplies at discharge: [x] Preferred / formulary blood glucose meter, with strips and lancets for testing [] Insulin pen needle tips [] Insulin syringes with needles Patient needs reinforcement. understanding of survival skills education. Narrative note: 0800 Initial assessment completed, see flow sheet for details. Patient denies any chest pain or acute SOB at this time. Lungs clear,dim. PP +2. No edema. MP SR. Patient aware NPO for ordered cardiac catheterization with Dr. Esquivel this morning; per shift supervisor RN patient will sign consent after explanation from Dr. Jace jacobson. Report given to metallurgical lab technician and updated patient will sign consent after explanation from Dr. Esquivel. Will continue to evaluate and note changes. Patient left via wc to metallurgical lab technician, pain free. Stable. 1200 PM patient returned from cardiac metallurgical lab technician, S/pa heart catheterization. Patient denies any CP or acute SOB. VSS. Lungs clear/dim. Right radial cath site dressing transparen,t dry, and intact. Right radial site remains soft to touch, no numbness or tingling right hand. Hemostasis maintained. Dr. Stone here on patient return; evaluated patient. BR for 2 hours per metallurgical lab technician. No acute distress. No CP. Will note changes in tissue perfusion. Stable at this time. SR up X 2. Call light in reach. 1330 PM Hemostasis maintained. Patinet updated Dr. Stone plans to possible discharge tomorrow. Family updated as per patient request. 1700 PM Hemostasis maintained right wrist s/p cardiac catheterizaion. Dressing right wrist dry and intact. Soft to touch/no hematoma. Denies any numbness or tingling of right hand, "slightly sore"per patient. Will continue to evaluate and note changes. Call light in reach. [address] Stone called and Orders received for endocrinology consult. [facility] discharge on 04/06/2022. A list of potential PPCs given to patient. Aware needs to choose one before discharge tomorrow for follow up. Will note any changes. Progress Note Date:04/05/2022 Room:[place] [address] Patient Name:Neil Wellington Date of :1970 Age:51 y.o. Subjective No acute events overnight. WBC significantly improved, back to WNL this morning. Previous day leukocytosis as isolated outlier. No other evidence of acute infection at this time. Underwent cardiac catheterization with cardiology this morning, reported that essentially normal coronaries with no acute blockages. Start amlodipine 5 mg for hypertension not fully controlled on previous regimen. Objective Vitals Last 24 Hours: TEMPERATURE: Temp Av.2 F (36.8 C) Min: 98.1 F (36.7 C) Max: 98.2 F (36.8 C) RESPIRATIONS RANGE: Resp Av Min: 18 Max: 18 PULSE OXIMETRY RANGE: SpO2 Av.5 % Min: 95 % Max: 96 % PULSE RANGE: Pulse Av.3 Min: 91 Max: 99 BLOOD PRESSURE RANGE: Systolic (24hrs), Av , Min:133 , Max:160 ; Diastolic (24hrs), Av, Min:74, Max:96 I/O (24Hr): Intake/Output Summary (Last 24 hours) at 04/05/2022 0809 Last data filed at 04/05/2022 0544 Gross per 24 hour Intake 1080 ml Output 1300 ml Net -220 ml Objective: Vital signs: (most recent): Blood pressure (!) 160/91, pulse 93, temperature 98.2 F (36.8 C), temperature source Oral, resp. rate 18, height 5' 3" (1.6 m), weight 209 lb (94.8 kg), SpO2 96 %. General appearance: alert, appears stated age and cooperative, mildly somnolent s/p return to medical floor from [facility]. HEENT: Head: Normocephalic, no lesions, without obvious abnormality. Neck: no adenopathy, no carotid bruit, no JVD, supple, symmetrical, trachea midline and thyroid not enlarged, symmetric, no tenderness/mass/nodules Lungs: Normal rate and effort of respiration on room air. Fine bibasilar crackles. Heart: regular rate and rhythm, S1, S2 normal, no murmur, click, rub or gallop Abdomen: soft, non-tender; bowel sounds normal; no masses, no organomegaly Extremities: +1 pitting edema in both legs. Neurologic: Mental status: Alert, oriented, thought content appropriate Labs/Imaging/Diagnostics Labs: CBC: Recent Labs 04/03/22 0530 04/04/22 0546 04/05/22 0554 WBC 9.2 17.5* 10.4 RBC 4.67 4.44 4.62 HGB 14.7 14.1 14.6 HCT 43.0 41.4 42.8 MCV 92.1 93.1 92.7 RDW 14.4 14.5 14.6* PLT 162 197 180 CHEMISTRIES: Recent Labs 04/03/2252904/04/22 0546 04/05/22 0554 NA 139 137 135 K 4.1 3.3* 3.5 CL 104 95 96 CO2 22 25 28 BUN 13 24* 19 CREATININE 0.78 0.89 0.86 GLUCOSE 248* 247* 175* MG -- 2.0 -- PT/INR: Recent Labs 04/03/22 0530 PROTIME 14.0 INR 1.1 APTT: Recent Labs 04/03/22 0530 APTT 27.5 LIVER PROFILE: Recent Labs 04/03/2230 04/04/22 0546 AST 22 22 ALT 27 21 BILITOT 0.7 1.0* ALKPHOS 102 101 Imaging Last 24 Hours: CTA CHEST W WO CONTRAST Result Date: 04/03/2022 CTA CHEST W WO CONTRAST: 04/03/2022 CLINICAL HISTORY: Shortness of breath. COMPARISON: None available. Spiral enhanced images were obtained of the chest during the infusion of approximately 75 mL of Isovue 300 contrast with pulmonary artery CTA protocol. Routine and volume rendered images were obtained on a 3-dimensional workstation. All CT scans at this facility use dose modulation, iterative reconstruction, and/or weight based dosing when appropriate to reduce radiation dose to as low as reasonably achievable. FINDINGS: There are no filling defects identified within the pulmonary arterial vasculature to suggest pulmonary emboli. The thoracic aorta is normal in caliber with minimal atherosclerotic plaquing of the arch. There is no dissection. The heart is mildly enlarged. A small layering right pleural effusion is present Minimal diffuse interstitial prominence and groundglass opacity is most likely edema. Atypical pneumonia should be excluded clinically. There is no focal consolidation, worrisome nodules, lymphadenopathy, left pleural or pericardial effusions identified. Mild degenerative changes of the thoracic spine are noted. There are no fractures identified. The limited images of the upper abdomen are noncontributory. NO EVIDENCE OF PULMONARY EMBOLI. FINDINGS CONSISTENT WITH MILD CARDIAC DECOMPENSATION WITH A SMALL RIGHT PLEURAL EFFUSION. ATYPICAL PNEUMONIA SHOULD BE EXCLUDED CLINICALLY. XR CHEST PORTABLE Result Date: 04/03/2022 XR CHEST PORTABLE : 04/03/2022 CLINICAL HISTORY: PNA . COMPARISON: None available TECHNIQUE: A portable upright AP radiograph of the chest was obtained. FINDINGS: The heart is borderline enlarged, exaggerated by technique. There is no significant pulmonary infiltrate, sizable pleural effusion, vascular congestion, pneumothorax, or displaced fractures identified. BORDERLINE CARDIOMEGALY. NO OTHER EVIDENCE OF ACTIVE CARDIOPULMONARY DISEASE, BY PORTABLE CHEST RADIOGRAPHY. US DUP LOWER EXTREMITIES BILATERAL VENOUS Result Date: 04/03/2022 US DUP LOWER EXTREMITIES BILATERAL VENOUS : 04/03/2022 CLINICAL HISTORY: Lower extremity swelling and shortness of breath. COMPARISON: 03/19/2015. Grayscale, compression, color and waveform Doppler analysis of both lower extremity deep venous systems was performed with augmentation. FINDINGS: There is no deep venous thrombosis, abnormal masses, fluid collections or other findings of concern identified within either lower extremity. NO DVT IDENTIFIED IN EITHER LOWER EXTREMITY. Assessment//Plan Hospital Problems Last Modified POA * (Principal) New onset of congestive heart failure (HCC) 04/04/2022 Yes Assessment & Plan Acute diastolic heart failure. Rule out the possibility of systolic dysfunction and acute systolic failure as well. This is likely triggered by hypertensive urgency. Cardiac consultation. 04/05: Echocardiogram and cardiac catheterization per cardiology. EF relatively normal. Catheterization 04/05 revealing no significant coronary disease. Appreciate further cardiology recommendations when available. Hypertensive urgency/crisis. Blood pressure 226/172 on presentation. Patient admitted that she has not been compliant taking her medications for several months. 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 Patient is denied. Pressure is much better controlled at this time. 04/05: Added amlodipine 5 mg p.o. daily to existing regimen for better BP control. Diabetes with hyperglycemia uncontrolled. Basal/bolus insulin, with good control since admission. Tobacco addiction. Cessation counseling Lower extremities edema with positive D-dimer. No PE on CTA. Ordered venous study rule out DVT: Also negative. Diabetes Accu-Chek with a sliding scale coverage. Check hemoglobin A1c. Medical treatment noncompliance. Counseling and education New acute leukocytosis 04/04: No acute focal complaints at present, but polyuria approximately 1 week ago. Procalcitonin 0.07, but WBCs increased to 17.5 from 9.2. Reactive versus infectious. Afebrile, and no chills. Urinalysis pending in setting of reported polyuria. Defer antibiotic initiation until additional results obtained. 04/05: Leukocytosis fully resolved. Isolated elevation on 04/04. Daily CBC. Admission Plan: Medical and telemetry unit. Aspirin, beta-nando, angiotensin receptor nando, intravenous Lasix and nitroglycerin. Echocardiogram to assess cardiac function and rule out any significant valvular disease. Continue to titrate BP meds to achieve optimal blood pressure control. Received report from Radha OVERTON. Pt arrived to pre/post cath. Alert and oriented. Consent signed. Prepped for procedure and taken to metallurgical lab technician. 0905 Pt returned to pre/post cath from procedure. Asleep, easily aroused. Attached to monitor. Vitals obtained and stable IV -SL as directed by Dr. Esquivel. Received report from Pako OVERTON. R radial quikclot and pressure bandage in place. Wrist is soft, no signs of bleeding or hematoma. Will monitor. 0950 Outer pressure bandage removed. R wrist remains stable. 1010 Report called to Radha Overton 1WT. Request made for transport back to room. 1025 Pt transferred back to room on portable tele monitor and O2. Nutrition Education Referral for 2gna diet + Carb Control diet education, Attempted to meet with pt x2, did not wake to name, on 3rd visit, sister and mom were in pt's room. Pt minimally participative in education, family reports + substance abuse problem, and that pt has been non-compliant with medical care for years. Family supportive and offfering help to pt. Question pt's ability to comply with recommended dietary modifications, until substance abuse issues are resolved. CHF diet education completed per protocol. Reviewed high sodium foods to avoid and low sodium foods recommended. Utilizing food label information included as well as handout on alternative spices/seasonings provided. Basic Diabetes Diet Guidelines reviewed with patient. Reviewed CHO containing foods, portion sizes, and carbohydrate counting to meet CHO targets for each meal. Also provided information on food label reading and sample meal plans for reference. Discussed importance of meal spacing and not skipping meals and following a balanced diet rich in fruits, vegetables, whole grains and lean meats. Pt will likely need outpatient referral for further instruction, once she is motivated to make recommended dietary changes. Learners: Patient and Family Readiness: Non-acceptance Method: Explanation and Handout Response: Needs Reinforcement Contact name and number provided. NEIL KEMP RD, LD Physical Therapy Med Surg Initial Assessment Facility/Department: [address] TELEMETRY Room: [place] [address] NAME: Neil Wellington : 1970 (51 y.o.) CODE STATUS: Full Code Date of Service: 04/04/2022 Patient Diagnosis(es): Tobacco dependence [F17.200] Essential hypertension [I10] Near syncope [R55] H/O noncompliance with medical treatment, presenting hazards to health [Z91.19] Acute congestive heart failure with left ventricular diastolic dysfunction (HCC) [I50.31] New onset of congestive heart failure (HCC) [I50.9] Type 2 diabetes mellitus with hyperglycemia, unspecified whether exterminator termite insulin use (HCC) [E11.65] Chief Complaint Patient presents with Shortness of Breath Patient Active Problem List Diagnosis Date Noted Acute congestive heart failure with left ventricular diastolic dysfunction (HCC) 04/03/2022 Past Medical History: Diagnosis Date Diabetes mellitus (HCC) Hypertension History reviewed. No pertinent surgical history. Chart Reviewed: Yes Family / Caregiver Present: No General Comment Comments: Pt resting in bed - agreeable to PT evaluation Restrictions: Restrictions/Precautions: Fall Risk SUBJECTIVE: Subjective: "I'm alright." Pain Pain: Denies pain pre and post session Prior Level of Function: Social/Functional History Lives With: (Mother) Type of Home: House Home Layout: One level Home Access: Stairs to enter without rails Entrance Stairs - Number of Steps: 1 Bathroom Shower/Tub: Tub/Shower unit Bathroom Equipment: Tub transfer bench,Grab bars in shower (planning to have bars installed) Home Equipment: (NA) Has the patient had two or more falls in the past year or any fall with injury in the past year?: (1 fall out of truck) ADL Assistance: Independent Ambulation Assistance: Independent (without AD) Transfer Assistance: Independent Active Jewel Stripper: Yes Additional Comments: pt states that lately she has been struggling with functional mobility and ADLs OBJECTIVE: Vision Vision Exceptions: Wears glasses at all times Hearing: Within functional limits Cognition: Overall Orientation Status: Within Functional Limits Follows Commands: Within Functional Limits Cognition Comment: Pt uses environment cues to orient. Pt follows one step commands consistently Observation/Palpation Observation: No acute distress noted. Pleasant and motivated. ROM: RLE PROM: WFL LLE PROM: WFL Strength: Strength RLE Strength RLE: WFL Strength LLE Strength LLE: WFL Neuro: Balance Sitting - Static: Good Sitting - Dynamic: Good Standing - Static: Good Standing - Dynamic: Good Comments: Retrieves object from floor indep. Tone: Normal Sensation: Impaired (intermittent tingling in fingers) Bed mobility Rolling to Right: Independent Supine to Sit: Independent Sit to Supine: Independent Transfers Sit to Stand: Independent;Modified independent Stand to sit: Independent;Modified independent Bed to Chair: Independent;Modified independent Ambulation Surface: level tile Device: No Device Assistance: Modified Independent;Independent Quality of Gait: Normalized Distance: 20ft with turn Activity Tolerance Activity Tolerance: Patient tolerated treatment well Patient Education Education Given To: Patient Education Provided: Role of Therapy Education Provided Comments: healthy lifestyle choice/changes Education Method: Verbal Education Outcome: Verbalized understanding ASSESSMENT: Decision Making: Low Complexity History: High Exam: Med Clinical Presentation: Med Therapy Prognosis: Good Barriers to Learning: none DISCHARGE RECOMMENDATIONS: Discharge Recommendations: Home independently No Skilled PT: Safe to return home Assessment: Pt completes basic mobility at indep level of function. No further PT indicated in house. Requires PT Follow-Up: No PLAN OF CARE: Plan Plan: Discharge with evaluation only Safety Devices Type of Devices: All fall risk precautions in place Restraints Restraints Initially in Place: No Goals: Care Home Goals senior care goal 1: NA [facility] (6 CLICK) BASIC MOBILITY AM-PAC Inpatient Mobility Raw Score : 24 Therapy Time: Individual Time In 1145 Time Out 1157 Minutes 12 Rasheeda Monsivais PT, 04/04/22 at 1:07 PM Definitions for assistance levels Independent = pt does not require any physical supervision or assistance from another person for activity completion. Device may be needed. Stand by assistance = pt requires verbal cues or instructions from another person, close to but not touching, to perform the activity Minimal assistance= pt performs 75% or more of the activity; assistance is required to complete the activity Moderate assistance= pt performs 50% of the activity; assistance is required to complete the activity Maximal assistance = pt performs 25% of the activity; assistance is required to complete the activity Dependent = pt requires total physical assistance to accomplish the task [facility]ER[facility] EVALUATION - ACUTE NAME: Neil Wellington : 1970 (51 y.o.) CODE STATUS: Full Code Room: [place] [address] Date of Service: 04/04/2022 Patient Diagnosis(es): Tobacco dependence [F17.200] Essential hypertension [I10] Near syncope [R55] H/O noncompliance with medical treatment, presenting hazards to health [Z91.19] Acute congestive heart failure with left ventricular diastolic dysfunction (HCC) [I50.31] New onset of congestive heart failure (HCC) [I50.9] Type 2 diabetes mellitus with hyperglycemia, unspecified whether correction insulin use (HCC) [E11.65] Patient Active Problem List Diagnosis Date Noted Acute congestive heart failure with left ventricular diastolic dysfunction (HCC) 04/03/2022 Past Medical History: Diagnosis Date Diabetes mellitus (HCC) Hypertension History reviewed. No pertinent surgical history. Restrictions Safety Devices: Safety Devices Type of Devices: Call light within reach;Left in bed Patient's date of confirmed: Yes General: Subjective:Pt pleasant and cooperative. "I do have to pee." Pain at start of treatment: No Pain at end of treatment: No Location: Nursing notified: No RN: Intervention: Repositioned Prior Level of Function: Social/Functional History Lives With: (Mother) Type of Home: House Home Layout: One level Home Access: Stairs to enter without rails Entrance Stairs - Number of Steps: 1 Bathroom Shower/Tub: Tub/Shower unit Bathroom Equipment: Tub transfer bench,Grab bars in shower (planning to have bars installed) Home Equipment: (NA) Has the patient had two or more falls in the past year or any fall with injury in the past year?: (1 fall out of truck) ADL Assistance: Independent Ambulation Assistance: Independent (without AD) Transfer Assistance: Independent Active Jewel Stripper: Yes Additional Comments: pt states that lately she has been struggling with functional mobility and ADLs. Pt with flat affect OBJECTIVE: Orientation Status: Orientation Overall Orientation Status: Within Functional Limits Observation: Observation/Palpation Posture: Fair Observation: mild rounding of shoulders Cognition Status: Cognition Cognition Comment: Pt uses environment cues to orient. Pt follows one step commands consistently Perception Status: Perception Overall Perceptual Status: WFL Vision and Hearing Status: Vision Vision Exceptions: Wears glasses at all times Hearing Hearing: Within functional limits Vision - Basic Assessment Prior Vision: Wears glasses all the time Visual History: No significant visual history Patient Visual Report: No visual complaint reported. Visual Field Cut: No Oculo Motor Control: WNL GROSS ASSESSMENT AROM/PROM: AROM: Within functional limits ROM: LUE AROM (degrees) LUE AROM : WFL Left Hand AROM (degrees) Left Hand AROM: WFL RUE AROM (degrees) RUE AROM : WFL Right Hand AROM (degrees) Right Hand AROM: WFL UE STRENGTH: Strength: Within functional limits UE COORDINATION: Coordination: Within functional limits UE TONE: Tone: Normal UE SENSATION: Sensation: Intact Hand Dominance: Hand Dominance Hand Dominance: Left ADL Status: ADL Feeding: Independent Grooming: Setup;Increased time to complete UE Bathing: Setup;Increased time to complete LE Bathing: Setup;Increased time to complete UE Dressing: Setup;Increased time to complete LE Dressing: Setup;Increased time to complete Toileting: Independent Toilet Transfers Toilet - Technique: Ambulating Equipment Used: Standard toilet Toilet Transfer: Independent Functional Mobility: Patient ambulated to/from bathroom with No device at Supervision level. Bed Mobility Seated and Standing Balance: Balance Sitting: Intact Standing: (supervision) Functional Endurance: Activity Tolerance Activity Tolerance: Treatment limited secondary to medical complications (free text) D/C Recommendations: OT D/C RECOMMENDATIONS REQUIRES OT FOLLOW-UP: No Equipment Recommendations: OT Education: OT Follow Up: OT D/C RECOMMENDATIONS REQUIRES OT FOLLOW-UP: No Assessment/Discharge Disposition: Performance deficits / Impairments: Decreased balance Prognosis: Good Discharge Recommendations: Continue to assess pending progress No Skilled OT: At baseline function Decision Making: Low Complexity History: 3 complexities Exam: 1 deficit Assistance / Modification: supervision [facility] ([facility]) Self care Score How much help for putting on and taking off regular lower body clothing?: None How much help for Bathing?: None How much help for Toileting?: None How much help for putting on and taking off regular upper body clothing?: None How much help for taking care of personal grooming?: None How much help for eating meals?: None AM-[facility] Inpatient Daily Activity Raw Score: 24 AM-[facility] Inpatient ADL T-Scale Score : 57.54 ADL Inpatient CMS 0-100% Score: 0 Therapy nino for assistance levels Independent/Mod I = Pt. is able to perform task with no assistance but may require a device Stand by assistance = Pt. does not perform task at an independent level but does not need physical assistance, requires verbal cues Minimal, Moderate, Maximal Assistance = Pt. requires physical assistance (25%, 50%, 75% assist from helper) for task but is able to actively participate in task Dependent = Pt. requires total assistance with task and is not able to actively participate with task completion Plan: Plan Times per Week: N/A Goals: Patient will: Patient Goal: Patient goals : To return to home when ready Discussed and agreed upon: Yes Comments: Therapy Time: Individual Time In 1145 Time Out 1157 Minutes 12 Eval: 12 minutes Electronically signed by: ONELIA Crenshaw, 04/04/2022, 12:51 PM Referral received for diabetes education , patient in room , introduced myself and explained the purpose of my visit. Neil didn't open her eyes , asked her a few questions, what did she take for her diabetes at home ? She replied it is complicated, asked her to elaborate, she declined. I left the survival skills packet and told her Ill try to come back another time. Notified nurse Radha of same. Progress Note Date:04/04/2022 Room:[place] [address] Patient Name:Neil Wellintgon Date of :1970 Age:51 y.o. Subjective No acute events overnight. WBCs jumped significantly to 17.5 from 9.2. Procalcitonin WNL at 0.07. Patient reports polyuria approximately 1 week ago, no dysuria or polyuria at present. Patient has no other new/acute complaints at present. Patient family member reporting to nurse that patient occasionally uses methamphetamine at home, which patient verbally denied to nursing. Doppler scan negative for acute lower extremity DVT. Objective Vitals Last 24 Hours: TEMPERATURE: Temp Av.4 F (36.9 C) Min: 98.4 F (36.9 C) Max: 98.4 F (36.9 C) RESPIRATIONS RANGE: Resp Av.3 Min: 18 Max: 25 PULSE OXIMETRY RANGE: SpO2 Av % Min: 95 % Max: 99 % PULSE RANGE: Pulse Av.3 Min: 96 Max: 110 BLOOD PRESSURE RANGE: Systolic (24hrs), Av , Min:148 , Max:177 ; Diastolic (24hrs), Av, Min:63, Max:100 I/O (24Hr): Intake/Output Summary (Last 24 hours) at 04/04/2022 0883 Last data filed at 04/04/2022 0529 Gross per 24 hour Intake Output 1700 ml Net -1700 ml Objective General appearance: alert, appears stated age and cooperative, no respiratory distress at rest, mild with exertion. Skin: Skin color, texture, turgor normal. No rashes or lesions HEENT: Head: Normocephalic, no lesions, without obvious abnormality. Neck: no adenopathy, no carotid bruit, no JVD, supple, symmetrical, trachea midline and thyroid not enlarged, symmetric, no tenderness/mass/nodules Lungs: Bilateral fine crackles. Heart: regular rate and rhythm, S1, S2 normal, no murmur, click, rub or gallop Abdomen: soft, non-tender; bowel sounds normal; no masses, no organomegaly Extremities: +1 pitting edema in both legs. Neurologic: Mental status: Alert, oriented, thought content appropriate Labs/Imaging/Diagnostics Labs: CBC: Recent Labs 04/03/2252904/04/22545 WBC 9.2 17.5* RBC 4.67 4.44 HGB 14.7 14.1 HCT 43.0 41.4 MCV 92.1 93.1 RDW 14.4 14.5 PLT 162 197 CHEMISTRIES: Recent Labs 04/03/2252904/04/22545 NA 139 137 K 4.1 3.3* CL 104 95 CO2 22 25 BUN 13 24* CREATININE 0.78 0.89 GLUCOSE 248* 247* MG -- 2.0 PT/INR: Recent Labs 04/03/22529 PROTIME 14.0 INR 1.1 APTT: Recent Labs 04/03/22529 APTT 27.5 LIVER PROFILE: Recent Labs 04/03/2252904/04/22545 AST 22 22 ALT 27 21 BILITOT 0.7 1.0* ALKPHOS 102 101 Imaging Last 24 Hours: CTA CHEST W WO CONTRAST Result Date: 04/03/2022 CTA CHEST W WO CONTRAST: 04/03/2022 CLINICAL HISTORY: Shortness of breath. COMPARISON: None available. Spiral enhanced images were obtained of the chest during the infusion of approximately 75 mL of Isovue 300 contrast with pulmonary artery CTA protocol. Routine and volume rendered images were obtained on a 3-dimensional workstation. All CT scans at this facility use dose modulation, iterative reconstruction, and/or weight based dosing when appropriate to reduce radiation dose to as low as reasonably achievable. FINDINGS: There are no filling defects identified within the pulmonary arterial vasculature to suggest pulmonary emboli. The thoracic aorta is normal in caliber with minimal atherosclerotic plaquing of the arch. There is no dissection. The heart is mildly enlarged. A small layering right pleural effusion is present Minimal diffuse interstitial prominence and groundglass opacity is most likely edema. Atypical pneumonia should be excluded clinically. There is no focal consolidation, worrisome nodules, lymphadenopathy, left pleural or pericardial effusions identified. Mild degenerative changes of the thoracic spine are noted. There are no fractures identified. The limited images of the upper abdomen are noncontributory. NO EVIDENCE OF PULMONARY EMBOLI. FINDINGS CONSISTENT WITH MILD CARDIAC DECOMPENSATION WITH A SMALL RIGHT PLEURAL EFFUSION. ATYPICAL PNEUMONIA SHOULD BE EXCLUDED CLINICALLY. XR CHEST PORTABLE Result Date: 04/03/2022 XR CHEST PORTABLE : 04/03/2022 CLINICAL HISTORY: PNA . COMPARISON: None available TECHNIQUE: A portable upright AP radiograph of the chest was obtained. FINDINGS: The heart is borderline enlarged, exaggerated by technique. There is no significant pulmonary infiltrate, sizable pleural effusion, vascular congestion, pneumothorax, or displaced fractures identified. BORDERLINE CARDIOMEGALY. NO OTHER EVIDENCE OF ACTIVE CARDIOPULMONARY DISEASE, BY PORTABLE CHEST RADIOGRAPHY. US DUP LOWER EXTREMITIES BILATERAL VENOUS Result Date: 04/03/2022 US DUP LOWER EXTREMITIES BILATERAL VENOUS : 04/03/2022 CLINICAL HISTORY: Lower extremity swelling and shortness of breath. COMPARISON: 03/19/2015. Grayscale, compression, color and waveform Doppler analysis of both lower extremity deep venous systems was performed with augmentation. FINDINGS: There is no deep venous thrombosis, abnormal masses, fluid collections or other findings of concern identified within either lower extremity. NO DVT IDENTIFIED IN EITHER LOWER EXTREMITY. Assessment//Plan Hospital Problems Last Modified POA * (Principal) Acute congestive heart failure with left ventricular diastolic dysfunction (HCC) 04/03/2022 Yes Assessment & Plan Acute diastolic heart failure. Rule out the possibility of systolic dysfunction and acute systolic failure as well. This is likely triggered by hypertensive urgency. Cardiac consultation. Hypertensive urgency/crisis. Blood pressure 226/172 on presentation. Patient admitted that she has not been compliant taking her medications for several months. 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 Patient is denied. Pressure is much better controlled at this time. Diabetes with hyperglycemia uncontrolled. Basal/bolus insulin, with good control since admission. Tobacco addiction. Cessation counseling Lower extremities edema with positive D-dimer. No PE on CTA. Ordered venous study rule out DVT: Also negative. Diabetes Accu-Chek with a sliding scale coverage. Check hemoglobin A1c. Medical treatment noncompliance. Counseling and education New acute leukocytosis 04/04: No acute focal complaints at present, but polyuria approximately 1 week ago. Procalcitonin 0.07, but WBCs increased to 17.5 from 9.2. Reactive versus infectious. Afebrile, and no chills. Urinalysis pending in setting of reported polyuria. Defer antibiotic initiation until additional results obtained. Admission Plan: Medical and telemetry unit. Aspirin, beta-nando, angiotensin receptor nando, intravenous Lasix and nitroglycerin. Echocardiogram to assess cardiac function and rule out any significant valvular disease. Continue to titrate BP meds to achieve optimal blood pressure control. documented in this encounter [facility] Submittable Phone: 04-06-2022 Hospital course Narrative Discharge Summary Date: 04/06/2022 Patient Name: Neil Wellington Date of : 1970 Age: 51 y.o. Admit Date: 04/03/2022 Discharge Date: 04/06/2022 Discharge Condition: Good Admission Diagnosis Tobacco dependence (F17.200);Essential hypertension (I10);Near syncope (R55);H/O noncompliance with medical treatment, presenting hazards to health (Z91.19);Acute congestive heart failure with left ventricular diastolic dysfunction (HCC) (I50.31);New onset of congestive heart failure (HCC) (I50.9);Type 2 diabetes mellitus with hyperglycemia, unspecified whether exterminator termite insulin use (HCC) (E11.65) Discharge Diagnosis Principal Problem: New onset of congestive heart failure (HCC)Resolved Problems: * No resolved hospital problems. * Hospital Stay Narrative of Hospital Course: 51-year-old female admitted 04/03/2022 with new onset CHF concerning for diastolic congestive heart failure in setting of hypertensive urgency. Cardiology consulted on admission for assistance with evaluation and management. Echocardiogram results relatively normal. Underwent cardiac catheterization 04/05/2022 with no evidence of significant coronary disease. Severe hypertension progressively normalized during the course of admission. Patient family reporting that she might use amphetamine recreational substances at home, though patient denies. Patient additionally found to have uncontrolled diabetes, not previously on outpatient medications, for which endocrinology was consulted for assistance with initiation of diabetic control regimen, as well as consumer educator consultation for assistance with education and management regarding the condition. Patient was deemed sufficiently improved and appropriate for discharge with outpatient follow-up as of 04/06/2022. She will need to be seen as an outpatient following discharge with PCP, cardiology clinic, and endocrinology clinic. Consultants: IP CONSULT TO CARDIOLOGYIP CONSULT TO DIABETES EDUCATORIP CONSULT TO DIETITIANIP CONSULT TO ENDOCRINOLOGY Surgeries/procedures Performed: Treatments: Procedures, Cardiac Medications, Therapies, Respiratory Therapy, Insulin and Anticoagulation Discharge Plan/Disposition: Home Hospital/Incidental Findings Requiring Follow Up: Patient Instructions: Diet: Cardiac Diet and Diabetic Diet Activity: For number of days (if applicable): Other Instructions: Provider Follow-Up: No follow-ups on file. Significant Diagnostic Studies: Recent Labs: Admission on 04/03/2022No results displayed because visit has over 200 results. Radiology last 7 days: CTA CHEST W WO CONTRASTResult Date: 04/03/2022NO EVIDENCE OF PULMONARY EMBOLI. FINDINGS CONSISTENT WITH MILD CARDIAC DECOMPENSATION WITH A SMALL RIGHT PLEURAL EFFUSION. ATYPICAL PNEUMONIA SHOULD BE EXCLUDED CLINICALLY. XR CHEST PORTABLEResult Date: 04/03/2022ORDERLINE CARDIOMEGALY. NO OTHER EVIDENCE OF ACTIVE CARDIOPULMONARY DISEASE, BY PORTABLE CHEST RADIOGRAPHY. US DUP LOWER EXTREMITIES BILATERAL VENOUSResult Date: 04/03/2022NO DVT IDENTIFIED IN EITHER LOWER EXTREMITY. @DCPENDLAB@ Discharge Medications Current Discharge Medication ListSTART taking these medicationsamLODIPine (NORVASC) 5 MG tabletTake 1 tablet by mouth dailyQty: 30 tablet Refills: 3 Current Discharge Medication List Current Discharge Medication ListCONTINUE these medications which have NOT CHANGEDspironolactone (ALDACTONE) 50 MG tabletTake 50 mg by mouth dailyaspirin EC 81 MG EC tabletTake 81 mg by mouth dailylosartan (COZAAR) 100 MG tabletTake 100 mg by mouth dailycarvedilol (COREG) 6.25 MG tabletTake 6.25 mg by mouth 2 times daily (with meals)atorvastatin (LIPITOR) 40 MG tabletTake 40 mg by mouth dailyfurosemide (LASIX) 40 MG tabletTake 40 mg by mouth daily Current Discharge Medication List Time Spent on Discharge:3E] minutes were spent in patient examination, evaluation, counseling as well as medication reconciliation, prescriptions for required medications, discharge plan, and follow up. Cardiology Discharge Summary Patient Identification: Neil Wellington : 1970 Account: [id number] Admit date: 04/03/2022 Discharge date: 04/05/2020 Attending provider: Arabella Stone DO Primary care provider: Ricky Hendricks MD Admission Diagnoses: New onset of congestive heart failure (HCC) Discharge Diagnoses: Active Hospital Problems Diagnosis Date Noted New onset of congestive heart failure (HCC) [I50.9] 04/03/2022 Priority: Medium Hospital Course: 51-year-old female history of diabetes hypertension hyperlipidemia active smoker psych disorder NOS who was admitted to the hospital for shortness of breath Patient found with heart failure EKG sinus rhythm T wave inversions anterior lateral leads Procedures: Coronary angiogram 04/05/2020 Nonobstructive coronary artery disease Consults: None Examination: BP (!) 160/91 Pulse 93 Temp 98.2 F (36.8 C) (Oral) Resp 18 Ht 5' 3" (1.6 m) Wt 209 lb (94.8 kg) SpO2 96% BMI 37.02 kg/m Physical Exam Vitals and nursing note reviewed. Constitutional: Appearance: Normal appearance. HENT: Head: Normocephalic and atraumatic. Mouth/Throat: Mouth: Mucous membranes are moist. Pharynx: Oropharynx is clear. Eyes: Extraocular Movements: Extraocular movements intact. Conjunctiva/sclera: Conjunctivae normal. Pupils: Pupils are equal, round, and reactive to light. Cardiovascular: Rate and Rhythm: Normal rate and regular rhythm. Pulses: Normal pulses. Heart sounds: Normal heart sounds. Pulmonary: Effort: Pulmonary effort is normal. Breath sounds: Normal breath sounds. Abdominal: General: Abdomen is flat. Bowel sounds are normal. Palpations: Abdomen is soft. Musculoskeletal: General: Normal range of motion. Cervical back: Normal range of motion and neck supple. Skin: General: Skin is warm. Neurological: General: No focal deficit present. Mental Status: She is alert and oriented to person, place, and time. Mental status is at baseline. Psychiatric: Mood and Affect: Mood normal. Medications: Current Discharge Medication List START taking these medications Details amLODIPine (NORVASC) 5 MG tablet Take 1 tablet by mouth daily Qty: 30 tablet, Refills: 3 CONTINUE these medications which have NOT CHANGED Details spironolactone (ALDACTONE) 50 MG tablet Take 50 mg by mouth daily aspirin EC 81 MG EC tablet Take 81 mg by mouth daily losartan (COZAAR) 100 MG tablet Take 100 mg by mouth daily carvedilol (COREG) 6.25 MG tablet Take 6.25 mg by mouth 2 times daily (with meals) atorvastatin (LIPITOR) 40 MG tablet Take 40 mg by mouth daily furosemide (LASIX) 40 MG tablet Take 40 mg by mouth daily Significant Diagnostics: Radiology: ECHO Complete 2D W Doppler W Color Result Date: 04/04/2022 Transthoracic Echocardiography Report (TTE) Demographics Patient Name ELIZ TREJO Gender Female R Patient Number [id number] Race Ethnicity Visit Number [id number] Room Number W184 Corporate ID Date of Study 04/04/2022 Referring Physician Number Date of 1970 Blender Operator Quita Del Toro Age 51 year(s) Interpreting [facility] Physician Cardiology Jean-Paul Klein MD Procedure Type of Study TTE procedure:ECHO COMPLETE 2D W/DOP W/COLOR. Procedure Date Date: 04/04/2022 Start: 02:02 PM Study Location: Portable Technical Quality: Adequate visualization Indications:Congestive heart failure. Patient Status: Routine Height: 63 inches Weight: 210 pounds BSA: 1.97 m^2 BMI: 37.2 kg/m^2 BP: 148/81 mmHg Conclusions Summary Normal tricuspid valve structure and function. Mild TR RVSP 39 mmHg Normal left ventricle structure and function. Left ventricular ejection fraction is visually estimated at 50%. Pseudonormal filling pattern noted. Signature Findings Left Ventricle Normal left ventricle structure and function. Left ventricular ejection fraction is visually estimated at 50%. Pseudonormal filling pattern noted. Right Ventricle Normal right ventricle structure and function. Normal right ventricle systolic pressure. Left Atrium Normal left atrium. Right Atrium Normal right atrium. Mitral Valve Normal mitral valve structure and function. Tricuspid Valve Normal tricuspid valve structure and function. Mild TR RVSP 39 mmHg Aortic Valve Normal aortic valve structure and function. Pulmonic Valve The pulmonic valve was not well visualized . Pericardial Effusion No evidence of pericardial effusion. Pleural Effusion No evidence of pleural effusion. M-Mode Measurements (cm) LVIDd: 4.03 cm LVIDs: 2.85 cm IVSd: 1.9 cm IVSs: 1.89 cm LVPWd: 2.06 cm AO Root Dimension: 2.82 cm Rt. Vent. Dimension: 3.64 cm LVOT: 1.98 cm Doppler Measurements: AV Velocity:0.03 m/s MV Peak E-Wave: 1.03 m/s AV Peak Gradient: 9.42 mmHg MV Peak A-Wave: 0.67 m/s AV Mean Gradient: 4.96 mmHg AV Area (Continuity):2.62 cm^2 TR Velocity:2.68 m/s Estimated RAP:10 mmHg TR Gradient:28.65 mmHg RVSP:38.65 mmHg Valves Mitral Valve Peak E-Wave: 1.03 m/s Peak A-Wave: 0.67 m/s E/A Ratio: 1.52 Peak Gradient: 4.21 mmHg Deceleration Time: 148.7 msec Aortic Valve Peak Velocity: 1.53 m/s Mean Velocity: 1.03 m/s Peak Gradient: 9.42 mmHg Mean Gradient: 4.96 mmHg Area (continuity): 2.62 cm^2 AV VTI: 22.34 cm Tricuspid Valve Estimated RVSP: 38.65 mmHg Estimated RAP: 10 mmHg TR Velocity: 2.68 m/s TR Gradient: 28.65 mmHg Pulmonic Valve Peak Velocity: 0.89 m/s Peak Gradient: 3.14 mmHg Estimated PASP: 38.65 mmHg LVOT Peak Velocity: 1.25 m/s Mean Velocity: 0.84 m/s Peak Gradient: 6.29 mmHg Mean Gradient: 3.33 mmHg LVOT Diameter: 1.98 cm LVOT VTI: 19.04 cm Structures Left Atrium LA Volume/Index: 51.88 ml /26 m^2 LA Area: 17.49 cm^2 Left Ventricle Diastolic Dimension: 4.03 cm Systolic Dimension: 2.85 cm Septum Diastolic: 1.9 cm Septum Systolic: 1.89 cm PW Diastolic: 2.06 cm FS: 29.3 % LV EDV/LV EDV Index: 71.29 ml/36 m^2 LV ESV/LV ESV Index: 30.85 ml/16 m^2 EF Calculated: 56.7 % LV Length: 7.79 cm LVOT Diameter: 1.98 cm Right Atrium RA Systolic Pressure: 10 mmHg Right Ventricle Diastolic Dimension: 3.64 cm RV Systolic Pressure: 38.65 mmHg Aorta/ Miscellaneous Aorta Aortic Root: 2.82 cm LVOT Diameter: 1.98 cm CTA CHEST W WO CONTRAST Result Date: 04/03/2022 CTA CHEST W WO CONTRAST: 04/03/2022 CLINICAL HISTORY: Shortness of breath. COMPARISON: None available. Spiral enhanced images were obtained of the chest during the infusion of approximately 75 mL of Isovue 300 contrast with pulmonary artery CTA protocol. Routine and volume rendered images were obtained on a 3-dimensional workstation. All CT scans at this facility use dose modulation, iterative reconstruction, and/or weight based dosing when appropriate to reduce radiation dose to as low as reasonably achievable. FINDINGS: There are no filling defects identified within the pulmonary arterial vasculature to suggest pulmonary emboli. The thoracic aorta is normal in caliber with minimal atherosclerotic plaquing of the arch. There is no dissection. The heart is mildly enlarged. A small layering right pleural effusion is present Minimal diffuse interstitial prominence and groundglass opacity is most likely edema. Atypical pneumonia should be excluded clinically. There is no focal consolidation, worrisome nodules, lymphadenopathy, left pleural or pericardial effusions identified. Mild degenerative changes of the thoracic spine are noted. There are no fractures identified. The limited images of the upper abdomen are noncontributory. NO EVIDENCE OF PULMONARY EMBOLI. FINDINGS CONSISTENT WITH MILD CARDIAC DECOMPENSATION WITH A SMALL RIGHT PLEURAL EFFUSION. ATYPICAL PNEUMONIA SHOULD BE EXCLUDED CLINICALLY. XR CHEST PORTABLE Result Date: 04/03/2022 XR CHEST PORTABLE : 04/03/2022 CLINICAL HISTORY: PNA . COMPARISON: None available TECHNIQUE: A portable upright AP radiograph of the chest was obtained. FINDINGS: The heart is borderline enlarged, exaggerated by technique. There is no significant pulmonary infiltrate, sizable pleural effusion, vascular congestion, pneumothorax, or displaced fractures identified. BORDERLINE CARDIOMEGALY. NO OTHER EVIDENCE OF ACTIVE CARDIOPULMONARY DISEASE, BY PORTABLE CHEST RADIOGRAPHY. US DUP LOWER EXTREMITIES BILATERAL VENOUS Result Date: 04/03/2022 US DUP LOWER EXTREMITIES BILATERAL VENOUS : 04/03/2022 CLINICAL HISTORY: Lower extremity swelling and shortness of breath. COMPARISON: 03/19/2015. Grayscale, compression, color and waveform Doppler analysis of both lower extremity deep venous systems was performed with augmentation. FINDINGS: There is no deep venous thrombosis, abnormal masses, fluid collections or other findings of concern identified within either lower extremity. NO DVT IDENTIFIED IN EITHER LOWER EXTREMITY. Labs: Recent Results (from the past 72 hour(s)) EKG 12 Lead Collection Time: 04/03/22 5:14 AM Result Value Ref Range Ventricular Rate 109 BPM Atrial Rate 109 BPM P-R Interval 138 ms QRS Duration 86 ms Q-T Interval 374 ms QTc Calculation (Bazett) 503 ms P [place] 61 degrees R [place] -16 degrees T [place] 60 degrees CBC with Auto Differential Collection Time: 04/03/22 5:30 AM Result Value Ref Range WBC 9.2 4.8 - 10.8 K/uL RBC 4.67 4.20 - 5.40 M/uL Hemoglobin 14.7 12.0 - 16.0 g/dL Hematocrit 43.0 37.0 - 47.0 % MCV 92.1 82.0 - 100.0 fL MCH 31.5 (H) 27.0 - 31.3 pg MCHC 34.2 33.0 - 37.0 % RDW 14.4 11.5 - 14.5 % Platelets 162 130 - 400 K/uL Neutrophils % 55.9 % Lymphocytes % 32.5 % Monocytes % 8.7 % Eosinophils % 1.8 % Basophils % 1.1 % Neutrophils Absolute 5.1 1.4 - 6.5 K/uL Lymphocytes Absolute 3.0 1.0 - 4.8 K/uL Monocytes Absolute 0.8 0.2 - 0.8 K/uL Eosinophils Absolute 0.2 0.0 - 0.7 K/uL Basophils Absolute 0.1 0.0 - 0.2 K/uL Comprehensive Metabolic Panel w/ Reflex to MG Collection Time: 04/03/22 5:30 AM Result Value Ref Range Sodium 139 135 - 144 mEq/L Potassium reflex Magnesium 4.1 3.4 - 4.9 mEq/L Chloride 104 95 - 107 mEq/L CO2 22 20 - 31 mEq/L Anion Gap 13 9 - 15 mEq/L Glucose 248 (H) 70 - 99 mg/dL BUN 13 6 - 20 mg/dL CREATININE 0.78 0.50 - 0.90 mg/dL GFR Non- >60.0 >60 GFR >60.0 >60 Calcium 9.0 8.5 - 9.9 mg/dL Total Protein 7.6 6.3 - 8.0 g/dL Albumin 4.3 3.5 - 4.6 g/dL Total Bilirubin 0.7 0.2 - 0.7 mg/dL Alkaline Phosphatase 102 40 - 130 U/L ALT 27 0 - 33 U/L AST 22 0 - 35 U/L Globulin 3.3 2.3 - 3.5 g/dL Troponin Collection Time: 04/03/22 5:30 AM Result Value Ref Range Troponin <0.010 0.000 - 0.010 ng/mL Brain Natriuretic Peptide Collection Time: 04/03/22 5:30 AM Result Value Ref Range Pro-BNP 4,734 pg/mL Protime-INR Collection Time: 04/03/22 5:30 AM Result Value Ref Range Protime 14.0 12.3 - 14.9 sec INR 1.1 APTT Collection Time: 04/03/22 5:30 AM Result Value Ref Range aPTT 27.5 24.4 - 36.8 sec D-Dimer, Quantitative Collection Time: 04/03/22 5:30 AM Result Value Ref Range D-Dimer, Quant 1.61 (HH) 0.00 - 0.50 mg/L FEU COVID-19, Rapid Collection Time: 04/03/22 7:17 AM Specimen: Nasopharyngeal Swab Result Value Ref Range SARS-CoV-2, NAAT Not Detected Not Detected Rapid Influenza A/B Antigens Collection Time: 04/03/22 7:17 AM Specimen: Nasopharyngeal Result Value Ref Range Influenza A by PCR Negative Influenza B by PCR Negative POCT Glucose Collection Time: 04/03/22 10:56 AM Result Value Ref Range POC Glucose 366 (H) 70 - 99 mg/dl Performed on ACCU-CHEK Procalcitonin Collection Time: 04/03/22 2:03 PM Result Value Ref Range Procalcitonin 0.06 0.00 - 0.15 ng/mL Troponin Collection Time: 04/03/22 2:03 PM Result Value Ref Range Troponin <0.010 0.000 - 0.010 ng/mL Hemoglobin A1c Collection Time: 04/03/22 2:03 PM Result Value Ref Range Hemoglobin A1C 10.0 (H) 4.8 - 5.9 % POCT Glucose Collection Time: 04/03/22 3:47 PM Result Value Ref Range POC Glucose 318 (H) 70 - 99 mg/dl Performed on ACCU-CHEK EKG 12 Lead Collection Time: 04/03/22 5:25 PM Result Value Ref Range Ventricular Rate 101 BPM Atrial Rate 101 BPM P-R Interval 160 ms QRS Duration 92 ms Q-T Interval 430 ms QTc Calculation (Bazett) 557 ms P [place] 68 degrees R [place] -22 degrees T [place] 224 degrees POCT Glucose Collection Time: 04/03/22 8:28 PM Result Value Ref Range POC Glucose 299 (H) 70 - 99 mg/dl Performed on ACCU-CHEK Troponin Collection Time: 04/03/22 9:35 PM Result Value Ref Range Troponin <0.010 0.000 - 0.010 ng/mL Comprehensive Metabolic Panel w/ Reflex to MG Collection Time: 04/04/22 5:46 AM Result Value Ref Range Sodium 137 135 - 144 mEq/L Potassium reflex Magnesium 3.3 (L) 3.4 - 4.9 mEq/L Chloride 95 95 - 107 mEq/L CO2 25 20 - 31 mEq/L Anion Gap 17 (H) 9 - 15 mEq/L Glucose 247 (H) 70 - 99 mg/dL BUN 24 (H) 6 - 20 mg/dL CREATININE 0.89 0.50 - 0.90 mg/dL GFR Non- >60.0 >60 GFR >60.0 >60 Calcium 9.2 8.5 - 9.9 mg/dL Total Protein 7.2 6.3 - 8.0 g/dL Albumin 3.8 3.5 - 4.6 g/dL Total Bilirubin 1.0 (H) 0.2 - 0.7 mg/dL Alkaline Phosphatase 101 40 - 130 U/L ALT 21 0 - 33 U/L AST 22 0 - 35 U/L Globulin 3.4 2.3 - 3.5 g/dL CBC with Auto Differential Collection Time: 04/04/22 5:46 AM Result Value Ref Range WBC 17.5 (H) 4.8 - 10.8 K/uL RBC 4.44 4.20 - 5.40 M/uL Hemoglobin 14.1 12.0 - 16.0 g/dL Hematocrit 41.4 37.0 - 47.0 % MCV 93.1 82.0 - 100.0 fL MCH 31.8 (H) 27.0 - 31.3 pg MCHC 34.1 33.0 - 37.0 % RDW 14.5 11.5 - 14.5 % Platelets 197 130 - 400 K/uL PLATELET SLIDE REVIEW Normal Neutrophils % 76.0 % Lymphocytes % 16.0 % Monocytes % 6.6 % Eosinophils % 0.2 % Basophils % 0.7 % Neutrophils Absolute 13.3 (H) 1.4 - 6.5 K/uL Lymphocytes Absolute 2.8 1.0 - 4.8 K/uL Monocytes Absolute 1.2 (H) 0.2 - 0.8 K/uL Eosinophils Absolute 0.0 0.0 - 0.7 K/uL Basophils Absolute 0.0 0.0 - 0.2 K/uL Plasma Cells Relative 1 % RBC Morphology Normal Brain Natriuretic Peptide Collection Time: 04/04/22 5:46 AM Result Value Ref Range Pro-BNP 4,169 pg/mL Magnesium Collection Time: 04/04/22 5:46 AM Result Value Ref Range Magnesium 2.0 1.7 - 2.4 mg/dL POCT Glucose Collection Time: 04/04/22 5:53 AM Result Value Ref Range POC Glucose 218 (H) 70 - 99 mg/dl Performed on ACCU-CHEK Procalcitonin Collection Time: 04/04/22 9:25 AM Result Value Ref Range Procalcitonin 0.07 0.00 - 0.15 ng/mL Urinalysis Collection Time: 04/04/22 11:15 AM Result Value Ref Range Color, UA Yellow Straw/Yellow Clarity, UA Clear Clear Glucose, Ur 100 (A) Negative mg/dL Bilirubin Urine Negative Negative Ketones, Urine Negative Negative mg/dL Specific [place], UA 1.012 1.005 - 1.030 Blood, Urine Negative Negative pH, UA 5.5 5.0 - 9.0 Protein, UA Negative Negative mg/dL Urobilinogen, Urine 1.0 <2.0 E.U./dL Nitrite, Urine Negative Negative Leukocyte Esterase, Urine SMALL (A) Negative Microscopic Urinalysis Collection Time: 04/04/22 11:15 AM Result Value Ref Range Bacteria, UA Negative Negative /HPF Trichomonas, UA Present (A) None Seen /HPF Hyaline Casts, UA 0-1 0 - 5 /HPF WBC, UA 10-20 (A) 0 - 5 /HPF RBC, UA 0-2 0 - 5 /HPF Epithelial Cells, UA 3-5 0 - 5 /HPF POCT Glucose Collection Time: 04/04/22 11:17 AM Result Value Ref Range POC Glucose 350 (H) 70 - 99 mg/dl Performed on ACCU-CHEK POCT Glucose Collection Time: 04/04/22 3:21 PM Result Value Ref Range POC Glucose 161 (H) 70 - 99 mg/dl Performed on ACCU-CHEK POCT Glucose Collection Time: 04/04/22 8:12 PM Result Value Ref Range POC Glucose 238 (H) 70 - 99 mg/dl Performed on ACCU-CHEK HIV Rapid 1&2 Collection Time: 04/04/22 10:40 PM Result Value Ref Range Rapid HIV 1&2 Negative Negative Hepatitis B Surface Antigen Collection Time: 04/04/22 10:40 PM Result Value Ref Range Hep B S Ag Interp Non-reactive EKG 12 Lead Collection Time: 04/05/22 5:28 AM Result Value Ref Range Ventricular Rate 81 BPM Atrial Rate 81 BPM P-R Interval 150 ms QRS Duration 100 ms Q-T Interval 428 ms QTc Calculation (Bazett) 497 ms P [place] 62 degrees R [place] -15 degrees T [place] 71 degrees CBC Collection Time: 04/05/22 5:54 AM Result Value Ref Range WBC 10.4 4.8 - 10.8 K/uL RBC 4.62 4.20 - 5.40 M/uL Hemoglobin 14.6 12.0 - 16.0 g/dL Hematocrit 42.8 37.0 - 47.0 % MCV 92.7 82.0 - 100.0 fL MCH 31.5 (H) 27.0 - 31.3 pg MCHC 34.0 33.0 - 37.0 % RDW 14.6 (H) 11.5 - 14.5 % Platelets 180 130 - 400 K/uL Basic Metabolic Panel Collection Time: 04/05/22 5:54 AM Result Value Ref Range Sodium 135 135 - 144 mEq/L Potassium 3.5 3.4 - 4.9 mEq/L Chloride 96 95 - 107 mEq/L CO2 28 20 - 31 mEq/L Anion Gap 11 9 - 15 mEq/L Glucose 175 (H) 70 - 99 mg/dL BUN 19 6 - 20 mg/dL CREATININE 0.86 0.50 - 0.90 mg/dL GFR Non- >60.0 >60 GFR >60.0 >60 Calcium 8.8 8.5 - 9.9 mg/dL POCT Glucose Collection Time: 04/05/22 6:18 AM Result Value Ref Range POC Glucose 154 (H) 70 - 99 mg/dl Performed on ACCU-CHEK normal EKG, normal sinus rhythm Follow-up visits: Callum Esquivel MD [address] [facility] [address] [phone] Call in 4 weeks Schedule an appointment as soon as possible, Hospital follow up SANGEETA Jeronimo [address] [facility] [address] [phone] Schedule an appointment as soon as possible for a visit in 1 week Schedule an appointment as soon as possible, Hospital follow up Assessment: Active Hospital Problems Diagnosis Date Noted New onset of congestive heart failure (HCC) [I50.9] 04/03/2022 Priority: Medium Plan: Follow-up in heart failure clinic in 1 to 2 weeks Follow-up with me in 3 to 4 weeks Continue Lasix and spironolactone Electronically signed by Callum Esquivel MDon 04/05/2022 at 8:53 AM documented in this encounter [facility] Submittable Phone: 08-17-2021 Note . MICRO - Microbiology PROCEDURE: Blood Culture (bacterial) [*1] SOURCE: Blood BODY SITE: COLLECTED DATE/TIME: 08/11/2021 22:19 EST RECEIVED DATE/TIME: 08/12/2021 04:23 EST START DATE/TIME: 08/12/2021 04:23 EST FREE TEXT SOURCE: FINAL REPORTS Final Report [] Verified Date/Time/Personnel: 08/17/2021 04:59 EST Blood Culture: No Growth at 5 days. PRELIMINARY REPORTS Preliminary Report [] Verified Date/Time/Personnel: 08/12/2021 04:59 EST Culture has been received in lab and is no growth to date. Routine cultures are held for 5 days. Performing Locations *1: This test was performed at: [address], [address] [place] [address] ([place]) 08-17-2021 Note . MICRO - Microbiology PROCEDURE: Blood Culture (bacterial) [*1] SOURCE: Blood BODY SITE: COLLECTED DATE/TIME: 08/11/2021 22:19 EST RECEIVED DATE/TIME: 08/12/2021 04:23 EST START DATE/TIME: 08/12/2021 04:23 EST FREE TEXT SOURCE: FINAL REPORTS Final Report [] Verified Date/Time/Personnel: 08/17/2021 04:59 EST Blood Culture: No Growth at 5 days. PRELIMINARY REPORTS Preliminary Report [] Verified Date/Time/Personnel: 08/12/2021 04:59 EST Culture has been received in lab and is no growth to date. Routine cultures are held for 5 days. Performing Locations *1: This test was performed at: [address], [address] [place] [address] ([place]) 08-13-2021 Hospital Discharge instructions Patient Education 08/13/2021 13:20:11 Steps to Quit Smoking, [id number] Steps to Quit Smoking Smoking tobacco is the leading cause of preventable . It can affect almost every organ in the body. Smoking puts you and people around you at risk for many serious, long-lasting (chronic) diseases. Quitting smoking can be hard, but it is one of the best things that you can do for your health. It is never too late to quit. How do I get ready to quit? When you decide to quit smoking, make a plan to help you succeed. Before you quit: Pick a date to quit. Set a date within the next 2 weeks to give you time to prepare. Write down the reasons why you are quitting. Keep this list in places where you will see it often. Tell your family, friends, and co-workers that you are quitting. Their support is important. Talk with your doctor about the choices that may help you quit. Find out if your health insurance will pay for these treatments. Know the people, places, things, and activities that make you want to smoke (triggers). Avoid them. What first steps can I take to quit smoking? Throw away all cigarettes at home, at work, and in your car. Throw away the things that you use when you smoke, such as ashtrays and lighters. Clean your car. Make sure to empty the ashtray. Clean your home, including curtains and carpets. What can I do to help me quit smoking? Talk with your doctor about taking medicines and seeing a counselor at the same time. You are more likely to succeed when you do both. If you are or , talk with your doctor about counseling or other ways to quit smoking. Do not take medicine to help you quit smoking unless your doctor tells you to do so. To quit smoking: Quit right away Quit smoking totally, instead of slowly cutting back on how much you smoke over a period of time. Go to counseling. You are more likely to quit if you go to counseling sessions regularly. Take medicine You may take medicines to help you quit. Some medicines need a prescription, and some you can buy [id number]. Some medicines may contain a drug called nicotine to replace the nicotine in cigarettes. Medicines may: Help you to stop having the desire to smoke (cravings). Help to stop the problems that come when you stop smoking (withdrawal symptoms). Your doctor may ask you to use: Nicotine patches, gum, or lozenges. Nicotine inhalers or sprays. Non-nicotine medicine that is taken by mouth. Find resources Find resources and other ways to help you quit smoking and remain smoke-free after you quit. These resources are most helpful when you use them often. They include: Online chats with a counselor. Phone quitlines. Printed self-help materials. Support groups or group counseling. Text messaging programs. Mobile phone apps. Use apps on your mobile phone or tablet that can help you stick to your quit plan. There are many free apps for mobile phones and tablets as well as websites. Examples include Quit Guide from the CDC and smokefree.gov What things can I do to make it easier to quit? Talk to your family and friends. Ask them to support and encourage you. Call a phone quitline (7-135-KFRH-NOW), reach out to support groups, or work with a counselor. Ask people who smoke to not smoke around you. Avoid places that make you want to smoke, such as: ?Bars. ?Parties. ?Smoke-break areas at work. Spend time with people who do not smoke. Lower the stress in your life. Stress can make you want to smoke. Try these things to help your stress: ?Getting regular exercise. ?Doing deep-breathing exercises. ?Doing yoga. ?Meditating. ?Doing a body scan. To do this, close your eyes, focus on one area of your body at a time from head to toe. Notice which parts of your body are tense. Try to relax the muscles in those areas. How will I feel when I quit smoking? Day 1 to 3 weeks Within the first 24 hours, you may start to have some problems that come from quitting tobacco. These problems are very bad 2 3 days after you quit, but they do not often last for more than 2 3 weeks. You may get these symptoms: Mood swings. Feeling restless, nervous, angry, or annoyed. Trouble concentrating. Dizziness. Strong desire for high-sugar foods and nicotine. Weight gain. Trouble pooping (constipation). Feeling like you may vomit (nausea). Coughing or a sore throat. Changes in how the medicines that you take for other issues work in your body. Depression. Trouble sleeping (insomnia). Week 3 and afterward After the first 2 3 weeks of quitting, you may start to notice more positive results, such as: Better sense of smell and taste. Less coughing and sore throat. Slower heart rate. Lower blood pressure. Clearer skin. Better breathing. Fewer sick days. Quitting smoking can be hard. Do not give up if you fail the first time. Some people need to try a few times before they succeed. Do your best to stick to your quit plan, and talk with your doctor if you have any questions or concerns. Summary Smoking tobacco is the leading cause of preventable . Quitting smoking can be hard, but it is one of the best things that you can do for your health. When you decide to quit smoking, make a plan to help you succeed. Quit smoking right away, not slowly over a period of time. When you start quitting, seek help from your doctor, family, or friends. This information is not intended to replace advice given to you by your health care provider. Make sure you discuss any questions you have with your health care provider. Document Released: 07/08/2010 Document Revised: 11/29/2019 Document Reviewed: 11/30/2019 [employer] Patient Education 2020 [email or web address]. 08/13/2021 13:19:51 Health Risks of Smoking Health Risks of Smoking Smoking cigarettes is very bad for your health. Tobacco smoke has over 200 known poisons in it. It contains the poisonous gases nitrogen oxide and carbon monoxide. There are over 60 chemicals in tobacco smoke that cause cancer. Smoking is difficult to quit because a chemical in tobacco, called nicotine, causes addiction or dependence. When you smoke and inhale, nicotine is absorbed rapidly into the bloodstream through your lungs. Both inhaled and non-inhaled nicotine may be addictive. What are the risks of cigarette smoke? Cigarette smokers have an increased risk of many serious medical problems, including: Lung cancer. Lung disease, such as pneumonia, bronchitis, and emphysema. Chest pain (angina) and heart attack because the heart is not getting enough oxygen. Heart disease and peripheral blood vessel disease. High blood pressure (hypertension). Stroke. Oral cancer, including cancer of the lip, mouth, or voice box. Bladder cancer. Pancreatic cancer. Cervical cancer. complications, including premature . Stillbirths and smaller babies, defects, and genetic damage to sperm. Early menopause. Lower estrogen level for women. Infertility. Facial wrinkles. Blindness. Increased risk of broken bones (fractures). Senile dementia. Stomach ulcers and internal bleeding. Delayed wound healing and increased risk of complications during surgery. Even smoking lightly shortens your life expectancy by several years. Because of secondhand smoke exposure, children of smokers have an increased risk of the following: Sudden syndrome (SIDS). Respiratory infections. Lung cancer. Heart disease. Ear infections. What are the benefits of quitting? There are many health benefits of quitting smoking. Here are some of them: Within days of quitting smoking, your risk of having a heart attack decreases, your blood flow improves, and your lung capacity improves. Blood pressure, pulse rate, and breathing patterns start returning to normal soon after quitting. Within months, your lungs may clear up completely. Quitting for 10 years reduces your risk of developing lung cancer and heart disease to almost that of a nonsmoker. People who quit may see an improvement in their overall quality of life. How do I quit smoking? Smoking is an addiction with both physical and psychological effects, and longtime habits can be hard to change. Your health care provider can recommend: Programs and community resources, which may include group support, education, or talk therapy. Prescription medicines to help reduce cravings. Nicotine replacement products, such as patches, gum, and nasal sprays. Use these products only as directed. Do not replace cigarette smoking with electronic cigarettes, which are commonly called e-cigarettes. The safety of e-cigarettes is not known, and some may contain harmful chemicals. A combination of two or more of these methods. Where to find more information [place] [employer]: www.lung.org [place] [employer]: www.cancer.org Summary Smoking cigarettes is very bad for your health. Cigarette smokers have an increased risk of many serious medical problems, including several cancers, heart disease, and stroke. Smoking is an addiction with both physical and psychological effects, and longtime habits can be hard to change. By stopping right away, you can greatly reduce the risk of medical problems for you and your family. To help you quit smoking, your health care provider can recommend programs, community resources, prescription medicines, and nicotine replacement products such as patches, gum, and nasal sprays. This information is not intended to replace advice given to you by your health care provider. Make sure you discuss any questions you have with your health care provider. Document Released: 10/19/2005 Document Revised: 12/13/2018 Document Reviewed: 09/15/2017 [employer] Patient Education 2020 [email or web address]. 08/13/2021 13:19:42 COVID-19 Prevent the Spread of COVID-19 If You Are Sick (02/11/2020) (CUSTOM) Prevent the Spread of COVID-19 If You Are Sick Accessible version: https://www.cdc.gov/coronavirus/201 9-ncov/mp-cxd-fxy-sick/qkiur-epky-r ick.html If you are sick with COVID-19 or think you might have COVID-19, follow the steps below to help protect other people in your home and community. Stay home except to get medical care. Stay home. Most people with COVID-19 have mild illness and are able to recover at home without medical care. Do not leave your home, except to get medical care. Do not visit public areas. Take care of yourself. Get rest and stay hydrated. Get medical care when needed. Call your doctor before you go to their office for care. But, if you have trouble breathing or other concerning symptoms, call 911 for immediate help. Avoid public transportation, ride-sharing, or taxis. Separate yourself from other people and pets in your home. As much as possible, stay in a specific room and away from other people and pets in your home. Also, you should use a separate bathroom, if available. If you need to be around other people or animals in or outside of the home, wear a cloth face covering. See COVID-19 and Animals if you have questions about pets: https://www.cdc.gov/coronavirus/201 9ncov/faq.html#PIALR22dfkzdkn Monitor your symptoms. Common symptoms of COVID-19 include fever and cough. Trouble breathing is a more serious symptom that means you should get medical attention. Follow care instructions from your healthcare provider and local health department. Your local health authorities will give instructions on checking your symptoms and reporting information. If you develop emergency warning signs for COVID-19 get medical attention immediately. Emergency warning signs include*: Trouble breathing Persistent pain or pressure in the chest New confusion or not able to be woken Bluish lips or face *This list is not all inclusive. Please consult your medical provider for any other symptoms that are severe or concerning to you. Call 911 if you have a medical emergency. If you have a medical emergency and need to call 911, notify the dairy farm operator that you have or think you might have, COVID-19. If possible, put on a facemask before medical help arrives Call ahead before visiting your doctor. Call ahead. Many medical visits for routine care are being postponed or done by phone or telemedicine. If you have a medical appointment that cannot be postponed, call your doctor s office. This will help the office protect themselves and other patients. If you are sick, wear a cloth covering over your nose and mouth. You should wear a cloth face covering over your nose and mouth if you must be around other people or animals, including pets (even at home). You don t need to wear the cloth face covering if you are alone. If you can t put on a cloth face covering (because of trouble breathing for example), cover your coughs and sneezes in some other way. Try to stay at least 6 feet away from other people. This will help protect the people around you. Note: During the COVID-19 pandemic, medical grade facemasks are reserved for healthcare workers and some first responders. You may need to make a cloth face covering using a scarf or bandana. Cover your coughs and sneezes. Cover your mouth and nose with a tissue when you cough or sneeze. Throw used tissues in a lined trash can. Immediately wash your hands with soap and water for at least 20 seconds. If soap and water are not available, clean your hands with an alcohol-based hand bead flipper that contains at least 60% alcohol. Clean your hands often. Wash your hands often with soap and water for at least 20 seconds. This is especially important after blowing your nose, coughing, or sneezing; going to the bathroom; and before eating or preparing food. Use hand bead flipper if soap and water are not available. Use an alcohol-based hand bead flipper with at least 60% alcohol, covering all surfaces of your hands and rubbing them together until they feel dry. Soap and water are the best option, especially if your hands are visibly dirty. \\ Avoid touching your eyes, nose, and mouth with unwashed hands. Avoid sharing personal household items. Do not share dishes, drinking glasses, cups, eating utensils, towels, or bedding with other people in your home. Wash these items thoroughly after using them with soap and water or put them in the service secretary. Clean all high-touch surfaces everyday. Clean and disinfect high-touch surfaces in your sick room and bathroom. Let someone else clean and disinfect surfaces in common areas, but not your bedroom and bathroom. If a caregiver or other person needs to clean and disinfect a sick person s bedroom or bathroom, they should do so on an as-needed basis. The caregiver/other person should wear a mask and wait as long as possible after the sick person has used the bathroom High-touch surfaces include phones, remote controls, counters, tabletops, doorknobs, bathroom fixtures, toilets, keyboards, tablets, and bedside tables. Clean and disinfect areas that may have blood, stool, or body fluids on them. Use household coremaker and disinfectants. Clean the area or item with soap and water or another detergent if it is dirty. Then use a household disinfectant. Be sure to follow the instructions on the label to ensure safe and effective use of the product. Many products recommend keeping the surface wet for several minutes to ensure germs are killed. Many also recommend precautions such as wearing gloves and making sure you have good ventilation during use of the product. Most EPA-registered household disinfectants should be effective. How to discontinue home isolation. People with COVID-19 who have stayed home (home isolated) can stop home isolation under the following conditions: If you will not have a test to determine if you are still contagious, you can leave home after these three things have happened: You have had no fever for at least 72 hours (that is three full days of no fever without the use of medicine that reduces fevers) AND other symptoms have improved (for example, when your cough or shortness of breath has improved) AND at least 10 days have passed since your symptoms first appeared. If you will be tested to determine if you are still contagious, you can leave home after these three things have happened: You no longer have a fever (without the use of medicine that reduces fevers) AND other symptoms have improved (for example, when your cough or shortness of breath has improved) AND you received two negative tests in a row, 24 hours apart. Your doctor will follow CDC guidelines. In all cases, follow the guidance of your healthcare provider and local health department. The decision to stop home isolation should be made in consultation with your healthcare provider and state and local health departments. Local decisions depend on local circumstances. cdc.gov/coronavirus 08/13/2021 13:14:22 DASH Eating Plan DASH Eating Plan DASH stands for "Dietary Approaches to Stop Hypertension." The DASH eating plan is a healthy eating plan that has been shown to reduce high blood pressure (hypertension). It may also reduce your risk for type 2 diabetes, heart disease, and stroke. The DASH eating plan may also help with weight loss. What are tips for following this plan? General guidelines Avoid eating more than 2,300 mg (milligrams) of salt (sodium) a day. If you have hypertension, you may need to reduce your sodium intake to 1,500 mg a day. Limit alcohol intake to no more than 1 drink a day for non women and 2 drinks a day for men. One drink equals 12 oz of beer, 5 oz of wine, or 1 oz of hard liquor. Work with your health care provider to maintain a healthy body weight or to lose weight. Ask what an ideal weight is for you. Get at least 30 minutes of exercise that causes your heart to beat faster (aerobic exercise) most days of the week. Activities may include walking, swimming, or biking. Work with your health care provider or diet and institutional nutrition consultant (dietitian) to adjust your eating plan to your individual calorie needs. Reading food labels Check food labels for the amount of sodium per serving. Choose foods with less than 5 percent of the Daily Value of sodium. Generally, foods with less than 300 mg of sodium per serving fit into this eating plan. To find whole grains, look for the word "whole" as the first word in the ingredient list. Shopping Buy products labeled as "low-sodium" or "no salt added." Buy fresh foods. Avoid canned foods and premade or frozen meals. Cooking Avoid adding salt when cooking. Use salt-free seasonings or herbs instead of table salt or sea salt. Check with your health care provider or pharmacist before using salt substitutes. Do not garnett foods. Cook foods using healthy methods such as baking, boiling, grilling, and broiling instead. Cook with heart-healthy oils, such as olive, canola, soybean, or sunflower oil. Meal planning Eat a balanced diet that includes: ?5 or more servings of fruits and vegetables each day. At each meal, try to fill half of your plate with fruits and vegetables. ?Up to 6 8 servings of whole grains each day. ?Less than 6 oz of lean meat, poultry, or fish each day. A 3-oz serving of meat is about the same size as a deck of cards. One egg equals 1 oz. ?2 servings of low-fat dairy each day. ?A serving of nuts, seeds, or beans 5 times each week. ?Heart-healthy fats. Healthy fats called [place]-3 fatty acids are found in foods such as flaxseeds and coldwater fish, like sardines, salmon, and mackerel. Limit how much you eat of the following: ?Canned or prepackaged foods. ?Food that is high in trans fat, such as fried foods. ?Food that is high in saturated fat, such as fatty meat. ?Sweets, desserts, sugary drinks, and other foods with added sugar. ?Full-fat dairy products. Do not salt foods before eating. Try to eat at least 2 vegetarian meals each week. Eat more home-cooked food and less restaurant, buffet, and fast food. When eating at a restaurant, ask that your food be prepared with less salt or no salt, if possible. What foods are recommended? The items listed may not be a complete list. Talk with your dietitian about what dietary choices are best for you. Grains Whole-grain or whole-wheat bread. Whole-grain or whole-wheat pasta. Brown rice. Oatmeal. Quinoa. Bulgur. Whole-grain and low-sodium cereals. Nancy bread. Low-fat, low-sodium crackers. Whole-wheat flour tortillas. Vegetables Fresh or frozen vegetables (raw, steamed, roasted, or grilled). Low-sodium or reduced-sodium tomato and vegetable juice. Low-sodium or reduced-sodium tomato sauce and tomato paste. Low-sodium or reduced-sodium canned vegetables. Fruits All fresh, dried, or frozen fruit. Canned fruit in natural juice (without added sugar). Meat and other protein foods Skinless chicken or turkey. Ground chicken or turkey. Pork with fat trimmed off. Fish and seafood. Egg whites. Dried beans, peas, or lentils. Unsalted nuts, nut butters, and seeds. Unsalted canned beans. Lean cuts of beef with fat trimmed off. Low-sodium, lean deli meat. Dairy Low-fat (1%) or fat-free (skim) milk. Fat-free, low-fat, or reduced-fat cheeses. Nonfat, low-sodium ricotta or cottage cheese. Low-fat or nonfat yogurt. Low-fat, low-sodium cheese. Fats and oils Soft margarine without trans fats. Vegetable oil. Low-fat, reduced-fat, or light mayonnaise and salad dressings (reduced-sodium). Canola, safflower, olive, soybean, and sunflower oils. Avocado. Seasoning and other foods Herbs. Spices. Seasoning mixes without salt. Unsalted popcorn and pretzels. Fat-free sweets. What foods are not recommended? The items listed may not be a complete list. Talk with your dietitian about what dietary choices are best for you. Grains Baked goods made with fat, such as croissants, muffins, or some breads. Dry pasta or rice meal packs. Vegetables Creamed or fried vegetables. Vegetables in a cheese sauce. Regular canned vegetables (not low-sodium or reduced-sodium). Regular canned tomato sauce and paste (not low-sodium or reduced-sodium). Regular tomato and vegetable juice (not low-sodium or reduced-sodium). Pickles. Olives. Fruits Canned fruit in a light or heavy syrup. Fried fruit. Fruit in cream or butter sauce. Meat and other protein foods Fatty cuts of meat. Ribs. Fried meat. Cheung. Sausage. Bologna and other processed lunch meats. Salami. Fatback. Hotdogs. Bratwurst. Salted nuts and seeds. Canned beans with added salt. Canned or smoked fish. Whole eggs or egg yolks. Chicken or turkey with skin. Dairy Whole or 2% milk, cream, and [id number]. Whole or full-fat cream cheese. Whole-fat or sweetened yogurt. Full-fat cheese. Nondairy creamers. Whipped toppings. Processed cheese and cheese spreads. Fats and oils Butter. Stick margarine. Lard. Shortening. Ghee. Cheung fat. Tropical oils, such as coconut, palm kernel, or palm oil. Seasoning and other foods Salted popcorn and pretzels. Onion salt, garlic salt, seasoned salt, table salt, and sea salt. Worcestershire sauce. Tartar sauce. Barbecue sauce. Teriyaki sauce. Soy sauce, including reduced-sodium. Steak sauce. Canned and packaged gravies. Fish sauce. Oyster sauce. Cocktail sauce. Horseradish that you find on the shelf. Ketchup. Mustard. Meat flavorings and tenderizers. Bouillon cubes. Hot sauce and Tabasco sauce. Premade or packaged marinades. Premade or packaged taco seasonings. Relishes. Regular salad dressings. Where to find more information: National Heart, Lung, and Blood [place]: www.nhlbi.nih.gov [place] [employer]: www.heart.org Summary The DASH eating plan is a healthy eating plan that has been shown to reduce high blood pressure (hypertension). It may also reduce your risk for type 2 diabetes, heart disease, and stroke. With the DASH eating plan, you should limit salt (sodium) intake to 2,300 mg a day. If you have hypertension, you may need to reduce your sodium intake to 1,500 mg a day. When on the DASH eating plan, aim to eat more fresh fruits and vegetables, whole grains, lean proteins, low-fat dairy, and heart-healthy fats. Work with your health care provider or diet and institutional nutrition consultant (dietitian) to adjust your eating plan to your individual calorie needs. This information is not intended to replace advice given to you by your health care provider. Make sure you discuss any questions you have with your health care provider. Document Released: 08/30/2012 Document Revised: 08/24/2018 Document Reviewed: 09/04/2017 [employer] Patient Education 2020 [email or web address]. 08/13/2021 13:14:11 Heart Failure Heart Failure Heart failure is a condition in which the heart has trouble pumping blood because it has become weak or stiff. This means that the heart does not pump blood efficiently for the body to work well. For some people with heart failure, fluid may back up into the lungs and there may be swelling (edema) in the lower legs. Heart failure is usually a long-term (chronic) condition. It is important for you to take good care of yourself and follow the treatment plan from your health care provider. What are the causes? This condition is caused by some health problems, including: High blood pressure (hypertension). Hypertension causes the heart muscle to work harder than normal. High blood pressure eventually causes the heart to become stiff and weak. Coronary artery disease (CAD). CAD is the buildup of cholesterol and fat (plaques) in the arteries of the heart. Heart attack (myocardial infarction). Injured tissue, which is caused by the heart attack, does not contract as well and the heart's ability to pump blood is weakened. Abnormal heart valves. When the heart valves do not open and close properly, the heart muscle must pump harder to keep the blood flowing. Heart muscle disease (cardiomyopathy or myocarditis). Heart muscle disease is damage to the heart muscle from a variety of causes, such as drug or alcohol abuse, infections, or unknown causes. These can increase the risk of heart failure. Lung disease. When the lungs do not work properly, the heart must work harder. What increases the risk? Risk of heart failure increases as a person ages. This condition is also more likely to develop in people who: Are overweight. Are male. Smoke or chew tobacco. Abuse alcohol or illegal drugs. Have taken medicines that can damage the heart, such as chemotherapy drugs. Have diabetes. ?High blood sugar (glucose) is associated with high fat (lipid) levels in the blood. ?Diabetes can also damage tiny blood vessels that carry nutrients to the heart muscle. Have abnormal heart rhythms. Have thyroid problems. Have low blood counts (anemia). What are the signs or symptoms? Symptoms of this condition include: Shortness of breath with activity, such as when climbing stairs. Persistent cough. Swelling of the feet, ankles, legs, or abdomen. Unexplained weight gain. Difficulty breathing when lying flat (orthopnea). Waking from sleep because of the need to sit up and get more air. Rapid heartbeat. Fatigue and loss of energy. Feeling light-headed, dizzy, or close to fainting. Loss of appetite. Nausea. Increased urination during the night (nocturia). Confusion. How is this diagnosed? This condition is diagnosed based on: Medical history, symptoms, and a physical exam. Diagnostic tests, which may include: ?Echocardiogram. ?Electrocardiogram (ECG). ?Chest X-ray. ?Blood tests. ?Exercise stress test. ?Radionuclide scans. ?Cardiac catheterization and angiogram. How is this treated? Treatment for this condition is aimed at managing the symptoms of heart failure. Medicines, behavioral changes, or other treatments may be necessary to treat heart failure. Medicines These may include: Angiotensin-converting enzyme (JAQUELINE) inhibitors. This type of medicine blocks the effects of a blood protein called angiotensin-converting enzyme. JAQUELINE inhibitors relax (dilate) the blood vessels and help to lower blood pressure. Angiotensin receptor blockers (ARBs). This type of medicine blocks the actions of a blood protein called angiotensin. ARBs dilate the blood vessels and help to lower blood pressure. Water pills (diuretics). Diuretics cause the kidneys to remove salt and water from the blood. The extra fluid is removed through urination, leaving a lower volume of blood that the heart has to pump. Beta blockers. These improve heart muscle strength and they prevent the heart from beating too quickly. Digoxin. This increases the force of the heartbeat. Healthy behavior changes These may include: Reaching and maintaining a healthy weight. Stopping smoking or chewing tobacco. Eating heart-healthy foods. Limiting or avoiding alcohol. Stopping use of street drugs (illegal drugs). Physical activity. Other treatments These may include: Surgery to open blocked coronary arteries or repair damaged heart valves. Placement of a biventricular pacemaker to improve heart muscle function (cardiac resynchronization therapy). This device paces both the right ventricle and left ventricle. Placement of a device to treat serious abnormal heart rhythms (implantable cardioverter defibrillator, or ICD). Placement of a device to improve the pumping ability of the heart (left ventricular assist device, or LVAD). Heart transplant. This can cure heart failure, and it is considered for certain patients who do not improve with other therapies. Follow these instructions at home: Medicines Take [id number] and prescription medicines only as told by your health care provider. Medicines are important in reducing the workload of your heart, slowing the progression of heart failure, and improving your symptoms. ?Do not stop taking your medicine unless your health care provider told you to do that. ?Do not skip any dose of medicine. ?Refill your prescriptions before you run out of medicine. You need your medicines every day. Eating and drinking Eat heart-healthy foods. Talk with a dietitian to make an eating plan that is right for you. ?Choose foods that contain no trans fat and are low in saturated fat and cholesterol. Healthy choices include fresh or frozen fruits and vegetables, fish, lean meats, legumes, fat-free or low-fat dairy products, and whole-grain or high-fiber foods. ?Limit salt (sodium) if directed by your health care provider. Sodium restriction may reduce symptoms of heart failure. Ask a dietitian to recommend heart-healthy seasonings. ?Use healthy cooking methods instead of frying. Healthy methods include roasting, grilling, broiling, baking, poaching, steaming, and stir-frying. Limit your fluid intake if directed by your health care provider. Fluid restriction may reduce symptoms of heart failure. Lifestyle Stop smoking or using chewing tobacco. Nicotine and tobacco can damage your heart and your blood vessels. Do not use nicotine gum or patches before talking to your health care provider. Limit alcohol intake to no more than 1 drink per day for non- women and 2 drinks per day for men. One drink equals 12 oz of beer, 5 oz of wine, or 1 oz of hard liquor. ?Drinking more than that is harmful to your heart. Tell your health care provider if you drink alcohol several times a week. ?Talk with your health care provider about whether any level of alcohol use is safe for you. ?If your heart has already been damaged by alcohol or you have severe heart failure, drinking alcohol should be stopped completely. Stop use of illegal drugs. Lose weight if directed by your health care provider. Weight loss may reduce symptoms of heart failure. Do moderate physical activity if directed by your health care provider. People who are elderly and people with severe heart failure should consult with a health care provider for physical activity recommendations. Monitor important information Weigh yourself every day. Keeping track of your weight daily helps you to notice excess fluid sooner. ?Weigh yourself every morning after you urinate and before you eat breakfast. ?Wear the same amount of clothing each time you weigh yourself. ?Record your daily weight. Provide your health care provider with your weight record. Monitor and record your blood pressure as told by your health care provider. Check your pulse as told by your health care provider. Dealing with extreme temperatures If the weather is extremely hot: ?Avoid vigorous physical activity. ?Use air conditioning or fans or seek a cooler location. ?Avoid caffeine and alcohol. ?Wear loose-fitting, lightweight, and light-colored clothing. If the weather is extremely cold: ?Avoid vigorous physical activity. ?Layer your clothes. ?Wear mittens or gloves, a hat, and a scarf when you go outside. ?Avoid alcohol. General instructions Manage other health conditions such as hypertension, diabetes, thyroid disease, or abnormal heart rhythms as told by your health care provider. Learn to manage stress. If you need help to do this, ask your health care provider. Plan rest periods when fatigued. Get ongoing education and support as needed. Participate in or seek rehabilitation as needed to maintain or improve independence and quality of life. Stay up to date with immunizations. Keeping current on pneumococcal and influenza immunizations is especially important to prevent respiratory infections. Keep all follow-up visits as told by your health care provider. This is important. Contact a health care provider if: You have a rapid weight gain. You have increasing shortness of breath that is unusual for you. You are unable to participate in your usual physical activities. You tire easily. You cough more than normal, especially with physical activity. You have any swelling or more swelling in areas such as your hands, feet, ankles, or abdomen. You are unable to sleep because it is hard to breathe. You feel like your heart is beating quickly (palpitations). You become dizzy or light-headed when you stand up. Get help right away if: You have difficulty breathing. You notice or your family notices a change in your awareness, such as having trouble staying awake or having difficulty with concentration. You have pain or discomfort in your chest. You have an episode of fainting (syncope). This information is not intended to replace advice given to you by your health care provider. Make sure you discuss any questions you have with your health care provider. Document Released: 09/11/2006 Document Revised: 08/10/2018 Document Reviewed: 04/05/2017 [employer] Patient Education 2019 [employer] 08/13/2021 13:14:05 Heart Failure Medicines Heart Failure Medicines Heart failure is a condition in which the heart cannot pump enough blood through the body. This can cause symptoms such as shortness of breath, fatigue, and confusion. There are two types of heart failure: Heart failure with reduced ejection fraction. In this type, the heart muscle is weak. Heart failure with preserved ejection fraction. In this type, the heart muscle does not fill with blood properly and may be stiff. There is no cure for heart failure. However, being treated with medicines and following your health care provider's instructions about a healthy lifestyle can help you stay active, avoid problems, and live longer. Talk to your health care provider about all medicines that you are taking, how often you should take them, and what possible problems (side effects) they may cause. Talk with your health care provider if you have difficulty affording your medicines. What are some common medicines for heart failure? The medicines that are prescribed for you will depend on your symptoms, the type of heart failure you have, and the cause of your heart failure. In some cases, you may need to take more than one medicine. You will be prescribed the following medicines according to your type of heart failure: Heart failure with reduced ejection fraction Beta-blockers. Angiotensin-converting enzyme (JAQUELINE) inhibitors. Angiotensin II receptor blockers (ARBs). Angiotensin receptor neprilysin inhibitors (ARNIs). Aldosterone antagonists. Diuretics. Digoxin. Nitrates. Heart failure with preserved ejection fraction Medicines to control blood pressure, including: ?Beta-blockers. ?Angiotensin-converting enzyme (JAQUELINE) inhibitors. ?Angiotensin II receptor blockers (ARBs). Diuretics. Aldosterone antagonists. What should I know about beta-blockers? These medicines lower your blood pressure and slow your heart rate. This helps to lessen your heart's workload. They can help to relieve chest pain (angina). They can help to improve your heart's ability to pump. They may cause asthma attacks and shortness of breath. Because these medicines slow your heart rate, it is important not to overwork yourself while exercising. Talk to your health care provider about what your target heart rate should be while you exercise. These medicines can hide the symptoms of low blood sugar (glucose), which is also called hypoglycemia. If you have diabetes, make sure to check your blood glucose carefully. If you have hypoglycemia, talk to your health care provider about adjusting your medicines. Beta-blockers may make you feel dizzy or light-headed at first. Do not drive or use heavy machinery when you first start these medicines. Ask your health care provider when it is safe for you to drive. What should I know about JAQUELINE inhibitors or ARBs? These medicines help to widen arteries and veins. This action lowers your blood pressure and lessens the strain on your heart, making it easier for your heart to pump. They can help to lessen the symptoms of heart failure. ARBs are often used if a person cannot take JAQUELINE inhibitors. JAQUELINE inhibitors may cause a dry cough. In rare cases, JAQUELINE inhibitors and ARBs can cause swelling of the tongue or lips, other swelling, taste problems, and skin rashes. If these symptoms occur, stop taking the medicines and contact your health care provider. Do not take JAQUELINE inhibitors if you are or may become . These medicines can cause health problems in an unborn baby. These medicines may cause dizziness. You may need regular checkups and blood tests to monitor how they are working. What should I know about ARNIs? These medicines are a combination of an ARB and another medicine. They lower your blood pressure. Side effects may include dry cough, dizziness, low blood pressure, and kidney problems. Do not take ARNIs if you are already taking JAQUELINE inhibitors or ARBs. You may notice increased urination when taking these medicines. ARNIs can raise the amount of potassium in the blood. Your potassium levels will be monitored regularly by your health care provider. What should I know about aldosterone antagonists? They help the body to remove excess sodium through urination. This helps to lessen the amount of blood that the heart needs to pump. They can also help to lower blood pressure and improve the heart's ability to pump blood. They may cause dizziness, diarrhea, coughing, or flu-like symptoms. They should not be used if you have type 2 diabetes. They can raise the amount of potassium in the blood. Your potassium levels will be monitored regularly by your health care provider. These medicines can make men's breasts large and tender. What should I know about diuretics? Diuretics are medicines that help the body get rid of excess fluid through urination. They can also help lessen your heart's workload. They help to lessen fluid buildup in the lungs, ankles, and feet. They help to lower your blood pressure. They can worsen problems with controlling urination (urinary incontinence). They may cause dizziness, headaches, muscle cramps, and an upset stomach. They can cause weak muscles, dry mouth, or confusion. It is important to drink plenty of fluids while taking these medicines, especially while exercising or on hot days. What should I know about digoxin? Digoxin helps the heart pump more blood efficiently. It also lowers your heart rate. It can help ease heart failure symptoms and may be used if other medicines do not work. It can also help with irregular heartbeat (arrhythmia). It may cause stomach problems, fatigue, headache, drowsiness, or vision problems. What should I know about nitrates? Nitrates relax the blood vessels and increase oxygen and blood supply to the heart. They also lower the blood pressure. They are usually taken to lessen chest pain. They may cause headaches, flushing, or irregular heartbeat. Summary A healthy lifestyle and treatment with medicine will relieve symptoms of heart failure. In some cases, you may need to take more than one medicine. It is important to talk to your health care provider about how often you should take your medicines. Do not skip a dose or change your dosage. Talk to your health care provider about possible side effects of these medicines. This information is not intended to replace advice given to you by your health care provider. Make sure you discuss any questions you have with your health care provider. Document Released: 01/26/2018 Document Revised: 09/26/2018 Document Reviewed: 01/26/2018 [employer] Patient Education 2020 [email or web address]. Follow Up Care 08/10/2021 11:45:44 With:SARAH IVERSONELECTRICAL CAD DESIGNER Address: [address] [facility] [place] [address]- [phone] When:08/16/2021 14:00:00 With:YAMILETH NOVOA MD Address: [address] [place] [address] [address] [facility] [place] [address]- [phone] When:08/17/2021 14:30:00 [facility] 08-13-2021 Note . MICRO - Microbiology PROCEDURE: Urine Culture [*1] SOURCE: Urine BODY SITE: COLLECTED DATE/TIME: 08/11/2021 22:45 EST RECEIVED DATE/TIME: 08/11/2021 23:03 EST START DATE/TIME: 08/11/2021 23:03 EST FREE TEXT SOURCE: FINAL REPORTS Final Report [] Verified Date/Time/Personnel: 08/13/2021 07:38 EST <10,000 cfu/ml. No Significant growth. Sensitivity not indicated. PRELIMINARY REPORTS Preliminary Report [] Verified Date/Time/Personnel: 08/12/2021 11:13 EST No growth to date Performing Locations *1: This test was performed at: [facility], [address] [place] [address], [phone] , [facility] ([place]) 08-12-2021 HCoV 229E RNA SHAI+non-probe Ql (Nph) Not Detected *NA* (08/12/21 2:29 PM) [facility] Viro/Sero SS 08-09-2021 Evaluation + Plan note Extrac fabio from: Title:History and Physical Author:REDDY JUAN APRN-ELECTRICAL CAD DESIGNER Date:08/09/21 1. Hypertensive emergency 2. SOB - Shortness of breath 3. Anasarca 4. Hyperglycemia 5. 4 mm right upper lobe lung nodule. 6. Morbid obesity 7. Tobacco abuse 8. Constipation Hypertensive urgency-patient does not take any medications at home for hypertension. Has been several years since she has been evaluated by physician. Elevated troponins likely secondary to hypertensive emergency. Lisinopril 20mg added. Will continue to closely monitor. Anasarca/fluid overload- ECHO pending. Lasix 40mg BID IVP. Will repeat troponins. Hyperglycemia- likely undiagnosed diabetes mellitus. Will obtain A1C. ADA diet. Sliding scale added. Constipation we will add daily MiraLAX. As needed to collect suppository available DVT Prophylaxis- Lovenox 40mg Qday. I did briefly school counselor the patient on smoking cessation and offer nicotine replacement therapy. At this time the patient is declining nicotine replacement therapy, and is not interested in smoking cessation. >40 year smoking. Will obtain old records. 4 mm right upper lobe lung nodule. Will need repeat imaging. End of life discussion at bedside with patient. In the event of a cardiopulmonary arrest he would like us to proceed with all heroic measures including, but not limited to CPR, defibrillation, and mechanical ventilation (FULL CODE). Discussed with my collaborating physician Dr. Jonathon Marrero This dictation was performed using voice recognition software and may include grammatical and/or spelling errors. Orders: bisacodyl, Start: 08/09/21 9:51:00 EST, Dose = 10 mg, = 1 supp, Rectal, qDay, PRN, Constipation lisinopril, Start: 08/09/21 9:00:00 EST, Dose = 20 mg, = 1 tab(s), Oral, qDay polyethylene glycol 3350, Start: 08/09/21 9:50:00 EST, Dose = 17 gram(s), = 15 mL, Oral, qDay A1C Hemoglobin Complete Metabolic Panel Obtain old medical records Troponin I High Sensitivity Addendum by REDDY JUAN APRN-ELECTRICAL CAD DESIGNER on August 09, 2021 15:49:23 EST Repeat repeat troponin is linear A1c 9.8. Sliding scale added. ADA diet. Metformin 500 mg daily. Dietitian consult placed Lisinopril increased. Coreg added. Echocardiogram completed awaiting results. Diagnostic Tests Pending * Complete Blood Count 08/10/21 [facility] 11-15-2021 Hospital Discharge instructions Follow Up Care 08/09/2021 01:15:23 With:Call Physician Referral Address:Unknown When: Unknown [facility] Discharge summary Author Peter Medinagett [facility] Note Date/Time July 09, 2025 1 2:16pm [facility] Medical Records Department [address] [place] [address] Emergency Department Summary 07/09/25 MR#: [id number] Acct: [id number] Name: NEIL WELLINGTON Rep #:[id number] : 1970 54 From: Peter Judge ggett DO PCP: Luz Mcdermott NP-C Status:REG E R Location: ED HPI History of Present Illness Chief Complaint: Headache Narrative Narrative: Chief complaint and HPI: 54-year-old male with past medical history of DM2, HTN,HLD, CAD, CVA presents for evaluation of headache. Patient states for the past several days she has been having a progressively worsening headache. States shehas been sleeping little secondary to the pain. Associated symptom is light sensitivity although she is legally blind. She denies any history of migraines. Denies any fever, chills, URI symptoms, shortness of breath, chest pain, numbness/tingling, weakness, focal deficits, abdominal pain. Associated symptomis mild nausea. Patient states headache is already improving from when she called EMS. She states the headache waxes and wanes. Review of systems: See HPI Medications: As listed on the chart Allergies: As listed on the chart PFSH: Per chart Vital signs: As listed on the chart. Reviewed. Physical exam: Gen: A&O x3, NAD Eyes: No sclera icterus, conjunctiva clear, PERRL, EOMI ENT: TMs clear BL, moist mucous membranes, posterior oropharynx unremarkable, uvula midline, no temporal tenderness, no facial asymmetry Neck: Trachea midline, Full ROM CV: RRR, no murmurs, no peripheral edema Resp: Lungs CTA BL, no w/r/c GI: Abd soft, non-distended, non-tender, no r/r/g Musc: Full ROM, no deformity, strength +5/5 in all extremities, no pronator drift, no ataxia, lidocaine patches on bilateral calves Skin: Warm, dry, intact Neuro: Alert, oriented, grossly intact, sensation intact, no focal deficits Psych: Cooperative, appropriate mood and affect [facility] Medical History Tobacco abuse Hyperlipidemia History of non-ST elevation myocardial infarction (NSTEMI) Obesity (BMI 30-39.9) Visual disturbance Psoriasis HTN (hypertension) Diabetes Home Medications ?Medication ?Instructions ?Recorded ?Last Taken ?Type HumaLOG KwikPen Insulin See Rx Instructions subcut 3 XD 07/18/24 Unknown History Held on 11/02/24. DIABETES Instructions: pt hasn't taken med in 2 months, needs refill aspirin 81 mg chewable tablet 1 tab PO DAILY heart hea lth 07/18/24 Unknown History Held on 11/02/24. Instructions: pt hasn't taken med in 2 months, needs refill buspirone 7.5 mg tablet 7.5 mg PO BID mental health 07/18/24 Unknown History Held on 11/02/24. Instructions: pt hasn't taken med in 2 months, needs refill carvedilol 6.25 mg tablet 6.25 mg PO BID blood pressur e 07/18/24 Unknown History Held on 11/02/24. Instructions: pt hasn't taken med in 2 months, needs refill empagliflozin 10 mg tablet 10 mg PO DAILY diabetes Unknown History (Jardiance) Held on 11/02/24. Instructions: pt hasn't taken med in 2 months, needs refill insulin glargine 100 unit/mL (3 26 unit subcut QPM steff betes 07/18/24 Unknown History mL) subcutaneous pen (Lantus Solostar U-100 Insulin) Held on 11/02/24. Instructions: pt hasn't taken med in 2 months, needs refill losartan 50 mg tablet 50 mg PO DAILY blood pressur e 07/18/24 Unknown History ropinirole 0.5 mg tablet 0.5 mg PO TID restless leg 1 Unknown History Held on 11/02/24. Instructions: pt hasn't taken med in 2 months, needs refill sertraline 25 mg tablet 25 mg PO DAILY mental health 07/18/24 Unknown History Held on 11/02/24. Instructions: pt hasn't taken med in 2 months, needs refill ticagrelor 90 mg tablet (Brilinta) 90 mg PO BID anti p latelet 07/18/24 Unknown History Held on 11/02/24. Instructions: pt hasn't taken med in 2 months, needs refill atorvastatin 40 mg tablet 80 mg (2 x 40 mg) PO DAILY 3 0 days 07/20/24 Unknown Rx Held on 11/02/24. #60 tabs Instructions: pt hasn't taken med in 2 months, needs refill meclizine 12.5 mg tablet 12.5 mg PO TID PRN PRN Dizzi ness 07/20/24 Unknown Rx Held on 11/02/24. #20 tabs Instructions: pt hasn't taken med in 2 months, needs refill amlodipine 5 mg tablet 5 mg PO BID #60 tabs 4 Unknown Rx Held on 11/02/24. Instructions: pt hasn't taken med in 2 months, needs refill Allergy/AdvReac Type Severity Reaction Status Date / Time No Known Allergies Allergy Verified 07/09/25 09:02 Surgical History History of nasal surgery Hx of lymph node biopsy Hx of cholecystectomy Social History Smoking Status: Current every day smoker tobacco type: cigarettes EXAM Physical Exam Const Vital Signs: 07/09/25 09:02 07/09/25 09:28 07/09/25 11:01 Temperature 98.9 F Temperature Source Oral Pulse Rate 73 68 64 Respiratory Rate 15 14 18 Blood Pressure 169/93 H 150/86 H 141/76 H Blood Pressure Mean 118 107 97 Pulse Ox 98 97 Oxygen Delivery Method Room Air Room Air MDM MDM MDM Narrative Medical decision making narrative: 54-year-old male with past medical history of DM2, HTN, HLD, CAD, CVA presents for evaluation of headache. Patient states for the past several days she has been having a progressively worsening headache. States she has been sleeping little secondary to the pain. Associated symptom is light sensitivity although she is legally blind as well as nausea. Denies any fever, chills, URI symptoms,shortness of breath, chest pain, numbness/tingling, weakness, focal deficits, abdominal pain. Differential diagnosis includes but is not limited to tension headache, migraine headache, electrolyte abnormality, suspect less likely intracranial abnormality. NS bolus, Reglan, Benadryl, Tylenol ordered for symptoms. CT head ordered with basic labs. CBC shows leukocytosis of 14.7 and hemoconcentration of 15.4.. On chart review patient has a history of both on previous labs. BMP unremarkable except for hyperglycemia. Patient is a diabetic. CT of the brain shows bilateral occipital encephalomalacia. Consider sinusitis. Patient denying any URI symptoms. She has no sinus tenderness on exam. Does not correspond with sinusitis. UA negative for UTI. Positive for glucose. Patient is a diabetic. On reevaluation, patient's headache has resolved. Patient stable to discharge home. Follow-up with primary care physician. Return precautions explained. She confirmed understanding of the plan. Tylenol Motrin as needed. Impression: 1. Headache 2. Hyperglycemia and known diabetic Lab Data Labs: Laboratory Results - last 24 hr 07/09/25 07/09/25 08:50 11:04 WBC 14.7 H RBC 5.18 Hgb 15.4 H Hct 46.5 MCV 89.8 MCH 29.7 MCHC 33.1 RDW Std Deviation 41.1 RDW Coeff of Nhung 12.6 Plt Count TNP MPV 12.3 H Immature Gran % (Auto) 0.500 Neut % (Auto) 64.2 Lymph % (Auto) 25.7 Gregg % (Auto) 6.8 Eos % (Auto) 2.1 Baso % (Auto) 0.7 Absolute Neuts (auto) 9.4 H Absolute Lymphs (auto) 3.77 Nucleated RBC % 0 Platelet Estimate ADEQUATE Sodium 135 Potassium 4.1 Chloride 99 Carbon Dioxide 24.1 Anion Gap 12 BUN 13 Creatinine 1.09 Estim Creat Clear Calc 63.70 Est GFR (MDRD) Non-Af 61 BUN/Creatinine Ratio 11.9 Glucose 325 H Calcium 9.4 Urine Color Yellow Urine Clarity Clear Urine pH 6.0 Ur Specific [place] 1.010 Urine Protein Negative Urine Glucose (UA) 1000 H Urine Ketones Negative Urine Occult Blood Negative Urine Nitrite Negative Urine Bilirubin Negative Urine Urobilinogen Normal Ur Leukocyte Esterase 25 H Urine RBC 0-5 SEEN Urine WBC 0-5 SEEN Ur Squamous Epith Cells 5-10 SEEN Urine Bacteria 1+ Urine Mucus 0 SEEN Radiography Diagnostic Testing: Clinical Impression(s) from Imaging Studies Brain CT 07/09/25 09:42 IMPRESSION: 1. Bilateral occipital encephalomalacia. 2. Paranasal sinus disease as above. Consider sinusitis. This may be the source of the patient's headache. Reading Location: [facility] Discharge Plan Triage Chief Complaint: Headache ED Provider: Peter Thompson Dx/Rx/DC Orders Clinical Impression: Headache Instructions: ED Headache Unspecified Prescriptions: No Action Brilinta 90 mg tablet 90 mg PO BID losartan 50 mg tablet 50 mg PO DAILY carvedilol 6.25 mg tablet 6.25 mg PO BID ropinirole 0.5 mg tablet 0.5 mg PO TID sertraline 25 mg tablet 25 mg PO DAILY buspirone 7.5 mg tablet 7.5 mg PO BID aspirin 81 mg tablet,chewable 1 tab PO DAILY Jardiance 10 mg tablet 10 mg PO DAILY insulin glargine [Lantus Solostar U-100 Insulin] 100 unit/mL (3 mL) insulin pen 26 unit subcut QPM HumaLOG KwikPen Insulin pen injector See Rx Instructions subcut 3XD Protocol: 4. Sliding Scale Insulin High-Med Dosing Condition: 150-199 mg/dl = 2 units Condition: 200-259 mg/dl = 4 units Condition: 260-324 mg/dl = 6 units Condition: 325-374 mg/dl = 8 units Condition: 375-409 mg/dl = 10 units Condition: 410-449 mg/dl = 11 units Condition: Greater than 449 call physician Protocol Text: Suggested for: - Patients on Total Daily Insulin Dose of 56-80 units - Patient who are known to be insulin resistant or septic HIGH MEDIUM DOSING ALGORITHM Rx Instructions: SLIDING SCALE subcutaneously 3 times daily; SLIDING SCALE REFER TO SLIDING SCALE meclizine 12.5 mg Tablet 12.5 mg PO TID PRN PRN (Reason: Dizziness) Qty: 20 0RF atorvastatin 40 mg tablet 80 mg PO DAILY 30 Days Qty: 60 0RF amlodipine 5 mg tablet 5 mg PO BID Qty: 60 11RF Primary Care Provider: Luz Mcdermott Referrals: Luz Mcdermott, REBECCA [Primary Care Provider, Family Practice] - 3-5 Days Activity Restrictions/Additional Instructions: Follow-up with primary care physician. Monitor sugar at home. Return back to ED symptoms change or worsen. Print Language: Togolese Disposition Disposition: Home, Self Care What to do if you have Problems For any increased pain, shortness of breath, bleeding, nausea or vomiting, chestpain, or any unexpected problems, contact your Primary Care Provider. Call [facility] ([phone]) or report to the closest Emergency Room. Call 911 if necessary. 07/09/25 1216 <Electronically signed by Peter Thompson DO> Cosigner Signature (if applicable): CC: REBECCA Mcdermott ~ Signed [facility] Work Phone: Evaluation + Plan note Future Appointments Appointment Date:08/16/2021 02:00:00 PM Scheduled Provider:SARAH IVERSON Location:[facility] Appointment Type:PC WALL CLEANER Unassigned Hospital Follow Up Appointment Date:08/23/2021 09:30:00 AM Scheduled Provider:BEENA ZAVALA Location:[facility] Appointment Type:[facility] OV Hospital Follow Up Diagnostic Tests Pending * Culture Respiratory with Gram Stain 08/11/21 [facility] Evaluation note* Diagnosis New onset of congestive heart failure (HCC)- Primary Essential hypertension Unspecified essential hypertension Type 2 diabetes mellitus with hyperglycemia, unspecified whether exterminator termite insulin use (HCC) Near syncope Syncope and collapse H/O noncompliance with medical treatment, presenting hazards to health Personal history of noncompliance with medical treatment, presenting hazards to health Tobacco dependence Tobacco use disorder Uncontrolled type 2 diabetes mellitus with hyperglycemia (HCC) documented in this encounter [facility] Work Phone: evaluation note* Diagnosis Personal history of tobacco use Personal history of tobacco use, presenting hazards to health documented in this encounter [facility] Work Phone: evaluation noteNo assessment information available [facility] Work Phone: Evaluation note* Diagnosis NSTEMI (non-ST elevated myocardial infarction) ([facility])- Primary Acute myocardial infarction, subendocardial infarction, episode of care unspecified NSTEMI (non-ST elevated myocardial infarction) ([facility]) Acute myocardial infarction, subendocardial infarction, episode of care unspecified Chronic systolic (congestive) heart failure ([facility]) Type 2 diabetes mellitus without complication, without long-term current use of insulin ([facility]/HCC) ([facility]) S/P coronary artery stent placement Postsurgical percutaneous transluminal coronary angioplasty status Altered mental status, unspecified Lacunar cerebrovascular accident (CVA) ([facility]) Uncontrolled type 2 diabetes mellitus with hyperglycemia ([facility]) NSTEMI (non-ST elevated myocardial infarction) ([facility]) Acute myocardial infarction, subendocardial infarction, episode of care unspecified [facility]* Diagnosis Sepsis ([facility])- Primary Sepsis secondary to UTI ([facility]) Urinary tract infection, site not specified Acute nonintractable headache, unspecified headache type Cerebrovascular accident (CVA), unspecified mechanism ([facility]) History of non-ST elevation myocardial infarction (NSTEMI) Old myocardial infarction Cerebral infarction due to posterior cerebral artery occlusion, unspecified blood vessel laterality ([facility]) Systolic congestive heart failure, unspecified HF chronicity (HCC) Cerebrovascular accident (CVA) due to bilateral embolism of posterior cerebral arteries ([facility]) Hypertension, unspecified type CVA (cerebrovascular accident due to intracerebral hemorrhage) ([facility]) Intracerebral hemorrhage Elevated troponin Other abnormal blood chemistry Balint's syndrome Psychophysical visual disturbances Cryptogenic stroke ([facility]) Unspecified cerebral artery occlusion with cerebral infarction Cryptogenic stroke (HCC) Unspecified cerebral artery occlusion with cerebral infarction Systolic congestive heart failure, unspecified HF chronicity ([facility]) documented in this encounter [facility] HEALTHEvaluation note* Diagnosis Encounter for loop recorder check- Primary [facility]* Diagnosis Colon cancer screening Special screening for malignant neoplasms, colon [facility] N[facility]ative No data available for this section [facility] Discharge instructions* Attachments The following attachments cannot be sent through Care Everywhere. * Colon Polyps (Togolese) * Hemorrhoids (Togolese) * Colonoscopy: Post op (Togolese) * Fiber Foods: General Info (Togolese) [facility] Discharge instructionsAdditional Instructions Follow-up with primary care physician. Monitor sugar at home. Return back to ED symptoms change or worsen.[facility] Work Phone: Reason for referral (narrative)* Consultation (Routine) - Closed Specialty Diagnoses / Procedures Referred By Contact Referred To Contact Cardiac Rehabilitation / Cardiology Diagnoses NSTEMI (non-ST elevated myocardial infarction) (HCC) Procedures [place] OFFICE/OUTPATIENT [facility] 60 MINUTES Henny Chong APRN - CNP [address] [place] [address] [facility] Card/Pulm Rehab [address] [place] [address] Referral ID Status Reason Start Date Expiration Date V isits Requested Visits Authorized [id number] Closed Specialty Services Required 03/18/2024 03/18/2025 1 1 [facility] (narrative)No reason for referral information availableWKettering [facility] Work Phone: Reason for visit Narrative* Auth/Cert Specialty Diagnoses / Procedures Referred By Kelsey hooker Referred To Contact Diagnoses Colon cancer screening Procedures [place] COLON CA SCRN NOT HI RSK IND COLORECTAL CANCER SCREENING, NOT HIGH RISK Rima Hammond MD [address] [place] [address] Phone: tel: fax: [facility] [address] [place] [address] Referral ID Status Reason Start Date Expiration Date Visits Re quested Visits Authorized [id number] [facility] Summary Purpose Family History No Family History Records FoundNo Family History Records FoundNo Family History Records FoundNo Family History Records FoundNo Family History Records FoundNo Family History Records Found Advance Directives No Advanced Directives Records FoundLatest Code Status on File Code Status Date Activated Date Inactivated Comments Full Code 04/03/2022 10:54 AM Latest Code Status on File Code Status Date Activated Date Inactivated Comments Full Code 04/03/2022 10:54 AM 04/06/2022 4:24 PM Advance Directive Response Recorded Date/ Time Advance Directives No August 2:27am Living Will No September 16, 023 5:50am Power of Processing Lead No September 16, 2023 5:50am Date Activated Date Inactivated Comments 03/15/2024 8:06 PM 03/27/2024 6:52 PM Date Activated Date Inactivated Comments 03/29/2024 11:32 AM 04/02/2024 5:19 PM Date Activated Date Inactivated Comments 04/03/2022 10:54 AM 04/06/2022 4:24 PM Healthcare Agents on File Name Relationship Healthcare Agent Relationshi p Communication Emerita Stoneking Parent Secondary Decision Maker Junaid Stoneking Primary Decision Maker Valerie Fonseca Brother/Sister Secondary Decision Maker Latest Code Status on File Code Status Date Activated Date Inactivated Comments Full Code 03/29/2024 11:32 AM Code Status History Code Status Date Activated Date Inactivated Comments Full Code 04/03/2022 10:54 AM 04/06/2022 4:24 PM Healthcare Agents on File Name Relationship Healthcare Agent Relationshi p Communication Emerita Stoneking Parent Secondary Decision Maker Junaid Stoneking Primary Decision Maker Valerie Fonseca Brother/Sister Secondary Decision Maker Healthcare Agents on File Name Relationship Healthcare Agent Relationshi p Communication Emerita Stoneking Parent Secondary Decision Maker Junaid Stoneking Primary Decision Maker Valerie Fonseca Brother/Sister Secondary Decision Maker Healthcare Agents on File Name Relationship Healthcare Agent Relationshi p Communication Emerita Stoneking Parent Secondary Decision Maker Junaid Stoneking Primary Decision Maker Valerie Fonseca Brother/Sister Secondary Decision Maker Healthcare Agents on File Name Relationship Healthcare Agent Relationshi p Communication Emerita Stoneking Parent Secondary Decision Maker Junaid Stoneking Primary Decision Maker Valerie Fonseca Brother/Sister Secondary Decision Maker Healthcare Agents on File Name Relationship Healthcare Agent Relationshi p Communication Emerita Stoneking Parent Secondary Decision Maker Junaid Stoneking Primary Decision Maker Valerie Fonseca Brother/Sister Secondary Decision Maker Date Activated Date Inactivated Comments 03/29/2024 11:32 AM 04/02/2024 5:19 PM Date Activated Date Inactivated Comments 04/03/2022 10:54 AM 04/06/2022 4:24 PM Healthcare Agents on File Name Relationship Healthcare Agent Relationshi p Communication Emerita Stoneking Parent Secondary Decision Maker Junaid Wongking Primary Decision Maker Valerie Fonseca Brother/Sister Secondary Decision Maker Date Activated Date Inactivated Comments 07/14/2025 9:54 AM Date Activated Date Inactivated Comments 03/29/2024 11:32 AM 04/02/2024 5:19 PM Date Activated Date Inactivated Comments 04/03/2022 10:54 AM 04/06/2022 4:24 PM Healthcare Agents on File Name Relationship Healthcare Agent Relationship Communication Emerita Stoneking Parent Secondary Decision Maker Junaid [place] Primary Decision Maker Valerie Fonseca Brother/Sister Secondary Decision Maker Advance Directive Response Recorded Date/ Time Do you have a Healthcare Power of Processing Lead? No July 09, 2025 9:04am Advance Directives No August 3:27am Reason for Referral Specialty Diagnoses / Procedures Referred By Kelsey t Referred To Contact Radiology Diagnoses Personal history of tobacco use Procedures CT Lung Screen (Annual/Baseline) Luz Mcdermott, POISER - ELECTRICAL CAD DESIGNER [address] [place] [address] Referral ID Status Reason Start Date Expiration Date Visits Re quested Visits Authorized [id number] Closed 12/01/2022 11/30/2023 1 1 Chief Complaint and Reason for Visit Chief Complaint abd pain abd pain, uti Chief Complaint Admit Date HEADACHE July 09, 2025 9 :00am Additional Source Comments INFORMATION SOURCE (unrecogn ized section and content) DATE CREATED AUTHOR 08/24/2021 [facility] ([place]) DATE CREATED AUTHOR AUTHOR'S ORGANIZ ATION 03/28/2024 [facility] DATE CREATED AUTHOR AUTHOR'S ORGANIZ ATION 01/22/2025 [facility] DATE CREATED AUTHOR AUTHOR'S ORGANIZ ATION 06/20/2025 [facility] DATE CREATED AUTHOR AUTHOR'S ORGANIZ ATION 07/18/2025 [facility] DATE CREATED AUTHOR AUTHOR'S ORGANIZ ATION 08/03/[address] 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 (HCC) [place] [address] [place] [address] [facility] [address] [place] [address] Referral ID Status Reason Start Date Expiration Date Visits Re quested Visits Authorized [id number] 1 1 Specialty Diagnoses / Procedures Referred By Contac t Referred To Contact Radiology Diagnoses Personal history of tobacco use Procedures CT Lung Screen (Annual/Baseline) Luz Mcdermott, POISER - ELECTRICAL CAD DESIGNER [address] [place] [address] Referral ID Status Reason Start Date Expiration Date Visits Re quested Visits Authorized [id number] Closed 12/01/2022 11/30/2023 1 1 Specialty Diagnoses / Procedures Referred By Contac t Referred To Contact Diagnoses NSTEMI (non-ST elevated myocardial infarction) (HCC) CAD Procedures .. DianaJase, DO [address] [place] [address] [address] [place] [address] Referral ID Status Reason Start Date Expiration Date Visits Re quested Visits Authorized [id number] 1 1 Reason Comments Headache X3 days Specialty Diagnoses / Procedures Referred By Contac t Referred To Contact Diagnoses CVA (cerebrovascular accident due to intracerebral hemorrhage) (HCC) Sepsis secondary to UTI (HCC) History of non-ST elevation myocardial infarction (NSTEMI) Sepsis (HCC) Acute nonintractable headache, unspecified headache type Cerebrovascular accident (CVA), unspecified mechanism (HCC) Cerebral infarction due to posterior cerebral artery occlusion, unspecified blood vessel laterality (HCC) Systolic congestive heart failure, unspecified HF chronicity ([facility]) [place] [address] [place] [address] [facility] [address] [place] [address] Referral ID Status Reason Start Date Expiration Date Visits Re quested Visits Authorized [id number] 1 1 Ordered Prescriptions (unrec ognized section and content) Prescription Sig Dispensed Refills Start Date End Da te Dulaglutide (TRULICITY) 0.75 MG/0.5ML SOPN Inject 0.75 mg into the skin once a week 4 pen 3 04/06/2022 metFORMIN (GLUCOPHAGE) 500 MG tablet Start 04/08 due to heart cath 60 tablet 1 04/06/2022 empagliflozin (JARDIANCE) 10 MG tablet Take 1 tablet by mouth daily 30 tablet 3 04/06/2022 amLODIPine (NORVASC) 5 MG tablet Take 1 tablet by mouth daily 30 tablet 3 04/05/2022 Prescription Sig Dispensed Refills Start Date End Da te insulin lispro (HUMALOG,ADMELOG) 100 UNIT/ML SOLN injection vial Inject 0-8 Units into the skin 3 times daily (with meals) 0 04/02/2024 empagliflozin (JARDIANCE) 10 MG tablet Take 1 tablet by mouth daily 30 tablet 3 04/03/2024 cephALEXin (KEFLEX) 500 MG capsule Take 1 capsule by mouth 3 times daily for 2 days 0 04/02/2024 04/04/2024 Scheduled Active and Recently Administ ered Medications (unrecognized section and content) Medication Order 04/04/2022 04/05/2022 04/06/2022 amLODIPine (NORVASC) tablet 5 mg 5 mg, Oral, DAILY, First dose on Mon04/05/22 at 0900, Until Discontinued 1146 (Given - Provider: Radha Michel RN) 0845 (Given - Provider: Daisy Ferrer RN) aspirin EC tablet 81 mg 81 mg, Oral, DAILY, First dose (after last modification) on Mon04/04/22 at 0900, Until Discontinued, Do not crush or break. 0911 (Given - Provider: Radha Michel RN) 0759 (Given - Provider: Rema Loyola RN) 0844 (Given - Provider: Daisy Ferrer RN) atorvastatin (LIPITOR) tablet 40 mg 40 mg, Oral, Nightly, First dose on Mon04/03/22 at 2100, Until Discontinued 2051 (Given - Provider: Viky Christian RN) 2158 (Given - Provider: Kamala Arshad RN) 2100 (Due) carvedilol (COREG) tablet 12.5 mg 12.5 mg, Oral, 2 TIMES DAILY WITH MEALS, First dose (after last modification) on Mon04/04/22 at 2100, Until Discontinued, Administer with food to minimize the risk of orthostatic hypotension 2051 (Given - Provider: Viky Christian RN) 114 (Given - Provider: Radha Michel RN)162 (Given - Provider: Radha Michel RN) 0844 (Given - Provider: Daisy Ferrer RN)1700 (Due) empagliflozin (JARDIANCE) tablet 10 mg Note: Discontinuation of SGLT2 inhibitor therapy 3 days prior to surgery or major procedures is recommended given the risk for euglycemic diabetic ketoacidosis., 10 mg, Oral, DAILY, First dose on Mon04/06/22 at 1100, Until Discontinued, Indication of Use: Heart Failure (reduced EF), Substituted for dapagliflozin (FARXIGA). Note: Discontinuation of therapy 3 days prior to surgery or major procedures is recommended given the risk for euglycemic diabetic ketoacidosis. 1207 (Given - Provider: Daisy Ferrer RN) enoxaparin (LOVENOX) injection 40 mg 40 mg, SubCUTAneous, DAILY, First dose (after last modification) on Mon04/03/22 at 2100, Until Discontinued, Indication of Use: Prophylaxis-DVT/PE 0912 (Given - Provider: Radha Michel RN) 0822 (Not Given - Provider: Radha Michel RN - Reason: Other) 0845 (Given - Provider: Daisy Ferrer RN) furosemide (LASIX) injection 40 mg (COMPLETED) 40 mg, IntraVENous, Every 8 hours, 3 doses, First dose on Mon04/03/22 at 1600, Last dose on Mon04/04/22 at 0800 0912 (Given - Provider: Radha Michel RN) furosemide (LASIX) injection 40 mg 40 mg, IntraVENous, DAILY, First dose on Mon04/05/22 at 0900, Until Discontinued 1151 (Given - Provider: Radha Michel RN) 0845 (Given - Provider: Daisy Ferrer RN) insulin glargine (LANTUS) injection vial 12 Units 12 Units, SubCUTAneous, DAILY, First dose (after last modification) on Mon04/04/22 at 2100, Until Discontinued, Do not hold without physician order. 2123 (Given - Provider: Viky Christian RN) 0824 (Not Given - Provider: Radha Michel RN - Reason: Patient not available) 0846 (Given - Provider: Daisy Ferrer, TIAN) insulin lispro (HUMALOG) injection vial 0-3 Units 0-3 Units, SubCUTAneous, NIGHTLY, First dose on Mon04/03/22 at 2100, Until Discontinued, If continuous tube feedings/TPN/NPO, give correction dose based on result, no reduction in dose. If eating or bolus tube feeding: Low Dose Bedtime Correction Algorithm Glucose: Dose: 70-139 No Insulin 140-249 1 Unit 250-349 2 Units 350 and above 3 Units 2123 (Given - Provider: Viky Christian RN) 2199 (Given - Provider: Kamala Arshad RN) 2100 (Due) insulin lispro (HUMALOG) injection vial 0-6 Units 0-6 Units, SubCUTAneous, 3 TIMES DAILY WITH MEALS, First dose (after last modification) on Mon04/03/22 at 1700, Until Discontinued, Low Dose Correction Algorithm Glucose: Dose: 70-139 No Insulin 140-199 1 Unit 200-249 2 Units 250-299 3 Units 300-349 4 Units 350-399 5 Units 400 and above 6 Units 0915 (Given - Provider: Radha Michel RN)1136 (Given - Provider: Radha Michel RN)1600 (Given - Provider: Radha Michel RN) 0822 (Not Given - Provider: Radha Michel RN - Reason: Other)1147 (Given - Provider: Radha Michel RN)1619 (Given - Provider: Radha Michel RN) 0845 (Given - Provider: Daisy Ferrer, RN)1157 (Given - Provider: Daisy Ferrer RN)1700 (Due) insulin lispro (HUMALOG) injection vial 5 Units 5 Units (rounded from 4.77 Units = 0.05 Units/kg 95.4 kg), SubCUTAneous, 3 TIMES DAILY WITH MEALS, First dose (after last modification) on Mon04/03/22 at 1700, Until Discontinued, Give prior to Zcpqxzuxs-Dakco-Pipgqt only when tray is in room and patient eating 50% of meal. If meal intake is uncertain then immediate post meal injection is acceptable. Give prior to bolus tube feedings. Hold if patient is NPO or if pre-meal blood glucose is less than or equal to 70 mg/dL. 0913 (Given - Provider: Radha Michel RN)1137 (Given - Provider: Radha Michel RN)1600 (Given - Provider: Radha Michel RN) 0823 (Not Given - Provider: Radha Michel RN - Reason: Pt NPO)1148 (Given - Provider: Radha Michel RN)1619 (Given - Provider: Radha Michel RN) 0847 (Given - Provider: Daisy Ferrer, RN)1157 (Given - Provider: Daisy Ferrer, RN)1700 (Due) losartan (COZAAR) tablet 100 mg 100 mg, Oral, DAILY, First dose (after last modification) on Mon04/04/22 at 1000, Until Discontinued 0918 (Given - Provider: Radha Michel RN) 1143 (Given - Provider: Radha Michel RN) 0845 (Given - Provider: Daisy Ferrer, RN) nitroglycerin (NITRO-BID) 2 % ointment 0.5 inch (CANCELED) 0.5 inch, Topical, EVERY 8 HOURS SCHEDULED (3 times per day), First dose (after last modification) on Mon04/03/22 at 2100, Until Discontinued 0533 (Given - Provider: Viky Christian, TIAN) potassium chloride (KLOR-CON M) extended release tablet 40 mEq (COMPLETED) 40 mEq, Oral, ONCE, 1 dose, On Mon04/04/22 at 1015, Do not crush, chew, or suck on tablet. Tablet may also be broken in half and each half swallowed separately. 1136 (Given - Provider: Radha Michel RN) sodium chloride flush 0.9 % injection 10 mL 10 mL, IntraVENous, EVERY 12 HOURS SCHEDULED (2 times per day), First dose (after last modification) on Mon04/03/22 at 2100, Until Discontinued 0912 (Given - Provider: Radha Michel RN)2051 (Given - Provider: Viky Christian RN) 0823 (Not Given - Provider: Radha Michel RN - Reason: Other)2200 (Given - Provider: Kamala Arshad RN) 0850 (Given - Provider: Daisy Ferrer, RN)2100 (Due) sodium chloride flush 0.9 % injection 5-40 mL 5-40 mL, IntraVENous, EVERY 12 HOURS SCHEDULED (2 times per day), First dose on Mon04/05/22 at 0900, Until Discontinued, For Line Patency: Peripheral IV = 5 mL; Midline or Central Line = 10 mL/lumen. If following IV push medication, administer flush at same rate as the IV push. Flush volume is determined by type of infusion therapy being given. For non-viscous solutions use: Peripheral IV = 5 mL Midline or Central Line = 10 mL/lumen For viscous solutions (i.e. blood components, parenteral nutrition, contrast media, or after obtaining blood sample) use: Peripheral IV = 10 mL Midline or Central Line = 20 mL/lumen, Pre-Procedure(Cath) 0823 (Not Given - Provider: Radha Michel RN - Reason: Other)2314 (Not Given - Provider: Kamala Arshad RN - Reason: Other - Comment: duplicate) 1138 (Not Given - Provider: Daisy Ferrer RN - Reason: Other)2100 (Due) sodium chloride flush 0.9 % injection 5-40 mL 5-40 mL, IntraVENous, EVERY 12 HOURS SCHEDULED (2 times per day), First dose on Mon04/05/22 at 1000, Until Discontinued, For Line Patency: Peripheral IV = 5 mL; Midline or Central Line = 10 mL/lumen. If following IV push medication, administer flush at same rate as the IV push. Flush volume is determined by type of infusion therapy being given. For non-viscous solutions use: Peripheral IV = 5 mL Midline or Central Line = 10 mL/lumen For viscous solutions (i.e. blood components, parenteral nutrition, contrast media, or after obtaining blood sample) use: Peripheral IV = 10 mL Midline or Central Line = 20 mL/lumen, Recovery(Cath) 1143 (Not Given - Provider: Radha Michel RN - Reason: Other)2313 (Not Given - Provider: Kamala Arshad RN - Reason: Other - Comment: duplicate) 1138 (Not Given - Provider: Daisy Ferrer RN - Reason: Other)2100 (Due) spironolactone (ALDACTONE) tablet 25 mg 25 mg, Oral, DAILY, First dose (after last modification) on Mon04/04/22 at 0900, Until Discontinued 0912 (Given - Provider: Radha Michel, RN) 1143 (Given - Provider: Radha Michel RN) 0844 (Given - Provider: Daisy Ferrer, RN) PRN Medication Order 04/04/2022 04/05/2022 04/06/2022 0.9 % sodium chloride infusion IntraVENous, at 5-250 mL/hr, PRN, if patient receiving piggyback infusions and maintenance fluids are not ordered OR KVO fluids to protect IV site / prevent frequent line interruptions/ long duration, Starting on Mon04/03/22 at 1054, For piggyback infusion, administer at same rate as piggyback for a total of 25 mL. Enter 25 mL into dose field and piggyback rate into rate field of order. If piggyback is infusing at a rate less than 100 mL/hr, enter 25 mL into dose field and 100 mL/hr into rate field of order. For KVO fluids, enter rate of 20 mL/hr or less into rate field of order. 0.9 % sodium chloride infusion IntraVENous, at 5-250 mL/hr, PRN, if patient receiving piggyback infusions and maintenance fluids are not ordered OR KVO fluids to protect IV site / prevent frequent line interruptions/ long duration, Starting on Mon04/05/22 at 0258, For piggyback infusion, administer at same rate as piggyback for a total of 25 mL. Enter 25 mL into dose field and piggyback rate into rate field of order. If piggyback is infusing at a rate less than 100 mL/hr, enter 25 mL into dose field and 100 mL/hr into rate field of order. For KVO fluids, enter rate of 20 mL/hr or less into rate field of order., Pre-Procedure(Cath) 0.9 % sodium chloride infusion IntraVENous, at 5-250 mL/hr, PRN, if patient receiving piggyback infusions and maintenance fluids are not ordered OR KVO fluids to protect IV site / prevent frequent line interruptions/ long duration, Starting on Mon04/05/22 at 0942, For piggyback infusion, administer at same rate as piggyback for a total of 25 mL. Enter 25 mL into dose field and piggyback rate into rate field of order. If piggyback is infusing at a rate less than 100 mL/hr, enter 25 mL into dose field and 100 mL/hr into rate field of order. For KVO fluids, enter rate of 20 mL/hr or less into rate field of order., Recovery(Cath) acetaminophen (TYLENOL) suppository 650 mg(Linked Group 1) 650 mg, Rectal, EVERY 6 HOURS PRN, Starting on 04/03/22 at 1054, Until Discontinued, Pain Mild (1-3), Fever, For temp greater than 100.4 F (38 C), Administer if oral route cannot be used. 0917 (See Alternative - Provider: Radha Michel RN) acetaminophen (TYLENOL) tablet 650 mg(Linked Group 1) 650 mg, Oral, EVERY 6 HOURS PRN, Starting on 04/03/22 at 1054, Until Discontinued, Pain Mild (1-3), Fever, For temp greater than 100.4 F (38 C), Maximum dose of acetaminophen is 4000 mg from all sources in 24 hours. 0917 (Given - Provider: Radha Michel, TIAN) acetaminophen (TYLENOL) tablet 650 mg 650 mg, Oral, EVERY 4 HOURS PRN, Starting on Mon04/05/22 at 0942, Until Discontinued, Pain Mild (1-3), Fever, Fever >100.5 F (38 C), Maximum dose of acetaminophen is 4000 mg from all sources in 24 hours., Recovery(Cath) 1141 (Given - Provider: Radha Michel RN) 0427 (Given - Provider: Page Kay RN) dextrose 5 % solution 100 mL/hr, IntraVENous, PRN, Low blood sugar, Starting on Mon04/03/22 at 1248, Start infusion following administration of dextrose 10%, dextrose 50%, or glucagon. dextrose bolus 10% 125 mL(Linked Group 2) 125 mL, IntraVENous, at 937.5 mL/hr, Administer over 8 Minutes, PRN, Other, Blood glucose 40 - 69 mg/dL and patient NOT ALERT or NPO, Starting on Mon04/03/22 at 1248, Start D5W at 100 mL/hour until ordering provider can be reached. Repeat blood glucose in 15 minutes. If blood glucose is 40 - 69 mg/dL, repeat treatment and recheck blood glucose in 15 minutes x 2. If using Glucostabilizer, dose as instructed per system. dextrose bolus 10% 250 mL(Linked Group 2) 250 mL, IntraVENous, at 937.5 mL/hr, Administer over 16 Minutes, PRN, Other, Blood glucose LESS than 40 mg/dL and patient NOT ALERT or NPO, Starting on Mon04/03/22 at 1248, Start D5W at 100 mL/hour until ordering provider can be reached. Repeat blood glucose in 15 minutes. If blood glucose is LESS than 40 mg/dL, repeat treatment and recheck blood glucose in 15 minutes x 2. If using Glucostabilizer, dose as instructed per system. glucagon (rDNA) injection 1 mg 1 mg, IntraMUSCular, PRN, Starting on Mon04/03/22 at 1248, Until Discontinued, Low blood sugar, Blood glucose less than 70 mg/dL and patient NOT ALERT or NPO and does not have IV access., After administration, attempt intravenous access and start D5W at 100 mL/hr. Repeat blood glucose in 15 minutes x2 and notify provider. glucose chewable tablet 16 g 16 g (4 tablet), Oral, PRN, Starting on Mon04/03/22 at 1248, Until Discontinued, Low blood sugar, If blood glucose is LESS than 70 mg/dL and patient is alert and tolerating oral. Give 4 tablets (16g) Repeat blood glucose in 15 minutes. If blood glucose is LESS than 70 mg/dL, repeat treatment and recheck blood glucose in 15 minutes x 2. If blood glucose remains LESS than 70 mg/dL, notify provider. hydrALAZINE (APRESOLINE) injection 10 mg 10 mg, IntraVENous, EVERY 4 HOURS PRN, Starting on Mon04/03/22 at 1054, Until Discontinued, High Blood Pressure, PRN SBP >170, PRN SBP > 170 hydrALAZINE (APRESOLINE) injection 10 mg 10 mg, IntraVENous, EVERY 10 MIN PRN, 2 doses, Starting on Mon04/05/22 at 0942, Until Discontinued, High Blood Pressure, For SBP greater than 170 mmHG, Recovery(Cath) iopamidol (ISOVUE-300) 61 % injection 100 mL (COMPLETED) 100 mL, Other, IMG ONCE PRN, 1 dose, Starting on Mon04/05/22 at 0832, Until Mon04/05/22 at 0841, Other 0841 (Given - Provider: Pako Mcintosh RN) labetalol (NORMODYNE;TRANDATE) injection 10 mg 10 mg, IntraVENous, EVERY 30 MIN PRN, 2 doses, Starting on Mon04/05/22 at 0942, Until Discontinued, High Blood Pressure, For SBP greater than 170 mmHG, Recovery(Cath) ondansetron (ZOFRAN) injection 4 mg 4 mg, IntraVENous, EVERY 6 HOURS PRN, Starting on Mon04/05/22 at 0942, Until Discontinued, Nausea, Vomiting, Recovery(Cath) polyethylene glycol (GLYCOLAX) packet 17 g 17 g, Oral, DAILY PRN, Starting on Mon04/03/22 at 1054, Until Discontinued, Constipation, First line therapy for constipation sodium chloride flush 0.9 % injection 10 mL 10 mL, IntraVENous, PRN, Starting on Mon04/03/22 at 1054, Until Discontinued, Line Care, After every IV line use sodium chloride flush 0.9 % injection 5-40 mL 5-40 mL, IntraVENous, PRN, Starting on Mon04/05/22 at 0258, Until Discontinued, Line Care, After every IV line use, For Line Patency: Peripheral IV = 5 mL; Midline or Central Line = 10 mL/lumen. If following IV push medication, administer flush at same rate as the IV push. Flush volume is determined by type of infusion therapy being given. For non-viscous solutions use: Peripheral IV = 5 mL Midline or Central Line = 10 mL/lumen For viscous solutions (i.e. blood components, parenteral nutrition, contrast media, or after obtaining blood sample) use: Peripheral IV = 10 mL Midline or Central Line = 20 mL/lumen, Pre-Procedure(Cath) sodium chloride flush 0.9 % injection 5-40 mL 5-40 mL, IntraVENous, PRN, Starting on Mon04/05/22 at 0942, Until Discontinued, Line Care, After every IV line use, For Line Patency: Peripheral IV = 5 mL; Midline or Central Line = 10 mL/lumen. If following IV push medication, administer flush at same rate as the IV push. Flush volume is determined by type of infusion therapy being given. For non-viscous solutions use: Peripheral IV = 5 mL Midline or Central Line = 10 mL/lumen For viscous solutions (i.e. blood components, parenteral nutrition, contrast media, or after obtaining blood sample) use: Peripheral IV = 10 mL Midline or Central Line = 20 mL/lumen, Recovery(Cath) Linked Groups Order Group 1: acetaminophen (TYLENOL) tablet 650 mgJump to med 650 mg, Oral, EVERY 6 HOURS PRN, Starting on Mon04/03/22 at 1054, Until Discontinued, Pain Mild (1-3), Fever, For temp greater than 100.4 F (38 C)
Maximum dose of acetaminophen is 4000 mg from all sources in 24 hours.
Or acetaminophen (TYLENOL) suppository 650 mgJump to med 650 mg, Rectal, EVERY 6 HOURS PRN, Starting on Mon04/03/22 at 1054, Until Discontinued, Pain Mild (1-3), Fever, For temp greater than 100.4 F (38 C)
Administer if oral route cannot be used.
Group 2: dextrose bolus 10% 125 mLJump to med 125 mL, IntraVENous, at 937.5 mL/hr, Administer over 8 Minutes, PRN, Other, Blood glucose 40 - 69 mg/dL and patient NOT ALERT or NPO, Starting on 04/03/22 at 1248
Start D5W at 100 mL/hour until ordering provider can be reached. Repeat blood glucose in 15 minutes. If blood glucose is 40 - 69 mg/dL, repeat treatment and recheck blood glucose in 15 minutes x 2. If using Glucostabilizer, dose as instructed per system.
Or dextrose bolus 10% 250 mLJump to med 250 mL, IntraVENous, at 937.5 mL/hr, Administer over 16 Minutes, PRN, Other, Blood glucose LESS than 40 mg/dL and patient NOT ALERT or NPO, Starting on 04/03/22 at 1248
Start D5W at 100 mL/hour until ordering provider can be reached. Repeat blood glucose in 15 minutes. If blood glucose is LESS than 40 mg/dL, repeat treatment and recheck blood glucose in 15 minutes x 2. If using Glucostabilizer, dose as instructed per system.
Scheduled Medication Order 03/25/2024 03/26/2024 03/27/2024 aspirin EC tablet 81 mg 81 mg, Oral, Daily, First dose on Mon03/15/24 at 2015, Do not crush, chew, or split. 0856 (Given - Provider: Iris Rivas RN) 1037 (Given - Provider: Martita Aceves RN) 0853 (Given - Provider: Martita Aceves RN) atorvastatin (Lipitor) tablet 80 mg 80 mg, Oral, Nightly, First dose on Mon03/27/24 at 2100 carvedilol (Coreg) tablet 6.25 mg 6.25 mg, Oral, 2 times daily with meals, First dose on Mon03/17/24 at 0900 0856 (Given - Provider: Iris Rivas RN)1808 (Given - Provider: Iris Rivas RN) 1038 (Given - Provider: Martita Aceves RN)1709 (Given - Provider: Martita Aceves RN) 0853 (Given - Provider: Martita Aceves RN)1700 (Canceled Entry - Provider: Automatic Discharge Provider - Comment: Automatically canceled at discontinue of medication order) enoxaparin (Lovenox) syringe 40 mg 40 mg, SubCUTAneous, Every 24 hours scheduled (Daily), First dose on Mon03/19/24 at 0900, Indication of Use: Treatment-DVT/PE, Indications: Prophylaxis of Venous Thromboembolism 0855 (Given - Provider: Iris Rivas RN) 1037 (Given - Provider: Martita Aceves RN) 0852 (Given - Provider: Martita Aceves RN) insulin glargine (Lantus) injection 26 Units 26 Units, SubCUTAneous, Nightly, First dose (after last modification) on Mon03/23/24 at 2100 2114 (Given - Provider: Gladis Black RN) 2051 (Given - Provider: Rebeca Mohr RN) Insulin Lispro (Humalog) injection 0-12 Units 0-12 Units, SubCUTAneous, 3 times daily with meals, First dose on Mon03/18/24 at 0800, Moderate dose Sliding scale: <150 = 0 unit 151-200 = 2 units 201-250 = 4 units 251-300 = 6 units 301-350 = 8 units 351-400 = 10 units > 400 = 12 units and call endocrine 0855 (Given - Provider: Iris Rivas RN)1241 (Given - Provider: Trisha Vaca, TIAN)1700 (Not Given - Provider: Trisha Vaca, TIAN - Reason: Order parameters not met) 1035 (Given - Provider: Martita Aceves RN)1310 (Given - Provider: Martita Aceves RN)1743 (Given - Provider: Martita Aceves RN) 0859 (Given - Provider: Martita Aceves RN)1249 (Given - Provider: Yolanda Raza RN)1700 (Canceled Entry - Provider: Automatic Discharge Provider - Comment: Automatically canceled at discontinue of medication order) Insulin Lispro (Humalog) injection 20 Units (CANCELED) 20 Units, SubCUTAneous, 3 times daily with meals, First dose (after last modification) on Mon03/24/24 at 1700, Hold dose if not eating 0855 (Given - Provider: Iris Rivas RN)1200 (Not Given - Provider: Trisha Vaca RN - Reason: Order parameters not met) Insulin Lispro (Humalog) injection 24 Units 24 Units, SubCUTAneous, 3 times daily with meals, First dose (after last modification) on Mon03/25/24 at 1230, Hold dose if not eating 1242 (Given - Provider: Trisha Vaca RN)1827 (Given - Provider: Trisha Vaca, TIAN) 1034 (Given - Provider: Martita Aceves RN)1311 (Given - Provider: Martita Aceves RN)1743 (Given - Provider: Martita Aceves RN) 0859 (Given - Provider: Martita Aceves RN)1249 (Given - Provider: Yolanda Raza RN)1700 (Canceled Entry - Provider: Automatic Discharge Provider - Comment: Automatically canceled at discontinue of medication order) losartan (Cozaar) tablet 50 mg 50 mg, Oral, Daily, First dose (after last modification) on Mon03/17/24 at 0900 0855 (Given - Provider: Iris Rivas RN) 1042 (Given - Provider: Martita Aceves RN) 0853 (Given - Provider: Martita Aceves RN) polyethylene glycol (PEG) 3350 (Miralax) packet 17 g 17 g, Oral, Daily, First dose on 03/23/24 at 1115 0900 (Not Given - Provider: Iris Rivas RN - Reason: Patient/family refused) 0900 (Not Given - Provider: Martita Aceves RN - Reason: Patient/family refused) 0900 (Not Given - Provider: Martita Aceves RN - Reason: Patient/family refused) rosuvastatin (Crestor) tablet 40 mg (CANCELED) 40 mg, Oral, Nightly, First dose on Mon03/15/24 at 2100 2115 (Given - Provider: Gladis Black RN) 2051 (Given - Provider: Rebeca Mohr RN) senna-docusate sodium (Senokot-S) 8.6-50 MG tablet 2 tablet 2 tablet, Oral, Daily, First dose on 03/23/24 at 1115 0855 (Not Given - Provider: Iris Rivas RN - Reason: Patient/family refused) 1036 (Not Given - Provider: Martita Aceves RN - Reason: Patient/family refused) 0852 (Given - Provider: Martita Aceves RN) ticagrelor (Brilinta) tablet 90 mg(Linked Group 1) 90 mg, Oral, 2 times daily, First dose on 03/16/24 at 2100, For 365 days 0856 (Given - Provider: Iris Rivas RN)211 (Given - Provider: Gladis Black RN) 1037 (Given - Provider: Martita Aceves RN)205 (Given - Provider: Rebeca Mohr, TIAN) 0852 (Given - Provider: Martita Aceves RN) PRN Medication Order 03/25/2024 03/26/2024 03/27/2024 Acetaminophen (Tylenol) 650 MG/20.3ML solution 650 mg(Linked Group 2) 650 mg, Oral, Every 4 hours PRN, mild pain (1-3), Starting on 03/16/24 at 1923, Give oral liquid if patient prefers or per feeding tube if present. If inadequate response within 60 minutes, proceed to next-line agent for same PRN reason or contact provider if no further options ordered. 1808 (See Alternative - Provider: Iris Rivas RN)211 (See Alternative - Provider: Gladis Black RN) 0644 (See Alternative - Provider: Gladis Black RN)0757 (Held by provider - Provider: Shea Lanza DO - Reason: Other - Comment: Transient Transaminitis)1505 (Unheld by provider - Provider: Shea Lanza DO)1709 (See Alternative - Provider: Martita Aceves RN) 0401 (See Alternative - Provider: Rebeca Mohr, TIAN) acetaminophen (Tylenol) suppository 650 mg(Linked Group 2) 650 mg, Rectal, Every 4 hours PRN, mild pain (1-3), Starting on 03/16/24 at 1923, Give AZ if unable to administer by mouth or feeding tube. If inadequate response within 60 minutes, proceed to next-line agent for same PRN reason or contact provider if no further options ordered. 1808 (See Alternative - Provider: Iris Rivas RN)211 (See Alternative - Provider: Gladis Black RN) 0644 (See Alternative - Provider: Gladis Black RN)0757 (Held by provider - Provider: Shea Lanza DO - Reason: Other - Comment: Transient Transaminitis)1505 (Unheld by provider - Provider: Shea Lanza DO)1709 (See Alternative - Provider: Martita Aceves RN) 0401 (See Alternative - Provider: Rebeca Mohr RN) acetaminophen (Tylenol) tablet 650 mg(Linked Group 2) 650 mg, Oral, Every 4 hours PRN, mild pain (1-3), Starting on Mon03/16/24 at 1923, If inadequate response within 60 minutes, proceed to next-line agent for same PRN reason or contact provider if no further options ordered. 180 (Given - Provider: Iris Rivas RN)2112 (Given - Provider: Gladis Black RN) 0644 (Given - Provider: Gladis Black RN)0757 (Held by provider - Provider: Shea Lanza DO - Reason: Other - Comment: Transient Transaminitis)1505 (Unheld by provider - Provider: Shea Lanza DO)1709 (Given - Provider: Martita Aceves RN) 0401 (Given - Provider: Rebeca Mohr RN) dextrose 5 % infusion 100 mL/hr, IntraVENous, PRN, Blood sugar less than 70mg/dL, Starting on Mon03/15/24 at 2000, Start infusion following administration of dextrose 50% or glucagon. dextrose 50 % solution 12.5 g 12.5 g, IntraVENous, PRN, low blood sugar, Blood glucose less than 70 mg/dL and patient NOT ALERT or NPO., Starting on Mon03/15/24 at 2000, If patient does not respond within 5 minutes, repeat dose x1. Start D5W at 100 mL/hour until ordering provider can be reached. Repeat blood glucose in 15 minutes. If blood glucose is less than 70 mg/dL, repeat treatment and recheck blood glucose in 15 minutes x2. If using Glucostabilizer, dose as instructed per system. glucagon (human recombinant) injection 1 mg 1 mg, IntraMUSCular, PRN, low blood sugar, Blood glucose less than 70 mg/dL and patient NOT ALERT or NPO and does not have IV access., Starting on Mon03/15/24 at 2000, After administration, attempt intravenous access and start D5W at 100 mL/hr. Repeat blood glucose in 15 minutes x2 and notify provider. glucose oral gel 15 g 15 g, Oral, As needed, low blood sugar, Starting on Mon03/15/24 at 2000, If blood glucose less than 50 mg/dL and patient ALERT and NOT NPO, give 2 tubes glucose gel. If blood glucose less than 70 mg/dL and patient ALERT and NOT NPO, give 1 tube glucose gel. Repeat blood glucose in 15 minutes. If blood glucose is less than 70 mg/dL, repeat treatment and recheck blood glucose in 15 minutes x2 and notify provider. Insulin Lispro (Humalog) injection 4 Units 4 Units, SubCUTAneous, With snacks, high blood sugar, For late night snack, Starting on Mon03/23/24 at 1441 ipratropium-albuterol (Duo-Neb) 0.5-2.5 mg/3 mL nebulizer solution 3 mL 3 mL, Nebulization, 3 times daily PRN, wheezing, Starting on Mon03/18/24 at 0815 naloxone (Narcan) injection 0.4 mg 0.4 mg, IntraVENous, Every 5 min PRN, opioid reversal, respiratory depression, over sedation, RR <10, pinpoint pupils, Starting on Mon03/15/24 at 1958, +++notify chaperon provider if used+++ nitroglycerin (Nitrostat) SL tablet 0.4 mg 0.4 mg, SubLINGual, Every 5 min PRN, chest pain, Starting on Mon03/15/24 at 2100, May administer up to 3 doses per episode. ondansetron (Zofran) injection 4 mg(Linked Group 3) 4 mg, IntraVENous, Every 6 hours PRN, nausea, vomiting, Starting on Mon03/15/24 at 1958, 1st Line. Give IV if patient is unable to take orally. If inadequate response within 60 minutes, proceed to next-line agent or contact provider if no further options ordered. ondansetron ODT (Zofran-ODT) disintegrating tablet 4 mg(Linked Group 3) 4 mg, Oral, Every 8 hours PRN, nausea, vomiting, Starting on Mon03/15/24 at 1958, 1st Line. If inadequate response within 60 minutes, proceed to next-line agent or contact provider if no further options ordered. Patient should allow tablet to dissolve on tongue. Do not remove from blister pack until just before administering. sodium chloride 0.9 % infusion 5-250 mL/hr, IntraVENous, PRN, if patient receiving piggyback infusions and maintenance fluids are not ordered OR KVO fluids to protect IV site / prevent frequent line interruptions / long duration, Starting on Mon03/15/24 at 1957, For piggyback infusion, administer at same rate as piggyback for a total of 25 mL. Enter 25 mL into dose field and piggyback rate into rate field of order. If piggyback is infusing at a rate less than 100 mL/hr, enter 25 mL into dose field and 100 mL/hr into rate field of order. For KVO fluids, enter rate of 20 mL/hr or less into rate field of order. Linked Groups Order Group 1: ticagrelor (Brilinta) tablet 180 mg (COMPLETED) 180 mg, Oral, Once, On 03/16/24 at 1045, For 1 dose Followed by ticagrelor (Brilinta) tablet 90 mgJump to med 90 mg, Oral, 2 times daily, First dose on 03/16/24 at 2100, For 365 days Group 2: acetaminophen (Tylenol) tablet 650 mgJump to med 650 mg, Oral, Every 4 hours PRN, mild pain (1-3), Starting on 03/16/24 at 1923, If inadequate response within 60 minutes, proceed to next-line agent for same PRN reason or contact provider if no further options ordered. Or Acetaminophen (Tylenol) 650 MG/20.3ML solution 650 mgJump to med 650 mg, Oral, Every 4 hours PRN, mild pain (1-3), Starting on 03/16/24 at 1923, Give oral liquid if patient prefers or per feeding tube if present. If inadequate response within 60 minutes, proceed to next-line agent for same PRN reason or contact provider if no further options ordered. Or acetaminophen (Tylenol) suppository 650 mgJump to med 650 mg, Rectal, Every 4 hours PRN, mild pain (1-3), Starting on 03/16/24 at 1923, Give AZ if unable to administer by mouth or feeding tube. If inadequate response within 60 minutes, proceed to next-line agent for same PRN reason or contact provider if no further options ordered. Group 3: ondansetron ODT (Zofran-ODT) disintegrating tablet 4 mgJump to med 4 mg, Oral, Every 8 hours PRN, nausea, vomiting, Starting on Mon03/15/24 at 1958, 1st Line. If inadequate response within 60 minutes, proceed to next-line agent or contact provider if no further options ordered. Patient should allow tablet to dissolve on tongue. Do not remove from blister pack until just before administering. Or ondansetron (Zofran) injection 4 mgJump to med 4 mg, IntraVENous, Every 6 hours PRN, nausea, vomiting, Starting on Mon03/15/24 at 1958, 1st Line. Give IV if patient is unable to take orally. If inadequate response within 60 minutes, proceed to next-line agent or contact provider if no further options ordered. Scheduled Medication Order 03/31/2024 04/01/2024 04/02/2024 aspirin EC tablet 81 mg 81 mg, Oral, DAILY, First dose on Mon03/29/24 at 1139, Until Discontinued 937 (Given - Provider: Ayana Gaffney RN) 0824 (Held - Provider: Argelia Daniel RN - Reason: Pt NPO) 0931 (Given - Provider: Carmen Kaye RN) atorvastatin (LIPITOR) tablet 40 mg 40 mg, Oral, NIGHTLY, First dose on Mon03/29/24 at 2100, Until Discontinued 2002 (Given - Provider: Misti Saucedo RN) 195 (Given - Provider: Misti Saucedo RN) 2100 (Due) bacteriostatic water injection 30 mL 30 mL, IntraVENous, ONCE, 1 dose, On Mon04/01/24 at 1045, Brand Name: Bacteriostatic water, Generic Name: Bacteriostatic water, Form: Injection, Length of Therapy: once, Reason for Non-Formulary Order: not present in order options to select, How Soon Needed? (normally takes 72 hrs. to procure): GORGE, Please send down to pre/post cath 6688 (Canceled Entry - Provider: Aung Rodriguez, TIAN) carvedilol (COREG) tablet 6.25 mg 6.25 mg, Oral, 2 TIMES DAILY, First dose on Mon03/29/24 at 1139, Until Discontinued, Administer with food to minimize the risk of orthostatic hypotension 0938 (Given - Provider: Ayana Gaffney RN)2002 (Given - Provider: Misti Saucedo RN) 823 (Held - Provider: Argelia Daniel RN - Reason: Pt NPO)1950 (Given - Provider: Misti Saucedo RN) 09 (Given - Provider: Carmen Kaye RN)2099 (Due) cefTRIAXone (ROCEPHIN) 1,000 mg in sodium chloride 0.9 % 50 mL IVPB (mini-bag) 1,000 mg, IntraVENous, EVERY 12 HOURS, 10 doses, First dose on Mon03/29/24 at 1230, Last dose on Mon04/03/24 at 0300, Antimicrobial Indications: Urinary Tract Infection, UTI duration of therapy: 5 days 0256 (New Bag - Provider: Santa Storey RN)0342 (Stopped - Provider: Santa Storey RN)1403 (New Bag - Provider: Ayana Gaffney RN)1419 (Stopped - Provider: Ayana Gaffney RN) 0150 (New Bag - Provider: Misti Saucedo RN)0222 (Stopped - Provider: Aide Marti RN)1511 (New Bag - Provider: Argelia Daniel RN)1551 (Stopped - Provider: Argelia Daniel RN) 0411 (New Bag - Provider: Aide Marti RN - Comment: Loss of IV access)0449 (Stopped - Provider: Aide Marti RN)1500 (Due - Provider: Leny Haddad [facility]) empagliflozin (JARDIANCE) tablet 10 mg 10 mg, Oral, DAILY, First dose on Mon03/29/24 at 1139, Until Discontinued, Indication of Use: Type 2 diabetes, Heart Failure (preserved EF) 0938 (Given - Provider: Ayana Gaffney RN) 08 (Held - Provider: Argelia Daniel RN - Reason: Pt NPO) 930 (Given - Provider: Carmen Kaye RN) insulin glargine (LANTUS) injection vial 25 Units 25 Units, SubCUTAneous, DAILY, First dose on Mon03/29/24 at 1230, Until Discontinued 0939 (Given - Provider: Ayana Gaffney RN) 0825 (Not Given - Provider: Argelia Daniel RN - Reason: Pt NPO) 0932 (Given - Provider: Carmen Kaye RN) insulin lispro (HUMALOG,ADMELOG) injection vial 0-4 Units 0-4 Units, SubCUTAneous, NIGHTLY, First dose on Mon03/29/24 at 2100, Until Discontinued, If continuous tube feedings/TPN/NPO, give correction dose based on result, no reduction in dose. If eating or bolus tube feeding: Corrective Bedtime Algorithm Glucose: Dose: 70-299 No Insulin 300-349 4 Units Over 349 4 Units and notify physician 2009 (Given - Provider: Misti Saucedo RN) 2052 (Not Given - Provider: Aide Marti RN - Reason: Order parameters not met) 2100 (Due) insulin lispro (HUMALOG,ADMELOG) injection vial 0-8 Units 0-8 Units, SubCUTAneous, 3 TIMES DAILY WITH MEALS, First dose on Mon03/29/24 at 1230, Until Discontinued, Medium Dose Corrective Algorithm Glucose: Dose: 70-199 No Insulin 200-249 2 Units 250-299 4 Units 300-349 6 Units Over 349 8 Units and notify physician 1038 (Held - Provider: Ayana Gaffney RN - Reason: Order parameters not met)1149 (Held - Provider: Ayana Gaffney RN - Reason: Order parameters not met)1735 (Not Given - Provider: Carmen Kaye RN - Reason: Order parameters not met) 0825 (Not Given - Provider: Argelia Daniel RN - Reason: Pt NPO)1210 (Not Given - Provider: Aung Rodriguez RN - Reason: Patient not available - 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 If meal intake is uncertain then immediate post meal injection is acceptable. Give prior to bolus tube feedings. Hold if patient is NPO or if pre-meal blood glucose is less than or equal to 70 mg/dL. 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 0938 (Given - Provider: Ayana Gaffney RN)2002 (Given - Provider: Misti Saucedo, TIAN) 0826 (Held - Provider: Argelia Daniel RN - Reason: Pt NPO)195 (Given - Provider: Misti Saucedo, TIAN) 0931 (Given - Provider: Carmen Kaye RN)2100 (Due) PRN Medication Order 03/31/2024 04/01/2024 04/02/2024 0.9 % sodium chloride infusion IntraVENous, at 5-250 mL/hr, PRN, if patient receiving piggyback infusions and maintenance fluids are not ordered OR KVO fluids to protect IV site / prevent frequent line interruptions/ long duration, Starting on Mon03/29/24 at 1131, For piggyback infusion, administer at same rate as piggyback for a total of 25 mL. Enter 25 mL into dose field and piggyback rate into rate field of order. If piggyback is infusing at a rate less than 100 mL/hr, enter 25 mL into dose field and 100 mL/hr into rate field of order. For KVO fluids, enter rate of 20 mL/hr or less into rate field of order. acetaminophen (TYLENOL) suppository 650 mg(Linked Group 1) 650 mg, Rectal, EVERY 6 HOURS PRN, Starting on Mon03/29/24 at 1131, Until Discontinued, Pain Mild (1-3), Fever, For temp greater than 100.4 F (38 C), Administer if oral route cannot be used. acetaminophen (TYLENOL) tablet 650 mg(Linked Group 1) 650 mg, Oral, EVERY 6 HOURS PRN, Starting on Mon03/29/24 at 1131, Until Discontinued, Pain Mild (1-3), Fever, For temp greater than 100.4 F (38 C), Maximum dose of acetaminophen is 4000 mg from all sources in 24 hours. benzocaine (HURRICAINE) 20 % oral spray (CANCELED) PRN, Starting on Mon04/01/24 at 1126, Intra-procedure(Cath) 1126 (Given - Provider: Fara Soto DO) dextrose 10 % infusion IntraVENous, at 100 mL/hr, CONTINUOUS PRN, if blood glucose remains LESS THAN 70 mg/dL after 2 dextrose 10% intravenous boluses or administration of glucagon, Starting on Mon03/29/24 at 1204, If blood glucose fails to stabilize after 2 dextrose 10% intravenous boluses or glucagon administration, start dextrose 10% infusion at 100 mL/hour and repeat blood glucose at 30 and 60 minutes. If blood glucose is GREATER THAN 70 mg/dL after 60 minutes, discontinue dextrose 10% infusion. dextrose bolus 10% 125 mL(Linked Group 2) 125 mL, IntraVENous, at 937.5 mL/hr, Administer over 8 Minutes, PRN, Other, Blood glucose 40 - 69 mg/dL and patient NOT ALERT or NPO, Starting on Mon03/29/24 at 1204, Repeat blood glucose in 15 minutes. If blood glucose remains LESS THAN 70 mg/dL, repeat treatment and recheck blood glucose in 15 minutes x 2. If using glycemic management system, dose as instructed per system. If blood glucose remains LESS THAN 70 mg/dL after 2 intravenous boluses start dextrose 10% at 100 mL/hour and notify provider. dextrose bolus 10% 250 mL(Linked Group 2) 250 mL, IntraVENous, at 937.5 mL/hr, Administer over 16 Minutes, PRN, Other, Blood glucose LESS THAN 40 mg/dL and patient NOT ALERT or NPO, Starting on Mon03/29/24 at 1204, Repeat blood glucose in 15 minutes. If blood glucose remains LESS THAN 70 mg/dL, repeat treatment and recheck blood glucose in 15 minutes x 2. If using glycemic management system, dose as instructed per system. If blood glucose remains LESS THAN 70 mg/dL after 2 intravenous boluses start dextrose 10% at 100 mL/hour and notify provider. fentaNYL (SUBLIMAZE) injection (CANCELED) IntraVENous, PRN, Starting on Mon04/01/24 at 1128, Until Mon04/01/24 at 1232, Intra-op 1128 (Given - Provider: Catia Vargas, TIAN)1130 (Given - Provider: Catia Vargas, RN)1133 (Given - Provider: Catia Vargas, RN) glucagon injection 1 mg 1 mg, SubCUTAneous, PRN, Starting on Mon03/29/24 at 1204, Until Discontinued, Low blood sugar, Blood glucose LESS THAN 70 mg/dL and patient NOT ALERT or NPO and does not have IV access., After administration, attempt intravenous access and start dextrose 10% at 100 mL/hr. Repeat blood glucose in 15 minutes x 2 and notify provider. glucose chewable tablet 16 g 16 g (4 tablet), Oral, PRN, Starting on Mon03/29/24 at 1204, Until Discontinued, Low blood sugar, If blood glucose is LESS THAN 70 mg/dL and patient is alert and tolerating oral. Give 4 tablets (16g) Repeat blood glucose in 15 minutes. If blood glucose is LESS THAN 70 mg/dL, repeat treatment and recheck blood glucose in 15 minutes x 2. If blood glucose remains LESS THAN 70 mg/dL, notify provider. lidocaine 1 % injection (CANCELED) PRN, Starting on Mon04/01/24 at 1205, Until Mon04/01/24 at 1232, Intra-procedure(Cath) 1216 (Given - Provider: Fara Soto DO) lidocaine viscous hcl (XYLOCAINE) 2 % solution (CANCELED) PRN, Starting on Mon04/01/24 at 1125, Until Mon04/01/24 at 1232, Intra-procedure(Cath) 1125 (Given - Provider: Catia Vargas, TIAN) midazolam (VERSED) injection (CANCELED) IntraVENous, PRN, Starting on Mon04/01/24 at 1128, Until Mon04/01/24 at 1232, Intra-procedure(Cath) 1128 (Given - Provider: Catia Vargas RN)1130 (Given - Provider: Catia Vargas RN)1133 (Given - Provider: Catia Vargas RN) oxyCODONE (ROXICODONE) immediate release tablet 5 mg 5 mg, Oral, EVERY 4 HOURS PRN, Starting on Mon03/29/24 at 1143, Until Discontinued, Pain Moderate (4-6), Pain Severe (7-10) 0254 (Given - Provider: Santa Storey RN)1137 (Given - Provider: Ayana Gaffney RN)2002 (Given - Provider: Misti Saucedo RN) 0148 (Given - Provider: Misti Saucedo, TIAN)195 (Given - Provider: Misti Sauecdo RN) 0421 (Given - Provider: Misti Saucedo RN) polyethylene glycol (GLYCOLAX) packet 17 g 17 g, Oral, DAILY PRN, Starting on Mon03/29/24 at 1131, Until Discontinued, Constipation, First line therapy for constipation sodium chloride flush 0.9 % injection 10 mL 10 mL, IntraVENous, PRN, Starting on Mon03/29/24 at 1131, Until Discontinued, Line Care, After every IV line use 1510 (Given - Provider: Argelia Daniel RN) Linked Groups Order Group 1: acetaminophen (TYLENOL) tablet 650 mgJump to med 650 mg, Oral, EVERY 6 HOURS PRN, Starting on Mon03/29/24 at 1131, Until Discontinued, Pain Mild (1-3), Fever, For temp greater than 100.4 F (38 C)
Maximum dose of acetaminophen is 4000 mg from all sources in 24 hours.
Or acetaminophen (TYLENOL) suppository 650 mgJump to med 650 mg, Rectal, EVERY 6 HOURS PRN, Starting on Mon03/29/24 at 1131, Until Discontinued, Pain Mild (1-3), Fever, For temp greater than 100.4 F (38 C)
Administer if oral route cannot be used.
Group 2: dextrose bolus 10% 125 mLJump to med 125 mL, IntraVENous, at 937.5 mL/hr, Administer over 8 Minutes, PRN, Other, Blood glucose 40 - 69 mg/dL and patient NOT ALERT or NPO, Starting on Mon03/29/24 at 1204
Repeat blood glucose in 15 minutes. If blood glucose remains LESS THAN 70 mg/dL, repeat treatment and recheck blood glucose in 15 minutes x 2. If using glycemic management system, dose as instructed per system. If blood glucose remains LESS THAN 70 mg/dL after 2 intravenous boluses start dextrose 10% at 100 mL/hour and notify provider.
Or dextrose bolus 10% 250 mLJump to med 250 mL, IntraVENous, at 937.5 mL/hr, Administer over 16 Minutes, PRN, Other, Blood glucose LESS THAN 40 mg/dL and patient NOT ALERT or NPO, Starting on Mon03/29/24 at 1204
Repeat blood glucose in 15 minutes. If blood glucose remains LESS THAN 70 mg/dL, repeat treatment and recheck blood glucose in 15 minutes x 2. If using glycemic management system, dose as instructed per system. If blood glucose remains LESS THAN 70 mg/dL after 2 intravenous boluses start dextrose 10% at 100 mL/hour and notify provider.
Scheduled Medication Order 07/12/2025 07/13/2025 07/14/2025 sodium chloride flush 0.9 % injection 5-40 mL 5-40 mL, IntraVENous, EVERY 12 HOURS SCHEDULED (2 times per day), First dose on Mon07/14/25 at 1015, Until Discontinued, For Line Patency: Peripheral IV = 5 mL; Midline or Central Line = 10 mL/lumen. If following IV push medication, administer flush at same rate as the IV push. Flush volume is determined by type of infusion therapy being given. For non-viscous solutions use: Peripheral IV = 5 mL Midline or Central Line = 10 mL/lumen For viscous solutions (i.e. blood components, parenteral nutrition, contrast media, or after obtaining blood sample) use: Peripheral IV = 10 mL Midline or Central Line = 20 mL/lumen, Pre-procedure(GI) 1015 (Due)2100 (Due) Continuous Medication Order 07/12/2025 07/13/2025 07/14/2025 0.9 % sodium chloride infusion IntraVENous, at 75 mL/hr, CONTINUOUS, Starting on Mon07/14/25 at 1015, Pre-procedure(GI) 1026 (New Bag - Prov ider: Khang Reddy RN) PRN Medication Order 07/12/2025 07/13/2025 07/14/2025 0.9 % sodium chloride infusion IntraVENous, at 100 mL/hr, PRN, If patient receiving piggyback infusions without ordered maintenance IV fluids or with frequent/long duration piggyback infusions, Starting on Mon07/14/25 at 0954, Administer at the same rate as the piggyback being infused., Pre-procedure(GI) sodium chloride flush 0.9 % injection 5-40 mL 5-40 mL, IntraVENous, PRN, Starting on Mon07/14/25 at 0954, Until Discontinued, Line Care, After every IV line use, For Line Patency: Peripheral IV = 5 mL; Midline or Central Line = 10 mL/lumen. If following IV push medication, administer flush at same rate as the IV push. Flush volume is determined by type of infusion therapy being given. For non-viscous solutions use: Peripheral IV = 5 mL Midline or Central Line = 10 mL/lumen For viscous solutions (i.e. blood components, parenteral nutrition, contrast media, or after obtaining blood sample) use: Peripheral IV = 10 mL Midline or Central Line = 20 mL/lumen, Pre-procedure(GI) sterile water for irrigation (CANCELED) PRN, Starting on Mon07/14/25 at 1133, Intra-op 1133 (Given - Provid er: Rima Hammond MD - Comment: Mixed with GI Ease. Dose approximate) No Frequency Medication Order 07/12/2025 07/13/2025 07/14/2025 sodium chloride 0.9 % infusion Starting on Mon07/14/25 at 0956, For 1 dose, Jenn Leal: cabinet override 1000 (Due) Care Teams (unrecognized sec tion and content) Cascade Operator Relationship Specialty Start Date End Date Ricky Hendricks MD [address] [place] [id number] PCP - General 09/16/15 04/04/22 Cascade Operator Relationship Specialty Start Date End Date Luz Mcdermott [employer]ISER - ELECTRICAL CAD DESIGNER [address] [address], [address] [place] [address] PCP - General Family Nurse Practitioner 04/13/22 Team Status: Active Member Role Status Dates JAMIE BUCHANAN Family Provider Active LUZ MCDERMOTT Primary Care Provider Active Team Status: Inactive Member Role Status Dates Dr. Elmer Gomes , DO Attending Provider, Emergency P frida Active No Primary Care Physician Primary Care Provider Active Team Status: Inactive Member Role Status Dates Dr. Yaniv Tarango , DO Emergency Provider Active SAMARIA RUDOLPH Primary Care Provider Active Cascade Operator Relationship Specialty Start Date End Date Luz Mcdremott [address] [place] [address], [address] [place], [place] [id number] PCP - General Family Nurse Practitioner 03/15/24 Cascade Operator Relationship Specialty Start Date End Date Luz Mcdermott [employer] - ELECTRICAL CAD DESIGNER [address] [place] [address] [address] [place] [address] PCP - General Family Nurse Practitioner 04/13/22 Cascade Operator Relationship Specialty Start Date End Date Luz Mcdermott [employer] - ELECTRICAL CAD DESIGNER [address] [place] [address] [address] [place] [address] PCP - General Family Nurse Practitioner 04/13/22 Cascade Operator Relationship Specialty Start Date End Date Luz Mcdermott POIS[employer] - ELECTRICAL CAD DESIGNER [address] [place] [address] [address] [place] [address] PCP - General Family Nurse Practitioner 04/13/22 Cascade Operator Relationship Specialty Start Date End Date Luz Mcdermott POIS[employer] - ELECTRICAL CAD DESIGNER [address] [place] [id number] PCP - General Family Nurse Practitioner 04/13/22 Cascade Operator Relationship Specialty Start Date End Date Luz Mcdermott POIS[employer] - ELECTRICAL CAD DESIGNER [address] [place] [id number] PCP - General Family Nurse Practitioner 04/13/22 Cascade Operator Relationship Specialty Start Date End Date Luz Mcdermott POISER - ELECTRICAL CAD DESIGNER [address] [place] [id number] PCP - General Family Nurse Practitioner 04/13/22 Cascade Operator Relationship Specialty Start Date End Date Luz Mcdermott POIS[employer] - ELECTRICAL CAD DESIGNER [address] [place] [id number] PCP - General Family Nurse Practitioner 04/13/22 Cascade Operator Relationship Specialty Start Date End Date Luz Mcdermott POIS[employer] - ELECTRICAL CAD DESIGNER [address] [place] [id number] PCP - General Family Nurse Practitioner 04/13/22 Team Status: Active Member Role/Relationship Status Dates CHRISSIE ParraC Primary care physician Active Team Status: Inactive Member Role/Relationship Status Dates CHRISSIE ParraC Primary care physician Active Start: July 09, 2025 End: July 09, 2025 Dr. Peter Thompson , Attending physician Active Start: July 09, 2025 End: July 09, 2025 Dr. Peter Thompson , Emergency Department Physician Active Start: July 09, 2025 End: July 09, 2025 Goals (unrecognized section and content) Goals may be documented in a n alternate section FOR RECORDS PERTAINING TO PATIENTS WHO ARE OR HAVE BEEN ENROLLED IN A CHEMICAL DEPENDENCY/SUBSTANCEABUSE PROGRAM, SOME INFORMATION MAY BE OMITTED. This clinical summary was aggregated from multiple sources. Caution should be exercised in using it in the provision of clinical care. This summary normalizes information from multiple sources, and as a consequence, information in this document may materially change the coding, format and clinical context of patient data. In addition, data may be omitted in some cases. CLINICAL DECISIONS SHOULD BE BASED ON THE PRIMARY CLINICAL RECORDS. [employer] provides no warranty or guarantee of the accuracy or completeness of information in this document.
--- NOTE | 2025-08-05 18:25 | EDS_ITS ---
HPI History of Present Illness Chief Complaint: Dizziness Narrative Narrative: Patient is a 54-year-old female presenting to the emergency department for possible stroke. Patient has a past medical history of a previous stroke, dizziness, diabetes, heart failure, NSTEMI. 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 Patient is a very poor historian. Patient states that yesterday around noon she developed dizziness. Patient states that she went to bed last night and then this morning around 8 AM she woke up with right sided weakness in her arm and legs. She is not on any OAC at home. She denies slurred speech, left sided numbness or weakness. Denies recent falls or head trauma. [facility] Medical History Tobacco abuse Hyperlipidemia History of non-ST elevation myocardial infarction (NSTEMI) Obesity (BMI 30-39.9) Visual disturbance Psoriasis HTN (hypertension) Diabetes Home Medications Medication Instructions Recorded Last Taken Type HumaLOG KwikPen Insulin See Rx Instructions subcut 3 XD 07/18/24 Unknown History DIABETES aspirin 81 mg chewable tablet 1 tab PO DAILY heart hea lth 07/18/24 Unknown History buspirone 7.5 mg tablet 7.5 mg PO BID mental health 07/18/24 Unknown History carvedilol 6.25 mg tablet 6.25 mg PO BID blood pressur e 07/18/24 Unknown History empagliflozin 10 mg tablet 10 mg PO DAILY diabetes Unknown History (Jardiance) insulin glargine 100 unit/mL (3 26 unit subcut QPM steff betes 07/18/24 Unknown History mL) subcutaneous pen (Lantus Solostar U-100 Insulin) losartan 50 mg tablet 50 mg PO DAILY blood pressur e 07/18/24 Unknown History ropinirole 0.5 mg tablet 0.5 mg PO TID restless leg 1 Unknown History sertraline 25 mg tablet 25 mg PO DAILY mental health 07/18/24 Unknown History ticagrelor 90 mg tablet (Brilinta) 90 mg PO BID anti p latelet 07/18/24 Unknown History atorvastatin 40 mg tablet 80 mg (2 x 40 mg) PO DAILY 3 0 days 07/20/24 Unknown Rx #60 tabs meclizine 12.5 mg tablet 12.5 mg PO TID PRN PRN Dizzi ness 07/20/24 Unknown Rx #20 tabs amlodipine 5 mg tablet 5 mg PO BID #60 tabs 4 Unknown Rx Allergy/AdvReac Type Severity Reaction Status Date / Time No Known Allergies Allergy Verified 08/05/25 18:11 Surgical History History of nasal surgery Hx of lymph node biopsy Hx of cholecystectomy Social History Smoking Status: Current every day smoker tobacco type: cigarettes ROS ROS ED ROS Narrative See HPI EXAM Physical Exam Narrative Exam Narrative: Vital signs: Reviewed General: Alert and orientedx3. No acute distress. Disheveled appearing. HEENT: Head is normocephalic and atraumatic, sinuses nontender, pupils equal round and reactive. Nares are patent. Oropharynx and throat exams normal. Neck: Supple without lymphadenopathy nontender Cardiovascular: Regular rate and rhythm, no murmurs. No rubs or gallops. Normal S1 and S2 Respiratory: Clear to auscultation bilaterally. No wheezes, rales, rhonchi Abdominal: Soft and nontender. Normal bowel sounds. No guarding or rebound. Nonsurgical abdomen Extremities: No tenderness. No bruising. Normal range of motion. Normal sensation. Skin: No rash or redness. The rest of the physical exam is unremarkable Const Vital Signs: 08/05/25 18:12 08/05/25 18:22 08/05/25 18:30 Temperature 97.5 F L Temperature Source Oral Pulse Rate 91 91 72 Respiratory Rate 16 16 17 Blood Pressure 174/98 H 174/98 H 152/74 H Blood Pressure Mean 123 123 100 Pulse Ox 100 100 97 Oxygen Delivery Method Room Air 08/05/25 18:36 08/05/25 19:00 08/05/25 19:30 Temperature Temperature Source Pulse Rate 73 72 Respiratory Rate 24 H 16 Blood Pressure 136/83 H 152/66 H Blood Pressure Mean 99 94 Pulse Ox 94 99 Oxygen Delivery Method Room Air Room Air 08/05/25 20:00 08/05/25 20:00 08/05/25 20:30 Temperature Temperature Source Pulse Rate 73 73 Respiratory Rate 20 H 19 H Blood Pressure 161/81 H 161/81 H 183/97 H Blood Pressure Mean 107 107 117 Pulse Ox 99 100 Oxygen Delivery Method Room Air 08/05/25 20:56 08/05/25 21:00 Temperature 98.5 F 98.5 F Temperature Source Oral Pulse Rate 67 67 Respiratory Rate 22 H 22 H Blood Pressure 183/97 H 183/97 H Blood Pressure Mean 125 125 Pulse Ox 100 100 Oxygen Delivery Method Room Air MDM MDM MDM Narrative Medical decision making narrative: Patient is a 54-year-old female presenting to the emergency department as a possible stroke. Patient was seen and examined in triage immediately on arrival. NIH 2. Very difficult to obtain and last known well time. Team was called based on my evaluation of the patient in triage with NIH of 2. Patient is not a candidate for TNK. Very difficult to assess when her last known well was. CT brain with CTA head and neck were obtained. Evaluated by Dr. Clarke, stroke neurology on tele. CT the brain with no acute, large territorial infarction. Bilateral occipital lobe encephalomalacia likely from prior chronic infarctions. Left carrizales radiata encephalomalacia. 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 Moderate stenosis vs possible dissection at the distal right V4 segment. right A2 appears absent which may reflect congenital or occlusion. Mild stenosis of the distal M1 (~50%). Mural noncalcified atherosclerosis of the proximal left subclavian artery with mild to moderate stenosis. Moderate (~75%) stenosis of the right carotid siphon and mild to moderate stenosis (~50%) of the bilateral carotid bulbs due to atherosclerosis. Given the CTA findings I did speak with Dr. Clarke again over the phone. She thinks these are likely chronic in nature however given the patient's findings and her extensive findings on CTA she did offer to have the patient transferred to [facility] for further management. I think given the read of possible stenosis versus dissection I think it is appropriate that the patient be transferred to a facility with neurosurgery and NIL if needed. Will continue the patient's dual antiplatelets at Dr. Clarke's request. Discussed findings with the patient and need for transfer for further management care. Patient is agreeable. NIH is stable and consistent had an NIH of 2. Clinical impression Strokelike symptoms History & Record Review Discussion w/independent historian: Patient Lab Data Attestation: I reviewed the patient's lab results. Labs: Laboratory Results - last 24 hr 08/05/25 08/05/25 08/05/25 18:11 18:27 20:30 WBC 12.9 H RBC 5.29 Hgb 15.8 H Hct 47.7 H MCV 90.2 MCH 29.9 MCHC 33.1 RDW Std Deviation 44.6 H RDW Coeff of Nhung 13.4 Plt Count 290 MPV 11.8 Immature Gran % (Auto) 0.500 Neut % (Auto) 59.2 Lymph % (Auto) 29.3 Warren % (Auto) 7.7 Eos % (Auto) 2.4 Baso % (Auto) 0.9 Absolute Neuts (auto) 7.6 Absolute Lymphs (auto) 3.78 Nucleated RBC % 0 PT 12.9 INR 1.0 APTT 25.0 Sodium 136 Potassium 4.1 Chloride 99 Carbon Dioxide 23.1 Anion Gap 14 BUN 25 H Creatinine 1.11 Estim Creat Clear Calc 61.48 Est GFR (MDRD) Non-Af 59 L BUN/Creatinine Ratio 22.5 H Glucose 389 H Calcium 10.1 Troponin T High Sens 11 D Troponin T Hi Sens 2 Hr 9 POC Glucose 343 H Radiography Diagnostic Testing: Clinical Impression(s) from Imaging Studies Brain CT 08/05/25 18:15 IMPRESSION: No acute, large territorial infarction. Bilateral occipital lobe encephalomalacia likely from prior chronic infarctions. Left carrizales radiata encephalomalacia. Scattered paranasal sinus fluid. Stroke Alert: No acute, large territorial infarction. The critical findings in the findings and impression above were relayed directly by me by telephone to Caprice Fermin on 08/05/2025 at 6:45 pm with readback verification. Reading Location: 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 Moderate stenosis vs possible dissection at the distal right V4 segment. 2) right A2 appears absent which may reflect congenital or occlusion. 3) mild stenosis of the distal M1 (~50%). 4) mural noncalcified atherosclerosis of the proximal left subclavian artery with mild to moderate stenosis. 5) moderate (~75%) stenosis of the right carotid siphon and mild to moderate stenosis (~50%) of the bilateral carotid bulbs due to atherosclerosis. The critical findings in the findings and impression above were relayed directly by me by telephone to Caprice Fermin on 08/05/2025 at 7:25 pm EST with readback verification. Reading Location: [facility] Discharge Plan Triage Chief Complaint: Dizziness ED Provider: Caprice Fermin Dx/Rx/DC Orders Prescriptions: No Action ticagrelor [Brilinta] 90 mg tablet 90 mg PO BID losartan 50 mg tablet 50 mg PO DAILY carvedilol 6.25 mg tablet 6.25 mg PO BID ropinirole 0.5 mg tablet 0.5 mg PO TID sertraline 25 mg tablet 25 mg PO DAILY buspirone 7.5 mg tablet 7.5 mg PO BID aspirin 81 mg tablet,chewable 1 tab PO DAILY Jardiance 10 mg tablet 10 mg PO DAILY insulin glargine [Lantus Solostar U-100 Insulin] 100 unit/mL (3 mL) insulin pen 26 unit subcut QPM HumaLOG KwikPen Insulin pen injector See Rx Instructions subcut 3XD Protocol: 4. Sliding Scale Insulin High-Med Dosing Condition: 150-199 mg/dl = 2 units Condition: 200-259 mg/dl = 4 units Condition: 260-324 mg/dl = 6 units Condition: 325-374 mg/dl = 8 units Condition: 375-409 mg/dl = 10 units Condition: 410-449 mg/dl = 11 units Condition: Greater than 449 call physician Protocol Text: Suggested for: - Patients on Total Daily Insulin Dose of 56-80 units - Patient who are known to be insulin resistant or septic HIGH MEDIUM DOSING ALGORITHM Rx Instructions: SLIDING SCALE subcutaneously 3 times daily; SLIDING SCALE REFER TO SLIDING SCALE meclizine 12.5 mg Tablet 12.5 mg PO TID PRN PRN (Reason: Dizziness) Qty: 20 0RF atorvastatin 40 mg tablet 80 mg PO DAILY 30 Days Qty: 60 0RF amlodipine 5 mg tablet 5 mg PO BID Qty: 60 11RF Primary Care Provider: Luz Mera Referrals: Luz Mera, [facility] [Primary Care Provider, [facility]] Print Language: Uzbek Disposition Disposition: Acute Care Hospital Discharge Location: [facility] Neurosurgery Discharge Date/Time: 08/05/25 21:07 NIHSS NIHSS 1a. Level of Consciousness: 0 - Alert; keenly responsive 1b. LOC Questions: 0 - Answers BOTH questions correctly 1c. LOC Commands: 0 - Performs BOTH tasks correctly 2. Best Gaze: 0 - Normal 3. Visual: 0 - No visual loss 4. Facial Palsy: 0 - Normal symmetrical movements 5a. Left Arm: 0 - No drift; arm holds 90 (or 45) degrees for full 10 seconds 5b. Right Arm: 1 - Drift; arm drifts downward but doesn’t hit the bed 6a. Left Le - No drift; leg holds 30-degree position for full 5 seconds 6b. Right Le - Drift; leg falls by the end of 5-seconds, but does not hit bed 7. Limb Ataxia: 0 - Absent 8. Sensory: 0 - Normal; no sensory loss 9. Best Language: 0 - No aphasia; normal 10. Dysarthria: 0 - Normal 11. Extinction and Inattention: 0 - No abnormality Total: 2 Stroke Questions Stroke Team Activated: Yes Reviewed Inclusion/Exclusion criteria: Yes IV Thrombolytic Administered: No
[2025-08-05 18:45] LABS: Hematocrit 47.7 % (37-47); Hemoglobin 15.8 g/dL (12.0-15.0); Immature Granulocytes Count 0.070 X10^3/uL (0.0-0.0); Mean Corp Hgb Conc 33.1 g/dL (32-36); Mean Corpuscular Volume 90.2 fL (81-99); Mean Platelet Vol. 11.8 fl (6.2-12.0); NRBC Flagged by Analyzer 0 % (0-5); Platelet Count 290 K/mm3 (150-450); RBC Distribution Width CV 13.4 % (11.6-14.6); RBC Distribution Width SD 44.6 fl (35.1-43.9); Red Blood Count 5.29 M/mm3 (4.2-5.4); White Blood Count 12.9 K/mm3 (4.4-11.0)
[2025-08-05 18:53] LABS: Anion Gap 14 (5-15); BUN 25 mg/dL (4-19); BUN/Creat Ratio 22.5 RATIO (10-20); Calcium,Total 10.1 mg/dL (7.6-11.0); Carbon Dioxide 23.1 mmol/L (21.0-32.0); Chloride 99 mmol/L (98-108); Estimated Creatinine Clearance 61.48 ml/min (50-250); Glucose 389 mg/dL (70-99); Potassium 4.1 mmol/L (3.3-5.1); Troponin T High Sensitivity 11 ng/L (<=14)
[2025-08-05 18:58] LABS: Prothrombin Time (Protime)PT. 12.9 SECONDS (11.7-14.9)
[2025-08-05 18:59] LABS: Partial Thromboplast Time 25.0 Seconds (24.1-36.2)
--- NOTE | 2025-08-05 20:16 | CM.ED ---
Social Work Reason for visit: Stroke Alert SW met with patient who denied any needs at this time, patient notified that SW would remain available. No further concerns at this time. Roselia Kelly, PROPOSAL ENGINEER, SYSTEMS ANALYSIS MANAGER
[2025-08-05] MEDS: TICAGRELOR 90 MG TABLET PO (20:59)
[2025-08-05 21:04] LABS: Troponin T High Sens 2 HR 9 ng/L (<=14)
--- NOTE | 2025-08-05 21:12 | ED.RN ---
report called to Barbara at [facility]
== END 2025-08-05 21:07 | disposition short-term general hospital (02) ==
PROVIDERS: Emergency Provider Student in an Organized Health Care Education/Training Program; PCP Nurse Practitioner Family; Visit Provider Student in an Organized Health Care Education/Training Program
DX: R42 Dizziness and giddiness (principal); I11.0 Hypertensive heart disease with heart failure; I50.9 Heart failure, unspecified; E11.9 Type 2 diabetes mellitus without complications; Z79.4 Long term (current) use of insulin; I25.2 Old myocardial infarction; I65.23 Occlusion and stenosis of bilateral carotid arteries; I70.8 Atherosclerosis of other arteries; I65.01 Occlusion and stenosis of right vertebral artery; R29.702 NIHSS score 2; E78.5 Hyperlipidemia, unspecified; I69.398 Other sequelae of cerebral infarction; Z79.899 Other long term (current) drug therapy; Z79.84 Long term (current) use of oral hypoglycemic drugs; Z79.82 Long term (current) use of aspirin; Z90.49 Acquired absence of other specified parts of digestive tract; F17.210 Nicotine dependence, cigarettes, uncomplicated
CPT/HCPCS: 70450; 70496; 70498; 80048; 82962; 84484; 85025; 85610; 85730; 93005; 99285; Q9967; A4216

== ENCOUNTER 2025-08-23 00:29 | Emergency (ER) | payer MEDICARE, MEDICAID, SELFPAY ==
[2025-08-23 00:30] VITALS: BP 139/76; PULSE 70; RESP 18; TEMP 36.6; O2SAT 96; BMI 38.5
--- NOTE | 2025-08-23 00:40 | RAD_ITS ---
PROCEDURE: ANKLE MIN 3 VIEWS 08/23/2025 REASON FOR EXAM: ANKLE INJURY TECHNIQUE: Procedure Code: RADANK Modality: DX Procedure: ANKLE MIN 3 VIEWS Laterality: Right COMPARISON: None. FINDINGS: Soft tissue edema and swelling. Well corticated bone fragment adjacent to the tip of the medial malleolus. Normal visualized distal tibia and medial malleolus. Normal visualized distal fibula and lateral malleolus. Normal tibiotalar articulation and ankle mortise. Normal visualized talus. Normal visualized calcaneus. The visualized subtalar, talonavicular, calcaneocuboid and tarsal articulations are normal. RAD/Ankle min 3 Views IMPRESSION: Soft tissue edema and swelling. Reading Location: [facility]
--- OUTSIDE RECORDS SUMMARY | 2025-08-23 01:12 | XMS RPT_ITS | CCD ---
Author Organization [facility] Care Team Providers Care Financial Report Service Sales Agent Name Role Phone Ricky Hendricks MD Primary Care Provider Samaria BLAIR - Luz LEI E Primary Care Provider Luz Mera Primary Care Provider [phone] NONE, PCP Referring Unavailable JASE ZAZUETA Admitting Unavailable LUZ MERA Primary Care Unavailable MAXIMO MAX Consulting Unavailable GUERO MONSON JR Attending Unavailable Samaria BLAIR - Luz LEI E Primary Care Provider Samaria BLAIR - Luz LEI E Primary Care Provider BAIRON BUCHANAN Primary Care Unavailable Samaria DRAY TRUCK DRIVER-CLuz E Primary Care Physician [phone] Donna KINGSTON, Dr. Green Attending Physician Dr. Peter Thompson DO Emergency Departmen t Physician Luz Mera Primary Care Unavailable Peter Thompson Attending Unavailabl e Care Physician, No Primary Primary Care Unava ilable Cricket Fuentes Referring Unavailable Cricket Fuentes Attending Unavailable Samaria, Luz E Primary Care Unavailable Maximo Wayne Attending Unavailable Mera, Luz E Primary Care Unavailable Manda Crouch Attending Unavailable Samaria, Luz E Primary Care Unavailable Guero Gomez Unavailable CONSULT, NEUROLOGY-STROKE ALERT Consulting Unavailable MANDA CROUCH Referring Unavailable YADIRA VALENCIA Attending Unavailable YADIRA VALENCIA Admitting Unavailable MAROUF, LOAI F Referring Unavailable MERA, LUZ E Primary Care Unavailable MAROUF, LOAI F Referring Unavailable MERA, LUZ E Primary Care Unavailable MAROUF, LOAI F Referring Unavailable MERA, LUZ E Primary Care Unavailable MAROUF, LOAI F Referring Unavailable MERA, LUZ E Primary Care Unavailable MAROUF, LOAI F Referring Unavailable MERA, LUZ E Primary Care Unavailable MERA, LUZ E Referring Unavailable MERA, LUZ E Primary Care Unavailable MAROUF, LOAI F Referring Unavailable MERA, LUZ E Primary Care Unavailable MAROUF, LOAI F Referring Unavailable MERA, LUZ E Primary Care Unavailable RAZACK, UNIQUE T Admitting Unavailable RAZACK, UNIQUE T Attending Unavailable MERA, LUZ E Primary Care Unavailable MAROUF, LOAI F Referring Unavailable MERA, LUZ E Primary Care Unavailable MAROUF, LOAI F Referring Unavailable MERA, LUZ E Primary Care Unavailable MAROUF, LOAI F Referring Unavailable MERA, LUZ E Primary Care Unavailable Medications Current Medications Medication Drug Class(es) [...] Active docusate sodium 50 mg / sennosides, long term 8.6 mg oral tablet (4 sources) Start: [...] complication, with long-term current use of insulin ([facility]) Take 1 tablet by mouth daily 90 [...] Active Start: 03-29-2024 10 mg, Oral, D ANUSHA, First dose on Mon03/29/24 at 1139, Until [...] qAM, # 30 tab(s), 3 Refill(s), Pharmacy: [facility], 160, cm, 08/10/21 11:46:00 EST, Height, [...] release tablet 5 mg polyethylene glycol [id number] [id number] mg powder for oral solution (6 sources) [...] frequent line interruptions/ long duration, Starting on 04/03/22 at 1054 For piggyback infusion, administer [...] needed 10 mL, IntraVENous, PRN, Starting on 04/03/22 at 1054, Until Discontinued, Line Care, [...] qDayM, # 30 tab(s), 3 Refill(s), Pharmacy: [facility], 160, cm, 08/10/21 11:46:00 EST, Height, kg, 08/10/21 11:46:00 EST, Dosing Weight Start Date: 08/13/21 Status: Ordered atorvastatin 40 mg oral tablet (20 sources) HMG-CoA Reductase Inhibitor Start: 07-18-2024 End: 07-20-2024 take 1 tablet by mouth once daily Atorvastatin 40 mg tablet Discontinued 40 mg PO DAILY July 18, 2024 12:00am July 20, 2024 11:20am Start: 04-02-2024 take 2 tablets by mo [facility] at bedtime atorvastatin (LIPITOR) 40 MG tablet [...] BIDM, # 60 tab(s), 3 Refill(s), Pharmacy: [facility], 160, cm, 08/10/21 11:46:00 EST, Height, [...] 500 mg PO TWICE A DAY 14 0 September 16, 2023 1:00am March 14, 2024 1:51pm cloNIDine hydrochloride 0.1 mg oral tablet (1 source) Central alpha-2 Adrenergic Agonist Start: 04-03-2022 End: 04-03-2022 cloNIDine (CATAPRES) tablet 0.2 mg Continuous Blood Gluc Geospatial Image Analyst (FREESTYLE LISET 14 DAY READER) WALKER (2 sources) Start: 04-13-2022 Continuous Blood Gluc Geospatial Image Analyst (FREESTYLE LISET 14 DAY READER) WALKER Indications: Uncontrolled type 2 diabetes mellitus with hyperglycemia (HCC) 1 actuation by Does not apply route 4 times daily (before meals and nightly) 1 each 0 04/13/2022 Suspended Start: 04-13-2022 Continuous Blo od Gluc Geospatial Image Analyst (FREESTYLE LISET 14 DAY READER) WALKER Indications: Uncontrolled type 2 diabetes mellitus with hyperglycemia (HCC) 1 actuation by Does not apply route 4 times daily (before meals and nightly) 1 each 0 04/13/2022 Active Continuous Blood Gluc Sensor (FREESTYLE LISET 14 DAY SENSOR) MISC (2 sources) Start: 03-14-2023 Continuous Blo od Gluc Sensor (FREESTYLE LISET 14 DAY SENSOR) [facility] Indications: Uncontrolled type 2 diabetes mellitus with hyperglycemia (HCC) APPLY 1 SENSOR TO BACK OF UPPER ARM. REMOVE AND REPLACE EVERY 14 DAYS. USE WITH DEVICE TO MONITOR BLOOD SUGAR 2 each 10 03/14/2023 Suspended Start: 04-13-2022 Continuous Blo od Gluc Sensor (FREESTYLE LISET 14 DAY SENSOR) [facility] Indications: Uncontrolled type 2 diabetes mellitus with hyperglycemia (HCC) Inject 1 actuation into the skin 4 times daily (before meals and nightly) 6 each 3 04/13/2022 Active Continuous Glucose Geospatial Image Analyst (DEXCOM G7 STONE LATHE OPERATOR) WALKER (4 sources) Start: 02-20-2025 Continuous Glu cose Geospatial Image Analyst (DEXCOM G7 STONE LATHE OPERATOR) WALKER Indications: Uncontrolled type 2 diabetes mellitus with hyperglycemia (HCC) , Type 2 diabetes mellitus with other circulatory complication, with long-term current use of insulin (HCC) 1 Device by Does not apply route daily 1 each 02/20/2025 Suspended Start: 02-20-2025 Continuous Glu cose Geospatial Image Analyst (DEXCOM G7 STONE LATHE OPERATOR) WALKER Indications: Uncontrolled type 2 diabetes mellitus with hyperglycemia (HCC) , Type 2 diabetes mellitus with other circulatory complication, with long-term current use of insulin (HCC) 1 Device by Does not apply route daily 1 each 02/20/2025 Active Continuous Glucose Geospatial Image Analyst (FREESTYLE LISET 2 READER) WALKER (10 sources) Start: 12-12-2024 Continuous Glu cose Geospatial Image Analyst (FREESTYLE LISET 2 READER) WALKER Indications: Uncontrolled type 2 diabetes mellitus with hyperglycemia (HCC) USE DIRECTED FOUR TIMES DAILY BEFORE MEALS and NIGHTLY 1 each 12/12/2024 Suspended Start: 12-12-2024 Continuous Glu cose Geospatial Image Analyst (FREESTYLE LISET 2 READER) WALKER Indications: Uncontrolled type 2 diabetes mellitus with hyperglycemia (HCC) USE DIRECTED FOUR TIMES DAILY BEFORE MEALS and NIGHTLY 1 each 12/12/2024 Active Start: 09-15-2024 Continuous Glu cose Geospatial Image Analyst (FREESTYLE LISET 2 READER) WALKER Indications: Uncontrolled type 2 diabetes mellitus with hyperglycemia (HCC) USE DIRECTED FOUR TIMES DAILY BEFORE MEALS and NIGHTLY 1 each 09/15/2024 Active Start: 05-20-2024 Continuous Glu cose Geospatial Image Analyst (FREESTYLE LISET 2 READER) WALKER Indications: Uncontrolled type 2 diabetes mellitus with hyperglycemia (HCC) USE DIRECTED FOUR TIMES DAILY BEFORE MEALS and NIGHTLY 1 each 05/20/2024 Active Continuous Glucose Sensor (DEXCOM G7 SENSOR) [facility] (4 sources) Start: 02-20-2025 Continuous Glu cose Sensor (DEXCOM G7 SENSOR) [facility] Indications: Uncontrolled type 2 diabetes mellitus with hyperglycemia (HCC) , Type 2 diabetes mellitus with other circulatory complication, with long-term current use of insulin (HCC) 1 Device by Does not apply route every 10 days 3 each 5 02/20/2025 Suspended Start: 02-20-2025 Continuous Glu cose Sensor (DEXCOM G7 SENSOR) [facility] Indications: Uncontrolled type 2 diabetes mellitus with hyperglycemia (HCC) , Type 2 diabetes mellitus with other circulatory complication, with long-term current use of insulin (HCC) 1 Device by Does not apply route every 10 days 3 each 5 02/20/2025 Active Continuous Glucose Sensor (FREESTYLE LISET 2 SENSOR) MIS (10 sources) Start: 12-12-2024 Continuous Glu cose Sensor (FREESTYLE LISET 2 SENSOR) [facility] Indications: Uncontrolled type 2 diabetes mellitus with hyperglycemia (HCC) APPLY 1 SENSOR TO BACK OF UPPER ARM. REMOVE AND REPLACE EVERY 14 DAYS. USE WITH DEVICE TO MONITOR BLOOD SUGAR 2 each 12/12/2024 Suspended Start: 12-12-2024 Continuous Glu cose Sensor (FREESTYLE LISET 2 SENSOR) [facility] Indications: Uncontrolled type 2 diabetes mellitus with hyperglycemia (HCC) APPLY 1 SENSOR TO BACK OF UPPER ARM. REMOVE AND REPLACE EVERY 14 DAYS. USE WITH DEVICE TO MONITOR BLOOD SUGAR 2 each 10 12/12/2024 Active Start: 09-15-2024 Continuous Glu cose Sensor (FREESTYLE LISET 2 SENSOR) MIS Indications: Uncontrolled type 2 diabetes mellitus with hyperglycemia (HCC) APPLY 1 SENSOR TO BACK OF UPPER ARM. REMOVE AND REPLACE EVERY 14 DAYS. USE WITH DEVICE TO MONITOR BLOOD SUGAR 2 each 09/15/2024 Active Start: 05-20-2024 Continuous Glu cose Sensor (FREESTYLE LISET 2 SENSOR) [facility] Indications: Uncontrolled type 2 diabetes mellitus with hyperglycemia (HCC) APPLY 1 SENSOR TO BACK OF UPPER ARM. REMOVE AND REPLACE EVERY 14 DAYS. USE WITH DEVICE TO MONITOR BLOOD SUGAR 2 each 05/20/2024 Active 1 ml dexamethasone phosphate 10 [...] qDay, # 30 tab(s), 3 Refill(s), Pharmacy: [facility], 160, cm, 08/10/21 11:46:00 EST, Height, [...] complication, with long-term current use of insulin ([facility]) 1 kit by Does not apply route daily 1 kit 02/20/2025 Suspended Start: 02-20-2025 glucose monito ring kit Indications: Uncontrolled type 2 diabetes mellitus with hyperglycemia ([facility]) , Type 2 diabetes mellitus with other circulatory complication, with long-term current use of insulin ([facility]) 1 kit by Does not apply route [...] at 1230, Until Discontinued Give prior to Wqqehgysu-Kxfkv-Huafed only when tray is in room and [...] 1 tablet by honey th once daily losartan (COZAAR) 100 MG tablet Indications: Hypertension, unspecified type Take 1 tablet by mouth daily 90 tablet 1 11/28/2022 Active Start: 04-04-2022 losartan (COZA AR) tablet 100 mg Start: 08-13-2021 End: 12-11-2021 losartan 100 mg oral tablet Dose : 100 mg = 1 tab(s), Oral, qDay, # 30 tab(s), 3 Refill(s), Pharmacy: [facility], 160, cm, 08/10/21 11:46:00 EST, Height, [...] qDayM, # 30 tab(s), 3 Refill(s), Pharmacy: [facility], 160, cm, 08/10/21 11:46:00 EST, Height, kg, 08/10/21 11:46:00 EST, Dosing Weight Start Date: 08/13/21 Stop Date: 12/11/21 Status: Ordered sulfamethoxazole 800 mg / trimethoprim 160 mg oral tablet (6 sources) Dihydrofolate Reductase Inhibitor Antibacterial, Sulfonamide Antimicrobial Start: 09-14-2023 End: 07-18-2024 Sulfamethoxazole-Trimethopri m (Bactrim Ds) 800-160 mg tablet Discontinued 1 {tbl} PO TWICE A DAY 14 7 0 September 14, 2023 1:00am July 18, 2024 9:24pm Start: 09-08-2013 End: 10-10-2013 Sulfamethoxazole-Trimethopri m 1 TABLET tablet Discontinued 2 {tbl} PO TWICE A DAY 28 0 September 08, 2013 10:08am October 10, 2013 [...] (1-3), Starting on 03/16/24 at 1923, Give VA if unable to administer by mouth or [...] to respiratory syncytial virus] 11-10-2024 Episodic Acute cerebrovascular disease (20 sources) Lacunar infarction; 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] Onset: 03-18-2024 Resolved: 06-04-2025 03-18-2024 Chronic Acute myocardial infarction (9 sources) Myocardial infarction; [...] source) Long-term current use of anticoagulant; Translations: [cocoa bean cleaner (current) use of anticoagulants] 08-16-2024 Episodic Other circulatory disease (2 sources) Presence of other cardiac implants and grafts; Translations: [Presence of other cardiac implants and grafts] Onset: 03-18-2025 Chronic Other gastrointestinal disorders (1 source) Constipation, [...] Problem Classification Problem Date Documented Date Episodic/Chronic Blindness and vision defects (13 sources) Balint [...] Test Name Value Interpretation Reference Range Facility CBC,PLATELETSon 08-07-2025 Hematocrit (Bld) [Volume fraction] 44.4 % High 34.9-44.3 [facility] Comment on above: Performed By: #### L GABRIEL JOHNSTON, HFP #### [facility] (DEFAULT) [address] [address] Hemoglobin (Bld) [Mass/Vol] 14.6 g/dL Normal 11.4-15.2 [facility] Comment on above: Performed By: #### L GABRIEL JOHNSTON, HFP #### [facility] (DEFAULT) [address] [address] MCV (RBC) [Entitic vol] 90.1 fL Normal 79.6-97.7 [facility] Comment on above: Performed By: #### GABRIEL CAMARGO, HFP #### [facility] (DEFAULT) [address] [address] Mean Cell Hgb 29.6 pg Normal 25.9-33.9 [facility] Comment on above: Performed By: #### GABRIEL CAMARGO, HFP #### [facility] (DEFAULT) [address] [address] Mean Cell Hgb Conc 32.9 g/dL Normal 31.4-35.9 [facility] Comment on above: Performed By: #### L ABOH1, GutierrezED, HFP #### [facility] (DEFAULT) [address] [place] [address] Platelet mean volume (Bld) [Entitic vol] 11.7 fL Normal 8.5-12.2 [facility] Comment on above: Performed By: #### L ABGutierrez BURGOSED, HFP #### [facility] (DEFAULT) [address] [place] [address] Platelets (Bld) [#/Vol] 240 10*3/uL Normal 150-393 [facility] Comment on above: Performed By: #### L ABOH1GutierrezED, HFP #### [facility] (DEFAULT) [address] [place] [address] RBC (Bld) [#/Vol] 4.93 10*6/uL Normal 3.91-5.04 [facility] Comment on above: Performed By: #### L ABRADHATI1GutierrezED, HFP #### [facility] (DEFAULT) [address] [place] [address] RBC Distribution 13.8 % Normal 10.8-14.9 [facility] Comment on above: Performed By: #### L ABHSTI1GutierrezED, HFP #### [facility] (DEFAULT) [address] [place] [address] WBC (Bld) [#/Vol] 13.30 10*3/uL High 3.99-11.19 [facility] Comment on above: Performed By: #### L ABRADHATI1GutierrezED, HFP #### [facility] (DEFAULT) [address] [address] CHEM 7 (LYTES,BUN,CREA,GLUC) on 08-07-2025 Anion gap [Moles/Vol] 14 mmol/L Normal 7-17 [facility] Comment on above: Performed By: #### C HM7 #### [facility] (DEFAULT) [address] [place] [address] Chloride [Moles/Vol] 106 mmol/L Normal 98-108 [facility] Comment on above: Performed By: #### Amanda HM7 #### [facility] (DEFAULT) [address] [place] [address] CO2 [Moles/Vol] 21 mmol/L Normal 21-31 [facility] Comment on above: Performed By: #### C HM7 #### [facility] (DEFAULT) [address] [place] [address] Creatinine [Mass/Vol] 1.17 mg/dL Normal 0.50-1.20 [facility] Comment on above: Performed By: #### Amanda HM7 #### [facility] (DEFAULT) [address] [place] [address] GFR/1.73 sq M.predicted among non-blacks MDRD (S/P/Bld) [Vol rate/Area] 56 mL/min/{1.73_m2} Low >=60 [facility] Comment on above: Result Comment: Repo rted eGFR is based on the CKD-EPI 2020 equation using creatinine, age, and sex. Performed By: #### Amanda HM7 #### [facility] (DEFAULT) [address] [place] [address] Glucose [Mass/Vol] 186 mg/dL High Nonfastin -179 mg/dL; Fastin-99 [facility] Comment on above: Performed By: #### C HM7 #### [facility] (DEFAULT) [address] [place] [address] Osmolality [Osmolality] 298 mosm/kg Normal 278-305 [facility] Comment on above: Performed By: #### Amanda HM7 #### [facility] (DEFAULT) [address] [place] [address] Potassium [Moles/Vol] 4.1 mmol/L Normal 3.5-5.0 [facility] Comment on above: Performed By: #### C HM7 #### [facility] (DEFAULT) [address] [place] [address] Sodium [Moles/Vol] 137 mmol/L Normal 135-145 [facility] Comment on above: Performed By: #### C HM7 #### [facility] (DEFAULT) [address] [place] [address] Urea nitrogen [Mass/Vol] 28 mg/dL High 7-25 [facility] Comment on above: Performed By: #### C HM7 #### [facility] (DEFAULT) [address] [place] [address] Urea nitrogen/Creatinine [Mass ratio] 24 mg/mg Normal [facility] Comment on above: Performed By: #### C HM7 #### [facility] (DEFAULT) [address] [place] [address] CBC,PLATELETSon 08-06-2025 Hematocrit (Bld) [Volume fraction] 45.6 % High 34.9-44.3 [facility] Comment on above: Performed By: #### GABRIEL CAMARGO, HFP #### [facility] (DEFAULT) [address] [place] [address] Hemoglobin (Bld) [Mass/Vol] 15.1 g/dL Normal 11.4-15.2 [facility] Comment on above: Performed By: #### GABRIEL CAMARGO, HFP #### [facility] (DEFAULT) [address] [place] [address] MCV (RBC) [Entitic vol] 90.1 fL Normal 79.6-97.7 [facility] Comment on above: Performed By: #### GABRIEL CAMARGO, HFP #### [facility] (DEFAULT) [address] [place] [address] Mean Cell Hgb 29.8 pg Normal 25.9-33.9 [facility] Comment on above: Performed By: #### GABRIEL CAMARGO, HFP #### [facility] (DEFAULT) [address] [place] [address] Mean Cell Hgb Conc 33.1 g/dL Normal 31.4-35.9 [facility] Comment on above: Performed By: #### L PRESTON, C7ED, HFP #### [facility] (DEFAULT) [address] [place] [address] Platelet mean volume (Bld) [Entitic vol] 11.6 fL Normal 8.5-12.2 [facility] Comment on above: Performed By: #### L Gutierrez JOHNSTONED, HFP #### [facility] (DEFAULT) [address] [place] [address] Platelets (Bld) [#/Vol] 252 10*3/uL Normal 150-393 [facility] Comment on above: Performed By: #### Gutierrez CAMARGOED, HFP #### [facility] (DEFAULT) [address] [place] [address] RBC (Bld) [#/Vol] 5.06 10*6/uL High 3.91-5.04 [facility] Comment on above: Performed By: #### L Gutierrez JOHNSTONED, HFP #### [facility] (DEFAULT) [address] [place] [address] RBC Distribution 13.8 % Normal 10.8-14.9 [facility] Comment on above: Performed By: #### L Gutierrez JOHNSTONED, HFP #### [facility] (DEFAULT) [address] [place] [address] WBC (Bld) [#/Vol] 14.08 10*3/uL High 3.99-11.19 [facility] Comment on above: Performed By: #### L LIZZY1, C7ED, HFP #### [facility] (DEFAULT) [address] [place] [address] CHEM 7 (LYTES,BUN,CREA,GLUC) on 08-06-2025 Anion gap [Moles/Vol] 17 mmol/L Normal 7-17 [facility] Comment on above: Performed By: #### GABRIEL CAMARGO, HFP #### [facility] (DEFAULT) [address] [place] [address] Chloride [Moles/Vol] 107 mmol/L Normal 98-108 [facility] Comment on above: Performed By: #### Gutierrez CAMARGOED, HFP #### [facility] (DEFAULT) [address] [place] [address] CO2 [Moles/Vol] 19 mmol/L Low 21-31 [facility] Comment on above: Performed By: #### GABRIEL CAMARGO, HFP #### [facility] (DEFAULT) [address] [place] [address] Creatinine [Mass/Vol] 1.06 mg/dL Normal 0.50-1.20 [facility] Comment on above: Performed By: #### GABRIEL CAMARGO, HFP #### [facility] (DEFAULT) [address] [place] [address] GFR/1.73 sq M.predicted among non-blacks MDRD (S/P/Bld) [Vol rate/Area] 63 mL/min/{1.73_m2} Normal >=60 [facility] Comment on above: Result Comment: Repo rted eGFR is based on the CKD-EPI 2020 equation using creatinine, age, and sex. Performed By: #### GABRIEL CAMARGO, HFP #### [facility] (DEFAULT) [address] [place] [address] Glucose [Mass/Vol] 226 mg/dL High Nonfastin -179 mg/dL; Fastin-99 [facility] Comment on above: Performed By: #### GABRIEL CAMARGO, HFP #### [facility] (DEFAULT) [address] [place] [address] Osmolality [Osmolality] 305 mosm/kg Normal 278-305 [facility] Comment on above: Performed By: #### GABRIEL CAMARGO, HFP #### [facility] (DEFAULT) [address] [place] [address] Potassium [Moles/Vol] 4.2 mmol/L Normal 3.5-5.0 [facility] Comment on above: Performed By: #### GABRIEL CAMARGO, HFP #### [facility] (DEFAULT) [address] [place] [address] Sodium [Moles/Vol] 139 mmol/L Normal 135-145 [facility] Comment on above: Performed By: #### GABRIEL CAMARGO, HFP #### [facility] (DEFAULT) [address] [place] [address] Urea nitrogen [Mass/Vol] 28 mg/dL High 7-25 [facility] Comment on above: Performed By: #### GABRIEL CAMARGO, HFP #### [facility] (DEFAULT) [address] [place] [address] Urea nitrogen/Creatinine [Mass ratio] 26 mg/mg Normal [facility] Comment on above: Performed By: #### GABRIEL CAMARGO, HFP #### [facility] (DEFAULT) [address] [place] [address] HEMOGLOBIN A1Con 08-06-2025 Glucose [Mass/Vol] 246 mg/dL Normal [facility] Comment on above: Performed By: #### A 1CB #### [facility] (DEFAULT) [address] [place] [address] Hemoglobin A1C HPLC 10.2 % High 4.7-5.6 [facility] Comment on above: Performed By: #### A 1CB #### [facility] (DEFAULT) [address] [place] [address] HEPATIC FUNCTION PANELon Albumin [Mass/Vol] 4.1 g/dL Normal 3.5-5.0 [facility] Comment on above: Performed By: #### H ASAEL FELIX CHM7 #### [facility] (DEFAULT) [address] [place] [address] ALP [Catalytic activity/Vol] 117 U/L Normal 32-126 [facility] Comment on above: Performed By: #### ASAEL RICHARDSON CHM7 #### [facility] (DEFAULT) [address] [place] [address] ALT [Catalytic activity/Vol] 11 U/L Normal 9-48 [facility] Comment on above: Performed By: #### ASAEL RICHARDSON CHM7 #### [facility] (DEFAULT) [address] [place] [address]7521 AST [Catalytic activity/Vol] 15 U/L Normal 10-39 [facility] Comment on above: Performed By: #### ASAEL RICHARDSON CHM7 #### [facility] (DEFAULT) [address] [place] [address] 25497 Bilirubin [Mass/Vol] 0.4 mg/dL Normal <1.5 [facility] Comment on above: Performed By: #### ASAEL RICHARDSON, CHM7 #### [facility] (DEFAULT) [address] [place] [address] 70414 Bilirubin.indirect [Mass/Vol] 0.1 mg/dL Normal <0.3 [facility] Comment on above: Performed By: #### H ASAEL FELIX, CHM7 #### [facility] (DEFAULT) [address] [place] [address] 80011 Protein [Mass/Vol] 7.8 g/dL Normal 6.4-8.3 [facility] Comment on above: Performed By: #### H ISIDRO, LIP, CHM7 #### [facility] (DEFAULT) [address] [place] [address] 94607 HIGH SENSITIVITY TROPONIN I - SINGLE ORDERon 08-06-2025 hs-Troponin I 35 ng/L High <34 [facility] Comment on above: Order Comment: Acute Coronary Syndrome (ACS): Initial Evaluation and Management:[email or web address] Performed By: #### L ABHSTI1, C7ED, HFP #### [facility] (DEFAULT) [address] [place] [address] 11561 LIPID PANEL WITH REFLEX TO M BRUCE LDLon 08-06-2025 Calculated LDL Cholesterol 64 mg/dL Normal 0-99 [facility] Comment on above: Result Comment: [<10 0 mg/dL: Optimal] [100-129 mg/dL: Near Optimal] [130-159 mg/dL: Borderline High] [160-189 mg/dL: High] [>189 mg/dL: Very High] Performed By: #### H FP, LIPDR, CHM7 #### [facility] (DEFAULT) [address] [place] [address] 58240 Cholesterol [Mass/Vol] 166 mg/dL Normal <200 [facility] Comment on above: Result Comment: [<20 0 mg/dL: Desirable] [200-239 mg/dL: Borderline High] [>239 mg/dL: High] Performed By: #### H FP, LIPDR, CHM7 #### [facility] (DEFAULT) [address] [place] [address] 24977 Cholesterol in HDL [Mass/Vol] 39 mg/dL Low >=40 [facility] Comment on above: Result Comment: [<40 mg/dL: Low (High Risk)] [>59 mg/dL: High (Low Risk)] Performed By: #### H FP, LIPDR, CHM7 #### [facility] (DEFAULT) [address] [place] [address] 81725 Non HDL Cholesterol 127 mg/dL Normal <130 [facility] Comment on above: Performed By: #### H FP, LIPDR, CHM7 #### [facility] (DEFAULT) [address] [place] [address] 69984 Total Cholesterol/HDL Ratio 4.3 Normal <4.5 [facility] Comment on above: Performed By: #### H ASAEL FELIX CHM7 #### [facility] (DEFAULT) [address] [place] [address] Triglyceride [Mass/Vol] 317 mg/dL High <150 [facility] Comment on above: Result Comment: [<15 0 mg/dL: Desirable] [150-199 mg/dL: Borderline] [200-499 mg/dL: High] [>500 mg/dL: Very High] Performed By: #### H ASAEL FELIX CHM7 #### [facility] (DEFAULT) [address] [place] [address] 13854 MAGNESIUMon 08-06-2025 Magnesium [Mass/Vol] 1.8 mg/dL Normal 1.6-2.6 [facility] Comment on above: Performed By: #### L ABHSTI1, C7ED, HFP #### [facility] (DEFAULT) [address] [place] [address] 94881 MRI BRAIN STROKE WITHOUT CON TRASTon 08-06-2025 MRI BRAIN STROKE WITHOUT CONTRAST EXAM: MRI BRAIN STROKE WITHOUT CONTRAST, 08/06/2025 17:44 PM COMPARISON: No prior studies available for comparison. CLINICAL INDICATIONS: 54 years Female RSW and R gaze deviation RELEVANT CLINICAL HISTORY: TECHNIQUE: Multisequence, multiplanar MRI of the brain was performed without intravenous contrast. A standard protocol was utilized. FINDINGS: Multiple small acute infarcts throughout the left paramedian bhavani. No definite hemorrhagic conversion. 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 Remote lacunar infarct of the left centrum semiovale/carrizales radiata. Small remote lacunar infarcts of the right centrum semiovale. Small remote right greater than left cerebellar infarcts. No significant mass effect or midline shift. Irregular flow void within the right vertebral artery V4 segment may be related to prominent atherosclerosis. A few scattered foci of susceptibility scattered within the bhavani which do not correlate with the regions of infarct, also involving the thalami, left cingulate gyrus, and right paramedian periatrial white matter. Moderate scattered T2 hyperintensities of the cerebral white matter, nonspecific, most commonly reflecting chronic microvascular ischemic change. No abnormal extra-axial fluid collection. No hydrocephalus. No major extracranial findings are seen. IMPRESSION: Acute infarcts involving the left paramedian bhavani and the left occipital lobe along the periatrial white matter. 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 No definite hemorrhagic conversion. No significant mass effect. I, Kindra Johnston MD have discussed the above critical finding/s with YADIRA VALENCIA on 08/06/2025 6:18 PM. Normal [facility] 12 Lead EKGon 08-05-2025 12 Lead [address] [facility] Cardiovascular Services [address] [place] [address] 12 Lead EKG 08/05/25 1911 MR#: [id number] Acct: [id number] Name: NEIL WELLINGTON Rep #: [id number] : 1970 54 From: Ricky Wagoner MD Attending Dr: Status: DEP ER Ordering Dr: Manda Crouch MD Date: 08/05/25 Location: ED Sex: F C Admitted: Test Reason : DYSRHYTHMIA Blood Pressure : */* mmHG Vent. Rate : 69 BPM Atrial Rate : 69 BPM P-R Int : 134 ms QRS Dur : 92 ms QT Int : 426 ms P-R-T Axes : -10 -7 98 degrees QTcB Int : 456 ms Normal sinus rhythm T wave abnormality, consider lateral ischemia Abnormal ECG Confirmed by Ricky Wagoner ([id number]), website/blog editor TAN CAPONE ([id number]) on 08/06/2025 10:41:55 AM Referred By: Confirmed By: Ricky Wagoner 08/06/25 1041 Date Ricky Wagoner MD CC: REBECCA Mera; Dr. Manda Crouch MD Signed Normal [facility] Basic Metabolic Profile (BMP )on 08-05-2025 BUN/CRE 22.5 RATIO High 10-20 [facility] Comment on above: Performed By: #### L 300.4310, L100.0100, L500.2500, L300.3900, L501.4021 #### [facility] [address] [place], [address] Calcium [Mass/Vol] 10.1 mg/dL Normal 7.6-11.0 [facility] Comment on above: Performed By: #### L 300.4310, L100.0100, L500.2500, L300.3900, L501.4021 #### [facility] [address] [place], [address] Chloride [Moles/Vol] 99 mmol/L Normal 98-108 [facility] Comment on above: Performed By: #### L 300.4310, L100.0100, L500.2500, L300.3900, L501.4021 #### [facility] [address] [place], [address] CO2 [Moles/Vol] 23.1 mmol/L Normal 21.0-32.0 [facility] Comment on above: Performed By: #### L 300.4310, L100.0100, L500.2500, L300.3900, L501.4021 #### [facility] [address] [place], [address] Creatinine [Mass/Vol] 1.11 mg/dL Normal 0.70-1.20 [facility] Comment on above: Performed By: #### L 300.4310, L100.0100, L500.2500, L300.3900, L501.4021 #### [facility] [address] [place], [address] ECRCL 61.48 ml/min Normal 50-250 [facility] Comment on above: Performed By: #### L 300.4310, L100.0100, L500.2500, L300.3900, L501.4021 #### [facility] [address] [place], [address] GAP 14 Normal 5-15 [facility] Comment on above: Performed By: #### L 300.4310, L100.0100, L500.2500, L300.3900, L501.4021 #### [facility] [address] [place], [address] GFR/1.73 sq M.predicted among non-blacks MDRD (S/P/Bld) [Vol rate/Area] 59 mL/min/{1.73_m2} Low >60 [facility] Comment on above: Result Comment: mL/m in/1.73m2 CKD-EPI Creatinine Equation (2020) Performed By: #### L 300.4310, L100.0100, L500.2500, L300.3900, L501.4021 #### [facility] [address] [place], [address] Glucose [Mass/Vol] 389 mg/dL High 70-99 [facility] Comment on above: Performed By: #### L 300.4310, L100.0100, L500.2500, L300.3900, L501.4021 #### [facility] [address] [place], [address] Potassium [Moles/Vol] 4.1 mmol/L Normal 3.3-5.1 [facility] Comment on above: Performed By: #### L 300.4310, L100.0100, L500.2500, L300.3900, L501.4021 #### [facility] [address] [place], [address] Sodium [Moles/Vol] 136 mmol/L Normal 133-145 [facility] Comment on above: Performed By: #### L 300.4310, L100.0100, L500.2500, L300.3900, L501.4021 #### [facility] [address] [place], [address] Urea nitrogen [Mass/Vol] 25 mg/dL High 4-19 [facility] Comment on above: Performed By: #### L 300.4310, L100.0100, L500.2500, L300.3900, L501.4021 #### [facility] [address] [place], [address] Bedside Glucoseon 08-05-2025 FINGERSTICK GLU 343 mg/dL High 74-106 [facility] Comment on above: Result Comment: DENISE CARRINGTON OF PATIENT CARE PER NURSING PROTOCOL Performed By: #### L 500.4050, L100.0100 #### [facility] [address] [place], [address] CBC AND ELECTRONIC DIFFon Hematocrit (Bld) [Volume fraction] 49.2 % High 34.9-44.3 [facility] Comment on above: Performed By: #### L AB980 #### [facility] (DEFAULT) [address] [address] Hemoglobin (Bld) [Mass/Vol] 16.4 g/dL High 11.4-15.2 [facility] Comment on above: Performed By: #### L AB980 #### [facility] (DEFAULT) [address] [address] MCV (RBC) [Entitic vol] 89.6 fL Normal 79.6-97.7 [facility] Comment on above: Performed By: #### L AB980 #### [facility] (DEFAULT) [address] [place] [address] 00238 Mean Cell Hgb 29.9 pg Normal 25.9-33.9 [facility] Comment on above: Performed By: #### L AB980 #### [facility] (DEFAULT) [address] [place] [address] 72763 Mean Cell Hgb Conc 33.3 g/dL Normal 31.4-35.9 [facility] Comment on above: Performed By: #### L AB980 #### [facility] (DEFAULT) [address] [place] [address] 14307 Platelet mean volume (Bld) [Entitic vol] 11.8 fL Normal 8.5-12.2 [facility] Comment on above: Performed By: #### L AB980 #### [facility] (DEFAULT) [address] [place] [address] 27282 Platelets (Bld) [#/Vol] 288 10*3/uL Normal 150-393 [facility] Comment on above: Performed By: #### L AB980 #### [facility] (DEFAULT) [address] [place] [address] 77805 RBC (Bld) [#/Vol] 5.49 10*6/uL High 3.91-5.04 [facility] Comment on above: Performed By: #### L AB980 #### [facility] (DEFAULT) [address] [place] [address] 96338 RBC Distribution 13.5 % Normal 10.8-14.9 [facility] Comment on above: Performed By: #### L AB980 #### [facility] (DEFAULT) [address] [place] [address] 85769 WBC (Bld) [#/Vol] 13.32 10*3/uL High 3.99-11.19 [facility] Comment on above: Performed By: #### L AB980 #### [facility] (DEFAULT) [address] [place] [address] 77247 CBC W/Diff, Automatedon 07-26 Absolute Lymph 3.78 X10 3/uL Normal 0.83-4.51 [facility] Comment on above: Performed By: #### L 300.4310, L100.0100, L500.2500, L300.3900, L501.4021 #### [facility] [address] [place], [address] Absolute Neut 7.6 X10 3/uL Normal 2.0-7.7 [facility] Comment on above: Performed By: #### L 300.4310, L100.0100, L500.2500, L300.3900, L501.4021 #### [facility] [address] [place], [address] Basophils/100 WBC (Bld) 0.9 % Normal 0-1 [facility] Comment on above: Performed By: #### L 300.4310, L100.0100, L500.2500, L300.3900, L501.4021 #### [facility] [address] [place], [address] Eosinophils/100 WBC (Bld) 2.4 % Normal 0-5 [facility] Comment on above: Performed By: #### L 300.4310, L100.0100, L500.2500, L300.3900, L501.4021 #### [facility] [address] [place], [address] Erythrocyte distribution width (RBC) [Ratio] 13.4 % Normal 11.6-14.6 [facility] Comment on above: Performed By: #### L 300.4310, L100.0100, L500.2500, L300.3900, L501.4021 #### [facility] [address] [place], [address] Hematocrit (Bld) [Volume fraction] 47.7 % High 37-47 [facility] Comment on above: Performed By: #### L 300.4310, L100.0100, L500.2500, L300.3900, L501.4021 #### [facility] [address] [place], [address] Hemoglobin (Bld) [Mass/Vol] 15.8 g/dL High 12.0-15.0 [facility] Comment on above: Performed By: #### L 300.4310, L100.0100, L500.2500, L300.3900, L501.4021 #### [facility] [address] [place], [address] IG% 0.500 Normal 0.0-0.9 [facility] Comment on above: Result Comment: IG% - Immature Granulocytes (promyelocytes, myelocytes and metamyelocytes) > 1% indicates that a LEFT SHIFT is Present. Performed By: #### L 300.4310, L100.0100, L500.2500, L300.3900, L501.4021 #### [facility] [address] [place], [address] Lymphocytes/100 WBC (Bld) 29.3 % Normal 19-41 [facility] Comment on above: Performed By: #### L 300.4310, L100.0100, L500.2500, L300.3900, L501.4021 #### [facility] [address] [place], [address] MCH (RBC) [Entitic mass] 29.9 pg Normal 27.0-32.0 [facility] Comment on above: Performed By: #### L 300.4310, L100.0100, L500.2500, L300.3900, L501.4021 #### [facility] [address] [place], [address] MCHC (RBC) [Mass/Vol] 33.1 g/dL Normal 32-36 [facility] Comment on above: Performed By: #### L 300.4310, L100.0100, L500.2500, L300.3900, L501.4021 #### [facility] [address] [place], [address] MCV (RBC) [Entitic vol] 90.2 fL Normal 81-99 [facility] Comment on above: Performed By: #### L 300.4310, L100.0100, L500.2500, L300.3900, L501.4021 #### [facility] [address] [place], [address] Monocytes/100 WBC (Bld) 7.7 % Normal 0-10 [facility] Comment on above: Performed By: #### L 300.4310, L100.0100, L500.2500, L300.3900, L501.4021 #### [facility] [address] [place], [address] Neutrophils/100 WBC (Bld) 59.2 % Normal 47-70 [facility] Comment on above: Performed By: #### L 300.4310, L100.0100, L500.2500, L300.3900, L501.4021 #### [facility] [address] [place], [address] Nucleated RBC (Bld) [#/Vol] 0 10*3/uL Normal 0-5 [facility] Comment on above: Performed By: #### L 300.4310, L100.0100, L500.2500, L300.3900, L501.4021 #### [facility] [address] [place], [address] Platelet mean volume (Bld) [Entitic vol] 11.8 fL Normal 6.2-12.0 [facility] Comment on above: Performed By: #### L 300.4310, L100.0100, L500.2500, L300.3900, L501.4021 #### [facility] [address] [place], [address] Platelets (Bld) [#/Vol] 290 10*3/uL Normal 150-450 [facility] Comment on above: Performed By: #### L 300.4310, L100.0100, L500.2500, L300.3900, L501.4021 #### [facility] [address] [place], [address] RBC (Bld) [#/Vol] 5.29 10*6/uL Normal 4.2-5.4 [facility] Comment on above: Performed By: #### L 300.4310, L100.0100, L500.2500, L300.3900, L501.4021 #### [facility] [address] [place], [address] RDW SD 44.6 fl High 35.1-43.9 [facility] Comment on above: Performed By: #### L 300.4310, L100.0100, L500.2500, L300.3900, L501.4021 #### [facility] [address] [place], [address] WBC (Bld) [#/Vol] 12.9 10*3/uL High 4.4-11.0 [facility] Comment on above: Performed By: #### L 300.4310, L100.0100, L500.2500, L300.3900, L501.4021 #### [facility] [address] [place], [address] CHM 7 - EDon 08-05-2025 Anion gap [Moles/Vol] 18 mmol/L High 7-17 [facility] Comment on above: Performed By: #### L ABHSTI1, C7ED, HFP #### [facility] (DEFAULT) [address] [place] [address] Chloride [Moles/Vol] 100 mmol/L Normal 98-108 [facility] Comment on above: Performed By: #### GABRIEL CAMARGO, HFP #### [facility] (DEFAULT) [address] [place] [address] CO2 [Moles/Vol] 23 mmol/L Normal 21-31 [facility] Comment on above: Performed By: #### GABRIEL CAMARGO, HFP #### [facility] (DEFAULT) [address] [place] [address] Creatinine [Mass/Vol] 1.12 mg/dL Normal 0.50-1.20 [facility] Comment on above: Performed By: #### GABRIEL CAMARGO, HFP #### [facility] (DEFAULT) [address] [place] [address]78 GFR/1.73 sq M.predicted among non-blacks MDRD (S/P/Bld) [Vol rate/Area] 59 mL/min/{1.73_m2} Low >=60 [facility] Comment on above: Result Comment: Repo rted eGFR is based on the CKD-EPI 2020 equation using creatinine, age, and sex. Performed By: #### GABRIEL CAMARGO, HFP #### [facility] (DEFAULT) [address] [place] [address] Glucose [Mass/Vol] 319 mg/dL High Nonfastin -179 mg/dL; Fastin-99 [facility] Comment on above: Performed By: #### GABRIEL CAMARGO, HFP #### [facility] (DEFAULT) [address] [place] [address] Osmolality [Osmolality] 305 mosm/kg Normal 278-305 [facility] Comment on above: Performed By: #### GABRIEL CAMARGO, HFP #### [facility] (DEFAULT) [address] [place] [address] Potassium [Moles/Vol] 4.5 mmol/L Normal 3.5-5.0 [facility] Comment on above: Performed By: #### L ABHSTI1, C7ED, HFP #### [facility] (DEFAULT) [address] [place] [address] Sodium [Moles/Vol] 136 mmol/L Normal 135-145 [facility] Comment on above: Performed By: #### L ABHSTI1, C7ED, HFP #### [facility] (DEFAULT) [address] [address] Urea nitrogen [Mass/Vol] 27 mg/dL High 7-25 [facility] Comment on above: Performed By: #### L ABHSTI1, C7ED, HFP #### [facility] (DEFAULT) [address] [address] Urea nitrogen/Creatinine [Mass ratio] 24 mg/mg Normal [facility] Comment on above: Performed By: #### L ABHSTI1, C7ED, HFP #### [facility] (DEFAULT) [address] [address] Emergency Department Summary on 08-05-2025 Emergency Department Summary [facility] Medical Records Department [address] [place] [address] Emergency Department Summary 08/05/25 MR#: [id number] Acct: [id number] Name: NEIL WELLINGTON Rep #: [id number] : 1970 54 From: Manda Crouch MD PCP: Luz Mera [employer] Status:DEP ER Location: ED HPI History of Present Illness Chief Complaint: Dizziness Narrative Narrative: Patient is a 54-year-old female presenting to the emergency department for possible stroke. Patient has a past medical history of a previous stroke, dizziness, diabetes, heart failure, NSTEMI. 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 Patient is a very poor historian. Patient states that yesterday around noon she developed dizziness. Patient states that she went to bed last night and then this morning around 8 AM she woke up with right sided weakness in her arm and legs. She is not on any OAC at home. She denies slurred speech, left sided numbness or weakness. Denies recent falls or head trauma. [facility] Medical History Tobacco abuse Hyperlipidemia History of non-ST elevation myocardial infarction (NSTEMI) Obesity (BMI 30-39.9) Visual disturbance Psoriasis HTN (hypertension) Diabetes Home Medications ???Medication ???Instructions ???Recorded ???Last Taken ???Type HumaLOG KwikPen Insulin See Rx Instructions subcut 3XD Unknown History DIABETES aspirin 81 mg chewable tablet 1 tab PO DAILY heart health Unknown History buspirone 7.5 mg tablet 7.5 mg PO BID mental health Unknown History carvedilol 6.25 mg tablet 6.25 mg PO BID blood pressure 06/26 01/16 Unknown History empagliflozin 10 mg tablet 10 mg PO DAILY diabetes 07/18/24 U nknown History (Jardiance) insulin glargine 100 unit/mL (3 26 unit subcut QPM diabetes Unknown History mL) subcutaneous pen (Lantus Solostar U-100 Insulin) losartan 50 mg tablet 50 mg PO DAILY blood pressure 06/26 01/16 Unknown History ropinirole 0.5 mg tablet 0.5 mg PO TID restless leg 4 Unknown History sertraline 25 mg tablet 25 mg PO DAILY mental health 07/18 Unknown History ticagrelor 90 mg tablet (Brilinta) 90 mg PO BID anti platelet 07/18 Unknown History atorvastatin 40 mg tablet 80 mg (2 x 40 mg) PO DAILY 30 days 07/20/24 Unknown Rx #60 tabs meclizine 12.5 mg tablet 12.5 mg PO TID PRN PRN Dizziness 1 Unknown Rx #20 tabs amlodipine 5 mg tablet 5 mg PO BID #60 tabs 07/25/24 Unkn own Rx Allergy/AdvReac Type Severity Reaction Status Date / Time No Known Allergies Allergy Verified 08/05/25 18:11 Surgical History History of nasal surgery Hx of lymph node biopsy Hx of cholecystectomy Social History Smoking Status: Current every day smoker tobacco type: cigarettes ROS ROS ED ROS Narrative See HPI EXAM Physical Exam Narrative Exam Narrative: Vital signs: Reviewed General: Alert and orientedx3. No acute distress. Disheveled appearing. HEENT: Head is normocephalic and atraumatic, sinuses nontender, pupils equal round and reactive. Nares are patent. Oropharynx and throat exams normal. Neck: Supple without lymphadenopathy nontender Cardiovascular: Regular rate and rhythm, no murmurs. No rubs or gallops. Normal S1 and S2 Respiratory: Clear to auscultation bilaterally. No wheezes, rales, rhonchi Abdominal: Soft and nontender. Normal bowel sounds. No guarding or rebound. Nonsurgical abdomen Extremities: No tenderness. No bruising. Normal range of motion. Normal sensation. Skin: No rash or redness. The rest of the physical exam is unremarkable Const Vital Signs: 08/05/25 18:12 08/05/25 18:22 08/05/25 18:30 Temperature 97.5 F L Temperature Source Oral Pulse Rate 91 91 72 Respiratory Rate 16 16 17 Blood Pressure 174/98 H 174/98 H 152/74 H Blood Pressure Mean 123 123 100 Pulse Ox 100 100 97 Oxygen Delivery Method Room Air 08/05/25 18:36 08/05/25 19:00 08/05/25 19:30 Temperature Temperature Source Pulse Rate 73 72 Respiratory Rate 24 H 16 Blood Pressure 136/83 H 152/66 H Blood Pressure Mean 99 94 Pulse Ox 94 99 Oxygen Delivery Method Room Air Room Air 08/05/25 20:00 08/05/25 20:00 08/05/25 20:30 Temperature Temperature Source Pulse Rate 73 73 Respiratory Rate 20 H 19 H Blood Pressure 161/81 H 161/81 H 183/97 H Blood Pressure Mean 107 107 117 Pulse Ox 99 100 Oxygen Delivery Method Room Air 08/05/25 20:56 08/05/25 21:00 Temperature 98.5 F 98.5 F Temperature Source Oral Pulse Rate 67 67 (more content not included)... Normal [facility] HEPATIC FUNCTION PANELon Albumin [Mass/Vol] 4.4 g/dL Normal 3.5-5.0 [facility] Comment on above: Performed By: #### L ABHSTI1, C7ED, HFP #### [facility] (DEFAULT) [address] [place] [address] ALP [Catalytic activity/Vol] 136 U/L High 32-126 [facility] Comment on above: Performed By: #### L ABHSTI1, C7ED, HFP #### [facility] (DEFAULT) [address] [place] [address] 69842 ALT [Catalytic activity/Vol] 18 U/L Normal 9-48 [facility] Comment on above: Performed By: #### L ABHSTI1, C7ED, HFP #### [facility] (DEFAULT) [address] [place] [address] 42478 AST [Catalytic activity/Vol] 15 U/L Normal 10-39 [facility] Comment on above: Performed By: #### L ABHSTI1, C7ED, HFP #### [facility] (DEFAULT) [address] [place] [address]117 Bilirubin [Mass/Vol] 0.5 mg/dL Normal <1.5 [facility] Comment on above: Performed By: #### L ABHSTI1, GutierrezED, HFP #### [facility] (DEFAULT) [address] [place] [address] 16857 Bilirubin Direct < Normal <0.3 [facility] Comment on above: Result Comment: Spec imen hemolyzed. Direct bilirubin results may be falsely decreased. Interpret within the clinical context. Performed By: #### L ABHSTI1, C7ED, HFP #### [facility] (DEFAULT) [address] [place] [address]8915 Protein [Mass/Vol] 8.6 g/dL High 6.4-8.3 [facility] Comment on above: Performed By: #### L ABHSTI1, C7ED, HFP #### [facility] (DEFAULT) [address] [place] [address] HIGH SENSITIVITY TROPONIN I - SINGLE ORDERon 08-05-2025 hs-Troponin I 37 ng/L High <34 [facility] Comment on above: Order Comment: Acute Coronary Syndrome (ACS): Initial Evaluation and Management: [email or web address] Performed By: #### L ABHSTI1, C7ED, HFP #### [facility] (DEFAULT) [address] [place] [address]183 L501.4021on 08-05-2025 Trop T High Sen 11 ng/L Normal <=14 [facility] Comment on above: Performed By: #### L 100.0100, L500.2500 #### [facility] Laboratory [address] [place], [address] PTINR-STROKEon 08-05-2025 INR Coag (PPP) [Relative time] 1.0 {INR} Normal 0.9-1.1 [facility] Comment on above: Performed By: #### P TISTR, PTT #### [facility] (DEFAULT) [address] [place] [address] PT Coag (PPP) [Time] 13.1 s Normal 11.9-14.2 [facility] Comment on above: Performed By: #### P TISTR, PTT #### [facility] (DEFAULT) [address] [place] [address] PTTon 08-05-2025 aPTT Coag (Bld) [Time] 24.5 s Normal 24.0-34.3 [facility] Comment on above: Performed By: #### P TISTR, PTT #### [facility] (DEFAULT) [address] [place] [address] 46902 Partial Thromboplast Timeon 08-05-2025 aPTT Coag (Bld) [Time] 25.0 s Normal 24.1-36.[address] [facility] Comment on above: Performed By: #### L 100.0100, L500.2500 #### [facility] Laboratory [address] [place], [address] Prothrombin Time w/INRon INR Coag (PPP) [Relative time] 1.0 {INR} Normal [facility] Comment on above: Performed By: #### L 100.0100, L500.2500 #### [facility] [address] [place], [address] PT Coag (PPP) [Time] 12.9 s Normal 11.7-14.9 [facility] Comment on above: Performed By: #### L 100.0100, L500.2500 #### [facility] Laboratory [address] [place], [address] STROKE Brain/Head without Co nton 08-05-2025 STROKE Brain/Head without Cont [facility] Imaging Services [address] [place] [address] STROKE Brain/Head without Cont MR#: [id number] Acct: [id number] Name: NEIL WELLINGTON Rep #: [id number] : 1970 F 54 From: Ana Maria Valladares PCP: REBECCA Parra Status: REG ER Study: STROKE Brain/Head without Cont Date of Exam: 10/05/24 Exam# [id number] Ordering Dr: Manda Crouch MD PROCEDURE: STROKE BRAIN/HEAD WITHOUT CONT 08/05/2025 REASON FOR EXAM: NEURO DEFICIT, ACUTE, STROKE SUSPECTED TECHNIQUE: Procedure Code: CTBR.ST Modality: CT Procedure: STROKE BRAIN/HEAD WITHOUT CONT Coronal and Sagittal reconstruction series were provided. One or more dose reduction techniques were used (e.g., Automated exposure control, adjustment of the mA and/or kV according to patient size, use of iterative reconstruction technique. 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 Left carrizales radiata encephalomalacia. There is no acute infarct, intracranial hemorrhage, or mass effect. There is no hydrocephalus or significant midline shift. There is mild chronic microvascular ischemic changes and mild parenchymal volume loss. No acute, depressed calvarial fractures. No large scalp hematomas. Scattered paranasal sinus fluid. CT/STROKE Brain/Head without Cont IMPRESSION: No acute, large territorial infarction. Bilateral occipital lobe encephalomalacia likely from prior chronic infarctions. Left carrizales radiata encephalomalacia. Scattered paranasal sinus fluid. Stroke Alert: No acute, large territorial infarction. The critical findings in the findings and impression above were relayed directly by me by telephone to Manda Crouch on 08/05/2025 at 6:45 pm with readback verification. Reading Location: [facility] CC: DRAY TRUCK DRIVERJanethC Luz Mera; Dr. Manda Crouch MD Bleach Chlorinator: Signed Normal [facility] STROKE CTA Head AND Neck W/C onon 08-05-2025 STROKE CTA Head AND Neck W/Con [facility] Imaging Services [address] [place], [place] [id number] STROKE CTA Head AND Neck W/Con MR#: [id number] Acct: [id number] Name: NEIL WELLINGTON Rep #: [id number] : 1970 F 54 From: Ana Maria Valladares PCP: REBECCA Parra Status: REG ER Study: STROKE CTA Head AND Neck W/Con Date of Exam: 10/05/24 Exam# [id number] Ordering Dr: Manda Crouch MD PROCEDURE: STROKE CTA HEAD AND NECK W/CON 08/05/2025 REASON FOR EXAM: NEURO DEFICIT, ACUTE, STROKE SUSPECTED TECHNIQUE: Procedure Code: CTCTA.ST.HN Modality: CT Procedure: STROKE CTA HEAD AND NECK W/CON Multiplanar Sagittal and Coronal images were obtained. CONTRAST: 100 mL of Isovue 370 One or more dose reduction techniques were used (e.g., Automated exposure control, adjustment of the mA and/or kV according to patient size, use of iterative reconstruction technique). RADIATION DOSE SUMMARY: DLP: 598 mGycm COMPARISON: none FINDINGS: The aortic arch demonstrates a type I configuration. The ostia of the great vessels are patent. There is conventional branching. The right CCA contains mural noncalcified atherosclerosis with minimal stenosis. There is mild to moderate stenosis ( 50%) of the right carotid bifurcation by NASCET criteria due to mural noncalcified atherosclerosis (series 2, image 253). There is moderate ( 75%) stenosis of the right carotid siphon due to noncalcified atherosclerosis (series 2, image 378). The right A2 appears absent which may reflect congenital or occlusion. The right MCA appear patent. The left CCA contains mural noncalcified atherosclerosis with minimal stenosis. There is mild to moderate stenosis ( 50%) of the left carotid bifurcation by NASCET criteria due to mural noncalcified atherosclerosis (series 2, image 252). the cervical left ICA is patent. The left RUTH ANN appear patent. There is mild stenosis of the distal M1 (series 2, image 391). There is no large vessel occlusion. The right vertebral artery arises from the right subclavian artery. The left vertebral artery arises from the left subclavian artery. There is mural noncalcified atherosclerosis of the proximal left subclavian artery with mild to moderate stenosis. There is complete occlusion of the right V1 and V2 segment up to the level of the C4 vertebral level. There is moderate stenosis vs possible dissection at the distal right V4 segment (series 2, image 351). Both vertebral arteries join to form the patent basilar artery. Both posterior cerebral arteries arise from the tip of the basilar. Both proximal [employer] segments are patent but diminutive. There is no enhancing intracranial mass. Shotty cervical lymph nodes are identified. The thyroid gland is heterogeneous. The lung apices demonstrate no pneumothorax. No destructive osseous abnormalities identified. 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 Moderate stenosis vs possible dissection at the distal right V4 segment. 2) right A2 appears absent which may reflect congenital or occlusion. 3) mild stenosis of the distal M1 ( 50%). 4) mural noncalcified atherosclerosis of the proximal left subclavian artery with mild to moderate stenosis. 5) moderate ( 75%) stenosis of the right carotid siphon and mild to moderate stenosis ( 50%) of the bilateral carotid bulbs due to atherosclerosis. The critical findings in the findings and impression above were relayed directly by me by telephone to Manda Crouch on 08/05/2025 at 7:25 pm EST with readback verification. Reading Location: [facility] CC: REBECCA Mera; Dr. Manda Crouch MD Bleach Chlorinator: Signed Normal [facility] Troponin T HS 2 HRon 025 Trop T High Sen 9 ng/L Normal <=14 [facility] Comment on above: Performed By: #### L 499.0042 #### [facility] Laboratory [address] [place], [address] Troponin T HS 4 HRon 025 Trop T High Sen Normal <=14 [facility] Comment on above: Result Comment: Canc elled via OM: Order cancelled - Patient discharged Performed By: #### L 499.0043 #### [facility] Laboratory [address] [facility] [place], [address] Urine Cultureon 07-24-2025 [facility] Mixed Gram Positive Organisms [employer] Count 11,000-25,000 MIXC Mixed contaminants. Submit a new specimen if indicated. Normal [facility] Comment on above: Performed By: #### L 100.0100, L500.2500 #### [facility] Laboratory [address] [facility] [place], [address] 12 Lead EKGon 07-23-2025 12 Lead EKG [facility] Cardiovascular Services [address] [place] [address] 12 Lead EKG 07/23/25 1300 MR#: [id number] Acct: [id number] Name: NEIL WELLINGTON Rep #: [id number] : 1970 54 From: Eddy Puckett MD [...] ECG Confirmed by EDDY PUCKETT MD ([id number]), website/blog editor LAUREN AKINS ([id number]) on 07/25/2025 7:08:43 AM Referred By: BB Confirmed By: EDDY PUCKETT MD 07/25/25 0708 Date Eddy Puckett MD CC: REBECCA Mera; Dr. Guero Gomez MD Signed Normal [facility] Basic Metabolic Profile (BMP )on 07-23-2025 BUN/CRE 14.5 RATIO Normal 07-14 [facility] Comment on above: Performed By: #### L 500.4050, L100.0100 #### [facility] Laboratory [address] [place], [address] Calcium [Mass/Vol] 9.1 mg/dL Normal 7.6-11.0 [facility] Comment on above: Performed By: #### L 500.4050, L100.0100 #### [facility] Laboratory [address] [place], [address] Chloride [Moles/Vol] 102 mmol/L Normal 98-108 [facility] Comment on above: Performed By: #### L 500.4050, L100.0100 #### [facility] [address] [place], [address] CO2 [Moles/Vol] 21.6 mmol/L Normal 21.0-32.0 [facility] Comment on above: Performed By: #### L 500.4050, L100.0100 #### [facility] [address] [place], [address] Creatinine [Mass/Vol] 0.89 mg/dL Normal 0.70-1.20 [facility] Comment on above: Performed By: #### L 500.4050, L100.0100 #### [facility] [address] [place], [address] ECRCL 78.57 ml/min Normal 50-250 [facility] Comment on above: Performed By: #### L 500.4050, L100.0100 #### [facility] [address] [place], [address] GAP 14 Normal 5-15 [facility] Comment on above: Performed By: #### L 500.4050, L100.0100 #### [facility] [address] [place], [address] GFR/1.73 sq M.predicted among non-blacks MDRD (S/P/Bld) [Vol rate/Area] 77 mL/min/{1.73_m2} Normal >60 [facility] Comment on above: Result Comment: mL/m in/1.73m2 CKD-EPI Creatinine Equation (2020) Performed By: #### L 500.4050, L100.0100 #### [facility] Laboratory [address] [place], [address] Glucose [Mass/Vol] 315 mg/dL High 70-99 [facility] Comment on above: Performed By: #### L 500.4050, L100.0100 #### [facility] [address] [place], [address] Potassium [Moles/Vol] 3.5 mmol/L Normal 3.3-5.1 [facility] Comment on above: Performed By: #### L 500.4050, L100.0100 #### [facility] [address] [place], [address] Sodium [Moles/Vol] 137 mmol/L Normal 133-145 [facility] Comment on above: Performed By: #### L 500.4050, L100.0100 #### [facility] [address] [place], [address] Urea nitrogen [Mass/Vol] 13 mg/dL Normal 4-19 [facility] Comment on above: Performed By: #### L 500.4050, L100.0100 #### [facility] Laboratory [address] [place], [address] Bedside Glucoseon 07-23-2025 FINGERSTICK GLU 177 mg/dL High 74-106 [facility] Comment on above: Result Comment: DENISE GEMENT OF PATIENT CARE PER NURSING PROTOCOL Performed By: #### L 100.0100, L500.2500 #### [facility] Laboratory [address] [place], [address] FINGERSTICK GLU 225 mg/dL High 74-106 [facility] Comment on above: Result Comment: DENISE GEMENT OF PATIENT CARE PER NURSING PROTOCOL Performed By: #### L 100.0100, L500.2500 #### [facility] Laboratory [address] [place], [address] FINGERSTICK GLU 246 mg/dL High 74-106 [facility] Comment on above: Result Comment: DENISE GEMENT OF PATIENT CARE PER NURSING PROTOCOL Performed By: #### L 100.0100, L500.2500 #### [facility] Laboratory [address] [place], [address] CBC W/Diff, Automatedon 10-2 Absolute Lymph 3.42 X10 3/uL Normal 0.83-4.51 [facility] Comment on above: Performed By: #### L 500.4050, L100.0100 #### [facility] Laboratory [address] [place], [address] Absolute Neut 7.9 X10 3/uL High 2.0-7.7 [facility] Comment on above: Performed By: #### L 500.4050, L100.0100 #### [facility] [address] [place], [address] Basophils/100 WBC (Bld) 0.7 % Normal 0-1 [facility] Comment on above: Performed By: #### L 500.4050, L100.0100 #### [facility] Laboratory [address] [place], [address] Eosinophils/100 WBC (Bld) 2.4 % Normal 0-5 [facility] Comment on above: Performed By: #### L 500.4050, L100.0100 #### [facility] Laboratory [address] [place], [address] Erythrocyte distribution width (RBC) [Ratio] 13.3 % Normal 11.6-14.6 [facility] Comment on above: Performed By: #### L 500.4050, L100.0100 #### [facility] Laboratory [address] [place], [address] Hematocrit (Bld) [Volume fraction] 43.8 % Normal 37-47 [facility] Comment on above: Performed By: #### L 500.4050, L100.0100 #### [facility] Laboratory [address] [place], [address] Hemoglobin (Bld) [Mass/Vol] 14.7 g/dL Normal 12.0-15.0 [facility] Comment on above: Performed By: #### L 500.4050, L100.0100 #### [facility] Laboratory [address] [place], [address] IG% 0.400 Normal 0.0-0.9 [facility] Comment on above: Result Comment: IG% - Immature Granulocytes (promyelocytes, myelocytes and metamyelocytes) > 1% indicates that a LEFT SHIFT is Present. Performed By: #### L 500.4050, L100.0100 #### [facility] Laboratory [address] [place], [address] Lymphocytes/100 WBC (Bld) 27.1 % Normal 19-41 [facility] Comment on above: Performed By: #### L 500.4050, L100.0100 #### [facility] Laboratory [address] [place], [address] MCH (RBC) [Entitic mass] 29.9 pg Normal 27.0-32.0 [facility] Comment on above: Performed By: #### L 500.4050, L100.0100 #### [facility] Laboratory [address] [place], [address] MCHC (RBC) [Mass/Vol] 33.6 g/dL Normal 32-36 [facility] Comment on above: Performed By: #### L 500.4050, L100.0100 #### [facility] Laboratory [address] [place], [address] MCV (RBC) [Entitic vol] 89.2 fL Normal 81-99 [facility] Comment on above: Performed By: #### L 500.4050, L100.0100 #### [facility] Laboratory [address] [place], [address] Monocytes/100 WBC (Bld) 6.8 % Normal 0-10 [facility] Comment on above: Performed By: #### L 500.4050, L100.0100 #### [facility] Laboratory [address] [place], [address] Neutrophils/100 WBC (Bld) 62.6 % Normal 47-70 [facility] Comment on above: Performed By: #### L 500.4050, L100.0100 #### [facility] Laboratory [address] [place], [address] Nucleated RBC (Bld) [#/Vol] 0 10*3/uL Normal 0-5 [facility] Comment on above: Performed By: #### L 500.4050, L100.0100 #### [facility] Laboratory [address] [place], [address] Platelet mean volume (Bld) [Entitic vol] 11.4 fL Normal 6.2-12.0 [facility] Comment on above: Performed By: #### L 500.4050, L100.0100 #### [facility] Laboratory [address] [place], [address] Platelets (Bld) [#/Vol] 304 10*3/uL Normal 150-450 [facility] Comment on above: Performed By: #### L 500.4050, L100.0100 #### [facility] Laboratory [address] [place], [address] RBC (Bld) [#/Vol] 4.91 10*6/uL Normal 4.2-5.4 [facility] Comment on above: Performed By: #### L 500.4050, L100.0100 #### [facility] Laboratory [address] [place], [address] RDW SD 43.6 fl Normal 35.1-43.9 [facility] Comment on above: Performed By: #### L 500.4050, L100.0100 #### [facility] Laboratory [address] [place], [address] WBC (Bld) [#/Vol] 12.6 10*3/uL High 4.4-11.0 [facility] Comment on above: Performed By: #### L 500.4050, L100.0100 #### [facility] Laboratory [address] [place], [address] Chest 1 View (Portable)on Chest 1 View (Portable) [facility] Imaging Services [address] [place] [address] Chest 1 View (Portable) MR#: [id number] Acct: [id number] Name: NEIL WELLINGTON Rep #: [id number] : 1970 F 54 From: Teddy Valladares PCP: REBECCA Parra Status: REG ER Study: Chest 1 View (Portable) Date of Exam: 07/23/25 Exam# [id number] Ordering Dr: Guero Gomez MD PROCEDURE: CHEST [...] evidence of acute cardiopulmonary disease. Reading Location: [place] [address] CC: DRAY TRUCK DRIVER-C Luz Mera; Dr. Guero Gomez MD Bleach Chlorinator: Signed Normal [facility] Emergency Department Summary on 07-23-2025 Emergency Department Summary [facility] Medical Records Department [address] [place] [address] Emergency Department Summary 07/23/25 MR#: [id number] Acct: [id number] Name: NEIL WELLINGTON Rep #: [id number] : 1970 54 From: Guero Gomez MD PCP: REBECCA Parra Status:REG ER Location: ED HPI History of Present Illness Chief Complaint: Hypertension Informant: patient and EMS Narrative Narrative: Patient is a 54-year-old female with a history of DM presenting to the ED with elevated blood pressure and hyperglycemia. - Home health nurse recorded BP of 200/100 mmHg today. - Reports feeling a little bit lightheaded and off balance today; denies severe symptoms. - Denies dyspnea, chest pain, fever, or other illness although she felt a little short of breath once last night. - Denies dysuria; reports a normal cough. - Reports polyuria, unsure if it is more than usual. - Denies any recent EtOH or drug use. - Smoker. - Blood glucose measured at 354 mg/dL by EMS. - Has not taken insulin for an unspecified duration; insulin is at a different location, and she is unable to retrieve it. - Takes oral diabetes medication. [facility] Medical History Tobacco abuse Hyperlipidemia History of [...] rash Neurol (more content not included)... Normal [facility] L501.4021on 07-23-2025 Trop T High Sen 8 ng/L Normal <=14 [facility] Comment on above: Performed By: #### L 100.0100, L500.2500 #### [facility] Laboratory [address] [place], [address] Troponin T HS 2 HRon 07-23- 025 Trop T High Sen 9 ng/L Normal <=14 [facility] Comment on above: Performed By: #### L 499.0042 #### [facility] Laboratory [address] [place], [address] Troponin T HS 4 HRon 07-23-2 025 Trop T High Sen Normal <=14 [facility] Comment on above: Result Comment: Canc elled via OM: Order cancelled - Patient discharged Performed By: #### L 500.4050, L100.0100 #### [facility] Laboratory [address] [place], [address] Urinalysis, Completeon 07-23 BACTERIA 2+ /hpf Normal None Seen [facility] Comment on above: Order Comment: COLLE CTOR TO SPECIFY Performed By: #### L 500.4050, L100.0100 #### [facility] Laboratory [address] [place], [address] EPI,SQUAMOUS 0-5 SEEN Normal 5-10 [facility] Comment on above: Order Comment: COLLE CTOR TO SPECIFY Performed By: #### L 500.4050, L100.0100 #### [facility] Laboratory [address] [place], [address] Mucus Ql (Urine sed) 1+ /hpf Normal [facility] Comment on above: Order Comment: COLLE CTOR TO SPECIFY Performed By: #### L 500.4050, L100.0100 #### [facility] Laboratory [address] [place], [address] RBC 0-5 SEEN Normal 0-5 [facility] Comment on above: Order Comment: COLLE CTOR TO SPECIFY Performed By: #### L 500.4050, L100.0100 #### [facility] Laboratory [address] [place], [address] WBC 5-10 SEEN Normal 0-5 [facility] Comment on above: Order Comment: COLLE CTOR TO SPECIFY Performed By: #### L 500.4050, L100.0100 #### [facility] Laboratory [address] [place], [address] YEAST RARE Normal None Seen [facility] Comment on above: Order Comment: MADDISON CTOR TO SPECIFY Performed By: #### L 500.4050, L100.0100 #### [facility] Laboratory [address] [place], [address] Colonoscopy studyon 07-14-20 [facility] Patient: NEIL WELLINGTON : 1970 Account: [id number] Sex at : Female Age: 54 Years [...] 5 years for surveillance. Procedure Code(s): - 96215, Colonoscopy, flexible; with biopsy, single or multiple Diagnosis Code(s): - Z12.11, Encounter for screening for malignant neoplasm of colon - D12.4, Benign neoplasm of descending colon - D12.5, Benign neoplasm of sigmoid colon - K64.0, First degree hemorrhoids - K64.4, Residual hemorrhoidal skin tags CPT(R) - 2023 copyright [employer]. All Rights Reserved. The CPT codes, CCI edits and ICD codes generated are intended as suggestions and were generated based on input data. These codes are preliminary and upon thread spooler review may be revised to meet current compliance and payer requirements. The provider is responsible for the final determination of appropriate codes, and modifiers. Scope Withdrawal Time: 00:10:40 UNIQUE HAMMOND This document has been electronically signed. Note Initiated:07/14/2025 Note Completed:07/14/2025 11:51 AM Rima Mccain MD - 07/14/2025 [facility] Patient: NEIL WELLINGTON : 1970 Account: [id number] Sex at : Female Age: 54 Years [...] 5 years for surveillance. Procedure Code(s): - 84939, Colonoscopy, flexible; with biopsy, single or multiple Diagnosis Code(s): - Z12.11, Encounter for screening for malignant neoplasm of colon - D12.4, Benign neoplasm of descending colon - D12.5, Benign neoplasm of sigmoid colon - K64.0, First degree hemorrhoids - K64.4, Residual hemorrhoidal skin tags CPT(R) - 2022 copyright [employer]. All Rights Reserved. The CPT codes, CCI edits and ICD codes generated are intended as suggestions and were generated based on input data. These codes are preliminary and upon thread spooler review may be revised to meet current compliance and payer requirements. The provider is responsible for the final determination of appropriate codes, and modifiers. Scope Withdrawal Time: 00:10:40 UNIQUE HAMMOND This document has been electronically signed. Note Initiated:07/14/2025 Note Completed:07/14/2025 11:[address] [facility] POCT Glucoseon 07-14-2025 Glucose [Mass/Vol] 192 mg/dL High 70 - 99 mg/dl [facility] Interpretation and review of laboratory results Abnormal [facility] Performed on ACCU-CHEK [facility] Glucose [Mass/Vol] 192 mg/dL Critically high 70-[address] [facility] ([place], [place]) Comment on above: Performed By: #### P GLU #### [facility] [address] [facility] [id number] POC Performed on ACCU-CHEK Normal [facility] Comment on above: Performed By: #### P GLU #### [facility] [address] [place] [address] [id number] Surgical Specimenon 07-14-20 Surgical Specimen [facility] Services [address] [place], [place] [id number] FINAL SURGICAL PATHOLOGY REPORT Patient Name: NEIL WELLINGTON Accession No: [id number] Age Sex: 1970 Location: [facility] NON Account No: [id number] Collected: 07/14/2025 [facility] Rec No: [id number] Received: 07/15/2025 Attend Phys: UNIQUE HAMMOND Completed: [...] formalin. A. Received is one container designated colon. The specimen consists of portions of cunha soft tissue, 0.4 x 0.3 x 0.1 cm in aggregate. The specimen is submitted in toto in one cassette. B. Received is one container designated sigmoid colon. The specimen consists of two pieces of cunha soft tissue, 0.1 and 0.3 cm in greatest dimension. The specimen is submitted in toto in one cassette. CAROLYN/TATYANA CPT: 73559 X2 J CIARAN LYNNE M.D. 07/16/2025 Electronically signed out by Page 1 of 1 Invalid Interpretation Code [facility] Comment on above: Performed By: #### S UR #### [facility] [address] [place] [address] Absolute lymphocyte countOrd ered By: Peter Thompson on 07-09-2025 Lymphocytes Auto (Unsp spec) [#/Vol] 3.77 10*3/uL 0.83-4.51 [facility] Absolute neutrophil countOrd ered By: Peter Thompson on 07-09-2025 Neutrophils (Bld) [#/Vol] 9.4 10*3/uL High 2.0-7.7 [facility] Anion gap in Serum or Plasma Ordered By: Peter Thompson on 07-09-2025 Anion gap [Moles/Vol] 12 mmol/L -15 [facility] Automated lymphocyte count a s percentage of total leukocytesOrdered By: Peter Thompson on 07-09-2025 Lymphocytes/100 WBC Auto (Unsp spec) 25.7 % 19-41 [facility] BUN/creatinine ratioOrdered By: Peter Thompson on 07-09-2025 Urea nitrogen/Creatinine [Mass ratio] 11.9 mg/mg 07-14 [facility] Basic Metabolic Profile (BMP )on 07-09-2025 BUN/CRE 11.9 RATIO Normal 07-14 [facility] Comment on above: Performed By: #### L 100.0100, L500.2500 #### [facility] Laboratory [address] [place], [address] Calcium [Mass/Vol] 9.4 mg/dL Normal 7.6-11.0 [facility] Comment on above: Performed By: #### L 100.0100, L500.2500 #### [facility] Laboratory [address] [place], [address] Chloride [Moles/Vol] 99 mmol/L Normal 98-108 [facility] Comment on above: Performed By: #### L 100.0100, L500.2500 #### [facility] Laboratory [address] [place], [address] CO2 [Moles/Vol] 24.1 mmol/L Normal 21.0-32.0 [facility] Comment on above: Performed By: #### L 100.0100, L500.2500 #### [facility] Laboratory [address] [place], [address] Creatinine [Mass/Vol] 1.09 mg/dL Normal 0.70-1.20 [facility] Comment on above: Performed By: #### L 100.0100, L500.2500 #### [facility] Laboratory [address] [place], [address] ECRCL 63.70 ml/min Normal 50-250 [facility] Comment on above: Performed By: #### L 100.0100, L500.2500 #### [facility] Laboratory [address] [place], [address] GAP 12 Normal 02-06 [facility] Comment on above: Performed By: #### L 100.0100, L500.2500 #### [facility] Laboratory [address] [place], [address] GFR/1.73 sq M.predicted among non-blacks MDRD (S/P/Bld) [Vol rate/Area] 61 mL/min/{1.73_m2} Normal >60 [facility] Comment on above: Result Comment: mL/m in/1.73m2 CKD-EPI Creatinine Equation (2020) Performed By: #### L 100.0100, L500.2500 #### [facility] Laboratory [address] [place], [address] Glucose [Mass/Vol] 325 mg/dL High 70-99 [facility] Comment on above: Performed By: #### L 100.0100, L500.2500 #### [facility] Laboratory [address] [place], [address] Potassium [Moles/Vol] 4.1 mmol/L Normal 3.3-5.1 [facility] Comment on above: Performed By: #### L 100.0100, L500.2500 #### [facility] Laboratory [address] [place], [address] Sodium [Moles/Vol] 135 mmol/L Normal 133-145 [facility] Comment on above: Performed By: #### L 100.0100, L500.2500 #### [facility] Laboratory [address] [place], [address] Urea nitrogen [Mass/Vol] 13 mg/dL Normal 4-19 [facility] Comment on above: Performed By: #### L 100.0100, L500.2500 #### [facility] Laboratory [address] [place], [address] Basophil percentageOrdered B y: Peter Thompson on 07-09-2025 Basophils/100 WBC (Bld) 0.7 % 0-1 [facility] Bilirubin Test strip Ql (U)O rdered By: Peter Thompson on 07-09-2025 Bilirubin Ql (U) Negative Negative [facility] Brain/Head without Contrasto n 07-09-2025 Brain/Head without Contrast [facility] Imaging Services [address] [place] [address] Brain/Head without Contrast MR#: [id number] Acct: [id number] Name: NEIL WELLINGTON Rep #: [id number] : 1970 F 54 From: Anibal Clifton MD PCP: Luz Mera, [employer] Status: REG ER Study: Brain/Head without Contrast Date of Exam: 06/25 02/16 Exam# [id number] Ordering Dr: Peter Thompson DO PROCEDURE: BRAIN/HEAD [...] source of the patient's headache. Reading Location: [id number] CC: REBECCA Mera; Dr. Peter Thompson DO Bleach Chlorinator: Signed Normal [facility] CBC W/Diff, Automatedon 10- PLT EST ADEQUATE Normal ADEQ [facility] Comment on above: Performed By: #### L 100.0100, L500.2500 #### [facility] Laboratory [address] [facility] [place], [address] Carbon dioxide, total [Moles /volume] in Central venous bloodOrdered By: Peter Thompson on 07-09-2025 CO2 [Moles/Vol] 24.1 mmol/L 21.0-32.0 [facility] Chloride assayOrdered By: Amor Thompson on 07-09-2025 Chloride [Moles/Vol] 99 mmol/L 98-108 [facility] Emergency Department Summary on 07-09-2025 Emergency Department Summary [facility] Medical Records Department [address] [place] [address] Emergency Department Summary 07/09/25 MR#: [id number] Acct: [id number] Name: NEIL WELLINGTON Rep #: [id number] : 1970 54 From: Peter Thompson DO [...] deficits Psych: Cooperative, appropriate mood and affect [facility] Medical History Tobacco abuse Hyperlipidemia History of [...] Hx of cholecystectomy Social History ... Normal [facility] Eosinophil percentageOrdered By: Peter Thompson on 07-09-2025 Eosinophils/100 WBC (Bld) 2.1 % 0-5 [facility] Erythrocyte distribution wid th ratioOrdered By: Petertyesha Thompson on 07-09-2025 Erythrocyte distribution width (RBC) [Ratio] 12.6 % 11.6-14.6 [facility] Erythrocyte distribution wid th standard deviationOrdered By: Peter Ursula Short on 07-09-2025 Erythrocyte distribution width (RBC) [Ratio] 41.1 fl 35.1-43.9 [facility] Glomerular filtration rate ( GFR) estimation/1.73 sq m using serum, plasma, or whole bOrdered By: Peter Thompson on 07-09-2025 GFR/1.73 sq M.predicted among non-blacks MDRD (S/P/Bld) [Vol rate/Area] 61 mL/min/{1.73_m2} >60 [facility] Comment on above: mL/min/1.73m2 CKD-EP I Creatinine Equation (2020) Hematocrit Auto (Bld) [Volum e fraction]Ordered By: Peter Thompson on 07-09-2025 Hematocrit (Bld) [Volume fraction] 46.5 % 37-47 [facility] Hemoglobin measurementOrdere d By: Peter Thompson on 07-09-2025 Hemoglobin (Bld) [Mass/Vol] 15.4 g/dL High 12.0-15.0 [facility] Immature granulocytes/100 WB C Auto (Bld)Ordered By: Peter Thompson on 07-09-2025 Immature granulocytes/100 WBC (Bld) 0.500 % 0.0-0.9 [facility] Comment on above: IG% - Immature Granu locytes (promyelocytes, myelocytes and metamyelocytes) > 1% indicates that a LEFT SHIFT is Present. Ketones Test strip Ql (U)Ord ered By: Peter Thompson on 07-09-2025 Ketones Ql (U) Negative Negative [facility] MCV (mean corpuscular volume ) determinationOrdered By: Peter Thompson on 07-09-2025 MCV (RBC) [Entitic vol] 89.8 fL 81-99 [facility] Mean corpuscular hemoglobin (MCH) determinationOrdered By: Peter Thompson on 07-09-2025 MCH (RBC) [Entitic mass] 29.7 pg 27.0-32.0 [facility] Mean corpuscular hemoglobin concentration (MCHC) determinationOrdered By: Peter Thompson on 07-09-2025 MCHC (RBC) [Mass/Vol] 33.1 g/dL 32-36 [facility] Mean platelet volume determi nationOrdered By: Peter Thompson on 07-09-2025 Platelet mean volume (Bld) [Entitic vol] 12.3 fL High 6.2-12.0 [facility] Microscopic analysis of urin e for red blood cells (RBC)Ordered By: Peter Thompson on 07-09-2025 Microscopic analysis of urine for red blood cells (RBC) 0-5 SEEN /hpf 0-5 [facility] Monocyte percentageOrdered B y: Peter Thompson on 07-09-2025 Monocytes/100 WBC (Bld) 6.8 % 0-10 [facility] Mucus LM Ql (Urine sed)Order ed By: Peter Thompson on 07-09-2025 Mucus Ql (Urine sed) 0 SEEN /hpf [facility] Neutrophil percentageOrdered By: Peter Thompson on 07-09-2025 Neutrophils/100 WBC (Bld) 64.2 % 47-70 [facility] Nitrite Test strip Ql (U)Ord ered By: Peter Thompson on 07-09-2025 Nitrite Ql (U) Negative Negative [facility] Nucleated red blood cell per centageOrdered By: Peter Thompson on 07-09-2025 Nucleated RBC/100 WBC (Bld) [Ratio] 0 % 0-5 [facility] Platelet countOrdered By: Amor iel Donna on 07-09-2025 Platelet count TNP [facility] Comment on above: Test not [...] 07-09-2025 Platelets LM Ql (Bld) ADEQUATE ADEQ [facility] Potassium measurement (mass/ volume)Ordered By: Peter Thompson on 07-09-2025 Potassium (Unsp spec) [Mass/Vol] 4.1 mmol/L 3.3-5.1 [facility] Protein Test strip Ql (U)Ord ered By: Peter Thompson on 07-09-2025 Protein Ql (U) Negative Negative [facility] RBC Auto (Bld) [#/Vol]Ordere d By: Peter Thompson on 07-09-2025 RBC (Bld) [#/Vol] 5.18 10*6/uL 4.2-5.4 [facility] Serum creatinine measurement (mass/volume)Ordered By: Peter Thompson on 07-09-2025 Creatinine [Mass/Vol] 1.09 mg/dL 0.70-1.20 [facility] Serum glucose measurement (m ass/volume)Ordered By: Peter Thompson on 07-09-2025 Glucose [Mass/Vol] 325 mg/dL High 70-99 [facility] Serum or plasma calcium mark urement (mass/volume)Ordered By: Peter Short on 07-09-2025 Calcium [Mass/Vol] 9.4 mg/dL 7.6-11.0 [facility] Serum or plasma urea nitroge n measurement (mass/volume)Ordered By: Peter Thompson on 07-09-2025 Urea nitrogen [Mass/Vol] 13 mg/dL 4-19 [facility] Sodium levelOrdered By: Erick Thompson on 07-09-2025 Sodium [Moles/Vol] 135 mmol/L 133-145 [facility] Squamous epithelial cells de tection in urine sediment by light microscopyOrdered By: Peter Thompson on 07-09-2025 Epithelial cells.squamous LM Ql (Urine sed) 5-10 SEEN /hpf 5-10 [facility] Urinalysis, Completeon 07-09 RBC 0-5 SEEN Normal 0-5 [facility] Comment on above: Order Comment: MADDISON CTOR TO SPECIFY Performed By: #### L 400.0001 #### [facility] Laboratory [address] [place], [address] BACTERIA 1+ /hpf Normal None Seen [facility] Comment on above: Order Comment: MADDISON CTOR TO SPECIFY Performed By: #### L 400.0001 #### [facility] Laboratory [address] [place], [address] EPI,SQUAMOUS 5-10 SEEN Normal 5-10 [facility] Comment on above: Order Comment: MADDISON CTOR TO SPECIFY Performed By: #### L 400.0001 #### [facility] Laboratory [address] [place], [address] WBC 0-5 SEEN Normal 0-5 [facility] Comment on above: Order Comment: MADDISON CTOR TO SPECIFY Performed By: #### L 400.0001 #### [facility] Laboratory [address] [place], [address] Mucus Ql (Urine sed) 0 SEEN Normal [facility] Comment on above: Order Comment: MADDISON CTOR TO SPECIFY Performed By: #### L 400.0001 #### [facility] Laboratory [address] [place], [address] Urine clarityOrdered By: Sj Thompson on 07-09-2025 Clarity (U) Clear Clear [facility] Urine color determinationOrd ered By: Peter Thompson on 07-09-2025 Color (U) Yellow Yellow [facility] Urine glucose detectionOrder ed By: Peter Thompson on 07-09-2025 Glucose Ql (U) 1000 mg/dl High Normal [facility] Urine leukocyte esterase det ection by dipstickOrdered By: Peter Thompson on 07-09-2025 Leukocyte esterase Test strip Ql (U) 25 /ul High Negative [facility] Urine pHOrdered By: Peter Thorne on 07-09-2025 pH (U) 6.0 [pH] 5.0 - 8.0 [facility] Urine sediment bacteria coun t by microscopy (number/high power field)Ordered By: Peter Thompson on 07-09-2025 Bacteria LM.HPF (Urine sed) [#/Area] 1 /[HPF] None Seen [facility] Urine specific gravity measu rementOrdered By: Peter Thompson on 07-09-2025 Specific gravity (U) [Rel density] 1.010 1.002-1.030 [facility] Urine urobilinogen measureme ntOrdered By: Peter Thompson on 07-09-2025 Urobilinogen Ql (U) Normal mg/dl Normal [facility] White blood cell (WBC) count Ordered By: Peter Thompson on 07-09-2025 WBC (Bld) [#/Vol] 14.7 10*3/uL High 4.4-11.0 [facility] White blood cell countOrdere d By: Peter Thompsno on 07-09-2025 White blood cell count 0-5 SEEN /hpf 0-5 [facility] CT LUNG SCREENING (INITIAL/A NNUAL)on [...] Michael Melendez MD 07/01/25 Final result Normal [facility] Comprehensive Metabolic Pane darien 06-18-2025 Albumin [Mass/Vol] 4.0 g/dL Normal 3.5-4.6 [facility] Comment on above: Performed By: #### C MP #### [facility] [address] [place] [address] ALP [Catalytic activity/Vol] 144 U/L Critically high 40-130 [facility] Comment on above: Performed By: #### C MP #### [facility] [address] [place] [address] ALT [Catalytic activity/Vol] U/L Normal 0-33 [facility] Comment on above: Result Comment: Spec imen lipemia has exceeded the interference as defined by Wayne. Value may be falsely decreased. Performed By: #### C MP #### [facility] [address] [place] [address] Anion gap [Moles/Vol] 14 mmol/L Normal 9-15 [facility] Comment on above: Performed By: #### C MP #### [facility] [address] [place] [address] AST [Catalytic activity/Vol] 15 U/L Normal 0-35 [facility] Comment on above: Result Comment: Spec imen lipemia has exceeded the interference as defined by Wayne. Value may be falsely decreased. Performed By: #### C MP #### [facility] [address] [place] [address] Bilirubin [Mass/Vol] 0.3 mg/dL Normal 0.2-0.7 [facility] Comment on above: Performed By: #### C MP #### [facility] [address] [place] [address] Calcium [Mass/Vol] 9.2 mg/dL Normal 8.5-9.9 [facility] Comment on above: Performed By: #### C MP #### [facility] [address] [place] [address] Chloride [Moles/Vol] 99 mmol/L Normal 95-107 [facility] Comment on above: Performed By: #### C MP #### [facility] [address] [place] [address] CO2 [Moles/Vol] 20 mmol/L Normal 20-31 [facility] Comment on above: Performed By: #### C MP #### [facility] [address] [place] [address] Creatinine [Mass/Vol] 0.96 mg/dL Critically high 0.50-0.90 [facility] Comment on above: Performed By: #### C MP #### [facility] [address] [place] [address] GFR 70.4 Normal >60 [facility] Comment on above: Result Comment: Leticia cernac calculator link https://www.kidney.org/professionals/kdoqi/gfr_calculatorped Effective Jun 27, 2022 [...] secretion. Performed By: #### C MP #### [facility] [address] [place] [address] Globulin (S) [Mass/Vol] 4.3 g/dL Critically high 2.3-3.5 [facility] Comment on above: Performed By: #### C MP #### [facility] [address] [place] [address] Glucose [Mass/Vol] 314 mg/dL Critically high 70-[address] [facility] [place] Comment on above: Performed By: #### C MP #### [facility] [address] [place] [address] Potassium [Moles/Vol] 5.0 mmol/L Critically high 3.4-4.9 [facility] Comment on above: Performed By: #### C MP #### [facility] [address] [place] [address] Protein [Mass/Vol] 8.3 g/dL Critically high 6.3-8.[address] [facility] [place]) Comment on above: Performed By: #### C MP #### [facility] [place] [facility] [address] [place] [address] Sodium [Moles/Vol] 133 mmol/L Low 135-144 [facility] [place] [facility] Comment on above: Performed By: #### C MP #### [facility] [place] [facility] [address] [place] [address] Urea nitrogen [Mass/Vol] 13 mg/dL Normal 6-20 [facility] [place] [facility] Comment on above: Performed By: #### C MP #### [facility] [place] [facility] [address] [place] [address] Lipid Panelon 06-18-2025 Cholesterol [Mass/Vol] 232 mg/dL Critically high 0-199 [facility] [place] [facility] Comment on above: Result Comment: ATP III Cholesterol Classification is Borderline High. Performed By: #### L IPID #### [facility] [place] [facility] [address] [place] [address] Cholesterol in HDL [Mass/Vol] 33 mg/dL Low 40-59 [facility] [place] [facility] Comment on above: Result Comment: ATP III [...] CHD Performed By: #### L IPID #### [facility] [place] [facility] [address] [place] [address] Cholesterol in LDL [Mass/Vol] 123 mg/dL Normal 0-129 [facility] [place] [facility] Comment on above: Result Comment: ATP III LDL Classification is Near Optimal. LDL calculated using the Friedewald equation. Performed By: #### L IPID #### [facility] [place] [facility] [address] [place] [address] Triglyceride [Mass/Vol] 382 mg/dL Critically high 0-150 [facility] [place] [facility] Comment on above: Result Comment: ATP III Triglycerides Classification is High. Performed By: #### L IPID #### [facility] [place] [facility] [address] [place] [address] Comprehensive Metabolic Pane darien 02-20-2025 Anion gap [Moles/Vol] 13 mmol/L Normal 9-15 [facility] [place] [facility] Comment on above: Performed By: #### C MP #### [facility] [place] [facility] [address] [place] [address] Albumin [Mass/Vol] 4.1 g/dL Normal 3.5-4.6 [facility] [place] [facility] Comment on above: Performed By: #### C MP #### [facility] [place] [facility] [address] [place] [address] ALP [Catalytic activity/Vol] 152 U/L Critically high 40-130 [facility] [place] [facility] Comment on above: Performed By: #### C MP #### [facility] [place] [facility] [address] [place] [address] ALT [Catalytic activity/Vol] U/L Normal 0-33 [facility] [place] [facility] Comment on above: Result Comment: Spec imen lipemia has exceeded the interference as defined by Wayne. Value may be falsely decreased. Performed By: #### C MP #### [facility] [place] [facility] [address] [place] [address] AST [Catalytic activity/Vol] U/L Normal 0-35 [facility] [place] [facility] Comment on above: Result Comment: Spec imen lipemia has exceeded the interference as defined by Wayne. Value may be falsely decreased. Performed By: #### C MP #### [facility] [place] [facility] [address] [place] [address] Bilirubin [Mass/Vol] 0.5 mg/dL Normal 0.2-0.7 [facility] Comment on above: Performed By: #### C MP #### [facility] [place] [facility] [address] [place] [address] Calcium [Mass/Vol] 9.7 mg/dL Normal 8.5-9.9 [facility] [place] [facility] Comment on above: Performed By: #### C MP #### [facility] [place] [facility] [address] [place] [address] Chloride [Moles/Vol] 98 mmol/L Normal 95-107 [facility] Comment on above: Performed By: #### C MP #### [facility] [place] [facility] [address] [place] [address] CO2 [Moles/Vol] 28 mmol/L Normal 20-31 [facility] [place] [facility] Comment on above: Performed By: #### C MP #### [facility] [place] [facility] [address] [place] [address] Creatinine [Mass/Vol] 1.03 mg/dL Critically high 0.50-0.90 [facility] [place] [facility] Comment on above: Performed By: #### C MP #### [facility] [place] [facility] [address] [place] [address] GFR 64.8 Normal >60 [facility] [place] [facility] Comment on above: Result Comment: Ettai atric calculator link https://www.kidney.org/professionals/kdoqi/gfr_calculatorped Effective Jun 27, [...] secretion. Performed By: #### C MP #### [facility] [place] [facility] [address] [place] [address] Globulin (S) [Mass/Vol] 4.0 g/dL Critically high 2.3-3.5 [facility] [place] [facility] Comment on above: Performed By: #### C MP #### [facility] [place] [facility] [address] [place] [address] Glucose [Mass/Vol] 362 mg/dL Critically high 70-[address] [facility] ([place], [place]) Comment on above: Performed By: #### C MP #### [facility] [place] [facility] [address] [place] [address] Potassium [Moles/Vol] 4.0 mmol/L Normal 3.4-4.9 [facility] [place] [facility] Comment on above: Performed By: #### C MP #### [facility] [place] [facility] [address] [place] [address] Protein [Mass/Vol] 8.1 g/dL Critically high 6.3-8.[address] [facility] ([place], [place]) Comment on above: Performed By: #### C MP #### [facility] [place] [facility] [address] [place] [address] Sodium [Moles/Vol] 139 mmol/L Normal 135-144 [facility] [place] [facility] Comment on above: Performed By: #### C MP #### [facility] [place] [facility] [address] [place] [address] Urea nitrogen [Mass/Vol] 16 mg/dL Normal 6-20 [facility] [place] [facility] Comment on above: Performed By: #### C MP #### [facility] [place] [facility] [address] [place] [address] CBC panel Auto (Bld)on 01-20 Erythrocyte distribution width (RBC) [Ratio] 12.6 % Normal 11.5-15.0 [facility] Comment on above: Order Comment: Speci men Type: BLOOD SPECIMEN Ordering Facility: [facility] Address: [address] [place] [address], [address] [address] Performed By: #### 5 8410-2 #### [facility] CLIA [id number] [address] [place] [address] [place] Hematocrit (Bld) [Volume fraction] 46.7 % High 36.0-46.0 [facility] Comment on above: Order Comment: Speci men Type: BLOOD SPECIMEN Ordering Facility: [facility] Address: [address] [place] [address], [address] [address] Performed By: #### 5 8410-2 #### [facility] CLIA [id number] [address] [place] [address] [place] Hemoglobin (Bld) [Mass/Vol] 15.4 g/dL Normal 11.5-15.5 [facility] Comment on above: Order Comment: Speci men Type: BLOOD SPECIMEN Ordering Facility: [facility] Address: [address] [place] [address], [address] [address] Performed By: #### 5 8410-2 #### [facility] CLIA [id number] [address] [place] [address] [place] MCH (RBC) [Entitic mass] 29.8 pg Normal 26.0-34.0 [facility] Comment on above: Order Comment: Speci men Type: BLOOD SPECIMEN Ordering Facility: [facility] Address: [address] [place] [address], [place] [id number] Performed By: #### 5 8410-2 #### [facility] CLIA [id number] [address] [place] [address] [place] MCHC (RBC) [Mass/Vol] 33.0 g/dL Normal 30.5-36.0 [facility] Comment on above: Order Comment: Speci men Type: BLOOD SPECIMEN Ordering Facility: [facility] Address: [address] [place] [address], [place] [id number] Performed By: #### 5 8410-2 #### [facility] CLIA [id number] [address] [place] [address] [place] MCV (RBC) [Entitic vol] 90.3 fL Normal 80.0-100.0 [facility] Comment on above: Order Comment: Speci men Type: BLOOD SPECIMEN Ordering Facility: [facility] Address: [address] [place] [address] Performed By: #### 5 8410-2 #### [facility] CLIA [id number] [address] [place] [address] [place] Nucleated RBC (Bld) [#/Vol] 10*3/uL Normal <0.01 [facility] Comment on above: Order Comment: Speci men Type: BLOOD SPECIMEN Ordering Facility: [facility] Address: [address] [place] [address] Performed By: #### 5 8410-2 #### [facility] CLIA [id number] [address] [place] [address] [place] Platelet mean volume (Bld) [Entitic vol] 12.8 fL High 9.0-12.7 [facility] Comment on above: Order Comment: Speci men Type: BLOOD SPECIMEN Ordering Facility: [facility] Address: [address] [place] [address], [address] [address] Performed By: #### 5 8410-2 #### [facility] CLIA [id number] [address] [address] [place] Platelets (Bld) [#/Vol] 239 10*3/uL Normal 150-400 [facility] Comment on above: Order Comment: Speci men Type: BLOOD SPECIMEN Ordering Facility: [facility] Address: [address] [place] [address], [address] [address] Performed By: #### 5 8410-2 #### [facility] CLIA [id number] [address] [address] [place] RBC (Bld) [#/Vol] 5.17 10*6/uL Normal 3.90-5.20 [facility] Comment on above: Order Comment: Speci men Type: BLOOD SPECIMEN Ordering Facility: [facility] Address: [address] [place] [address], [address] [address] Performed By: #### 5 8410-2 #### [facility] CLIA [id number] [address] [address] [place] WBC (Bld) [#/Vol] 12.09 10*3/uL High 3.70-11.00 [facility] Comment on above: Order Comment: Speci men Type: BLOOD SPECIMEN Ordering Facility: [facility] Address: [address] [place] [address], [address] [address] Performed By: #### 5 8410-2 #### [facility] CLIA [id number] [address] [address] [place] Comprehensive metabolic 2000 panelon 01-20-2025 Albumin [Mass/Vol] 4.0 g/dL Normal 3.9-4.9 [facility] Comment on above: Order Comment: Speci men Type: BLOOD SPECIMEN Ordering Facility: [facility] Address: [address], [place] [address] Performed By: #### 2 4323-8 #### [facility] CLIA [id number] 9500 [facility] [address]K [address] [place] [address] [place] ALP [Catalytic activity/Vol] 150 U/L High 34-123 [facility] Comment on above: Order Comment: Speci men Type: BLOOD SPECIMEN Ordering Facility: [facility] Address: [address] [place] [address], [address], [place] [address] Performed By: #### 2 4323-8 #### [facility] CLIA [id number] [address] [address] [place] ALT [Catalytic activity/Vol] 16 U/L Normal 7-38 [facility] Comment on above: Order Comment: Speci men Type: BLOOD SPECIMEN Ordering Facility: [facility] Address: [address] [place] [address], [address], [place] [address] Performed By: #### 2 4323-8 #### [facility] CLIA [id number] [address] [place] [address] [place] Anion gap [Moles/Vol] 12 mmol/L Normal 8-15 [facility] Comment on above: Order Comment: Speci men Type: BLOOD SPECIMEN Ordering Facility: [facility] Address: [address], [place] [address] Performed By: #### 2 4323-8 #### [facility] CLIA [id number] [address] [facility] [address] [address] [place] AST [Catalytic activity/Vol] 15 U/L Normal 13-35 [facility] Comment on above: Order Comment: Speci men Type: BLOOD SPECIMEN Ordering Facility: [facility] Address: [address] [place] [address], [address], [place] [address] Performed By: #### 2 4323-8 #### [facility] CLIA [id number] [address] [address] [place] Bilirubin [Mass/Vol] 0.3 mg/dL Normal 0.2-1.3 [facility] Comment on above: Order Comment: Speci men Type: BLOOD SPECIMEN Ordering Facility: [facility] Address: [address] [place] [address], [address], [place] [address] Performed By: #### 2 4323-8 #### [facility] CLIA [id number] [address] [address] [place] Calcium [Mass/Vol] 9.2 mg/dL Normal 8.5-10.2 [facility] Comment on above: Order Comment: Speci men Type: BLOOD SPECIMEN Ordering Facility: [facility] Address: [address] [place] [address], [address] [address] Performed By: #### 2 4323-8 #### [facility] CLIA [id number] [address] [address] [place] Chloride [Moles/Vol] 101 mmol/L Normal 98-107 [facility] Comment on above: Order Comment: Speci men Type: BLOOD SPECIMEN Ordering Facility: [facility] Address: [address] [place] [address], [address], [place] [address] Performed By: #### 2 4323-8 #### [facility] CLIA [id number] [address] [address] [place] CO2 [Moles/Vol] 24 mmol/L Normal 22-30 [facility] Comment on above: Order Comment: Speci men Type: BLOOD SPECIMEN Ordering Facility: [facility] Address: [address] [place] [address], [address], [place] [address] Performed By: #### 2 4323-8 #### [facility] CLIA [id number] [address] [place] [id number] [place] Creatinine [Mass/Vol] 0.89 mg/dL Normal 0.58-0.96 [facility] Comment on above: Order Comment: Roopa morales Type: BLOOD SPECIMEN Ordering Facility: [facility] Address: [address] [place] [address], [address] [place] [address] Performed By: #### 2 4323-8 #### [facility] CLIA [id number] [facility] [place] [id number] [place] Creatinine and Glomerular filtration rate.predicted panel (S/P/Bld) 78 mL/min/1.73m??? Normal >=60 [facility] Comment on above: Order Comment: Roopa morales Type: BLOOD SPECIMEN Ordering Facility: [facility] Address: [address] [place] [address], [place] [address] Result Comment: Devi mated Glomerular Filtration Rate [...] GFR. Performed By: #### 2 4323-8 #### [facility] CLIA [id number] [address] [place] [id number] [place] Glucose [Mass/Vol] 407 mg/dL High 74-99 [facility] Comment on above: Order Comment: Roopa morales Type: BLOOD SPECIMEN Ordering Facility: [facility] Address: [address] [place] [address], [address] [place] [place] [address] Result Comment: The English Diabetes Association (ADA) provides guidance for cutoff [...] Standards of Medical Care in Diabetes 2016, English Diabetes Association. Diabetes Care. 2016.39(Suppl 1). Performed By: #### 2 4323-8 #### [facility] CLIA [id number] [address] [address] [place] Potassium [Moles/Vol] 4.3 mmol/L Normal 3.7-5.1 [facility] Comment on above: Order Comment: Speci men Type: BLOOD SPECIMEN Ordering Facility: [facility] Address: [address] [place] [address], [address] [address] Performed By: #### 2 4323-8 #### [facility] CLIA [id number] [address] [place] [id number] [place] Protein [Mass/Vol] 7.5 g/dL Normal 6.3-8.0 [facility] Comment on above: Order Comment: Speci men Type: BLOOD SPECIMEN Ordering Facility: [facility] Address: [address] [place] [address], [address] [address] Performed By: #### 2 4323-8 #### [facility] CLIA [id number] [address] [address] [place] Sodium [Moles/Vol] 137 mmol/L Normal 136-144 [facility] Comment on above: Order Comment: Speci men Type: BLOOD SPECIMEN Ordering Facility: [facility] Address: [address] [place] [address], [address], [place] [address] Performed By: #### 2 4323-8 #### [facility] CLIA [id number] [address] [address] [place] Urea nitrogen [Mass/Vol] 11 mg/dL Normal 7-21 [facility] Comment on above: Order Comment: Speci men Type: BLOOD SPECIMEN Ordering Facility: [facility] Address: [address] [place] [address], [place] [address] Performed By: #### 2 4323-8 #### [facility] CLIA [id number] [address] [place] [id number] [place] HbA1c (Bld)on 01-20-2025 Average glucose Estimated from glycated hemoglobin (Bld) [Mass/Vol] 289 mg/dL Normal [facility] Comment on above: Order Comment: Specneida men Type: BLOOD SPECIMEN Ordering Facility: [facility] Address: [address] [place] [address], [place] [address] Result Comment: eAG: (Estimated average glucose) is a calculated value from HgbA1c and is commissary representative of the average blood glucose level in the last 2-3 month period. Performed By: #### 5 5454-3 #### [facility] CLIA [id number] [address] [place] [address] [place] HbA1c (Bld) [Mass fraction] 11.7 % High 4.3-5.6 [facility] Comment on above: Order Comment: Roopa morales Type: BLOOD SPECIMEN Ordering Facility: [facility] Address: [address] [place] [address], [place] [address] Result Comment: Sandi ican Diabetes Association guidelines indicate that patients with HgbA1c in the range 5.7-6.4% are at increased risk for development of diabetes, and intervention by lifestyle modification may be beneficial. HgbA1c greater or equal to 6.5% is considered diagnostic of diabetes. Performed By: #### 5 5454-3 #### [facility] CLIA [id number] [address] [address] [place] Basic Metabolic Profile (BMP )on 11-02-2024 BUN/CRE 12.8 RATIO Normal 10-20 [facility] Comment on above: Performed By: #### L 400.0001 #### [facility] [address] [place], [address] CA,Total 9.0 mg/dL Normal 8.5-10.1 [facility] Comment on above: Performed By: #### L 400.0001 #### [facility] [address] [place], [address] Chloride [Moles/Vol] 100 mmol/L Normal 98-107 [facility] Comment on above: Performed By: #### L 400.0001 #### [facility] [address] [place], [address] CO2 [Moles/Vol] 23.0 mmol/L Normal 21.0-32.0 [facility] Comment on above: Performed By: #### L 400.0001 #### [facility] [address] [place], [address] Creatinine [Mass/Vol] 1.25 mg/dL High 0.55-1.02 [facility] Comment on above: Result Comment: The validity of the calculated GFR GFRAA in patients over 70 years has not been determined. Clinical correlation is essential. Performed By: #### L 400.0001 #### [facility] [address] [place], [address] ECRCL 60.54 ml/min Normal [facility] Comment on above: Performed By: #### L 400.0001 #### [facility] [address] [place], [address] EST GFR - AA 58 mL/min Low >60 [facility] Comment on above: Result Comment: Afri can English GFR Calc Performed By: #### L 400.0001 #### [facility] [address] [place], [address] GAP 9 Normal 5-15 [facility] Comment on above: Performed By: #### L 400.0001 #### [facility] [address] [place], [address] GFR/1.73 sq M.predicted among non-blacks MDRD (S/P/Bld) [Vol rate/Area] 48 mL/min/{1.73_m2} Low >60 [facility] Comment on above: Result Comment: Non- GFR Calc Performed By: #### L 400.0001 #### [facility] [address] [place], [address] Glucose [Mass/Vol] 487 mg/dL Invalid Interpretation Code 74-106 [facility] Comment on above: Result Comment: Crit ical Result(s) Called at: 02:30:31 11/02/2024 by: Jerardo Gates. TO [facility]. Results read back by same. Glucose result greater than or equal to 200 mg/dL suggests DIABETES MELLITUS per A.D.A. criteria. Performed By: #### L 400.0001 #### [facility] [address] [place], [address] Potassium [Moles/Vol] 4.2 mmol/L Normal 3.5-5.1 [facility] Comment on above: Performed By: #### L 400.0001 #### [facility] [address] [place], [address] Sodium [Moles/Vol] 132 mmol/L Low 136-145 [facility] Comment on above: Performed By: #### L 400.0001 #### [facility] [address] [place], [address] Urea nitrogen [Mass/Vol] 16 mg/dL Normal 7-18 [facility] Comment on above: Performed By: #### L 400.0001 #### [facility] [address] [place], [address] Bedside Glucoseon 11-02-2024 FINGERSTICK GLU 404 mg/dL High 74-106 [facility] Comment on above: Result Comment: DENISE MIKAELENT OF PATIENT CARE PER NURSING PROTOCOL Performed By: #### L 400.0001 #### [facility] [address] [place], [address] CBC W/Diff, Automatedon 02-0 8-2025 Absolute Lymph 1.92 X10 3/uL Normal 0.83-4.51 [facility] Comment on above: Performed By: #### L 400.0001 #### [facility] [address] [place], [address] Absolute Neut 4.0 X10 3/uL Normal 2.0-7.7 [facility] Comment on above: Performed By: #### L 400.0001 #### [facility] [address] [place], [address] Basophils/100 WBC (Bld) 1.7 % High 0-1 [facility] Comment on above: Performed By: #### L 400.0001 #### [facility] [address] [place], [address] Eosinophils/100 WBC (Bld) 2.2 % Normal 0-5 [facility] Comment on above: Performed By: #### L 400.0001 #### [facility] [address] [place], [address] Erythrocyte distribution width (RBC) [Ratio] 12.8 % Normal 11.6-14.6 [facility] Comment on above: Performed By: #### L 400.0001 #### [facility] [address] [place], [address] Hematocrit (Bld) [Volume fraction] 49.8 % High 37-47 [facility] Comment on above: Performed By: #### L 400.0001 #### [facility] [address] [place], [address] Hemoglobin (Bld) [Mass/Vol] 15.8 g/dL High 12.0-15.0 [facility] Comment on above: Performed By: #### L 400.0001 #### [facility] [address] [place], [address] IG% 0.300 Normal 0.0-0.9 [facility] Comment on above: Result Comment: IG% - Immature Granulocytes (promyelocytes, myelocytes and metamyelocytes) > 1% indicates that a LEFT SHIFT is Present. Performed By: #### L 400.0001 #### [facility] [address] [place], [address] Lymphocytes/100 WBC (Bld) 26.9 % Normal 19-41 [facility] Comment on above: Performed By: #### L 400.0001 #### [facility] [address] [place], [address] MCH (RBC) [Entitic mass] 29.6 pg Normal 27.0-32.0 [facility] Comment on above: Performed By: #### L 400.0001 #### [facility] [address] [place], [address] MCHC (RBC) [Mass/Vol] 31.7 g/dL Low 32-36 [facility] Comment on above: Performed By: #### L 400.0001 #### [facility] Laboratory [address] [place], [address] MCV (RBC) [Entitic vol] 93.3 fL Normal 81-99 [facility] Comment on above: Performed By: #### L 400.0001 #### [facility] [address] [place], [address] Monocytes/100 WBC (Bld) 13.3 % High 0-10 [facility] Comment on above: Performed By: #### L 400.0001 #### [facility] [address] [place], [address] Neutrophils/100 WBC (Bld) 55.6 % Normal 47-70 [facility] Comment on above: Performed By: #### L 400.0001 #### [facility] [address] [place], [address] Nucleated RBC (Bld) [#/Vol] 0 10*3/uL Normal 0-5 [facility] Comment on above: Performed By: #### L 400.0001 #### [facility] [address] [place], [address] Platelet mean volume (Bld) [Entitic vol] 12.1 fL High 6.2-12.0 [facility] Comment on above: Performed By: #### L 400.0001 #### [facility] [address] [place], [address] Platelets (Bld) [#/Vol] 154 10*3/uL Normal 150-450 [facility] Comment on above: Performed By: #### L 400.0001 #### [facility] [address] [place], [address] RBC (Bld) [#/Vol] 5.34 10*6/uL Normal 4.2-5.4 [facility] Comment on above: Performed By: #### L 400.0001 #### [facility] [address] [place], [address] RDW SD 43.5 fl Normal 35.1-43.9 [facility] Comment on above: Performed By: #### L 400.0001 #### [facility] [address] [place], [address] WBC (Bld) [#/Vol] 7.1 10*3/uL Normal 4.4-11.0 [facility] Comment on above: Performed By: #### L 400.0001 #### [facility] Laboratory [address] [place], [address] Chest PA and Lateralon 11-02 Chest PA and Lateral [facility] Imaging Services [address] [place] [address] Chest PA and Lateral MR#: [id number] Acct: [id number] Name: NEIL WELLINGTON Rep #: [id number] : 1970 F 54 From: Phuong Griffith i, DO PCP: Care Physician,No Primary Status: PRE ER Study: Chest PA and Lateral Date of Exam: 11/02/24 Exam# [id number] Ordering Dr: Maximo Wayne DO PROCEDURE: PA [...] Maximo Wayne DO; No Primary Care Physician Bleach Chlorinator: Signed Normal [facility] Emergency Department Summary on 11-02-2024 Emergency Department Summary [facility] Medical Records Department [address] [place] [id number] Emergency Department Summary 11/02/24 MR#: [id number] Acct: [id number] Name: NEIL WELLINGTON Rep #: [id number] : 1970 54 From: Maximo Wayne DO [...] with her doctor to get a refill [facility] Medical History Tobacco abuse Hyperlipidemia History of [...] Physical Exa (more content not included)... Normal [facility] Liver Profileon 11-02-2024 Albumin [Mass/Vol] 3.3 g/dL Normal 3.2-5.0 [facility] Comment on above: Performed By: #### L 400.0001 #### [facility] [address] [place], [address] ALK P 138 U/L High 45-117 [facility] Comment on above: Performed By: #### L 400.0001 #### [facility] [address] [place], [address] ALT [Catalytic activity/Vol] 34 U/L Normal 13-56 [facility] Comment on above: Performed By: #### L 400.0001 #### [facility] [address] [place], [address] AST [Catalytic activity/Vol] 19 U/L Normal 15-37 [facility] Comment on above: Performed By: #### L 400.0001 #### [facility] [address] [place], [address] Bilirubin [Mass/Vol] 0.30 mg/dL Normal 0.20-1.00 [facility] Comment on above: Result Comment: For patients on eltrombopag therapy, use of Dimension [place] TBIL is not recommended. Performed By: #### L 400.0001 #### [facility] [address] [place], [address] Bilirubin.direct [Mass/Vol] 0.12 mg/dL Normal 0.00-0.30 [facility] Comment on above: Performed By: #### L 400.0001 #### [facility] [address] [place], [address] Globulin (S) [Mass/Vol] 4.5 g/dL High 2.2-4.2 [facility] Comment on above: Performed By: #### L 400.0001 #### [facility] [address] [place], [address] T PROT 7.8 g/dL Normal 6.4-8.2 [facility] Comment on above: Performed By: #### L 400.0001 #### [facility] [address] [place], [address] M100.678on 11-02-2024 M100.678 SARS-CoV-2 (COVID 19) Negative INFLUENZA A Negative INFLUENZA B Negative RSV PCR A Positive A RSV Normal [facility] Comment on above: Performed By: #### L 400.0001 #### [facility] Laboratory [address] [place], [address] Magnesiumon 11-02-2024 Magnesium [Mass/Vol] 2.1 mg/dL Normal 1.6-2.6 [facility] Comment on above: Performed By: #### L 400.0001 #### [facility] [address] [place], [address] 12 Lead EKGon 08-08-2024 12 Lead EKG [facility] Cardiovascular Services [address] [place] [address] 12 Lead EKG 08/08/24 1722 MR#: [id number] Acct: [id number] Name: NEIL WELLINGTON Rep #: [id number] : 1970 53 From: Linus Ortega MD [...] Abnormal ECG Confirmed by TRISHA MOLINA, REFUGIO ([id number]), website/blog editor TAN CAPONE ([id number]) on 08/13/2024 7:50:31 AM Referred By: Cricket Fuentes Confirmed By: REFUGIO ORTEGA MD 08/13/24 0750 Date Linus Ortega MD CC: Dr. Cricket Fuentes MD; No Primary Care Physician Signed Normal [facility] Brain/Head without Contrasto n 08-08-2024 Brain/Head without Contrast [facility] Imaging Services [address] [place] [address] Brain/Head without Contrast MR#: [id number] Acct: [id number] Name: NEIL WELLINGTON Rep #: [id number] : 1970 F 53 From: Heraclio Valladares PCP: Care Physician,No Primary Status: REG ER Study: Brain/Head without Contrast Date of Exam: 07/26 01/16 Exam# [id number] Ordering Dr: Cricket Fuentes MD [id number] STUDY: CT BRAIN WITHOUT CONTRAST REASON FOR [...] Cricket Fuentes MD; No Primary Care Physician Bleach Chlorinator: Signed Normal [facility] CBC W/Diff, Automatedon 07-26 Absolute Lymph 3.14 X10 3/uL Normal 0.83-4.51 [facility] Comment on above: Performed By: #### L 500.4050, L100.0100 #### [facility] Laboratory [address] [place], [address] Absolute Neut 11.0 X10 3/uL High 2.0-7.7 [facility] Comment on above: Performed By: #### L 500.4050, L100.0100 #### [facility] Laboratory [address] [place], [address] Basophils/100 WBC (Bld) 0.7 % Normal 0-1 [facility] Comment on above: Performed By: #### L 500.4050, L100.0100 #### [facility] Laboratory [address] [place], [address] Eosinophils/100 WBC (Bld) 2.2 % Normal 0-5 [facility] Comment on above: Performed By: #### L 500.4050, L100.0100 #### [facility] Laboratory [address] [place], [address] Erythrocyte distribution width (RBC) [Ratio] 12.9 % Normal 11.6-14.6 [facility] Comment on above: Performed By: #### L 500.4050, L100.0100 #### [facility] Laboratory [address] [place], [address] Hematocrit (Bld) [Volume fraction] 47.1 % High 37-47 [facility] Comment on above: Performed By: #### L 500.4050, L100.0100 #### [facility] Laboratory [address] [place], [address] Hemoglobin (Bld) [Mass/Vol] 16.2 g/dL High 12.0-15.0 [facility] Comment on above: Performed By: #### L 500.4050, L100.0100 #### [facility] [address] [place], [address] IG% 0.600 Normal 0.0-0.9 [facility] Comment on above: Result Comment: IG% - Immature Granulocytes (promyelocytes, myelocytes and metamyelocytes) > 1% indicates that a LEFT SHIFT is Present. Performed By: #### L 500.4050, L100.0100 #### [facility] [address] [place], [address] Lymphocytes/100 WBC (Bld) 20.0 % Normal 19-41 [facility] Comment on above: Performed By: #### L 500.4050, L100.0100 #### [facility] [address] [place], [address] MCH (RBC) [Entitic mass] 30.5 pg Normal 27.0-32.0 [facility] Comment on above: Performed By: #### L 500.4050, L100.0100 #### [facility] [address] [place], [address] MCHC (RBC) [Mass/Vol] 34.4 g/dL Normal 32-36 [facility] Comment on above: Performed By: #### L 500.4050, L100.0100 #### [facility] [address] [place], [address] MCV (RBC) [Entitic vol] 88.7 fL Normal 81-99 [facility] Comment on above: Performed By: #### L 500.4050, L100.0100 #### [facility] [address] [place], [address] Monocytes/100 WBC (Bld) 6.4 % Normal 0-10 [facility] Comment on above: Performed By: #### L 500.4050, L100.0100 #### [facility] [address] [place], [address] Neutrophils/100 WBC (Bld) 70.1 % High 47-70 [facility] Comment on above: Performed By: #### L 500.4050, L100.0100 #### [facility] [address] [place], [address] Nucleated RBC (Bld) [#/Vol] 0 10*3/uL Normal 0-5 [facility] Comment on above: Performed By: #### L 500.4050, L100.0100 #### [facility] Laboratory [address] [place], [address] Platelet mean volume (Bld) [Entitic vol] 12.1 fL High 6.2-12.0 [facility] Comment on above: Performed By: #### L 500.4050, L100.0100 #### [facility] Laboratory [address] [place], [address] Platelets (Bld) [#/Vol] 230 10*3/uL Normal 150-450 [facility] Comment on above: Performed By: #### L 500.4050, L100.0100 #### [facility] Laboratory [address] [place], [address] RBC (Bld) [#/Vol] 5.31 10*6/uL Normal 4.2-5.4 [facility] Comment on above: Performed By: #### L 500.4050, L100.0100 #### [facility] [address] [place], [address] RDW SD 42.1 fl Normal 35.1-43.9 [facility] Comment on above: Performed By: #### L 500.4050, L100.0100 #### [facility] [address] [place], [address] WBC (Bld) [#/Vol] 15.7 10*3/uL High 4.4-11.0 [facility] Comment on above: Performed By: #### L 500.4050, L100.0100 #### [facility] Laboratory [address] [place], [address] Chest PA and Lateralon 08-08 Chest PA and Lateral [facility] Imaging Services [address] [place] [address] Chest PA and Lateral MR#: [id number] Acct: [id number] Name: NEIL WELLINGTON Rep #: [id number] : 1970 F 53 From: Heraclio Valladares PCP: Care Physician,No Primary Status: [facility] ER Study: Chest PA and Lateral Date of Exam: 08/08/24 Exam# [id number] Ordering Dr: Cricket Fuentes MD [id number] STUDY: X-RAY CHEST REASON FOR EXAM: Female, [...] Cricket Fuentes MD; No Primary Care Physician Bleach Chlorinator: Signed Normal [facility] Comprehensive Metabolic Prof ilon 08-08-2024 Albumin [Mass/Vol] 3.9 g/dL Normal 3.2-5.0 [facility] Comment on above: Performed By: #### L 500.4050, L100.0100 #### [facility] Laboratory [address] [place], [address] Albumin/Globulin [Mass ratio] 0.9 {ratio} Normal 0.9-2.4 [facility] Comment on above: Performed By: #### L 500.4050, L100.0100 #### [facility] [address] [place], [address] ALK P 139 U/L High 45-117 [facility] Comment on above: Performed By: #### L 500.4050, L100.0100 #### [facility] [address] [place], [address] ALT [Catalytic activity/Vol] 22 U/L Normal 13-56 [facility] Comment on above: Performed By: #### L 500.4050, L100.0100 #### [facility] [address] [place], [address] AST [Catalytic activity/Vol] 9 U/L Low 15-37 [facility] Comment on above: Performed By: #### L 500.4050, L100.0100 #### [facility] [address] [place], [address] Bilirubin [Mass/Vol] 0.90 mg/dL Normal 0.20-1.00 [facility] Comment on above: Result Comment: For patients on eltrombopag therapy, use of Dimension [place] TBIL is not recommended. Performed By: #### L 500.4050, L100.0100 #### [facility] [address] [place], [address] BUN/CRE 14.0 RATIO Normal 10-20 [facility] Comment on above: Performed By: #### L 500.4050, L100.0100 #### [facility] Laboratory [address] [place], [address] CA,Total 9.5 mg/dL Normal 8.5-10.1 [facility] Comment on above: Performed By: #### L 500.4050, L100.0100 #### [facility] Laboratory [address] [place], [address] Chloride [Moles/Vol] 103 mmol/L Normal 98-107 [facility] Comment on above: Performed By: #### L 500.4050, L100.0100 #### [facility] [address] [place], [address] CO2 [Moles/Vol] 23.0 mmol/L Normal 21.0-32.0 [facility] Comment on above: Performed By: #### L 500.4050, L100.0100 #### [facility] [address] [place], [address] Creatinine [Mass/Vol] 1.07 mg/dL High 0.55-1.02 [facility] Comment on above: Result Comment: The validity of the calculated GFR GFRAA in patients over 70 years has not been determined. Clinical correlation is essential. Performed By: #### L 500.4050, L100.0100 #### [facility] Laboratory [address] [place], [address] EST GFR - AA 69 mL/min Normal >60 [facility] Comment on above: Result Comment: Afri can English GFR Calc Performed By: #### L 500.4050, L100.0100 #### [facility] Laboratory [address] [place], [address] GAP 9 Normal 5-15 [facility] Comment on above: Performed By: #### L 500.4050, L100.0100 #### [facility] Laboratory [address] [place], [address] GFR/1.73 sq M.predicted among non-blacks MDRD (S/P/Bld) [Vol rate/Area] 57 mL/min/{1.73_m2} Low >60 [facility] Comment on above: Result Comment: Non- GFR Calc Performed By: #### L 500.4050, L100.0100 #### [facility] Laboratory [address] [place], [address] Globulin (S) [Mass/Vol] 4.3 g/dL High 2.2-4.2 [facility] Comment on above: Performed By: #### L 500.4050, L100.0100 #### [facility] [address] [place], [address] Glucose [Mass/Vol] 262 mg/dL High 74-106 [facility] Comment on above: Result Comment: Gluc ose result greater than or equal to 200 mg/dL suggests DIABETES MELLITUS per A.D.A. criteria. Performed By: #### L 500.4050, L100.0100 #### [facility] [address] [place], [address] Potassium [Moles/Vol] 3.5 mmol/L Normal 3.5-5.1 [facility] Comment on above: Performed By: #### L 500.4050, L100.0100 #### [facility] [address] [place], [address] Sodium [Moles/Vol] 136 mmol/L Normal 136-145 [facility] Comment on above: Performed By: #### L 500.4050, L100.0100 #### [facility] [address] [place], [address] T PROT 8.2 g/dL Normal 6.4-8.2 [facility] Comment on above: Performed By: #### L 500.4050, L100.0100 #### [facility] [address] [place], [address] Urea nitrogen [Mass/Vol] 15 mg/dL Normal 7-18 [facility] Comment on above: Performed By: #### L 500.4050, L100.0100 #### [facility] [address] [place], [address] Emergency Department Summary on 08-08-2024 Emergency Department Summary [facility] Medical Records Department [address] [place] [address] Emergency Department Summary 08/08/24 MR#: [id number] Acct: [id number] Name: NEIL WELLINGTON Rep #: [id number] : 1970 53 From: Cricket Fuentes MD PCP: Care Physician,No Primary Status:DEP ER Location: ED HPI History of Present Illness Chief Complaint: Dizziness Detail of Chief Complaint: Lightheadedness Informant: patient Onset/Context/Timing Onset: Today and Hours Context: Gradual Onset Timing: Continuous Current Severity: Mild Maximum Severity: Mild Narrative Narrative: 53-year-old female history of stroke x 3, [place] on Brilinta and diabetes. History of stents. States about an hour prior to arrival she felt fuzzy at home. Like lightheadedness. Associated nausea no vomiting. No chest pain. No shortness of breath. Says she took her blood pressure at home it was 104 over something. For her that is low. Says she just overall feels tired. Nausea but no vomiting. No diarrhea or melena. No dysuria or fever. Prior similar symptoms: No Recent Illness/Hospitalizat ion: Yes [facility] Medical History Tobacco abuse Hyperlipidemia History of [...] all 4 extremities. 5 out of 5 under seal operator strength. Radial pulses are equal and symmetrical. Dorsi plantarflexion intact. No drift. Calves are nontender without edema or cords. Back nontender. She is awake and alert. No focal motor deficits. NIH 0. Answering questions and following commands. Const Vital Signs: 08/08/24 (more content not included)... Normal [facility] Urinalysis, Completeon 08-08 RBC 5-10 SEEN Normal 0-5 [facility] Comment on above: Order Comment: COLLE CTOR TO SPECIFY Performed By: #### L 400.0001 #### [facility] Laboratory [address] [place], [address] WBC 25-50 SEEN Normal 0-5 [facility] Comment on above: Order Comment: MADDISON CTOR TO SPECIFY Performed By: #### L 400.0001 #### [facility] Laboratory [address] [place], [address] BACTERIA 1+ /hpf Normal None Seen [facility] Comment on above: Order Comment: MADDISON CTOR TO SPECIFY Performed By: #### L 400.0001 #### [facility] Laboratory [address] [place], [address] EPI,SQUAMOUS 5-10 SEEN Normal 5-10 [facility] Comment on above: Order Comment: MADDISON CTOR TO SPECIFY Performed By: #### L 400.0001 #### [facility] Laboratory [address] [place], [address] Mucus Ql (Urine sed) 0 SEEN Normal [facility] Comment on above: Order Comment: MADDISON CTOR TO SPECIFY Performed By: #### L 400.0001 #### [facility] [address] [place], [address] Basic metabolic 2000 panelon 04-02-2024 Anion gap [Moles/Vol] 12 mmol/L [email or web address] Calcium [Mass/Vol] 9.2 mg/dL 8.5 - 9.9 mg/dL [email or web address] Chloride [Moles/Vol] 99 mmol/L [email or web address] CO2 [Moles/Vol] 23 mmol/L [facility] [employer] Creatinine [Mass/Vol] 1.06 mg/dL High 0.50 - 0.90 mg/dL [email or web address] GFR/1.73 sq M.predicted among non-blacks MDRD (S/P/Bld) [Vol rate/Area] 63.0 mL/min/{1.73_m2} 60 - [facility] Comment on above: Pediatric calculator link https://www.kidney.org/professionals/kdoqi/gfr_calculatorped [...] 211 mg/dL High 70 - 99 mg/dL [facility] Interpretation and review of laboratory results Abnormal [facility] Potassium [Moles/Vol] 4.6 mmol/L [facility] Sodium [Moles/Vol] 134 mmol/L Low [facility] Urea nitrogen [Mass/Vol] 21 mg/dL High 6 - 20 mg/dL [facility] CBC W Auto Differential pane l (Bld)on 04-02-2024 Basophils (Bld) [#/Vol] 0.1 10*3/uL 0.0 - 0.2 K/uL [facility] Basophils/100 WBC (Bld) 0.5 % B ON [facility] Eosinophils (Bld) [#/Vol] 0.4 10*3/uL 0.0 - 0.7 K/uL [facility] Eosinophils/100 WBC (Bld) 3.0 % [facility] Erythrocyte distribution width (RBC) [Ratio] 12.9 % 11.5 - 14.5 % [facility] Hematocrit (Bld) [Volume fraction] 39.3 % 37.0 - 47.0 % [facility] Hemoglobin (Bld) [Mass/Vol] 12.9 g/dL 12.0 - 16.0 g/dL [facility] Interpretation and review of laboratory results Abnormal [facility] Lymphocytes (Bld) [#/Vol] 3.0 10*3/uL 1.0 - 4.8 K/uL [facility] Lymphocytes/100 WBC (Bld) 24.4 % [facility] MCH (RBC) [Entitic mass] 28.7 pg 27.0 - 31.3 pg [facility] MCHC (RBC) [Mass/Vol] 32.8 % Low 33.0 - 37.0 % [facility] MCV (RBC) [Entitic vol] 87.5 fL 79.4 - 94.8 fL [facility] Monocytes (Bld) [#/Vol] 1.1 10*3/uL High 0.2 - 0.8 K/uL [facility] Monocytes/100 WBC (Bld) 8.6 % B ON [facility] Neutrophils (Bld) [#/Vol] 7.8 10*3/uL High 1.4 - 6.5 K/uL [facility] Platelets (Bld) [#/Vol] 353 10*3/uL 130 - 400 K/uL [facility] RBC (Bld) [#/Vol] 4.49 10*6/uL [facility] Segmented neutrophils/100 WBC (Bld) 63.1 % [facility] WBC (Bld) [#/Vol] 12.3 10*3/uL High 4.8 - 10.8 K/uL [facility] EKG Rhythm Stripon MS [facility] POCT Glucoseon 04-02-2024 Glucose [Mass/Vol] 259 mg/dL High 70 - 99 mg/dl [facility] Interpretation and review of laboratory results Abnormal [facility] Performed on [facility] [facility] Glucose [Mass/Vol] 189 mg/dL High 70 - 99 mg/dl [facility] Interpretation and review of laboratory results Abnormal [facility] Performed on ACCU-CHEK [facility] ANTI-DNA ANTIBODY, DOUBLE-ST RANDEDon 04-01-2024 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 Specimens are initially screened by enzyme-linked immunosorbent assay (TEE). If ordered as reflex ([id number]), positive TEE results (>24 IU) will be [...] recommendations for testing may be found at [email or web address]. Performed by [facility], [address] [place] [id number] [email or web address], Estevan Orozco MD, Lab. Director [facility] Number: [id number] DNA double strand Ab IF Crit hidia luciliae (S) [Titer]on 04-01-2024 [facility] EKG Rhythm Stripon 4 [facility] Lupus Anticoagulant Reflex P anelon 04-01-2024 aPTT.lupus sensitive Coag (PPP) [Time] Not performed NINF - 1.20 [facility] aPTT.lupus sensitive/aPTT.lupus sensitive W excess phospholipid Coag (PPP) [Ratio] 1.10 NINF - 1.20 [facility] dRVVT w 1:1 PNP Coag (PPP) [Time] 1.20 NINF - 1.20 [facility] dRVVT W excess hexagonal phase phospholipid Coag (PPP) [Time] Not performed NINF - 7.9 s [facility] dRVVT/dRVVT.excess phospholipid Coag (PPP) [Ratio] 1.24 High NINF - 1.20 [facility] dRVVT/dRVVT.excess phospholipid Coag (PPP) [Ratio] 1.00 NINF - 1.20 [facility] Heparin neutralization Ql (PPP) Not performed Not Performed [facility] Interpretation and review of laboratory results Abnormal [facility] Low molecular weight heparin induced platelet Ab Ql (S) Not Present Not Present [facility] Lupus anticoagulant three screening tests W Reflex Coag (PPP) [Interp] See Note [facility] Comment on above: Lupus anticoagulant not detected. [...] developed and its performance characteristics determined by [facility]. It has not been cleared or approved by the U.S. Food and Drug Administration. This test was performed in a CLIA-certified laboratory and is intended for clinical purposes. Performed By: [facility] [address] [place] [id number] [employer] Supervisor: Shine Hinton MD, PhD CLIA Number: [id number] Neutralized dRVVT Screen Ratio Not performed NINF - 1.20 [facility] PT Coag (PPP) [Time] 14.1 s 12.0 - 15.5 s [facility] Thrombin time Coag (PPP) [Time] Not performed NINF - 19.5 s [facility] POCT Glucoseon 04-01-2024 Glucose [Mass/Vol] 217 mg/dL High 70 - 99 mg/dl [facility] Interpretation and review of laboratory results Abnormal [facility] Performed on ACCU-CHEK [facility] Glucose [Mass/Vol] 324 mg/dL High 70 - 99 mg/dl [facility] Interpretation and review of laboratory results Abnormal [facility] Performed on ACCU-CHEK [facility] Glucose [Mass/Vol] 179 mg/dL High 70 - 99 mg/dl [facility] Interpretation and review of laboratory results Abnormal [facility] Performed on ACCU-CHEK [facility] US Heart Transesophagealon 0 04-01-2024 Body surface area Derived from formula 2.2 m2 [facility] MR Radius PISA 0.59 cm [facility] MR Regurg Volume PISA 18.83 mL [facility] MR VTI 104.6 cm [facility] MV EROA PISA 0.2 cm2 [facility] MV Nyquist Velocity 28 cm/s [facility] MV Regurg Velocity PISA 3.4 m/s B [facility] Addendum by Fara Newman DO on 04/01/2024 3:08 PM EDT Left [...] 095. ANNY probe was inserted by the attending anesthesiologist with minimal difficulty. Benzocaine spray topical anesthetic [...] The left ventricular wall motion is normal. [facility] Radiology Study observation (narrative) [facility] Basic metabolic 2000 panelon 03-31-2024 Anion gap [Moles/Vol] 14 mmol/L [facility] Calcium [Mass/Vol] 9.4 mg/dL 8.5 - 9.9 mg/dL [facility] Chloride [Moles/Vol] 100 mmol/L [facility] CO2 [Moles/Vol] 21 mmol/L [facility] Creatinine [Mass/Vol] 1.23 mg/dL High 0.50 - 0.90 mg/dL [facility] GFR/1.73 sq M.predicted among non-blacks MDRD (S/P/Bld) [Vol rate/Area] 52.7 mL/min/{1.73_m2} Low 60 - PINF [facility] Comment on above: Pediatric calculator link https://www.kidney.org/professionals/kdoqi/gfr_calculatorped [...] 182 mg/dL High 70 - 99 mg/dL [facility] Interpretation and review of laboratory results Abnormal [facility] Potassium [Moles/Vol] 4.4 mmol/L [facility] Sodium [Moles/Vol] 135 mmol/L [facility] Urea nitrogen [Mass/Vol] 28 mg/dL High 6 - 20 mg/dL [facility] CBC W Auto Differential pane l (Bld)on 03-31-2024 Basophils (Bld) [#/Vol] 0.1 10*3/uL 0.0 - 0.2 K/uL [facility] Basophils/100 WBC (Bld) 0.7 % [facility] Eosinophils (Bld) [#/Vol] 0.2 10*3/uL 0.0 - 0.7 K/uL [facility] Eosinophils/100 WBC (Bld) 1.6 % [facility] Erythrocyte distribution width (RBC) [Ratio] 13.2 % 11.5 - 14.5 % [facility] Hematocrit (Bld) [Volume fraction] 38.5 % 37.0 - 47.0 % [facility] Hemoglobin (Bld) [Mass/Vol] 12.7 g/dL 12.0 - 16.0 g/dL [facility] Interpretation and review of laboratory results Abnormal [facility] Lymphocytes (Bld) [#/Vol] 2.8 10*3/uL 1.0 - 4.8 K/uL [facility] Lymphocytes/100 WBC (Bld) 20.9 % [facility] MCH (RBC) [Entitic mass] 29.0 pg 27.0 - 31.3 pg [facility] MCHC (RBC) [Mass/Vol] 33.0 % 33.0 - 37.0 % [facility] MCV (RBC) [Entitic vol] 87.9 fL 79.4 - 94.8 fL [facility] Monocytes (Bld) [#/Vol] 1.0 10*3/uL High 0.2 - 0.8 K/uL [facility] Monocytes/100 WBC (Bld) 7.2 % [facility] Neutrophils (Bld) [#/Vol] 9.4 10*3/uL High 1.4 - 6.5 K/uL [facility] Platelets (Bld) [#/Vol] 367 10*3/uL 130 - 400 K/uL [facility] RBC (Bld) [#/Vol] 4.38 10*6/uL [facility] Segmented neutrophils/100 WBC (Bld) 69.0 % [facility] WBC (Bld) [#/Vol] 13.6 10*3/uL High 4.8 - 10.8 K/uL [facility] CT Head WO contraston 2023 Low-attenuation areas identified within the bilateral occipital lobes representing areas of evolving infarction. No acute intracranial hemorrhage, new mass effect or midline shift. [facility] RADIOLOGY EXAMINATION: CT OF THE HEAD WITHOUT [...] Reason for exam:->f/u heamorrhagic transformation Has a code stroke or stroke alert been called?->No What reading provider will be [...] of the visualized skull or soft tissues. [facility] Candy Ha MD - 03/31/2024 EXAMINATION: [...] Reason for exam:->f/u heamorrhagic transformation Has a code stroke or stroke alert been called?->No What reading provider will be [...] hemorrhage, new mass effect or midline shift. [facility] Radiology Study observation (narrative) [facility] CT Head WO contrastOrdered B y: Candy Ha on 03-31-2024 [facility] Work Phone: EKG Rhythm Stripon 4 [facility] SY [facility] MPO/VA-3(ANCA) ABSon 024 Myeloperoxidase Ab Qn (S) 0 AU/mL 0 - 19 AU/mL [facility] Comment on above: INTERPRETIVE INFORMA TION: Myeloperoxidase Abs, IgG 19 AU/mL or Less ......... Negative 20-25 AU/mL .............. Equivocal 26 AU/mL or Greater ...... Positive Approximately 90% of patients with a P-ANCA pattern by IFA have antibodies specific for MPO. Proteinase 3 Ab Qn (S) 1 AU/mL 0 - 19 AU/mL [facility] Comment on above: INTERPRETIVE INFORMA TION: Serine Proteinase 3, IgG 19 AU/mL or Less ........ Negative 20-25 AU/mL ............. Equivocal 26 AU/mL or Greater ..... Positive Approximately 85% of patients with a C-ANCA pattern by IFA have antibodies specific for PR3. Performed By: [facility] [address] [place] [address] [employer] Supervisor: Shine Hinton MD, PhD CLIA Number: [id number] [facility] POCT Glucoseon 03-31-2024 Glucose [Mass/Vol] 254 mg/dL High 70 - 99 mg/dl [facility] Interpretation and review of laboratory results Abnormal [facility] Performed on ACCU-CHEK [facility] Glucose [Mass/Vol] 350 mg/dL High 70 - 99 mg/dl [facility] Interpretation and review of laboratory results Abnormal [facility] Performed on ACCU-CHEK [facility] Glucose [Mass/Vol] 184 mg/dL High 70 - 99 mg/dl [facility] Interpretation and review of laboratory results Abnormal [facility] Performed on ACCU-CHEK [facility] Glucose [Mass/Vol] 164 mg/dL High 70 - 99 mg/dl [facility] Interpretation and review of laboratory results Abnormal [facility] Performed on ACCU-CHEK [facility] Glucose [Mass/Vol] 137 mg/dL High 70 - 99 mg/dl [facility] Interpretation and review of laboratory results Abnormal [facility] Performed on ACCU-CHEK [facility] Glucose [Mass/Vol] 135 mg/dL High 70 - 99 mg/dl [facility] Interpretation and review of laboratory results Abnormal [facility] Performed on ACCU-CHEK [facility] Bacteria identified Cx Nom ( U)on 03-30-2024 ORDER#: [id number] ORDERED BY: MEG MATAMOROS SOURCE: Urine Clean Catch COLLECTED: 03/29/24 08:37 ANTIBIOTICS AT DOV.: RECEIVED : 03/29/24 08:37 [facility] CARDIOLIPIN ANTIBODIES IGG & IGMon 03-30-2024 Cardiolipin IgG IA Qn (S) [facility] Comment on above: INTERPRETIVE INFORMA TION: [...] tests. Cardiolipin IgM IA Qn (S) 11 [facility] Comment on above: INTERPRETIVE INFORMA TION: [...] other criteria phospholipid antibody tests. Performed By: [facility] [address] [place] [id number] [employer] Supervisor: Shine Hniton MD, PhD CLIA Number: [id number] [facility] CBC W Auto Differential pane l (Bld)on 03-30-2024 Basophils (Bld) [#/Vol] 0.0 10*3/uL 0.0 - 0.2 K/uL [facility] Basophils/100 WBC (Bld) 0.2 % [facility] Eosinophils (Bld) [#/Vol] 0.0 10*3/uL 0.0 - 0.7 K/uL [facility] Eosinophils/100 WBC (Bld) 0.1 % [facility] Erythrocyte distribution width (RBC) [Ratio] 13.2 % 11.5 - 14.5 % [facility] Hematocrit (Bld) [Volume fraction] 35.6 % Low 37.0 - 47.0 % [facility] Hemoglobin (Bld) [Mass/Vol] 11.9 g/dL Low 12.0 - 16.0 g/dL [facility] Interpretation and review of laboratory results Abnormal [facility] Lymphocytes (Bld) [#/Vol] 2.2 10*3/uL 1.0 - 4.8 K/uL [facility] Lymphocytes/100 WBC (Bld) 10.8 % [facility] MCH (RBC) [Entitic mass] 29.0 pg 27.0 - 31.3 pg [facility] MCHC (RBC) [Mass/Vol] 33.4 % 33.0 - 37.0 % [facility] MCV (RBC) [Entitic vol] 86.8 fL 79.4 - 94.8 fL [facility] Monocytes (Bld) [#/Vol] 1.3 10*3/uL High 0.2 - 0.8 K/uL [facility] Monocytes/100 WBC (Bld) 6.6 % [facility] Neutrophils (Bld) [#/Vol] 16.3 10*3/uL High 1.4 - 6.5 K/uL [facility] Platelets (Bld) [#/Vol] 362 10*3/uL 130 - 400 K/uL [facility] RBC (Bld) [#/Vol] 4.10 10*6/uL Low [facility] Segmented neutrophils/100 WBC (Bld) 81.7 % [facility] WBC (Bld) [#/Vol] 20.0 10*3/uL High 4.8 - 10.8 K/uL [facility] Comprehensive metabolic 2000 panelon 03-30-2024 Albumin [Mass/Vol] 3.1 g/dL Low 3.5 - 4.6 g/dL [facility] ALP [Catalytic activity/Vol] 173 U/L High 40 - 130 U/L [facility] ALT [Catalytic activity/Vol] 55 U/L High 0 - 33 U/L [facility] Anion gap [Moles/Vol] 15 mmol/L [facility] AST [Catalytic activity/Vol] 21 U/L 0 - 35 U/L [facility] Bilirubin [Mass/Vol] 0.3 mg/dL 0.2 - 0 .7 mg/dL [facility] Calcium [Mass/Vol] 9.3 mg/dL 8.5 - 9.9 mg/dL [facility] Chloride [Moles/Vol] 104 mmol/L [facility] CO2 [Moles/Vol] 19 mmol/L Low [facility] Creatinine [Mass/Vol] 1.25 mg/dL High 0.50 - 0.90 mg/dL [facility] GFR/1.73 sq M.predicted among non-blacks MDRD (S/P/Bld) [Vol rate/Area] 51.7 mL/min/{1.73_m2} Low 60 - PINF [facility] Comment on above: Pediatric calculator link https://www.kidney.org/professionals/kdoqi/gfr_calculatorped [...] 4.6 g/dL High 2.3 - 3.5 g/dL [facility] Glucose [Mass/Vol] 174 mg/dL High 70 - 99 mg/dL [facility] Potassium [Moles/Vol] 4.5 mmol/L [facility] Protein [Mass/Vol] 7.7 g/dL 6.3 - 8.0 g/dL [facility] Sodium [Moles/Vol] 138 mmol/L [facility] Urea nitrogen [Mass/Vol] 29 mg/dL High 6 - 20 mg/dL [facility] Culture, Urineon 03-30-2024 Bacteria identified Cx Nom (U) Cult,Urine: NO SIGNIFICANT GROWTH Performed at [address] [address] ([phone] [facility] EKG Rhythm Stripon 4 IN US [facility] SY [facility] MRI [facility] MB [facility] Hepatitis Panel, Acuteon HAV IgM IA Qn (S) Non-Reactive NR [facility] Comment on above: Performed at [facility], [address] [place] [id number] . Hep B Core Ab, IgM Non-Reactive NR [facility] Hepatitis B Surface Ag Non-Reactive NR [facility] Hepatitis C Ab Non-Reactive NR [facility] Comment on above: The [...] recommended by ordering HCV RNA by PCR. [facility] Homocysteineon 03-30-2024 Homocysteine 15.0 umol/L 0.0 - 15.0 umol/L [facility] Comment on above: Performed at [address] [address] . [facility] Lipid Panelon 03-30-2024 Cholesterol [Mass/Vol] 97 mg/dL 0 - 1 99 mg/dL [facility] Comment on above: ATP III Cholesterol classification is Desirable. Cholesterol in HDL [Mass/Vol] 24 mg/dL Low 40 - 59 mg/dL [facility] Comment on above: ATP III HDL Cholestr [...] [Mass/Vol] 42 mg/dL 0 - 129 mg/dL [facility] Comment on above: ATP III LDL Classifi cation is Optimal. Triglyceride [Mass/Vol] 156 mg/dL High 0 - 150 mg/dL [facility] Comment on above: ATP III Triglyceride s [...] to be communicated to a licensed caregiver. [facility] RADI[facility] EXAMINATION: MRI OF THE BRAIN WITHOUT [...] The soft tissues demonstrate no acute abnormality. [facility] Aguilar Jones MD - 03/30/2024 EXAMINATION: [...] to be communicated to a licensed caregiver. 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 [facility] EXAMINATION: MRA OF THE HEAD WITHOUT CONTRAST 03/30/2024 11:20 am TECHNIQUE: MRA of the head was performed utilizing [id number] imaging with MIP images. No intravenous contrast [...] evidence of an aneurysm or vascular malformation. [facility] Aguilar Jones MD - 03/30/2024 EXAMINATION: MRA OF THE HEAD WITHOUT CONTRAST 03/30/2024 11:20 am TECHNIQUE: MRA of the head was performed utilizing [id number] imaging with MIP images. No intravenous contrast [...] cerebral infarct seen on the MRI study. [facility] Radiology Study observation (narrative) [facility] No Panel Informationon 03-30 Interpretation and review of laboratory results Abnormal [facility] POCT Glucoseon 03-30-2024 Glucose [Mass/Vol] 276 mg/dL High 70 - 99 mg/dl [facility] Interpretation and review of laboratory results Abnormal [facility] Performed on ACCU-CHEK [facility] Glucose [Mass/Vol] 214 mg/dL High 70 - 99 mg/dl [facility] Interpretation and review of laboratory results Abnormal [facility] Performed on ACCU-CHEK [facility] Glucose [Mass/Vol] 207 mg/dL High 70 - 99 mg/dl [facility] Interpretation and review of laboratory results Abnormal [facility] Performed on ACCU-CHEK [facility] Glucose [Mass/Vol] 161 mg/dL High 70 - 99 mg/dl [facility] Interpretation and review of laboratory results Abnormal [facility] Performed on ACCU-CHEK [facility] POCT Venouson 03-30-2024 Creatinine [Mass/Vol] 1.6 mg/dL High 0.6 - 1.2 mg/dL [facility] GFR/1.73 sq M.predicted among non-blacks MDRD (S/P/Bld) [Vol rate/Area] 38 mL/min/{1.73_m2} Abnormal 60 - PINF [facility] Comment on above: Pediatric calculator link https://www.kidney.org/professionals/kdoqi/gfr_calculatorped [...] Interpretation and review of laboratory results Abnormal [facility] [employer] Performed on SEE BELOW [facility] Comment on above: Performed on POC Sample Type FLY [facility] Troponinon 03-30-2024 Interpretation and review of laboratory results Abnormal [facility] Troponin, High Sensitivity 170 ng/L Critically high 0 - 19 ng/L [facility] Comment on above: High Sensitivity Tro ponin values cannot be compared with other Troponin methodologies. CALL [facility] tel. [phone], ADC5 results called to and read back by MISTI SAUCEDO RN, 03/30/2024 00:25, by [facility] Retroperitoneum limitedon 03-30-2024 Unremarkable ultrasound of the kidneys. [facility] RAD[facility] EXAMINATION: ULTRASOUND OF THE KIDNEYS 03/30/2024 [...] hydronephrosis or intrarenal stones. No focal lesions. [facility] Teddy Ibrahim MD - 03/30/2024 EXAMINATION: [...] lesions. IMPRESSION: Unremarkable ultrasound of the kidneys. [facility] Radiology Study observation (narrative) [facility] Retroperitoneum limitedOr dered By: Teddy Ibrahim on 03-30-2024 [facility] Work Phone: Basic metabolic 2000 panelon 03-29-2024 Anion gap [Moles/Vol] 13 mmol/L [facility] Calcium [Mass/Vol] 8.8 mg/dL 8.5 - 9.9 mg/dL [facility] Chloride [Moles/Vol] 97 mmol/L [facility] CO2 [Moles/Vol] 18 mmol/L Low [facility] Creatinine [Mass/Vol] 1.43 mg/dL High 0.50 - 0.90 mg/dL [facility] GFR/1.73 sq M.predicted among non-blacks MDRD (S/P/Bld) [Vol rate/Area] 44.0 mL/min/{1.73_m2} Low 60 - PINF [facility] Comment on above: Pediatric calculator link https://www.kidney.org/professionals/kdoqi/gfr_calculatorped [...] 277 mg/dL High 70 - 99 mg/dL [facility] Interpretation and review of laboratory results Abnormal [facility] Potassium [Moles/Vol] 4.4 mmol/L [facility] Sodium [Moles/Vol] 128 mmol/L Low [facility] Urea nitrogen [Mass/Vol] 32 mg/dL High 6 - 20 mg/dL [facility] Beta-Hydroxybutyrateon 03-29 Beta hydroxybutyrate [Moles/Vol] 1.7 mg/dL 0.2 - 2.8 mg/dL [facility] Brain Natriuretic Peptideon 03-29-2024 Natriuretic peptide B (Bld) [Mass/Vol] 4153 pg/mL [facility] Comment on above: NT-pro BNP ACUTE Int [...] l (Bld)on 03-29-2024 Anisocytosis Ql (Bld) 1+ [facility] Basophils (Bld) [#/Vol] 0.0 10*3/uL 0.0 - 0.2 K/uL [facility] Basophils/100 WBC (Bld) 0.3 % [facility] Eosinophils (Bld) [#/Vol] 0.0 10*3/uL 0.0 - 0.7 K/uL [facility] Eosinophils/100 WBC (Bld) 0.4 % [facility] Erythrocyte distribution width (RBC) [Ratio] 13.0 % 11.5 - 14.5 % [facility] Hematocrit (Bld) [Volume fraction] 40.7 % 37.0 - 47.0 % [facility] Hemoglobin (Bld) [Mass/Vol] 14.0 g/dL 12.0 - 16.0 g/dL [facility] Interpretation and review of laboratory results Abnormal [facility] Lymphocytes (Bld) [#/Vol] 3.7 10*3/uL 1.0 - 4.8 K/uL [facility] Lymphocytes/100 WBC (Bld) 14.0 % [facility] MCH (RBC) [Entitic mass] 29.8 pg 27.0 - 31.3 pg [facility] MCHC (RBC) [Mass/Vol] 34.4 % 33.0 - 37.0 % [facility] MCV (RBC) [Entitic vol] 86.6 fL 79.4 - 94.8 fL [facility] Monocytes (Bld) [#/Vol] 0.5 10*3/uL 0.2 - 0.8 K/uL [facility] Monocytes/100 WBC (Bld) 1.9 % B ON [facility] Neutrophils (Bld) [#/Vol] 20.5 10*3/uL High 1.4 - 6.5 K/uL [facility] Platelets (Bld) [#/Vol] 376 10*3/uL 130 - 400 K/uL [facility] Platelets LM Ql (Bld) Adequate [facility] RBC (Bld) [#/Vol] 4.70 10*6/uL [facility] Segmented neutrophils/100 WBC (Bld) 83.0 % [facility] SLIDE REVIEW see below [facility] Comment on above: Slide review agrees with reported results Smudge cells LM Ql (Bld) 1.0 [facility] Variant lymphocytes/100 WBC (Bld) 1 % [facility] WBC (Bld) [#/Vol] 24.7 10*3/uL High 4.8 - 10.8 K/uL [facility] CT Head WO contraston 2023 Radiology Study observation (narrative) [facility] [employer] [facility] Cardiac echo study Procedure on 03-29-2024 AV Area by Peak Velocity 2.1 cm2 [facility] Area by VTI 2.1 cm2 [facility] AV Cusp Mmode 1.4 cm [facility] AV Mean Gradient 7 mmHg [facility] AV Mean Velocity 1.2 m/s [facility] AV Peak Gradient 13 mmHg [facility] AV Peak Velocity 1.8 m/s [facility] AV Velocity Ratio 0.67 [facility] AV VTI 34.0 cm [facility] STEVE/BSA Peak Velocity 1.0 cm2/m2 [facility] STEVE/BSA VTI 1.0 cm2/m2 [facility] Body surface area Derived from formula 2.2 m2 [facility] E/E' Lateral 27.20 [facility] E/E' Ratio (Averaged) 24.93 [facility] E/E' Septal 22.67 [facility] EF BP 64 % 55 - 100 % [facility] Est. RA Pressure 3 mmHg [facility] [employer] Fractional Shortening 2D 30 % 28 - 44 % [facility] Interpretation and review of laboratory results Abnormal [facility] IVSd 1.3 cm Abnormal 0.6 - 0.9 cm [facility] IVSs 1.9 cm [facility] [place] Diameter 4.4 cm [facility] Size Index 2.10 cm/m2 [facility] Volume A-L A4C 65 mL Abnormal 22 - 52 mL [facility] Volume A-L A4C 55 mL Abnormal 22 - 52 mL [facility] [employer] [place] Volume A/L 61 mL [facility] Volume Index A-L A2C 31 mL/m2 16 - 34 mL/m2 [facility] Volume Index A-L A4C 26 mL/m2 16 - 34 mL/m2 [facility] Volume Index A/L 29 mL/m2 16 - 34 mL/m2 [facility] Volume Index MOD A2C 30 ml/m2 16 - 34 ml/m2 [facility] Volume Index MOD A4C 24 ml/m2 16 - 34 ml/m2 [facility] Volume MOD A2C 62 mL Abnormal 22 - 52 mL [facility] [employer] [place] Volume MOD A4C 51 mL 22 - 52 mL [facility] [employer] LV E' Lateral Velocity 5 cm/s [facility] [employer] LV E' Septal Velocity 6 cm/s [facility] LV EDV A2C 110 mL [facility] LV EDV A4C 112 mL [facility] [employer] [facility] LV EDV BP 112 mL Abnormal 56 - 104 mL [facility] [employer] [facility] LV EDV Index A2C 52 mL/m2 [facility] [employer] [facility] LV EDV Index A4C 53 mL/m2 [facility] [employer] [facility] LV EDV Index BP 53 mL/m2 [facility] [employer] LV Ejection Fraction A2C 68 % [facility] LV Ejection Fraction A4C 57 % [facility] LV ESV A2C 35 mL [email or web address] LV ESV A4C 49 mL [facility] [employer] LV ESV BP 41 mL 19 - 49 mL [facility] [employer] LV ESV Index A2C 17 mL/m2 [facility] [employer] LV ESV Index A4C 23 mL/m2 [facility] LV ESV Index BP 20 mL/m2 [facility] [employer] LV Mass 2D 233.7 g Abnormal 67 - 162 g [facility] LV Mass 2D Index 111.3 g/m2 Abnormal 43 - 95 g/m2 [facility] [employer] LV RWT Ratio 0.44 [facility] LVIDd 5.0 cm 3.9 - 5.3 cm [facility] LVIDd Index 2.38 cm/m2 [facility] [employer] LVIDs 3.5 cm [facility] LVIDs Index 1.67 cm/m2 [facility] [employer] LVOT Area 3.1 cm2 [facility] [employer] LVOT Diameter 2.0 cm [facility] [employer] LVOT Mean Gradient 3 mmHg [facility] [employer] LVOT Peak Gradient 6 mmHg [facility] LVOT Peak Velocity 1.2 m/s [facility] [employer] LVOT Stroke Volume Index 35.1 mL/m2 [facility] [employer] LVOT SV 73.8 ml [facility] [employer] LVOT VTI 23.5 cm [facility] [employer] LVOT:AV VTI Index 0.69 [facility] [employer] LVPWd 1.1 cm Abnormal 0.6 - 0.9 cm [facility] [employer] LVPWs 2.1 cm [facility] MR Radius PISA 0.59 cm [facility] [employer] MR Regurg Volume PISA 20.42 mL [facility] [employer] MR VTI 141.5 cm [facility] [employer] MV A Velocity 1.13 m/s [facility] [employer] MV Area by VTI 1.6 cm2 [facility] [employer] MV E Velocity 1.36 m/s [facility] [employer] MV E Wave Deceleration Time 286.5 ms [facility] [employer] MV E/A 1.20 [facility] [employer] MV EROA PISA 0.1 cm2 [facility] [employer] MV Max Velocity 1.5 m/s [facility] [employer] MV Mean Gradient 4 mmHg DIPAK BOYKINO KEVIN [facility] [employer] MV Mean Velocity 0.9 m/s DIPAK BOYKINO KEVIN [facility] MV Nyquist Velocity 33 cm/s BON S ANCELMO [facility] [employer] MV Peak Gradient 9 mmHg [facility] K[facility]IN [employer] MV Regurg Velocity PISA 5.0 m/s B [facility] [employer] MV VTI 45.9 cm DIPAK [facility] [employer] MV:LVOT VTI Index 1.95 [facility] [employer] PV Max Velocity 1.1 m/s [facility] RS [facility] [employer] PV Peak Gradient 4 mmHg DIPAK SEC[facility] KEVIN [facility] RVIDd 3.4 cm [facility] RVSP 31 mmHg DIPAK [facility] [employer] TAPSE 1.8 cm 1.7 cm [facility] TR Max Velocity 2.65 m/s DIPAK HERNANDEZ RS [employer] TR Peak Gradient 28 mmHg DIPAK [place] KEVIN [employer] Left Ventricle: Normal left ventricular systolic function [...] Image quality: adequate. No contrast was given. BS CV CPACS [facility] Radiology Study observation (narrative) DIPAK [facility] Comprehensive metabolic 2000 panelon 03-29-2024 Albumin [Mass/Vol] 3.5 g/dL 3.5 - 4.6 g/dL [facility] ALP [Catalytic activity/Vol] 223 U/L High 40 - 130 U/L [facility] ALT [Catalytic activity/Vol] 85 U/L High 0 - 33 U/L [facility] Anion gap [Moles/Vol] 16 mmol/L High [facility] AST [Catalytic activity/Vol] 36 U/L High 0 - 35 U/L [facility] Bilirubin [Mass/Vol] 0.7 mg/dL 0.2 - 0 .7 mg/dL [facility] Calcium [Mass/Vol] 9.9 mg/dL 8.5 - 9.9 mg/dL [facility] Chloride [Moles/Vol] 97 mmol/L [facility] CO2 [Moles/Vol] 19 mmol/L Low [facility] Creatinine [Mass/Vol] 1.58 mg/dL High 0.50 - 0.90 mg/dL [facility] GFR/1.73 sq M.predicted among non-blacks MDRD (S/P/Bld) [Vol rate/Area] 39.0 mL/min/{1.73_m2} Low 60 - PINF [facility] Comment on above: Pediatric calculator link https://www.kidney.org/professionals/kdoqi/gfr_calculatorped [...] 4.8 g/dL High 2.3 - 3.5 g/dL [facility] Glucose [Mass/Vol] 206 mg/dL High 70 - 99 mg/dL [facility] Interpretation and review of laboratory results Abnormal [facility] Potassium [Moles/Vol] 4.2 mmol/L [facility] Protein [Mass/Vol] 8.3 g/dL High 6.3 - 8.0 g/dL [facility] Sodium [Moles/Vol] 132 mmol/L Low [facility] Urea nitrogen [Mass/Vol] 32 mg/dL High 6 - 20 mg/dL [facility] EKG 12 Leadon 03-29-2024 Atrial Rate 73 BPM [facility] P [place] 32 degrees [facility] P-R Interval 152 ms [facility] Q-T Interval 426 ms [facility] QRS Duration 92 ms [facility] QTc Calculation (Bazett) 469 ms [facility] R [place] 4 degrees [facility] T [place] 76 degrees [facility] Ventricular Rate 73 BPM [facility] Normal sinus rhythm Nonspecific T wave abnormality Prolonged QT Abnormal ECG When compared with ECG of 29-MAR-2024 08:10, No significant change was found Confirmed by GHADA PAL ([id number]) on 03/29/2024 4:14:34 PM Ghada Bella MD - 03/29/2024 Normal sinus rhythm Nonspecific T wave abnormality Prolonged QT Abnormal ECG When compared with ECG of 29-MAR-2024 08:10, No significant change was found Confirmed by GHADA PAL ([id number]) on 03/29/2024 4:14:34 PM [facility] Normal sinus rhythm Anterior infarct , age undetermined Abnormal ECG When compared with ECG of 05-APR-2022 05:28, Anterior infarct is now present Confirmed by GHADA PAL ([id number]) on 03/29/2024 4:14:26 PM Ghada Bella MD - 03/29/2024 Normal sinus rhythm Anterior infarct , age undetermined Abnormal ECG When compared with ECG of 05-APR-2022 05:28, Anterior infarct is now present Confirmed by GHADA PAL ([id number]) on 03/29/2024 4:14:26 PM [facility] EKG 12 LeadOrdered By: Dean Pal on 03-29-2024 Atrial Rate 78 BPM [facility] [employer] Work Phone: P [place] 24 degrees [employer] Work Phone: P-R Interval 156 ms [employer] Work Phone: Q-T Interval 420 ms [employer] Work Phone: QRS Duration 94 ms [employer] Work Phone: QTc Calculation (Bazett) 478 ms [employer] Work Phone: R [place] -17 degrees [employer] Work Phone: T [place] 76 degrees [employer] Work Phone: Ventricular Rate 78 BPM [facility] [employer] Work Phone: [employer] Work Phone: ESR Westergren method (Bld) [Velocity]on 03-29-2024 ESR (Bld) [Velocity] 87 mm High 0 - 30 mm [facility] [employer] Comment on above: ESR Units mm/Hr Interpretation and review of laboratory results Abnormal [facility] ETOHon 03-29-2024 Ethanol percent Not indicated G/dL [facility] [employer] Ethanolamine [Mass/Vol] <10 mg/dL B [facility] Hemoglobin A1Con 03-29-2024 Glucose [Mass/Vol] 324 mg/dL [facility] [employer] Comment on above: The ADA and AACC rec ommend providing the estimated average glucose result to permit better patient understanding of their HBA1c result. Performed at [facility], [address] [place] [id number] . HbA1c (Bld) [Mass fraction] 12.9 % High 4.0 - 6.0 % [facility] Interpretation and review of laboratory results Abnormal [facility] [employer] Lactate, Sepsison 03-29-2024 Lactic Acid, Sepsis 1.2 mmol/L 0.5 - 1. 9 mmol/L [facility] Lactic Acid, Sepsis 1.4 mmol/L 0.5 - 1. 9 mmol/L [facility] Magnesiumon 03-29-2024 Magnesium [Mass/Vol] 2.3 mg/dL 1.7 - 2 .4 mg/dL [facility] Microscopic Urinalysison Bacteria LM Ql (Urine sed) Negative Negative /HPF [facility] Epithelial cells Auto (Urine sed) [#/Area] 10-20 [facility] Hyaline casts Auto (Urine sed) [#/Area] 1-3 [facility] Interpretation and review of laboratory results Abnormal [facility] RBC LM.HPF (Urine sed) [#/Area] 5-10 Abnormal [facility] WBC Auto (Urine sed) [#/Area] >100 High [facility] No Panel Informationon 03-29 [facility] 1. Chronic right and subacute left parietooccipital [...] SANGEETA Gonzalez at 9:45 a.m. on 03/29/2024. [facility] RAD[facility] EXAMINATION: CTA OF THE HEAD WITHOUT [...] headache, cva/bleed/trauma TECHNOLOGIST PROVIDED HISTORY: Has a code stroke or stroke alert been called?->No Reason for exam:->headache Decision Support [...] venous sinus thrombosis on this non-dedicated study. [facility] Roger Dan MD - 03/29/2024 EXAMINATION: [...] headache, cva/bleed/trauma TECHNOLOGIST PROVIDED HISTORY: Has a code stroke or stroke alert been called?->No Reason for exam:->headache Decision Support [...] cavernous right in (more content not included)... [facility] tel. [phone], TROP results called to ED and read back by Yelitza Her, 03/29/2024 08:43, by [facility] Radiology Study observation (narrative) [facility] Interpretation and review of laboratory results Abnormal [facility] CALL [facility] tel. [phone], TROP results called to ED and read back by Yelitza Her, 03/29/2024 08:43, by [facility] No Panel InformationOrdered By: Roger Dan on 03-29-2024 [facility] Work Phone: POCT CreatinineOrdered By: Viji Oneal on 03-29-2024 Interpretation and review of laboratory results Normal [facility] POC CREATININE WHOLE BLOOD 1.6 [facility] POCT Glucoseon 03-29-2024 Glucose [Mass/Vol] 285 mg/dL High 70 - 99 mg/dl [facility] Interpretation and review of laboratory results Abnormal [facility] Performed on ACCU-CHEK [facility] Glucose [Mass/Vol] 365 mg/dL High 70 - 99 mg/dl [facility] Interpretation and review of laboratory results Abnormal [facility] Performed on ACCU-CHEK [facility] Glucose [Mass/Vol] 275 mg/dL High 70 - 99 mg/dl [facility] Interpretation and review of laboratory results Abnormal [facility] Performed on ACCU-CHEK [facility] Glucose [Mass/Vol] 214 mg/dL High 70 - 99 mg/dl [facility] Interpretation and review of laboratory results Abnormal [facility] Performed on ACCU-CHEK [facility] Portable XR Chest AP single viewon 03-29-2024 No acute cardiopulmonary disease. [facility] RADI[facility] EXAMINATION: ONE XRAY VIEW OF THE [...] There is no evidence of a pneumothorax. [facility] Alfredo Bell III, DO - 03/29/2024 [...] a pneumothorax. IMPRESSION: No acute cardiopulmonary disease. [facility] Radiology Study observation (narrative) [facility] Portable XR Chest AP single viewOrdered By: Alfredo Bell on 03-29-2024 [facility] Work Phone: Procalcitoninon 03-29-2024 Procalcitonin IA [Mass/Vol] 2.42 ng/mL High 0.00 - 0.15 ng/mL [facility] Comment on above: Suspected Sepsis: Low likelihood [...] to determine the patient's Mortality Risk Prognosis ([email or web address]) In healthy neonates, plasma Procalcitonin (PCT) concentrations increase gradually after , reaching peak values at about 24 hours of age then decrease to normal values below 0.5 ng/mL by 48-72 hours of age. Respiratory pathogens DNA an d RNA panel SHAI+non-probe (Nph)on 03-29-2024 Adenovirus DNA SHAI+non-probe Ql (Nph) Not detected Not Detected [facility] B. parapertussis [id number] DNA SHAI+non-probe Ql (Nph) Not detected Not Detected [facility] B. pertussis toxin promoter region SHAI+non-probe Ql (Nph) Not detected Not Detected [facility] C. pneumoniae DNA SHAI+non-probe Ql (Nph) Not detected Not Detected [facility] FLUAV RNA SHAI+non-probe Ql (Nph) Not detected Not Detected [facility] FLUBV RNA SHAI+non-probe Ql (Nph) Not detected Not Detected [facility] HCoV 229E RNA SHAI+non-probe Ql (Nph) Not detected Not Detected [facility] HCoV HKU1 RNA SHAI+non-probe Ql (Nph) Not detected Not Detected [facility] HCoV NL63 RNA SHAI+non-probe Ql (Nph) Not detected Not Detected [facility] HCoV OC43 RNA SHAI+non-probe Ql (Nph) Not detected Not Detected [facility] hMPV RNA SHAI+non-probe Ql (Nph) Not detected Not Detected [facility] M. pneumoniae DNA SHAI+non-probe Ql (Nph) Not detected Not Detected [facility] Parainfluenza virus 1 RNA SHAI+non-probe Ql (Nph) Not detected Not Detected [facility] Parainfluenza virus 2 RNA SHAI+non-probe Ql (Nph) Not detected Not Detected [facility] Parainfluenza virus 3 RNA SHAI+non-probe Ql (Nph) Not detected Not Detected [facility] Parainfluenza virus 4 RNA SHAI+non-probe Ql (Nph) Not detected Not Detected [facility] Rhinovirus+Enterovirus RNA SHAI+non-probe Ql (Nph) Not detected Not Detected [facility] RSV RNA SHAI+non-probe Ql (Nph) Not detected Not Detected [facility] SARS-CoV-2 (COVID-19) RNA SHAI+non-probe Ql (Nph) Not detected Not Detected [facility] Troponin Now and Q 1 Hour x 3on 03-29-2024 Interpretation and review of laboratory results Abnormal [facility] Troponin, High Sensitivity 241 ng/L Critically high 0 - 19 ng/L [facility] Comment on above: High Sensitivity Tro ponin values cannot be compared with other Troponin methodologies. [facility] tel. [phone], TRP5 results called to and read back by Leona Oneal, 03/29/2024 11:18, by [facility] Interpretation and review of laboratory results Abnormal [facility] Troponin, High Sensitivity 273 ng/L Critically high 0 - 19 ng/L [facility] Comment on above: High Sensitivity Tro ponin values cannot be compared with other Troponin methodologies. [facility] tel. [phone], TRP5 results called to and read back by Leona Oneal, 03/29/2024 09:48, by [facility] Troponin, High Sensitivity 297 ng/L Critically high 0 - 19 ng/L [facility] Comment on above: High Sensitivity Tro ponin values cannot be compared with other Troponin methodologies. Urinalysis with Reflex to Cu ltureon 03-29-2024 Bilirubin Ql (U) MODERATE Abnormal Negative [facility] Clarity (U) TURBID Abnormal Clear [facility] Color (U) DARK YELLOW Abnormal Straw/Yellow [facility] Glucose Test strip (U) [Mass/Vol] 100 mg/dL Abnormal Negative [facility] Hemoglobin Ql (U) LARGE Abnormal Negative [facility] Interpretation and review of laboratory results Abnormal [facility] Ketones (U) [Mass/Vol] Negative Negat jorge mg/dL [facility] Leukocyte esterase Test strip Ql (U) MODERATE Abnormal Negative [facility] Nitrite Ql (U) Negative Negative [facility] pH (U) 5.0 [pH] 5.0 - 9.0 [facility] Protein (U) [Mass/Vol] mg/dL Abnormal Negat jorge mg/dL [facility] Specific gravity (U) [Rel density] 1.035 1.005 - 1.030 [facility] Urine Reflex to Culture Yes [facility] Urobilinogen Qn (U) 1.0 NINF [facility] Urine Drug Screenon 03-29-20 Amphetamines Ql (U) Negative Negative <1000 ng/mL [facility] Barbiturates Screen Ql (U) Negative Negative < 200 ng/mL [facility] Benzodiazepines Ql (U) Negative Negat jorge < 200 ng/mL [facility] Cannabinoids Screen Ql (U) Negative Negative < 50 ng/mL [facility] Cocaine Ql (U) Negative Negative < 300 ng/mL [facility] Drug screen comment (U) [Interp] see below [facility] Comment on above: This method is a scr eening test to detect only these drug classes as part of a medical workup. Confirmatory testing by another method should be ordered if clinically indicated. FENTANYL SCREEN, URINE Negative Negat jorge < 50 ng/mL [facility] Methadone Screen Ql (U) Negative Nega tive <300 ng/mL [facility] Opiates Screen Ql (U) Negative Negati ve < 300 ng/mL [facility] oxyCODONE Ql (U) Negative Negative <100 ng/mL [facility] Phencyclidine Ql (U) Negative Negativ e < 25 ng/mL [facility] Propoxyphene Screen Ql (U) Negative Negative <300 ng/mL [facility] 03-27-2024 [place] Normal [facility] [place] Discharge med list transmitted to SNF - Paulo Ferrari via Careport per [facility] request. [id number] completed in [facility] per [facility] request. Facility notified via careport. Normal [facility] DC orders, MAR, and 7000 tasked to be sent to Lio Monzon via [employer]. Normal [facility] [place] Normal [facility] IDNon 03-27-2024 IDN The patient is Moderately Stable - Low risk of patient condition declining or worsening The patient's goals for the shift include safety and rest The clinical goals for the shift include safety and rest Normal [facility] Laboratory - Chemistry and C hemistry - challengeon 03-27-2024 Glucose [Mass/Vol] 183 mg/dL High 70 - 100 mg/dL [facility] Glucose [Mass/Vol] 173 mg/dL High 70 - 100 mg/dL [facility] No Panel Informationon 03-27 Interpretation and review of laboratory results Abnormal [facility] Interpretation and review of laboratory results Abnormal [facility] Nursing Noteon 03-27-2024 Nursing Note Report called to Leonides Monzon. Patient's belongings gathered and with patient at bedside. YESSI and AVS in chart. Normal [facility] Progress Noteon 03-27-2024 Progress Note Normal [facility] Progress Note [facility] Progress Note Normal [facility] CARECOORDon 03-26-2024 NADINE Spoke with mother Emerita, reviewed that Leonides Monzon, Sonja Ann and Teresa Ramirez can accept. [facility] Monzon is facility of choice, snf updated via careport, auth tasked to be started. Normal [facility] System [facility] W Auto Differential pane l (Bld)on 03-26-2024 Basophils (Bld) [#/Vol] 0.1 10*3/uL 0.0 - 0.2 10*3/uL [facility] Basophils/100 WBC (Bld) 0.5 % 0.0 - 2.0 % [facility] Eosinophils (Bld) [#/Vol] 0.2 10*3/uL 0.0 - 0.5 10*3/uL [facility] Eosinophils/100 WBC (Bld) 1.1 % 0.0 - 6.0 % [facility] Erythrocyte distribution width (RBC) [Ratio] 13.1 % 11.5 - 15.0 % [facility] Hematocrit (Bld) [Volume fraction] 39.6 % 35.0 - 47.0 % [facility] Hemoglobin (Bld) [Mass/Vol] 13.1 g/dL 11.7 - 16.0 g/dL [facility] Immature granulocytes (Bld) [#/Vol] 0.1 10*3/uL High NINF - 0.1 10*3/uL [facility] Immature granulocytes/100 WBC (Bld) 0.5 % 0.0 - 2.0 % [facility] Interpretation and review of laboratory results Abnormal [facility] Lymphocytes (Bld) [#/Vol] 2.9 10*3/uL 1.0 - 4.3 10*3/uL [facility] Lymphocytes/100 WBC (Bld) 19.2 % 15.0 - 45.0 % [facility] MCH (RBC) [Entitic mass] 28.5 pg 26.0 - 34.0 pg [facility] MCHC (RBC) [Mass/Vol] 33.1 % 30.5 - 36.0 % [facility] MCV (RBC) [Entitic vol] 86.1 fL 77.0 - 99.0 fL [facility] Monocytes (Bld) [#/Vol] 1.7 10*3/uL High 0.0 - 0.9 10*3/uL [facility] Monocytes/100 WBC (Bld) 11.6 % 5.0 - 13.0 % [facility] Neutrophils (Bld) [#/Vol] 10.0 10*3/uL High 1.8 - 7.5 10*3/uL [facility] Neutrophils/100 WBC (Bld) 67.1 % 38.0 - 82.0 % [facility] Nucleated RBC/100 WBC (Bld) [Ratio] 0.0 % [facility] Platelet mean volume (Bld) [Entitic vol] 12.1 fL 9.0 - 12.7 fL [facility] Platelets (Bld) [#/Vol] 329 10*3/uL 140 - 440 10*3/uL [facility] RBC (Bld) [#/Vol] 4.60 10*6/uL 3.80 - 5.2 0 10*6/uL [facility] WBC (Bld) [#/Vol] 14.9 10*3/uL High 3.6 - 10.7 10*3/uL [facility] CBC WITH AUTO DIFFERENTIALon 03-26-2024 Basophils (Bld) [#/Vol] 0.1 10*3/uL Normal 0.0-0.2 [facility] Comment on above: Performed By: #### L [id number] ####Choral Director: MESERET PAULA ([id number])[facility])[address] [place] [address] Basophils/100 WBC (Bld) 0.5 % Normal 0.0-2.0 S [facility] Comment on above: Performed By: #### L [id number] ####Choral Director: MESERET PAULA ([id number])[facility] ([facility])[address] [place] [address] Eosinophils (Bld) [#/Vol] 0.2 10*3/uL Normal 0.0-0.5 [facility] Comment on above: Performed By: #### L [id number] ####Choral Director: MESERET PAULA ([phone])[facility])[address] [place] [address] [place] Eosinophils/100 WBC (Bld) 1.1 % Normal 0.0-6.0 [facility] Comment on above: Performed By: #### L [id number] ####Choral Director: MESERET PAULA ([phone])[facility])[address] [place] [address] Erythrocyte distribution width (RBC) [Ratio] 13.1 % Normal 11.5-15.0 [facility] Comment on above: Performed By: #### L [id number] ####Choral Director: MESERET PAULA ([id number])[facility])[address] [place] [address] Hematocrit (Bld) [Volume fraction] 39.6 % Normal 35.0-47.0 [facility] Comment on above: Performed By: #### L [id number] ####Choral Director: MESERET PAULA ([id number])[address] Hemoglobin (Bld) [Mass/Vol] 13.1 g/dL Normal 11.7-16.0 [facility] Comment on above: Performed By: #### L [id number] ####Choral Director: MESERET PAULA ([id number])[facility])[address] [place] [address] IMMATURE GRANS % 0.5 % Normal 0.0-2.[address] [facility] Comment on above: Performed By: #### L [id number] ####Choral Director: MESERET PAULA ([id number])[address] IMMATURE GRANS ABSOLUTE 0.1 10*3/uL High <0.1 [facility] Comment on above: Performed By: #### L [id number] ####Choral Director: MESERET PAULA ([phone])[facility])[address] [place] [address] Lymphocytes (Bld) [#/Vol] 2.9 10*3/uL Normal 1.0-4.3 [facility] Comment on above: Performed By: #### L [id number] ####Choral Director: MESERET PAULA ([phone])[facility])[address] [place] [address] Lymphocytes/100 WBC (Bld) 19.2 % Normal 15.0-45.0 [facility] Comment on above: Performed By: #### L [id number] ####Choral Director: MESERET PAULA ([id number])[facility])[address] [place] [address] MCH (RBC) [Entitic mass] 28.5 pg Normal 26.0-34.0 [facility] Comment on above: Performed By: #### L [id number] ####Choral Director: MESERET PAULA ([id number])[facility])[address] [place] [address] MCHC 33.1 % Normal 30.5-36.0 [facility] Comment on above: Performed By: #### L [id number] ####Choral Director: MESERET PAULA ([id number])[facility])[address] [place] [address] MCV (RBC) [Entitic vol] 86.1 fL Normal 77.0-99.0 [facility] Comment on above: Performed By: #### L [id number] ####Choral Director: MESERET PAULA ([id number])[facility])[address] [place] [address] Monocytes (Bld) [#/Vol] 1.7 10*3/uL High 0.0-0.9 [facility] Comment on above: Performed By: #### L [id number] ####Choral Director: MESERET PAULA ([id number])[facility])[address] [place] [address] Monocytes/100 WBC (Bld) 11.6 % Normal 5.0-13.0 [facility] Comment on above: Performed By: #### L [id number] ####Choral Director: MESERET PAULA ([id number])[facility])[address] [place] [address] NEUTROPHILS ABSOLUTE 10.0 10*3/uL High 1.8-7.5 [facility] Comment on above: Performed By: #### L [id number] ####Choral Director: MESERET PAULA ([id number])[facility])[address] [place] [address] Neutrophils/100 WBC (Bld) 67.1 % Normal 38.0-82.0 [facility] Comment on above: Performed By: #### L [id number] ####Choral Director: MESERET PAULA ([id number])[facility] ([facility])[address] [place] [address] NRBC 0.0 /100 WBCs Normal 0.0-2.0 [facility] Comment on above: Performed By: #### L [id number] ####Choral Director: MESERET PAULA ([id number])[facility])[address] [place] [address] Platelet mean volume (Bld) [Entitic vol] 12.1 fL Normal 9.0-12.7 [facility] Comment on above: Performed By: #### L [id number] ####Choral Director: MESERET PAULA ([id number])[facility] ([facility])[address] [place] [address] Platelets (Bld) [#/Vol] 329 10*3/uL Normal 140-440 [facility] Comment on above: Performed By: #### L [id number] ####Choral Director: MESERET PAULA ([id number])[facility] ([facility])[address] [place] [address] RBC (Bld) [#/Vol] 4.60 10*6/uL Normal 3.80-5.20 [facility] Comment on above: Performed By: #### L [id number] ####Choral Director: MESERET PAULA ([id number])[facility])[address] [place] [address] WBC (Bld) [#/Vol] 14.9 10*3/uL High 3.6-10.7 [facility] Comment on above: Performed By: #### L [id number] ####Choral Director: MESERET PAULA ([id number])[facility] ([facility])[address] [place] [address] COMPREHENSIVE METABOLIC PANE [place] 03-26-2024 Albumin [Mass/Vol] 3.8 g/dL Normal 3.5-5.0 [facility] Comment on above: Performed By: #### Yumiko ABAilna, [id number], LAB17 ####Choral Director: MESERET PAULA ([id number])[facility] ([facility])[address] [place] [address] ALP [Catalytic activity/Vol] 173 U/L High 38-126 [facility] Comment on above: Performed By: #### Yumiko LADD, [id number], LAB17 ####Choral Director: MESERET PAULA ([id number])[facility] ([facility])[address] [place] [address] ALT [Catalytic activity/Vol] 121 U/L High 0-34 [facility] Comment on above: Performed By: #### Yumiko ABAlina, [id number], LAB17 ####Choral Director: MESERET PAULA ([id number])[facility] ([facility])[address] [place] [address] Anion gap [Moles/Vol] 11 mmol/L Normal 3-13 [facility] Comment on above: Performed By: #### Yumiko ABAlina, [id number], LAB17 ####Choral Director: MESERET PAULA ([id number])[facility])[address] [place] [address] AST [Catalytic activity/Vol] 85 U/L High 15-46 [facility] Comment on above: Performed By: #### Yumiko ABAlina, [id number], LAB17 ####Choral Director: MESERET PAULA ([id number])[facility])[address] [place] [address] Bilirubin [Mass/Vol] 0.8 mg/dL Normal 0.2-1.3 [facility] Comment on above: Performed By: #### Yumiko ABAlina, [id number], LAB17 ####Choral Director: MESERET PAULA ([id number])[facility] [place] [address] [place] Calcium [Mass/Vol] 9.2 mg/dL Normal 8.4-10.4 [facility] Comment on above: Performed By: #### Yumiko [id number], [id number], LAB17 ####Choral Director: MESERET PAULA ([id number])[facility] [place] [address] [place] Chloride [Moles/Vol] 103 mmol/L Normal 98-107 [facility] Comment on above: Performed By: #### Yumiko ABAlina, [id number], LAB17 ####Choral Director: MESERET PAULA ([id number])[facility] [place] [address] CO2 [Moles/Vol] 21 mmol/L Low 22-30 [facility] Comment on above: Performed By: #### Yumiko ABAlina, [id number], LAB17 ####Choral Director: MESERET PAULA ([id number])[facility] [place] [address] [place] Creatinine [Mass/Vol] 1.22 mg/dL High 0.52-1.04 [facility] Comment on above: Performed By: #### Yumiko AB113, [id number], LAB17 ####Choral Director: MESERET PAULA ([id number])[facility] [place] [address] [place] GLOMERULAR FILTRATION RATE ML/MIN/1.73 SQ M.PREDICTED 53.5 mL/min/1.73m*2 Low >60.0 [facility] Comment on above: Result Comment: Calc ulation based on the Chronic Kidney Disease Epidemiology Collaboration (CKD-EPI) equation refit without adjustment for race Performed By: #### L AB113, [id number], LAB17 ####Choral Director: MESERET PAULA ([id number])[facility] [place] [address] [place] Glucose [Mass/Vol] 179 mg/dL High 70-100 [facility] Comment on above: Performed By: #### L [id number], [id number], LAB17 ####Choral Director: MESERET PAULA ([id number])[facility] ([facility])[address] [place] [address] Potassium [Moles/Vol] 4.5 mmol/L Normal 3.5-5.1 [facility] Comment on above: Performed By: #### L AB113, [id number], LAB17 ####Choral Director: MESERET PAULA ([id number])[facility] ([facility])[address] [place] [address] Protein [Mass/Vol] 8.0 g/dL Normal 6.3-8.2 [facility] Comment on above: Performed By: #### Yumiko AB113, [id number], LAB17 ####Choral Director: MESERET PAULA ([id number])[facility] ([facility])[address] [place] [address] Sodium [Moles/Vol] 135 mmol/L Normal 135-145 [facility] Comment on above: Performed By: #### Yumiko ABAlina, [id number], LAB17 ####Choral Director: MESERET PAULA ([id number])[facility] ([facility])[address] [place] [address] Urea nitrogen [Mass/Vol] 25 mg/dL High 7-17 [facility] Comment on above: Performed By: #### L ABAlina, [id number], LAB17 ####Choral Director: MESERET PAULA ([id number])[facility] ([facility])[address] [place] [address] CT HEAD WO IV CONTRASTon CT HEAD WO IV CONTRAST Normal [facility] Head WO contraston 2023 [facility]PART[facility] RADIOLOGY SYSTEM [facility] EMERGENCY DEPARTMENT RADIOLOGY SYSTEM [facility] Radiology Study observation (narrative) [facility] aleta [facility] metabolic 1998 panelon 03-26-2024 Albumin [Mass/Vol] 3.8 g/dL 3.5 - 5.0 g/dL [facility] ALP [Catalytic activity/Vol] 173 U/L High 38 - 126 U/L [facility] ALT [Catalytic activity/Vol] 121 U/L High 0 - 34 U/L [facility] Anion gap [Moles/Vol] 11 mmol/L 3 - 13 mmol/L [facility] AST [Catalytic activity/Vol] 85 U/L High 15 - 46 U/L [facility] Bilirubin [Mass/Vol] 0.8 mg/dL 0.2 - 1 .3 mg/dL [facility] Calcium [Mass/Vol] 9.2 mg/dL 8.4 - 10. 4 mg/dL [facility] Chloride [Moles/Vol] 103 mmol/L 98 - 10 7 mmol/L [facility] CO2 [Moles/Vol] 21 mmol/L Low 22 - 30 mmol/L [facility] Creatinine [Mass/Vol] 1.22 mg/dL High 0.52 - 1.04 mg/dL [facility] GFR/1.73 sq M.predicted MDRD (S/P/Bld) [Vol rate/Area] 53.5 mL/min/{1.73_m2} Low - PINF [facility] Glucose [Mass/Vol] 179 mg/dL High 70 - 100 mg/dL [facility] Interpretation and review of laboratory results Abnormal [facility] Potassium [Moles/Vol] 4.5 mmol/L 3.5 - 5.1 mmol/L [facility] Protein [Mass/Vol] 8.0 g/dL 6.3 - 8.2 g/dL [facility] Sodium [Moles/Vol] 135 mmol/L 135 - 145 mmol/L [facility] Urea nitrogen [Mass/Vol] 25 mg/dL High 7 - 17 mg/dL [facility] IDNon 03-26-2024 IDN Normal [facility] Laboratory - Chemistry and C hemistry - challengeon 03-26-2024 Glucose [Mass/Vol] 185 mg/dL High 70 - 100 mg/dL [facility] Glucose [Mass/Vol] 159 mg/dL High 70 - 100 mg/dL [facility] Glucose [Mass/Vol] 238 mg/dL High 70 - 100 mg/dL [facility] Glucose [Mass/Vol] 211 mg/dL High 70 - 100 mg/dL [facility] Glucose [Mass/Vol] 181 mg/dL High 70 - 100 mg/dL [facility] Magnesium [Mass/Vol] 2.2 mg/dL 1.6 - 2 .3 mg/dL [facility] MAGNESIUMon 03-26-2024 Magnesium [Mass/Vol] 2.2 mg/dL Normal 1.6-2.3 [facility] Comment on above: Performed By: #### L [id number], [id number], LAB17 ####Choral Director: MESERET PAULA ([id number])[facility] ([facility])[address] [place] [address] No Panel Informationon 03-26 Interpretation and review of laboratory results Abnormal [facility] Interpretation and review of laboratory results Abnormal [facility] Interpretation and review of laboratory results Abnormal [facility] Interpretation and review of laboratory results Abnormal [facility] Interpretation and review of laboratory results Abnormal [facility] Interpretation and review of laboratory results Normal [facility] Nursing Noteon 03-26-2024 Nursing Note Normal [facility] PHOSPHORUSon 03-26-2024 Phosphate [Mass/Vol] 4.3 mg/dL Normal 2.5-4.5 [facility] Comment on above: Performed By: #### L AB113, [id number], LAB17 ####Choral Director: MESERET PAULA ([id number])[facility] ([facility])[address] [place] [address] Phosphate [Moles/Vol]on Phosphate [Mass/Vol] 4.3 mg/dL 2.5 - 4 .5 mg/dL [facility] Progress Noteon 03-26-2024 Progress Note Normal [facility] Progress Note Normal [facility] Progress Note Normal [facility] Progress Note Normal [facility] Progress Note Normal [facility] Progress Note Normal [facility] Progress Note Normal [facility] US ABDOMEN COMPLETEon 2023 US ABDOMEN COMPLETE Normal [facility] US Abdomenon 03-26-2024 [facility] EMERGENCY DEPARTMENT RADIOLOGY [facility] RADIOLOGY [facility] Radiology Study observation (narrative) [facility] US AbdomenOrdered By: Bety Atkinson on 03-26-2024 [facility] Work Phone: CARECOORDon 03-25-2024 [facility] [place] Normal [facility] following with T[facility]. Normal [facility] Normal [facility] CBC W Auto Differential pane l (Bld)on 03-25-2024 Basophils (Bld) [#/Vol] 0.1 10*3/uL 0.0 - 0.2 10*3/uL [facility] Basophils/100 WBC (Bld) 0.6 % 0.0 - 2.0 % [facility] Eosinophils (Bld) [#/Vol] 0.2 10*3/uL 0.0 - 0.5 10*3/uL [facility] Eosinophils/100 WBC (Bld) 1.0 % 0.0 - 6.0 % [facility] Erythrocyte distribution width (RBC) [Ratio] 13.1 % 11.5 - 15.0 % [facility] Hematocrit (Bld) [Volume fraction] 41.6 % 35.0 - 47.0 % [facility] Hemoglobin (Bld) [Mass/Vol] 13.7 g/dL 11.7 - 16.0 g/dL [facility] Immature granulocytes (Bld) [#/Vol] 0.1 10*3/uL High NINF - 0.1 10*3/uL [facility] Immature granulocytes/100 WBC (Bld) 0.6 % 0.0 - 2.0 % [facility] Interpretation and review of laboratory results Abnormal [facility] Lymphocytes (Bld) [#/Vol] 3.1 10*3/uL 1.0 - 4.3 10*3/uL [facility] Lymphocytes/100 WBC (Bld) 21.5 % 15.0 - 45.0 % [facility] MCH (RBC) [Entitic mass] 28.3 pg 26.0 - 34.0 pg [facility] MCHC (RBC) [Mass/Vol] 32.9 % 30.5 - 36.0 % [facility] MCV (RBC) [Entitic vol] 86.0 fL 77.0 - 99.0 fL [facility] Monocytes (Bld) [#/Vol] 1.8 10*3/uL High 0.0 - 0.9 10*3/uL [facility] Monocytes/100 WBC (Bld) 12.8 % 5.0 - 13.0 % [facility] Neutrophils (Bld) [#/Vol] 9.1 10*3/uL High 1.8 - 7.5 10*3/uL [facility] Neutrophils/100 WBC (Bld) 63.5 % 38.0 - 82.0 % [facility] Nucleated RBC/100 WBC (Bld) [Ratio] 0.0 % [facility] Platelet mean volume (Bld) [Entitic vol] 12.0 fL 9.0 - 12.7 fL [facility] Platelets (Bld) [#/Vol] 301 10*3/uL 140 - 440 10*3/uL [facility] RBC (Bld) [#/Vol] 4.84 10*6/uL 3.80 - 5.2 0 10*6/uL [facility] WBC (Bld) [#/Vol] 14.4 10*3/uL High 3.6 - 10.7 10*3/uL [facility] CBC WITH AUTO DIFFERENTIALon 03-25-2024 Basophils (Bld) [#/Vol] 0.1 10*3/uL Normal 0.0-0.2 [facility] Comment on above: Performed By: #### L [id number] ####Choral Director: MESERET PAULA ([id number])[facility] ([facility])[address] [place] [address] Basophils/100 WBC (Bld) 0.6 % Normal 0.0-2.0 S [facility] Comment on above: Performed By: #### L [id number] ####Choral Director: MESERET PAULA ([id number])[facility] ([facility])[address] [place] [address] [place] Eosinophils (Bld) [#/Vol] 0.2 10*3/uL Normal 0.0-0.5 [facility] Comment on above: Performed By: #### L [id number] ####Choral Director: MESERET PAULA ([id number])[facility] ([facility])[address] [place] [address] [place] Eosinophils/100 WBC (Bld) 1.0 % Normal 0.0-6.0 [facility] Comment on above: Performed By: #### L [id number] ####Choral Director: MESERET PAULA ([id number])[address] Erythrocyte distribution width (RBC) [Ratio] 13.1 % Normal 11.5-15.0 [facility] Comment on above: Performed By: #### L [id number] ####Choral Director: MESERET PAULA ([phone])[address] Hematocrit (Bld) [Volume fraction] 41.6 % Normal 35.0-47.0 [facility] Comment on above: Performed By: #### L [id number] ####Choral Director: MESERET PAULA ([id number])[address] Hemoglobin (Bld) [Mass/Vol] 13.7 g/dL Normal 11.7-16.0 [facility] Comment on above: Performed By: #### L [id number] ####Choral Director: MESERET PAULA ([id number])[address] IMMATURE GRANS % 0.6 % Normal 0.0-2.[address] [facility] Comment on above: Performed By: #### L [id number] ####Choral Director: MESERET PAULA ([id number])[address] IMMATURE GRANS ABSOLUTE 0.1 10*3/uL High <0.1 [facility] Comment on above: Performed By: #### L [id number] ####Choral Director: MESERET PAULA ([id number])[address] Lymphocytes (Bld) [#/Vol] 3.1 10*3/uL Normal 1.0-4.3 [facility] Comment on above: Performed By: #### L [id number] ####Choral Director: MESERET PAULA ([id number])[facility])[address] [place] [address] Lymphocytes/100 WBC (Bld) 21.5 % Normal 15.0-45.0 [facility] Comment on above: Performed By: #### L [id number] ####Choral Director: MESERET PAULA ([phone])[facility])[address] [place] [address] MCH (RBC) [Entitic mass] 28.3 pg Normal 26.0-34.0 [facility] Comment on above: Performed By: #### L [id number] ####Choral Director: MESERET PAULA ([id number])[facility])[address] [place] [address] MCHC 32.9 % Normal 30.5-36.0 [facility] Comment on above: Performed By: #### L [id number] ####Choral Director: MESERET PAULA ([id number])[facility] ([facility])[address] [place] [address] MCV (RBC) [Entitic vol] 86.0 fL Normal 77.0-99.0 [facility] [facility] Comment on above: Performed By: #### L [id number] ####Choral Director: MESERET PAULA ([id number])[facility])[address] [place] [address] Monocytes (Bld) [#/Vol] 1.8 10*3/uL High 0.0-0.9 [facility] Comment on above: Performed By: #### L [id number] ####Choral Director: MESERET PAULA ([id number])[facility])[address] [place] [address] Monocytes/100 WBC (Bld) 12.8 % Normal 5.0-13.0 S [facility] Comment on above: Performed By: #### L [id number] ####Choral Director: MESERET PAULA ([phone])[facility])[address] [place] [address] NEUTROPHILS ABSOLUTE 9.1 10*3/uL High 1.8-7.5 [facility] Comment on above: Performed By: #### L [id number] ####Choral Director: MESERET PAULA ([phone])[facility] ([facility])[address] [place] [address] Neutrophils/100 WBC (Bld) 63.5 % Normal 38.0-82.0 [facility] Comment on above: Performed By: #### L [id number] ####Choral Director: MESERET PAULA ([id number])[facility] ([facility])[address] [place] [address] NRBC 0.0 /100 WBCs Normal 0.0-2.0 [facility] Comment on above: Performed By: #### L [id number] ####Choral Director: MESERET PAULA ([id number])[facility] ([facility])[address] [place] [address] Platelet mean volume (Bld) [Entitic vol] 12.0 fL Normal 9.0-12.7 [facility] Comment on above: Performed By: #### L [id number] ####Choral Director: MESERET PAULA ([id number])[facility] ([facility])[address] [place] [address] Platelets (Bld) [#/Vol] 301 10*3/uL Normal 140-440 [facility] Comment on above: Performed By: #### L [id number] ####Choral Director: MESERET PAULA ([phone])[facility] ([facility])[address] [place] [address] RBC (Bld) [#/Vol] 4.84 10*6/uL Normal 3.80-5.20 [facility] Comment on above: Performed By: #### L [id number] ####Choral Director: MESERET PAULA ([id number])[facility] ([facility])[address] [place] [address] [place] WBC (Bld) [#/Vol] 14.4 10*3/uL High 3.6-10.7 [facility] Comment on above: Performed By: #### L [id number] ####Choral Director: MESERET PAULA ([id number])[facility])[address] [place] [address] COMPREHENSIVE METABOLIC PANE [place] 03-25-2024 Albumin [Mass/Vol] 3.9 g/dL Normal 3.5-5.0 [facility] Comment on above: Performed By: #### Yumiko ABAlina, LAB17, [id number] ####Choral Director: MESERET PAULA ([phone])[facility] ([facility])[address] [place] [address] ALP [Catalytic activity/Vol] 137 U/L High 38-126 [facility] Comment on above: Performed By: #### Yumiko LADD, LAB17, [id number] ####Choral Director: MESERET PAULA ([id number])[facility] ([facility])[address] [place] [address] ALT [Catalytic activity/Vol] 87 U/L High 0-34 [facility] Comment on above: Performed By: #### Yumiko LADD, LAB17, [id number] ####Choral Director: MESERET PAULA ([phone])[facility] ([facility])[address] [place] [address] Anion gap [Moles/Vol] 9 mmol/L Normal 3-13 [facility] Comment on above: Performed By: #### Yumiko LADD, LAB17, [id number] ####Choral Director: MESERET PAULA ([id number])[facility] ([facility])[address] [place] [address] AST [Catalytic activity/Vol] 70 U/L High 15-46 [facility] Comment on above: Performed By: #### Yumiko ABAlina, LAB17, [id number] ####Choral Director: MESERET PAULA ([id number])[facility])[address] [place] [address] Bilirubin [Mass/Vol] 0.9 mg/dL Normal 0.2-1.3 [facility] Comment on above: Performed By: #### Yumiko ABAlina, LAB17, [id number] ####Choral Director: MESERET PAULA ([id number])[facility])[address] [place] [address] Calcium [Mass/Vol] 9.4 mg/dL Normal 8.4-10.4 [facility] Comment on above: Performed By: #### Yumiko ABAlina, LAB17, [id number] ####Choral Director: MESERET PAULA ([id number])[facility] ([facility])[address] [place] [address] Chloride [Moles/Vol] 103 mmol/L Normal 98-107 [facility] Comment on above: Performed By: #### Yumiko LADD, LAB17, [id number] ####Choral Director: MESERET PAULA ([id number])[facility])[address] [place] [address] CO2 [Moles/Vol] 20 mmol/L Low 22-30 [facility] Comment on above: Performed By: #### Yumiko ABAlina, LAB17, [id number] ####Choral Director: MESERET PAULA ([id number])[facility])[address] [place] [address] Creatinine [Mass/Vol] 1.11 mg/dL High 0.52-1.04 [facility] Comment on above: Performed By: #### Yumiko ABAlina, LAB17, [id number] ####Choral Director: MESERET PAULA ([id number])[facility])[address] [place] [address] GLOMERULAR FILTRATION RATE ML/MIN/1.73 SQ M.PREDICTED 59.9 mL/min/1.73m*2 Low >60.0 [facility] Comment on above: Result Comment: Calc ulation based on the Chronic Kidney Disease Epidemiology Collaboration (CKD-EPI) equation refit without adjustment for race Performed By: #### L AB113, LAB17, [id number] ####Choral Director: MESERET PAULA ([id number])[facility])[address] [place] [address] [place] Glucose [Mass/Vol] 193 mg/dL High 70-100 [facility] Comment on above: Performed By: #### Yumiko ABAlina, LAB17, [id number] ####Choral Director: MESERET PAULA ([id number])[facility] ([facility])[address] [place] [address] Potassium [Moles/Vol] 4.6 mmol/L Normal 3.5-5.1 [facility] Comment on above: Performed By: #### Yumiko ABAlina, LAB17, [id number] ####Choral Director: MESERET PAULA ([phone])[facility] ([facility])[address] [place] [address] Protein [Mass/Vol] 8.2 g/dL Normal 6.3-8.2 [facility] Comment on above: Performed By: #### Yumiko LADD, LAB17, [id number] ####Choral Director: MESERET PAULA ([phone])[facility] ([facility])[address] [place] [address] Sodium [Moles/Vol] 132 mmol/L Low 135-145 [facility] Comment on above: Performed By: #### Yumiko LADD, LAB17, [id number] ####Choral Director: MESERET PAULA ([id number])[facility] ([facility])[address] [place] [address] Urea nitrogen [Mass/Vol] 23 mg/dL High 7-17 [facility] Comment on above: Performed By: #### Yumiko LADD, LAB17, [id number] ####Choral Director: MESERET PAULA ([id number])[facility] ([facility])[address] [place] [address] Comprehensive metabolic 1998 panelon 03-25-2024 Albumin [Mass/Vol] 3.9 g/dL 3.5 - 5.0 g/dL [facility] ALP [Catalytic activity/Vol] 137 U/L High 38 - 126 U/L [facility] ALT [Catalytic activity/Vol] 87 U/L High 0 - 34 U/L [facility] Anion gap [Moles/Vol] 9 mmol/L 3 - 13 mmol/L [facility] AST [Catalytic activity/Vol] 70 U/L High 15 - 46 U/L [facility] Bilirubin [Mass/Vol] 0.9 mg/dL 0.2 - 1 .3 mg/dL [facility] Calcium [Mass/Vol] 9.4 mg/dL 8.4 - 10. 4 mg/dL [facility] Chloride [Moles/Vol] 103 mmol/L 98 - 10 7 mmol/L [facility] CO2 [Moles/Vol] 20 mmol/L Low 22 - 30 mmol/L [facility] Creatinine [Mass/Vol] 1.11 mg/dL High 0.52 - 1.04 mg/dL [facility] GFR/1.73 sq M.predicted MDRD (S/P/Bld) [Vol rate/Area] 59.9 mL/min/{1.73_m2} Low - PINF [facility] Glucose [Mass/Vol] 193 mg/dL High 70 - 100 mg/dL [facility] Potassium [Moles/Vol] 4.6 mmol/L 3.5 - 5.1 mmol/L [facility] Protein [Mass/Vol] 8.2 g/dL 6.3 - 8.2 g/dL [facility] Sodium [Moles/Vol] 132 mmol/L Low 135 - 145 mmol/L [facility] Urea nitrogen [Mass/Vol] 23 mg/dL High 7 - 17 mg/dL [facility] IDNon 03-25-2024 IDN Patient verbalizes understanding to call for help. Patient used call light appropriately this shift to call for assistance. Safety measures maintained. Normal [facility] Laboratory - Chemistry and C hemistry - challengeon 03-25-2024 Glucose [Mass/Vol] 267 mg/dL High 70 - 100 mg/dL [facility] Glucose [Mass/Vol] 128 mg/dL High 70 - 100 mg/dL [facility] Glucose [Mass/Vol] 271 mg/dL High 70 - 100 mg/dL [facility] Glucose [Mass/Vol] 226 mg/dL High 70 - 100 mg/dL [facility] Magnesium [Mass/Vol] 2.2 mg/dL 1.6 - 2 .3 mg/dL [facility] MAGNESIUMon 03-25-2024 Magnesium [Mass/Vol] 2.2 mg/dL Normal 1.6-2.3 [facility] Comment on above: Performed By: #### L AB113, LAB17, [id number] ####Choral Director: MESERET PAULA ([phone])[facility] ([facility])[address] [place] [address] Magnesium [Mass/Vol]on 03-25 Interpretation and review of laboratory results Normal [facility] No Panel Informationon 03-25 Interpretation and review of laboratory results Abnormal [facility] Interpretation and review of laboratory results Abnormal [facility] Interpretation and review of laboratory results Abnormal [facility] Interpretation and review of laboratory results Abnormal [facility] Interpretation and review of laboratory results Abnormal [facility] Nursing Noteon 03-25-2024 Nursing Note Normal [facility] Nursing Note Dr. Ace Cam notified that patients ALT/AST labs continue to elevate, and patient continues to take Tylenol prn. Dr. Cam acknowledged, no new orders received. Normal [facility] PHOSPHORUSon 03-25-2024 Phosphate [Mass/Vol] 4.6 mg/dL High 2.5-4.5 [facility] Comment on above: Performed By: #### L AB113, LAB17, [id number] ####Choral Director: MESERET PAULA ([phone])[facility] ([facility])[address] [place] [address] [place] Phosphate [Moles/Vol]on Phosphate [Mass/Vol] 4.6 mg/dL High 2.5 - 4 .5 mg/dL [facility] Progress Noteon 03-25-2024 Progress Note Normal [facility] Progress Note Normal [facility] Progress [facility] Normal [facility] Progress Note Normal [facility] Progress [facility] Normal [facility] CARECOORDon 03-24-2024 [place] Spoke with [facility] liaison, auth is back thru 03/29. No bed available at [facility] today. TCC to follow. Normal [facility] CBC W Auto Differential pane l (Bld)Ordered By: Jenifer Campos on 03-24-2024 Basophils (Bld) [#/Vol] 0.1 10*3/uL 0.0 - 0.2 10*3/uL [facility] Basophils/100 WBC (Bld) 0.4 % 0.0 - 2.0 % [facility] Eosinophils (Bld) [#/Vol] 0.1 10*3/uL 0.0 - 0.5 10*3/uL [facility] Eosinophils/100 WBC (Bld) 0.7 % 0.0 - 6.0 % [facility] Erythrocyte distribution width (RBC) [Ratio] 13.0 % 11.5 - 15.0 % [facility] Hematocrit (Bld) [Volume fraction] 41.3 % 35.0 - 47.0 % [facility] Hemoglobin (Bld) [Mass/Vol] 13.8 g/dL 11.7 - 16.0 g/dL [facility] Immature granulocytes (Bld) [#/Vol] 0.1 10*3/uL High NINF - 0.1 10*3/uL [facility] Immature granulocytes/100 WBC (Bld) 0.5 % 0.0 - 2.0 % [facility] Interpretation and review of laboratory results Abnormal [facility] Lymphocytes (Bld) [#/Vol] 2.7 10*3/uL 1.0 - 4.3 10*3/uL [facility] Lymphocytes/100 WBC (Bld) 18.2 % 15.0 - 45.0 % [facility] MCH (RBC) [Entitic mass] 28.7 pg 26.0 - 34.0 pg [facility] MCHC (RBC) [Mass/Vol] 33.4 % 30.5 - 36.0 % [facility] MCV (RBC) [Entitic vol] 85.9 fL 77.0 - 99.0 fL [facility] Monocytes (Bld) [#/Vol] 1.9 10*3/uL High 0.0 - 0.9 10*3/uL [facility] Monocytes/100 WBC (Bld) 12.5 % 5.0 - 13.0 % [facility] Neutrophils (Bld) [#/Vol] 10.1 10*3/uL High 1.8 - 7.5 10*3/uL [facility] Neutrophils/100 WBC (Bld) 67.7 % 38.0 - 82.0 % [facility] Nucleated RBC/100 WBC (Bld) [Ratio] 0.0 % [facility] Platelet mean volume (Bld) [Entitic vol] 12.0 fL 9.0 - 12.7 fL [facility] Platelets (Bld) [#/Vol] 317 10*3/uL 140 - 440 10*3/uL [facility] RBC (Bld) [#/Vol] 4.81 10*6/uL 3.80 - 5.2 0 10*6/uL [facility] WBC (Bld) [#/Vol] 15.0 10*3/uL High 3.6 - 10.7 10*3/uL [facility] CBC WITH AUTO DIFFERENTIALon 03-24-2024 Basophils (Bld) [#/Vol] 0.1 10*3/uL Normal 0.0-0.2 [facility] Comment on above: Performed By: #### L [id number] ####Choral Director: MESERET PAULA ([id number])[facility])[address] [place] [address] Basophils/100 WBC (Bld) 0.4 % Normal 0.0-2.0 [facility] Comment on above: Performed By: #### L [id number] ####Choral Director: MESERET PAULA ([id number])[facility])[address] [place] [address] Eosinophils (Bld) [#/Vol] 0.1 10*3/uL Normal 0.0-0.5 [facility] Comment on above: Performed By: #### L [id number] ####Choral Director: MESERET PAULA ([id number])[facility])[address] [place] [address] Eosinophils/100 WBC (Bld) 0.7 % Normal 0.0-6.0 [facility] Comment on above: Performed By: #### L [id number] ####Choral Director: MESERET PAULA ([id number])[facility])[address] [place] [address] Erythrocyte distribution width (RBC) [Ratio] 13.0 % Normal 11.5-15.0 [facility] Comment on above: Performed By: #### L [id number] ####Choral Director: MESERET PAULA ([phone])[facility])[address] [place] [address] Hematocrit (Bld) [Volume fraction] 41.3 % Normal 35.0-47.0 [facility] Comment on above: Performed By: #### L [id number] ####Choral Director: MESERET PAULA ([id number])[facility])[address] [place] [address] Hemoglobin (Bld) [Mass/Vol] 13.8 g/dL Normal 11.7-16.0 [facility] Comment on above: Performed By: #### L [id number] ####Choral Director: MESERET PAULA ([phone])[facility])[address] [place] [address] IMMATURE GRANS % 0.5 % Normal 0.0-2.[address] [facility] Comment on above: Performed By: #### L [id number] ####Choral Director: MESERET PAULA ([phone])[facility])[address] [place] [address] IMMATURE GRANS ABSOLUTE 0.1 10*3/uL High <0.1 [facility] Comment on above: Performed By: #### L [id number] ####Choral Director: MESERET PAULA ([id number])[facility])[address] [place] [address] Lymphocytes (Bld) [#/Vol] 2.7 10*3/uL Normal 1.0-4.3 [facility] Comment on above: Performed By: #### L [id number] ####Choral Director: MESERET PAULA ([id number])[facility])[address] [place] [address] Lymphocytes/100 WBC (Bld) 18.2 % Normal 15.0-45.0 [facility] Comment on above: Performed By: #### L [id number] ####Choral Director: MESERET PAULA ([id number])[facility])[address] [place] [address] MCH (RBC) [Entitic mass] 28.7 pg Normal 26.0-34.0 [facility] Comment on above: Performed By: #### L [id number] ####Choral Director: MESERET PAULA ([id number])[facility])[address] [place] [address] MCHC 33.4 % Normal 30.5-36.0 [facility] Comment on above: Performed By: #### L [id number] ####Choral Director: MESERET PAULA ([id number])[facility])[address] [place] [address] MCV (RBC) [Entitic vol] 85.9 fL Normal 77.0-99.0 [facility] Comment on above: Performed By: #### L [id number] ####Choral Director: MESERET PAULA ([phone])[facility])[address] [place] [address] Monocytes (Bld) [#/Vol] 1.9 10*3/uL High 0.0-0.9 [facility] Comment on above: Performed By: #### L [id number] ####Choral Director: MESERET PAULA ([id number])[facility])[address] [place] [address] Monocytes/100 WBC (Bld) 12.5 % Normal 5.0-13.0 [facility] Comment on above: Performed By: #### L [id number] ####Choral Director: MESERET PAULA ([id number])[facility])[address] [place] [address] NEUTROPHILS ABSOLUTE 10.1 10*3/uL High 1.8-7.5 [facility] Comment on above: Performed By: #### L [id number] ####Choral Director: MESERET [id number])[facility] ([facility])[address] [place] [address] Neutrophils/100 WBC (Bld) 67.7 % Normal 38.0-82.0 [facility] Comment on above: Performed By: #### L [id number] ####Choral Director: MESERET PAULA ([id number])[facility] ([facility])[address] [place] [address] NRBC 0.0 /100 WBCs Normal 0.0-2.0 [facility] Comment on above: Performed By: #### L [id number] ####Choral Director: MESERET PAULA ([id number])[facility] ([facility])[address] [place] [address] Platelet mean volume (Bld) [Entitic vol] 12.0 fL Normal 9.0-12.7 [facility] Comment on above: Performed By: #### L [id number] ####Choral Director: MESERET PAULA ([phone])[facility] ([facility])[address] [place] [address] Platelets (Bld) [#/Vol] 317 10*3/uL Normal 140-440 [facility] Comment on above: Performed By: #### L [id number] ####Choral Director: MESERET PAULA ([id number])[facility] ([facility])[address] [place] [address] RBC (Bld) [#/Vol] 4.81 10*6/uL Normal 3.80-5.20 [facility] Comment on above: Performed By: #### L [id number] ####Choral Director: MESERET PAULA ([id number])[facility] ([facility])[address] [place] [address] WBC (Bld) [#/Vol] 15.0 10*3/uL High 3.6-10.7 [facility] Comment on above: Performed By: #### L [id number] ####Choral Director: MESERET PAULA ([phone])[facility] ([facility])[address] [place] [address] COMPREHENSIVE METABOLIC PANE [place] 03-24-2024 Albumin [Mass/Vol] 3.9 g/dL Normal 3.5-5.0 [facility] Comment on above: Performed By: #### L AB17, [id number], [id number] ####Choral Director: MESERET PAULA ([id number])[facility] ([facility])[address] [place] [address] ALP [Catalytic activity/Vol] 133 U/L High 38-126 [facility] Comment on above: Performed By: #### L AB17, [id number], [id number] ####Choral Director: MESERET PAULA ([id number])[facility] ([facility])[address] [place] [address] ALT [Catalytic activity/Vol] 67 U/L High 0-34 [facility] Comment on above: Performed By: #### Yumiko AB17, [id number], [id number] ####Choral Director: MESERET PAULA ([id number])[facility] ([facility])[address] [place] [address] Anion gap [Moles/Vol] 10 mmol/L Normal 3-13 [facility] Comment on above: Performed By: #### Yumiko AB17, [id number], [id number] ####Choral Director: MESERET PAULA ([id number])[facility] ([facility])[address] [place] [address] AST [Catalytic activity/Vol] 63 U/L High 15-46 [facility] Comment on above: Performed By: #### Yumiko AB17, [id number], [id number] ####Choral Director: MESERET PAULA ([id number])[facility] ([facility])[address] [place] [address] Bilirubin [Mass/Vol] 0.9 mg/dL Normal 0.2-1.3 [facility] Comment on above: Performed By: #### L AB17, [id number], [id number] ####Choral Director: MESERET PAULA ([id number])[facility] ([facility])[address] [place] [address] Calcium [Mass/Vol] 9.5 mg/dL Normal 8.4-10.4 [facility] Comment on above: Performed By: #### L AB17, [id number], [id number] ####Choral Director: MESERET PAULA ([id number])[facility] [place] [address] Chloride [Moles/Vol] 100 mmol/L Normal 98-107 [facility] Comment on above: Performed By: #### L AB17, [id number], [id number] ####Choral Director: MESERET PAULA ([phone])[facility] [place] [address] CO2 [Moles/Vol] 22 mmol/L Normal 22-30 [facility] Comment on above: Performed By: #### L AB17, [id number], [id number] ####Choral Director: MESERET PAULA ([id number])[facility] ([facility])[address] [place] [address] Creatinine [Mass/Vol] 1.20 mg/dL High 0.52-1.04 [facility] Comment on above: Performed By: #### L AB17, [id number], [id number] ####Choral Director: MESERET PAULA ([phone])[facility] ([facility])[address] [place] [address] [place] GLOMERULAR FILTRATION RATE ML/MIN/1.73 SQ M.PREDICTED 54.6 mL/min/1.73m*2 Low >60.0 [facility] Comment on above: Result Comment: Calc ulation based on the Chronic Kidney Disease Epidemiology Collaboration (CKD-EPI) equation refit without adjustment for race Performed By: #### L AB17, [id number], [id number] ####Choral Director: MESERET PAULA ([phone])[facility] ([facility])[address] [place] [address] [place] Glucose [Mass/Vol] 236 mg/dL High 70-100 [facility] Comment on above: Performed By: #### L AB17, [id number], [id number] ####Choral Director: MESERET [id number])[facility])[address] [place] [address] Potassium [Moles/Vol] 4.6 mmol/L Normal 3.5-5.1 [facility] Comment on above: Performed By: #### L AB17, [id number], [id number] ####Choral Director: MESERET PAULA ([phone])[facility] [facility] ([facility])[address] [place] [address] Protein [Mass/Vol] 8.0 g/dL Normal 6.3-8.2 [facility] Comment on above: Performed By: #### L [id number], [id number], [id number] ####Choral Director: MESERET PAULA ([phone])[facility] ([facility])[address] [place] [address] Sodium [Moles/Vol] 131 mmol/L Low 135-145 [facility] Comment on above: Performed By: #### L [id number], [id number], [id number] ####Choral Director: MESERET PAULA ([phone])[facility] ([facility])[address] [place] [address] Urea nitrogen [Mass/Vol] 24 mg/dL High 7-17 [facility] Comment on above: Performed By: #### L [id number], [id number], [id number] ####Choral Director: MESERET PAULA ([phone])[facility])[address] [place] [address] Comprehensive metabolic 1998 panelon 03-24-2024 Albumin [Mass/Vol] 3.9 g/dL 3.5 - 5.0 g/dL [facility] ALP [Catalytic activity/Vol] 133 U/L High 38 - 126 U/L [facility] ALT [Catalytic activity/Vol] 67 U/L High 0 - 34 U/L [facility] Anion gap [Moles/Vol] 10 mmol/L 3 - 13 mmol/L [facility] AST [Catalytic activity/Vol] 63 U/L High 15 - 46 U/L [facility] Bilirubin [Mass/Vol] 0.9 mg/dL 0.2 - 1 .3 mg/dL [facility] Calcium [Mass/Vol] 9.5 mg/dL 8.4 - 10. 4 mg/dL [facility] Chloride [Moles/Vol] 100 mmol/L 98 - 10 7 mmol/L [facility] CO2 [Moles/Vol] 22 mmol/L 22 - 30 mmol/L [facility] Creatinine [Mass/Vol] 1.20 mg/dL High 0.52 - 1.04 mg/dL [facility] GFR/1.73 sq M.predicted MDRD (S/P/Bld) [Vol rate/Area] 54.6 mL/min/{1.73_m2} Low - PINF [facility] Glucose [Mass/Vol] 236 mg/dL High 70 - 100 mg/dL [facility] Potassium [Moles/Vol] 4.6 mmol/L 3.5 - 5.1 mmol/L [facility] Protein [Mass/Vol] 8.0 g/dL 6.3 - 8.2 g/dL [facility] Sodium [Moles/Vol] 131 mmol/L Low 135 - 145 mmol/L [facility] Urea nitrogen [Mass/Vol] 24 mg/dL High 7 - 17 mg/dL [facility] IDNon 03-24-2024 IDN 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 Patient vitals stable, chronic conditions monitor and maintained. Normal [facility] IDN Normal [facility] Laboratory - Chemistry and C hemistry - challengeon 03-24-2024 Glucose [Mass/Vol] 221 mg/dL High 70 - 100 mg/dL [facility] Glucose [Mass/Vol] 294 mg/dL High 70 - 100 mg/dL [facility] Magnesium [Mass/Vol] 2.1 mg/dL 1.6 - 2 .3 mg/dL [facility] Glucose [Mass/Vol] 175 mg/dL High 70 - 100 mg/dL [facility] Glucose [Mass/Vol] 192 mg/dL High 70 - 100 mg/dL [facility] MAGNESIUMon 03-24-2024 Magnesium [Mass/Vol] 2.1 mg/dL Normal 1.6-2.3 [facility] Comment on above: Performed By: #### L [id number], [id number], [id number] ####Choral Director: MESERET PAULA ([id number])[facility] ([address] Magnesium [Mass/Vol]on 03-24 Interpretation and review of laboratory results Normal [facility] No Panel Informationon 03-24 Interpretation and review of laboratory results Abnormal [facility] Interpretation and review of laboratory results Abnormal [facility] Interpretation and review of laboratory results Abnormal [facility] Interpretation and review of laboratory results Abnormal [facility] Interpretation and review of laboratory results Abnormal [facility] Nursing Noteon 03-24-2024 Nursing Note Patient awakens easily, resting in bed, but adamantly refuses am blood draw, despite encouragement. Safety measures maintained. Call light in reach. Normal [facility] PHOSPHORUSon 03-24-2024 Phosphate [Mass/Vol] 4.7 mg/dL High 2.5-4.5 [facility] Comment on above: Performed By: #### L [id number], [id number], [id number] ####Choral Director: MESERET PAULA ([phone])[address] Phosphate [Moles/Vol]on 02-25 Phosphate [Mass/Vol] 4.7 mg/dL High 2.5 - 4 .5 mg/dL [facility] Progress Noteon 03-24-2024 Progress Note Normal [facility] Progress Note Normal [facility] CARECOORDon 03-23-2024 CARECOORD Normal [facility] CBC W Auto Differential pane l (Bld)Ordered By: Teddy Esquivel on 03-23-2024 Erythrocyte distribution width (RBC) [Ratio] 13.1 % 11.5 - 15.0 % [facility] Hematocrit (Bld) [Volume fraction] 43.8 % 35.0 - 47.0 % [facility] Hemoglobin (Bld) [Mass/Vol] 14.3 g/dL 11.7 - 16.0 g/dL [facility] Interpretation and review of laboratory results Abnormal [facility] MCH (RBC) [Entitic mass] 28.0 pg 26.0 - 34.0 pg [facility] MCHC (RBC) [Mass/Vol] 32.6 % 30.5 - 36.0 % [facility] MCV (RBC) [Entitic vol] 85.9 fL 77.0 - 99.0 fL [facility] Platelet mean volume (Bld) [Entitic vol] 12.5 fL 9.0 - 12.7 fL [facility] Platelets (Bld) [#/Vol] 324 10*3/uL 140 - 440 10*3/uL [facility] RBC (Bld) [#/Vol] 5.10 10*6/uL 3.80 - 5.2 0 10*6/uL [facility] WBC (Bld) [#/Vol] 16.4 10*3/uL High 3.6 - 10.7 10*3/uL [facility] CBC WITH AUTO DIFFERENTIALon 03-23-2024 Erythrocyte distribution width (RBC) [Ratio] 13.1 % Normal 11.5-15.0 [facility] Comment on above: Performed By: #### L [id number], [id number] ####Choral Director: MESERET PAULA ([phone])[address] Hematocrit (Bld) [Volume fraction] 43.8 % Normal 35.0-47.0 [facility] Comment on above: Performed By: #### Yumiko [id number], [id number] ####Choral Director: MESERET [phone])[address] Hemoglobin (Bld) [Mass/Vol] 14.3 g/dL Normal 11.7-16.0 [facility] Comment on above: Performed By: #### Yumiko [id number], [id number] ####Choral Director: MESERET PAULA ([id number])[address] MCH (RBC) [Entitic mass] 28.0 pg Normal 26.0-34.0 [facility] Comment on above: Performed By: #### L [id number], [id number] ####Choral Director: MESERET [phone])[address] MCHC 32.6 % Normal 30.5-36.0 [facility] Comment on above: Performed By: #### L [id number], [id number] ####Choral Director: MESERET PAULA ([id number])[facility])[address] [place] [address] MCV (RBC) [Entitic vol] 85.9 fL Normal 77.0-99.0 [facility] Comment on above: Performed By: #### L [id number], [id number] ####Choral Director: MESERET PAULA ([phone])[facility] ([facility])[address] [place] [address] Platelet mean volume (Bld) [Entitic vol] 12.5 fL Normal 9.0-12.7 [facility] Comment on above: Performed By: #### L [id number], [id number] ####Choral Director: MESERET PAULA ([id number])[facility] ([facility])[address] [place] [address] Platelets (Bld) [#/Vol] 324 10*3/uL Normal 140-440 [facility] Comment on above: Performed By: #### L [id number], [id number] ####Choral Director: MESERET PAULA ([id number])[facility])[address] [place] [address] RBC (Bld) [#/Vol] 5.10 10*6/uL Normal 3.80-5.20 [facility] Comment on above: Performed By: #### L [id number], [id number] ####Choral Director: MESERET PAULA ([id number])[facility])[address] [place] [address] WBC (Bld) [#/Vol] 16.4 10*3/uL High 3.6-10.7 [facility] Comment on above: Performed By: #### L [id number], [id number] ####Choral Director: MESERET PAULA ([phone])[facility])[address] [place] [address] COMPREHENSIVE METABOLIC PANE [place] 03-23-2024 Albumin [Mass/Vol] 4.1 g/dL Normal 3.5-5.0 [facility] Comment on above: Performed By: #### Yumiko RAPHAEL, LAB17, [id number] ####Choral Director: MESERET PAULA ([phone])[facility] [place] [address] ALP [Catalytic activity/Vol] 136 U/L High 38-126 [facility] Comment on above: Performed By: #### Yumiko RAPHAEL, LAB17, [id number] ####Choral Director: MESERET PAULA ([phone])[facility] ([facility])[address] [place] [address] ALT [Catalytic activity/Vol] 52 U/L High 0-34 [facility] Comment on above: Performed By: #### Yumiko RAPHAEL, LAB17, [id number] ####Choral Director: MESERET PAULA ([phone])[facility] [place] [address] Anion gap [Moles/Vol] 9 mmol/L Normal 3-13 [facility] Comment on above: Performed By: #### Yumiko RAPHAEL, LAB17, [id number] ####Choral Director: MESERET PAULA ([phone])[facility] ([facility])[address] [place] [address] AST [Catalytic activity/Vol] 47 U/L High 15-46 [facility] Comment on above: Performed By: #### Yumiko RAPHAEL, LAB17, [id number] ####Choral Director: MESERET PAULA ([phone])[facility] ([facility])[address] [place] [address] [place] Bilirubin [Mass/Vol] 0.8 mg/dL Normal 0.2-1.3 [facility] Comment on above: Performed By: #### Yumiko RAPHAEL, LAB17, [id number] ####Choral Director: MESERET PAULA ([phone])[facility] ([facility])[address] [place] [address] [place] Calcium [Mass/Vol] 9.7 mg/dL Normal 8.4-10.4 [facility] Comment on above: Performed By: #### Yumiko ABSteven, LAB17, [id number] ####Choral Director: MESERET PAULA ([phone])[facility])[address] [place] [address] Chloride [Moles/Vol] 103 mmol/L Normal 98-107 [facility] Comment on above: Performed By: #### Yumiko RAPHAEL, LAB17, [id number] ####Choral Director: MESERET PAULA ([phone])[facility] [place] [address] CO2 [Moles/Vol] 21 mmol/L Low 22-30 [facility] Comment on above: Performed By: #### Yumiko RAPHAEL, LAB17, [id number] ####Choral Director: MESERET PAULA ([phone])[facility] ([facility])[address] [place] [address] Creatinine [Mass/Vol] 1.25 mg/dL High 0.52-1.04 [facility] Comment on above: Performed By: #### Yumiko RAPHAEL, LAB17, [id number] ####Choral Director: MESERET PAULA ([phone])[facility] ([facility])[address] [place] [address] [place] GLOMERULAR FILTRATION RATE ML/MIN/1.73 SQ M.PREDICTED 52.0 mL/min/1.73m*2 Low >60.0 [facility] Comment on above: Result Comment: Calc ulation based on the Chronic Kidney Disease Epidemiology Collaboration (CKD-EPI) equation refit without adjustment for race Performed By: #### L AB103, LAB17, [id number] ####Choral Director: MESERET PAULA ([phone])[facility] ([facility])[address] [place] [address] [place] Glucose [Mass/Vol] 183 mg/dL High 70-100 [facility] Comment on above: Performed By: #### Yumiko AB103, LAB17, [id number] ####Choral Director: MESERET [phone])[facility])[address] [place] [address] Potassium [Moles/Vol] 4.8 mmol/L Normal 3.5-5.1 [facility] Comment on above: Performed By: #### L AB103, LAB17, [id number] ####Choral Director: MESERET PAULA ([phone])[facility])[address] [place] [address] Protein [Mass/Vol] 8.2 g/dL Normal 6.3-8.2 [facility] Comment on above: Performed By: #### L AB103, LAB17, [id number] ####Choral Director: MESERET PAULA ([phone])[facility])[address] [place] [address] Sodium [Moles/Vol] 134 mmol/L Low 135-145 [facility] Comment on above: Performed By: #### L AB103, LAB17, [id number] ####Choral Director: MESERET PAULA ([phone])[facility] ([facility])[address] [place] [address] Urea nitrogen [Mass/Vol] 22 mg/dL High 7-17 [facility] Comment on above: Performed By: #### L AB103, LAB17, [id number] ####Choral Director: MESERET PAULA ([phone])[facility])[address] [place] [address] CREATININE, URINE, RANDOMon 03-23-2024 CREATININE, URINE 92.3 mg/dL Normal No Range [facility] Comment on above: Performed By: #### L [id number], [id number] ####Choral Director: MESERET PAULA ([phone])[facility])[address] [place] [address] Comprehensive metabolic 1998 panelon 03-23-2024 Albumin [Mass/Vol] 4.1 g/dL 3.5 - 5.0 g/dL [facility] ALP [Catalytic activity/Vol] 136 U/L High 38 - 126 U/L [facility] ALT [Catalytic activity/Vol] 52 U/L High 0 - 34 U/L [facility] Anion gap [Moles/Vol] 9 mmol/L 3 - 13 mmol/L [facility] AST [Catalytic activity/Vol] 47 U/L High 15 - 46 U/L [facility] Bilirubin [Mass/Vol] 0.8 mg/dL 0.2 - 1 .3 mg/dL [facility] Calcium [Mass/Vol] 9.7 mg/dL 8.4 - 10. 4 mg/dL [facility] Chloride [Moles/Vol] 103 mmol/L 98 - 10 7 mmol/L [facility] CO2 [Moles/Vol] 21 mmol/L Low 22 - 30 mmol/L [facility] Creatinine [Mass/Vol] 1.25 mg/dL High 0.52 - 1.04 mg/dL [facility] GFR/1.73 sq M.predicted MDRD (S/P/Bld) [Vol rate/Area] 52.0 mL/min/{1.73_m2} Low - PINF [facility] Glucose [Mass/Vol] 183 mg/dL High 70 - 100 mg/dL [facility] Interpretation and review of laboratory results Abnormal [facility] Potassium [Moles/Vol] 4.8 mmol/L 3.5 - 5.1 mmol/L [facility] Protein [Mass/Vol] 8.2 g/dL 6.3 - 8.2 g/dL [facility] Sodium [Moles/Vol] 134 mmol/L Low 135 - 145 mmol/L [facility] Urea nitrogen [Mass/Vol] 22 mg/dL High 7 - 17 mg/dL [facility] Creatinine (U) [Mass/Vol]on 03-23-2024 CREATININE, URINE 92.3 mg/dL No Range [facility] ealth [facility] IDNon 03-23-2024 IDN Patient denies pain throughout shift. She remains free from injury, calls appropriately for standby assist to and from bathroom. Normal [facility] Laboratory - Chemistry and C hemistry - challengeon 03-23-2024 Glucose [Mass/Vol] 262 mg/dL High 70 - 100 mg/dL [facility] Glucose [Mass/Vol] 163 mg/dL High 70 - 100 mg/dL [facility] Sodium (24H U) [Mass/Vol] 92 mmol/L High 30 - 90 mmol/L [facility] Glucose [Mass/Vol] 322 mg/dL High 70 - 100 mg/dL [facility] Glucose [Mass/Vol] 182 mg/dL High 70 - 100 mg/dL [facility] Magnesium [Mass/Vol] 2.1 mg/dL 1.6 - 2 .3 mg/dL [facility] Laboratory - Hematology and Cell countson 03-23-2024 Basophils (Bld) [#/Vol] 0.3 10*3/uL High 0.0 - 0.2 10*3/uL [facility] Basophils/100 WBC (Bld) 2 % 0 - 2 % [facility] Eosinophils (Bld) [#/Vol] 0.2 10*3/uL 0.0 - 0.5 10*3/uL [facility] Eosinophils/100 WBC (Bld) 1 % 0 - 6 % [facility] Lymphocytes (Bld) [#/Vol] 5.2 10*3/uL High 1.0 - 4.3 10*3/uL [facility] Lymphocytes/100 WBC (Bld) 32 % 15 - 45 % [facility] Monocytes (Bld) [#/Vol] 1.3 10*3/uL High 0.0 - 0.9 10*3/uL [facility] Monocytes/100 WBC (Bld) 8 % 5 - 13 % [facility] Neutrophils (Bld) [#/Vol] 9.2 10*3/uL High 1.8 - 7.5 10*3/uL [facility] Neutrophils.hypersegmen fabio LM Ql (Bld) Present Abnormal (none) [facility] RBC morphology finding Nom (Bld) Normal [facility] Segmented neutrophils/100 WBC (Bld) 56 % 38 - 82 % [facility] Variant lymphocytes (Bld) [#/Vol] 0.2 10*3/uL High NINF - 0.0 10*3/uL [facility] Variant lymphocytes/100 WBC (Bld) 1 % High NINF - 0 % [facility] MAGNESIUMon 03-23-2024 Magnesium [Mass/Vol] 2.1 mg/dL Normal 1.6-2.3 [facility] Comment on above: Performed By: #### L AB103, LAB17, [id number] ####Choral Director: MESERET PAULA ([phone])[facility] ([address] MANUAL DIFFERENTIAL (CELLAVI SUKH)on 03-23-2024 BAND NEUTROPHILS TOTAL PER COUNTED LEUKOCYTES BY MANUAL COUNT Normal [facility] Comment on above: Performed By: #### L [id number], [id number] ####Choral Director: MESERET PAULA ([phone])[facility] ([facility])[address] [place] [address] [place] BASOPHILS (10*3/UL) IN BLOOD-CELLAVISION 0.3 10*3/uL High 0.0-0.2 [facility] Comment on above: Performed By: #### L [id number], [id number] ####Choral Director: MESERET PAULA ([id number])[facility] ([facility])[address] [place] [address] [place] BASOPHILS TOTAL PER COUNTED LEUKOCYTES BY MANUAL COUNT 2 Normal [facility] Comment on above: Performed By: #### L [id number], [id number] ####Choral Director: MESERET PAULA ([phone])[facility] ([facility])[address] [place] [address] [place] BASOPHILS/100 LEUKOCYTES IN BLOOD-CELLAVISION 2 % Normal 0-2 [facility] Comment on above: Performed By: #### L [id number], [id number] ####Choral Director: MESERET PAULA ([phone])[facility] ([facility])[address] [place] [address] [place] BLASTS TOTAL PER COUNTED LEUKOCYTES BY MANUAL COUNT [facility] Comment on above: Performed By: #### L [id number], [id number] ####Choral Director: MESERET PAULA ([phone])[facility] ([facility])[address] [place] [address] [place] EOSINOPHILS (10*3/UL) IN BLOOD-CELLAVISION 0.2 10*3/uL Normal 0.0-0.5 [facility] Comment on above: Performed By: #### L [id number], [id number] ####Choral Director: MESERET PAULA ([phone])[facility] ([facility])[address] [place], [place] [id number] [place] EOSINOPHILS TOTAL PER COUNTED LEUKOCYTES BY MANUAL COUNT 1 Normal 0-1 [facility] Comment on above: Performed By: #### L [id number], [id number] ####Choral Director: MESERET PAULA ([phone])[facility] ([facility])[address] [place] [address] [place] EOSINOPHILS/100 LEUKOCYTES IN BLOOD-CELLAVISION 1 % Normal 0-6 [facility] Comment on above: Performed By: #### L [id number], [id number] ####Choral Director: MESERET PAULA ([phone])[facility] ([facility])[address] [place] [address] HYPERSEGMENTED NEUTROPHILS IN BLOOD BY LIGHT MICROSCOPY (PRESENT) Present Abnormal (none) [facility] Comment on above: Performed By: #### L [id number], [id number] ####Choral Director: MESERET PAULA ([phone])[facility] ([facility])[address] [place] [address] [place] LYMPHOCYTE VARIANT/100 LEUKOCYTES IN BLOOD- CELLAVISION 1 % High <=0 [facility] Comment on above: Performed By: #### L [id number], [id number] ####Choral Director: MESERET PAULA ([phone])[facility] ([facility])[address] [place] [address] [place] LYMPHOCYTES (10*3/UL) IN BLOOD-CELLAVISION 5.2 10*3/uL High 1.0-4.3 [facility] Comment on above: Performed By: #### L [id number], [id number] ####Choral Director: MESERET PAULA ([phone])[facility] ([facility])[address] [place] [address] [place] LYMPHOCYTES TOTAL PER COUNTED LEUKOCYTES BY MANUAL COUNT 32 Normal [facility] Comment on above: Performed By: #### L [id number], [id number] ####Choral Director: MESERET PAULA ([phone])[facility] ([facility])[address] [place] [address] [place] LYMPHOCYTES/100 LEUKOCYTES IN BLOOD-CELLAVISION 32 % Normal 15-45 [facility] Comment on above: Performed By: #### L [id number], [id number] ####Choral Director: MESERET PAULA ([phone])[facility] ([facility])[address] [place] [address] [place] METAMYELOCYTES TOTAL PER COUNTED LEUKOCYTES BY MANUAL COUNT Normal [facility] Comment on above: Performed By: #### L [id number], [id number] ####Choral Director: MESERET PAULA ([phone])[facility] ([facility])[address] [place] [address] [place] MONOCYTES (10*3/UL) IN BLOOD-CELLAVISION 1.3 10*3/uL High 0.0-0.9 [facility] Comment on above: Performed By: #### L [id number], [id number] ####Choral Director: MESERET PAULA ([phone])[facility] ([facility])[address] [place] [address] [place] MONOCYTES TOTAL PER COUNTED LEUKOCYTES BY MANUAL COUNT 8 Normal [facility] Comment on above: Performed By: #### L [id number], [id number] ####Choral Director: MESERET PAULA ([phone])[facility] ([facility])[address] [place] [address] [place] MONOCYTES/100 LEUKOCYTES IN BLOOD-RAMIRO 8 % Normal 5-13 [facility] Comment on above: Performed By: #### L [id number], [id number] ####Choral Director: MESERET PAULA ([phone])[facility] ([facility])[address] [place] [address] [place] MYELOCYTES COUNTED BY MANUAL COUNT Normal [facility] Comment on above: Performed By: #### L [id number], [id number] ####Choral Director: MESERET PAULA ([phone])[facility] ([facility])[address] [place] [address] [place] NEUTROPHILS TOTAL PER COUNTED LEUKOCYTES BY MANUAL COUNT 56 Normal [facility] Comment on above: Performed By: #### L [id number], [id number] ####Choral Director: MESERET PAULA ([phone])[facility] ([facility] [place] [address] [place] PROMYELOCYTES TOTAL PER COUNTED LEUKOCYTES BY MANUAL COUNT Normal [facility] Comment on above: Performed By: #### L [id number], [id number] ####Choral Director: MESERET PAULA ([phone])[facility] ([facility])[address] [place] [address] [place] RBC MORPHOLOGY IN BLOOD Normal Normal S [facility] Comment on above: Performed By: #### L [id number], [id number] ####Choral Director: MESERET PAULA ([phone])[facility] ([facility])[address] [place] [address] SEGMENTED NEUTROPHILS (10*3/UL) IN BLOOD-CELLAVISION 9.2 10*3/uL High 1.8-7.5 [facility] Comment on above: Performed By: #### L [id number], [id number] ####Choral Director: MESERET PAULA ([id number])[facility] ([facility])[address] [place] [address] [place] SEGMENTED NEUTROPHILS/100 LEUKOCYTES-CE 56 % Normal 38-82 [facility] Comment on above: Performed By: #### L [id number], [id number] ####Choral Director: MESERET PAULA ([id number])[facility] ([facility])[address] [place] [address] UNCLASSIFIED CELLS TOTAL PER COUNTED LEUKOCYTES BY MANUAL COUNT Normal [facility] Comment on above: Performed By: #### L [id number], [id number] ####Choral Director: MESERET PAULA ([id number])[facility])[address] [place] [address] [place] VARIANT LYMPHOCYTES (10*3/UL) IN BLOOD-CELLAVISION 0.2 10*3/uL High <=0.0 [facility] Comment on above: Performed By: #### L [id number], [id number] ####Choral Director: MESERET PAULA ([phone])[facility])[address] [place] [address] VARIANT LYMPHOCYTES TOTAL PER COUNTED LEUKOCYTES BY MANUAL COUNT 1 Normal [facility] Comment on above: Performed By: #### L [id number], [id number] ####Choral Director: MESERET PAULA ([phone])[facility])[address] [place] [address] No Panel Informationon 03-23 Interpretation and review of laboratory results Abnormal [facility] Interpretation and review of laboratory results Abnormal [facility] Interpretation and review of laboratory results Abnormal [facility] Interpretation and review of laboratory results Abnormal [facility] Interpretation and review of laboratory results Abnormal [facility] Atypical Lymphocytes Manual 1 [facility] Basophils Manual 2 [facility] Eosinophils Manual 1 0 - 1 [facility] Interpretation and review of laboratory results Abnormal [facility] Lymphocytes Manual 32 [facility] Monocytes Manual 8 [facility] Neutrophils Manual [address] [facility] Interpretation and review of laboratory results Normal [facility] PHOSPHORUSon 03-23-2024 Phosphate [Mass/Vol] 4.5 mg/dL Normal 2.5-4.5 [facility] Comment on above: Performed By: #### L [id number], LAB17, [id number] ####Choral Director: MESERET PAULA ([phone])[facility] ([facility])[address] [place] [address] Phosphate [Moles/Vol]on 02-24 Phosphate [Mass/Vol] 4.5 mg/dL 2.5 - 4 .5 mg/dL [facility] Progress Noteon 03-23-2024 Progress Note [facility] Normal [facility] SODIUM, URINE, RANDOMon 02-24 Sodium (U) [Moles/Vol] 92 mmol/L High 30-90 [facility] Comment on above: Performed By: #### L [id number], [id number] ####Choral Director: MESERET PAULA ([phone])[facility] ([facility])[address] [place] [address] CARECOORDon 03-22-2024 [place] Auth pending to [facility]. Spoke with [facility] liaison, do not anticipate hearing today but potentially over the weekend. Will task weekend staff to follow for potential discharge. Normal [facility] CBC W Auto Differential pane l (Bld)on 03-22-2024 Basophils (Bld) [#/Vol] 0.1 10*3/uL 0.0 - 0.2 10*3/uL [facility] Basophils/100 WBC (Bld) 0.4 % 0.0 - 2.0 % [facility] Eosinophils (Bld) [#/Vol] 0.2 10*3/uL 0.0 - 0.5 10*3/uL [facility] Eosinophils/100 WBC (Bld) 1.3 % 0.0 - 6.0 % [facility] Erythrocyte distribution width (RBC) [Ratio] 13.2 % 11.5 - 15.0 % [facility] Hematocrit (Bld) [Volume fraction] 43.8 % 35.0 - 47.0 % [facility] Hemoglobin (Bld) [Mass/Vol] 14.3 g/dL 11.7 - 16.0 g/dL [facility] Immature granulocytes (Bld) [#/Vol] 0.1 10*3/uL High NINF - 0.1 10*3/uL [facility] Immature granulocytes/100 WBC (Bld) 0.6 % 0.0 - 2.0 % [facility] Interpretation and review of laboratory results Abnormal [facility] Lymphocytes (Bld) [#/Vol] 3.6 10*3/uL 1.0 - 4.3 10*3/uL [facility] Lymphocytes/100 WBC (Bld) 25.1 % 15.0 - 45.0 % [facility] MCH (RBC) [Entitic mass] 28.0 pg 26.0 - 34.0 pg [facility] MCHC (RBC) [Mass/Vol] 32.6 % 30.5 - 36.0 % [facility] MCV (RBC) [Entitic vol] 85.7 fL 77.0 - 99.0 fL [facility] Monocytes (Bld) [#/Vol] 1.6 10*3/uL High 0.0 - 0.9 10*3/uL [facility] Monocytes/100 WBC (Bld) 11.2 % 5.0 - 13.0 % [facility] Neutrophils (Bld) [#/Vol] 8.8 10*3/uL High 1.8 - 7.5 10*3/uL [facility] Neutrophils/100 WBC (Bld) 61.4 % 38.0 - 82.0 % [facility] Nucleated RBC/100 WBC (Bld) [Ratio] 0.0 % [facility] Platelet mean volume (Bld) [Entitic vol] 12.7 fL 9.0 - 12.7 fL [facility] Platelets (Bld) [#/Vol] 286 10*3/uL 140 - 440 10*3/uL [facility] RBC (Bld) [#/Vol] 5.11 10*6/uL 3.80 - 5.2 0 10*6/uL [facility] WBC (Bld) [#/Vol] 14.3 10*3/uL High 3.6 - 10.7 10*3/uL [facility] CBC WITH AUTO DIFFERENTIALon 03-22-2024 Basophils (Bld) [#/Vol] 0.1 10*3/uL Normal 0.0-0.2 [facility] Comment on above: Performed By: #### L [id number] ####Choral Director: MESERET [id number])[facility] ([facility])[address] [place] [address] Basophils/100 WBC (Bld) 0.4 % Normal 0.0-2.0 S [facility] Comment on above: Performed By: #### L [id number] ####Choral Director: MESERET PAULA ([phone])[facility] ([facility])[address] [place] [address] [place] Eosinophils (Bld) [#/Vol] 0.2 10*3/uL Normal 0.0-0.5 [facility] Comment on above: Performed By: #### L [id number] ####Choral Director: MESERET PAULA ([id number])[facility] ([facility])[address] [place] [address] [place] Eosinophils/100 WBC (Bld) 1.3 % Normal 0.0-6.0 [facility] Comment on above: Performed By: #### L [id number] ####Choral Director: MESERET PAULA ([phone])[facility])[address] [place] [address] Erythrocyte distribution width (RBC) [Ratio] 13.2 % Normal 11.5-15.0 [facility] Comment on above: Performed By: #### L [id number] ####Choral Director: MESERET PAULA ([phone])[facility])[address] [place] [address] Hematocrit (Bld) [Volume fraction] 43.8 % Normal 35.0-47.0 [facility] Comment on above: Performed By: #### L [id number] ####Choral Director: MESREET PAULA ([id number])[address] Hemoglobin (Bld) [Mass/Vol] 14.3 g/dL Normal 11.7-16.0 [facility] Comment on above: Performed By: #### L [id number] ####Choral Director: MESERET PAULA ([phone])[address] IMMATURE GRANS % 0.6 % Normal 0.0-2.[address] [facility] Comment on above: Performed By: #### L [id number] ####Choral Director: MESERET PAULA ([phone])[facility])[address] [place] [address] IMMATURE GRANS ABSOLUTE 0.1 10*3/uL High <0.1 [facility] Comment on above: Performed By: #### L [id number] ####Choral Director: MESERET PAULA ([phone])[facility])[address] [place] [address] Lymphocytes (Bld) [#/Vol] 3.6 10*3/uL Normal 1.0-4.3 [facility] Comment on above: Performed By: #### L [id number] ####Choral Director: MESERET PAULA ([id number])[facility] ([facility])[address] [place] [address] Lymphocytes/100 WBC (Bld) 25.1 % Normal 15.0-45.0 [facility] Comment on above: Performed By: #### L [id number] ####Choral Director: MESERET PAULA ([phone])[facility])[address] [place] [address] MCH (RBC) [Entitic mass] 28.0 pg Normal 26.0-34.0 [facility] Comment on above: Performed By: #### L [id number] ####Choral Director: MESERET PAULA ([id number])[facility])[address] [place] [address] MCHC 32.6 % Normal 30.5-36.0 [facility] Comment on above: Performed By: #### L [id number] ####Choral Director: MESERET PAULA ([id number])[facility] ([facility])[address] [place] [address] MCV (RBC) [Entitic vol] 85.7 fL Normal 77.0-99.0 S [facility] Comment on above: Performed By: #### L [id number] ####Choral Director: MESERET PAULA ([id number])[facility])[address] [place] [address] Monocytes (Bld) [#/Vol] 1.6 10*3/uL High 0.0-0.9 [facility] Comment on above: Performed By: #### L [id number] ####Choral Director: MESERET PAULA ([id number])[facility])[address] [place] [address] Monocytes/100 WBC (Bld) 11.2 % Normal 5.0-13.0 S [facility] Comment on above: Performed By: #### L [id number] ####Choral Director: MESERET PAULA ([phone])[facility] [place] [address] NEUTROPHILS ABSOLUTE 8.8 10*3/uL High 1.8-7.5 [facility] Comment on above: Performed By: #### L [id number] ####Choral Director: MESERET PAULA ([phone])[facility] ([facility])[address] [place] [address] Neutrophils/100 WBC (Bld) 61.4 % Normal 38.0-82.0 [facility] Comment on above: Performed By: #### L [id number] ####Choral Director: MESERET PAULA ([id number])[facility] ([facility])[address] [place] [address] NRBC 0.0 /100 WBCs Normal 0.0-2.0 [facility] Comment on above: Performed By: #### L [id number] ####Choral Director: MESERET PAULA ([phone])[facility] ([facility])[address] [place] [address] Platelet mean volume (Bld) [Entitic vol] 12.7 fL Normal 9.0-12.7 [facility] Comment on above: Performed By: #### L [id number] ####Choral Director: MESERET PAULA ([phone])[facility] ([facility])[address] [place] [address] Platelets (Bld) [#/Vol] 286 10*3/uL Normal 140-440 [facility] Comment on above: Performed By: #### L [id number] ####Choral Director: MESERET PAULA ([id number])[facility] ([facility])[address] [place] [address] RBC (Bld) [#/Vol] 5.11 10*6/uL Normal 3.80-5.20 [facility] Comment on above: Performed By: #### L [id number] ####Choral Director: MESERET PAULA ([id number])[facility] ([facility])[address] [place] [address] [place] WBC (Bld) [#/Vol] 14.3 10*3/uL High 3.6-10.7 [facility] Comment on above: Performed By: #### L [id number] ####Choral Director: MESERET PAULA ([id number])[facility] ([facility])[address] [place] [address] COMPREHENSIVE METABOLIC PANE [place] 03-22-2024 Albumin [Mass/Vol] 3.9 g/dL Normal 3.5-5.0 [facility] Comment on above: Performed By: #### Yumiko AB103, LAB17, [id number] ####Choral Director: MESERET PAULA ([phone])[facility] ([facility])[address] [place] [address] ALP [Catalytic activity/Vol] 122 U/L Normal 38-126 [facility] Comment on above: Performed By: #### Yumiko RAPHAEL, LAB17, [id number] ####Choral Director: MESERET PAULA ([phone])[facility] ([facility])[address] [place] [address] ALT [Catalytic activity/Vol] 48 U/L High 0-34 [facility] Comment on above: Performed By: #### Yumiko RAPHAEL, LAB17, [id number] ####Choral Director: MESERET PAULA ([id number])[facility] ([facility])[address] [place] [address] Anion gap [Moles/Vol] 10 mmol/L Normal 3-13 [facility] Comment on above: Performed By: #### Ymuiko RAPHAEL, LAB17, [id number] ####Choral Director: MESERET PAULA ([id number])[facility] ([facility])[address] [place] [address] [place] AST [Catalytic activity/Vol] 44 U/L Normal 15-46 [facility] Comment on above: Performed By: #### Yumiko AB103, LAB17, [id number] ####Choral Director: MESERET PAULA ([phone])[facility])[address] [place] [address] Bilirubin [Mass/Vol] 0.7 mg/dL Normal 0.2-1.3 [facility] Comment on above: Performed By: #### Yumiko ABSteven, LAB17, [id number] ####Choral Director: MESERET PAULA ([phone])[facility])[address] [place] [address] Calcium [Mass/Vol] 9.4 mg/dL Normal 8.4-10.4 [facility] Comment on above: Performed By: #### Yumiko RAPHAEL, LAB17, [id number] ####Choral Director: MESERET PAULA ([phone])[facility])[address] [place] [address] Chloride [Moles/Vol] 105 mmol/L Normal 98-107 [facility] Comment on above: Performed By: #### Yumiko RAPHAEL, LAB17, [id number] ####Choral Director: MESERET PAULA ([id number])[facility] ([facility])[address] [place] [address] CO2 [Moles/Vol] 21 mmol/L Low 22-30 [facility] Comment on above: Performed By: #### Yumiko RAPHAEL, LAB17, [id number] ####Choral Director: MESERET PAULA ([phone])[facility])[address] [place] [address] Creatinine [Mass/Vol] 1.11 mg/dL High 0.52-1.04 [facility] Comment on above: Performed By: #### Yumiko RAPHAEL, LAB17, [id number] ####Choral Director: MESERET PAULA ([id number])[facility])[address] [place] [address] GLOMERULAR FILTRATION RATE ML/MIN/1.73 SQ M.PREDICTED 59.9 mL/min/1.73m*2 Low >60.0 [facility] Comment on above: Result Comment: Calc ulation based on the Chronic Kidney Disease Epidemiology Collaboration (CKD-EPI) equation refit without adjustment for race Performed By: #### Yumiko ABSteven, LAB17, [id number] ####Choral Director: MESERET PAULA ([phone])[facility] ([facility])[address] [place] [address] Glucose [Mass/Vol] 187 mg/dL High 70-100 [facility] Comment on above: Performed By: #### Yumiko LAWRENCE103, LAB17, [id number] ####Choral Director: MESERET PAULA ([id number])[facility] ([facility])[address] [place] [address] Potassium [Moles/Vol] 4.6 mmol/L Normal 3.5-5.1 [facility] Comment on above: Performed By: #### Yumiko LAWRENCE103, LAB17, [id number] ####Choral Director: MESERET PAULA ([phone])[facility] ([facility])[address] [place] [address] Protein [Mass/Vol] 7.6 g/dL Normal 6.3-8.2 [facility] Comment on above: Performed By: #### Yumiko RAPHAEL, LAB17, [id number] ####Choral Director: MESERET PAULA ([phone])[facility] ([facility])[address] [place] [address] Sodium [Moles/Vol] 135 mmol/L Normal 135-145 [facility] Comment on above: Performed By: #### Yumiko RAPHAEL, LAB17, [id number] ####Choral Director: MESERET PAULA ([phone])[facility] ([facility])[address] [place] [address] Urea nitrogen [Mass/Vol] 24 mg/dL High 7-17 [facility] Comment on above: Performed By: #### Yumiko RAPHAEL, LAB17, [id number] ####Choral Director: MESERET PAULA ([phone])[facility] ([facility])[address] [place] [address] [place] Comprehensive metabolic 1998 panelon 03-22-2024 Albumin [Mass/Vol] 3.9 g/dL 3.5 - 5.0 g/dL [facility] ALP [Catalytic activity/Vol] 122 U/L 38 - 126 U/L [facility] ALT [Catalytic activity/Vol] 48 U/L High 0 - 34 U/L [facility] Anion gap [Moles/Vol] 10 mmol/L 3 - 13 mmol/L [facility] AST [Catalytic activity/Vol] 44 U/L 15 - 46 U/L [facility] Bilirubin [Mass/Vol] 0.7 mg/dL 0.2 - 1 .3 mg/dL [facility] Calcium [Mass/Vol] 9.4 mg/dL 8.4 - 10. 4 mg/dL [facility] Chloride [Moles/Vol] 105 mmol/L 98 - 10 7 mmol/L [facility] CO2 [Moles/Vol] 21 mmol/L Low 22 - 30 mmol/L [facility] Creatinine [Mass/Vol] 1.11 mg/dL High 0.52 - 1.04 mg/dL [facility] GFR/1.73 sq M.predicted MDRD (S/P/Bld) [Vol rate/Area] 59.9 mL/min/{1.73_m2} Low - PINF [facility] Glucose [Mass/Vol] 187 mg/dL High 70 - 100 mg/dL [facility] Potassium [Moles/Vol] 4.6 mmol/L 3.5 - 5.1 mmol/L [facility] Protein [Mass/Vol] 7.6 g/dL 6.3 - 8.2 g/dL [facility] Sodium [Moles/Vol] 135 mmol/L 135 - 145 mmol/L [facility] Urea nitrogen [Mass/Vol] 24 mg/dL High 7 - 17 mg/dL [facility] Laboratory - Chemistry and C hemistry - challengeon 03-22-2024 Glucose [Mass/Vol] 199 mg/dL High 70 - 100 mg/dL [facility] Glucose [Mass/Vol] 202 mg/dL High 70 - 100 mg/dL [facility] Glucose [Mass/Vol] 392 mg/dL High 70 - 100 mg/dL [facility] Glucose [Mass/Vol] 204 mg/dL High 70 - 100 mg/dL [facility] Magnesium [Mass/Vol] 2.0 mg/dL 1.6 - 2 .3 mg/dL [facility] MAGNESIUMon 03-22-2024 Magnesium [Mass/Vol] 2.0 mg/dL Normal 1.6-2.3 [facility] Comment on above: Performed By: #### L AB103, LAB17, [id number] ####Choral Director: MESERET PAULA ([phone])[facility] [place] [address] [place] Magnesium [Mass/Vol]on 03-22 Interpretation and review of laboratory results Normal [facility] No Panel Informationon 03-22 Interpretation and review of laboratory results Abnormal [facility] Interpretation and review of laboratory results Abnormal [facility] Interpretation and review of laboratory results Abnormal [facility] Interpretation and review of laboratory results Abnormal [facility] Interpretation and review of laboratory results Abnormal [facility] Nursing Noteon 03-22-2024 Nursing Note [facility]. Vitals obtained, heart monitor on patient. Call light within reach, bed alarm on. Normal [facility] PHOSPHORUSon 03-22-2024 Phosphate [Mass/Vol] 5.1 mg/dL High 2.5-4.5 [facility] Comment on above: Performed By: #### L AB103, LAB17, [id number] ####Choral Director: MESERET PAULA ([phone])[facility] ([facility])[address] [place], [place] [id number] [place] Phosphate [Moles/Vol]on 02-24 Phosphate [Mass/Vol] 5.1 mg/dL High 2.5 - 4 .5 mg/dL [facility] Progress Noteon 03-22-2024 Progress Note [facility] Progress Note Normal [facility] Progress Note Normal [facility] Progress Note Normal [facility] Progress Note Normal [facility] CARECOORDon 03-21-2024 CARECOORD Normal [facility] CBC W Auto Differential pane l (Bld)on 03-21-2024 Basophils (Bld) [#/Vol] 0.1 10*3/uL 0.0 - 0.2 10*3/uL [facility] Basophils/100 WBC (Bld) 0.5 % 0.0 - 2.0 % [facility] Eosinophils (Bld) [#/Vol] 0.2 10*3/uL 0.0 - 0.5 10*3/uL [facility] Eosinophils/100 WBC (Bld) 1.2 % 0.0 - 6.0 % [facility] Erythrocyte distribution width (RBC) [Ratio] 13.3 % 11.5 - 15.0 % [facility] Hematocrit (Bld) [Volume fraction] 43.5 % 35.0 - 47.0 % [facility] Hemoglobin (Bld) [Mass/Vol] 14.5 g/dL 11.7 - 16.0 g/dL [facility] Immature granulocytes (Bld) [#/Vol] 0.1 10*3/uL High NINF - 0.1 10*3/uL [facility] Immature granulocytes/100 WBC (Bld) 0.6 % 0.0 - 2.0 % [facility] Interpretation and review of laboratory results Abnormal [facility] Lymphocytes (Bld) [#/Vol] 3.3 10*3/uL 1.0 - 4.3 10*3/uL [facility] Lymphocytes/100 WBC (Bld) 23.4 % 15.0 - 45.0 % [facility] MCH (RBC) [Entitic mass] 28.8 pg 26.0 - 34.0 pg [facility] MCHC (RBC) [Mass/Vol] 33.3 % 30.5 - 36.0 % [facility] MCV (RBC) [Entitic vol] 86.3 fL 77.0 - 99.0 fL [facility] Monocytes (Bld) [#/Vol] 1.4 10*3/uL High 0.0 - 0.9 10*3/uL [facility] Monocytes/100 WBC (Bld) 9.9 % 5.0 - 13.0 % [facility] Neutrophils (Bld) [#/Vol] 9.2 10*3/uL High 1.8 - 7.5 10*3/uL [facility] Neutrophils/100 WBC (Bld) 64.4 % 38.0 - 82.0 % [facility] Nucleated RBC/100 WBC (Bld) [Ratio] 0.0 % [facility] Platelet mean volume (Bld) [Entitic vol] 12.9 fL High 9.0 - 12.7 fL [facility] Platelets (Bld) [#/Vol] 257 10*3/uL 140 - 440 10*3/uL [facility] RBC (Bld) [#/Vol] 5.04 10*6/uL 3.80 - 5.2 0 10*6/uL [facility] WBC (Bld) [#/Vol] 14.2 10*3/uL High 3.6 - 10.7 10*3/uL [facility] CBC WITH AUTO DIFFERENTIALon 03-21-2024 Basophils (Bld) [#/Vol] 0.1 10*3/uL Normal 0.0-0.2 [facility] Comment on above: Performed By: #### L [id number] ####Choral Director: MESERET PAULA ([id number])[facility])[address] [place] [address] Basophils/100 WBC (Bld) 0.5 % Normal 0.0-2.0 [facility] Comment on above: Performed By: #### L [id number] ####Choral Director: MESERET PAULA ([id number])[facility])[address] [place] [address] Eosinophils (Bld) [#/Vol] 0.2 10*3/uL Normal 0.0-0.5 [facility] Comment on above: Performed By: #### L [id number] ####Choral Director: MESERET PAULA ([id number])[facility])[address] [place] [address] Eosinophils/100 WBC (Bld) 1.2 % Normal 0.0-6.0 [facility] Comment on above: Performed By: #### L [id number] ####Choral Director: MESERET PAULA ([id number])[facility])[address] [place] [address] Erythrocyte distribution width (RBC) [Ratio] 13.3 % Normal 11.5-15.0 [facility] Comment on above: Performed By: #### L [id number] ####Choral Director: MESERET PAULA ([id number])[facility])[address] [place] [address] Hematocrit (Bld) [Volume fraction] 43.5 % Normal 35.0-47.0 [facility] Comment on above: Performed By: #### L [id number] ####Choral Director: MESERET PAULA ([id number])[facility])[address] [place] [address] Hemoglobin (Bld) [Mass/Vol] 14.5 g/dL Normal 11.7-16.0 [facility] Comment on above: Performed By: #### L [id number] ####Choral Director: MESERET PAULA ([id number])[facility])[address] [place] [address] IMMATURE GRANS % 0.6 % Normal 0.0-2.[address] [facility] Comment on above: Performed By: #### L [id number] ####Choral Director: MESERET PAULA ([id number])[facility])[address] [place] [address] IMMATURE GRANS ABSOLUTE 0.1 10*3/uL High <0.1 [facility] Comment on above: Performed By: #### L [id number] ####Choral Director: MESERET PAULA ([id number])[facility] ([facility])[address] [place] [address] Lymphocytes (Bld) [#/Vol] 3.3 10*3/uL Normal 1.0-4.3 [facility] Comment on above: Performed By: #### L [id number] ####Choral Director: MESERET PAULA ([id number])[facility])[address] [place] [address] Lymphocytes/100 WBC (Bld) 23.4 % Normal 15.0-45.0 [facility] Comment on above: Performed By: #### L [id number] ####Choral Director: MESERET PAULA ([id number])[facility])[address] [place] [address] MCH (RBC) [Entitic mass] 28.8 pg Normal 26.0-34.0 [facility] Comment on above: Performed By: #### L [id number] ####Choral Director: MESERET PAULA ([id number])[facility])[address] [place] [address] MCHC 33.3 % Normal 30.5-36.0 [facility] Comment on above: Performed By: #### L [id number] ####Choral Director: MESERET PAULA ([id number])[facility] ([facility])[address] [place] [address] MCV (RBC) [Entitic vol] 86.3 fL Normal 77.0-99.0 [facility] Comment on above: Performed By: #### L [id number] ####Choral Director: MESERET PAULA ([id number])[facility])[address] [place] [address] Monocytes (Bld) [#/Vol] 1.4 10*3/uL High 0.0-0.9 [facility] Comment on above: Performed By: #### L [id number] ####Choral Director: MESERET PAULA ([id number])[facility] ([facility])[address] [place] [address] Monocytes/100 WBC (Bld) 9.9 % Normal 5.0-13.0 [facility] Comment on above: Performed By: #### L [id number] ####Choral Director: MESERET PAULA ([id number])[facility])[address] [place] [address] NEUTROPHILS ABSOLUTE 9.2 10*3/uL High 1.8-7.5 [facility] Comment on above: Performed By: #### L [id number] ####Choral Director: MESERET PAULA ([id number])[facility])[address] [place] [address] Neutrophils/100 WBC (Bld) 64.4 % Normal 38.0-82.0 [facility] Comment on above: Performed By: #### L [id number] ####Choral Director: MESERET PAULA ([id number])[facility])[address] [place] [address] NRBC 0.0 /100 WBCs Normal 0.0-2.0 [facility] Comment on above: Performed By: #### L [id number] ####Choral Director: MESERET PAULA ([id number])[facility])[address] [place] [address] Platelet mean volume (Bld) [Entitic vol] 12.9 fL High 9.0-12.7 [facility] Comment on above: Performed By: #### L [id number] ####Choral Director: MESERET PAULA ([id number])[facility] ([facility])[address] [place] [address] Platelets (Bld) [#/Vol] 257 10*3/uL Normal 140-440 [facility] Comment on above: Performed By: #### L [id number] ####Choral Director: MESERET PAULA ([id number])[facility])[address] [place] [address] RBC (Bld) [#/Vol] 5.04 10*6/uL Normal 3.80-5.20 [facility] Comment on above: Performed By: #### L [id number] ####Choral Director: MESERET PAULA ([id number])[facility])[address] [place] [address] WBC (Bld) [#/Vol] 14.2 10*3/uL High 3.6-10.7 [facility] Comment on above: Performed By: #### L [id number] ####Choral Director: MESERET PAULA ([id number])[facility])[address] [place] [address] COMPREHENSIVE METABOLIC PANE [place] 03-21-2024 Albumin [Mass/Vol] 4.0 g/dL Normal 3.5-5.0 [facility] Comment on above: Performed By: #### L [id number], [id number], LAB17 ####Choral Director: MESERET PAULA ([id number])[facility])[address] [place] [address] ALP [Catalytic activity/Vol] 124 U/L Normal 38-126 [facility] Comment on above: Performed By: #### L [id number], [id number], LAB17 ####Choral Director: MESERET PAULA ([id number])[facility])[address] [place] [address] ALT [Catalytic activity/Vol] 42 U/L High 0-34 [facility] Comment on above: Performed By: #### L AB103, [id number], LAB17 ####Choral Director: MESERET PAULA ([id number])[facility] ([facility])[address] [place] [address] Anion gap [Moles/Vol] 11 mmol/L Normal 3-13 [facility] Comment on above: Performed By: #### L AB103, [id number], LAB17 ####Choral Director: MESERET PAULA ([id number])[facility])[address] [place] [address] AST [Catalytic activity/Vol] 49 U/L High 15-46 [facility] Comment on above: Performed By: #### L AB103, [id number], LAB17 ####Choral Director: MESERET PAULA ([id number])[facility])[address] [place] [address] Bilirubin [Mass/Vol] 0.9 mg/dL Normal 0.2-1.3 [facility] Comment on above: Performed By: #### L AB103, [id number], LAB17 ####Choral Director: MESERET PAULA ([id number])[facility])[address] [place] [address] Calcium [Mass/Vol] 9.6 mg/dL Normal 8.4-10.4 [facility] Comment on above: Performed By: #### L AB103, [id number], LAB17 ####Choral Director: MESERET PAULA ([id number])[facility])[address] [place] [address] Chloride [Moles/Vol] 104 mmol/L Normal 98-107 [facility] Comment on above: Performed By: #### L AB103, [id number], LAB17 ####Choral Director: MESERET PAULA ([id number])[facility] ([facility])[address] [place] [address] CO2 [Moles/Vol] 20 mmol/L Low 22-30 [facility] Comment on above: Performed By: #### L AB103, [id number], LAB17 ####Choral Director: MESERET PAULA ([id number])[facility])[address] [place] [address] Creatinine [Mass/Vol] 0.91 mg/dL Normal 0.52-1.04 [facility] Comment on above: Performed By: #### L AB103, [id number], LAB17 ####Choral Director: MESERET PAULA ([id number])[facility])[address] [place] [address] GLOMERULAR FILTRATION RATE ML/MIN/1.73 SQ M.PREDICTED 76.1 mL/min/1.73m*2 Normal >60.0 [facility] Comment on above: Result Comment: Calc ulation based on the Chronic Kidney Disease Epidemiology Collaboration (CKD-EPI) equation refit without adjustment for raceORDER COMMENTS:Slightly Hemolyzed. Interpret K+, ALKP, AST with caution. Performed By: #### L AB103, [id number], LAB17 ####Choral Director: MESERET PAULA ([id number])[facility] ([facility])[address] [place] [address] Glucose [Mass/Vol] 189 mg/dL High 70-100 [facility] Comment on above: Performed By: #### L AB103, [id number], LAB17 ####Choral Director: MESERET PAULA ([id number])[facility])[address] [place] [address] Potassium [Moles/Vol] 4.7 mmol/L Normal 3.5-5.1 [facility] Comment on above: Performed By: #### L AB103, [id number], LAB17 ####Choral Director: MESERET PAULA ([id number])[facility])[address] [place] [address] Protein [Mass/Vol] 8.3 g/dL High 6.3-8.2 [facility] Comment on above: Performed By: #### L AB103, [id number], LAB17 ####Choral Director: MESERET PAULA ([id number])[facility] ([facility])[address] [place] [address] Sodium [Moles/Vol] 135 mmol/L Normal 135-145 [facility] Comment on above: Performed By: #### L AB103, [id number], LAB17 ####Choral Director: MESERET PAULA ([id number])[facility] ([facility])[address] [place] [address] Urea nitrogen [Mass/Vol] 15 mg/dL Normal 7-17 [facility] Comment on above: Performed By: #### L AB103, [id number], LAB17 ####Choral Director: MESERET PAULA ([id number])[facility] ([facility])[address] [place] [address] Comprehensive metabolic 1998 panelon 03-21-2024 Albumin [Mass/Vol] 4.0 g/dL 3.5 - 5.0 g/dL [facility] ALP [Catalytic activity/Vol] 124 U/L 38 - 126 U/L [facility] ALT [Catalytic activity/Vol] 42 U/L High 0 - 34 U/L [facility] Anion gap [Moles/Vol] 11 mmol/L 3 - 13 mmol/L [facility] AST [Catalytic activity/Vol] 49 U/L High 15 - 46 U/L [facility] Bilirubin [Mass/Vol] 0.9 mg/dL 0.2 - 1 .3 mg/dL [facility] Calcium [Mass/Vol] 9.6 mg/dL 8.4 - 10. 4 mg/dL [facility] Chloride [Moles/Vol] 104 mmol/L 98 - 10 7 mmol/L [facility] CO2 [Moles/Vol] 20 mmol/L Low 22 - 30 mmol/L [facility] Creatinine [Mass/Vol] 0.91 mg/dL 0.52 - 1.04 mg/dL [facility] GFR/1.73 sq M.predicted MDRD (S/P/Bld) [Vol rate/Area] 76.1 mL/min/{1.73_m2} - PINF [facility] Glucose [Mass/Vol] 189 mg/dL High 70 - 100 mg/dL [facility] Potassium [Moles/Vol] 4.7 mmol/L 3.5 - 5.1 mmol/L [facility] Protein [Mass/Vol] 8.3 g/dL High 6.3 - 8.2 g/dL [facility] Sodium [Moles/Vol] 135 mmol/L 135 - 145 mmol/L [facility] Urea nitrogen [Mass/Vol] 15 mg/dL 7 - 17 mg/dL [facility] Consulton 03-21-2024 Consult Normal [facility] Consult Normal [facility] IDNon 03-21-2024 IDN Normal [facility] IDN Normal [facility] IDN Normal [facility] Laboratory - Chemistry and C hemistry - challengeon 03-21-2024 Glucose [Mass/Vol] 241 mg/dL High 70 - 100 mg/dL [facility] Glucose [Mass/Vol] 262 mg/dL High 70 - 100 mg/dL [facility] Glucose [Mass/Vol] 177 mg/dL High 70 - 100 mg/dL [facility] Glucose [Mass/Vol] 183 mg/dL High 70 - 100 mg/dL [facility] Magnesium [Mass/Vol] 2.0 mg/dL 1.6 - 2 .3 mg/dL [facility] MAGNESIUMon 03-21-2024 Magnesium [Mass/Vol] 2.0 mg/dL Normal 1.6-2.3 [facility] Comment on above: Result Comment: MARY Minor COMMENTS:Slightly Hemolyzed. Interpret Magnesium with caution. Performed By: #### L AB103, [id number], LAB17 ####Choral Director: MESERET PAULA ([id number])[address] Magnesium [Mass/Vol]on 03-21 Interpretation and review of laboratory results Normal [facility] No Panel Informationon 03-21 Interpretation and review of laboratory results Abnormal [facility] Interpretation and review of laboratory results Abnormal [facility] Interpretation and review of laboratory results Abnormal [facility] Interpretation and review of laboratory results Abnormal [facility] Interpretation and review of laboratory results Abnormal [facility] PHOSPHORUSon 03-21-2024 Phosphate [Mass/Vol] 5.0 mg/dL High 2.5-4.5 [facility] Comment on above: Result Comment: MARY Minor COMMENTS:Slightly Hemolyzed. Interpret Phosphorus with caution. Performed By: #### L AB103, [id number], LAB17 ####Choral Director: MESERET PAULA ([id number])[facility] ([facility])[address] [place] [address] Phosphate [Moles/Vol]on 02-24 Phosphate [Mass/Vol] 5.0 mg/dL High 2.5 - 4 .5 mg/dL [facility] Progress Noteon 03-21-2024 Progress Note [facility] Progress [facility] Progress [facility] Normal [facility] Progress Note Normal [facility] CBC W Auto Differential pane l (Bld)on 03-20-2024 Basophils (Bld) [#/Vol] 0.0 10*3/uL 0.0 - 0.2 10*3/uL [facility] Basophils/100 WBC (Bld) 0.3 % 0.0 - 2.0 % [facility] Eosinophils (Bld) [#/Vol] 0.2 10*3/uL 0.0 - 0.5 10*3/uL [facility] Eosinophils/100 WBC (Bld) 1.5 % 0.0 - 6.0 % [facility] Erythrocyte distribution width (RBC) [Ratio] 13.4 % 11.5 - 15.0 % [facility] Hematocrit (Bld) [Volume fraction] 41.0 % 35.0 - 47.0 % [facility] Hemoglobin (Bld) [Mass/Vol] 13.6 g/dL 11.7 - 16.0 g/dL [facility] Immature granulocytes (Bld) [#/Vol] 0.0 10*3/uL NINF - 0.1 10*3/uL [facility] Immature granulocytes/100 WBC (Bld) 0.3 % 0.0 - 2.0 % [facility] Interpretation and review of laboratory results Abnormal [facility] Lymphocytes (Bld) [#/Vol] 2.8 10*3/uL 1.0 - 4.3 10*3/uL [facility] Lymphocytes/100 WBC (Bld) 22.4 % 15.0 - 45.0 % [facility] MCH (RBC) [Entitic mass] 28.6 pg 26.0 - 34.0 pg [facility] MCHC (RBC) [Mass/Vol] 33.2 % 30.5 - 36.0 % [facility] MCV (RBC) [Entitic vol] 86.1 fL 77.0 - 99.0 fL [facility] Monocytes (Bld) [#/Vol] 1.3 10*3/uL High 0.0 - 0.9 10*3/uL [facility] Monocytes/100 WBC (Bld) 10.2 % 5.0 - 13.0 % [facility] Neutrophils (Bld) [#/Vol] 8.0 10*3/uL High 1.8 - 7.5 10*3/uL [facility] Neutrophils/100 WBC (Bld) 65.3 % 38.0 - 82.0 % [facility] Nucleated RBC/100 WBC (Bld) [Ratio] 0.0 % [facility] Platelet mean volume (Bld) [Entitic vol] 13.0 fL High 9.0 - 12.7 fL [facility] Platelets (Bld) [#/Vol] 207 10*3/uL 140 - 440 10*3/uL [facility] RBC (Bld) [#/Vol] 4.76 10*6/uL 3.80 - 5.2 0 10*6/uL [facility] WBC (Bld) [#/Vol] 12.3 10*3/uL High 3.6 - 10.7 10*3/uL [facility] CBC WITH AUTO DIFFERENTIALon 03-20-2024 Basophils (Bld) [#/Vol] 0.0 10*3/uL Normal 0.0-0.2 [facility] Comment on above: Performed By: #### L [id number] ####Choral Director: MESERET PAULA ([phone])[address] Basophils/100 WBC (Bld) 0.3 % Normal 0.0-2.0 [facility] Comment on above: Performed By: #### L [id number] ####Choral Director: MESERET PAULA ([id number])[facility])[address] [place] [address] Eosinophils (Bld) [#/Vol] 0.2 10*3/uL Normal 0.0-0.5 [facility] Comment on above: Performed By: #### L [id number] ####Choral Director: MESERET PAULA ([id number])[facility])[address] [place] [address] Eosinophils/100 WBC (Bld) 1.5 % Normal 0.0-6.0 [facility] Comment on above: Performed By: #### L [id number] ####Choral Director: MESERET PAULA ([id number])[facility])[address] [place] [address] Erythrocyte distribution width (RBC) [Ratio] 13.4 % Normal 11.5-15.0 [facility] Comment on above: Performed By: #### L [id number] ####Choral Director: MESERET PAULA ([id number])[facility])[address] [place] [address] Hematocrit (Bld) [Volume fraction] 41.0 % Normal 35.0-47.0 [facility] Comment on above: Performed By: #### L [id number] ####Choral Director: MESERET PAULA ([id number])[facility])[address] [place] [address] Hemoglobin (Bld) [Mass/Vol] 13.6 g/dL Normal 11.7-16.0 [facility] Comment on above: Performed By: #### L [id number] ####Choral Director: MESERET PAULA ([id number])[facility])[address] [place] [address] IMMATURE GRANS % 0.3 % Normal 0.0-2.[address] [facility] Comment on above: Performed By: #### L [id number] ####Choral Director: MESERET PAULA ([id number])[facility])[address] [place] [address] IMMATURE GRANS ABSOLUTE 0.0 10*3/uL Normal <0.1 [facility] Comment on above: Performed By: #### L [id number] ####Choral Director: MESERET PAULA ([id number])[facility])[address] [place] [address] Lymphocytes (Bld) [#/Vol] 2.8 10*3/uL Normal 1.0-4.3 [facility] Comment on above: Performed By: #### L [id number] ####Choral Director: MESERET PAULA ([id number])[address] Lymphocytes/100 WBC (Bld) 22.4 % Normal 15.0-45.0 [facility] Comment on above: Performed By: #### L [id number] ####Choral Director: MESERET PAULA ([id number])[facility])[address] [place] [address] MCH (RBC) [Entitic mass] 28.6 pg Normal 26.0-34.0 [facility] Comment on above: Performed By: #### L [id number] ####Choral Director: MESERET PAULA ([id number])[facility])[address] [place] [address] MCHC 33.2 % Normal 30.5-36.0 [facility] Comment on above: Performed By: #### L [id number] ####Choral Director: MESERET PAULA ([id number])[facility])[address] [place] [address] MCV (RBC) [Entitic vol] 86.1 fL Normal 77.0-99.0 [facility] Comment on above: Performed By: #### L [id number] ####Choral Director: MESERET PAULA ([phone])[facility])[address] [place] [address] Monocytes (Bld) [#/Vol] 1.3 10*3/uL High 0.0-0.9 [facility] Comment on above: Performed By: #### L [id number] ####Choral Director: MESERET PAULA ([phone])[facility] ([facility])[address] [place] [address] Monocytes/100 WBC (Bld) 10.2 % Normal 5.0-13.0 [facility] Comment on above: Performed By: #### L [id number] ####Choral Director: MESERET PAULA ([phone])[facility] ([facility])[address] [place] [address] NEUTROPHILS ABSOLUTE 8.0 10*3/uL High 1.8-7.5 [facility] Comment on above: Performed By: #### L [id number] ####Choral Director: MESERET PAULA ([id number])[facility] ([facility])[address] [place] [address] Neutrophils/100 WBC (Bld) 65.3 % Normal 38.0-82.0 [facility] Comment on above: Performed By: #### L [id number] ####Choral Director: MESERET PAULA ([id number])[facility] ([facility])[address] [place] [address] NRBC 0.0 /100 WBCs Normal 0.0-2.0 [facility] Comment on above: Performed By: #### L [id number] ####Choral Director: MESERET PAULA ([id number])[facility] ([facility])[address] [place] [address] Platelet mean volume (Bld) [Entitic vol] 13.0 fL High 9.0-12.7 [facility] Comment on above: Performed By: #### L [id number] ####Choral Director: MESERET PAULA ([id number])[facility] ([facility])[address] [place] [address] [place] Platelets (Bld) [#/Vol] 207 10*3/uL Normal 140-440 [facility] Comment on above: Performed By: #### L [id number] ####Choral Director: MESERET PAULA ([id number])[facility])[address] [place] [address] RBC (Bld) [#/Vol] 4.76 10*6/uL Normal 3.80-5.20 [facility] Comment on above: Performed By: #### L [id number] ####Choral Director: MESERET PAULA ([id number])[facility])[address] [place] [address] WBC (Bld) [#/Vol] 12.3 10*3/uL High 3.6-10.7 [facility] Comment on above: Performed By: #### L [id number] ####Choral Director: MESERET PAULA ([id number])[facility])[address] [place] [address] COMPREHENSIVE METABOLIC PANE [place] 03-20-2024 Albumin [Mass/Vol] 3.7 g/dL Normal 3.5-5.0 [facility] Comment on above: Performed By: #### Yumiko RAPHAEL, [id number], [id number] ####Choral Director: MESERET PAULA ([phone])[facility])[address] [place] [address] ALP [Catalytic activity/Vol] 115 U/L Normal 38-126 [facility] Comment on above: Performed By: #### Yumiko ABSteven, [id number], [id number] ####Choral Director: MESERET PAULA ([phone])[facility])[address] [place] [address] ALT [Catalytic activity/Vol] 31 U/L Normal 0-34 [facility] Comment on above: Performed By: #### Yumiko AB103, [id number], LAB17 ####Choral Director: MESERET PAULA ([id number])[facility])[address] [place] [address] Anion gap [Moles/Vol] 8 mmol/L Normal 3-13 [facility] Comment on above: Performed By: #### L AB103, [id number], LAB17 ####Choral Director: MESERET PAULA ([phone])[facility])[address] [place] [address] AST [Catalytic activity/Vol] 47 U/L High 15-46 [facility] Comment on above: Performed By: #### L AB103, [id number], LAB17 ####Choral Director: MESERET PAULA ([id number])[facility] ([facility])[address] [place] [address] Bilirubin [Mass/Vol] 0.7 mg/dL Normal 0.2-1.3 [facility] Comment on above: Performed By: #### L AB103, [id number], LAB17 ####Choral Director: MESERET PAULA ([id number])[facility])[address] [place] [address] Calcium [Mass/Vol] 9.2 mg/dL Normal 8.4-10.4 [facility] Comment on above: Performed By: #### L AB103, [id number], LAB17 ####Choral Director: MESERET PAULA ([id number])[facility] ([facility])[address] [place] [address] Chloride [Moles/Vol] 103 mmol/L Normal 98-107 [facility] Comment on above: Performed By: #### L AB103, [id number], LAB17 ####Choral Director: MESERET PAULA ([id number])[facility] ([facility])[address] [place] [address] [place] CO2 [Moles/Vol] 22 mmol/L Normal 22-30 [facility] Comment on above: Performed By: #### L AB103, [id number], LAB17 ####Choral Director: MESERET PAULA ([id number])[facility])[address] [place] [address] Creatinine [Mass/Vol] 0.90 mg/dL Normal 0.52-1.04 [facility] Comment on above: Performed By: #### L AB103, [id number], LAB17 ####Choral Director: MESERET PAULA ([id number])[facility])[address] [place] [address] GLOMERULAR FILTRATION RATE ML/MIN/1.73 SQ M.PREDICTED 77.1 mL/min/1.73m*2 Normal >60.0 [facility] Comment on above: Result Comment: Calc ulation based on the Chronic Kidney Disease Epidemiology Collaboration (CKD-EPI) equation refit without adjustment for race Performed By: #### L AB103, [id number], LAB17 ####Choral Director: MESERTE PAULA ([phone])[facility])[address] [place] [address] Glucose [Mass/Vol] 312 mg/dL High 70-100 [facility] Comment on above: Performed By: #### Yumiko AB103, [id number], LAB17 ####Choral Director: MESERET PAULA ([id number])[facility])[address] [place] [address] Potassium [Moles/Vol] 4.1 mmol/L Normal 3.5-5.1 [facility] Comment on above: Performed By: #### Yumiko AB103, [id number], LAB17 ####Choral Director: MESERET PAULA ([id number])[facility])[address] [place] [address] Protein [Mass/Vol] 7.5 g/dL Normal 6.3-8.2 [facility] Comment on above: Performed By: #### L AB103, [id number], LAB17 ####Choral Director: MESERET PAULA ([id number])[facility])[address] [place] [address] [place] Sodium [Moles/Vol] 134 mmol/L Low 135-145 [facility] Comment on above: Performed By: #### L AB103, [id number], LAB17 ####Choral Director: MESERET PAULA ([id number])[facility])[address] [place] [address] [place] Urea nitrogen [Mass/Vol] 17 mg/dL Normal 7-17 [facility] Comment on above: Performed By: #### L AB103, [id number], LAB17 ####Choral Director: MESERET PAULA ([id number])[facility] ([facility])[address] [place] [address] Comprehensive metabolic 1998 panelon 03-20-2024 Albumin [Mass/Vol] 3.7 g/dL 3.5 - 5.0 g/dL [facility] ALP [Catalytic activity/Vol] 115 U/L 38 - 126 U/L [facility] ALT [Catalytic activity/Vol] 31 U/L 0 - 34 U/L [facility] Anion gap [Moles/Vol] 8 mmol/L 3 - 13 mmol/L [facility] AST [Catalytic activity/Vol] 47 U/L High 15 - 46 U/L [facility] Bilirubin [Mass/Vol] 0.7 mg/dL 0.2 - 1 .3 mg/dL [facility] Calcium [Mass/Vol] 9.2 mg/dL 8.4 - 10. 4 mg/dL [facility] Chloride [Moles/Vol] 103 mmol/L 98 - 10 7 mmol/L [facility] CO2 [Moles/Vol] 22 mmol/L 22 - 30 mmol/L [facility] Creatinine [Mass/Vol] 0.90 mg/dL 0.52 - 1.04 mg/dL [facility] GFR/1.73 sq M.predicted MDRD (S/P/Bld) [Vol rate/Area] 77.1 mL/min/{1.73_m2} - PINF [facility] Glucose [Mass/Vol] 312 mg/dL High 70 - 100 mg/dL [facility] Interpretation and review of laboratory results Abnormal [facility] Potassium [Moles/Vol] 4.1 mmol/L 3.5 - 5.1 mmol/L [facility] Protein [Mass/Vol] 7.5 g/dL 6.3 - 8.2 g/dL [facility] Sodium [Moles/Vol] 134 mmol/L Low 135 - 145 mmol/L [facility] Urea nitrogen [Mass/Vol] 17 mg/dL 7 - 17 mg/dL [facility] IDNon 03-20-2024 IDN Normal [facility] Laboratory - Chemistry and C hemistry - challengeon 03-20-2024 Glucose [Mass/Vol] 264 mg/dL High 70 - 100 mg/dL [facility] Glucose [Mass/Vol] 165 mg/dL High 70 - 100 mg/dL [facility] Glucose [Mass/Vol] 227 mg/dL High 70 - 100 mg/dL [facility] Glucose [Mass/Vol] 216 mg/dL High 70 - 100 mg/dL [facility] Glucose [Mass/Vol] 208 mg/dL High 70 - 100 mg/dL [facility] Magnesium [Mass/Vol] 1.8 mg/dL 1.6 - 2 .3 mg/dL [facility] MAGNESIUMon 03-20-2024 Magnesium [Mass/Vol] 1.8 mg/dL Normal 1.6-2.3 [facility] Comment on above: Performed By: #### L AB103, [id number], LAB17 ####Choral Director: MESERET PAULA ([id number])[facility])[address] [place] [address] [facility] No Panel Informationon 03-20 Interpretation and review of laboratory results Abnormal [facility] Interpretation and review of laboratory results Abnormal [facility] Interpretation and review of laboratory results Abnormal [facility] Interpretation and review of laboratory results Abnormal [facility] Interpretation and review of laboratory results Abnormal [facility] Interpretation and review of laboratory results Normal [facility] PHOSPHORUSon 03-20-2024 Phosphate [Mass/Vol] 4.1 mg/dL Normal 2.5-4.5 [facility] Comment on above: Performed By: #### L AB103, [id number], LAB17 ####Choral Director: MESERET PAULA ([id number])[facility] ([facility])[address] [place] [address] [place] Phosphate [Moles/Vol]on 02-24 Phosphate [Mass/Vol] 4.1 mg/dL 2.5 - 4 .5 mg/dL [facility] Progress Noteon 03-20-2024 Progress Note Normal [facility] Progress Note Normal [facility] Progress [facility] Normal [facility] Progress Note Normal [facility] Progress [facility] Normal [facility] Progress Note Normal [facility] CBC W Auto Differential pane l (Bld)on 03-19-2024 Basophils (Bld) [#/Vol] 0.0 10*3/uL 0.0 - 0.2 10*3/uL [facility] Basophils/100 WBC (Bld) 0.3 % 0.0 - 2.0 % [facility] Eosinophils (Bld) [#/Vol] 0.3 10*3/uL 0.0 - 0.5 10*3/uL [facility] Eosinophils/100 WBC (Bld) 1.9 % 0.0 - 6.0 % [facility] Erythrocyte distribution width (RBC) [Ratio] 13.5 % 11.5 - 15.0 % [facility] Hematocrit (Bld) [Volume fraction] 41.7 % 35.0 - 47.0 % [facility] Hemoglobin (Bld) [Mass/Vol] 13.8 g/dL 11.7 - 16.0 g/dL [facility] Virax Immature granulocytes (Bld) [#/Vol] 0.1 10*3/uL High NINF - 0.1 10*3/uL [facility] Immature granulocytes/100 WBC (Bld) 0.6 % 0.0 - 2.0 % [facility] Interpretation and review of laboratory results Abnormal [facility] IPF 12 [facility] Lymphocytes (Bld) [#/Vol] 3.1 10*3/uL 1.0 - 4.3 10*3/uL [facility] Lymphocytes/100 WBC (Bld) 22.4 % 15.0 - 45.0 % [facility] MCH (RBC) [Entitic mass] 28.7 pg 26.0 - 34.0 pg [facility] MCHC (RBC) [Mass/Vol] 33.1 % 30.5 - 36.0 % [facility] MCV (RBC) [Entitic vol] 86.7 fL 77.0 - 99.0 fL [facility] Monocytes (Bld) [#/Vol] 1.3 10*3/uL High 0.0 - 0.9 10*3/uL [facility] Monocytes/100 WBC (Bld) 9.5 % 5.0 - 13.0 % [facility] Neutrophils (Bld) [#/Vol] 9.2 10*3/uL High 1.8 - 7.5 10*3/uL [facility] Neutrophils/100 WBC (Bld) 65.3 % 38.0 - 82.0 % [facility] Nucleated RBC/100 WBC (Bld) [Ratio] 0.0 % [facility] Platelet mean volume (Bld) [Entitic vol] 13.2 fL High 9.0 - 12.7 fL [facility] Platelets (Bld) [#/Vol] 191 10*3/uL 140 - 440 10*3/uL [facility] RBC (Bld) [#/Vol] 4.81 10*6/uL 3.80 - 5.2 0 10*6/uL [facility] WBC (Bld) [#/Vol] 14.0 10*3/uL High 3.6 - 10.7 10*3/uL [facility] CBC WITH AUTO DIFFERENTIALon 03-19-2024 Basophils (Bld) [#/Vol] 0.0 10*3/uL Normal 0.0-0.2 [facility] Comment on above: Performed By: #### L [id number] ####Choral Director: MESERET PAULA ([phone])[facility])[address] [place] [address] Basophils/100 WBC (Bld) 0.3 % Normal 0.0-2.0 [facility] Comment on above: Performed By: #### L [id number] ####Choral Director: MESERET PAULA ([id number])[facility])[address] [place] [address] [place] Eosinophils (Bld) [#/Vol] 0.3 10*3/uL Normal 0.0-0.5 [facility] Comment on above: Performed By: #### L [id number] ####Choral Director: MESERET PAULA ([phone])[facility])[address] [place] [address] Eosinophils/100 WBC (Bld) 1.9 % Normal 0.0-6.0 [facility] Comment on above: Performed By: #### L [id number] ####Choral Director: MESERET PAULA ([id number])[facility])[address] [place] [address] Erythrocyte distribution width (RBC) [Ratio] 13.5 % Normal 11.5-15.0 [facility] Comment on above: Performed By: #### L [id number] ####Choral Director: MESERET PAULA ([id number])[facility])[address] [place] [address] Hematocrit (Bld) [Volume fraction] 41.7 % Normal 35.0-47.0 [facility] Comment on above: Performed By: #### L [id number] ####Choral Director: MESERET PAULA ([phone])[facility])[address] [place] [address] Hemoglobin (Bld) [Mass/Vol] 13.8 g/dL Normal 11.7-16.0 [facility] Comment on above: Performed By: #### L [id number] ####Choral Director: MESERET PAULA ([id number])[facility])[address] [place] [address] IMMATURE GRANS % 0.6 % Normal 0.0-2.[address] [facility] Comment on above: Performed By: #### L [id number] ####Choral Director: MESERET PAULA ([id number])[facility])[address] [place] [address] IMMATURE GRANS ABSOLUTE 0.1 10*3/uL High <0.1 [facility] Comment on above: Performed By: #### L [id number] ####Choral Director: MESERET PAULA ([id number])[facility])[address] [place] [address] IPF 12 Normal [facility] Comment on above: Performed By: #### L [id number] ####Choral Director: MESERET PAULA ([phone])[facility])[address] [place] [address] Lymphocytes (Bld) [#/Vol] 3.1 10*3/uL Normal 1.0-4.3 [facility] Comment on above: Performed By: #### L [id number] ####Choral Director: MESERET PAULA ([id number])[facility])[address] [place] [address] Lymphocytes/100 WBC (Bld) 22.4 % Normal 15.0-45.0 [facility] Comment on above: Performed By: #### L [id number] ####Choral Director: MESERET PAULA ([id number])[facility] ([facility])[address] [place] [address] MCH (RBC) [Entitic mass] 28.7 pg Normal 26.0-34.0 [facility] Comment on above: Performed By: #### L [id number] ####Choral Director: MESERET PAULA ([id number])[facility])[address] [place] [address] MCHC 33.1 % Normal 30.5-36.0 [facility] Comment on above: Performed By: #### L [id number] ####Choral Director: MESERET PAULA ([phone])[facility])[address] [place] [address] MCV (RBC) [Entitic vol] 86.7 fL Normal 77.0-99.0 [facility] Comment on above: Performed By: #### L [id number] ####Choral Director: MESERET PAULA ([phone])[facility])[address] [place] [address] Monocytes (Bld) [#/Vol] 1.3 10*3/uL High 0.0-0.9 [facility] Comment on above: Performed By: #### L [id number] ####Choral Director: MESERET PAULA ([id number])[facility])[address] [place] [address] Monocytes/100 WBC (Bld) 9.5 % Normal 5.0-13.0 [facility] Comment on above: Performed By: #### L [id number] ####Choral Director: MESERET PAULA ([id number])[facility] ([facility])[address] [place] [address] NEUTROPHILS ABSOLUTE 9.2 10*3/uL High 1.8-7.5 [facility] Comment on above: Performed By: #### L [id number] ####Choral Director: MESERET PAULA ([id number])[facility])[address] [place] [address] Neutrophils/100 WBC (Bld) 65.3 % Normal 38.0-82.0 [facility] Comment on above: Performed By: #### L [id number] ####Choral Director: MESERET PAULA ([id number])[facility])[address] [place] [address] NRBC 0.0 /100 WBCs Normal 0.0-2.0 [facility] Comment on above: Performed By: #### L [id number] ####Choral Director: MESERET PAULA ([id number])[facility] ([facility])[address] [place] [address] Platelet mean volume (Bld) [Entitic vol] 13.2 fL High 9.0-12.7 [facility] Comment on above: Performed By: #### L [id number] ####Choral Director: MESERET PAULA ([phone])[facility])[address] [place] [address] Platelets (Bld) [#/Vol] 191 10*3/uL Normal 140-440 [facility] Comment on above: Performed By: #### L [id number] ####Choral Director: MESERET PAULA ([id number])[facility] ([facility])[address] [place] [address] RBC (Bld) [#/Vol] 4.81 10*6/uL Normal 3.80-5.20 [facility] Comment on above: Performed By: #### L [id number] ####Choral Director: MESERET PAULA ([id number])[facility] ([facility])[address] [place] [address] WBC (Bld) [#/Vol] 14.0 10*3/uL High 3.6-10.7 [facility] Comment on above: Performed By: #### L [id number] ####Choral Director: MESERET PAULA ([phone])[facility] ([facility])[address] [place] [address] COMPREHENSIVE METABOLIC PANE [place] 03-19-2024 Albumin [Mass/Vol] 3.7 g/dL Normal 3.5-5.0 [facility] Comment on above: Performed By: #### L [id number], [id number], LAB17 ####Choral Director: MESERET PAULA ([id number])[facility] ([facility])[address] [place] [address] ALP [Catalytic activity/Vol] 111 U/L Normal 38-126 [facility] Comment on above: Performed By: #### L AB103, [id number], LAB17 ####Choral Director: MESERET PAULA ([id number])[facility] ([facility])[address] [place] [address] ALT [Catalytic activity/Vol] 25 U/L Normal 0-34 [facility] Comment on above: Performed By: #### L AB103, [id number], LAB17 ####Choral Director: MESERET PAULA ([id number])[facility] ([facility])[address] [place] [address] Anion gap [Moles/Vol] 8 mmol/L Normal 3-13 [facility] Comment on above: Performed By: #### L AB103, [id number], LAB17 ####Choral Director: MESERET PAULA ([id number])[facility] ([facility])[address] [place] [address] AST [Catalytic activity/Vol] 43 U/L Normal 15-46 [facility] Comment on above: Performed By: #### L AB103, [id number], LAB17 ####Choral Director: MESERET PAULA ([phone])[facility] ([facility])[address] [place] [address] Bilirubin [Mass/Vol] 0.6 mg/dL Normal 0.2-1.3 [facility] Comment on above: Performed By: #### Yumiko AB103, [id number], LAB17 ####Choral Director: MESERET PAULA ([phone])[facility] ([facility])[address] [place] [address] Calcium [Mass/Vol] 9.0 mg/dL Normal 8.4-10.4 [facility] Comment on above: Performed By: #### Yumiko AB103, [id number], LAB17 ####Choral Director: MESERET PAULA ([id number])[facility] ([facility])[address] [place] [address] Chloride [Moles/Vol] 106 mmol/L Normal 98-107 [facility] Comment on above: Performed By: #### Yumiko ABSteven, [id number], LAB17 ####Choral Director: MESERET PAULA ([id number])[facility] ([facility])[address] [place] [address] CO2 [Moles/Vol] 22 mmol/L Normal 22-30 [facility] Comment on above: Performed By: #### Yumiko ABSteven, [id number], LAB17 ####Choral Director: MESERET PAULA ([id number])[facility] ([facility])[address] [place] [address] Creatinine [Mass/Vol] 0.95 mg/dL Normal 0.52-1.04 [facility] Comment on above: Performed By: #### Yumiko AB103, [id number], LAB17 ####Choral Director: MESERET PAULA ([id number])[facility] ([facility])[address] [place] [address] [place] GLOMERULAR FILTRATION RATE ML/MIN/1.73 SQ M.PREDICTED 72.2 mL/min/1.73m*2 Normal >60.0 [facility] Comment on above: Result Comment: Calc ulation based on the Chronic Kidney Disease Epidemiology Collaboration (CKD-EPI) equation refit without adjustment for race Performed By: #### Yumiko AB103, [id number], LAB17 ####Choral Director: MESERET [id number])[facility] [place] [address] [place] Glucose [Mass/Vol] 209 mg/dL High 70-100 [facility] Comment on above: Performed By: #### L AB103, [id number], LAB17 ####Choral Director: MESERET PAULA ([id number])[facility] [place] [address] Potassium [Moles/Vol] 4.2 mmol/L Normal 3.5-5.1 [facility] Comment on above: Performed By: #### L AB103, [id number], LAB17 ####Choral Director: MESERET PAULA ([id number])[facility] ([facility])[address] [place] [address] Protein [Mass/Vol] 7.4 g/dL Normal 6.3-8.2 [facility] Comment on above: Performed By: #### L AB103, [id number], LAB17 ####Choral Director: MESERET PAULA ([id number])[facility] [place] [address] [place] Sodium [Moles/Vol] 136 mmol/L Normal 135-145 [facility] Comment on above: Performed By: #### L AB103, [id number], LAB17 ####Choral Director: MESERET PAULA ([id number])[facility] ([facility])[address] [place] [address] [place] Urea nitrogen [Mass/Vol] 18 mg/dL High 7-17 [facility] Comment on above: Performed By: #### L AB103, [id number], LAB17 ####Choral Director: MESERET PAULA ([phone])[facility] ([facility])[address] [place] [address] [place] Comprehensive metabolic 1998 panelon 03-19-2024 Albumin [Mass/Vol] 3.7 g/dL 3.5 - 5.0 g/dL [facility] ALP [Catalytic activity/Vol] 111 U/L 38 - 126 U/L [facility] ALT [Catalytic activity/Vol] 25 U/L 0 - 34 U/L [facility] Anion gap [Moles/Vol] 8 mmol/L 3 - 13 mmol/L [facility] AST [Catalytic activity/Vol] 43 U/L 15 - 46 U/L [facility] Bilirubin [Mass/Vol] 0.6 mg/dL 0.2 - 1 .3 mg/dL [facility] Calcium [Mass/Vol] 9.0 mg/dL 8.4 - 10. 4 mg/dL [facility] Chloride [Moles/Vol] 106 mmol/L 98 - 10 7 mmol/L [facility] CO2 [Moles/Vol] 22 mmol/L 22 - 30 mmol/L [facility] Creatinine [Mass/Vol] 0.95 mg/dL 0.52 - 1.04 mg/dL [facility] GFR/1.73 sq M.predicted MDRD (S/P/Bld) [Vol rate/Area] 72.2 mL/min/{1.73_m2} - PINF [facility] Glucose [Mass/Vol] 209 mg/dL High 70 - 100 mg/dL [facility] Interpretation and review of laboratory results Abnormal [facility] Potassium [Moles/Vol] 4.2 mmol/L 3.5 - 5.1 mmol/L [facility] Protein [Mass/Vol] 7.4 g/dL 6.3 - 8.2 g/dL [facility] Sodium [Moles/Vol] 136 mmol/L 135 - 145 mmol/L [facility] Urea nitrogen [Mass/Vol] 18 mg/dL High 7 - 17 mg/dL [facility] Consulton 03-19-2024 Consult Normal [facility] IDNon 03-19-2024 IDN The patient is Moderately Stable - Low risk of patient condition declining or worsening The patient's goals for the shift include remain CP free The clinical goals for the shift include remain CP free Normal [facility] Laboratory - Chemistry and C hemistry - challengeon 03-19-2024 Glucose [Mass/Vol] 138 mg/dL High 70 - 100 mg/dL [facility] Glucose [Mass/Vol] 266 mg/dL High 70 - 100 mg/dL [facility] Glucose [Mass/Vol] 186 mg/dL High 70 - 100 mg/dL [facility] Magnesium [Mass/Vol] 2.0 mg/dL 1.6 - 2 .3 mg/dL [facility] MAGNESIUMon 03-19-2024 Magnesium [Mass/Vol] 2.0 mg/dL Normal 1.6-2.3 [facility] Comment on above: Performed By: #### Yumiko [id number], [id number], [id number] ####Choral Director: MESERET PAULA ([id number])[facility] [place] [address] MR Brain WO and W contrast I Von 03-19-2024 [facility] MR Brain WO and W contrast I VOrdered By: Garrick Wharton on 03-19-2024 [facility] Work Phone: MRA Head vessels WO contrast on 03-19-2024 [facility] MRA Neck vessels WO and W co ntrast Gi 03-19-2024 [facility] No Panel Informationon 03-19 Radiology Study observation (narrative) [facility] Interpretation and review of laboratory results Abnormal [facility] Interpretation and review of laboratory results Abnormal [facility] Interpretation and review of laboratory results Abnormal [facility] Interpretation and review of laboratory results Normal [facility] PHOSPHORUSon 03-19-2024 Phosphate [Mass/Vol] 3.5 mg/dL Normal 2.5-4.5 [facility] Comment on above: Performed By: #### Yumiko RAPHAEL, [id number], LAB17 ####Choral Director: MESERET PAULA ([id number])[facility] ([facility] [place] [address] Phosphate [Moles/Vol]on 02-24 Phosphate [Mass/Vol] 3.5 mg/dL 2.5 - 4 .5 mg/dL [facility] Progress Noteon 03-19-2024 Progress Note Normal [facility] Progress Note Normal [facility] Progress Note Normal [facility] Progress Note Normal [facility] Progress Note Normal [facility] Progress Note Normal [facility] Progress Note Normal [facility] XR ABDOMEN 1 VIEWon 03-19-20 XR ABDOMEN 1 VIEW Normal [facility] XR Abdomen Single viewon [facility] EM[facility]ENC[facility]PART[facility] RADIOLOGY SYSTEM [facility] EM[facility]GENC[facility]PART[facility] RADIOLOGY SYSTEM [facility] Radiology Study observation (narrative) [place] XR Abdomen Single viewOrdere d By: Emelia Galeana on 03-19-2024 [facility] Work Phone: CARECOORDon 03-18-2024 CARECOORD Normal [facility] CBC W Auto Differential pane l (Bld)Ordered By: Tri Barajas on 03-18-2024 Basophils (Bld) [#/Vol] 0.0 10*3/uL 0.0 - 0.2 10*3/uL [facility] Basophils/100 WBC (Bld) 0.2 % 0.0 - 2.0 % [facility] Eosinophils (Bld) [#/Vol] 0.3 10*3/uL 0.0 - 0.5 10*3/uL [facility] Eosinophils/100 WBC (Bld) 2.2 % 0.0 - 6.0 % [facility] Erythrocyte distribution width (RBC) [Ratio] 13.6 % 11.5 - 15.0 % [facility] Hematocrit (Bld) [Volume fraction] 42.5 % 35.0 - 47.0 % [facility] Hemoglobin (Bld) [Mass/Vol] 14.0 g/dL 11.7 - 16.0 g/dL [facility] Immature granulocytes (Bld) [#/Vol] 0.1 10*3/uL High NINF - 0.1 10*3/uL [facility] Immature granulocytes/100 WBC (Bld) 0.5 % 0.0 - 2.0 % [facility] Interpretation and review of laboratory results Abnormal [facility] Lymphocytes (Bld) [#/Vol] 3.2 10*3/uL 1.0 - 4.3 10*3/uL [facility] Lymphocytes/100 WBC (Bld) 22.7 % 15.0 - 45.0 % [facility] MCH (RBC) [Entitic mass] 28.6 pg 26.0 - 34.0 pg [facility] MCHC (RBC) [Mass/Vol] 32.9 % 30.5 - 36.0 % [facility] MCV (RBC) [Entitic vol] 86.9 fL 77.0 - 99.0 fL [facility] Health Monocytes (Bld) [#/Vol] 1.5 10*3/uL High 0.0 - 0.9 10*3/uL [facility] Monocytes/100 WBC (Bld) 10.9 % 5.0 - 13.0 % [facility] Neutrophils (Bld) [#/Vol] 8.9 10*3/uL High 1.8 - 7.5 10*3/uL [facility] Health Neutrophils/100 WBC (Bld) 63.5 % 38.0 - 82.0 % [facility] Nucleated RBC/100 WBC (Bld) [Ratio] 0.0 % [facility] Platelet mean volume (Bld) [Entitic vol] 12.8 fL High 9.0 - 12.7 fL [facility] Platelets (Bld) [#/Vol] 190 10*3/uL 140 - 440 10*3/uL [facility] RBC (Bld) [#/Vol] 4.89 10*6/uL 3.80 - 5.2 0 10*6/uL [facility] WBC (Bld) [#/Vol] 14.1 10*3/uL High 3.6 - 10.7 10*3/uL [facility] Health CBC WITH AUTO DIFFERENTIALon 03-18-2024 Basophils (Bld) [#/Vol] 0.0 10*3/uL Normal 0.0-0.2 [facility] Comment on above: Performed By: #### L [id number] ####Choral Director: MESERET PAULA ([id number])[facility] ([address] Basophils/100 WBC (Bld) 0.2 % Normal 0.0-2.0 S [facility] Comment on above: Performed By: #### L [id number] ####Choral Director: MESERET PAULA ([id number])[facility])[address] [place] [address] Eosinophils (Bld) [#/Vol] 0.3 10*3/uL Normal 0.0-0.5 [facility] Comment on above: Performed By: #### L [id number] ####Choral Director: MESERET PAULA ([phone])[facility])[address] [place] [address] Eosinophils/100 WBC (Bld) 2.2 % Normal 0.0-6.0 [facility] Comment on above: Performed By: #### L [id number] ####Choral Director: MESERET PAULA ([id number])[facility])[address] [place] [address] Erythrocyte distribution width (RBC) [Ratio] 13.6 % Normal 11.5-15.0 [facility] Comment on above: Performed By: #### L [id number] ####Choral Director: MESERET PAULA ([id number])[address] Hematocrit (Bld) [Volume fraction] 42.5 % Normal 35.0-47.0 [facility] Comment on above: Performed By: #### L [id number] ####Choral Director: MESERET PAULA ([id number])[facility])[address] [place] [address] Hemoglobin (Bld) [Mass/Vol] 14.0 g/dL Normal 11.7-16.0 [facility] Comment on above: Performed By: #### L [id number] ####Choral Director: MESERET PAULA ([id number])[facility])[address] [place] [address] IMMATURE GRANS % 0.5 % Normal 0.0-2.[address] [facility] Comment on above: Performed By: #### L [id number] ####Choral Director: MESERET PAULA ([id number])[facility])[address] [place] [address] IMMATURE GRANS ABSOLUTE 0.1 10*3/uL High <0.1 [facility] Comment on above: Performed By: #### L [id number] ####Choral Director: MESERET PAULA ([id number])[facility])[address] [place] [address] Lymphocytes (Bld) [#/Vol] 3.2 10*3/uL Normal 1.0-4.3 [facility] Comment on above: Performed By: #### L [id number] ####Choral Director: MESERET PAULA ([id number])[facility])[address] [place] [address] Lymphocytes/100 WBC (Bld) 22.7 % Normal 15.0-45.0 [facility] Comment on above: Performed By: #### L [id number] ####Choral Director: MESERET PAULA ([id number])[facility])[address] [place] [address] MCH (RBC) [Entitic mass] 28.6 pg Normal 26.0-34.0 [facility] Comment on above: Performed By: #### L [id number] ####Choral Director: MESERET PAULA ([id number])[facility])[address] [place] [address] MCHC 32.9 % Normal 30.5-36.0 [facility] Comment on above: Performed By: #### L [id number] ####Choral Director: MESERET PAULA ([phone])[facility])[address] [place] [address] MCV (RBC) [Entitic vol] 86.9 fL Normal 77.0-99.0 S [facility] Comment on above: Performed By: #### L [id number] ####Choral Director: MESERET PAULA ([id number])[facility])[address] [place] [address] Monocytes (Bld) [#/Vol] 1.5 10*3/uL High 0.0-0.9 [facility] Comment on above: Performed By: #### L [id number] ####Choral Director: MESERET PAULA ([id number])[facility])[address] [place] [address] Monocytes/100 WBC (Bld) 10.9 % Normal 5.0-13.0 S [facility] Comment on above: Performed By: #### L [id number] ####Choral Director: MESERET PAULA ([id number])[facility] ([facility])[address] [place] [address] NEUTROPHILS ABSOLUTE 8.9 10*3/uL High 1.8-7.5 [facility] Comment on above: Performed By: #### L [id number] ####Choral Director: MESERET PAULA ([id number])[facility] ([facility])[address] [place] [address] Neutrophils/100 WBC (Bld) 63.5 % Normal 38.0-82.0 [facility] Comment on above: Performed By: #### L [id number] ####Choral Director: MESERET PAULA ([id number])[facility] ([facility])[address] [place] [address] NRBC 0.0 /100 WBCs Normal 0.0-2.0 [facility] Comment on above: Performed By: #### L [id number] ####Choral Director: MESERET PAULA ([phone])[facility] ([facility])[address] [place] [address] Platelet mean volume (Bld) [Entitic vol] 12.8 fL High 9.0-12.7 [facility] Comment on above: Performed By: #### L [id number] ####Choral Director: MESERET PAULA ([id number])[facility] ([facility])[address] [place] [address] Platelets (Bld) [#/Vol] 190 10*3/uL Normal 140-440 [facility] Comment on above: Performed By: #### L [id number] ####Choral Director: MESERET PAULA ([id number])[facility] ([facility])[address] [place] [address] RBC (Bld) [#/Vol] 4.89 10*6/uL Normal 3.80-5.20 [facility] Comment on above: Performed By: #### L [id number] ####Choral Director: MESERET PAULA ([id number])[facility] ([facility])[address] [place] [address] WBC (Bld) [#/Vol] 14.1 10*3/uL High 3.6-10.7 [facility] Comment on above: Performed By: #### L [id number] ####Choral Director: MESERET PAULA ([id number])[facility] ([facility])[address] [place] [address] COMPREHENSIVE METABOLIC PANE [place] 03-18-2024 Albumin [Mass/Vol] 3.7 g/dL Normal 3.5-5.0 [facility] Comment on above: Performed By: #### L [id number], [id number], LAB17 ####Choral Director: MESERET PALUA ([id number])[facility] ([facility])[address] [place] [address] ALP [Catalytic activity/Vol] 115 U/L Normal 38-126 [facility] Comment on above: Performed By: #### L [id number], [id number], LAB17 ####Choral Director: MESERET PAULA ([id number])[facility] ([facility])[address] [place] [address] ALT [Catalytic activity/Vol] 27 U/L Normal 0-34 [facility] Comment on above: Performed By: #### L [id number], [id number], LAB17 ####Choral Director: MESERET PAULA ([id number])[facility] ([facility])[address] [place] [address] Anion gap [Moles/Vol] 5 mmol/L Normal 3-13 [facility] Comment on above: Performed By: #### L [id number], [id number], LAB17 ####Choral Director: MESERET PAULA ([phone])[facility])[address] [place] [address] AST [Catalytic activity/Vol] 67 U/L High 15-46 [facility] Comment on above: Performed By: #### L [id number], [id number], LAB17 ####Choral Director: MESERET PAULA ([id number])[facility] ([facility])[address] [place] [address] [place] Bilirubin [Mass/Vol] 1.0 mg/dL Normal 0.2-1.3 [facility] Comment on above: Performed By: #### L AB113, [id number], LAB17 ####Choral Director: MESERET PAULA ([id number])[facility] ([facility])[address] [place] [address] Calcium [Mass/Vol] 8.8 mg/dL Normal 8.4-10.4 [facility] Comment on above: Performed By: #### L AB113, [id number], LAB17 ####Choral Director: MESERET PAULA ([id number])[facility] ([facility])[address] [place] [address] Chloride [Moles/Vol] 105 mmol/L Normal 98-107 [facility] Comment on above: Performed By: #### L AB113, [id number], LAB17 ####Choral Director: MESERET PAULA ([id number])[facility] ([facility])[address] [place] [address] CO2 [Moles/Vol] 24 mmol/L Normal 22-30 [facility] Comment on above: Performed By: #### L AB113, [id number], LAB17 ####Choral Director: MESERET PAULA ([id number])[facility] ([facility])[address] [place] [address] Creatinine [Mass/Vol] 0.85 mg/dL Normal 0.52-1.04 [facility] Comment on above: Performed By: #### L AB113, [id number], LAB17 ####Choral Director: MESERET PAULA ([id number])[facility])[address] [place] [address] [place] GLOMERULAR FILTRATION RATE ML/MIN/1.73 SQ M.PREDICTED 82.6 mL/min/1.73m*2 Normal >60.0 [facility] Comment on above: Result Comment: Calc ulation based on the Chronic Kidney Disease Epidemiology Collaboration (CKD-EPI) equation refit without adjustment for race Performed By: #### Yumiko AB113, [id number], LAB17 ####Choral Director: MESERET PAULA ([id number])[facility])[address] [place] [address] Glucose [Mass/Vol] 206 mg/dL High 70-100 [facility] Comment on above: Performed By: #### Yumiko AB113, [id number], LAB17 ####Choral Director: MESERET PAULA ([id number])[facility] ([facility])[address] [place] [address] Potassium [Moles/Vol] 3.8 mmol/L Normal 3.5-5.1 [facility] Comment on above: Performed By: #### Yumiko ABAlina, [id number], LAB17 ####Choral Director: MESERET PAULA ([id number])[facility])[address] [place] [address] Protein [Mass/Vol] 7.3 g/dL Normal 6.3-8.2 [facility] Comment on above: Performed By: #### Yumiko ABAlina, [id number], LAB17 ####Choral Director: MESERET PAULA ([id number])[facility])[address] [place] [address] Sodium [Moles/Vol] 134 mmol/L Low 135-145 [facility] Comment on above: Performed By: #### Yumiko ABAlina, [id number], LAB17 ####Choral Director: MESERET PAULA ([id number])[facility])[address] [place] [address] Urea nitrogen [Mass/Vol] 16 mg/dL Normal 7-17 [facility] Comment on above: Performed By: #### Yumiko AB113, [id number], LAB17 ####Choral Director: MESERET PAULA ([id number])[facility])[address] [place] [address] CT HEAD WO IV CONTRASTon CT HEAD WO IV CONTRAST Normal [facility] CT Head WO contraston 2023 [facility] EMERGENCY [facility]PART[facility] RADIOLOGY SYSTEM [facility] EM[facility]GENC[facility]PART[facility] RADIOLOGY SYSTEM [facility] Radiology Study observation (narrative) [facility] [place] Head WO contrastOrdered B y: Bartolo Bateman on 03-18-2024 [facility] Work Phone: Comprehensive metabolic 1998 panelon 03-18-2024 Albumin [Mass/Vol] 3.7 g/dL 3.5 - 5.0 g/dL [facility] ALP [Catalytic activity/Vol] 115 U/L 38 - 126 U/L [facility] ALT [Catalytic activity/Vol] 27 U/L 0 - 34 U/L [facility] Anion gap [Moles/Vol] 5 mmol/L 3 - 13 mmol/L [facility] AST [Catalytic activity/Vol] 67 U/L High 15 - 46 U/L [facility] Bilirubin [Mass/Vol] 1.0 mg/dL 0.2 - 1 .3 mg/dL [facility] Calcium [Mass/Vol] 8.8 mg/dL 8.4 - 10. 4 mg/dL [facility] Chloride [Moles/Vol] 105 mmol/L 98 - 10 7 mmol/L [facility] CO2 [Moles/Vol] 24 mmol/L 22 - 30 mmol/L [facility] Creatinine [Mass/Vol] 0.85 mg/dL 0.52 - 1.04 mg/dL [facility] GFR/1.73 sq M.predicted MDRD (S/P/Bld) [Vol rate/Area] 82.6 mL/min/{1.73_m2} - PINF [facility] Glucose [Mass/Vol] 206 mg/dL High 70 - 100 mg/dL [facility] Interpretation and review of laboratory results Abnormal [facility] Potassium [Moles/Vol] 3.8 mmol/L 3.5 - 5.1 mmol/L [facility] Protein [Mass/Vol] 7.3 g/dL 6.3 - 8.2 g/dL [facility] Sodium [Moles/Vol] 134 mmol/L Low 135 - 145 mmol/L [facility] Urea nitrogen [Mass/Vol] 16 mg/dL 7 - 17 mg/dL [facility] Consulton 03-18-2024 Consult Normal [facility] Consult Normal [facility] Consult Normal [facility] Consult Normal [facility] ECG 12-LEADon 03-18-2024 ECG 12-LEAD IMPRESSION: Sinus rhythm Right axis deviation Abnormal T, consider ischemia, lateral leads Electronically Signed On 03-18-2024 17:22:31 EDT by Justine Connolly [facility] ECG 12-LEAD IMPRESSION: Sinus rhythm Abnormal T, consider ischemia, lateral leads ST elevation, consider inferior injury Electronically Signed On 03-18-2024 17:20:07 EDT by Justine Connolly [facility] Laboratory - Chemistry and C hemistry - challengeon 03-18-2024 Glucose [Mass/Vol] 178 mg/dL High 70 - 100 mg/dL [facility] Glucose [Mass/Vol] 214 mg/dL High 70 - 100 mg/dL [facility] Glucose [Mass/Vol] 242 mg/dL High 70 - 100 mg/dL [facility] Magnesium [Mass/Vol] 2.0 mg/dL 1.6 - 2 .3 mg/dL [facility] MAGNESIUMon 03-18-2024 Magnesium [Mass/Vol] 2.0 mg/dL Normal 1.6-2.3 [facility] Comment on above: Performed By: #### L AB113, [id number], LAB17 ####Choral Director: MESERET PAULA ([id number])[facility] ([address] No Panel Informationon 03-18 Interpretation and review of laboratory results Abnormal [facility] P [place] -44 degrees [facility] VA Interval 150 ms [facility] QRS [place] 154 degrees [facility] Health QRSD Interval 90 ms [facility] QT Interval 410 ms [facility] QTC Interval 487 ms [facility] T Wave [place] 96 degrees [facility] Health CV EPIPHANY [facility] Health CV EPIPHANY [facility] Health Interpretation and review of laboratory results Abnormal [facility] Interpretation and review of laboratory results Abnormal [facility] Interpretation and review of laboratory results Normal [facility] No Panel InformationOrdered By: Justine Connolly on 03-18-2024 P [place] 65 degrees [facility] Work Phone: VA Interval 162 ms [facility] Work Phone: QRS [place] 4 degrees [facility] Work Phone: QRSD Interval 91 ms [facility] Work Phone: QT Interval 406 ms [employer] [facility] Work Phone: QTC Interval 476 ms [facility] Work Phone: T Wave [place] 139 degrees [employer] [facility] [facility] Work Phone: [employer] Work Phone: PHOSPHORUSon 03-18-2024 Phosphate [Mass/Vol] 3.1 mg/dL Normal 2.5-4.5 [facility] Comment on above: Performed By: #### L AB113, [id number], LAB17 ####Choral Director: MESERET PAULA ([id number])[address] Phosphate [Moles/Vol]on 02-24 Phosphate [Mass/Vol] 3.1 mg/dL 2.5 - 4 .5 mg/dL [employer] [facility] Progress Noteon 03-18-2024 Progress Note Normal [facility] Progress Note Normal [facility] Progress Note Normal [facility] Progress Note Normal [facility] Vital signson 03-18-2024 Heart rate 85 /min bpm [facility] Vital signsOrdered By: Justine Connolly on 03-18-2024 Heart rate 82 /min bpm [employer] Work Phone: CBC W Auto Differential pane l (Bld)on 03-17-2024 Basophils (Bld) [#/Vol] 0.1 10*3/uL 0.0 - 0.2 10*3/uL [employer] [facility] Basophils/100 WBC (Bld) 0.4 % 0.0 - 2.0 % [facility] Eosinophils (Bld) [#/Vol] 0.1 10*3/uL 0.0 - 0.5 10*3/uL [employer] [facility] Eosinophils/100 WBC (Bld) 0.8 % 0.0 - 6.0 % [employer] [facility] Erythrocyte distribution width (RBC) [Ratio] 13.9 % 11.5 - 15.0 % [employer] [facility] Hematocrit (Bld) [Volume fraction] 46.5 % 35.0 - 47.0 % [employer] [facility] Hemoglobin (Bld) [Mass/Vol] 15.2 g/dL 11.7 - 16.0 g/dL [facility] Immature granulocytes (Bld) [#/Vol] 0.1 10*3/uL High NINF - 0.1 10*3/uL [facility] Health Immature granulocytes/100 WBC (Bld) 0.4 % 0.0 - 2.0 % [facility] Interpretation and review of laboratory results Abnormal [facility] IPF 13 [facility] Lymphocytes (Bld) [#/Vol] 2.9 10*3/uL 1.0 - 4.3 10*3/uL [facility] Lymphocytes/100 WBC (Bld) 17.5 % 15.0 - 45.0 % [facility] MCH (RBC) [Entitic mass] 28.7 pg 26.0 - 34.0 pg [facility] MCHC (RBC) [Mass/Vol] 32.7 % 30.5 - 36.0 % [facility] MCV (RBC) [Entitic vol] 87.7 fL 77.0 - 99.0 fL [facility] Monocytes (Bld) [#/Vol] 1.6 10*3/uL High 0.0 - 0.9 10*3/uL [facility] Monocytes/100 WBC (Bld) 10.0 % 5.0 - 13.0 % [facility] Neutrophils (Bld) [#/Vol] 11.5 10*3/uL High 1.8 - 7.5 10*3/uL [facility] Health Neutrophils/100 WBC (Bld) 70.9 % 38.0 - 82.0 % [facility] Nucleated RBC/100 WBC (Bld) [Ratio] 0.0 % [facility] Platelet mean volume (Bld) [Entitic vol] 13.3 fL High 9.0 - 12.7 fL [facility] [facility] Platelets (Bld) [#/Vol] 187 10*3/uL 140 - 440 10*3/uL [facility] RBC (Bld) [#/Vol] 5.30 10*6/uL High 3.80 - 5.2 0 10*6/uL [facility] WBC (Bld) [#/Vol] 16.3 10*3/uL High 3.6 - 10.7 10*3/uL [facility] Health CBC WITH AUTO DIFFERENTIALon 03-17-2024 Basophils (Bld) [#/Vol] 0.1 10*3/uL Normal 0.0-0.2 [facility] Comment on above: Performed By: #### L [id number] ####Choral Director: MESERET PAULA ([phone])[facility])[address] [place] [address] Basophils/100 WBC (Bld) 0.4 % Normal 0.0-2.0 [facility] Comment on above: Performed By: #### L [id number] ####Choral Director: MESERET PAULA ([id number])[facility] ([facility])[address] [place] [address] Eosinophils (Bld) [#/Vol] 0.1 10*3/uL Normal 0.0-0.5 [facility] Comment on above: Performed By: #### L [id number] ####Choral Director: MESERET PAULA ([id number])[facility])[address] [place] [address] Eosinophils/100 WBC (Bld) 0.8 % Normal 0.0-6.0 [facility] Comment on above: Performed By: #### L [id number] ####Choral Director: MESERET PAULA ([id number])[facility])[address] [place] [address] Erythrocyte distribution width (RBC) [Ratio] 13.9 % Normal 11.5-15.0 [facility] Comment on above: Performed By: #### L [id number] ####Choral Director: MESERET PAULA ([id number])[facility])[address] [place] [address] Hematocrit (Bld) [Volume fraction] 46.5 % Normal 35.0-47.0 [facility] Comment on above: Performed By: #### L [id number] ####Choral Director: MESERET PAULA ([id number])[facility])[address] [place] [address] Hemoglobin (Bld) [Mass/Vol] 15.2 g/dL Normal 11.7-16.0 [facility] Comment on above: Performed By: #### L [id number] ####Choral Director: MESERET PAULA ([id number])[facility])[address] [place] [address] IMMATURE GRANS % 0.4 % Normal 0.0-2.0 [facility] Comment on above: Performed By: #### L [id number] ####Choral Director: MESREET PAULA ([id number])[facility])[address] [place] [address] IMMATURE GRANS ABSOLUTE 0.1 10*3/uL High <0.1 [facility] Comment on above: Performed By: #### L [id number] ####Choral Director: MESERET PAULA ([id number])[address] IPF 13 Normal [facility] Comment on above: Performed By: #### L [id number] ####Choral Director: MESERET PAULA ([id number])[facility])[address] [place] [address] Lymphocytes (Bld) [#/Vol] 2.9 10*3/uL Normal 1.0-4.3 [facility] Comment on above: Performed By: #### L [id number] ####Choral Director: MESERET PAULA ([id number])[address] Lymphocytes/100 WBC (Bld) 17.5 % Normal 15.0-45.0 [facility] Comment on above: Performed By: #### L [id number] ####Choral Director: MESERET PAULA ([id number])[address] MCH (RBC) [Entitic mass] 28.7 pg Normal 26.0-34.0 [facility] Comment on above: Performed By: #### L [id number] ####Choral Director: MESERET PAULA ([id number])[address] [place] [address] [place] MCHC 32.7 % Normal 30.5-36.0 [facility] Comment on above: Performed By: #### L [id number] ####Choral Director: MESERET PAULA ([id number])[facility])[address] [place] [address] MCV (RBC) [Entitic vol] 87.7 fL Normal 77.0-99.0 [facility] Comment on above: Performed By: #### L [id number] ####Choral Director: MESERET PAULA ([id number])[facility])[address] [place] [address] Monocytes (Bld) [#/Vol] 1.6 10*3/uL High 0.0-0.9 [facility] Comment on above: Performed By: #### L [id number] ####Choral Director: MESERET PAULA ([id number])[facility] ([facility])[address] [place] [address] Monocytes/100 WBC (Bld) 10.0 % Normal 5.0-13.0 [facility] Comment on above: Performed By: #### L [id number] ####Choral Director: MESERET PAULA ([id number])[facility] ([facility])[address] [place] [address] NEUTROPHILS ABSOLUTE 11.5 10*3/uL High 1.8-7.5 [facility] Comment on above: Performed By: #### L [id number] ####Choral Director: MESERET PAULA ([id number])[facility])[address] [place] [address] Neutrophils/100 WBC (Bld) 70.9 % Normal 38.0-82.0 [facility] Comment on above: Performed By: #### L [id number] ####Choral Director: MESERET PAULA ([id number])[facility])[address] [place] [address] [place] NRBC 0.0 /100 WBCs Normal 0.0-2.0 [facility] Comment on above: Performed By: #### L [id number] ####Choral Director: MESERET PAULA ([id number])[facility])[address] [place] [address] Platelet mean volume (Bld) [Entitic vol] 13.3 fL High 9.0-12.7 [facility] Comment on above: Performed By: #### L [id number] ####Choral Director: MESERET PAULA ([id number])[facility] ([facility])[address] [place] [address] Platelets (Bld) [#/Vol] 187 10*3/uL Normal 140-440 [facility] Comment on above: Performed By: #### L [id number] ####Choral Director: MESERET PAULA ([id number])[facility] ([facility])[address] [place] [address] RBC (Bld) [#/Vol] 5.30 10*6/uL High 3.80-5.20 [facility] Comment on above: Performed By: #### L [id number] ####Choral Director: MESERET PAULA ([id number])[facility] ([facility])[address] [place] [address] WBC (Bld) [#/Vol] 16.3 10*3/uL High 3.6-10.7 [facility] Comment on above: Performed By: #### L [id number] ####Choral Director: MESERET PAULA ([id number])[facility] ([facility])[address] [place] [address] COMPREHENSIVE METABOLIC PANE [place] 03-17-2024 Albumin [Mass/Vol] 4.0 g/dL Normal 3.5-5.0 [facility] Comment on above: Performed By: #### L [id number], [id number], [id number] ####Choral Director: MESERET PAULA ([id number])[facility])[address] [place] [address] ALP [Catalytic activity/Vol] 128 U/L High 38-126 [facility] Comment on above: Performed By: #### L [id number], [id number], LAB17 ####Choral Director: MESERET PAULA ([id number])[facility] ([facility])[address] [place] [address] ALT [Catalytic activity/Vol] 40 U/L High 0-34 [facility] Comment on above: Performed By: #### L [id number], [id number], LAB17 ####Choral Director: MESERET PAULA ([id number])[facility] ([facility])[address] [place] [address] Anion gap [Moles/Vol] 8 mmol/L Normal 3-13 [facility] Comment on above: Performed By: #### Yumiko AB113, [id number], LAB17 ####Choral Director: MESERET PAULA ([id number])[facility])[address] [place] [address] AST [Catalytic activity/Vol] 132 U/L High 15-46 [facility] Comment on above: Performed By: #### L [id number], [id number], LAB17 ####Choral Director: MESERET PAULA ([id number])[facility] ([facility])[address] [place] [address] Bilirubin [Mass/Vol] 1.0 mg/dL Normal 0.2-1.3 [facility] Comment on above: Performed By: #### L [id number], [id number], LAB17 ####Choral Director: MESERET PAULA ([id number])[facility] ([facility])[address] [place] [address] Calcium [Mass/Vol] 9.0 mg/dL Normal 8.4-10.4 [facility] Comment on above: Performed By: #### L [id number], [id number], LAB17 ####Choral Director: MESERET PAULA ([id number])[facility])[address] [place] [address] Chloride [Moles/Vol] 102 mmol/L Normal 98-107 [facility] Comment on above: Performed By: #### L [id number], [id number], LAB17 ####Choral Director: MESERET PAULA ([id number])[facility] [place] [address] [place] CO2 [Moles/Vol] 24 mmol/L Normal 22-30 [facility] Comment on above: Performed By: #### Yumiok AB113, [id number], LAB17 ####Choral Director: MESERET PAULA ([id number])[facility])[address] [place] [address] Creatinine [Mass/Vol] 0.89 mg/dL Normal 0.52-1.04 [facility] Comment on above: Performed By: #### Yumiko ABAlina, [id number], LAB17 ####Choral Director: MESERET PAULA ([id number])[facility])[address] [place] [address] [place] GLOMERULAR FILTRATION RATE ML/MIN/1.73 SQ M.PREDICTED 78.1 mL/min/1.73m*2 Normal >60.0 [facility] Comment on above: Result Comment: Calc ulation based on the Chronic Kidney Disease Epidemiology Collaboration (CKD-EPI) equation refit without adjustment for race Performed By: #### Yumiko LADD, [id number], [id number] ####Choral Director: MESERET PAULA ([id number])[facility] ([facility])[address] [place] [address] [place] Glucose [Mass/Vol] 269 mg/dL High 70-100 [facility] Comment on above: Performed By: #### Yumiko ABAlina, [id number], LAB17 ####Choral Director: MESERET PAULA ([id number])[facility] ([facility])[address] [place] [address] [place] Potassium [Moles/Vol] 4.0 mmol/L Normal 3.5-5.1 [facility] Comment on above: Performed By: #### Yumiko AB113, [id number], LAB17 ####Choral Director: MESERET PAULA ([id number])[facility] ([facility])[address] [place] [address] [place] Protein [Mass/Vol] 7.9 g/dL Normal 6.3-8.2 [facility] Comment on above: Performed By: #### L AB113, [id number], LAB17 ####Choral Director: MESERET PAULA ([id number])[facility] ([facility])[address] [place] [address] Sodium [Moles/Vol] 133 mmol/L Low 135-145 [facility] Comment on above: Performed By: #### L AB113, [id number], LAB17 ####Choral Director: MESERET PAULA ([id number])[facility] ([facility])[address] [place] [address] Urea nitrogen [Mass/Vol] 22 mg/dL High 7-17 [facility] Comment on above: Performed By: #### L AB113, [id number], LAB17 ####Choral Director: MESERET PAULA ([id number])[facility])[address] [place] [address] Cardiac catheterization stud yon 03-17-2024 CV CPACS HEMO Cardiac catheterization stud yOrdered By: Maximo Max on 03-17-2024 [facility] Work Phone: Comprehensive metabolic 1998 panelon 03-17-2024 Albumin [Mass/Vol] 4.0 g/dL 3.5 - 5.0 g/dL [facility] ALP [Catalytic activity/Vol] 128 U/L High 38 - 126 U/L [facility] ALT [Catalytic activity/Vol] 40 U/L High 0 - 34 U/L [facility] Anion gap [Moles/Vol] 8 mmol/L 3 - 13 mmol/L [facility] AST [Catalytic activity/Vol] 132 U/L High 15 - 46 U/L [facility] Bilirubin [Mass/Vol] 1.0 mg/dL 0.2 - 1 .3 mg/dL [facility] Calcium [Mass/Vol] 9.0 mg/dL 8.4 - 10. 4 mg/dL [facility] Chloride [Moles/Vol] 102 mmol/L 98 - 10 7 mmol/L [facility] CO2 [Moles/Vol] 24 mmol/L 22 - 30 mmol/L [facility] Creatinine [Mass/Vol] 0.89 mg/dL 0.52 - 1.04 mg/dL [facility] GFR/1.73 sq M.predicted MDRD (S/P/Bld) [Vol rate/Area] 78.1 mL/min/{1.73_m2} - PINF [facility] Glucose [Mass/Vol] 269 mg/dL High 70 - 100 mg/dL [facility] Interpretation and review of laboratory results Abnormal [facility] Potassium [Moles/Vol] 4.0 mmol/L 3.5 - 5.1 mmol/L [facility] Protein [Mass/Vol] 7.9 g/dL 6.3 - 8.2 g/dL [facility] Sodium [Moles/Vol] 133 mmol/L Low 135 - 145 mmol/L [facility] Urea nitrogen [Mass/Vol] 22 mg/dL High 7 - 17 mg/dL [facility] Consulton 03-17-2024 Consult Normal [facility] Laboratory - Chemistry and C hemistry - challengeon 03-17-2024 Glucose [Mass/Vol] 242 mg/dL High 70 - 100 mg/dL [facility] Lipoprotein a [Mass/Vol] 19 mg/dL NINF - 29 mg/dL [facility] Glucose [Mass/Vol] 287 mg/dL High 70 - 100 mg/dL [facility] Glucose [Mass/Vol] 369 mg/dL High 70 - 100 mg/dL [facility] Glucose [Mass/Vol] 255 mg/dL High 70 - 100 mg/dL [facility] Magnesium [Mass/Vol] 1.7 mg/dL 1.6 - 2 .3 mg/dL [facility] MAGNESIUMon 03-17-2024 Magnesium [Mass/Vol] 1.7 mg/dL Normal 1.6-2.3 [facility] Comment on above: Performed By: #### L [id number], [id number], LAB17 ####Choral Director: MESERET PAULA ([id number])[facility] ([address] No Panel Informationon 03-17 Interpretation and review of laboratory results Abnormal [facility] Interpretation and review of laboratory results Abnormal [facility] Interpretation and review of laboratory results Abnormal [facility] Interpretation and review of laboratory results Abnormal [facility] Interpretation and review of laboratory results Normal [facility] PHOSPHORUSon 03-17-2024 Phosphate [Mass/Vol] 3.1 mg/dL Normal 2.5-4.5 [facility] Comment on above: Performed By: #### L AB113, [id number], LAB17 ####Choral Director: MESERET PAULA ([id number])[address] Phosphate [Moles/Vol]on 02-24 Phosphate [Mass/Vol] 3.1 mg/dL 2.5 - 4 .5 mg/dL [facility] Progress Noteon 03-17-2024 Progress Note Nutrition rescreen completed. Patient referred to the Dietitian for uncontrolled DM. Yashira Ferrer, LYUBOV Normal [facility] Progress Note Normal [facility] Progress Note Normal [facility] US Heart TransthoracicOrdere d By: Shine Almendarez on 03-17-2024 Ao Root Index 1.20 cm/m2 [facility] Work Phone: Aortic Root 2.3 cm [facility] Work Phone: Ascending Aorta 3.[address] [facility] Work Phone: Ascending Aorta Index 1.61 cm/m2 [facility] Work Phone: EF BP 65 % 55 - 100 % [facility] Work Phone: Fractional Shortening 2D 30 % 28 - 44 % [facility] Work Phone: Interpretation and review of laboratory results Abnormal [facility] Work Phone: IVSd 1.4 cm Abnormal 0.6 - 0.9 cm [facility] Work Phone: LA Diameter 4.5 cm [facility] Work Phone: LA Size Index 2.34 cm/m2 [facility] Work Phone: LA Volume 2C 81 mL Abnormal 22 - 52 mL [facility] Work Phone: LA Volume 4C 68 mL Abnormal 22 - 52 mL [facility] Work Phone: LA Volume A/L 79 [facility] Work Phone: [phone] LA Volume BP 74 mL Abnormal 22 - 52 mL [facility] Work Phone: LA Volume Index 2C 42 mL/m2 Abnormal 16 - 34 mL/m2 [facility] Work Phone: [phone] LA Volume Index 4C 35 mL/m2 Abnormal 16 - 34 mL/m2 [facility] Work Phone: [phone] LA Volume Index A/L 41 mL/m2 16 - 34 mL/m2 [facility] Work Phone: [phone] LA Volume Index BP 39 ml/m2 16 - 34 ml/m2 [facility] Work Phone: LA/AO Root Ratio 1.96 [facility] Work Phone: LV E' Lateral Velocity 6 cm/s [facility] Work Phone: [phone] LV E' Septal Velocity 6 cm/s [facility] Work Phone: LV EDV A2C 147 mL [facility] Work Phone: LV EDV A4C 169 mL [facility] Work Phone: [phone] LV EDV BP 163 mL Abnormal 56 - 104 mL [facility] Work Phone: LV EDV Index A2C 77 mL/m2 [facility] Work Phone: LV EDV Index A4C 88 mL/m2 [facility] Work Phone: LV EDV Index BP 85 mL/m2 [facility] Work Phone: LV Ejection Fraction A2C 67 % [facility] Work Phone: LV Ejection Fraction A4C 63 % [facility] Work Phone: LV ESV A2C 48 mL [facility] Work Phone: LV ESV A4C 62 mL [facility] Work Phone: [phone] LV ESV BP 56 mL Abnormal 19 - 49 mL [facility] Work Phone: LV ESV Index A2C 25 mL/m2 [facility] Work Phone: LV ESV Index A4C 32 mL/m2 [facility] Work Phone: LV ESV Index BP 29 mL/m2 [facility] Work Phone: LV Mass 2D 276.4 g Abnormal 67 - 162 g [facility] Work Phone: LV Mass 2D Index 144.0 g/m2 Abnormal 43 - 95 g/m2 [facility] [employer] Work Phone: LV RWT Ratio 0.52 [facility] Work Phone: LVIDd 5.0 cm 3.9 - 5.3 cm [facility] Work Phone: LVIDd Index 2.60 cm/m2 [facility] Work Phone: LVIDs 3.5 cm [facility] Work Phone: LVIDs Index 1.82 cm/m2 [facility] Work Phone: LVOT Area 2.3 cm2 [facility] Work Phone: LVOT Cardiac Output 3.7 liter/minute [facility] Work Phone: LVOT Diameter 1.7 cm [facility] Work Phone: LVOT Mean Gradient 3 mmHg [facility] Work Phone: LVOT Peak Gradient 5 mmHg [facility] Work Phone: LVOT Peak Velocity 1.2 m/s [facility] Work Phone: LVOT Stroke Volume Index 19.4 mL/m2 [facility] Work Phone: LVOT SV 37.2 ml [facility] Work Phone: LVOT VTI 16.4 cm [facility] Work Phone: [phone] LVPWd 1.3 cm Abnormal 0.6 - 0.9 cm [facility] Work Phone: RA Area 4C 37.0 mL [facility] Work Phone: RA Area 4C 34.7 mL [facility] Work Phone: RV Basal Dimension 4.1 cm [facility] Work Phone: RV Mid Dimension 3.3 cm [facility] Work Phone: TAPSE 2.2 cm 1.7 cm [facility] Work Phone: [facility] Work Phone: US Heart Transthoracicon CV CPACS APTTon 03-16-2024 aPTT Coag (Bld) [Time] 27.4 s Normal 20.0-30.5 [facility] Comment on above: Result Comment: MARY Minor COMMENTS:NOTE: The therapeutic time for Heparin anticoagulation, based on Xa activity inhibition, is an APTT of 46-80 seconds. Performed By: #### L [id number] ####Choral Director: MESERET PAULA ([id number])[facility] ([address] Anesthesia Noteon 03-16-2024 Anesthesia Note Normal [facility] CBC W Auto Differential pane l (Bld)on 03-16-2024 Erythrocyte distribution width (RBC) [Ratio] 13.7 % 11.5 - 15.0 % [facility] Hematocrit (Bld) [Volume fraction] 45.0 % 35.0 - 47.0 % [facility] Hemoglobin (Bld) [Mass/Vol] 14.6 g/dL 11.7 - 16.0 g/dL [facility] Interpretation and review of laboratory results Abnormal [facility] MCH (RBC) [Entitic mass] 28.7 pg 26.0 - 34.0 pg [facility] MCHC (RBC) [Mass/Vol] 32.4 % 30.5 - 36.0 % [facility] MCV (RBC) [Entitic vol] 88.6 fL 77.0 - 99.0 fL [facility] Platelet mean volume (Bld) [Entitic vol] 12.9 fL High 9.0 - 12.7 fL [facility] Platelets (Bld) [#/Vol] 203 10*3/uL 140 - 440 10*3/uL [facility] RBC (Bld) [#/Vol] 5.08 10*6/uL 3.80 - 5.2 0 10*6/uL [facility] WBC (Bld) [#/Vol] 16.2 10*3/uL High 3.6 - 10.7 10*3/uL [facility] CBC WITH AUTO DIFFERENTIALon 03-16-2024 Erythrocyte distribution width (RBC) [Ratio] 13.7 % Normal 11.5-15.0 [facility] Comment on above: Performed By: #### L [id number], [id number] ####Choral Director: MESERET PAULA ([id number])[facility])[address] [place] [address] Hematocrit (Bld) [Volume fraction] 45.0 % Normal 35.0-47.0 [facility] Comment on above: Performed By: #### Yumiko [id number], [id number] ####Choral Director: MESERET PAULA ([id number])[facility])[address] [place] [address] Hemoglobin (Bld) [Mass/Vol] 14.6 g/dL Normal 11.7-16.0 [facility] Comment on above: Performed By: #### Yumiko [id number], [id number] ####Choral Director: MESERET PAULA ([id number])[facility])[address] [place] [address] MCH (RBC) [Entitic mass] 28.7 pg Normal 26.0-34.0 [facility] Comment on above: Performed By: #### Yumiko [id number], [id number] ####Choral Director: MESERET PAULA ([id number])[facility])[address] [place] [address] MCHC 32.4 % Normal 30.5-36.0 [facility] Comment on above: Performed By: #### L [id number], [id number] ####Choral Director: MESERET PAULA ([id number])[facility])[address] [place] [address] MCV (RBC) [Entitic vol] 88.6 fL Normal 77.0-99.0 [facility] Comment on above: Performed By: #### L [id number], [id number] ####Choral Director: MESERET PAULA ([phone])[facility])[address] [place] [address] Platelet mean volume (Bld) [Entitic vol] 12.9 fL High 9.0-12.7 [facility] Comment on above: Performed By: #### L [id number], [id number] ####Choral Director: MESERET PAULA ([phone])[facility] ([facility])[address] [place] [address] Platelets (Bld) [#/Vol] 203 10*3/uL Normal 140-440 [facility] Comment on above: Performed By: #### L [id number], [id number] ####Choral Director: MESERET PAULA ([id number])[facility])[address] [place] [address] RBC (Bld) [#/Vol] 5.08 10*6/uL Normal 3.80-5.20 [facility] Comment on above: Performed By: #### L [id number], [id number] ####Choral Director: MESERET PAULA ([id number])[facility])[address] [place] [address] WBC (Bld) [#/Vol] 16.2 10*3/uL High 3.6-10.7 [facility] Comment on above: Performed By: #### L [id number], [id number] ####Choral Director: MESERET PAULA ([phone])[facility])[address] [place] [address] COMPREHENSIVE METABOLIC PANE [place] 03-16-2024 Albumin [Mass/Vol] 3.8 g/dL Normal 3.5-5.0 [facility] Comment on above: Performed By: #### L [id number], LAB17 ####Choral Director: MESERET PAULA ([phone])[facility])[address] [place] [address] ALP [Catalytic activity/Vol] 110 U/L Normal 38-126 [facility] Comment on above: Performed By: #### L PRIYANKA, LAB17 ####Choral Director: MESERET PAULA ([phone])[facility])[address] [place] [address] ALT [Catalytic activity/Vol] 48 U/L High 0-34 [facility] Comment on above: Performed By: #### L PRIYANKA, LAB17 ####Choral Director: MESERET PAULA ([id number])[facility] ([facility])[address] [place] [address] Anion gap [Moles/Vol] 6 mmol/L Normal 3-13 [facility] Comment on above: Performed By: #### Yumiko MATHEW, LAB17 ####Choral Director: MESERET PAULA ([phone])[facility])[address] [place] [address] AST [Catalytic activity/Vol] 182 U/L High 15-46 [facility] Comment on above: Performed By: #### Yumiko MATHEW, LAB17 ####Choral Director: MESERET PAULA ([phone])[facility] ([facility])[address] [place] [address] Bilirubin [Mass/Vol] 1.0 mg/dL Normal 0.2-1.3 [facility] Comment on above: Performed By: #### Yumiko MATHEW, LAB17 ####Choral Director: MESERET PAULA ([phone])[facility])[address] [place] [address] Calcium [Mass/Vol] 9.2 mg/dL Normal 8.4-10.4 [facility] Comment on above: Performed By: #### L PRIYANKA, LAB17 ####Choral Director: MESERET PAULA ([phone])[facility])[address] [place] [address] Chloride [Moles/Vol] 105 mmol/L Normal 98-107 [facility] Comment on above: Performed By: #### L PRIYANKA, LAB17 ####Choral Director: MESERET PAULA ([phone])[facility] ([facility])[address] [place] [address] [place] CO2 [Moles/Vol] 27 mmol/L Normal 22-30 [facility] Comment on above: Performed By: #### L [id number], LAB17 ####Choral Director: MESERET PAULA ([phone])[facility])[address] [place] [address] Creatinine [Mass/Vol] 0.96 mg/dL Normal 0.52-1.04 [facility] Comment on above: Performed By: #### L [id number], LAB17 ####Choral Director: MESERET PAULA ([id number])[facility])[address] [place] [address] GLOMERULAR FILTRATION RATE ML/MIN/1.73 SQ M.PREDICTED 71.3 mL/min/1.73m*2 Normal >60.0 [facility] Comment on above: Result Comment: Calc ulation based on the Chronic Kidney Disease Epidemiology Collaboration (CKD-EPI) equation refit without adjustment for race Performed By: #### L [id number], LAB17 ####Choral Director: MESERET PAULA ([phone])[facility])[address] [place] [address] Glucose [Mass/Vol] 153 mg/dL High 70-100 [facility] Comment on above: Performed By: #### L [id number], LAB17 ####Choral Director: MESERET PAULA ([id number])[facility])[address] [place] [address] [place] Potassium [Moles/Vol] 3.9 mmol/L Normal 3.5-5.1 [facility] Comment on above: Performed By: #### L [id number], LAB17 ####Choral Director: MESERET PAULA ([id number])[facility])[address] [place] [address] [place] Protein [Mass/Vol] 7.4 g/dL Normal 6.3-8.2 [facility] Comment on above: Performed By: #### L [id number], LAB17 ####Choral Director: MESERET PAULA ([phone])[facility] ([facility])[address] [place] [address] Sodium [Moles/Vol] 138 mmol/L Normal 135-145 [facility] Comment on above: Performed By: #### L [id number], LAB17 ####Choral Director: MESERET PAULA ([id number])[facility] ([facility])[address] [place] [address] Urea nitrogen [Mass/Vol] 21 mg/dL High 7-17 [facility] Comment on above: Performed By: #### L [id number], LAB17 ####Choral Director: MESERET PAULA ([id number])[facility] ([facility])[address] [place] [address] Comprehensive metabolic 1998 panelon 03-16-2024 Albumin [Mass/Vol] 3.8 g/dL 3.5 - 5.0 g/dL [facility] ALP [Catalytic activity/Vol] 110 U/L 38 - 126 U/L [facility] ALT [Catalytic activity/Vol] 48 U/L High 0 - 34 U/L [facility] Anion gap [Moles/Vol] 6 mmol/L 3 - 13 mmol/L [facility] AST [Catalytic activity/Vol] 182 U/L High 15 - 46 U/L [facility] Bilirubin [Mass/Vol] 1.0 mg/dL 0.2 - 1 .3 mg/dL [facility] Calcium [Mass/Vol] 9.2 mg/dL 8.4 - 10. 4 mg/dL [facility] Chloride [Moles/Vol] 105 mmol/L 98 - 10 7 mmol/L [facility] CO2 [Moles/Vol] 27 mmol/L 22 - 30 mmol/L [facility] Creatinine [Mass/Vol] 0.96 mg/dL 0.52 - 1.04 mg/dL [facility] GFR/1.73 sq M.predicted MDRD (S/P/Bld) [Vol rate/Area] 71.3 mL/min/{1.73_m2} - PINF [facility] Glucose [Mass/Vol] 153 mg/dL High 70 - 100 mg/dL [facility] Interpretation and review of laboratory results Abnormal [facility] Potassium [Moles/Vol] 3.9 mmol/L 3.5 - 5.1 mmol/L [facility] Protein [Mass/Vol] 7.4 g/dL 6.3 - 8.2 g/dL [facility] Sodium [Moles/Vol] 138 mmol/L 135 - 145 mmol/L [facility] Urea nitrogen [Mass/Vol] 21 mg/dL High 7 - 17 mg/dL [facility] Health Consulton 03-16-2024 Consult Normal [facility] HEMOGLOBIN A1Con 03-16-2024 Glucose [Mass/Vol] 335 mg/dL Normal [facility] Comment on above: Performed By: #### L AB90 ####Choral Director: MESERET PAULA ([id number])[facility])[address] [place] [address] HbA1c (Bld) [Mass fraction] 13.3 % High <5.7 [facility] Comment on above: Result Comment: Norm al less than 5.7%Prediabetes 5.7% to 6.4%Diabetes 6.5% or higher--HgbA1C levels may not be accurate in patients who have renal disease, received recent blood transfusions, are anemic, or who have dyshemoglobinemia. Performed By: #### L AB90 ####Choral Director: MESERET PAULA ([id number])[facility])[address] [place] [address] LIPID PANELon 03-16-2024 Cholesterol [Mass/Vol] 173 mg/dL Normal <200 [facility] Comment on above: Performed By: #### L AB18, [id number], [id number] ####Choral Director: MESERET PAULA ([id number])[facility])[address] [place] [address] Cholesterol in HDL [Mass/Vol] 39 mg/dL Low 40-60 [facility] Comment on above: Performed By: #### L AB18, [id number], [id number] ####Choral Director: MESERET PAULA ([id number])[facility])[address] [place] [address] Cholesterol.total/Radha sterol in HDL [Mass ratio] 4 {ratio} Normal [facility] Comment on above: Result Comment: Ref Range:< 3 Low Risk for CHD3-6 Mod Risk for CHD> 6 High Risk for CHD Performed By: #### L AB18, [id number], [id number] ####Choral Director: MESERET PAULA ([phone])[facility] ([facility])[address] [place] [address] LOW DENSITY LIPOPROTEIN 104 mg/dL High 0-<100 [facility] Comment on above: Performed By: #### L AB18, [id number], [id number] ####Choral Director: MESERET PAULA ([id number])[facility] ([facility])[address] [place] [address] Triglyceride [Mass/Vol] 150 mg/dL High <150 [facility] Comment on above: Performed By: #### L AB18, [id number], [id number] ####Choral Director: MESERET PAULA ([phone])[facility] ([facility])[address] [place] [address] Laboratory - Chemistry and C hemistry - challengeon 03-16-2024 Glucose [Mass/Vol] 286 mg/dL High 70 - 100 mg/dL [facility] Glucose [Mass/Vol] 209 mg/dL High 70 - 100 mg/dL [facility] TSH Qn 1.923 m[IU]/L [facility] h Average glucose Estimated from glycated hemoglobin (Bld) [Mass/Vol] 335 mg/dL [facility] Glucose [Mass/Vol] 203 mg/dL High 70 - 100 mg/dL [facility] Troponin I.cardiac [Mass/Vol] 37.400 ng/mL Critically high NINF - 0.034 ng/mL [facility] Laboratory - Chemistry and C hemistry - challengeOrdered By: Brandon Dao on 03-16-2024 Troponin I.cardiac [Mass/Vol] 41.600 ng/mL Critically high NINF - 0.034 ng/mL [facility] Laboratory - Hematology and Cell countson 03-16-2024 HbA1c (Bld) [Mass fraction] 13.3 % High NINF - 5.7 % [facility] Lipid 1996 panelon 4 Cholesterol [Mass/Vol] 173 mg/dL NINF - 200 mg/dL [facility] Cholesterol in HDL [Mass/Vol] 39 mg/dL Low 40 - 60 mg/dL [facility] Cholesterol in LDL [Mass/Vol] 104 mg/dL High 0 - <100 [facility] Cholesterol.total/Radha sterol in HDL [Mass ratio] 4 {ratio} [facility] Interpretation and review of laboratory results Abnormal [facility] Triglyceride [Mass/Vol] 150 mg/dL High NINF - 150 mg/dL [facility] MANUAL DIFFERENTIALon 2023 BASOPHILS (10*3/UL) IN BLOOD BY MANUAL COUNT 0.2 10*3/uL Normal 0.0-0.2 [facility] Comment on above: Performed By: #### L [id number], [id number] ####Choral Director: MESERET PAULA ([phone])[facility])[address] [place] [address] BASOPHILS TOTAL PER COUNTED LEUKOCYTES BY MANUAL COUNT 1 Normal [facility] Comment on above: Performed By: #### L [id number], [id number] ####Choral Director: MESERET PAULA ([phone])[facility])[address] [place] [address] [place] BASOPHILS/100 LEUKOCYTES IN BLOOD BY MANUAL COUNT 1 % Normal 0-2 [facility] Comment on above: Performed By: #### L [id number], [id number] ####Choral Director: MESERET PAULA ([phone])[facility])[address] [place] [address] CELLS COUNTED TOTAL (#) IN BLOOD 100 Normal [facility] Comment on above: Performed By: #### L [id number], [id number] ####Choral Director: MESERET [id number])[address] DIFFERENTIAL METHOD Automated differential reported after manual slide review Normal [facility] Comment on above: Performed By: #### L [id number], [id number] ####Choral Director: MESERET [id number])[facility] ([facility])[address] [place] [address] [place] EOSINOPHILS (10*3/UL) IN BLOOD BY MANUAL COUNT 0.2 10*3/uL Normal 0.0-0.5 [facility] Comment on above: Performed By: #### L [id number], [id number] ####Choral Director: MESERET PAULA ([phone])[facility])[address] [place] [address] [place] EOSINOPHILS TOTAL PER COUNTED LEUKOCYTES BY MANUAL COUNT 1 Normal 0-1 [facility] Comment on above: Performed By: #### L [id number], [id number] ####Choral Director: MESERET PAULA ([phone])[facility])[address] [place] [address] [place] EOSINOPHILS/100 LEUKOCYTES IN BLOOD BY MANUAL COUNT 1 % Normal 0-6 [facility] Comment on above: Performed By: #### L [id number], [id number] ####Choral Director: MESERET PAULA ([phone])[facility] ([facility])[address] [place] [address] [place] LEUKOCYTE MORPHOLOGY FINDING IN BLOOD Normal Normal [facility] Comment on above: Performed By: #### L [id number], [id number] ####Choral Director: MESERET PAULA ([phone])[facility])[address] [place] [address] [place] LEUKOCYTES (10*3/UL) NUCLEATED ERYTHROCYTE ADJUST 16.2 10*3/uL High 3.6-10.7 [facility] Comment on above: Performed By: #### L [id number], [id number] ####Choral Director: MESERET PAULA ([phone])[facility])[address] [place] [address] [place] LYMPHOCYTES (10*3/UL) IN BLOOD BY MANUAL COUNT 3.6 10*3/uL Normal 1.0-4.3 [facility] Comment on above: Performed By: #### L [id number], [id number] ####Choral Director: MESERET PAULA ([phone])[facility])[address] [place] [address] [place] LYMPHOCYTES TOTAL PER COUNTED LEUKOCYTES BY MANUAL COUNT 22 Normal [facility] Comment on above: Performed By: #### L [id number], [id number] ####Choral Director: MESERET PAULA ([phone])[facility] ([facility])[address] [place] [address] [place] LYMPHOCYTES/100 LEUKOCYTES IN BLOOD BY MANUAL COUNT 22 % Normal 15-45 [facility] Comment on above: Performed By: #### L [id number], [id number] ####Choral Director: MESERET PAULA ([id number])[facility] ([facility])[address] [place] [address] [place] MONOCYTES (10*3/UL) IN BLOOD BY MANUAL COUNT 1.6 10*3/uL High 0.0-0.9 [facility] Comment on above: Performed By: #### L [id number], [id number] ####Choral Director: MESERET PAULA ([phone])[facility] ([facility])[address] [place] [address] [place] MONOCYTES TOTAL PER COUNTED LEUKOCYTES BY MANUAL COUNT 10 Normal [facility] Comment on above: Performed By: #### L [id number], [id number] ####Choral Director: MESERET PAULA ([phone])[facility] ([facility])[address] [place] [address] [place] MONOCYTES/100 LEUKOCYTES IN BLOOD BY MANUAL COUNT 10 % Normal 5-13 [facility] Comment on above: Performed By: #### L [id number], [id number] ####Choral Director: MESERET PAULA ([phone])[facility] ([facility])[address] [place] [address] [place] NEUTROPHILS (SEGS+BANDS) (10*3/UL) BY MANUAL COUNT 10.7 10*3/uL High 1.8-7.0 [facility] Comment on above: Performed By: #### L [id number], [id number] ####Choral Director: MESERET PAULA ([id number])[facility] ([facility])[address] [place] [address] [place] NEUTROPHILS TOTAL PER COUNTED LEUKOCYTES BY MANUAL COUNT 66 Normal [facility] Comment on above: Performed By: #### L [id number], [id number] ####Choral Director: MESERET PAULA ([phone])[facility] ([facility])[address] [place] [address] PLATELET MORPHOLOGY IN BLOOD Normal Normal [facility] Comment on above: Performed By: #### L [id number], [id number] ####Choral Director: MESERET PAULA ([phone])[facility] ([facility])[address] [place] [address] RBC MORPHOLOGY IN BLOOD Normal Normal [facility] Comment on above: Performed By: #### L [id number], [id number] ####Choral Director: MESERET PAULA ([phone])[facility] ([facility])[address] [place] [address] SEGEMENTED NEUTROPHILS/100 LEUKOCYTES BY MANUAL COUNT 66 % Normal 38-82 [facility] Comment on above: Performed By: #### L [id number], [id number] ####Choral Director: MESERET PAULA ([phone])[facility] ([facility])[address] [place] [address] Manual differential performe d Ql (Bld)Ordered By: Dani Dickens on 03-16-2024 Basophils (Bld) [#/Vol] 0.2 10*3/uL 0.0 - 0.2 10*3/uL [facility] Basophils Manual 1 [facility] alth Basophils/100 WBC (Bld) 1 % 0 - 2 % [facility] Cells Counted Total (Bld) [#] 100 {cells} [facility] Differential Method Automated differential reported after manual slide review [facility] Eosinophils (Bld) [#/Vol] 0.2 10*3/uL 0.0 - 0.5 10*3/uL [facility] Eosinophils Manual 1 0 - 1 [facility] Eosinophils/100 WBC (Bld) 1 % 0 - 6 % [facility] Interpretation and review of laboratory results Abnormal [facility] Leukocyte morphology finding Nom (Bld) Normal [facility] Lymphocytes (Bld) [#/Vol] 3.6 10*3/uL 1.0 - 4.3 10*3/uL [facility] Lymphocytes Manual 22 [facility] Lymphocytes/100 WBC (Bld) 22 % 15 - 45 % [facility] Monocytes (Bld) [#/Vol] 1.6 10*3/uL High 0.0 - 0.9 10*3/uL [facility] Monocytes Manual 10 [facility] alth Monocytes/100 WBC (Bld) 10 % 5 - 13 % [facility] Neutrophils (Bld) [#/Vol] 10.7 10*3/uL High 1.8 - 7.0 10*3/uL [facility] Neutrophils Manual 66 [facility] Platelet morphology finding Nom (Bld) Normal [facility] RBC morphology finding Nom (Bld) Normal [facility] Segmented neutrophils/100 WBC (Bld) 66 % 38 - 82 % [facility] WBC corrected for nucl RBC (Bld) [#/Vol] 16.2 10*3/uL High 3.6 - 10.7 10*3/uL [facility] No Panel Informationon 03-16 Interpretation and review of laboratory results Abnormal [facility] Interpretation and review of laboratory results Abnormal [facility] Interpretation and review of laboratory results Normal [facility] POCT ACT 111 [facility] Interpretation and review of laboratory results Abnormal [facility] POCT ACT 232 High [facility] POCT ACT 225 High [facility] Interpretation and review of laboratory results Abnormal [facility] Interpretation and review of laboratory results Abnormal [facility] Progress Noteon 03-16-2024 Progress Note Normal [facility] THYROID STIMULATING HORMONEo n 03-16-2024 THYROID STIMULATING HORMONE 1.923 uIU/mL Normal 0.465-4.680 [facility] Comment on above: Performed By: #### L AB18, [id number], [id number] ####Choral Director: MESERET PAULA ([phone])[facility] ([address] TROPONIN Ion 03-16-2024 Troponin I.cardiac [Mass/Vol] 37.400 ng/mL Critically high <0.034 [facility] Comment on above: Result Comment: ORDE R COMMENTS:Slightly Hemolyzed. Interpret Troponin I with caution.Patients with high levels of Biotin oral intake (ie >5 mg/day) may have falsely decreased Troponin levels. Performed By: #### L AB18, [id number], [id number] ####Choral Director: MESERET PAULA ([phone])[facility])[address] [place] [address] Troponin I.cardiac [Mass/Vol] 41.600 ng/mL Critically high <0.034 [facility] Comment on above: Result Comment: ORDE R COMMENTS:Patients with high levels of Biotin oral intake (ie >5 mg/day) may have falsely decreased Troponin levels. Performed By: #### L [id number], LAB17 ####Choral Director: MESERET PAULA ([phone])[address] TSH Qnon 03-16-2024 Interpretation and review of laboratory results Normal [facility] Troponin I.cardiac [Mass/Vol ]on 03-16-2024 Interpretation and review of laboratory results Abnormal [facility] Troponin I.cardiac [Mass/Vol ]Ordered By: Brandon Dao on 03-16-2024 Interpretation and review of laboratory results Abnormal [facility] aPTT Coag (Bld) [Time]on aPTT Coag (PPP) [Time] 27.4 s 20.0 - 30.5 s [facility] Interpretation and review of laboratory results Normal [facility] APTTon 03-15-2024 aPTT Coag (Bld) [Time] 22.2 s Normal 20.0-30.5 [facility] Comment on above: Result Comment: MARY R COMMENTS:NOTE: The therapeutic time for Heparin anticoagulation, based on Xa activity inhibition, is an APTT of 46-80 seconds. Performed By: #### L [id number] ####Choral Director: MESERET PAULA ([phone])[facility] ([facility])[address] [place] [address] CBC W Auto Differential pane l (Bld)on 06-21-2024 Basophils (Bld) [#/Vol] 0.1 10*3/uL 0.0 - 0.2 10*3/uL [facility] Basophils/100 WBC (Bld) 0.4 % 0.0 - 2.0 % [facility] Eosinophils (Bld) [#/Vol] 0.2 10*3/uL 0.0 - 0.5 10*3/uL [facility] Eosinophils/100 WBC (Bld) 0.9 % 0.0 - 6.0 % [facility] Erythrocyte distribution width (RBC) [Ratio] 13.7 % 11.5 - 15.0 % [facility] Hematocrit (Bld) [Volume fraction] 48.1 % High 35.0 - 47.0 % [facility] Hemoglobin (Bld) [Mass/Vol] 15.9 g/dL 11.7 - 16.0 g/dL [facility] Immature granulocytes (Bld) [#/Vol] 0.1 10*3/uL High NINF - 0.1 10*3/uL [facility] Immature granulocytes/100 WBC (Bld) 0.3 % 0.0 - 2.0 % [facility] Interpretation and review of laboratory results Abnormal [facility] Lymphocytes (Bld) [#/Vol] 3.3 10*3/uL 1.0 - 4.3 10*3/uL [facility] Lymphocytes/100 WBC (Bld) 20.7 % 15.0 - 45.0 % [facility] MCH (RBC) [Entitic mass] 29.6 pg 26.0 - 34.0 pg [facility] MCHC (RBC) [Mass/Vol] 33.1 % 30.5 - 36.0 % [facility] MCV (RBC) [Entitic vol] 89.6 fL 77.0 - 99.0 fL [facility] Monocytes (Bld) [#/Vol] 1.4 10*3/uL High 0.0 - 0.9 10*3/uL [facility] Monocytes/100 WBC (Bld) 8.9 % 5.0 - 13.0 % [facility] Neutrophils (Bld) [#/Vol] 10.9 10*3/uL High 1.8 - 7.5 10*3/uL [facility] Neutrophils/100 WBC (Bld) 68.8 % 38.0 - 82.0 % [facility] Nucleated RBC/100 WBC (Bld) [Ratio] 0.0 % [facility] Platelet mean volume (Bld) [Entitic vol] 12.8 fL High 9.0 - 12.7 fL [facility] [facility] Platelets (Bld) [#/Vol] 231 10*3/uL 140 - 440 10*3/uL [facility] RBC (Bld) [#/Vol] 5.37 10*6/uL High 3.80 - 5.2 0 10*6/uL [facility] WBC (Bld) [#/Vol] 15.8 10*3/uL High 3.6 - 10.7 10*3/uL [facility] CBC WITH AUTO DIFFERENTIALon 03-15-2024 Basophils (Bld) [#/Vol] 0.1 10*3/uL Normal 0.0-0.2 [facility] Comment on above: Performed By: #### L [id number] ####Choral Director: MESERET PAULA ([phone])[facility])[address] [place] [address] Basophils/100 WBC (Bld) 0.4 % Normal 0.0-2.0 [facility] Comment on above: Performed By: #### L [id number] ####Choral Director: MESERET PAULA ([id number])[facility])[address] [place] [address] Eosinophils (Bld) [#/Vol] 0.2 10*3/uL Normal 0.0-0.5 [facility] Comment on above: Performed By: #### L [id number] ####Choral Director: MESERET PAULA ([id number])[facility] ([facility])[address] [place] [address] Eosinophils/100 WBC (Bld) 0.9 % Normal 0.0-6.0 [facility] Comment on above: Performed By: #### L [id number] ####Choral Director: MESERET PAULA ([phone])[facility])[address] [place] [address] Erythrocyte distribution width (RBC) [Ratio] 13.7 % Normal 11.5-15.0 [facility] Comment on above: Performed By: #### L [id number] ####Choral Director: MESERET PAULA ([phone])[address] Hematocrit (Bld) [Volume fraction] 48.1 % High 35.0-47.0 [facility] Comment on above: Performed By: #### L [id number] ####Choral Director: MESERET PAULA ([phone])[facility])[address] [place] [address] Hemoglobin (Bld) [Mass/Vol] 15.9 g/dL Normal 11.7-16.0 [facility] Comment on above: Performed By: #### L [id number] ####Choral Director: MESERET PAULA ([id number])[facility])[address] [place] [address] IMMATURE GRANS % 0.3 % Normal 0.0-2.[address] [facility] Comment on above: Performed By: #### L [id number] ####Choral Director: MESERET PAULA ([id number])[address] IMMATURE GRANS ABSOLUTE 0.1 10*3/uL High <0.1 [facility] Comment on above: Performed By: #### L [id number] ####Choral Director: MESERET PAULA ([id number])[facility])[address] [place] [address] Lymphocytes (Bld) [#/Vol] 3.3 10*3/uL Normal 1.0-4.3 [facility] Comment on above: Performed By: #### L [id number] ####Choral Director: MESERET PAULA ([phone])[address] Lymphocytes/100 WBC (Bld) 20.7 % Normal 15.0-45.0 [facility] Comment on above: Performed By: #### L [id number] ####Choral Director: MESERET [id number])[facility] ([facility])[address] [place] [address] MCH (RBC) [Entitic mass] 29.6 pg Normal 26.0-34.0 [facility] Comment on above: Performed By: #### L [id number] ####Choral Director: MESERET PAULA ([id number])[facility])[address] [place] [address] MCHC 33.1 % Normal 30.5-36.0 [facility] Comment on above: Performed By: #### L [id number] ####Choral Director: MESERET PAULA ([id number])[facility])[address] [place] [address] MCV (RBC) [Entitic vol] 89.6 fL Normal 77.0-99.0 [facility] Comment on above: Performed By: #### L [id number] ####Choral Director: MESERET PAULA ([id number])[facility] ([facility])[address] [place] [address] Monocytes (Bld) [#/Vol] 1.4 10*3/uL High 0.0-0.9 [facility] Comment on above: Performed By: #### L [id number] ####Choral Director: MESERET PAULA ([id number])[facility])[address] [place] [address] Monocytes/100 WBC (Bld) 8.9 % Normal 5.0-13.0 [facility] Comment on above: Performed By: #### L [id number] ####Choral Director: MESERET PAULA ([phone])[facility])[address] [place] [address] NEUTROPHILS ABSOLUTE 10.9 10*3/uL High 1.8-7.5 [facility] Comment on above: Performed By: #### L [id number] ####Choral Director: MESERET PAULA ([phone])[facility])[address] [place] [address] Neutrophils/100 WBC (Bld) 68.8 % Normal 38.0-82.0 [facility] Comment on above: Performed By: #### L [id number] ####Choral Director: MESERET PAULA ([id number])[facility] ([facility])[address] [place] [address] NRBC 0.0 /100 WBCs Normal 0.0-2.0 [facility] Comment on above: Performed By: #### L [id number] ####Choral Director: MESERET PAULA ([id number])[facility] ([facility])[address] [place] [address] Platelet mean volume (Bld) [Entitic vol] 12.8 fL High 9.0-12.7 [facility] Comment on above: Performed By: #### L [id number] ####Choral Director: MESERET PAULA ([phone])[facility] ([facility])[address] [place] [address] Platelets (Bld) [#/Vol] 231 10*3/uL Normal 140-440 [facility] Comment on above: Performed By: #### L [id number] ####Choral Director: MESERET PAULA ([id number])[facility] ([facility])[address] [place] [address] RBC (Bld) [#/Vol] 5.37 10*6/uL High 3.80-5.20 [facility] Comment on above: Performed By: #### L [id number] ####Choral Director: MESERET PAULA ([id number])[facility] ([facility])[address] [place] [address] WBC (Bld) [#/Vol] 15.8 10*3/uL High 3.6-10.7 [facility] Comment on above: Performed By: #### L [id number] ####Choral Director: MESERET PAULA ([id number])[facility] ([facility])[address] [place] [address] COMPREHENSIVE METABOLIC PANE [place] 03-15-2024 Albumin [Mass/Vol] 4.1 g/dL Normal 3.5-5.0 [facility] Comment on above: Performed By: #### L [id number], [id number], [id number], [id number], LAB17 ####Choral Director: MESERET PAULA ([phone])[facility] ([facility])[address] [place] [address] ALP [Catalytic activity/Vol] 126 U/L Normal 38-126 [facility] Comment on above: Performed By: #### L [id number], [id number], [id number], [id number], LAB17 ####Choral Director: MESERET PAULA ([id number])[facility] ([facility])[address] [place] [address] ALT [Catalytic activity/Vol] 52 U/L High 0-34 [facility] Comment on above: Performed By: #### L [id number], [id number], [id number], [id number], LAB17 ####Choral Director: MESERET PAULA ([id number])[facility] ([facility])[address] [place] [address] Anion gap [Moles/Vol] 6 mmol/L Normal 3-13 [facility] Comment on above: Performed By: #### L [id number], [id number], [id number], IRW618, LAB17 ####Choral Director: MESERET PAULA ([id number])[facility] ([facility])[address] [place] [address] AST [Catalytic activity/Vol] 205 U/L High 15-46 [facility] Comment on above: Performed By: #### L [id number], [id number], [id number], [id number], LAB17 ####Choral Director: MESERET PAULA ([id number])[facility] ([facility])[address] [place] [address] Bilirubin [Mass/Vol] 0.8 mg/dL Normal 0.2-1.3 [facility] Comment on above: Performed By: #### L [id number], [id number], [id number], VBO568, LAB17 ####Choral Director: MESERET PAULA ([id number])[facility])[address] [place] [address] Calcium [Mass/Vol] 9.6 mg/dL Normal 8.4-10.4 [facility] Comment on above: Performed By: #### L [id number], [id number], [id number], ZNP746, LAB17 ####Choral Director: MESERET PAULA ([id number])[facility])[address] [place] [address] Chloride [Moles/Vol] 102 mmol/L Normal 98-107 [facility] [place] [facility] Comment on above: Performed By: #### L [id number], [id number], [id number], [id number], LAB17 ####Choral Director: MESERET PAULA ([id number])[facility] ([facility])[address] [place] [address] CO2 [Moles/Vol] 29 mmol/L Normal 22-30 [facility] Comment on above: Performed By: #### L [id number], [id number], [id number], TXL805, LAB17 ####Choral Director: MESERET PAULA ([id number])[facility] ([facility])[address] [place] [address] Creatinine [Mass/Vol] 0.96 mg/dL Normal 0.52-1.04 [facility] Comment on above: Performed By: #### L [id number], [id number], [id number], [id number], LAB17 ####Choral Director: MESERET PAULA ([id number])[facility] ([facility])[address] [place] [address] GLOMERULAR FILTRATION RATE ML/MIN/1.73 SQ M.PREDICTED 71.3 mL/min/1.73m*2 Normal >60.0 [facility] Comment on above: Result Comment: Calc ulation based on the Chronic Kidney Disease Epidemiology Collaboration (CKD-EPI) equation refit without adjustment for race Performed By: #### L [id number], [id number], [id number], ALQ190, LAB17 ####Choral Director: MESERET PAULA ([phone])[facility] ([facility])[address] [place] [address] Glucose [Mass/Vol] 152 mg/dL High 70-100 [facility] Comment on above: Performed By: #### L [id number], [id number], [id number], FKU766, LAB17 ####Choral Director: MESERET PAULA ([id number])[facility] ([facility])[address] [place] [address] Potassium [Moles/Vol] 4.1 mmol/L Normal 3.5-5.1 [facility] Comment on above: Performed By: #### L AB106, [id number], [id number], NLA345, LAB17 ####Choral Director: MESERET PAULA ([phone])[facility] ([facility])[address] [place] [address] Protein [Mass/Vol] 8.0 g/dL Normal 6.3-8.2 [facility] Comment on above: Performed By: #### L [id number], [id number], [id number], XUC634, LAB17 ####Choral Director: MESERET PAULA ([id number])[facility] ([facility])[address] [place] [address] Sodium [Moles/Vol] 137 mmol/L Normal 135-145 [facility] Comment on above: Performed By: #### L [id number], [id number], [id number], NDW068, LAB17 ####Choral Director: MESERET PAULA ([id number])[facility] ([facility])[address] [place] [address] Urea nitrogen [Mass/Vol] 19 mg/dL High 7-17 [facility] Comment on above: Performed By: #### L [id number], [id number], [id number], OWP137, LAB17 ####Choral Director: MESERET PAULA ([id number])[facility])[address] [place] [address] Comprehensive metabolic 1998 panelon 03-15-2024 Albumin [Mass/Vol] 4.1 g/dL 3.5 - 5.0 g/dL [facility] ALP [Catalytic activity/Vol] 126 U/L 38 - 126 U/L [facility] ALT [Catalytic activity/Vol] 52 U/L High 0 - 34 U/L [facility] Anion gap [Moles/Vol] 6 mmol/L 3 - 13 mmol/L [facility] AST [Catalytic activity/Vol] 205 U/L High 15 - 46 U/L [facility] Bilirubin [Mass/Vol] 0.8 mg/dL 0.2 - 1 .3 mg/dL [facility] Calcium [Mass/Vol] 9.6 mg/dL 8.4 - 10. 4 mg/dL [facility] Chloride [Moles/Vol] 102 mmol/L 98 - 10 7 mmol/L [facility] CO2 [Moles/Vol] 29 mmol/L 22 - 30 mmol/L [facility] Creatinine [Mass/Vol] 0.96 mg/dL 0.52 - 1.04 mg/dL [facility] GFR/1.73 sq M.predicted MDRD (S/P/Bld) [Vol rate/Area] 71.3 mL/min/{1.73_m2} - PINF [facility] Glucose [Mass/Vol] 152 mg/dL High 70 - 100 mg/dL [facility] Interpretation and review of laboratory results Abnormal [facility] Potassium [Moles/Vol] 4.1 mmol/L 3.5 - 5.1 mmol/L [facility] Protein [Mass/Vol] 8.0 g/dL 6.3 - 8.2 g/dL [facility] Sodium [Moles/Vol] 137 mmol/L 135 - 145 mmol/L [facility] Urea nitrogen [Mass/Vol] 19 mg/dL High 7 - 17 mg/dL [facility] LIPOPROTEIN A (LPA)on 2023 Lipoprotein a [Mass/Vol] 19 mg/dL Normal <=29 [facility] Comment on above: Result Comment: Perf ormed By: [facility] [place], [place] [address]Laboratory Director: Shine Hinton MD, PhDCLIA Number: [id number] Performed By: #### L [id number] ####[facility] ([facility])[address] [place] [id number] [place] [address] Laboratory - Chemistry and C hemistry - challengeOrdered By: Lisset Rodriguez on 03-15-2024 Troponin I.cardiac [Mass/Vol] 32.700 ng/mL Critically high NINF - 0.034 ng/mL [facility] Laboratory - Chemistry and C hemistry - challengeon 03-15-2024 Magnesium [Mass/Vol] 1.8 mg/dL 1.6 - 2 .3 mg/dL [facility] Glucose [Mass/Vol] 149 mg/dL High 70 - 100 mg/dL [facility] MAGNESIUMon 03-15-2024 Magnesium [Mass/Vol] 1.8 mg/dL Normal 1.6-2.3 [facility] [place] [facility] Comment on above: Performed By: #### L AB106, [id number], APH125, HIO123, LAB17 ####Choral Director: MESERET PAULA ([phone])[facility])[address] [place] [address] NT PRO BNPon 03-15-2024 Natriuretic peptide B (Bld) [Mass/Vol] 3160 pg/mL High <125 [facility] Comment on above: Performed By: #### Yumiko AB106, [id number], [id number], ZWC499, LAB17 ####Choral Director: MESERET PAULA ([id number])[facility] ([facility])[address] [place] [address] [place] Natriuretic peptide B [Mass/ Vol]on 03-15-2024 Interpretation and review of laboratory results Abnormal [facility] Natriuretic peptide B (Bld) [Mass/Vol] 3160 pg/mL High NINF - 125 pg/mL [facility] No Panel Informationon 03-15 Interpretation and review of laboratory results Normal [facility] Interpretation and review of laboratory results Abnormal [facility] PHOSPHORUSon 03-15-2024 Phosphate [Mass/Vol] 4.4 mg/dL Normal 2.5-4.5 [facility] [place] [facility] Comment on above: Performed By: #### L AB106, [id number], [id number], [id number], LAB17 ####Choral Director: MESERET PAULA ([id number])[facility] ([facility])[address] [place] [address] [place] Phosphate [Moles/Vol]on 02-24 Phosphate [Mass/Vol] 4.4 mg/dL 2.5 - 4 .5 mg/dL [facility] TROPONIN, WITH SERIAL REFLEX on 03-15-2024 Troponin I.cardiac [Mass/Vol] 32.700 ng/mL Critically high <0.034 [facility] Comment on above: Result Comment: MARY Minor COMMENTS:Patients with high levels of Biotin oral intake (ie >5 mg/day) may have falsely decreased Troponin levels. Performed By: #### L AB106, [id number], [id number], AST024, LAB17 ####Choral Director: MESERET PAULA ([id number])[facility] ([facility])[address] [place] [address] Troponin I.cardiac [Mass/Vol ]Ordered By: Lisset Rodriguez on 03-15-2024 Interpretation and review of laboratory results Abnormal [facility] XR CHEST 1 VIEWon 03-15-2024 XR CHEST 1 VIEW Normal [facility] XR Chest Single viewon 03-15 [facility] Radiology Study observation (narrative) [facility] XR Chest Single viewOrdered By: Jordan Davies on 03-15-2024 [facility] Work Phone: aPTT Coag (Bld) [Time]on aPTT Coag (PPP) [Time] 22.2 s 20.0 - 30.5 s [facility] Interpretation and review of laboratory results Normal [facility] Absolute lymphocyte countOrd ered By: ED PROVIDER on 09-16-2023 Lymphocytes Auto (Unsp spec) [#/Vol] 3.70 10*3/uL 0.83-4.51 [facility] Basophil percentageOrdered B y: Yaniv Tarango on 09-16-2023 Basophil percentage 5-10 SEEN /hpf 0-5 [facility] Bilirubin [Mass/Vol] 0.40 mg/dL 0.20-1.00 [facility] Comment on above: For patients on eltr ombopag therapy, use of Dimension [place] TBIL is not recommended. Chloride [Moles/Vol] 103 mmol/L 98-[address] [facility] Glucose [Mass/Vol] 482 mg/dL 74-106 [facility] Comment on above: Critical Result(s) C alled at: 07:05:01 09/16/2023 by: Jelani Oliver to Ashlie OVERTON (ER). Results read back by same.Glucose result greater than or equal to 200 mg/dLsuggests DIABETES MELLITUS per A.D.A. criteria. Potassium [Moles/Vol] 3.8 mmol/L 3.5-5.1 [facility] Comment on above: Slight Hemolysis, Re sult may be falsely increased. Protein [Mass/Vol] 9.1 g/dL 6.4-8.2 [facility] Sodium [Moles/Vol] 135 mmol/L 136-145 [facility] Basophil percentageOrdered B y: ED PROVIDER on 09-16-2023 Basophils/100 WBC (Bld) 0.5 % 0-1 [facility] Eosinophils/100 WBC (Bld) 0.9 % 0-5 [facility] Neutrophils (Bld) [#/Vol] 10.1 10*3/uL 2.0-7.7 [facility] Neutrophils/100 WBC (Bld) 66.2 % 47-70 [facility] WBC (Bld) [#/Vol] 15.2 10*3/uL 4.4-11.0 [facility] Bilirubin Test strip Ql (U)O rdered By: Yaniv Tarango on 09-16-2023 Bilirubin Ql (U) Negative Negative [facility] Blood erythrocytes count (nu mber/volume)Ordered By: ED PROVIDER on 09-16-2023 RBC (Bld) [#/Vol] 5.41 10*6/uL 4.2-5.4 [facility] Blood hemoglobin measurement (mass/volume)Ordered By: ED PROVIDER on 09-16-2023 Hemoglobin (Bld) [Mass/Vol] 16.4 g/dL 12.0-15.0 [facility] Blood lymphocytes/100 leukoc ytesOrdered By: ED PROVIDER on 09-16-2023 Lymphocytes/100 WBC (Bld) 24.3 % 19-41 [facility] Blood monocytes/100 leukocyt esOrdered By: ED PROVIDER on 09-16-2023 Monocytes/100 WBC (Bld) 7.6 % 0-10 [facility] Blood platelet mean volumeOr dered By: ED PROVIDER on 09-16-2023 Platelet mean volume (Bld) [Entitic vol] 12.4 fL 6.2-12.0 [facility] Determination of erythrocyte mean corpuscular volume (MCV)Ordered By: ED PROVIDER on 09-16-2023 MCV (RBC) [Entitic vol] 89.3 fL 81-99 [facility] Hematocrit Auto (Bld) [Volum e fraction]Ordered By: ED PROVIDER on 09-16-2023 Hematocrit (Bld) [Volume fraction] 48.3 % 37-47 [facility] Ketones Test strip Ql (U)Ord ered By: Yaniv Tarango on 09-16-2023 Ketones Ql (U) Negative Negative [facility] Laboratory - Chemistry and C hemistry - challengeOrdered By: Yaniv Tarango on 09-16-2023 ALP [Catalytic activity/Vol] 168 U/L 45-117 [facility] ALT [Catalytic activity/Vol] 19 U/L 13-56 [facility] CO2 [Moles/Vol] 25.0 mmol/L 21.0-32.0 [facility] Globulin (S) [Mass/Vol] 5.4 g/dL 2.2-4.2 [facility] Urea nitrogen/Creatinine [Mass ratio] 9.0 mg/mg 10-20 [facility] Laboratory - Hematology and Cell countsOrdered By: ED PROVIDER on 09-16-2023 Erythrocyte distribution width (RBC) [Entitic vol] 41.5 fL 35.1-43.9 [facility] Erythrocyte distribution width (RBC) [Ratio] 12.8 % 11.6-14.6 [facility] Immature granulocytes/100 WBC (Bld) 0.500 % 0.0-0.9 [facility] Comment on above: IG% - Immature Granu locytes (promyelocytes, myelocytes and metamyelocytes) > 1% indicates that a LEFT SHIFT is Present. MCH (RBC) [Entitic mass] 30.3 pg 27.0-32.0 [facility] Nucleated RBC/100 WBC (Bld) [Ratio] 0 % 0-5 [facility] MCHC Auto (RBC) [Mass/Vol]Or dered By: ED PROVIDER on 09-16-2023 MCHC (RBC) [Mass/Vol] 34.0 g/dL 32-36 [facility] Mucus LM Ql (Urine sed)Order ed By: Yaniv Tarango on 09-16-2023 Mucus Ql (Urine sed) 0 SEEN /hpf [facility] Nitrite Test strip Ql (U)Ord ered By: Yaniv Tarango on 09-16-2023 Nitrite Ql (U) Negative Negative [facility] No Panel InformationOrdered By: Yaniv Tarango on 09-16-2023 Estimated Creatinine Clearance Calc 34.90 ml/min [facility] Estimated GFR (MDRD) Amer 45 mL/min >60 [facility] Comment on above: GFR Calc Estimated GFR (MDRD) Non-Af Amer 37 mL/min >60 [facility] Comment on above: Non- GFR Calc Platelets bldOrdered By: ED PROVIDER on 09-16-2023 Platelets (Bld) [#/Vol] 274 10*3/uL 150-450 [facility] Protein Test strip Ql (U)Ord ered By: Yaniv Tarango on 09-16-2023 Protein Ql (U) 100 mg/dl Negative [facility] Serum or plasma albumin mark urement (mass/volume)Ordered By: Yaniv Tarango on 09-16-2023 Albumin [Mass/Vol] 3.7 g/dL 3.2-5.0 [facility] Serum or plasma albumin/glob ulin mass ratioOrdered By: Yaniv Tarango on 09-16-2023 Albumin/Globulin [Mass ratio] 0.7 {ratio} 0.9-2.4 [facility] Serum or plasma calcium mark urement (mass/volume)Ordered By: Yaniv Tarango on 09-16-2023 Calcium [Mass/Vol] 9.1 mg/dL 8.5-10.1 [facility] Serum or plasma creatinine m easurement (mass/volume)Ordered By: Yaniv Tarango on 09-16-2023 Creatinine [Mass/Vol] 1.56 mg/dL 0.55-1.02 [facility] Comment on above: The validity of the calculated GFR & GFRAA in patients over 70 years has not been determined. Clinical correlation is essential. Serum or plasma urea nitroge n measurement (mass/volume)Ordered By: Yaniv Tarango on 09-16-2023 Urea nitrogen [Mass/Vol] 14 mg/dL 7-18 [facility] Squamous epithelial cells de tection in urine sediment by light microscopyOrdered By: Yaniv Tarango on 09-16-2023 Epithelial cells.squamous LM Ql (Urine sed) 0-5 SEEN /hpf 5-10 [facility] Thin prep Papanicolaou smear with manual screeningOrdered By: Yaniv Tarango on 09-16-2023 Thin prep Papanicolaou smear with manual screening 13 U/L 15-37 [facility] Comment on above: Slight Hemolysis, Re sult may be falsely increased. Thin prep Papanicolaou smear with manual screening 7 5-15 [facility] Urine blood detectionOrdered By: Yaniv Tarango on 09-16-2023 RBC Ql (U) 10 /ul Negative [facility] RBC Ql (U) 0 SEEN /hpf 0-5 [facility] Urine clarityOrdered By: Trudy Tarango on 09-16-2023 Clarity (U) Sl. Cloudy Clear [facility] Urine color determinationOrd ered By: Yaniv Tarango on 09-16-2023 Color (U) Yellow Yellow [facility] Urine glucose detectionOrder ed By: Yaniv Tarango on 09-16-2023 Glucose Ql (U) 1000 mg/dl Normal [facility] Urine leukocyte esterase det ection by dipstickOrdered By: Yaniv Tarango on 09-16-2023 Leukocyte esterase Test strip Ql (U) Negative Negative [facility] Urine pHOrdered By: Yaniv gloria on 09-16-2023 pH (U) 6.0 [pH] 5.0 - 8.0 [facility] Urine sediment bacteria coun t by microscopy (number/high power field)Ordered By: Yaniv Tarango on 09-16-2023 Bacteria LM.HPF (Urine sed) [#/Area] 0 /[HPF] None Seen [facility] Urine specific gravity measu rementOrdered By: Yaniv Tarango on 09-16-2023 Specific gravity (U) [Rel density] 1.020 1.002-1.030 [facility] Urobilinogen Auto test strip Ql (U)Ordered By: Yaniv Tarango on 09-16-2023 Urobilinogen Ql (U) Normal mg/dl Normal [facility] Basophil percentageOrdered B y: Elmer Gomes on 09-14-2023 Basophil percentage 50-100 SEEN /hpf 0-5 [facility] Bilirubin Test strip Ql (U)O rdered By: Elmer Gomes on 09-14-2023 Bilirubin Ql (U) Negative Negative [facility] Ketones Test strip Ql (U)Ord ered By: Elmer Gomes on 09-14-2023 Ketones Ql (U) Negative Negative [facility] Mucus LM Ql (Urine sed)Order ed By: Elmer Gomes on 09-14-2023 Mucus Ql (Urine sed) 0 SEEN /hpf [facility] Nitrite Test strip Ql (U)Ord ered By: Elmer Gomes on 09-14-2023 Nitrite Ql (U) Positive Negative [facility] Protein Test strip Ql (U)Ord ered By: Elmer Gmoes on 09-14-2023 Protein Ql (U) 100 mg/dl Negative [facility] Squamous epithelial cells de tection in urine sediment by light microscopyOrdered By: Elmer Gomes on 09-14-2023 Epithelial cells.squamous LM Ql (Urine sed) 0-5 SEEN /hpf 5-10 [facility] Urine blood detectionOrdered By: Elmer Gomes on 09-14-2023 RBC Ql (U) 250 /ul Negative [facility] RBC Ql (U) > 100 SEEN /hpf 0-5 [facility] Urine clarityOrdered By: Lucie Gomes on 09-14-2023 Clarity (U) Cloudy Clear [facility] Urine color determinationOrd ered By: Elmer Gomes on 09-14-2023 Color (U) Yellow Yellow [facility] Urine glucose detectionOrder ed By: Elmer Gomes on 09-14-2023 Glucose Ql (U) 1000 mg/dl Normal [facility] Urine leukocyte esterase det ection by dipstickOrdered By: Elmer Gomes on 09-14-2023 Leukocyte esterase Test strip Ql (U) 500 /ul Negative [facility] Urine pHOrdered By: Elmer grier on 09-14-2023 pH (U) 6.0 [pH] 5.0 - 8.0 [facility] Urine sediment bacteria coun t by microscopy (number/high power field)Ordered By: Elmer Gomes on 09-14-2023 Bacteria LM.HPF (Urine sed) [#/Area] 1 /[HPF] None Seen [facility] Urine specific gravity measu rementOrdered By: Elmer Gomes on 09-14-2023 Specific gravity (U) [Rel density] 1.015 1.002-1.030 [facility] Urobilinogen Auto test strip Ql (U)Ordered By: Elmer Gomes on 09-14-2023 Urobilinogen Ql (U) Normal mg/dl Normal [facility] CT Lung Screen (Annual/Basel ine)on 12-16-2022 6 mm low-density nodule lateral right upper lobe. Although felt to be stable from a CTA examination from March 2022, recommend six-month follow-up noncontrast chest CT LUNG RADS: Lung-RADS 3 - Probably Benign (v2022) Management: 6 month LDCT RECOMMENDATIONS: If you would like to register your patient with the [facility] Lung Nodule/Lung Cancer Screening Program, please contact the Nurse Navigator at . [facility] EXAMINATION: LOW DOSE SCREENING CT OF [...] visualized osseous structures without focal destructive lesion. [facility] Tyron Gale MD - 12/16/2022 EXAMINATION: [...] like to register your patient with the [facility] Lung Nodule/Lung Cancer Screening Program, please contact the Nurse Navigator at . [employer] Phone: Radiology Study observation (narrative) ZEALERJanette [employer] Phone: CT Lung Screen (Annual/Basel ine)Ordered By: Tyron Gale on 12-16-2022 [employer] Phone: Basic Metabolic Panelon 03-25 Anion gap [Moles/Vol] 12 mmol/L [facility] [employer] Calcium [Mass/Vol] 9.2 mg/dL 8.5 - 9.9 mg/dL [facility] Chloride [Moles/Vol] 98 mmol/L [employer] CO2 [Moles/Vol] 26 mmol/L [employer] Creatinine [Mass/Vol] 0.82 mg/dL 0.50 - 0.90 mg/dL [facility] GFR >60.0 >60 [facility] Comment on above: >60 mL/min/1.73m2 EG FR, calc. for ages 18 and older using the MDRD formula (not corrected for weight), is valid for stable renal function. GFR Non- >60.0 >60 [employer] Comment on above: >60 mL/min/1.73m2 EG FR, calc. for ages 18 and older using the MDRD formula (not corrected for weight), is valid for stable renal function. Glucose [Mass/Vol] 181 mg/dL High 70 - 99 mg/dL [facility] Interpretation and review of laboratory results Abnormal [facility] Potassium [Moles/Vol] 4.2 mmol/L [facility] Sodium [Moles/Vol] 136 mmol/L [facility] Urea nitrogen (BldV) [Mass/Vol] 22 mg/dL High 6 - 20 mg/dL [facility] CBC with Auto Differentialon 04-06-2022 Basophils (Bld) [#/Vol] 0.2 10*3/uL 0.0 - 0.2 K/uL [facility] Basophils/100 WBC (Bld) 1.5 % [facility] Eosinophils (Bld) [#/Vol] 0.2 10*3/uL 0.0 - 0.7 K/uL [facility] Eosinophils/100 WBC (Bld) 2.1 % [facility] Hematocrit (Bld) [Volume fraction] 45.9 % 37.0 - 47.0 % [facility] Hemoglobin (Bld) [Mass/Vol] 15.3 g/dL 12.0 - 16.0 g/dL [facility] Interpretation and review of laboratory results Abnormal [facility] Lymphocytes (Bld) [#/Vol] 3.3 10*3/uL 1.0 - 4.8 K/uL [facility] Lymphocytes/100 WBC (Bld) 32.2 % [facility] MCH (RBC) [Entitic mass] 31.3 pg 27.0 - 31.3 pg [facility] MCHC (RBC) [Mass/Vol] 33.4 % 33.0 - 37.0 % [facility] MCV (RBC) [Entitic vol] 93.8 fL 82.0 - 100.0 fL [facility] Monocytes (Bld) [#/Vol] 1.1 10*3/uL High 0.2 - 0.8 K/uL [facility] Monocytes/100 WBC (Bld) 11.1 % [facility] Neutrophils Absolute 5.4 K/uL 1.4 - 6 .5 K/uL [facility] Neutrophils/100 WBC (Bld) 53.1 % [facility] Platelet distribution width (Bld) [Ratio] 14.6 % High 11.5 - 14.5 % [facility] Platelets (Bld) [#/Vol] 181 10*3/uL 130 - 400 K/uL [facility] RBC (Bld) [#/Vol] 4.89 10*6/uL [facility] WBC (Bld) [#/Vol] 10.3 10*3/uL 4.8 - 10.8 K/uL [facility] Magnesiumon 04-06-2022 Magnesium [Mass/Vol] 2.0 mg/dL 1.7 - 2 .4 mg/dL [facility] No Panel Informationon 04-06 [facility] POCT Glucoseon 04-06-2022 Glucose [Mass/Vol] 247 mg/dL High 70 - 99 mg/dl [facility] Interpretation and review of laboratory results Abnormal [facility] Performed on ACCU-CHEK [facility] Comment on above: Notified RN or MD [facility] Glucose [Mass/Vol] 194 mg/dL High 70 - 99 mg/dl [facility] Interpretation and review of laboratory results Abnormal [facility] Performed on ACCU-CHEK [facility] Comment on above: Notified RN or MD Sliding Scale [facility] Basic Metabolic Panelon 03-25 Anion gap [Moles/Vol] 11 mmol/L [facility] Calcium [Mass/Vol] 8.8 mg/dL 8.5 - 9.9 mg/dL [facility] Chloride [Moles/Vol] 96 mmol/L [facility] CO2 [Moles/Vol] 28 mmol/L [facility] Creatinine [Mass/Vol] 0.86 mg/dL 0.50 - 0.90 mg/dL [facility] GFR >60.0 >60 [facility] Comment on above: >60 mL/min/1.73m2 EG FR, calc. for ages 18 and older using the MDRD formula (not corrected for weight), is valid for stable renal function. GFR Non- >60.0 >60 [facility] Comment on above: >60 mL/min/1.73m2 EG FR, calc. for ages 18 and older using the MDRD formula (not corrected for weight), is valid for stable renal function. Glucose [Mass/Vol] 175 mg/dL High 70 - 99 mg/dL [facility] Interpretation and review of laboratory results Abnormal [facility] Potassium [Moles/Vol] 3.5 mmol/L [facility] Sodium [Moles/Vol] 135 mmol/L [facility] Urea nitrogen (BldV) [Mass/Vol] 19 mg/dL 6 - 20 mg/dL [facility] CBCon 04-05-2022 Hematocrit (Bld) [Volume fraction] 42.8 % 37.0 - 47.0 % [facility] Hemoglobin (Bld) [Mass/Vol] 14.6 g/dL 12.0 - 16.0 g/dL [facility] Interpretation and review of laboratory results Abnormal [facility] MCH (RBC) [Entitic mass] 31.5 pg High 27.0 - 31.3 pg [facility] MCHC (RBC) [Mass/Vol] 34.0 % 33.0 - 37.0 % [facility] MCV (RBC) [Entitic vol] 92.7 fL 82.0 - 100.0 fL [facility] Platelet distribution width (Bld) [Ratio] 14.6 % High 11.5 - 14.5 % [facility] Platelets (Bld) [#/Vol] 180 10*3/uL 130 - 400 K/uL [facility] RBC (Bld) [#/Vol] 4.62 10*6/uL [facility] WBC (Bld) [#/Vol] 10.4 10*3/uL 4.8 - 10.8 K/uL [facility] EKG 12 Leadon 04-05-2022 Atrial Rate 81 BPM [facility] Work Phone: P [place] 62 degrees [facility] Work Phone: P-R Interval 150 ms [employer] [employer] Work Phone: Q-T Interval 428 ms [employer] Work Phone: QRS Duration 100 ms [employer] Work Phone: QTc Calculation (Bazett) 497 ms [employer] Work Phone: R [place] -15 degrees [employer] Work Phone: T [place] 71 degrees [employer] Work Phone: Ventricular Rate 81 BPM [facility]ette [facility] Work Phone: Normal sinus rhythm Prolonged QT Abnormal ECG When compared with ECG of 03-APR-2022 17:25, T wave inversion no longer evident in Inferior leads T wave inversion no longer evident in Anterolateral leads QT has shortened Confirmed by Callum Esquivel ([id number]) on 04/05/2022 7:29:41 AM [facility] Result, Unknown Provider - 04/05/2022 Normal sinus rhythm Prolonged QT Abnormal ECG When compared with ECG of 03-APR-2022 17:25, T wave inversion no longer evident in Inferior leads T wave inversion no longer evident in Anterolateral leads QT has shortened Confirmed by Callum Esquivel ([id number]) on 04/05/2022 7:29:41 AM [employer] Work Phone: [employer] Work Phone: POCT Glucoseon 04-05-2022 Glucose [Mass/Vol] 156 mg/dL High 70 - 99 mg/dl [facility] Interpretation and review of laboratory results Abnormal [facility] [facility] Performed on ACCU-CHEK [employer] Comment on above: Notified RN or MD [employer] [facility] Glucose [Mass/Vol] 174 mg/dL High 70 - 99 mg/dl [facility] Interpretation and review of laboratory results Abnormal [employer] Performed on ACCU-CHEK [employer] Glucose [Mass/Vol] 361 mg/dL High 70 - 99 mg/dl [facility] Interpretation and review of laboratory results Abnormal [facility] Performed on ACCU-CHEK [facility] Glucose [Mass/Vol] 154 mg/dL High 70 - 99 mg/dl [facility] Interpretation and review of laboratory results Abnormal [facility] Performed on ACCU-CHEK [facility] Brain Natriuretic Peptideon 04-04-2022 Natriuretic peptide B (Bld) [Mass/Vol] 4169 pg/mL [facility] Comment on above: NT-pro BNP ACUTE Int [...] [#/Vol] 0.0 10*3/uL 0.0 - 0.2 K/uL [facility] Basophils/100 WBC (Bld) 0.7 % B [facility] Eosinophils (Bld) [#/Vol] 0.0 10*3/uL 0.0 - 0.7 K/uL [facility] Eosinophils/100 WBC (Bld) 0.2 % [facility] Hematocrit (Bld) [Volume fraction] 41.4 % 37.0 - 47.0 % [facility] Hemoglobin (Bld) [Mass/Vol] 14.1 g/dL 12.0 - 16.0 g/dL [facility] Interpretation and review of laboratory results Abnormal [facility] Lymphocytes (Bld) [#/Vol] 2.8 10*3/uL 1.0 - 4.8 K/uL [facility] Lymphocytes/100 WBC (Bld) 16.0 % [facility] MCH (RBC) [Entitic mass] 31.8 pg High 27.0 - 31.3 pg [facility] MCHC (RBC) [Mass/Vol] 34.1 % 33.0 - 37.0 % [facility] MCV (RBC) [Entitic vol] 93.1 fL 82.0 - 100.0 fL [facility] Monocytes (Bld) [#/Vol] 1.2 10*3/uL High 0.2 - 0.8 K/uL [facility] Monocytes/100 WBC (Bld) 6.6 % [facility] Neutrophils Absolute 13.3 K/uL High 1.4 - 6 .5 K/uL [facility] Neutrophils/100 WBC (Bld) 76.0 % [facility] Plasma Cells Relative 1 % [facility] Platelet distribution width (Bld) [Ratio] 14.5 % 11.5 - 14.5 % [facility] PLATELET SLIDE REVIEW Normal [facility] Platelets (Bld) [#/Vol] 197 10*3/uL 130 - 400 K/uL [facility] RBC (Bld) [#/Vol] 4.44 10*6/uL [facility] RBC (Bld) [#/Vol] Normal [facility] WBC (Bld) [#/Vol] 17.5 10*3/uL High 4.8 - 10.8 K/uL [facility] Comprehensive Metabolic Pane l w/ Reflex to MGon 04-04-2022 Albumin [Mass/Vol] 3.8 g/dL 3.5 - 4.6 g/dL [facility] ALP (Bld) [Catalytic activity/Vol] 101 U/L 40 - 130 U/L [facility] ALT [Catalytic activity/Vol] 21 U/L 0 - 33 U/L [facility] Anion gap [Moles/Vol] 17 mmol/L High [facility] AST [Catalytic activity/Vol] 22 U/L 0 - 35 U/L [facility] Comment on above: Specimen hemolysis h as exceeded the interference as defined by [place]. Value may be falsely increased. Suggest recollection if clinically indicated. Bilirubin [Mass/Vol] 1.0 mg/dL High 0.2 - 0 .7 mg/dL [facility] Calcium [Mass/Vol] 9.2 mg/dL 8.5 - 9.9 mg/dL [facility] Chloride [Moles/Vol] 95 mmol/L [facility] CO2 [Moles/Vol] 25 mmol/L [facility] Creatinine [Mass/Vol] 0.89 mg/dL 0.50 - 0.90 mg/dL [facility] Free PSA/Total PSA [Mass fraction] 7.2 g/dL 6.3 - 8.0 g/dL [facility] GFR >60.0 >60 [facility] Comment on above: >60 mL/min/1.73m2 EG FR, calc. for ages 18 and older using the MDRD formula (not corrected for weight), is valid for stable renal function. GFR Non- >60.0 >60 [facility] Comment on above: >60 mL/min/1.73m2 EG FR, calc. for ages 18 and older using the MDRD formula (not corrected for weight), is valid for stable renal function. Globulin (S) [Mass/Vol] 3.4 g/dL 2.3 - 3.5 g/dL [facility] Glucose [Mass/Vol] 247 mg/dL High 70 - 99 mg/dL [facility] Interpretation and review of laboratory results Abnormal [facility] Potassium reflex Magnesium 3.3 Low [facility] Sodium [Moles/Vol] 137 mmol/L [facility] Urea nitrogen (BldV) [Mass/Vol] 24 mg/dL High 6 - 20 mg/dL [facility] ECHO Complete 2D W Doppler W Coloron 04-04-2022 Transthoracic Echocardiography Report (TTE) Demographics Patient Name ELIZ TREJO Gender Female R Patient Number [id number] Race Ethnicity Visit Number [id number] Room Number W184 Corporate ID Date of Study 04/04/2022 Referring Physician Number Date of 1970 Medical Review Coordinator Quita Del Toro Age 51 year(s) Interpreting [facility] Physician Cardiology Jean-Paul Klein MD Procedure Type [...] ELIZ TREJO Gender Female R Patient Number [id number] Race Ethnicity Visit Number [id number] Room Number W184 Corporate ID Date of Study 04/04/2022 Referring Physician Number Date of 1970 Medical Review Coordinator Quita Del Toro Age 51 year(s) Interpreting [facility] Physician Cardiology Jean-Paul Klein MD Procedure Type [...] Root: 2.82 cm LVOT Diameter: 1.98 cm [employer] [employer] Work Phone: [employer] Work Phone: EKG 12 LeadOrdered By: Dean Pal on 04-04-2022 Atrial Rate 109 BPM [facility] Work Phone: P [place] 61 degrees [facility] Work Phone: P-R Interval 138 ms [employer] Work Phone: Q-T Interval 374 ms [employer] Work Phone: QRS Duration 86 ms [employer] Work Phone: [phone] QTc Calculation (Bazett) 503 ms [employer] [employer] Work Phone: R [place] -16 degrees [employer] [employer] Work Phone: T [place] 60 degrees [employer] Work Phone: Ventricular Rate 109 BPM [facility] [employer] Work Phone: [employer] Work Phone: EKG 12 Leadon 04-04-2022 Sinus tachycardia Otherwise normal ECG No previous ECGs available Confirmed by GHADA PAL ([id number]) on 04/04/2022 4:56:34 PM Ghada Bella MD - 04/04/2022 Sinus tachycardia Otherwise normal ECG No previous ECGs available Confirmed by GHADA PAL ([id number]) on 04/04/2022 4:56:34 PM [employer] Work Phone: Atrial Rate 101 BPM [facility] [employer] Work Phone: P [place] 68 degrees [employer] Work Phone: P-R Interval 160 ms [facility] [employer] Work Phone: Q-T Interval 430 ms [facility] [employer] Work Phone: QRS Duration 92 ms [facility] [employer] Work Phone: QTc Calculation (Bazett) 557 ms [facility] Work Phone: R [place] -22 degrees [facility] [employer] Work Phone: T [place] 224 degrees [facility] [employer] Work Phone: Ventricular Rate 101 BPM [facility] [employer] Work Phone: Sinus tachycardia T wave abnormality, consider inferior ischemia T wave abnormality, consider anterolateral ischemia Prolonged QT Abnormal ECG When compared with ECG of 03-APR-2022 05:14, T wave inversion now evident in Inferior leads T wave inversion now evident in Anterolateral leads Confirmed by GHADA PAL ([id number]) on 04/04/2022 9:34:57 AM Ghada Bella MD - 04/04/2022 Sinus tachycardia T wave abnormality, consider inferior ischemia T wave abnormality, consider anterolateral ischemia Prolonged QT Abnormal ECG When compared with ECG of 03-APR-2022 05:14, T wave inversion now evident in Inferior leads T wave inversion now evident in Anterolateral leads Confirmed by GHADA PAL ([id number]) on 04/04/2022 9:34:57 AM [facility] [employer] Work Phone: [facility] [employer] Work Phone: Magnesiumon 04-04-2022 Magnesium [Mass/Vol] 2.0 mg/dL 1.7 - 2 .4 mg/dL [facility] [employer] [facility] Microscopic Urinalysison Bacteria, UA Negative Negative /HPF [facility] Epithelial Cells, UA 3-5 [facility] Hyaline Casts, UA 0-1 [facility] Branch [facility] [employer] Interpretation and review of laboratory results Abnormal [facility] RBC, UA 0-2 [facility] Trichomonas, UA Present Abnormal None Seen /HPF [facility] WBC, UA 10-20 Abnormal [facility] No Panel Informationon 04-04 [facility] POCT Glucoseon 04-04-2022 Glucose [Mass/Vol] 238 mg/dL High 70 - 99 mg/dl [facility] Interpretation and review of laboratory results Abnormal [facility] Performed on ACCU-CHEK [facility] Glucose [Mass/Vol] 161 mg/dL High 70 - 99 mg/dl [facility] Interpretation and review of laboratory results Abnormal [facility] Performed on ACCU-CHEK [facility] Glucose [Mass/Vol] 350 mg/dL High 70 - 99 mg/dl [facility] Interpretation and review of laboratory results Abnormal [facility] Performed on ACCU-CHEK [facility] Glucose [Mass/Vol] 218 mg/dL High 70 - 99 mg/dl [facility] Interpretation and review of laboratory results Abnormal [facility] Performed on ACCU-CHEK [facility] Procalcitoninon 04-04-2022 Procalcitonin 0.07 ng/mL 0.00 - 0.15 ng/mL [facility] Comment on above: Suspected Sepsis: Low likelihood [...] to determine the patient's Mortality Risk Prognosis ([email or web address]) In healthy neonates, plasma Procalcitonin (PCT) concentrations increase gradually after , reaching peak values at about 24 hours of age then decrease to normal values below 0.5 ng/mL by 48-72 hours of age. Collection has been rescheduled by PREEM at 04/04/2022 09:08 Reason: Patient in [facility] Urinalysison 04-04-2022 Bilirubin Urine Negative Negative [facility] Blood, Urine Negative Negative [facility] Clarity, UA Clear Clear [facility] Color, UA Yellow Straw/Yellow [facility] Glucose, Ur 100 mg/dL Abnormal Negative [facility] Interpretation and review of laboratory results Abnormal [facility] Ketones Ql (U) Negative Negative mg/dL [facility] Leukocyte esterase Test strip Ql (U) SMALL Abnormal Negative [facility] Nitrite, Urine Negative Negative [facility] pH, UA 5.5 [facility] Protein, UA Negative Negative mg/dL [facility] Specific [place], UA 1.012 [facility] Urobilinogen, Urine 1.0 <2.0 E.U./dL [facility] APTTon 04-03-2022 aPTT Coag (Bld) [Time] 27.5 s [facility] Comment on above: Effective 07/29/2020: Heparin Therapeutic Range: 64.0 98.0 seconds. Brain Natriuretic Peptideon 04-03-2022 Natriuretic peptide B (Bld) [Mass/Vol] 4734 pg/mL [facility] Comment on above: NT-pro BNP ACUTE Int [...] [#/Vol] 0.1 10*3/uL 0.0 - 0.2 K/uL [facility] Basophils/100 WBC (Bld) 1.1 % [facility] Eosinophils (Bld) [#/Vol] 0.2 10*3/uL 0.0 - 0.7 K/uL [facility] Eosinophils/100 WBC (Bld) 1.8 % [facility] Hematocrit (Bld) [Volume fraction] 43.0 % 37.0 - 47.0 % [facility] Hemoglobin (Bld) [Mass/Vol] 14.7 g/dL 12.0 - 16.0 g/dL [facility] Interpretation and review of laboratory results Abnormal [facility] Lymphocytes (Bld) [#/Vol] 3.0 10*3/uL 1.0 - 4.8 K/uL [facility] Lymphocytes/100 WBC (Bld) 32.5 % [facility] MCH (RBC) [Entitic mass] 31.5 pg High 27.0 - 31.3 pg [facility] MCHC (RBC) [Mass/Vol] 34.2 % 33.0 - 37.0 % [facility] MCV (RBC) [Entitic vol] 92.1 fL 82.0 - 100.0 fL [facility] Monocytes (Bld) [#/Vol] 0.8 10*3/uL 0.2 - 0.8 K/uL [facility] Monocytes/100 WBC (Bld) 8.7 % [facility] Neutrophils Absolute 5.1 K/uL 1.4 - 6 .5 K/uL [facility] Neutrophils/100 WBC (Bld) 55.9 % [facility] Platelet distribution width (Bld) [Ratio] 14.4 % 11.5 - 14.5 % [facility] Platelets (Bld) [#/Vol] 162 10*3/uL 130 - 400 K/uL [facility] RBC (Bld) [#/Vol] 4.67 10*6/uL [facility] WBC (Bld) [#/Vol] 9.2 10*3/uL 4.8 - 10.8 K/uL [facility] COVID-19, Rapidon 04-03-2022 SARS-CoV-2 (COVID-19) RNA SHAI+probe Ql (Unsp spec) Not detected Not Detected [facility] Comment on above: Rapid NAAT: Negative results [...] authorized laboratories. Fact sheet for Healthcare Providers: https://www.fda.gov/media/339120/download Fact sheet for Patients: https://www.fda.gov/media/009296/download METHODOLOGY: Isothermal Nucleic Acid Amplification [facility] CTA CHEST W WO CONTRASTon NO EVIDENCE OF PULMONARY EMBOLI. FINDINGS CONSISTENT WITH MILD CARDIAC DECOMPENSATION WITH A SMALL RIGHT PLEURAL EFFUSION. ATYPICAL PNEUMONIA SHOULD BE EXCLUDED CLINICALLY. [facility] CTA CHEST W WO CONTRAST: 04/03/2022 [...] images of the upper abdomen are noncontributory. [facility] Michael Fraga MD - 04/03/2022 CTA [...] EFFUSION. ATYPICAL PNEUMONIA SHOULD BE EXCLUDED CLINICALLY. [employer] Work Phone: [employer] Work Phone: Radiology Study observation (narrative) [employer] Work Phone: Comprehensive Metabolic Pane l w/ Reflex to MGon 04-03-2022 Albumin [Mass/Vol] 4.3 g/dL 3.5 - 4.6 g/dL [employer] ALP (Bld) [Catalytic activity/Vol] 102 U/L 40 - 130 U/L [facility] [employer] ALT [Catalytic activity/Vol] 27 U/L 0 - 33 U/L [facility] Anion gap [Moles/Vol] 13 mmol/L [facility] AST [Catalytic activity/Vol] 22 U/L 0 - 35 U/L [facility] Bilirubin [Mass/Vol] 0.7 mg/dL 0.2 - 0 .7 mg/dL [facility] Calcium [Mass/Vol] 9.0 mg/dL 8.5 - 9.9 mg/dL [facility] Chloride [Moles/Vol] 104 mmol/L [facility] CO2 [Moles/Vol] 22 mmol/L [facility] Creatinine [Mass/Vol] 0.78 mg/dL 0.50 - 0.90 mg/dL [facility] Free PSA/Total PSA [Mass fraction] 7.6 g/dL 6.3 - 8.0 g/dL [facility] GFR >60.0 >60 [facility] Comment on above: >60 mL/min/1.73m2 EG FR, calc. for ages 18 and older using the MDRD formula (not corrected for weight), is valid for stable renal function. GFR Non- >60.0 >60 [facility] Comment on above: >60 mL/min/1.73m2 EG FR, calc. for ages 18 and older using the MDRD formula (not corrected for weight), is valid for stable renal function. Globulin (S) [Mass/Vol] 3.3 g/dL 2.3 - 3.5 g/dL [facility] Glucose [Mass/Vol] 248 mg/dL High 70 - 99 mg/dL [facility] Interpretation and review of laboratory results Abnormal [facility] Potassium reflex Magnesium 4.1 [facility] Sodium [Moles/Vol] 139 mmol/L [facility] Urea nitrogen (BldV) [Mass/Vol] 13 mg/dL 6 - 20 mg/dL [facility] D-Dimer, Quantitativeon 07- D-Dimer, Quant 1.61 Critically high [facility] Comment on above: VTE (DVT or PE) cut- off = 0.50 mg/L [facility] Interpretation and review of laboratory results Abnormal [facility] CALL [facility] tel. [phone], Coag results called to and read back by /NI, 04/03/2022 06:14, by [facility] Hemoglobin A1con 04-03-2022 HbA1c (Bld) [Mass fraction] 10.0 % High 4.8 - 5.9 % [facility] Interpretation and review of laboratory results Abnormal [facility] No Panel Informationon 04-03 [facility] POCT Glucoseon 04-03-2022 Glucose [Mass/Vol] 299 mg/dL High 70 - 99 mg/dl [facility] Interpretation and review of laboratory results Abnormal [facility] Performed on ACCU-CHEK [facility] Glucose [Mass/Vol] 318 mg/dL High 70 - 99 mg/dl [facility] Interpretation and review of laboratory results Abnormal [facility] Performed on ACCU-CHEK [facility] Glucose [Mass/Vol] 366 mg/dL High 70 - 99 mg/dl [facility] Interpretation and review of laboratory results Abnormal [facility] Performed on ACCU-CHEK [facility] Procalcitoninon 04-03-2022 Procalcitonin 0.06 ng/mL 0.00 - 0.15 ng/mL [facility] Comment on above: Suspected Sepsis: Low likelihood [...] to determine the patient's Mortality Risk Prognosis ([email or web address]) In healthy neonates, plasma Procalcitonin (PCT) concentrations increase gradually after , reaching peak values at about 24 hours of age then decrease to normal values below 0.5 ng/mL by 48-72 hours of age. [facility] Protime-INRon 04-03-2022 INR Coag (Bld) [Relative time] 1.1 {INR} [facility] PT Coag (PPP) [Time] 14 s [facility] Rapid Influenza A/B Antigens on 04-03-2022 Influenza A by PCR Negative [facility] Influenza B by PCR Negative [facility] Troponinon 04-03-2022 Troponin I.cardiac [Mass/Vol] ng/mL 0.000 - 0.010 ng/mL [facility] Comment on above: Methodology by Tropo bela T. [facility] Troponin I.cardiac [Mass/Vol] ng/mL 0.000 - 0.010 ng/mL [facility] Comment on above: Methodology by Tropo bela T. [facility] Troponin I.cardiac [Mass/Vol] ng/mL 0.000 - 0.010 ng/mL [facility] Comment on above: Methodology by Tropo bela T. US DUP LOWER EXTREMITIES JACKELIN ATERAL VENOUSon 04-03-2022 NO DVT IDENTIFIED IN EITHER LOWER EXTREMITY. [facility] US DUP LOWER EXTREMITIES BILATERAL VENOUS : 04/03/2022 CLINICAL HISTORY: Lower extremity swelling and shortness of breath. COMPARISON: 03/19/2015. Grayscale, compression, color and waveform Doppler analysis of both lower extremity deep venous systems was performed with augmentation. FINDINGS: There is no deep venous thrombosis, abnormal masses, fluid collections or other findings of concern identified within either lower extremity. [facility] Michael Fraga MD - 04/03/2022 US [...] NO DVT IDENTIFIED IN EITHER LOWER EXTREMITY. [facility] [employer] Phone: [facility] [employer] Phone: Radiology Study observation (narrative) [employer] Phone: XR CHEST PORTABLEon 04-03-20 22 BORDERLINE CARDIOMEGALY. NO OTHER EVIDENCE OF ACTIVE CARDIOPULMONARY DISEASE, BY PORTABLE CHEST RADIOGRAPHY. [facility] XR CHEST PORTABLE : 04/03/2022 CLINICAL HISTORY: PNA . COMPARISON: None available TECHNIQUE: A portable upright AP radiograph of the chest was obtained. FINDINGS: The heart is borderline enlarged, exaggerated by technique. There is no significant pulmonary infiltrate, sizable pleural effusion, vascular congestion, pneumothorax, or displaced fractures identified. [facility] Michael Fraga MD - 04/03/2022 XR [...] ACTIVE CARDIOPULMONARY DISEASE, BY PORTABLE CHEST RADIOGRAPHY. [facility] [employer] Phone: Radiology Study observation (narrative) [employer] Phone: XR CHEST PORTABLEOrdered By: Michael Fraga on 04-03-2022 [facility] Phone: .Auto Diffon 08-13-2021 Basophil, Absolute 0.10 10 3/mcL Normal 0.00-0.27 [facility] ([place]) Comment on above: Performed By: #### C BC, ADIFF, ANEU, LIP, CMP, GFR, PBNP, TROPHS #### [place] [address] [address] Basophils/100 WBC (Bld) 1.0 % Normal 0.0-2.5 [facility] ([place]) Comment on above: Performed By: #### C BC, ADIFF, ANEU, LIP, CMP, GFR, PBNP, TROPHS #### [address] [address] Eosinophil, Absolute 0.00 10 3/mcL Normal 0.00-0.65 [facility] ([place]) Comment on above: Performed By: #### C BC, ADIFF, ANEU, LIP, CMP, GFR, PBNP, TROPHS #### [address] [address] Eosinophils/100 WBC (Bld) 0.6 % Normal 0.0-6.0 [facility] ([place]) Comment on above: Performed By: #### C BC, ADIFF, ANEU, LIP, CMP, GFR, PBNP, TROPHS #### [address] [address] Lymphocyte, Absolute 1.70 10 3/mcL Normal 0.90-4.32 [facility] ([place]) Comment on above: Performed By: #### C BC, ADIFF, ANEU, LIP, CMP, GFR, PBNP, TROPHS #### [address] [address] Lymphocytes/100 WBC (Bld) 35.5 % Normal 20.0-40.0 [facility] ([place]) Comment on above: Performed By: #### C BC, ADIFF, ANEU, LIP, CMP, GFR, PBNP, TROPHS #### [address] [address] Monocyte, Absolute 0.90 10 3/mcL Normal 0.09-1.40 [facility] ([place]) Comment on above: Performed By: #### C BC, ADIFF, ANEU, LIP, CMP, GFR, PBNP, TROPHS #### [address] [address] Monocytes/100 WBC (Bld) 19.0 % High 2.0-13.0 [facility] ([place]) Comment on above: Performed By: #### C BC, ADIFF, ANEU, LIP, CMP, GFR, PBNP, TROPHS #### [address] [address] Neutrophils/100 WBC (Bld) 43.9 % Low 50.0-75.0 [facility] ([place]) Comment on above: Performed By: #### C BC, ADIFF, ANEU, LIP, CMP, GFR, PBNP, TROPHS #### [address] [address] .GFRon 08-13-2021 GFR >60 Normal [facility] ([place]) Comment on above: Result Comment: GFR Population [...] ANEU, LIP, CMP, GFR, PBNP, TROPHS #### [address] [address] GFR Non- >60 Normal [facility] ([place]) Comment on above: Result Comment: GFR Population [...] ANEU, LIP, CMP, GFR, PBNP, TROPHS #### [address] [address] .NEUABSon 08-13-2021 Neutrophil, Absolute 2.10 10 3/mcL Low 2.25-8.10 [facility] ([place]) Comment on above: Performed By: #### C BC, ADIFF, ANEU, LIP, CMP, GFR, PBNP, TROPHS #### [address] [address] BMPon 08-13-2021 BUN/Creatinine Ratio 21.1 ratio Normal 10.0-22.0 [facility] ([place]) Comment on above: Performed By: #### C BC, ADIFF, ANEU, LIP, CMP, GFR, PBNP, TROPHS #### [address] [address] Calcium [Mass/Vol] 8.6 mg/dL Normal 8.4-10.1 [facility] ([place]) Comment on above: Result Comment: No te - New Reference Range in effect 20 Performed By: #### C BC, ADIFF, ANEU, LIP, CMP, GFR, PBNP, TROPHS #### [address] [address] Chloride [Moles/Vol] 102 mmol/L Normal 98-110 [facility] ([place]) Comment on above: Performed By: #### C BC, ADIFF, ANEU, LIP, CMP, GFR, PBNP, TROPHS #### [address] [address] CO2 [Moles/Vol] 30 mmol/L Normal 22-32 [facility] ([place]) Comment on above: Performed By: #### C BC, ADIFF, ANEU, LIP, CMP, GFR, PBNP, TROPHS #### [address] [address] Creatinine [Mass/Vol] 0.90 mg/dL Normal 0.50-1.20 [facility] ([place]) Comment on above: Performed By: #### C BC, ADIFF, ANEU, LIP, CMP, GFR, PBNP, TROPHS #### [address] [address] Electrolyte Balance 6.0 mEq/L Normal 4.0-15.0 [facility] ([place]) Comment on above: Performed By: #### C BC, ADIFF, ANEU, LIP, CMP, GFR, PBNP, TROPHS #### [address] [address] Glucose [Mass/Vol] 139 mg/dL High 70-110 [facility] ([place]) Comment on above: Performed By: #### C BC, ADIFF, ANEU, LIP, CMP, GFR, PBNP, TROPHS #### [address] [address] Potassium [Moles/Vol] 3.9 mmol/L Normal 3.5-5.0 [facility] ([place]) Comment on above: Result Comment: Spec imen slightly hemolyzed. Results may be falsely elevated. Performed By: #### C BC, ADIFF, ANEU, LIP, CMP, GFR, PBNP, TROPHS #### [address] [address] Sodium [Moles/Vol] 138 mmol/L Normal 136-145 [facility] ([place]) Comment on above: Performed By: #### C BC, ADIFF, ANEU, LIP, CMP, GFR, PBNP, TROPHS #### [address] [address] Urea nitrogen [Mass/Vol] 19.0 mg/dL Normal 8.0-22.0 [facility] ([place]) Comment on above: Performed By: #### C BC, ADIFF, ANEU, LIP, CMP, GFR, PBNP, TROPHS #### [address] [address] CBCon 08-13-2021 Erythrocyte distribution width (RBC) [Ratio] 16.6 % High 11.5-15.5 [facility] ([place]) Comment on above: Performed By: #### C BC, ADIFF, ANEU, LIP, CMP, GFR, PBNP, TROPHS #### [address] [address] Hematocrit (Bld) [Volume fraction] 41.0 % Normal 34.0-46.0 [facility] ([place]) Comment on above: Performed By: #### C BC, ADIFF, ANEU, LIP, CMP, GFR, PBNP, TROPHS #### [address] [address] Hgb 13.5 G/dL Normal 12.0-16.0 [facility] ([place]) Comment on above: Performed By: #### C BC, ADIFF, ANEU, LIP, CMP, GFR, PBNP, TROPHS #### [address] [address] MCH (RBC) [Entitic mass] 30.0 pg Normal 27.0-33.0 [facility] ([place]) Comment on above: Performed By: #### C BC, ADIFF, ANEU, LIP, CMP, GFR, PBNP, TROPHS #### [address] [address] MCHC 32.9 G/dL Normal 32.0-36.0 [facility] ([place]) Comment on above: Performed By: #### C BC, ADIFF, ANEU, LIP, CMP, GFR, PBNP, TROPHS #### [place] [address] MCV (RBC) [Entitic vol] 91.2 fL Normal 80.0-99.0 [facility] ([place]) Comment on above: Performed By: #### C BC, ADIFF, ANEU, LIP, CMP, GFR, PBNP, TROPHS #### [place] [id number] Platelet 147 10 3/mcL Low 150-450 [facility] ([place]) Comment on above: Performed By: #### C BC, ADIFF, ANEU, LIP, CMP, GFR, PBNP, TROPHS #### [address] [address] Platelet mean volume (Bld) [Entitic vol] 11.2 fL High 6.6-10.5 [facility] ([place]) Comment on above: Performed By: #### C BC, ADIFF, ANEU, LIP, CMP, GFR, PBNP, TROPHS #### [place] [address] [place], [place] [address] RBC 4.49 10 6/mcL Normal 4.10-5.30 [facility] ([place]) Comment on above: Performed By: #### C BC, ADIFF, ANEU, LIP, CMP, GFR, PBNP, TROPHS #### [address] [address] WBC 4.90 10 3/mcL Normal 4.50-10.80 [facility] ([place]) Comment on above: Performed By: #### C BC, ADIFF, ANEU, LIP, CMP, GFR, PBNP, TROPHS #### [address] [address] LABORATORYOrdered By: Romy Carmona on 08-13-2021 Blood Glucose Testing Reason Routine (08/13/21 12:34 PM) [facility] Glucose [Mass/Vol] 198 mg/dL Invalid Interpretation Code 70 - 110 mg/dL [facility] Blood Glucose Testing Reason Routine (08/13/21 8:22 AM) [facility] Glucose [Mass/Vol] 144 mg/dL Invalid Interpretation Code 70 - 110 mg/dL [facility] LABORATORYOrdered By: SYSTEM SYSTEM on 08-13-2021 Base excess Calc (BldMV) [Moles/Vol] 6.0 mEq/L Invalid Interpretation Code 4.0 - 15.0 mEq/L AH ADM SS Basophils (Bld) [#/Vol] 0.10 103/mcL [...] Invalid Interpretation Code 0.0 - 6.0 % Remisol SS Erythrocyte distribution width (RBC) [Ratio] [...] Invalid Interpretation Code 34.0 - 46.0 % Remisol SS Hemoglobin (Bld) [Mass/Vol] 13.5 G/dL Invalid Interpretation Code 12.0 - 16.0 G/dL Remisol SS Lymphocytes (Bld) [#/Vol] 1.70 103/mcL Invalid Interpretation Code 0.90 - 4.32 10^3/mcL Remisol SS Lymphocytes/100 WBC (Bld) 35.5 % Invalid Interpretation Code 20.0 - 40.0 % Remisol SS Magnesium [Mass/Vol] 2.2 mg/dL Invalid [...] 08-13-2021 Magnesium [Mass/Vol] 2.2 mg/dL Normal 1.6-2.4 [facility] ([place]) Comment on above: Result Comment: Spec imen slightly hemolyzed. Results may be falsely elevated. Performed By: #### C BC, ADIFF, ANEU, LIP, CMP, GFR, PBNP, TROPHS #### [address] [address] .GFRon 08-12-2021 GFR >60 Normal [facility] ([place]) Comment on above: Result Comment: GFR Population [...] ANEU, LIP, CMP, GFR, PBNP, TROPHS #### [address] [address] GFR Non- 57 ml/min/1.73sqm Normal [facility] ([place]) Comment on above: Result Comment: GFR Population [...] ANEU, LIP, CMP, GFR, PBNP, TROPHS #### [address] [address] .Manual Diffon 08-12-2021 Basophil %, Manual 1.0 % Normal 0.0-2.5 [facility] ([place]) Comment on above: Performed By: #### C BC, ADIFF, ANEU, LIP, CMP, GFR, PBNP, TROPHS #### [address] [address] Basophil, Abs Manual 0.04 10 3/mcL Normal 0.00-0.27 [facility] ([place]) Comment on above: Performed By: #### C BC, ADIFF, ANEU, LIP, CMP, GFR, PBNP, TROPHS #### [place] [address] Cells Counted 100 Normal [facility] ([place]) Comment on above: Performed By: #### C BC, ADIFF, ANEU, LIP, CMP, GFR, PBNP, TROPHS #### [place] [address] Eosinophil %, Manual 0.0 % Normal 0.0-6.0 [facility] ([place]) Comment on above: Performed By: #### C BC, ADIFF, ANEU, LIP, CMP, GFR, PBNP, TROPHS #### [address] [address] Eosinophil, Abs Manual 0.00 10 3/mcL Normal 0.00-0.65 [facility] ([place]) Comment on above: Performed By: #### C BC, ADIFF, ANEU, LIP, CMP, GFR, PBNP, TROPHS #### [address] [address] Lymphocyte %, Manual 11.0 % Low 20.0-40.0 [facility] ([place]) Comment on above: Performed By: #### C BC, ADIFF, ANEU, LIP, CMP, GFR, PBNP, TROPHS #### [address] [address] Lymphocyte, Abs Manual 0.49 10 3/mcL Low 0.90-4.32 [facility] ([place]) Comment on above: Performed By: #### C BC, ADIFF, ANEU, LIP, CMP, GFR, PBNP, TROPHS #### [address] [address] Monocyte %, Manual 4.0 % Normal 2.0-13.0 [facility] ([place]) Comment on above: Performed By: #### C BC, ADIFF, ANEU, LIP, CMP, GFR, PBNP, TROPHS #### [address] [address] Monocyte, Abs Manual 0.18 10 3/mcL Normal 0.09-1.40 [facility] ([place]) Comment on above: Performed By: #### C BC, ADIFF, ANEU, LIP, CMP, GFR, PBNP, TROPHS #### [address] [address] Neutrophil %, Manual 84.0 % High 50.0-75.0 [facility] ([place]) Comment on above: Performed By: #### C BC, ADIFF, ANEU, LIP, CMP, GFR, PBNP, TROPHS #### [address] [address] Neutrophil, Abs Manual 3.78 10 3/mcL Normal 2.25-8.10 [facility] ([place]) Comment on above: Performed By: #### C BC, ADIFF, ANEU, LIP, CMP, GFR, PBNP, TROPHS #### [address] [address] .Morphon 08-12-2021 Anisocytosis Ql (Bld) Slight Normal [facility] ([place]) Comment on above: Performed By: #### C BC, ADIFF, ANEU, LIP, CMP, GFR, PBNP, TROPHS #### [address] [address] Platelet Estimate Normal Normal [facility] ([place]) Comment on above: Performed By: #### C BC, ADIFF, ANEU, LIP, CMP, GFR, PBNP, TROPHS #### [address] [address] Tear Cell Rare Normal [facility] ([place]) Comment on above: Performed By: #### C BC, ADIFF, ANEU, LIP, CMP, GFR, PBNP, TROPHS #### [address] [address] BMPon 08-12-2021 BUN/Creatinine Ratio 13.6 ratio Normal 10.0-22.0 [facility] ([place]) Comment on above: Performed By: #### C BC, ADIFF, ANEU, LIP, CMP, GFR, PBNP, TROPHS #### [address] [address] Calcium [Mass/Vol] 9.3 mg/dL Normal 8.4-10.1 [facility] ([place]) Comment on above: Result Comment: No te - New Reference Range in effect 20 Performed By: #### C BC, ADIFF, ANEU, LIP, CMP, GFR, PBNP, TROPHS #### [address] [address] Chloride [Moles/Vol] 101 mmol/L Normal 98-110 [facility] ([place]) Comment on above: Performed By: #### C BC, ADIFF, ANEU, LIP, CMP, GFR, PBNP, TROPHS #### [address] [address] CO2 [Moles/Vol] 32 mmol/L Normal 22-32 [facility] ([place]) Comment on above: Performed By: #### C BC, ADIFF, ANEU, LIP, CMP, GFR, PBNP, TROPHS #### [address] [address] Creatinine [Mass/Vol] 1.03 mg/dL Normal 0.50-1.20 [facility] ([place]) Comment on above: Performed By: #### C BC, ADIFF, ANEU, LIP, CMP, GFR, PBNP, TROPHS #### [address] [address] Electrolyte Balance 8.0 mEq/L Normal 4.0-15.0 [facility] ([place]) Comment on above: Performed By: #### C BC, ADIFF, ANEU, LIP, CMP, GFR, PBNP, TROPHS #### [address] [address] Glucose [Mass/Vol] 139 mg/dL High 70-110 [facility] ([place]) Comment on above: Performed By: #### C BC, ADIFF, ANEU, LIP, CMP, GFR, PBNP, TROPHS #### [address] [address] Potassium [Moles/Vol] 3.6 mmol/L Normal 3.5-5.0 [facility] ([place]) Comment on above: Performed By: #### C BC, ADIFF, ANEU, LIP, CMP, GFR, PBNP, TROPHS #### [address] [address] Sodium [Moles/Vol] 141 mmol/L Normal 136-145 [facility] ([place]) Comment on above: Performed By: #### C BC, ADIFF, ANEU, LIP, CMP, GFR, PBNP, TROPHS #### [address] [address] Urea nitrogen [Mass/Vol] 14.0 mg/dL Normal 8.0-22.0 [facility] ([place]) Comment on above: Performed By: #### C BC, ADIFF, ANEU, LIP, CMP, GFR, PBNP, TROPHS #### [address] [address] CBCon 08-12-2021 Erythrocyte distribution width (RBC) [Ratio] 16.9 % High 11.5-15.5 [facility] ([place]) Comment on above: Performed By: #### C BC, ADIFF, ANEU, LIP, CMP, GFR, PBNP, TROPHS #### [address] [address] Hematocrit (Bld) [Volume fraction] 41.2 % Normal 34.0-46.0 [facility] ([place]) Comment on above: Performed By: #### C BC, ADIFF, ANEU, LIP, CMP, GFR, PBNP, TROPHS #### [address] [address] Hgb 13.4 G/dL Normal 12.0-16.0 [facility] ([place]) Comment on above: Performed By: #### C BC, ADIFF, ANEU, LIP, CMP, GFR, PBNP, TROPHS #### [place] [address] MCH (RBC) [Entitic mass] 29.9 pg Normal 27.0-33.0 [facility] ([place]) Comment on above: Performed By: #### C BC, ADIFF, ANEU, LIP, CMP, GFR, PBNP, TROPHS #### [place] [address] MCHC 32.4 G/dL Normal 32.0-36.0 [facility] ([place]) Comment on above: Performed By: #### C BC, ADIFF, ANEU, LIP, CMP, GFR, PBNP, TROPHS #### [place] [address] MCV (RBC) [Entitic vol] 92.4 fL Normal 80.0-99.0 [facility] ([place]) Comment on above: Performed By: #### C BC, ADIFF, ANEU, LIP, CMP, GFR, PBNP, TROPHS #### [place] [address] Platelet 148 10 3/mcL Low 150-450 [facility] ([place]) Comment on above: Performed By: #### C BC, ADIFF, ANEU, LIP, CMP, GFR, PBNP, TROPHS #### [address] [address] Platelet mean volume (Bld) [Entitic vol] 10.7 fL High 6.6-10.5 [facility] ([place]) Comment on above: Performed By: #### C BC, ADIFF, ANEU, LIP, CMP, GFR, PBNP, TROPHS #### [place] [address] RBC 4.46 10 6/mcL Normal 4.10-5.30 [facility] ([place]) Comment on above: Performed By: #### C BC, ADIFF, ANEU, LIP, CMP, GFR, PBNP, TROPHS #### [place] [address] [place], [place] [address] WBC 4.50 10 3/mcL Normal 4.50-10.80 [facility] ([place]) Comment on above: Performed By: #### C BC, ADIFF, ANEU, LIP, CMP, GFR, PBNP, TROPHS #### [place] [address] [address] [place], [place] [address] LABORATORYOrdered By: Candie Interiano on 08-12-2021 Glucose [Mass/Vol] 174 mg/dL Invalid Interpretation Code 70 - 110 mg/dL [facility] LABORATORYOrdered By: Daniel Quiroga on 08-12-2021 Adenovirus DNA SHAI+non-probe Ql (Nph) Not Detected *NA* (08/12/21 2:29 PM) Invalid Interpretation Code Not Detected AH Auto Viro/Sero SS ADMITTED TO INTENSIVE CARE UNIT FOR CONDITION OF INTEREST:FIND:PT:^PATIE NT:ORD: No (08/12/21 2:29 PM) Invalid Interpretation [...] Auto [employer]iro[employer]Sero SS EMPLOYED IN A HEALTHCARE SETTING:FIND:PT:^PATIINDRA T:ORD: No (08/12/21 2:29 PM) Invalid Interpretation Code AH Auto Viro/Sero SS FIRST TEST FOR CONDITION OF INTEREST:FIND:PT:^PATIE NT:ORD: No (08/12/21 2:29 PM) Invalid Interpretation Code AH Auto Viro/Sero SS FLUAV RNA SHAI+non-probe Ql (Nph) Not Detected *NA* (08/12/21 2:29 PM) Invalid Interpretation Code Not Detected Auto Viro/Sero SS FLUBV RNA SHAI+non-probe Ql (Nph) Not Detected *NA* (08/12/21 2:29 PM) Invalid Interpretation Code Not Detected AH Auto Viro/Sero SS HAS SYMPTOMS RELATED TO CONDITION OF INTEREST:FIND:PT:^PATIE NT:ORD: No (08/12/21 2:29 PM) Invalid Interpretation [...] Code Not Detected AH Auto Viro/Sero SS Patient was hospitalized because of this condition Yes (08/12/21 2:29 PM) Invalid Interpretation Code AH Auto Viro/Sero SS status Not (08/12/21 2:29 PM) Invalid Interpretation Code AH Auto Viro/Sero SS RESIDES IN A [place]ATE CARE SETTING:FIND:PT:^PATIEN T:ORD: No (08/12/21 2:29 PM) Invalid Interpretation Code AH Auto Viro/Sero SS Rhinovirus+Enterovirus RNA SHAI+non-probe Ql (Nph) Not Detected *NA* (08/12/21 2:29 PM) Invalid Interpretation Code Not Detected AH Auto Viro/Sero SS RSV RNA SHAI+non-probe Ql (Nph) Not Detected *NA* (08/12/21 2:29 PM) Invalid Interpretation Code Not Detected AH Auto Viro/Sero SS SARS-CoV-2 (COVID-19) RNA SHAI+probe Ql (Unsp spec) Detected 1 *ABN* (08/12/21 2:29 PM) Invalid Interpretation Code Not Detected AH Auto Viro/Sero SS Comment on above: Result Comment: This organism causes a reportable disease. Infection Control has been notified. Results have been reported to the [place] [facility]. LABORATORYOrdered By: Gely Ramirez on 08-12-2021 Blood Glucose Testing Reason Routine (08/12/21 11:20 AM) [facility] LABORATORYOrdered By: SYSTEM SYSTEM on 08-12-2021 Anisocytosis Ql (Bld) Slight *NA* (08/12/21 10:25 AM) Invalid Interpretation Code Remisol SS Basophils (Bld) [#/Vol] 0.04 103/mcL Invalid Interpretation Code 0.00 - 0.27 10^3/mcL AH Remisol SS Basophils/100 WBC (Bld) 1.0 % Invalid Interpretation Code 0.0 - 2.5 % Remisol SS Cells Counted Total (Unsp spec) [#] 100 Invalid Interpretation Code AH Remisol SS Dacrocytes LM Ql (Bld) Rare [...] 0.50 - 1.20 mg/dL AH ADM SS GFR/1.73 sq M.predicted among blacks MDRD (S/P/Bld) [Vol rate/Area] ml/min/1.73sqm Invalid Interpretation Code AH ADM SS GFR/1.73 sq M.predicted among non-blacks MDRD (S/P/Bld) [Vol rate/Area] 57 ml/min/1.73sqm Invalid Interpretation Code AH ADM SS Glucose [Mass/Vol] 139 mg/dL Invalid Interpretation Code 70 - 110 mg/dL AH ADM SS Magnesium [Mass/Vol] 2.1 mg/dL Invalid Interpretation Code 1.6 - 2.4 mg/dL AH ADM SS Potassium [Moles/Vol] 3.6 mmol/L Invalid Interpretation Code 3.5 - 5.0 mEq/L AH ADM SS Sodium [Moles/Vol] 141 mmol/L Invalid Interpretation Code 136 - 145 mEq/L ADM SS Urea nitrogen [Mass/Vol] 14.0 mg/dL Invalid Interpretation Code 8.0 - 22.0 mg/dL ADM SS Urea nitrogen/Creatinine [Mass ratio] 13.6 ratio Invalid Interpretation Code 10.0 - 22.0 ratio ADM SS MGon 08-12-2021 Magnesium [Mass/Vol] 2.1 mg/dL Normal 1.6-2.4 [facility] ([place]) Comment on above: Performed By: #### C BC, ADIFF, ANEU, LIP, CMP, GFR, PBNP, TROPHS #### [address] [address] PREGUon 08-12-2021 HCG ( test) Ql (U) Negative Normal [facility] ([place]) Comment on above: Performed By: #### C BC, ADIFF, ANEU, LIP, CMP, GFR, PBNP, TROPHS #### [address] [address] test (u) int Not detected Invalid Interpretation Code [facility] ([place]) Comment on above: Performed By: #### C BC, ADIFF, ANEU, LIP, CMP, GFR, PBNP, TROPHS #### [place] [address] RESCVIDon 08-12-2021 Adenovirus Not detected Normal Not Detected [facility] ([place]) Comment on above: Performed By: #### C BC, ADIFF, ANEU, LIP, CMP, GFR, PBNP, TROPHS #### [place] [address] Bordetella Parapertussis Not detected Normal Not Detected [facility] ([place]) Comment on above: Performed By: #### C BC, ADIFF, ANEU, LIP, CMP, GFR, PBNP, TROPHS #### [address] [address] Bordetella Pertussis Not detected Normal Not Detected [facility] ([place]) Comment on above: Performed By: #### C BC, ADIFF, ANEU, LIP, CMP, GFR, PBNP, TROPHS #### [address] [address] Chlamydophila pneumoniae Not detected Normal Not Detected [facility] ([place]) Comment on above: Performed By: #### C BC, ADIFF, ANEU, LIP, CMP, GFR, PBNP, TROPHS #### [address] [address] Coronavirus 229E (Not COVID-19) Not detected Normal Not Detected [facility] ([place]) Comment on above: Performed By: #### C BC, ADIFF, ANEU, LIP, CMP, GFR, PBNP, TROPHS #### [address] [address] Coronavirus HKU1 (Not COVID-19) Not detected Normal Not Detected [facility] ([place]) Comment on above: Performed By: #### C BC, ADIFF, ANEU, LIP, CMP, GFR, PBNP, TROPHS #### [place] [address] Coronavirus NL63 (Not COVID-19) Not detected Normal Not Detected [facility] ([place]) Comment on above: Performed By: #### C BC, ADIFF, ANEU, LIP, CMP, GFR, PBNP, TROPHS #### [place] [address] Coronavirus OC43 (Not COVID-19) Not detected Normal Not Detected [facility] ([place]) Comment on above: Performed By: #### C BC, ADIFF, ANEU, LIP, CMP, GFR, PBNP, TROPHS #### [place] [address] Date of Onset [id number] Invalid Interpretation Code [facility] ([place]) Comment on above: Performed By: #### C BC, ADIFF, ANEU, LIP, CMP, GFR, PBNP, TROPHS #### [address] [address] Employed in Healthcare No Normal [facility] ([place]) Comment on above: Performed By: #### C BC, ADIFF, ANEU, LIP, CMP, GFR, PBNP, TROPHS #### [address] [address] First Test No Normal [facility] ([place]) Comment on above: Performed By: #### C BC, ADIFF, ANEU, LIP, CMP, GFR, PBNP, TROPHS #### [address] [address] Hospitalized Yes Normal [facility] ([place]) Comment on above: Performed By: #### C BC, ADIFF, ANEU, LIP, CMP, GFR, PBNP, TROPHS #### [address] [address] Human Metapneumovirus Not detected Normal Not Detected [facility] ([place]) Comment on above: Performed By: #### C BC, ADIFF, ANEU, LIP, CMP, GFR, PBNP, TROPHS #### [address] [address] ICU No Normal [facility] ([place] Comment on above: Performed By: #### C BC, ADIFF, ANEU, LIP, CMP, GFR, PBNP, TROPHS #### [place] [address] Influenza A Not detected Normal Not Detected [facility] ([place]) Comment on above: Performed By: #### C BC, ADIFF, ANEU, LIP, CMP, GFR, PBNP, TROPHS #### [place] [address] Influenza B Not detected Normal Not Detected [facility] ([place]) Comment on above: Performed By: #### C BC, ADIFF, ANEU, LIP, CMP, GFR, PBNP, TROPHS #### [place] [address] Mycoplasma pneumoniae Not detected Normal Not Detected [facility] ([place]) Comment on above: Performed By: #### C BC, ADIFF, ANEU, LIP, CMP, GFR, PBNP, TROPHS #### [place] [address] Parainfluenza 1 Not detected Normal Not Detected [facility] ([place]) Comment on above: Performed By: #### C BC, ADIFF, ANEU, LIP, CMP, GFR, PBNP, TROPHS #### [place] [address] Parainfluenza 2 Not detected Normal Not Detected [facility] ([place]) Comment on above: Performed By: #### C BC, ADIFF, ANEU, LIP, CMP, GFR, PBNP, TROPHS #### [place] [address] Parainfluenza 3 Not detected Normal Not Detected [facility] ([place]) Comment on above: Performed By: #### C BC, ADIFF, ANEU, LIP, CMP, GFR, PBNP, TROPHS #### [place] [address] Parainfluenza 4 Not detected Normal Not Detected [facility] ([place]) Comment on above: Performed By: #### C BC, ADIFF, ANEU, LIP, CMP, GFR, PBNP, TROPHS #### [address] [address] Not Normal [facility] ([place]) Comment on above: Performed By: #### C BC, ADIFF, ANEU, LIP, CMP, GFR, PBNP, TROPHS #### [address] [address] Resides in Congregate Care Setting No Normal [facility] ([place]) Comment on above: Performed By: #### C BC, ADIFF, ANEU, LIP, CMP, GFR, PBNP, TROPHS #### [address] [address] Respiratory Syncytial Virus Not detected Normal Not Detected [facility] ([place]) Comment on above: Performed By: #### C BC, ADIFF, ANEU, LIP, CMP, GFR, PBNP, TROPHS #### [address] [address] Rhinovirus/Enterovirus Not detected Normal Not Detecte d [facility] ([place]) Comment on above: Performed By: #### C BC, ADIFF, ANEU, LIP, CMP, GFR, PBNP, TROPHS #### [address] [address] SARS-CoV-2 (COVID-19) RNA SHAI+probe Ql (Unsp spec) Detected Abnormal Not Detected [facility] ([place]) Comment on above: Result Comment: This organism causes a reportable disease. Infection Control has been notified. Results have been reported to the [facility]. This test is being used under the FDA EUA procedure. This assay has been validated in the [facility] for use with nasopharyngeal specimens in [facility]. If a non-validated specimen or test collection [...] ANEU, LIP, CMP, GFR, PBNP, TROPHS #### [place] [address] Symptomatic as Defined by [facility] No Normal [facility] ([place]) Comment on above: Performed By: #### C BC, ADIFF, ANEU, LIP, CMP, GFR, PBNP, TROPHS #### [place] [phone] UAon 08-12-2021 Color (U) Yellow Normal [facility] ([place]) Comment on above: Performed By: #### C BC, ADIFF, ANEU, LIP, CMP, GFR, PBNP, TROPHS #### [place] [phone] Glucose (U) [Mass/Vol] mg/dL Abnormal Negative [facility] ([place]) Comment on above: Performed By: #### C BC, ADIFF, ANEU, LIP, CMP, GFR, PBNP, TROPHS #### [place] [phone] Ketones Ql (U) Negative Normal Neg-Trace [facility] ([place]) Comment on above: Performed By: #### C BC, ADIFF, ANEU, LIP, CMP, GFR, PBNP, TROPHS #### [address] [address] UA Appear Clear Normal Clear [facility] ([place]) Comment on above: Performed By: #### C BC, ADIFF, ANEU, LIP, CMP, GFR, PBNP, TROPHS #### [address] [address] UA Blood Moderate Abnormal Neg-Trace [facility] ([place]) Comment on above: Performed By: #### C BC, ADIFF, ANEU, LIP, CMP, GFR, PBNP, TROPHS #### [address] [address] UA Leuk Est Trace Normal Negative [facility] ([place]) Comment on above: Performed By: #### C BC, ADIFF, ANEU, LIP, CMP, GFR, PBNP, TROPHS #### [address] [address] UA Nitrite Negative Normal Negative [facility] ([place]) Comment on above: Performed By: #### C BC, ADIFF, ANEU, LIP, CMP, GFR, PBNP, TROPHS #### [address] [address] UA pH 8.0 Normal 5.0 - 8.0 [facility] ([place]) Comment on above: Performed By: #### C BC, ADIFF, ANEU, LIP, CMP, GFR, PBNP, TROPHS #### [address] [address] UA Protein Negative Normal Negative [facility] ([place]) Comment on above: Performed By: #### C BC, ADIFF, ANEU, LIP, CMP, GFR, PBNP, TROPHS #### [address] [address] UA Spec Grav 1.010 Normal 1.006-1.029 [facility] ([place]) Comment on above: Performed By: #### C BC, ADIFF, ANEU, LIP, CMP, GFR, PBNP, TROPHS #### [address] [address] UA Specimen Type Void Normal [facility] ([place]) Comment on above: Performed By: #### C BC, ADIFF, ANEU, LIP, CMP, GFR, PBNP, TROPHS #### [address] [address] UA Urobilinogen 1.0 E.U./dL Normal 0.2-1.0 [facility] ([place]) Comment on above: Performed By: #### C BC, ADIFF, ANEU, LIP, CMP, GFR, PBNP, TROPHS #### [place] [address] Urobilinogen (U) [Mass/Vol] Negative Normal Neg-Trace [facility] ([place]) Comment on above: Performed By: #### C BC, ADIFF, ANEU, LIP, CMP, GFR, PBNP, TROPHS #### [place] [address] UAMICon 08-12-2021 UA Bacteria Trace Abnormal Negative [facility] ([place]) Comment on above: Performed By: #### C BC, ADIFF, ANEU, LIP, CMP, GFR, PBNP, TROPHS #### [address] [address] UA Glitter cells Rare Abnormal [facility] ([place]) Comment on above: Performed By: #### C BC, ADIFF, ANEU, LIP, CMP, GFR, PBNP, TROPHS #### [address] [address] UA RBC 0-2 Normal 0-2 [facility] ([place]) Comment on above: Performed By: #### C BC, ADIFF, ANEU, LIP, CMP, GFR, PBNP, TROPHS #### [address] [address] UA Squam Epithelial Rare Normal 0-20 [facility] ([place]) Comment on above: Performed By: #### C BC, ADIFF, ANEU, LIP, CMP, GFR, PBNP, TROPHS #### [address] [address] UA WBC 0-2 Normal 0-5 [facility] ([place]) Comment on above: Performed By: #### C BC, ADIFF, ANEU, LIP, CMP, GFR, PBNP, TROPHS #### [address] [address] XR CHEST 1 VIEWon 08-12-2021 XR CHEST [...] 08/12/2021 12:28:43 PM Ordering Provider: MAXIMO Casas [facility] ([place]) .Auto Diffon 08-11-2021 Basophil, Absolute 0.00 10 3/mcL Normal 0.00-0.27 [facility] ([place]) Comment on above: Performed By: #### C BC, ADIFF, ANEU, LIP, CMP, GFR, PBNP, TROPHS #### [address] [address] Basophils/100 WBC (Bld) 0.7 % Normal 0.0-2.5 A [facility] ([place]) Comment on above: Performed By: #### C BC, ADIFF, ANEU, LIP, CMP, GFR, PBNP, TROPHS #### [address] [address] Eosinophil, Absolute 0.10 10 3/mcL Normal 0.00-0.65 A [facility] ([place]) Comment on above: Performed By: #### C BC, ADIFF, ANEU, LIP, CMP, GFR, PBNP, TROPHS #### [address] [address] Eosinophils/100 WBC (Bld) 1.1 % Normal 0.0-6.0 [facility] ([place]) Comment on above: Performed By: #### C BC, ADIFF, ANEU, LIP, CMP, GFR, PBNP, TROPHS #### [address] [address] Lymphocyte, Absolute 1.10 10 3/mcL Normal 0.90-4.32 A [facility] ([place]) Comment on above: Performed By: #### C BC, ADIFF, ANEU, LIP, CMP, GFR, PBNP, TROPHS #### [address] [address] Lymphocytes/100 WBC (Bld) 15.2 % Low 20.0-40.0 [facility] ([place]) Comment on above: Performed By: #### C BC, ADIFF, ANEU, LIP, CMP, GFR, PBNP, TROPHS #### [address] [address] Monocyte, Absolute 0.60 10 3/mcL Normal 0.09-1.40 [facility] ([place]) Comment on above: Performed By: #### C BC, ADIFF, ANEU, LIP, CMP, GFR, PBNP, TROPHS #### [address] [address] Monocytes/100 WBC (Bld) 8.0 % Normal 2.0-13.0 A [facility] ([place]) Comment on above: Performed By: #### C BC, ADIFF, ANEU, LIP, CMP, GFR, PBNP, TROPHS #### [address] [address] Neutrophils/100 WBC (Bld) 75.0 % Normal 50.0-75.0 [facility] ([place]) Comment on above: Performed By: #### C BC, ADIFF, ANEU, LIP, CMP, GFR, PBNP, TROPHS #### [address] [address] .GFRon 08-11-2021 GFR >60 Normal [facility] ([place]) Comment on above: Result Comment: GFR Population [...] ANEU, LIP, CMP, GFR, PBNP, TROPHS #### [address] [address] GFR Non- >60 Normal [facility] ([place]) Comment on above: Result Comment: GFR Population [...] ANEU, LIP, CMP, GFR, PBNP, TROPHS #### [address] [address] .Morphon 08-11-2021 Platelet Estimate Normal Normal [facility] ([place]) Comment on above: Result Comment: Few platelet clumps seen. Performed By: #### C BC, ADIFF, ANEU, LIP, CMP, GFR, PBNP, TROPHS #### [address] [address] RBC morphology finding Nom (Bld) Normal Normal [facility] ([place]) Comment on above: Performed By: #### C BC, ADIFF, ANEU, LIP, CMP, GFR, PBNP, TROPHS #### [address] [address] .NEUABSon 08-11-2021 Neutrophil, Absolute 5.30 10 3/mcL Normal 2.25-8.10 A [facility] ([place]) Comment on above: Performed By: #### C BC, ADIFF, ANEU, LIP, CMP, GFR, PBNP, TROPHS #### [place] [phone] BGon 08-11-2021 Barometric Pressure 712 mmHg Normal [facility] ([place]) Comment on above: Performed By: #### C BC, ADIFF, ANEU, LIP, CMP, GFR, PBNP, TROPHS #### [address] [address] Base excess Calc (Bld) [Moles/Vol] 7.1 mmol/L Normal [facility] ([place]) Comment on above: Performed By: #### C BC, ADIFF, ANEU, LIP, CMP, GFR, PBNP, TROPHS #### [address] [address] CO2 [Moles/Vol] 32.6 mmol/L High 22.0-30.0 [facility] ([place]) Comment on above: Performed By: #### C BC, ADIFF, ANEU, LIP, CMP, GFR, PBNP, TROPHS #### [place] [phone] HCO3 (Bld) [Moles/Vol] 31.3 mmol/L High 21.0-29.0 A [facility] ([place]) Comment on above: Performed By: #### C BC, ADIFF, ANEU, LIP, CMP, GFR, PBNP, TROPHS #### [address] [address] Oxygen (Bld) [Partial pressure] 54.6 mm[Hg] Low 74.0-108.0 [facility] ([place]) Comment on above: Performed By: #### C BC, ADIFF, ANEU, LIP, CMP, GFR, PBNP, TROPHS #### [address] [address] Oxygen saturation in Blood 89.2 % Low 92.0-96.0 [facility] ([place]) Comment on above: Performed By: #### C BC, ADIFF, ANEU, LIP, CMP, GFR, PBNP, TROPHS #### [place] [address] [place], [place] [address] pCO2 42.4 mmHg Normal 32.0-46.0 [facility] ([place]) Comment on above: Performed By: #### C BC, ADIFF, ANEU, LIP, CMP, GFR, PBNP, TROPHS #### [address] [address] pH (Bld) 7.486 [pH] High 7.380-7.460 [facility] ([place]) Comment on above: Performed By: #### C BC, ADIFF, ANEU, LIP, CMP, GFR, PBNP, TROPHS #### [address] [address] BMPon 08-11-2021 BUN/Creatinine Ratio 16.5 ratio Normal 10.0-22.0 [facility] ([place]) Comment on above: Order Comment: hemol yzed...notified Leighann 08/11/2021 06:11:06 EST Performed By: #### C BC, ADIFF, ANEU, LIP, CMP, GFR, PBNP, TROPHS #### [address] [address] Calcium [Mass/Vol] 9.3 mg/dL Normal 8.4-10.1 [facility] ([place]) Comment on above: Order Comment: hemol yzed...notified Leighann 08/11/2021 06:11:06 EST Result Comment: No te - New Reference Range in effect 20 Performed By: #### C BC, ADIFF, ANEU, LIP, CMP, GFR, PBNP, TROPHS #### [address] [address] Chloride [Moles/Vol] 104 mmol/L Normal 98-110 [facility] ([place]) Comment on above: Order Comment: hemol yzed...notified Leighann 08/11/2021 06:11:06 EST Performed By: #### C BC, ADIFF, ANEU, LIP, CMP, GFR, PBNP, TROPHS #### [address] [address] CO2 [Moles/Vol] 29 mmol/L Normal 22-32 [facility] ([place]) Comment on above: Order Comment: hemol yzed...notified [facility] 08/11/2021 06:11:06 EST Performed By: #### C BC, ADIFF, ANEU, LIP, CMP, GFR, PBNP, TROPHS #### [address] [address] Creatinine [Mass/Vol] 0.91 mg/dL Normal 0.50-1.20 [facility] ([place]) Comment on above: Order Comment: hemol yzed...notified [facility] 08/11/2021 06:11:06 EST Performed By: #### C BC, ADIFF, ANEU, LIP, CMP, GFR, PBNP, TROPHS #### [address] [address] Electrolyte Balance 9.0 mEq/L Normal 4.0-15.0 [facility] ([place]) Comment on above: Order Comment: hemol yzed...notified Leighann 08/11/2021 06:11:06 EST Performed By: #### C BC, ADIFF, ANEU, LIP, CMP, GFR, PBNP, TROPHS #### [address] [address] Glucose [Mass/Vol] 158 mg/dL High 70-110 [facility] ([place]) Comment on above: Order Comment: hemol yzed...notified [facility] 08/11/2021 06:11:06 EST Performed By: #### C BC, ADIFF, ANEU, LIP, CMP, GFR, PBNP, TROPHS #### [address] [address] Potassium [Moles/Vol] 3.4 mmol/L Low 3.5-5.0 [facility] ([place]) Comment on above: Order Comment: hemol yzed...notified Leighann 08/11/2021 06:11:06 EST Performed By: #### C BC, ADIFF, ANEU, LIP, CMP, GFR, PBNP, TROPHS #### [address] [address] Sodium [Moles/Vol] 142 mmol/L Normal 136-145 [facility] ([place]) Comment on above: Order Comment: hemol yzed...notified Leighann 08/11/2021 06:11:06 EST Performed By: #### C BC, ADIFF, ANEU, LIP, CMP, GFR, PBNP, TROPHS #### [address] [address] Urea nitrogen [Mass/Vol] 15.0 mg/dL Normal 8.0-22.0 [facility] ([place]) Comment on above: Order Comment: hemol yzed...notified [facility] 08/11/2021 06:11:06 EST Performed By: #### C BC, ADIFF, ANEU, LIP, CMP, GFR, PBNP, TROPHS #### [address] [address] CBCon 08-11-2021 Platelet 186 10 3/mcL Normal 150-450 [facility]) Comment on above: Performed By: #### C BC, ADIFF, ANEU, LIP, CMP, GFR, PBNP, TROPHS #### [address] [address] Platelet mean volume (Bld) [Entitic vol] 11.4 fL High 6.6-10.5 [facility] ([place]) Comment on above: Performed By: #### C BC, ADIFF, ANEU, LIP, CMP, GFR, PBNP, TROPHS #### [address] [address] Erythrocyte distribution width (RBC) [Ratio] 16.5 % High 11.5-15.5 [facility] ([place]) Comment on above: Performed By: #### C BC, ADIFF, ANEU, LIP, CMP, GFR, PBNP, TROPHS #### [place] [address] Hematocrit (Bld) [Volume fraction] 40.5 % Normal 34.0-46.0 [facility] ([place]) Comment on above: Performed By: #### C BC, ADIFF, ANEU, LIP, CMP, GFR, PBNP, TROPHS #### [place] [address] Hgb 13.2 G/dL Normal 12.0-16.0 [facility] ([place]) Comment on above: Performed By: #### C BC, ADIFF, ANEU, LIP, CMP, GFR, PBNP, TROPHS #### [place] [address] MCH (RBC) [Entitic mass] 30.1 pg Normal 27.0-33.0 [facility] ([place]) Comment on above: Performed By: #### C BC, ADIFF, ANEU, LIP, CMP, GFR, PBNP, TROPHS #### [place] [address] MCHC 32.7 G/dL Normal 32.0-36.0 [facility] ([place]) Comment on above: Performed By: #### C BC, ADIFF, ANEU, LIP, CMP, GFR, PBNP, TROPHS #### [place] [address] MCV (RBC) [Entitic vol] 92.0 fL Normal 80.0-99.0 A [facility] ([place]) Comment on above: Performed By: #### C BC, ADIFF, ANEU, LIP, CMP, GFR, PBNP, TROPHS #### [place] [address] RBC 4.40 10 6/mcL Normal 4.10-5.30 [facility] ([place]) Comment on above: Performed By: #### C BC, ADIFF, ANEU, LIP, CMP, GFR, PBNP, TROPHS #### [place] [phone] WBC 7.00 10 3/mcL Normal 4.50-10.80 [facility] ([place]) Comment on above: Performed By: #### C BC, ADIFF, ANEU, LIP, CMP, GFR, PBNP, TROPHS #### [address] [address] DRUGUon 08-11-2021 Drug Screen Urine Negative Normal [facility] ([place]) Comment on above: Performed By: #### C BC, ADIFF, ANEU, LIP, CMP, GFR, PBNP, TROPHS #### [address] [address] Drug Screen Urine Interp Urine shows no evidence of drugs routinely screened. Invalid Interpretation Code [facility] ([place]) Comment on above: Performed By: #### C BC, ADIFF, ANEU, LIP, CMP, GFR, PBNP, TROPHS #### [address] [address] U pH Drug Scrn 8.0 Normal 5.0-8.0 [facility] ([place]) Comment on above: Performed By: #### C BC, ADIFF, ANEU, LIP, CMP, GFR, PBNP, TROPHS #### [address] [address] U Specific [place] Drg Scrn 1.008 Normal 1.005-1.030 [facility] ([place]) Comment on above: Performed By: #### C BC, ADIFF, ANEU, LIP, CMP, GFR, PBNP, TROPHS #### [address] [address] Urine Drugs screened: See Below Normal [facility] ([place]) Comment on above: Result Comment: This drug [...] ANEU, LIP, CMP, GFR, PBNP, TROPHS #### [facility] [address] [place], [place] [address] LABORATORYOrdered By: Lizzeth Ferrer on 08-11-2021 Urine Preg POC Confirmation Sent to lab (08/11/21 10:47 PM) [facility] LABORATORYOrdered By: Renu Redding on 08-11-2021 Appearance [...] a low specific gravity, may not contain commissary representative levels of hCG.If is still suspected, [...] RBC 0-2 /HPF Invalid Interpretation Code 0-2/HPF Auto Urine SS UA Spec Grav 1.010 (08/11/21 10:45 PM) Invalid Interpretation Code 1.006-1.029 Auto Urine SS UA Specimen Type Void (08/11/21 10:45 PM) Invalid Interpretation Code Auto Urine SS UA Squam Epithelial Rare /HPF Invalid Interpretation Code 0-20/HPF Auto Urine SS UA Urobilinogen 1.0 E.U./dL Invalid Interpretation Code 0.2-1.0E.U./ dL Auto Urine SS WBC LM.HPF (Urine sed) [#/Area] 0-2 /HPF Invalid Interpretation Code 0-5/HPF Auto Urine SS LABORATORYOrdered By: Chandrika Butler on 08-11-2021 Barometric Pressure 712 mm[Hg] Invalid Interpretation Code AH Auto Chem SS Base excess Calc (Bld) [Moles/Vol] 7.1 mmol/L Invalid Interpretation Code Auto Chem SS CO2 (Bld) [Partial pressure] 42.4 mm[Hg] Invalid Interpretation Code 32.0 - 46.0 mm Hg Auto Chem SS CO2 [Moles/Vol] 32.6 mmol/L Invalid Interpretation Code 22.0 - 30.0 mmol/L AH Auto Chem SS HCO3 (Bld) [Moles/Vol] 31.3 [...] 10.1 mg/dL AH ADM SS Chloride [Moles/Vol] 104 mmol/L Invalid Interpretation Code 98 - 110 mEq/L AH ADM SS CO2 [Moles/Vol] 29 mmol/L Invalid Interpretation Code 22 - 32 mEq/L ADM SS Creatinine [Mass/Vol] 0.91 mg/dL Invalid Interpretation Code 0.50 - 1.20 mg/dL AH ADM SS GFR/1.73 sq M.predicted among blacks MDRD (S/P/Bld) [Vol rate/Area] ml/min/1.73sqm Invalid Interpretation Code AH ADM SS GFR/1.73 sq M.predicted among non-blacks MDRD (S/P/Bld) [Vol rate/Area] ml/min/1.73sqm Invalid Interpretation Code AH ADM SS Glucose [Mass/Vol] 158 mg/dL Invalid [...] 08-11-2021 Magnesium [Mass/Vol] 2.1 mg/dL Normal 1.6-2.4 [facility] ([place]) Comment on above: Order Comment: hemol yzed...notified Leighann 08/11/2021 06:11:52 EST Performed By: #### C BC, ADIFF, ANEU, LIP, CMP, GFR, PBNP, TROPHS #### [address] [address] No Panel Informationon 08-11 Culture Urine <10,000 cfu/ml. No Significant growth. Sensitivity not indicated. [facility] Microscopic examination of blood, culture Culture has been received in lab and is no growth to date. Routine cultures are held for 5 days. [facility] .Auto Diffon 08-10-2021 Basophil, Absolute 0.10 10 3/mcL Normal 0.00-0.19 [facility] ([place]) Comment on above: Performed By: #### C BC, ADIFF, ANEU, LIP, CMP, GFR, PBNP, TROPHS #### [address] [address] Basophils/100 WBC (Bld) 1.5 % Normal 0.0-2.5 A [facility] ([place]) Comment on above: Performed By: #### C BC, ADIFF, ANEU, LIP, CMP, GFR, PBNP, TROPHS #### [address] [address] Eosinophil, Absolute 0.10 10 3/mcL Normal 0.00-0.40 A [facility] ([place]) Comment on above: Performed By: #### C BC, ADIFF, ANEU, LIP, CMP, GFR, PBNP, TROPHS #### [address] [address] Eosinophils/100 WBC (Bld) 1.6 % Normal 0.0-7.0 [facility] ([place]) Comment on above: Performed By: #### C BC, ADIFF, ANEU, LIP, CMP, GFR, PBNP, TROPHS #### [address] [address] Lymphocyte, Absolute 2.20 10 3/mcL Normal 0.77-3.85 A [facility] ([place]) Comment on above: Performed By: #### C BC, ADIFF, ANEU, LIP, CMP, GFR, PBNP, TROPHS #### [address] [address] Lymphocytes/100 WBC (Bld) 28.7 % Normal 10.0-50.0 [facility] ([place]) Comment on above: Performed By: #### C BC, ADIFF, ANEU, LIP, CMP, GFR, PBNP, TROPHS #### [address] [address] Monocyte, Absolute 0.70 10 3/mcL Normal 0.15-1.00 [facility] ([place]) Comment on above: Performed By: #### C BC, ADIFF, ANEU, LIP, CMP, GFR, PBNP, TROPHS #### [address] [address] Monocytes/100 WBC (Bld) 9.2 % Normal 1.7-13.0 [facility] ([place]) Comment on above: Performed By: #### C BC, ADIFF, ANEU, LIP, CMP, GFR, PBNP, TROPHS #### [address] [address] Neutrophils/100 WBC (Bld) 59.0 % Normal 37.0-80.0 [facility] ([place]) Comment on above: Performed By: #### C BC, ADIFF, ANEU, LIP, CMP, GFR, PBNP, TROPHS #### [address] [address] .GFRon 08-10-2021 GFR >60 Normal [facility] ([place]) Comment on above: Result Comment: GFR Population [...] ANEU, LIP, CMP, GFR, PBNP, TROPHS #### [address] [address] GFR Non- >60 Normal [facility] ([place]) Comment on above: Result Comment: GFR Population [...] ANEU, LIP, CMP, GFR, PBNP, TROPHS #### [address] [address] .NEUABSon 08-10-2021 Neutrophil, Absolute 4.60 10 3/mcL Normal 2.85-6.16 A [facility] ([place]) Comment on above: Performed By: #### C BC, ADIFF, ANEU, LIP, CMP, GFR, PBNP, TROPHS #### [address] [address] APTTon 08-10-2021 aPTT Coag (Bld) [Time] 28.6 s Normal 24.8-33.3 [facility] ([place]) Comment on above: Result Comment: For Heparin anticoagulation therapy, the recommended therapeutic range is: 53.6-87.4 seconds (1.5 - 2.5 the normal plasma mean). Patients on heparin therapy may have an extreme result. Performed By: #### C BC, ADIFF, ANEU, LIP, CMP, GFR, PBNP, TROPHS #### [address] [address] Heparin dose (APTT) Heparin IV Normal [facility] ([place]) Comment on above: Performed By: #### C BC, ADIFF, ANEU, LIP, CMP, GFR, PBNP, TROPHS #### [address] [address] BMPon 08-10-2021 BUN/Creatinine Ratio 15.5 ratio Normal 10.0-22.0 [facility] ([place]) Comment on above: Performed By: #### C BC, ADIFF, ANEU, LIP, CMP, GFR, PBNP, TROPHS #### [address] [address] Calcium [Mass/Vol] 9.0 mg/dL Normal 8.4-10.1 [facility] ([place]) Comment on above: Result Comment: No te - New Reference Range in effect 20 Performed By: #### C BC, ADIFF, ANEU, LIP, CMP, GFR, PBNP, TROPHS #### [address] [address] Chloride [Moles/Vol] 104 mmol/L Normal 98-110 [facility] ([place]) Comment on above: Performed By: #### C BC, ADIFF, ANEU, LIP, CMP, GFR, PBNP, TROPHS #### [address] [address] CO2 [Moles/Vol] 30 mmol/L Normal 22-32 [facility] ([place]) Comment on above: Performed By: #### C BC, ADIFF, ANEU, LIP, CMP, GFR, PBNP, TROPHS #### [address] [address] Creatinine [Mass/Vol] 0.84 mg/dL Normal 0.50-1.20 [facility] ([place]) Comment on above: Performed By: #### C BC, ADIFF, ANEU, LIP, CMP, GFR, PBNP, TROPHS #### [address] [address] Electrolyte Balance 6.0 mEq/L Normal 4.0-15.0 [facility] ([place]) Comment on above: Performed By: #### C BC, ADIFF, ANEU, LIP, CMP, GFR, PBNP, TROPHS #### [address] [address] Glucose [Mass/Vol] 156 mg/dL High 70-110 [facility] ([place]) Comment on above: Performed By: #### C BC, ADIFF, ANEU, LIP, CMP, GFR, PBNP, TROPHS #### [address] [address] Potassium [Moles/Vol] 3.8 mmol/L Normal 3.5-5.0 [facility] ([place]) Comment on above: Result Comment: Spec imen slightly hemolyzed. Performed By: #### C BC, ADIFF, ANEU, LIP, CMP, GFR, PBNP, TROPHS #### [address] [address] Sodium [Moles/Vol] 140 mmol/L Normal 136-145 [facility] ([place]) Comment on above: Performed By: #### C BC, ADIFF, ANEU, LIP, CMP, GFR, PBNP, TROPHS #### [address] [address] Urea nitrogen [Mass/Vol] 13.0 mg/dL Normal 8.0-22.0 [facility] ([place]) Comment on above: Performed By: #### C BC, ADIFF, ANEU, LIP, CMP, GFR, PBNP, TROPHS #### [address] [address] CBCon 08-10-2021 Erythrocyte distribution width (RBC) [Ratio] 16.3 % High 11.5-14.5 [facility] ([place]) Comment on above: Performed By: #### C BC, ADIFF, ANEU, LIP, CMP, GFR, PBNP, TROPHS #### [address] [address] Hematocrit (Bld) [Volume fraction] 38.9 % Normal 37.0-47.0 [facility] ([place]) Comment on above: Performed By: #### C BC, ADIFF, ANEU, LIP, CMP, GFR, PBNP, TROPHS #### [address] [address] Hgb 12.7 G/dL Normal 12.0-16.0 [facility] ([place]) Comment on above: Performed By: #### C BC, ADIFF, ANEU, LIP, CMP, GFR, PBNP, TROPHS #### [place] [address] MCH (RBC) [Entitic mass] 29.6 pg Normal 27.0-31.2 [facility] ([place]) Comment on above: Performed By: #### C BC, ADIFF, ANEU, LIP, CMP, GFR, PBNP, TROPHS #### [place] [id number] MCHC 32.8 G/dL Low 33.0-37.0 [facility] ([place]) Comment on above: Performed By: #### C BC, ADIFF, ANEU, LIP, CMP, GFR, PBNP, TROPHS #### [address] [address] MCV (RBC) [Entitic vol] 90.4 fL Normal 80.0-94.0 [facility] ([place]) Comment on above: Performed By: #### C BC, ADIFF, ANEU, LIP, CMP, GFR, PBNP, TROPHS #### [address] [address] Platelet 179 10 3/mcL Normal 130-400 [facility] ([place]) Comment on above: Performed By: #### C BC, ADIFF, ANEU, LIP, CMP, GFR, PBNP, TROPHS #### [address] [address] Platelet mean volume (Bld) [Entitic vol] 10.5 fL High 7.4-10.4 [facility] ([place]) Comment on above: Performed By: #### C BC, ADIFF, ANEU, LIP, CMP, GFR, PBNP, TROPHS #### [address] [address] RBC 4.30 10 6/mcL Normal 4.20-5.40 [facility] ([place]) Comment on above: Performed By: #### C BC, ADIFF, ANEU, LIP, CMP, GFR, PBNP, TROPHS #### [address] [address] WBC 7.80 10 3/mcL Normal 4.60-10.80 [facility] ([place]) Comment on above: Performed By: #### C BC, ADIFF, ANEU, LIP, CMP, GFR, PBNP, TROPHS #### [address] [address] LABORATORYOrdered By: Renu Redding on 08-10-2021 Drug Screen Urine Negative (08/10/21 11:12 PM) Invalid Interpretation Code Chemistry S Drug Screen Urine Interp Urine shows no evidence of drugs routinely screened. Invalid Interpretation Code Chemistry S pH (U) 8.0 [pH] Invalid Interpretation Code 5.0 - 8.0 Chemistry S Specific gravity (U) [Rel density] 1.008 Invalid Interpretation Code 1.005 - 1.030 Chemistry S Urine Drugs screened: See Below (08/10/21 11:12 PM) Invalid Interpretation Code Chemistry S LABORATORYOrdered By: Philip Cool on [...] AO Auto Heme SS LABORATORYOrdered By: Shayy Peirce on 08-10-2021 Glucose [Mass/Vol] 200 mg/dL Invalid Interpretation Code 70 - 110 mg/dL [facility] MGon 08-10-2021 Magnesium [Mass/Vol] 1.9 mg/dL Normal 1.8-2.4 [facility] ([place]) Comment on above: Performed By: #### C BC, ADIFF, ANEU, LIP, CMP, GFR, PBNP, TROPHS #### [place] [address] [place], [place] [address] No Panel InformationOrdered By: Samanta Pan on 08-10-2021 Blood Glucose Testing Reason Routine (08/10/21 8:19 AM) [facility] PROon 08-10-2021 INR Coag (PPP) [Relative time] 1.2 {INR} Normal 0.9-1.2 [facility] ([place]) Comment on above: Result Comment: Moose dard [...] ANEU, LIP, CMP, GFR, PBNP, TROPHS #### [facility] [address] [place], [place] [address] PT Coag (PPP) [Time] 14.3 s Normal 9.7-14.3 [facility] ([place]) Comment on above: Performed By: #### C BC, ADIFF, ANEU, LIP, CMP, GFR, PBNP, TROPHS #### [address] [address] .Auto Diffon 08-09-2021 Basophil, Absolute 0.10 10 3/mcL Normal 0.00-0.19 [facility] ([place]) Comment on above: Performed By: #### C BC, ADIFF, ANEU, LIP, CMP, GFR, PBNP, TROPHS #### [address] [address] Basophils/100 WBC (Bld) 1.1 % Normal 0.0-2.5 A [facility] ([place]) Comment on above: Performed By: #### C BC, ADIFF, ANEU, LIP, CMP, GFR, PBNP, TROPHS #### [address] [address] Eosinophil, Absolute 0.10 10 3/mcL Normal 0.00-0.40 A [facility] ([place]) Comment on above: Performed By: #### C BC, ADIFF, ANEU, LIP, CMP, GFR, PBNP, TROPHS #### [address] [address] Eosinophils/100 WBC (Bld) 0.8 % Normal 0.0-7.0 [facility] ([place]) Comment on above: Performed By: #### C BC, ADIFF, ANEU, LIP, CMP, GFR, PBNP, TROPHS #### [address] [address] Lymphocyte, Absolute 3.20 10 3/mcL Normal 0.77-3.85 A [facility] ([place]) Comment on above: Performed By: #### C BC, ADIFF, ANEU, LIP, CMP, GFR, PBNP, TROPHS #### [address] [address] Lymphocytes/100 WBC (Bld) 27.0 % Normal 10.0-50.0 [facility] ([place]) Comment on above: Performed By: #### C BC, ADIFF, ANEU, LIP, CMP, GFR, PBNP, TROPHS #### [address] [address] Monocyte, Absolute 0.90 10 3/mcL Normal 0.15-1.00 [facility] ([place]) Comment on above: Performed By: #### C BC, ADIFF, ANEU, LIP, CMP, GFR, PBNP, TROPHS #### [address] [address] Monocytes/100 WBC (Bld) 7.4 % Normal 1.7-13.0 [facility] ([place]) Comment on above: Performed By: #### C BC, ADIFF, ANEU, LIP, CMP, GFR, PBNP, TROPHS #### [address] [address] Neutrophils/100 WBC (Bld) 63.7 % Normal 37.0-80.0 [facility] ([place]) Comment on above: Performed By: #### C BC, ADIFF, ANEU, LIP, CMP, GFR, PBNP, TROPHS #### [address] [address] .GFRon 08-09-2021 GFR 72 ml/min/1.73sqm Normal [facility] ([place]) Comment on above: Result Comment: GFR Population [...] ANEU, LIP, CMP, GFR, PBNP, TROPHS #### [address] [address] GFR Non- 60 ml/min/1.73sqm Normal [facility] ([place]) Comment on above: Result Comment: GFR Population [...] ANEU, LIP, CMP, GFR, PBNP, TROPHS #### [address] [address] GFR 68 ml/min/1.73sqm Normal [facility] ([place]) Comment on above: Result Comment: GFR Population [...] ANEU, LIP, CMP, GFR, PBNP, TROPHS #### [address] [address] GFR Non- 56 ml/min/1.73sqm Normal [facility] ([place]) Comment on above: Result Comment: GFR Population [...] ANEU, LIP, CMP, GFR, PBNP, TROPHS #### [place] [address] .NEUABSon 08-09-2021 Neutrophil, Absolute 7.60 10 3/mcL High 2.85-6.16 A [facility] ([place]) Comment on above: Performed By: #### C BC, ADIFF, ANEU, LIP, CMP, GFR, PBNP, TROPHS #### [place] [address] .Urinalysis Microscopic (AO) on 08-09-2021 UA Bacteria Trace Abnormal [facility] ([place]) Comment on above: Performed By: #### C BC, ADIFF, ANEU, LIP, CMP, GFR, PBNP, TROPHS #### [place] [phone] UA RBC None Seen Normal None Seen [facility] ([place]) Comment on above: Performed By: #### C BC, ADIFF, ANEU, LIP, CMP, GFR, PBNP, TROPHS #### [address] [address] UA Squam Epithelial 0-5 Abnormal None Seen [facility] ([place]) Comment on above: Performed By: #### C BC, ADIFF, ANEU, LIP, CMP, GFR, PBNP, TROPHS #### [place] [address] UA WBC 10-15 Abnormal None Seen [facility] ([place]) Comment on above: Performed By: #### C BC, ADIFF, ANEU, LIP, CMP, GFR, PBNP, TROPHS #### [place] [id number] A1Con 08-09-2021 HbA1c (Bld) [Mass fraction] 9.8 % High 4.3-6.4 [facility] ([place]) Comment on above: Performed By: #### C BC, ADIFF, ANEU, LIP, CMP, GFR, PBNP, TROPHS #### [place] [address] CBCon 08-09-2021 Erythrocyte distribution width (RBC) [Ratio] 16.4 % High 11.5-14.5 [facility] ([place]) Comment on above: Performed By: #### C BC, ADIFF, ANEU, LIP, CMP, GFR, PBNP, TROPHS #### [place] [address] Hematocrit (Bld) [Volume fraction] 43.2 % Normal 37.0-47.0 [facility] ([place]) Comment on above: Performed By: #### C BC, ADIFF, ANEU, LIP, CMP, GFR, PBNP, TROPHS #### [place] [address] Hgb 14.2 G/dL Normal 12.0-16.0 [facility] ([place]) Comment on above: Performed By: #### C BC, ADIFF, ANEU, LIP, CMP, GFR, PBNP, TROPHS #### [place] [address] MCH (RBC) [Entitic mass] 29.8 pg Normal 27.0-31.2 [facility] ([place]) Comment on above: Performed By: #### C BC, ADIFF, ANEU, LIP, CMP, GFR, PBNP, TROPHS #### [place] [address] MCHC 32.9 G/dL Low 33.0-37.0 [facility] ([place]) Comment on above: Performed By: #### C BC, ADIFF, ANEU, LIP, CMP, GFR, PBNP, TROPHS #### [address] [address] MCV (RBC) [Entitic vol] 90.6 fL Normal 80.0-94.0 A [facility] ([place]) Comment on above: Performed By: #### C BC, ADIFF, ANEU, LIP, CMP, GFR, PBNP, TROPHS #### [address] [address] Platelet 232 10 3/mcL Normal 130-400 [facility] ([place]) Comment on above: Performed By: #### C BC, ADIFF, ANEU, LIP, CMP, GFR, PBNP, TROPHS #### [address] [address] Platelet mean volume (Bld) [Entitic vol] 10.8 fL High 7.4-10.4 [facility] ([place]) Comment on above: Performed By: #### C BC, ADIFF, ANEU, LIP, CMP, GFR, PBNP, TROPHS #### [address] [address] RBC 4.76 10 6/mcL Normal 4.20-5.40 [facility] ([place]) Comment on above: Performed By: #### C BC, ADIFF, ANEU, LIP, CMP, GFR, PBNP, TROPHS #### [address] [address] WBC 11.90 10 3/mcL High 4.60-10.80 [facility] ([place]) Comment on above: Performed By: #### C BC, ADIFF, ANEU, LIP, CMP, GFR, PBNP, TROPHS #### [address] [address] CMPon 08-09-2021 Albumin Level 3.2 G/dL Low 3.5-5.0 [facility] ([place]) Comment on above: Performed By: #### C BC, ADIFF, ANEU, LIP, CMP, GFR, PBNP, TROPHS #### [address] [address] Albumin/Globulin [Mass ratio] 0.9 {ratio} Low 1.1-2.5 [facility] ([place]) Comment on above: Performed By: #### C BC, ADIFF, ANEU, LIP, CMP, GFR, PBNP, TROPHS #### [address] [address] ALP [Catalytic activity/Vol] 90 U/L Normal 40-135 [facility] ([place]) Comment on above: Performed By: #### C BC, ADIFF, ANEU, LIP, CMP, GFR, PBNP, TROPHS #### [address] [address] ALT [Catalytic activity/Vol] 25 U/L Normal 14-59 [facility] ([place]) Comment on above: Performed By: #### C BC, ADIFF, ANEU, LIP, CMP, GFR, PBNP, TROPHS #### [address] [address] AST [Catalytic activity/Vol] 20 U/L Normal 10-40 [facility] ([place]) Comment on above: Performed By: #### C BC, ADIFF, ANEU, LIP, CMP, GFR, PBNP, TROPHS #### [address] [address] Bili Total 1.2 mg/dL High 0.2-1.0 [facility] ([place]) Comment on above: Result Comment: Use of this assay is not recommended for patients undergoing treatment with eltrombopag due to the potential for falsely elevated results. Performed By: #### C BC, ADIFF, ANEU, LIP, CMP, GFR, PBNP, TROPHS #### [address] [address] BUN/Creatinine Ratio 12 ratio Normal 7-27 [facility] ([place]) Comment on above: Performed By: #### C BC, ADIFF, ANEU, LIP, CMP, GFR, PBNP, TROPHS #### [address] [address] Calcium [Mass/Vol] 8.6 mg/dL Normal 8.4-10.2 [facility] ([place]) Comment on above: Performed By: #### C BC, ADIFF, ANEU, LIP, CMP, GFR, PBNP, TROPHS #### [address] [address] Chloride [Moles/Vol] 103 mmol/L Normal 98-107 [facility] ([place]) Comment on above: Performed By: #### C BC, ADIFF, ANEU, LIP, CMP, GFR, PBNP, TROPHS #### [address] [address] CO2 [Moles/Vol] 30 mmol/L High 22-29 [facility] ([place]) Comment on above: Performed By: #### C BC, ADIFF, ANEU, LIP, CMP, GFR, PBNP, TROPHS #### [address] [address] Creatinine [Mass/Vol] 0.99 mg/dL Normal 0.55-1.02 [facility] ([place]) Comment on above: Performed By: #### C BC, ADIFF, ANEU, LIP, CMP, GFR, PBNP, TROPHS #### [address] [address] Electrolyte Balance 9.0 mEq/L Normal [facility] ([place]) Comment on above: Performed By: #### C BC, ADIFF, ANEU, LIP, CMP, GFR, PBNP, TROPHS #### [address] [address] Globulin 3.7 G/dL Normal [facility] ([place]) Comment on above: Performed By: #### C BC, ADIFF, ANEU, LIP, CMP, GFR, PBNP, TROPHS #### [address] [address] Glucose [Mass/Vol] 219 mg/dL High 70-105 [facility] ([place]) Comment on above: Performed By: #### C BC, ADIFF, ANEU, LIP, CMP, GFR, PBNP, TROPHS #### [address] [address] Potassium [Moles/Vol] 3.5 mmol/L Normal 3.5-5.1 [facility] ([place]) Comment on above: Performed By: #### C BC, ADIFF, ANEU, LIP, CMP, GFR, PBNP, TROPHS #### [address] [address] Sodium [Moles/Vol] 142 mmol/L Normal 136-145 [facility] ([place]) Comment on above: Performed By: #### C BC, ADIFF, ANEU, LIP, CMP, GFR, PBNP, TROPHS #### [address] [address] Total Protein 6.9 G/dL Normal 6.4-8.2 [facility] ([place]) Comment on above: Performed By: #### C BC, ADIFF, ANEU, LIP, CMP, GFR, PBNP, TROPHS #### [address] [address] Urea nitrogen [Mass/Vol] 12 mg/dL Normal 7-18 [facility] ([place]) Comment on above: Performed By: #### C BC, ADIFF, ANEU, LIP, CMP, GFR, PBNP, TROPHS #### [address] [address] Albumin Level 3.4 G/dL Low 3.5-5.0 [facility] ([place]) Comment on above: Performed By: #### C BC, ADIFF, ANEU, LIP, CMP, GFR, PBNP, TROPHS #### [address] [address] Albumin/Globulin [Mass ratio] 0.9 {ratio} Low 1.1-2.5 [facility] ([place]) Comment on above: Performed By: #### C BC, ADIFF, ANEU, LIP, CMP, GFR, PBNP, TROPHS #### [address] [address] ALP [Catalytic activity/Vol] 98 U/L Normal 40-135 [facility] ([place]) Comment on above: Performed By: #### C BC, ADIFF, ANEU, LIP, CMP, GFR, PBNP, TROPHS #### [address] [address] ALT [Catalytic activity/Vol] 29 U/L Normal 14-59 [facility] ([place]) Comment on above: Performed By: #### C BC, ADIFF, ANEU, LIP, CMP, GFR, PBNP, TROPHS #### [address] [address] AST [Catalytic activity/Vol] 25 U/L Normal 10-40 [facility] ([place]) Comment on above: Performed By: #### C BC, ADIFF, ANEU, LIP, CMP, GFR, PBNP, TROPHS #### [address] [address] Bili Total 1.2 mg/dL High 0.2-1.0 [facility] ([place]) Comment on above: Result Comment: Use of this assay is not recommended for patients undergoing treatment with eltrombopag due to the potential for falsely elevated results. Performed By: #### C BC, ADIFF, ANEU, LIP, CMP, GFR, PBNP, TROPHS #### [address] [address] BUN/Creatinine Ratio 12 ratio Normal 7-27 [facility] ([place]) Comment on above: Performed By: #### C BC, ADIFF, ANEU, LIP, CMP, GFR, PBNP, TROPHS #### [address] [address] Calcium [Mass/Vol] 8.9 mg/dL Normal 8.4-10.2 [facility] ([place]) Comment on above: Performed By: #### C BC, ADIFF, ANEU, LIP, CMP, GFR, PBNP, TROPHS #### [address] [address] Chloride [Moles/Vol] 103 mmol/L Normal 98-107 [facility] ([place]) Comment on above: Performed By: #### C BC, ADIFF, ANEU, LIP, CMP, GFR, PBNP, TROPHS #### [address] [address] CO2 [Moles/Vol] 26 mmol/L Normal 22-29 [facility] ([place]) Comment on above: Performed By: #### C BC, ADIFF, ANEU, LIP, CMP, GFR, PBNP, TROPHS #### [address] [address] Creatinine [Mass/Vol] 1.05 mg/dL High 0.55-1.02 [facility] ([place]) Comment on above: Performed By: #### C BC, ADIFF, ANEU, LIP, CMP, GFR, PBNP, TROPHS #### [address] [address] Electrolyte Balance 10.0 mEq/L Normal [facility] ([place]) Comment on above: Performed By: #### C BC, ADIFF, ANEU, LIP, CMP, GFR, PBNP, TROPHS #### [address] [address] Globulin 3.9 G/dL Normal [facility] ([place]) Comment on above: Performed By: #### C BC, ADIFF, ANEU, LIP, CMP, GFR, PBNP, TROPHS #### [address] [address] Glucose [Mass/Vol] 281 mg/dL High 70-105 [facility] ([place]) Comment on above: Performed By: #### C BC, ADIFF, ANEU, LIP, CMP, GFR, PBNP, TROPHS #### [address] [address] Potassium [Moles/Vol] 4.4 mmol/L Normal 3.5-5.1 [facility] ([place]) Comment on above: Performed By: #### C BC, ADIFF, ANEU, LIP, CMP, GFR, PBNP, TROPHS #### [address] [address] Sodium [Moles/Vol] 139 mmol/L Normal 136-145 [facility] ([place]) Comment on above: Performed By: #### C BC, ADIFF, ANEU, LIP, CMP, GFR, PBNP, TROPHS #### [place] [address] Total Protein 7.3 G/dL Normal 6.4-8.2 [facility] ([place]) Comment on above: Performed By: #### C BC, ADIFF, ANEU, LIP, CMP, GFR, PBNP, TROPHS #### [place] [address] Urea nitrogen [Mass/Vol] 13 mg/dL Normal 7-18 [facility] ([place]) Comment on above: Performed By: #### C BC, ADIFF, ANEU, LIP, CMP, GFR, PBNP, TROPHS #### [place] [address] [id number] 08-09-2021 Date of Onset [id number] Invalid Interpretation Code [facility] ([place]) Comment on above: Performed By: #### C BC, ADIFF, ANEU, LIP, CMP, GFR, PBNP, TROPHS #### [place] [address] Employed in Healthcare [facility] ([place]) Comment on above: Performed By: #### C BC, ADIFF, ANEU, LIP, CMP, GFR, PBNP, TROPHS #### [place] [address] First Test No [facility] ([place]) Comment on above: Performed By: #### C BC, ADIFF, ANEU, LIP, CMP, GFR, PBNP, TROPHS #### [place] [address] Hospitalized No [facility] ([place]) Comment on above: Performed By: #### C BC, ADIFF, ANEU, LIP, CMP, GFR, PBNP, TROPHS #### [place] [address] ICU No [facility] ([place] Comment on above: Performed By: #### C BC, ADIFF, ANEU, LIP, CMP, GFR, PBNP, TROPHS #### [place] [address] Not Normal [facility] ([place]) Comment on above: Performed By: #### C BC, ADIFF, ANEU, LIP, CMP, GFR, PBNP, TROPHS #### [address] [address] Resides in Congregate Care Setting No Normal [facility] ([place]) Comment on above: Performed By: #### C BC, ADIFF, ANEU, LIP, CMP, GFR, PBNP, TROPHS #### [address] [address] SARS-CoV-2 (COVID-19) RNA SHAI+probe Ql (Unsp spec) Negative Normal Negative [facility] ([place]) Comment on above: Performed By: #### C BC, ADIFF, ANEU, LIP, CMP, GFR, PBNP, TROPHS #### [place] [address] SARS-CoV-2 (COVID-19) RNA SHAI+probe Ql (Unsp spec) Normal [facility] ([place]) Comment on above: Result Comment: Nega tive [...] ANEU, LIP, CMP, GFR, PBNP, TROPHS #### [address] [address] Symptomatic as Defined by CDC Yes Normal [facility] ([place]) Comment on above: Performed By: #### C BC, ADIFF, ANEU, LIP, CMP, GFR, PBNP, TROPHS #### [place] [address] [place], [place] [address] CT CHEST/ABDOMEN/PELVIS W/CO NTRASTon 08-09-2021 CT CHEST/ABDOMEN/PELVIS [...] 08/09/2021 4:05:06 AM Ordering Provider: PHUONG [facility]) DIMERon 08-09-2021 D-Dimer 535 ng/mL D-DU High 0-230 [facility] ([place]) Comment on above: Result Comment: The result [...] ANEU, LIP, CMP, GFR, PBNP, TROPHS #### [facility] [address] [place], [place] [address] LABORATORYOrdered By: Jocelyn Lopez on 08-09-2021 Blood Glucose Testing Reason Routine (08/09/21 8:37 PM) [facility] Glucose [Mass/Vol] 168 mg/dL Invalid Interpretation Code 70 - 110 mg/dL [facility] LABORATORYOrdered By: Jag Palencia on 08-09-2021 Glucose [Mass/Vol] 181 mg/dL Invalid Interpretation Code 70 - 110 mg/dL [facility] LABORATORYOrdered By: Alvina Hernandez on 08-09-2021 Albumin [...] TO INTENSIVE CARE UNIT FOR CONDITION OF INTEREST:FIND:PT:^MERAE NT:ORD: No (08/09/21 1:40 AM) Invalid Interpretation [...] AO ADM SS EMPLOYED IN A HEALTHCARE SETTING:FIND:PT:^PATIEN T:ORD: No (08/09/21 1:40 AM) Invalid [...] Heme SS RESIDES IN A CONGREGATE CARE SETTING:FIND:PT:^GELY T:ORD: No (08/09/21 1:40 AM) Invalid [...] 08-09-2021 Lipase Level 181 U/L Normal 73-393 [facility] ([place]) Comment on above: Performed By: #### C BC, ADIFF, ANEU, LIP, CMP, GFR, PBNP, TROPHS #### [address] [id number] PBNPon 08-09-2021 Natriuretic peptide B (Bld) [Mass/Vol] 7070 pg/mL High 0-125 [facility] ([place]) Comment on above: Result Comment: NT-p roBNP results of less than 300 pg/mL effectively rules out acute congestive heart failure with 99% negative predictive value. Performed By: #### C BC, ADIFF, ANEU, LIP, CMP, GFR, PBNP, TROPHS #### [place] [address] PREGUon 08-09-2021 HCG ( test) Ql (U) Negative Normal [facility] ([place]) Comment on above: Performed By: #### U A, PREGU, UAMICAO #### [place] [address] test (u) int Not detected Invalid Interpretation Code [facility] ([place]) Comment on above: Performed By: #### U A, PREGU, UAMICAO #### [address] [id number] TROPHSon 08-09-2021 Troponin I High Sensitivity 55.7 ng/L High 0.0-51.4 [facility] ([place]) Comment on above: Performed By: #### C BC, ADIFF, ANEU, LIP, CMP, GFR, PBNP, TROPHS #### [address] [id number] Troponin I High Sensitivity 53.7 ng/L High 0.0-51.4 [facility] ([place]) Comment on above: Performed By: #### C BC, ADIFF, ANEU, LIP, CMP, GFR, PBNP, TROPHS #### [address] [address] Troponin I High Sensitivity 56.2 ng/L High 0.0-51.4 [facility] ([place]) Comment on above: Performed By: #### C BC, ADIFF, ANEU, LIP, CMP, GFR, PBNP, TROPHS #### [address] [address] UAon 08-09-2021 Color (U) Dark yellow Normal [facility] ([place]) Comment on above: Performed By: #### U A, PREGU, UAMICAO #### [place] [address] Glucose (U) [Mass/Vol] 100 mg/dL Abnormal Negative [facility] ([place]) Comment on above: Performed By: #### U A, PREGU, UAMICAO #### [place] [address] Ketones Ql (U) Negative Normal Negative [facility] ([place]) Comment on above: Performed By: #### U A, PREGU, UAMICAO #### [place] [address] UA Appear Clear Normal Clear [facility] ([place]) Comment on above: Performed By: #### U A, PREGU, UAMICAO #### [address] [address] UA Bili Small Abnormal Negative [facility] ([place]) Comment on above: Performed By: #### U A, PREGU, UAMICAO #### [address] [address] UA Blood Trace Abnormal Negative [facility] ([place]) Comment on above: Performed By: #### U A, PREGU, UAMICAO #### [place] [id number] UA Leuk Est Trace Abnormal Negative [facility] ([place]) Comment on above: Performed By: #### U A, PREGU, UAMICAO #### [place] [address] UA Nitrite Negative Normal Negative [facility]) Comment on above: Performed By: #### U A, PREGU, UAMICAO #### [address] [address] UA pH 5.5 Normal 5.0 - 8.0 [facility] ([place]) Comment on above: Performed By: #### U A, PREGU, UAMICAO #### [address] [address] UA Protein >=300 Abnormal Negative [facility] ([place]) Comment on above: Performed By: #### U A, PREGU, UAMICAO #### [address] [address] UA Spec Grav >=1.030 Abnormal 1.015-1.025 [facility] ([place]) Comment on above: Performed By: #### U A, PREGU, UAMICAO #### [address] [address] UA Specimen Type Clean Catch Normal [facility] ([place]) Comment on above: Performed By: #### U A, PREGU, UAMICAO #### [address] [address] UA Urobilinogen 1.0 E.U./dL Normal 0.2-1.0 [facility] ([place]) Comment on above: Performed By: #### U A, PREGU, UAMICAO #### [address] [address] XR CHEST 1 VIEWon 08-09-2021 XR CHEST [...] Date: 08/09/2021 2:20:26 AM Ordering Provider: PHUONG Casas [facility] ([place]) Vital Signs Date Time Vital Sign Value Performing Clinician Dayron craven 07-14-2025 12:05-0400 Diastolic blood pressure 75 mm[Hg] Unique Hammond MD Work Phone: [facility] [employer] 07-14-2025 12:05-0400 Heart rate 83 /min Unique Hammond MD Work Phone: [facility] [employer] 07-14-2025 12:05-0400 Respiratory rate 20 /min Unique Hammond MD Work Phone: [facility] [employer] 07-14-2025 12:05-0400 SaO2% (BldA) [Mass fraction] 96 % Unique Hammond MD Work Phone: [facility] [employer] 07-14-2025 12:05-0400 Systolic blood pressure 155 mm[Hg] Unique Hammond MD Work Phone: [facility] [employer] 07-14-2025 10:15-0400 Body temperature 97.9 [degF] Unique Hammond MD Work Phone: [facility] [employer] 07-14-2025 10:00-0400 Body height 160 cm Unique Hammond MD Work Phone: [facility] [employer] 07-14-2025 10:00-0400 Body mass index (BMI) [Ratio] 34.01 kg/m2 Unique Hammond MD Work Phone: [facility] [employer] 07-14-2025 10:00-0400 Body weight 87.09 kg Unique Hammond MD Work Phone: [facility] [employer] 07-09-2025 12:26-0400 Body temperature 97.8 [degF] Luz FERNANDEZ Work Phone: [facility] 07-09-2025 12:26-0400 Diastolic blood pressure 78 mm[Hg] Luz Mera [employer] Work Phone: [facility] 07-09-2025 12:26-0400 Heart rate 64 /min Luz Mera [employer] Work Phone: [facility] 07-09-2025 12:26-0400 Respiratory rate 18 /min Luz Mera [employer] Work Phone: [facility] 07-09-2025 12:26-0400 SaO2% (BldA) [Mass fraction] 99 % Luz Mera [employer] Work Phone: [facility] 07-09-2025 12:26-0400 Systolic blood pressure 134 mm[Hg] Luz Mera [employer] Work Phone: [facility] 07-09-2025 09:02-0400 Body height 160.02 cm Luz Mera [employer] Work Phone: [facility] 07-09-2025 09:02-0400 Body mass index (BMI) [Ratio] 35.3 kg/m2 Luz Mera [employer] Work Phone: [facility] 07-09-2025 09:02-0400 Body weight 90.4 kg Luz Mera [employer] Work Phone: [facility] 04-02-2024 07:12-0400 Body temperature 98.4 [degF] Mateusz Ruff MD [facility] Phone: [facility] 04-02-2024 07:12-0400 Diastolic blood pressure 73 mm[Hg] Mateusz Ruff MD Work Phone: [facility] 04-02-2024 07:12-0400 Heart rate 60 /min Mateusz Ruff MD Work Phone: [facility] 04-02-2024 07:12-0400 Respiratory rate 17 /min Mateusz Ruff MD Work Phone: [employer] 04-02-2024 07:12-0400 SaO2% (BldA) [Mass fraction] 99 % Mateusz Ruff MD Work Phone: [employer] 04-02-2024 07:12-0400 Systolic blood pressure 149 mm[Hg] Mateusz Ruff MD Work Phone: [employer] 04-01-2024 10:21-0400 Body height 162.6 cm Mateusz Ruff MD Work Phone: [employer] 04-01-2024 10:21-0400 Body mass index (BMI) [Ratio] 40.68 kg/m2 Mateusz Ruff MD Work Phone: [employer] 04-01-2024 10:21-0400 Body weight 107.5 kg Mateusz Ruff MD Work Phone: [employer] 03-27-2024 15:33-0400 Body temperature 97.2 [degF] Jase Olsono DO Work Phone: [employer] 03-27-2024 15:33-0400 Diastolic blood pressure 79 mm[Hg] Jase Olsono DO Work Phone: [employer] 03-27-2024 15:33-0400 Heart rate 83 /min Jase Olsono DO Work Phone: [employer] 03-27-2024 15:33-0400 Respiratory rate 18 /min Jase Myersungo DO Work Phone: [employer] 03-27-2024 15:33-0400 SaO2% (BldA) [Mass fraction] 95 % Jase Myersungo DO Work Phone: [employer] 03-27-2024 15:33-0400 Systolic blood pressure 143 mm[Hg] Jase Zavalatryazungo DO Work Phone: [employer] 03-27-2024 03:42-0400 Body mass index (BMI) [Ratio] 36.43 kg/m2 Jase Zazueta [facility] Work Phone: [facility] 03-27-2024 03:42-0400 Body weight 90.36 kg Jase [facility]azueta [facility] Work Phone: [facility] 03-18-2024 12:33-0400 Body height 157.5 cm Jase Zazueta [facility] Work Phone: [facility] 09-16-2023 07:39-0500 Diastolic blood pressure 96 mm[Hg] [facility] 09-16-2023 07:39-0500 Heart rate 97 /min [facility] 09-16-2023 07:39-0500 Systolic blood pressure 166 mm[Hg] [facility] 09-16-2023 05:48-0500 Body temperature 96.6 [degF] [facility] 09-16-2023 05:48-0500 Respiratory rate 18 /min [facility] 09-16-2023 05:48-0500 SaO2% (BldA) [Mass fraction] 98 % [facility] 09-16-2023 05:46-0500 Body height 160.02 cm [facility] 09-16-2023 05:46-0500 Body mass index (BMI) [Ratio] 38.5 kg/m2 [facility] 09-16-2023 05:46-0500 Body weight 98.7 kg [facility] 09-14-2023 03:13-0500 Diastolic blood pressure 113 mm[Hg] [facility] 09-14-2023 03:13-0500 Heart rate 108 /min [facility] 09-14-2023 03:13-0500 Respiratory rate 15 /min [facility] 09-14-2023 03:13-0500 SaO2% (BldA) [Mass fraction] 96 % [facility] 09-14-2023 03:13-0500 Systolic blood pressure 198 mm[Hg] [facility] 09-14-2023 01:45-0500 Body mass index (BMI) [Ratio] 37.8 kg/m2 [facility] 09-14-2023 01:45-0500 Body temperature 96.7 [degF] [facility] 09-14-2023 01:45-0500 Body weight 100.1 kg [facility] 04-05-2022 21:53-0400 Body temperature 97.7 [degF] Simpson MD Work Phone: [facility] 04-05-2022 21:53-0400 Diastolic blood pressure 73 mm[Hg] Simpson MD Work Phone: [facility] 04-05-2022 21:53-0400 Heart rate 74 /min Simpson MD Work Phone: [facility] 04-05-2022 21:53-0400 Respiratory rate 18 /min Simpson MD Work Phone: [facility] 04-05-2022 21:53-0400 SaO2% (BldA) [Mass fraction] 93 % Simpson MD Work Phone: [facility] 04-05-2022 21:53-0400 Systolic blood pressure 139 mm[Hg] Simpson MD Work Phone: [facility] 04-05-2022 05:45-0400 Body mass index (BMI) [Ratio] 37.02 kg/m2 Simpson MD Work Phone: [facility] 04-05-2022 05:45-0400 Body weight 94.8 kg Simpson MD Work Phone: [facility] 04-03-2022 05:13-0400 Body height 160 cm Simpson MD Work Phone: [facility] 08-13-2021 12:34-0500 Body temperature 98.06 [degF] DR YAMILETH NOVOA MD [facility] 08-13-2021 12:34-0500 Diastolic blood pressure 82 mm[Hg] DR YAMILETH NOVOA MD [facility] 08-13-2021 12:34-0500 Heart rate 67 /min DR YAMILETH NOVOA MD [facility] 08-13-2021 12:34-0500 Mean blood pressure 98 mm[Hg] DR YAMILETH NOVOA MD [address] [place] [address] 08-13-2021 12:34-0500 Respiratory rate 18 /min DR YAMILETH NOVOA MD [facility] 08-13-2021 12:34-0500 Systolic blood pressure 130 mm[Hg] DR YAMILETH NOVOA MD [address] [place] [address] 08-13-2021 08:22-0500 Diastolic blood pressure 94 mm[Hg] DR YAMILETH NOVOA MD [facility] 08-13-2021 08:22-0500 Heart rate 80 /min DR YAMILETH NOVOA MD [facility] 08-13-2021 08:22-0500 Mean blood pressure 113 mm[Hg] DR YAMILETH NOVOA MD [facility] 08-13-2021 08:22-0500 Respiratory rate 18 /min DR YAMILETH NOVOA MD [facility] 08-13-2021 08:22-0500 Systolic blood pressure 150 mm[Hg] DR YAMILETH NOVOA MD [facility] 08-13-2021 05:35-0500 Body temperature 98.42 [degF] DR YAMILETH NOVOA MD [facility] 08-13-2021 05:35-0500 Diastolic blood pressure 76 mm[Hg] DR YAMILETH NOVOA MD [facility] 08-13-2021 05:35-0500 Heart rate 82 /min DR YAMILETH NOVOA MD [address] [place] [address] 08-13-2021 05:35-0500 Mean blood pressure 96 mm[Hg] DR YAMILETH NOVOA MD [facility] 08-13-2021 05:35-0500 Respiratory rate 18 /min DR YAMLIETH NOVOA MD [facility] 08-13-2021 05:35-0500 Systolic blood pressure 136 mm[Hg] DR YAMILETH NOVOA MD [address] [place] [address] 08-12-2021 22:26-0500 Body temperature 98.42 [degF] DR YAMILETH NOVOA MD [facility] 08-12-2021 18:14-0500 Body temperature 98.6 [degF] DR YAMILETH NOVOA MD [address] [place] [address] 08-12-2021 02:49-0500 Reason For Taking VItal Signs DR YAMILETH NOVOA MD [facility] 08-11-2021 22:31-0500 Heart rate 86 /min DR YAMILETH NOVAO MD [facility] 08-11-2021 19:33-0500 Reason For Taking VItal Signs DR YAMILETH NOVOA MD [address] [place] [address] 08-11-2021 19:16-0500 Reason For Taking VItal Signs DR YAMILETH NOVOA MD [facility] 08-11-2021 10:08-0500 SaO2% (BldA) [Mass fraction] 89.2 % DR YAMILETH NOVOA MD [facility] 08-10-2021 23:05-0500 Heart rate 99 /min DR YAMILETH NOVOA MD [facility] 08-10-2021 19:43-0500 Heart rate 103 /min DR YAMILETH NOVOA MD [facility] 08-10-2021 11:46-0500 Body height [address] YAMILETH NOVOA MD [facility] 08-10-2021 11:46-0500 Body weight [address] YAMILETH NOVOA MD [facility] 08-10-2021 11:46-0500 Body weight 41.02 kg/m2 DR YAMILETH NOVOA MD [facility] 08-10-2021 10:16-0500 Diastolic blood pressure 96 mm[Hg] MARTA 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 [facility] 08-10-2021 10:16-0500 Heart rate 80 /min MARTA SERGIO 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 [facility] 08-10-2021 10:16-0500 Respiratory rate 20 /min 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 [facility] 08-10-2021 10:16-0500 Systolic blood pressure 152 mm[Hg] [employer]A 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 [facility] 08-10-2021 08:19-0500 Body temperature 98.6 [degF] [employer]A 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 [facility] 08-10-2021 08:19-0500 Diastolic blood pressure 93 mm[Hg] 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 [facility] 08-10-2021 08:19-0500 Heart rate 104 /min 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 [facility] 08-10-2021 08:19-0500 Mean blood pressure 121 mm[Hg] 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 [facility] 08-10-2021 08:19-0500 Reason For Taking VItal Signs 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 [facility] 08-10-2021 08:19-0500 Respiratory rate 20 /min 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 [facility] 08-10-2021 08:19-0500 Systolic blood pressure 176 mm[Hg] [employer]A 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 [facility] 08-10-2021 04:00-0500 Body temperature 98.24 [degF] [employer]A 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 [facility] 08-10-2021 04:00-0500 Diastolic blood pressure 112 mm[Hg] MARTA REAELY 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 [facility] 08-10-2021 04:00-0500 Heart rate 78 /min 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 [facility] 08-10-2021 04:00-0500 Mean blood pressure 135 mm[Hg] 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 [facility] 08-10-2021 04:00-0500 Reason For Taking VItal Signs 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 [facility] 08-10-2021 04:00-0500 Systolic blood pressure 181 mm[Hg] M[employer]A 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 [facility] 08-10-2021 00:18-0500 Body temperature 98.24 [degF] [employer]A 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 [facility] 08-10-2021 00:18-0500 Mean blood pressure 122 mm[Hg] [employer]A 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 [facility] 08-10-2021 00:18-0500 Reason For Taking VItal Signs MARTA REAELY 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 [facility] 08-09-2021 05:42-0500 Body height 160 cm 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 [facility] 08-09-2021 05:42-0500 Body weight 105 kg [employer]A 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 [facility] 08-09-2021 05:42-0500 Body weight 41.02 kg/m2 MARTA REAELY 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 [facility] 08-09-2021 01:55-0500 Heart rate 90 /min MARTA REAELY 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 [facility] 08-09-2021 01:49-0500 Heart rate 124 /min MARTA REAELY 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 [facility] 08-09-2021 01:33-0500 Body height 160 cm MARTA REAELY 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 [facility] 08-09-2021 01:33-0500 Body weight 104.5 kg MARTA REAELY 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 [facility] 08-09-2021 01:33-0500 Heart rate 124 /min MARTA REAELY 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 [facility] Encounters Encounter Date Encounter Type Care Provider Facility Start: 08-05-2025 Evaluation and manag ement of inpatient NEUROLOGY-STROKE ALERT CONSULT Facility:[facility] Start: 08-05-2025 End: 08-05-2025 Emergency department patient visit Luz Mera Facility:[facility] Start: 08-05-2025 End: 08-05-2025 ambulatory [facility] Start: 07-23-2025 End: 07-23-2025 Emergency department patient visit Luz Mera Facility:[facility] Start: 07-14-2025 End: 07-14-2025 ambulatory RIMA HAMMOND [facility] Start: 07-14-2025 End: 07-14-2025 Subsequent hospital visit by physician Rima Hammond MD Work Phone: [facility] [place] Comment on above: Colon cancer screeni ng Start: 07-09-2025 End: 07-09-2025 Emergency department patient visit Dr. Peter Thompson DO -Emergency Department Work Phone: Start: 07-01-2025 End: 07-01-2025 ambulatory [facility] Start: 06-30-2025 End: [facility] Start: 05-27-2025 End: 05-27-2025 [facility] Start: 05-27-2025 End: 05-27-2025 Subsequent hospital visit by physician [facility] [facility] Comment on above: Encounter for loop r ecorder check (Primary Dx) Start: 04-22-2025 End: 04-22-2025 [facility] Start: 04-22-2025 End: 04-22-2025 Subsequent hospital visit by physician [facility] [employer] [facility] Comment on above: Arrived Start: 03-18-2025 End: 03-18-2025 [facility] Start: 03-18-2025 End: 03-18-2025 Subsequent hospital visit by physician [facility] Comment on above: Arrived Start: 02-11-2025 End: 02-11-2025 [facility] Start: 02-11-2025 End: 02-11-2025 Subsequent hospital visit by physician [facility] [facility] Comment on above: Arrived Start: 01-20-2025 End: 01-20-2025 ambulatory BAIRON BUCHANAN Facility:[facility] Start: 01-07-2025 End: 01-07-2025 ambulatory [facility] Start: 01-07-2025 End: 01-07-2025 Subsequent hospital visit by physician [facility] Comment on above: Arrived Start: 12-03-2024 End: 12-03-2024 ambulatory [facility] Start: 12-03-2024 End: 12-03-2024 Subsequent hospital visit by physician [facility] Comment on above: Arrived Start: 11-02-2024 End: 11-02-2024 Emergency department patient visit Luz Mera Facility:[facility] Start: 10-29-2024 End: 10-29-2024 ambulatory [facility] Start: 10-29-2024 End: 10-29-2024 Subsequent hospital visit by physician [facility] Comment on above: Arrived Start: 08-20-2024 End: 08-20-2024 ambulatory [facility] Start: 08-20-2024 End: 08-20-2024 Subsequent hospital visit by physician [facility] Start: 08-08-2024 End: 08-08-2024 Emergency department patient visit No Primary Care Physician Facility:[facility] Start: 06-11-2024 End: 06-11-2024 Subsequent hospital visit by physician [facility] Comment on above: Arrived Start: 03-29-2024 End: 04-02-2024 Evaluation and management of inpatient Mateusz Ruff MD Work Phone: [facility] [employer] Comment on above: Sepsis secondary to [...] 03-27-2024 Evaluation and management of inpatient Jase Zazueta DO Work Phone: [facility] Start: 09-16-2023 End: 09-16-2023 Emergency department patient visit [facility]gency Department Work Phone: Start: 09-14-2023 End: 09-14-2023 Emergency department patient visit [facility] Work Phone: Start: 12-16-2022 End: 12-18-2022 Subsequent hospital visit by physician Kareem Ct Room 1 [facility] CT Scan Comment on above: Personal history of tobacco use Start: 04-03-2022 End: 04-06-2022 Evaluation and management of inpatient Corbett MD Work Phone: [facility] 1W Telemetry Comment on above: New onset of congest jorge heart failure (HCC) (Primary Dx); Essential hypertension; Type 2 diabetes mellitus with hyperglycemia, unspecified whether retirement insulin use (HCC); Near syncope; H/O noncompliance with medical treatment, presenting hazards to health; Tobacco dependence Start: 08-10-2021 End: 08-13-2021 Evaluation and management of inpatient DR YAMILETH NOVOA MD [facility] Start: 08-09-2021 End: 08-10-2021 Evaluation and management of inpatient MARTA [employer]ILL 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 [facility] Procedures Date Procedure Procedure Detail Performing Clinician Start: 07-14-2025 End: 07-14-2025 Colonoscopy Rima Hammond MD Work Phone: Start: 07-14-2025 Gluc bld gluc mntr dev cleared fda spec home use Unknown Provider Result Start: 07-09-2025 Urnls dip stick/tablet reagent auto microscopy Luz Mera [employer] Work Phone: Start: 07-09-2025 CT of head without contrast Luz Mera [employer] Work Phone: Start: 07-09-2025 Estimated creatinine clearance Luz Mera [employer] Work Phone: Start: 04-02-2024 Gluc bld gluc mntr dev cleared fda spec home use Unknown Provider Result Start: 04-02-2024 Rhythm ecg 1-3 leads w/interpretation & report Unknown Provider Result Start: 04-02-2024 Gluc bld gluc mntr dev cleared fda spec home use Unknown Provider Result Start: 04-02-2024 Basic metabolic 2000 panel - Serum or Plasma Sal Ledesmar DO Work Phone: Start: 04-02-2024 Blood count [...] Phone: Start: 04-01-2024 Percutaneous coronary intervention Fara Newman DO Work Phone: Start: 04-01-2024 Echo transesophag [...] 03-30-2024 Us retroperitoneal real time w/image limited Quique Nugent MD Work Phone: Start: 03-30-2024 Rhythm [...] Quique Nugent MD Work Phone: Start: 03-30-2024 MPO/VA-3(ANCA) ABS Kamron Cool MD Work Phone: Start: 03-30-2024 Thromboplastin inhibition tissue Kamron Cool MD Work Phone: Start: 03-30-2024 Rhythm ecg 1-3 leads w/interpretation & report Unknown Provider Result Start: 03-29-2024 Acute hepatitis panel Quique Nugent MD Work Phone: Start: 03-29-2024 Assay of troponin quantitative Fara Newman DO Work Phone: Start: 03-29-2024 Gluc bld gluc mntr dev cleared fda spec home use Unknown Provider Result Start: 03-29-2024 Gluc bld gluc mntr dev cleared fda spec home use Unknown Provider Result Start: 03-29-2024 Ecg routine ecg w/least 12 lds w/i&r Fara Newman DO Work Phone: Start: 03-29-2024 End: 03-29-2024 [...] Start: 03-29-2024 Assay of troponin quantitative Meg Matamoros PA-C Work Phone: Start: 03-29-2024 End: 03-29-2024 Ct angiography head w/contrast/noncontrast Meg Matamoros PA-C Work Phone: Start: 03-29-2024 Ct angiography neck w/contrast/noncontrast Meg Matamoros PA-C Work Phone: Start: 03-29-2024 Bacteria identified in Blood by Culture Meg Matamoros PA-C Work Phone: Start: 03-29-2024 End: 03-29-2024 Culture bacterial quanttative colony count urine Meg RUTHERFORD-C Work Phone: Start: 03-29-2024 Ecg routine ecg w/least 12 lds i&r only Meg Matamoros SANGEETA-C Work Phone: Start: 03-29-2024 Respiratory pathogens DNA and RNA panel - Nasopharynx by SHAI with non-probe detection Meg Matamoros SANGEETA-C Work Phone: Start: 03-29-2024 Radiologic exam chest single view Meg Matamoros SANGEETA-C Work Phone: Start: 03-29-2024 POCT VENOUS Quique Nugent MD Work Phone: Start: 03-29-2024 End: 03-29-2024 Comprehensive metabolic panel Meg Matamoros SANGEETA-C Work Phone: Start: 03-29-2024 End: 03-29-2024 LACTATE, SEPSIS Meg Fuentes Saturnino RUTHERFORD-C Work Phone: Start: 03-29-2024 Assay of ethanol Meg Fuentes Saturnino RUTHERFORD-C Work Phone: Start: 03-29-2024 Drug tst prsmv instrmnt chem analyzers pr date Meg Fuentes Saturnino RUTHERFORD-C Work Phone: Start: 03-29-2024 Urinalysis microscopic only Meg Alvarez jonathon RUTHERFORD-C Work Phone: Start: 03-29-2024 Urnls dip stick/tablet rgnt auto w/o microscopy Meg Fuentes Saturnino RUTHERFORD-C Work Phone: Start: 03-27-2024 Glucose quantitative blood [...] 03-26-2024 Us abdominal real time w/image documentation Mostafa W Alsabbagh DO Work Phone: Start: 03-26-2024 Glucose quantitative blood xcpt reagent strip Marily D Zaugg DO Work Phone: Start: 03-26-2024 Comprehensive metabolic panel Soumacarolynnt Anthony DO Work Phone: Start: 03-25-2024 Glucose quantitative [...] Work Phone: Start: 03-23-2024 Comprehensive metabolic panel Souadint Anthony DO Work Phone: Start: 03-23-2024 Manual Differential panel - Blood Souadint Anthony DO Work Phone: Start: 03-22-2024 Glucose quantitative blood xcpt reagent strip Justine Socrates Godwin MD Work Phone: Start: 03-22-2024 Glucose quantitative blood xcpt reagent strip Justine Socrates Godwin MD Work Phone: Start: 03-22-2024 Glucose quantitative blood xcpt reagent strip Justine Socrates Godwin MD Work Phone: Start: 03-22-2024 Glucose quantitative blood xcpt reagent strip Justine Godwin MD Work Phone: Start: 03-22-2024 Comprehensive metabolic panel Souadint Anthony DO Work Phone: Start: 03-21-2024 Glucose quantitative blood xcpt reagent strip Justine Godwin MD Work Phone: Start: 03-21-2024 Glucose quantitative blood xcpt reagent strip Justine Godwin MD Work Phone: Start: 03-21-2024 Glucose quantitative blood xcpt reagent strip Justine Godwin MD Work Phone: Start: 03-21-2024 Glucose quantitative blood xcpt reagent strip Justine Socrates Godwin MD Work Phone: Start: 03-21-2024 Comprehensive metabolic panel Soumajit Anthony DO Work Phone: Start: 03-20-2024 Glucose quantitative blood xcpt reagent strip Justine Godwin MD Work Phone: Start: 03-20-2024 Glucose quantitative blood xcpt reagent strip Justine Godwin MD Work Phone: Start: 03-20-2024 Glucose quantitative blood xcpt reagent strip Justine Godwin MD Work Phone: Start: 03-20-2024 Glucose quantitative blood xcpt reagent strip Justine Godwin MD Work Phone: Start: 03-20-2024 Glucose quantitative blood xcpt reagent strip Justine Godwin MD Work Phone: Start: 03-20-2024 Comprehensive metabolic panel Christiana Cruz DO Work Phone: Start: 03-19-2024 Mra head [...] Work Phone: Start: 03-19-2024 Comprehensive metabolic panel Christiana Cruz DO Work Phone: Start: 03-18-2024 Glucose quantitative blood xcpt reagent strip Justine Godwin MD Work Phone: Start: 03-18-2024 History of placement of stent for coronary artery disease Jase Luciajuanajanette DO Work Phone: Start: 03-18-2024 Glucose quantitative blood xcpt reagent strip Justine Godwin MD Work Phone: Start: 03-18-2024 Ct head/brain w/o contrast material Ace Blakely MD Work Phone: Start: 03-18-2024 Glucose quantitative blood xcpt reagent strip Justine Godwin MD Work Phone: Start: 03-18-2024 Comprehensive metabolic panel Christiana Cruz DO Work Phone: Start: 03-17-2024 Glucose quantitative blood xcpt reagent strip Jase Olsono DO Work Phone: Start: 03-17-2024 Glucose quantitative blood xcpt reagent strip Jase Olsono DO Work Phone: Start: 03-17-2024 Glucose quantitative blood xcpt reagent strip Jase Olsono DO Work Phone: Start: 03-17-2024 TTE w or wo fol wcon,Doppler Marah Darne DO Work Phone: Start: 03-17-2024 Glucose quantitative blood xcpt reagent strip Jase Olsono DO Work Phone: Start: 03-17-2024 Comprehensive metabolic panel Christiana Cruz DO Work Phone: Start: 03-16-2024 Glucose quantitative blood xcpt reagent strip Jase Olsono DO Work Phone: Start: 03-16-2024 Glucose quantitative blood xcpt reagent strip Jase Olsono DO Work Phone: Start: 03-16-2024 Ecg routine ecg w/least 12 lds trcg only w/o i&r Festus Han MD Work Phone: Start: 03-16-2024 Cardiac catheterization study Maximo Max MD Work Phone: Start: 03-16-2024 End: 03-16-2024 POCT ACT Jase Zavalatrolungo D O Work Phone: Start: 03-16-2024 End: 03-16-2024 POCT ACT Jase Lucastrolungo D O Work Phone: Start: 03-16-2024 Glucose quantitative blood xcpt reagent strip Jase Zazueta DO Work Phone: Start: 03-16-2024 Hemoglobin glycosylated a1c Bhavana adam MD Work Phone: Start: 03-16-2024 Lipid panel Marah Mercedes DO Work Phone: Start: 03-16-2024 Manual differential performed [Presence] in Blood Vicki Francis DO Work Phone: Start: 03-16-2024 Comprehensive metabolic panel Christiana Cruz DO Work Phone: Start: 03-15-2024 End: 03-15-2024 Comprehensive metabolic panel Christiana Cruz DO Work Phone: Start: 03-15-2024 Ecg routine ecg w/least 12 lds trcg only w/o i&r Christiana Cruz DO Work Phone: Start: 03-15-2024 Radiologic exam chest single view Christiana Cruz DO Work Phone: Start: 09-16-2023 Computed tomography of abdomen and pelvis with contrast Start: 12-16-2022 CT LUNG SCREENING Luz Mera 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 - 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 Work Phone: Start: 04-06-2022 Gluc bld gluc mntr dev cleared fda spec home use Unknown Provider Result Start: 04-06-2022 End: 04-06-2022 Basic metabolic panel calcium total Arabella Stone DO Work Phone: Start: 04-05-2022 Gluc bld [...] Result Start: 04-04-2022 Urinalysis microscopic only Arabella Yumiko candelario DO Work Phone: Start: 04-04-2022 Urnls [...] MD Work Phone: Start: 04-03-2022 Iaadiadoo influenza De Judy Pompa MD Work Phone: Start: 04-03-2022 Radiologic exam chest single view Corbett MD Work Phone: Start: 04-03-2022 Natriuretic peptide Corbett MD Work Phone: Start: 04-03-2022 Ecg routine ecg w/least 12 lds w/i&r Mel RUTHERFORD Work Phone: Cholecstot/cholecsto st w/expl drg/rmvl st1 spx MARTA SERGIO 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 History of placement of stent for coronary artery disease S/P coronary artery stent placement Jase Zazueta DO Work Phone: Plan of Treatment Date Care Activity Detail Author Start: 07-14-2035 Screening for malignant neoplasm of colon [facility] Start: 2031 [facility] Start: 06-30-2026 Screening for malignant neoplasm of lung Lung Cancer Screening &/or Counseling [facility] Start: 06-18-2026 GFR test (Diabetes, CKD 3-4, OR last GFR 15-59) GFR test (Diabetes, CKD 3-4, OR last GFR 15-59) [facility] Start: 06-18-2026 Lipid panel Lipids [facility] Start: 02-20-2026 GFR test (Diabetes, CKD 3-4, OR last GFR 15-59) GFR test (Diabetes, CKD 3-4, OR last GFR 15-59) [facility] Start: 01-21-2026 GFR test (Diabetes, CKD 3-4, OR last GFR 15-59) GFR test (Diabetes, CKD 3-4, OR last GFR 15-59) [facility] Start: 12-12-2025 Depression Monitoring Depression Monitoring [employer] Start: 09-17-2025 Hemoglobin A1c measurement A1C test (Diabetic or Prediabetic) [facility] Start: 09-10-2025 End: 09-10-2025 Patient encounter procedure 09/10/2025 2:30 PM EST [facility] [address] [place] [address] Luz Mera APRN - CNP [address] [facility] [place] [address] 3 month follow up [facility] Comment on above: 3 month follow up Start: 08-30-2025 Screening for malignant neoplasm of breast Breast cancer screen [facility] Start: 08-20-2025 End: 08-20-2025 Patient encounter procedure 08/20/2025 11:00 AM EST [facility] [address] [place] [address] Catie Moreno DO [address] [place] [address] Specialty Services Required [facility] Comment on above: Specialty Services Required Start: 07-14-2025 End: 07-14-2025 Colon ca scrn not hi rsk ind COLORECTAL CANCER SCREENING, NOT HIGH RISK Colon cancer screening 07/14/2025 11:26 AM EDT [facility] Start: 07-09-2025 [facility] Start: 05-28-2025 End: 05-28-2026 PACEMAKER EVALUATION PACEMAKER EVALUATION Cardiac Services Routine Encounter for loop recorder check Expected: 05/28/2025, Expires: 05/28/2026 [facility] Comment on above: Expected: 05/28/2025, Expires: Start: 05-26-2025 COVID-19 Vaccine ( season) COVID-19 Vaccine ( season) [facility] Start: 04-25-2025 Influenza vaccination [facility] Start: 04-22-2025 Hemoglobin A1c measurement A1C test (Diabetic or Prediabetic) [facility] Start: 04-02-2025 GFR test (Diabetes, CKD 3-4, OR last GFR 15-59) GFR test (Diabetes, CKD 3-4, OR last GFR 15-59) [facility] Start: 03-30-2025 Lipid panel Lipids [facility] Start: 03-26-2025 Creatinine measurement [facility] Start: 03-26-2025 Potassium measurement [facility] Start: 03-26-2025 [facility] Start: 03-21-2025 Glaucoma screening [facility] Start: 03-20-2025 End: 03-20-2025 Patient encounter procedure 03/20/2025 1:30 PM EDT Office Visit [facility] [address] [place] [address] Luz Mera, TYPE CASTER - 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 [address] [place] [address] 4 week follow up [facility] Comment on above: 4 week follow up Start: 03-17-2025 [facility] Start: 03-16-2025 Hemoglobin A1c measurement [facility] Start: 03-16-2025 Lipid panel [facility] Start: 02-20-2025 End: 02-20-2025 Patient encounter procedure 02/20/2025 1:00 PM EDT Office Visit [facility] [address] [place] [address] Luz Mera, TYPE CASTER - 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 [address] [place] [address] 1-3 months [facility] Comment on above: 1-3 months Start: 01-23-2025 End: 01-23-2025 Patient encounter procedure 01/23/2025 2:00 PM EDT Office Visit [facility] [address] [place] [address] Luz Mera, TYPE CASTER - 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 [address] [place] [address] 1-3 months [facility] Comment on above: 1-3 months Start: 12-12-2024 End: 12-12-2024 Patient encounter procedure 12/12/2024 2:30 PM EDT Office Visit [facility] [address] [place] [address] Luz Mera, TYPE CASTER - 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 [address] [place] [address] Med refills [facility] Comment on above: Med refills Start: 09-25-2024 Annual Wellness Visit (Medicare Advantage) Annual Wellness Visit (Medicare Advantage) [facility] Start: 08-30-2024 Urine screening for protein Diabetic Alb to Cr [facility]ACR) [facility] Start: 06-29-2024 Hemoglobin A1c measurement A1C test (Diabetic or Prediabetic) [facility] Start: 06-06-2024 Screening for malignant neoplasm of lung Lung Cancer Screening &/[facility]ing [facility] Start: 05-26-2024 COVID-19 Vaccine ( season) COVID-19 [facility]ine ( [facility]) [facility] Start: 05-26-2024 COVID-19 Vaccine ( season) COVID-19 Vaccine ( season) [facility] Start: 05-26-2024 [facility] Start: 05-09-2024 End: 05-09-2024 Patient encounter procedure 05/09/2024 10:40 AM EDT [facility] [address] [place] [address] Fara Newman DO [address] [place] [address] 4 WEEK S/P ILR [facility] Comment on above: 4 WEEK S/P ILR Start: 04-25-2024 Influenza vaccination Flu vaccine (#1) [facility] Start: 04-08-2024 End: 04-08-2024 Nursing evaluation of patient and report 04/08/2024 1:00 PM EDT Nurse Only [facility] [address] [place] [address] 1 WEEK STAPLE REMOVAL [facility] Comment on above: 1 WEEK STAPLE REMOVAL Start: 12-17-2023 Screening for malignant neoplasm of lung [facility] [employer] Start: 12-01-2023 Depression Monitoring Depression Monitoring [facility] [employer] Start: 09-25-2023 Annual Wellness Visit (Medicare Advantage) Annual Wellness Visit (Medicare Advantage) [facility] [employer] Start: 09-25-2023 [facility] Start: 09-16-2023 Bacteria identified in Urine by Culture Urine Culture [facility] Start: 09-16-2023 [facility] Start: 09-16-2023 [facility] Start: 08-11-2023 Hemoglobin A1c measurement A1C test (Diabetic or Prediabetic) [facility] Start: 07-13-2023 GFR test (Diabetes, CKD 3-4, OR last GFR 15-59) GFR test (Diabetes, CKD 3-4, OR last GFR 15-59) [facility] Start: 05-26-2023 [facility] Start: 04-25-2023 Diabetic foot examination Diabetic foot exam [facility] Start: 04-21-2023 Lipid panel Lipids [facility] Start: 12-29-2022 End: 12-29-2022 Patient encounter procedure 12/29/2022 Office Visit Cardiology Mel Antonio PA [address] [place] [address] [facility] Start: 12-27-2022 End: 12-27-2022 Patient encounter procedure 12/27/2022 Office Visit Family Medicine Luz Mera, TYPE CASTER - 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 [address] [place] [address] [facility] Start: 10-10-2022 Hemoglobin A1c measurement A1C test (Diabetic or Prediabetic) [facility] Start: 05-26-2022 Influenza vaccination Flu vaccine (#1) [facility] [employer] Start: 04-25-2022 Influenza vaccination Flu vaccine (#1) [facility] [employer] Start: 04-21-2022 End: 04-21-2022 Patient encounter procedure 04/21/2022 Office Visit Cardiology Mel Antonio PA [address] [address] [facility] Start: 04-13-2022 End: 04-13-2022 Patient encounter procedure 04/13/2022 Office Visit Family Medicine Luz Mera, TYPE CASTER - 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 [address] [place] [address] [facility] Start: 2021 Screening for malignant neoplasm of breast Breast cancer screen [facility] [employer] Start: 2021 Screening for malignant neoplasm of lung Low dose CT lung screening [facility] [employer] Start: 2021 Shingles vaccine (1 of 2) Shingles vaccine (1 of 2) [facility] Start: 2021 [facility] Start: 2016 Screening for malignant neoplasm of colon [facility] [employer] Start: 03-13-2016 Lipid panel Lipids [facility] [employer] Start: 2011 Screening for malignant neoplasm of breast [facility] Start: 2001 Screening for malignant neoplasm of cervix [facility] [employer] Start: 1992 Screening for malignant neoplasm of cervix [facility] [employer] Start: 1990 DTaP/Tdap/Td vaccine (1 - Tdap) DTaP/Tdap/Td vaccine (1 - Tdap) [facility] Start: 1990 Hepatitis B vaccine (1 of 3 - 19+ 3-dose series) Hepatitis B vaccine (1 of 3 - 19+ 3-dose series) [facility] Start: 1990 Hepatitis B vaccine (1 of 3 - Risk 3-dose series) Hepatitis B vaccine (1 of 3 - Risk 3-dose series) [facility] Start: 1990 Pneumococcal 50+ years Vaccine (1 of 2 - PCV) Pneumococcal 50+ years Vaccine (1 of 2 - PCV) [facility] Start: 1990 [facility] Start: 1989 Diabetic retinal exam Diabetic retinal exam [facility] Start: 1989 Glaucoma screening Diabetic retinal exam [facility] Start: 1989 Hepatitis C screening [facility] Start: 1989 Urine screening for protein [facility] Start: 1989 [facility] Start: 1983 Depression Monitoring Depression Monitoring [facility] Start: 1983 Depression Screen Depression Screen [facility] Start: 1983 [facility] Start: 1981 Diabetic foot examination [facility] Start: 1981 Preventive dental service [facility] Start: 1977 Pneumococcal 0-64 years Vaccine (1 - PCV) Pneumococcal 0-64 years Vaccine (1 - PCV) [facility] Start: 1977 Pneumococcal 0-64 years Vaccine (1 of 2 - PCV) Pneumococcal 0-64 years Vaccine (1 of 2 - PCV) [facility] Start: 1977 [facility] Start: 1976 COVID-19 Vaccine (1) COVID-19 Vaccine (1) [facility] Start: 1972 [facility] Start: 02-17-1972 COVID-19 Vaccine (#1) COVID-19 Vaccine (#1) [facility] Start: 1971 Hepatitis B vaccine (1 of 3 - 3-dose series) Hepatitis B vaccine (1 of 3 - 3-dose series) [facility] Start: 1971 HIV screening [facility] Start: 1971 Screening for malignant neoplasm of colon [facility] Bacteria # 2 identif ied in Blood by Culture Culture, Blood 2 Microbiology STAT 03/29/2024 8:42 AM EDT [facility] Bacteria identified in Blood by Culture Blood Culture 1 Microbiology STAT 03/29/2024 8:42 AM EDT [employer] Basic metabolic 2000 panel - Serum or Plasma Basic Metabolic Panel Lab Routine Tomorrow AM until discontinued starting 04/06/2022, 1 completed [employer] Work Phone: Comment on above: Tomorrow AM until discontinued starting 04/06/2022, 1 completed End: 04-07-2022 Brain Natriuretic Peptide Brain Natriuretic Peptide Lab Timed One Time for 1 Occurrences starting 04/07/2022 until 04/07/2022 [employer] Work Phone: Comment on above: One Time for 1 Occurrences starting 03/25 until 04/07/2022 End: 04-05-2022 Catheterization and angiography procedure details panel 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 Cardiac Cath Routine One Time for 1 Occurrences starting 04/05/2022 until 04/05/2022 [employer] Phone: Comment on above: One Time for 1 Occurrences starting 03/25 until 04/05/2022 CBC W Auto Different ial panel - Blood CBC with Auto Differential Lab Routine Tomorrow AM until discontinued starting 04/06/2022, 1 completed [employer] Work Phone: Comment on above: Tomorrow AM until discontinued starting 04/06/2022, 1 completed EKG 12 Lead EKG 12 Lead ECG Routine 03/29/2024 6:14 PM EDT [employer] Electrophysiology procedure Electrophysiology procedure CV Electrophysiology Routine Systolic congestive heart failure, unspecified HF chronicity (HCC) 04/01/2024 12:32 PM EDT [employer] Glucose [Mass/volume ] in Serum or Plasma [employer] Work Phone: Comment on above: 4X Daily (AC & HS) until discontinued st arting 04/03/2022 As Needed until disc ontinued starting 04/03/2022 Glucose [Mass/volume ] in Serum or Plasma [employer] Comment on above: 4X Daily (AC & HS) until discontinued st arting 03/29/2024 As Needed until disc ontinued starting 03/29/2024 Glucose [Mass/volume ] in Serum or Plasma POCT glucose Point of Care Testing STAT As Needed until discontinued starting 07/14/2025 [facility] Comment on above: As Needed until discontinued starting Magnesium [Mass/volu me] in Serum or Plasma Magnesium Lab Routine Tomorrow AM until discontinued starting 04/06/2022, 1 completed [employer] Work Phone: Comment on above: Tomorrow AM until discontinued starting 04/06/2022, 1 completed Oxygen therapy [Mini mum Data Set] Initiate Oxygen Therapy Protocol Respiratory Care Routine Daily until discontinued starting 04/03/2022 [employer] Work Phone: Comment on above: Daily until discontinued starting 2021 Oxygen therapy [Mini mum Data Set] Initiate Oxygen Therapy Protocol Respiratory Care Routine As Needed until discontinued starting 04/05/2022 [employer] Work Phone: Comment on above: As Needed until discontinued starting Oxygen therapy [Mini mum Data Set] Initiate Oxygen Therapy Protocol Respiratory Care Routine Daily until discontinued starting 04/05/2022 [employer] Work Phone: Comment on above: Daily until discontinued starting 2021 Oxygen therapy [Mini mum Data Set] Initiate Oxygen Therapy Protocol Respiratory Care Routine Daily until discontinued starting 03/29/2024 [employer] Comment on above: Daily until discontinued starting 2023 Pathology study Surgical Patholo gy Lab Routine Colon cancer screening Release Upon Ordering for 1 Occurrences starting 07/14/2025 [facility] Comment on above: Release Upon Ordering for 1 Occurrences starting 07/14/2025 Patient Education [facility] Work Phone: Patient referral [facility] Work Phone: Percutaneous coronar y intervention Cardiac procedure CV Cardiac Cath Routine Systolic congestive heart failure, unspecified HF chronicity (HCC) 04/01/2024 12:32 PM EDT [employer] End: 07-14-2025 Urine , POCT Urine , POCT Point of Care Testing STAT One Time for 1 Occurrences starting 07/14/2025 until 07/14/2025 [facility] Comment on above: One Time for 1 Occurrences starting 06/26 until 07/14/2025 Payers Date Payer Category Payer Unknown [id number] 2024 Medicare [id number] 2024 Self-pay 2023 Medicare [id number] 2022 Medicare [id number] 2014 Medicaid [id number] 1971 Unknown [id number] 2.16. [id number] 1971 Unknown [id number] 2.16. [id number] 1971 Unknown [id number] 2.16. [id number] 1971 Unknown [id number] 2.16. [id number] 1971 Unknown [id number] 2.16. [id number] 1971 Unknown [id number] 2.16. [id number] 1971 Unknown [id number] 2.16. [id number] 1971 Unknown [id number] 2.16. [id number] 1971 Unknown [id number] 2.16. [id number] 1971 Unknown [id number] 2.16. [id number] 1971 Unknown [id number] 2.16. [id number] 1971 Unknown [id number] 2.16. [id number] 1971 Unknown [id number] 2.16. [id number] Medicare MEDICARE PART A B [id number] Unknown [id number] Unknown [id number] [id number] Unknown [id number] [id number] Unknown [id number] [id number] [id number] Unknown [id number] [id number] [id number] Unknown [id number] [id number] Social History Date Type Detail Facility Start: 08-09-2021 Heavy tobacco smoker (finding) [facility] Start: 1970 Sex Assigned At Female A [facility] Start: 04-03-2022 End: 07-09-2025 Tobacco smoking status MTIS Smokes tobacco daily [employer] Phone: Start: 04-03-2022 End: 07-14-2025 Cigarettes smoked current (pack per day) - Reported 2 [facility] Start: 04-03-2022 End: 12-12-2024 Tobacco use and exposure Smokeless tobacco non-user [employer] Phone: Start: 04-04-2022 End: 07-14-2025 Alcohol intake Lifetime non-drinker (finding) [employer] Phone: Start: 04-03-2022 End: 11-30-2022 History SDOH Alcohol Frequency 1 [employer] Phone: Start: 1970 Sex Assigned At Not on file [facility] [employer] Phone: Start: 03-24-2022 End: 11-30-2022 Exposure to SARS-CoV-2 (event) Not sure [facility] [employer] Work Phone: History of tobacco use Cigarette Smoker [facility] [employer] Phone: Start: 11-30-2022 History SDOH Financial 5 [facility] [employer] Phone: Start: 11-30-2022 History SDOH Transpo rt Non-Med 2 [employer] Phone: Start: 09-16-2023 End: 03-16-2024 Tobacco smoking status NHIS Unknown if ever smoked [facility] Start: 09-07-2013 None [facility] Start: 09-07-2013 Spouse/ Signif icant Other [facility] Start: 09-07-2013 Cigarettes [facility] Start: 03-27-2024 End: 07-14-2025 [facility] [employer] [facility] Has the [employer], [employer], oil, or water company threatened to shut off services in your home in past 12Mo [employer] Within the last year , have you been afraid of your partner or ex-partner? No [place] How often to you hav e a drink containing alcohol? Never [employer] Start: 03-15-2024 Gender identity Identifies as female gender (finding) [employer] (I/We) worried wheth er (my/our) food would run out before (I/we) got money to buy more. Never true [facility] [employer] Start: 11-06-2012 Sex Female (finding) [facility] [employer] Procedure Code Equipment Code Equipment Origin al Text Equipment Identifier Dates [id number] Start: 03-16-2024 [id number] Start: 03-16-2024 Monitor Crd 1.4 Cc 3.4 Gm Insertable Linq - [id number], [id number] FDA Start: 04-01-2024 1 strip by Other route 4 times daily as needed for Other (blood sugar checks) Test 4 times a day & as needed for symptoms of irregular blood glucose. [id number] Start: 02-20-2025 1 each by Does n ot apply route daily [id number] Start: 02-20-2025 [employer] Linq 22 FDA Start: 04-01-2024 Mental Status Date Assessment Result Facility 07-09-2025 Cognitive function Level Of Consciousness Awake [facility] Work Phone: Clinical Notes 08-09-2021 to 07-09-2025 Discharge InstructionsDischarge Instr - ActivityDischarge Instr - DietDischarge Instr - COCAttachmentsMaSal albright DO - 04/02/2024 1:30 PM EDTMaSal albright DO - 04/01/2024 5:25 PM EDT Note Date & Type Note Facility 07-09-2025 Discharge summary [facility] 07-09-2025 Radiology Diagnostic study note [facility] Imaging Services [address] [place] [address] [id number] Brain/Head without Contrast MR#: [id number] Acct: [id number] Name: NEIL WELLINGTON Rep #: [id number] : 1970 F 54 From: Ian Clifton MD PCP: REBECCA Parra Status: REG E R Study:Brain/Head without Contrast Date of Exa m: 07/09/25 Exam# [id number] Ordering Dr: Peter Billy DO PROCEDURE: BRAIN/HEAD [...] source of the patient's headache. Reading Location: [id number] CC: REBECCA Mera; Dr. Peter Varela-Deja, ~ Bleach Chlorinator: Signed [facility] 04-02-2024 Hospital Discharge instructions Catia [...] at most local grocery stores, pharmacies, and chain super-stores. If you have any questions about your diet or nutrition, call the hospital and ask for the dietitian. - GENERAL DIET 4 CARB CHOICES Catia Murillo RN - 04/02/2024 11:41 AM EDT Continuity of Care Form Patient Name: Neil Wellington : 1970 Admit date: 03/29/2024 Discharge date: 04/02/2024 Code Status Order: Full Code Advance Directives: Admitting Physician: Mateusz Ruff MD PCP: Luz Mera APRN - CNP Discharging Nurse: 2W Discharging Hospital Unit/Room#: W292/W292-01 Discharging Unit Phone Number: [phone] Emergency Contact: Extended Emergency Contact Information Primary Emergency Contact: Emerita Wellington Mobile Relation: Parent Preferred language: [place] Local Hazmat Driver needed? No Secondary Emergency Contact: yanna luna Mobile Relation: Boyfriend Local Hazmat Driver needed? No Past Surgical History: History reviewed. No pertinent surgical history. Immunization History: There is no immunization history on file for this patient. 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 Isolation/Infection: Isolation No Isolation Patient Infection Status None to display Nurse Assessment: Last Vital Signs: BP (!) 149/73 Pulse 60 Temp 98.4 F (36.9 C) (Oral) Resp 17 Ht 1.626 m (5' 4) Wt 107.5 kg (236 lb 15.9 oz) [...] Assisted Dressing Assisted Toileting Assisted Feeding Dependent Activities Volunteer Assisted Med Delivery whole Wound Care Documentation [...] all that are sent with patient): Glasses, head charger, medtronic device, clothing RN SIGNATURE: CASE MANAGEMENT/SOCIAL WORK SECTION Inpatient Status Date: 03/29/2024 Readmission Risk Assessment Score: Readmission Risk Risk of Unplanned Readmission: 13 Discharging to Facility/ Agency Name: [facility] Address: Phone: Fax: Dialysis Facility (if applicable) Name: Address: Dialysis Schedule: Phone: Fax: Coagulating Operator/Manager Games signature: PHYSICIAN SECTION Prognosis: {Prognosis:1612955847} Condition at Discharge: { Patient Condition:126834668} Rehab Potential (if transferring to Rehab): {Prognosis:5984401686} Recommended Labs or Other Treatments After Discharge: Physician Certification: I certify the above information and transfer of Neil Wellington is necessary for the continuing treatment of the diagnosis listed and that she requires Snf Facility for less 30 days. Update Admission H&P: {CHP DME Changes in HandP:324274646} PHYSICIAN SIGNATURE: The following attachments cannot be sent through Care Everywhere.cephalexin ([place])empagliflozin ([place])insulin lispro ([place])Stroke ([place]an)documented in this encounter [facility] 04-02-2024 Hospital course Narrative [facility] Medicine Discharge Summary Neil Wellington : 1970 Admit date: 03/29/2024 Discharge date: 04/02/2024 Admitting Physician: Mateusz Ruff MD Primary Care Physician: Luz Mera, TYPE CASTER - 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 Discharge Diagnoses: Principal Problem: Sepsis (HCC) Active [...] poorly controlled type 2 diabetes, CAD (recent MO and stenting) and recent CVA complicated by [...] hypertension). She will continue her rehabilitation at [facility]. Exam on Discharge: BP (!) 149/73 Pulse 60 Temp 98.4 F (36.9 C) (Oral) Resp 17 Ht 1.626 m (5' 4) Wt 107.5 kg (236 lb 15.9 oz) [...] known as: LOVENOX FreeStyle Liset 14 Day [place] Walker 1 actuation by Does not apply route 4 times daily (before meals and nightly) FreeStyle Liset 14 Day Sensor Misc APPLY 1 SENSOR TO BACK OF UPPER ARM. REMOVE AND REPLACE EVERY 14 DAYS. USE WITH DEVICE TO MONITOR BLOOD SUGAR Glucose Management Tabs Take 1 tablet by mouth daily as needed (low blood sugar) Handicap Kirill Misc by Does not apply route Good [...] 04/02/2024, 1:30 PM documented in this encounter [facility] 04-01-2024 History of Present illness Narrative Physician Progress Note 04/01/2024 5:25 PM Name: Neil Wellington IP Day: 3 Admit Date: 03/29/2024 6:54 AM PCP: Luz Mera APRN - CNP Code Status: Full Code Subjective: Still having difficulty seeing. Doing fine after ANNY and loop recorder insertion Current Facility-Administered Medications Medication Dose Route Frequency Provider Last Rate Last Admin bacteriostatic water injection 30 mL 30 mL IntraVENous Once Fara Newman DO sodium chloride flush 0.9 % injection [...] Quique Nugent MD 10 mg at 03/31/24 09 carvedilol (COREG) tablet 6.25 mg 6.25 mg [...] (Oral) Resp 19 Ht 1.626 m (5' 4) Wt 107.5 kg (236 lb 15.9 oz) [...] see patient on neurology rounds. Patient at [facility]. Patient arrived from procedure room. Report received from Catia OVERTON. VSS and monitored. LOOP insert site remains CDI. Patient sister requested to return back to [facility], shown to the floor. Patient to microbiological lab technician for procedure at this time. Report given to Elise OVERTON. Patient taken to procedure room for procedure Patient arrived from nursing unit via cart. Informed consent obtained from Sister JOE via telephone. All questions and concerns addressed with understanding verbalized. Patient prepped for procedure. Physical Therapy Med Surg Initial Assessment Facility/Department: [facility] 2W ORTHO TELE Room: W292/W292-01 NAME: Neil Wellington : 1970 (53 y.o.) CODE STATUS: Full Code Date of Service: 04/01/2024 Patient Diagnosis(es): CVA (cerebrovascular accident due to intracerebral hemorrhage) ([facility]) [I61.9] Sepsis secondary to UTI ([facility]) [A41.9, N39.0] History of non-ST elevation myocardial infarction (NSTEMI) [I25.2] Sepsis ([facility]) [A41.9] Acute nonintractable headache, unspecified headache type [R51.9] Cerebrovascular accident (CVA), unspecified mechanism ([facility]) [I63.9] Cerebral infarction due to posterior cerebral artery occlusion, unspecified blood vessel laterality ([facility]) [I63.539] Systolic congestive heart failure, unspecified HF chronicity ([facility]) [I50.20] Chief Complaint Patient presents with Headache X3 days Patient Active Problem List Diagnosis Date Noted Psoriatic arthritis ([facility]) 11/30/2022 Chronic systolic (congestive) heart failure 11/30/2022 Type 2 diabetes mellitus without complication, without long-term current use of insulin ([facility]) 08/17/2022 New onset of congestive heart failure ([facility]) 04/03/2022 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 No pertinent surgical history. Chart Reviewed: Yes Family / Caregiver Present: No Diagnosis: Sepsis (HCC) General Comment Comments: Pt resting in bed - agreeable to PT evaluation Restrictions: Restrictions/Precautions: Fall Risk, Bed Alarm, Other (comment) (new onset of blindness per pt report) SUBJECTIVE: Subjective: I'm groggy. Pain Pain: Denies pain pre and post [...] (snf staff.) ADL Assistance: Needs assistance (per intermediate SBA with ambulation and adl's since the pt is visually impaired.) Homemaking Responsibilities: No Ambulation Assistance: Independent (without AD; per case management, pt requires SBA) Transfer Assistance: Independent (Per facility, pt completes with SBA) Active Regional Coordinator: No Occupation: On disability Additional Comments: PLOF [...] following through with information. She frequently reported I don't know when asked simple question about her PLOF [...] All fall risk precautions in place Goals: Paper Latcher Goals Paper Latcher Goal 1: Pt to complete bed mobility with indep Intermediate Goal 2: Pt to complete transfers with SBA Paper Latcher Goal 3: Pt to ambulate 50-150ft with LRD and SBA Paper Latcher Goal 4: Pt to manage 5 steps with HR and SBA [facility] (6 CLICK) BASIC MOBILITY AM-PAC Inpatient Mobility [...] (Oral) Resp 18 Ht 1.62 m (5' 3.78) Wt 107.5 kg (237 lb) SpO2 99% [...] Intake/Output Summary (Last 24 hours) at 03/31/2024 1627 Last data filed at 03/31/2024 0220 Gross [...] of the right vertebral artery. Echo at [facility] 03/17/24 Left Ventricle: Left ventricle size is [...] is 39 ml/m2. Cardiac cath: 03/17/24 at [facility] - Successful IVUS guided PCI of ostial [...] and left main. Known CAD with recent MO, status post PCI/drug-eluting stents to circumflex and RCA (03/17/2024 at the [facility]) History of cardiomyopathy, now recovered with [...] ADDENDUM: Spoke with patient's sister Valerie at [phone] with update and recommendation for above procedures. Reviewed risks/benefits again. She will speak to patient today and patient will make decision. Sister also mentions patient has had issues with non compliance in the past due to meth addiction but patient will likely require retirement care so compliance should improve. Thank you for allowing me to participate in your patient's cardiac care. Should you have questions, please do not hesitate to contact me. Fara Newman DO, FACC, [facility] Hospitalist Progress Note PCP: Luz Mera APRN - CNP Date of Admission: 03/29/2024 Chief Complaint: Bilateral [...] (Oral) Resp 18 Ht 1.62 m (5' 3.78) Wt 107.5 kg (237 lb) SpO2 98% [...] ALKPHOS 223* 173* No results for input(s): INR in the last 72 hours. No results for input(s): CKTOTAL, TROPONINI in the last 72 hours. Radiology: CT [...] accident due to intracerebral hemorrhage) (HCC) [I61.9] 03/29/2024 Elevated troponin [R79.89] 03/29/2024 *Large [...] almost back to baseline *Elevated troponin. Recent MO. Recent stenting. Patient is on dual antiplatelets [...] Nightly Quique Nugent MD 4 Units at 03/29/242055 cefTRIAXone (ROCEPHIN) 1,000 mg in sodium chloride 0.9 % 50 mL IVPB (mini-bag) 1,000 mg IntraVENous Q12H Quique Nugent MD Stopped at 03/31/24 0342 oxyCODONE (ROXICODONE) immediate release tablet 5 mg 5 mg Oral Q4H PRN Quique Nugent MD 5 mg at 03/31/24 1137 insulin glargine (LANTUS) injection vial 25 Units 25 Units SubCUTAneous Daily Quique Nugent MD 25 Units at 03/31/24 0939 PHYSICAL EXAM: BP 134/77 Pulse 69 Temp 97.9 F (36.6 C) (Oral) Resp 18 Ht 1.62 m (5' 3.78) Wt 107.5 kg (237 lb) SpO2 98% [...] headache, cva/bleed/trauma TECHNOLOGIST PROVIDED HISTORY: Has a code stroke or stroke alert been called?->No Reason for exam:->headache Decision Support [...] headache, cva/bleed/trauma TECHNOLOGIST PROVIDED HISTORY: Has a code stroke or stroke alert been called?->No Reason for exam:->headache Decision Support [...] headache, cva/bleed/trauma TECHNOLOGIST PROVIDED HISTORY: Has a code stroke or stroke alert been called?->No Reason for exam:->headache Decision Support [...] 04/03/2022 05:30 AM No results found for: LITHIUM, DILFRTOT, VALPROATE ASSESSMENT AND PLAN Bilateral occipital parietal strokes. The right one appears to be chronic and the right 1 quite large is subacute. 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 Findings based on patient's clinical presentation of bilateral parieto-occipital strokes and initially was able to function and see. This explains the ophthalmic examination that was done at [facility]. In any case the strokes appear to be secondary to multiple risk factors for cerebrovascular disease. MRI pending an MRA to see if there is ongoing basilar artery stenosis. 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 No extracranial stenosis identified on the MRA done at [facility] which is more reliable. Instructed nursing staff [...] time 50-minute Kamron Cool MD, AARON Diplomate, [place] Board of Psychiatry & Neurology Board Certified in Vascular Neurology Board Certified in Neuromuscular Medicine Certified in Neurorehabilitation Cardiology Follow up Note Subjective: No chest pain or shortness of breath. Headaches improved. Still with significant visual impairment. Troponin trending down Review of Systems: As noted manage Objective: BP 129/63 Pulse 67 Temp 98.8 F (37.1 C) (Oral) Resp 17 Ht 1.62 m (5' 3.78) Wt 107.5 kg (237 lb) SpO2 99% [...] of the right vertebral artery. Echo at [facility] 03/17/24 Left Ventricle: Left ventricle size is [...] is 39 ml/m2. Cardiac cath: 03/17/24 at [facility] - Successful IVUS guided PCI of ostial [...] and left main. Known CAD with recent MO, status post PCI/drug-eluting stents to circumflex and RCA (03/17/2024 at the [facility]) History of cardiomyopathy, now recovered with normal LV systolic function, EF 50 to 55% Subacute left parietal occipital CVA, possibly related to recent cardiac catheterization. Hypertension Hyperlipidemia Diabetes mellitus type 2 COPD/tobacco abuse Obesity Principal Problem: Sepsis (HCC) Active Problems: CVA (cerebrovascular accident due to intracerebral hemorrhage) (HCC) Elevated troponin Resolved Problems: * No resolved [...] do not hesitate to contact me. Fara Newman DO, [facility], [facility] Hospitalist Progress Note PCP: Luz Mera APRN - 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 Date of Admission: 03/29/2024 Chief Complaint: Bilateral [...] (Oral) Resp 17 Ht 1.62 m (5' 3.78) Wt 107.5 kg (237 lb) SpO2 99% [...] ALKPHOS 223* 173* No results for input(s): INR in the last 72 hours. No results for input(s): CKTOTAL, TROPONINI in the last 72 hours. Radiology: US [...] Active Hospital Problems Diagnosis Date Noted Sepsis ([facility]) [A41.9] 03/29/2024 CVA (cerebrovascular accident due to intracerebral hemorrhage) (HCC) [I61.9] 03/29/2024 Elevated troponin [R79.89] 03/29/2024 *Large [...] almost back to baseline *Elevated troponin. Recent MO. Recent stenting. Patient is on dual antiplatelets [...] ADULT DIET; Regular Code Status: Full Code Victorino assisted by WELT POCKET MACHINE OPERATOR, Jerardo, to eat. Ate breakfast late and consumed 100 %. Also ate 100 % of lunch. In bed resting with eyes closed. Physical Therapy Missed Treatment Facility/Department: [facility] MED SURG W292/W292-01 NAME: Neil Wellington : 1970 (53 y.o.) Account: [id number] Gender: female Orders received, chart reviewed. Attempted PT evaluation at 1312, patient with Nsg. Eating lunch. Will follow and attempt PT evaluation again at earliest availability. oRsita Jack, PT, 03/30/24 at 1:10 PM Neurology [...] Daily Quique Nugent MD 81 mg at 03/30/24 1007 insulin lispro (HUMALOG,ADMELOG) injection vial 5 Units [...] 0-8 Units SubCUTAneous TID Quique Nugent MD 4 Units at 03/29/24 173 insulin lispro (HUMALOG,ADMELOG) injection vial 0-4 Units 0-4 Units SubCUTAneous Nightly Quique Nugent MD 4 Units at 03/29/242055 cefTRIAXone (ROCEPHIN) 1,000 mg in sodium chloride [...] (Oral) Resp 17 Ht 1.62 m (5' 3.78) Wt 107.5 kg (237 lb) SpO2 100% [...] headache, cva/bleed/trauma TECHNOLOGIST PROVIDED HISTORY: Has a code stroke or stroke alert been called?->No Reason for exam:->headache Decision Support [...] headache, cva/bleed/trauma TECHNOLOGIST PROVIDED HISTORY: Has a code stroke or stroke alert been called?->No Reason for exam:->headache Decision Support [...] headache, cva/bleed/trauma TECHNOLOGIST PROVIDED HISTORY: Has a code stroke or stroke alert been called?->No Reason for exam:->headache Decision Support [...] 04/03/2022 05:30 AM No results found for: LITHIUM, DILFRTOT, VALPROATE ASSESSMENT AND PLAN Bilateral occipital parietal strokes. The right one appears to be chronic and the right 1 quite large is subacute. 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 Findings based on patient's clinical presentation of bilateral parieto-occipital strokes and initially was able to function and see. This explains the ophthalmic examination that was done at [facility]. In any case the strokes appear to be secondary to multiple risk factors for cerebrovascular disease. MRI pending an MRA to see if there is ongoing basilar artery stenosis. 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 No extracranial stenosis identified on the MRA done at [facility] which is more reliable. Instructed nursing staff to feed her as she is not able to feed herself due to the blindness. Kamron Cool MD, AARON Diplomate, [place] Board of Psychiatry & Neurology Board Certified in Vascular Neurology Board Certified in Neuromuscular Medicine Certified in Neurorehabilitation [facility] OCCUPATIONAL THERAPY EVALUATION - ACUTE NAME: Neil Wellington : 1970 (53 y.o.) CODE STATUS: Full Code Room: W292/W292-01 Date of Service: 03/29/2024 Patient Diagnosis(es): CVA (cerebrovascular accident due to intracerebral hemorrhage) ([facility]) [I61.9] Sepsis secondary to UTI ([facility]) [A41.9, N39.0] History of non-ST elevation myocardial infarction (NSTEMI) [I25.2] Sepsis ([facility]) [A41.9] Acute nonintractable headache, unspecified headache type [R51.9] Cerebrovascular accident (CVA), unspecified mechanism ([facility]) [I63.9] Cerebral infarction due to posterior cerebral artery occlusion, unspecified blood vessel laterality ([facility]) [I63.539] Systolic congestive heart failure, unspecified HF chronicity ([facility]) [I50.20] Patient Active Problem List Diagnosis Date Noted Psoriatic arthritis ([facility]) 11/30/2022 Chronic systolic (congestive) heart failure 11/30/2022 Type 2 diabetes mellitus without complication, without long-term current use of insulin ([facility]) 08/17/2022 New onset of congestive heart failure ([facility]) 04/03/2022 Sepsis ([facility]) 03/29/2024 CVA (cerebrovascular accident due to intracerebral hemorrhage) ([facility]) 03/29/2024 Past Medical History: Diagnosis Date Diabetes mellitus ([facility]) Hypertension History reviewed. No pertinent surgical history. Restrictions Restrictions/Precautions: Fall Risk, Bed Alarm, Other (comment) (new onset of blindness) Safety Devices: Safety Devices Type of Devices: All fall risk precautions in place Patient's date of confirmed: Yes General: Chart Reviewed: Yes Subjective Subjective: I can't see Pain at start of treatment: No Pain at end of treatment: No Prior Level of Function: Social/Functional History Lives With: (Patient was in a NH for about 1 day prior to this hospitalization. Prior to that per visitor in the room reported that patient was in [facility] and then went to [facility] for about one day) Type of Home: Facility Home Layout: One level (layout/equipment per facility.) Bathroom Toilet: Standard Bathroom Accessibility: Accessible Home Equipment: None Has the patient had two or more falls in the past year or any fall with injury in the past year?: Unknown Receives Help From: Other (comment) (snf staff.) ADL Assistance: Needs assistance (per intermediate SBA with ambulation and adl's since the pt is visually impaired.) Homemaking Responsibilities: No Ambulation Assistance: Needs assistance (sba) Active Regional Coordinator: No Occupation: On disability Additional Comments: PLOF [...] following through with information. She frequently reported I don't know when asked simple question about her PLOF [...] / Modification: max modifcation due to vision AMPA (Six Click) Self care Score How much [...] How much help for eating meals?: Total [facility] In[facility] Daily Activity Raw Score: 10 [facility] Inpatient ADL T-Scale Score : 27.31 ADL [...] 20 Eval: 20 minutes Electronically signed by: ONELIA Watkins, 03/29/2024, 3:05 PM documented in this encounter [facility] 03-27-2024 Nurse Note Report called to [facility] [...] family live about an hour away in [place] and would like for patient to be [...] to see if she could go to [facility] instead of [facility]. I confirmed his contact information, and made [...] Call light in reach. Patient arrived to west from [facility]. Vitals obtained, heart monitor on patient. Call light within reach, bed alarm on. documented in this encounter [facility] 03-27-2024 Miscellaneous Notes Patient Choice Patient Name: NEIL WELLINGTON Date of : 1970 All Providers Sent Referral Name: [facility] (CPAN Member) Phone: [phone] Address: [address] [place] [address] Name: [facility] Address: [address] [place] [address] Name: [facility] Phone: [phone] Address: [address] [place] [address] Name: [facility] Phone: [phone] Address: [address] [place] [address] Name: [facility] Phone: [phone] Address: [address] [place] [address] Name: [facility] Phone: [phone] Address: [address] [place] [address] Name: [facility] Phone: [phone] Address: [address] [place] [address] [facility] per TCC request. 7000 completed in [facility] per TCC request. Facility notified via careport. DC orders, MAR, and 7000 tasked to be sent to [facility]. Per TCC pt is going to be dc'd today to [facility] at a snf loc. Transportation set up with roundtrip and ghada Fon[employer] claimed the trip. They will slate picker the pt at 4pm. Informed refinery operator reforming unit, CRISELDA, Tian Anders, jacky informed, facility via careport, and pt's mom [...] stable Spoke with mother Emerita, reviewed that [facility] can accept. [facility] is facility of choice, snf updated [facility], auth tasked to be started. Called to bedside [...] maintained. Referral placed to SNF - 1. [facility] 2. [facility] 3. [facility]. [facility] 5. [facility] via [facility] per TCC request. Await review and response regarding ability to accept. TCC notified. Spoke with sister Valerie, updated her that [facility] and [facility] in [place] do no have open beds. She is agreeable to referral to [facility] and referrals to snfs in [facility], [facility], and [facility]. Spoke with pt's mom Emerita, she requests referral to [facility] as well. Referrals tasked to be placed in careport. Referral placed to [facility] via [facility] per TCC request. Await review and response regarding ability to accept. TCC notified. SW following with TCC. Referral placed to [facility] via Care[facility] per TCC request. Await review and response regarding ability to accept. TCC notified. Received note from RN that family would like referral to [facility], does not want [facility]. Would like pt to be close to family. Met with pt at bedside to discuss, she confirms she would like a snf in [place]. Received call from sister Valerie, she states that it is important for pt to be close to family so family can assist in caring for pt. Referral has been tasked to be placed to [facility], if they are unable to accept will work with family on other choices. Valerie agreeable to this plan. 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 Patient vitals [...] address these barriers include education. Spoke with [facility] liaison, auth is back thru 03/29. No bed available at [facility] today. TCC to follow. Patient denies pain throughout shift. She remains free from injury, calls appropriately for standby assist to and from bathroom. Images from the original note were not included. Care Management Progress Note Tasked to follow this patient over the weekend. Spoke with [facility] liaison, auth remains pending. TCC to [...] (Days): 8 GMLOS: 3.8 Auth pending to [facility]. Spoke with [facility] liaison, do not anticipate hearing today [...] include none. Referral placed to [facility]HAB - [facility] via Careport per TCC request. Await review and response regarding ability to accept. TCC notified. Electronically signed by [facility] [place]. Spoke with patient at bedside to discuss PT recommendation of IPR. Patient agreeable, choice provided, would like [facility]. Task to [facility] to place referral. The patient is Moderately [...] Limits Permission given to speak with patient commissary representative/caregiver as indicated: Confirmation of Payer with patient/family: Yes Payer Name: [facility] : No Confirmation of Primary Care Physician: Confirmed PCP Name: Luz Mera Seen in last 2 years?: Yes Primary [...] sedation as planned. documented in this encounter [facility] 03-27-2024 History of Present illness Narrative Images from the original note were not included. Speech-Language Pathology SPEECH LANGUAGE PATHOLOGY [facility] Language Treatment Note Patient Name: Neil Wellington Evaluation Date: 03/27/2024 Date of : 1970 Admission Date: 03/15/2024 7:36 PM Age: 53 y.o. Room/Bed: [facility] Subjective Patient confused, and restless. Seen [...] in session. Oriented to self and place hospital but unable to state name of this [...] at next level of care Continue acute CHARTER PILOT therapy per initial plan of care and [...] Goal Note Visual deficits Encounter Problems (Resolved) CHARTER PILOT [facility] Misc 1 (Completed) Start: 03/19/24 Expected End: 04/02/24 Resolved: 03/20/24 Goal Note Patient will follow 3 step commands x 80% Therapy Time CHARTER PILOT Individual Minutes Time In: 924 Time Out: 939 Minutes: 15 SALVADOR Maldonado Department of Internal Medicine Division of Endocrinology, Diabetes, & Metabolism Endocrinology Note Patient Name: Neil Wellington : 1970 AGE: 53 y.o. Room[facility]Bed: [facility] Admission Date: 03/15/2024 Visit Date: 03/27/2024 Reason for Endocrine Consult: uncontrolled DM Provider/Team Requesting Consult: Cardiology PCP: Luz Mera Outpt Project Manager Interior Design: No ASSESSMENT: Uncontrolled DM2 with supervisor gear repair insulin Med noncompliance NSTEMI-stents placed 03/16/24 CKD [...] Recommendations-- Please continue current insulin regimen to the [facility] or SNF on DC Outpt Follow Up-- PCP SUBJECTIVE/HPI: CHIEF COMPLAINT: No chief complaint on file. Patient presented to [facility] ED with CP radiating down left arm and jaw pain started 03/13/24 Patient transferred from [place] had there -for NSTEMI--for CABG vs stents--patient declines surgery Had heart cath and stents placed at [facility] 03/16/24 EF improved on ANNY after stents placed ( was 44% at [facility]) Today patient is resting in bed, barely [...] don't remember Per nursing ate eggs and vincentian toast for BF Interval events BGL below-stable today Resting in bed VSS RA Flat affect Had all of bfast just finished eating Cannot recall if had late snack Did eat dinner last night She denies nv abd pain No family in room today Will go to the [facility] rehab vs home snf near her [...] for those mentioned in HPI. OBJECTIVE: Vitals: 03/26/24 2000 03/26/24 2348 03/27/24 0342 03/27/24 0743 BP: 108/74 [...] Intake/Output Summary (Last 24 hours) at 03/27/2024 0993 Last data filed at 03/27/2024 0851 Gross [...] today's encounter. Labs: No components found for: LABA1C No components found for: EAG Lab Results Component Value Date NA 135 [...] 104 (H) 03/16/2024 No results found for: VLDL Lab Results Component Value Date CHOLHDLRATIO 4 03/16/2024 No results found for: [id number] Lab Results Component Value Date TSH 1.923 03/16/2024 Radiology reportsas per the Radiologist Radiology: POCT glucose meter Result Date: 03/16/2024 Performed by: [facility], [address] [place] [address] CLIA ID: [id number] POCT glucose meter Result Date: 03/16/2024 Performed by: [facility], [address] [place] [address] CLIA ID: [id number] POCT ACT Result Date: 03/16/2024 Performed by: [facility], [address] [place] [address] CLIA ID: [id number] POCT ACT Result Date: 03/16/2024 Performed by: [facility], [address] [place] [address] CLIA ID: [id number] POCT ACT Result Date: 03/16/2024 Performed by: [facility], [address] [place] [address] CLIA ID: [id number] ECG 12 lead Sinus rhythm Right axis [...] glucose meter Result Date: 03/16/2024 Performed by: [facility], [address] [place] [address] CLIA ID: [id number] POCT glucose meter Result Date: 03/15/2024 Performed by: [facility], [address] [place] [address] CLIA ID: [id number] XR chest 1 view Result Date: 03/15/2024 [facility] 1970 [id number] Exam Date/Time: 03/15/2024 20:23 Procedure: XR CHEST 1 VIEW Ordering Provider: ZAZUETA JOSEPH Reason For Exam: Shortness of breath [...] 03/16/2024 Performed by Maximo Max MD at [facility] Cardiac Cath/EP Lab CARDIAC CATHETERIZATION N/A 03/16/2024 Performed by Maximo Max MD at [facility] Cardiac Cath/EP Lab CARDIAC CATHETERIZATION N/A 03/16/2024 Performed by Maximo Max MD at [facility] Cardiac Cath/EP Lab Allergy(ies): No Known Allergies [...] headache. - Authorization filed and accepted for [facility] in [place], [place]. Medically stable for discharge, transport planned [...] (96.6 F) (Temporal) Resp 18 Ht 5' 2 (1.575 m) Wt 199 lb 3.2 oz [...] last 24 hours No results found for: WBC, HGB, HCT, PLT, MCV No results found for: NA, K, CL, CO2, BUN, CREATININE, GLUCOSE, CALCIUM, MG, PHOS No results found for: AST, ALT, PROT, BILITOT, ALKPHOS, INR, APTT, LIPASE No results found for: CKTOTAL, CKMB, TROPONINI No results found for: PROCAL, CHOL, TRIG, HDL, TSH, VITD25, HGBA1C, VANCOTROUGH Abdominal US (03/26) - Surgically absent GB, [...] matter changes likely due to microangiopathic disease. Assessment and Plan: NSTEMI - S/p [facility] (03/16/24) - KINGSLEY to ostial-mid Lcx (85% [...] to monitor labs every week at [facility]. Transaminitis - AST of 85, ALT of 121 yesterday, and elevated Alk Phos at 173 yesterday, no new lab values. - Recommending hepatic panel within 1 week at [facility] - See below (HLD), changing crestor to [...] and Cardiac Disposition: Discharge this afternoon to SNF ([facility]) I have discussed the care of Neil [...] original note were not included. PHYSICAL THERAPY [facility] Treatment Note Name/MRN: Neil Wellington ([id number]) Date of : 1970 Age: 53 y.o. Room/Bed: W5-524/W5-524 B Discharge Recommendation: IP Rehab Equipment Needed: [...] control when returning to seated surface. Pt plopping when returning to seated surface. Use of [...] X 4 LOB with assist from this PLATING ENGINEER to recover. Cues for management and safety [...] Raw Score (No Stairs) : 17 JH-HLM -HLM Score: Walked 250 ft or more (i.e. [...] 24 Timed Code Treatment Minutes: 23 Minutes (FA, GT) PLATING ENGINEER wore PPE in compliance with hospital guidelines and regulation when treating this patient. Padmini Khan PLATING ENGINEER Images from the original note were not included. Speech-Language Pathology SPEECH LANGUAGE PATHOLOGY [facility] Language Treatment Note Patient Name: Neil Wellington Evaluation Date: 03/26/2024 Date of : 1970 Admission Date: 03/15/2024 7:36 PM Age: 53 y.o. Room[facility] Subjective Patient awakened easily and was [...] visual deficits. Plan & Recommendations Continue acute CHARTER PILOT therapy per initial plan of care and [...] 03/19/24 Expected End: 04/02/24 Encounter Problems (Resolved) CHARTER PILOT Misc Misc 1 (Completed) Start: 03/19/24 Expected End: 04/02/24 Resolved: 03/20/24 Goal Note Patient will follow 3 step commands x 80% Therapy Time CHARTER PILOT Individual Minutes Time In: 1055 Time Out: 1110 Minutes: 15 Patti Gaston MA, CCC/CHARTER PILOT Department of Internal Medicine Division of Endocrinology, Diabetes, & Metabolism Endocrinology Note Patient Name: Neil Wellington : 1970 AGE: 53 y.o. Room/Bed: [facility] Admission Date: 03/15/2024 Visit Date: 03/26/2024 Reason for Endocrine Consult: uncontrolled DM Provider/Team Requesting Consult: Cardiology PCP: Luz Mera Outpt Project Manager Interior Design: No ASSESSMENT: Uncontrolled DM2 with retirement insulin Med noncompliance NSTEMI-stents placed 03/16/24 CKD [...] chief complaint on file. Patient presented to [facility] ED with CP radiating down left arm and jaw pain started 03/13/24 Patient transferred from [place] had there -for NSTEMI--for CABG vs stents--patient declines surgery Had heart cath and stents placed at [facility] 03/16/24 EF improved on ANNY after stents placed ( was 44% at [facility]) Today patient is resting in bed, barely [...] don't remember Per nursing ate eggs and vincentian toast for BF Interval events BGL below- elevated Resting in chair VSS RA Flat affect Had all of bfast just finished eating Cannot recall if had late snack Did eat dinner last night She denies nv abd pain No family in room Will go to the [facility] re[facility] vs home snf near her [...] Intake/Output Summary (Last 24 hours) at 03/26/2024 0958 Last data filed at 03/26/2024 0646 Gross [...] today's encounter. Labs: No components found for: LABA1C No components found for: EAG Lab Results Component Value Date NA 135 [...] 104 (H) 03/16/2024 No results found for: VLDL Lab Results Component Value Date CHOLHDLRATIO 4 03/16/2024 No results found for: [id number] Lab Results Component Value Date TSH 1.923 03/16/2024 Radiology reportsas per the Radiologist Radiology: POCT glucose meter Result Date: 03/16/2024 Performed by: [facility], [address] [place] [address] CLIA ID: [id number] POCT glucose meter Result Date: 03/16/2024 Performed by: [email or web address], [address] [place] [address] CLIA ID: [id number] POCT ACT Result Date: 03/16/2024 Performed by: [facility], [address] [place] [address] CLIA ID: [id number] POCT ACT Result Date: 03/16/2024 Performed by: [facility], [address] [place] [address] CLIA ID: [id number] POCT ACT Result Date: 03/16/2024 Performed by: [facility], [address] [place] [address] CLIA ID: [id number] ECG 12 lead Sinus rhythm Right axis [...] glucose meter Result Date: 03/16/2024 Performed by: [facility], [address] [place] [address] CLIA ID: [id number] POCT glucose meter Result Date: 03/15/2024 Performed by: [facility], [address] [place] [address] CLIA ID: [id number] XR chest 1 view Result Date: 03/15/2024 Patient Name: NEIL WELLINGTON [facility] 1970 [id number] Exam Date/Time: 03/15/2024 20:23 Procedure: XR CHEST 1 VIEW Ordering Provider: ZAZUETA JOSEPH Reason For Exam: Shortness of breath [...] 03/16/2024 Performed by Maximo Max MD at [facility] Cardiac Cath/EP Lab CARDIAC CATHETERIZATION N/A 03/16/2024 Performed by Maximo Max MD at [facility] Cardiac Cath/EP Lab CARDIAC CATHETERIZATION N/A 03/16/2024 Performed by Maximo Max MD at [facility] Cardiac Cath/EP Lab Allergy(ies): No Known Allergies [...] y.o.) Date: March 26, 2024 Med Team: A Attending: Dr. Guero Monson Chief Complaint: NSTEMI, Stroke Subjective: - Acute events per evening team: Mrs. Wellington reported headache localized to center of the forehead. Reported no new neurologic changes. Received does of acetaminophen. - Mrs. Wellington was seen this morning with no acute complaints. Per case management, bed available at [facility] near her family ([place], [place]), will have authorization filed today. - [...] (97.6 F) (Temporal) Resp 16 Ht 5' 2 (1.575 m) Wt 199 lb 6.4 oz [...] 126 U/L Final No results found for: CKTOTAL, CKMB, TROPONINI No results found for: PROCAL, CHOL, TRIG, HDL, TSH, VITD25, HGBA1C, VANCOTROUGH Abdominal US (03/26) - Surgically absent GB, No intrahepatic/extrahepatic dilatation of the bile ducts, normal parenchymal echogenicity of the bilateral kidneys, normal spleen. Assessment and Plan: NSTEMI - S/p [facility] (03/16/24) - KINGSLEY to ostial-mid Lcx (85% [...] Lantus 26 units nightly - Humalog insulin 24/24/24 units before meals (changed recommendation) - Humalog [...] original note were not included. OCCUPATIONAL THERAPY [facility] Treatment Note Name/MRN: Neil Wellington ([id number]) Date of : 1970 Age: 53 y.o. Room/Bed: W5-524/W5-524 B Discharge Recommendation: IP Rehab Equipment Needed: (TBD next level of therapy) Prior Level of Function ADL Assistance: Independent Ambulation Assistance: Independent Transfer Assistance: Independent Assessment Cooperative/motivated. Difficulty with negotiating in environment due to visual deficit. Will need ongoing services of neuro plate cutter/parts person. Suggest intensive rehab level therapies at discharge. Subjective Pt in bed, agrees to OT as requested for insurance precert. Tearful, I can't see right, everything I used to be able to do is so hard now. Pain: No specific c/o pain this session. [...] not included. Speech-Language Pathology SPEECH LANGUAGE PATHOLOGY [facility] Language Treatment Note Patient Name: Neil Wellington Evaluation Date: 03/25/2024 Date of : 1970 Admission Date: 03/15/2024 7:36 PM Age: 53 y.o. Room[facility]Bed: [facility] Subjective Patient alert and cooperative. Seen upright in bedside chair. No visitors at bedside. Spoke with RN, Shalonda, who cleared pt for treatment. Pain: RN managing pain. PPE Worn: gloves Objective & Assessment Activity 1: Naming - semantic feature analysis Pt's visual deficits prohibit pt from identify objects/pictures clearly. Semantic feature analysis was utilized to increase naming function with current word-finding deficits. CHARTER PILOT provided the pt with an object name, and prompted pt to provided 3-4 attributes per object (function, location, looks like, etc). Pt presented with 67% accuracy in 9 trials. Agitation increases as session progressed. Reading/writing not addressed due to pt preference (I can't see anything anyways) Plan & Recommendations Plan: Continue acute CHARTER PILOT therapy per initial plan of care and established goals. D/C Recommendations: to be determined Education Education Given: communication Given To: patient and RN Response: verbalizes understanding Goals Patient Stated Goal: Can I just lay down Encounter Problems Encounter Problems (Active) Speech/Language/Cognition Patient will name objects/items in environment or functional pictures with 75% accuracy (Progressing) Start: 03/19/24 Expected End: 04/02/24 Patient will participate with evaluation of reading comprehension and graphic expression. (Not Progressing) Start: 03/19/24 Expected End: 04/02/24 Encounter Problems (Resolved) CHARTER PILOT Misc Misc 1 (Completed) Start: 03/19/24 Expected End: 04/02/24 Resolved: 03/20/24 Goal Note Patient will follow 3 step commands x 80% Therapy Time CHARTER PILOT Individual Minutes Time In: 1000 Time Out: 1017 Minutes: 17 IKER MayerCHARTER PILOT Images from the original note were not included. PHYSICAL THERAPY [facility] Treatment Note Name/MRN: Neil Wellington ([id number]) Date of : 1970 Age: 53 y.o. Room[facility]Bed: [facility] B Discharge Recommendation: IP Rehab Equipment Needed: [...] Raw Score (No Stairs) : 16 JH-HLM -HL Score: Walked 250 ft or more (i.e. [...] Therapy Time Individual Co-treatment Time In 09 (one gait, one TP) Time Out 0940 Minutes 23 Timed Code Treatment Minutes: 23 Minutes Ricky Pearson PT Department of Internal Medicine Division of Endocrinology, Diabetes, & Metabolism Endocrinology Note Patient Name: Neil Wellington : 1970 AGE: 53 y.o. Room[facility]Bed: [facility] Admission Date: 03/15/2024 Visit Date: 03/25/2024 Reason for Endocrine Consult: uncontrolled DM Provider/Team Requesting Consult: Cardiology PCP: Luz Mera Outpt Project Manager Interior Design: No ASSESSMENT: Uncontrolled DM2 with supervisor gear repair insulin Med noncompliance NSTEMI-stents placed 03/16/24 CKD [...] chief complaint on file. Patient presented to [facility] ED with CP radiating down left arm and jaw pain started 03/13/24 Patient transferred from [place] had there -for NSTEMI--for CABG vs stents--patient declines surgery Had heart cath and stents placed at [facility] 03/16/24 EF improved on ANNY after stents placed ( was 44% at [facility]) Today patient is resting in bed, barely opens eyes Endorses not taking any medications ordered for more than year Reviewed PCP not from care everywhere 07/2023 states depression reason for not taking medications--patient states leighe did npot follow up with PCP at [...] don't remember Per nursing ate eggs and vincentian toast for BF Interval events BGL below- [...] for this on DC Will go to the [facility] vs home snf near her [...] for those mentioned in HPI. OBJECTIVE: Vitals: 03/24/24202703/24/24 2336 03/25/24 0329 03/25/24 0739 BP: 100/61 [...] today's encounter. Labs: No components found for: LABA1C No components found for: EAG Lab Results Component Value Date NA 132 [...] 104 (H) 03/16/2024 No results found for: VLDL Lab Results Component Value Date CHOLHDLRATIO 4 03/16/2024 No results found for: [id number] Lab Results Component Value Date TSH 1.923 03/16/2024 Radiology reportsas per the Radiologist Radiology: POCT glucose meter Result Date: 03/16/2024 Performed by: [email or web address], [address] [place] [address] CLIA ID: [id number] POCT glucose meter Result Date: 03/16/2024 Performed by: [email or web address] Lab, [address] [place] [address] CLIA ID: [id number] POCT ACT Result Date: 03/16/2024 Performed by: [facility], [address] [place] [address] 74703 CLIA ID: [id number] POCT ACT Result Date: 03/16/2024 Performed by: [facility] [employer] [facility], [address] [place] [address] 97895 CLIA ID: [id number] POCT ACT Result Date: 03/16/2024 Performed by: [facility], [address] [place] [address] 79444 CLIA ID: [id number] ECG 12 lead Sinus rhythm Right axis [...] glucose meter Result Date: 03/16/2024 Performed by: [facility], [address] [place] [address] 38721 CLIA ID: [id number] POCT glucose meter Result Date: 03/15/2024 Performed by: [email or web address] [facility], [address] [place] [address] 13560 CLIA ID: [id number] XR chest 1 view Result Date: 03/15/2024 [facility] 1970 [id number] Exam Date/Time: 03/15/2024 20:23 Procedure: XR CHEST 1 VIEW Ordering Provider: ZAZUETA JOSEPH Reason For Exam: Shortness of breath [...] 03/16/2024 Performed by Maximo Max MD at [facility] Cardiac Cath/EP Lab CARDIAC CATHETERIZATION N/A 03/16/2024 Performed by Maximo Max MD at [facility] Cardiac Cath/EP Lab CARDIAC CATHETERIZATION N/A 03/16/2024 Performed by Maximo Max MD at [facility] Cardiac Cath/EP Lab Allergy(ies): No Known Allergies [...] Neil Wellington : 1970(53 y.o.) Date: March 25, [...] she no longer wants to go to [facility]. Wants to go to [place] to be closer to her family. Case [...] (97.9 F) (Temporal) Resp 18 Ht 5' 2 (1.575 m) Wt 199 lb 14.4 oz [...] 126 U/L Final No results found for: CKTOTAL, CKMB, TROPONINI No results found for: PROCAL, CHOL, TRIG, HDL, TSH, VITD25, HGBA1C, VANCOTROUGH Assessment and Plan: NSTEMI - S/p [facility] (03/16/24) - KINGSLEY to ostial-mid Lcx (85% [...] Wellington : 1970 AGE: 53 y.o. Room[facility]Bed: [facility] Admission Date: 03/15/2024 Visit Date: 03/24/2024 Reason for Endocrine Consult: uncontrolled DM Provider/Team Requesting Consult: Cardiology PCP: Luz Mera Outpt Project Manager Interior Design: No ASSESSMENT: Uncontrolled DM2 Med noncompliance NSTEMI-stents [...] chief complaint on file. Patient presented to [place] ED with CP radiating down left arm and jaw pain started 03/13/24 Patient transferred from [place] had there -for NSTEMI--for CABG vs stents--patient declines surgery Had heart cath and stents placed at [facility] 03/16/24 EF improved on ANNY after stents placed ( was 44% at [facility]) Today patient is resting in bed, barely [...] don't remember Per nursing ate eggs and vincentian toast for BF Type of DM: DM2 [...] Intake/Output Summary (Last 24 hours) at 03/24/2024 0945 Last data filed at 03/24/2024 0427 Gross [...] today's encounter. Labs: No components found for: LABA1C No components found for: EAG Lab Results Component Value Date NA 134 [...] 104 (H) 03/16/2024 No results found for: VLDL Lab Results Component Value Date CHOLHDLRATIO 4 03/16/2024 No results found for: [id number] Lab Results Component Value Date TSH 1.923 03/16/2024 Radiology reportsas per the Radiologist Radiology: POCT glucose meter Result Date: 03/16/2024 Performed by: [facility] Lab, [address] [place] [address] 14264 CLIA ID: [id number] POCT glucose meter Result Date: 03/16/2024 Performed by: [facility] Lab, [address] [place] [address] 8[address]60 CLIA ID: [id number] POCT ACT Result Date: 03/16/2024 Performed by: [facility] Lab, [address] [place] [address] 26[address] CLIA ID: [id number] POCT ACT Result Date: 03/16/2024 Performed by: [facility] Lab, [address] [place] [address] 35936 CLIA ID: [id number] POCT ACT Result Date: 03/16/2024 Performed by: [facility], [address] [place] [address] 27808 CLIA ID: [id number] ECG 12 lead Sinus rhythm Right axis [...] glucose meter Result Date: 03/16/2024 Performed by: [facility] Lab, [address] [place] [address] 03473 CLIA ID: [id number] POCT glucose meter Result Date: 03/15/2024 Performed by: [facility] Lab, [address] [place] [address] 40133 CLIA ID: [id number] XR chest 1 view Result Date: 03/15/2024 Patient Name: NEIL WELLINGTON : 1970 Exam Date/Time: 03/15/2024 20:23 Procedure: XR CHEST 1 VIEW Ordering Provider: ZAZUETA JOSEPH Reason For Exam: Shortness of breath [...] 03/16/2024 Performed by Maximo Max MD at [facility] Cardiac Cath/EP Lab CARDIAC CATHETERIZATION N/A 03/16/2024 Performed by Maximo Max MD at [facility] Cardiac Cath/EP Lab CARDIAC CATHETERIZATION N/A 03/16/2024 Performed by Maximo Max MD at [facility] Cardiac Cath/EP Lab Allergy(ies): No Known Allergies [...] to SNF/rehab closer to her family in [facility]. Adult diet Regular; 4 carb choices (60 gm/meal); Low Fat/Low Chol/High Fiber/2 gm Na Estimated Creatinine Clearance: 57.3 mL/min (A) (by C-G formula based on SCr of 1.2 mg/dL (H)). BP 103/72 (BP Location: Left arm, Patient Position: Sitting) Pulse 85 Temp 36.1 C (96.9 F) (Temporal) Resp 16 Ht 5' 2 (1.575 m) Wt 199 lb (90.3 kg) [...] with Ophthalmology -Noted plan for discharge to [facility] hospital although patient prefers a facility closer to her family Anticipated homegoing regimen: Lantus/Humalog at [facility]; possibly switch to Trulicity, metformin, and Jardiance on DC to home; resume liset CGM FU with Endocrinology outpatient. Total time 20 minutes which include review of records, counseling, management, and coordination of care as documented in note. Med Team Progress Note Neil Wellington : 1970(53 y.o.) Date: March 24, 2024 Med Team: Viji Attending: Dr. Silverio Chief Complaint: NSTEMI Subjective: - No acute events overnight. - Patient seen and examined at bedside this AM. Patient reportedly refused labs this AM. Discussed this with patient and ultimately was agreeable to lab draw. Patient's auth was accepted for [facility] rehab, currently awaiting a bed becoming available [...] (98.5 F) (Temporal) Resp 16 Ht 5' 2 (1.575 m) Wt 199 lb (90.3 kg) [...] last 24 hours No results found for: WBC, HGB, HCT, PLT, MCV No results found for: NA, K, CL, CO2, BUN, CREATININE, GLUCOSE, CALCIUM, MG, PHOS No results found for: AST, ALT, PROT, BILITOT, ALKPHOS, INR, APTT, LIPASE No results found for: CKTOTAL, CKMB, TROPONINI No results found for: PROCAL, CHOL, TRIG, HDL, TSH, VITD25, HGBA1C, VANCOTROUGH Assessment and Plan: NSTEMI - S/p [facility] (03/16/24) - K[place]LEY to ostial-mid Lcx (85% stenosis) and ostial RCA (80% stenosis), with medical mgmt of mild - moderate disease of LAD disease Plan: - Continue ASA 81 mg daily - Continue Brilinta 90 mg BID - Continue Losartan 50 mg daily - Continue Coreg 6.25 mg BID daily - PT/OT - PT recommending IP Rehab, auth accepted for [facility] rehab, currently awaiting bed - Continue to [...] labs sometime today. 7AM-5PM: contact resident on [facility] Med A (find by hovering over attending's name on left side of patient's chart) 5PM-7AM: contact ZITA bright Department of Internal Medicine Division of Endocrinology, Diabetes, & Metabolism Endocrinology Note Patient Name: Neil Wellington : 1970 AGE: 53 y.o. [facility] Admission Date: 03/15/2024 Visit Date: 03/23/2024 Reason for Endocrine Consult: uncontrolled DM Provider/Team Requesting Consult: Cardiology PCP: Luz Mera Outpt Project Manager Interior Design: No ASSESSMENT: Uncontrolled DM2 Med noncompliance NSTEMI-stents placed 03/16/24 CKD 3 Depression Tobacco abuse HTN/HLP Poor vision Psoriatic arthritis PLAN: Keep lantus to 26 units HS Humalog / units before meals Continue Humalog low dose [...] chief complaint on file. Patient presented to [place] ED with CP radiating down left arm and jaw pain started 03/13/24 Patient transferred from [place] had there -for NSTEMI--for CABG vs stents--patient declines surgery Had heart cath and stents placed at [facility] 03/16/24 EF improved on ANNY after stents placed ( was 44% at [place]) Today patient is resting in bed, barely [...] don't remember Per nursing ate eggs and vincentian toast for BF Interval events BGL below- elevated Resting in bed- tired today VSS RA Flat affect Had all of bfast- eggs and sides (cannot recall) Not sure if she had late snack but maybe did Did eat dinner last night She denies nv abd pain No family in room Denies snacking on M& Ms today Does not want to take home insulins Will plan for this on DC Will go to the [facility] rehab Spoke with nursing Now on F- waiting for rehab bed Type of DM: [...] today's encounter. Labs: No components found for: LABA1C No components found for: EAG Lab Results Component Value Date NA 134 [...] 104 (H) 03/16/2024 No results found for: VLDL Lab Results Component Value Date CHOLHDLRATIO 4 03/16/2024 No results found for: [id number] Lab Results Component Value Date TSH 1.923 03/16/2024 Radiology reportsas per the Radiologist Radiology: POCT glucose meter Result Date: 03/16/2024 Performed by: [email or web address] [facility], [address] [place] [address] CLIA ID: [id number] POCT glucose meter Result Date: 03/16/2024 Performed by: [employer] [facility], [address] [place] [address] 81916 CLIA ID: [id number] POCT ACT Result Date: 03/16/2024 Performed by: [employer] Lab, [address] [place] [address] 41250 CLIA ID: [id number] POCT ACT Result Date: 03/16/2024 Performed by: [email or web address] [facility], [address] [place] [address] 46167 CLIA ID: [id number] POCT ACT Result Date: 03/16/2024 Performed by: [email or web address] [facility], [address] [place] [address] 94280 CLIA ID: [id number] ECG 12 lead Sinus rhythm Right axis [...] glucose meter Result Date: 03/16/2024 Performed by: [email or web address] [facility], [address] [place] [address] 64723 CLIA ID: [id number] POCT glucose meter Result Date: 03/15/2024 Performed by: [employer] [place] [facility], [address] [place] [address] 25095 CLIA ID: [id number] XR chest 1 view Result Date: 03/15/2024 Patient Name: [facility]IL WELLINGTON [facility] 1970 [id number] Exam Date/Time: 03/15/2024 20:23 Procedure: XR CHEST 1 VIEW Ordering Provider: ZAZUETA JOSEPH Reason For Exam: Shortness of breath [...] 03/16/2024 Performed by Maximo Max MD at [facility] Cardiac Cath/EP Lab CARDIAC CATHETERIZATION N/A 03/16/2024 Performed by Maximo Max MD at [facility] Cardiac Cath/EP Lab CARDIAC CATHETERIZATION N/A 03/16/2024 Performed by Maximo Max MD at [facility] Cardiac Cath/EP Lab Allergy(ies): No Known Allergies [...] (96.2 F) (Temporal) Resp 17 Ht 5' 2 (1.575 m) Wt 200 lb 1.6 oz [...] with Ophthalmology -Noted plan for discharge to [facility] Anticipated homegoing regimen: Lantus/Humalog at [facility]; possibly switch to Trulicity, metformin, and [...] the extremities. 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 [...] (99.4 F) (Temporal) Resp 18 Ht 5' 2 (1.575 m) Wt 200 lb 1.6 oz [...] 126 U/L Final No results found for: CKTOTAL, CKMB, TROPONINI No results found for: PROCAL, CHOL, TRIG, HDL, TSH, VITD25, HGBA1C, VANCOTROUGH Assessment and Plan: NSTEMI - S/p [facility] (03/16/24) - KINGSLEY to ostial-mid Lcx (85% stenosis) and ostial RCA (80% stenosis), with medical mgmt of mild - moderate disease of LAD disease Plan: - Continue ASA 81 mg daily - Continue Brilinta 90 mg BID - Continue Losartan 50 mg daily - Continue Coreg 6.25 mg BID daily - PT/OT - PT recommending IP Rehab, referral sent to [facility] rehab - Continue to monitor daily labs [...] should. Endo following 7AM-5PM: contact resident on [facility] Med A (find by hovering over attending's name on [...] Fat Loss: Muscle Mass Loss: Fluid Accumulation: Sexual Health Physician Strength: Nutrition Assessment: Pt with PMH including uncontrolled T2DM, HTN, HLD, CKD stage III, suspected COPD, chronic tobacco abuse with reported 2PPD x40+ years, and obesity presented to [facility] 03/15/24 from [facility] for CABG evaluation after she [...] On: Kcal/kg Weight Used for Energy Requirements: [place] (25-30 kcal/kg) Weight for Energy Calculation (kg): 50 kg Total Energy Requirements (kcals/day): 3863-2825 Weight Used for Protein Requirements: [place] (1.2-1.3 g/kg) Weight in Kg Used for [...] Ordered Anthropometric Measures: Height: 157.5 cm (5' 2) Current Body Weight: 90.3 kg (199 lb) (03/22) Admission Body Weight: 93.5 kg (206 lb 2.1 oz) [facility] Usual Body Weight: (229# on 04/27/23, 221# on 07/31/23) [place] Body Weight (lbs) (Calculated): 110 lbs [place] Body Weight (Kg) (Calculated): 50 kg % [place] Body Weight (Calculated): 184.6 % BMI (kg/m2) [...] to determine Marily Watkins RD, LD Contact: *[phone] or via [employer] Images from the original note were not included. PHYSICAL THERAPY [facility] Treatment Note Name/MRN: Neil Wellington ([id number]) Date of : 1970 Age: 53 y.o. [...] not included. Speech-Language Pathology SPEECH LANGUAGE PATHOLOGY [facility] Language Treatment Note Patient Name: Neil [...] in and pt agreeable to work with CHARTER PILOT while eating. Pt prompted to name the objects on her tray, but noted difficulty with visual deficits. CHARTER PILOT provided the name, pt prompted to provide 1-3 semantic attributes per item - 60% Activity 2: Reading/writing Attempted activity, but pt declined and due to agitation, did not push pt to further participate. Will re-attempt this goal next session. Plan & Recommendations Plan: Continue acute CHARTER PILOT therapy per initial plan of care and [...] 03/19/24 Expected End: 04/02/24 Encounter Problems (Resolved) CHARTER PILOT Misc Misc 1 (Completed) Start: 03/19/24 Expected End: 04/02/24 Resolved: 03/20/24 Goal Note Patient will follow 3 step commands x 80% Therapy Time CHARTER PILOT Individual Minutes Time In: 1237 Time Out: 1250 Minutes: 13 DAVON Mayer Images from the original note were not included. [facility] [place] [facility] CCU PROGRESS NOTE Patient Name: Neil Wellington [...] (97.3 F) (Oral) Resp 18 Ht 5' 2 (1.575 m) Wt 199 lb (90.3 kg) [...] ng/mL Final Coagulation: No results found for: INR, PTT Lipid panel: Lab Results Component Value Date [...] QT Interval 410 QTC Interval 487 P [place] -44 QRS [place] 154 T Wave [place] 96 VA Interval 150 Impression Sinus rhythm Right axis [...] 3:19 PM Assessment/Plan NSTEMI - Presented to [place] ED with substernal chest pain that started on 03/13/24 - Initially placed on nitroglycerin gtt which resolved - Transferred from [place] on 03/15/24 for concern of high-risk PCI and CABG evaluation - EKG NSR with high lateral T wave inversions and no ST depression - Troponin 32.7 ==> 41.6 ==> 37.4 - proBNP elevated to 3,160 [facility] (03/16/24) - KINGSLEY to ostial-mid Lcx (85% [...] 36.9 kg/m . - Disposition: Transfer to [facility] / Telemetry. > [facility] medical perspective Associated attestation - Justine Godwin MD - 03/22/2024 10:56 PM EDT I, Dr. Justine Godwin, saw and evaluated the patient on 03/22/2024. I personally obtained the nino and critical portions of the history and physical exam. I reviewed the medical record including labs, imaging studies, and notes. I discussed the patient with the biomedical electronics technician, and I agree with the resident's medical decision making. 53 y.o. female with uncontrolled diabetes mellitus type 2 (A1c 13.3%), hyperlipidemia, hypertension transferred from [facility] for non-STEMI and multivessel coronary disease. [...] DM Provider/Team Requesting Consult: Cardiology PCP: Luz Mera Outpt Project Manager Interior Design: No ASSESSMENT: Uncontrolled DM2 Med noncompliance NSTEMI-stents placed 03/16/24 CKD 3 Depression Tobacco abuse HTN/HLP Poor vision Psoriatic arthritis PLAN: Keep lantus to 26 units HS Humalog / units before meals Continue Humalog low dose [...] chief complaint on file. Patient presented to [place] ED with CP radiating down left arm and jaw pain started 03/13/24 Patient transferred from [place] had there -for NSTEMI--for CABG vs stents--patient declines surgery Had heart cath and stents placed at [facility] 03/16/24 EF improved on ANNY after stents placed ( was 44% at [facility]) Today patient is resting in bed, barely [...] don't remember Per nursing ate eggs and vincentian toast for BF Interval events BGL below Resting in bed- tired today VSS RA Flat affect Had all of bfast- eggs and sides (cannot recall) Not sure if she had late snack but maybe did Did eat dinner last night Today for lunch- per nursing she had M&M candy before bgl check- now 392 She denies nv abd pain No family in room Does not want to take home insulins Will plan for this on DC Will go to the [facility] rehab Spoke with nursing Type of DM: [...] mentioned in HPI. OBJECTIVE: Vitals: 03/21/24 1659 03/21/24200403/22/24 0222 03/22/24 0847 BP: 138/84 126/70 124/76 [...] today's encounter. Labs: No components found for: LABA1C No components found for: EAG Lab Results Component Value Date NA 135 [...] 104 (H) 03/16/2024 No results found for: VLDL Lab Results Component Value Date CHOLHDLRATIO 4 03/16/2024 No results found for: [id number] Lab Results Component Value Date TSH 1.923 03/16/2024 Radiology reportsas per the Radiologist Radiology: POCT glucose meter Result Date: 03/16/2024 [facility]formed by: [facility], [address] [place] [address]79 CLIA ID: [id number] POCT glucose meter Result Date: 03/16/2024 Performed by: [email or web address] [facility], [address] [place] [address] 94817 CLIA ID: [id number] POCT ACT Result Date: 03/16/2024 Performed by: [email or web address] [facility], [address] [place] [address] 94953 CLIA ID: [id number] POCT ACT Result Date: 03/16/2024 Performed by: [employer] [facility], [address] [place] [address] 34262 CLIA ID: [id number] POCT ACT Result Date: 03/16/2024 Performed by: [facility] [employer] [facility], [address] [place] [address] 26530 CLIA ID: [id number] ECG 12 lead Sinus rhythm Right axis [...] glucose meter Result Date: 03/16/2024 Performed by: [email or web address] [facility], [address] [place] [address] 88628 CLIA ID: [id number] POCT glucose meter Result Date: 03/15/2024 Performed by: [email or web address] [facility], [address] [place] [address] 68265 CLIA ID: [id number] XR chest 1 view Result Date: 03/15/2024 Patient Name: NEIL WELLINGTON : 1970 Exam Date/Time: 03/15/2024 20:23 Procedure: XR CHEST 1 VIEW Ordering Provider: ZAZUETA JOSEPH Reason For Exam: Shortness of breath [...] 03/16/2024 Performed by Maximo Max MD at [facility] Cardiac Cath/EP Lab CARDIAC CATHETERIZATION N/A 03/16/2024 Performed by Maximo Max MD at [facility] Cardiac Cath/EP Lab CARDIAC CATHETERIZATION N/A 03/16/2024 Performed by Maximo Max MD at [facility] Cardiac Cath/EP Lab Allergy(ies): No Known Allergies [...] (96.7 F) (Temporal) Resp 18 Ht 5' 2 (1.575 m) Wt 199 lb (90.3 kg) [...] with Ophthalmology -Noted plan for discharge to [facility] Anticipated homegoing regimen: Lantus/Humalog at [facility]; possibly switch to Trulicity, metformin, and Jardiance on DC to home; resume liset CGM FU with Endocrinology outpatient. Total time 20 minutes which include review of records, counseling, management, and coordination of care as documented in note. Images from the original note were not included. Speech-Language Pathology SPEECH LANGUAGE PATHOLOGY [facility] Language Treatment Note Patient Name: Neil [...] deficit. Plan & Recommendations Plan: Continue acute CHARTER PILOT therapy per initial plan of care and [...] 03/19/24 Expected End: 04/02/24 Encounter Problems (Resolved) CHARTER PILOT Misc Misc 1 (Completed) Start: 03/19/24 Expected End: 04/02/24 Resolved: 03/20/24 Goal Note Patient will follow 3 step commands x 80% Therapy Time CHARTER PILOT Individual Minutes Time In: 1520 Time Out: 1540 Minutes: 20 SALVADOR Teran Images from the original note were not included. PHYSICAL THERAPY [facility] Treatment Note Name/MRN: Neil Wellington ([id number]) Date of : 1970 Age: 53 y.o. [...] DM Provider/Team Requesting Consult: Cardiology PCP: Luz Mera Outpt Project Manager Interior Design: No ASSESSMENT: Uncontrolled DM2 Med noncompliance NSTEMI-stents [...] chief complaint on file. Patient presented to [place] ED with CP radiating down left arm and jaw pain started 03/13/24 Patient transferred from [place] had there -for NSTEMI--for CABG vs stents--patient declines surgery Had heart cath and stents placed at [facility] 03/16/24 EF improved on ANNY after stents placed ( was 44% at [place]) Today patient is resting in bed, barely [...] don't remember Per nursing ate eggs and vincentian toast for BF Interval events BGL below-better [...] for this on DC [facility] stay here Spoke with nursing [...] today's encounter. Labs: No components found for: LABA1C No components found for: EAG Lab Results Component Value Date NA 135 [...] 104 (H) 03/16/2024 No results found for: VLDL Lab Results Component Value Date CHOLHDLRATIO 4 03/16/2024 No results found for: [id number] Lab Results Component Value Date TSH 1.923 03/16/2024 Radiology reportsas per the Radiologist Radiology: POCT glucose meter Result Date: 03/16/2024 Performed by: [facility], [address] [place] [address], [facility] [address] CLIA ID: [id number] POCT glucose meter Result Date: 03/16/2024 Performed by: [facility], [address] [place] [address], [facility] [address] CLIA ID: [id number] POCT ACT Result Date: 03/16/2024 Performed by: [facility], [address] [place] [address] 95285 CLIA ID: [id number] POCT ACT Result Date: 03/16/2024 Performed by: [facility], [address] [place] [address]357 CLIA ID: [id number] POCT ACT Result Date: 03/16/2024 Performed by: [facility] [facility], [address] [place] [address], [facility] [address] CLIA ID: [id number] ECG 12 lead Sinus rhythm Right axis [...] glucose meter Result Date: 03/16/2024 Performed by: [email or web address] [facility], [address] [place] [address], [facility] [address] CLIA ID: [id number] POCT glucose meter Result Date: 03/15/2024 Performed by: [facility] [employer] [facility], [address] [place] [id number] CLIA ID: [id number] XR chest 1 view Result Date: 03/15/2024 [facility]IL [facility] 1970 [id number] Exam Date/Time: 03/15/2024 20:23 Procedure: XR CHEST 1 VIEW Ordering Provider: ZAZUETA JOSEPH Reason For Exam: Shortness of breath [...] 03/16/2024 Performed by Maximo Max MD at [facility] Cardiac Cath/EP Lab CARDIAC CATHETERIZATION N/A 03/16/2024 Performed by Maximo Max MD at [facility] Cardiac Cath/EP Lab CARDIAC CATHETERIZATION N/A 03/16/2024 Performed by Maximo Max MD at [facility] Cardiac Cath/EP Lab Allergy(ies): No Known Allergies [...] higher before dinner. Patient was seen by family living educator today; unable to participate in insulin teaching due to poor vision. Adult diet Regular; 4 carb choices (60 gm/meal); Low Fat/Low Chol/High Fiber/2 gm Na Estimated Creatinine Clearance: 76.1 mL/min (by C-G formula based on SCr of 0.91 mg/dL). BP 138/99 (BP Location: Left arm, Patient Position: Lying) Pulse 87 Temp 36.9 C (98.4 F) (Temporal) Resp 20 Ht 5' 2 (1.575 m) Wt 201 lb 11.5 oz [...] -tobacco cessation -Noted plan for discharge to [facility] Anticipated homegoing regimen: Lantus/Humalog at [facility]; possibly switch to Trulicity, metformin, and Jardiance vs insulin; will resume liset CGM FU with Endocrinology outpatient. Total time 25 minutes which include review of records, counseling, management, and coordination of care as documented in note. Images from the original note were not included. [facility] [place] [facility] CCU PROGRESS NOTE Patient Name: Neil Wellington [...] (98 F) (Temporal) Resp 20 Ht 5' 2 (1.575 m) Wt 201 lb 11.5 oz (91.5 kg) SpO2 94% BMI 36.90 kg/m Intake/Output Summary (Last 24 hours) at 03/21/2024 0722 Last data filed at 03/20/2024 2042 Gross per 24 hour Intake 760 ml [...] ng/mL Final Coagulation: No results found for: INR, PTT Lipid panel: Lab Results Component Value Date [...] QT Interval 410 QTC Interval 487 P Augusta -44 QRS Augusta 154 T Wave [place] 96 VA Interval 150 Impression Sinus rhythm Right axis [...] 3:19 PM Assessment/Plan NSTEMI - Presented to [place] ED with substernal chest pain that started on 03/13/24 - Initially placed on nitroglycerin gtt which resolved - Transferred from [place] on 03/15/24 for concern of high-risk PCI and CABG evaluation - EKG NSR with high lateral T wave inversions and no ST depression - Troponin 32.7 ==> 41.6 ==> 37.4 - proBNP elevated to 3,160 [facility] (03/16/24) - KINGSLEY to ostial-mid Lcx (85% [...] 36.9 kg/m . - Disposition: Transfer to [facility] / Telemetry. > will be ready for [...] notes. I discussed the patient with the biomedical electronics technician, and I agree with the resident's medical decision making. 53 y.o. female with uncontrolled diabetes mellitus type 2 (A1c 13.3%), hyperlipidemia, hypertension transferred from [facility] for non-STEMI and multivessel coronary disease. [...] original note were not included. OCCUPATIONAL THERAPY [facility] Initial Evaluation Name/MRN: Neil Wellington ([id number]) Evaluation Date: 03/20/2024 Date of : 1970 Admission Date: 03/15/2024 7:36 PM Age: 53 y.o. Room/Bed: T1-111/T1-111 A Discharge Recommendation: IP Rehab Equipment Needed: (TBD next level of therapy) Assessment IMPRESSION: Pt admitted to [facility] for NSTEMI and possible stroke affecting the [...] 03/16/2024 Performed by Maximo Max MD at [facility] Cardiac Cath/EP Lab CARDIAC CATHETERIZATION N/A 03/16/2024 Performed by aMximo Max MD at [facility] Cardiac Cath/EP Lab CARDIAC CATHETERIZATION N/A 03/16/2024 Performed by Maximo Max MD at [facility] Cardiac Cath/EP Lab Admission Diagnosis: Patient Active Problem List Diagnosis Date Noted S/P coronary artery stent placement 03/18/2024 Altered mental status, unspecified 03/18/2024 Lacunar cerebrovascular accident (CVA) ([facility]) 03/18/2024 Uncontrolled type 2 diabetes mellitus with hyperglycemia ([facility]) 03/18/2024 NSTEMI (non-ST elevated myocardial infarction) ([facility]) 03/15/2024 Psoriatic arthritis ([facility]) 11/30/2022 Chronic systolic (congestive) heart failure ([facility]) 11/30/2022 Type 2 diabetes mellitus without complication, without long-term current use of insulin ([facility]) ([facility]) 08/17/2022 Cornea ulcer 12/30/2016 SHAN III (cervical [...] Assist Receives Help From: Significant other Active Regional Coordinator: Yes Prior Level of Function ADL Assistance: [...] WFL Strength: Exceptions: R weaker than L, kimo's 3-/5 RUE, 3+/5 LUE Occupational Therapy: Neuro-Vision Assessment Visual Acuity wears glasses at all times and and are being used during the [facility] Impaired Comments: Functional near sight [x] [] Pt able to read words that within arms reach, however when asked to look at therapist's finger that was ~10 inches from face, pt states I cannot see a finger. Possible indication of visual loss at midline. [...] c/o double vision? [] [x] WFL Impaired Lewis 4 Dot Test [] [] Not tested; [...] of Care supervision is transferred to a [facility] Services Occupational Therapist. Goals and/or treatment [...] not included. Speech-Language Pathology SPEECH LANGUAGE PATHOLOGY [facility] Language Treatment Note Patient Name: Neil Wellington Evaluation Date: 03/20/2024 Date of : 1970 Admission Date: 03/15/2024 7:36 PM Age: 53 y.o. Room/Bed: T1-111/T1-111 A Subjective Patient lethargic and cooperative. Seen [...] with letter recognition. Patient continues to state I cannot see anything. Patient states that she is left handed [...] now. Plan & Recommendations Plan: Continue acute CHARTER PILOT therapy per initial plan of care and [...] 03/19/24 Expected End: 04/02/24 Encounter Problems (Resolved) CHARTER PILOT Misc Misc 1 (Completed) Start: 03/19/24 Expected End: 04/02/24 Resolved: 03/20/24 Goal Note Patient will follow 3 step commands x 80% Therapy Time CHARTER PILOT Individual Minutes Time In: 1340 Time Out: 1400 Minutes: 20 SALVADOR Teran Images from the original note were not included. PHYSICAL THERAPY [facility] Treatment Note Name/MRN: Neil Wellington ([id number]) Date of : 1970 Age: 53 y.o. [...] DM Provider/Team Requesting Consult: Cardiology PCP: Luz Mendes Project Manager Interior Design: No ASSESSMENT: Uncontrolled DM2 Med noncompliance NSTEMI-stents [...] Rx Recommendations-- Please continue current insulins to the [facility] rehab Start trulicity 0.75 weekly Jardiance 25 mg po daily Once out of rehab start metformin 500 mg po bid Meter + testing supplies Outpt Follow Up-- PCP SUBJECTIVE/HPI: CHIEF COMPLAINT: No chief complaint on file. Patient presented to [place] ED with CP radiating down left arm and jaw pain started 03/13/24 Patient transferred from [place] had there -for NSTEMI--for CABG vs stents--patient declines surgery Had heart cath and stents placed at [facility] 03/16/24 EF improved on ANNY after stents placed ( was 44% at [facility]) Today patient is resting in bed, barely [...] don't remember Per nursing ate eggs and vincentian toast for BF Interval events BGL below- elevated Resting in chair VSS RA Flat affect Had all of bfast- eggs and cannot remember what else Has bebeto crackers over night Did eat dinner last night- nursing did not give humalog per MAR She denies nv abd pain No family in room Does not want to take home insulins Will plan for this on DC Will go to the [facility] rehab over stay here Spoke with [...] today's encounter. Labs: No components found for: LABA1C No components found for: EAG Lab Results Component Value Date NA 134 [...] 104 (H) 03/16/2024 No results found for: VLDL Lab Results Component Value Date CHOLHDLRATIO 4 03/16/2024 No results found for: [id number] Lab Results Component Value Date TSH 1.923 03/16/2024 Radiology reportsas per the Radiologist Radiology: POCT glucose meter Result Date: 03/16/2024 Performed by: [facility], [address] [place] [id number] CLIA ID: [id number] POCT glucose meter Result Date: 03/16/2024 Performed by: [facility], [address] [place] [address] CLIA ID: [id number] POCT ACT Result Date: 03/16/2024 Performed by: [facility], [address] [place] [address], [facility] [address] CLIA ID: [id number] POCT ACT Result Date: 03/16/2024 Performed by: [facility], [address] [place] [address], [facility] [address] CLIA ID: [id number] POCT ACT Result Date: 03/16/2024 Performed by: [facility], [address] [place] [address], [facility] [address] CLIA ID: [id number] ECG 12 lead Sinus rhythm Right axis [...] glucose meter Result Date: 03/16/2024 Performed by: [facility] [employer] [facility], [address] [place] [address] CLIA ID: [id number] POCT glucose meter Result Date: 03/15/2024 Performed by: [facility], [address] [place] [address], [facility] [address] CLIA ID: [id number] XR chest 1 view Result Date: 03/15/2024 Patient Name: NEIL WELLINGTON : 1970 Exam Date/Time: 03/15/2024 20:23 Procedure: XR CHEST 1 VIEW Ordering Provider: ZAZUETA JOSEPH Reason For Exam: Shortness of breath [...] 03/16/2024 Performed by Maximo Max MD at [facility] Cardiac Cath/EP Lab CARDIAC CATHETERIZATION N/A 03/16/2024 Performed by Maximo Max MD at [facility] Cardiac Cath/EP Lab CARDIAC CATHETERIZATION N/A 03/16/2024 Performed by Maximo Max MD at [facility] Cardiac Cath/EP Lab Allergy(ies): No Known Allergies [...] family would like her to move to [facility] where they can help her. Adult diet Regular; 4 carb choices (60 gm/meal); Low Fat/Low Chol/High Fiber/2 gm Na Estimated Creatinine Clearance: 77.5 mL/min (by C-G formula based on SCr of 0.9 mg/dL). BP 138/95 (BP Location: Left arm, Patient Position: Sitting) Pulse 95 Temp 36.2 C (97.2 F) (Temporal) Resp 18 Ht 5' 2 (1.575 m) Wt 203 lb 14.8 oz [...] -tobacco cessation -Noted plan for discharge to [facility] hospital Anticipated homegoing regimen: Lantus/Humalog at [facility]; switch to Trulicity, metformin, and Jardiance on DC to home; possible insulin?; will resume liset CGM FU with Endocrinology outpatient. Total time 35 minutes which include review of records, counseling, management, and coordination of care as documented in note. Images from the original note were not included. [facility] [place] [facility] CCU PROGRESS NOTE Patient Name: Neil [...] (97.3 F) (Temporal) Resp 20 Ht 5' 2 (1.575 m) Wt 203 lb 14.8 oz [...] ng/mL Final Coagulation: No results found for: INR, PTT Lipid panel: Lab Results Component Value Date [...] QT Interval 410 QTC Interval 487 P Augusta -44 QRS Augusta 154 T Wave August[place] 96 VA Interval 150 Impression Sinus rhythm Right axis [...] 3:19 PM Assessment/Plan NSTEMI - Presented to [place] ED with substernal chest pain that started on 03/13/24 - Initially placed on nitroglycerin gtt which resolved - Transferred from [place] on 03/15/24 for concern of high-risk PCI and CABG evaluation - EKG NSR with high lateral T wave inversions and no ST depression - Troponin 32.7 ==> 41.6 ==> 37.4 - proBNP elevated to 3,160 [facility] (03/16/24) - KINGSLEY to ostial-mid Lcx (85% [...] 37.3 kg/m . - Disposition: Transfer to [facility] / Telemetry. Associated attestation - Justine Godwin MD - 03/20/2024 4:25 PM EDT I, Dr. Justine Godwin, saw and evaluated the patient on 03/20/2024. I personally obtained the nino and critical portions of the history and physical exam. I reviewed the medical record including labs, imaging studies, and notes. I discussed the patient with the biomedical electronics technician, and I agree with the resident's medical decision making. 53 y.o. female with uncontrolled diabetes mellitus type 2 (A1c 13.3%), hyperlipidemia, hypertension transferred from [facility] for non-STEMI and evidence of multivessel [...] not included. Speech-Language Pathology SPEECH LANGUAGE PATHOLOGY [facility] Speech Language Evaluation Patient Name: Neil [...] 03/16/2024 Performed by Maximo Max MD at [facility] Cardiac Cath/EP Lab CARDIAC CATHETERIZATION N/A 03/16/2024 Performed by Maximo Max MD at [facility] Cardiac Cath/EP Lab CARDIAC CATHETERIZATION N/A 03/16/2024 Performed by Maximo Max MD at [facility] Cardiac Cath/EP Lab Admission Diagnosis: Patient Active Problem List Diagnosis Date Noted S/P coronary artery stent placement 03/18/2024 Altered mental status, unspecified 03/18/2024 Lacunar cerebrovascular accident (CVA) ([facility]) 03/18/2024 Uncontrolled type 2 diabetes mellitus with hyperglycemia ([facility]) 03/18/2024 NSTEMI (non-ST elevated myocardial infarction) ([facility]) 03/15/2024 Psoriatic arthritis ([facility]) 11/30/2022 Chronic systolic (congestive) heart failure ([facility]) 11/30/2022 Type 2 diabetes mellitus without complication, without long-term current use of insulin ([facility]) ([facility]) 08/17/2022 Cornea ulcer 12/30/2016 SHAN III (cervical [...] of these findings was made to JUSTINE Crowell BINDU via phone call on 03/18/2024 12:24 PM EDT. Report Dictated on Electronically Signed By: Bartolo Bateman MD Electronically Signed Date/Time: 03/18/2024 12:26 PM EDT History of Present Illness: [facility] Complaint: Chest pain History of Present Illness: Neil Wellington is a 53 y.o. female with significant past medical history of HFrEF (LVEF 40% on TTE 03/15/24), uncontrolled type II diabetes mellitus, hypertension, hyperlipidemia, CKD stage III, suspected COPD, chronic tobacco abuse, and obesity who presented to [facility] 03/15/24 from [facility] as a transfer for CAD management/CABG evaluation. HOSPITAL COURSE : The patient is a 53 y.o. female with PMH HFrEF (LVEF 40% on TTE 03/15/24), uncontrolled type II diabetes mellitus, hypertension, hyperlipidemia, CKD stage III, suspected COPD, chronic tobacco abuse, and obesity that was admitted to the hospital on 03/15/2024 7:36 PM for CAD management/CABG evaluation following presentation to [place] ED with substernal chest pain that started 03/13. LHC 03/16 with KINGSLEY to ostial-mid LCX and ostial RCA. Started on aspirin and brilinta. Altered mental status 03/17 with NIH 0. Endo seeing for controlled DM. Psych saw for concern of apathy. Continued AMS with CT head 03/18 showing concern for strokes. Stroke service consulted. 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 MRI pending at time of transfer. [...] difficulty. Pt would benefit from skilled acute CHARTER PILOT services to address word finding difficulties and [...] this time. Encounter Problems Encounter Problems (Active) CHARTER PILOT [facility] 1 Start: 03/19/24 Expected End: 04/02/24 Goal note on 03/19/24 1526 by Heraclio Wagoner Patient will follow 3-step directions with 80% accuracy Speech/Language/Cognition Patient will name objects/items in environment or functional pictures with 75% accuracy Start: 03/19/24 Expected End: 04/02/24 Patient will participate with evaluation of reading comprehension and graphic expression. Start: 03/19/24 Expected End: 04/02/24 Therapy Time CHARTER PILOT Individual Minutes Time In: 1450 Time Out: 1520 Minutes: 30 Heraclio Wagoner - Speech therapy student [facility] CCU TRANSFER NOTE Name: Neil Wellington : [...] for CAD management/CABG evaluation following presentation to [place] ED with substernal chest pain that started 03/13. LHC 03/16 with KINGSLEY to ostial-mid LCX and ostial RCA. Started on aspirin and brilinta. Altered mental status 03/17 with NIH 0. Endo seeing for controlled DM. Psych saw for concern of apathy. Continued AMS with CT head 03/18 showing concern for strokes. Stroke service consulted. 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 MRI pending at time of transfer. [...] Vol Index is 39 ml/m2. Cardiac Cath ([facility]): 03/17 - Successful IVUS guided PCI of [...] d/w Dr. Milad Cristobal - transfer to Med Team A Department of Psychiatry Consult Service [...] tablet 81 mg 81 mg Oral Daily Christiana Cruz, DO 81 mg at 03/19/24 0943 carvedilol (Coreg) tablet 6.25 mg 6.25 mg Oral BID Deric Farooq, DO 6.25 mg at 03/19/24 0943 dextrose 5 % infusion 100 mL/hr IntraVENous PRN Soumajit Anthony, DO dextrose 50 % solution 12.5 g 12.5 g IntraVENous PRN Soumacarolynnt Anthony, DO enoxaparin (Lovenox) syringe 40 mg 40 mg SubCUTAneous Daily Marah Daren, DO 40 mg at 03/19/24 0943 glucagon (human recombinant) injection 1 mg 1 mg IntraMUSCular PRN Soumacarolynnt Anthony, DO glucose oral gel 15 g 15 g Oral PRN Souelvie Anthony, DO insulin glargine (Lantus) injection 24 Units 24 Units SubCUTAneous Nightly Yaz Eddy, TYPE CASTER - 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 24 Units at 03/18/24 2019 Insulin Lispro [...] Daily Marah Daren, DO 50 mg at 03/19/24 09 naloxone (Narcan) injection 0.4 mg 0.4 mg IntraVENous q5 min PRN Soumajit Anthony, DO nitroglycerin (Nitrostat) SL tablet 0.4 mg 0.4 mg SubLINGual q5 min PRN Soupacarolynnt , DO ondansetron ODT (Zofran-ODT) disintegrating tablet 4 [...] Regular rate, rhythm, volume and articulation Mood: Fine Affect: Dysphoric, constricted but reactive Thought process: Linear, goal directed Thought content: Mood congruent Thought perception: No perceptual abnormalities noted Suicidal ideation:Denies Homicidal ideation: Denies Cognition: oriented to person Memory: Not formally tested Insight: fair Judgment: fair DATA REVIEWED: Encounter Date: 03/15/24 ECG 12 lead Result Value Heart Rate 85 QRSD Interval 90 QT Interval 410 QTC Interval 487 P Augusta -44 QRS August[place] 154 T Wave [place] 96 VA Interval 150 Impression Sinus rhythm Right axis deviation Abnormal T, consider ischemia, lateral leads Electronically Signed On 03-18-2024 17:22:31 EDT by Justine Connolly [employer]: Recent Results (from the past 24 hour(s)) [...] original note were not included. PHYSICAL THERAPY [facility] Initial Evaluation Name/MRN: Neil Wellington ([id number]) Evaluation Date: 03/19/2024 Date of : 1970 [...] 03/16/2024 Performed by Maximo Max MD at [facility] Cardiac Cath/EP Lab CARDIAC CATHETERIZATION N/A 03/16/2024 Performed by Maximo Max MD at [facility] Cardiac Cath/EP Lab CARDIAC CATHETERIZATION N/A 03/16/2024 Performed by Mxaimo Max MD at [facility] Cardiac Cath/EP Lab Admission Diagnosis: Patient Active Problem List Diagnosis Date Noted S/P coronary artery stent placement 03/18/2024 Altered mental status, unspecified 03/18/2024 Lacunar cerebrovascular accident (CVA) ([facility]) 03/18/2024 Uncontrolled type 2 diabetes mellitus with hyperglycemia ([facility]) 03/18/2024 NSTEMI (non-ST elevated myocardial infarction) ([facility]) 03/15/2024 Psoriatic arthritis ([facility]) 11/30/2022 Chronic systolic (congestive) heart failure ([facility]) 11/30/2022 Type 2 diabetes mellitus without complication, without long-term current use of insulin ([facility]) ([facility]) 08/17/2022 Cornea ulcer 12/30/2016 SHAN III (cervical [...] Assist Receives Help From: Significant other Active Regional Coordinator: Yes Prior Level of Function ADL Assistance: [...] Raw Score (No Stairs) : 15 JH-HLM JH-HLM Score: Transferred to chair/commode Plan Pt would [...] 03/19/24 Therapy Time Individual Co-treatment Time In 0905 Time Out 0931 Minutes 26 Timed Code Treatment Minutes: 13 Minutes Padmini Davis PT Patient's Physical Therapy Plan of Care supervision is transferred to a [facility] Therapy Services Physical Therapist. Goals and/or treatment plan was established in collaboration with patient/family/other representatives. PROGRESS NOTE. NEUROCRITICAL CARE Patient Name:Neil Wellington Patient : 1970 Acct: [id number] Date of Admission: 03/15/2024 Room/Bed: T1-111/T1-111 A PCP: Luz Mera Patient location ICU Remains in the hospital [...] mg, 650 mg, Rectal, q4h PRN, Vicki Munozu, DO ALPRAZolam (Xanax) tablet 0.5 mg, 0.5 mg, Oral, Once PRN, Lucrecia Smallwood, DO, 0.5 mg at 03/19/24 1720 aspirin EC tablet 81 mg, 81 mg, Oral, Daily, Soumacarolynnt Anthony, DO, 81 mg at 03/19/24 0943 carvedilol (Coreg) tablet 6.25 mg, 6.25 mg, Oral, BID , Deric Farooq, DO, 6.25 mg at 03/19/24 1718 dextrose 5 % infusion, 100 mL/hr, IntraVENous, PRN, Christiana Cruz, DO dextrose 50 % solution 12.5 g, 12.5 g, IntraVENous, PRN, Christiana Moredu, DO enoxaparin (Lovenox) syringe 40 mg, 40 mg, SubCUTAneous, Daily, Marah Daren, DO, 40 mg at 03/19/24 0943 glucagon (human recombinant) injection 1 mg, 1 mg, IntraMUSCular, PRN, Christiana Cruz, DO glucose oral gel 15 g, 15 g, Oral, PRN, Christiana Moredu, DO insulin glargine (Lantus) injection 26 Units, 26 Units, SubCUTAneous, Nightly, ROSSY Hatch CNP, 26 Units at 03/19/242004 Insulin Lispro (Humalog) injection 0-12 Units, 0-12 Units, SubCUTAneous, TID , Jazmine Caal MD, 6 Units at 03/19/24 1246 Insulin Lispro (Humalog) injection 12 Units, 12 Units, SubCUTAneous, TID Yaz SAUCEDO APRN - CNP ipratropium-albuterol (Duo-Neb) 0.5-2.5 mg/3 mL nebulizer solution 3 mL, 3 mL, Nebulization, TID PRN, Christiana Cruz, DO losartan (Cozaar) tablet 50 mg, 50 mg, Oral, Daily, Marha Daren, DO, 50 mg at 03/19/24 0943 [...] 0.9 % infusion, 5-250 mL/hr, IntraVENous, PRN, Christiana Cruz, DO [COMPLETED] ticagrelor (Brilinta) tablet 180 mg, 180 mg, Oral, Once, 180 mg at 03/16/24 1051 FOLLOWED BY ticagrelor (Brilinta) tablet 90 mg, 90 mg, Oral, BID, Bhavana Brink MD, 90 mg at 03/19/242004 Stroke Specific: Lipids: No results for input(s): CHOL, TRIG, HDL, AMYLASE, LIPASE in the last 72 hours. 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 Thank you Luz Mera for the opportunity to be involved in this patient's care. Department of Internal Medicine Division of Endocrinology, Diabetes, & Metabolism Endocrinology Note Patient Name: Neil Wellington : 1970 AGE: 53 y.o. Room/Bed: [facility] A Admission Date: 03/15/2024 Visit Date: 03/19/2024 Reason for Endocrine Consult: uncontrolled DM Provider/Team Requesting Consult: Cardiology PCP: Luz Mera Outpt Project Manager Interior Design: No ASSESSMENT: Uncontrolled DM2 Med noncompliance NSTEMI-stents [...] chief complaint on file. Patient presented to [place] ED with CP radiating down left arm and jaw pain started 03/13/24 Patient transferred from [place] had there -for NSTEMI--for CABG vs stents--patient declines surgery Had heart cath and stents placed at [facility] 03/16/24 EF improved on ANNY after stents placed ( was 44% at [facility]) Today patient is resting in bed, barely [...] don't remember Per nursing ate eggs and vincentian toast for BF Interval events BGL below- [...] today's encounter. Labs: No components found for: LABA1C No components found for: EAG Lab Results Component Value Date NA 136 [...] 104 (H) 03/16/2024 No results found for: VLDL Lab Results Component Value Date CHOLHDLRATIO 4 03/16/2024 No results found for: [id number] Lab Results Component Value Date TSH 1.923 03/16/2024 Radiology reportsas per the Radiologist Radiology: POCT glucose meter Result Date: 03/16/2024 Performed by: [email or web address] [facility], [address] [place] [id number] CLIA ID: [id number] POCT glucose meter Result Date: 03/16/2024 Performed by: [facility], [address] [place] [address] 14608 CLIA ID: [id number] POCT ACT Result Date: 03/16/2024 Performed by: [facility], [address] [place] [address]185 CLIA ID: [id number] POCT ACT Result Date: 03/16/2024 Performed by: [facility], [address] [place] [address] 21177 CLIA ID: [id number] POCT ACT Result Date: 03/16/2024 Performed by: [facility], [address] [place] [address] 56[address] CLIA ID: [id number] ECG 12 lead Sinus rhythm Right axis [...] glucose meter Result Date: 03/16/2024 Performed by: [facility], [address] [place] [address] 00147 CLIA ID: [id number] POCT glucose meter Result Date: 03/15/2024 Performed by: [facility], [address] [place] [address] 16916 CLIA ID: [id number] XR chest 1 view Result Date: 03/15/2024 Patient Name: NEIL WELLINGTON : 1970 [facility]#: [id number] Exam Date/Time: 03/15/2024 20:23 Procedure: XR CHEST 1 VIEW Ordering Provider: ZAZUETA JOSEPH Reason For Exam: Shortness of breath [...] 03/16/2024 Performed by Maximo Max MD at [facility] Cardiac Cath/EP Lab CARDIAC CATHETERIZATION N/A 03/16/2024 Performed by Maximo Max MD at [facility] Cardiac Cath/EP Lab CARDIAC CATHETERIZATION N/A 03/16/2024 Performed by Maximo Max MD at [facility] Cardiac Cath/EP Lab Allergy(ies): No Known Allergies [...] (97 F) (Temporal) Resp 18 Ht 5' 2 (1.575 m) Wt 203 lb 7.8 oz [...] from the original note were not included. [facility] [place] [facility] CCU PROGRESS NOTE Patient Name: Neil Wellington [...] (Temporal) Resp 18 Ht 1.575 m (5' 2) Wt 92.3 kg (203 lb 7.8 oz) [...] ng/mL Final Coagulation: No results found for: INR, PTT Lipid panel: Lab Results Component Value Date [...] QT Interval 410 QTC Interval 487 P August[place] -44 QRS [place] 154 T Wave [place] 96 VA Interval 150 Impression Sinus rhythm Right axis deviation Abnormal T, consider ischemia, lateral leads Electronically Signed On 03-18-2024 17:22:31 EDT by Justine Connolly Echo: No results found for this or any previous visit. Cath Report: No results found for this or any previous visit. Assessment/Plan NSTEMI - Presented to [place] ED with substernal chest pain that started on 03/13/24 - Initially placed on nitroglycerin gtt which resolved - Transferred from [place] on 03/15/24 for concern of high-risk PCI [...] notes. I discussed the patient with the biomedical electronics technician, and I agree with the resident's medical decision making. 53 y.o. female with uncontrolled diabetes mellitus type 2 (A1c 13.3%), hyperlipidemia, hypertension transferred from [facility] for non-STEMI and evidence of multivessel [...] 2PPD x40+ years, and obesity presented to [facility] 03/15/24 from [facility] for CABG evaluation after she [...] On: Kcal/kg Weight Used for Energy Requirements: [place] (25-30 kcal/kg) Weight for Energy Calculation (kg): 50 kg Total Energy Requirements (kcals/day): 9885-1541 Weight Used for Protein Requirements: [place] (1.2-1.3 g/kg) Weight in Kg Used for [...] CL 102 105 102 105 CO2 29 27 24 24 BUN 19* 21* 22* 16 [...] Ordered Anthropometric Measures: Height: 157.5 cm (5' 2) Current Body Weight: 92.1 kg (203 lb 0.7 oz) (03/18) Admission Body Weight: 93.5 kg (206 lb 2.1 oz) ([facility] 03/15) Usual Body Weight: (229# on 04/27/23, 221# on 07/31/23) [place] Body Weight (lbs) (Calculated): 110 lbs [place] Body Weight (Kg) (Calculated): 50 kg % [place] Body Weight (Calculated): 184.6 % BMI (kg/m2) [...] to determine Marily Watkins RD, LD Contact: *[phone] or via [employer] chat Images from the original note were not included. [facility] [place] [facility] CCU PROGRESS NOTE Patient Name: Neil Wellington [...] (Temporal) Resp 18 Ht 1.575 m (5' 2) Wt 92.1 kg (203 lb 0.7 oz) [...] ng/mL Final Coagulation: No results found for: INR, PTT Lipid panel: Lab Results Component Value Date [...] QT Interval 410 QTC Interval 487 P [place] -44 QRS [place] 154 T Wave [place] 96 VA Interval 150 Impression Sinus rhythm Right axis deviation Abnormal T, consider ischemia, lateral leads ST elevation, consider inferior injury Echo: No results found for this or any previous visit. Cath Report: No results found for this or any previous visit. Assessment/Plan NSTEMI - Presented to [place] ED with substernal chest pain that started on 03/13/24 - Initially placed on nitroglycerin gtt which resolved - Transferred from [place] on 03/15/24 for concern of high-risk PCI [...] notes. I discussed the patient with the biomedical electronics technician, and I agree with the resident's medical decision making. 53 y.o. female with uncontrolled diabetes mellitus type 2 (A1c 13.3%), hyperlipidemia, hypertension transferred from [facility] for non-STEMI and evidence of multivessel [...] Wellington : 1970 AGE: 53 y.o. Room[facility]Bed: [facility] A Admission Date: 03/15/2024 Visit Date: 03/18/2024 Reason for Endocrine Consult: uncontrolled DM Provider/Team Requesting Consult: Cardiology PCP: Luz Mera Outpt Project Manager Interior Design: No ASSESSMENT: Uncontrolled DM2 Med noncompliance NSTEMI-stents [...] chief complaint on file. Patient presented to [place] ED with CP radiating down left arm and jaw pain started 03/13/24 Patient transferred from [place] had there -for NSTEMI--for CABG vs stents--patient declines surgery Had heart cath and stents placed at [facility] 03/16/24 EF improved on ANNY after stents placed ( was 44% at [place]) Today patient is resting in bed, barely [...] don't remember Per nursing ate eggs and vincentian toast for BF Interval events 6-24-24 BGL [...] Intake/Output Summary (Last 24 hours) at 03/18/2024 0925 Last data filed at 03/17/2024 0935 Gross [...] today's encounter. Labs: No components found for: LABA1C No components found for: EAG Lab Results Component Value Date NA 134 [...] 104 (H) 03/16/2024 No results found for: VLDL Lab Results Component Value Date CHOLHDLRATIO 4 03/16/2024 No results found for: [id number] Lab Results Component Value Date TSH 1.923 03/16/2024 Radiology reportsas per the Radiologist Radiology: POCT glucose meter Result Date: 03/16/2024 Performed by: [facility] [employer] [facility], [address] [place] [address] CLIA ID: [id number] POCT glucose meter Result Date: 03/16/2024 Performed by: [facility] [place] [facility], [address] [place] [address] 87324 CLIA ID: [id number] POCT ACT Result Date: 03/16/2024 Performed by: [facility], [address] [place] [address] CLIA ID: [id number] POCT ACT Result Date: 03/16/2024 Performed by: [facility], [address] [place] [address] 8[address]96 CLIA ID: [id number] POCT ACT Result Date: 03/16/2024 Performed by: [facility], [address] [place] [address] 85653 CLIA ID: [id number] ECG 12 lead Sinus rhythm Right axis [...] glucose meter Result Date: 03/16/2024 Performed by: [email or web address] [facility], [address] [place] [address]1827 CLIA ID: [id number] POCT glucose meter Result Date: 03/15/2024 Performed by: [email or web address] [facility], [address] [place] [address]19 CLIA ID: [id number] XR chest 1 view Result Date: 03/15/2024 [facility] 1970 [id number] Exam Date/Time: 03/15/2024 20:23 Procedure: XR CHEST 1 VIEW Ordering Provider: ZAZUETA JOSEPH Reason For Exam: Shortness of breath [...] 03/16/2024 Performed by Maximo Max MD at [facility] Cardiac Cath/EP Lab CARDIAC CATHETERIZATION N/A 03/16/2024 Performed by Maximo Max MD at [facility] Cardiac Cath/EP Lab CARDIAC CATHETERIZATION N/A 03/16/2024 Performed by Maximo Max MD at [facility] Cardiac Cath/EP Lab Allergy(ies): No Known Allergies [...] (97.2 F) (Temporal) Resp 18 Ht 5' 2 (1.575 m) Wt 203 lb 0.7 oz [...] coordination of care as documented in note. [facility] Res[facility] Care Department Progress Note As part [...] from the original note were not included. [facility] CCU PROGRESS NOTE Patient Name: Neil Wellington [...] (Temporal) Resp 17 Ht 1.575 m (5' 2) Wt 92.5 kg (203 lb 14.8 oz) [...] ng/mL Final Coagulation: No results found for: INR, PTT Lipid panel: Lab Results Component Value Date [...] QT Interval 410 QTC Interval 487 P Augusta -44 QRS Augusta 154 T Wave Augusta 96 VA Interval 150 Impression Sinus rhythm Right axis deviation Abnormal T, consider ischemia, lateral leads ST elevation, consider inferior injury Echo: No results found for this or any previous visit. Cath Report: No results found for this or any previous visit. Assessment/Plan NSTEMI - Presented to [place] ED with substernal chest pain that started on 03/13/24 - Initially placed on nitroglycerin gtt which resolved - Transferred from [place] on 03/15/24 for concern of high-risk PCI and CABG evaluation - EKG NSR with high lateral T wave inversions and no ST depression - Troponin 32.7 ==> 41.6 ==> 37.4 - proBNP elevated to 3,160 - CTS consulted - Patient does not want to proceed with bypass surgery [facility] (03/16/24) - KINGSLEY to ostial-mid Lcx (85% [...] cessation and discussed risks for developing recurrent MO; patient refused to stop smoking and understood [...] statin - BP control -- Carvedilol Shine Almendaerz MD Department of Cardiovascular Disease, Division of Heart Failure [facility] [place] 12:23 PM 03/17/24 Addendum: Patient has Class 3 obesity with BMI of 37.1 Shine Almendarez MD Department of Cardiovascular Disease, Division of Heart Failure [facility] [place] [facility] Cardiovascular Medicine Interventional Cardiology Progress Note Today's Date: 03/17/2024 8:23 AM PatientName: Neil Wellington Date of Admission: 03/15/2024 7:36 PM Patient's Age: 53 y.o., 1970 Primary Care Physician: Luz Mera Subjective: No acute events overnight. Patient denies [...] 231 203 187 BMP: Recent Labs 03/15/24224603/16/247 03/17/2448 NA 137 138 133* K 4.1 3.9 4.0 CL 102 105 102 CO2 29 27 24 BUN 19* 21* 22* CREATININE 0.96 0.96 0.89 EGFR 71.3 71.3 78.1 Biomarkers: Recent Labs 03/15/24224603/16/2415603/16/24453 TROPONINI 32.700* 41.600* 37.400* PRO-BNP: Recent Labs 03/15/242246 BNP 3,160* ABGs: No results found for: PHART, PO2ART, OXH8IIC PT/INR: No results for input(s): INR in the last 72 hours. APTT: Recent Labs 03/15/24224603/16/24453 APTT 22.2 27.4 TSH: Lab Results Component Value Date TSH 1.923 03/16/2024 FASTING LIPID PANEL: Lab Results Component Value Date CHOL 173 03/16/2024 Lab Results Component Value Date HDL 39 (L) 03/16/2024 Lab Results Component Value Date LDLCALC 104 (H) 03/16/2024 Lab Results Component Value Date TRIG 150 (H) 03/16/2024 No results found for: CHOLHDL LIVER PROFILE: Results from last 7 days Lab Units 03/17/24 0049 03/16/24 0157 03/15/24 2247 AST U/L 132* 182* 205* ALT U/L 40* 48* 52* Hemoglobin A1C: Lab Results Component Value Date HGBA1C 13.3 (H) 03/16/2024 Iron: No results found for: IRON, TIBC, FERRITIN CXR: XR chest 1 view Final Result [...] any previous visit. No results found for: EFBP, PLVEF, LVEFPHYS, LVEF2D, EF Problem List: Patient Active Problem List Diagnosis NSTEMI (non-ST elevated myocardial infarction) ([facility]) Type 2 diabetes mellitus without complication, without long-term current use of insulin ([facility]/HCC) (HCC) Psoriatic arthritis ([facility]) ASCUS with positive high risk HPV cervical [...] to the referral Associated attestation - Maximo Mxa MD - 03/17/2024 2:38 PM EDT I, [...] acute thrombotic occlusion on original cath from [place], would recommend observing at least one more day in CCU. Plan DAPT, statin on discharge. Images from the original note were not included. [facility] [place] [facility] CCU PROGRESS NOTE Patient Name: Neil Wellington [...] F) Resp 16 Ht 1.575 m (5' 2) Wt 93.5 kg (206 lb 2.1 oz) [...] ng/mL Final Coagulation: No results found for: INR, PTT Lipid panel: Lab Results Component Value Date CHOL 173 03/16/2024 HDL 39 (L) 03/16/2024 TRIG 150 (H) 03/16/2024 Other: No results found for: HGBA1C, TSH Chest Imaging: CXR: === 03/15/24 === XR CHEST 1 VIEW - Impression - Mild vascular congestion. Report Dictated on Electronically Signed By: Jordan Davies DO Electronically Signed Date/Time: 03/15/2024 10:47 PM EDT Cardiac Studies: Telemetry findings reviewed: yes ECG: Encounter Date: 03/15/24 ECG 12 lead Result Value Heart Rate 82 QRSD Interval 91 QT Interval 406 QTC Interval 476 P Augusta 65 QRS Augusta 4 T Wave Augusta 139 VA Interval 162 Impression Sinus rhythm Probable left atrial enlargement Abnormal T, consider ischemia, lateral leads ST elevation, consider inferior injury Echo: No results found for this or any previous visit. Cath Report: No results found for this or any previous visit. Assessment/Plan NSTEMI - Presented to [place] ED with substernal chest pain that started on 03/13/24 - Initially placed on nitroglycerin gtt which resolved - Transferred from [place] for concern of high-risk PCI and CABG evaluation - EKG NSR with high lateral T wave inversions and no ST depression - Troponin 32.7 ==> 41.6 ==> 37.4 - proBNP elevated to 3,160 - [facility] reviewed with ostial LMT disease, mild LAD disease and possible severe ostial stenosis of RCA - CTS consulted - Patient does not want to proceed with bypass surgery - Case discussed with command and control specialist with plan for PCI - NPO this morning for potential PCI this afternoon - Will load with Brilinta 180 mg followed by 90 mg BID - Continue ASA 81 mg daily - Continue heparin drip HFrEF (EF 40% on 03/15/24) Unable to access TTE records from [place] - Will obtain TTE S/p IV Lasix [...] monitor in CCU. Associated attestation - Jase Zazueta DO - 03/16/2024 5:57 PM EDT Pt [...] patient care plan. documented in this encounter [facility] 03-25-2024 Note Referral placed to [facility] 1. [facility] 2. [place] 3. [facility] 4. [facility] 5. [facility] via [facility] per TCC request. Await review and response regarding ability to accept. TCC notified. Electronically signed by KASIA Barajas. [facility] 03-25-2024 Note Referral placed to [facility] via [employer] per TCC request. Await review and response regarding ability to accept. TCC notified. [facility] 03-25-2024 Note Referral placed to [facility] via [facility] per [facility] request. Await review and response regarding ability to accept. [facility] notified. [facility] 03-24-2024 Note [facility] 03-24-2024 Hospital course Narrative Images from the original note were not included. Internal Medicine: Med Team Discharge Summary Neil Wellington : 1970 ADMIT DATE: 03/15/2024 DISCHARGE DATE: 03/27/24 PCP: Luz Mera Visit Status: Admission Code Status: FULL CODE [...] a 53 y.o. female that presented to [facility] on 03/15/2024 and was admitted for NSTEMI. Patient initially presented to [facility] where she was complaining of chest pain radiating to the left arm and jaw that started on 03/13. On arrival to [facility] ED patient hypertensive and the 200s systolic, blood glucose elevated 498, creatinine 1.34, initial Troponin 5221 with delta of 7528, third troponin obtained at 17,010. No signs of ST segment changes on initial EKG. Patient was started on nitroglycerin drip as well as heparin drip. At [facility] she underwent left heart cath which demonstrated LMCA with LAD 30 to 40% stenosis and JULISSA-3 flow, ostial ramus intermedius 60 to 70% stenosis and ostial left circumflex with haziness of around 70%. Mid left's circumflex after M1 segment was also occluded. Based on these findings it was recommended the patient be transferred to [facility] for further management. Patient underwent left heart [...] on smoking cessation documented in this encounter [facility] 03-21-2024 Consult note Formatting of th is note is different from the original. Images from the original note were not included. [facility] CARDIAC THORACIC [facility]ASCULAR INTENSIVE CARE UNIT CTV ICU T1 [address] [facility] [address] Dept: [phone] Loc: [phone] Reason for Visit: No chief complaint on file. Assessment and Plan Problem List Items Addressed This Visit * (Principal) NSTEMI (non-ST elevated myocardial infarction) (HCC) - Primary Relevant Medications nitroglycerin (Nitrostat) SL tablet 0.4 mg ticagrelor (Brilinta) tablet 90 mg carvedilol (Coreg) tablet 6.25 mg Other Relevant Orders Transthoracic echocardiogram (TTE) complete with contrast, bubble, strain, and 3D PRN (Completed) Case Request Knitting Machine Operator: Left heart cath / coronary angiography (Completed) [...] Soumajit Anthony, DO 81 mg at 03/21/24 0814 carvedilol (Coreg) tablet 6.25 mg 6.25 mg Oral BID Deric Farooq, DO 6.25 mg at 03/21/24 0814 dextrose 5 % infusion 100 mL/hr IntraVENous PRN Soumacarolynnt Anthony, DO dextrose 50 % solution 12.5 g 12.5 g IntraVENous PRN Soumajit Anthony, DO enoxaparin (Lovenox) syringe 40 mg 40 mg SubCUTAneous Daily Marah Daren, DO 40 mg at 03/21/24813 glucagon (human recombinant) injection 1 mg 1 mg IntraMUSCular PRN Souelvie Moredu, DO glucose oral gel 15 g 15 g Oral PRN Christiana Moredu, DO insulin glargine (Lantus) injection 26 Units [...] mL 3 mL Nebulization TID PRN Christiana Moredu, DO losartan (Cozaar) tablet 50 mg 50 mg Oral Daily Marah Daren, DO 50 mg at 03/21/24813 naloxone (Narcan) injection 0.4 mg 0.4 mg IntraVENous q5 min PRN Souelvie Moredu, DO nitroglycerin (Nitrostat) SL tablet 0.4 mg 0.4 mg SubLINGual q5 min PRN Christiana Moredu, DO ondansetron ODT (Zofran-ODT) disintegrating tablet 4 mg 4 mg Oral q8h PRN Soumacarolynnt Anthony, DO Or ondansetron (Zofran) injection 4 mg 4 mg IntraVENous q6h PRN Soumacarolynnt Anthony, DO rosuvastatin (Crestor) tablet 40 mg 40 mg Oral Nightly Soumajit Anthony, DO 40 mg at 03/20/241958 sodium chloride 0.9 % infusion 5-250 mL/hr IntraVENous PRN Soumacarolynnt Anthony, DO ticagrelor (Brilinta) tablet 90 mg 90 mg Oral BID Bhavana Brink MD 90 mg at 03/21/24 0814 History reviewed. No pertinent past medical history. Social History Tobacco Use Smoking status: Unknown Smokeless tobacco: Not on file Substance Use Topics Alcohol use: Not on file Past Surgical History: Procedure Laterality Date CARDIAC CATHETERIZATION N/A 03/16/2024 Performed by Maximo Max MD at [facility] Cardiac Cath/EP Lab CARDIAC CATHETERIZATION N/A 03/16/2024 Performed by Maximo Max MD at [facility] Cardiac Cath/EP Lab CARDIAC CATHETERIZATION N/A 03/16/2024 Performed by Maximo Max MD at [facility] Cardiac Cath/EP Lab No family history on [...] Cline MD Associated Order(s): IP CONSULT TO SECONDARY SPANISH TEACHER In Patient DIABETES EDUCATION: Patient instructed in [...] and kwikpen, patient able to perform an air shot, dial up draw up accurate stated doses and self-inject into a model, accurately; Agrees to continue skill, and self-inject ordered doses under staff cytotechnologist supervision. Storage of insulin, Implications for driving now that insulin therapy initiated Effects of steroid use on BG and in the need for the unit trust manager or ordering physician to decrease insulin dosages [...] on insulin in the past, although her friend, would give her 'the shot. Although pt did not elaborate. Instr in [...] to demonstrate insulin pen administration, pt responded no. After explaining the importance, stated no, again. Updated staff cytotechnologist. Will attempt to engage in conversation, tomorrow Associated Order(s): IP CONSULT TO NEUROLOGY INITIAL CONSULT NOTE. NEUROCRITICAL CARE Patient Name: Neil Wellington Patient : 1970 Acct: [id number] Date of Admission: 03/15/2024 Room[facility]: [facility] A PCP: Luz Mera History of Present Ilness: Neil Wellington is a 53 y.o. is right handed female whom presented to [facility] on 03/15/24 from [facility] as a transfer for CAD management/CABG evaluation after sustaining NSTEMI on 03/13/24 with chief complaint of chest pain. Neuro critical care was consulted for acute vs subacute stroke on CT ordered for continuous altered mental status. Complain: word finding difficulty and loss of vision (> 1 week) Evolution: Patient complained of chest pain with radiation to left arm and jaw which started on 03/13/24. She was treated for NSTEMI at [facility]. At [facility] ED, she was notably hypertensive wit initial SPB in 200s which came down to 146. She received nitroglycerin and was started on heparin. Admitted on aspirin, high dose statin, ACEi, and metoprolol. Underwent left heart catheterization. Transferred to [facility]. Patient noted to have disorientation to place, [...] 03/16/2024 Performed by Maximo Max MD at [facility] Cardiac Cath/EP Lab CARDIAC CATHETERIZATION N/A 03/16/2024 Performed by Maximo Max MD at [facility] Cardiac Cath/EP Lab CARDIAC CATHETERIZATION N/A 03/16/2024 Performed by Maximo Max MD at [facility] Cardiac Cath/EP Lab Home Medications: Prior to Admission medications Not on File Current Hospital Medications: Current Facility-Administered Medications: acetaminophen (Tylenol) tablet 650 mg, 650 mg, Oral, q4h PRN, 650 mg at 03/17/242046 OR Acetaminophen (Tylenol) 650 MG/20.3ML solution 650 mg, 650 mg, Oral, q4h PRN OR acetaminophen (Tylenol) suppository 650 mg, 650 mg, Rectal, q4h PRN, Vinuth Koduru, DO aspirin EC tablet 81 mg, 81 mg, Oral, Daily, Soumajit Anthony, DO, 81 mg at 03/18/24923 carvedilol (Coreg) tablet 6.25 mg, 6.25 mg, Oral, BID WC, Deric Farooq, DO, 6.25 mg at 03/18/24923 dextrose 5 % infusion, 100 mL/hr, IntraVENous, PRN, Soumajit Anthony, DO dextrose 50 % solution 12.5 g, 12.5 g, IntraVENous, PRN, Soumajit Anthony, DO glucagon (human recombinant) injection 1 mg, 1 mg, IntraMUSCular, PRN, Soumajit Anthony, DO glucose oral gel 15 g, 15 g, Oral, PRN, Soumajit Anthony, DO insulin glargine (Lantus) injection 24 Units, 24 Units, SubCUTAneous, Nightly, Yaz Eddy, TYPE CASTER - 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 Insulin Lispro (Humalog) injection 0-12 Units, 0-12 Units, SubCUTAneous, TID Jazmine MD, 4 Units at 03/18/24 1335 Insulin Lispro (Humalog) injection 10 Units, 10 Units, SubCUTAneous, TID Jazmine SAUCEDO MD ipratropium-albuterol (Duo-Neb) 0.5-2.5 mg/3 mL nebulizer solution 3 mL, 3 mL, Nebulization, TID PRN, Soumajit Anthony, DO losartan (Cozaar) tablet 50 mg, 50 mg, Oral, Daily, Marah Daren, DO, 50 mg at 06/24/24 0924 naloxone (Narcan) injection 0.4 mg, 0.4 [...] Nightly, Soumajit Anthony, DO, 40 mg at 03/17/242040 sodium chloride 0.9 % infusion, 5-250 mL/hr, IntraVENous, PRN, Soumajit Anthony, DO [COMPLETED] ticagrelor (Brilinta) tablet 180 mg, 180 mg, Oral, Once, 180 mg at 03/16/24 1051 FOLLOWED BY ticagrelor (Brilinta) tablet 90 mg, 90 mg, Oral, BID, Bhavana Brink MD, 90 mg at 03/18/2424 Continuous Infusions: Allergies: Patient has no known [...] -- -- -- -- 1.575 m (5' 2) 03/18/24 1212 137/74 36.2 C (97.2 F) [...] 03/18/2024 Patient Name: NEIL WELLINGTON : 1970 [facility]#: [id number] Exam Date/Time: 03/18/2024 12:02 Procedure: CT HEAD [...] the last week . 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 [...] Team, ., ., . Thank you Luz Mera for the opportunity to be involved in this patient's care. Associated Order(s): IP CONSULT TO PSYCHIATRY Department of Psychiatry Consult Service Resident Consult Note Reason for Consult: Depression, non-compliance with treatment, apathy Requesting Physician: Jazmine Caal MD CHIEF COMPLAINT: No chief complaint on file. History obtained from: patient and past medical records HISTORY OF PRESENT ILLNESS: The patient is a 53 y.o.female with significant past medical history of T2DM, HLD, CAD, HTN, arthritis, tobacco use, and depression who arrived from [facility] after being cared for an NSTEMI. Pt was subsequently transferred to [facility] for high risk PCI vs CABG. Psychiatry [...] 03/16/2024 Performed by Maximo Max MD at [facility] Cardiac Cath/EP Lab CARDIAC CATHETERIZATION N/A 03/16/2024 Performed by Maximo Max MD at [facility] Cardiac Cath/EP Lab CARDIAC CATHETERIZATION N/A 03/16/2024 Performed by Maximo Max MD at [facility] Cardiac Cath/EP Lab CURRENT MEDICATIONS/ALLERGIES: Current Facility-Administered [...] Daily Soumajit Anthony, DO 81 mg at 03/17/24922 carvedilol (Coreg) tablet 6.25 mg 6.25 mg [...] injection 1 mg 1 mg IntraMUSCular PRN Soumajit Anthony, DO glucose oral gel 15 g 15 g Oral PRN Soumajit Anthony, DO insulin glargine (Lantus) injection 18 Units 18 Units SubCUTAneous Nightly ROSSY Mckeon 18 Units at 03/17/242040 Insulin Lispro (Humalog) injection 0-12 Units 0-12 Units SubCUTAneous TID Jazmine Caal MD Insulin Lispro (Humalog) injection 8 Units 8 Units SubCUTAneous TID Jazmine Caal MD ipratropium-albuterol (Duo-Neb) 0.5-2.5 mg/3 mL nebulizer solution 3 mL 3 mL Nebulization TID PRN Soumajit Anthony, DO losartan (Cozaar) tablet 50 mg 50 mg Oral Daily Marah Daren, DO 50 mg at 03/17/24923 melatonin tablet 5 mg 5 mg Oral Nightly Vinuth Koduru, DO 5 mg at 03/17/242040 naloxone (Narcan) injection 0.4 mg 0.4 mg IntraVENous q5 min PRN Soupajit Anthony, DO nicotine (Nicoderm, Step 1) 21 MG/24HR patch 1 patch 1 patch TransDERmal Daily Soumajit Anthony, DO nitroglycerin (Nitrostat) SL tablet 0.4 mg 0.4 mg SubLINGual q5 min PRN [facility] Anthony, DO ondansetron ODT (Zofran-ODT) disintegrating tablet 4 mg 4 mg Oral q8h PRN [facility] Anthony, DO Or ondansetron (Zofran) injection 4 mg 4 mg IntraVENous q6h PRN [facility] Anthony, DO pantoprazole (ProtoNix) EC tablet 40 mg 40 mg Oral q AM Souma, DO 40 mg at 03/17/24922 rosuvastatin (Crestor) tablet 40 mg 40 mg Oral Nightly Soumajit Anthony, DO 40 mg at 03/17/242040 sodium chloride 0.9 % infusion 5-250 mL/hr IntraVENous PRN [facility] Anthony, DO spironolactone (Aldactone) tablet 25 mg 25 mg Oral Daily Marah Daren, DO 25 mg at 03/17/24923 thiamine (Vitamin B1) tablet 100 mg 100 mg Oral Daily Feroz Siddiqui MD 100 mg at 03/17/24 1224 ticagrelor (Brilinta) tablet 90 mg 90 mg Oral BID Bhavana Brink MD 90 mg at 03/17/242040 Allergies: No Known Allergies FAMILY HISTORY: Psychiatric [...] Regular rate, rhythm, volume and articulation Mood: Depressed Affect: Dysphoric, constricted Thought process: Linear, goal [...] QT Interval 410 QTC Interval 487 P Augusta -44 QRS Augusta 154 T Wave Augusta 96 VA Interval 150 Impression Sinus rhythm Right axis [...] Wellington : 1970 AGE: 53 y.o. [facility]: [facility] A Admission Date: 03/15/2024 Visit Date: 03/17/2024 Reason for Endocrine Consult: uncontrolled DM Provider/Team Requesting Consult: Cardiology PCP: Luz Mera Outpt Project Manager Interior Design: No ASSESSMENT: Uncontrolled DM2 Med noncompliance NSTEMI-stents [...] chief complaint on file. Patient presented to [place] ED with CP radiating down left arm and jaw pain started 03/13/24 Patient transferred from [place] had there -for NSTEMI--for CABG vs stents--patient declines surgery Had heart cath and stents placed at [facility] 03/16/24 EF improved on ANNY after stents placed ( was 44% at tanner) Today patient is resting in bed, barely [...] don't remember Per nursing ate eggs and vincentian toast for BF Type of DM: DM2 [...] Weight: 203 lb (92.1 kg) Height: 5' 2 (1.575 m) Physical Exam Vitals reviewed. Constitutional: [...] time. Psychiatric: Comments: States frequently to questions I don't care 24 hour intake/output: Intake/Output Summary (Last 24 [...] today's encounter. Labs: No components found for: LABA1C No components found for: EAG Lab Results Component Value Date NA 133 [...] 104 (H) 03/16/2024 No results found for: VLDL Lab Results Component Value Date CHOLHDLRATIO 4 03/16/2024 No results found for: [id number] Lab Results Component Value Date TSH 1.923 03/16/2024 Radiology reportsas per the Radiologist Radiology: POCT glucose meter Result Date: 03/16/2024 [facility]formed by: [facility], [address] [place] [address] CLIA ID: [id number] POCT glucose meter Result Date: 03/16/2024 Performed by: [email or web address] [facility], [address] [place] [address] CLIA ID: [id number] POCT ACT Result Date: 03/16/2024 Performed by: [facility] [employer] [facility], [address] [place] [address] CLIA ID: [id number] POCT ACT Result Date: 03/16/2024 Performed by: [email or web address] [facility], [address] [place] [address] CLIA ID: [id number] POCT ACT Result Date: 03/16/2024 Performed by: [facility] [employer] [facility], [address] [place] [id number] CLIA ID: [id number] ECG 12 lead Sinus rhythm Right axis [...] glucose meter Result Date: 03/16/2024 Performed by: [facility] [employer] [facility], [address] [place] [address] CLIA ID: [id number] POCT glucose meter Result Date: 03/15/2024 Performed by: [email or web address] [facility], [address] [place] [address] CLIA ID: [id number] XR chest 1 view Result Date: 03/15/2024 Patient Name: NEIL WELLINGTON : 1970 Exam Date/Time: 03/15/2024 20:23 Procedure: XR CHEST 1 VIEW Ordering Provider: ZAZUETA JOSEPH Reason For Exam: Shortness of breath [...] (97.2 F) (Temporal) Resp 16 Ht 5' 2 (1.575 m) Wt 203 lb (92.1 kg) [...] from the original note were not included. [facility]: Cardiothoracic Surgery Consultation Note PATIENT NAME: Neil Wellington : 1970 (53 y.o.) TODAY'S DATE: 03/16/2024 DATE OF ADMISSION: 03/15/2024 7:36 PM Reason for Consult: Multivessel CAD Consulting Provider: Dr. Zazueta Subjective: CC: Chest pain, SOB HPI: 53 yo female with PMH of HFrEF (LVEF 40% on TTE 03/15/24), T2DM, HTN, HPL, CKD stg III, COPD, tobacco use (2PPD), obesity. She presented to [facility] on 03/13/24 with c/o chest pain with radiation to left arm and jaw along with SOB. She had a similar episode approx 1 year ago, underwent cath at [facility], unable to recall if an intervention was performed. In [place] ED workup showed patient was hypertensive with SBP in 200s, BG 498, Cr- 1.34, initial troponin elevated. She underwent a LHC which demonstrated multivessel CAD including LAD 30-40% stenosis and JULISSA 3 flow, ostial ramus intermedius 60-70%, ostial LCx ~70% stenosis, mid-left LCx after OM1 segment occluded. She was transferred to [facility] for high risk PCI vs CABG. Patient [...] of 30 minutes were spent between the lbfv-rm-vdnx encounter, physical exam, reviewing the medical history, coordinating the patient's care, counseling/educating the patient, ordering medications/test/procedures, interpreting results and documenting clinical information in the patients electronic health record on the day of the encounter. The patient was seen and examined independently and relevant data reviewed by myself. A full chart review was performed. Associated attestation - Dario, Yaniv Hallman MD - 03/27/2024 9:12 AM EDT DOS: 03-16-24 I personally performed a tcze-zh-qrsi diagnostic evaluation on this patient I agree with the findings and plan of care as documented by the AMINTA or resident. There has been no change in the physical exam or findings unless otherwise noted below. A total of 80 minutes were spent between the sznl-vu-wfkm encounter, physical exam, reviewing the medical history, coordinating the patient's care, counseling/educating the patient, ordering medications/test/procedures, interpreting results and documenting clinical information in the patients electronic health record on the day of the encounter. The patient was seen and examined independently and relevant data reviewed by myself. A full chart review was performed. documented in this encounter [facility] 03-20-2024 Note [facility] per [facility] request. Await review and response regarding ability to accept. TCC notified. Electronically signed by KASIA Barajas. [facility] 03-20-2024 Note Spoke with patient a t bedside to discuss PT recommendation of IPR. Patient agreeable, choice provided, would like [facility]. Task to [facility] to place referral. [facility] 03-18-2024 Hospital Discharge instructions Henny Chong APRN - 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 - 03/18/2024 10:32 AM EDT Expect a phone call within 72 hours post discharge. If you have questions, issues, or concerns please call or text the Ischemic Heart Disease Hotline, this is a cell phone, # [phone] (available 17/04) Post Cardiac Catheterization/Wrist Site Care Call your doctor with any medication questions or if you notice any side effects from your medications. If you are unable to fill your medications, please call your [employer] Consultant immediately. The office number is located with [...] Means You Should: Call/text the Ischemic hotline [phone] or your doctor's office for further instructions RED ZONE: Medical Alert Chest pain/pressure/discomfort or pain in the neck, jaw, arm, upper back that is lasting longer than 5 minutes OR NOT relieved after nitroglycerin (if prescribed) Severe shortness of breath Passing out or fainting This Means You Should Call 911 Immediately Heart-Healthy Life-Style Modifications Take your medications as prescribed Quit smoking ([email or web address]) Control your blood sugar Treat high-blood pressure Eat a heart-healthy diet, low in saturated and trans-fat, sodium and added sugars Exercise regularly Achieve and maintain a healthy weight Keep your follow-up appointments Ask Your Provider Before You Take New medications Sela-iyq-tydmhqz drugs, nutrition supplements or herbal therapies Avoid [...] Cardiac Rehab The Cardiac Rehab team at [facility] consists of highly skilled exercise physiologists, nurses, [...] your heart. We have facilities at both [facility]. At both locations we have street level parking which is free and our sites are easily accessible. For [facility] you can contact us at . We invite you to call us with your questions or to get started in our program. If you have other questions or concerns be sure to ask your provider during your follow up visit. We look forward to seeing you there. Our locations: [facility] [address] [facility] Ground Floor [id number] - Ground floor Martita Aceves RN - 03/21/2024 10:39 AM EDT Images from the original note were not included. Continuity of Care Form Patient Name: Neil Wellington : 1970 Admit date: 03/15/2024 Discharge date: 03/27/2024 Code Status Order: Full Code Advance Directives: N Admitting Physician: Jase Zazueta DO PCP: Luz Mera Discharging Nurse: TIAN Anders Discharging Hospital Unit/Room#: T1-111/T1-111 A Discharging Unit Phone Number: [phone] Emergency Contact: Extended Emergency Contact Information Primary Emergency Contact: Yanna Jiménez Mobile Relation: Significant Other Preferred language: [place] Local Hazmat Driver needed? No Secondary Emergency Contact: Eliz Quiroga Relation: Brother Past Surgical History: Past Surgical History: Procedure Laterality Date CARDIAC CATHETERIZATION N/A 03/16/2024 Performed by Maximo Max MD at [facility] Cardiac Cath/EP Lab CARDIAC CATHETERIZATION N/A 03/16/2024 Performed by Maxmio Max MD at [facility] Cardiac Cath/EP Lab CARDIAC CATHETERIZATION N/A 03/16/2024 Performed by Maximo Max MD at [facility] Cardiac Cath/EP Lab Immunization History: There is [...] (Temporal) Resp 20 Ht 1.575 m (5' 2) Wt 91.5 kg (201 lb 11.5 oz) [...] assistance Toileting Minimal assistance Feeding Minimal assistance Activities Volunteer Minimal assistance Med Delivery yes Wound Care [...] Date: 03/15/2024 Discharging to Facility/ Agency Name: [facility] Address: [address] [place], [place] [id number] Fax: Dialysis Facility (if applicable) Name: Address: Dialysis Schedule: Phone: Fax: Coagulating Operator/Manager Games signature: ICIAN SECTION Name: Neil Wellington Prognosis: fair Condition at Discharge: stable Rehab Potential (if transferring to Rehab): good, pt declined IPR, wants to go to SNF in [place] Recommended Labs or Other Treatments After Discharge: - will need follow up with endocrinology in [place], diabetes uncontrolled and insulin titrated during inpatient [...] to a nursing facility directly from an [facility] or a unit of a [facility] that is not operated by or licensed by [facility] under section 5119.14 or 5160-3-15.1 5 The individual requires the level of services provided by a nursing facility for the condition for which he or she was treated in the hospital and, Physician Certification: I certify the above information and transfer of Neil Wellington is necessary for the continuing treatment of the diagnosis listed and that she requires [facility] facility for less than 30 days. Update Admission H&P: No change in H&P PHYSICIAN SIGNATURE: The following attachments cannot be sent through Care Everywhere.Heart Healthy Diet ([place]ao [place]an)Dietary Fats ([place]an)Diabetes and Diet ([place]an)Carb Counting for Adults With Diabetes ([place]an)documented in this encounter [facility] 03-15-2024 Note [facility] 03-15-2024 History and physical note Images from the original note were not included. [facility] [place] [facility] CCU HISTORY & PHYSICAL Patient Name: Neil Wellington : 1970 Date of Admission: 03/15/2024 7:36 PM Established attending anesthesiologist: N/A Subjective: Chief Complaint: Chest pain History of Present Illness: Neil Wellington is a 53 y.o. female with significant past medical history of HFrEF (LVEF 40% on TTE 03/15/24), uncontrolled type II diabetes mellitus, hypertension, hyperlipidemia, CKD stage III, suspected COPD, chronic tobacco abuse, and obesity who presented to [facility] 03/15/24 from [facility] as a transfer for CAD management/CABG evaluation. Per [facility] notes, patient complained of chest pain with radiation to left arm and jaw that started 03/13. She described it as pressure and endorsed accompanying shortness of breath. She reported that it starting while doing house chores. She described similar chest pain a year prior for which she underwent catheterization at [facility] but could not recall whether intervention was performed; she was a poor historian. She was unaware of any familial CAD. She is a heavy smoker; 2 PPD for 40+ years. Upon arrival at [facility] ED, she was notably hypertensive with [...] accepted by Dr Max from cardiology at [facility]. Upon inquiry, patient partially reinforced some of [...] Laboratory Tests: BMP: No results found for: NA, K, CL, CO2, BUN, CREATININE, GLUCOSE, CALCIUM, MG, PHOS CBC: No results found for: WBC, HGB, HCT, MCV, PLT Cardiac profile: No results found for: BNP, TROPONINI Coagulation: No results found for: PROTIME, INR, APTT Lipid panel: No results found for: CHOL, HDL, LDLCALC, TRIG Other: No results found for: HGBA1C, TSH Chest Imaging: CXR: CT Chest wo contrast: [...] or any previous visit. Assessment/Plan NSTEMI CAD w/ [facility] 03/15/24 demonstrating extensive LCx and ramus disease Patient presented with symptoms of pressurized chest pain with radiation to left arm and jaw and accompanying shortness of breath, initially placed on nitroglycerin gtt. which resolved initial hypertension on presentation as well as chest pain EKG at [facility] demonstrated no acute ST-T changes; will obtain repeat EKG for re-evaluation here at [facility] demonstrated significant LCx and ramus stenoses; deemed high risk PCI Plan: Will consider CT surgery consult for CABG evaluation tomorrow (03/16) No need for nitroglycerin gtt. currently given lack of chest pain, will have sublingual nitroglycerin 0.4 mg tabs available PRN Initiate heparin gtt. Initiate aspirin 81 mg daily Initiate rosuvastatin 40 mg daily HFrEF (LVEF 40% on TTE 03/15/24) TTE at [facility] demonstrated LVEF 40%; other features not [...] Admit to CCU. Associated attestation - Jase Zazueta DO - 03/16/2024 10:03 AM EDT The patient sustained a NSTEMI and was cared at [facility]. Cath was performed there and [...] patient care plan. documented in this encounter [facility] 04-06-2022 History of Present illness Narrative Discharge [...] (36.5 C) (Oral) Resp 18 Ht 5' 3 (1.6 m) Wt 209 lb (94.8 kg) [...] Patient instructed with demonstrator model in office. [place] The patient return demonstrated: [x] verbally [] self-tested BG SUPPORT MATERIALS The following support materials were provided for patient to take home: [x] Diabetes Education Survival Packet [x] Self-care diary/log for blood glucose and food [] Insulin how to kit [x] Diabetes ID card [x] Nisreen Diabetes Education brochure/ contact card RECOMMENDATIONS INPATIENT PLAN: [] Doorperson Consult this admission for education on CHO diet and diet plan for home [] Would recommend follow -up education at outpatient diabetes education at [facility]. [] An order has been placed [...] it's ordered at discharge . Also advised stiky note to MD for glucometer and supplies [...] catheterization with Dr. Esquivel this morning; per recessing machine operator RN patient will sign consent after explanation from Dr. Jace jacobson. Report given to microbiological lab technician and updated patient will sign consent after explanation from Dr. Esquivel. Will continue to evaluate and note changes. Patient left via wc to microbiological lab technician, pain free. Stable. 1200 PM patient returned from cardiac microbiological lab technician, S/pa heart catheterization. Patient denies any CP or acute SOB. VSS. Lungs clear/dim. Right radial cath site dressing transparen,t dry, and intact. Right radial site remains soft to touch, no numbness or tingling right hand. Hemostasis maintained. Dr. Stone here on patient return; evaluated patient. BR for 2 hours per microbiological lab technician. No acute distress. No CP. [...] any numbness or tingling of right hand, slightly soreper patient. Will continue to evaluate and note changes. Call light in reach. [address] Stone called and Orders received for endocrinology consult. Plana discharge on 04/06/2022. A list of potential PPCs given to patient. Aware needs to choose one before discharge tomorrow for follow up. Will note any changes. Progress Note Date:04/05/2022 Room:[place] [address] Patient Name:Neil Wellington Date of :1970 Age:51 [...] source Oral, resp. rate 18, height 5' 3 (1.6 m), weight 209 lb (94.8 kg), SpO2 96 %. General appearance: alert, appears stated age and cooperative, mildly somnolent s/p return to medical floor from Knitting Machine Operator. HEENT: Head: Normocephalic, no lesions, without obvious [...] PLT 162 197 180 CHEMISTRIES: Recent Labs 04/03/22 0530 04/04/22 0546 04/05/22 0554 NA 139 137 135 K 4.1 3.3* 3.5 CL 104 95 96 CO2 22 25 28 BUN 13 24* 19 CREATININE 0.78 0.89 0.86 GLUCOSE 248* 247* 175* MG -- 2.0 -- PT/INR: Recent Labs 04/03/22 0530 PROTIME 14.0 INR 1.1 APTT: Recent Labs 04/03/22 0530 APTT 27.5 LIVER PROFILE: Recent Labs 04/03/22 0530 04/04/22 0546 AST 22 22 ALT 27 [...] signed. Prepped for procedure and taken to microbiological lab technician. 09 Pt returned to pre/post cath from procedure. [...] name and number provided. NEIL KEMP RD, SHIMON Physical Therapy Med Surg Initial Assessment Facility/Department: [facility] 1 TELEMETRY Room: [facility]/84 NAME: Neil Wellington DOB: 1970 (51 y.o.) CODE STATUS: Full Code Date of Service: 04/04/2022 Patient Diagnosis(es): Tobacco dependence [F17.200] Essential hypertension [I10] Near syncope [R55] H/O noncompliance with medical treatment, presenting hazards to health [Z91.19] Acute congestive heart failure with left ventricular diastolic dysfunction (HCC) [I50.31] New onset of congestive heart failure (HCC) [I50.9] Type 2 diabetes mellitus with hyperglycemia, unspecified whether supervisor gear repair insulin use (HCC) [E11.65] Chief Complaint Patient [...] evaluation Restrictions: Restrictions/Precautions: Fall Risk SUBJECTIVE: Subjective: I'm alright. Pain Pain: Denies pain pre and post [...] Independent (without AD) Transfer Assistance: Independent Active Regional Coordinator: Yes Additional Comments: pt states that lately [...] Restraints Restraints Initially in Place: No Goals: Intermediate Goals cocoa bean cleaner goal 1: NA [facility] (6 CLICK) BASIC MOBILITY AM-PAC Inpatient Mobility [...] OCCUPATIONAL THERAPY EVALUATION - ACUTE NAME: Neil Minor Eliz : 1970 (51 y.o.) CODE STATUS: Full Code Room: [place] [address] Date of Service: 04/04/2022 Patient Diagnosis(es): Tobacco dependence [F17.200] Essential hypertension [I10] Near syncope [R55] H/O noncompliance with medical treatment, presenting hazards to health [Z91.19] Acute congestive heart failure with left ventricular diastolic dysfunction (HCC) [I50.31] New onset of congestive heart failure (HCC) [I50.9] Type 2 diabetes mellitus with hyperglycemia, unspecified whether supervisor gear repair insulin use (HCC) [E11.65] Patient Active Problem List Diagnosis Date Noted Acute congestive heart failure with left ventricular diastolic dysfunction (HCC) 04/03/2022 Past Medical History: Diagnosis Date Diabetes mellitus (HCC) Hypertension History reviewed. No pertinent surgical history. Restrictions Safety Devices: Safety Devices Type of Devices: Call light within reach;Left in bed Patient's date of confirmed: Yes General: Subjective:Pt pleasant and cooperative. I do have to pee. Pain at start of treatment: No Pain [...] Independent (without AD) Transfer Assistance: Independent Active Regional Coordinator: Yes Additional Comments: pt states that lately [...] Exam: 1 deficit Assistance / Modification: supervision [facility] (Six Click) Self care Score How much help for putting on and taking off regular lower body clothing?: None How much help for Bathing?: None How much help for Toileting?: None How much help for putting on and taking off regular upper body clothing?: None How much help for taking care of personal grooming?: None How much help for eating meals?: None AM-PAC Inpatient Daily Activity Raw Score: 24 [facility] Inpatient ADL T-Scale Score : 57.54 ADL [...] nurse Radha of same. Progress Note Date:04/04/2022 Room:[place] [address]- Patient Name:Neil Wellington Date of :1970 Age:51 [...] Intake/Output Summary (Last 24 hours) at 04/04/2022 0845 Last data filed at 04/04/2022 0529 Gross [...] content appropriate Labs/Imaging/Diagnostics Labs: CBC: Recent Labs 04/03/2252904/04/22 0546 WBC 9.2 17.5* RBC 4.67 4.44 HGB 14.7 14.1 HCT 43.0 41.4 MCV 92.1 93.1 RDW 14.4 14.5 PLT 162 197 CHEMISTRIES: Recent Labs 04/03/22 0530 04/04/22 0546 NA 139 137 K 4.1 3.3* CL 104 95 CO2 22 25 BUN 13 24* CREATININE 0.78 0.89 GLUCOSE 248* 247* MG -- 2.0 PT/INR: Recent Labs 04/03/22529 PROTIME 14.0 INR 1.1 APTT: Recent Labs 04/03/22529 APTT 27.5 LIVER PROFILE: Recent Labs 04/03/22 0530 04/04/22 0546 AST 22 22 ALT 27 [...] pressure control. documented in this encounter [facility] [employer] Phone: 04-06-2022 Hospital course Narrative Discharge Summary [...] 2 diabetes mellitus with hyperglycemia, unspecified whether retirement insulin use (HCC) (E11.65) Discharge Diagnosis Principal [...] of diabetic control regimen, as well as tobacco prevention health educator consultation for assistance with education and [...] BE EXCLUDED CLINICALLY. XR CHEST PORTABLEResult Date: 2BORDERLINE CARDIOMEGALY. NO OTHER EVIDENCE OF ACTIVE CARDIOPULMONARY [...] Patient Identification: Neil Wellington : 1970 Account: [id number] Admit date: 04/03/2022 Discharge date: 04/05/2020 Attending [...] (36.8 C) (Oral) Resp 18 Ht 5' 3 (1.6 m) Wt 209 lb (94.8 kg) [...] ELIZ TREJO Gender Female R Patient Number [id number] Race Ethnicity Visit Number [id number] Room Number [id number] Corporate ID Date of Study 04/04/2022 Referring Physician Number Date of 1970 Medical Review Coordinator Quita Del Toro Age 51 year(s) Interpreting [facility] Physician Cardiology Jean-Paul Klein MD Procedure Type [...] ms QTc Calculation (Bazett) 503 ms P Augusta 61 degrees R Augusta -16 degrees T Augusta 60 degrees CBC with Auto Differential Collection [...] ms QTc Calculation (Bazett) 557 ms P [place]a 68 degrees R Augusta -22 degrees T [place]a 224 degrees POCT Glucose Collection Time: 04/03/22 [...] Negative Ketones, Urine Negative Negative mg/dL Specific [place], UA 1.012 1.005 - 1.030 Blood, Urine [...] ms QTc Calculation (Bazett) 497 ms P [place] 62 degrees R Augusta -15 degrees T Augusta 71 degrees CBC Collection Time: 04/05/22 5:54 [...] rhythm Follow-up visits: Callum Esquivel MD [address] [facility] [address] [phone] Call in 4 weeks Schedule an appointment as soon as possible, Hospital follow up SANGEETA Jeronimo [address] [facility] [address] [place] [phone] Schedule an appointment as soon as possible [...] at 8:53 AM documented in this encounter [facility] [employer] Work Phone: 08-17-2021 Note . MICRO - Microbiology [...] Locations *1: This test was performed at: [address], [address]- , [facility] ([place]) 08-17-2021 Note . MICRO - Microbiology PROCEDURE: [...] Locations *1: This test was performed at: [facility], [address] [place] [address], [address] , [facility] ([place]) 08-13-2021 Hospital Discharge instructions Patient Education 08/13/2021 13:20:11 Steps to Quit Smoking, Mpbk-mk-Ugvk Steps to Quit Smoking Smoking tobacco is [...] a prescription, and some you can buy siky-kuk-bvvyrbz. Some medicines may contain a drug called [...] and encourage you. Call a phone quitline (9-738-GCVV-NOW), reach out to support groups, or work [...] 07/08/2010 Document Revised: 11/29/2019 Document Reviewed: 11/30/2019 [employer] Patient Education 2020 [employer] 08/13/2021 13:19:51 Health Risks of Smoking Health [...] these methods. Where to find more information English Lung Association: www.lung.org English Cancer Society: www.cancer.org Summary Smoking cigarettes is [...] 10/19/2005 Document Revised: 12/13/2018 Document Reviewed: 09/15/2017 [employer] Patient Education 2020 [employer] 08/13/2021 13:19:42 COVID-19 Prevent the Spread of COVID-19 If You Are Sick (02/11/2020) (CUSTOM) Prevent the Spread of COVID-19 If You Are Sick Accessible version: https://www.cdc.gov/coronavirus/201 9-ncov/sp-hfl-mnk-sick/wfpwg-bmhe-f ick.html If you are sick with COVID-19 [...] if you have questions about pets: https://www.cdc.gov/coronavirus/201 9ncov/faq.html#LXUQI35kagjdbi Monitor your symptoms. Common symptoms of COVID-19 [...] and need to call 911, notify the bush hog operator that you have or think you [...] clean your hands with an alcohol-based hand sound engineer audio control that contains at least 60% alcohol. Clean your hands often. Wash your hands often with soap and water for at least 20 seconds. This is especially important after blowing your nose, coughing, or sneezing; going to the bathroom; and before eating or preparing food. Use hand sound engineer audio control if soap and water are not available. Use an alcohol-based hand sound engineer audio control with at least 60% alcohol, covering all surfaces of your hands and rubbing them together until they feel dry. Soap and water are the best option, especially if your hands are visibly dirty. \ Avoid touching your eyes, nose, and mouth with unwashed hands. Avoid sharing personal household items. Do not share dishes, drinking glasses, cups, eating utensils, towels, or bedding with other people in your home. Wash these items thoroughly after using them with soap and water or put them in the husbandry technician. Clean all high-touch surfaces everyday. Clean and [...] or body fluids on them. Use household java developer and disinfectants. Clean the area or item [...] Plan DASH Eating Plan DASH stands for Dietary Approaches to Stop Hypertension. The DASH eating plan is a healthy [...] your health care provider or diet and nutrition educator (dietitian) to adjust your eating plan to your individual calorie needs. Reading food labels Check food labels for the amount of sodium per serving. Choose foods with less than 5 percent of the Daily Value of sodium. Generally, foods with less than 300 mg of sodium per serving fit into this eating plan. To find whole grains, look for the word whole as the first word in the ingredient list. Shopping Buy products labeled as low-sodium or no salt added. Buy fresh foods. Avoid canned foods and [...] each week. ?Heart-healthy fats. Healthy fats called Delphia-3 fatty acids are found in foods such [...] Dairy Whole or 2% milk, cream, and kgbs-pzt-nvws. Whole or full-fat cream cheese. Whole-fat or [...] more information: National Heart, Lung, and Blood [place]: www.nhlbi.nih.gov English Heart Association: www.heart.org Summary The DASH eating [...] your health care provider or diet and nutrition educator (dietitian) to adjust your eating plan to your individual calorie needs. This information is not intended to replace advice given to you by your health care provider. Make sure you discuss any questions you have with your health care provider. Document Released: 08/30/2012 Document Revised: 08/24/2018 Document Reviewed: 09/04/2017 [employer] Patient Education 2020 [employer]. 08/13/2021 13:14:11 Heart Failure Heart Failure Heart [...] Follow these instructions at home: Medicines Take jhsd-aja-sordtrc and prescription medicines only as told by [...] 09/11/2006 Document Revised: 08/10/2018 Document Reviewed: 04/05/2017 [employer] Interactive Patient Education 2019 [employer] 08/13/2021 13:14:05 Heart Failure Medicines Heart [...] 01/26/2018 Document Revised: 09/26/2018 Document Reviewed: 01/26/2018 [employer] Patient Education 2020 [employer]. Follow Up Care 08/10/2021 11:45:44 With:SARAH IVERSON APRN-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 Address: [address] [facility] [place] [address]- [phone] When:08/16/2021 14:00:00 With:YAMILETH NOVOA MD Address: [address] [facility] [address] [facility] [place] [address]- [phone] When:08/17/2021 14:30:00 [facility] 08-13-2021 Note . MICRO - Microbiology PROCEDURE: [...] Locations *1: This test was performed at: [facility], [address] [place] [address], [address]- , [facility] ([place]) 08-12-2021 HCoV 229E RNA SHAI+non-probe Ql (Nph) Not Detected *NA* (08/12/21 2:29 PM) Auto Viro/Sero SS 08-09-2021 Evaluation + Plan note Extrac fabio from: Title:History and Physical Author:REDDY JUAN APRN-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 Date:08/09/21 1. Hypertensive emergency 2. SOB - [...] Prophylaxis- Lovenox 40mg Qday. I did briefly certified genetic counselor the patient on smoking cessation and [...] I High Sensitivity Addendum by REDDY JUAN APRN-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 on August 09, 2021 15:49:23 EST Repeat repeat troponin is linear A1c 9.8. Sliding scale added. ADA diet. Metformin 500 mg daily. Dietitian consult placed Lisinopril increased. Coreg added. Echocardiogram completed awaiting results. Diagnostic Tests Pending * Complete Blood Count 08/10/21 [facility] 11-15-2021 Hospital Discharge instructions Follow Up Care 08/09/2021 01:15:23 With:Call Physician Referral Address:Unknown When: Unknown [facility] Discharge summary Author Peter Thompson [facility] Note Date/Time July 09, 2025 1 2:16pm [facility] Medical Records Department [address] [place] [address] Emergency Department Summary 07/09/25 MR#: [id number] Acct: [id number] Name: NEIL WELLINGTON Rep #:[id number] : 1970 54 From: Peter bermudez DO PCP: Luz Mera NP-C Status:REG E R Location: ED HPI [...] deficits Psych: Cooperative, appropriate mood and affect [facility] Medical History Tobacco abuse Hyperlipidemia History of [...] % (Auto) 64.2 Lymph % (Auto) 25.7 [place] % (Auto) 6.8 Eos % (Auto) 2.1 [...] Clarity Clear Urine pH 6.0 Ur Specific [place] 1.010 Urine Protein Negative Urine Glucose (UA) [...] source of the patient's headache. Reading Location: [id number] Discharge Plan Triage Chief Complaint: Headache ED [...] Qty: 60 11RF Primary Care Provider: Luz Mera Referrals: Luz Mera NP-C [Primary Care Provider, Family Practice] - 3-5 Days Activity Restrictions/Additional Instructions: Follow-up with primary care physician. Monitor sugar at home. Return back to ED symptoms change or worsen. Print Language: [place] Disposition Disposition: Home, Self Care What to do if you have Problems For any increased pain, shortness of breath, bleeding, nausea or vomiting, chestpain, or any unexpected problems, contact your Primary Care Provider. Call [facility] ([phone]) or report to the closest Emergency Room. Call 911 if necessary. 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 Hospital Follow Up Appointment Date:08/23/2021 09:30:00 AM Scheduled Provider:BEENA ZAVALA Location:[facility] Appointment Type:CV OV Hospital Follow Up Diagnostic Tests Pending * Culture Respiratory with Gram Stain 08/11/21 [facility] Evaluation note* Diagnosis New onset of congestive heart failure (HCC)- Primary Essential hypertension Unspecified essential hypertension Type 2 diabetes mellitus with hyperglycemia, unspecified whether retirement insulin use ([facility]) Near syncope Syncope and collapse H/O noncompliance with medical treatment, presenting hazards to health Personal history of noncompliance with medical treatment, presenting hazards to health Tobacco dependence Tobacco use disorder Uncontrolled type 2 diabetes mellitus with hyperglycemia ([facility]) documented in this encounter [facility] [employer] Work Phone: evaluation note* Diagnosis Personal history of tobacco use Personal history of tobacco use, presenting hazards to health documented in this encounter [facility] [employer] Phone: evaluation noteNo assessment information available [facility] Work Phone: evaluation note* Diagnosis NSTEMI (non-ST elevated myocardial infarction) ([facility])- Primary Acute myocardial infarction, subendocardial infarction, episode of care unspecified NSTEMI (non-ST elevated myocardial infarction) ([facility]) Acute myocardial infarction, subendocardial infarction, episode of care unspecified Chronic systolic (congestive) heart failure ([facility]) Type 2 diabetes mellitus without complication, without long-term current use of insulin ([facility]/HCC) ([facility]) S/P coronary artery stent placement Postsurgical percutaneous transluminal coronary angioplasty status Altered mental status, unspecified Lacunar cerebrovascular accident (CVA) ([facility]) Uncontrolled type 2 diabetes mellitus with hyperglycemia ([facility]) NSTEMI (non-ST elevated myocardial infarction) ([facility]) Acute myocardial infarction, subendocardial infarction, episode of care unspecified [facility] Diagnosis Sepsis (HCC)- Primary Sepsis secondary to UTI (HCC) Urinary tract infection, site not specified Acute nonintractable headache, unspecified headache type Cerebrovascular accident (CVA), unspecified mechanism (HCC) History of non-ST elevation myocardial infarction (NSTEMI) Old myocardial infarction Cerebral infarction due to posterior cerebral artery occlusion, unspecified blood vessel laterality (HCC) Systolic congestive heart failure, unspecified HF chronicity (HCC) Cerebrovascular accident (CVA) due to bilateral embolism of posterior cerebral arteries (HCC) Hypertension, unspecified type CVA (cerebrovascular accident due to intracerebral hemorrhage) (HCC) Intracerebral hemorrhage Elevated troponin Other abnormal blood chemistry Balint's syndrome Psychophysical visual disturbances Cryptogenic stroke (HCC) Unspecified cerebral artery occlusion with cerebral infarction Cryptogenic stroke (HCC) Unspecified cerebral artery occlusion with cerebral infarction Systolic congestive heart failure, unspecified HF chronicity (HCC) documented in this encounter [facility] Diagnosis Encounter for loop recorder check- Primary documented in this encounter [facility] note* Diagnosis Colon cancer screening Special screening for malignant neoplasms, colon documented in this encounter [facility] course Narrative No data available for this section [facility] Hospital Discharge instructions* Attachments The following attachments cannot be sent through Care Everywhere. * Colon Polyps ([place]ao T[place]an) * Hemorrhoids ([place]) * Colonoscopy: Post op ([place]) * Fiber Foods: General Info ([place]) [facility] Discharge instructionsAdditional Instructions Follow-up with primary care physician. Monitor sugar at home. Return back to ED symptoms change or worsen.[facility] Work Phone: Reason for referral (narrative)* Consultation (Routine) - Closed Specialty Diagnoses / Procedures Referred By Contact Referred To Contact Cardiac Rehabilitation / Cardiology Diagnoses NSTEMI (non-ST elevated myocardial infarction) (HCC) Procedures VA OFFICE/OUTPATIENT [facility] HIGH [facility] 60 MINUTES Henny Chong APRN - 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 [address] [place] [address] [facility] [address] Card/Pulm Rehab [address] [place] [address] Referral ID Status Reason Start Date Expiration Date V isits Requested Visits Authorized [id number] Closed Specialty Services Required 03/18/2024 03/18/2025 1 1 Luis [facility])No reason for referral information [facility]WProtest[facility] Work Phone: Reason for visit Narrative* Auth/Cert Specialty Diagnoses / Procedures Referred By Kelsey hooker Referred To Contact Diagnoses Colon cancer screening Procedures VA COLON CA SCRN NOT HI RSK IND COLORECTAL CANCER SCREENING, NOT HIGH RISK Rima Hammond MD [address] [place] [address] Phone: tel: fax: [facility] [address] [place] [address] Referral ID Status Reason Start Date Expiration Date Visits Re quested Visits Authorized [id number] [facility] Summary Purpose Family History No Family [...] No August 2:27am Living Will No September 16 023 5:50am Power of Belt Splicer No September 16, 2023 5:50am Date Activated Date Inactivated Comments 03/15/2024 8:06 PM 03/27/2024 6:52 PM Date Activated Date Inactivated Comments 03/29/2024 11:32 AM 04/02/2024 5:19 PM Date Activated Date Inactivated Comments 04/03/2022 10:54 AM 04/06/2022 4:24 PM Healthcare Agents on File Name Relationship Healthcare Agent Relationshi p Communication Emerita Wellington Parent Secondary Decision Maker Junaid Wellington Primary [...] Name Relationship Healthcare Agent Relationship Communication Emerita Wellington Parent Secondary Decision Maker Junaid Wellington Primary Decision Maker Valerie Fonseca Brother/Sister Secondary Decision Maker Advance Directive Response Recorded Date/ Time Do you have a Healthcare Power of Belt Splicer? No July 09, 2025 9:04am Advance Directives No August 3:27am Reason for Referral Specialty Diagnoses / Procedures Referred By Kelsey hooker Referred To Contact Radiology Diagnoses Personal history of tobacco use Procedures CT Lung Screen (Annual/Baseline) Luz Mera, TYPE CASTER - 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 [address] [place] [address] Referral ID Status Reason Start Date Expiration Date Visits Re quested Visits Authorized [id number] Closed 12/01/2022 11/30/2023 1 1 Chief Complaint and Reason for Visit Chief Complaint abd pain abd pain, uti Chief Complaint Admit Date HEADACHE July 09, 2025 9 :00am Additional Source Comments INFORMATION SOURCE (unrecogn ized section and content) DATE CREATED AUTHOR 08/24/2021 [facility] ([place]) DATE CREATED AUTHOR AUTHOR'S ORGANIZ ATION 03/28/2024 [facility] DATE CREATED AUTHOR AUTHOR'S ORGANIZ ATION 01/22/2025 [facility] DATE CREATED AUTHOR AUTHOR'S ORGANIZ ATION 06/20/2025 [facility] DATE CREATED AUTHOR AUTHOR'S ORGANIZ ATION 08/07/2025 [facility] DATE CREATED AUTHOR AUTHOR'S ORGANIZ ATION 08/07/2025 [facility] DATE CREATED AUTHOR AUTHOR'S ORGANIZ ATION 08/07/2025 [facility] Reason for Visit (unrecogniz ed section and [...] 2 diabetes mellitus with hyperglycemia, unspecified whether retirement insulin use (H[place]) [place] [address] [place] [address] [facility] [address] [place] [address] Referral ID Status Reason Start Date Expiration Date Visits Re quested Visits Authorized [id number] 1 1 Specialty Diagnoses / Procedures Referred By Contac t Referred To Contact Radiology Diagnoses Personal history of tobacco use Procedures CT Lung Screen (Annual/Baseline) Luz Mera, TYPE CASTER - 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 [address] [place] [address] Referral ID Status Reason Start Date Expiration Date Visits Re quested Visits Authorized [id number] Closed 12/01/2022 11/30/2023 1 1 Specialty Diagnoses / Procedures Referred By Contac t Referred To Contact Diagnoses NSTEMI (non-ST elevated myocardial infarction) ([facility]) CAD Procedures .. Jase Zazueta, DO [address] [place] [address] [address] [place] [address] Referral ID Status Reason Start Date Expiration Date Visits Re quested Visits Authorized [id number] 1 1 Reason Comments Headache X3 days [...] congestive heart failure, unspecified HF chronicity (HCC) [place] [address] [place] [address] [facility] [address] [place] [address] Referral ID Status Reason Start Date Expiration Date Visits Re quested Visits Authorized [id number] 1 1 Ordered Prescriptions (unrec ognized section [...] RN) 0845 (Given - Provider: Daisy Ferrer, TIAN) aspirin EC tablet 81 mg 81 mg, Oral, DAILY, First dose (after last modification) on Mon04/04/22 at 0900, Until Discontinued, Do not crush or break. 0911 (Given - Provider: Radha Michel RN) 0759 (Given - Provider: Rema Loyola RN) 0844 (Given - Provider: Daisy Ferrer, TIAN) atorvastatin (LIPITOR) tablet 40 mg 40 mg, Oral, Nightly, First dose on Mon04/03/22 at 2100, Until Discontinued 2051 (Given - Provider: Viky Christian RN) 2158 (Given - Provider: Kamala Arshad RN) 2099 (Due) carvedilol (COREG) tablet 12.5 mg 12.5 [...] not available) 0846 (Given - Provider: Daisy Ferrer RN) insulin lispro (HUMALOG) injection vial 0-3 Units 0-3 Units, SubCUTAneous, NIGHTLY, First dose on 04/03/22 at 2100, Until Discontinued, If continuous tube [...] MEALS, First dose (after last modification) on 04/03/22 at 1700, Until Discontinued, Low Dose Correction [...] RN) 0845 (Given - Provider: Daisy Ferrer RN)1157 (Given - Provider: Daisy Ferrer RN)1700 (Due) insulin lispro (HUMALOG) injection vial 5 Units 5 Units (rounded from 4.77 Units = 0.05 Units/kg 95.4 kg), SubCUTAneous, 3 TIMES DAILY WITH MEALS, First dose (after last modification) on Mon04/03/22 at 1700, Until Discontinued, Give prior to Pdxuggxvr-Fpduw-Ysvfne only when tray is in room and [...] Michel RN) 0847 (Given - Provider: Daisy Ferrer RN)1157 (Given - Provider: Daisy Ferrer RN)1700 (Due) losartan (COZAAR) tablet 100 mg 100 mg, Oral, DAILY, First dose (after last modification) on Mon04/04/22 at 1000, Until Discontinued 0918 (Given - Provider: Radha Michel RN) 1143 (Given - Provider: Radha Michel RN) 0845 (Given - Provider: Daisy Ferrer, TIAN) nitroglycerin (NITRO-BID) 2 % ointment 0.5 inch [...] Arshad RN) 0850 (Given - Provider: Daisy Ferrer RN)2100 (Due) sodium chloride flush 0.9 % [...] Discontinued 0912 (Given - Provider: Radha Michel RN) 1143 (Given - Provider: Radha Michel RN) 0844 (Given - Provider: Daisy Ferrer RN) PRN Medication Order 04/04/2022 04/05/2022 04/06/2022 [...] 24 hours. 0917 (Given - Provider: Radha Michel RN) acetaminophen (TYLENOL) tablet 650 mg 650 mg, Oral, EVERY 4 HOURS PRN, Starting on Mon04/05/22 at 0942, Until Discontinued, Pain Mild (1-3), Fever, Fever >100.5 F (38 C), Maximum dose of acetaminophen is 4000 mg from all sources in 24 hours., Recovery(Cath) 1141 (Given - Provider: Radha iMchel RN) 0427 (Given - Provider: Page Kay [...] (after last modification) on Mon03/23/24 at 2100 211 (Given - Provider: Gladis Black RN) 2051 [...] Iris Rivas RN)1241 (Given - Provider: Trisha Vaca RN)1700 (Not Given - Provider: Trisha Vaca RN - Reason: Order parameters not met) 1035 (Given - Provider: Martita Aceves RN)1310 (Given - Provider: Martita cAeves RN)1743 (Given - Provider: Martita Aceves RN) 0859 (Given - Provider: Martita Aceves RN)1249 (Given - Provider: Yolanda Raza, TIAN)1700 (Canceled Entry - Provider: Automatic Discharge Provider [...] Trisha Vaca RN)1827 (Given - Provider: Trisha Vaca RN) 1034 (Given - Provider: Martita Aceves RN)1311 (Given - Provider: Martita Aceves RN)1743 (Given - Provider: Martita Aceves RN) 0859 (Given - Provider: Martita Aceves RN)1249 (Given - Provider: Yolanda Raza RN)1700 (Canceled Entry - Provider: Automatic Discharge Provider - Comment: Automatically canceled at discontinue of medication order) losartan (Cozaar) tablet 50 mg 50 mg, Oral, Daily, First dose (after last modification) on 6/23/24 at 0900 0855 (Given - Provider: Iris [...] Black RN) 2051 (Given - Provider: Rebeca Mohr, TIAN) senna-docusate sodium (Senokot-S) 8.6-50 MG tablet 2 [...] Iris Rivas RN)211 (Given - Provider: Gladis Black, TIAN) 1037 (Given - Provider: Martita Aceves RN)2051 (Given - Provider: Rebeca Mohr, TIAN) 0852 [...] 1808 (See Alternative - Provider: Iris Rivas RN)2112 (See Alternative - Provider: Gladis Black RN) 0644 (See Alternative - Provider: Gladis Black RN)0757 (Held by provider - Provider: Shea Lanza, - Reason: Other - Comment: Transient Transaminitis)1505 (Unheld by provider - Provider: Shea Lanza DO)1709 (See Alternative - Provider: Martita Aceves, TIAN) 0401 (See Alternative - Provider: Rebeca Mohr, TIAN) acetaminophen (Tylenol) suppository 650 mg(Linked Group 2) 650 mg, Rectal, Every 4 hours PRN, mild pain (1-3), Starting on 03/16/24 at 1923, Give VA if unable to administer by mouth or feeding tube. If inadequate response within 60 minutes, proceed to next-line agent for same PRN reason or contact provider if no further options ordered. 180 (See Alternative - Provider: Iris Rivas RN)2112 (See Alternative - Provider: Gladis Black RN) 0644 (See Alternative - Provider: Gladis Black RN)0757 (Held by provider - Provider: Shea Lanza, - Reason: Other - Comment: Transient Transaminitis)1505 (Unheld by provider - Provider: Shea Lanza DO)1709 (See Alternative - Provider: Martita Aceves, TIAN) 0401 (See Alternative - Provider: Rebeca Mohr, RN) acetaminophen (Tylenol) tablet 650 mg(Linked Group 2) 650 mg, Oral, Every 4 hours PRN, mild pain (1-3), Starting on 03/16/24 at 1923, If inadequate response within 60 minutes, proceed to next-line agent for same PRN reason or contact provider if no further options ordered. 1808 (Given - Provider: Iris Rivas RN)2112 (Given - Provider: Gladis Black RN) 0644 (Given - Provider: Gladis Black RN)0757 (Held by provider - Provider: Shea Lanza DO - Reason: Other - Comment: Transient Transaminitis)1505 (Unheld by provider - Provider: Shea Lanza DO)1709 (Given - Provider: Martita Aceves, TIAN) 0401 (Given - Provider: Rebeca Mohr, TIAN) dextrose 5 % infusion 100 mL/hr, IntraVENous, [...] pupils, Starting on Mon03/15/24 at 1958, +++notify telecommunications linesworker provider if used+++ nitroglycerin (Nitrostat) SL tablet [...] / long duration, Starting on Mon03/15/24 at 1958, For piggyback infusion, administer at same rate [...] mg (COMPLETED) 180 mg, Oral, Once, On 6/22/24 at 1045, For 1 dose Followed by [...] (1-3), Starting on 03/16/24 at 1923, Give VA if unable to administer by mouth or [...] further options ordered. Scheduled Medication Order 03/31/2024 04/01/202404/02/2024 aspirin EC tablet 81 mg 81 mg, Oral, DAILY, First dose on Mon03/29/24 at 1139, Until Discontinued 937 (Given - Provider: Ayana Gaffney RN) 823 (Held - Provider: Agrelia Daniel RN - Reason: Pt NPO) 930 (Given - Provider: Carmen Kaye, TIAN) atorvastatin (LIPITOR) tablet 40 mg 40 mg, Oral, NIGHTLY, First dose on Mon03/29/24 at 2100, Until Discontinued 2002 (Given - Provider: Misti Saucedo RN) 1950 (Given - Provider: Misti Saucedo RN) 2099 (Due) bacteriostatic water injection 30 mL 30 mL, IntraVENous, ONCE, 1 dose, On Mon04/01/24 at 1045, Brand Name: Bacteriostatic water, Generic Name: Bacteriostatic water, Form: Injection, Length of Therapy: once, Reason for Non-Formulary Order: not present in order options to select, How Soon Needed? (normally takes 72 hrs. to procure): GORGE, Please send down to pre/post cath 1456 (Canceled Entry - Provider: Aung Rodriguez RN) carvedilol (COREG) tablet 6.25 mg 6.25 mg, Oral, 2 TIMES DAILY, First dose on Mon03/29/24 at 1139, Until Discontinued, Administer with food to minimize the risk of orthostatic hypotension 937 (Given - Provider: Ayana Gaffney RN)2002 (Given - Provider: Misti Saucedo RN) 823 (Held - Provider: Argelia Daniel RN - Reason: Pt NPO)1950 (Given - Provider: Misti Saucedo RN) 930 (Given - Provider: Carmen Kaye RN)2099 (Due) [...] (Due - Provider: Leny Haddad [facility]) empagliflozin (JARDIANCE) tablet 10 mg 10 mg, Oral, DAILY, First dose on Mon03/29/24 at 1139, Until Discontinued, Indication of Use: Type 2 diabetes, Heart Failure (preserved EF) 0938 (Given - Provider: Ayana Gaffney RN) 0825 (Held - Provider: Argelia Daniel RN - Reason: Pt NPO) 0931 (Given - Provider: Carmen Kaye RN) insulin [...] RN - Reason: Order parameters not met) 2099 (Due) insulin lispro (HUMALOG,ADMELOG) injection vial 0-8 [...] Patient not available - Comment: 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, 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)175 (Given - Provider: Argelia Daniel RN) 0931 (Not Given - Provider: Carmen Kaye RN - Reason: Order parameters not met)1238 (Given - Provider: Catia Murillo, TIAN)1700 (Due) insulin lispro (HUMALOG,ADMELOG) injection vial 5 Units 5 Units (rounded from 5.01 Units = 0.05 Units/kg 100.2 kg), SubCUTAneous, 3 TIMES DAILY WITH MEALS, First dose on Mon03/29/24 at 1230, Until Discontinued, Give prior to [place] only when tray is in room and [...] parameters not met)1715 (Given - Provider: Catia Murillo, TIAN) 0825 (Not Given - Provider: Argelia Daniel RN - Reason: Pt NPO)1210 (Not Given - Provider: uAng Rodriguez RN - Reason: Patient not available - Comment: 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 0938 (Given - Provider: Ayana Gaffney, TIAN)2002 (Given - Provider: Misti Saucedo, TIAN) 0826 (Held - Provider: Argelia Daniel RN - Reason: Pt NPO)1950 (Given - Provider: Misti Saucedo, TIAN) 0931 [...] 1126, Intra-procedure(Cath) 1126 (Given - Provider: Fara Newman DO) dextrose 10 % infusion IntraVENous, at [...] 1232, Intra-op 1128 (Given - Provider: Catia Vargas RN)1130 (Given - Provider: Catia Vargas, TIAN)1133 (Given - Provider: Catia Vargas, TIAN) glucagon injection 1 mg 1 mg, SubCUTAneous, [...] 1232, Intra-procedure(Cath) 1216 (Given - Provider: Fara Newman DO) lidocaine viscous hcl (XYLOCAINE) 2 % solution (CANCELED) PRN, Starting on Mon04/01/24 at 1125, Until Mon04/01/24 at 1232, Intra-procedure(Cath) 1125 (Given - Provider: Catia Vargas, TIAN) midazolam (VERSED) injection (CANCELED) IntraVENous, PRN, Starting on Mon04/01/24 at 1128, Until Mon04/01/24 at 1232, Intra-procedure(Cath) 1128 (Given - Provider: Catia Vargas, TIAN)1130 (Given - Provider: Catia Vargas, TIAN)1133 (Given - Provider: Catia Vargas, TIAN) oxyCODONE (ROXICODONE) immediate release tablet 5 mg 5 mg, Oral, EVERY 4 HOURS PRN, Starting on Mon03/29/24 at 1143, Until Discontinued, Pain Moderate (4-6), Pain Severe (7-10) 0254 (Given - Provider: Santa Storey, TIAN)1137 (Given - Provider: Ayana Gaffney, TIAN)2002 (Given - Provider: Misti Saucedo, TIAN) 0148 (Given - Provider: Misti Saucedo RN)195 (Given - Provider: Misti Saucedo RN) 042 (Given - Provider: Misti Saucedo RN) polyethylene [...] on Mon07/14/25 at 0956, For 1 dose, ClickJenn: cabinet override 1000 (Due) Care Teams (unrecognized sec tion and content) Financial Report Service Sales Agent Relationship Specialty Start Date End Date Ricky Hendricks MD [address] [place] [id number] PCP - General 09/16/15 04/04/22 Financial Report Service Sales Agent Relationship Specialty Start Date End Date Luz Mera, TYPE CASTER - 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 [address] [place], [place] [id number] PCP - General Family Nurse Practitioner 04/13/22 Team Status: Active Member Role Status Dates JAMIE BUCHANAN Family Provider Active LUZ MERA Primary Care Provider Active Team Status: Inactive Member Role Status Dates Dr. Elmer Gomes , Attending Provider, Kristen galicia Active No Primary Care Physician Primary Care Provider Active Team Status: Inactive Member Role Status Dates Dr. Yaniv Tarango , DO Emergency Provider Active SAMARIA RUDOLPH Primary Care Provider Active Financial Report Service Sales Agent Relationship Specialty Start Date End Date Luz Mera [address] [place] [address], [address] [place] [address] PCP - General Family Nurse Practitioner 03/15/24 Financial Report Service Sales Agent Relationship Specialty Start Date End Date Luz Mera TYPE CASTER - 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 [address] [place] [address] [address] [place] [address] PCP - General Family Nurse Practitioner 04/13/22 Financial Report Service Sales Agent Relationship Specialty Start Date End Date Luz Mera TYPE CASTER - 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 [address] [place] [id number] PCP - General Family Nurse Practitioner 04/13/22 Financial Report Service Sales Agent Relationship Specialty Start Date End Date Luz Mera TYPE CASTER - 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 [address] [place] [id number] PCP - General Family Nurse Practitioner 04/13/22 Financial Report Service Sales Agent Relationship Specialty Start Date End Date Luz Mera TYPE CASTER - 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 [address] [place] [id number] PCP - General Family Nurse Practitioner 04/13/22 Financial Report Service Sales Agent Relationship Specialty Start Date End Date Luz Mera TYPE CASTER - 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 [address] [place] [id number] PCP - General Family Nurse Practitioner 04/13/22 Financial Report Service Sales Agent Relationship Specialty Start Date End Date Luz Mera TYPE CASTER - 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 [address] [place] [id number] PCP - General Family Nurse Practitioner 04/13/22 Financial Report Service Sales Agent Relationship Specialty Start Date End Date Luz Mera TYPE CASTER - QUIQUE [address] [place] [address] PCP - General Family Nurse Practitioner 04/13/22 Financial Report Service Sales Agent Relationship Specialty Start Date End Date Samaria Luz Crowell TYPE CASTER Janeth LEI [address] [place] [address] PCP - General Family Nurse Practitioner 04/13/22 Team Status: Active Member Role/Relationship Status Dates REBECCA Parra Primary care physician Active Team Status: Inactive Member Role/Relationship Status Dates CHRISSIE ParraC Primary care physician Active Start: July 09, 2025 End: July 09, 2025 Dr. Peter Thompson DO Attending physician Active Start: July 09, 2025 End: July 09, 2025 Dr. Peter Thompson DO Emergency Department Physician Active Start: July 09, [...] BE BASED ON THE PRIMARY CLINICAL RECORDS. [facility]. provides no warranty or guarantee of the accuracy or completeness of information in this document.
--- NOTE | 2025-08-23 01:42 | EDS_ITS ---
HPI History of Present Illness Chief Complaint: Lower Extremity Injury Narrative Narrative: Patient was seen and examined after presenting to ED for right ankle pain she is mostly in a wheelchair states that she is unsure of how she could have injured it but she has been having pain for a couple days now. [facility] Medical History Tobacco abuse Hyperlipidemia History of non-ST elevation myocardial infarction (NSTEMI) Obesity (BMI 30-39.9) Visual disturbance Psoriasis HTN (hypertension) Diabetes Home Medications ?Medication ?Instructions ?Recorded ?Last Taken ?Type HumaLOG KwikPen Insulin See Rx Instructions subcut 3 XD 07/18/24 Unknown History DIABETES aspirin 81 mg chewable tablet 1 tab PO DAILY heart hea lth 07/18/24 Unknown History buspirone 7.5 mg tablet 7.5 mg PO BID mental health 07/18/24 Unknown History carvedilol 6.25 mg tablet 6.25 mg PO BID blood pressur e 07/18/24 Unknown History empagliflozin 10 mg tablet 10 mg PO DAILY diabetes Unknown History (Jardiance) insulin glargine 100 unit/mL (3 26 unit subcut QPM steff betes 07/18/24 Unknown History mL) subcutaneous pen (Lantus Solostar U-100 Insulin) losartan 50 mg tablet 50 mg PO DAILY blood pressur e 07/18/24 Unknown History ropinirole 0.5 mg tablet 0.5 mg PO TID restless leg 1 Unknown History sertraline 25 mg tablet 25 mg PO DAILY mental health 07/18/24 Unknown History ticagrelor 90 mg tablet (Brilinta) 90 mg PO BID anti p latelet 07/18/24 Unknown History atorvastatin 40 mg tablet 80 mg (2 x 40 mg) PO DAILY 3 0 days 07/20/24 Unknown Rx #60 tabs meclizine 12.5 mg tablet 12.5 mg PO TID PRN PRN Dizzi ness 07/20/24 Unknown Rx #20 tabs amlodipine 5 mg tablet 5 mg PO BID #60 tabs 4 Unknown Rx Allergy/AdvReac Type Severity Reaction Status Date / Time No Known Allergies Allergy Verified 08/23/25 00:30 Surgical History History of nasal surgery Hx of lymph node biopsy Hx of cholecystectomy Social History Smoking Status: Current every day smoker tobacco type: cigarettes ROS ROS ED ROS Narrative Pertinent Positives: Right ankle pain mostly wheelchair-bound Pertinent Negatives: Fevers chills new swelling numbness tingling The remainder of review of systems negative unless otherwise stated in the HPI above. Systems reviewed including constitutional, psychiatric, cardiovascular, respiratory, integument, HENT, gastrointestinal. EXAM Physical Exam Narrative Exam Narrative: Patient is afebrile hemodynamically stable does not appear toxic or in distress she has intact and equal MSPs no fibular head involvement. Compartments are otherwise soft no open wounds or lesions no necrotizing process or vesicular lesions or cellulitic appearance she does have pain on palpation of the malleolus on her lateral side of the right ankle nothing involving the medial aspect nothing involving the base of the fifth metatarsal Const Vital Signs: 08/23/25 00:30 Temperature 97.9 F Temperature Source Temporal Pulse Rate 70 Respiratory Rate 18 Blood Pressure 139/76 H Blood Pressure Mean 97 Pulse Ox 96 Oxygen Delivery Method Room Air MDM MDM MDM Narrative Medical decision making narrative: Nursing notes, triage notes, available previous documentation, and vital signs were reviewed. Any discrepancies noted were addressed. Differential Diagnoses: Will evaluate for any fractures low suspicion for dislocation does not seem to be an infectious process or necrotizing process not compartment syndrome low suspicion for DVT Imaging Reviewed: Personally reviewed and interpreted by me: Right ankle x-ray I do not see any obvious bony abnormality such as a dislocation or fracture the official interpretation is agreeable Previous Documentation Reviewed: None available or applicable at this time. ED Course: Patient presenting with right ankle pain she does have some mild swelling overlying that ankle she still has full range of motion no obvious bony abnormalities no obvious infectious process at this point time patient stable for discharge return precautions follow-up recommendations provided. This note was made utilizing voice recognition software. All attempts were made to correct spelling or other errors prior to note completion. However, due to the fast-paced nature of emergency medicine, some errors may still be present. Radiography Diagnostic Testing: Clinical Impression(s) from Imaging Studies Ankle X-Ray 08/23/25 00:40 IMPRESSION: Soft tissue edema and swelling. [facility] Discharge Plan Triage Chief Complaint: Lower Extremity Injury ED Provider: Edyta Crowley Dx/Rx/DC Orders Clinical Impression: Ankle pain, right, Injury of ankle, right, Right ankle sprain Instructions: ED Ankle Sprain (Adult) Prescriptions: No Action ticagrelor [Brilinta] 90 mg tablet 90 mg PO BID losartan 50 mg tablet 50 mg PO DAILY carvedilol 6.25 mg tablet 6.25 mg PO BID ropinirole 0.5 mg tablet 0.5 mg PO TID sertraline 25 mg tablet 25 mg PO DAILY buspirone 7.5 mg tablet 7.5 mg PO BID aspirin 81 mg tablet,chewable 1 tab PO DAILY Jardiance 10 mg tablet 10 mg PO DAILY insulin glargine [Lantus Solostar U-100 Insulin] 100 unit/mL (3 mL) insulin pen 26 unit subcut QPM HumaLOG KwikPen Insulin pen injector See Rx Instructions subcut 3XD Protocol: 4. Sliding Scale Insulin High-Med Dosing Condition: 150-199 mg/dl = 2 units Condition: 200-259 mg/dl = 4 units Condition: 260-324 mg/dl = 6 units Condition: 325-374 mg/dl = 8 units Condition: 375-409 mg/dl = 10 units Condition: 410-449 mg/dl = 11 units Condition: Greater than 449 call physician Protocol Text: Suggested for: - Patients on Total Daily Insulin Dose of 56-80 units - Patient who are known to be insulin resistant or septic HIGH MEDIUM DOSING ALGORITHM Rx Instructions: SLIDING SCALE subcutaneously 3 times daily; SLIDING SCALE REFER TO SLIDING SCALE meclizine 12.5 mg Tablet 12.5 mg PO TID PRN PRN (Reason: Dizziness) Qty: 20 0RF atorvastatin 40 mg tablet 80 mg PO DAILY 30 Days Qty: 60 0RF amlodipine 5 mg tablet 5 mg PO BID Qty: 60 11RF Primary Care Provider: Luz Mera Referrals: Luz Mera, CLIENT EXPERIENCE SPECIALIST-C [Primary Care Provider, Family Practice] Activity Restrictions/Additional Instructions: Be sure to follow-up with your primary care doctor you can go ahead and ice it is much as you can tolerate please return if you are having worsening symptoms Print Language: Bhutanese Disposition Disposition: Home, Self Care
--- NOTE | 2025-08-23 02:12 | ED.RN ---
[facility] CALL[facility] FOR A RIDE BACK TO [facility]
[2025-08-23 02:18] VITALS: BP 126/72; PULSE 66; RESP 16; TEMP 36.7; O2SAT 96
--- NOTE | 2025-08-23 02:18 | NURSING ---
Samantha VALERIO called and given report to RN. Notified pt will leave here around 0313. DC paper work to go with pt.
== END 2025-08-23 03:10 | disposition home or self-care (01) ==
PROVIDERS: Emergency Provider Specialist/Technologist Athletic Trainer; PCP Nurse Practitioner Family; Visit Provider Specialist/Technologist Athletic Trainer
DX: S93.401A Sprain of unspecified ligament of right ankle, initial encounter (principal); E11.9 Type 2 diabetes mellitus without complications; Z79.4 Long term (current) use of insulin; M25.571 Pain in right ankle and joints of right foot; E78.5 Hyperlipidemia, unspecified; I10 Essential (primary) hypertension; I25.2 Old myocardial infarction; Z79.82 Long term (current) use of aspirin; Z79.84 Long term (current) use of oral hypoglycemic drugs; Z79.899 Other long term (current) drug therapy; Z90.49 Acquired absence of other specified parts of digestive tract; F17.210 Nicotine dependence, cigarettes, uncomplicated
CPT/HCPCS: 73610; 99284